=== PATIENT | male | born 1960 | race Caucasian/White ===

== ENCOUNTER 2016-07-10 11:23 | Inpatient (IN) | payer MEDICAID, OTHER ==
[~2016-07-10] VITALS: Ht 165.1 cm; Wt 60.0 kg
[~2016-07-10 11:23] MED LIST: ACID1TAB14 PO; AMLO-218 PO; CARV6.2579 PO; CIPR500T4 PO; DOXY100T2 PO; LANT3I SC; LAS20 PO; OMEP20CA16 PO
[2016-07-10 15:37] VITALS: BP 103/61; PULSE 66; RESP 19
[2016-07-10] MEDS ORDERED: ERGO500037 PO ×2 (17:04→17:17)
[2016-07-10] MEDS ORDERED: FER325 PO (17:04)
[2016-07-10] MEDS ORDERED: BUME1TAB18 PO (17:04)
[2016-07-10] MEDS ORDERED: TAMS0.4C2 PO (17:05)
[2016-07-10] MEDS ORDERED: FINA5TAB4 PO (17:05)
[2016-07-10] MEDS ORDERED: NIFE30TA60 PO (17:06)
[2016-07-10] MEDS ORDERED: NIFE60TA7 PO (17:10)
[2016-07-10] MEDS ORDERED: PANT40TA3 IV (17:11)
[2016-07-10] MEDS ORDERED: LORA0.5T IV* (17:12)
[2016-07-10] MEDS ORDERED: MORP2SYR IV (17:13)
[2016-07-10] MEDS ORDERED: ONDA-43 IV* (17:14)
[2016-07-10] MEDS ORDERED: ALBUTEROL/IPRATROPIUM (NEB) 3 ML AMP HHN PRN (17:30)
[2016-07-10] MEDS ORDERED: DEXTROSE 50% 50 ML SYRINGE IV PRN ×2 (17:30)
[2016-07-10] MEDS ORDERED: GLUCAGON 1 MG INJ IM PRN (17:30)
[2016-07-10] MEDS ORDERED: LORAZEPAM 2 MG INJ IV PRN (17:30)
[2016-07-10] MEDS ORDERED: NA PHOSPHATE/BIPHOS 133 ML ENEMA PR PRN (17:30)
[2016-07-10] MEDS ORDERED: MAGNESIUM HYDROXIDE 30ML CUP PO PRN (17:30)
[2016-07-10] MEDS ORDERED: NACL 0.9% 3 ML SYG IV SCH (17:30)
[2016-07-10] MEDS ORDERED: GLUCOSE GEL 15 GRAM TUBE BUCCAL PRN (17:30)
[2016-07-10] MEDS ORDERED: NITROGLYCERIN (SL) 0.4 MG TAB SL PRN (17:30)
[2016-07-10] MEDS ORDERED: ACETAMINOPHEN 325 MG TAB PO PRN (17:30)
[2016-07-10] MEDS ORDERED: GLUCOSE GEL 15 GRAM TUBE PO PRN ×2 (17:30)
[2016-07-10] MEDS ORDERED: DOCUSATE SODIUM 100 MG CAP PO PRN (17:30)
[2016-07-10] MEDS ORDERED: HYDROCODONE/APAP (5/325) TAB PO PRN (17:30)
[2016-07-10] MEDS: morphine 2 MG INJ IV PRN ×2 (18:27→22:21)
[2016-07-10] MEDS ORDERED: VANCOMYCIN IV PER PHARMACY XX SCH (18:30)
[2016-07-10 18:41] LABS: INR 1.17; PARTIAL THROMBOPLASTIN TIME 32.7 Sec (25.0-35.0); PT RATIO 1.2
--- NOTE | 2016-07-10 19:21 | HP ---
DATE OF ADMISSION: 07/10/2016 REASON FOR ADMISSION: A 56-year-old male sent over from an outside hospital due to insurance purposes for sepsis, urinary tract infection, and spinal abscess. HISTORY OF PRESENT ILLNESS: A 56-year-old male with past medical history of type 2 diabetes, essential hypertension, and possible liver cirrhosis, who was recently treated at [facility] and transferred here today/ He was there from 07/07/2014 until today, was being treated for sepsis secondary to UTI , positive enterococcus urine culture. Also, renal insufficiency and also spinal abscess. Most of the information is obtained from the transfer documentation. The patient gives a limited history. He had an MRI of the L- spine performed over there that did show diskitis and osteomyelitis in the L2- L3 region. There is a 1.8-cm left psoas abscess, probable epidural phlegmon abscess in the L2-L3 region. As well, he had a CT abdomen and pelvis performed that showed third spacing throughout the body and L3 vertebral body fracture and deterioration, with sclerosis as well. The patient was given IV antibiotics including Zosyn and vancomycin there, as well as blood pressure medicines. Presently, he says he is having some lower extremity pain, but is able to move his extremities and has been voiding, although he says he may have been passing blood clots over there. He also had some abnormal labs over there including a BNP of 44,000, and a chest x-ray did show a 2-mm granuloma in the left lower lobe as well. PAST MEDICAL HISTORY: As stated above. ALLERGIES: NO KNOWN DRUG ALLERGIES. MEDICATIONS: At the outside hospital include: 1. Iron sulfate 325 mg. 2. Flomax 0.4 mg. 3. Nifedipine 30 mg at night and 60 mg in the morning. 4. [place] p.r.n. 5. Omeprazole 20 mg. 6. Bumex 1 mg p.o. 7. Vancomycin IV dosing per pharmacy. 8. Morphine 1 mg IV q. 4 p.r.n. 9. Ativan p.r.n. 10. Tylenol 650 p.o. q.6h. p.r.n. 11. Ergocalciferol. 12. He was also on finasteride. SOCIAL HISTORY: Former alcohol user, never smoked. No IV drug abuse. Used to live at home with his sister. FAMILY HISTORY: Noncontributory. PHYSICAL EXAMINATION: VITAL SIGNS: T-max 98.5, pulse 66, respirations 19, blood pressure 103/61, saturating 100% on room air. GENERAL: The patient is lying in bed, answering questions appropriately, slightly lethargic but alert. HEENT: Pupils equal, round, react to light. Extraocular muscles are intact. NECK: Supple, no thyromegaly. LUNGS: Clear to auscultation bilaterally. CARDIOVASCULAR: S1, S2 heard. No rubs or gallops. ABDOMEN: Soft, nontender, nondistended. Normal bowel sounds. No rebound or guarding. MUSCULOSKELETAL: 1+ pitting edema bilateral lower extremities to the mid calves. NEUROLOGIC: Weak lower extremities, but able to move all extremities. No signs of any focal deficits. Sensation appears to be intact bilateral lower extremities and upper extremities. Gait was not assessed. LABS: On 07/09/2016, his WBC was 3.2, hemoglobin 7.2, hematocrit 22, and platelets were 74. His UA on July 08 was positive for nitrites and was turbid and was positive for large leukocyte esterase as well, and there was some blood noted. His urine culture is greater than 100,000, apparently Enterobacter. Do not have sensitivities. We mentioned the imaging result studies as mentioned above. Lipase was normal on 07/08/2016. His BNP on 2016 was 44,568. ASSESSMENT AND PLAN: This is a 56-year-old male transferred from outside hospital due to sepsis secondary to urinary tract infection, enterococcus, and renal insufficiency, questionable history of hypertension, diabetes, and cirrhosis, and also now with a spinal abscess. 1. Sepsis. Again, most likely secondary to combination of urinary tract infection and possible spinal abscess. Spoke with the neurosurgery team. For now, we are going to do conservative management as the patient does not appear to have any focal deficits or signs of any significant spinal stenosis. There is some mild stenosis seen on the imaging; however, patient is neurologically intact at this point, and he is urinating. We will follow up neurosurgery recommendations. May repeat the MRI of the L-spine as well. Will continue broad-spectrum antibiotics, cefepime and vancomycin, and get an infectious disease consult as well. This will treat both the UTI and hopefully the spinal abscess. Will check TSH, A1c, and lipid panel as well. Will also get a renal consult given his renal insufficiency. Continue Bumex for now given his anasarca. May need to workup his questionable liver cirrhosis that was seen on the imaging study. It is unclear if the patient has had a prior history of cirrhosis. 2. For his diabetes type 2, put him on sliding scale insulin. Check A1c. 3. Hypertension, Blood pressure stable. Continue current medications. 4. History of anemia. Last hemoglobin known is 7.2. Will check repeat, check a stat CBC. If there are any abnormalities, will give him blood transfusion. 5. Questionable hematuria. Will continue to monitor for now. 6. Gastrointestinal prophylaxis; PPIs. 7. Deep venous thrombosis prophylaxis; SCDs. Dictated By: PHANI STOVALL Conf#: [id number] DID#: [id number] MTDD
[2016-07-10 19:25] LABS: BASOPHILS % 0.4 % (0.0-2.0); EOSINOPHILS # 0.1 10^3/ul (0.0-0.5); EOSINOPHILS % 2.5 % (0.0-7.0); HEMATOCRIT 21.2 % (42.0-52.0); HEMOGLOBIN 7.2 g/dl (14.0-18.0); LYMPHOCYTES # 1.2 10^3/ul (0.8-2.9); LYMPHOCYTES % 37.3 % (15.0-51.0); MEAN CORPUSCULAR HEMOGLOBIN 29.4 pg (29.0-33.0); MEAN CORPUSCULAR HGB CONC 33.8 g/dl (32.0-37.0); MEAN CORPUSCULAR VOLUME 86.8 fl (82.0-101.0); MONOCYTE # 0.2 10^3/ul (0.3-0.9); MONOCYTES % 7.2 % (0.0-11.0); NEUTROPHIL # 1.6 10^3/ul (1.6-7.5); NEUTROPHILS % 52.6 % (39.0-77.0); PLATELET COUNT 112 10^3/UL (140-440); RED BLOOD COUNT 2.44 10^6/ul (4.70-6.10); RED CELL DISTRIBUTION WIDTH 17.4 % (11.5-14.5); UNCORRECTED WBC 3.1 10^3/ul (4.8-10.8); WHITE BLOOD COUNT 3.1 10^3/ul (4.8-10.8)
[2016-07-10 19:37] LABS: CONDITION 1; LH ANALYZER COMMENTS 1
[2016-07-10 20:00] LABS: ADD UMIC YES; URINE BILIRUBIN (Dip) NEGATIVE (NEGATIVE); URINE BLOOD (Dip) 2+ (NEGATIVE); URINE COLOR LT. YELLOW (YELLOW); URINE GLUCOSE (Dip) NEGATIVE (NEGATIVE); URINE KETONES (Dip) NEGATIVE (NEGATIVE); URINE LEUKOCYTE ESTERASE (Dip) 1+ (NEGATIVE); URINE NITRITE (Dip) NEGATIVE (NEGATIVE); URINE TOTAL PROTEIN (Dip) 2+ (NEGATIVE); URINE UROBILINOGEN (Dip) 0.2 E.U./dL (0.1-1.0)
[2016-07-10 20:24] LABS: BACTERIA,URINE FEW; SQUAMOUS EPITHELIAL CELL,UR MODERATE
[2016-07-10] MEDS: INSULIN ASPART [NOVOLOG] 3 ML PEN SC SCH (21:00)
[2016-07-10 21:03] VITALS: BP 146/70; RESP 16
[2016-07-10] MEDS: CEFEPIME 2GM/50 ML (PMX) 50 ML IVPB SCH (21:25)
[2016-07-10 21:29] LABS: IRON 43 ug/dl (35-150)
[2016-07-10] MEDS: LACTOBACILLUS CHEW TAB PO SCH (21:29)
[2016-07-10 21:38] LABS: TOTAL IRON BINDING CAPACITY 163 ug/dl (241-421)
[2016-07-10] MEDS: INSULIN GLARGINE [LANtus] 3 ML PEN SC SCH (21:51)
[2016-07-10 22:27] VITALS: BP 141/86; PULSE 67
[2016-07-11] MEDS: INSULIN ASPART [NOVOLOG] 3 ML PEN SC SCH ×6 (01:00→21:00)
--- NOTE | 2016-07-11 01:43 | RADRPT ---
PROCEDURE: CT lumbar spine without contrast CLINICAL INDICATION: Back pain. TECHNIQUE: A CT scan of the lumbar spine was performed without intravenous contrast. Coronal and s agittal reformatted images were generated. CTDIvol: 10.75 mGy. DLP: 425.51 mGy-cm. COMPARISON: None available FINDINGS: The lumbar lordosis is preserved without spondylolisthesis. The vertebral body heights are maintain ed. No fracture or subluxation is identified. T12-L1 and L1-L2: There is no significant degenerative change. No spinal canal stenosis or neural f oraminal narrowing is seen. L2-L3: There is mild disk bulging at this level and increased lucency in the central disk substance. Lytic lucencies are seen in the adjacent L2 and L3 vertebral bodies, and the L3 vertebral body is sclerotic. There is no spinal canal stenosis at this level. Mild left neural foraminal narrowing is noted due to disk bulging. L3-L4 and L4-L5: There is no significant degenerative change. No spinal canal stenosis or neural fo raminal narrowing is seen. L5-S1: There are bilateral L5 pars defects, grade 1 L5 anterolisthesis (6 mm), and moderate bilatera l neural foraminal narrowing at L5-S1. No spinal canal stenosis is seen at this level. The left psoas muscle is asymmetrically enlarged. There are multiple pancreatic calcifications, cons istent with chronic pancreatitis. . IMPRESSION: 1. At L2-L3, there is lucency in the central disk substance, lytic lucencies in the adjacent L2 and L3 vertebral bodies, and sclerosis of the L3 vertebral body. These findings are suspicious for dis kitis osteomyelitis. There is also asymmetric enlargement of the left psoas muscle, suspicious for myositis. An epidural or paraspinal abscess cannot be excluded. Correlation with contrast enhanced l umbar spine MRI is recommended. 2. Bilateral L5 pars defects, grade 1 L5 anterolisthesis, and moderate bilateral neural foraminal n arrowing at L5-S1. 3. Chronic pancreatitis. RPTAT: HTAR .Dejuan Gibbs MD, MD Date Time Electronically viewed and signed by .Dejuan Gibbs MD, on 07/11/2016 01:43 .R/
[2016-07-11] MEDS: morphine 2 MG INJ IV PRN ×6 (02:22→23:38)
--- NOTE | 2016-07-11 02:28 | RADRPT ---
PROCEDURE: MR Lumbar Spine. CLINICAL INDICATION: Back pain. TECHNIQUE: An MRI of the lumbar spine was performed without intravenous contrast. Sagittal T2, sag ittal T1, sagittal fat suppressed T2, axial proton density, axial T2-weighted images were obtained. The examination was performed on a 3.0 Senait MRI scanner. COMPARISON: Lumbar spine CT performed on the same date. FINDINGS: The examination is extremely limited by signal loss and artifact related to radiofrequency coil malf unction. There is abnormal T2 hyperintensity within the posterior inferior L2 vertebral body, corresponding t o the lytic lucency seen on the lumbar spine CT. There are bilateral L5 pars defects, grade 1 L5 ant erolisthesis, and mild to moderate bilateral neural foraminal narrowing at L5-S1. IMPRESSION: 1. Extremely limited examination due to signal loss and artifact related to radiofrequency coil malf unction. The L2-L3 level is inadequately imaged. A repeat contrast-enhanced lumbar spine MRI is re commended to evaluate for suspected L2-L3 diskitis osteomyelitis and left psoas myositis. 2. Bilateral L5 pars defects, grade 1 L5 anterolisthesis, and mild to moderate bilateral neural fora fred narrowing at L5-S1. RPTAT: HTAR .Dejuan Gibbs MD, MD Date Time Electronically viewed and signed by .Dejuan Gibbs MD, on 07/11/2016 02:27 .R/
[2016-07-11] MEDS: PANTOPRAZOLE 40 MG INJ IV SCH (05:21)
[2016-07-11 07:30] VITALS: BP 171/94; RESP 17
[2016-07-11] MEDS: BUMETANIDE 1 MG TAB PO SCH (08:46)
[2016-07-11] MEDS: FERROUS SULFATE (EC) 325 MG TAB PO SCH (08:46)
[2016-07-11] MEDS: AMLODIPINE 10 MG TAB PO SCH (08:46)
[2016-07-11] MEDS: LACTOBACILLUS CHEW TAB PO SCH ×3 (08:46→21:34)
[2016-07-11] MEDS ORDERED: FUROSEMIDE 20 MG TAB PO SCH (09:00)
--- NOTE | 2016-07-11 09:24 | CONS ---
DATE OF ADMISSION: 07/10/2016 DATE OF CONSULTATION: 07/10/2016 TYPE OF CONSULTATION: Infectious Disease. REASON FOR CONSULTATION: Antibiotic management. HISTORY OF PRESENT ILLNESS: Larry Rios is a 56-year-old unfortunate male who was transf erred from [facility] with a variety of problems and is being seen for antibiotic managem ent. Past problems include: 1. Adult-onset diabetes mellitus. 2. Essential hypertension. 3. Alcoholic cirrhosis of the liver. The patient was recently treated at [facility] from 07/07/2016 until 07/10/2016. He was treated for sepsis secondary to urinary tract infection which was positive for enterococcus. He als o had spinal abscess as well as renal insufficiency. He had an MRI of the L-spine that showed diski tis and osteomyelitis of L2-L3 region. There was 1.8 cm left psoas abscess, probable epidural phleg mon abscess in the L2-L3 region. He had a CT scan of the abdomen and pelvis which was performed nolberto t showed third spacing throughout the body and L3 vertebral body fracture with deterioration and scl erosis. The patient was started on vancomycin and Zosyn as well as blood pressure medication. He i s having some lower extremity pain and is able to move his extremities and has been voiding, althoug h he may have been passing blood clots in his urine. He had a BNP of 44,000. Chest x-ray showed a 2 mm granuloma in the left lower lobe. On 07/09/2016 his white count was 3.2, H and H was 7.2 and 2 2, platelet count 74,000. UA on the was positive for nitrite, was turbid, positive for large l eukocyte esterase with blood noted. His urine grew greater than 10 to the 5th Enterobacter. PAST MEDICAL HISTORY: Operations as outlined. FAMILY HISTORY: Noncontributory. SOCIAL HISTORY: He is a former alcohol abuser, did not smoke, no IV drug abuse. ALLERGIES: NONE TO PENICILLIN, SULFA OR FOODS. MEDICATIONS: Per chart. REVIEW OF SYSTEMS: Noncontributory. PHYSICAL EXAMINATION: GENERAL: The patient is a chronically ill-appearing male who is lying in bed in no acute distress. VITAL SIGNS: Stable. He is afebrile. SKIN: Without generalized rash. HEENT: Within normal limits. NECK: Supple. LYMPH NODES: None palpable. CHEST: Decreased breath sounds at the bases. HEART: Without murmur or gallop. ABDOMEN: Soft, nontender, without organosplenomegaly or masses. EXTREMITIES: He has edema in bilateral lower extremities that goes to the mid calf. RECTAL AND GENITAL: Deferred. NEUROLOGIC: He has some weakness in his lower extremities but has no focal neurological abnormaliti es. IMPRESSION AND PLAN: The patient has sepsis secondary to a combination of urinary tract infection a nd spinal epidural abscess. The neurosurgical team was contacted. He has some mild stenosis, but i s intact at the present time. I think we should encourage neurosurgery to be aggressive in terms of his epidural abscess and will continue him on vancomycin and cefepime. He should have some drainag e of the fluid collections, the abscesses either by invasive radiology or by neurosurgery. I will d ictate my findings to the hospitalist. Dictated By: PARDEEP VAZQUEZ MD, JD/ERICKA Conf#: [id number] DID#: [id number]
[2016-07-11 10:08] LABS: BASOPHILS % 0.5 % (0.0-2.0); EOSINOPHILS # 0.1 10^3/ul (0.0-0.5); EOSINOPHILS % 3.8 % (0.0-7.0); HEMATOCRIT 27.4 % (42.0-52.0); HEMOGLOBIN 9.3 g/dl (14.0-18.0); LYMPHOCYTES % 30.1 % (15.0-51.0); MEAN CORPUSCULAR HEMOGLOBIN 29.5 pg (29.0-33.0); MEAN CORPUSCULAR HGB CONC 34.1 g/dl (32.0-37.0); MEAN CORPUSCULAR VOLUME 86.5 fl (82.0-101.0); MEAN PLATELET VOLUME 6.9 fl (7.4-10.4); MONOCYTE # 0.2 10^3/ul (0.3-0.9); MONOCYTES % 7.1 % (0.0-11.0); NEUTROPHIL # 1.9 10^3/ul (1.6-7.5); NEUTROPHILS % 58.5 % (39.0-77.0); PLATELET COUNT 118 10^3/UL (140-440); RED BLOOD COUNT 3.16 10^6/ul (4.70-6.10); RED CELL DISTRIBUTION WIDTH 16.6 % (11.5-14.5); UNCORRECTED WBC 3.2 10^3/ul (4.8-10.8); WHITE BLOOD COUNT 3.2 10^3/ul (4.8-10.8)
[2016-07-11 10:13] LABS: CONDITION 1; LH ANALYZER COMMENTS 1
[2016-07-11 10:27] LABS: POTASSIUM 5.2 mmol/L (3.5-5.1)
[2016-07-11 10:30] LABS: CALCIUM 7.5 mg/dl (8.4-10.2); CREATININE 2.51 mg/dl (0.61-1.24); PHOSPHORUS 5.1 mg/dl (2.5-4.9)
[2016-07-11 10:31] LABS: CHOL/HDL RATIO 2.2 RATIO; MAGNESIUM 1.9 mg/dl (1.7-2.5)
--- NOTE | 2016-07-11 12:18 | PREOPHP ---
DATE OF ADMISSION: 07/10/[address] Reyes, for asking me to participate in medical management of this patient. HISTORY OF PRESENT ILLNESS: This 56-year-old man was transferred from [facility] because of a lumbar spine diskitis and possible abscess. The patient is Vietnamese speaking and unable to giv e much of a history; however, from previous notes it says that the patient also has a history of a u rinary tract infection. I know the patient from a previous admission here in February of 2016 when he was admitted because of substernal chest pain and shortness of breath. The patient during his admission was discharged on 03/27/2016 and his serum creatinine was 2.2 with a BUN of 53. Previo us to that in 07/2015, he had a serum creatinine of 1.75. This patient has chronic kidney disease d ue to diabetic nephropathy. He has nephrotic range proteinuria with a urine protein creatinine rati o done in February of 5 grams of protein per gram of creatinine. The patient was apparently admitted to [facility] after being admitted there on 07/07/2016 and was being treated for a urina ry tract infection. The patient apparently is having some lower extremity pain and is having diffic ulty moving his legs. The patient was seen by a music copyist at [facility], Dr. Pizano. He was then transferred here yesterday. The patient now has a serum creatinine of 2.51 today. The patient is having some low back pain and difficulty moving his legs. CURRENT MEDICATIONS: Include the followin. Vancomycin. 2. Amlodipine 10 mg a day. 3. Bumex 1 mg a day. 4. Ferrous sulfate 325 mg a day. 5. Pantoprazole 40 mg a day. 6. Insulin coverage. 7. Carvedilol 6.25 mg twice a day. 8. Lantus insulin daily. 9. Florinex. 10. Cefepime. 11. Zofran. 12. Acetaminophen. 13. [place]. 14. Morphine. 15. Docusate sodium. 16. Hydralazine. 17. Clonidine p.r.n. PAST MEDICAL HISTORY: Remarkable for hypertension, diabetes mellitus, diabetic retinopathy. He has a history of a detached retina in the left eye. Anemia. PAST SURGICAL HISTORY: Left eye surgery. FAMILY HISTORY: No history of kidney disease or heart disease. SOCIAL HISTORY: The patient does not drink alcohol, smoke cigarettes or use illicit drugs. PHYSICAL EXAMINATION: GENERAL: At this time reveals an ill-appearing man in no apparent distress. VITAL SIGNS: Temperature 96.6, pulse is 60, respirations 17, blood pressure 171/94, O2 saturation o f 98%. HEENT: Head normocephalic. EYES: Extraocular muscles intact. NOSE AND MOUTH: Normal. NECK: Supple, no neck vein distention. LUNGS: Clear to auscultation. HEART: Regular rhythm. No murmurs, gallops or rubs. ABDOMEN: Soft, slightly tender. No masses or megaly. EXTREMITIES: There is trace to +1 pretibial edema. IMPRESSION: 1. Chronic kidney disease due to diabetic nephropathy with acute renal failure superimposed. 2. Urinary tract infection growing enterococcus. 3. Anemia of chronic disease, having gotten blood transfusion yesterday. 4. Lumbar 2 to lumbar 3 diskitis with a left psoas abscess. 5. Hypertension. 6. Insulin-dependent diabetes mellitus. PLAN: 1. Chest x-ray, EKG. 2. Monitor daily renal function. 3. Avoid nephrotoxic medications. 4. Continue current diuretics, although he is not as swollen as he was during his last admission. 5. I will follow the patient along with you. Dictated By: JACOB WHEELER MD, ND/ERICKA Conf#: [id number] DID#: [id number] CC: PHANI REYES;*EndCC*
--- NOTE | 2016-07-11 12:31 | RADRPT ---
Echocardiogram Report Patient Name: VAHE ALAS Gender: Male Date: 1960 Study Date: 11-Jul-2016 Clinical Unit Coordinator: Saw Gee RDCS Location: [facility] Ref. Physician: PHANI REYES Quality: Good Procedures: Transthoracic echocardiogram with complete 2D, M-Mode, and doppler examination. Indications: Chest Pain. 2D/M Mode Doppler Measurement Value Normal Ranges Measurement Value Normal Ranges LVIDd 2D 4.7 3.5 - 5.6 cm AV Peak Devin 1.0 m/sec LVIDs 2D 2.6 2.1 - 4.1 cm AV Peak PG 3.9 mmHg LVPWd 2D 1.2 0.6 - 1.1 cm LVOT Peak Devin 0.9 m/sec IVSd 2D 1.3 0.6 - 1.1 cm LVOT Peak PG 3.0 mmHg AoR Diam 2D 2.9 2.0 - 3.7 cm MV E Peak Devin 0.4 m/sec EDV 2D 104.9 cm3 MV A Peak Devin 0.7 m/sec ESV 2D 17.5 cm3 MV E/A 0.6 LA Dimen 2D 3.9 2.3 - 4.0 cm MV Decel Time 183 msec MV Decel Lee 2 MV E/A 0.6 TR Peak Devin 2.8 m/sec TR Peak PG 31.4 mmHg RVSP 34.0 mmHg Findings Left Ventricle: Normal left ventricular systolic function. Normal left ventricular cavity size. Mild concentric left ventricular hypertrophy. Ejection fraction is visually estimated at 55 %. Tissue Doppler/Mitral Doppler indices are consistent with impaired relaxation (Stage I diastolic dysfunction). Right Ventricle: Normal right ventricular size. Normal right ventricular systolic function. Left Atrium: There is mild enlargement of left atrium. Right Atrium: The right atrium is normal in size. Mitral Valve: Mild mitral annular calcification. Mild mitral valve regurgitation. Aortic Valve: No significant aortic stenosis or insufficiency. Aortic cusps appear mildly calcified. Tricuspid Valve: Normal appearance of the tricuspid valve. Estimated peak PA systolic pressure 34 mmHg. There is mild tricuspid regurgitation. Pulmonic Valve: Normal pulmonic valve appearance. Pericardium: Small to moderate sized mostly posterior pericardial effusion measuring up to 1.5cm and without echocardiographic evidence of tamponade physiology. Aorta: Normal aortic root. IVC: Normal size and normal respiratory collapse consistent with normal right atrial pressure. Conclusions Normal left ventricular systolic function. Normal left ventricular cavity size. Mild concentric left ventricular hypertrophy. Ejection fraction is visually estimated at 55 %. Tissue Doppler/Mitral Doppler indices are consistent with impaired relaxation (Stage I diastolic dysfunction). No significant valvular stenosis or regurgitation seen. Small to moderate sized mostly posterior pericardial effusion measuring up to 1.5cm and without echocardiographic evidence of tamponade physiology. Estimated peak PA systolic pressure 34 mmHg based on RA pressure of 3 mmHg. Electronically Signed By: Mak Burt 11-Jul-2016 12:30:03 -0800 Patient Name: VAHE ALAS Study Date: 11-Jul-2016 [id number]
--- NOTE | 2016-07-11 13:26 | RADRPT ---
PROCEDURE: CHEST 1VW CLINICAL INDICATION: Cough TECHNIQUE: Single frontal view of the chest was obtained COMPARISON: 03/25/2016 FINDINGS: The cardiac size is normal. Aortic vascular calcifications are demonstrated. There is no pulmonary vascular congestion. Bibasilar atelectasis. The lungs are otherwise clear. No consolidation, effusion, or pneumothorax. Mild degenerative changes of the visualized osseous structures are visualized. IMPRESSION: 1. No acute cardiopulmonary process. 2. Atherosclerosis. RPTAT:PP .Saturnino Orantes MD, Date Time Electronically viewed and signed by .Saturnino Orantes MD, on 07/11/2016 13:25 .V/
--- NOTE | 2016-07-11 13:37 | RADRPT ---
Vent Rate: 67 bpm RR Interval: 0 msec ID Interval: 170 msec QRS Duration: 82 msec QT Interval: 444 msec QTC Interval: 469 msec P-R-T Warren[place]: 50 - 12 - 117 degrees Normal sinus rhythm Nonspecific T wave abnormality Prolonged QT Abnormal ECG Electronically Signed By: Juanito Luevano [id number]
[2016-07-11] MEDS: VANCOMYCIN 500MG/NS (PMX) 100 ML IVPB SCH (14:01)
--- NOTE | 2016-07-11 14:14 | PN ---
DATE: 07/11/2016 SUBJECTIVE: No acute changes. The patient is eating lunch, looks comfortable, no fevers. He has m ild back pain. LABORATORY: WBC 3.2, platelets 118, no shift, no bands. BUN 31, creatinine 2.51. MICROBIOLOGY: Urine culture negative. DIAGNOSTICS: Chest x-ray this morning revealed no acute cardiopulmonary process. ANTIMICROBIALS: The patient is on: 1. IV vancomycin. 2. Cefepime. PHYSICAL EXAMINATION: GENERAL: This is a well-developed, middle-aged man who is awake, in no distress. HEENT: Head atraumatic, normocephalic. Sclerae anicteric. Buccal mucosa dry. NECK: Supple, trachea midline. CHEST: Rise symmetrical. Breath sounds clear. HEART: S1, S2. ABDOMEN: Soft, bowel tones present. EXTREMITIES: Without cyanosis. ASSESSMENT: 1. Lumbar diskitis with left psoas abscess. 2. Acute on chronic kidney disease. 3. Status post enterococcal urinary tract infection. 4. Anemia. 5. Hypertension. 6. Diabetes. PLAN: The patient remains stable. Scheduled for surgery today. Continue present care, antibiotics . Follow recommendations of consultants. If kidney function continues to worsen, we will change va ncomycin to another antibiotic. Dictated By: DORENE GARCIA [employer] DEPARTMENT for PARDEEP MATTA/ERICKA Conf#: [id number] DID#: [id number]
[2016-07-11 14:54] LABS: THYROID STIMULATING HORMONE 14.1 MIU/L (0.465-4.680)
[2016-07-11] MEDS ORDERED: NA POLYST SULFON 15 GM/60 ML BTL PO ONE (15:00)
--- NOTE | 2016-07-11 15:06 | PN ---
Date/Time of Note Date/Time of Note DATE: 07/11/16 TIME: 14:57 Assessment/Plan VTE Prophylaxis VTE Prophylaxis Intervention: SCD's Lines/Catheters IV [facility]from [facility] Urinary Cath still in place: No Assessment/Plan Chief Complaint/Hosp Course ASSESSMENT AND PLAN: 56-year-old male transferred from outside hospital due to sepsis secondary to urinary tract infection, enterococcus, and renal insufficiency, questionable history of hypertension, diabetes, and cirrhosis, and also now with a spinal abscess. 1. Sepsis. Again, most likely secondary to combination of urinary tract infection and spinal abscess = 1.8 cm left psoas abscess, probable epidural phlegmon abscess in the L2-L3 region. Patient does not appear to have any focal deficits or signs of any significant spinal stenosis. There is some mild stenosis seen on the imaging; however, patient is neurologically intact at this point, and he is urinating. - planning for possible neurosurgery intervention later today for abscess removal. EKG is NSR. If troponin is negative, pt is medically cleared for surgery. - continue broad-spectrum antibiotics, cefepime and vancomycin, This will treat both the UTI and hopefully the spinal abscess. - f/u infectious disease rec's. Will also get a renal consult given his renal insufficiency. - Continue Bumex for now given his anasarca. May need to workup his questionable liver cirrhosis that was seen on the imaging study. It is unclear if the patient has had a prior history of cirrhosis. 2. For his diabetes type 2 - A1c = 6.4 -, put him on sliding scale insulin. 3. Hypertension, Blood pressure stable. Continue current medications. 4. History of anemia - s/p pRBC transfusion yesterday 2 units - and H/H stable today - monitor 5. Questionable hematuria. Will continue to monitor for now. 6. Gastrointestinal prophylaxis; PPIs. 7. Deep venous thrombosis prophylaxis; SCDs. Problems: Subjective 24 Hr Interval Summary Free Text/Dictation Pt had pRBC transfusion yesterday. Seen by ID, renal, and NSS teams. Awaiting possible surgical intervention for abscess later today. Exam/Review of Systems Vital Signs Vitals Vital Signs Date Time Temp Pulse Resp B/P Pulse Ox O2 Delivery O2 Flow Rate FiO2 07/11/16 07:30 96.6 60 17 171/94 98 07/10/16 15:37 Room Air Intake and Output 07/10/16 07/10/16 07/11/16 15:00 23:00 07:00 Intake Total 50 ml 830 ml Output Total 900 ml Balance 50 ml -70 ml Exam GENERAL: The patient is lying in bed, answering questions appropriately, alert. HEENT: Pupils equal, round, react to light. Extraocular muscles are intact. NECK: Supple, no thyromegaly. LUNGS: Clear to auscultation bilaterally. CARDIOVASCULAR: S1, S2 heard. No rubs or gallops. ABDOMEN: Soft, nontender, nondistended. Normal bowel sounds. No rebound or guarding. MUSCULOSKELETAL: 1+ pitting edema bilateral lower extremities to the mid calves. NEUROLOGIC: Weak lower extremities, but able to move all extremities. No signs of any focal deficits. Sensation appears to be intact bilateral lower extremities and upper extremities. Gait was not assessed. Results Result Diagram: 07/11/16 0935 07/11/16 0935 Results 24 hrs Laboratory Tests Test 07/10/16 17:31 07/10/16 18:45 07/10/16 19:15 07/10/16 19:50 Activated Partial Thromboplast Time 32.7 Free Thyroxine 1.10 INR International Normalized Ratio 1.17 Prothrombin Time 15.0 H Prothrombin Time Ratio 1.2 Basophils # 0.0 Basophils % 0.4 Blood Morphology Comment Eosinophils # 0.1 Eosinophils % 2.5 Erythrocyte Sedimentation Rate 70 H Hematocrit 21.2 #L Hemoglobin 7.2 #L Lymphocytes # 1.2 Lymphocytes % 37.3 Mean Corpuscular Hemoglobin 29.4 Mean Corpuscular Hemoglobin Concent 33.8 Mean Corpuscular Volume 86.8 Mean Platelet Volume 7.0 L Monocytes # 0.2 L Monocytes % 7.2 Neutrophils # 1.6 Neutrophils % 52.6 Nucleated Red Blood Cells # 0.0 Nucleated Red Blood Cells % 0.0 Platelet Count 112 #L Red Blood Count 2.44 #L Red Cell Distribution Width 17.4 H White Blood Count 3.1 #L C-Reactive Protein 0.7 Urine Bacteria FEW Urine Bilirubin NEGATIVE Urine Clarity CLOUDY H Urine Color LT. YELLOW Urine Glucose NEGATIVE Urine Hemoglobin 2+ H Urine Hyaline Casts MODERATE Urine Ketones NEGATIVE Urine Leukocyte Esterase 1+ H Urine Microscopic RBC 10-25 Urine Microscopic WBC >200 Urine Nitrite NEGATIVE Urine Specific [place] 1.020 Urine Squamous Epithelial Cells MODERATE Urine Total Protein 2+ H Urine Urobilinogen 0.2 E.U./dL Urine Yeast MANY Urine pH 5.5 Test 07/10/16 20:50 07/11/16 07:50 07/11/16 08:29 07/11/16 09:11 Ferritin 528.0 H Iron Level 43 Percent Iron Saturation 26 Total Iron Binding Capacity 163 L Bedside Glucose 55 L 54 L 103 Test 07/11/16 09:35 07/11/16 09:42 07/11/16 11:48 07/11/16 12:26 Anion Gap 14 Basophils # 0.0 Basophils % 0.5 Blood Morphology Comment Blood Urea Nitrogen 31 H Calcium Level 7.5 L Carbon Dioxide Level 21 Chloride Level 109 Cholesterol Level 90 L Cholesterol/HDL Ratio 2.2 Creatinine 2.51 H Eosinophils # 0.1 Eosinophils % 3.8 Glucose Level 127 HDL Cholesterol 40 Hematocrit 27.4 #L Hemoglobin 9.3 #L Hemoglobin A1c 6.4 H LDL Cholesterol, Calculated 40 Lymphocytes # 1.0 Lymphocytes % 30.1 Magnesium Level 1.9 Mean Corpuscular Hemoglobin 29.5 Mean Corpuscular Hemoglobin Concent 34.1 Mean Corpuscular Volume 86.5 Mean Platelet Volume 6.9 L Monocytes # 0.2 L Monocytes % 7.1 Neutrophils # 1.9 Neutrophils % 58.5 Nucleated Red Blood Cells # 0.0 Nucleated Red Blood Cells % 0.0 Phosphorus Level 5.1 H Platelet Count 118 L Potassium Level 5.2 H Red Blood Count 3.16 #L Red Cell Distribution Width 16.6 H Sodium Level 139 Thyroid Stimulating Hormone (TSH) 14.100 H Triglycerides Level 49 White Blood Count 3.2 L Bedside Glucose 150 164 Urine Protein/Creatinine Ratio Urine Random Creatinine Urine Total Protein Medications Medications Current Medications Ondansetron HCl (Zofran Inj) 4 mg Q6H PRN IV NAUSEA AND/OR VOMITING; Start at 17:30 Acetaminophen (Tylenol Tab) 650 mg Q6H PRN PO PAIN LEVEL 1-3 OR FEVER; Start at 17:30 Acetaminophen/ Hydrocodone Bitart ([place] (5/325)) 1 tab Q6H PRN PO MODERATE PAIN LEVEL 4-6; Start 07/10/16 at 17:30 Morphine Sulfate (morphine) 2 mg Q4H PRN IV SEVERE PAIN LEVEL 7-10 Last administered on 07/11/16t 14:11; Admin Dose 2 MG; Start 07/10/16 at 17:30 Docusate Sodium (Colace) 100 mg Q12H PRN PO CONSTIPATION; Start 07/10/16 at 17: 30 Pantoprazole (Protonix Iv) 40 mg DAILY@06 IV Last administered on 07/11/16 05: 21; Admin Dose 40 MG; Start 07/11/16 at 06:00 Lorazepam (Ativan) 0.5 mg Q6H PRN IV ANXIETY; Start 07/10/16 at 17:30 Hydralazine HCl (Apresoline) 10 mg Q6H PRN IV ELEVATED BLOOD PRESSURE; Start at 17:30 Clonidine (Catapres) 0.1 mg Q6H PRN PO ELEVATED BLOOD PRESSURE; Start 07/10/16 at 17:30 Nitroglycerin (Nitroglycerin (Sl Tab) 0.4 Mg) 1 tab Q5M PRN SL ANGINA; Start at 17:30 Insulin Aspart (Novolog Insulin Pen) NOVOLOG *MILD* ALGORI... Q4 SC Last administered on 07/11/16 12:19; Admin Dose 1 UNIT; Start 07/10/16 at 21:00 Amlodipine Besylate (Norvasc) 10 mg DAILY PO Last administered on 07/11/16 08: 46; Admin Dose 10 MG; Start 07/11/16 at 09:00 Bumetanide (Bumex) 1 mg DAILY PO Last administered on 07/11/16 08:46; Admin Dose 1 MG; Start 07/11/16 at 09:00 Carvedilol (Coreg) 6.25 mg BID PO Last administered on 07/11/16 08:46; Admin Dose 6.25 MG; Start 07/10/16 at 21:00 Ferrous Sulfate (Ferrous Sulfate (Ec)) 325 mg DAILY PO Last administered on 08:46; Admin Dose 325 MG; Start 07/11/16 at 09:00 Insulin Glargine (Lantus) 7 unit QHS SC Last administered on 07/10/16 21:51; Admin Dose 7 UNIT; Start 07/10/16 at 21:00 Lactobacillus Acidoph/Bulgaricus (Floranex) 1 tab TID PO Last administered on 12:18; Admin Dose 1 TAB; Start 07/10/16 at 21:00 Miscellaneous Information 1 ea NOTE XX ; Start 07/10/16 at 17:30 Glucose (Glutose) 15 gm Q15M PRN PO DECREASED GLUCOSE; Start 07/10/16 at 17:30 Glucose (Glutose) 22.5 gm Q15M PRN PO DECREASED GLUCOSE; Start 07/10/16 at 17: 30 Dextrose (D50w Syringe) 25 ml Q15M PRN IV DECREASED GLUCOSE; Start 07/10/16 at 17:30 Dextrose (D50w Syringe) 50 ml Q15M PRN IV DECREASED GLUCOSE Last administered on 07/11/16 05:05; Admin Dose 50 ML; Start 07/10/16 at 17:30 Glucagon (Glucagen) 1 mg Q15M PRN IM DECREASED GLUCOSE; Start 07/10/16 at 17:30 Glucose 15 gm 15 gm Q15M PRN BUCCAL DECREASED GLUCOSE; Start 07/10/16 at 17:30 Cefepime HCl 50 ml @ 100 mls/hr Q24H IVPB Last administered on 07/10/16 21:25 ; Admin Dose 100 MLS/HR; Start 07/10/16 at 21:00 Vancomycin HCl (Vancocin) 100 ml @ 100 mls/hr Q24H IVPB Last administered on 14:01; Admin Dose 100 MLS/HR; Start 07/11/16 at 13:30 Epoetin Mauricio (Epogen (Esrd)) 10,000 units MoWeFr@17 SC ; Start 07/11/16 at 17:00 Sodium Polystyrene Sulfonate (Kayexalate) 15 gm ONCE ONCE PO ; Start 07/11/16 at 15:00; Stop 07/11/16 at 15:01 PHANI REYES Jul 11, 2016 15:06
[2016-07-11] MEDS ORDERED: EPOETIN 10000 UNITS/1 ML INJ (ESRD) SC SCH (17:00)
[2016-07-11 20:58] VITALS: BP 110/64; RESP 18
[2016-07-11] MEDS: CEFEPIME 2GM/50 ML (PMX) 50 ML IVPB SCH (21:33)
[2016-07-11] MEDS: INSULIN GLARGINE [LANtus] 3 ML PEN SC SCH ×2 (23:11→23:28)
[2016-07-12] VITALS (16 sets, daily range): BP systolic 124–162; BP diastolic 66–83; PULSE 48–53; RESP 7–20
[2016-07-12] MEDS: INSULIN ASPART [NOVOLOG] 3 ML PEN SC SCH ×5 (02:17→22:23)
[2016-07-12] MEDS: morphine 2 MG INJ IV PRN ×4 (03:31→18:53)
[2016-07-12] MEDS: PANTOPRAZOLE 40 MG INJ IV SCH (05:32)
[2016-07-12] MEDS: ONDANSETRON 4 MG INJ IV PRN ×2 (07:53→23:41)
[2016-07-12] MEDS: LACTOBACILLUS CHEW TAB PO SCH ×3 (08:01→21:00)
[2016-07-12] MEDS: AMLODIPINE 10 MG TAB PO SCH (08:01)
[2016-07-12] MEDS: BUMETANIDE 1 MG TAB PO SCH (08:01)
[2016-07-12] MEDS: FERROUS SULFATE (EC) 325 MG TAB PO SCH (08:01)
[2016-07-12 08:26] LABS: BASOPHILS % 0.5 % (0.0-2.0); EOSINOPHILS # 0.1 10^3/ul (0.0-0.5); EOSINOPHILS % 3.5 % (0.0-7.0); HEMATOCRIT 27.3 % (42.0-52.0); HEMOGLOBIN 9.4 g/dl (14.0-18.0); LYMPHOCYTES # 0.9 10^3/ul (0.8-2.9); LYMPHOCYTES % 29.9 % (15.0-51.0); MEAN CORPUSCULAR HEMOGLOBIN 29.7 pg (29.0-33.0); MEAN CORPUSCULAR HGB CONC 34.5 g/dl (32.0-37.0); MEAN CORPUSCULAR VOLUME 85.9 fl (82.0-101.0); MONOCYTE # 0.3 10^3/ul (0.3-0.9); MONOCYTES % 8.7 % (0.0-11.0); NEUTROPHIL # 1.8 10^3/ul (1.6-7.5); NEUTROPHILS % 57.4 % (39.0-77.0); PLATELET COUNT 126 10^3/UL (140-440); RED BLOOD COUNT 3.18 10^6/ul (4.70-6.10); RED CELL DISTRIBUTION WIDTH 16.4 % (11.5-14.5); UNCORRECTED WBC 3.1 10^3/ul (4.8-10.8); WHITE BLOOD COUNT 3.1 10^3/ul (4.8-10.8)
[2016-07-12 08:31] LABS: ALBUMIN 2.8 g/dl (3.3-4.9)
[2016-07-12 08:32] LABS: POTASSIUM 5.3 mmol/L (3.5-5.1)
[2016-07-12 08:34] LABS: BILIRUBIN,INDIRECT 0.2 mg/dl (0-1.1); BILIRUBIN,TOTAL 0.2 mg/dl (0.2-1.3); CREATININE 2.72 mg/dl (0.61-1.24)
[2016-07-12 08:35] LABS: ALBUMIN/GLOBULIN RATIO 0.73; CALCIUM 7.4 mg/dl (8.4-10.2); CONDITION 1; LH ANALYZER COMMENTS 1; PHOSPHORUS 5.5 mg/dl (2.5-4.9); TOTAL PROTEIN 6.6 g/dl (6.1-8.1)
[2016-07-12] MEDS ORDERED: SOD CHLORIDE 0.9% 1,000 ML IV SCH (10:00)
--- NOTE | 2016-07-12 10:02 | CONS ---
Date/Time of Note Date/Time of Note DATE: 07/12/16 TIME: 10:00 Assessment/Plan Assessment/Plan Additional Assessment/Plan 1. Mild decline in renal fx, will hold diuretic and start slow ns as npo today 2. Spinal abscess, surgery planned today, abx per id Consultation Date/Type/Reason Admit Date/Time Jul 10, 2016 at 15:03 Initial Consult Date Detailed Summary Respiratory: No shortness of breath Cardiovascular: No chest pain Gastrointestinal: no complaints Musculoskeletal: back pain Exam/Review of Systems Vital Signs Vitals Vital Signs Date Time Temp Pulse Resp B/P Pulse Ox O2 Delivery O2 Flow Rate FiO2 07/12/16 07:20 98.8 61 18 135/66 96 07/10/16 15:37 Room Air Intake and Output 07/11/16 07/11/16 07/12/16 15:00 23:00 07:00 Intake Total 100 ml 580 ml Output Total 900 ml 3 ml Balance -800 ml 577 ml Exam Neck: No jvd Respiratory: clear to auscultation Cardiovascular: regular rate and rhythm Extremities: No tenderness (bilat) Results Result Diagram: 07/12/16 0720 07/12/16 0720 Results 24 hrs Laboratory Tests Test 07/11/16 11:48 07/11/16 12:26 07/11/16 15:10 07/11/16 17:18 Bedside Glucose 164 154 Urine Protein/Creatinine Ratio Urine Random Creatinine Urine Total Protein Troponin I < 0.012 Test 07/11/16 21:32 07/12/16 02:12 07/12/16 05:25 07/12/16 07:20 Bedside Glucose 145 165 89 Alanine Aminotransferase (ALT/SGPT) 25 Albumin 2.8 L Albumin/Globulin Ratio 0.73 Alkaline Phosphatase 70 Anion Gap 16 Aspartate Amino Transf (AST/SGOT) 18 Basophils # 0.0 Basophils % 0.5 Blood Morphology Comment Blood Urea Nitrogen 36 H Calcium Level 7.4 L Carbon Dioxide Level 22 Chloride Level 108 Creatinine 2.72 H Direct Bilirubin 0.00 Eosinophils # 0.1 Eosinophils % 3.5 Globulin 3.80 H Glucose Level 62 #L Hematocrit 27.3 L Hemoglobin 9.4 L Indirect Bilirubin 0.2 Lymphocytes # 0.9 Lymphocytes % 29.9 Magnesium Level 2.0 Mean Corpuscular Hemoglobin 29.7 Mean Corpuscular Hemoglobin Concent 34.5 Mean Corpuscular Volume 85.9 Mean Platelet Volume 7.0 L Monocytes # 0.3 Monocytes % 8.7 Neutrophils # 1.8 Neutrophils % 57.4 Nucleated Red Blood Cells # 0.0 Nucleated Red Blood Cells % 0.0 Parathyroid Hormone (Intact) Phosphorus Level 5.5 H Platelet Count 126 L Potassium Level 5.3 H Red Blood Count 3.18 L Red Cell Distribution Width 16.4 H Sodium Level 141 Total Bilirubin 0.2 Total Protein 6.6 White Blood Count 3.1 L Test 07/12/16 07:37 07/12/16 08:39 07/12/16 09:06 Bedside Glucose 59 L 91 80 Medications Medications Current Medications Ondansetron HCl (Zofran Inj) 4 mg Q6H PRN IV NAUSEA AND/OR VOMITING Last administered on 07/12/16 07:53; Admin Dose 4 MG; Start 07/10/16 at 17:30 Acetaminophen (Tylenol Tab) 650 mg Q6H PRN PO PAIN LEVEL 1-3 OR FEVER; Start at 17:30 Acetaminophen/ Hydrocodone Bitart ([place] (5/325)) 1 tab Q6H PRN PO MODERATE PAIN LEVEL 4-6; Start 07/10/16 at 17:30 Morphine Sulfate (morphine) 2 mg Q4H PRN IV SEVERE PAIN LEVEL 7-10 Last administered on 07/12/16 07:53; Admin Dose 2 MG; Start 07/10/16 at 17:30 Docusate Sodium (Colace) 100 mg Q12H PRN PO CONSTIPATION; Start 07/10/16 at 17: 30 Pantoprazole (Protonix Iv) 40 mg DAILY@06 IV Last administered on 07/12/16 05: 32; Admin Dose 40 MG; Start 07/11/16 at 06:00 Lorazepam (Ativan) 0.5 mg Q6H PRN IV ANXIETY; Start 07/10/16 at 17:30 Hydralazine HCl (Apresoline) 10 mg Q6H PRN IV ELEVATED BLOOD PRESSURE; Start at 17:30 Clonidine (Catapres) 0.1 mg Q6H PRN PO ELEVATED BLOOD PRESSURE; Start 07/10/16 at 17:30 Nitroglycerin (Nitroglycerin (Sl Tab) 0.4 Mg) 1 tab Q5M PRN SL ANGINA; Start at 17:30 Insulin Aspart (Novolog Insulin Pen) NOVOLOG *MILD* ALGORI... Q4 SC Last administered on 07/12/16 02:17; Admin Dose 1 UNIT; Start 07/10/16 at 21:00 Amlodipine Besylate (Norvasc) 10 mg DAILY PO Last administered on 07/11/16 08: 46; Admin Dose 10 MG; Start 07/11/16 at 09:00 Bumetanide (Bumex) 1 mg DAILY PO Last administered on 07/11/16 08:46; Admin Dose 1 MG; Start 07/11/16 at 09:00 Carvedilol (Coreg) 6.25 mg BID PO Last administered on 07/11/16 21:35; Admin Dose 6.25 MG; Start 07/10/16 at 21:00 Ferrous Sulfate (Ferrous Sulfate (Ec)) 325 mg DAILY PO Last administered on 08:46; Admin Dose 325 MG; Start 07/11/16 at 09:00 Lactobacillus Acidoph/Bulgaricus (Floranex) 1 tab TID PO Last administered on 21:34; Admin Dose 1 TAB; Start 07/10/16 at 21:00 Miscellaneous Information 1 ea NOTE XX ; Start 07/10/16 at 17:30 Glucose (Glutose) 15 gm Q15M PRN PO DECREASED GLUCOSE; Start 07/10/16 at 17:30 Glucose (Glutose) 22.5 gm Q15M PRN PO DECREASED GLUCOSE; Start 07/10/16 at 17: 30 Dextrose (D50w Syringe) 25 ml Q15M PRN IV DECREASED GLUCOSE Last administered on 07/12/16 07:54; Admin Dose 25 ML; Start 07/10/16 at 17:30 Dextrose (D50w Syringe) 50 ml Q15M PRN IV DECREASED GLUCOSE Last administered on 07/11/16 05:05; Admin Dose 50 ML; Start 07/10/16 at 17:30 Glucagon (Glucagen) 1 mg Q15M PRN IM DECREASED GLUCOSE; Start 07/10/16 at 17:30 Glucose 15 gm 15 gm Q15M PRN BUCCAL DECREASED GLUCOSE; Start 07/10/16 at 17:30 Cefepime HCl 50 ml @ 100 mls/hr Q24H IVPB Last administered on 07/11/16 21:33 ; Admin Dose 100 MLS/HR; Start 07/10/16 at 21:00 Vancomycin HCl (Vancocin) 100 ml @ 100 mls/hr Q24H IVPB Last administered on 14:01; Admin Dose 100 MLS/HR; Start 07/11/16 at 13:30 Epoetin Mauricio (Epogen (Esrd)) 10,000 units MoWeFr@17 SC Last administered on 17:52; Admin Dose 10,000 UNITS; Start 07/11/16 at 17:00 Insulin Glargine (Lantus) 5 unit QHS SC Last administered on 07/11/16 23:28; Admin Dose 5 UNIT; Start 07/11/16 at 23:30 JOSE LEMA MD Jul 12, 2016 10:02
[2016-07-12] MEDS ORDERED: NA POLYST SULFON 15 GM/60 ML BTL PR ONE (11:00)
[2016-07-12] MEDS ORDERED: [UNRECOGNIZED DRUG - REMARK] XX SCH (11:30)
[2016-07-12] MEDS: VANCOMYCIN 500MG/NS (PMX) 100 ML IVPB SCH (12:23)
[2016-07-12] MEDS ORDERED: GELATIN SIZE 100 SPONGE ONE (12:59)
[2016-07-12] MEDS ORDERED: LIDOCAINE 1%/EPI 30 ML INJ ONE (12:59)
[2016-07-12] MEDS ORDERED: THROMBIN 5000 UNIT VIAL ONE ×2 (13:00→14:54)
[2016-07-12] MEDS ORDERED: POLYMYXIN/BACITRACIN 1L IRRIG ONE (13:00)
[2016-07-12] MEDS ORDERED: BUPIVACAINE 0.5% (SDV) 30 ML INJ ONE (13:14)
[2016-07-12] MEDS ORDERED: LIDOCAINE 0.5%/EPI (MDV) 50 ML INJ ONE (13:15)
[2016-07-12] MEDS ORDERED: ROCURONIUM 50 MG INJ ONE (13:18)
[2016-07-12] MEDS ORDERED: PROPOFOL 20 ML ONE (13:18)
[2016-07-12] MEDS ORDERED: SUCCINYLCHOLINE CHLORIDE 100 MG/5 ML SYG IV ONE (13:20)
[2016-07-12] MEDS ORDERED: PHENYLephrine (100 MCG/ML) 5ML SYG ONE (13:20)
[2016-07-12] MEDS ORDERED: PHENYLephrine 20MG IN 250 ML 250 ML IV STA (13:24)
--- NOTE | 2016-07-12 14:28 | CONS ---
DATE OF ADMISSION: 07/10/2016 DATE OF CONSULTATION: 07/11/2016 CONSULTING SERVICE: Neurosurgery. REQUESTING PHYSICIAN: Dr. Jean Pierre Morgan HISTORY OF PRESENT ILLNESS: This is a 56-year-old male with a past medical history significant for hypertension, diabetes mellitus, chronic kidney disease secondary to diabetes, possible liver disease and liver cirrhosis, and anemia of chronic disease, who started having low back pain for the past month and a half to 2 months. The patient was also having some burning with urination over the past several days. The patient was initially admitted to [facility] for the past several days, where he was diagnosed with a probable lumbar epidural abscess, left psoas abscess, lumbar diskitis and osteomyelitis, and was started on IV antibiotics. Apparently a transport specialist evaluated the patient at [place] and plans were being made to take the patient to the operating room for evacuation of the suspected abscess, but due to insurance reasons, the patient needed to be transferred to [facility]. The patient does not report any fevers prior to coming to the hospital. He tells me that over the past month and a half to 2 months he has noticed generalized weakness of the bilateral lower extremities. The patient has also had increased numbness involving the bilateral lower extremities from his knees down. The numbness and weakness increases with prolonged standing and walking. The patient is still able to void spontaneously. He denies bowel or bladder dysfunction. He denies any numbness of the perineal area. PAST MEDICAL HISTORY: As noted above. PAST SURGICAL HISTORY: Left eye surgery for a reported retinal detachment. SOCIAL HISTORY: The patient apparently quit drinking alcohol a number of years ago. He does not smoke tobacco. He does not use illicit or recreational drugs. FAMILY HISTORY: Noncontributory. ALLERGIES: NO KNOWN DRUG ALLERGIES. PHYSICAL EXAMINATION: GENERAL: The patient is seen at the bedside. The patient is mostly Lithuanian- speaking I am able to communicate with the patient with the help of one of the Lithuanian-speaking nurses. NEUROLOGIC: He is awake, alert, oriented x4. His language is fluent in Lithuanian. Face is symmetric. Tongue is midline. Extraocular movements are intact. Muscle bulk and tone seems to be normal bilateral upper and lower extremity. Deep tendon reflexes are 1+ bilateral upper and lower extremities. Sensation to light touch seems to be decreased in the bilateral lower extremities involving the L4, L5 and S1 distributions bilaterally. Motor strength is 4/5 involving the knee flexion and extension, and ankle dorsiflexion and plantar flexion. There is no Winter sign. Toes are downgoing bilaterally. There is no ankle clonus. Gait testing has been deferred, given the patient's low back pain, but the patient is able to take a few steps to go to the bathroom. The patient has no saddle anesthesia. Rectal examination has been deferred, per patient request. The patient does have some moderate tenderness to touch involving the midline over the upper to mid lumbar region. IMAGING: The patient has received MRI of the lumbar spine without contrast on 07/09/2016 at [facility]. The new MRI that was done here without contrast could not be done with optimal quality, given the fact that apparently the magnet coils were having problems. The patient has also had a CT of the lumbar spine done at [facility] without contrast. The imaging studies do show some destructive changes of the endplates at the L2-L3 region. There is no significant subluxation noted. There is evidence of probable diskitis at the L2-L3 area and enlargement of the left psoas muscle, and inflammatory changes that seem to be consistent with infection involving the left psoas muscle. There is also fluid in the ventral epidural space from L2 to L3 that could possibly point to a lumbar epidural abscess causing some central and lateral recess stenosis at these areas, although since the patient cannot be given contrast due to the fact that he has chronic kidney disease and an elevated creatinine, it is hard to assess further with more certainty regarding an acute abscess. ASSESSMENT AND PLAN: This is a middle-aged male with multiple medical problems noted above, who does have risk factors for an epidural abscess, including diabetes and possible reported liver disease, that could make the patient immunocompromised. The patient has been diagnosed with a urinary tract infection at [facility] and has already been started on multiple antibiotics. He has already been evaluated by an infectious disease specialist at [facility], who recommends continuing the antibiotic medications. The infectious disease specialist also recommends to try to do a biopsy versus an evacuation of the suspected epidural abscess at the L2-L3 area. The patient's erythrocyte sedimentation rate is in the 70 range, that is elevated, and can indicate an infection. His C-reactive peptide is more in the normal range. The patient's hemoglobin A1c is just above 6, that does not indicate a very out of control blood sugar, at least over the past 3 months. I have had a very extensive discussion with the patient. There are no family members at bedside. He tells me that he just has a sister who is not available at this time, but may be available later, and I have explained to the patient that at this point he does not have severe sensorimotor deficit; however, he does have progressive numbness of the bilateral lower extremities as well as some weakness of his lower extremities that seems to increase with standing and walking, that seem to suggest neurogenic claudication as a result of lumbar stenosis. At this point the patient has 2 options. The number one option would be to continue with the IV antibiotic that he was started several days ago and have serial MR imaging studies to see how his MRIs look over time and how the patient responds clinically. The second option would be in addition to doing the IV antibiotics, to have the patient go to surgery to have evacuation of the suspected abscess, that would give him the maximum chance of trying to resolve the infection versus doing a CT-guided biopsy of the L2-L3 disk space. However, given the fact that the patient has already been started on IV antibiotics, the chances of yield and being able to grow the suspected organism and getting an ID of the organism is low from a biological perspective. The patient tells me that since he is having a hard time ambulating and has had progressive numbness, he is scared that he is going to continue to deteriorate and would like to proceed with surgical intervention. The patient's postvoid residual has been in the 120-150 range, but well below 200. I have explained the risks and benefits of the above operation in great detail with the patient, the risks including bleeding, infection, weakness, numbness, paralysis, bowel or bladder dysfunction, cerebrospinal fluid leak, failure of improvement of symptoms, need for further surgeries, including redo laminectomy or redo evacuation of the abscess, or further need for future surgeries, including lumbar fusion and instrumentation, as well as those risks associated with surgery and general anesthesia, including deep venous thrombosis, pulmonary embolism, heart attack, stroke, pneumonia and . The patient is also anemic at this point and he will most likely require a blood transfusion in the perioperative period, although the blood loss from the actual operation is estimated to be low. The patient would like to proceed with the surgery as soon as possible. We will try to accommodate him as best we can. I have also notified the hospitalist of the surgical plans for the patient and they will try to clear the patient preoperative. Dictated By: JONAS MCKEON MD, SA/ERICKA Conf#: [id number] DID#: [id number]
--- NOTE | 2016-07-12 14:31 | PN ---
Date/Time of Note Date/Time of Note DATE: 07/12/16 TIME: 14:29 Assessment/Plan VTE Prophylaxis VTE Prophylaxis Intervention: SCD's Lines/Catheters IV [facility] Type [facility]from [facility] Urinary Cath still in place: No Assessment/Plan Chief Complaint/Hosp Course ASSESSMENT AND PLAN: 56-year-old male transferred from outside hospital due to sepsis secondary to urinary tract infection, enterococcus, and renal insufficiency, questionable history of hypertension, diabetes, and cirrhosis, and also now with a spinal abscess. 1. Sepsis. Again, most likely secondary to combination of urinary tract infection and spinal abscess = 1.8 cm left psoas abscess, probable epidural phlegmon abscess in the L2-L3 region. Patient does not appear to have any focal deficits or signs of any significant spinal stenosis. There is some mild stenosis seen on the imaging; however, patient is neurologically intact at this point, and he is urinating. - planning for neurosurgery intervention today for abscess removal - pt is medically cleared for surgery - f/u post-op rec's - continue broad-spectrum antibiotics, cefepime and vancomycin, This will treat both the UTI and hopefully the spinal abscess. - f/u infectious disease rec's. - May need to workup his questionable liver cirrhosis that was seen on the imaging study. It is unclear if the patient has had a prior history of cirrhosis. 2. Chronic kidney disease due to diabetic nephropathy with acute renal failure superimposed - holding diuretic today per renal rec's - f/u renal consult given his renal insufficiency. 2. For his diabetes type 2 - A1c = 6.4 -, put him on sliding scale insulin. 3. Hypertension, Blood pressure stable. Continue current medications. 4. History of anemia - s/p pRBC transfusion yesterday 2 units - and H/H stable today - monitor 5. Questionable hematuria. Will continue to monitor for now. 6. Gastrointestinal prophylaxis; PPIs. 7. Deep venous thrombosis prophylaxis; SCDs. Problems: Subjective 24 Hr Interval Summary Free Text/Dictation Pt in OR now, no acute events overnight. Exam/Review of Systems Vital Signs Vitals Vital Signs Date Time Temp Pulse Resp B/P Pulse Ox O2 Delivery O2 Flow Rate FiO2 07/12/16 07:20 98.8 61 18 135/66 96 07/10/16 15:37 Room Air Intake and Output 07/11/16 07/11/16 07/12/16 15:00 23:00 07:00 Intake Total 100 ml 580 ml Output Total 900 ml 3 ml Balance -800 ml 577 ml Exam PE: - unable to be performed b/c pt at OR now. Results Result Diagram: 07/12/16 0720 07/12/16 0720 Results 24 hrs Laboratory Tests Test 07/11/16 15:10 07/11/16 17:18 07/11/16 21:32 07/12/16 02:12 Troponin I < 0.012 Bedside Glucose 154 145 165 Test 07/12/16 05:25 07/12/16 07:20 07/12/16 07:37 07/12/16 08:39 Bedside Glucose 89 59 L 91 Alanine Aminotransferase (ALT/SGPT) 25 Albumin 2.8 L Albumin/Globulin Ratio 0.73 Alkaline Phosphatase 70 Anion Gap 16 Aspartate Amino Transf (AST/SGOT) 18 Basophils # 0.0 Basophils % 0.5 Blood Morphology Comment Blood Urea Nitrogen 36 H Calcium Level 7.4 L Carbon Dioxide Level 22 Chloride Level 108 Creatinine 2.72 H Direct Bilirubin 0.00 Eosinophils # 0.1 Eosinophils % 3.5 Globulin 3.80 H Glucose Level 62 #L Hematocrit 27.3 L Hemoglobin 9.4 L Indirect Bilirubin 0.2 Lymphocytes # 0.9 Lymphocytes % 29.9 Magnesium Level 2.0 Mean Corpuscular Hemoglobin 29.7 Mean Corpuscular Hemoglobin Concent 34.5 Mean Corpuscular Volume 85.9 Mean Platelet Volume 7.0 L Monocytes # 0.3 Monocytes % 8.7 Neutrophils # 1.8 Neutrophils % 57.4 Nucleated Red Blood Cells # 0.0 Nucleated Red Blood Cells % 0.0 Parathyroid Hormone (Intact) Phosphorus Level 5.5 H Platelet Count 126 L Potassium Level 5.3 H Red Blood Count 3.18 L Red Cell Distribution Width 16.4 H Sodium Level 141 Total Bilirubin 0.2 Total Protein 6.6 White Blood Count 3.1 L Test 07/12/16 09:06 07/12/16 11:13 07/12/16 13:34 Bedside Glucose 80 80 81 Medications Medications Current Medications Ondansetron HCl (Zofran Inj) 4 mg Q6H PRN IV NAUSEA AND/OR VOMITING Last administered on 07/12/16t 07:53; Admin Dose 4 MG; Start 07/10/16 at 17:30 Acetaminophen (Tylenol Tab) 650 mg Q6H PRN PO PAIN LEVEL 1-3 OR FEVER; Start at 17:30 Acetaminophen/ Hydrocodone Bitart ([place] (5/325)) 1 tab Q6H PRN PO MODERATE PAIN LEVEL 4-6; Start 07/10/16 at 17:30 Morphine Sulfate (morphine) 2 mg Q4H PRN IV SEVERE PAIN LEVEL 7-10 Last administered on 07/12/16 12:23; Admin Dose 2 MG; Start 07/10/16 at 17:30 Docusate Sodium (Colace) 100 mg Q12H PRN PO CONSTIPATION; Start 07/10/16 at 17: 30 Pantoprazole (Protonix Iv) 40 mg DAILY@06 IV Last administered on 07/12/16 05: 32; Admin Dose 40 MG; Start 07/11/16 at 06:00 Lorazepam (Ativan) 0.5 mg Q6H PRN IV ANXIETY; Start 07/10/16 at 17:30 Hydralazine HCl (Apresoline) 10 mg Q6H PRN IV ELEVATED BLOOD PRESSURE; Start at 17:30 Clonidine (Catapres) 0.1 mg Q6H PRN PO ELEVATED BLOOD PRESSURE; Start 07/10/16 at 17:30 Nitroglycerin (Nitroglycerin (Sl Tab) 0.4 Mg) 1 tab Q5M PRN SL ANGINA; Start at 17:30 Insulin Aspart (Novolog Insulin Pen) NOVOLOG *MILD* ALGORI... Q4 SC Last administered on 07/12/16 02:17; Admin Dose 1 UNIT; Start 07/10/16 at 21:00 Amlodipine Besylate (Norvasc) 10 mg DAILY PO Last administered on 07/11/16 08: 46; Admin Dose 10 MG; Start 07/11/16 at 09:00 Carvedilol (Coreg) 6.25 mg BID PO Last administered on 07/11/16 21:35; Admin Dose 6.25 MG; Start 07/10/16 at 21:00 Ferrous Sulfate (Ferrous Sulfate (Ec)) 325 mg DAILY PO Last administered on 08:46; Admin Dose 325 MG; Start 07/11/16 at 09:00 Lactobacillus Acidoph/Bulgaricus (Floranex) 1 tab TID PO Last administered on 21:34; Admin Dose 1 TAB; Start 07/10/16 at 21:00 Miscellaneous Information 1 ea NOTE XX ; Start 07/10/16 at 17:30 Glucose (Glutose) 15 gm Q15M PRN PO DECREASED GLUCOSE; Start 07/10/16 at 17:30 Glucose (Glutose) 22.5 gm Q15M PRN PO DECREASED GLUCOSE; Start 07/10/16 at 17: 30 Dextrose (D50w Syringe) 25 ml Q15M PRN IV DECREASED GLUCOSE Last administered on 07/12/16 07:54; Admin Dose 25 ML; Start 07/10/16 at 17:30 Dextrose (D50w Syringe) 50 ml Q15M PRN IV DECREASED GLUCOSE Last administered on 07/11/16 05:05; Admin Dose 50 ML; Start 07/10/16 at 17:30 Glucagon (Glucagen) 1 mg Q15M PRN IM DECREASED GLUCOSE; Start 07/10/16 at 17:30 Glucose 15 gm 15 gm Q15M PRN BUCCAL DECREASED GLUCOSE; Start 07/10/16 at 17:30 Cefepime HCl 50 ml @ 100 mls/hr Q24H IVPB Last administered on 07/11/16 21:33 ; Admin Dose 100 MLS/HR; Start 07/10/16 at 21:00 Vancomycin HCl (Vancocin) 100 ml @ 100 mls/hr Q24H IVPB Last administered on 12:23; Admin Dose 100 MLS/HR; Start 07/11/16 at 13:30 Epoetin Mauricio (Epogen (Esrd)) 10,000 units MoWeFr@17 SC Last administered on 17:52; Admin Dose 10,000 UNITS; Start 07/11/16 at 17:00 Insulin Glargine 5 unit 5 unit QHS SC Last administered on 07/11/16 23:28; Admin Dose 5 UNIT; Start 07/11/16 at 23:30 Sodium Chloride (NS) 1,000 ml @ 60 mls/hr [id number] IV Last administered on 07/12 10:00; Admin Dose 60 MLS/HR; Start 07/12/16 at 10:00 Miscellaneous Information 1 ea NOTE XX ; Start 07/12/16 at 11:30; Stop 07/12/16 at 15:00 Miscellaneous Information (*Rx Drug Level Order Reminder*) VANCOMYCIN TROUGH AT 1230 ONCE ONCE XX ; Start 07/13/16 at 12:30; Stop 07/13/16 at 12:31 PHANI REYES Jul 12, 2016 14:31
[2016-07-12] MEDS ORDERED: CA CHLORIDE 10% 10 ML SYRINGE ONE (15:56)
[2016-07-12] MEDS ORDERED: DESMOPRESSIN 20 MCG in NS 50 ML IV ONE (16:00)
[2016-07-12] MEDS ORDERED: PIPER-TAZO 3.375 GM IV (PMX) 100 ML IVPB SCH (16:30)
[2016-07-12 16:33] LABS: BASOPHILS % 0.5 % (0.0-2.0); EOSINOPHILS # 0.1 10^3/ul (0.0-0.5); EOSINOPHILS % 3.2 % (0.0-7.0); HEMOGLOBIN 9.1 g/dl (14.0-18.0); LYMPHOCYTES # 1.1 10^3/ul (0.8-2.9); LYMPHOCYTES % 37.1 % (15.0-51.0); MEAN CORPUSCULAR HEMOGLOBIN 28.5 pg (29.0-33.0); MEAN CORPUSCULAR HGB CONC 33.8 g/dl (32.0-37.0); MEAN CORPUSCULAR VOLUME 84.4 fl (82.0-101.0); MONOCYTE # 0.2 10^3/ul (0.3-0.9); MONOCYTES % 6.9 % (0.0-11.0); NEUTROPHIL # 1.6 10^3/ul (1.6-7.5); NEUTROPHILS % 52.3 % (39.0-77.0); PLATELET COUNT 128 10^3/UL (140-440); RED CELL DISTRIBUTION WIDTH 17.9 % (11.5-14.5)
[2016-07-12 16:34] LABS: CONDITION 1; LH ANALYZER COMMENTS 1
[2016-07-12 16:40] LABS: INR 1.24; PROTIME 15.7 Sec (12.2-14.2); PT RATIO 1.2
[2016-07-12] MEDS ORDERED: BACITRACIN/POLYMYXIN 28.35 GM OINT TOP ONE (16:40)
[2016-07-12 16:41] LABS: PARTIAL THROMBOPLASTIN TIME 34.4 Sec (25.0-35.0)
[2016-07-12] MEDS ORDERED: FAMOTIDINE 20 MG INJ ONE (16:44)
[2016-07-12] MEDS ORDERED: ONDANSETRON 4 MG INJ ONE (16:44)
[2016-07-12 17:00] LABS: POTASSIUM 5.6 mmol/L (3.5-5.1)
[2016-07-12] MEDS ORDERED: HYDROCODONE/APAP (10/325) TAB PO PRN (17:00)
[2016-07-12] MEDS ORDERED: ERGOCALCIFEROL 50,000 UNIT CAP PO SCH (17:00)
[2016-07-12] MEDS ORDERED: NALOXONE (0.4 MG/ML) INJ IV PRN (17:00)
[2016-07-12 17:03] LABS: CREATININE 2.68 mg/dl (0.61-1.24)
[2016-07-12 17:04] LABS: CALCIUM 8.3 mg/dl (8.4-10.2)
[2016-07-12] MEDS ORDERED: ONDANSETRON 4 MG INJ IV PRN (17:30)
[2016-07-12] MEDS ORDERED: DIPHENHYDRAMINE 50 MG INJ IV PRN (17:30)
[2016-07-12] MEDS ORDERED: HYDROmorphONE (0.2 MG/ML) 10ML SYG IV PRN ×2 (17:30)
[2016-07-12] MEDS ORDERED: hydrALAzine 20 MG INJ IV PRN (17:30)
--- NOTE | 2016-07-12 17:48 | RADRPT ---
PROCEDURE: Intraoperative imaging of the lumbar spine with fluoroscopy. CLINICAL INDICATION: Back pain. Intraoperative. TECHNIQUE: 5 images of the lumbar spine were obtained in the operating room with an image intensif ier. No radiologist was in attendance. 11.8 seconds of fluoroscopy time was used. COMPARISON: CT scan of the lumbar spine dated 07/11/2016 FINDINGS: Posterior surgical devices are present overlying the lumbar spine. IMPRESSION: 1. Intraoperative imaging of the lumbar spine. RPTAT: QQ .Umang Dale MD, Date Time Electronically viewed and signed by .Umang Dale MD, on 07/12/2016 17:48 .R/
[2016-07-12 18:40] LABS: BASOPHILS % 0.5 % (0.0-2.0); EOSINOPHILS # 0.1 10^3/ul (0.0-0.5); EOSINOPHILS % 3.6 % (0.0-7.0); HEMATOCRIT 27.7 % (42.0-52.0); HEMOGLOBIN 9.5 g/dl (14.0-18.0); LYMPHOCYTES # 0.8 10^3/ul (0.8-2.9); LYMPHOCYTES % 28.8 % (15.0-51.0); MEAN CORPUSCULAR HEMOGLOBIN 28.7 pg (29.0-33.0); MEAN CORPUSCULAR HGB CONC 34.2 g/dl (32.0-37.0); MEAN CORPUSCULAR VOLUME 83.9 fl (82.0-101.0); MEAN PLATELET VOLUME 6.6 fl (7.4-10.4); MONOCYTE # 0.2 10^3/ul (0.3-0.9); MONOCYTES % 6.7 % (0.0-11.0); NEUTROPHIL # 1.7 10^3/ul (1.6-7.5); NEUTROPHILS % 60.4 % (39.0-77.0); PLATELET COUNT 110 10^3/UL (140-440); RED BLOOD COUNT 3.31 10^6/ul (4.70-6.10); UNCORRECTED WBC 2.8 10^3/ul (4.8-10.8); WHITE BLOOD COUNT 2.8 10^3/ul (4.8-10.8)
[2016-07-12 18:56] LABS: CONDITION 1; LH ANALYZER COMMENTS 1
[2016-07-12 19:00] LABS: POTASSIUM 5.5 mmol/L (3.5-5.1)
[2016-07-12 19:02] LABS: CREATININE 2.73 mg/dl (0.61-1.24)
[2016-07-12 19:03] LABS: CALCIUM 7.5 mg/dl (8.4-10.2)
[2016-07-12] MEDS: HYDROmorphONE 1 MG/ML SYG IV PRN ×2 (20:42→23:39)
--- NOTE | 2016-07-12 20:51 | CONS ---
Date/Time of Note Date/Time of Note DATE: 07/12/16 TIME: 11:48 Assessment/Plan Assessment/Plan Chief Complaint/Hosp Course SUBJECTIVE: No acute changes. No fevers. Looks comfortable MICROBIOLOGY: Urine culture + yeast/GNR. ANTIMICROBIALS: 1. IV vancomycin. 2. Cefepime. PHYSICAL EXAMINATION: GENERAL: This is a well-developed, middle-aged man who is awake, in no distress. HEENT: Head atraumatic, normocephalic. Sclerae anicteric. Buccal mucosa dry. NECK: Supple, trachea midline. CHEST: Rise symmetrical. Breath sounds clear. HEART: S1, S2. ABDOMEN: Soft, bowel tones present. EXTREMITIES: Without cyanosis. ASSESSMENT: 1. Lumbar diskitis with left psoas abscess. 2. Acute on chronic kidney disease. 3. Urinary tract infection. 4. Anemia. 5. Hypertension. 6. Diabetes. PLAN: The patient remains stable. Pending surgical intervention. Continue present care, antibiotics, add Diflucan. Follow recommendations of consultants. STEPHANE neal Problems: Consultation Date/Type/Reason Admit Date/Time Jul 10, 2016 at 15:03 Initial Consult Date Type of Consultation: id Exam/Review of Systems Vital Signs Vitals Vital Signs Date Time Temp Pulse Resp B/P Pulse Ox O2 Delivery O2 Flow Rate FiO2 07/12/16 20:36 52 07/12/16 20:07 98.0 20 137/76 100 07/12/16 18:20 Nasal Cannula 2.0 Intake and Output 07/11/16 07/11/16 07/12/16 15:00 23:00 07:00 Intake Total 100 ml 580 ml Output Total 900 ml 3 ml Balance -800 ml 577 ml Results Result Diagram: 07/12/16 1825 07/12/16 1825 Results 24 hrs Laboratory Tests Test 07/11/16 21:32 07/12/16 02:12 07/12/16 05:25 07/12/16 07:20 Bedside Glucose 145 165 89 Alanine Aminotransferase (ALT/SGPT) 25 Albumin 2.8 L Albumin/Globulin Ratio 0.73 Alkaline Phosphatase 70 Anion Gap 16 Aspartate Amino Transf (AST/SGOT) 18 Basophils # 0.0 Basophils % 0.5 Blood Morphology Comment Blood Urea Nitrogen 36 H Calcium Level 7.4 L Carbon Dioxide Level 22 Chloride Level 108 Creatinine 2.72 H Direct Bilirubin 0.00 Eosinophils # 0.1 Eosinophils % 3.5 Globulin 3.80 H Glucose Level 62 #L Hematocrit 27.3 L Hemoglobin 9.4 L Indirect Bilirubin 0.2 Lymphocytes # 0.9 Lymphocytes % 29.9 Magnesium Level 2.0 Mean Corpuscular Hemoglobin 29.7 Mean Corpuscular Hemoglobin Concent 34.5 Mean Corpuscular Volume 85.9 Mean Platelet Volume 7.0 L Monocytes # 0.3 Monocytes % 8.7 Neutrophils # 1.8 Neutrophils % 57.4 Nucleated Red Blood Cells # 0.0 Nucleated Red Blood Cells % 0.0 Parathyroid Hormone (Intact) Phosphorus Level 5.5 H Platelet Count 126 L Potassium Level 5.3 H Red Blood Count 3.18 L Red Cell Distribution Width 16.4 H Sodium Level 141 Total Bilirubin 0.2 Total Protein 6.6 White Blood Count 3.1 L Test 07/12/16 07:37 07/12/16 08:39 07/12/16 09:06 07/12/16 11:13 Bedside Glucose 59 L 91 80 80 Test 07/12/16 13:34 07/12/16 15:00 07/12/16 15:09 07/12/16 17:17 Bedside Glucose 81 173 159 Activated Partial Thromboplast Time 34.4 Anion Gap 14 Basophils # 0.0 Basophils % 0.5 Blood Morphology Comment Blood Urea Nitrogen 38 H Calcium Level 8.3 L Carbon Dioxide Level 20 L Chloride Level 110 Creatinine 2.68 H Eosinophils # 0.1 Eosinophils % 3.2 Glucose Level 157 Hematocrit 27.0 L Hemoglobin 9.1 L INR International Normalized Ratio 1.24 Lymphocytes # 1.1 Lymphocytes % 37.1 Mean Corpuscular Hemoglobin 28.5 L Mean Corpuscular Hemoglobin Concent 33.8 Mean Corpuscular Volume 84.4 Mean Platelet Volume 7.0 L Monocytes # 0.2 L Monocytes % 6.9 Neutrophils # 1.6 Neutrophils % 52.3 Nucleated Red Blood Cells # 0.0 Nucleated Red Blood Cells % 0.0 Platelet Count 128 L Potassium Level 5.6 H Prothrombin Time 15.7 H Prothrombin Time Ratio 1.2 Red Blood Count 3.20 L Red Cell Distribution Width 17.9 H Sodium Level 138 White Blood Count 3.0 L Test 07/12/16 18:25 Anion Gap 14 Basophils # 0.0 Basophils % 0.5 Blood Morphology Comment Blood Urea Nitrogen 38 H Calcium Level 7.5 L Carbon Dioxide Level 21 Chloride Level 110 Creatinine 2.73 H Eosinophils # 0.1 Eosinophils % 3.6 Glucose Level 155 Hematocrit 27.7 L Hemoglobin 9.5 L Lymphocytes # 0.8 Lymphocytes % 28.8 Mean Corpuscular Hemoglobin 28.7 L Mean Corpuscular Hemoglobin Concent 34.2 Mean Corpuscular Volume 83.9 Mean Platelet Volume 6.6 L Monocytes # 0.2 L Monocytes % 6.7 Neutrophils # 1.7 Neutrophils % 60.4 Nucleated Red Blood Cells # 0.0 Nucleated Red Blood Cells % 0.0 Platelet Count 110 L Potassium Level 5.5 H Red Blood Count 3.31 L Red Cell Distribution Width 18.0 H Sodium Level 139 White Blood Count 2.8 L Medications Medications Current Medications Ondansetron HCl (Zofran Inj) 4 mg Q6H PRN IV NAUSEA AND/OR VOMITING Last administered on 07/12/16 07:53; Admin Dose 4 MG; Start 07/10/16 at 17:30 Morphine Sulfate (morphine) 2 mg Q4H PRN IV SEVERE PAIN LEVEL 7-10 Last administered on 07/12/16 18:53; Admin Dose 2 MG; Start 07/10/16 at 17:30 Docusate Sodium (Colace) 100 mg Q12H PRN PO CONSTIPATION; Start 07/10/16 at 17: 30 Pantoprazole (Protonix Iv) 40 mg DAILY@06 IV Last administered on 07/12/16 05: 32; Admin Dose 40 MG; Start 07/11/16 at 06:00 Lorazepam (Ativan) 0.5 mg Q6H PRN IV ANXIETY; Start 07/10/16 at 17:30 Hydralazine HCl (Apresoline) 10 mg Q6H PRN IV ELEVATED BLOOD PRESSURE; Start at 17:30 Clonidine (Catapres) 0.1 mg Q6H PRN PO ELEVATED BLOOD PRESSURE; Start 07/10/16 at 17:30 Nitroglycerin (Nitroglycerin (Sl Tab) 0.4 Mg) 1 tab Q5M PRN SL ANGINA; Start at 17:30 Insulin Aspart (Novolog Insulin Pen) NOVOLOG *MILD* ALGORI... Q4 SC Last administered on 07/12/16 02:17; Admin Dose 1 UNIT; Start 07/10/16 at 21:00 Amlodipine Besylate (Norvasc) 10 mg DAILY PO Last administered on 07/11/16 08: 46; Admin Dose 10 MG; Start 07/11/16 at 09:00 Carvedilol (Coreg) 6.25 mg BID PO Last administered on 07/11/16 21:35; Admin Dose 6.25 MG; Start 07/10/16 at 21:00 Ferrous Sulfate (Ferrous Sulfate (Ec)) 325 mg DAILY PO Last administered on 08:46; Admin Dose 325 MG; Start 07/11/16 at 09:00 Lactobacillus Acidoph/Bulgaricus (Floranex) 1 tab TID PO Last administered on 21:34; Admin Dose 1 TAB; Start 07/10/16 at 21:00 Miscellaneous Information 1 ea NOTE XX ; Start 07/10/16 at 17:30 Glucose (Glutose) 15 gm Q15M PRN PO DECREASED GLUCOSE; Start 07/10/16 at 17:30 Glucose (Glutose) 22.5 gm Q15M PRN PO DECREASED GLUCOSE; Start 07/10/16 at 17: 30 Dextrose (D50w Syringe) 25 ml Q15M PRN IV DECREASED GLUCOSE Last administered on 07/12/16 07:54; Admin Dose 25 ML; Start 07/10/16 at 17:30 Dextrose (D50w Syringe) 50 ml Q15M PRN IV DECREASED GLUCOSE Last administered on 07/11/16 05:05; Admin Dose 50 ML; Start 07/10/16 at 17:30 Glucagon (Glucagen) 1 mg Q15M PRN IM DECREASED GLUCOSE; Start 07/10/16 at 17:30 Glucose 15 gm 15 gm Q15M PRN BUCCAL DECREASED GLUCOSE; Start 07/10/16 at 17:30 Cefepime HCl 50 ml @ 100 mls/hr Q24H IVPB Last administered on 07/11/16 21:33 ; Admin Dose 100 MLS/HR; Start 07/10/16 at 21:00 Vancomycin HCl (Vancocin) 100 ml @ 100 mls/hr Q24H IVPB Last administered on 12:23; Admin Dose 100 MLS/HR; Start 07/11/16 at 13:30 Insulin Glargine (Lantus) 5 unit QHS SC Last administered on 07/11/16 23:28; Admin Dose 5 UNIT; Start 07/11/16 at 23:30 Miscellaneous Information (*Rx Drug Level Order Reminder*) VANCOMYCIN TROUGH AT 1230 ONCE ONCE XX ; Start 07/13/16 at 12:30; Stop 07/13/16 at 12:31 Ergocalciferol (Drisdol) 50,000 unit ONCE PO ; Start 07/12/16 at 17:00; Stop at 23:00 Finasteride 5 mg 5 mg DAILY PO ; Start 07/13/16 at 09:00 Potassium Chloride/Sodium Chloride (05/26 NS + KCl 20 Meq) 1,000 ml @ 100 mls/hr Q10H IV ; Start 07/12/16 at 16:51 Acetaminophen/ Hydrocodone Bitart ([place] (10/325)) 2 tab Q4H PRN PO PAIN LEVEL 6-10; Start 07/12/16 at 17:00 Hydromorphone HCl (Dilaudid) 0.2 mg Q1H PRN IV BREAKTHROUGH PAIN Last administered on 07/12/16t 20:42; Admin Dose 0.2 MG; Start 07/12/16 at 17:00 Naloxone HCl (Narcan) 0.2 mg Q2M PRN IV RR 8 BREATHS/MIN OR LESS; Start at 17:00 DORENE GARCIA NP Jul 12, 2016 20:51
[2016-07-12] MEDS: 1/2 NS + KCL 20 MEQ 1,000 ML IV SCH (20:58)
[2016-07-12] MEDS: INSULIN GLARGINE [LANtus] 3 ML PEN SC SCH (21:00)
[2016-07-12] MEDS: CEFEPIME 2GM/50 ML (PMX) 50 ML IVPB SCH (22:17)
[2016-07-13] VITALS (14 sets, daily range): BP systolic 141–184; BP diastolic 70–86; PULSE 59–78; RESP 17–20
[2016-07-13] MEDS: INSULIN ASPART [NOVOLOG] 3 ML PEN SC SCH ×5 (00:47→21:00)
[2016-07-13] MEDS: HYDROmorphONE 1 MG/ML SYG IV PRN ×5 (02:27→22:41)
[2016-07-13] MEDS: 1/2 NS + KCL 20 MEQ 1,000 ML IV SCH (02:51)
[2016-07-13] MEDS ORDERED: NA POLYST SULFON 15 GM/60 ML BTL PO ONE ×2 (04:30→12:00)
[2016-07-13] MEDS: SOD CHLORIDE 0.45% 1,000 ML IV SCH ×2 (04:31→12:49)
[2016-07-13] MEDS: PANTOPRAZOLE 40 MG INJ IV SCH (06:01)
[2016-07-13 07:02] LABS: ALBUMIN 2.5 g/dl (3.3-4.9)
[2016-07-13 07:03] LABS: POTASSIUM 5.2 mmol/L (3.5-5.1)
[2016-07-13 07:05] LABS: ALBUMIN/GLOBULIN RATIO 0.73; BILIRUBIN,INDIRECT 0.1 mg/dl (0-1.1); BILIRUBIN,TOTAL 0.1 mg/dl (0.2-1.3); CREATININE 2.67 mg/dl (0.61-1.24); TOTAL PROTEIN 5.9 g/dl (6.1-8.1)
[2016-07-13 07:06] LABS: CALCIUM 7.6 mg/dl (8.4-10.2)
[2016-07-13 07:07] LABS: BASOPHILS % 0.5 % (0.0-2.0); EOSINOPHILS # 0.1 10^3/ul (0.0-0.5); EOSINOPHILS % 1.7 % (0.0-7.0); HEMATOCRIT 23.5 % (42.0-52.0); HEMOGLOBIN 8.1 g/dl (14.0-18.0); LYMPHOCYTES # 0.9 10^3/ul (0.8-2.9); LYMPHOCYTES % 21.4 % (15.0-51.0); MEAN CORPUSCULAR HEMOGLOBIN 29.1 pg (29.0-33.0); MEAN CORPUSCULAR HGB CONC 34.3 g/dl (32.0-37.0); MEAN CORPUSCULAR VOLUME 84.7 fl (82.0-101.0); MEAN PLATELET VOLUME 7.3 fl (7.4-10.4); MONOCYTE # 0.3 10^3/ul (0.3-0.9); MONOCYTES % 8.3 % (0.0-11.0); NEUTROPHIL # 2.8 10^3/ul (1.6-7.5); NEUTROPHILS % 68.1 % (39.0-77.0); PLATELET COUNT 108 10^3/UL (140-440); RED BLOOD COUNT 2.77 10^6/ul (4.70-6.10); RED CELL DISTRIBUTION WIDTH 18.3 % (11.5-14.5); UNCORRECTED WBC 4.1 10^3/ul (4.8-10.8); WHITE BLOOD COUNT 4.1 10^3/ul (4.8-10.8)
[2016-07-13 07:12] LABS: IRON 48 ug/dl (35-150)
[2016-07-13 07:21] LABS: TOTAL IRON BINDING CAPACITY 167 ug/dl (241-421)
[2016-07-13 07:32] LABS: CONDITION 1; LH ANALYZER COMMENTS 1
[2016-07-13] MEDS: LACTOBACILLUS CHEW TAB PO SCH ×3 (10:18→20:12)
[2016-07-13] MEDS: AMLODIPINE 10 MG TAB PO SCH (10:18)
[2016-07-13] MEDS: FERROUS SULFATE (EC) 325 MG TAB PO SCH (10:18)
[2016-07-13] MEDS: FINASTERIDE 5 MG TAB PO SCH (10:19)
[2016-07-13] MEDS: FLUCONAZOLE 100 MG TAB PO SCH (10:19)
--- NOTE | 2016-07-13 10:55 | PN ---
Date/Time of Note Date/Time of Note DATE: 07/13/16 TIME: 10:55 Assessment/Plan VTE Prophylaxis VTE Prophylaxis Intervention: SCD's Lines/Catheters IV Catheter Type (from Nrs): Peripheral IV Urinary Cath still in place: Yes Reason Cath still needed: urinary retention Assessment/Plan Chief Complaint/Hosp Course ASSESSMENT AND PLAN: 56-year-old male transferred from outside hospital due to sepsis secondary to urinary tract infection, enterococcus, and renal insufficiency, questionable history of hypertension, diabetes, and cirrhosis, and also now with a spinal abscess. 1. Sepsis. Again, most likely secondary to combination of urinary tract infection and spinal abscess = 1.8 cm left psoas abscess, probable epidural phlegmon abscess in the L2-L3 region. Patient did not appear to have any focal deficits or signs of any significant spinal stenosis on admission. Now is POD # 1 NSS abscess removal in OR. - pain control, abx, f/u post-op rec's - continue broad-spectrum antibiotics, cefepime and vancomycin, This will treat both the UTI and hopefully the spinal abscess. - f/u infectious disease rec's. - May need to workup his questionable liver cirrhosis that was seen on the imaging study. It is unclear if the patient has had a prior history of cirrhosis. 2. Chronic kidney disease due to diabetic nephropathy with acute renal failure superimposed - f/u renal consult given his renal insufficiency, Kayexalate for high K+ today 2. For his diabetes type 2 - A1c = 6.4 -, put him on sliding scale insulin. 3. Hypertension, Blood pressure stable. Continue current medications. 4. History of anemia - s/p pRBC transfusion 2 units earlier this admission, butH/H lower today -repeat H/H, if hbg < 8 - will transfuse again pRBC. 5. Questionable hematuria. Will continue to monitor for now. 6. Gastrointestinal prophylaxis; PPIs. 7. Deep venous thrombosis prophylaxis; SCDs. Problems: Subjective 24 Hr Interval Summary Free Text/Dictation Pt had surgery yesterday, had some pain last night. Exam/Review of Systems Vital Signs Vitals Vital Signs Date Time Temp Pulse Resp B/P Pulse Ox O2 Delivery O2 Flow Rate FiO2 07/13/16 08:20 71 07/13/16 07:56 97.7 17 141/74 98 07/12/16 20:10 Nasal Cannula 2.0 Intake and Output 07/12/16 07/12/16 07/13/16 15:00 23:00 07:00 Intake Total 350 ml 1350 ml 670 ml Output Total 480 ml 760 ml Balance 350 ml 870 ml -90 ml Exam GENERAL: The patient is lying in bed, answering questions appropriately, alert. HEENT: Pupils equal, round, react to light. Extraocular muscles are intact. NECK: Supple, no thyromegaly. LUNGS: Clear to auscultation bilaterally. CARDIOVASCULAR: S1, S2 heard. No rubs or gallops. ABDOMEN: Soft, nontender, nondistended. Normal bowel sounds. No rebound or guarding. MUSCULOSKELETAL: 1+ pitting edema bilateral lower extremities to the mid calves. NEUROLOGIC: Weak lower extremities, but able to move all extremities. No signs of any focal deficits. Sensation appears to be intact bilateral lower extremities and upper extremities. Gait was not assessed. Results Result Diagram: 07/13/16 0619 07/13/16 0619 Results 24 hrs Laboratory Tests Test 07/12/16 11:13 07/12/16 12:34 07/12/16 13:34 07/12/16 15:00 Bedside Glucose 80 81 Stool Occult Blood NEGATIVE Activated Partial Thromboplast Time 34.4 Anion Gap 14 Basophils # 0.0 Basophils % 0.5 Blood Morphology Comment Blood Urea Nitrogen 38 H Calcium Level 8.3 L Carbon Dioxide Level 20 L Chloride Level 110 Creatinine 2.68 H Eosinophils # 0.1 Eosinophils % 3.2 Glucose Level 157 Hematocrit 27.0 L Hemoglobin 9.1 L INR International Normalized Ratio 1.24 Lymphocytes # 1.1 Lymphocytes % 37.1 Mean Corpuscular Hemoglobin 28.5 L Mean Corpuscular Hemoglobin Concent 33.8 Mean Corpuscular Volume 84.4 Mean Platelet Volume 7.0 L Monocytes # 0.2 L Monocytes % 6.9 Neutrophils # 1.6 Neutrophils % 52.3 Nucleated Red Blood Cells # 0.0 Nucleated Red Blood Cells % 0.0 Platelet Count 128 L Potassium Level 5.6 H Prothrombin Time 15.7 H Prothrombin Time Ratio 1.2 Red Blood Count 3.20 L Red Cell Distribution Width 17.9 H Sodium Level 138 White Blood Count 3.0 L Test 07/12/16 15:09 07/12/16 17:17 07/12/16 18:25 07/12/16 20:56 Bedside Glucose 173 159 155 Anion Gap 14 Basophils # 0.0 Basophils % 0.5 Blood Morphology Comment Blood Urea Nitrogen 38 H Calcium Level 7.5 L Carbon Dioxide Level 21 Chloride Level 110 Creatinine 2.73 H Eosinophils # 0.1 Eosinophils % 3.6 Glucose Level 155 Hematocrit 27.7 L Hemoglobin 9.5 L Lymphocytes # 0.8 Lymphocytes % 28.8 Mean Corpuscular Hemoglobin 28.7 L Mean Corpuscular Hemoglobin Concent 34.2 Mean Corpuscular Volume 83.9 Mean Platelet Volume 6.6 L Monocytes # 0.2 L Monocytes % 6.7 Neutrophils # 1.7 Neutrophils % 60.4 Nucleated Red Blood Cells # 0.0 Nucleated Red Blood Cells % 0.0 Platelet Count 110 L Potassium Level 5.5 H Red Blood Count 3.31 L Red Cell Distribution Width 18.0 H Sodium Level 139 White Blood Count 2.8 L Test 07/13/16 00:47 07/13/16 04:35 07/13/16 06:19 07/13/16 08:04 Bedside Glucose 144 125 116 Alanine Aminotransferase (ALT/SGPT) 30 Albumin 2.5 L Albumin/Globulin Ratio 0.73 Alkaline Phosphatase 68 Anion Gap 17 H Aspartate Amino Transf (AST/SGOT) 18 Basophils # 0.0 Basophils % 0.5 Blood Morphology Comment Blood Urea Nitrogen 40 H Calcium Level 7.6 L Carbon Dioxide Level 20 L Chloride Level 110 Creatinine 2.67 H Direct Bilirubin 0.00 Eosinophils # 0.1 Eosinophils % 1.7 Ferritin 437.0 H Globulin 3.40 H Glucose Level 112 # Hematocrit 23.5 L Hemoglobin 8.1 L Indirect Bilirubin 0.1 Iron Level 48 Lymphocytes # 0.9 Lymphocytes % 21.4 Mean Corpuscular Hemoglobin 29.1 Mean Corpuscular Hemoglobin Concent 34.3 Mean Corpuscular Volume 84.7 Mean Platelet Volume 7.3 L Monocytes # 0.3 Monocytes % 8.3 Neutrophils # 2.8 Neutrophils % 68.1 Nucleated Red Blood Cells # 0.0 Nucleated Red Blood Cells % 0.0 Percent Iron Saturation 29 Phosphorus Level 5.8 H Platelet Count 108 L Potassium Level 5.2 H Red Blood Count 2.77 L Red Cell Distribution Width 18.3 H Sodium Level 142 Total Bilirubin 0.1 L Total Iron Binding Capacity 167 L Total Protein 5.9 L White Blood Count 4.1 #L Medications Medications Current Medications Ondansetron HCl (Zofran Inj) 4 mg Q6H PRN IV NAUSEA AND/OR VOMITING Last administered on 07/12/16 23:41; Admin Dose 4 MG; Start 07/10/16 at 17:30 Docusate Sodium (Colace) 100 mg Q12H PRN PO CONSTIPATION; Start 07/10/16 at 17: 30 Pantoprazole (Protonix Iv) 40 mg DAILY@06 IV Last administered on 07/13/16 06: 01; Admin Dose 40 MG; Start 07/11/16 at 06:00 Lorazepam (Ativan) 0.5 mg Q6H PRN IV ANXIETY; Start 07/10/16 at 17:30 Hydralazine HCl (Apresoline) 10 mg Q6H PRN IV ELEVATED BLOOD PRESSURE; Start at 17:30 Clonidine (Catapres) 0.1 mg Q6H PRN PO ELEVATED BLOOD PRESSURE; Start 07/10/16 at 17:30 Nitroglycerin (Nitroglycerin (Sl Tab) 0.4 Mg) 1 tab Q5M PRN SL ANGINA; Start at 17:30 Amlodipine Besylate (Norvasc) 10 mg DAILY PO Last administered on 07/13/16 10: 18; Admin Dose 10 MG; Start 07/11/16 at 09:00 Carvedilol (Coreg) 6.25 mg BID PO Last administered on 07/11/16 21:35; Admin Dose 6.25 MG; Start 07/10/16 at 21:00 Ferrous Sulfate (Ferrous Sulfate (Ec)) 325 mg DAILY PO Last administered on 10:18; Admin Dose 325 MG; Start 07/11/16 at 09:00 Lactobacillus Acidoph/Bulgaricus (Floranex) 1 tab TID PO Last administered on 10:18; Admin Dose 1 TAB; Start 07/10/16 at 21:00 Miscellaneous Information 1 ea NOTE XX ; Start 07/10/16 at 17:30 Glucose (Glutose) 15 gm Q15M PRN PO DECREASED GLUCOSE; Start 07/10/16 at 17:30 Glucose (Glutose) 22.5 gm Q15M PRN PO DECREASED GLUCOSE; Start 07/10/16 at 17: 30 Dextrose (D50w Syringe) 25 ml Q15M PRN IV DECREASED GLUCOSE Last administered on 07/12/16 07:54; Admin Dose 25 ML; Start 07/10/16 at 17:30 Dextrose (D50w Syringe) 50 ml Q15M PRN IV DECREASED GLUCOSE Last administered on 07/11/16 05:05; Admin Dose 50 ML; Start 07/10/16 at 17:30 Glucagon (Glucagen) 1 mg Q15M PRN IM DECREASED GLUCOSE; Start 07/10/16 at 17:30 Glucose 15 gm 15 gm Q15M PRN BUCCAL DECREASED GLUCOSE; Start 07/10/16 at 17:30 Cefepime HCl 50 ml @ 100 mls/hr Q24H IVPB Last administered on 07/12/16 22:17 ; Admin Dose 100 MLS/HR; Start 07/10/16 at 21:00 Vancomycin HCl (Vancocin) 100 ml @ 100 mls/hr Q24H IVPB Last administered on 12:23; Admin Dose 100 MLS/HR; Start 07/11/16 at 13:30 Insulin Glargine (Lantus) 5 unit QHS SC Last administered on 07/11/16 23:28; Admin Dose 5 UNIT; Start 07/11/16 at 23:30 Miscellaneous Information (*Rx Drug Level Order Reminder*) VANCOMYCIN TROUGH AT 1230 ONCE ONCE XX ; Start 07/13/16 at 12:30; Stop 07/13/16 at 12:31 Finasteride (Proscar) 5 mg DAILY PO Last administered on 07/13/16 10:19; Admin Dose 5 MG; Start 07/13/16 at 09:00 Acetaminophen/ Hydrocodone Bitart (Boelus (10/325)) 2 tab Q4H PRN PO PAIN LEVEL 6-10 Last administered on 07/12/16 22:20; Admin Dose 2 TAB; Start 07/12/16 at 17:00 Hydromorphone HCl (Dilaudid) 0.2 mg Q1H PRN IV BREAKTHROUGH PAIN Last administered on 07/13/16 10:18; Admin Dose 0.2 MG; Start 07/12/16 at 17:00 Naloxone HCl (Narcan) 0.2 mg Q2M PRN IV RR 8 BREATHS/MIN OR LESS; Start at 17:00 Fluconazole 100 mg 100 mg DAILY PO Last administered on 07/13/16 10:19; Admin Dose 100 MG; Start 07/13/16 at 09:00 Sodium Chloride (1/2 NS) 1,000 ml @ 100 mls/hr Q10H IV Last administered on 04:31; Admin Dose 100 MLS/HR; Start 07/13/16 at 04:30 PHANI REYES Jul 13, 2016 10:55
--- NOTE | 2016-07-13 11:52 | CONS ---
Date/Time of Note Date/Time of Note DATE: 07/13/16 TIME: 11:51 Assessment/Plan Assessment/Plan Additional Assessment/Plan 1. CKD, stable 2. Sl inc K+, will give additional kayexelate and ck abg 3. Post op lumbar spine abscess Consultation Date/Type/Reason Admit Date/Time Jul 10, 2016 at 15:03 Type of Consultation: id Detailed Summary Respiratory: shortness of breath Cardiovascular: No chest pain Gastrointestinal: no complaints Genitourinary: no complaints Musculoskeletal: back pain (moderate) Exam/Review of Systems Vital Signs Vitals Vital Signs Date Time Temp Pulse Resp B/P Pulse Ox O2 Delivery O2 Flow Rate FiO2 07/13/16 08:20 71 07/13/16 07:56 97.7 17 141/74 98 07/12/16 20:10 Nasal Cannula 2.0 Intake and Output 07/12/16 07/12/16 07/13/16 15:00 23:00 07:00 Intake Total 350 ml 1350 ml 670 ml Output Total 480 ml 760 ml Balance 350 ml 870 ml -90 ml Exam Neck: No jvd Respiratory: clear to auscultation Cardiovascular: regular rate and rhythm Gastrointestinal: soft Extremities: No edema Results Result Diagram: 07/13/16 0619 07/13/16 0619 Results 24 hrs Laboratory Tests Test 07/12/16 12:34 07/12/16 13:34 07/12/16 15:00 07/12/16 15:09 Stool Occult Blood NEGATIVE Bedside Glucose 81 173 Activated Partial Thromboplast Time 34.4 Anion Gap 14 Basophils # 0.0 Basophils % 0.5 Blood Morphology Comment Blood Urea Nitrogen 38 H Calcium Level 8.3 L Carbon Dioxide Level 20 L Chloride Level 110 Creatinine 2.68 H Eosinophils # 0.1 Eosinophils % 3.2 Glucose Level 157 Hematocrit 27.0 L Hemoglobin 9.1 L INR International Normalized Ratio 1.24 Lymphocytes # 1.1 Lymphocytes % 37.1 Mean Corpuscular Hemoglobin 28.5 L Mean Corpuscular Hemoglobin Concent 33.8 Mean Corpuscular Volume 84.4 Mean Platelet Volume 7.0 L Monocytes # 0.2 L Monocytes % 6.9 Neutrophils # 1.6 Neutrophils % 52.3 Nucleated Red Blood Cells # 0.0 Nucleated Red Blood Cells % 0.0 Platelet Count 128 L Potassium Level 5.6 H Prothrombin Time 15.7 H Prothrombin Time Ratio 1.2 Red Blood Count 3.20 L Red Cell Distribution Width 17.9 H Sodium Level 138 White Blood Count 3.0 L Test 07/12/16 17:17 07/12/16 18:25 07/12/16 20:56 07/13/16 00:47 Bedside Glucose 159 155 144 Anion Gap 14 Basophils # 0.0 Basophils % 0.5 Blood Morphology Comment Blood Urea Nitrogen 38 H Calcium Level 7.5 L Carbon Dioxide Level 21 Chloride Level 110 Creatinine 2.73 H Eosinophils # 0.1 Eosinophils % 3.6 Glucose Level 155 Hematocrit 27.7 L Hemoglobin 9.5 L Lymphocytes # 0.8 Lymphocytes % 28.8 Mean Corpuscular Hemoglobin 28.7 L Mean Corpuscular Hemoglobin Concent 34.2 Mean Corpuscular Volume 83.9 Mean Platelet Volume 6.6 L Monocytes # 0.2 L Monocytes % 6.7 Neutrophils # 1.7 Neutrophils % 60.4 Nucleated Red Blood Cells # 0.0 Nucleated Red Blood Cells % 0.0 Platelet Count 110 L Potassium Level 5.5 H Red Blood Count 3.31 L Red Cell Distribution Width 18.0 H Sodium Level 139 White Blood Count 2.8 L Test 07/13/16 04:35 07/13/16 06:19 07/13/16 08:04 07/13/16 11:40 Bedside Glucose 125 116 98 Alanine Aminotransferase (ALT/SGPT) 30 Albumin 2.5 L Albumin/Globulin Ratio 0.73 Alkaline Phosphatase 68 Anion Gap 17 H Aspartate Amino Transf (AST/SGOT) 18 Basophils # 0.0 Basophils % 0.5 Blood Morphology Comment Blood Urea Nitrogen 40 H Calcium Level 7.6 L Carbon Dioxide Level 20 L Chloride Level 110 Creatinine 2.67 H Direct Bilirubin 0.00 Eosinophils # 0.1 Eosinophils % 1.7 Ferritin 437.0 H Globulin 3.40 H Glucose Level 112 # Hematocrit 23.5 L Hemoglobin 8.1 L Indirect Bilirubin 0.1 Iron Level 48 Lymphocytes # 0.9 Lymphocytes % 21.4 Mean Corpuscular Hemoglobin 29.1 Mean Corpuscular Hemoglobin Concent 34.3 Mean Corpuscular Volume 84.7 Mean Platelet Volume 7.3 L Monocytes # 0.3 Monocytes % 8.3 Neutrophils # 2.8 Neutrophils % 68.1 Nucleated Red Blood Cells # 0.0 Nucleated Red Blood Cells % 0.0 Percent Iron Saturation 29 Phosphorus Level 5.8 H Platelet Count 108 L Potassium Level 5.2 H Red Blood Count 2.77 L Red Cell Distribution Width 18.3 H Sodium Level 142 Total Bilirubin 0.1 L Total Iron Binding Capacity 167 L Total Protein 5.9 L White Blood Count 4.1 #L Medications Medications Current Medications Ondansetron HCl (Zofran Inj) 4 mg Q6H PRN IV NAUSEA AND/OR VOMITING Last administered on 07/12/16 23:41; Admin Dose 4 MG; Start 07/10/16 at 17:30 Docusate Sodium (Colace) 100 mg Q12H PRN PO CONSTIPATION; Start 07/10/16 at 17: 30 Pantoprazole (Protonix Iv) 40 mg DAILY@06 IV Last administered on 07/13/16 06: 01; Admin Dose 40 MG; Start 07/11/16 at 06:00 Lorazepam (Ativan) 0.5 mg Q6H PRN IV ANXIETY; Start 07/10/16 at 17:30 Hydralazine HCl (Apresoline) 10 mg Q6H PRN IV ELEVATED BLOOD PRESSURE; Start at 17:30 Clonidine (Catapres) 0.1 mg Q6H PRN PO ELEVATED BLOOD PRESSURE; Start 07/10/16 at 17:30 Nitroglycerin (Nitroglycerin (Sl Tab) 0.4 Mg) 1 tab Q5M PRN SL ANGINA; Start at 17:30 Amlodipine Besylate (Norvasc) 10 mg DAILY PO Last administered on 07/13/16 10: 18; Admin Dose 10 MG; Start 07/11/16 at 09:00 Carvedilol (Coreg) 6.25 mg BID PO Last administered on 07/11/16 21:35; Admin Dose 6.25 MG; Start 07/10/16 at 21:00 Ferrous Sulfate (Ferrous Sulfate (Ec)) 325 mg DAILY PO Last administered on 10:18; Admin Dose 325 MG; Start 07/11/16 at 09:00 Lactobacillus Acidoph/Bulgaricus (Floranex) 1 tab TID PO Last administered on 10:18; Admin Dose 1 TAB; Start 07/10/16 at 21:00 Miscellaneous Information 1 ea NOTE XX ; Start 07/10/16 at 17:30 Glucose (Glutose) 15 gm Q15M PRN PO DECREASED GLUCOSE; Start 07/10/16 at 17:30 Glucose (Glutose) 22.5 gm Q15M PRN PO DECREASED GLUCOSE; Start 07/10/16 at 17: 30 Dextrose (D50w Syringe) 25 ml Q15M PRN IV DECREASED GLUCOSE Last administered on 07/12/16 07:54; Admin Dose 25 ML; Start 07/10/16 at 17:30 Dextrose (D50w Syringe) 50 ml Q15M PRN IV DECREASED GLUCOSE Last administered on 07/11/16 05:05; Admin Dose 50 ML; Start 07/10/16 at 17:30 Glucagon (Glucagen) 1 mg Q15M PRN IM DECREASED GLUCOSE; Start 07/10/16 at 17:30 Glucose 15 gm 15 gm Q15M PRN BUCCAL DECREASED GLUCOSE; Start 07/10/16 at 17:30 Cefepime HCl 50 ml @ 100 mls/hr Q24H IVPB Last administered on 07/12/16 22:17 ; Admin Dose 100 MLS/HR; Start 07/10/16 at 21:00 Vancomycin HCl (Vancocin) 100 ml @ 100 mls/hr Q24H IVPB Last administered on 12:23; Admin Dose 100 MLS/HR; Start 07/11/16 at 13:30 Insulin Glargine (Lantus) 5 unit QHS SC Last administered on 07/11/16 23:28; Admin Dose 5 UNIT; Start 07/11/16 at 23:30 Miscellaneous Information (*Rx Drug Level Order Reminder*) VANCOMYCIN TROUGH AT 1230 ONCE ONCE XX ; Start 07/13/16 at 12:30; Stop 07/13/16 at 12:31 Finasteride (Proscar) 5 mg DAILY PO Last administered on 07/13/16 10:19; Admin Dose 5 MG; Start 07/13/16 at 09:00 Acetaminophen/ Hydrocodone Bitart ([place] (10325)) 2 tab Q4H PRN PO PAIN LEVEL 6-10 Last administered on 07/12/16 22:20; Admin Dose 2 TAB; Start 07/12/16 at 17:00 Hydromorphone HCl (Dilaudid) 0.2 mg Q1H PRN IV BREAKTHROUGH PAIN Last administered on 07/13/16 10:18; Admin Dose 0.2 MG; Start 07/12/16 at 17:00 Naloxone HCl (Narcan) 0.2 mg Q2M PRN IV RR 8 BREATHS/MIN OR LESS; Start at 17:00 Fluconazole 100 mg 100 mg DAILY PO Last administered on 07/13/16 10:19; Admin Dose 100 MG; Start 07/13/16 at 09:00 Sodium Chloride (1/2 NS) 1,000 ml @ 100 mls/hr Q10H IV Last administered on 04:31; Admin Dose 100 MLS/HR; Start 07/13/16 at 04:30 JOSE LEMA MD Jul 13, 2016 11:52
[2016-07-13] MEDS: VANCOMYCIN 500MG/NS (PMX) 100 ML IVPB SCH (13:21)
[2016-07-13 14:24] LABS: AADO2 Arterial 36.4 mmHg (7.0-24.0); Allen Test ACCEPTAB; Arterial Base Excess -7.4 mmol/L (-3.0-3); Arterial COHb 0 % (0.0-3.0); Arterial Fraction of Oxyhgb 96.8 % (93.0-99.0); Arterial MetHb 0.4 % (0.0-1.5); Arterial Total Hemglobin 8.1 g/dl (12.0-18.0); MODE NASAL CANNULA
--- NOTE | 2016-07-13 19:10 | PN ---
DATE: 07/13/2016 SUBJECTIVE: No events. The patient is alert, eating dinner, looks comfortable. No fevers. ANTIMICROBIALS: 1. Vancomycin. 2. Cefepime. MICROBIOLOGY: Intraoperative culture, Gram stain positive for gram-positive cocci in pairs. Urine culture grew Enterobacter aerogenesis and Katharina glabrata. Intraoperative final cultures pending. PHYSICAL EXAMINATION: GENERAL: Well-developed, middle-aged, man who is alert, in no distress. HEENT: Head atraumatic, normocephalic. Sclerae anicteric. The patient has some redness on his rig ht eye with some drainage. Buccal mucosa pink. NECK: Supple, trachea midline. CHEST: Rise symmetrical. Breath sounds clear. HEART: S1, S2. ABDOMEN: Soft, bowel tones present. EXTREMITIES: Without cyanosis or edema. ASSESSMENT: 1. Lumbar diskitis with osteomyelitis and abscess, status post surgical intervention with wound cul ture preliminary negative, but Gram stain positive for gram-positive cocci in pairs. 2. Urinary tract infection. 3. Right conjunctivitis. 4. Diabetes. 5. Hypertension. PLAN: The patient remains stable postoperatively. Final cultures are pending. He is covered with appropriate antimicrobials. We will start ____ drops. Follow ortho recommendations. Dictated By: DORENE GARCIA MAIL SERVICE COORDINATOR for PARDEEP MATTA/ERICKA Conf#: [id number] DID#: [id number]
[2016-07-13] MEDS: CEFEPIME 2GM/50 ML (PMX) 50 ML IVPB SCH (20:12)
[2016-07-13] MEDS: INSULIN GLARGINE [LANtus] 3 ML PEN SC SCH (23:11)
[2016-07-14] VITALS (17 sets, daily range): BP systolic 148–189; BP diastolic 77–101; PULSE 71–76; RESP 18–20
[2016-07-14] MEDS ORDERED: SODIUM BICARBONATE (IV ADD) 140 MEQ in DEXTROSE 5% 1,000 ML IV ONE (00:30)
[2016-07-14] MEDS: HYDROmorphONE 1 MG/ML SYG IV PRN ×7 (01:05→21:15)
[2016-07-14] MEDS: CIPROFLOXACIN 0.3% 2.5 ML OPH RIGHT EYE SCH ×4 (02:17→21:27)
[2016-07-14] MEDS: VANCOMYCIN 500MG/NS (PMX) 100 ML IVPB SCH (02:33)
[2016-07-14] MEDS: PANTOPRAZOLE 40 MG INJ IV SCH (06:00)
[2016-07-14 06:54] LABS: BASOPHILS % 0.5 % (0.0-2.0); EOSINOPHILS # 0.1 10^3/ul (0.0-0.5); EOSINOPHILS % 2.2 % (0.0-7.0); HEMATOCRIT 21.5 % (42.0-52.0); HEMOGLOBIN 7.4 g/dl (14.0-18.0); LYMPHOCYTES # 1.2 10^3/ul (0.8-2.9); LYMPHOCYTES % 28.6 % (15.0-51.0); MEAN CORPUSCULAR HEMOGLOBIN 29.1 pg (29.0-33.0); MEAN CORPUSCULAR HGB CONC 34.3 g/dl (32.0-37.0); MEAN CORPUSCULAR VOLUME 84.6 fl (82.0-101.0); MONOCYTE # 0.5 10^3/ul (0.3-0.9); MONOCYTES % 12.2 % (0.0-11.0); NEUTROPHIL # 2.4 10^3/ul (1.6-7.5); NEUTROPHILS % 56.5 % (39.0-77.0); PLATELET COUNT 126 10^3/UL (140-440); RED BLOOD COUNT 2.54 10^6/ul (4.70-6.10); RED CELL DISTRIBUTION WIDTH 17.8 % (11.5-14.5); UNCORRECTED WBC 4.3 10^3/ul (4.8-10.8); WHITE BLOOD COUNT 4.3 10^3/ul (4.8-10.8)
[2016-07-14 06:57] LABS: CONDITION 1; LH ANALYZER COMMENTS 1
[2016-07-14 07:02] LABS: POTASSIUM 4.5 mmol/L (3.5-5.1)
[2016-07-14 07:05] LABS: CALCIUM 7.7 mg/dl (8.4-10.2); CREATININE 2.61 mg/dl (0.61-1.24)
[2016-07-14] MEDS: INSULIN ASPART [NOVOLOG] 3 ML PEN SC SCH ×4 (07:25→21:00)
[2016-07-14] MEDS: FLUCONAZOLE 100 MG TAB PO SCH (08:16)
[2016-07-14] MEDS: FERROUS SULFATE (EC) 325 MG TAB PO SCH ×2 (08:16→21:16)
[2016-07-14] MEDS: LACTOBACILLUS CHEW TAB PO SCH ×3 (08:16→21:15)
[2016-07-14] MEDS: FINASTERIDE 5 MG TAB PO SCH (08:17)
[2016-07-14] MEDS: AMLODIPINE 10 MG TAB PO SCH (08:17)
[2016-07-14] MEDS ORDERED: SOD CHLORIDE 0.9% 250 ML IV* ONE (08:31)
--- NOTE | 2016-07-14 08:55 | CONS ---
Date/Time of Note Date/Time of Note DATE: 07/14/16 TIME: 08:48 Assessment/Plan Assessment/Plan Chief Complaint/Hosp Course 1. He is now 2 days post op a lumbar laminectomy at the L2 L3 level with a drainage of an abscess . He is feeling better today . 2. CKD , his renal function is about the same . 3. anemia , will start Epogen and give a 2 unit blood transfusion today . Furosemide to be given after first unit of blood . 4. labs ordered for tomorrow . Problems: Consultation Date/Type/Reason Admit Date/Time Jul 10, 2016 at 15:03 Initial Consult Date Type of Consultation: id 24 HR Interval Summary Free Text/Dictation He is now 2 days post op a lumbar laminectomy at the L2 L3 level with drainage of an abscess . Constitutional: improved, no complaints Exam/Review of Systems Vital Signs Vitals Vital Signs Date Time Temp Pulse Resp B/P Pulse Ox O2 Delivery O2 Flow Rate FiO2 07/14/16 07:50 98.0 70 18 150/82 98 07/13/16 08:10 Nasal Cannula 2.0 Intake and Output 07/13/16 07/13/16 07/14/16 15:00 23:00 07:00 Intake Total 1900 ml 100 ml Output Total 50 ml 613 ml 354 ml Balance -50 ml 1287 ml -254 ml Exam Constitutional: alert, oriented Psych: nl mood/affect, no complaints Respiratory: clear to auscultation Cardiovascular: regular rate and rhythm Gastrointestinal: soft Extremities: edema Results Result Diagram: 07/14/16 0559 07/14/16 0559 Results 24 hrs Laboratory Tests Test 07/13/16 11:40 07/13/16 12:20 07/13/16 13:00 07/13/16 13:45 Bedside Glucose 98 Vancomycin Level Trough 20.6 *H Arterial Blood HCO3 18.0 L Arterial Blood Base Excess -7.4 L Arterial Blood Oxygen Saturation 97.2 Mauri Test ACCEPTAB Arterial Blood Gas Puncture Site Right Radial Arterial Blood Carboxyhemoglobin 0 Arterial Blood Date Drawn 07/13/2016 2:14:24 PM Arterial Blood Methemoglobin 0.4 Arterial Blood pCO2 (Temp correct) 35.7 Arterial Blood pH (Temp corrected) 7.321 L Arterial Blood pO2 (Temp corrected) 113.9 H Blood Gas A-a O2 Differential 36.4 H Blood Gas Critical Value Read Back ab Blood Gas Modality NASAL CANNULA Blood Gas Notified Time 07/13/2016 2:24:35 PM Blood Gas Notified Whom ab Blood Gas Specimen Source Blood arterial Blood Gas Temperature 37.0 FiO2 27.0 Oxyhemoglobin Percent 96.8 Total Hemoglobin 8.1 L Hematocrit 23.2 L Test 07/13/16 17:18 07/13/16 19:48 07/14/16 02:22 07/14/16 05:59 Bedside Glucose 149 152 101 Anion Gap 16 Basophils # 0.0 Basophils % 0.5 Blood Morphology Comment Blood Urea Nitrogen 41 H Calcium Level 7.7 L Carbon Dioxide Level 21 Chloride Level 111 H Creatinine 2.61 H Eosinophils # 0.1 Eosinophils % 2.2 Glucose Level 41 #*L Hematocrit 21.5 L Hemoglobin 7.4 L Lymphocytes # 1.2 Lymphocytes % 28.6 Mean Corpuscular Hemoglobin 29.1 Mean Corpuscular Hemoglobin Concent 34.3 Mean Corpuscular Volume 84.6 Mean Platelet Volume 7.0 L Monocytes # 0.5 Monocytes % 12.2 H Neutrophils # 2.4 Neutrophils % 56.5 Nucleated Red Blood Cells # 0.0 Nucleated Red Blood Cells % 0.0 Platelet Count 126 L Potassium Level 4.5 Red Blood Count 2.54 L Red Cell Distribution Width 17.8 H Sodium Level 143 White Blood Count 4.3 L Test 07/14/16 07:16 07/14/16 07:40 Bedside Glucose 44 *L 49 *L Medications Medications Current Medications Ondansetron HCl (Zofran Inj) 4 mg Q6H PRN IV NAUSEA AND/OR VOMITING Last administered on 07/12/16 23:41; Admin Dose 4 MG; Start 07/10/16 at 17:30 Docusate Sodium (Colace) 100 mg Q12H PRN PO CONSTIPATION; Start 07/10/16 at 17: 30 Pantoprazole (Protonix Iv) 40 mg DAILY@06 IV Last administered on 07/14/16 06: 00; Admin Dose 40 MG; Start 07/11/16 at 06:00 Lorazepam (Ativan) 0.5 mg Q6H PRN IV ANXIETY; Start 07/10/16 at 17:30 Hydralazine HCl (Apresoline) 10 mg Q6H PRN IV ELEVATED BLOOD PRESSURE; Start at 17:30 Clonidine (Catapres) 0.1 mg Q6H PRN PO ELEVATED BLOOD PRESSURE; Start 07/10/16 at 17:30 Nitroglycerin (Nitroglycerin (Sl Tab) 0.4 Mg) 1 tab Q5M PRN SL ANGINA; Start at 17:30 Amlodipine Besylate (Norvasc) 10 mg DAILY PO Last administered on 07/14/16 08: 17; Admin Dose 10 MG; Start 07/11/16 at 09:00 Carvedilol (Coreg) 6.25 mg BID PO Last administered on 07/14/16 08:15; Admin Dose 6.25 MG; Start 07/10/16 at 21:00 Ferrous Sulfate (Ferrous Sulfate (Ec)) 325 mg DAILY PO Last administered on 08:16; Admin Dose 325 MG; Start 07/11/16 at 09:00 Lactobacillus Acidoph/Bulgaricus (Floranex) 1 tab TID PO Last administered on 08:16; Admin Dose 1 TAB; Start 07/10/16 at 21:00 Miscellaneous Information 1 ea NOTE XX ; Start 07/10/16 at 17:30 Glucose (Glutose) 15 gm Q15M PRN PO DECREASED GLUCOSE; Start 07/10/16 at 17:30 Glucose (Glutose) 22.5 gm Q15M PRN PO DECREASED GLUCOSE; Start 07/10/16 at 17: 30 Dextrose (D50w Syringe) 25 ml Q15M PRN IV DECREASED GLUCOSE Last administered on 07/12/16 07:54; Admin Dose 25 ML; Start 07/10/16 at 17:30 Dextrose (D50w Syringe) 50 ml Q15M PRN IV DECREASED GLUCOSE Last administered on 07/11/16 05:05; Admin Dose 50 ML; Start 07/10/16 at 17:30 Glucagon (Glucagen) 1 mg Q15M PRN IM DECREASED GLUCOSE; Start 07/10/16 at 17:30 Glucose 15 gm 15 gm Q15M PRN BUCCAL DECREASED GLUCOSE; Start 07/10/16 at 17:30 Cefepime HCl (Maxipime 2gm/50 ml (Pmx)) 50 ml @ 100 mls/hr Q24H IVPB Last administered on 07/13/16 20:12; Admin Dose 100 MLS/HR; Start 07/10/16 at 21:00 Insulin Glargine (Lantus) 5 unit QHS SC Last administered on 07/13/16 23:11; Admin Dose 5 UNIT; Start 07/11/16 at 23:30 Finasteride (Proscar) 5 mg DAILY PO Last administered on 07/14/16 08:17; Admin Dose 5 MG; Start 07/13/16 at 09:00 Acetaminophen/ Hydrocodone Bitart ([place] (10/325)) 2 tab Q4H PRN PO PAIN LEVEL 6-10 Last administered on 07/12/16 22:20; Admin Dose 2 TAB; Start 07/12/16 at 17:00 Hydromorphone HCl (Dilaudid) 0.2 mg Q1H PRN IV BREAKTHROUGH PAIN Last administered on 07/14/16 05:59; Admin Dose 0.2 MG; Start 07/12/16 at 17:00 Naloxone HCl (Narcan) 0.2 mg Q2M PRN IV RR 8 BREATHS/MIN OR LESS; Start at 17:00 Fluconazole 100 mg 100 mg DAILY PO Last administered on 07/14/16 08:16; Admin Dose 100 MG; Start 07/13/16 at 09:00 Vancomycin HCl (Vancocin) 100 ml @ 100 mls/hr Q36H IVPB Last administered on 02:33; Admin Dose 100 MLS/HR; Start 07/14/16 at 03:00 Ciprofloxacin HCl (Ciloxan 0.3% Oph) 1 drop TID RIGHT EYE Last administered on 07/14/16 08:17; Admin Dose 1 DROP; Start 07/13/16 at 21:00 Sodium Bicarbonate (Sodium Bicarbonate Tab) 650 mg TID PO ; Start 07/14/16 at 09 :00; Status UNV Epoetin Mauricio (Epogen (Esrd)) 10,000 units MoWeFr@17 SC ; Start 07/14/16 at 17:00 ; Status UNV JACOB WHEELER MD Jul 14, 2016 08:54
[2016-07-14] MEDS ORDERED: FUROSEMIDE 40 MG INJ IV ONE (09:00)
[2016-07-14] MEDS: NA BICARBONATE 650 MG TAB PO SCH ×3 (09:53→21:16)
--- NOTE | 2016-07-14 13:03 | PN ---
Date/Time of Note Date/Time of Note DATE: 07/14/16 TIME: 12:44 Assessment/Plan VTE Prophylaxis VTE Prophylaxis Intervention: SCD's Lines/Catheters IV [facility]from [facility] Peripheral IV Urinary Cath still in place: No Assessment/Plan Assessment/Plan 56-year-old male transferred from outside hospital managed as follows 1. Sepsis 2/2 Spinal abscess / UTI 2. Lumbar epidural abscess : Staph aureus * s/p evacuation Chronic kidney disease r/o ARF 2/2 diuretic therapy Patient's baseline Cr seems to be about 2 3. ? Diabetes type 2 - A1c = 6.4 4. Hypertension: uncontrolled 5. Anemia 2/2 CKD Has received 2 units so far / planned for 2 more today per renal 6. 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 Deep venous thrombosis prophylaxis; SCDs. Subjective 24 Hr Interval Summary Free Text/Dictation Patient seen and examined. Exam/Review of Systems Vital Signs Vitals Vital Signs Date Time Temp Pulse Resp B/P Pulse Ox O2 Delivery O2 Flow Rate FiO2 07/14/16 12:30 98.0 73 18 188/94 99 07/13/16 08:10 Nasal Cannula 2.0 Intake and Output 07/13/16 07/13/16 07/14/16 15:00 23:00 07:00 Intake Total 1900 ml 100 ml Output Total 50 ml 613 ml 354 ml Balance -50 ml 1287 ml -254 ml Exam Constitutional: alert, oriented Head: normocephalic Neck: supple Respiratory: clear to auscultation Cardiovascular: regular rate and rhythm Gastrointestinal: soft Results Result Diagram: 07/14/16 0559 07/14/16 0559 Results 24 hrs Laboratory Tests Test 07/13/16 13:00 07/13/16 13:45 07/13/16 17:18 07/13/16 19:48 Arterial Blood HCO3 18.0 L Arterial Blood Base Excess -7.4 L Arterial Blood Oxygen Saturation 97.2 Mauri Test ACCEPTAB Arterial Blood Gas Puncture Site Right Radial Arterial Blood Carboxyhemoglobin 0 Arterial Blood Date Drawn 07/13/2016 2:14:24 PM Arterial Blood Methemoglobin 0.4 Arterial Blood pCO2 (Temp correct) 35.7 Arterial Blood pH (Temp corrected) 7.321 L Arterial Blood pO2 (Temp corrected) 113.9 H Blood Gas A-a O2 Differential 36.4 H Blood Gas Critical Value Read Back ab Blood Gas Modality NASAL CANNULA Blood Gas Notified Time 07/13/2016 2:24:35 PM Blood Gas Notified Whom ab Blood Gas Specimen Source Blood arterial Blood Gas Temperature 37.0 FiO2 27.0 Oxyhemoglobin Percent 96.8 Total Hemoglobin 8.1 L Hematocrit 23.2 L Bedside Glucose 149 152 Test 07/14/16 02:22 07/14/16 05:59 07/14/16 07:16 07/14/16 07:40 Bedside Glucose 101 44 *L 49 *L Anion Gap 16 Basophils # 0.0 Basophils % 0.5 Blood Morphology Comment Blood Urea Nitrogen 41 H Calcium Level 7.7 L Carbon Dioxide Level 21 Chloride Level 111 H Creatinine 2.61 H Eosinophils # 0.1 Eosinophils % 2.2 Glucose Level 41 #*L Hematocrit 21.5 L Hemoglobin 7.4 L Lymphocytes # 1.2 Lymphocytes % 28.6 Mean Corpuscular Hemoglobin 29.1 Mean Corpuscular Hemoglobin Concent 34.3 Mean Corpuscular Volume 84.6 Mean Platelet Volume 7.0 L Monocytes # 0.5 Monocytes % 12.2 H Neutrophils # 2.4 Neutrophils % 56.5 Nucleated Red Blood Cells # 0.0 Nucleated Red Blood Cells % 0.0 Platelet Count 126 L Potassium Level 4.5 Red Blood Count 2.54 L Red Cell Distribution Width 17.8 H Sodium Level 143 White Blood Count 4.3 L Test 07/14/16 08:53 07/14/16 12:40 Bedside Glucose 82 112 Medications Medications Current Medications Ondansetron HCl (Zofran Inj) 4 mg Q6H PRN IV NAUSEA AND/OR VOMITING Last administered on 07/12/16 23:41; Admin Dose 4 MG; Start 07/10/16 at 17:30 Docusate Sodium (Colace) 100 mg Q12H PRN PO CONSTIPATION; Start 07/10/16 at 17: 30 Pantoprazole (Protonix Iv) 40 mg DAILY@06 IV Last administered on 07/14/16 06: 00; Admin Dose 40 MG; Start 07/11/16 at 06:00 Lorazepam (Ativan) 0.5 mg Q6H PRN IV ANXIETY; Start 07/10/16 at 17:30 Hydralazine HCl (Apresoline) 10 mg Q6H PRN IV ELEVATED BLOOD PRESSURE; Start at 17:30 Clonidine (Catapres) 0.1 mg Q6H PRN PO ELEVATED BLOOD PRESSURE; Start 07/10/16 at 17:30 Nitroglycerin (Nitroglycerin (Sl Tab) 0.4 Mg) 1 tab Q5M PRN SL ANGINA; Start at 17:30 Amlodipine Besylate (Norvasc) 10 mg DAILY PO Last administered on 07/14/16 08: 17; Admin Dose 10 MG; Start 07/11/16 at 09:00 Carvedilol (Coreg) 6.25 mg BID PO Last administered on 07/14/16 08:15; Admin Dose 6.25 MG; Start 07/10/16 at 21:00 Ferrous Sulfate (Ferrous Sulfate (Ec)) 325 mg DAILY PO Last administered on 08:16; Admin Dose 325 MG; Start 07/11/16 at 09:00 Lactobacillus Acidoph/Bulgaricus (Floranex) 1 tab TID PO Last administered on 12:41; Admin Dose 1 TAB; Start 07/10/16 at 21:00 Miscellaneous Information 1 ea NOTE XX ; Start 07/10/16 at 17:30 Glucose (Glutose) 15 gm Q15M PRN PO DECREASED GLUCOSE; Start 07/10/16 at 17:30 Glucose (Glutose) 22.5 gm Q15M PRN PO DECREASED GLUCOSE; Start 07/10/16 at 17: 30 Dextrose (D50w Syringe) 25 ml Q15M PRN IV DECREASED GLUCOSE Last administered on 07/12/16 07:54; Admin Dose 25 ML; Start 07/10/16 at 17:30 Dextrose (D50w Syringe) 50 ml Q15M PRN IV DECREASED GLUCOSE Last administered on 07/11/16 05:05; Admin Dose 50 ML; Start 07/10/16 at 17:30 Glucagon (Glucagen) 1 mg Q15M PRN IM DECREASED GLUCOSE; Start 07/10/16 at 17:30 Glucose 15 gm 15 gm Q15M PRN BUCCAL DECREASED GLUCOSE; Start 07/10/16 at 17:30 Cefepime HCl (Maxipime 2gm/50 ml (Pmx)) 50 ml @ 100 mls/hr Q24H IVPB Last administered on 07/13/16 20:12; Admin Dose 100 MLS/HR; Start 07/10/16 at 21:00 Insulin Glargine (Lantus) 5 unit QHS SC Last administered on 07/13/16 23:11; Admin Dose 5 UNIT; Start 07/11/16 at 23:30 Finasteride (Proscar) 5 mg DAILY PO Last administered on 07/14/16 08:17; Admin Dose 5 MG; Start 07/13/16 at 09:00 Acetaminophen/ Hydrocodone Bitart ([place] (10)) 2 tab Q4H PRN PO PAIN LEVEL 6-10 Last administered on 07/12/16 22:20; Admin Dose 2 TAB; Start 07/12/16 at 17:00 Hydromorphone HCl (Dilaudid) 0.2 mg Q1H PRN IV BREAKTHROUGH PAIN Last administered on 07/14/16 12:42; Admin Dose 0.2 MG; Start 07/12/16 at 17:00 Naloxone HCl (Narcan) 0.2 mg Q2M PRN IV RR 8 BREATHS/MIN OR LESS; Start at 17:00 Fluconazole 100 mg 100 mg DAILY PO Last administered on 07/14/16 08:16; Admin Dose 100 MG; Start 07/13/16 at 09:00 Vancomycin HCl (Vancocin) 100 ml @ 100 mls/hr Q36H IVPB Last administered on 02:33; Admin Dose 100 MLS/HR; Start 07/14/16 at 03:00 Ciprofloxacin HCl (Ciloxan 0.3% Oph) 1 drop TID RIGHT EYE Last administered on 07/14/16 12:42; Admin Dose 1 DROP; Start 07/13/16 at 21:00 Sodium Bicarbonate (Sodium Bicarbonate Tab) 650 mg TID PO Last administered on 07/14/16 12:41; Admin Dose 650 MG; Start 07/14/16 at 10:00 Epoetin Mauricio (Epogen (Esrd)) 10,000 units MoWeFr@17 SC ; Start 2/20/17 at 17:00 RAMON PUENTES Jul 14, 2016 12:55
[2016-07-14] MEDS: hydrALAzine 20 MG INJ IV PRN (14:03)
--- NOTE | 2016-07-14 14:51 | CONS ---
Date/Time of Note Date/Time of Note DATE: 07/14/16 TIME: 14:49 Assessment/Plan Assessment/Plan Chief Complaint/Hosp Course SUBJECTIVE: No events. The patient is alert, looks comfortable. No fevers. ANTIMICROBIALS: 1. Vancomycin. 2. Cefepime. 3. Cipro otic gtts MICROBIOLOGY: Intraoperative culture, Gram stain positive for gram-positive cocci in pairs. Urine culture grew Enterobacter aerogenesis and Katharina glabrata. PHYSICAL EXAMINATION: GENERAL: Well-developed, middle-aged, man who is alert, in no distress. HEENT: Head atraumatic, normocephalic. Sclerae anicteric. The patient has some redness on his right eye with some drainage. Buccal mucosa pink. NECK: Supple, trachea midline. CHEST: Rise symmetrical. Breath sounds clear. HEART: S1, S2. ABDOMEN: Soft, bowel tones present. EXTREMITIES: Without cyanosis or edema. ASSESSMENT: 1. Lumbar diskitis with osteomyelitis and abscess, status post surgical intervention with wound culture preliminary negative, but Gram stain positive for gram-positive cocci in pairs. 2. Urinary tract infection. 3. Right conjunctivitis. 4. Diabetes. 5. Hypertension. PLAN: The patient remains stable postoperatively. Final cultures are pending. He is covered with appropriate antimicrobials. Will order PICC, pt will need to be on IV abx for 6 weeks. Follow ortho recommendations. DW staff Problems: Consultation Date/Type/Reason Admit Date/Time Jul 10, 2016 at 15:03 Type of Consultation: id Exam/Review of Systems Vital Signs Vitals Vital Signs Date Time Temp Pulse Resp B/P Pulse Ox O2 Delivery O2 Flow Rate FiO2 07/14/16 14:36 152/87 07/14/16 14:03 76 07/14/16 12:30 98.0 18 99 07/13/16 08:10 Nasal Cannula 2.0 Intake and Output 07/13/16 07/13/16 07/14/16 15:00 23:00 07:00 Intake Total 1900 ml 100 ml Output Total 50 ml 613 ml 354 ml Balance -50 ml 1287 ml -254 ml Results Result Diagram: 07/14/16 0559 07/14/16 0559 Results 24 hrs Laboratory Tests Test 07/13/16 17:18 07/13/16 19:48 07/14/16 02:22 07/14/16 05:59 Bedside Glucose 149 152 101 Anion Gap 16 Basophils # 0.0 Basophils % 0.5 Blood Morphology Comment Blood Urea Nitrogen 41 H Calcium Level 7.7 L Carbon Dioxide Level 21 Chloride Level 111 H Creatinine 2.61 H Eosinophils # 0.1 Eosinophils % 2.2 Glucose Level 41 #*L Hematocrit 21.5 L Hemoglobin 7.4 L Lymphocytes # 1.2 Lymphocytes % 28.6 Mean Corpuscular Hemoglobin 29.1 Mean Corpuscular Hemoglobin Concent 34.3 Mean Corpuscular Volume 84.6 Mean Platelet Volume 7.0 L Monocytes # 0.5 Monocytes % 12.2 H Neutrophils # 2.4 Neutrophils % 56.5 Nucleated Red Blood Cells # 0.0 Nucleated Red Blood Cells % 0.0 Platelet Count 126 L Potassium Level 4.5 Red Blood Count 2.54 L Red Cell Distribution Width 17.8 H Sodium Level 143 White Blood Count 4.3 L Test 07/14/16 07:16 07/14/16 07:40 07/14/16 08:53 07/14/16 12:40 Bedside Glucose 44 *L 49 *L 82 112 Medications Medications Current Medications Ondansetron HCl (Zofran Inj) 4 mg Q6H PRN IV NAUSEA AND/OR VOMITING Last administered on 07/12/16 23:41; Admin Dose 4 MG; Start 07/10/16 at 17:30 Pantoprazole (Protonix Iv) 40 mg DAILY@06 IV Last administered on 07/14/16 06: 00; Admin Dose 40 MG; Start 07/11/16 at 06:00 Lorazepam (Ativan) 0.5 mg Q6H PRN IV ANXIETY; Start 07/10/16 at 17:30 Hydralazine HCl (Apresoline) 10 mg Q6H PRN IV ELEVATED BLOOD PRESSURE Last administered on 07/14/16 14:03; Admin Dose 10 MG; Start 07/10/16 at 17:30 Clonidine (Catapres) 0.1 mg Q6H PRN PO ELEVATED BLOOD PRESSURE Last administered on 07/14/16 13:07; Admin Dose 0.1 MG; Start 07/10/16 at 17:30 Nitroglycerin (Nitroglycerin (Sl Tab) 0.4 Mg) 1 tab Q5M PRN SL ANGINA; Start at 17:30 Amlodipine Besylate (Norvasc) 10 mg DAILY PO Last administered on 07/14/16 08: 17; Admin Dose 10 MG; Start 07/11/16 at 09:00 Carvedilol (Coreg) 6.25 mg BID PO Last administered on 07/14/16 08:15; Admin Dose 6.25 MG; Start 07/10/16 at 21:00 Lactobacillus Acidoph/Bulgaricus (Floranex) 1 tab TID PO Last administered on 12:41; Admin Dose 1 TAB; Start 07/10/16 at 21:00 Miscellaneous Information 1 ea NOTE XX ; Start 07/10/16 at 17:30 Glucose (Glutose) 15 gm Q15M PRN PO DECREASED GLUCOSE; Start 07/10/16 at 17:30 Glucose (Glutose) 22.5 gm Q15M PRN PO DECREASED GLUCOSE; Start 07/10/16 at 17: 30 Dextrose (D50w Syringe) 25 ml Q15M PRN IV DECREASED GLUCOSE Last administered on 07/12/16 07:54; Admin Dose 25 ML; Start 07/10/16 at 17:30 Dextrose (D50w Syringe) 50 ml Q15M PRN IV DECREASED GLUCOSE Last administered on 07/11/16 05:05; Admin Dose 50 ML; Start 07/10/16 at 17:30 Glucagon (Glucagen) 1 mg Q15M PRN IM DECREASED GLUCOSE; Start 07/10/16 at 17:30 Glucose 15 gm 15 gm Q15M PRN BUCCAL DECREASED GLUCOSE; Start 07/10/16 at 17:30 Cefepime HCl (Maxipime 2gm/50 ml (Pmx)) 50 ml @ 100 mls/hr Q24H IVPB Last administered on 07/13/16 20:12; Admin Dose 100 MLS/HR; Start 07/10/16 at 21:00 Finasteride (Proscar) 5 mg DAILY PO Last administered on 07/14/16 08:17; Admin Dose 5 MG; Start 07/13/16 at 09:00 Acetaminophen/ Hydrocodone Bitart ([place] (10/325)) 2 tab Q4H PRN PO PAIN LEVEL 6-10 Last administered on 07/12/16 22:20; Admin Dose 2 TAB; Start 07/12/16 at 17:00 Hydromorphone HCl (Dilaudid) 0.2 mg Q1H PRN IV BREAKTHROUGH PAIN Last administered on 07/14/16 12:42; Admin Dose 0.2 MG; Start 07/12/16 at 17:00 Naloxone HCl (Narcan) 0.2 mg Q2M PRN IV RR 8 BREATHS/MIN OR LESS; Start at 17:00 Fluconazole 100 mg 100 mg DAILY PO Last administered on 07/14/16 08:16; Admin Dose 100 MG; Start 07/13/16 at 09:00 Vancomycin HCl (Vancocin) 100 ml @ 100 mls/hr Q36H IVPB Last administered on 02:33; Admin Dose 100 MLS/HR; Start 07/14/16 at 03:00 Ciprofloxacin HCl (Ciloxan 0.3% Oph) 1 drop TID RIGHT EYE Last administered on 07/14/16 12:42; Admin Dose 1 DROP; Start 07/13/16 at 21:00 Sodium Bicarbonate (Sodium Bicarbonate Tab) 650 mg TID PO Last administered on 07/14/16 12:41; Admin Dose 650 MG; Start 07/14/16 at 10:00 Epoetin Mauricio (Epogen (Esrd)) 10,000 units MoWeFr@17 SC ; Start 07/14/16 at 17:00 Docusate Sodium (Colace) 100 mg Q12H PO ; Start 07/14/16 at 17:30 Ferrous Sulfate (Ferrous Sulfate (Ec)) 325 mg BID PO ; Start 07/14/16 at 21:00 Hydralazine HCl (Apresoline) 25 mg TID PO Last administered on 07/14/16 13:34 ; Admin Dose 25 MG; Start 07/14/16 at 13:00 DORENE GARCIA NP Jul 14, 2016 14:51
[2016-07-14] MEDS: EPOETIN 10000 UNITS/1 ML INJ (ESRD) SC SCH (17:20)
[2016-07-14] MEDS: DOCUSATE SODIUM 100 MG CAP PO SCH (17:31)
[2016-07-14] MEDS: CEFEPIME 2GM/50 ML (PMX) 50 ML IVPB SCH (21:28)
[2016-07-15] VITALS (11 sets, daily range): BP systolic 127–171; BP diastolic 68–91; PULSE 67–80; RESP 18–20
[2016-07-15] MEDS: hydrALAzine 20 MG INJ IV PRN ×2 (00:15→14:20)
[2016-07-15] MEDS: HYDROmorphONE 1 MG/ML SYG IV PRN ×6 (01:59→22:08)
[2016-07-15] MEDS: DOCUSATE SODIUM 100 MG CAP PO SCH ×2 (06:06→13:58)
[2016-07-15] MEDS: PANTOPRAZOLE (EC) 40 MG TAB PO SCH (06:06)
[2016-07-15 07:20] LABS: BASOPHILS % 0.4 % (0.0-2.0); EOSINOPHILS # 0.1 10^3/ul (0.0-0.5); HEMATOCRIT 26.8 % (42.0-52.0); HEMOGLOBIN 9.2 g/dl (14.0-18.0); LYMPHOCYTES # 1.1 10^3/ul (0.8-2.9); LYMPHOCYTES % 21.9 % (15.0-51.0); MEAN CORPUSCULAR HEMOGLOBIN 28.8 pg (29.0-33.0); MEAN CORPUSCULAR HGB CONC 34.3 g/dl (32.0-37.0); MEAN CORPUSCULAR VOLUME 83.9 fl (82.0-101.0); MEAN PLATELET VOLUME 7.3 fl (7.4-10.4); MONOCYTE # 0.5 10^3/ul (0.3-0.9); NEUTROPHIL # 3.2 10^3/ul (1.6-7.5); NEUTROPHILS % 64.7 % (39.0-77.0); PLATELET COUNT 143 10^3/UL (140-440); RED BLOOD COUNT 3.19 10^6/ul (4.70-6.10); RED CELL DISTRIBUTION WIDTH 17.2 % (11.5-14.5); UNCORRECTED WBC 4.9 10^3/ul (4.8-10.8); WHITE BLOOD COUNT 4.9 10^3/ul (4.8-10.8)
[2016-07-15] MEDS: INSULIN ASPART [NOVOLOG] 3 ML PEN SC SCH ×4 (07:25→20:49)
[2016-07-15 07:30] LABS: POTASSIUM 4.5 mmol/L (3.5-5.1)
[2016-07-15 07:32] LABS: CREATININE 2.57 mg/dl (0.61-1.24)
[2016-07-15 07:33] LABS: CALCIUM 7.9 mg/dl (8.4-10.2)
[2016-07-15 07:37] LABS: CONDITION 1; LH ANALYZER COMMENTS 1
--- NOTE | 2016-07-15 08:54 | CONS ---
Date/Time of Note Date/Time of Note DATE: 07/15/16 TIME: 08:44 Assessment/Plan Assessment/Plan Chief Complaint/Hosp Course 1. He is now 3 days post op a lumbar laminectomy at the L2 L3 level with a drainage of an abscess . He is feeling better today . 2. CKD , his renal function is about the same . 3. anemia , will start Epogen and he received a 2 unit blood transfusion yesterday . 4. labs ordered for tomorrow . 5. he has edema , will restart Bumex . Problems: Consultation Date/Type/Reason Admit Date/Time Jul 10, 2016 at 15:03 Type of Consultation: renal 24 HR Interval Summary Free Text/Dictation he is sitting up eating breakfast . Constitutional: improved, no complaints Exam/Review of Systems Vital Signs Vitals Vital Signs Date Time Temp Pulse Resp B/P Pulse Ox O2 Delivery O2 Flow Rate FiO2 07/15/16 08:42 70 07/15/16 07:14 98.3 18 143/75 95 07/13/16 08:10 Nasal Cannula 2.0 Intake and Output 07/14/16 07/14/16 07/15/16 15:00 23:00 07:00 Intake Total 1260 ml Output Total 35 ml 1818 ml 250 ml Balance -35 ml -558 ml -250 ml Exam Constitutional: alert Psych: no complaints Respiratory: clear to auscultation Cardiovascular: regular rate and rhythm Gastrointestinal: soft Extremities: edema Results Result Diagram: 07/15/16 0655 07/15/16 0655 Results 24 hrs Laboratory Tests Test 07/14/16 08:53 07/14/16 12:40 07/14/16 17:30 07/14/16 20:55 Bedside Glucose 82 112 89 116 Test 07/15/16 06:55 07/15/16 07:49 Anion Gap 14 Basophils # 0.0 Basophils % 0.4 Blood Morphology Comment Blood Urea Nitrogen 42 H Calcium Level 7.9 L Carbon Dioxide Level 24 Chloride Level 106 Creatinine 2.57 H Eosinophils # 0.1 Eosinophils % 2.0 Glucose Level 90 # Hematocrit 26.8 #L Hemoglobin 9.2 #L Lymphocytes # 1.1 Lymphocytes % 21.9 Mean Corpuscular Hemoglobin 28.8 L Mean Corpuscular Hemoglobin Concent 34.3 Mean Corpuscular Volume 83.9 Mean Platelet Volume 7.3 L Monocytes # 0.5 Monocytes % 11.0 Neutrophils # 3.2 Neutrophils % 64.7 Nucleated Red Blood Cells # 0.0 Nucleated Red Blood Cells % 0.0 Platelet Count 143 Potassium Level 4.5 Red Blood Count 3.19 #L Red Cell Distribution Width 17.2 H Sodium Level 139 White Blood Count 4.9 Bedside Glucose 86 Medications Medications Current Medications Ondansetron HCl (Zofran Inj) 4 mg Q6H PRN IV NAUSEA AND/OR VOMITING Last administered on 07/12/16 23:41; Admin Dose 4 MG; Start 07/10/16 at 17:30 Lorazepam (Ativan) 0.5 mg Q6H PRN IV ANXIETY; Start 07/10/16 at 17:30 Hydralazine HCl (Apresoline) 10 mg Q6H PRN IV ELEVATED BLOOD PRESSURE Last administered on 07/15/16 00:15; Admin Dose 10 MG; Start 07/10/16 at 17:30 Clonidine (Catapres) 0.1 mg Q6H PRN PO ELEVATED BLOOD PRESSURE Last administered on 07/14/16 13:07; Admin Dose 0.1 MG; Start 07/10/16 at 17:30 Nitroglycerin (Nitroglycerin (Sl Tab) 0.4 Mg) 1 tab Q5M PRN SL ANGINA; Start at 17:30 Amlodipine Besylate (Norvasc) 10 mg DAILY PO Last administered on 07/14/16 08: 17; Admin Dose 10 MG; Start 07/11/16 at 09:00 Carvedilol (Coreg) 6.25 mg BID PO Last administered on 07/14/16 21:17; Admin Dose 6.25 MG; Start 07/10/16 at 21:00 Lactobacillus Acidoph/Bulgaricus (Floranex) 1 tab TID PO Last administered on 21:15; Admin Dose 1 TAB; Start 07/10/16 at 21:00 Miscellaneous Information 1 ea NOTE XX ; Start 07/10/16 at 17:30 Glucose (Glutose) 15 gm Q15M PRN PO DECREASED GLUCOSE; Start 07/10/16 at 17:30 Glucose (Glutose) 22.5 gm Q15M PRN PO DECREASED GLUCOSE; Start 07/10/16 at 17: 30 Dextrose (D50w Syringe) 25 ml Q15M PRN IV DECREASED GLUCOSE Last administered on 07/12/16 07:54; Admin Dose 25 ML; Start 07/10/16 at 17:30 Dextrose (D50w Syringe) 50 ml Q15M PRN IV DECREASED GLUCOSE Last administered on 07/11/16 05:05; Admin Dose 50 ML; Start 07/10/16 at 17:30 Glucagon (Glucagen) 1 mg Q15M PRN IM DECREASED GLUCOSE; Start 07/10/16 at 17:30 Glucose 15 gm 15 gm Q15M PRN BUCCAL DECREASED GLUCOSE; Start 07/10/16 at 17:30 Cefepime HCl (Maxipime 2gm/50 ml (Pmx)) 50 ml @ 100 mls/hr Q24H IVPB Last administered on 07/14/16 21:28; Admin Dose 100 MLS/HR; Start 07/10/16 at 21:00 Finasteride (Proscar) 5 mg DAILY PO Last administered on 07/14/16 08:17; Admin Dose 5 MG; Start 07/13/16 at 09:00 Acetaminophen/ Hydrocodone Bitart ([place] (10/325)) 2 tab Q4H PRN PO PAIN LEVEL 6-10 Last administered on 07/12/16 22:20; Admin Dose 2 TAB; Start 07/12/16 at 17:00 Naloxone HCl (Narcan) 0.2 mg Q2M PRN IV RR 8 BREATHS/MIN OR LESS; Start at 17:00 Fluconazole 100 mg 100 mg DAILY PO Last administered on 07/14/16 08:16; Admin Dose 100 MG; Start 07/13/16 at 09:00 Vancomycin HCl (Vancocin) 100 ml @ 100 mls/hr Q36H IVPB Last administered on 02:33; Admin Dose 100 MLS/HR; Start 07/14/16 at 03:00 Ciprofloxacin HCl (Ciloxan 0.3% Oph) 1 drop TID RIGHT EYE Last administered on 07/14/16 21:27; Admin Dose 1 DROP; Start 07/13/16 at 21:00 Sodium Bicarbonate (Sodium Bicarbonate Tab) 650 mg TID PO Last administered on 07/14/16 21:16; Admin Dose 650 MG; Start 07/14/16 at 10:00 Epoetin Mauricio (Epogen (Esrd)) 10,000 units MoWeFr@17 SC Last administered on 17:20; Admin Dose 10,000 UNITS; Start 07/14/16 at 17:00 Docusate Sodium (Colace) 100 mg Q12H PO Last administered on 07/15/16 06:06; Admin Dose 100 MG; Start 07/14/16 at 17:30 Ferrous Sulfate (Ferrous Sulfate (Ec)) 325 mg BID PO Last administered on 21:16; Admin Dose 325 MG; Start 07/14/16 at 21:00 Hydralazine HCl (Apresoline) 25 mg TID PO Last administered on 07/14/16 21:16 ; Admin Dose 25 MG; Start 07/14/16 at 13:00 Hydromorphone HCl (Dilaudid) 0.5 mg Q4 PRN IV BREAKTHROUGH PAIN Last administered on 07/15/16 06:06; Admin Dose 0.5 MG; Start 07/14/16 at 17:00 Pantoprazole (Protonix Tab) 40 mg DAILY@06 PO Last administered on 07/15/16 06 :06; Admin Dose 40 MG; Start 07/15/16 at 06:00 JACOB WHEELER MD Jul 15, 2016 08:54
--- NOTE | 2016-07-15 09:40 | CONS ---
DATE OF ADMISSION: 07/10/2016 DATE OF CONSULTATION: 07/14/2016 The patient is postop day 2 status post L2-L3 laminectomy, medial facetectomy and foraminotomy for e vacuation of a subacute abscess. The patient postoperatively seems to be doing well. He has alread y ambulated with the help of physical therapy. He is voiding spontaneously. 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 The patient's lumbar incision post-surgica l pain is being better treated with pain medication. The patient is being followed up further by in fectious disease that is adjusting the patient's IV antibiotics according to the notes, the patient will be receiving a PICC line for long-term IV antibiotics upon discharge. From a neurosurgery persp ective the patient can be discharged. His lumbar incision looks clean, dry and intact. The patient is to have his lumbar incision kelly removed by a home health nurse in 2 weeks. He may shower. H e is to keep the wound clean, dry and intact. He is to apply triple antibiotic ointment, Neosporin ointment twice a day along the incision line. The patient's Hemovac drain that put out around 50 mL overnight has subsequently been removed. The patient is moving his upper and lower extremities wel l and his preoperative numbness has already decreased. He will follow up with my clinic. Dictated By: JONAS MCKEON MD, SA/ERICKA Conf#: [id number] DID#: [id number]
[2016-07-15] MEDS: FERROUS SULFATE (EC) 325 MG TAB PO SCH ×2 (10:04→20:46)
[2016-07-15] MEDS: NA BICARBONATE 650 MG TAB PO SCH ×3 (10:05→20:46)
[2016-07-15] MEDS: LACTOBACILLUS CHEW TAB PO SCH ×3 (10:05→20:46)
[2016-07-15] MEDS: FLUCONAZOLE 100 MG TAB PO SCH (10:05)
[2016-07-15] MEDS: AMLODIPINE 10 MG TAB PO SCH (10:06)
[2016-07-15] MEDS: FINASTERIDE 5 MG TAB PO SCH (10:06)
[2016-07-15] MEDS: CIPROFLOXACIN 0.3% 2.5 ML OPH RIGHT EYE SCH ×3 (10:07→20:45)
--- NOTE | 2016-07-15 10:48 | OPR ---
DATE OF OPERATION: 07/12/2016 PREOPERATIVE DIAGNOSES 1. L2 to L3 diskitis, osteomyelitis. 2. Possible L2 to L3 acute epidural abscess. 3. Probable L2 to L3 lumbar stenosis secondary to abscess and inflammation. POSTOPERATIVE DIAGNOSES: 1. L2 to L3 diskitis, osteomyelitis. 2. L2 to L3 subacute epidural abscess and inflammatory phlegmon. 3. L2 to L3 stenosis secondary to subacute infection and chronic inflammation. PROCEDURE PERFORMED: 1. Decompressive L2 to L3 laminectomy. 2. Decompressive L2 to L3 medial facetectomy and foraminotomy. 3. Evacuation of L2 to L3 epidural subacute abscess. 4. Biopsy of L2 to L3 disk space. SURGEON: Renny Mckeon MD INDICATION FOR PROCEDURE: Please look at the inpatient consultation note during the same hospitalization for a full set of indications. DESCRIPTION OF OPERATIVE PROCEDURE: The patient was brought to the operating room. After general anesthesia was obtained, he was placed prone on top of the operating room table on top of the Sawyer frame. His arms were abducted less than 90 degrees and placed in Superman position. All pressure points were noted and padded appropriately. The Sawyer frame was slightly raised. The patient was put in a slightly reverse Trendelenburg position. The patient's blood pressure was kept in a normotensive range to prevent hypoperfusion. Also , since the patient had chronic anemia and despite having received 2 units of packed red blood cells the day before bringing his hemoglobin from 7 to 9, the patient was still anemic and given his many comorbidities, the patient was started to receive 2 more packed red blood cell transfusions during the operation. The midline lumbar spine was then marked from approximately L2 to the top of L4. After the skin was prepped and draped under standard sterile fashion, local anesthetics were infiltrated into the marked incision. The skin was then incised down to the level of the fascia. Subperiosteal dissection was carried down to the spinous processes and lamina all the way to the facets from L2 to the bottom of L3. The L2 to L3 level was confirmed under direct lateral fluoroscopy. The operating microscope was brought into the field. The self-retaining retractors were placed. We then performed L2 to L3 full laminectomy, L2 to L3 bilateral medial facetectomy and foraminotomy. The ligamentum flavum was removed. The thecal sac that appeared to be under significant pressure, both centrally and over the lateral recess area from the top of L2 to the top of L4, was completely decompressed. We were then able to gently retract the thecal sac medially on the left then the right side. No acute purulent material was seen, but significant inflammatory tissue was seen in the ventral epidural space that appeared to be putting pressure on the thecal sac. Some of this tissue was then removed and sent off the table for permanent pathology. The posterior longitudinal ligament and the L2 to L3 annulus was then cut. Several pieces of disk material were then sent off the table for pathology specimen. Two microbiology swabs were also taken for aerobic and anaerobic cultures as well as fungus, AFB, TB cultures. There was no acute abscess noted, but inflammatory tissue and changes consistent with a subacute abscess were seen in the ventral epidural space and the disk space at L2 to L3 further confirming subacute L2 to L3 discitis. There was also significant destruction of the L2 to L3 endplates. The wound was copiously irrigated with antibiotic solution. At this point, the patient was then given antibiotics as the antibiotics previous to making incision were held in order to help increase the yield of getting microbial growth if there was any present for the culturing. The wound was copiously irrigated with antibiotic solution. Complete hemostasis was obtained. A medium Hemovac drain was then placed in the dorsal epidural space and then was brought out in the skin away from the incision site. The muscle and fascial layers were reapproximated with interrupted sutures. The dermal layer was reapproximated with interrupted sutures and the skin was reapproximated with kelly. The Hemovac drain was then secured at the exit site with a suture and connected to a Hemovac bag and activated. A thin film of Triple Antibiotic ointment was placed on top of the staple line. The sterile dressing was placed on top of the incision site. The patient was then woken up, extubated and transferred to the recovery room in stable condition. The patient was moving his upper and lower extremities equally as before. ESTIMATED BLOOD LOSS: 250 mL. BLOOD PRODUCTS ADMINISTERED: Packed RBC x2. CONDITION: Stable. PROGNOSIS: Good. WOUND CLASSIFICATION: Clean. PACKS/DRAINS: Medium Hemovac drain x1. SPECIMENS REMOVED: Ventral epidural space and L2 to L3 disk space for both gross pathology as well as microbiology. Dictated By: RENNY MCKEON MD, SA/ERICKA Conf#: [id number] DID#: [id number] [facility]
[2016-07-15] MEDS: BUMETANIDE 1 MG TAB PO SCH (11:24)
[2016-07-15] MEDS ORDERED: LIDOCAINE 1% (MDV) 20 ML INJ SC ONE (11:30)
--- NOTE | 2016-07-15 13:00 | PN ---
DATE: 07/15/2016 SUBJECTIVE: No events overnight. The patient is alert, looks comfortable. Denies pain, discomfort. LABORATORY DATA: WBC today 4.9, no shift, no bands. BUN 42, creatinine 2.57. MICROBIOLOGY: Urine culture grew Enterobacter aerogenes and Katharina glabrata on admission. Lumbar culture growing MRSA, susceptible to vancomycin, clindamycin, rifampin, Bactrim. Anaerobic cultures had been negative. ANTIMICROBIALS: The patient is on 1. IV vancomycin. 2. Cefepime. 3. Also on Diflucan. PHYSICAL EXAMINATION: GENERAL: Well-developed, middle-aged man who is alert, in no distress. HEENT: Head atraumatic, normocephalic. Sclerae anicteric. Buccal mucosa dry. NECK: Supple. CHEST: Rise symmetrical. Breath sounds diminished to bases. HEART: S1, S2. ABDOMEN: Soft, bowel sounds present. EXTREMITIES: Without cyanosis. ASSESSMENT: 1. Lumbar diskitis, osteomyelitis, and methicillin-resistant Staphylococcus aureus, psoas abscess, status post decompressive laminectomy with evacuation of abscess on 07/12/2016. 2. Chronic kidney disease. 3. Status post urinary tract infection. 4. Diabetes. 5. Hypertension. PLAN: We are going to discontinue cefepime, keep him on IV vancomycin, add rifampin. Await for PICC line placement. The patient to be discharged home on IV vancomycin or daptomycin if renal function deteriorates, for 6 weeks. Follow with neurosurgery prior to discontinuation of therapy. He may need a repeat MRI as well. Follow nephrology recommendations. Dictated By: DORENE GARCIA CUTTER [employer] for PARDEEP MATTA/ERICKA Conf#: [id number] DID#: [id number] CASSANDRA
--- NOTE | 2016-07-15 13:30 | PN ---
Date/Time of Note Date/Time of Note DATE: 07/15/16 TIME: 13:28 Assessment/Plan VTE Prophylaxis VTE Prophylaxis Intervention: SCD's Lines/Catheters IV Catheter Type (from [facility]): Peripheral IV Urinary Cath still in place: No Assessment/Plan Assessment/Plan 56-year-old male transferred from outside hospital managed as follows 1. Sepsis 2/2 Spinal abscess / UTI 2. Lumbar epidural abscess : MRSA * s/p evacuation 3. Chronic kidney disease r/o ARF 2/2 diuretic therapy Patient's baseline Cr seems to be about 2 4. ? Diabetes type 2 - A1c = 6.4 5. Hypertension: [id number]. Anemia 2/2 CKD Has received 4 units so far 7. 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 Deep venous thrombosis prophylaxis; SCDs. Subjective 24 Hr Interval Summary Free Text/Dictation Patient seen and examined. still c/o of mild discomfort at op site controlled with pain meds Exam/Review of Systems Vital Signs Vitals Vital Signs Date Time Temp Pulse Resp B/P Pulse Ox O2 Delivery O2 Flow Rate FiO2 07/15/16 12:16 67 07/15/16 11:39 98.2 18 162/91 94 07/13/16 08:10 Nasal Cannula 2.0 Intake and Output 07/14/16 07/14/16 07/15/16 15:00 23:00 07:00 Intake Total 1260 ml Output Total 35 ml 1818 ml 250 ml Balance -35 ml -558 ml -250 ml Exam Constitutional: alert, oriented Head: normocephalic Neck: supple Respiratory: clear to auscultation Cardiovascular: regular rate and rhythm Gastrointestinal: soft Results Result Diagram: 07/15/16 0655 07/15/16 0655 Results 24 hrs Laboratory Tests Test 07/14/16 17:30 07/14/16 20:55 07/15/16 06:55 07/15/16 07:49 Bedside Glucose 89 116 86 Anion Gap 14 Basophils # 0.0 Basophils % 0.4 Blood Morphology Comment Blood Urea Nitrogen 42 H Calcium Level 7.9 L Carbon Dioxide Level 24 Chloride Level 106 Creatinine 2.57 H Eosinophils # 0.1 Eosinophils % 2.0 Glucose Level 90 # Hematocrit 26.8 #L Hemoglobin 9.2 #L Lymphocytes # 1.1 Lymphocytes % 21.9 Mean Corpuscular Hemoglobin 28.8 L Mean Corpuscular Hemoglobin Concent 34.3 Mean Corpuscular Volume 83.9 Mean Platelet Volume 7.3 L Monocytes # 0.5 Monocytes % 11.0 Neutrophils # 3.2 Neutrophils % 64.7 Nucleated Red Blood Cells # 0.0 Nucleated Red Blood Cells % 0.0 Platelet Count 143 Potassium Level 4.5 Red Blood Count 3.19 #L Red Cell Distribution Width 17.2 H Sodium Level 139 White Blood Count 4.9 Test 07/15/16 09:55 07/15/16 11:54 Lab Scanned Report REFERENCE LAB Bedside Glucose 113 Medications Medications Current Medications Ondansetron HCl (Zofran Inj) 4 mg Q6H PRN IV NAUSEA AND/OR VOMITING Last administered on 07/12/16 23:41; Admin Dose 4 MG; Start 07/10/16 at 17:30 Lorazepam (Ativan) 0.5 mg Q6H PRN IV ANXIETY; Start 07/10/16 at 17:30 Hydralazine HCl (Apresoline) 10 mg Q6H PRN IV ELEVATED BLOOD PRESSURE Last administered on 07/15/16 00:15; Admin Dose 10 MG; Start 07/10/16 at 17:30 Clonidine (Catapres) 0.1 mg Q6H PRN PO ELEVATED BLOOD PRESSURE Last administered on 07/14/16 13:07; Admin Dose 0.1 MG; Start 07/10/16 at 17:30 Nitroglycerin (Nitroglycerin (Sl Tab) 0.4 Mg) 1 tab Q5M PRN SL ANGINA; Start at 17:30 Amlodipine Besylate (Norvasc) 10 mg DAILY PO Last administered on 07/15/16 10: 06; Admin Dose 10 MG; Start 07/11/16 at 09:00 Carvedilol (Coreg) 6.25 mg BID PO Last administered on 07/15/16 10:06; Admin Dose 6.25 MG; Start 07/10/16 at 21:00 Lactobacillus Acidoph/Bulgaricus (Floranex) 1 tab TID PO Last administered on 10:05; Admin Dose 1 TAB; Start 07/10/16 at 21:00 Miscellaneous Information 1 ea NOTE XX ; Start 07/10/16 at 17:30 Glucose (Glutose) 15 gm Q15M PRN PO DECREASED GLUCOSE; Start 07/10/16 at 17:30 Glucose (Glutose) 22.5 gm Q15M PRN PO DECREASED GLUCOSE; Start 07/10/16 at 17: 30 Dextrose (D50w Syringe) 25 ml Q15M PRN IV DECREASED GLUCOSE Last administered on 07/12/16 07:54; Admin Dose 25 ML; Start 07/10/16 at 17:30 Dextrose (D50w Syringe) 50 ml Q15M PRN IV DECREASED GLUCOSE Last administered on 07/11/16 05:05; Admin Dose 50 ML; Start 07/10/16 at 17:30 Glucagon (Glucagen) 1 mg Q15M PRN IM DECREASED GLUCOSE; Start 07/10/16 at 17:30 Glucose (Glutose) 15 gm Q15M PRN BUCCAL DECREASED GLUCOSE; Start 07/10/16 at 17 :30 Finasteride (Proscar) 5 mg DAILY PO Last administered on 07/15/16 10:06; Admin Dose 5 MG; Start 07/13/16 at 09:00 Acetaminophen/ Hydrocodone Bitart ([place] (10/325)) 2 tab Q4H PRN PO PAIN LEVEL 6-10 Last administered on 07/12/16 22:20; Admin Dose 2 TAB; Start 07/12/16 at 17:00 Naloxone HCl (Narcan) 0.2 mg Q2M PRN IV RR 8 BREATHS/MIN OR LESS; Start at 17:00 Fluconazole 100 mg 100 mg DAILY PO Last administered on 07/15/16 10:05; Admin Dose 100 MG; Start 07/13/16 at 09:00 Vancomycin HCl (Vancocin) 100 ml @ 100 mls/hr Q36H IVPB Last administered on 02:33; Admin Dose 100 MLS/HR; Start 07/14/16 at 03:00 Ciprofloxacin HCl (Ciloxan 0.3% Oph) 1 drop TID RIGHT EYE Last administered on 07/15/16 10:07; Admin Dose 1 DROP; Start 07/13/16 at 21:00 Sodium Bicarbonate (Sodium Bicarbonate Tab) 650 mg TID PO Last administered on 07/15/16 10:05; Admin Dose 650 MG; Start 07/14/16 at 10:00 Epoetin Mauricio (Epogen (Esrd)) 10,000 units MoWeFr@17 SC Last administered on 17:20; Admin Dose 10,000 UNITS; Start 07/14/16 at 17:00 Docusate Sodium (Colace) 100 mg Q12H PO Last administered on 07/15/16 06:06; Admin Dose 100 MG; Start 07/14/16 at 17:30 Ferrous Sulfate (Ferrous Sulfate (Ec)) 325 mg BID PO Last administered on 10:04; Admin Dose 325 MG; Start 07/14/16 at 21:00 Hydralazine HCl (Apresoline) 25 mg TID PO Last administered on 07/15/16 10:05 ; Admin Dose 25 MG; Start 07/14/16 at 13:00 Hydromorphone HCl (Dilaudid) 0.5 mg Q4 PRN IV BREAKTHROUGH PAIN Last administered on 07/15/16 10:16; Admin Dose 0.5 MG; Start 07/14/16 at 17:00 Pantoprazole (Protonix Tab) 40 mg DAILY@06 PO Last administered on 07/15/16 06 :06; Admin Dose 40 MG; Start 07/15/16 at 06:00 Bumetanide (Bumex) 2 mg DAILY PO Last administered on 07/15/16 11:24; Admin Dose 2 MG; Start 07/15/16 at 10:00 Simethicone (Mylicon) 80 mg Q6H PRN GTB DISTENSION/GAS/BLOATING Last administered on 07/15/16 11:24; Admin Dose 80 MG; Start 07/15/16 at 10:30 Docusate Sodium (Colace) 250 mg DAILY PO ; Start 07/15/16 at 11:30 Polyethylene Glycol (Miralax) 17 gm DAILY PO ; Start 07/15/16 at 11:30 Tamsulosin HCl (Flomax) 0.4 mg HS PO ; Start 07/15/16 at 21:00 Rifampin (Rifampin) 600 mg DAILY PO ; Start 07/15/16 at 14:00 RAMON PUENTES Jul 15, 2016 13:30
--- NOTE | 2016-07-15 13:31 | PDOCDIS ---
Discharge Instructions HOME CARE INSTRUCTIONS: Special Diet: 1800 ADA OTHER ORDERS: Other Orders: The patient is to have his lumbar incision kelly removed by a home health nurse in 2 weeks. He may shower. He is to keep the wound clean, dry and intact. He is to apply triple antibiotic ointment, Neosporin ointment twice a day along the incision line. RAMON PUENTES. Jul 15, 2016 13:31
[2016-07-15] MEDS: POLYETHYLENE GLYCOL 17 GM PACKET PO SCH (13:58)
[2016-07-15] MEDS: DOCUSATE SODIUM 250 MG CAP PO SCH (14:02)
[2016-07-15] MEDS ORDERED: SOD CHLORIDE 0.9% 100 ML ONE (18:03)
[2016-07-15] MEDS: VANCOMYCIN 500MG/NS (PMX) 100 ML IVPB SCH (18:05)
[2016-07-15] MEDS: RIFAMPIN 300 MG CAP PO SCH (18:09)
--- NOTE | 2016-07-15 18:54 | RADRPT ---
PROCEDURE: XR Chest. CLINICAL INDICATION: Check PICC line position. TECHNIQUE: Single frontal view. COMPARISON: 07/11/2016. FINDINGS: There is a left arm PICC line with the tip in the left internal jugular vein. There is mild atelect asis in the right perihilar region. The lungs are otherwise clear. The heart is mildly enlarged. There is calcification in the aorta consistent with atherosclerosis. There is no pleural effusion. There is no pneumothorax. IMPRESSION: 1. Left arm PICC line tip in the left internal jugular vein. The PICC line nurse was informed imme diately following the study. 2. Mild atelectasis in the right perihilar region. 3. Cardiomegaly and atherosclerosis. RPTAT: QQ .Umang Dale MD, Date Time Electronically viewed and signed by .Umang Dale MD, on 07/15/2016 18:54 .R/
--- NOTE | 2016-07-15 18:55 | RADRPT ---
PROCEDURE: XR Chest. CLINICAL INDICATION: Check PICC line position. TECHNIQUE: Single frontal view. COMPARISON: 07/15/2016. 1729 hours. FINDINGS: There is a left arm PICC line with the tip in the mid superior vena cava. Right perihilar atelectas is is unchanged. The heart is enlarged. There is calcification in the aorta consistent with atherosclerosis. There is no pleural effusion. There is no pneumothorax. IMPRESSION: 1. Satisfactory position of left arm PICC line. 2. No other change from the prior study done earlier the same day. RPTAT: QQ .Umang Dale MD, MD Date Time Electronically viewed and signed by .Umang Dale MD, on 07/15/2016 18:54 .R/
[2016-07-15] MEDS: TAMSULOSIN (SR) 0.4 MG CAP PO SCH (20:46)
[2016-07-16] MEDS: HYDROmorphONE 1 MG/ML SYG IV PRN ×6 (02:32→22:31)
[2016-07-16] MEDS: ONDANSETRON 4 MG INJ IV PRN (03:49)
[2016-07-16 04:29] VITALS: BP 156/84; RESP 18
[2016-07-16] MEDS: PANTOPRAZOLE (EC) 40 MG TAB PO SCH (06:10)
[2016-07-16 07:13] VITALS: BP 153/82; RESP 18
[2016-07-16] MEDS: INSULIN ASPART [NOVOLOG] 3 ML PEN SC SCH ×4 (08:02→21:00)
--- NOTE | 2016-07-16 08:29 | CONS ---
Date/Time of Note Date/Time of Note DATE: 07/16/16 TIME: 08:27 Assessment/Plan Assessment/Plan Chief Complaint/Hosp Course 1. He is now 4 days post op a lumbar laminectomy at the L2 L3 level with a drainage of an abscess . He is feeling better today . 2. CKD , his renal function is about the same . 3. anemia , will start Epogen and he received a 2 unit blood transfusion yesterday . 4. labs ordered for tomorrow . 5. he has edema , will restart Bumex . 6.labs are pending for today Problems: Consultation Date/Type/Reason Admit Date/Time Jul 10, 2016 at 15:03 Type of Consultation: renal 24 HR Interval Summary Free Text/Dictation He is awake and responsive . Constitutional: improved, no complaints Exam/Review of Systems Vital Signs Vitals Vital Signs Date Time Temp Pulse Resp B/P Pulse Ox O2 Delivery O2 Flow Rate FiO2 07/16/16 07:13 97.8 70 18 153/82 96 07/13/16 08:10 Nasal Cannula 2.0 Intake and Output 07/15/16 07/15/16 07/16/16 15:00 23:00 07:00 Intake Total 970 ml 120 ml Output Total 750 ml 200 ml Balance 220 ml -80 ml Exam Constitutional: alert, oriented Psych: no complaints Respiratory: clear to auscultation, normal air movement Cardiovascular: regular rate and rhythm Gastrointestinal: soft Extremities: edema Results Result Diagram: 07/15/16 0655 07/15/16 0655 Results 24 hrs Laboratory Tests Test 07/15/16 09:55 07/15/16 11:54 07/15/16 17:52 07/15/16 20:44 Lab Scanned Report REFERENCE LAB Bedside Glucose 113 152 178 Test 07/16/16 07:40 07/16/16 07:53 Lab Scanned Report REFERENCE LAB Bedside Glucose 156 Medications Medications Current Medications Ondansetron HCl (Zofran Inj) 4 mg Q6H PRN IV NAUSEA AND/OR VOMITING Last administered on 07/16/16t 03:49; Admin Dose 4 MG; Start 07/10/16 at 17:30 Lorazepam (Ativan) 0.5 mg Q6H PRN IV ANXIETY; Start 07/10/16 at 17:30 Hydralazine HCl (Apresoline) 10 mg Q6H PRN IV ELEVATED BLOOD PRESSURE Last administered on 07/15/16 14:20; Admin Dose 10 MG; Start 07/10/16 at 17:30 Clonidine (Catapres) 0.1 mg Q6H PRN PO ELEVATED BLOOD PRESSURE Last administered on 07/14/16 13:07; Admin Dose 0.1 MG; Start 07/10/16 at 17:30 Nitroglycerin (Nitroglycerin (Sl Tab) 0.4 Mg) 1 tab Q5M PRN SL ANGINA; Start at 17:30 Amlodipine Besylate (Norvasc) 10 mg DAILY PO Last administered on 07/15/16 10: 06; Admin Dose 10 MG; Start 07/11/16 at 09:00 Carvedilol (Coreg) 6.25 mg BID PO Last administered on 07/15/16 20:47; Admin Dose 6.25 MG; Start 07/10/16 at 21:00 Lactobacillus Acidoph/Bulgaricus (Floranex) 1 tab TID PO Last administered on 20:46; Admin Dose 1 TAB; Start 07/10/16 at 21:00 Miscellaneous Information 1 ea NOTE XX ; Start 07/10/16 at 17:30 Glucose (Glutose) 15 gm Q15M PRN PO DECREASED GLUCOSE; Start 07/10/16 at 17:30 Glucose (Glutose) 22.5 gm Q15M PRN PO DECREASED GLUCOSE; Start 07/10/16 at 17: 30 Dextrose (D50w Syringe) 25 ml Q15M PRN IV DECREASED GLUCOSE Last administered on 07/12/16 07:54; Admin Dose 25 ML; Start 07/10/16 at 17:30 Dextrose (D50w Syringe) 50 ml Q15M PRN IV DECREASED GLUCOSE Last administered on 07/11/16 05:05; Admin Dose 50 ML; Start 07/10/16 at 17:30 Glucagon (Glucagen) 1 mg Q15M PRN IM DECREASED GLUCOSE; Start 07/10/16 at 17:30 Glucose (Glutose) 15 gm Q15M PRN BUCCAL DECREASED GLUCOSE; Start 07/10/16 at 17 :30 Finasteride (Proscar) 5 mg DAILY PO Last administered on 07/15/16 10:06; Admin Dose 5 MG; Start 07/13/16 at 09:00 Acetaminophen/ Hydrocodone Bitart ([place] (10/325)) 2 tab Q4H PRN PO PAIN LEVEL 6-10 Last administered on 07/12/16 22:20; Admin Dose 2 TAB; Start 07/12/16 at 17:00 Naloxone HCl (Narcan) 0.2 mg Q2M PRN IV RR 8 BREATHS/MIN OR LESS; Start at 17:00 Fluconazole 100 mg 100 mg DAILY PO Last administered on 07/15/16 10:05; Admin Dose 100 MG; Start 07/13/16 at 09:00 Vancomycin HCl (Vancocin) 100 ml @ 100 mls/hr Q36H IVPB Last administered on 18:05; Admin Dose 100 MLS/HR; Start 07/14/16 at 03:00 Ciprofloxacin HCl (Ciloxan 0.3% Oph) 1 drop TID RIGHT EYE Last administered on 07/15/16 20:45; Admin Dose 1 DROP; Start 07/13/16 at 21:00 Sodium Bicarbonate (Sodium Bicarbonate Tab) 650 mg TID PO Last administered on 07/15/16 20:46; Admin Dose 650 MG; Start 07/14/16 at 10:00 Epoetin Mauricio (Epogen (Esrd)) 10,000 units MoWeFr@17 SC Last administered on 17:20; Admin Dose 10,000 UNITS; Start 07/14/16 at 17:00 Ferrous Sulfate (Ferrous Sulfate (Ec)) 325 mg BID PO Last administered on 20:46; Admin Dose 325 MG; Start 07/14/16 at 21:00 Hydromorphone HCl (Dilaudid) 0.5 mg Q4 PRN IV BREAKTHROUGH PAIN Last administered on 07/16/16 06:22; Admin Dose 0.5 MG; Start 07/14/16 at 17:00 Pantoprazole (Protonix Tab) 40 mg DAILY@06 PO Last administered on 07/16/16 06 :10; Admin Dose 40 MG; Start 07/15/16 at 06:00 Bumetanide (Bumex) 2 mg DAILY PO Last administered on 07/15/16 11:24; Admin Dose 2 MG; Start 07/15/16 at 10:00 Simethicone (Mylicon) 80 mg Q6H PRN GTB DISTENSION/GAS/BLOATING Last administered on 07/15/16 11:24; Admin Dose 80 MG; Start 07/15/16 at 10:30 Docusate Sodium (Colace) 250 mg DAILY PO Last administered on 07/15/16 14:02; Admin Dose 250 MG; Start 07/15/16 at 11:30 Polyethylene Glycol (Miralax) 17 gm DAILY PO Last administered on 07/15/16 13: 58; Admin Dose 17 GM; Start 07/15/16 at 11:30 Tamsulosin HCl (Flomax) 0.4 mg HS PO Last administered on 07/15/16 20:46; Admin Dose 0.4 MG; Start 07/15/16 at 21:00 Rifampin (Rifampin) 600 mg DAILY PO Last administered on 07/15/16 18:09; Admin Dose 600 MG; Start 07/15/16 at 14:00 Hydralazine HCl (Apresoline) 50 mg TID PO Last administered on 07/15/16 20:47 ; Admin Dose 50 MG; Start 07/15/16 at 21:00 JACOB WHEELER MD Jul 16, 2016 08:29
[2016-07-16 08:48] LABS: POTASSIUM 4.6 mmol/L (3.5-5.1)
[2016-07-16 08:50] LABS: CREATININE 2.46 mg/dl (0.61-1.24)
[2016-07-16 08:51] LABS: CALCIUM 7.7 mg/dl (8.4-10.2)
[2016-07-16] MEDS: POLYETHYLENE GLYCOL 17 GM PACKET PO SCH (09:00)
[2016-07-16 09:13] LABS: BASOPHILS % 0.4 % (0.0-2.0); EOSINOPHILS # 0.1 10^3/ul (0.0-0.5); EOSINOPHILS % 3.1 % (0.0-7.0); HEMATOCRIT 26.8 % (42.0-52.0); HEMOGLOBIN 9.2 g/dl (14.0-18.0); LYMPHOCYTES % 21.2 % (15.0-51.0); MEAN CORPUSCULAR HEMOGLOBIN 29.3 pg (29.0-33.0); MEAN CORPUSCULAR HGB CONC 34.5 g/dl (32.0-37.0); MEAN CORPUSCULAR VOLUME 85.1 fl (82.0-101.0); MEAN PLATELET VOLUME 7.6 fl (7.4-10.4); MONOCYTE # 0.5 10^3/ul (0.3-0.9); MONOCYTES % 11.4 % (0.0-11.0); NEUTROPHILS % 63.9 % (39.0-77.0); PLATELET COUNT 169 10^3/UL (140-440); RED BLOOD COUNT 3.15 10^6/ul (4.70-6.10); RED CELL DISTRIBUTION WIDTH 17.5 % (11.5-14.5); UNCORRECTED WBC 4.7 10^3/ul (4.8-10.8); WHITE BLOOD COUNT 4.7 10^3/ul (4.8-10.8)
[2016-07-16 09:15] LABS: CONDITION 1; LH ANALYZER COMMENTS 1
[2016-07-16] MEDS: AMLODIPINE 10 MG TAB PO SCH (09:36)
[2016-07-16] MEDS: DOCUSATE SODIUM 250 MG CAP PO SCH (09:36)
[2016-07-16] MEDS: LACTOBACILLUS CHEW TAB PO SCH ×3 (09:36→21:48)
[2016-07-16] MEDS: FERROUS SULFATE (EC) 325 MG TAB PO SCH ×2 (09:36→21:48)
[2016-07-16] MEDS: NA BICARBONATE 650 MG TAB PO SCH ×3 (09:36→21:49)
[2016-07-16] MEDS: FINASTERIDE 5 MG TAB PO SCH (09:37)
[2016-07-16] MEDS: RIFAMPIN 300 MG CAP PO SCH (09:37)
[2016-07-16] MEDS: BUMETANIDE 1 MG TAB PO SCH (09:37)
[2016-07-16] MEDS: FLUCONAZOLE 100 MG TAB PO SCH (10:24)
[2016-07-16] MEDS: CIPROFLOXACIN 0.3% 2.5 ML OPH RIGHT EYE SCH ×3 (10:26→21:50)
--- NOTE | 2016-07-16 10:45 | RADRPT ---
PROCEDURE: US guidance for PICC line CLINICAL INDICATION: PICC line placement TECHNIQUE: Multiple real-time images were acquired of the patient's arm utilizing a high resolutio n transducer. This was performed by the PICC line nurse for venous access. COMPARISON: None FINDINGS: Ultrasound guidance for PICC line placement. IMPRESSION: Ultrasound guidance for PICC line placement. RPTAT: AA .Dennis Ponce MD, MD Date Time Electronically viewed and signed by .Dennis Ponce MD, on 07/16/2016 10:45 .S/
[2016-07-16 11:21] VITALS: BP 139/73; RESP 18
--- NOTE | 2016-07-16 13:56 | CONS ---
Date/Time of Note Date/Time of Note DATE: 07/16/16 TIME: 13:53 Assessment/Plan Assessment/Plan Chief Complaint/Hosp Course SUBJECTIVE: No events overnight. The patient is alert, looks comfortable. Denies pain, discomfort. He is getting Cox placed 2 to retention MICROBIOLOGY: Urine culture grew Enterobacter aerogenes and Katharina glabrata on admission. Lumbar culture growing MRSA, susceptible to vancomycin, clindamycin, rifampin, Bactrim. Anaerobic cultures had been negative. ANTIMICROBIALS: Rifampin IV vancomycin. PHYSICAL EXAMINATION: GENERAL: Well-developed, middle-aged man who is alert, in no distress. HEENT: Head atraumatic, normocephalic. Sclerae anicteric. Buccal mucosa dry. NECK: Supple. CHEST: Rise symmetrical. Breath sounds diminished to bases. HEART: S1, S2. ABDOMEN: Soft, bowel sounds present. EXTREMITIES: Without cyanosis. ASSESSMENT: 1. Lumbar diskitis, osteomyelitis, and methicillin-resistant Staphylococcus aureus, psoas abscess, status post decompressive laminectomy with evacuation of abscess on 07/12/2016. 2. Chronic kidney disease. 3. Status post urinary tract infection. 4. Diabetes. 5. Hypertension. 6. Urinary retention==> s/p Ocx PLAN: Stable, s/p PICC, continue abx for 6 weeks, f/u with ortho, nephrology rec-s. He may need a repeat MRI prior dc of abx DW staff Problems: Consultation Date/Type/Reason Admit Date/Time Jul 10, 2016 at 15:03 Type of Consultation: ID Exam/Review of Systems Vital Signs Vitals Vital Signs Date Time Temp Pulse Resp B/P Pulse Ox O2 Delivery O2 Flow Rate FiO2 07/16/16 11:21 97.8 64 18 139/73 97 07/13/16 08:10 Nasal Cannula 2.0 Intake and Output 07/15/16 07/15/16 07/16/16 15:00 23:00 07:00 Intake Total 970 ml 120 ml Output Total 750 ml 200 ml Balance 220 ml -80 ml Results Result Diagram: 07/16/16 0720 07/16/16 0720 Results 24 hrs Laboratory Tests Test 07/15/16 17:52 07/15/16 20:44 07/16/16 07:20 07/16/16 07:40 Bedside Glucose 152 178 Anion Gap 15 Basophils # 0.0 Basophils % 0.4 Blood Morphology Comment Blood Urea Nitrogen 43 H Calcium Level 7.7 L Carbon Dioxide Level 23 Chloride Level 105 Creatinine 2.46 H Eosinophils # 0.1 Eosinophils % 3.1 Glucose Level 139 # Hematocrit 26.8 L Hemoglobin 9.2 L Lymphocytes # 1.0 Lymphocytes % 21.2 Mean Corpuscular Hemoglobin 29.3 Mean Corpuscular Hemoglobin Concent 34.5 Mean Corpuscular Volume 85.1 Mean Platelet Volume 7.6 Monocytes # 0.5 Monocytes % 11.4 H Neutrophils # 3.0 Neutrophils % 63.9 Nucleated Red Blood Cells # 0.0 Nucleated Red Blood Cells % 0.0 Platelet Count 169 Potassium Level 4.6 Red Blood Count 3.15 L Red Cell Distribution Width 17.5 H Sodium Level 138 White Blood Count 4.7 L Lab Scanned Report REFERENCE LAB Test 07/16/16 07:53 07/16/16 11:42 Bedside Glucose 156 153 Medications Medications Current Medications Ondansetron HCl (Zofran Inj) 4 mg Q6H PRN IV NAUSEA AND/OR VOMITING Last administered on 07/16/16 03:49; Admin Dose 4 MG; Start 07/10/16 at 17:30 Lorazepam (Ativan) 0.5 mg Q6H PRN IV ANXIETY; Start 07/10/16 at 17:30 Hydralazine HCl (Apresoline) 10 mg Q6H PRN IV ELEVATED BLOOD PRESSURE Last administered on 07/15/16 14:20; Admin Dose 10 MG; Start 07/10/16 at 17:30 Clonidine (Catapres) 0.1 mg Q6H PRN PO ELEVATED BLOOD PRESSURE Last administered on 07/14/16 13:07; Admin Dose 0.1 MG; Start 07/10/16 at 17:30 Nitroglycerin (Nitroglycerin (Sl Tab) 0.4 Mg) 1 tab Q5M PRN SL ANGINA; Start at 17:30 Amlodipine Besylate (Norvasc) 10 mg DAILY PO Last administered on 07/16/16 09: 36; Admin Dose 10 MG; Start 07/11/16 at 09:00 Carvedilol (Coreg) 6.25 mg BID PO Last administered on 07/16/16 09:37; Admin Dose 6.25 MG; Start 07/10/16 at 21:00 Lactobacillus Acidoph/Bulgaricus (Floranex) 1 tab TID PO Last administered on 09:36; Admin Dose 1 TAB; Start 07/10/16 at 21:00 Miscellaneous Information 1 ea NOTE XX ; Start 07/10/16 at 17:30 Glucose (Glutose) 15 gm Q15M PRN PO DECREASED GLUCOSE; Start 07/10/16 at 17:30 Glucose (Glutose) 22.5 gm Q15M PRN PO DECREASED GLUCOSE; Start 07/10/16 at 17: 30 Dextrose (D50w Syringe) 25 ml Q15M PRN IV DECREASED GLUCOSE Last administered on 07/12/16 07:54; Admin Dose 25 ML; Start 07/10/16 at 17:30 Dextrose (D50w Syringe) 50 ml Q15M PRN IV DECREASED GLUCOSE Last administered on 07/11/16 05:05; Admin Dose 50 ML; Start 07/10/16 at 17:30 Glucagon (Glucagen) 1 mg Q15M PRN IM DECREASED GLUCOSE; Start 07/10/16 at 17:30 Glucose (Glutose) 15 gm Q15M PRN BUCCAL DECREASED GLUCOSE; Start 07/10/16 at 17 :30 Finasteride (Proscar) 5 mg DAILY PO Last administered on 07/16/16 09:37; Admin Dose 5 MG; Start 07/13/16 at 09:00 Acetaminophen/ Hydrocodone Bitart ([place] (10/325)) 2 tab Q4H PRN PO PAIN LEVEL 6-10 Last administered on 07/12/16 22:20; Admin Dose 2 TAB; Start 07/12/16 at 17:00 Naloxone HCl (Narcan) 0.2 mg Q2M PRN IV RR 8 BREATHS/MIN OR LESS; Start at 17:00 Fluconazole 100 mg 100 mg DAILY PO Last administered on 07/16/16 10:24; Admin Dose 100 MG; Start 07/13/16 at 09:00 Vancomycin HCl (Vancocin) 100 ml @ 100 mls/hr Q36H IVPB Last administered on 18:05; Admin Dose 100 MLS/HR; Start 07/14/16 at 03:00 Ciprofloxacin HCl (Ciloxan 0.3% Oph) 1 drop TID RIGHT EYE Last administered on 07/16/16 10:26; Admin Dose 1 DROP; Start 07/13/16 at 21:00 Sodium Bicarbonate (Sodium Bicarbonate Tab) 650 mg TID PO Last administered on 07/16/16 09:36; Admin Dose 650 MG; Start 07/14/16 at 10:00 Epoetin Mauricio (Epogen (Esrd)) 10,000 units MoWeFr@17 SC Last administered on 17:20; Admin Dose 10,000 UNITS; Start 07/14/16 at 17:00 Ferrous Sulfate (Ferrous Sulfate (Ec)) 325 mg BID PO Last administered on 09:36; Admin Dose 325 MG; Start 07/14/16 at 21:00 Hydromorphone HCl (Dilaudid) 0.5 mg Q4 PRN IV BREAKTHROUGH PAIN Last administered on 07/16/16 10:24; Admin Dose 0.5 MG; Start 07/14/16 at 17:00 Pantoprazole (Protonix Tab) 40 mg DAILY@06 PO Last administered on 07/16/16 06 :10; Admin Dose 40 MG; Start 07/15/16 at 06:00 Bumetanide (Bumex) 2 mg DAILY PO Last administered on 07/16/16 09:37; Admin Dose 2 MG; Start 07/15/16 at 10:00 Simethicone (Mylicon) 80 mg Q6H PRN GTB DISTENSION/GAS/BLOATING Last administered on 07/15/16 11:24; Admin Dose 80 MG; Start 07/15/16 at 10:30 Docusate Sodium (Colace) 250 mg DAILY PO Last administered on 07/16/16 09:36; Admin Dose 250 MG; Start 07/15/16 at 11:30 Polyethylene Glycol (Miralax) 17 gm DAILY PO Last administered on 07/15/16 13: 58; Admin Dose 17 GM; Start 07/15/16 at 11:30 Tamsulosin HCl (Flomax) 0.4 mg HS PO Last administered on 07/15/16 20:46; Admin Dose 0.4 MG; Start 07/15/16 at 21:00 Rifampin (Rifampin) 600 mg DAILY PO Last administered on 07/16/16 09:37; Admin Dose 600 MG; Start 07/15/16 at 14:00 Hydralazine HCl (Apresoline) 50 mg TID PO Last administered on 07/16/16t 09:37 ; Admin Dose 50 MG; Start 07/15/16 at 21:00 DORENE GARCIA NP Jul 16, 2016 13:56
[2016-07-16 15:39] VITALS: BP 126/74; RESP 18
[2016-07-16] MEDS ORDERED: GUAIFENESIN/DM 5ML CUP PO PRN (17:00)
[2016-07-16] MEDS: EPOETIN 10000 UNITS/1 ML INJ (ESRD) SC SCH (17:23)
[2016-07-16 20:00] VITALS: BP 134/72; RESP 20
--- NOTE | 2016-07-16 20:00 | PN ---
Date/Time of Note Date/Time of Note DATE: 07/16/16 TIME: 19:58 Assessment/Plan VTE Prophylaxis VTE Prophylaxis Intervention: heparin Lines/Catheters IV Catheter Type (from [facility]): PICC Line Central line still needed: Yes Urinary Cath still in place: Yes Reason Cath still needed: other (indicate) Assessment/Plan Assessment/Plan 56-year-old male transferred from outside hospital managed as follows 1. Sepsis 2/2 Spinal abscess / UTI 2. Lumbar epidural abscess : MRSA * s/p evacuation 3. Chronic kidney disease r/o ARF 2/2 diuretic therapy Patient's baseline Cr seems to be about 2 4. ? Diabetes type 2 - A1c = 6.4 5. Hypertension: [id number]. Anemia 2/2 CKD Has received 4 units so far 7. 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 Deep venous thrombosis prophylaxis; SCDs. Subjective 24 Hr Interval Summary Constitutional: improved, no complaints Exam/Review of Systems Vital Signs Vitals Vital Signs Date Time Temp Pulse Resp B/P Pulse Ox O2 Delivery O2 Flow Rate FiO2 07/16/16 15:39 97.8 68 18 126/74 97 07/13/16 08:10 Nasal Cannula 2.0 Intake and Output 07/15/16 07/15/16 07/16/16 15:00 23:00 07:00 Intake Total 970 ml 120 ml Output Total 750 ml 200 ml Balance 220 ml -80 ml Exam Constitutional: alert, oriented Head: normocephalic Neck: supple Respiratory: clear to auscultation Cardiovascular: regular rate and rhythm Gastrointestinal: soft Results Result Diagram: 07/16/16 0720 07/16/16 0720 Results 24 hrs Laboratory Tests Test 07/15/16 20:44 07/16/16 07:20 07/16/16 07:40 07/16/16 07:53 Bedside Glucose 178 156 Anion Gap 15 Basophils # 0.0 Basophils % 0.4 Blood Morphology Comment Blood Urea Nitrogen 43 H Calcium Level 7.7 L Carbon Dioxide Level 23 Chloride Level 105 Creatinine 2.46 H Eosinophils # 0.1 Eosinophils % 3.1 Glucose Level 139 # Hematocrit 26.8 L Hemoglobin 9.2 L Lymphocytes # 1.0 Lymphocytes % 21.2 Mean Corpuscular Hemoglobin 29.3 Mean Corpuscular Hemoglobin Concent 34.5 Mean Corpuscular Volume 85.1 Mean Platelet Volume 7.6 Monocytes # 0.5 Monocytes % 11.4 H Neutrophils # 3.0 Neutrophils % 63.9 Nucleated Red Blood Cells # 0.0 Nucleated Red Blood Cells % 0.0 Platelet Count 169 Potassium Level 4.6 Red Blood Count 3.15 L Red Cell Distribution Width 17.5 H Sodium Level 138 White Blood Count 4.7 L Lab Scanned Report REFERENCE LAB Test 07/16/16 11:42 07/16/16 17:20 Bedside Glucose 153 209 Medications Medications Current Medications Ondansetron HCl (Zofran Inj) 4 mg Q6H PRN IV NAUSEA AND/OR VOMITING Last administered on 07/16/16 03:49; Admin Dose 4 MG; Start 07/10/16 at 17:30 Lorazepam (Ativan) 0.5 mg Q6H PRN IV ANXIETY; Start 07/10/16 at 17:30 Hydralazine HCl (Apresoline) 10 mg Q6H PRN IV ELEVATED BLOOD PRESSURE Last administered on 07/15/16 14:20; Admin Dose 10 MG; Start 07/10/16 at 17:30 Clonidine (Catapres) 0.1 mg Q6H PRN PO ELEVATED BLOOD PRESSURE Last administered on 07/14/16 13:07; Admin Dose 0.1 MG; Start 07/10/16 at 17:30 Nitroglycerin (Nitroglycerin (Sl Tab) 0.4 Mg) 1 tab Q5M PRN SL ANGINA; Start at 17:30 Amlodipine Besylate (Norvasc) 10 mg DAILY PO Last administered on 07/16/16 09: 36; Admin Dose 10 MG; Start 07/11/16 at 09:00 Carvedilol (Coreg) 6.25 mg BID PO Last administered on 07/16/16 09:37; Admin Dose 6.25 MG; Start 07/10/16 at 21:00 Lactobacillus Acidoph/Bulgaricus (Floranex) 1 tab TID PO Last administered on 13:55; Admin Dose 1 TAB; Start 07/10/16 at 21:00 Miscellaneous Information 1 ea NOTE XX ; Start 07/10/16 at 17:30 Glucose (Glutose) 15 gm Q15M PRN PO DECREASED GLUCOSE; Start 07/10/16 at 17:30 Glucose (Glutose) 22.5 gm Q15M PRN PO DECREASED GLUCOSE; Start 07/10/16 at 17: 30 Dextrose (D50w Syringe) 25 ml Q15M PRN IV DECREASED GLUCOSE Last administered on 07/12/16 07:54; Admin Dose 25 ML; Start 07/10/16 at 17:30 Dextrose (D50w Syringe) 50 ml Q15M PRN IV DECREASED GLUCOSE Last administered on 07/11/16 05:05; Admin Dose 50 ML; Start 07/10/16 at 17:30 Glucagon (Glucagen) 1 mg Q15M PRN IM DECREASED GLUCOSE; Start 07/10/16 at 17:30 Glucose (Glutose) 15 gm Q15M PRN BUCCAL DECREASED GLUCOSE; Start 07/10/16 at 17 :30 Finasteride (Proscar) 5 mg DAILY PO Last administered on 07/16/16 09:37; Admin Dose 5 MG; Start 07/13/16 at 09:00 Acetaminophen/ Hydrocodone Bitart ([place] (10/325)) 2 tab Q4H PRN PO PAIN LEVEL 6-10 Last administered on 07/12/16 22:20; Admin Dose 2 TAB; Start 07/12/16 at 17:00 Naloxone HCl (Narcan) 0.2 mg Q2M PRN IV RR 8 BREATHS/MIN OR LESS; Start at 17:00 Fluconazole 100 mg 100 mg DAILY PO Last administered on 07/16/16 10:24; Admin Dose 100 MG; Start 07/13/16 at 09:00 Vancomycin HCl (Vancocin) 100 ml @ 100 mls/hr Q36H IVPB Last administered on 18:05; Admin Dose 100 MLS/HR; Start 07/14/16 at 03:00 Ciprofloxacin HCl (Ciloxan 0.3% Oph) 1 drop TID RIGHT EYE Last administered on 07/16/16 13:00; Admin Dose 1 DROP; Start 07/13/16 at 21:00 Sodium Bicarbonate (Sodium Bicarbonate Tab) 650 mg TID PO Last administered on 07/16/16 13:55; Admin Dose 650 MG; Start 07/14/16 at 10:00 Epoetin Mauricio (Epogen (Esrd)) 10,000 units MoWeFr@17 SC Last administered on 17:23; Admin Dose 10,000 UNITS; Start 07/14/16 at 17:00 Ferrous Sulfate (Ferrous Sulfate (Ec)) 325 mg BID PO Last administered on 09:36; Admin Dose 325 MG; Start 07/14/16 at 21:00 Hydromorphone HCl (Dilaudid) 0.5 mg Q4 PRN IV BREAKTHROUGH PAIN Last administered on 07/16/16 18:26; Admin Dose 0.5 MG; Start 07/14/16 at 17:00 Pantoprazole (Protonix Tab) 40 mg DAILY@06 PO Last administered on 07/16/16 06 :10; Admin Dose 40 MG; Start 07/15/16 at 06:00 Bumetanide (Bumex) 2 mg DAILY PO Last administered on 07/16/16 09:37; Admin Dose 2 MG; Start 07/15/16 at 10:00 Simethicone (Mylicon) 80 mg Q6H PRN GTB DISTENSION/GAS/BLOATING Last administered on 07/15/16 11:24; Admin Dose 80 MG; Start 07/15/16 at 10:30 Docusate Sodium (Colace) 250 mg DAILY PO Last administered on 07/16/16 09:36; Admin Dose 250 MG; Start 07/15/16 at 11:30 Polyethylene Glycol (Miralax) 17 gm DAILY PO Last administered on 07/15/16 13: 58; Admin Dose 17 GM; Start 07/15/16 at 11:30 Tamsulosin HCl (Flomax) 0.4 mg HS PO Last administered on 07/15/16 20:46; Admin Dose 0.4 MG; Start 07/15/16 at 21:00 Rifampin (Rifampin) 600 mg DAILY PO Last administered on 07/16/16 09:37; Admin Dose 600 MG; Start 07/15/16 at 14:00 Hydralazine HCl (Apresoline) 50 mg TID PO Last administered on 07/16/16 13:55 ; Admin Dose 50 MG; Start 07/15/16 at 21:00 RAMON PUENTES Jul 16, 2016 20:00
[2016-07-16] MEDS: TAMSULOSIN (SR) 0.4 MG CAP PO SCH (21:48)
[2016-07-16] MEDS: OXYCODONE/ACETAMINOPHEN (5/325) TAB PO PRN (21:48)
[2016-07-16] MEDS: HEPARIN 5,000 UNIT/0.5 ML SYG SC SCH (22:03)
[2016-07-17] VITALS: BP 128/64; RESP 15
[2016-07-17] MEDS: ONDANSETRON 4 MG INJ IV PRN ×2 (02:54→20:31)
[2016-07-17] MEDS: HYDROmorphONE 1 MG/ML SYG IV PRN ×5 (02:55→20:30)
[2016-07-17 04:00] VITALS: BP 139/73; RESP 15
[2016-07-17] MEDS: VANCOMYCIN 500MG/NS (PMX) 100 ML IVPB SCH (04:40)
[2016-07-17] MEDS: PANTOPRAZOLE (EC) 40 MG TAB PO SCH (06:11)
[2016-07-17 07:24] LABS: POTASSIUM 4.3 mmol/L (3.5-5.1)
[2016-07-17] MEDS: INSULIN ASPART [NOVOLOG] 3 ML PEN SC SCH ×4 (07:25→21:00)
[2016-07-17 07:27] VITALS: BP 136/76; RESP 18
[2016-07-17 07:27] LABS: CREATININE 2.51 mg/dl (0.61-1.24)
[2016-07-17 07:28] LABS: CALCIUM 7.6 mg/dl (8.4-10.2)
[2016-07-17 08:02] LABS: BASOPHILS % 0.3 % (0.0-2.0); EOSINOPHILS # 0.2 10^3/ul (0.0-0.5); EOSINOPHILS % 5.1 % (0.0-7.0); HEMATOCRIT 26.4 % (42.0-52.0); HEMOGLOBIN 8.7 g/dl (14.0-18.0); LYMPHOCYTES # 1.1 10^3/ul (0.8-2.9); LYMPHOCYTES % 28.4 % (15.0-51.0); MEAN CORPUSCULAR HEMOGLOBIN 28.2 pg (29.0-33.0); MEAN CORPUSCULAR VOLUME 85.4 fl (82.0-101.0); MEAN PLATELET VOLUME 9.5 fl (7.4-10.4); MONOCYTE # 0.4 10^3/ul (0.3-0.9); MONOCYTES % 11.4 % (0.0-11.0); NEUTROPHILS % 54.5 % (39.0-77.0); PLATELET COUNT 167 10^3/UL (140-415); RED BLOOD COUNT 3.09 10^6/ul (4.70-6.10); RED CELL DISTRIBUTION WIDTH 16.8 % (11.5-14.5); WHITE BLOOD COUNT 3.7 10^3/ul (4.8-10.8)
[2016-07-17] MEDS: POLYETHYLENE GLYCOL 17 GM PACKET PO SCH (09:00)
--- NOTE | 2016-07-17 09:00 | CONS ---
Date/Time of Note Date/Time of Note DATE: 07/17/16 TIME: 08:56 Assessment/Plan Assessment/Plan Chief Complaint/Hosp Course 1. He is now 5 days post op a lumbar laminectomy at the L2 L3 level with a drainage of an abscess . He is feeling better today . 2. CKD , his renal function is about the same and he seems back to baseline . 3. anemia , he is on Epogen . 4. he has edema ,and is on Bumex . Problems: Consultation Date/Type/Reason Admit Date/Time Jul 10, 2016 at 15:03 Type of Consultation: renal 24 HR Interval Summary Free Text/Dictation He is feeling better . Constitutional: improved, no complaints Exam/Review of Systems Vital Signs Vitals Vital Signs Date Time Temp Pulse Resp B/P Pulse Ox O2 Delivery O2 Flow Rate FiO2 07/17/16 07:27 98.5 67 18 136/76 96 07/13/16 08:10 Nasal Cannula 2.0 Intake and Output 07/16/16 07/16/16 07/17/16 15:00 23:00 07:00 Intake Total 720 ml 800 ml Output Total 800 ml 652 ml Balance -80 ml 148 ml Exam Constitutional: alert, oriented Respiratory: clear to auscultation, normal air movement Cardiovascular: regular rate and rhythm Gastrointestinal: soft Extremities: edema Results Result Diagram: 07/17/16 0700 07/17/16 0700 Results 24 hrs Laboratory Tests Test 07/16/16 11:42 07/16/16 17:20 07/16/16 22:01 07/17/16 07:00 Bedside Glucose 153 209 153 Anion Gap 15 Basophils # 0.0 Basophils % 0.3 Blood Urea Nitrogen 44 H Calcium Level 7.6 L Carbon Dioxide Level 26 Chloride Level 101 Creatinine 2.51 H Eosinophils # 0.2 Eosinophils % 5.1 Glucose Level 133 Hematocrit 26.4 L Hemoglobin 8.7 L Lymphocytes # 1.1 Lymphocytes % 28.4 Mean Corpuscular Hemoglobin 28.2 L Mean Corpuscular Hemoglobin Concent 33.0 Mean Corpuscular Volume 85.4 Mean Platelet Volume 9.5 # Monocytes # 0.4 Monocytes % 11.4 H Neutrophils # 2.0 Neutrophils % 54.5 Nucleated Red Blood Cells # 0.0 Nucleated Red Blood Cells % 0.0 Platelet Count 167 Potassium Level 4.3 Red Blood Count 3.09 L Red Cell Distribution Width 16.8 H Sodium Level 138 White Blood Count 3.7 #L Test 07/17/16 07:52 Bedside Glucose 137 Medications Medications Current Medications Ondansetron HCl (Zofran Inj) 4 mg Q6H PRN IV NAUSEA AND/OR VOMITING Last administered on 07/17/16 02:54; Admin Dose 4 MG; Start 07/10/16 at 17:30 Lorazepam (Ativan) 0.5 mg Q6H PRN IV ANXIETY; Start 07/10/16 at 17:30 Hydralazine HCl (Apresoline) 10 mg Q6H PRN IV ELEVATED BLOOD PRESSURE Last administered on 07/15/16 14:20; Admin Dose 10 MG; Start 07/10/16 at 17:30 Clonidine (Catapres) 0.1 mg Q6H PRN PO ELEVATED BLOOD PRESSURE Last administered on 07/14/16 13:07; Admin Dose 0.1 MG; Start 07/10/16 at 17:30 Nitroglycerin (Nitroglycerin (Sl Tab) 0.4 Mg) 1 tab Q5M PRN SL ANGINA; Start at 17:30 Amlodipine Besylate (Norvasc) 10 mg DAILY PO Last administered on 07/16/16 09: 36; Admin Dose 10 MG; Start 07/11/16 at 09:00 Carvedilol (Coreg) 6.25 mg BID PO Last administered on 07/16/16 21:49; Admin Dose 6.25 MG; Start 07/10/16 at 21:00 Lactobacillus Acidoph/Bulgaricus (Floranex) 1 tab TID PO Last administered on 21:48; Admin Dose 1 TAB; Start 07/10/16 at 21:00 Miscellaneous Information 1 ea NOTE XX ; Start 07/10/16 at 17:30 Glucose (Glutose) 15 gm Q15M PRN PO DECREASED GLUCOSE; Start 07/10/16 at 17:30 Glucose (Glutose) 22.5 gm Q15M PRN PO DECREASED GLUCOSE; Start 07/10/16 at 17: 30 Dextrose (D50w Syringe) 25 ml Q15M PRN IV DECREASED GLUCOSE Last administered on 07/12/16 07:54; Admin Dose 25 ML; Start 07/10/16 at 17:30 Dextrose (D50w Syringe) 50 ml Q15M PRN IV DECREASED GLUCOSE Last administered on 07/11/16 05:05; Admin Dose 50 ML; Start 07/10/16 at 17:30 Glucagon (Glucagen) 1 mg Q15M PRN IM DECREASED GLUCOSE; Start 07/10/16 at 17:30 Glucose (Glutose) 15 gm Q15M PRN BUCCAL DECREASED GLUCOSE; Start 07/10/16 at 17 :30 Finasteride (Proscar) 5 mg DAILY PO Last administered on 07/16/16 09:37; Admin Dose 5 MG; Start 07/13/16 at 09:00 Naloxone HCl (Narcan) 0.2 mg Q2M PRN IV RR 8 BREATHS/MIN OR LESS; Start at 17:00 Fluconazole 100 mg 100 mg DAILY PO Last administered on 07/16/16 10:24; Admin Dose 100 MG; Start 07/13/16 at 09:00 Vancomycin HCl (Vancocin) 100 ml @ 100 mls/hr Q36H IVPB Last administered on 04:40; Admin Dose 100 MLS/HR; Start 07/14/16 at 03:00 Ciprofloxacin HCl (Ciloxan 0.3% Oph) 1 drop TID RIGHT EYE Last administered on 07/16/16 21:50; Admin Dose 1 DROP; Start 07/13/16 at 21:00 Sodium Bicarbonate (Sodium Bicarbonate Tab) 650 mg TID PO Last administered on 07/16/16 21:49; Admin Dose 650 MG; Start 07/14/16 at 10:00 Epoetin Mauricio (Epogen (Esrd)) 10,000 units MoWeFr@17 SC Last administered on 17:23; Admin Dose 10,000 UNITS; Start 07/14/16 at 17:00 Ferrous Sulfate (Ferrous Sulfate (Ec)) 325 mg BID PO Last administered on 21:48; Admin Dose 325 MG; Start 07/14/16 at 21:00 Hydromorphone HCl (Dilaudid) 0.5 mg Q4 PRN IV BREAKTHROUGH PAIN Last administered on 07/17/16 06:55; Admin Dose 0.5 MG; Start 07/14/16 at 17:00 Pantoprazole (Protonix Tab) 40 mg DAILY@06 PO Last administered on 07/17/16 06 :11; Admin Dose 40 MG; Start 07/15/16 at 06:00 Bumetanide (Bumex) 2 mg DAILY PO Last administered on 07/16/16 09:37; Admin Dose 2 MG; Start 07/15/16 at 10:00 Simethicone (Mylicon) 80 mg Q6H PRN GTB DISTENSION/GAS/BLOATING Last administered on 07/15/16 11:24; Admin Dose 80 MG; Start 07/15/16 at 10:30 Docusate Sodium (Colace) 250 mg DAILY PO Last administered on 07/16/16 09:36; Admin Dose 250 MG; Start 07/15/16 at 11:30 Polyethylene Glycol (Miralax) 17 gm DAILY PO Last administered on 07/15/16 13: 58; Admin Dose 17 GM; Start 07/15/16 at 11:30 Tamsulosin HCl (Flomax) 0.4 mg HS PO Last administered on 07/16/16 21:48; Admin Dose 0.4 MG; Start 07/15/16 at 21:00 Rifampin (Rifampin) 600 mg DAILY PO Last administered on 07/16/16 09:37; Admin Dose 600 MG; Start 07/15/16 at 14:00 Hydralazine HCl (Apresoline) 50 mg TID PO Last administered on 07/16/16 21:49 ; Admin Dose 50 MG; Start 07/15/16 at 21:00 Heparin Sodium (Porcine) (Heparin (5000 Units/0.5 ml)) 5,000 unit BID SC Last administered on 07/16/16 22:03; Admin Dose 5,000 UNIT; Start 07/16/16 at 21:00 Oxycodone/ Acetaminophen (Percocet (5/ 325)) 1 tab Q4H PRN PO BREAKTHROUGH PAIN Last administered on 07/16/16 21:48; Admin Dose 1 TAB; Start 07/16/16 at 22:00 JACOB WHEELER MD Jul 17, 2016 09:00
[2016-07-17] MEDS: FINASTERIDE 5 MG TAB PO SCH (09:20)
[2016-07-17] MEDS: FERROUS SULFATE (EC) 325 MG TAB PO SCH ×2 (09:20→20:30)
[2016-07-17] MEDS: RIFAMPIN 300 MG CAP PO SCH (09:20)
[2016-07-17] MEDS: DOCUSATE SODIUM 250 MG CAP PO SCH (09:20)
[2016-07-17] MEDS: AMLODIPINE 10 MG TAB PO SCH (09:20)
[2016-07-17] MEDS: LACTOBACILLUS CHEW TAB PO SCH ×3 (09:20→20:30)
[2016-07-17] MEDS: BUMETANIDE 1 MG TAB PO SCH (09:20)
[2016-07-17] MEDS: FLUCONAZOLE 100 MG TAB PO SCH (09:21)
[2016-07-17] MEDS: CIPROFLOXACIN 0.3% 2.5 ML OPH RIGHT EYE SCH ×3 (09:21→20:35)
[2016-07-17] MEDS: NA BICARBONATE 650 MG TAB PO SCH ×3 (09:21→20:30)
[2016-07-17] MEDS: HEPARIN 5,000 UNIT/0.5 ML SYG SC SCH ×2 (09:35→22:01)
[2016-07-17 11:37] VITALS: BP 156/78; RESP 18
--- NOTE | 2016-07-17 11:51 | PN ---
Date/Time of Note Date/Time of Note DATE: 07/17/16 TIME: 11:49 Assessment/Plan VTE Prophylaxis VTE Prophylaxis Intervention: SCD's Lines/Catheters IV Catheter Type (from [facility]): PICC Line Central line still needed: Yes Urinary Cath still in place: Yes Reason Cath still needed: other (indicate) Assessment/Plan Assessment/Plan Assessment/Plan 56-year-old male transferred from outside hospital managed as follows 1. Sepsis 2/2 Spinal abscess / UTI: resolved 2. Lumbar epidural abscess : MRSA * s/p evacuation 3. Chronic kidney disease r/o ARF 2/2 diuretic therapy Patient's baseline Cr seems to be about 2.5 4. ? Diabetes type 2 - A1c = 6.4 5. Hypertension: [id number]. Anemia 2/2 CKD Has received 4 units so far 7. 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 Deep venous thrombosis prophylaxis; SCDs. Subjective 24 Hr Interval Summary Constitutional: improved, no complaints Exam/Review of Systems Vital Signs Vitals Vital Signs Date Time Temp Pulse Resp B/P Pulse Ox O2 Delivery O2 Flow Rate FiO2 07/17/16 11:37 98.1 69 18 156/78 96 07/13/16 08:10 Nasal Cannula 2.0 Intake and Output 07/16/16 07/16/16 07/17/16 14:59 22:59 06:59 Intake Total 720 ml 800 ml Output Total 800 ml 652 ml Balance -80 ml 148 ml Exam Constitutional: alert, oriented Head: normocephalic Neck: supple Respiratory: clear to auscultation Cardiovascular: regular rate and rhythm Gastrointestinal: soft Extremities: pitting pedal edema Results Result Diagram: 07/17/16 0700 07/17/16 0700 Results 24 hrs Laboratory Tests Test 07/16/16 17:20 07/16/16 22:01 07/17/16 07:00 07/17/16 07:52 Bedside Glucose 209 153 137 Anion Gap 15 Basophils # 0.0 Basophils % 0.3 Blood Urea Nitrogen 44 H Calcium Level 7.6 L Carbon Dioxide Level 26 Chloride Level 101 Creatinine 2.51 H Eosinophils # 0.2 Eosinophils % 5.1 Glucose Level 133 Hematocrit 26.4 L Hemoglobin 8.7 L Lymphocytes # 1.1 Lymphocytes % 28.4 Mean Corpuscular Hemoglobin 28.2 L Mean Corpuscular Hemoglobin Concent 33.0 Mean Corpuscular Volume 85.4 Mean Platelet Volume 9.5 # Monocytes # 0.4 Monocytes % 11.4 H Neutrophils # 2.0 Neutrophils % 54.5 Nucleated Red Blood Cells # 0.0 Nucleated Red Blood Cells % 0.0 Platelet Count 167 Potassium Level 4.3 Red Blood Count 3.09 L Red Cell Distribution Width 16.8 H Sodium Level 138 White Blood Count 3.7 #L Test 07/17/16 11:42 Bedside Glucose 155 Medications Medications Current Medications Ondansetron HCl (Zofran Inj) 4 mg Q6H PRN IV NAUSEA AND/OR VOMITING Last administered on 07/17/16 02:54; Admin Dose 4 MG; Start 07/10/16 at 17:30 Lorazepam (Ativan) 0.5 mg Q6H PRN IV ANXIETY; Start 07/10/16 at 17:30 Hydralazine HCl (Apresoline) 10 mg Q6H PRN IV ELEVATED BLOOD PRESSURE Last administered on 07/15/16 14:20; Admin Dose 10 MG; Start 07/10/16 at 17:30 Clonidine (Catapres) 0.1 mg Q6H PRN PO ELEVATED BLOOD PRESSURE Last administered on 07/14/16 13:07; Admin Dose 0.1 MG; Start 07/10/16 at 17:30 Nitroglycerin (Nitroglycerin (Sl Tab) 0.4 Mg) 1 tab Q5M PRN SL ANGINA; Start at 17:30 Amlodipine Besylate (Norvasc) 10 mg DAILY PO Last administered on 07/17/16 09: 20; Admin Dose 10 MG; Start 07/11/16 at 09:00 Carvedilol (Coreg) 6.25 mg BID PO Last administered on 07/17/16 09:20; Admin Dose 6.25 MG; Start 07/10/16 at 21:00 Lactobacillus Acidoph/Bulgaricus (Floranex) 1 tab TID PO Last administered on 09:20; Admin Dose 1 TAB; Start 07/10/16 at 21:00 Miscellaneous Information 1 ea NOTE XX ; Start 07/10/16 at 17:30 Glucose (Glutose) 15 gm Q15M PRN PO DECREASED GLUCOSE; Start 07/10/16 at 17:30 Glucose (Glutose) 22.5 gm Q15M PRN PO DECREASED GLUCOSE; Start 07/10/16 at 17: 30 Dextrose (D50w Syringe) 25 ml Q15M PRN IV DECREASED GLUCOSE Last administered on 07/12/16 07:54; Admin Dose 25 ML; Start 07/10/16 at 17:30 Dextrose (D50w Syringe) 50 ml Q15M PRN IV DECREASED GLUCOSE Last administered on 07/11/16 05:05; Admin Dose 50 ML; Start 07/10/16 at 17:30 Glucagon (Glucagen) 1 mg Q15M PRN IM DECREASED GLUCOSE; Start 07/10/16 at 17:30 Glucose (Glutose) 15 gm Q15M PRN BUCCAL DECREASED GLUCOSE; Start 07/10/16 at 17 :30 Finasteride (Proscar) 5 mg DAILY PO Last administered on 07/17/16 09:20; Admin Dose 5 MG; Start 07/13/16 at 09:00 Naloxone HCl (Narcan) 0.2 mg Q2M PRN IV RR 8 BREATHS/MIN OR LESS; Start at 17:00 Fluconazole 100 mg 100 mg DAILY PO Last administered on 07/17/16 09:21; Admin Dose 100 MG; Start 07/13/16 at 09:00 Vancomycin HCl (Vancocin) 100 ml @ 100 mls/hr Q36H IVPB Last administered on 04:40; Admin Dose 100 MLS/HR; Start 07/14/16 at 03:00 Ciprofloxacin HCl (Ciloxan 0.3% Oph) 1 drop TID RIGHT EYE Last administered on 07/17/16 09:21; Admin Dose 1 DROP; Start 07/13/16 at 21:00 Sodium Bicarbonate (Sodium Bicarbonate Tab) 650 mg TID PO Last administered on 07/17/16 09:21; Admin Dose 650 MG; Start 07/14/16 at 10:00 Epoetin Mauricio (Epogen (Esrd)) 10,000 units MoWeFr@17 SC Last administered on 17:23; Admin Dose 10,000 UNITS; Start 07/14/16 at 17:00 Ferrous Sulfate (Ferrous Sulfate (Ec)) 325 mg BID PO Last administered on 09:20; Admin Dose 325 MG; Start 07/14/16 at 21:00 Hydromorphone HCl (Dilaudid) 0.5 mg Q4 PRN IV BREAKTHROUGH PAIN Last administered on 07/17/16 11:46; Admin Dose 0.5 MG; Start 07/14/16 at 17:00 Pantoprazole (Protonix Tab) 40 mg DAILY@06 PO Last administered on 07/17/16 06 :11; Admin Dose 40 MG; Start 07/15/16 at 06:00 Bumetanide (Bumex) 2 mg DAILY PO Last administered on 07/17/16 09:20; Admin Dose 2 MG; Start 07/15/16 at 10:00 Simethicone (Mylicon) 80 mg Q6H PRN GTB DISTENSION/GAS/BLOATING Last administered on 07/15/16 11:24; Admin Dose 80 MG; Start 07/15/16 at 10:30 Docusate Sodium (Colace) 250 mg DAILY PO Last administered on 07/17/16 09:20; Admin Dose 250 MG; Start 07/15/16 at 11:30 Polyethylene Glycol (Miralax) 17 gm DAILY PO Last administered on 07/15/16 13: 58; Admin Dose 17 GM; Start 07/15/16 at 11:30 Tamsulosin HCl (Flomax) 0.4 mg HS PO Last administered on 07/16/16 21:48; Admin Dose 0.4 MG; Start 07/15/16 at 21:00 Rifampin (Rifampin) 600 mg DAILY PO Last administered on 07/17/16 09:20; Admin Dose 600 MG; Start 07/15/16 at 14:00 Hydralazine HCl (Apresoline) 50 mg TID PO Last administered on 07/17/16 09:20 ; Admin Dose 50 MG; Start 07/15/16 at 21:00 Heparin Sodium (Porcine) (Heparin (5000 Units/0.5 ml)) 5,000 unit BID SC Last administered on 07/17/16 09:35; Admin Dose 5,000 UNIT; Start 07/16/16 at 21:00 Oxycodone/ Acetaminophen (Percocet (5/ 325)) 1 tab Q4H PRN PO BREAKTHROUGH PAIN Last administered on 07/16/16t 21:48; Admin Dose 1 TAB; Start 07/16/16 at 22:00 RAMON PUENTES Jul 17, 2016 11:50
--- NOTE | 2016-07-17 13:24 | CONS ---
Date/Time of Note Date/Time of Note DATE: 07/17/16 TIME: 13:23 Assessment/Plan Assessment/Plan Chief Complaint/Hosp Course SUBJECTIVE: No events overnight. The patient is alert, looks comfortable. Denies pain, discomfort. He is getting Cox placed 2 to retention MICROBIOLOGY: Urine culture grew Enterobacter aerogenes and Katharina glabrata on admission. Lumbar culture growing MRSA, susceptible to vancomycin, clindamycin, rifampin, Bactrim. Anaerobic cultures had been negative. Indwelling: PICC Cox ANTIMICROBIALS: Rifampin IV vancomycin. PHYSICAL EXAMINATION: GENERAL: Well-developed, middle-aged man who is alert, in no distress. HEENT: Head atraumatic, normocephalic. Sclerae anicteric. Buccal mucosa dry. NECK: Supple. CHEST: Rise symmetrical. Breath sounds diminished to bases. HEART: S1, S2. ABDOMEN: Soft, bowel sounds present. EXTREMITIES: Without cyanosis. ASSESSMENT: 1. Lumbar diskitis, osteomyelitis, Methicillin-resistant Staphylococcus aureus psoas abscess, status post decompressive laminectomy with evacuation of abscess on 07/12/2016. 2. Chronic kidney disease. 3. Status post urinary tract infection. 4. Diabetes. 5. Hypertension. 6. Urinary retention==> s/p Cox PLAN: Remains stable, continue abx for 6 weeks, f/u nephrology rec-s. He may need a repeat MRI prior dc of abx, ortho rec-s DW staff Problems: Consultation Date/Type/Reason Admit Date/Time Jul 10, 2016 at 15:03 Type of Consultation: id Exam/Review of Systems Vital Signs Vitals Vital Signs Date Time Temp Pulse Resp B/P Pulse Ox O2 Delivery O2 Flow Rate FiO2 07/17/16 11:37 98.1 69 18 156/78 96 07/13/16 08:10 Nasal Cannula 2.0 Intake and Output 07/16/16 07/16/16 07/17/16 15:00 23:00 07:00 Intake Total 720 ml 800 ml Output Total 800 ml 652 ml Balance -80 ml 148 ml Results Result Diagram: 07/17/16 0700 07/17/16 0700 Results 24 hrs Laboratory Tests Test 07/16/16 17:20 07/16/16 22:01 07/17/16 07:00 07/17/16 07:52 Bedside Glucose 209 153 137 Anion Gap 15 Basophils # 0.0 Basophils % 0.3 Blood Urea Nitrogen 44 H Calcium Level 7.6 L Carbon Dioxide Level 26 Chloride Level 101 Creatinine 2.51 H Eosinophils # 0.2 Eosinophils % 5.1 Glucose Level 133 Hematocrit 26.4 L Hemoglobin 8.7 L Lymphocytes # 1.1 Lymphocytes % 28.4 Mean Corpuscular Hemoglobin 28.2 L Mean Corpuscular Hemoglobin Concent 33.0 Mean Corpuscular Volume 85.4 Mean Platelet Volume 9.5 # Monocytes # 0.4 Monocytes % 11.4 H Neutrophils # 2.0 Neutrophils % 54.5 Nucleated Red Blood Cells # 0.0 Nucleated Red Blood Cells % 0.0 Platelet Count 167 Potassium Level 4.3 Red Blood Count 3.09 L Red Cell Distribution Width 16.8 H Sodium Level 138 White Blood Count 3.7 #L Test 07/17/16 11:42 Bedside Glucose 155 Medications Medications Current Medications Ondansetron HCl (Zofran Inj) 4 mg Q6H PRN IV NAUSEA AND/OR VOMITING Last administered on 07/17/16 02:54; Admin Dose 4 MG; Start 07/10/16 at 17:30 Lorazepam (Ativan) 0.5 mg Q6H PRN IV ANXIETY; Start 07/10/16 at 17:30 Hydralazine HCl (Apresoline) 10 mg Q6H PRN IV ELEVATED BLOOD PRESSURE Last administered on 07/15/16 14:20; Admin Dose 10 MG; Start 07/10/16 at 17:30 Clonidine (Catapres) 0.1 mg Q6H PRN PO ELEVATED BLOOD PRESSURE Last administered on 07/14/16 13:07; Admin Dose 0.1 MG; Start 07/10/16 at 17:30 Nitroglycerin (Nitroglycerin (Sl Tab) 0.4 Mg) 1 tab Q5M PRN SL ANGINA; Start at 17:30 Amlodipine Besylate (Norvasc) 10 mg DAILY PO Last administered on 07/17/16 09: 20; Admin Dose 10 MG; Start 07/11/16 at 09:00 Carvedilol (Coreg) 6.25 mg BID PO Last administered on 07/17/16 09:20; Admin Dose 6.25 MG; Start 07/10/16 at 21:00 Lactobacillus Acidoph/Bulgaricus (Floranex) 1 tab TID PO Last administered on 09:20; Admin Dose 1 TAB; Start 07/10/16 at 21:00 Miscellaneous Information 1 ea NOTE XX ; Start 07/10/16 at 17:30 Glucose (Glutose) 15 gm Q15M PRN PO DECREASED GLUCOSE; Start 07/10/16 at 17:30 Glucose (Glutose) 22.5 gm Q15M PRN PO DECREASED GLUCOSE; Start 07/10/16 at 17: 30 Dextrose (D50w Syringe) 25 ml Q15M PRN IV DECREASED GLUCOSE Last administered on 07/12/16 07:54; Admin Dose 25 ML; Start 07/10/16 at 17:30 Dextrose (D50w Syringe) 50 ml Q15M PRN IV DECREASED GLUCOSE Last administered on 07/11/16 05:05; Admin Dose 50 ML; Start 07/10/16 at 17:30 Glucagon (Glucagen) 1 mg Q15M PRN IM DECREASED GLUCOSE; Start 07/10/16 at 17:30 Glucose (Glutose) 15 gm Q15M PRN BUCCAL DECREASED GLUCOSE; Start 07/10/16 at 17 :30 Finasteride (Proscar) 5 mg DAILY PO Last administered on 07/17/16 09:20; Admin Dose 5 MG; Start 07/13/16 at 09:00 Naloxone HCl (Narcan) 0.2 mg Q2M PRN IV RR 8 BREATHS/MIN OR LESS; Start at 17:00 Fluconazole 100 mg 100 mg DAILY PO Last administered on 07/17/16 09:21; Admin Dose 100 MG; Start 07/13/16 at 09:00 Vancomycin HCl (Vancocin) 100 ml @ 100 mls/hr Q36H IVPB Last administered on 04:40; Admin Dose 100 MLS/HR; Start 07/14/16 at 03:00 Ciprofloxacin HCl (Ciloxan 0.3% Oph) 1 drop TID RIGHT EYE Last administered on 07/17/16 09:21; Admin Dose 1 DROP; Start 07/13/16 at 21:00 Sodium Bicarbonate (Sodium Bicarbonate Tab) 650 mg TID PO Last administered on 07/17/16 09:21; Admin Dose 650 MG; Start 07/14/16 at 10:00 Epoetin Mauricio (Epogen (Esrd)) 10,000 units MoWeFr@17 SC Last administered on 17:23; Admin Dose 10,000 UNITS; Start 07/14/16 at 17:00 Ferrous Sulfate (Ferrous Sulfate (Ec)) 325 mg BID PO Last administered on 09:20; Admin Dose 325 MG; Start 07/14/16 at 21:00 Hydromorphone HCl (Dilaudid) 0.5 mg Q4 PRN IV BREAKTHROUGH PAIN Last administered on 07/17/16 11:46; Admin Dose 0.5 MG; Start 07/14/16 at 17:00 Pantoprazole (Protonix Tab) 40 mg DAILY@06 PO Last administered on 07/17/16 06 :11; Admin Dose 40 MG; Start 07/15/16 at 06:00 Bumetanide (Bumex) 2 mg DAILY PO Last administered on 07/17/16 09:20; Admin Dose 2 MG; Start 07/15/16 at 10:00 Simethicone (Mylicon) 80 mg Q6H PRN GTB DISTENSION/GAS/BLOATING Last administered on 07/15/16 11:24; Admin Dose 80 MG; Start 07/15/16 at 10:30 Docusate Sodium (Colace) 250 mg DAILY PO Last administered on 07/17/16 09:20; Admin Dose 250 MG; Start 07/15/16 at 11:30 Polyethylene Glycol (Miralax) 17 gm DAILY PO Last administered on 07/15/16 13: 58; Admin Dose 17 GM; Start 07/15/16 at 11:30 Tamsulosin HCl (Flomax) 0.4 mg HS PO Last administered on 07/16/16 21:48; Admin Dose 0.4 MG; Start 07/15/16 at 21:00 Rifampin (Rifampin) 600 mg DAILY PO Last administered on 07/17/16 09:20; Admin Dose 600 MG; Start 07/15/16 at 14:00 Hydralazine HCl (Apresoline) 50 mg TID PO Last administered on 07/17/16 09:20 ; Admin Dose 50 MG; Start 07/15/16 at 21:00 Heparin Sodium (Porcine) (Heparin (5000 Units/0.5 ml)) 5,000 unit BID SC Last administered on 07/17/16 09:35; Admin Dose 5,000 UNIT; Start 07/16/16 at 21:00 Oxycodone/ Acetaminophen (Percocet (5/ 325)) 1 tab Q4H PRN PO BREAKTHROUGH PAIN Last administered on 07/16/16 21:48; Admin Dose 1 TAB; Start 07/16/16 at 22:00 DORENE GARCIA NP Jul 17, 2016 13:24
[2016-07-17] MEDS: OXYCODONE/ACETAMINOPHEN (5/325) TAB PO PRN ×2 (13:28→19:03)
[2016-07-17 15:39] VITALS: BP 100/50; RESP 18
[2016-07-17] MEDS: TAMSULOSIN (SR) 0.4 MG CAP PO SCH (20:30)
[2016-07-18 01:00] VITALS: BP 95/50; PULSE 75; RESP 18
[2016-07-18] MEDS: HYDROmorphONE 1 MG/ML SYG IV PRN ×6 (01:21→22:21)
[2016-07-18 05:48] LABS: ADD SCAN DIFF NO
[2016-07-18] MEDS: PANTOPRAZOLE (EC) 40 MG TAB PO SCH (05:50)
[2016-07-18 06:05] LABS: BASOPHILS % 0.6 % (0.0-2.0); EOSINOPHILS # 0.2 10^3/ul (0.0-0.5); EOSINOPHILS % 5.4 % (0.0-7.0); HEMATOCRIT 29.5 % (42.0-52.0); HEMOGLOBIN 10.1 g/dl (14.0-18.0); LYMPHOCYTES % 29.8 % (15.0-51.0); MEAN CORPUSCULAR HEMOGLOBIN 28.9 pg (29.0-33.0); MEAN CORPUSCULAR HGB CONC 34.2 g/dl (32.0-37.0); MEAN CORPUSCULAR VOLUME 84.3 fl (82.0-101.0); MEAN PLATELET VOLUME 9.8 fl (7.4-10.4); MONOCYTE # 0.4 10^3/ul (0.3-0.9); MONOCYTES % 10.4 % (0.0-11.0); NEUTROPHIL # 1.8 10^3/ul (1.6-7.5); NEUTROPHILS % 53.5 % (39.0-77.0); PLATELET COUNT 215 10^3/UL (140-415); RED CELL DISTRIBUTION WIDTH 16.7 % (11.5-14.5); WHITE BLOOD COUNT 3.4 10^3/ul (4.8-10.8)
[2016-07-18 06:13] LABS: POTASSIUM 4.4 mmol/L (3.5-5.1)
[2016-07-18 06:15] LABS: CREATININE 2.72 mg/dl (0.61-1.24)
[2016-07-18 07:11] VITALS: BP 158/83; RESP 16
[2016-07-18] MEDS: INSULIN ASPART [NOVOLOG] 3 ML PEN SC SCH ×4 (07:30→21:01)
[2016-07-18] MEDS: HEPARIN 5,000 UNIT/0.5 ML SYG SC SCH ×2 (08:45→20:53)
[2016-07-18] MEDS: BUMETANIDE 1 MG TAB PO SCH ×2 (08:46→18:18)
[2016-07-18] MEDS: NA BICARBONATE 650 MG TAB PO SCH ×3 (08:46→21:05)
[2016-07-18] MEDS: FINASTERIDE 5 MG TAB PO SCH (08:46)
[2016-07-18] MEDS: FERROUS SULFATE (EC) 325 MG TAB PO SCH ×2 (08:47→20:49)
[2016-07-18] MEDS: FLUCONAZOLE 100 MG TAB PO SCH (08:47)
[2016-07-18] MEDS: RIFAMPIN 300 MG CAP PO SCH (08:47)
[2016-07-18] MEDS: LACTOBACILLUS CHEW TAB PO SCH ×3 (08:47→20:54)
[2016-07-18] MEDS: AMLODIPINE 10 MG TAB PO SCH (08:48)
[2016-07-18] MEDS: POLYETHYLENE GLYCOL 17 GM PACKET PO SCH (08:48)
[2016-07-18] MEDS: CIPROFLOXACIN 0.3% 2.5 ML OPH RIGHT EYE SCH ×3 (09:00→20:54)
[2016-07-18] MEDS: DOCUSATE SODIUM 250 MG CAP PO SCH (09:00)
--- NOTE | 2016-07-18 09:43 | CONS ---
Date/Time of Note Date/Time of Note DATE: 07/18/16 TIME: 09:35 Assessment/Plan Assessment/Plan Chief Complaint/Hosp Course 1. He is now 6 days post op a lumbar laminectomy at the L2 L3 level with a drainage of an abscess . He is feeling better with less back pain . 2. CKD , nephrotic syndrome , diabetic nephropathy . check labs in am 3. anemia , he is on Epogen . 4. he has more edema ,and is on Bumex . I will increase the Bumex to BID and taper off amlodipine . Problems: Consultation Date/Type/Reason Admit Date/Time Jul 10, 2016 at 15:03 Type of Consultation: id [id number] HR Interval Summary Free Text/Dictation He is having less back pain . Exam/Review of Systems Vital Signs Vitals Vital Signs Date Time Temp Pulse Resp B/P Pulse Ox O2 Delivery O2 Flow Rate FiO2 07/18/16 07:11 97.7 64 16 158/83 96 07/18/16 01:00 Room Air 07/17/16 17:47 21 Intake and Output 07/17/16 07/17/16 07/18/16 15:00 23:00 07:00 Intake Total 900 ml 240 ml Output Total 200 ml 200 ml Balance 700 ml 40 ml Exam Constitutional: alert, oriented Psych: no complaints Respiratory: clear to auscultation, normal air movement Cardiovascular: edema, regular rate and rhythm Extremities: edema Results Result Diagram: 07/18/16 0443 07/18/16 0443 Results 24 hrs Laboratory Tests Test 07/17/16 11:42 07/17/16 17:00 07/17/16 21:43 07/18/16 04:43 Bedside Glucose 155 146 110 Anion Gap 15 Basophils # 0.0 Basophils % 0.6 Blood Urea Nitrogen 48 H Calcium Level 8.0 L Carbon Dioxide Level 26 Chloride Level 101 Creatinine 2.72 H Eosinophils # 0.2 Eosinophils % 5.4 Glucose Level 106 Hematocrit 29.5 L Hemoglobin 10.1 L Lymphocytes # 1.0 Lymphocytes % 29.8 Mean Corpuscular Hemoglobin 28.9 L Mean Corpuscular Hemoglobin Concent 34.2 Mean Corpuscular Volume 84.3 Mean Platelet Volume 9.8 Monocytes # 0.4 Monocytes % 10.4 Neutrophils # 1.8 Neutrophils % 53.5 Nucleated Red Blood Cells # 0.0 Nucleated Red Blood Cells % 0.0 Platelet Count 215 # Potassium Level 4.4 Red Blood Count 3.50 L Red Cell Distribution Width 16.7 H Sodium Level 138 White Blood Count 3.4 L Test 07/18/16 07:55 Bedside Glucose 104 Medications Medications Current Medications Ondansetron HCl (Zofran Inj) 4 mg Q6H PRN IV NAUSEA AND/OR VOMITING Last administered on 07/17/16 20:31; Admin Dose 4 MG; Start 07/10/16 at 17:30 Lorazepam (Ativan) 0.5 mg Q6H PRN IV ANXIETY; Start 07/10/16 at 17:30 Hydralazine HCl (Apresoline) 10 mg Q6H PRN IV ELEVATED BLOOD PRESSURE Last administered on 07/15/16 14:20; Admin Dose 10 MG; Start 07/10/16 at 17:30 Clonidine (Catapres) 0.1 mg Q6H PRN PO ELEVATED BLOOD PRESSURE Last administered on 07/14/16 13:07; Admin Dose 0.1 MG; Start 07/10/16 at 17:30 Nitroglycerin (Nitroglycerin (Sl Tab) 0.4 Mg) 1 tab Q5M PRN SL ANGINA; Start at 17:30 Amlodipine Besylate (Norvasc) 10 mg DAILY PO Last administered on 07/18/16 08: 48; Admin Dose 10 MG; Start 07/11/16 at 09:00 Carvedilol (Coreg) 6.25 mg BID PO Last administered on 07/18/16 08:47; Admin Dose 6.25 MG; Start 07/10/16 at 21:00 Lactobacillus Acidoph/Bulgaricus (Floranex) 1 tab TID PO Last administered on 08:47; Admin Dose 1 TAB; Start 07/10/16 at 21:00 Miscellaneous Information 1 ea NOTE XX ; Start 07/10/16 at 17:30 Glucose (Glutose) 15 gm Q15M PRN PO DECREASED GLUCOSE; Start 07/10/16 at 17:30 Glucose (Glutose) 22.5 gm Q15M PRN PO DECREASED GLUCOSE; Start 07/10/16 at 17: 30 Dextrose (D50w Syringe) 25 ml Q15M PRN IV DECREASED GLUCOSE Last administered on 07/12/16 07:54; Admin Dose 25 ML; Start 07/10/16 at 17:30 Dextrose (D50w Syringe) 50 ml Q15M PRN IV DECREASED GLUCOSE Last administered on 07/11/16 05:05; Admin Dose 50 ML; Start 07/10/16 at 17:30 Glucagon (Glucagen) 1 mg Q15M PRN IM DECREASED GLUCOSE; Start 07/10/16 at 17:30 Glucose (Glutose) 15 gm Q15M PRN BUCCAL DECREASED GLUCOSE; Start 07/10/16 at 17 :30 Finasteride (Proscar) 5 mg DAILY PO Last administered on 07/18/16 08:46; Admin Dose 5 MG; Start 07/13/16 at 09:00 Naloxone HCl (Narcan) 0.2 mg Q2M PRN IV RR 8 BREATHS/MIN OR LESS; Start at 17:00 Fluconazole (Diflucan) 100 mg DAILY PO Last administered on 07/18/16 08:47; Admin Dose 100 MG; Start 07/13/16 at 09:00 Ciprofloxacin HCl (Ciloxan 0.3% Oph) 1 drop TID RIGHT EYE Last administered on 07/17/16 20:35; Admin Dose 1 DROP; Start 07/13/16 at 21:00 Sodium Bicarbonate (Sodium Bicarbonate Tab) 650 mg TID PO Last administered on 07/18/16 08:46; Admin Dose 650 MG; Start 07/14/16 at 10:00 Epoetin Mauricio (Epogen (Esrd)) 10,000 units MoWeFr@17 SC Last administered on 17:23; Admin Dose 10,000 UNITS; Start 07/14/16 at 17:00 Ferrous Sulfate (Ferrous Sulfate (Ec)) 325 mg BID PO Last administered on 08:47; Admin Dose 325 MG; Start 07/14/16 at 21:00 Hydromorphone HCl (Dilaudid) 0.5 mg Q4 PRN IV BREAKTHROUGH PAIN Last administered on 07/18/16 05:51; Admin Dose 0.5 MG; Start 07/14/16 at 17:00 Pantoprazole (Protonix Tab) 40 mg DAILY@06 PO Last administered on 07/18/16 05 :50; Admin Dose 40 MG; Start 07/15/16 at 06:00 Simethicone (Mylicon) 80 mg Q6H PRN GTB DISTENSION/GAS/BLOATING Last administered on 07/15/16 11:24; Admin Dose 80 MG; Start 07/15/16 at 10:30 Docusate Sodium (Colace) 250 mg DAILY PO Last administered on 07/17/16 09:20; Admin Dose 250 MG; Start 07/15/16 at 11:30 Polyethylene Glycol (Miralax) 17 gm DAILY PO Last administered on 07/15/16 13: 58; Admin Dose 17 GM; Start 07/15/16 at 11:30 Tamsulosin HCl (Flomax) 0.4 mg HS PO Last administered on 07/17/16 20:30; Admin Dose 0.4 MG; Start 07/15/16 at 21:00 Rifampin (Rifampin) 600 mg DAILY PO Last administered on 07/18/16 08:47; Admin Dose 600 MG; Start 07/15/16 at 14:00 Hydralazine HCl (Apresoline) 50 mg TID PO Last administered on 07/18/16 08:48 ; Admin Dose 50 MG; Start 07/15/16 at 21:00 Heparin Sodium (Porcine) (Heparin (5000 Units/0.5 ml)) 5,000 unit BID SC Last administered on 07/18/16 08:45; Admin Dose 5,000 UNIT; Start 07/16/16 at 21:00 Oxycodone/ Acetaminophen 1 tab 1 tab Q4H PRN PO BREAKTHROUGH PAIN Last administered on 07/17/16 19:03; Admin Dose 1 TAB; Start 07/16/16 at 22:00 Vancomycin HCl (Vancocin) 100 ml @ 100 mls/hr Q36H IVPB ; Start 07/18/16 at 17: 00 Miscellaneous Information (*Rx Drug Level Order Reminder*) 1 ONCE ONCE XX ; Start 07/18/16 at 16:00; Stop 07/18/16 at 16:01 Bumetanide (Bumex) 2 mg BID PO ; Start 07/18/16 at 21:00; Status UNJACOB BRIDGES MD Jul 18, 2016 09:43
[2016-07-18] MEDS: ONDANSETRON 4 MG INJ IV PRN ×2 (10:57→18:17)
[2016-07-18 13:08] VITALS: BP 151/77; PULSE 67
[2016-07-18] MEDS ORDERED: VANCOMYCIN 500MG/NS (PMX) 100 ML IVPB SCH (17:00)
[2016-07-18 19:59] VITALS: BP 161/84; RESP 18
[2016-07-18] MEDS: TAMSULOSIN (SR) 0.4 MG CAP PO SCH (20:50)
--- NOTE | 2016-07-18 20:50 | PN ---
Date/Time of Note Date/Time of Note DATE: 07/18/16 TIME: 20:49 Assessment/Plan VTE Prophylaxis VTE Prophylaxis Intervention: SCD's Lines/Catheters IV Catheter Type (from [facility]): PICC Line Central line still needed: Yes Urinary Cath still in place: Yes Reason Cath still needed: other (indicate) Assessment/Plan Assessment/Plan 56-year-old male transferred from outside hospital managed as follows 1. Sepsis 2/2 Spinal abscess / UTI: resolved 2. Lumbar epidural abscess : MRSA * s/p evacuation 3. Chronic kidney disease r/o ARF 2/2 diuretic therapy Patient's baseline Cr seems to be about 2.5 4. ? Diabetes type 2 - A1c = 6.4 5. Hypertension: [id number]. Anemia 2/2 CKD Has received 4 units so far 7. 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 Deep venous thrombosis prophylaxis; SCDs. Subjective 24 Hr Interval Summary Constitutional: no complaints Cardiovascular: no complaints Gastrointestinal: no complaints Exam/Review of Systems Vital Signs Vitals Vital Signs Date Time Temp Pulse Resp B/P Pulse Ox O2 Delivery O2 Flow Rate FiO2 07/18/16 19:59 98.4 66 18 161/84 94 07/18/16 01:00 Room Air 07/17/16 17:47 21 Intake and Output 07/17/16 07/17/16 07/18/16 15:00 23:00 07:00 Intake Total 900 ml 240 ml Output Total 200 ml 200 ml Balance 700 ml 40 ml Exam Constitutional: alert, oriented Head: normocephalic Neck: supple Respiratory: clear to auscultation Cardiovascular: regular rate and rhythm Gastrointestinal: soft Extremities: pitting pedal edema Results Result Diagram: 07/18/16 0443 07/18/16442 Results 24 hrs Laboratory Tests Test 07/17/16 21:43 07/18/16 04:43 07/18/16 07:55 07/18/16 12:04 Bedside Glucose 110 104 159 Anion Gap 15 Basophils # 0.0 Basophils % 0.6 Blood Urea Nitrogen 48 H Calcium Level 8.0 L Carbon Dioxide Level 26 Chloride Level 101 Creatinine 2.72 H Eosinophils # 0.2 Eosinophils % 5.4 Glucose Level 106 Hematocrit 29.5 L Hemoglobin 10.1 L Lymphocytes # 1.0 Lymphocytes % 29.8 Mean Corpuscular Hemoglobin 28.9 L Mean Corpuscular Hemoglobin Concent 34.2 Mean Corpuscular Volume 84.3 Mean Platelet Volume 9.8 Monocytes # 0.4 Monocytes % 10.4 Neutrophils # 1.8 Neutrophils % 53.5 Nucleated Red Blood Cells # 0.0 Nucleated Red Blood Cells % 0.0 Platelet Count 215 # Potassium Level 4.4 Red Blood Count 3.50 L Red Cell Distribution Width 16.7 H Sodium Level 138 White Blood Count 3.4 L Test 07/18/16 16:10 07/18/16 16:29 Vancomycin Level Trough 17.5 Bedside Glucose 127 Medications Medications Current Medications Ondansetron HCl (Zofran Inj) 4 mg Q6H PRN IV NAUSEA AND/OR VOMITING Last administered on 07/18/16 18:17; Admin Dose 4 MG; Start 07/10/16 at 17:30 Lorazepam (Ativan) 0.5 mg Q6H PRN IV ANXIETY; Start 07/10/16 at 17:30 Hydralazine HCl (Apresoline) 10 mg Q6H PRN IV ELEVATED BLOOD PRESSURE Last administered on 07/15/16 14:20; Admin Dose 10 MG; Start 07/10/16 at 17:30 Clonidine (Catapres) 0.1 mg Q6H PRN PO ELEVATED BLOOD PRESSURE Last administered on 07/14/16 13:07; Admin Dose 0.1 MG; Start 07/10/16 at 17:30 Nitroglycerin (Nitroglycerin (Sl Tab) 0.4 Mg) 1 tab Q5M PRN SL ANGINA; Start at 17:30 Carvedilol (Coreg) 6.25 mg BID PO Last administered on 07/18/16 08:47; Admin Dose 6.25 MG; Start 07/10/16 at 21:00 Lactobacillus Acidoph/Bulgaricus (Floranex) 1 tab TID PO Last administered on 13:05; Admin Dose 1 TAB; Start 07/10/16 at 21:00 Miscellaneous Information 1 ea NOTE XX ; Start 07/10/16 at 17:30 Glucose (Glutose) 15 gm Q15M PRN PO DECREASED GLUCOSE; Start 07/10/16 at 17:30 Glucose (Glutose) 22.5 gm Q15M PRN PO DECREASED GLUCOSE; Start 07/10/16 at 17: 30 Dextrose (D50w Syringe) 25 ml Q15M PRN IV DECREASED GLUCOSE Last administered on 07/12/16 07:54; Admin Dose 25 ML; Start 07/10/16 at 17:30 Dextrose (D50w Syringe) 50 ml Q15M PRN IV DECREASED GLUCOSE Last administered on 07/11/16 05:05; Admin Dose 50 ML; Start 07/10/16 at 17:30 Glucagon (Glucagen) 1 mg Q15M PRN IM DECREASED GLUCOSE; Start 07/10/16 at 17:30 Glucose (Glutose) 15 gm Q15M PRN BUCCAL DECREASED GLUCOSE; Start 07/10/16 at 17 :30 Finasteride (Proscar) 5 mg DAILY PO Last administered on 07/18/16 08:46; Admin Dose 5 MG; Start 07/13/16 at 09:00 Naloxone HCl (Narcan) 0.2 mg Q2M PRN IV RR 8 BREATHS/MIN OR LESS; Start at 17:00 Fluconazole (Diflucan) 100 mg DAILY PO Last administered on 07/18/16 08:47; Admin Dose 100 MG; Start 07/13/16 at 09:00 Ciprofloxacin HCl (Ciloxan 0.3% Oph) 1 drop TID RIGHT EYE Last administered on 07/18/16 13:06; Admin Dose 1 DROP; Start 07/13/16 at 21:00 Sodium Bicarbonate (Sodium Bicarbonate Tab) 650 mg TID PO Last administered on 07/18/16 13:05; Admin Dose 650 MG; Start 07/14/16 at 10:00 Epoetin Mauricio (Epogen (Esrd)) 10,000 units MoWeFr@17 SC Last administered on 17:23; Admin Dose 10,000 UNITS; Start 07/14/16 at 17:00 Ferrous Sulfate (Ferrous Sulfate (Ec)) 325 mg BID PO Last administered on 08:47; Admin Dose 325 MG; Start 07/14/16 at 21:00 Hydromorphone HCl (Dilaudid) 0.5 mg Q4 PRN IV BREAKTHROUGH PAIN Last administered on 07/18/16 18:16; Admin Dose 0.5 MG; Start 07/14/16 at 17:00 Pantoprazole (Protonix Tab) 40 mg DAILY@06 PO Last administered on 07/18/16 05 :50; Admin Dose 40 MG; Start 07/15/16 at 06:00 Simethicone (Mylicon) 80 mg Q6H PRN GTB DISTENSION/GAS/BLOATING Last administered on 07/15/16 11:24; Admin Dose 80 MG; Start 07/15/16 at 10:30 Docusate Sodium (Colace) 250 mg DAILY PO Last administered on 07/17/16 09:20; Admin Dose 250 MG; Start 07/15/16 at 11:30 Polyethylene Glycol (Miralax) 17 gm DAILY PO Last administered on 07/15/16 13: 58; Admin Dose 17 GM; Start 07/15/16 at 11:30 Tamsulosin HCl (Flomax) 0.4 mg HS PO Last administered on 07/17/16 20:30; Admin Dose 0.4 MG; Start 07/15/16 at 21:00 Rifampin (Rifampin) 600 mg DAILY PO Last administered on 07/18/16 08:47; Admin Dose 600 MG; Start 07/15/16 at 14:00 Hydralazine HCl (Apresoline) 50 mg TID PO Last administered on 07/18/16 13:07 ; Admin Dose 50 MG; Start 07/15/16 at 21:00 Heparin Sodium (Porcine) (Heparin (5000 Units/0.5 ml)) 5,000 unit BID SC Last administered on 07/18/16 08:45; Admin Dose 5,000 UNIT; Start 07/16/16 at 21:00 Oxycodone/ Acetaminophen (Percocet (5/ 325)) 1 tab Q4H PRN PO BREAKTHROUGH PAIN Last administered on 07/17/16 19:03; Admin Dose 1 TAB; Start 07/16/16 at 22:00 Amlodipine Besylate (Norvasc) 5 mg DAILY PO ; Start 07/19/16 at 09:00 Hydralazine HCl 25 mg 25 mg TID PO Last administered on 07/18/16 13:07; Admin Dose 25 MG; Start 2/24/17 at 13:00 Vancomycin HCl (Vancocin) 100 ml @ 100 mls/hr Q48H IVPB ; Start 07/20/16 at 17: 00 RAMON PUENTES Jul 18, 2016 20:50
[2016-07-18] MEDS: EPOETIN 10000 UNITS/1 ML INJ (ESRD) SC SCH (20:56)
--- NOTE | 2016-07-18 22:17 | CONS ---
Date/Time of Note Date/Time of Note DATE: 07/18/16 TIME: 22:15 Assessment/Plan Assessment/Plan Chief Complaint/Hosp Course SUBJECTIVE: No events overnight. The patient is alert, looks comfortable. MICROBIOLOGY: Urine culture grew Enterobacter aerogenes and Katharina glabrata on admission. Lumbar culture growing MRSA, susceptible to vancomycin, clindamycin, rifampin, Bactrim. Anaerobic cultures had been negative. Indwelling: PICC Cox ANTIMICROBIALS: Rifampin IV vancomycin. PHYSICAL EXAMINATION: GENERAL: Well-developed, middle-aged man who is alert, in no distress. HEENT: Head atraumatic, normocephalic. Sclerae anicteric. Buccal mucosa dry. NECK: Supple. CHEST: Rise symmetrical. Breath sounds diminished to bases. HEART: S1, S2. ABDOMEN: Soft, bowel sounds present. EXTREMITIES: Without cyanosis. ASSESSMENT: 1. Lumbar diskitis, osteomyelitis, Methicillin-resistant Staphylococcus aureus psoas abscess, status post decompressive laminectomy with evacuation of abscess on 07/12/2016. 2. Chronic kidney disease. 3. Status post urinary tract infection. 4. Diabetes. 5. Hypertension. 6. Urinary retention==> s/p Cox PLAN: Remains stable, continue abx for 6 weeks, may change Vanco to Daptomycin if renal f-n deteriorates, f/u ortho/renal rec-s Problems: Consultation Date/Type/Reason Admit Date/Time Jul 10, 2016 at 15:03 Type of Consultation: id Exam/Review of Systems Vital Signs Vitals Vital Signs Date Time Temp Pulse Resp B/P Pulse Ox O2 Delivery O2 Flow Rate FiO2 07/18/16 19:59 98.4 66 18 161/84 94 07/18/16 01:00 Room Air 07/17/16 17:47 21 Intake and Output 07/17/16 07/17/16 07/18/16 15:00 23:00 07:00 Intake Total 900 ml 240 ml Output Total 200 ml 200 ml Balance 700 ml 40 ml Results Result Diagram: 07/18/16 0443 07/18/16 0443 Results 24 hrs Laboratory Tests Test 07/18/16 04:43 07/18/16 07:55 07/18/16 12:04 07/18/16 16:10 Anion Gap 15 Basophils # 0.0 Basophils % 0.6 Blood Urea Nitrogen 48 H Calcium Level 8.0 L Carbon Dioxide Level 26 Chloride Level 101 Creatinine 2.72 H Eosinophils # 0.2 Eosinophils % 5.4 Glucose Level 106 Hematocrit 29.5 L Hemoglobin 10.1 L Lymphocytes # 1.0 Lymphocytes % 29.8 Mean Corpuscular Hemoglobin 28.9 L Mean Corpuscular Hemoglobin Concent 34.2 Mean Corpuscular Volume 84.3 Mean Platelet Volume 9.8 Monocytes # 0.4 Monocytes % 10.4 Neutrophils # 1.8 Neutrophils % 53.5 Nucleated Red Blood Cells # 0.0 Nucleated Red Blood Cells % 0.0 Platelet Count 215 # Potassium Level 4.4 Red Blood Count 3.50 L Red Cell Distribution Width 16.7 H Sodium Level 138 White Blood Count 3.4 L Bedside Glucose 104 159 Vancomycin Level Trough 17.5 Test 07/18/16 16:29 07/18/16 20:58 Bedside Glucose 127 162 Medications Medications Current Medications Ondansetron HCl (Zofran Inj) 4 mg Q6H PRN IV NAUSEA AND/OR VOMITING Last administered on 07/18/16 18:17; Admin Dose 4 MG; Start 07/10/16 at 17:30 Lorazepam (Ativan) 0.5 mg Q6H PRN IV ANXIETY; Start 07/10/16 at 17:30 Hydralazine HCl (Apresoline) 10 mg Q6H PRN IV ELEVATED BLOOD PRESSURE Last administered on 07/15/16 14:20; Admin Dose 10 MG; Start 07/10/16 at 17:30 Clonidine (Catapres) 0.1 mg Q6H PRN PO ELEVATED BLOOD PRESSURE Last administered on 07/14/16 13:07; Admin Dose 0.1 MG; Start 07/10/16 at 17:30 Nitroglycerin (Nitroglycerin (Sl Tab) 0.4 Mg) 1 tab Q5M PRN SL ANGINA; Start at 17:30 Carvedilol (Coreg) 6.25 mg BID PO Last administered on 07/18/16 20:51; Admin Dose 6.25 MG; Start 07/10/16 at 21:00 Lactobacillus Acidoph/Bulgaricus (Floranex) 1 tab TID PO Last administered on 20:54; Admin Dose 1 TAB; Start 07/10/16 at 21:00 Miscellaneous Information 1 ea NOTE XX ; Start 07/10/16 at 17:30 Glucose (Glutose) 15 gm Q15M PRN PO DECREASED GLUCOSE; Start 07/10/16 at 17:30 Glucose (Glutose) 22.5 gm Q15M PRN PO DECREASED GLUCOSE; Start 07/10/16 at 17: 30 Dextrose (D50w Syringe) 25 ml Q15M PRN IV DECREASED GLUCOSE Last administered on 07/12/16 07:54; Admin Dose 25 ML; Start 07/10/16 at 17:30 Dextrose (D50w Syringe) 50 ml Q15M PRN IV DECREASED GLUCOSE Last administered on 07/11/16 05:05; Admin Dose 50 ML; Start 07/10/16 at 17:30 Glucagon (Glucagen) 1 mg Q15M PRN IM DECREASED GLUCOSE; Start 07/10/16 at 17:30 Glucose (Glutose) 15 gm Q15M PRN BUCCAL DECREASED GLUCOSE; Start 07/10/16 at 17 :30 Finasteride (Proscar) 5 mg DAILY PO Last administered on 07/18/16 08:46; Admin Dose 5 MG; Start 07/13/16 at 09:00 Naloxone HCl (Narcan) 0.2 mg Q2M PRN IV RR 8 BREATHS/MIN OR LESS; Start at 17:00 Fluconazole (Diflucan) 100 mg DAILY PO Last administered on 07/18/16 08:47; Admin Dose 100 MG; Start 07/13/16 at 09:00 Ciprofloxacin HCl (Ciloxan 0.3% Oph) 1 drop TID RIGHT EYE Last administered on 07/18/16 20:54; Admin Dose 1 DROP; Start 07/13/16 at 21:00 Sodium Bicarbonate (Sodium Bicarbonate Tab) 650 mg TID PO Last administered on 07/18/16 21:05; Admin Dose 650 MG; Start 07/14/16 at 10:00 Epoetin Mauricio (Epogen (Esrd)) 10,000 units MoWeFr@17 SC Last administered on 20:56; Admin Dose 10,000 UNITS; Start 07/14/16 at 17:00 Ferrous Sulfate (Ferrous Sulfate (Ec)) 325 mg BID PO Last administered on 20:49; Admin Dose 325 MG; Start 07/14/16 at 21:00 Hydromorphone HCl (Dilaudid) 0.5 mg Q4 PRN IV BREAKTHROUGH PAIN Last administered on 07/18/16 18:16; Admin Dose 0.5 MG; Start 07/14/16 at 17:00 Pantoprazole (Protonix Tab) 40 mg DAILY@06 PO Last administered on 07/18/16 05 :50; Admin Dose 40 MG; Start 07/15/16 at 06:00 Simethicone (Mylicon) 80 mg Q6H PRN GTB DISTENSION/GAS/BLOATING Last administered on 07/15/16 11:24; Admin Dose 80 MG; Start 07/15/16 at 10:30 Docusate Sodium (Colace) 250 mg DAILY PO Last administered on 07/17/16 09:20; Admin Dose 250 MG; Start 07/15/16 at 11:30 Polyethylene Glycol (Miralax) 17 gm DAILY PO Last administered on 07/15/16 13: 58; Admin Dose 17 GM; Start 07/15/16 at 11:30 Tamsulosin HCl (Flomax) 0.4 mg HS PO Last administered on 07/18/16 20:50; Admin Dose 0.4 MG; Start 07/15/16 at 21:00 Rifampin (Rifampin) 600 mg DAILY PO Last administered on 07/18/16 08:47; Admin Dose 600 MG; Start 07/15/16 at 14:00 Hydralazine HCl (Apresoline) 50 mg TID PO Last administered on 07/18/16 20:49 ; Admin Dose 50 MG; Start 07/15/16 at 21:00 Heparin Sodium (Porcine) (Heparin (5000 Units/0.5 ml)) 5,000 unit BID SC Last administered on 07/18/16 20:53; Admin Dose 5,000 UNIT; Start 07/16/16 at 21:00 Oxycodone/ Acetaminophen (Percocet (5/ 325)) 1 tab Q4H PRN PO BREAKTHROUGH PAIN Last administered on 07/17/16 19:03; Admin Dose 1 TAB; Start 07/16/16 at 22:00 Amlodipine Besylate (Norvasc) 5 mg DAILY PO ; Start 07/19/16 at 09:00 Hydralazine HCl 25 mg 25 mg TID PO Last administered on 07/18/16 20:50; Admin Dose 25 MG; Start 07/18/16 at 13:00 Vancomycin HCl (Vancocin) 100 ml @ 100 mls/hr Q48H IVPB ; Start 07/20/16 at 17: 00 DORENE GARCIA NP Jul 18, 2016 22:17
[2016-07-19] MEDS: HYDROmorphONE 1 MG/ML SYG IV PRN ×6 (02:28→22:16)
[2016-07-19] MEDS: ONDANSETRON 4 MG INJ IV PRN (05:21)
[2016-07-19] MEDS: PANTOPRAZOLE (EC) 40 MG TAB PO SCH (05:21)
[2016-07-19] MEDS: BUMETANIDE 1 MG TAB PO SCH ×2 (05:21→18:57)
[2016-07-19 05:38] LABS: ALBUMIN 2.6 g/dl (3.3-4.9)
[2016-07-19 05:39] LABS: POTASSIUM 4.2 mmol/L (3.5-5.1)
[2016-07-19 05:41] LABS: ALBUMIN/GLOBULIN RATIO 0.7; BILIRUBIN,INDIRECT 0.6 mg/dl (0-1.1); BILIRUBIN,TOTAL 0.6 mg/dl (0.2-1.3); CREATININE 2.74 mg/dl (0.61-1.24); TOTAL PROTEIN 6.3 g/dl (6.1-8.1)
[2016-07-19 05:42] LABS: CALCIUM 7.7 mg/dl (8.4-10.2)
[2016-07-19 07:18] VITALS: BP 151/74; RESP 18
[2016-07-19] MEDS: INSULIN ASPART [NOVOLOG] 3 ML PEN SC SCH ×4 (07:30→22:00)
--- NOTE | 2016-07-19 08:36 | CONS ---
Date/Time of Note Date/Time of Note DATE: 07/19/16 TIME: 08:33 Assessment/Plan Assessment/Plan Problems: (1) Diskitis Comment: improving on the abx (2) CKD (chronic kidney disease) stage 3, GFR 30-59 ml/min Comment: stable.. [place] diuresis (3) Edema Comment: due to NS... being diuresed Consultation Date/Type/Reason Admit Date/Time Jul 10, 2016 at 15:03 Initial Consult Date Type of Consultation: neph 24 HR Interval Summary Free Text/Dictation feels OK... maybe less LBP..no fevers or chills Exam/Review of Systems Vital Signs Vitals Vital Signs Date Time Temp Pulse Resp B/P Pulse Ox O2 Delivery O2 Flow Rate FiO2 07/19/16 07:18 98.3 60 18 151/74 95 07/18/16 01:00 Room Air 07/17/16 17:47 21 Intake and Output 07/18/16 07/18/16 07/19/16 15:00 23:00 07:00 Intake Total 850 ml 700 ml Output Total 1300 ml 1900 ml Balance -450 ml -1200 ml Exam Constitutional: alert Psych: no complaints Neck: supple Respiratory: clear to auscultation Cardiovascular: regular rate and rhythm Extremities: edema (1-2+ bilat) Results Result Diagram: 07/18/16 0443 07/19/16 0446 Results 24 hrs Laboratory Tests Test 07/18/16 12:04 07/18/16 16:10 07/18/16 16:29 07/18/16 20:58 Bedside Glucose 159 127 162 Vancomycin Level Trough 17.5 Test 07/19/16 02:34 07/19/16 04:46 07/19/16 07:47 Bedside Glucose 107 121 Alanine Aminotransferase (ALT/SGPT) 24 Albumin 2.6 L Albumin/Globulin Ratio 0.70 Alkaline Phosphatase 97 Anion Gap 14 Aspartate Amino Transf (AST/SGOT) 15 Blood Urea Nitrogen 54 H Calcium Level 7.7 L Carbon Dioxide Level 30 Chloride Level 97 Creatinine 2.74 H Direct Bilirubin 0.00 Globulin 3.70 H Glucose Level 93 Indirect Bilirubin 0.6 Potassium Level 4.2 Sodium Level 137 Total Bilirubin 0.6 Total Protein 6.3 Medications Medications Current Medications Ondansetron HCl (Zofran Inj) 4 mg Q6H PRN IV NAUSEA AND/OR VOMITING Last administered on 07/19/16 05:21; Admin Dose 4 MG; Start 07/10/16 at 17:30 Lorazepam (Ativan) 0.5 mg Q6H PRN IV ANXIETY; Start 07/10/16 at 17:30 Hydralazine HCl (Apresoline) 10 mg Q6H PRN IV ELEVATED BLOOD PRESSURE Last administered on 07/15/16 14:20; Admin Dose 10 MG; Start 07/10/16 at 17:30 Clonidine (Catapres) 0.1 mg Q6H PRN PO ELEVATED BLOOD PRESSURE Last administered on 07/14/16 13:07; Admin Dose 0.1 MG; Start 07/10/16 at 17:30 Nitroglycerin (Nitroglycerin (Sl Tab) 0.4 Mg) 1 tab Q5M PRN SL ANGINA; Start at 17:30 Carvedilol (Coreg) 6.25 mg BID PO Last administered on 07/18/16 20:51; Admin Dose 6.25 MG; Start 07/10/16 at 21:00 Lactobacillus Acidoph/Bulgaricus (Floranex) 1 tab TID PO Last administered on 20:54; Admin Dose 1 TAB; Start 07/10/16 at 21:00 Miscellaneous Information 1 ea NOTE XX ; Start 07/10/16 at 17:30 Glucose (Glutose) 15 gm Q15M PRN PO DECREASED GLUCOSE; Start 07/10/16 at 17:30 Glucose (Glutose) 22.5 gm Q15M PRN PO DECREASED GLUCOSE; Start 07/10/16 at 17: 30 Dextrose (D50w Syringe) 25 ml Q15M PRN IV DECREASED GLUCOSE Last administered on 07/12/16 07:54; Admin Dose 25 ML; Start 07/10/16 at 17:30 Dextrose (D50w Syringe) 50 ml Q15M PRN IV DECREASED GLUCOSE Last administered on 07/11/16 05:05; Admin Dose 50 ML; Start 07/10/16 at 17:30 Glucagon (Glucagen) 1 mg Q15M PRN IM DECREASED GLUCOSE; Start 07/10/16 at 17:30 Glucose (Glutose) 15 gm Q15M PRN BUCCAL DECREASED GLUCOSE; Start 07/10/16 at 17 :30 Finasteride (Proscar) 5 mg DAILY PO Last administered on 07/18/16 08:46; Admin Dose 5 MG; Start 07/13/16 at 09:00 Naloxone HCl (Narcan) 0.2 mg Q2M PRN IV RR 8 BREATHS/MIN OR LESS; Start at 17:00 Fluconazole (Diflucan) 100 mg DAILY PO Last administered on 07/18/16 08:47; Admin Dose 100 MG; Start 07/13/16 at 09:00 Ciprofloxacin HCl (Ciloxan 0.3% Oph) 1 drop TID RIGHT EYE Last administered on 07/18/16 20:54; Admin Dose 1 DROP; Start 07/13/16 at 21:00 Sodium Bicarbonate (Sodium Bicarbonate Tab) 650 mg TID PO Last administered on 07/18/16 21:05; Admin Dose 650 MG; Start 07/14/16 at 10:00 Epoetin Mauricio (Epogen (Esrd)) 10,000 units MoWeFr@17 SC Last administered on 20:56; Admin Dose 10,000 UNITS; Start 07/14/16 at 17:00 Ferrous Sulfate (Ferrous Sulfate (Ec)) 325 mg BID PO Last administered on 20:49; Admin Dose 325 MG; Start 07/14/16 at 21:00 Hydromorphone HCl (Dilaudid) 0.5 mg Q4 PRN IV BREAKTHROUGH PAIN Last administered on 07/19/16 07:00; Admin Dose 0.5 MG; Start 07/14/16 at 17:00 Pantoprazole (Protonix Tab) 40 mg DAILY@06 PO Last administered on 07/19/16 05 :21; Admin Dose 40 MG; Start 07/15/16 at 06:00 Simethicone (Mylicon) 80 mg Q6H PRN GTB DISTENSION/GAS/BLOATING Last administered on 07/15/16 11:24; Admin Dose 80 MG; Start 07/15/16 at 10:30 Docusate Sodium (Colace) 250 mg DAILY PO Last administered on 07/17/16 09:20; Admin Dose 250 MG; Start 07/15/16 at 11:30 Polyethylene Glycol (Miralax) 17 gm DAILY PO Last administered on 07/15/16 13: 58; Admin Dose 17 GM; Start 07/15/16 at 11:30 Tamsulosin HCl (Flomax) 0.4 mg HS PO Last administered on 07/18/16 20:50; Admin Dose 0.4 MG; Start 07/15/16 at 21:00 Rifampin (Rifampin) 600 mg DAILY PO Last administered on 07/18/16 08:47; Admin Dose 600 MG; Start 07/15/16 at 14:00 Hydralazine HCl (Apresoline) 50 mg TID PO Last administered on 07/18/16 20:49 ; Admin Dose 50 MG; Start 07/15/16 at 21:00 Heparin Sodium (Porcine) (Heparin (5000 Units/0.5 ml)) 5,000 unit BID SC Last administered on 07/18/16 20:53; Admin Dose 5,000 UNIT; Start 07/16/16 at 21:00 Oxycodone/ Acetaminophen (Percocet (5/ 325)) 1 tab Q4H PRN PO BREAKTHROUGH PAIN Last administered on 07/17/16 19:03; Admin Dose 1 TAB; Start 07/16/16 at 22:00 Amlodipine Besylate (Norvasc) 5 mg DAILY PO ; Start 07/19/16 at 09:00 Hydralazine HCl 25 mg 25 mg TID PO Last administered on 07/18/16 20:50; Admin Dose 25 MG; Start 07/18/16 at 13:00 Vancomycin HCl (Vancocin) 100 ml @ 100 mls/hr Q48H IVPB ; Start 07/20/16 at 17: 00 LIDYA GALLEGOS MD Jul 19, 2016 08:36
[2016-07-19] MEDS: CIPROFLOXACIN 0.3% 2.5 ML OPH RIGHT EYE SCH ×3 (09:03→21:45)
[2016-07-19] MEDS: FERROUS SULFATE (EC) 325 MG TAB PO SCH ×2 (09:04→21:44)
[2016-07-19] MEDS: RIFAMPIN 300 MG CAP PO SCH (09:04)
[2016-07-19] MEDS: DOCUSATE SODIUM 250 MG CAP PO SCH (09:04)
[2016-07-19] MEDS: POLYETHYLENE GLYCOL 17 GM PACKET PO SCH (09:05)
[2016-07-19] MEDS: LACTOBACILLUS CHEW TAB PO SCH ×3 (09:05→21:41)
[2016-07-19] MEDS: AMLODIPINE 5 MG TAB PO SCH (09:08)
[2016-07-19] MEDS: HEPARIN 5,000 UNIT/0.5 ML SYG SC SCH ×2 (09:13→22:00)
[2016-07-19] MEDS: FINASTERIDE 5 MG TAB PO SCH (09:26)
[2016-07-19] MEDS: FLUCONAZOLE 100 MG TAB PO SCH (09:26)
[2016-07-19] MEDS: NA BICARBONATE 650 MG TAB PO SCH ×3 (10:52→21:44)
[2016-07-19] MEDS: NEOMYC/POLYMYX/HC 10 ML OTIC SUSP LEFT EAR SCH ×3 (12:38→21:45)
[2016-07-19] MEDS: OXYCODONE/ACETAMINOPHEN (5/325) TAB PO PRN (12:44)
--- NOTE | 2016-07-19 14:29 | CONS ---
Date/Time of Note Date/Time of Note DATE: 07/19/16 TIME: 14:28 Assessment/Plan Assessment/Plan Chief Complaint/Hosp Course ID PROGRESS NOTE CURRENT ABX=> Vanco IV #9 + Rifampin 24H INTERVAL SUMMARY * Resting, no new issues, no c/o * Afebrile, VSS, NAD PHYSICAL EXAMINATION: GENERAL: VSS, NAD HEENT: Unremarkable -- NECK: Supple, trachea midline. CHEST: Rise symmetrical, without dyspnea on observation HEART: Pulse RRR ABDOMEN: Soft, benign EXTREMITIES: Warm ID ASSESSMENT 56 yo M admit with: 1. Lumbar diskitis, osteomyelitis, w/(+)MRSA psoas abscess=> s/p decompressive laminectomy with evacuation of abscess on 07/12/2016. * Lumbar culture growing MRSA, susceptible to vancomycin, clindamycin, rifampin , Bactrim. Anaerobic cultures had been negative. 2. Chronic kidney disease. 3. Status post urinary tract infection. * Urine culture grew Enterobacter aerogenes and Katharina glabrata on admission. 4. Diabetes. 5. Hypertension. 6. Urinary retention=> s/p Cox ( )MRSA Nares => Will order tonight INVASIVES: PICC, FC ABX ALLERGY: KNDA CURRENT ABX: => Vanco IV #9 + Rifampin ID RECOMMENDATIONS 1. Continue current ABX 2. Screen nares for MRSA colonization and add Bactroban to nares if (+) 3. Remains stable, continue abx for 8 weeks, may change Vanco IV to Daptomycin if renal f-n deteriorates, f/u ortho/renal rec-s . Problems: Consultation Date/Type/Reason Admit Date/Time Jul 10, 2016 at 15:03 Initial Consult Date Type of Consultation: ID Exam/Review of Systems Vital Signs Vitals Vital Signs Date Time Temp Pulse Resp B/P Pulse Ox O2 Delivery O2 Flow Rate FiO2 07/19/16 07:18 98.3 60 18 151/74 95 07/18/16 01:00 Room Air 07/17/16 17:47 21 Intake and Output 07/18/16 07/18/16 07/19/16 15:00 23:00 07:00 Intake Total 850 ml 700 ml Output Total 1300 ml 1900 ml Balance -450 ml -1200 ml Results Result Diagram: 07/18/16 0443 07/19/16 0446 Results 24 hrs Laboratory Tests Test 07/18/16 16:10 07/18/16 16:29 07/18/16 20:58 07/19/16 02:34 Vancomycin Level Trough 17.5 Bedside Glucose 127 162 107 Test 07/19/16 04:46 07/19/16 07:47 07/19/16 11:56 Alanine Aminotransferase (ALT/SGPT) 24 Albumin 2.6 L Albumin/Globulin Ratio 0.70 Alkaline Phosphatase 97 Anion Gap 14 Aspartate Amino Transf (AST/SGOT) 15 Blood Urea Nitrogen 54 H Calcium Level 7.7 L Carbon Dioxide Level 30 Chloride Level 97 Creatinine 2.74 H Direct Bilirubin 0.00 Globulin 3.70 H Glucose Level 93 Indirect Bilirubin 0.6 Potassium Level 4.2 Sodium Level 137 Total Bilirubin 0.6 Total Protein 6.3 Bedside Glucose 121 113 Medications Medications Current Medications Ondansetron HCl (Zofran Inj) 4 mg Q6H PRN IV NAUSEA AND/OR VOMITING Last administered on 07/19/16 05:21; Admin Dose 4 MG; Start 07/10/16 at 17:30 Lorazepam (Ativan) 0.5 mg Q6H PRN IV ANXIETY; Start 07/10/16 at 17:30 Hydralazine HCl (Apresoline) 10 mg Q6H PRN IV ELEVATED BLOOD PRESSURE Last administered on 07/15/16 14:20; Admin Dose 10 MG; Start 07/10/16 at 17:30 Clonidine (Catapres) 0.1 mg Q6H PRN PO ELEVATED BLOOD PRESSURE Last administered on 07/14/16 13:07; Admin Dose 0.1 MG; Start 07/10/16 at 17:30 Nitroglycerin (Nitroglycerin (Sl Tab) 0.4 Mg) 1 tab Q5M PRN SL ANGINA; Start at 17:30 Carvedilol (Coreg) 6.25 mg BID PO Last administered on 07/19/16 09:08; Admin Dose 6.25 MG; Start 07/10/16 at 21:00 Lactobacillus Acidoph/Bulgaricus (Floranex) 1 tab TID PO Last administered on 12:43; Admin Dose 1 TAB; Start 07/10/16 at 21:00 Miscellaneous Information 1 ea NOTE XX ; Start 07/10/16 at 17:30 Glucose (Glutose) 15 gm Q15M PRN PO DECREASED GLUCOSE; Start 07/10/16 at 17:30 Glucose (Glutose) 22.5 gm Q15M PRN PO DECREASED GLUCOSE; Start 07/10/16 at 17: 30 Dextrose (D50w Syringe) 25 ml Q15M PRN IV DECREASED GLUCOSE Last administered on 07/12/16 07:54; Admin Dose 25 ML; Start 07/10/16 at 17:30 Dextrose (D50w Syringe) 50 ml Q15M PRN IV DECREASED GLUCOSE Last administered on 07/11/16 05:05; Admin Dose 50 ML; Start 07/10/16 at 17:30 Glucagon (Glucagen) 1 mg Q15M PRN IM DECREASED GLUCOSE; Start 07/10/16 at 17:30 Glucose (Glutose) 15 gm Q15M PRN BUCCAL DECREASED GLUCOSE; Start 07/10/16 at 17 :30 Finasteride (Proscar) 5 mg DAILY PO Last administered on 07/19/16 09:26; Admin Dose 5 MG; Start 07/13/16 at 09:00 Naloxone HCl (Narcan) 0.2 mg Q2M PRN IV RR 8 BREATHS/MIN OR LESS; Start at 17:00 Fluconazole (Diflucan) 100 mg DAILY PO Last administered on 07/19/16 09:26; Admin Dose 100 MG; Start 07/13/16 at 09:00 Ciprofloxacin HCl (Ciloxan 0.3% Oph) 1 drop TID RIGHT EYE Last administered on 07/19/16 13:15; Admin Dose 1 DROP; Start 07/13/16 at 21:00 Sodium Bicarbonate (Sodium Bicarbonate Tab) 650 mg TID PO Last administered on 07/19/16 12:44; Admin Dose 650 MG; Start 07/14/16 at 10:00 Epoetin Mauricio (Epogen (Esrd)) 10,000 units MoWeFr@17 SC Last administered on 20:56; Admin Dose 10,000 UNITS; Start 07/14/16 at 17:00 Ferrous Sulfate (Ferrous Sulfate (Ec)) 325 mg BID PO Last administered on 09:04; Admin Dose 325 MG; Start 07/14/16 at 21:00 Hydromorphone HCl (Dilaudid) 0.5 mg Q4 PRN IV BREAKTHROUGH PAIN Last administered on 07/19/16 10:52; Admin Dose 0.5 MG; Start 07/14/16 at 17:00 Pantoprazole (Protonix Tab) 40 mg DAILY@06 PO Last administered on 07/19/16 05 :21; Admin Dose 40 MG; Start 07/15/16 at 06:00 Simethicone (Mylicon) 80 mg Q6H PRN GTB DISTENSION/GAS/BLOATING Last administered on 07/15/16 11:24; Admin Dose 80 MG; Start 07/15/16 at 10:30 Docusate Sodium (Colace) 250 mg DAILY PO Last administered on 07/19/16 09:04; Admin Dose 250 MG; Start 07/15/16 at 11:30 Polyethylene Glycol (Miralax) 17 gm DAILY PO Last administered on 07/19/16 09: 05; Admin Dose 17 GM; Start 07/15/16 at 11:30 Tamsulosin HCl (Flomax) 0.4 mg HS PO Last administered on 07/18/16 20:50; Admin Dose 0.4 MG; Start 07/15/16 at 21:00 Rifampin (Rifampin) 600 mg DAILY PO Last administered on 07/19/16 09:04; Admin Dose 600 MG; Start 07/15/16 at 14:00 Hydralazine HCl (Apresoline) 50 mg TID PO Last administered on 07/19/16 12:43 ; Admin Dose 50 MG; Start 07/15/16 at 21:00 Heparin Sodium (Porcine) (Heparin (5000 Units/0.5 ml)) 5,000 unit BID SC Last administered on 07/19/16 09:13; Admin Dose 5,000 UNIT; Start 07/16/16 at 21:00 Oxycodone/ Acetaminophen (Percocet (5/ 325)) 1 tab Q4H PRN PO BREAKTHROUGH PAIN Last administered on 07/19/16 12:44; Admin Dose 1 TAB; Start 07/16/16 at 22:00 Amlodipine Besylate (Norvasc) 5 mg DAILY PO Last administered on 07/19/16 09: 08; Admin Dose 5 MG; Start 07/19/16 at 09:00 Hydralazine HCl 25 mg 25 mg TID PO Last administered on 07/19/16 12:44; Admin Dose 25 MG; Start 07/18/16 at 13:00 Vancomycin HCl (Vancocin) 100 ml @ 100 mls/hr Q48H IVPB ; Start 07/20/16 at 17: 00 Neomycin/ Polymyxin/ Hydrocortisone (Cortisporin Otic Susp) 4 drop TID LEFT EAR Last administered on 07/19/16t 12:38; Admin Dose 4 DROP; Start 07/19/16 at 09: 30 JAMIR SERNA NP Jul 19, 2016 14:29
[2016-07-19 18:00] VITALS: BP 135/65
--- NOTE | 2016-07-19 18:03 | PN ---
Date/Time of Note Date/Time of Note DATE: 07/19/16 TIME: 18:01 Assessment/Plan VTE Prophylaxis VTE Prophylaxis Intervention: heparin Lines/Catheters IV Catheter Type (from [facility]): PICC Line Central line still needed: Yes Urinary Cath still in place: Yes Reason Cath still needed: other (indicate) Assessment/Plan Assessment/Plan 56-year-old male transferred from outside hospital managed as follows 1. Sepsis 2/2 Spinal abscess / UTI: resolved 2. Lumbar epidural abscess : MRSA * s/p evacuation 3. Chronic kidney disease r/o ARF 2/2 diuretic therapy Patient's baseline Cr seems to be about 2.5 4. ? Diabetes type 2 - A1c = 6.4 5. Hypertension: . Anemia 2/2 CKD Has received 4 units so far 7. 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 Deep venous thrombosis prophylaxis; SCDs. Subjective 24 Hr Interval Summary Free Text/Dictation Patient seen and examined. Nursing reports no acute overnight events. Constitutional: no complaints Exam/Review of Systems Vital Signs Vitals Vital Signs Date Time Temp Pulse Resp B/P Pulse Ox O2 Delivery O2 Flow Rate FiO2 07/19/16 07:18 98.3 60 18 151/74 95 07/18/16 01:00 Room Air 07/17/16 17:47 21 Intake and Output 07/18/16 07/18/16 07/19/16 15:00 23:00 07:00 Intake Total 850 ml 700 ml Output Total 1300 ml 1900 ml Balance -450 ml -1200 ml Exam Constitutional: alert, oriented Head: normocephalic Neck: supple Respiratory: clear to auscultation Cardiovascular: regular rate and rhythm Gastrointestinal: soft Extremities: pitting pedal edema Results Result Diagram: 07/18/16 0443 07/19/16 0446 Results 24 hrs Laboratory Tests Test 07/18/16 20:58 07/19/16 02:34 07/19/16 04:46 07/19/16 07:47 Bedside Glucose 162 107 121 Alanine Aminotransferase (ALT/SGPT) 24 Albumin 2.6 L Albumin/Globulin Ratio 0.70 Alkaline Phosphatase 97 Anion Gap 14 Aspartate Amino Transf (AST/SGOT) 15 Blood Urea Nitrogen 54 H Calcium Level 7.7 L Carbon Dioxide Level 30 Chloride Level 97 Creatinine 2.74 H Direct Bilirubin 0.00 Globulin 3.70 H Glucose Level 93 Indirect Bilirubin 0.6 Potassium Level 4.2 Sodium Level 137 Total Bilirubin 0.6 Total Protein 6.3 Test 07/19/16 11:56 07/19/16 17:36 Bedside Glucose 113 111 Medications Medications Current Medications Ondansetron HCl (Zofran Inj) 4 mg Q6H PRN IV NAUSEA AND/OR VOMITING Last administered on 07/19/16 05:21; Admin Dose 4 MG; Start 07/10/16 at 17:30 Lorazepam (Ativan) 0.5 mg Q6H PRN IV ANXIETY; Start 07/10/16 at 17:30 Hydralazine HCl (Apresoline) 10 mg Q6H PRN IV ELEVATED BLOOD PRESSURE Last administered on 07/15/16 14:20; Admin Dose 10 MG; Start 07/10/16 at 17:30 Clonidine (Catapres) 0.1 mg Q6H PRN PO ELEVATED BLOOD PRESSURE Last administered on 07/14/16 13:07; Admin Dose 0.1 MG; Start 07/10/16 at 17:30 Nitroglycerin (Nitroglycerin (Sl Tab) 0.4 Mg) 1 tab Q5M PRN SL ANGINA; Start at 17:30 Carvedilol (Coreg) 6.25 mg BID PO Last administered on 07/19/16 09:08; Admin Dose 6.25 MG; Start 07/10/16 at 21:00 Lactobacillus Acidoph/Bulgaricus (Floranex) 1 tab TID PO Last administered on 12:43; Admin Dose 1 TAB; Start 07/10/16 at 21:00 Miscellaneous Information 1 ea NOTE XX ; Start 07/10/16 at 17:30 Glucose (Glutose) 15 gm Q15M PRN PO DECREASED GLUCOSE; Start 07/10/16 at 17:30 Glucose (Glutose) 22.5 gm Q15M PRN PO DECREASED GLUCOSE; Start 07/10/16 at 17: 30 Dextrose (D50w Syringe) 25 ml Q15M PRN IV DECREASED GLUCOSE Last administered on 07/12/16 07:54; Admin Dose 25 ML; Start 07/10/16 at 17:30 Dextrose (D50w Syringe) 50 ml Q15M PRN IV DECREASED GLUCOSE Last administered on 07/11/16 05:05; Admin Dose 50 ML; Start 07/10/16 at 17:30 Glucagon (Glucagen) 1 mg Q15M PRN IM DECREASED GLUCOSE; Start 07/10/16 at 17:30 Glucose (Glutose) 15 gm Q15M PRN BUCCAL DECREASED GLUCOSE; Start 07/10/16 at 17 :30 Finasteride (Proscar) 5 mg DAILY PO Last administered on 07/19/16 09:26; Admin Dose 5 MG; Start 07/13/16 at 09:00 Naloxone HCl (Narcan) 0.2 mg Q2M PRN IV RR 8 BREATHS/MIN OR LESS; Start at 17:00 Fluconazole (Diflucan) 100 mg DAILY PO Last administered on 07/19/16 09:26; Admin Dose 100 MG; Start 07/13/16 at 09:00 Ciprofloxacin HCl (Ciloxan 0.3% Oph) 1 drop TID RIGHT EYE Last administered on 07/19/16 13:15; Admin Dose 1 DROP; Start 07/13/16 at 21:00 Sodium Bicarbonate (Sodium Bicarbonate Tab) 650 mg TID PO Last administered on 07/19/16 12:44; Admin Dose 650 MG; Start 07/14/16 at 10:00 Epoetin Mauricio (Epogen (Esrd)) 10,000 units MoWeFr@17 SC Last administered on 20:56; Admin Dose 10,000 UNITS; Start 07/14/16 at 17:00 Ferrous Sulfate (Ferrous Sulfate (Ec)) 325 mg BID PO Last administered on 09:04; Admin Dose 325 MG; Start 07/14/16 at 21:00 Hydromorphone HCl (Dilaudid) 0.5 mg Q4 PRN IV BREAKTHROUGH PAIN Last administered on 07/19/16 15:00; Admin Dose 0.5 MG; Start 07/14/16 at 17:00 Pantoprazole (Protonix Tab) 40 mg DAILY@06 PO Last administered on 07/19/16 05 :21; Admin Dose 40 MG; Start 07/15/16 at 06:00 Simethicone (Mylicon) 80 mg Q6H PRN GTB DISTENSION/GAS/BLOATING Last administered on 07/15/16 11:24; Admin Dose 80 MG; Start 07/15/16 at 10:30 Docusate Sodium (Colace) 250 mg DAILY PO Last administered on 07/19/16 09:04; Admin Dose 250 MG; Start 07/15/16 at 11:30 Polyethylene Glycol (Miralax) 17 gm DAILY PO Last administered on 07/19/16 09: 05; Admin Dose 17 GM; Start 07/15/16 at 11:30 Tamsulosin HCl (Flomax) 0.4 mg HS PO Last administered on 07/18/16 20:50; Admin Dose 0.4 MG; Start 07/15/16 at 21:00 Rifampin (Rifampin) 600 mg DAILY PO Last administered on 07/19/16 09:04; Admin Dose 600 MG; Start 07/15/16 at 14:00 Hydralazine HCl (Apresoline) 50 mg TID PO Last administered on 07/19/16 12:43 ; Admin Dose 50 MG; Start 07/15/16 at 21:00 Heparin Sodium (Porcine) (Heparin (5000 Units/0.5 ml)) 5,000 unit BID SC Last administered on 07/19/16 09:13; Admin Dose 5,000 UNIT; Start 07/16/16 at 21:00 Oxycodone/ Acetaminophen (Percocet (5/ 325)) 1 tab Q4H PRN PO BREAKTHROUGH PAIN Last administered on 07/19/16 12:44; Admin Dose 1 TAB; Start 07/16/16 at 22:00 Amlodipine Besylate (Norvasc) 5 mg DAILY PO Last administered on 07/19/16 09: 08; Admin Dose 5 MG; Start 07/19/16 at 09:00 Hydralazine HCl 25 mg 25 mg TID PO Last administered on 07/19/16 12:44; Admin Dose 25 MG; Start 07/18/16 at 13:00 Vancomycin HCl (Vancocin) 100 ml @ 100 mls/hr Q48H IVPB ; Start 07/20/16 at 17: 00 Neomycin/ Polymyxin/ Hydrocortisone (Cortisporin Otic Susp) 4 drop TID LEFT EAR Last administered on 2/25/17at 12:38; Admin Dose 4 DROP; Start 07/19/16 at 09: 30 RAMON PUENTES Jul 19, 2016 18:03
[2016-07-19] MEDS: TAMSULOSIN (SR) 0.4 MG CAP PO SCH (21:44)
[2016-07-19 22:07] VITALS: BP 144/80; RESP 18
[2016-07-20] MEDS: ONDANSETRON 4 MG INJ IV PRN ×2 (02:47→09:09)
[2016-07-20] MEDS: HYDROmorphONE 1 MG/ML SYG IV PRN ×5 (02:56→21:38)
[2016-07-20] MEDS: PANTOPRAZOLE (EC) 40 MG TAB PO SCH (04:48)
[2016-07-20] MEDS: BUMETANIDE 1 MG TAB PO SCH (04:50)
[2016-07-20 05:29] LABS: ADD SCAN DIFF NO
[2016-07-20 05:37] LABS: BASOPHILS % 0.6 % (0.0-2.0); EOSINOPHILS # 0.2 10^3/ul (0.0-0.5); EOSINOPHILS % 4.1 % (0.0-7.0); HEMATOCRIT 29.8 % (42.0-52.0); HEMOGLOBIN 9.9 g/dl (14.0-18.0); LYMPHOCYTES # 1.1 10^3/ul (0.8-2.9); LYMPHOCYTES % 30.9 % (15.0-51.0); MEAN CORPUSCULAR HEMOGLOBIN 28.9 pg (29.0-33.0); MEAN CORPUSCULAR HGB CONC 33.2 g/dl (32.0-37.0); MEAN CORPUSCULAR VOLUME 86.9 fl (82.0-101.0); MEAN PLATELET VOLUME 9.5 fl (7.4-10.4); MONOCYTE # 0.5 10^3/ul (0.3-0.9); MONOCYTES % 13.8 % (0.0-11.0); NEUTROPHIL # 1.8 10^3/ul (1.6-7.5); NEUTROPHILS % 50.3 % (39.0-77.0); PLATELET COUNT 238 10^3/UL (140-415); RED BLOOD COUNT 3.43 10^6/ul (4.70-6.10); RED CELL DISTRIBUTION WIDTH 17.6 % (11.5-14.5); WHITE BLOOD COUNT 3.6 10^3/ul (4.8-10.8)
[2016-07-20 05:56] LABS: POTASSIUM 4.2 mmol/L (3.5-5.1)
[2016-07-20 05:59] LABS: CREATININE 3.05 mg/dl (0.61-1.24)
[2016-07-20] MEDS: INSULIN ASPART [NOVOLOG] 3 ML PEN SC SCH ×4 (07:30→21:00)
--- NOTE | 2016-07-20 08:36 | CONS ---
Date/Time of Note Date/Time of Note DATE: 07/20/16 TIME: 08:33 Assessment/Plan Assessment/Plan Problems: (1) HTN (hypertension) Comment: controlled (2) Diskitis Comment: s/p evacuation of associated psoas abscess... on abx (3) CKD (chronic kidney disease) stage 3, GFR 30-59 ml/min Comment: Cr sl worse with diuresis.. will back off now and f/u labs in am (4) Diabetes mellitus due to underlying condition with diabetic polyneuropathy, with long-term current use of insulin Status: Chronic (5) Edema Comment: sl improved, but Cr up a bit Consultation Date/Type/Reason Admit Date/Time Jul 10, 2016 at 15:03 Type of Consultation: neph 24 HR Interval Summary Free Text/Dictation pt stable Exam/Review of Systems Vital Signs Vitals Vital Signs Date Time Temp Pulse Resp B/P Pulse Ox O2 Delivery O2 Flow Rate FiO2 07/19/16 22:07 98.2 59 18 144/80 94 07/18/16 01:00 Room Air 07/17/16 17:47 21 Intake and Output 07/19/16 07/19/16 07/20/16 15:00 23:00 07:00 Intake Total 600 ml 400 ml Output Total 500 ml 1200 ml Balance 100 ml -800 ml Exam Constitutional: alert, oriented Neck: supple Respiratory: clear to auscultation Cardiovascular: regular rate and rhythm Extremities: edema (1-2+) Results Result Diagram: 07/20/16 0500 07/20/16 0500 Results 24 hrs Laboratory Tests Test 07/19/16 11:56 07/19/16 17:36 07/19/16 21:56 07/20/16 05:00 Bedside Glucose 113 111 120 Anion Gap 15 Basophils # 0.0 Basophils % 0.6 Blood Urea Nitrogen 60 H Calcium Level 8.0 L Carbon Dioxide Level 30 Chloride Level 97 Creatinine 3.05 H Eosinophils # 0.2 Eosinophils % 4.1 Glucose Level 88 Hematocrit 29.8 L Hemoglobin 9.9 L Lymphocytes # 1.1 Lymphocytes % 30.9 Mean Corpuscular Hemoglobin 28.9 L Mean Corpuscular Hemoglobin Concent 33.2 Mean Corpuscular Volume 86.9 Mean Platelet Volume 9.5 Monocytes # 0.5 Monocytes % 13.8 H Neutrophils # 1.8 Neutrophils % 50.3 Nucleated Red Blood Cells # 0.0 Nucleated Red Blood Cells % 0.0 Platelet Count 238 Potassium Level 4.2 Red Blood Count 3.43 L Red Cell Distribution Width 17.6 H Sodium Level 138 White Blood Count 3.6 L Test 07/20/16 08:02 Bedside Glucose 83 Medications Medications Current Medications Ondansetron HCl (Zofran Inj) 4 mg Q6H PRN IV NAUSEA AND/OR VOMITING Last administered on 07/20/16 02:47; Admin Dose 4 MG; Start 07/10/16 at 17:30 Lorazepam (Ativan) 0.5 mg Q6H PRN IV ANXIETY; Start 07/10/16 at 17:30 Hydralazine HCl (Apresoline) 10 mg Q6H PRN IV ELEVATED BLOOD PRESSURE Last administered on 07/15/16 14:20; Admin Dose 10 MG; Start 07/10/16 at 17:30 Clonidine (Catapres) 0.1 mg Q6H PRN PO ELEVATED BLOOD PRESSURE Last administered on 07/14/16 13:07; Admin Dose 0.1 MG; Start 07/10/16 at 17:30 Nitroglycerin (Nitroglycerin (Sl Tab) 0.4 Mg) 1 tab Q5M PRN SL ANGINA; Start at 17:30 Carvedilol (Coreg) 6.25 mg BID PO Last administered on 07/19/16 21:44; Admin Dose 6.25 MG; Start 07/10/16 at 21:00 Lactobacillus Acidoph/Bulgaricus (Floranex) 1 tab TID PO Last administered on 21:41; Admin Dose 1 TAB; Start 07/10/16 at 21:00 Miscellaneous Information 1 ea NOTE XX ; Start 07/10/16 at 17:30 Glucose (Glutose) 15 gm Q15M PRN PO DECREASED GLUCOSE; Start 07/10/16 at 17:30 Glucose (Glutose) 22.5 gm Q15M PRN PO DECREASED GLUCOSE; Start 07/10/16 at 17: 30 Dextrose (D50w Syringe) 25 ml Q15M PRN IV DECREASED GLUCOSE Last administered on 07/12/16 07:54; Admin Dose 25 ML; Start 07/10/16 at 17:30 Dextrose (D50w Syringe) 50 ml Q15M PRN IV DECREASED GLUCOSE Last administered on 07/11/16 05:05; Admin Dose 50 ML; Start 07/10/16 at 17:30 Glucagon (Glucagen) 1 mg Q15M PRN IM DECREASED GLUCOSE; Start 07/10/16 at 17:30 Glucose (Glutose) 15 gm Q15M PRN BUCCAL DECREASED GLUCOSE; Start 07/10/16 at 17 :30 Finasteride (Proscar) 5 mg DAILY PO Last administered on 07/19/16 09:26; Admin Dose 5 MG; Start 07/13/16 at 09:00 Naloxone HCl (Narcan) 0.2 mg Q2M PRN IV RR 8 BREATHS/MIN OR LESS; Start at 17:00 Fluconazole (Diflucan) 100 mg DAILY PO Last administered on 07/19/16 09:26; Admin Dose 100 MG; Start 07/13/16 at 09:00 Ciprofloxacin HCl (Ciloxan 0.3% Oph) 1 drop TID RIGHT EYE Last administered on 07/19/16 21:45; Admin Dose 1 DROP; Start 07/13/16 at 21:00 Sodium Bicarbonate (Sodium Bicarbonate Tab) 650 mg TID PO Last administered on 07/19/16 21:44; Admin Dose 650 MG; Start 07/14/16 at 10:00 Epoetin Mauricio (Epogen (Esrd)) 10,000 units MoWeFr@17 SC Last administered on 20:56; Admin Dose 10,000 UNITS; Start 07/14/16 at 17:00 Ferrous Sulfate (Ferrous Sulfate (Ec)) 325 mg BID PO Last administered on 21:44; Admin Dose 325 MG; Start 07/14/16 at 21:00 Hydromorphone HCl (Dilaudid) 0.5 mg Q4 PRN IV BREAKTHROUGH PAIN Last administered on 07/20/16 02:56; Admin Dose 0.5 MG; Start 07/14/16 at 17:00 Pantoprazole (Protonix Tab) 40 mg DAILY@06 PO Last administered on 07/20/16 04 :48; Admin Dose 40 MG; Start 07/15/16 at 06:00 Simethicone (Mylicon) 80 mg Q6H PRN GTB DISTENSION/GAS/BLOATING Last administered on 07/15/16 11:24; Admin Dose 80 MG; Start 07/15/16 at 10:30 Docusate Sodium (Colace) 250 mg DAILY PO Last administered on 07/19/16 09:04; Admin Dose 250 MG; Start 07/15/16 at 11:30 Polyethylene Glycol (Miralax) 17 gm DAILY PO Last administered on 07/19/16 09: 05; Admin Dose 17 GM; Start 07/15/16 at 11:30 Tamsulosin HCl (Flomax) 0.4 mg HS PO Last administered on 07/19/16 21:44; Admin Dose 0.4 MG; Start 07/15/16 at 21:00 Rifampin (Rifampin) 600 mg DAILY PO Last administered on 07/19/16 09:04; Admin Dose 600 MG; Start 07/15/16 at 14:00 Hydralazine HCl (Apresoline) 50 mg TID PO Last administered on 07/19/16 21:43 ; Admin Dose 50 MG; Start 07/15/16 at 21:00 Heparin Sodium (Porcine) (Heparin (5000 Units/0.5 ml)) 5,000 unit BID SC Last administered on 07/19/16 22:00; Admin Dose 5,000 UNIT; Start 07/16/16 at 21:00 Oxycodone/ Acetaminophen (Percocet (5/ 325)) 1 tab Q4H PRN PO BREAKTHROUGH PAIN Last administered on 07/19/16 12:44; Admin Dose 1 TAB; Start 07/16/16 at 22:00 Amlodipine Besylate (Norvasc) 5 mg DAILY PO Last administered on 07/19/16 09: 08; Admin Dose 5 MG; Start 07/19/16 at 09:00 Hydralazine HCl 25 mg 25 mg TID PO Last administered on 07/19/16 21:45; Admin Dose 25 MG; Start 07/18/16 at 13:00 Vancomycin HCl (Vancocin) 100 ml @ 100 mls/hr Q48H IVPB ; Start 07/20/16 at 17: 00 Neomycin/ Polymyxin/ Hydrocortisone (Cortisporin Otic Susp) 4 drop TID LEFT EAR Last administered on 07/19/16 21:45; Admin Dose 4 DROP; Start 07/19/16 at 09: 30 LIDYA GALLEGOS MD Jul 20, 2016 08:36
[2016-07-20] MEDS: CIPROFLOXACIN 0.3% 2.5 ML OPH RIGHT EYE SCH ×3 (08:40→21:35)
[2016-07-20] MEDS: LACTOBACILLUS CHEW TAB PO SCH ×3 (08:41→21:35)
[2016-07-20] MEDS: FLUCONAZOLE 100 MG TAB PO SCH (08:41)
[2016-07-20] MEDS: AMLODIPINE 5 MG TAB PO SCH (08:41)
[2016-07-20] MEDS: FERROUS SULFATE (EC) 325 MG TAB PO SCH ×2 (08:41→21:33)
[2016-07-20] MEDS: FINASTERIDE 5 MG TAB PO SCH (08:42)
[2016-07-20] MEDS: NEOMYC/POLYMYX/HC 10 ML OTIC SUSP LEFT EAR SCH ×3 (08:42→21:35)
[2016-07-20] MEDS: HEPARIN 5,000 UNIT/0.5 ML SYG SC SCH ×2 (08:45→21:38)
[2016-07-20] MEDS: DOCUSATE SODIUM 250 MG CAP PO SCH (09:00)
[2016-07-20] MEDS: POLYETHYLENE GLYCOL 17 GM PACKET PO SCH (09:00)
[2016-07-20] MEDS: NA BICARBONATE 650 MG TAB PO SCH ×3 (09:00→21:34)
[2016-07-20 09:08] VITALS: BP 172/90; RESP 17
--- NOTE | 2016-07-20 10:04 | PN ---
Date/Time of Note Date/Time of Note DATE: 07/20/16 TIME: 10:02 Assessment/Plan VTE Prophylaxis VTE Prophylaxis Intervention: SCD's Lines/Catheters [facility] PICC Line Central line still needed: Yes Urinary Cath still in place: No Assessment/Plan Assessment/Plan 56-year-old male transferred from outside hospital managed as follows 1. Sepsis 2/2 Spinal abscess / UTI: resolved 2. Lumbar epidural abscess : MRSA * s/p evacuation 3. Chronic kidney disease r/o ARF 2/2 diuretic therapy Patient's baseline Cr seems to be about 2.5 4. ? Diabetes type 2 - A1c = 6.4 5. Hypertension: [id number]. Anemia 2/2 CKD Has received 4 units so far 7. 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 Deep venous thrombosis prophylaxis; SCDs. Subjective 24 Hr Interval Summary Constitutional: no complaints Exam/Review of Systems Vital Signs Vitals Vital Signs Date Time Temp Pulse Resp B/P Pulse Ox O2 Delivery O2 Flow Rate FiO2 07/20/16 09:08 98.3 61 17 172/90 96 07/18/16 01:00 Room Air 07/17/16 17:47 21 Intake and Output 07/19/16 07/19/16 07/20/16 14:59 22:59 06:59 Intake Total 600 ml 400 ml Output Total 500 ml 1200 ml Balance 100 ml -800 ml Exam Constitutional: alert, oriented Head: normocephalic Neck: supple Respiratory: clear to auscultation Cardiovascular: regular rate and rhythm Gastrointestinal: soft Extremities: pitting pedal edema Results Result Diagram: 07/20/16 0500 07/20/16 0500 Results 24 hrs Laboratory Tests Test 07/19/16 11:56 07/19/16 17:36 07/19/16 21:56 07/20/16 05:00 Bedside Glucose 113 111 120 Anion Gap 15 Basophils # 0.0 Basophils % 0.6 Blood Urea Nitrogen 60 H Calcium Level 8.0 L Carbon Dioxide Level 30 Chloride Level 97 Creatinine 3.05 H Eosinophils # 0.2 Eosinophils % 4.1 Glucose Level 88 Hematocrit 29.8 L Hemoglobin 9.9 L Lymphocytes # 1.1 Lymphocytes % 30.9 Mean Corpuscular Hemoglobin 28.9 L Mean Corpuscular Hemoglobin Concent 33.2 Mean Corpuscular Volume 86.9 Mean Platelet Volume 9.5 Monocytes # 0.5 Monocytes % 13.8 H Neutrophils # 1.8 Neutrophils % 50.3 Nucleated Red Blood Cells # 0.0 Nucleated Red Blood Cells % 0.0 Platelet Count 238 Potassium Level 4.2 Red Blood Count 3.43 L Red Cell Distribution Width 17.6 H Sodium Level 138 White Blood Count 3.6 L Test 07/20/16 08:02 Bedside Glucose 83 Medications Medications Current Medications Ondansetron HCl (Zofran Inj) 4 mg Q6H PRN IV NAUSEA AND/OR VOMITING Last administered on 07/20/16 09:09; Admin Dose 4 MG; Start 07/10/16 at 17:30 Lorazepam (Ativan) 0.5 mg Q6H PRN IV ANXIETY; Start 07/10/16 at 17:30 Hydralazine HCl (Apresoline) 10 mg Q6H PRN IV ELEVATED BLOOD PRESSURE Last administered on 07/15/16 14:20; Admin Dose 10 MG; Start 07/10/16 at 17:30 Clonidine (Catapres) 0.1 mg Q6H PRN PO ELEVATED BLOOD PRESSURE Last administered on 07/14/16 13:07; Admin Dose 0.1 MG; Start 07/10/16 at 17:30 Nitroglycerin (Nitroglycerin (Sl Tab) 0.4 Mg) 1 tab Q5M PRN SL ANGINA; Start at 17:30 Carvedilol (Coreg) 6.25 mg BID PO Last administered on 07/20/16 08:42; Admin Dose 6.25 MG; Start 07/10/16 at 21:00 Lactobacillus Acidoph/Bulgaricus (Floranex) 1 tab TID PO Last administered on 08:41; Admin Dose 1 TAB; Start 07/10/16 at 21:00 Miscellaneous Information 1 ea NOTE XX ; Start 07/10/16 at 17:30 Glucose (Glutose) 15 gm Q15M PRN PO DECREASED GLUCOSE; Start 07/10/16 at 17:30 Glucose (Glutose) 22.5 gm Q15M PRN PO DECREASED GLUCOSE; Start 07/10/16 at 17: 30 Dextrose (D50w Syringe) 25 ml Q15M PRN IV DECREASED GLUCOSE Last administered on 07/12/16 07:54; Admin Dose 25 ML; Start 07/10/16 at 17:30 Dextrose (D50w Syringe) 50 ml Q15M PRN IV DECREASED GLUCOSE Last administered on 07/11/16 05:05; Admin Dose 50 ML; Start 07/10/16 at 17:30 Glucagon (Glucagen) 1 mg Q15M PRN IM DECREASED GLUCOSE; Start 07/10/16 at 17:30 Glucose (Glutose) 15 gm Q15M PRN BUCCAL DECREASED GLUCOSE; Start 07/10/16 at 17 :30 Finasteride (Proscar) 5 mg DAILY PO Last administered on 07/20/16 08:42; Admin Dose 5 MG; Start 07/13/16 at 09:00 Naloxone HCl (Narcan) 0.2 mg Q2M PRN IV RR 8 BREATHS/MIN OR LESS; Start at 17:00 Fluconazole (Diflucan) 100 mg DAILY PO Last administered on 07/20/16 08:41; Admin Dose 100 MG; Start 07/13/16 at 09:00 Ciprofloxacin HCl (Ciloxan 0.3% Oph) 1 drop TID RIGHT EYE Last administered on 07/20/16 08:40; Admin Dose 1 DROP; Start 07/13/16 at 21:00 Sodium Bicarbonate (Sodium Bicarbonate Tab) 650 mg TID PO Last administered on 07/19/16 21:44; Admin Dose 650 MG; Start 07/14/16 at 10:00 Epoetin Mauricio (Epogen (Esrd)) 10,000 units MoWeFr@17 SC Last administered on 20:56; Admin Dose 10,000 UNITS; Start 07/14/16 at 17:00 Ferrous Sulfate (Ferrous Sulfate (Ec)) 325 mg BID PO Last administered on 08:41; Admin Dose 325 MG; Start 07/14/16 at 21:00 Hydromorphone HCl (Dilaudid) 0.5 mg Q4 PRN IV BREAKTHROUGH PAIN Last administered on 07/20/16 08:31; Admin Dose 0.5 MG; Start 07/14/16 at 17:00 Pantoprazole (Protonix Tab) 40 mg DAILY@06 PO Last administered on 07/20/16 04 :48; Admin Dose 40 MG; Start 07/15/16 at 06:00 Simethicone (Mylicon) 80 mg Q6H PRN GTB DISTENSION/GAS/BLOATING Last administered on 07/15/16 11:24; Admin Dose 80 MG; Start 07/15/16 at 10:30 Docusate Sodium (Colace) 250 mg DAILY PO Last administered on 07/19/16 09:04; Admin Dose 250 MG; Start 07/15/16 at 11:30 Polyethylene Glycol (Miralax) 17 gm DAILY PO Last administered on 07/19/16 09: 05; Admin Dose 17 GM; Start 07/15/16 at 11:30 Tamsulosin HCl (Flomax) 0.4 mg HS PO Last administered on 07/19/16 21:44; Admin Dose 0.4 MG; Start 07/15/16 at 21:00 Rifampin (Rifampin) 600 mg DAILY PO Last administered on 07/19/16 09:04; Admin Dose 600 MG; Start 07/15/16 at 14:00 Hydralazine HCl (Apresoline) 50 mg TID PO Last administered on 07/20/16 08:40 ; Admin Dose 50 MG; Start 07/15/16 at 21:00 Heparin Sodium (Porcine) (Heparin (5000 Units/0.5 ml)) 5,000 unit BID SC Last administered on 07/20/16 08:45; Admin Dose 5,000 UNIT; Start 07/16/16 at 21:00 Oxycodone/ Acetaminophen (Percocet (5/ 325)) 1 tab Q4H PRN PO BREAKTHROUGH PAIN Last administered on 07/19/16 12:44; Admin Dose 1 TAB; Start 07/16/16 at 22:00 Amlodipine Besylate (Norvasc) 5 mg DAILY PO Last administered on 07/20/16 08: 41; Admin Dose 5 MG; Start 07/19/16 at 09:00 Hydralazine HCl 25 mg 25 mg TID PO Last administered on 07/20/16 08:41; Admin Dose 25 MG; Start 07/18/16 at 13:00 Vancomycin HCl (Vancocin) 100 ml @ 100 mls/hr Q48H IVPB ; Start 07/20/16 at 17: 00 Neomycin/ Polymyxin/ Hydrocortisone (Cortisporin Otic Susp) 4 drop TID LEFT EAR Last administered on 07/20/16t 08:42; Admin Dose 4 DROP; Start 07/19/16 at 09: 30 Bumetanide (Bumex) 2 mg DAILY PO ; Start 07/21/16 at 09:00 RAMON PUENTES Jul 20, 2016 10:04
[2016-07-20] MEDS: RIFAMPIN 300 MG CAP PO SCH (10:54)
[2016-07-20 13:02] VITALS: BP 159/63; PULSE 70; RESP 18
[2016-07-20] MEDS: VANCOMYCIN 500MG/NS (PMX) 100 ML IVPB SCH (17:44)
--- NOTE | 2016-07-20 19:45 | CONS ---
Date/Time of Note Date/Time of Note DATE: 07/20/16 TIME: 19:43 Assessment/Plan Assessment/Plan Chief Complaint/Hosp Course ID PROGRESS NOTE CURRENT ABX=> Vanco IV #10 + Rifampin 24H INTERVAL SUMMARY * Clinically stable -- worked w/PTx today now resting, no new issues, no c/o * Afebrile, VSS, NAD PHYSICAL EXAMINATION: GENERAL: VSS, NAD HEENT: Unremarkable -- NECK: Supple, trachea midline. CHEST: Rise symmetrical, without dyspnea on observation HEART: Pulse RRR ABDOMEN: Soft, benign EXTREMITIES: Warm ID ASSESSMENT 56 yo M admit with: 1. Lumbar diskitis, osteomyelitis, w/(+)MRSA psoas abscess=> s/p decompressive laminectomy with evacuation of abscess on 07/12/2016. * Lumbar culture growing MRSA, susceptible to vancomycin, clindamycin, rifampin , Bactrim. Anaerobic cultures had been negative. 2. Chronic kidney disease. 3. Status post urinary tract infection. * Urine culture grew Enterobacter aerogenes and Katharina glabrata on admission. 4. Diabetes. 5. Hypertension. 6. Urinary retention=> s/p Cox ( )MRSA Nares => pending INVASIVES: PICC, FC ABX ALLERGY: KNDA CURRENT ABX: => Vanco IV #10 + Rifampin ID RECOMMENDATIONS 1. Continue current ABX and monitor renal fx on Vanco IV. * Renal Fx currently stable, continue ABX for 8 weeks for MRSA, may change Vanco IV to Daptomycin if renal f-n deteriorates, f/u ortho/renal rec-s 2. Screen nares for MRSA colonization and add Bactroban to nares if (+) = PENDING . Problems: Consultation Date/Type/Reason Admit Date/Time Jul 10, 2016 at 15:03 Type of Consultation: ID Exam/Review of Systems Vital Signs Vitals Vital Signs Date Time Temp Pulse Resp B/P Pulse Ox O2 Delivery O2 Flow Rate FiO2 07/20/16 13:02 70 18 159/63 95 Room Air 07/20/16 09:08 98.3 07/17/16 17:47 21 Intake and Output 07/19/16 07/19/16 07/20/16 15:00 23:00 07:00 Intake Total 600 ml 400 ml Output Total 500 ml 1200 ml Balance 100 ml -800 ml Results Result Diagram: 07/20/16 0500 07/20/16 0500 Results 24 hrs Laboratory Tests Test 07/19/16 21:56 07/20/16 05:00 07/20/16 08:02 07/20/16 11:57 Bedside Glucose 120 83 95 Anion Gap 15 Basophils # 0.0 Basophils % 0.6 Blood Urea Nitrogen 60 H Calcium Level 8.0 L Carbon Dioxide Level 30 Chloride Level 97 Creatinine 3.05 H Eosinophils # 0.2 Eosinophils % 4.1 Glucose Level 88 Hematocrit 29.8 L Hemoglobin 9.9 L Lymphocytes # 1.1 Lymphocytes % 30.9 Mean Corpuscular Hemoglobin 28.9 L Mean Corpuscular Hemoglobin Concent 33.2 Mean Corpuscular Volume 86.9 Mean Platelet Volume 9.5 Monocytes # 0.5 Monocytes % 13.8 H Neutrophils # 1.8 Neutrophils % 50.3 Nucleated Red Blood Cells # 0.0 Nucleated Red Blood Cells % 0.0 Platelet Count 238 Potassium Level 4.2 Red Blood Count 3.43 L Red Cell Distribution Width 17.6 H Sodium Level 138 White Blood Count 3.6 L Test 07/20/16 17:24 Bedside Glucose 119 Medications Medications Current Medications Ondansetron HCl (Zofran Inj) 4 mg Q6H PRN IV NAUSEA AND/OR VOMITING Last administered on 07/20/16 09:09; Admin Dose 4 MG; Start 07/10/16 at 17:30 Lorazepam (Ativan) 0.5 mg Q6H PRN IV ANXIETY; Start 07/10/16 at 17:30 Hydralazine HCl (Apresoline) 10 mg Q6H PRN IV ELEVATED BLOOD PRESSURE Last administered on 07/15/16 14:20; Admin Dose 10 MG; Start 07/10/16 at 17:30 Clonidine (Catapres) 0.1 mg Q6H PRN PO ELEVATED BLOOD PRESSURE Last administered on 07/14/16 13:07; Admin Dose 0.1 MG; Start 07/10/16 at 17:30 Nitroglycerin (Nitroglycerin (Sl Tab) 0.4 Mg) 1 tab Q5M PRN SL ANGINA; Start at 17:30 Carvedilol (Coreg) 6.25 mg BID PO Last administered on 07/20/16 08:42; Admin Dose 6.25 MG; Start 07/10/16 at 21:00 Lactobacillus Acidoph/Bulgaricus (Floranex) 1 tab TID PO Last administered on 13:14; Admin Dose 1 TAB; Start 07/10/16 at 21:00 Miscellaneous Information 1 ea NOTE XX ; Start 07/10/16 at 17:30 Glucose (Glutose) 15 gm Q15M PRN PO DECREASED GLUCOSE; Start 07/10/16 at 17:30 Glucose (Glutose) 22.5 gm Q15M PRN PO DECREASED GLUCOSE; Start 07/10/16 at 17: 30 Dextrose (D50w Syringe) 25 ml Q15M PRN IV DECREASED GLUCOSE Last administered on 07/12/16 07:54; Admin Dose 25 ML; Start 07/10/16 at 17:30 Dextrose (D50w Syringe) 50 ml Q15M PRN IV DECREASED GLUCOSE Last administered on 07/11/16 05:05; Admin Dose 50 ML; Start 07/10/16 at 17:30 Glucagon (Glucagen) 1 mg Q15M PRN IM DECREASED GLUCOSE; Start 07/10/16 at 17:30 Glucose (Glutose) 15 gm Q15M PRN BUCCAL DECREASED GLUCOSE; Start 07/10/16 at 17 :30 Finasteride (Proscar) 5 mg DAILY PO Last administered on 07/20/16 08:42; Admin Dose 5 MG; Start 07/13/16 at 09:00 Naloxone HCl (Narcan) 0.2 mg Q2M PRN IV RR 8 BREATHS/MIN OR LESS; Start at 17:00 Fluconazole (Diflucan) 100 mg DAILY PO Last administered on 07/20/16 08:41; Admin Dose 100 MG; Start 07/13/16 at 09:00 Ciprofloxacin HCl (Ciloxan 0.3% Oph) 1 drop TID RIGHT EYE Last administered on 07/20/16 13:15; Admin Dose 1 DROP; Start 07/13/16 at 21:00 Sodium Bicarbonate (Sodium Bicarbonate Tab) 650 mg TID PO Last administered on 07/19/16 21:44; Admin Dose 650 MG; Start 07/14/16 at 10:00 Epoetin Mauricio (Epogen (Esrd)) 10,000 units MoWeFr@17 SC Last administered on 20:56; Admin Dose 10,000 UNITS; Start 07/14/16 at 17:00 Ferrous Sulfate (Ferrous Sulfate (Ec)) 325 mg BID PO Last administered on 08:41; Admin Dose 325 MG; Start 07/14/16 at 21:00 Hydromorphone HCl (Dilaudid) 0.5 mg Q4 PRN IV BREAKTHROUGH PAIN Last administered on 07/20/16 17:44; Admin Dose 0.5 MG; Start 07/14/16 at 17:00 Pantoprazole (Protonix Tab) 40 mg DAILY@06 PO Last administered on 07/20/16 04 :48; Admin Dose 40 MG; Start 07/15/16 at 06:00 Simethicone (Mylicon) 80 mg Q6H PRN GTB DISTENSION/GAS/BLOATING Last administered on 07/15/16 11:24; Admin Dose 80 MG; Start 07/15/16 at 10:30 Docusate Sodium (Colace) 250 mg DAILY PO Last administered on 07/19/16 09:04; Admin Dose 250 MG; Start 07/15/16 at 11:30 Polyethylene Glycol (Miralax) 17 gm DAILY PO Last administered on 07/19/16 09: 05; Admin Dose 17 GM; Start 07/15/16 at 11:30 Tamsulosin HCl (Flomax) 0.4 mg HS PO Last administered on 07/19/16 21:44; Admin Dose 0.4 MG; Start 07/15/16 at 21:00 Rifampin (Rifampin) 600 mg DAILY PO Last administered on 07/20/16 10:54; Admin Dose 600 MG; Start 07/15/16 at 14:00 Hydralazine HCl (Apresoline) 50 mg TID PO Last administered on 07/20/16 13:13 ; Admin Dose 50 MG; Start 07/15/16 at 21:00 Heparin Sodium (Porcine) (Heparin (5000 Units/0.5 ml)) 5,000 unit BID SC Last administered on 07/20/16 08:45; Admin Dose 5,000 UNIT; Start 07/16/16 at 21:00 Oxycodone/ Acetaminophen (Percocet (5/ 325)) 1 tab Q4H PRN PO BREAKTHROUGH PAIN Last administered on 07/19/16 12:44; Admin Dose 1 TAB; Start 07/16/16 at 22:00 Amlodipine Besylate (Norvasc) 5 mg DAILY PO Last administered on 07/20/16 08: 41; Admin Dose 5 MG; Start 07/19/16 at 09:00 Hydralazine HCl 25 mg 25 mg TID PO Last administered on 07/20/16 13:13; Admin Dose 25 MG; Start 07/18/16 at 13:00 Vancomycin HCl (Vancocin) 100 ml @ 100 mls/hr Q48H IVPB Last administered on 17:44; Admin Dose 100 MLS/HR; Start 07/20/16 at 17:00 Neomycin/ Polymyxin/ Hydrocortisone (Cortisporin Otic Susp) 4 drop TID LEFT EAR Last administered on 07/20/16 13:14; Admin Dose 4 DROP; Start 07/19/16 at 09: 30 Bumetanide (Bumex) 2 mg DAILY PO ; Start 07/21/16 at 09:00 JAMIR SERNA NP Jul 20, 2016 19:45
[2016-07-20 20:00] VITALS: BP 155/88; RESP 18
[2016-07-20] MEDS: TAMSULOSIN (SR) 0.4 MG CAP PO SCH (21:36)
[2016-07-21] MEDS: HYDROmorphONE 1 MG/ML SYG IV PRN ×6 (01:38→23:00)
[2016-07-21] MEDS: PANTOPRAZOLE (EC) 40 MG TAB PO SCH (05:32)
[2016-07-21 05:40] LABS: ADD SCAN DIFF NO
[2016-07-21 05:44] LABS: BASOPHILS % 0.8 % (0.0-2.0); EOSINOPHILS # 0.1 10^3/ul (0.0-0.5); EOSINOPHILS % 2.2 % (0.0-7.0); HEMATOCRIT 31.9 % (42.0-52.0); HEMOGLOBIN 10.2 g/dl (14.0-18.0); LYMPHOCYTES # 1.2 10^3/ul (0.8-2.9); LYMPHOCYTES % 31.5 % (15.0-51.0); MEAN CORPUSCULAR HEMOGLOBIN 27.9 pg (29.0-33.0); MEAN CORPUSCULAR VOLUME 87.4 fl (82.0-101.0); MEAN PLATELET VOLUME 9.6 fl (7.4-10.4); MONOCYTE # 0.5 10^3/ul (0.3-0.9); MONOCYTES % 12.2 % (0.0-11.0); PLATELET COUNT 244 10^3/UL (140-415); RED BLOOD COUNT 3.65 10^6/ul (4.70-6.10); RED CELL DISTRIBUTION WIDTH 18.2 % (11.5-14.5); WHITE BLOOD COUNT 3.7 10^3/ul (4.8-10.8)
[2016-07-21 06:00] LABS: POTASSIUM 4.3 mmol/L (3.5-5.1)
[2016-07-21 06:03] LABS: CREATININE 2.84 mg/dl (0.61-1.24)
[2016-07-21 06:04] LABS: CALCIUM 7.9 mg/dl (8.4-10.2)
[2016-07-21] MEDS: INSULIN ASPART [NOVOLOG] 3 ML PEN SC SCH ×4 (07:30→20:27)
[2016-07-21 08:19] VITALS: BP 153/75; RESP 18
[2016-07-21] MEDS: NA BICARBONATE 650 MG TAB PO SCH ×3 (09:00→20:28)
[2016-07-21] MEDS: CIPROFLOXACIN 0.3% 2.5 ML OPH RIGHT EYE SCH ×3 (09:35→20:28)
[2016-07-21] MEDS: DOCUSATE SODIUM 250 MG CAP PO SCH (09:36)
[2016-07-21] MEDS: NEOMYC/POLYMYX/HC 10 ML OTIC SUSP LEFT EAR SCH ×3 (09:36→20:28)
[2016-07-21] MEDS: LACTOBACILLUS CHEW TAB PO SCH ×3 (09:36→20:28)
[2016-07-21] MEDS: FINASTERIDE 5 MG TAB PO SCH (09:36)
[2016-07-21] MEDS: RIFAMPIN 300 MG CAP PO SCH (09:36)
[2016-07-21] MEDS: FERROUS SULFATE (EC) 325 MG TAB PO SCH ×2 (09:36→20:28)
[2016-07-21] MEDS: BUMETANIDE 1 MG TAB PO SCH (09:37)
[2016-07-21] MEDS: FLUCONAZOLE 100 MG TAB PO SCH (09:38)
[2016-07-21] MEDS: AMLODIPINE 5 MG TAB PO SCH (09:38)
[2016-07-21] MEDS: POLYETHYLENE GLYCOL 17 GM PACKET PO SCH (09:38)
[2016-07-21] MEDS: HEPARIN 5,000 UNIT/0.5 ML SYG SC SCH ×2 (09:46→20:28)
[2016-07-21] MEDS: ONDANSETRON 4 MG INJ IV PRN ×2 (10:02→18:58)
--- NOTE | 2016-07-21 13:23 | CONS ---
Date/Time of Note Date/Time of Note DATE: 07/21/16 TIME: 13:20 Assessment/Plan Assessment/Plan Chief Complaint/Hosp Course SUBJECTIVE: No events overnight. The patient is alert, looks comfortable. MICROBIOLOGY: Urine culture grew Enterobacter aerogenes and Katharina glabrata on admission. Lumbar culture growing MRSA, susceptible to vancomycin, clindamycin, rifampin, Bactrim. Anaerobic cultures had been negative. Indwelling: PICC ANTIMICROBIALS: Rifampin IV vancomycin. PHYSICAL EXAMINATION: GENERAL: Well-developed, middle-aged man who is alert, in no distress. HEENT: Head atraumatic, normocephalic. Sclerae anicteric. Buccal mucosa dry. NECK: Supple. CHEST: Rise symmetrical. Breath sounds diminished to bases. HEART: S1, S2. ABDOMEN: Soft, bowel sounds present. EXTREMITIES: Without cyanosis. ASSESSMENT: 1. Lumbar diskitis, osteomyelitis, Methicillin-resistant Staphylococcus aureus psoas abscess, status post decompressive laminectomy with evacuation of abscess on 07/12/2016. 2. Chronic kidney disease. 3. Status post urinary tract infection. 4. Diabetes. 5. Hypertension. 6. Urinary retention PLAN: Remains stable, continue abx for 8 weeks, may change Vanco to Daptomycin if renal f-n deteriorates, f/u ortho/renal rec-s [facility] staff Problems: Consultation Date/Type/Reason Admit Date/Time Jul 10, 2016 at 15:03 Type of Consultation: ID Exam/Review of Systems Vital Signs Vitals Vital Signs Date Time Temp Pulse Resp B/P Pulse Ox O2 Delivery O2 Flow Rate FiO2 07/21/16 08:19 98.7 58 18 153/75 94 07/20/16 13:02 Room Air 07/17/16 17:47 21 Intake and Output 07/20/16 07/20/16 07/21/16 15:00 23:00 07:00 Intake Total 660 ml 600 ml Output Total 1255 ml 1100 ml Balance -595 ml -500 ml Results Result Diagram: 07/21/16 0430 07/21/16 0430 Results 24 hrs Laboratory Tests Test 07/20/16 17:24 07/20/16 20:02 07/21/16 04:30 07/21/16 08:12 Bedside Glucose 119 106 119 Anion Gap 16 Basophils # 0.0 Basophils % 0.8 Blood Urea Nitrogen 62 H Calcium Level 7.9 L Carbon Dioxide Level 30 Chloride Level 95 L Creatinine 2.84 H Eosinophils # 0.1 Eosinophils % 2.2 Glucose Level 110 Hematocrit 31.9 L Hemoglobin 10.2 L Lymphocytes # 1.2 Lymphocytes % 31.5 Mean Corpuscular Hemoglobin 27.9 L Mean Corpuscular Hemoglobin Concent 32.0 Mean Corpuscular Volume 87.4 Mean Platelet Volume 9.6 Monocytes # 0.5 Monocytes % 12.2 H Neutrophils # 2.0 Neutrophils % 53.0 Nucleated Red Blood Cells # 0.0 Nucleated Red Blood Cells % 0.0 Platelet Count 244 Potassium Level 4.3 Red Blood Count 3.65 L Red Cell Distribution Width 18.2 H Sodium Level 137 White Blood Count 3.7 L Test 07/21/16 12:18 Bedside Glucose 158 Medications Medications Current Medications Ondansetron HCl (Zofran Inj) 4 mg Q6H PRN IV NAUSEA AND/OR VOMITING Last administered on 07/21/16 10:02; Admin Dose 4 MG; Start 07/10/16 at 17:30 Lorazepam (Ativan) 0.5 mg Q6H PRN IV ANXIETY; Start 07/10/16 at 17:30 Hydralazine HCl (Apresoline) 10 mg Q6H PRN IV ELEVATED BLOOD PRESSURE Last administered on 07/15/16 14:20; Admin Dose 10 MG; Start 07/10/16 at 17:30 Clonidine (Catapres) 0.1 mg Q6H PRN PO ELEVATED BLOOD PRESSURE Last administered on 07/14/16 13:07; Admin Dose 0.1 MG; Start 07/10/16 at 17:30 Nitroglycerin (Nitroglycerin (Sl Tab) 0.4 Mg) 1 tab Q5M PRN SL ANGINA; Start at 17:30 Carvedilol (Coreg) 6.25 mg BID PO Last administered on 07/21/16 09:38; Admin Dose 6.25 MG; Start 07/10/16 at 21:00 Lactobacillus Acidoph/Bulgaricus (Floranex) 1 tab TID PO Last administered on 09:36; Admin Dose 1 TAB; Start 07/10/16 at 21:00 Miscellaneous Information 1 ea NOTE XX ; Start 07/10/16 at 17:30 Glucose (Glutose) 15 gm Q15M PRN PO DECREASED GLUCOSE; Start 07/10/16 at 17:30 Glucose (Glutose) 22.5 gm Q15M PRN PO DECREASED GLUCOSE; Start 07/10/16 at 17: 30 Dextrose (D50w Syringe) 25 ml Q15M PRN IV DECREASED GLUCOSE Last administered on 07/12/16 07:54; Admin Dose 25 ML; Start 07/10/16 at 17:30 Dextrose (D50w Syringe) 50 ml Q15M PRN IV DECREASED GLUCOSE Last administered on 07/11/16 05:05; Admin Dose 50 ML; Start 07/10/16 at 17:30 Glucagon (Glucagen) 1 mg Q15M PRN IM DECREASED GLUCOSE; Start 07/10/16 at 17:30 Glucose (Glutose) 15 gm Q15M PRN BUCCAL DECREASED GLUCOSE; Start 07/10/16 at 17 :30 Finasteride (Proscar) 5 mg DAILY PO Last administered on 07/21/16 09:36; Admin Dose 5 MG; Start 07/13/16 at 09:00 Naloxone HCl (Narcan) 0.2 mg Q2M PRN IV RR 8 BREATHS/MIN OR LESS; Start at 17:00 Fluconazole (Diflucan) 100 mg DAILY PO Last administered on 07/21/16 09:38; Admin Dose 100 MG; Start 07/13/16 at 09:00 Ciprofloxacin HCl (Ciloxan 0.3% Oph) 1 drop TID RIGHT EYE Last administered on 07/21/16 09:35; Admin Dose 1 DROP; Start 07/13/16 at 21:00 Sodium Bicarbonate (Sodium Bicarbonate Tab) 650 mg TID PO Last administered on 07/20/16 21:34; Admin Dose 650 MG; Start 07/14/16 at 10:00 Epoetin Mauricio (Epogen (Esrd)) 10,000 units MoWeFr@17 SC Last administered on 20:56; Admin Dose 10,000 UNITS; Start 07/14/16 at 17:00 Ferrous Sulfate (Ferrous Sulfate (Ec)) 325 mg BID PO Last administered on 09:36; Admin Dose 325 MG; Start 07/14/16 at 21:00 Hydromorphone HCl (Dilaudid) 0.5 mg Q4 PRN IV BREAKTHROUGH PAIN Last administered on 07/21/16 09:38; Admin Dose 0.5 MG; Start 07/14/16 at 17:00 Pantoprazole (Protonix Tab) 40 mg DAILY@06 PO Last administered on 07/21/16 05 :32; Admin Dose 40 MG; Start 07/15/16 at 06:00 Simethicone (Mylicon) 80 mg Q6H PRN GTB DISTENSION/GAS/BLOATING Last administered on 07/15/16 11:24; Admin Dose 80 MG; Start 07/15/16 at 10:30 Docusate Sodium (Colace) 250 mg DAILY PO Last administered on 07/21/16 09:36; Admin Dose 250 MG; Start 07/15/16 at 11:30 Polyethylene Glycol (Miralax) 17 gm DAILY PO Last administered on 07/21/16 09: 38; Admin Dose 17 GM; Start 07/15/16 at 11:30 Tamsulosin HCl (Flomax) 0.4 mg HS PO Last administered on 07/20/16 21:36; Admin Dose 0.4 MG; Start 07/15/16 at 21:00 Rifampin (Rifampin) 600 mg DAILY PO Last administered on 07/21/16 09:36; Admin Dose 600 MG; Start 07/15/16 at 14:00 Hydralazine HCl (Apresoline) 50 mg TID PO Last administered on 07/21/16 09:36 ; Admin Dose 50 MG; Start 07/15/16 at 21:00 Heparin Sodium (Porcine) (Heparin (5000 Units/0.5 ml)) 5,000 unit BID SC Last administered on 07/21/16 09:46; Admin Dose 5,000 UNIT; Start 07/16/16 at 21:00 Oxycodone/ Acetaminophen (Percocet (5/ 325)) 1 tab Q4H PRN PO BREAKTHROUGH PAIN Last administered on 07/19/16 12:44; Admin Dose 1 TAB; Start 07/16/16 at 22:00 Amlodipine Besylate (Norvasc) 5 mg DAILY PO Last administered on 07/21/16 09: 38; Admin Dose 5 MG; Start 07/19/16 at 09:00 Hydralazine HCl 25 mg 25 mg TID PO Last administered on 07/21/16 09:37; Admin Dose 25 MG; Start 07/18/16 at 13:00 Vancomycin HCl (Vancocin) 100 ml @ 100 mls/hr Q48H IVPB Last administered on 17:44; Admin Dose 100 MLS/HR; Start 07/20/16 at 17:00 Neomycin/ Polymyxin/ Hydrocortisone (Cortisporin Otic Susp) 4 drop TID LEFT EAR Last administered on 07/21/16 09:36; Admin Dose 4 DROP; Start 07/19/16 at 09: 30 Bumetanide (Bumex) 2 mg DAILY PO Last administered on 07/21/16 09:37; Admin Dose 2 MG; Start 07/21/16 at 09:00 DORENE GARCIA NP Jul 21, 2016 13:23
--- NOTE | 2016-07-21 13:34 | CONS ---
Date/Time of Note Date/Time of Note DATE: 07/21/16 TIME: 13:23 Assessment/Plan Assessment/Plan Chief Complaint/Hosp Course 1. He is now 9 days post op a lumbar laminectomy at the L2 L3 level with a drainage of an abscess , the abscess is growing MRSA and he is on appropriate antibiotics ,. He is feeling better with less back pain . 2. CKD , nephrotic syndrome , diabetic nephropathy . his renal function is improved from yesterday 3. anemia , he is on Epogen . 4. edema ,and is on Bumex . 5. HTN, BP is coming under control , I will D/C amlodipine Problems: Consultation Date/Type/Reason Admit Date/Time Jul 10, 2016 at 15:03 Type of Consultation: renal 24 HR Interval Summary Constitutional: no complaints Exam/Review of Systems Vital Signs Vitals Vital Signs Date Time Temp Pulse Resp B/P Pulse Ox O2 Delivery O2 Flow Rate FiO2 07/21/16 08:19 98.7 58 18 153/75 94 07/20/16 13:02 Room Air 07/17/16 17:47 21 Intake and Output 07/20/16 07/20/16 07/21/16 15:00 23:00 07:00 Intake Total 660 ml 600 ml Output Total 1255 ml 1100 ml Balance -595 ml -500 ml Exam Constitutional: alert Psych: no complaints Head: normocephalic Respiratory: clear to auscultation, normal air movement Cardiovascular: edema, regular rate and rhythm Gastrointestinal: soft Extremities: edema Results Result Diagram: 07/21/16 0430 07/21/16 0430 Results 24 hrs Laboratory Tests Test 07/20/16 17:24 07/20/16 20:02 07/21/16 04:30 07/21/16 08:12 Bedside Glucose 119 106 119 Anion Gap 16 Basophils # 0.0 Basophils % 0.8 Blood Urea Nitrogen 62 H Calcium Level 7.9 L Carbon Dioxide Level 30 Chloride Level 95 L Creatinine 2.84 H Eosinophils # 0.1 Eosinophils % 2.2 Glucose Level 110 Hematocrit 31.9 L Hemoglobin 10.2 L Lymphocytes # 1.2 Lymphocytes % 31.5 Mean Corpuscular Hemoglobin 27.9 L Mean Corpuscular Hemoglobin Concent 32.0 Mean Corpuscular Volume 87.4 Mean Platelet Volume 9.6 Monocytes # 0.5 Monocytes % 12.2 H Neutrophils # 2.0 Neutrophils % 53.0 Nucleated Red Blood Cells # 0.0 Nucleated Red Blood Cells % 0.0 Platelet Count 244 Potassium Level 4.3 Red Blood Count 3.65 L Red Cell Distribution Width 18.2 H Sodium Level 137 White Blood Count 3.7 L Test 07/21/16 12:18 Bedside Glucose 158 Medications Medications Current Medications Ondansetron HCl (Zofran Inj) 4 mg Q6H PRN IV NAUSEA AND/OR VOMITING Last administered on 07/21/16 10:02; Admin Dose 4 MG; Start 07/10/16 at 17:30 Lorazepam (Ativan) 0.5 mg Q6H PRN IV ANXIETY; Start 07/10/16 at 17:30 Hydralazine HCl (Apresoline) 10 mg Q6H PRN IV ELEVATED BLOOD PRESSURE Last administered on 07/15/16 14:20; Admin Dose 10 MG; Start 07/10/16 at 17:30 Clonidine (Catapres) 0.1 mg Q6H PRN PO ELEVATED BLOOD PRESSURE Last administered on 07/14/16 13:07; Admin Dose 0.1 MG; Start 07/10/16 at 17:30 Nitroglycerin (Nitroglycerin (Sl Tab) 0.4 Mg) 1 tab Q5M PRN SL ANGINA; Start at 17:30 Carvedilol (Coreg) 6.25 mg BID PO Last administered on 07/21/16 09:38; Admin Dose 6.25 MG; Start 07/10/16 at 21:00 Lactobacillus Acidoph/Bulgaricus (Floranex) 1 tab TID PO Last administered on 09:36; Admin Dose 1 TAB; Start 07/10/16 at 21:00 Miscellaneous Information 1 ea NOTE XX ; Start 07/10/16 at 17:30 Glucose (Glutose) 15 gm Q15M PRN PO DECREASED GLUCOSE; Start 07/10/16 at 17:30 Glucose (Glutose) 22.5 gm Q15M PRN PO DECREASED GLUCOSE; Start 07/10/16 at 17: 30 Dextrose (D50w Syringe) 25 ml Q15M PRN IV DECREASED GLUCOSE Last administered on 07/12/16 07:54; Admin Dose 25 ML; Start 07/10/16 at 17:30 Dextrose (D50w Syringe) 50 ml Q15M PRN IV DECREASED GLUCOSE Last administered on 07/11/16 05:05; Admin Dose 50 ML; Start 07/10/16 at 17:30 Glucagon (Glucagen) 1 mg Q15M PRN IM DECREASED GLUCOSE; Start 07/10/16 at 17:30 Glucose (Glutose) 15 gm Q15M PRN BUCCAL DECREASED GLUCOSE; Start 07/10/16 at 17 :30 Finasteride (Proscar) 5 mg DAILY PO Last administered on 07/21/16 09:36; Admin Dose 5 MG; Start 07/13/16 at 09:00 Naloxone HCl (Narcan) 0.2 mg Q2M PRN IV RR 8 BREATHS/MIN OR LESS; Start at 17:00 Fluconazole (Diflucan) 100 mg DAILY PO Last administered on 07/21/16 09:38; Admin Dose 100 MG; Start 07/13/16 at 09:00 Ciprofloxacin HCl (Ciloxan 0.3% Oph) 1 drop TID RIGHT EYE Last administered on 07/21/16 09:35; Admin Dose 1 DROP; Start 07/13/16 at 21:00 Sodium Bicarbonate (Sodium Bicarbonate Tab) 650 mg TID PO Last administered on 07/20/16 21:34; Admin Dose 650 MG; Start 07/14/16 at 10:00 Epoetin Mauricio (Epogen (Esrd)) 10,000 units MoWeFr@17 SC Last administered on 20:56; Admin Dose 10,000 UNITS; Start 07/14/16 at 17:00 Ferrous Sulfate (Ferrous Sulfate (Ec)) 325 mg BID PO Last administered on 09:36; Admin Dose 325 MG; Start 07/14/16 at 21:00 Hydromorphone HCl (Dilaudid) 0.5 mg Q4 PRN IV BREAKTHROUGH PAIN Last administered on 07/21/16 09:38; Admin Dose 0.5 MG; Start 07/14/16 at 17:00 Pantoprazole (Protonix Tab) 40 mg DAILY@06 PO Last administered on 07/21/16 05 :32; Admin Dose 40 MG; Start 07/15/16 at 06:00 Simethicone (Mylicon) 80 mg Q6H PRN GTB DISTENSION/GAS/BLOATING Last administered on 07/15/16 11:24; Admin Dose 80 MG; Start 07/15/16 at 10:30 Docusate Sodium (Colace) 250 mg DAILY PO Last administered on 07/21/16 09:36; Admin Dose 250 MG; Start 07/15/16 at 11:30 Polyethylene Glycol (Miralax) 17 gm DAILY PO Last administered on 07/21/16 09: 38; Admin Dose 17 GM; Start 07/15/16 at 11:30 Tamsulosin HCl (Flomax) 0.4 mg HS PO Last administered on 07/20/16 21:36; Admin Dose 0.4 MG; Start 07/15/16 at 21:00 Rifampin (Rifampin) 600 mg DAILY PO Last administered on 07/21/16 09:36; Admin Dose 600 MG; Start 07/15/16 at 14:00 Hydralazine HCl (Apresoline) 50 mg TID PO Last administered on 07/21/16 09:36 ; Admin Dose 50 MG; Start 07/15/16 at 21:00 Heparin Sodium (Porcine) (Heparin (5000 Units/0.5 ml)) 5,000 unit BID SC Last administered on 07/21/16 09:46; Admin Dose 5,000 UNIT; Start 07/16/16 at 21:00 Oxycodone/ Acetaminophen (Percocet (5/ 325)) 1 tab Q4H PRN PO BREAKTHROUGH PAIN Last administered on 07/19/16 12:44; Admin Dose 1 TAB; Start 07/16/16 at 22:00 Amlodipine Besylate (Norvasc) 5 mg DAILY PO Last administered on 07/21/16 09: 38; Admin Dose 5 MG; Start 07/19/16 at 09:00 Hydralazine HCl 25 mg 25 mg TID PO Last administered on 07/21/16 09:37; Admin Dose 25 MG; Start 07/18/16 at 13:00 Vancomycin HCl (Vancocin) 100 ml @ 100 mls/hr Q48H IVPB Last administered on 17:44; Admin Dose 100 MLS/HR; Start 07/20/16 at 17:00 Neomycin/ Polymyxin/ Hydrocortisone (Cortisporin Otic Susp) 4 drop TID LEFT EAR Last administered on 2/27/17at 09:36; Admin Dose 4 DROP; Start 07/19/16 at 09: 30 Bumetanide (Bumex) 2 mg DAILY PO Last administered on 07/21/16t 09:37; Admin Dose 2 MG; Start 07/21/16 at 09:00 JACOB WHEELER MD Jul 21, 2016 13:34
--- NOTE | 2016-07-21 16:06 | PN ---
Date/Time of Note Date/Time of Note DATE: 07/21/16 TIME: 16:02 Assessment/Plan VTE Prophylaxis VTE Prophylaxis Intervention: SCD's Lines/Catheters IV C[facility]ter Type [facility]from [facility]): PICC Line Central line still needed: Yes Urinary Cath still in place: No Assessment/Plan Chief Complaint/Hosp Course Assessment/Plan: 56-year-old male transferred from outside hospital managed as follows: 1. Sepsis 2/2 Spinal abscess / UTI: resolved 2. Lumbar epidural abscess : MRSA * s/p evacuation 07/12/16 3. Chronic kidney disease r/o ARF 2/2 diuretic therapy - slowly improving, renal team on board. Patient's baseline Cr seems to be about 2.5 4. ? Diabetes type 2 - A1c = 6.4 5. Hypertension: uncontrolled 6. Anemia 2/2 CKD Has received 4 units so far 7. 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 Gastrointestinal prophylaxis; PPIs. Deep venous thrombosis prophylaxis; SCDs. Problems: Subjective 24 Hr Interval Summary Free Text/Dictation Pt seen by renal team, no acute events overnight. Exam/Review of Systems Vital Signs Vitals Vital Signs Date Time Temp Pulse Resp B/P Pulse Ox O2 Delivery O2 Flow Rate FiO2 07/21/16 08:19 98.7 58 18 153/75 94 07/20/16 13:02 Room Air 07/17/16 17:47 21 Intake and Output 07/20/16 07/20/16 07/21/16 15:00 23:00 07:00 Intake Total 660 ml 600 ml Output Total 1255 ml 1100 ml Balance -595 ml -500 ml Exam Constitutional: alert, oriented Head: normocephalic Neck: supple Respiratory: clear to auscultation Cardiovascular: regular rate and rhythm Gastrointestinal: soft Extremities: pitting pedal edema Results Result Diagram: 07/21/16 0430 07/21/16 0430 Results 24 hrs Laboratory Tests Test 07/20/16 17:24 07/20/16 20:02 07/21/16 04:30 07/21/16 08:12 Bedside Glucose 119 106 119 Anion Gap 16 Basophils # 0.0 Basophils % 0.8 Blood Urea Nitrogen 62 H Calcium Level 7.9 L Carbon Dioxide Level 30 Chloride Level 95 L Creatinine 2.84 H Eosinophils # 0.1 Eosinophils % 2.2 Glucose Level 110 Hematocrit 31.9 L Hemoglobin 10.2 L Lymphocytes # 1.2 Lymphocytes % 31.5 Mean Corpuscular Hemoglobin 27.9 L Mean Corpuscular Hemoglobin Concent 32.0 Mean Corpuscular Volume 87.4 Mean Platelet Volume 9.6 Monocytes # 0.5 Monocytes % 12.2 H Neutrophils # 2.0 Neutrophils % 53.0 Nucleated Red Blood Cells # 0.0 Nucleated Red Blood Cells % 0.0 Platelet Count 244 Potassium Level 4.3 Red Blood Count 3.65 L Red Cell Distribution Width 18.2 H Sodium Level 137 White Blood Count 3.7 L Test 07/21/16 12:18 Bedside Glucose 158 Medications Medications Current Medications Ondansetron HCl (Zofran Inj) 4 mg Q6H PRN IV NAUSEA AND/OR VOMITING Last administered on 07/21/16 10:02; Admin Dose 4 MG; Start 07/10/16 at 17:30 Lorazepam (Ativan) 0.5 mg Q6H PRN IV ANXIETY; Start 07/10/16 at 17:30 Hydralazine HCl (Apresoline) 10 mg Q6H PRN IV ELEVATED BLOOD PRESSURE Last administered on 07/15/16 14:20; Admin Dose 10 MG; Start 07/10/16 at 17:30 Clonidine (Catapres) 0.1 mg Q6H PRN PO ELEVATED BLOOD PRESSURE Last administered on 07/14/16 13:07; Admin Dose 0.1 MG; Start 07/10/16 at 17:30 Nitroglycerin (Nitroglycerin (Sl Tab) 0.4 Mg) 1 tab Q5M PRN SL ANGINA; Start at 17:30 Carvedilol (Coreg) 6.25 mg BID PO Last administered on 07/21/16 09:38; Admin Dose 6.25 MG; Start 07/10/16 at 21:00 Lactobacillus Acidoph/Bulgaricus (Floranex) 1 tab TID PO Last administered on 15:12; Admin Dose 1 TAB; Start 07/10/16 at 21:00 Miscellaneous Information 1 ea NOTE XX ; Start 07/10/16 at 17:30 Glucose (Glutose) 15 gm Q15M PRN PO DECREASED GLUCOSE; Start 07/10/16 at 17:30 Glucose (Glutose) 22.5 gm Q15M PRN PO DECREASED GLUCOSE; Start 07/10/16 at 17: 30 Dextrose (D50w Syringe) 25 ml Q15M PRN IV DECREASED GLUCOSE Last administered on 07/12/16 07:54; Admin Dose 25 ML; Start 07/10/16 at 17:30 Dextrose (D50w Syringe) 50 ml Q15M PRN IV DECREASED GLUCOSE Last administered on 07/11/16 05:05; Admin Dose 50 ML; Start 07/10/16 at 17:30 Glucagon (Glucagen) 1 mg Q15M PRN IM DECREASED GLUCOSE; Start 07/10/16 at 17:30 Glucose (Glutose) 15 gm Q15M PRN BUCCAL DECREASED GLUCOSE; Start 07/10/16 at 17 :30 Finasteride (Proscar) 5 mg DAILY PO Last administered on 07/21/16 09:36; Admin Dose 5 MG; Start 07/13/16 at 09:00 Naloxone HCl (Narcan) 0.2 mg Q2M PRN IV RR 8 BREATHS/MIN OR LESS; Start at 17:00 Fluconazole (Diflucan) 100 mg DAILY PO Last administered on 07/21/16 09:38; Admin Dose 100 MG; Start 07/13/16 at 09:00 Ciprofloxacin HCl (Ciloxan 0.3% Oph) 1 drop TID RIGHT EYE Last administered on 07/21/16 15:12; Admin Dose 1 DROP; Start 07/13/16 at 21:00 Sodium Bicarbonate (Sodium Bicarbonate Tab) 650 mg TID PO Last administered on 07/21/16 15:11; Admin Dose 650 MG; Start 07/14/16 at 10:00 Epoetin Mauricio (Epogen (Esrd)) 10,000 units MoWeFr@17 SC Last administered on 20:56; Admin Dose 10,000 UNITS; Start 07/14/16 at 17:00 Ferrous Sulfate (Ferrous Sulfate (Ec)) 325 mg BID PO Last administered on 09:36; Admin Dose 325 MG; Start 07/14/16 at 21:00 Hydromorphone HCl (Dilaudid) 0.5 mg Q4 PRN IV BREAKTHROUGH PAIN Last administered on 07/21/16 15:10; Admin Dose 0.5 MG; Start 07/14/16 at 17:00 Pantoprazole (Protonix Tab) 40 mg DAILY@06 PO Last administered on 07/21/16 05 :32; Admin Dose 40 MG; Start 07/15/16 at 06:00 Simethicone (Mylicon) 80 mg Q6H PRN GTB DISTENSION/GAS/BLOATING Last administered on 07/15/16 11:24; Admin Dose 80 MG; Start 07/15/16 at 10:30 Docusate Sodium (Colace) 250 mg DAILY PO Last administered on 07/21/16 09:36; Admin Dose 250 MG; Start 07/15/16 at 11:30 Polyethylene Glycol (Miralax) 17 gm DAILY PO Last administered on 07/21/16 09: 38; Admin Dose 17 GM; Start 07/15/16 at 11:30 Tamsulosin HCl (Flomax) 0.4 mg HS PO Last administered on 07/20/16 21:36; Admin Dose 0.4 MG; Start 07/15/16 at 21:00 Rifampin (Rifampin) 600 mg DAILY PO Last administered on 07/21/16 09:36; Admin Dose 600 MG; Start 07/15/16 at 14:00 Heparin Sodium (Porcine) (Heparin (5000 Units/0.5 ml)) 5,000 unit BID SC Last administered on 07/21/16 09:46; Admin Dose 5,000 UNIT; Start 07/16/16 at 21:00 Oxycodone/ Acetaminophen 1 tab 1 tab Q4H PRN PO BREAKTHROUGH PAIN Last administered on 07/19/16 12:44; Admin Dose 1 TAB; Start 07/16/16 at 22:00 Vancomycin HCl (Vancocin) 100 ml @ 100 mls/hr Q48H IVPB Last administered on 17:44; Admin Dose 100 MLS/HR; Start 07/20/16 at 17:00 Neomycin/ Polymyxin/ Hydrocortisone (Cortisporin Otic Susp) 4 drop TID LEFT EAR Last administered on 07/21/16 15:12; Admin Dose 4 DROP; Start 07/19/16 at 09: 30 Bumetanide (Bumex) 2 mg DAILY PO Last administered on 07/21/16 09:37; Admin Dose 2 MG; Start 07/21/16 at 09:00 Hydralazine HCl (Apresoline) 75 mg TID PO Last administered on 07/21/16 15:22 ; Admin Dose 75 MG; Start 07/21/16 at 13:30 Calcitriol (Rocaltrol) 0.25 mcg DAILY PO ; Start 07/21/16 at 15:00 Miscellaneous Information (*Rx Drug Level Order Reminder*) VANCOMYCIN TROUGH AT 1600 ONCE ONCE XX ; Start 07/22/16 at 16:00; Stop 07/22/16 at 16:01 PHANI REYES Jul 21, 2016 16:06
[2016-07-21] MEDS: CALCITRIOL 0.25 MCG CAP PO SCH (17:29)
[2016-07-21] MEDS: CALCIUM ACETATE 667 MG CAP PO SCH (17:29)
[2016-07-21 19:40] VITALS: BP 146/82; RESP 16
[2016-07-21] MEDS: TAMSULOSIN (SR) 0.4 MG CAP PO SCH (20:30)
[2016-07-21] MEDS: EPOETIN 10000 UNITS/1 ML INJ (ESRD) SC SCH (20:30)
[2016-07-22] MEDS: HYDROmorphONE 1 MG/ML SYG IV PRN ×5 (03:34→21:12)
[2016-07-22 05:04] LABS: ADD SCAN DIFF NO
[2016-07-22 05:18] LABS: EOSINOPHILS # 0.1 10^3/ul (0.0-0.5); EOSINOPHILS % 3.2 % (0.0-7.0); HEMATOCRIT 32.3 % (42.0-52.0); HEMOGLOBIN 10.4 g/dl (14.0-18.0); LYMPHOCYTES # 1.1 10^3/ul (0.8-2.9); LYMPHOCYTES % 35.1 % (15.0-51.0); MEAN CORPUSCULAR HEMOGLOBIN 28.3 pg (29.0-33.0); MEAN CORPUSCULAR HGB CONC 32.2 g/dl (32.0-37.0); MEAN CORPUSCULAR VOLUME 87.8 fl (82.0-101.0); MEAN PLATELET VOLUME 9.1 fl (7.4-10.4); MONOCYTE # 0.4 10^3/ul (0.3-0.9); MONOCYTES % 13.6 % (0.0-11.0); NEUTROPHIL # 1.4 10^3/ul (1.6-7.5); NEUTROPHILS % 46.8 % (39.0-77.0); PLATELET COUNT 247 10^3/UL (140-415); RED BLOOD COUNT 3.68 10^6/ul (4.70-6.10); RED CELL DISTRIBUTION WIDTH 18.4 % (11.5-14.5); WHITE BLOOD COUNT 3.1 10^3/ul (4.8-10.8)
[2016-07-22] MEDS: PANTOPRAZOLE (EC) 40 MG TAB PO SCH (05:20)
[2016-07-22 05:50] LABS: ALBUMIN 2.7 g/dl (3.3-4.9)
[2016-07-22 05:51] LABS: POTASSIUM 4.5 mmol/L (3.5-5.1)
[2016-07-22 05:53] LABS: ALBUMIN/GLOBULIN RATIO 0.6; BILIRUBIN,INDIRECT 0.2 mg/dl (0-1.1); BILIRUBIN,TOTAL 0.2 mg/dl (0.2-1.3); CREATININE 2.92 mg/dl (0.61-1.24); TOTAL PROTEIN 7.2 g/dl (6.1-8.1)
[2016-07-22] MEDS: INSULIN ASPART [NOVOLOG] 3 ML PEN SC SCH ×4 (07:30→20:22)
[2016-07-22] MEDS: ONDANSETRON 4 MG INJ IV PRN ×3 (08:10→21:12)
[2016-07-22] MEDS: NEOMYC/POLYMYX/HC 10 ML OTIC SUSP LEFT EAR SCH ×3 (08:11→20:19)
[2016-07-22] MEDS: CIPROFLOXACIN 0.3% 2.5 ML OPH RIGHT EYE SCH ×3 (08:11→20:25)
[2016-07-22] MEDS: FERROUS SULFATE (EC) 325 MG TAB PO SCH ×2 (08:11→20:18)
[2016-07-22] MEDS: FLUCONAZOLE 100 MG TAB PO SCH (08:11)
[2016-07-22] MEDS: LACTOBACILLUS CHEW TAB PO SCH ×3 (08:11→20:18)
[2016-07-22] MEDS: CALCIUM ACETATE 667 MG CAP PO SCH ×3 (08:11→17:03)
[2016-07-22] MEDS: FINASTERIDE 5 MG TAB PO SCH (08:12)
[2016-07-22] MEDS: DOCUSATE SODIUM 250 MG CAP PO SCH (08:12)
[2016-07-22] MEDS: CALCITRIOL 0.25 MCG CAP PO SCH (08:12)
[2016-07-22] MEDS: BUMETANIDE 1 MG TAB PO SCH (08:12)
[2016-07-22] MEDS: NA BICARBONATE 650 MG TAB PO SCH ×3 (08:12→20:18)
[2016-07-22 08:19] VITALS: BP 170/82; RESP 21
[2016-07-22] MEDS: HEPARIN 5,000 UNIT/0.5 ML SYG SC SCH ×2 (08:21→20:21)
[2016-07-22] MEDS: POLYETHYLENE GLYCOL 17 GM PACKET PO SCH (08:33)
[2016-07-22] MEDS: RIFAMPIN 300 MG CAP PO SCH (08:33)
--- NOTE | 2016-07-22 12:57 | CONS ---
Date/Time of Note Date/Time of Note DATE: 07/22/16 TIME: 12:51 Assessment/Plan Assessment/Plan Chief Complaint/Hosp Course SUBJECTIVE: No events overnight. Sleeping, looks comfortable. No fevers MICROBIOLOGY: Urine culture grew Enterobacter aerogenes and Katharina glabrata on admission. Lumbar culture growing MRSA, susceptible to vancomycin, clindamycin, rifampin, Bactrim. Anaerobic cultures had been negative. Indwelling: PICC ANTIMICROBIALS: Rifampin, IV vancomycin. PHYSICAL EXAMINATION: GENERAL: Well-developed, middle-aged man who is alert, in no distress. HEENT: Head atraumatic, normocephalic. Sclerae anicteric. Buccal mucosa dry. NECK: Supple. CHEST: Rise symmetrical. Breath sounds diminished to bases. HEART: S1, S2. ABDOMEN: Soft, bowel sounds present. EXTREMITIES: Without cyanosis. ASSESSMENT: 1. Lumbar diskitis, osteomyelitis, Methicillin-resistant Staphylococcus aureus psoas abscess, status post decompressive laminectomy with evacuation of abscess on 07/12/2016. 2. Chronic kidney disease. 3. Status post urinary tract infection. 4. Diabetes. 5. Hypertension. 6. Urinary retention PLAN: Remains stable, continue abx till September 07, may change Vanco to Daptomycin if renal f-n deteriorates, f/u ortho/renal rec-s [facility] staff Problems: Consultation Date/Type/Reason Admit Date/Time Jul 10, 2016 at 15:03 Type of Consultation: id Exam/Review of Systems Vital Signs Vitals Vital Signs Date Time Temp Pulse Resp B/P Pulse Ox O2 Delivery O2 Flow Rate FiO2 07/22/16 08:19 98.4 58 21 170/82 94 07/20/16 13:02 Room Air Intake and Output 07/21/16 07/21/16 07/22/16 15:00 23:00 07:00 Intake Total 1160 ml 550 ml Output Total 1400 ml 1400 ml Balance -240 ml -850 ml Results Result Diagram: 07/22/1641907/22/16 042 Results 24 hrs Laboratory Tests Test 07/21/16 17:31 07/21/16 20:06 07/22/16 01:50 07/22/16 04:20 Bedside Glucose 138 178 159 Alanine Aminotransferase (ALT/SGPT) 20 Albumin 2.7 L Albumin/Globulin Ratio 0.60 Alkaline Phosphatase 109 Anion Gap 16 Aspartate Amino Transf (AST/SGOT) 13 L Basophils # 0.0 Basophils % 1.0 Blood Urea Nitrogen 62 H Calcium Level 8.0 L Carbon Dioxide Level 32 H Chloride Level 95 L Creatinine 2.92 H Direct Bilirubin 0.00 Eosinophils # 0.1 Eosinophils % 3.2 Globulin 4.50 H Glucose Level 146 Hematocrit 32.3 L Hemoglobin 10.4 L Indirect Bilirubin 0.2 Lymphocytes # 1.1 Lymphocytes % 35.1 Mean Corpuscular Hemoglobin 28.3 L Mean Corpuscular Hemoglobin Concent 32.2 Mean Corpuscular Volume 87.8 Mean Platelet Volume 9.1 Monocytes # 0.4 Monocytes % 13.6 H Neutrophils # 1.4 L Neutrophils % 46.8 Nucleated Red Blood Cells # 0.0 Nucleated Red Blood Cells % 0.0 Platelet Count 247 Potassium Level 4.5 Red Blood Count 3.68 L Red Cell Distribution Width 18.4 H Sodium Level 138 Total Bilirubin 0.2 Total Protein 7.2 White Blood Count 3.1 L Test 07/22/16 07:48 07/22/16 12:04 Bedside Glucose 127 141 Medications Medications Current Medications Ondansetron HCl (Zofran Inj) 4 mg Q6H PRN IV NAUSEA AND/OR VOMITING Last administered on 07/22/16 12:36; Admin Dose 4 MG; Start 07/10/16 at 17:30 Lorazepam (Ativan) 0.5 mg Q6H PRN IV ANXIETY; Start 07/10/16 at 17:30 Hydralazine HCl (Apresoline) 10 mg Q6H PRN IV ELEVATED BLOOD PRESSURE Last administered on 07/15/16 14:20; Admin Dose 10 MG; Start 07/10/16 at 17:30 Clonidine (Catapres) 0.1 mg Q6H PRN PO ELEVATED BLOOD PRESSURE Last administered on 07/14/16 13:07; Admin Dose 0.1 MG; Start 07/10/16 at 17:30 Nitroglycerin (Nitroglycerin (Sl Tab) 0.4 Mg) 1 tab Q5M PRN SL ANGINA; Start at 17:30 Carvedilol (Coreg) 6.25 mg BID PO Last administered on 07/22/16 08:26; Admin Dose 6.25 MG; Start 07/10/16 at 21:00 Lactobacillus Acidoph/Bulgaricus (Floranex) 1 tab TID PO Last administered on 12:14; Admin Dose 1 TAB; Start 07/10/16 at 21:00 Miscellaneous Information 1 ea NOTE XX ; Start 07/10/16 at 17:30 Glucose (Glutose) 15 gm Q15M PRN PO DECREASED GLUCOSE; Start 07/10/16 at 17:30 Glucose (Glutose) 22.5 gm Q15M PRN PO DECREASED GLUCOSE; Start 07/10/16 at 17: 30 Dextrose (D50w Syringe) 25 ml Q15M PRN IV DECREASED GLUCOSE Last administered on 07/12/16 07:54; Admin Dose 25 ML; Start 07/10/16 at 17:30 Dextrose (D50w Syringe) 50 ml Q15M PRN IV DECREASED GLUCOSE Last administered on 07/11/16 05:05; Admin Dose 50 ML; Start 07/10/16 at 17:30 Glucagon (Glucagen) 1 mg Q15M PRN IM DECREASED GLUCOSE; Start 07/10/16 at 17:30 Glucose (Glutose) 15 gm Q15M PRN BUCCAL DECREASED GLUCOSE; Start 07/10/16 at 17 :30 Finasteride (Proscar) 5 mg DAILY PO Last administered on 07/22/16 08:12; Admin Dose 5 MG; Start 07/13/16 at 09:00 Naloxone HCl (Narcan) 0.2 mg Q2M PRN IV RR 8 BREATHS/MIN OR LESS; Start at 17:00 Fluconazole (Diflucan) 100 mg DAILY PO Last administered on 07/22/16 08:11; Admin Dose 100 MG; Start 07/13/16 at 09:00 Ciprofloxacin HCl (Ciloxan 0.3% Oph) 1 drop TID RIGHT EYE Last administered on 07/22/16 12:11; Admin Dose 1 DROP; Start 07/13/16 at 21:00 Sodium Bicarbonate (Sodium Bicarbonate Tab) 650 mg TID PO Last administered on 07/22/16 12:14; Admin Dose 650 MG; Start 07/14/16 at 10:00 Epoetin Mauricio (Epogen (Esrd)) 10,000 units MoWeFr@17 SC Last administered on 20:30; Admin Dose 10,000 UNITS; Start 07/14/16 at 17:00 Ferrous Sulfate (Ferrous Sulfate (Ec)) 325 mg BID PO Last administered on 08:11; Admin Dose 325 MG; Start 07/14/16 at 21:00 Hydromorphone HCl (Dilaudid) 0.5 mg Q4 PRN IV BREAKTHROUGH PAIN Last administered on 07/22/16 12:37; Admin Dose 0.5 MG; Start 07/14/16 at 17:00 Pantoprazole (Protonix Tab) 40 mg DAILY@06 PO Last administered on 07/21/16 05 :32; Admin Dose 40 MG; Start 07/15/16 at 06:00 Simethicone (Mylicon) 80 mg Q6H PRN GTB DISTENSION/GAS/BLOATING Last administered on 07/15/16 11:24; Admin Dose 80 MG; Start 07/15/16 at 10:30 Docusate Sodium (Colace) 250 mg DAILY PO Last administered on 07/22/16 08:12; Admin Dose 250 MG; Start 07/15/16 at 11:30 Polyethylene Glycol (Miralax) 17 gm DAILY PO Last administered on 07/22/16 08: 33; Admin Dose 17 GM; Start 07/15/16 at 11:30 Tamsulosin HCl (Flomax) 0.4 mg HS PO Last administered on 07/21/16 20:30; Admin Dose 0.4 MG; Start 07/15/16 at 21:00 Rifampin (Rifampin) 600 mg DAILY PO Last administered on 07/22/16 08:33; Admin Dose 600 MG; Start 07/15/16 at 14:00 Heparin Sodium (Porcine) (Heparin (5000 Units/0.5 ml)) 5,000 unit BID SC Last administered on 07/22/16 08:21; Admin Dose 5,000 UNIT; Start 07/16/16 at 21:00 Oxycodone/ Acetaminophen 1 tab 1 tab Q4H PRN PO BREAKTHROUGH PAIN Last administered on 07/19/16 12:44; Admin Dose 1 TAB; Start 07/16/16 at 22:00 Vancomycin HCl (Vancocin) 100 ml @ 100 mls/hr Q48H IVPB Last administered on 17:44; Admin Dose 100 MLS/HR; Start 07/20/16 at 17:00 Neomycin/ Polymyxin/ Hydrocortisone (Cortisporin Otic Susp) 4 drop TID LEFT EAR Last administered on 07/22/16 12:11; Admin Dose 4 DROP; Start 07/19/16 at 09: 30 Bumetanide (Bumex) 2 mg DAILY PO Last administered on 07/22/16 08:12; Admin Dose 2 MG; Start 07/21/16 at 09:00 Hydralazine HCl (Apresoline) 75 mg TID PO Last administered on 07/22/16 12:17 ; Admin Dose 75 MG; Start 07/21/16 at 13:30 Calcitriol (Rocaltrol) 0.25 mcg DAILY PO Last administered on 07/22/16 08:12; Admin Dose 0.25 MCG; Start 07/21/16 at 15:00 Miscellaneous Information (*Rx Drug Level Order Reminder*) VANCOMYCIN TROUGH AT 1600 ONCE ONCE XX ; Start 07/22/16 at 16:00; Stop 07/22/16 at 16:01 DORENE GARCIA NP Jul 22, 2016 12:57
[2016-07-22] MEDS ORDERED: CARV6.2579 PO (13:21)
[2016-07-22] MEDS ORDERED: APR50 PO (13:21)
[2016-07-22] MEDS ORDERED: ACID1TAB14 PO (13:21)
[2016-07-22] MEDS ORDERED: FER325 PO (13:21)
[2016-07-22] MEDS ORDERED: Vancomycin Iv Per Pharmacy XX (13:23)
[2016-07-22] MEDS ORDERED: MYL80 GTB (13:23)
[2016-07-22] MEDS ORDERED: RIF120L PO (13:23)
[2016-07-22] MEDS ORDERED: PANT40TA3 PO (13:30)
--- NOTE | 2016-07-22 13:54 | DS ---
DATE OF ADMISSION: 07/10/2016 DATE OF DISCHARGE: 07/22/2016 HOSPITAL COURSE: A 56-year-old male originally admitted on 07/10/2016 being discharged home on 06/26. The patient initially came in after being transferred from outside hospital for spinal abs cess. He also had sepsis and UTI. He was admitted, seen by multiple specialists during this hospit al stay including neurosurgery team, renal team, infectious disease team, physical therapy team. Th e patient was found with lumbar epidural abscess positive for MRSA. He had evacuation surgery, I an d D performed by neurosurgery team on 07/12/2016. Afterwards, patient was placed on IV antibiotics. Again, his cultures did grow MRSA and he was placed on appropriate antibiotics. Infectious diseas e helped us manage that. He also has a history of chronic kidney disease and had acute on chronic r enal insufficiency. He was seen by renal team for that. He was given diuretics for some mild anasa rca as well as blood pressure medicines to help control his blood pressure better. Over the course of his hospital stay, the patient worked with physical therapy, slowly improved. His renal function slowly improved, although his creatinine was still elevated by the time of discharge, but he was raymond ving adequate urine output. As far as his infection, his white blood cell count remained stable. C . diff test was performed, it was negative. Again, his wound culture did grow MRSA, he was placed o n appropriate antibiotics for that. He was able to ambulate and tolerate a p.o. diet. After ti [place] clearance from the clinical practice consultant teams, patient will be discharged home today in improved condition. DISCHARGE MEDICATIONS: He will be sent with the following medications: 1. Coreg 6.25 mg b.i.d. 2. Ferrous sulfate 325 mg b.i.d. 3. Hydralazine 75 mg t.i.d. 4. Floranex 1 tab p.o. t.i.d. 5. Rifampin 600 mg p.o. daily for 60 days, then stop. 6. Simethicone 80 mg q.6h. p.r.n. 7. Vancomycin IV dosing per pharmacy for another 60 days, then stop. 8. Bumex 1 mg daily. 9. Vitamin D2 50,000 units as well. 10. Finasteride 5 mg daily. 11. Ativan 0.5 mg q.6h. p.r.n. 12. Protonix 40 mg p.o. daily. 13. Flomax 0.4 mg daily. FOLLOWUP: He will need to follow up with neurosurgery team, renal team and possibly infectious dise ase team in the clinic in the next 1 to 2 weeks. FINAL DIAGNOSES: 1. Sepsis secondary to combination of spinal abscess and urinary tract infection, now resolved. 2. Lumbar epidural abscess, status post evacuation procedure performed by neurosurgery on 7. 3. Acute on chronic kidney disease, now improving. 4. Type 2 diabetes. A1c 6.4. 5. Essential hypertension. 6. Anemia secondary to chronic kidney disease. 7. 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 8. Lumbar diskitis with osteomyelitis and abscess as mentioned above, status post surgical interven tion as mentioned above. 9. Right eye conjunctivitis, improved. 10. Urinary tract infection, improved. Time spent discharging the patient 45 minutes. Dictated By: PHANI STOVALL Conf#: [id number] DID#: [id number]
[2016-07-22] MEDS: VANCOMYCIN 500MG/NS (PMX) 100 ML IVPB SCH (18:42)
--- NOTE | 2016-07-22 19:48 | CONS ---
Date/Time of Note Date/Time of Note DATE: 07/22/16 TIME: 19:40 Assessment/Plan Assessment/Plan Chief Complaint/Hosp Course 1. He is now 10 days post op a lumbar laminectomy at the L2 L3 level with a drainage of an abscess , the abscess is growing MRSA and he is on appropriate antibiotics ,. He is feeling better with less back pain . 2. CKD , nephrotic syndrome , diabetic nephropathy . his renal function is the same . 3. anemia , he is on Epogen . 4. edema , he is on Bumex . 5. HTN, BP is high , I will increase hydralazine . I stopped the amlodipine in view of edema ; however , I may need to restart if BP remains elevated . Problems: Consultation Date/Type/Reason Admit Date/Time Jul 10, 2016 at 15:03 Type of Consultation: id 24 HR Interval Summary Free Text/Dictation He is feeling better . He is having less back pain . Constitutional: improved Exam/Review of Systems Vital Signs Vitals Vital Signs Date Time Temp Pulse Resp B/P Pulse Ox O2 Delivery O2 Flow Rate FiO2 07/22/16 08:19 98.4 58 21 170/82 94 07/20/16 13:02 Room Air Intake and Output 07/21/16 07/21/16 07/22/16 15:00 23:00 07:00 Intake Total 1160 ml 550 ml Output Total 1400 ml 1400 ml Balance -240 ml -850 ml Exam Constitutional: alert Respiratory: clear to auscultation, normal air movement Cardiovascular: regular rate and rhythm Gastrointestinal: soft Extremities: edema Results Result Diagram: 07/22/16 0420 07/22/16 0420 Results 24 hrs Laboratory Tests Test 07/21/16 20:06 07/22/16 01:50 07/22/16 04:20 07/22/16 07:48 Bedside Glucose 178 159 127 Alanine Aminotransferase (ALT/SGPT) 20 Albumin 2.7 L Albumin/Globulin Ratio 0.60 Alkaline Phosphatase 109 Anion Gap 16 Aspartate Amino Transf (AST/SGOT) 13 L Basophils # 0.0 Basophils % 1.0 Blood Urea Nitrogen 62 H Calcium Level 8.0 L Carbon Dioxide Level 32 H Chloride Level 95 L Creatinine 2.92 H Direct Bilirubin 0.00 Eosinophils # 0.1 Eosinophils % 3.2 Globulin 4.50 H Glucose Level 146 Hematocrit 32.3 L Hemoglobin 10.4 L Indirect Bilirubin 0.2 Lymphocytes # 1.1 Lymphocytes % 35.1 Mean Corpuscular Hemoglobin 28.3 L Mean Corpuscular Hemoglobin Concent 32.2 Mean Corpuscular Volume 87.8 Mean Platelet Volume 9.1 Monocytes # 0.4 Monocytes % 13.6 H Neutrophils # 1.4 L Neutrophils % 46.8 Nucleated Red Blood Cells # 0.0 Nucleated Red Blood Cells % 0.0 Platelet Count 247 Potassium Level 4.5 Red Blood Count 3.68 L Red Cell Distribution Width 18.4 H Sodium Level 138 Total Bilirubin 0.2 Total Protein 7.2 White Blood Count 3.1 L Test 07/22/16 12:04 07/22/16 16:30 07/22/16 17:03 Bedside Glucose 141 154 Vancomycin Level Trough 17.6 Medications Medications Current Medications Ondansetron HCl (Zofran Inj) 4 mg Q6H PRN IV NAUSEA AND/OR VOMITING Last administered on 07/22/16 12:36; Admin Dose 4 MG; Start 07/10/16 at 17:30 Lorazepam (Ativan) 0.5 mg Q6H PRN IV ANXIETY; Start 07/10/16 at 17:30 Hydralazine HCl (Apresoline) 10 mg Q6H PRN IV ELEVATED BLOOD PRESSURE Last administered on 07/15/16 14:20; Admin Dose 10 MG; Start 07/10/16 at 17:30 Clonidine (Catapres) 0.1 mg Q6H PRN PO ELEVATED BLOOD PRESSURE Last administered on 07/14/16 13:07; Admin Dose 0.1 MG; Start 07/10/16 at 17:30 Nitroglycerin (Nitroglycerin (Sl Tab) 0.4 Mg) 1 tab Q5M PRN SL ANGINA; Start at 17:30 Carvedilol (Coreg) 6.25 mg BID PO Last administered on 07/22/16 08:26; Admin Dose 6.25 MG; Start 07/10/16 at 21:00 Lactobacillus Acidoph/Bulgaricus (Floranex) 1 tab TID PO Last administered on 12:14; Admin Dose 1 TAB; Start 07/10/16 at 21:00 Miscellaneous Information 1 ea NOTE XX ; Start 07/10/16 at 17:30 Glucose (Glutose) 15 gm Q15M PRN PO DECREASED GLUCOSE; Start 07/10/16 at 17:30 Glucose (Glutose) 22.5 gm Q15M PRN PO DECREASED GLUCOSE; Start 07/10/16 at 17: 30 Dextrose (D50w Syringe) 25 ml Q15M PRN IV DECREASED GLUCOSE Last administered on 07/12/16 07:54; Admin Dose 25 ML; Start 07/10/16 at 17:30 Dextrose (D50w Syringe) 50 ml Q15M PRN IV DECREASED GLUCOSE Last administered on 07/11/16 05:05; Admin Dose 50 ML; Start 07/10/16 at 17:30 Glucagon (Glucagen) 1 mg Q15M PRN IM DECREASED GLUCOSE; Start 07/10/16 at 17:30 Glucose (Glutose) 15 gm Q15M PRN BUCCAL DECREASED GLUCOSE; Start 07/10/16 at 17 :30 Finasteride (Proscar) 5 mg DAILY PO Last administered on 07/22/16 08:12; Admin Dose 5 MG; Start 07/13/16 at 09:00 Naloxone HCl (Narcan) 0.2 mg Q2M PRN IV RR 8 BREATHS/MIN OR LESS; Start at 17:00 Fluconazole (Diflucan) 100 mg DAILY PO Last administered on 07/22/16 08:11; Admin Dose 100 MG; Start 07/13/16 at 09:00 Ciprofloxacin HCl (Ciloxan 0.3% Oph) 1 drop TID RIGHT EYE Last administered on 07/22/16 12:11; Admin Dose 1 DROP; Start 07/13/16 at 21:00 Sodium Bicarbonate (Sodium Bicarbonate Tab) 650 mg TID PO Last administered on 07/22/16 12:14; Admin Dose 650 MG; Start 07/14/16 at 10:00 Epoetin Mauricio (Epogen (Esrd)) 10,000 units MoWeFr@17 SC Last administered on 20:30; Admin Dose 10,000 UNITS; Start 07/14/16 at 17:00 Ferrous Sulfate (Ferrous Sulfate (Ec)) 325 mg BID PO Last administered on 08:11; Admin Dose 325 MG; Start 07/14/16 at 21:00 Hydromorphone HCl (Dilaudid) 0.5 mg Q4 PRN IV BREAKTHROUGH PAIN Last administered on 07/22/16 16:59; Admin Dose 0.5 MG; Start 07/14/16 at 17:00 Pantoprazole (Protonix Tab) 40 mg DAILY@06 PO Last administered on 07/21/16 05 :32; Admin Dose 40 MG; Start 07/15/16 at 06:00 Simethicone (Mylicon) 80 mg Q6H PRN GTB DISTENSION/GAS/BLOATING Last administered on 07/15/16 11:24; Admin Dose 80 MG; Start 07/15/16 at 10:30 Docusate Sodium (Colace) 250 mg DAILY PO Last administered on 07/22/16 08:12; Admin Dose 250 MG; Start 07/15/16 at 11:30 Polyethylene Glycol (Miralax) 17 gm DAILY PO Last administered on 07/22/16 08: 33; Admin Dose 17 GM; Start 07/15/16 at 11:30 Tamsulosin HCl (Flomax) 0.4 mg HS PO Last administered on 07/21/16 20:30; Admin Dose 0.4 MG; Start 07/15/16 at 21:00 Rifampin (Rifampin) 600 mg DAILY PO Last administered on 07/22/16 08:33; Admin Dose 600 MG; Start 07/15/16 at 14:00 Heparin Sodium (Porcine) (Heparin (5000 Units/0.5 ml)) 5,000 unit BID SC Last administered on 07/22/16 08:21; Admin Dose 5,000 UNIT; Start 07/16/16 at 21:00 Oxycodone/ Acetaminophen (Percocet (5/ 325)) 1 tab Q4H PRN PO BREAKTHROUGH PAIN Last administered on 07/19/16 12:44; Admin Dose 1 TAB; Start 07/16/16 at 22:00 Neomycin/ Polymyxin/ Hydrocortisone (Cortisporin Otic Susp) 4 drop TID LEFT EAR Last administered on 07/22/16 12:11; Admin Dose 4 DROP; Start 07/19/16 at 09: 30 Bumetanide (Bumex) 2 mg DAILY PO Last administered on 07/22/16 08:12; Admin Dose 2 MG; Start 07/21/16 at 09:00 Hydralazine HCl (Apresoline) 75 mg TID PO Last administered on 07/22/16 12:17 ; Admin Dose 75 MG; Start 07/21/16 at 13:30 Calcitriol 0.25 mcg 0.25 mcg DAILY PO Last administered on 07/22/16 08:12; Admin Dose 0.25 MCG; Start 07/21/16 at 15:00 Vancomycin HCl/ Sodium Chloride (Vancocin/NS) 100 ml @ 100 mls/hr Q48H IVPB ; Start 07/24/16 at 20:00 JACOB WHEELER MD Jul 22, 2016 19:48
[2016-07-22 20:08] VITALS: BP 189/97; RESP 18
[2016-07-22] MEDS: TAMSULOSIN (SR) 0.4 MG CAP PO SCH (20:18)
[2016-07-22] MEDS: hydrALAzine 20 MG INJ IV PRN (20:18)
[2016-07-22 22:16] VITALS: BP 127/72
[2016-07-23] MEDS: HYDROmorphONE 1 MG/ML SYG IV PRN ×6 (01:11→21:43)
[2016-07-23] MEDS: PANTOPRAZOLE (EC) 40 MG TAB PO SCH (05:28)
[2016-07-23 06:15] LABS: ALBUMIN 2.6 g/dl (3.3-4.9); POTASSIUM 4.6 mmol/L (3.5-5.1)
[2016-07-23 06:18] LABS: ALBUMIN/GLOBULIN RATIO 0.6; CALCIUM 8.1 mg/dl (8.4-10.2); CREATININE 2.65 mg/dl (0.61-1.24); TOTAL PROTEIN 6.9 g/dl (6.1-8.1)
[2016-07-23] MEDS: INSULIN ASPART [NOVOLOG] 3 ML PEN SC SCH ×4 (07:30→20:25)
[2016-07-23 07:50] VITALS: BP 173/95; RESP 16
[2016-07-23] MEDS: HEPARIN 5,000 UNIT/0.5 ML SYG SC SCH ×2 (08:11→20:26)
[2016-07-23] MEDS: LACTOBACILLUS CHEW TAB PO SCH ×3 (08:12→20:22)
[2016-07-23] MEDS: CALCIUM ACETATE 667 MG CAP PO SCH ×3 (08:12→17:27)
[2016-07-23] MEDS: POLYETHYLENE GLYCOL 17 GM PACKET PO SCH (08:12)
[2016-07-23] MEDS: BUMETANIDE 1 MG TAB PO SCH (08:13)
[2016-07-23] MEDS: FERROUS SULFATE (EC) 325 MG TAB PO SCH ×2 (08:14→20:22)
[2016-07-23] MEDS: NA BICARBONATE 650 MG TAB PO SCH ×3 (08:14→20:22)
[2016-07-23] MEDS: RIFAMPIN 300 MG CAP PO SCH (08:14)
[2016-07-23] MEDS: DOCUSATE SODIUM 250 MG CAP PO SCH (08:14)
[2016-07-23] MEDS: FLUCONAZOLE 100 MG TAB PO SCH (08:15)
[2016-07-23] MEDS: FINASTERIDE 5 MG TAB PO SCH (08:15)
[2016-07-23] MEDS: CIPROFLOXACIN 0.3% 2.5 ML OPH RIGHT EYE SCH ×3 (08:15→20:23)
[2016-07-23] MEDS: CALCITRIOL 0.25 MCG CAP PO SCH (08:15)
[2016-07-23] MEDS: ONDANSETRON 4 MG INJ IV PRN (09:24)
[2016-07-23] MEDS: NEOMYC/POLYMYX/HC 10 ML OTIC SUSP LEFT EAR SCH ×3 (09:36→20:21)
--- NOTE | 2016-07-23 14:23 | CONS ---
Date/Time of Note Date/Time of Note DATE: 07/23/16 TIME: 14:10 Assessment/Plan Assessment/Plan Chief Complaint/Hosp Course 1. He is now 10 days post op a lumbar laminectomy at the L2 L3 level with a drainage of an abscess , the abscess is growing MRSA and he is on appropriate antibiotics ,. He is feeling better with less back pain . 2. CKD , nephrotic syndrome , diabetic nephropathy . his renal function is the same . 3. anemia , he is on Epogen . 4. edema , he is on Bumex . 5. HTN, BP is high , he is on maximum dose of hydralazine , will restart amlodipine 6. he is c/o bilateral decrease in hearing , I am concerned about him being on vancomycin , will d/c vancomycin for now . Problems: Consultation Date/Type/Reason Admit Date/Time Jul 10, 2016 at 15:03 Type of Consultation: renal 24 HR Interval Summary Free Text/Dictation He c/o decreased hearing and feeling like he has water in his ears Exam/Review of Systems Vital Signs Vitals Vital Signs Date Time Temp Pulse Resp B/P Pulse Ox O2 Delivery O2 Flow Rate FiO2 07/23/16 07:50 98.2 61 16 173/95 94 07/20/16 13:02 Room Air Intake and Output 07/22/16 07/22/16 07/23/16 15:00 23:00 07:00 Intake Total 1020 ml 300 ml Output Total 1000 ml 600 ml Balance 20 ml -300 ml Exam Head: normocephalic Neck: supple Respiratory: clear to auscultation Cardiovascular: regular rate and rhythm Gastrointestinal: soft, tender Extremities: edema Results Result Diagram: 07/22/16 0420 07/23/16 0431 Results 24 hrs Laboratory Tests Test 07/22/16 16:30 07/22/16 17:03 07/22/16 20:07 07/23/16 04:31 Vancomycin Level Trough 17.6 Bedside Glucose 154 201 Alanine Aminotransferase (ALT/SGPT) 20 Albumin 2.6 L Albumin/Globulin Ratio 0.60 Alkaline Phosphatase 101 Anion Gap 14 Aspartate Amino Transf (AST/SGOT) 12 L Blood Urea Nitrogen 56 H Calcium Level 8.1 L Carbon Dioxide Level 33 H Chloride Level 96 L Creatinine 2.65 H Direct Bilirubin 0.00 Globulin 4.30 H Glucose Level 118 Indirect Bilirubin 0.0 Potassium Level 4.6 Sodium Level 138 Total Bilirubin 0.0 L Total Protein 6.9 Test 07/23/16 07:36 07/23/16 11:38 Bedside Glucose 109 141 Medications Medications Current Medications Ondansetron HCl (Zofran Inj) 4 mg Q6H PRN IV NAUSEA AND/OR VOMITING Last administered on 07/23/16 09:24; Admin Dose 4 MG; Start 07/10/16 at 17:30 Lorazepam (Ativan) 0.5 mg Q6H PRN IV ANXIETY; Start 07/10/16 at 17:30 Hydralazine HCl (Apresoline) 10 mg Q6H PRN IV ELEVATED BLOOD PRESSURE Last administered on 07/22/16 20:18; Admin Dose 10 MG; Start 07/10/16 at 17:30 Clonidine (Catapres) 0.1 mg Q6H PRN PO ELEVATED BLOOD PRESSURE Last administered on 07/14/16 13:07; Admin Dose 0.1 MG; Start 07/10/16 at 17:30 Nitroglycerin (Nitroglycerin (Sl Tab) 0.4 Mg) 1 tab Q5M PRN SL ANGINA; Start at 17:30 Carvedilol (Coreg) 6.25 mg BID PO Last administered on 07/23/16 08:15; Admin Dose 6.25 MG; Start 07/10/16 at 21:00 Lactobacillus Acidoph/Bulgaricus (Floranex) 1 tab TID PO Last administered on 12:06; Admin Dose 1 TAB; Start 07/10/16 at 21:00 Miscellaneous Information 1 ea NOTE XX ; Start 07/10/16 at 17:30 Glucose (Glutose) 15 gm Q15M PRN PO DECREASED GLUCOSE; Start 07/10/16 at 17:30 Glucose (Glutose) 22.5 gm Q15M PRN PO DECREASED GLUCOSE; Start 07/10/16 at 17: 30 Dextrose (D50w Syringe) 25 ml Q15M PRN IV DECREASED GLUCOSE Last administered on 07/12/16 07:54; Admin Dose 25 ML; Start 07/10/16 at 17:30 Dextrose (D50w Syringe) 50 ml Q15M PRN IV DECREASED GLUCOSE Last administered on 07/11/16 05:05; Admin Dose 50 ML; Start 07/10/16 at 17:30 Glucagon (Glucagen) 1 mg Q15M PRN IM DECREASED GLUCOSE; Start 07/10/16 at 17:30 Glucose (Glutose) 15 gm Q15M PRN BUCCAL DECREASED GLUCOSE; Start 07/10/16 at 17 :30 Finasteride (Proscar) 5 mg DAILY PO Last administered on 07/23/16 08:15; Admin Dose 5 MG; Start 07/13/16 at 09:00 Naloxone HCl (Narcan) 0.2 mg Q2M PRN IV RR 8 BREATHS/MIN OR LESS; Start at 17:00 Fluconazole (Diflucan) 100 mg DAILY PO Last administered on 07/23/16 08:15; Admin Dose 100 MG; Start 07/13/16 at 09:00 Ciprofloxacin HCl (Ciloxan 0.3% Oph) 1 drop TID RIGHT EYE Last administered on 07/23/16 12:07; Admin Dose 1 DROP; Start 07/13/16 at 21:00 Sodium Bicarbonate (Sodium Bicarbonate Tab) 650 mg TID PO Last administered on 07/23/16 12:06; Admin Dose 650 MG; Start 07/14/16 at 10:00 Epoetin Mauricio (Epogen (Esrd)) 10,000 units MoWeFr@17 SC Last administered on 20:30; Admin Dose 10,000 UNITS; Start 07/14/16 at 17:00 Ferrous Sulfate (Ferrous Sulfate (Ec)) 325 mg BID PO Last administered on 08:14; Admin Dose 325 MG; Start 07/14/16 at 21:00 Hydromorphone HCl (Dilaudid) 0.5 mg Q4 PRN IV BREAKTHROUGH PAIN Last administered on 07/23/16 13:14; Admin Dose 0.5 MG; Start 07/14/16 at 17:00 Pantoprazole (Protonix Tab) 40 mg DAILY@06 PO Last administered on 07/23/16 05: 28; Admin Dose 40 MG; Start 07/15/16 at 06:00 Simethicone (Mylicon) 80 mg Q6H PRN GTB DISTENSION/GAS/BLOATING Last administered on 07/15/16 11:24; Admin Dose 80 MG; Start 07/15/16 at 10:30 Docusate Sodium (Colace) 250 mg DAILY PO Last administered on 07/23/16 08:14; Admin Dose 250 MG; Start 07/15/16 at 11:30 Polyethylene Glycol (Miralax) 17 gm DAILY PO Last administered on 07/23/16 08: 12; Admin Dose 17 GM; Start 07/15/16 at 11:30 Tamsulosin HCl (Flomax) 0.4 mg HS PO Last administered on 07/22/16 20:18; Admin Dose 0.4 MG; Start 07/15/16 at 21:00 Rifampin (Rifampin) 600 mg DAILY PO Last administered on 07/23/16 08:14; Admin Dose 600 MG; Start 07/15/16 at 14:00 Heparin Sodium (Porcine) (Heparin (5000 Units/0.5 ml)) 5,000 unit BID SC Last administered on 07/23/16 08:11; Admin Dose 5,000 UNIT; Start 07/16/16 at 21:00 Oxycodone/ Acetaminophen (Percocet (5/ 325)) 1 tab Q4H PRN PO BREAKTHROUGH PAIN Last administered on 07/19/16 12:44; Admin Dose 1 TAB; Start 07/16/16 at 22:00 Neomycin/ Polymyxin/ Hydrocortisone (Cortisporin Otic Susp) 4 drop TID LEFT EAR Last administered on 07/23/16 09:36; Admin Dose 4 DROP; Start 07/19/16 at 09: 30 Bumetanide (Bumex) 2 mg DAILY PO Last administered on 07/23/16 08:13; Admin Dose 2 MG; Start 07/21/16 at 09:00 Calcitriol 0.25 mcg 0.25 mcg DAILY PO Last administered on 07/23/16 08:15; Admin Dose 0.25 MCG; Start 07/21/16 at 15:00 Vancomycin HCl/ Sodium Chloride (Vancocin/NS) 100 ml @ 100 mls/hr Q48H IVPB ; Start 07/24/16 at 20:00 Hydralazine HCl (Apresoline) 100 mg TID PO Last administered on 07/23/16 12:07 ; Admin Dose 100 MG; Start 07/22/16 at 21:00 Amlodipine Besylate (Norvasc) 5 mg DAILY PO ; Start 07/23/16 at 14:30; Status JACOB DUNCAN MD Jul 23, 2016 14:22
--- NOTE | 2016-07-23 14:49 | PN ---
Date/Time of Note Date/Time of Note DATE: 07/23/16 TIME: 14:40 Assessment/Plan VTE Prophylaxis VTE Prophylaxis Intervention: SCD's Lines/Catheters IV [facility]ter Type (from [facility]): PICC Line Central line still needed: Yes Urinary Cath still in place: No Assessment/Plan Chief Complaint/Hosp Course Assessment/Plan: 56-year-old male transferred from outside hospital managed as follows: 1. Sepsis 2/2 Spinal abscess / UTI: resolving - monitor 2. Lumbar epidural abscess : + for MRSA. s/p evacuation 07/12/16, POD # 11 - Continue abx per ID - needs abx until 09/09/2016 - B/c of concern for possible otooxicity, will d/c vanco and switch to Daptomycin now - continue rifampin PO for now 3. Chronic kidney disease r/o ARF 2/2 diuretic therapy - slowly improving, renal team on board. Patient's baseline Cr seems to be about 2.5 - monitor, f/u renal rec's, Bumex PO 4. ? Diabetes type 2 - A1c = 6.4 - continue ISS 5. Hypertension: high nL range - continue Hydralazine PO, Norvasc now, Bumex PO. 6. Anemia 2/2 CKD - Has received 4 units so far, H/H stable - monitor 7. 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 Gastrointestinal prophylaxis; PPIs. 9. Deep venous thrombosis prophylaxis; SCDs. DISPO: - have to find placement b/c family not willing to take pt home now - f/u with CM on this - Continue PRN pain control/ antiemetics/ antipyretics/ supportive care Problems: Subjective 24 Hr Interval Summary Free Text/Dictation Discharge cancelled yesterday b/c no family available to take pt home. Pt had some nausea today. Also complaining of some hearing difficulties. Exam/Review of Systems Vital Signs Vitals Vital Signs Date Time Temp Pulse Resp B/P Pulse Ox O2 Delivery O2 Flow Rate FiO2 07/23/16 07:50 98.2 61 16 173/95 94 07/20/16 13:02 Room Air Intake and Output 07/22/16 07/22/16 07/23/16 15:00 23:00 07:00 Intake Total 1020 ml 300 ml Output Total 1000 ml 600 ml Balance 20 ml -300 ml Exam Constitutional: alert, oriented Head: normocephalic Neck: supple Respiratory: clear to auscultation Cardiovascular: regular rate and rhythm Gastrointestinal: soft Extremities: pitting pedal edema Results Result Diagram: 07/22/16 0420 07/23/16 0431 Results 24 hrs Laboratory Tests Test 07/22/16 16:30 07/22/16 17:03 07/22/16 20:07 07/23/16 04:31 Vancomycin Level Trough 17.6 Bedside Glucose 154 201 Alanine Aminotransferase (ALT/SGPT) 20 Albumin 2.6 L Albumin/Globulin Ratio 0.60 Alkaline Phosphatase 101 Anion Gap 14 Aspartate Amino Transf (AST/SGOT) 12 L Blood Urea Nitrogen 56 H Calcium Level 8.1 L Carbon Dioxide Level 33 H Chloride Level 96 L Creatinine 2.65 H Direct Bilirubin 0.00 Globulin 4.30 H Glucose Level 118 Indirect Bilirubin 0.0 Potassium Level 4.6 Sodium Level 138 Total Bilirubin 0.0 L Total Protein 6.9 Test 07/23/16 07:36 07/23/16 11:38 Bedside Glucose 109 141 Medications Medications Current Medications Lorazepam (Ativan) 0.5 mg Q6H PRN IV ANXIETY; Start 07/10/16 at 17:30 Hydralazine HCl (Apresoline) 10 mg Q6H PRN IV ELEVATED BLOOD PRESSURE Last administered on 07/22/16 20:18; Admin Dose 10 MG; Start 07/10/16 at 17:30 Clonidine (Catapres) 0.1 mg Q6H PRN PO ELEVATED BLOOD PRESSURE Last administered on 07/14/16 13:07; Admin Dose 0.1 MG; Start 07/10/16 at 17:30 Nitroglycerin (Nitroglycerin (Sl Tab) 0.4 Mg) 1 tab Q5M PRN SL ANGINA; Start at 17:30 Carvedilol (Coreg) 6.25 mg BID PO Last administered on 07/23/16 08:15; Admin Dose 6.25 MG; Start 07/10/16 at 21:00 Lactobacillus Acidoph/Bulgaricus (Floranex) 1 tab TID PO Last administered on 12:06; Admin Dose 1 TAB; Start 07/10/16 at 21:00 Miscellaneous Information 1 ea NOTE XX ; Start 07/10/16 at 17:30 Glucose (Glutose) 15 gm Q15M PRN PO DECREASED GLUCOSE; Start 07/10/16 at 17:30 Glucose (Glutose) 22.5 gm Q15M PRN PO DECREASED GLUCOSE; Start 07/10/16 at 17: 30 Dextrose (D50w Syringe) 25 ml Q15M PRN IV DECREASED GLUCOSE Last administered on 07/12/16 07:54; Admin Dose 25 ML; Start 07/10/16 at 17:30 Dextrose (D50w Syringe) 50 ml Q15M PRN IV DECREASED GLUCOSE Last administered on 07/11/16 05:05; Admin Dose 50 ML; Start 07/10/16 at 17:30 Glucagon (Glucagen) 1 mg Q15M PRN IM DECREASED GLUCOSE; Start 07/10/16 at 17:30 Glucose (Glutose) 15 gm Q15M PRN BUCCAL DECREASED GLUCOSE; Start 07/10/16 at 17 :30 Finasteride (Proscar) 5 mg DAILY PO Last administered on 07/23/16 08:15; Admin Dose 5 MG; Start 07/13/16 at 09:00 Naloxone HCl (Narcan) 0.2 mg Q2M PRN IV RR 8 BREATHS/MIN OR LESS; Start at 17:00 Fluconazole (Diflucan) 100 mg DAILY PO Last administered on 07/23/16 08:15; Admin Dose 100 MG; Start 07/13/16 at 09:00 Ciprofloxacin HCl (Ciloxan 0.3% Oph) 1 drop TID RIGHT EYE Last administered on 07/23/16 12:07; Admin Dose 1 DROP; Start 07/13/16 at 21:00 Sodium Bicarbonate (Sodium Bicarbonate Tab) 650 mg TID PO Last administered on 07/23/16 12:06; Admin Dose 650 MG; Start 07/14/16 at 10:00 Epoetin Mauricio (Epogen (Esrd)) 10,000 units MoWeFr@17 SC Last administered on 20:30; Admin Dose 10,000 UNITS; Start 07/14/16 at 17:00 Ferrous Sulfate (Ferrous Sulfate (Ec)) 325 mg BID PO Last administered on 08:14; Admin Dose 325 MG; Start 07/14/16 at 21:00 Hydromorphone HCl (Dilaudid) 0.5 mg Q4 PRN IV BREAKTHROUGH PAIN Last administered on 07/23/16 13:14; Admin Dose 0.5 MG; Start 07/14/16 at 17:00 Pantoprazole (Protonix Tab) 40 mg DAILY@06 PO Last administered on 07/23/16 05: 28; Admin Dose 40 MG; Start 07/15/16 at 06:00 Simethicone (Mylicon) 80 mg Q6H PRN GTB DISTENSION/GAS/BLOATING Last administered on 07/15/16 11:24; Admin Dose 80 MG; Start 07/15/16 at 10:30 Docusate Sodium (Colace) 250 mg DAILY PO Last administered on 07/23/16 08:14; Admin Dose 250 MG; Start 07/15/16 at 11:30 Polyethylene Glycol (Miralax) 17 gm DAILY PO Last administered on 07/23/16 08: 12; Admin Dose 17 GM; Start 07/15/16 at 11:30 Tamsulosin HCl (Flomax) 0.4 mg HS PO Last administered on 07/22/16 20:18; Admin Dose 0.4 MG; Start 07/15/16 at 21:00 Rifampin (Rifampin) 600 mg DAILY PO Last administered on 07/23/16 08:14; Admin Dose 600 MG; Start 07/15/16 at 14:00 Heparin Sodium (Porcine) (Heparin (5000 Units/0.5 ml)) 5,000 unit BID SC Last administered on 07/23/16 08:11; Admin Dose 5,000 UNIT; Start 07/16/16 at 21:00 Oxycodone/ Acetaminophen (Percocet (5/ 325)) 1 tab Q4H PRN PO BREAKTHROUGH PAIN Last administered on 07/19/16 12:44; Admin Dose 1 TAB; Start 07/16/16 at 22:00 Neomycin/ Polymyxin/ Hydrocortisone (Cortisporin Otic Susp) 4 drop TID LEFT EAR Last administered on 07/23/16 09:36; Admin Dose 4 DROP; Start 07/19/16 at 09: 30 Bumetanide (Bumex) 2 mg DAILY PO Last administered on 07/23/16 08:13; Admin Dose 2 MG; Start 07/21/16 at 09:00 Calcitriol (Rocaltrol) 0.25 mcg DAILY PO Last administered on 07/23/16 08:15; Admin Dose 0.25 MCG; Start 07/21/16 at 15:00 Hydralazine HCl (Apresoline) 100 mg TID PO Last administered on 07/23/16 12:07 ; Admin Dose 100 MG; Start 07/22/16 at 21:00 Amlodipine Besylate 5 mg 5 mg DAILY PO ; Start 07/23/16 at 14:30 Ondansetron HCl/ Dextrose (Zofran Inj/D5W) 54 ml @ 108 mls/hr Q6H PRN IV NAUSEA AND/OR VOMITING; Start 07/23/16 at 15:30 PHANI REYES Jul 23, 2016 14:49
--- NOTE | 2016-07-23 15:23 | CONS ---
Date/Time of Note Date/Time of Note DATE: 07/23/16 TIME: 15:21 Assessment/Plan Assessment/Plan Chief Complaint/Hosp Course SUBJECTIVE: No events overnight. No fevers MICROBIOLOGY: Urine culture grew Enterobacter aerogenes and Katharina glabrata on admission. Lumbar culture growing MRSA, susceptible to vancomycin, clindamycin, rifampin, Bactrim. Anaerobic cultures had been negative. Indwelling: PICC ANTIMICROBIALS: Rifampin, Daptomycin PHYSICAL EXAMINATION: GENERAL: Well-developed, middle-aged man who is alert, in no distress. HEENT: Head atraumatic, normocephalic. Sclerae anicteric. Buccal mucosa dry. NECK: Supple. CHEST: Rise symmetrical. Breath sounds diminished to bases. HEART: S1, S2. ABDOMEN: Soft, bowel sounds present. EXTREMITIES: Without cyanosis. ASSESSMENT: 1. Lumbar diskitis, osteomyelitis, Methicillin-resistant Staphylococcus aureus psoas abscess, status post decompressive laminectomy with evacuation of abscess on 07/12/2016. 2. Chronic kidney disease. 3. Status post urinary tract infection. 4. Diabetes. 5. Hypertension. PLAN: Remains stable, Vanco changed to Daptomycin 2 to decrease hearing, continue present care, abx till September 07 [facility] staff Problems: Consultation Date/Type/Reason Admit Date/Time Jul 10, 2016 at 15:03 Type of Consultation: id Exam/Review of Systems Vital Signs Vitals Vital Signs Date Time Temp Pulse Resp B/P Pulse Ox O2 Delivery O2 Flow Rate FiO2 07/23/16 07:50 98.2 61 16 173/95 94 07/20/16 13:02 Room Air Intake and Output 07/22/16 07/22/16 07/23/16 15:00 23:00 07:00 Intake Total 1020 ml 300 ml Output Total 1000 ml 600 ml Balance 20 ml -300 ml Results Result Diagram: 07/22/16 0420 07/23/16 0431 Results 24 hrs Laboratory Tests Test 07/22/16 16:30 07/22/16 17:03 07/22/16 20:07 07/23/16 04:31 Vancomycin Level Trough 17.6 Bedside Glucose 154 201 Alanine Aminotransferase (ALT/SGPT) 20 Albumin 2.6 L Albumin/Globulin Ratio 0.60 Alkaline Phosphatase 101 Anion Gap 14 Aspartate Amino Transf (AST/SGOT) 12 L Blood Urea Nitrogen 56 H Calcium Level 8.1 L Carbon Dioxide Level 33 H Chloride Level 96 L Creatinine 2.65 H Direct Bilirubin 0.00 Globulin 4.30 H Glucose Level 118 Indirect Bilirubin 0.0 Potassium Level 4.6 Sodium Level 138 Total Bilirubin 0.0 L Total Protein 6.9 Test 07/23/16 07:36 07/23/16 11:38 Bedside Glucose 109 141 Medications Medications Current Medications Lorazepam (Ativan) 0.5 mg Q6H PRN IV ANXIETY; Start 07/10/16 at 17:30 Hydralazine HCl (Apresoline) 10 mg Q6H PRN IV ELEVATED BLOOD PRESSURE Last administered on 07/22/16 20:18; Admin Dose 10 MG; Start 07/10/16 at 17:30 Clonidine (Catapres) 0.1 mg Q6H PRN PO ELEVATED BLOOD PRESSURE Last administered on 07/14/16 13:07; Admin Dose 0.1 MG; Start 07/10/16 at 17:30 Nitroglycerin (Nitroglycerin (Sl Tab) 0.4 Mg) 1 tab Q5M PRN SL ANGINA; Start at 17:30 Carvedilol (Coreg) 6.25 mg BID PO Last administered on 07/23/16 08:15; Admin Dose 6.25 MG; Start 07/10/16 at 21:00 Lactobacillus Acidoph/Bulgaricus (Floranex) 1 tab TID PO Last administered on 12:06; Admin Dose 1 TAB; Start 07/10/16 at 21:00 Miscellaneous Information 1 ea NOTE XX ; Start 07/10/16 at 17:30 Glucose (Glutose) 15 gm Q15M PRN PO DECREASED GLUCOSE; Start 07/10/16 at 17:30 Glucose (Glutose) 22.5 gm Q15M PRN PO DECREASED GLUCOSE; Start 07/10/16 at 17: 30 Dextrose (D50w Syringe) 25 ml Q15M PRN IV DECREASED GLUCOSE Last administered on 07/12/16 07:54; Admin Dose 25 ML; Start 07/10/16 at 17:30 Dextrose (D50w Syringe) 50 ml Q15M PRN IV DECREASED GLUCOSE Last administered on 07/11/16 05:05; Admin Dose 50 ML; Start 07/10/16 at 17:30 Glucagon (Glucagen) 1 mg Q15M PRN IM DECREASED GLUCOSE; Start 07/10/16 at 17:30 Glucose (Glutose) 15 gm Q15M PRN BUCCAL DECREASED GLUCOSE; Start 07/10/16 at 17 :30 Finasteride (Proscar) 5 mg DAILY PO Last administered on 07/23/16 08:15; Admin Dose 5 MG; Start 07/13/16 at 09:00 Naloxone HCl (Narcan) 0.2 mg Q2M PRN IV RR 8 BREATHS/MIN OR LESS; Start at 17:00 Fluconazole (Diflucan) 100 mg DAILY PO Last administered on 07/23/16 08:15; Admin Dose 100 MG; Start 07/13/16 at 09:00 Ciprofloxacin HCl (Ciloxan 0.3% Oph) 1 drop TID RIGHT EYE Last administered on 07/23/16 12:07; Admin Dose 1 DROP; Start 07/13/16 at 21:00 Sodium Bicarbonate (Sodium Bicarbonate Tab) 650 mg TID PO Last administered on 07/23/16 12:06; Admin Dose 650 MG; Start 07/14/16 at 10:00 Epoetin Mauricio (Epogen (Esrd)) 10,000 units MoWeFr@17 SC Last administered on 20:30; Admin Dose 10,000 UNITS; Start 07/14/16 at 17:00 Ferrous Sulfate (Ferrous Sulfate (Ec)) 325 mg BID PO Last administered on 08:14; Admin Dose 325 MG; Start 07/14/16 at 21:00 Hydromorphone HCl (Dilaudid) 0.5 mg Q4 PRN IV BREAKTHROUGH PAIN Last administered on 07/23/16 13:14; Admin Dose 0.5 MG; Start 07/14/16 at 17:00 Pantoprazole (Protonix Tab) 40 mg DAILY@06 PO Last administered on 07/23/16 05: 28; Admin Dose 40 MG; Start 07/15/16 at 06:00 Simethicone (Mylicon) 80 mg Q6H PRN GTB DISTENSION/GAS/BLOATING Last administered on 07/15/16 11:24; Admin Dose 80 MG; Start 07/15/16 at 10:30 Docusate Sodium (Colace) 250 mg DAILY PO Last administered on 07/23/16 08:14; Admin Dose 250 MG; Start 07/15/16 at 11:30 Polyethylene Glycol (Miralax) 17 gm DAILY PO Last administered on 07/23/16 08: 12; Admin Dose 17 GM; Start 07/15/16 at 11:30 Tamsulosin HCl (Flomax) 0.4 mg HS PO Last administered on 07/22/16 20:18; Admin Dose 0.4 MG; Start 07/15/16 at 21:00 Rifampin (Rifampin) 600 mg DAILY PO Last administered on 07/23/16 08:14; Admin Dose 600 MG; Start 07/15/16 at 14:00 Heparin Sodium (Porcine) (Heparin (5000 Units/0.5 ml)) 5,000 unit BID SC Last administered on 07/23/16 08:11; Admin Dose 5,000 UNIT; Start 07/16/16 at 21:00 Oxycodone/ Acetaminophen (Percocet (5/ 325)) 1 tab Q4H PRN PO BREAKTHROUGH PAIN Last administered on 07/19/16 12:44; Admin Dose 1 TAB; Start 07/16/16 at 22:00 Neomycin/ Polymyxin/ Hydrocortisone (Cortisporin Otic Susp) 4 drop TID LEFT EAR Last administered on 07/23/16 09:36; Admin Dose 4 DROP; Start 07/19/16 at 09: 30 Bumetanide (Bumex) 2 mg DAILY PO Last administered on 07/23/16 08:13; Admin Dose 2 MG; Start 07/21/16 at 09:00 Calcitriol (Rocaltrol) 0.25 mcg DAILY PO Last administered on 07/23/16 08:15; Admin Dose 0.25 MCG; Start 07/21/16 at 15:00 Hydralazine HCl (Apresoline) 100 mg TID PO Last administered on 07/23/16 12:07 ; Admin Dose 100 MG; Start 07/22/16 at 21:00 Amlodipine Besylate 5 mg 5 mg DAILY PO ; Start 07/23/16 at 14:30 Ondansetron HCl 8 mg/Dextrose 54 ml @ 108 mls/hr Q6H PRN IV NAUSEA AND/OR VOMITING; Start 07/23/16 at 15:30 Daptomycin/Sodium Chloride (Cubicin/NS) 100 ml @ 200 mls/hr Q48H IVPB ; Start 07/23/16 at 18:00 DORENE GARCIA NP Jul 23, 2016 15:23
[2016-07-23] MEDS: DAPTOMYCIN 360 MG in SOD CHLORIDE 0.9% 100 ML IVPB SCH (17:27)
[2016-07-23] MEDS: AMLODIPINE 5 MG TAB PO SCH (17:36)
[2016-07-23] MEDS: TAMSULOSIN (SR) 0.4 MG CAP PO SCH (20:22)
[2016-07-23] MEDS: NEOMYC/POLYMYX/BACIT 30 GM OINT TOP SCH (20:23)
[2016-07-23] MEDS: EPOETIN 10000 UNITS/1 ML INJ (ESRD) SC SCH (20:24)
[2016-07-23 20:32] VITALS: BP 178/95; RESP 18
[2016-07-23 22:59] VITALS: BP 190/97; PULSE 65
[2016-07-23] MEDS: hydrALAzine 20 MG INJ IV PRN (22:59)
[2016-07-23 23:30] VITALS: BP 142/68; PULSE 89
[2016-07-24] VITALS (8 sets, daily range): BP systolic 115–198; BP diastolic 65–91; PULSE 62–71; RESP 16–18
[2016-07-24] MEDS: HYDROmorphONE 1 MG/ML SYG IV PRN ×5 (01:50→21:55)
[2016-07-24 05:06] LABS: ADD SCAN DIFF NO
[2016-07-24 05:11] LABS: BASOPHILS % 1.2 % (0.0-2.0); EOSINOPHILS # 0.1 10^3/ul (0.0-0.5); EOSINOPHILS % 2.4 % (0.0-7.0); HEMATOCRIT 34.4 % (42.0-52.0); HEMOGLOBIN 11.1 g/dl (14.0-18.0); LYMPHOCYTES # 1.2 10^3/ul (0.8-2.9); LYMPHOCYTES % 37.3 % (15.0-51.0); MEAN CORPUSCULAR HEMOGLOBIN 29.3 pg (29.0-33.0); MEAN CORPUSCULAR HGB CONC 32.3 g/dl (32.0-37.0); MEAN CORPUSCULAR VOLUME 90.8 fl (82.0-101.0); MEAN PLATELET VOLUME 9.4 fl (7.4-10.4); MONOCYTE # 0.4 10^3/ul (0.3-0.9); MONOCYTES % 11.3 % (0.0-11.0); NEUTROPHIL # 1.6 10^3/ul (1.6-7.5); NEUTROPHILS % 47.8 % (39.0-77.0); PLATELET COUNT 245 10^3/UL (140-415); RED BLOOD COUNT 3.79 10^6/ul (4.70-6.10); RED CELL DISTRIBUTION WIDTH 19.9 % (11.5-14.5); WHITE BLOOD COUNT 3.3 10^3/ul (4.8-10.8)
[2016-07-24 05:33] LABS: POTASSIUM 4.9 mmol/L (3.5-5.1)
[2016-07-24 05:36] LABS: CREATININE 2.55 mg/dl (0.61-1.24); PHOSPHORUS 4.1 mg/dl (2.5-4.9)
[2016-07-24 05:37] LABS: CALCIUM 8.4 mg/dl (8.4-10.2); MAGNESIUM 1.9 mg/dl (1.7-2.5)
[2016-07-24] MEDS: PANTOPRAZOLE (EC) 40 MG TAB PO SCH (05:55)
[2016-07-24] MEDS: INSULIN ASPART [NOVOLOG] 3 ML PEN SC SCH ×4 (07:30→20:33)
[2016-07-24] MEDS: BUMETANIDE 1 MG TAB PO SCH (08:01)
[2016-07-24] MEDS: FLUCONAZOLE 100 MG TAB PO SCH (08:01)
[2016-07-24] MEDS: FERROUS SULFATE (EC) 325 MG TAB PO SCH ×2 (08:02→20:30)
[2016-07-24] MEDS: RIFAMPIN 300 MG CAP PO SCH (08:02)
[2016-07-24] MEDS: CALCIUM ACETATE 667 MG CAP PO SCH ×3 (08:02→17:15)
[2016-07-24] MEDS: AMLODIPINE 5 MG TAB PO SCH (08:02)
[2016-07-24] MEDS: CALCITRIOL 0.25 MCG CAP PO SCH (08:02)
[2016-07-24] MEDS: NA BICARBONATE 650 MG TAB PO SCH ×3 (08:03→20:30)
[2016-07-24] MEDS: HEPARIN 5,000 UNIT/0.5 ML SYG SC SCH ×2 (08:03→20:32)
[2016-07-24] MEDS: POLYETHYLENE GLYCOL 17 GM PACKET PO SCH (08:03)
[2016-07-24] MEDS: NEOMYC/POLYMYX/HC 10 ML OTIC SUSP LEFT EAR SCH ×3 (08:03→20:29)
[2016-07-24] MEDS: DOCUSATE SODIUM 250 MG CAP PO SCH (08:03)
[2016-07-24] MEDS: CIPROFLOXACIN 0.3% 2.5 ML OPH RIGHT EYE SCH ×3 (08:03→20:30)
[2016-07-24] MEDS: NEOMYC/POLYMYX/BACIT 30 GM OINT TOP SCH ×2 (08:04→20:35)
[2016-07-24] MEDS: LACTOBACILLUS CHEW TAB PO SCH ×3 (08:04→20:30)
[2016-07-24] MEDS: FINASTERIDE 5 MG TAB PO SCH (08:04)
[2016-07-24] MEDS: ONDANSETRON INJ 8 MG in DEXTROSE 5% 50 ML IV PRN (09:21)
--- NOTE | 2016-07-24 12:02 | CONS ---
Date/Time of Note Date/Time of Note DATE: 07/24/16 TIME: 12:01 Assessment/Plan Assessment/Plan Chief Complaint/Hosp Course SUBJECTIVE: No events overnight. Sleeping. No fevers MICROBIOLOGY: Urine culture grew Enterobacter aerogenes and Katharina glabrata on admission. Lumbar culture growing MRSA, susceptible to vancomycin, clindamycin, rifampin, Bactrim. Anaerobic cultures had been negative. Indwelling: PICC ANTIMICROBIALS: Rifampin, Daptomycin PHYSICAL EXAMINATION: GENERAL: Well-developed, middle-aged man who is alert, in no distress. HEENT: Head atraumatic, normocephalic. Sclerae anicteric. Buccal mucosa dry. NECK: Supple. CHEST: Rise symmetrical. Breath sounds diminished to bases. HEART: S1, S2. ABDOMEN: Soft, bowel sounds present. EXTREMITIES: Without cyanosis. ASSESSMENT: 1. Lumbar diskitis, osteomyelitis, Methicillin-resistant Staphylococcus aureus psoas abscess, status post decompressive laminectomy with evacuation of abscess on 07/12/2016. 2. Chronic kidney disease. 3. Status post urinary tract infection. 4. Diabetes. 5. Hypertension. PLAN: Remains stable, continue abx till September 07 staff Problems: Consultation Date/Type/Reason Admit Date/Time Jul 10, 2016 at 15:03 Type of Consultation: id Exam/Review of Systems Vital Signs Vitals Vital Signs Date Time Temp Pulse Resp B/P Pulse Ox O2 Delivery O2 Flow Rate FiO2 07/24/16 09:51 67 174/88 07/24/16 08:01 98.5 16 93 07/20/16 13:02 Room Air Intake and Output 07/23/16 07/23/16 07/24/16 15:00 23:00 07:00 Intake Total 1860 ml 600 ml Output Total 700 ml 800 ml Balance 1160 ml -200 ml Results Result Diagram: 07/24/16 0430 07/24/16 0430 Results 24 hrs Laboratory Tests Test 07/23/16 16:28 07/23/16 20:20 07/24/16 02:28 07/24/16 04:30 Bedside Glucose 180 193 189 Anion Gap 14 Basophils # 0.0 Basophils % 1.2 Blood Urea Nitrogen 58 H Calcium Level 8.4 Carbon Dioxide Level 35 H Chloride Level 97 Creatine Kinase < 20 L Creatinine 2.55 H Eosinophils # 0.1 Eosinophils % 2.4 Glucose Level 168 Hematocrit 34.4 L Hemoglobin 11.1 L Lymphocytes # 1.2 Lymphocytes % 37.3 Magnesium Level 1.9 Mean Corpuscular Hemoglobin 29.3 Mean Corpuscular Hemoglobin Concent 32.3 Mean Corpuscular Volume 90.8 Mean Platelet Volume 9.4 Monocytes # 0.4 Monocytes % 11.3 H Neutrophils # 1.6 Neutrophils % 47.8 Nucleated Red Blood Cells # 0.0 Nucleated Red Blood Cells % 0.0 Phosphorus Level 4.1 Platelet Count 245 Potassium Level 4.9 Red Blood Count 3.79 L Red Cell Distribution Width 19.9 H Sodium Level 141 White Blood Count 3.3 L Test 07/24/16 07:47 07/24/16 11:35 Bedside Glucose 135 176 Medications Medications Current Medications Lorazepam (Ativan) 0.5 mg Q6H PRN IV ANXIETY; Start 07/10/16 at 17:30 Hydralazine HCl (Apresoline) 10 mg Q6H PRN IV ELEVATED BLOOD PRESSURE Last administered on 07/23/16 22:59; Admin Dose 10 MG; Start 07/10/16 at 17:30 Clonidine (Catapres) 0.1 mg Q6H PRN PO ELEVATED BLOOD PRESSURE Last administered on 07/14/16 13:07; Admin Dose 0.1 MG; Start 07/10/16 at 17:30 Nitroglycerin (Nitroglycerin (Sl Tab) 0.4 Mg) 1 tab Q5M PRN SL ANGINA; Start at 17:30 Carvedilol (Coreg) 6.25 mg BID PO Last administered on 07/24/16 08:01; Admin Dose 6.25 MG; Start 07/10/16 at 21:00 Lactobacillus Acidoph/Bulgaricus (Floranex) 1 tab TID PO Last administered on 20:22; Admin Dose 1 TAB; Start 07/10/16 at 21:00 Miscellaneous Information 1 ea NOTE XX ; Start 07/10/16 at 17:30 Glucose (Glutose) 15 gm Q15M PRN PO DECREASED GLUCOSE; Start 07/10/16 at 17:30 Glucose (Glutose) 22.5 gm Q15M PRN PO DECREASED GLUCOSE; Start 07/10/16 at 17: 30 Dextrose (D50w Syringe) 25 ml Q15M PRN IV DECREASED GLUCOSE Last administered on 07/12/16 07:54; Admin Dose 25 ML; Start 07/10/16 at 17:30 Dextrose (D50w Syringe) 50 ml Q15M PRN IV DECREASED GLUCOSE Last administered on 07/11/16 05:05; Admin Dose 50 ML; Start 07/10/16 at 17:30 Glucagon (Glucagen) 1 mg Q15M PRN IM DECREASED GLUCOSE; Start 07/10/16 at 17:30 Glucose (Glutose) 15 gm Q15M PRN BUCCAL DECREASED GLUCOSE; Start 07/10/16 at 17 :30 Finasteride (Proscar) 5 mg DAILY PO Last administered on 07/24/16 08:04; Admin Dose 5 MG; Start 07/13/16 at 09:00 Naloxone HCl (Narcan) 0.2 mg Q2M PRN IV RR 8 BREATHS/MIN OR LESS; Start at 17:00 Fluconazole (Diflucan) 100 mg DAILY PO Last administered on 07/24/16 08:01; Admin Dose 100 MG; Start 07/13/16 at 09:00 Ciprofloxacin HCl (Ciloxan 0.3% Oph) 1 drop TID RIGHT EYE Last administered on 07/24/16 08:03; Admin Dose 1 DROP; Start 07/13/16 at 21:00 Sodium Bicarbonate (Sodium Bicarbonate Tab) 650 mg TID PO Last administered on 07/24/16 08:03; Admin Dose 650 MG; Start 07/14/16 at 10:00 Epoetin Mauricio (Epogen (Esrd)) 10,000 units MoWeFr@17 SC Last administered on 07/23 20:24; Admin Dose 10,000 UNITS; Start 07/14/16 at 17:00 Ferrous Sulfate (Ferrous Sulfate (Ec)) 325 mg BID PO Last administered on 08:02; Admin Dose 325 MG; Start 07/14/16 at 21:00 Hydromorphone HCl (Dilaudid) 0.5 mg Q4 PRN IV BREAKTHROUGH PAIN Last administered on 07/24/16 09:47; Admin Dose 0.5 MG; Start 07/14/16 at 17:00 Pantoprazole (Protonix Tab) 40 mg DAILY@06 PO Last administered on 07/24/16 05: 55; Admin Dose 40 MG; Start 07/15/16 at 06:00 Simethicone (Mylicon) 80 mg Q6H PRN GTB DISTENSION/GAS/BLOATING Last administered on 07/15/16 11:24; Admin Dose 80 MG; Start 07/15/16 at 10:30 Docusate Sodium (Colace) 250 mg DAILY PO Last administered on 07/24/16 08:03; Admin Dose 250 MG; Start 07/15/16 at 11:30 Polyethylene Glycol (Miralax) 17 gm DAILY PO Last administered on 07/24/16 08: 03; Admin Dose 17 GM; Start 07/15/16 at 11:30 Tamsulosin HCl (Flomax) 0.4 mg HS PO Last administered on 07/23/16 20:22; Admin Dose 0.4 MG; Start 07/15/16 at 21:00 Rifampin (Rifampin) 600 mg DAILY PO Last administered on 07/24/16 08:02; Admin Dose 600 MG; Start 07/15/16 at 14:00 Heparin Sodium (Porcine) (Heparin (5000 Units/0.5 ml)) 5,000 unit BID SC Last administered on 07/24/16 08:03; Admin Dose 5,000 UNIT; Start 07/16/16 at 21:00 Oxycodone/ Acetaminophen (Percocet (5/ 325)) 1 tab Q4H PRN PO BREAKTHROUGH PAIN Last administered on 07/19/16 12:44; Admin Dose 1 TAB; Start 07/16/16 at 22:00 Neomycin/ Polymyxin/ Hydrocortisone (Cortisporin Otic Susp) 4 drop TID LEFT EAR Last administered on 07/24/16 08:03; Admin Dose 4 DROP; Start 07/19/16 at 09: 30 Bumetanide (Bumex) 2 mg DAILY PO Last administered on 07/24/16 08:01; Admin Dose 2 MG; Start 07/21/16 at 09:00 Calcitriol (Rocaltrol) 0.25 mcg DAILY PO Last administered on 07/24/16 08:02; Admin Dose 0.25 MCG; Start 07/21/16 at 15:00 Hydralazine HCl (Apresoline) 100 mg TID PO Last administered on 07/24/16 08:01 ; Admin Dose 100 MG; Start 07/22/16 at 21:00 Amlodipine Besylate 5 mg 5 mg DAILY PO Last administered on 07/24/16 08:02; Admin Dose 5 MG; Start 07/23/16 at 14:30 Ondansetron HCl 8 mg/Dextrose 54 ml @ 108 mls/hr Q6H PRN IV NAUSEA AND/OR VOMITING Last administered on 07/24/16 09:21; Admin Dose 108 MLS/HR; Start at 15:30 Daptomycin/Sodium Chloride (Cubicin/NS) 100 ml @ 200 mls/hr Q48H IVPB Last administered on 07/23/16 17:27; Admin Dose 200 MLS/HR; Start 07/23/16 at 18:00 Neomycin/ Polymyxin/ Bacitracin (Neosporin Topical Oint) 1 applic BID TOP Last administered on 07/24/16 08:04; Admin Dose 1 APPLIC; Start 07/23/16 at 21:00 DORENE GARCIA NP Jul 24, 2016 12:02
--- NOTE | 2016-07-24 13:39 | PN ---
Date/Time of Note Date/Time of Note DATE: 07/24/16 TIME: 13:39 Assessment/Plan VTE Prophylaxis VTE Prophylaxis Intervention: SCD's Lines/Catheters IV Catheter Type (from [facility] PICC Line Central line still needed: Yes Urinary Cath still in place: No Assessment/Plan Chief Complaint/Hosp Course Assessment/Plan: 56-year-old male transferred from outside hospital managed as follows: 1. Sepsis 2/2 Spinal abscess / UTI: resolving - monitor 2. Lumbar epidural abscess : + for MRSA. s/p evacuation 07/12/16, POD # 12 - Continue abx per ID - needs abx until 09/09/2016 - B/c of concern for possible ototoxicity, yesterday we d/c'ed vanco and switched to Daptomycin now - continue rifampin PO for now3. Chronic kidney disease r/o ARF 2/2 diuretic therapy - slowly improving, renal team on board. Patient's baseline Cr seems to be about 2.5 - monitor, f/u renal rec's, Bumex PO 4. ? Diabetes type 2 - A1c = 6.4 - continue ISS 5. Hypertension: high nL range still - continue Hydralazine PO, Norvasc (renal team has increased dose of this today), Bumex PO. 6. Anemia 2/2 CKD - Has received 4 units so far, H/H stable - monitor 7. 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 Gastrointestinal prophylaxis; PPIs. 9. Deep venous thrombosis prophylaxis; SCDs. DISPO: - have to find placement b/c family not willing to take pt home now - f/u with CM on this - Continue PRN pain control/ antiemetics/ antipyretics/ supportive care Problems: Subjective 24 Hr Interval Summary Free Text/Dictation No acute events overnight, still with high bp however. Exam/Review of Systems Vital Signs Vitals Vital Signs Date Time Temp Pulse Resp B/P Pulse Ox O2 Delivery O2 Flow Rate FiO2 07/24/16 09:51 67 174/88 07/24/16 08:01 98.5 16 93 07/20/16 13:02 Room Air Intake and Output 07/23/16 07/23/16 07/24/16 15:00 23:00 07:00 Intake Total 1860 ml 600 ml Output Total 700 ml 800 ml Balance 1160 ml -200 ml Exam Constitutional: alert, oriented Head: normocephalic Neck: supple Respiratory: clear to auscultation Cardiovascular: regular rate and rhythm Gastrointestinal: soft Extremities: less pitting pedal edema Results Result Diagram: 07/24/16 0430 07/24/16 0430 Results 24 hrs Laboratory Tests Test 07/23/16 16:28 07/23/16 20:20 07/24/16 02:28 07/24/16 04:30 Bedside Glucose 180 193 189 Anion Gap 14 Basophils # 0.0 Basophils % 1.2 Blood Urea Nitrogen 58 H Calcium Level 8.4 Carbon Dioxide Level 35 H Chloride Level 97 Creatine Kinase < 20 L Creatinine 2.55 H Eosinophils # 0.1 Eosinophils % 2.4 Glucose Level 168 Hematocrit 34.4 L Hemoglobin 11.1 L Lymphocytes # 1.2 Lymphocytes % 37.3 Magnesium Level 1.9 Mean Corpuscular Hemoglobin 29.3 Mean Corpuscular Hemoglobin Concent 32.3 Mean Corpuscular Volume 90.8 Mean Platelet Volume 9.4 Monocytes # 0.4 Monocytes % 11.3 H Neutrophils # 1.6 Neutrophils % 47.8 Nucleated Red Blood Cells # 0.0 Nucleated Red Blood Cells % 0.0 Phosphorus Level 4.1 Platelet Count 245 Potassium Level 4.9 Red Blood Count 3.79 L Red Cell Distribution Width 19.9 H Sodium Level 141 White Blood Count 3.3 L Test 07/24/16 07:47 07/24/16 11:35 Bedside Glucose 135 176 Medications Medications Current Medications Lorazepam (Ativan) 0.5 mg Q6H PRN IV ANXIETY; Start 07/10/16 at 17:30 Hydralazine HCl (Apresoline) 10 mg Q6H PRN IV ELEVATED BLOOD PRESSURE Last administered on 07/23/16 22:59; Admin Dose 10 MG; Start 07/10/16 at 17:30 Clonidine (Catapres) 0.1 mg Q6H PRN PO ELEVATED BLOOD PRESSURE Last administered on 07/14/16 13:07; Admin Dose 0.1 MG; Start 07/10/16 at 17:30 Nitroglycerin (Nitroglycerin (Sl Tab) 0.4 Mg) 1 tab Q5M PRN SL ANGINA; Start at 17:30 Carvedilol (Coreg) 6.25 mg BID PO Last administered on 07/24/16 08:01; Admin Dose 6.25 MG; Start 07/10/16 at 21:00 Lactobacillus Acidoph/Bulgaricus (Floranex) 1 tab TID PO Last administered on 13:15; Admin Dose 1 TAB; Start 07/10/16 at 21:00 Miscellaneous Information 1 ea NOTE XX ; Start 07/10/16 at 17:30 Glucose (Glutose) 15 gm Q15M PRN PO DECREASED GLUCOSE; Start 07/10/16 at 17:30 Glucose (Glutose) 22.5 gm Q15M PRN PO DECREASED GLUCOSE; Start 07/10/16 at 17: 30 Dextrose (D50w Syringe) 25 ml Q15M PRN IV DECREASED GLUCOSE Last administered on 07/12/16 07:54; Admin Dose 25 ML; Start 07/10/16 at 17:30 Dextrose (D50w Syringe) 50 ml Q15M PRN IV DECREASED GLUCOSE Last administered on 07/11/16 05:05; Admin Dose 50 ML; Start 07/10/16 at 17:30 Glucagon (Glucagen) 1 mg Q15M PRN IM DECREASED GLUCOSE; Start 07/10/16 at 17:30 Glucose (Glutose) 15 gm Q15M PRN BUCCAL DECREASED GLUCOSE; Start 07/10/16 at 17 :30 Finasteride (Proscar) 5 mg DAILY PO Last administered on 07/24/16 08:04; Admin Dose 5 MG; Start 07/13/16 at 09:00 Naloxone HCl (Narcan) 0.2 mg Q2M PRN IV RR 8 BREATHS/MIN OR LESS; Start at 17:00 Ciprofloxacin HCl (Ciloxan 0.3% Oph) 1 drop TID RIGHT EYE Last administered on 07/24/16 13:15; Admin Dose 1 DROP; Start 07/13/16 at 21:00 Sodium Bicarbonate (Sodium Bicarbonate Tab) 650 mg TID PO Last administered on 07/24/16 13:14; Admin Dose 650 MG; Start 07/14/16 at 10:00 Epoetin Mauricio (Epogen (Esrd)) 10,000 units MoWeFr@17 SC Last administered on 07/23 20:24; Admin Dose 10,000 UNITS; Start 07/14/16 at 17:00 Ferrous Sulfate (Ferrous Sulfate (Ec)) 325 mg BID PO Last administered on 08:02; Admin Dose 325 MG; Start 07/14/16 at 21:00 Hydromorphone HCl (Dilaudid) 0.5 mg Q4 PRN IV BREAKTHROUGH PAIN Last administered on 07/24/16 09:47; Admin Dose 0.5 MG; Start 07/14/16 at 17:00 Pantoprazole (Protonix Tab) 40 mg DAILY@06 PO Last administered on 07/24/16 05: 55; Admin Dose 40 MG; Start 07/15/16 at 06:00 Simethicone (Mylicon) 80 mg Q6H PRN GTB DISTENSION/GAS/BLOATING Last administered on 07/15/16 11:24; Admin Dose 80 MG; Start 07/15/16 at 10:30 Docusate Sodium (Colace) 250 mg DAILY PO Last administered on 07/24/16 08:03; Admin Dose 250 MG; Start 07/15/16 at 11:30 Polyethylene Glycol (Miralax) 17 gm DAILY PO Last administered on 07/24/16 08: 03; Admin Dose 17 GM; Start 07/15/16 at 11:30 Tamsulosin HCl (Flomax) 0.4 mg HS PO Last administered on 07/23/16 20:22; Admin Dose 0.4 MG; Start 07/15/16 at 21:00 Rifampin (Rifampin) 600 mg DAILY PO Last administered on 07/24/16 08:02; Admin Dose 600 MG; Start 07/15/16 at 14:00 Heparin Sodium (Porcine) (Heparin (5000 Units/0.5 ml)) 5,000 unit BID SC Last administered on 07/24/16 08:03; Admin Dose 5,000 UNIT; Start 07/16/16 at 21:00 Oxycodone/ Acetaminophen (Percocet (5/ 325)) 1 tab Q4H PRN PO BREAKTHROUGH PAIN Last administered on 07/19/16 12:44; Admin Dose 1 TAB; Start 07/16/16 at 22:00 Neomycin/ Polymyxin/ Hydrocortisone (Cortisporin Otic Susp) 4 drop TID LEFT EAR Last administered on 07/24/16 13:16; Admin Dose 4 DROP; Start 07/19/16 at 09: 30 Bumetanide (Bumex) 2 mg DAILY PO Last administered on 07/24/16 08:01; Admin Dose 2 MG; Start 07/21/16 at 09:00 Calcitriol (Rocaltrol) 0.25 mcg DAILY PO Last administered on 07/24/16 08:02; Admin Dose 0.25 MCG; Start 07/21/16 at 15:00 Hydralazine HCl 100 mg 100 mg TID PO Last administered on 07/24/16 13:15; Admin Dose 100 MG; Start 07/22/16 at 21:00 Ondansetron HCl 8 mg/Dextrose 54 ml @ 108 mls/hr Q6H PRN IV NAUSEA AND/OR VOMITING Last administered on 07/24/16 09:21; Admin Dose 108 MLS/HR; Start at 15:30 Daptomycin/Sodium Chloride (Cubicin/NS) 100 ml @ 200 mls/hr Q48H IVPB Last administered on 07/23/16 17:27; Admin Dose 200 MLS/HR; Start 07/23/16 at 18:00 Neomycin/ Polymyxin/ Bacitracin (Neosporin Topical Oint) 1 applic BID TOP Last administered on 07/24/16 08:04; Admin Dose 1 APPLIC; Start 07/23/16 at 21:00 Amlodipine Besylate (Norvasc) 5 mg BID PO ; Start 07/24/16 at 21:00; Status PHANI AMATO Jul 24, 2016 13:39
[2016-07-24] MEDS ORDERED: VANCOMYCIN 400 MG in SOD CHLORIDE 0.9% 100 ML IVPB SCH (20:00)
[2016-07-24] MEDS: TAMSULOSIN (SR) 0.4 MG CAP PO SCH (20:30)
[2016-07-24] MEDS ORDERED: AMLODIPINE 5 MG TAB PO SCH (21:00)
[2016-07-25] MEDS: PANTOPRAZOLE (EC) 40 MG TAB PO SCH (05:23)
[2016-07-25 05:58] LABS: ADD SCAN DIFF NO
[2016-07-25 06:00] LABS: BASOPHIL # 0.1 10^3/ul (0.0-0.1); BASOPHILS % 1.3 % (0.0-2.0); EOSINOPHILS # 0.1 10^3/ul (0.0-0.5); EOSINOPHILS % 1.6 % (0.0-7.0); HEMATOCRIT 35.3 % (42.0-52.0); HEMOGLOBIN 11.4 g/dl (14.0-18.0); LYMPHOCYTES # 1.1 10^3/ul (0.8-2.9); LYMPHOCYTES % 29.9 % (15.0-51.0); MEAN CORPUSCULAR HEMOGLOBIN 29.5 pg (29.0-33.0); MEAN CORPUSCULAR HGB CONC 32.3 g/dl (32.0-37.0); MEAN CORPUSCULAR VOLUME 91.5 fl (82.0-101.0); MEAN PLATELET VOLUME 9.3 fl (7.4-10.4); MONOCYTE # 0.3 10^3/ul (0.3-0.9); MONOCYTES % 9.1 % (0.0-11.0); NEUTROPHIL # 2.2 10^3/ul (1.6-7.5); NEUTROPHILS % 57.8 % (39.0-77.0); PLATELET COUNT 243 10^3/UL (140-415); RED BLOOD COUNT 3.86 10^6/ul (4.70-6.10); RED CELL DISTRIBUTION WIDTH 20.3 % (11.5-14.5); WHITE BLOOD COUNT 3.8 10^3/ul (4.8-10.8)
[2016-07-25 06:49] LABS: POTASSIUM 4.3 mmol/L (3.5-5.1)
[2016-07-25 06:52] LABS: CREATININE 2.59 mg/dl (0.61-1.24)
[2016-07-25 06:53] LABS: CALCIUM 8.5 mg/dl (8.4-10.2)
[2016-07-25] MEDS: INSULIN ASPART [NOVOLOG] 3 ML PEN SC SCH ×4 (07:30→20:28)
[2016-07-25 08:27] VITALS: BP 160/85; RESP 17
[2016-07-25] MEDS: RIFAMPIN 300 MG CAP PO SCH (09:30)
[2016-07-25] MEDS: LACTOBACILLUS CHEW TAB PO SCH ×3 (09:30→20:27)
[2016-07-25] MEDS: DOCUSATE SODIUM 250 MG CAP PO SCH (09:31)
[2016-07-25] MEDS: FERROUS SULFATE (EC) 325 MG TAB PO SCH ×2 (09:31→20:27)
[2016-07-25] MEDS: FINASTERIDE 5 MG TAB PO SCH (09:31)
[2016-07-25] MEDS: CALCIUM ACETATE 667 MG CAP PO SCH ×3 (09:31→18:08)
[2016-07-25] MEDS: CALCITRIOL 0.25 MCG CAP PO SCH (09:32)
[2016-07-25] MEDS: NEOMYC/POLYMYX/HC 10 ML OTIC SUSP LEFT EAR SCH ×3 (09:32→20:37)
[2016-07-25] MEDS: CIPROFLOXACIN 0.3% 2.5 ML OPH RIGHT EYE SCH ×3 (09:32→20:38)
[2016-07-25] MEDS: POLYETHYLENE GLYCOL 17 GM PACKET PO SCH (09:32)
[2016-07-25] MEDS: NEOMYC/POLYMYX/BACIT 30 GM OINT TOP SCH ×2 (09:32→20:25)
[2016-07-25] MEDS: BUMETANIDE 1 MG TAB PO SCH (09:32)
[2016-07-25] MEDS: NA BICARBONATE 650 MG TAB PO SCH ×3 (09:33→20:27)
[2016-07-25] MEDS: HEPARIN 5,000 UNIT/0.5 ML SYG SC SCH ×2 (09:35→20:41)
[2016-07-25] MEDS: ONDANSETRON INJ 8 MG in DEXTROSE 5% 50 ML IV PRN (09:48)
[2016-07-25] MEDS: HYDROmorphONE 1 MG/ML SYG IV PRN ×3 (09:48→18:29)
--- NOTE | 2016-07-25 11:14 | CONS ---
Date/Time of Note Date/Time of Note DATE: 07/25/16 TIME: 11:13 Assessment/Plan Assessment/Plan Chief Complaint/Hosp Course SUBJECTIVE: No events overnight. Sleeping. No fevers Indwelling: PICC ANTIMICROBIALS: Rifampin, Daptomycin PHYSICAL EXAMINATION: GENERAL: Well-developed, middle-aged man who is alert, in no distress. HEENT: Head atraumatic, normocephalic. Sclerae anicteric. Buccal mucosa dry. NECK: Supple. CHEST: Rise symmetrical. Breath sounds diminished to bases. HEART: S1, S2. ABDOMEN: Soft, bowel sounds present. EXTREMITIES: Without cyanosis. ASSESSMENT: 1. Lumbar diskitis, osteomyelitis, Methicillin-resistant Staphylococcus aureus psoas abscess, status post decompressive laminectomy with evacuation of abscess on 07/12/2016. 2. Chronic kidney disease. 3. Status post urinary tract infection. 4. Diabetes. 5. Hypertension. PLAN: Remains stable, continue abx till September 07, nephrology rec-s [facility] staff Problems: Consultation Date/Type/Reason Admit Date/Time Jul 10, 2016 at 15:03 Type of Consultation: id Exam/Review of Systems Vital Signs Vitals Vital Signs Date Time Temp Pulse Resp B/P Pulse Ox O2 Delivery O2 Flow Rate FiO2 07/25/16 08:27 98.5 68 17 160/85 97 07/24/16 20:30 Room Air Intake and Output 07/24/16 07/24/16 07/25/16 15:00 23:00 07:00 Intake Total 54 ml 1380 ml 350 ml Output Total 1250 ml 500 ml Balance 54 ml 130 ml -150 ml Results Result Diagram: 07/25/16 0425 07/25/16 0425 Results 24 hrs Laboratory Tests Test 07/24/16 11:35 07/24/16 16:49 07/24/16 20:27 07/25/16 01:56 Bedside Glucose 176 159 147 114 Test 07/25/16 04:25 07/25/16 07:50 Anion Gap 14 Basophils # 0.1 Basophils % 1.3 Blood Urea Nitrogen 55 H Calcium Level 8.5 Carbon Dioxide Level 36 H Chloride Level 97 Creatinine 2.59 H Eosinophils # 0.1 Eosinophils % 1.6 Glucose Level 107 # Hematocrit 35.3 L Hemoglobin 11.4 L Lymphocytes # 1.1 Lymphocytes % 29.9 Mean Corpuscular Hemoglobin 29.5 Mean Corpuscular Hemoglobin Concent 32.3 Mean Corpuscular Volume 91.5 Mean Platelet Volume 9.3 Monocytes # 0.3 Monocytes % 9.1 Neutrophils # 2.2 Neutrophils % 57.8 Nucleated Red Blood Cells # 0.0 Nucleated Red Blood Cells % 0.0 Platelet Count 243 Potassium Level 4.3 Red Blood Count 3.86 L Red Cell Distribution Width 20.3 H Sodium Level 143 White Blood Count 3.8 L Bedside Glucose 101 Medications Medications Current Medications Lorazepam (Ativan) 0.5 mg Q6H PRN IV ANXIETY; Start 07/10/16 at 17:30 Hydralazine HCl (Apresoline) 10 mg Q6H PRN IV ELEVATED BLOOD PRESSURE Last administered on 07/23/16 22:59; Admin Dose 10 MG; Start 07/10/16 at 17:30 Clonidine (Catapres) 0.1 mg Q6H PRN PO ELEVATED BLOOD PRESSURE Last administered on 07/14/16 13:07; Admin Dose 0.1 MG; Start 07/10/16 at 17:30 Nitroglycerin (Nitroglycerin (Sl Tab) 0.4 Mg) 1 tab Q5M PRN SL ANGINA; Start at 17:30 Carvedilol (Coreg) 6.25 mg BID PO Last administered on 07/25/16 09:31; Admin Dose 6.25 MG; Start 07/10/16 at 21:00 Lactobacillus Acidoph/Bulgaricus (Floranex) 1 tab TID PO Last administered on 09:30; Admin Dose 1 TAB; Start 07/10/16 at 21:00 Miscellaneous Information 1 ea NOTE XX ; Start 07/10/16 at 17:30 Glucose (Glutose) 15 gm Q15M PRN PO DECREASED GLUCOSE; Start 07/10/16 at 17:30 Glucose (Glutose) 22.5 gm Q15M PRN PO DECREASED GLUCOSE; Start 07/10/16 at 17: 30 Dextrose (D50w Syringe) 25 ml Q15M PRN IV DECREASED GLUCOSE Last administered on 07/12/16 07:54; Admin Dose 25 ML; Start 07/10/16 at 17:30 Dextrose (D50w Syringe) 50 ml Q15M PRN IV DECREASED GLUCOSE Last administered on 07/11/16 05:05; Admin Dose 50 ML; Start 07/10/16 at 17:30 Glucagon (Glucagen) 1 mg Q15M PRN IM DECREASED GLUCOSE; Start 07/10/16 at 17:30 Glucose (Glutose) 15 gm Q15M PRN BUCCAL DECREASED GLUCOSE; Start 07/10/16 at 17 :30 Finasteride (Proscar) 5 mg DAILY PO Last administered on 07/25/16 09:31; Admin Dose 5 MG; Start 07/13/16 at 09:00 Naloxone HCl (Narcan) 0.2 mg Q2M PRN IV RR 8 BREATHS/MIN OR LESS; Start at 17:00 Ciprofloxacin HCl (Ciloxan 0.3% Oph) 1 drop TID RIGHT EYE Last administered on 07/25/16 09:32; Admin Dose 1 DROP; Start 07/13/16 at 21:00 Sodium Bicarbonate (Sodium Bicarbonate Tab) 650 mg TID PO Last administered on 07/25/16 09:33; Admin Dose 650 MG; Start 07/14/16 at 10:00 Epoetin Mauricio (Epogen (Esrd)) 10,000 units MoWeFr@17 SC Last administered on 07/23 20:24; Admin Dose 10,000 UNITS; Start 07/14/16 at 17:00 Ferrous Sulfate (Ferrous Sulfate (Ec)) 325 mg BID PO Last administered on 09:31; Admin Dose 325 MG; Start 07/14/16 at 21:00 Hydromorphone HCl (Dilaudid) 0.5 mg Q4 PRN IV BREAKTHROUGH PAIN Last administered on 07/25/16 09:48; Admin Dose 0.5 MG; Start 07/14/16 at 17:00 Pantoprazole (Protonix Tab) 40 mg DAILY@06 PO Last administered on 07/25/16 05: 23; Admin Dose 40 MG; Start 07/15/16 at 06:00 Simethicone (Mylicon) 80 mg Q6H PRN GTB DISTENSION/GAS/BLOATING Last administered on 07/15/16 11:24; Admin Dose 80 MG; Start 07/15/16 at 10:30 Docusate Sodium (Colace) 250 mg DAILY PO Last administered on 07/25/16 09:31; Admin Dose 250 MG; Start 07/15/16 at 11:30 Polyethylene Glycol (Miralax) 17 gm DAILY PO Last administered on 07/25/16 09: 32; Admin Dose 17 GM; Start 07/15/16 at 11:30 Tamsulosin HCl (Flomax) 0.4 mg HS PO Last administered on 07/24/16 20:30; Admin Dose 0.4 MG; Start 07/15/16 at 21:00 Rifampin (Rifampin) 600 mg DAILY PO Last administered on 07/25/16 09:30; Admin Dose 600 MG; Start 07/15/16 at 14:00 Heparin Sodium (Porcine) (Heparin (5000 Units/0.5 ml)) 5,000 unit BID SC Last administered on 07/25/16 09:35; Admin Dose 5,000 UNIT; Start 07/16/16 at 21:00 Oxycodone/ Acetaminophen (Percocet (5/ 325)) 1 tab Q4H PRN PO BREAKTHROUGH PAIN Last administered on 07/19/16 12:44; Admin Dose 1 TAB; Start 07/16/16 at 22:00 Neomycin/ Polymyxin/ Hydrocortisone (Cortisporin Otic Susp) 4 drop TID LEFT EAR Last administered on 07/25/16 09:32; Admin Dose 4 DROP; Start 07/19/16 at 09: 30 Bumetanide (Bumex) 2 mg DAILY PO Last administered on 07/25/16 09:32; Admin Dose 2 MG; Start 07/21/16 at 09:00 Calcitriol 0.25 mcg 0.25 mcg DAILY PO Last administered on 07/25/16 09:32; Admin Dose 0.25 MCG; Start 07/21/16 at 15:00 Ondansetron HCl 8 mg/Dextrose 54 ml @ 108 mls/hr Q6H PRN IV NAUSEA AND/OR VOMITING Last administered on 07/25/16 09:48; Admin Dose 108 MLS/HR; Start at 15:30 Daptomycin/Sodium Chloride (Cubicin/NS) 100 ml @ 200 mls/hr Q48H IVPB Last administered on 07/23/16 17:27; Admin Dose 200 MLS/HR; Start 07/23/16 at 18:00 Neomycin/ Polymyxin/ Bacitracin (Neosporin Topical Oint) 1 applic BID TOP Last administered on 07/25/16 09:32; Admin Dose 1 APPLIC; Start 07/23/16 at 21:00 Hydralazine HCl (Apresoline) 100 mg BID PO Last administered on 07/25/16 09:31 ; Admin Dose 100 MG; Start 07/24/16 at 21:00 DORENE GARCIA NP Jul 25, 2016 11:14
--- NOTE | 2016-07-25 13:06 | CONS ---
Date/Time of Note Date/Time of Note DATE: 07/25/16 TIME: 13:00 Assessment/Plan Assessment/Plan Chief Complaint/Hosp Course 1. He is now 12days post op a lumbar laminectomy at the L2 L3 level with a drainage of an abscess , the abscess is growing MRSA and he is on appropriate antibiotics ,. He is feeling better with less back pain . 2. CKD , nephrotic syndrome , diabetic nephropathy . his renal function is the same . 3. anemia , he is on Epogen . 4. edema , he is on Bumex . 5. HTN, BP is high; however, he has severe postural hypotension. I would not be overly aggressive in treating his elevated blood pressure. He needs to have his blood pressure taken sitting and if it is high it must be taken standing. It is not clear whether he is symptomatic with this postural hypotension however he has not been up walking very much.. 6. he is c/o bilateral decrease in hearing , he is now off vancomycin and on Daptomycin . His renal function has been stable. He has chronic kidney disease due to diabetic nephropathy. I will sign off at this point and see him on request. Problems: Consultation Date/Type/Reason Admit Date/Time Jul 10, 2016 at 15:03 Type of Consultation: renal 24 HR Interval Summary Free Text/Dictation He says that he is feeling better except he still feels like he has some head discomfort. He feels like he has " water in his head ". Exam/Review of Systems Vital Signs Vitals Vital Signs Date Time Temp Pulse Resp B/P Pulse Ox O2 Delivery O2 Flow Rate FiO2 07/25/16 08:27 98.5 68 17 160/85 97 07/24/16 20:30 Room Air Intake and Output 07/24/16 07/24/16 07/25/16 15:00 23:00 07:00 Intake Total 54 ml 1380 ml 350 ml Output Total 1250 ml 500 ml Balance 54 ml 130 ml -150 ml Exam Constitutional: alert, oriented Psych: no complaints Cardiovascular: regular rate and rhythm Gastrointestinal: non-tender, soft Extremities: edema Results Result Diagram: 07/25/16 0425 07/25/16 0425 Results 24 hrs Laboratory Tests Test 07/24/16 16:49 07/24/16 20:27 07/25/16 01:56 07/25/16 04:25 Bedside Glucose 159 147 114 Anion Gap 14 Basophils # 0.1 Basophils % 1.3 Blood Urea Nitrogen 55 H Calcium Level 8.5 Carbon Dioxide Level 36 H Chloride Level 97 Creatinine 2.59 H Eosinophils # 0.1 Eosinophils % 1.6 Glucose Level 107 # Hematocrit 35.3 L Hemoglobin 11.4 L Lymphocytes # 1.1 Lymphocytes % 29.9 Mean Corpuscular Hemoglobin 29.5 Mean Corpuscular Hemoglobin Concent 32.3 Mean Corpuscular Volume 91.5 Mean Platelet Volume 9.3 Monocytes # 0.3 Monocytes % 9.1 Neutrophils # 2.2 Neutrophils % 57.8 Nucleated Red Blood Cells # 0.0 Nucleated Red Blood Cells % 0.0 Platelet Count 243 Potassium Level 4.3 Red Blood Count 3.86 L Red Cell Distribution Width 20.3 H Sodium Level 143 White Blood Count 3.8 L Test 07/25/16 07:50 07/25/16 11:59 Bedside Glucose 101 168 Medications Medications Current Medications Lorazepam (Ativan) 0.5 mg Q6H PRN IV ANXIETY; Start 07/10/16 at 17:30 Hydralazine HCl (Apresoline) 10 mg Q6H PRN IV ELEVATED BLOOD PRESSURE Last administered on 07/23/16 22:59; Admin Dose 10 MG; Start 07/10/16 at 17:30 Clonidine (Catapres) 0.1 mg Q6H PRN PO ELEVATED BLOOD PRESSURE Last administered on 07/14/16 13:07; Admin Dose 0.1 MG; Start 07/10/16 at 17:30 Nitroglycerin (Nitroglycerin (Sl Tab) 0.4 Mg) 1 tab Q5M PRN SL ANGINA; Start at 17:30 Carvedilol (Coreg) 6.25 mg BID PO Last administered on 07/25/16 09:31; Admin Dose 6.25 MG; Start 07/10/16 at 21:00 Lactobacillus Acidoph/Bulgaricus (Floranex) 1 tab TID PO Last administered on 12:13; Admin Dose 1 TAB; Start 07/10/16 at 21:00 Miscellaneous Information 1 ea NOTE XX ; Start 07/10/16 at 17:30 Glucose (Glutose) 15 gm Q15M PRN PO DECREASED GLUCOSE; Start 07/10/16 at 17:30 Glucose (Glutose) 22.5 gm Q15M PRN PO DECREASED GLUCOSE; Start 07/10/16 at 17: 30 Dextrose (D50w Syringe) 25 ml Q15M PRN IV DECREASED GLUCOSE Last administered on 07/12/16 07:54; Admin Dose 25 ML; Start 07/10/16 at 17:30 Dextrose (D50w Syringe) 50 ml Q15M PRN IV DECREASED GLUCOSE Last administered on 07/11/16 05:05; Admin Dose 50 ML; Start 07/10/16 at 17:30 Glucagon (Glucagen) 1 mg Q15M PRN IM DECREASED GLUCOSE; Start 07/10/16 at 17:30 Glucose (Glutose) 15 gm Q15M PRN BUCCAL DECREASED GLUCOSE; Start 07/10/16 at 17 :30 Finasteride (Proscar) 5 mg DAILY PO Last administered on 07/25/16 09:31; Admin Dose 5 MG; Start 07/13/16 at 09:00 Naloxone HCl (Narcan) 0.2 mg Q2M PRN IV RR 8 BREATHS/MIN OR LESS; Start at 17:00 Ciprofloxacin HCl (Ciloxan 0.3% Oph) 1 drop TID RIGHT EYE Last administered on 07/25/16 12:13; Admin Dose 1 DROP; Start 07/13/16 at 21:00 Sodium Bicarbonate (Sodium Bicarbonate Tab) 650 mg TID PO Last administered on 07/25/16 12:13; Admin Dose 650 MG; Start 07/14/16 at 10:00 Epoetin Mauricio (Epogen (Esrd)) 10,000 units MoWeFr@17 SC Last administered on 07/23 20:24; Admin Dose 10,000 UNITS; Start 07/14/16 at 17:00 Ferrous Sulfate (Ferrous Sulfate (Ec)) 325 mg BID PO Last administered on 09:31; Admin Dose 325 MG; Start 07/14/16 at 21:00 Hydromorphone HCl (Dilaudid) 0.5 mg Q4 PRN IV BREAKTHROUGH PAIN Last administered on 07/25/16 09:48; Admin Dose 0.5 MG; Start 07/14/16 at 17:00 Pantoprazole (Protonix Tab) 40 mg DAILY@06 PO Last administered on 07/25/16 05: 23; Admin Dose 40 MG; Start 07/15/16 at 06:00 Simethicone (Mylicon) 80 mg Q6H PRN GTB DISTENSION/GAS/BLOATING Last administered on 07/15/16 11:24; Admin Dose 80 MG; Start 07/15/16 at 10:30 Docusate Sodium (Colace) 250 mg DAILY PO Last administered on 07/25/16 09:31; Admin Dose 250 MG; Start 07/15/16 at 11:30 Polyethylene Glycol (Miralax) 17 gm DAILY PO Last administered on 07/25/16 09: 32; Admin Dose 17 GM; Start 07/15/16 at 11:30 Tamsulosin HCl (Flomax) 0.4 mg HS PO Last administered on 07/24/16 20:30; Admin Dose 0.4 MG; Start 07/15/16 at 21:00 Rifampin (Rifampin) 600 mg DAILY PO Last administered on 07/25/16 09:30; Admin Dose 600 MG; Start 07/15/16 at 14:00 Heparin Sodium (Porcine) (Heparin (5000 Units/0.5 ml)) 5,000 unit BID SC Last administered on 07/25/16 09:35; Admin Dose 5,000 UNIT; Start 07/16/16 at 21:00 Oxycodone/ Acetaminophen (Percocet (5/ 325)) 1 tab Q4H PRN PO BREAKTHROUGH PAIN Last administered on 07/19/16 12:44; Admin Dose 1 TAB; Start 07/16/16 at 22:00 Neomycin/ Polymyxin/ Hydrocortisone (Cortisporin Otic Susp) 4 drop TID LEFT EAR Last administered on 07/25/16 12:13; Admin Dose 4 DROP; Start 07/19/16 at 09: 30 Bumetanide (Bumex) 2 mg DAILY PO Last administered on 07/25/16 09:32; Admin Dose 2 MG; Start 07/21/16 at 09:00 Calcitriol 0.25 mcg 0.25 mcg DAILY PO Last administered on 07/25/16 09:32; Admin Dose 0.25 MCG; Start 07/21/16 at 15:00 Ondansetron HCl 8 mg/Dextrose 54 ml @ 108 mls/hr Q6H PRN IV NAUSEA AND/OR VOMITING Last administered on 07/25/16 09:48; Admin Dose 108 MLS/HR; Start at 15:30 Daptomycin/Sodium Chloride (Cubicin/NS) 100 ml @ 200 mls/hr Q48H IVPB Last administered on 07/23/16 17:27; Admin Dose 200 MLS/HR; Start 07/23/16 at 18:00 Neomycin/ Polymyxin/ Bacitracin (Neosporin Topical Oint) 1 applic BID TOP Last administered on 07/25/16 09:32; Admin Dose 1 APPLIC; Start 07/23/16 at 21:00 Hydralazine HCl (Apresoline) 100 mg BID PO Last administered on 07/25/16 09:31 ; Admin Dose 100 MG; Start 07/24/16 at 21:00 JACOB WHEELER MD Jul 25, 2016 13:06
--- NOTE | 2016-07-25 14:22 | PN ---
Date/Time of Note Date/Time of Note DATE: 07/25/16 TIME: 14:19 Assessment/Plan VTE Prophylaxis VTE Prophylaxis Intervention: SCD's Lines/Catheters IV [facility] Type (from [facility] PICC Line Central line still needed: Yes Urinary Cath still in place: No Assessment/Plan Chief Complaint/Hosp Course Assessment/Plan: 56-year-old male transferred from outside hospital managed as follows: 1. Sepsis 2/2 Spinal abscess / UTI: resolving - monitor 2. Lumbar epidural abscess : + for MRSA. s/p evacuation 07/12/16, POD # 13 - Continue abx per ID - needs abx until 09/09/2016 - B/c of concern for possible ototoxicity, we have d/c'ed vanco and switched to Daptomycin now - continue rifampin PO for now. 3. Chronic kidney disease r/o ARF 2/2 diuretic therapy - slowly improving, renal team on board. Patient's baseline Cr seems to be about 2.5 - monitor, f/u renal rec's, Bumex PO 4. ? Diabetes type 2 - A1c = 6.4 - continue ISS 5. Hypertension: high nL range still, but pt showing signs of severe postural hypotension - continue Hydralazine PO, Norvasc, Bumex PO. - monitor bp 6. Anemia 2/2 CKD - Has received 4 units so far, H/H stable - monitor 7. 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 Gastrointestinal prophylaxis; PPIs. 9. Deep venous thrombosis prophylaxis; SCDs. DISPO: - have to find placement b/c family not willing to take pt home now - f/u with CM on this - Continue PRN pain control/ antiemetics/ antipyretics/ supportive care Problems: Subjective 24 Hr Interval Summary Free Text/Dictation No acute events overnight. Exam/Review of Systems Vital Signs Vitals Vital Signs Date Time Temp Pulse Resp B/P Pulse Ox O2 Delivery O2 Flow Rate FiO2 07/25/16 08:27 98.5 68 17 160/85 97 07/24/16 20:30 Room Air Intake and Output 07/24/16 07/24/16 07/25/16 15:00 23:00 07:00 Intake Total 54 ml 1380 ml 350 ml Output Total 1250 ml 500 ml Balance 54 ml 130 ml -150 ml Exam Constitutional: alert, oriented Head: normocephalic Neck: supple Respiratory: clear to auscultation Cardiovascular: regular rate and rhythm Gastrointestinal: soft Extremities: less pitting pedal edema Results Result Diagram: 07/25/16 0425 07/25/16 0425 Results 24 hrs Laboratory Tests Test 07/24/16 16:49 07/24/16 20:27 07/25/16 01:56 07/25/16 04:25 Bedside Glucose 159 147 114 Anion Gap 14 Basophils # 0.1 Basophils % 1.3 Blood Urea Nitrogen 55 H Calcium Level 8.5 Carbon Dioxide Level 36 H Chloride Level 97 Creatinine 2.59 H Eosinophils # 0.1 Eosinophils % 1.6 Glucose Level 107 # Hematocrit 35.3 L Hemoglobin 11.4 L Lymphocytes # 1.1 Lymphocytes % 29.9 Mean Corpuscular Hemoglobin 29.5 Mean Corpuscular Hemoglobin Concent 32.3 Mean Corpuscular Volume 91.5 Mean Platelet Volume 9.3 Monocytes # 0.3 Monocytes % 9.1 Neutrophils # 2.2 Neutrophils % 57.8 Nucleated Red Blood Cells # 0.0 Nucleated Red Blood Cells % 0.0 Platelet Count 243 Potassium Level 4.3 Red Blood Count 3.86 L Red Cell Distribution Width 20.3 H Sodium Level 143 White Blood Count 3.8 L Test 07/25/16 07:50 07/25/16 11:59 Bedside Glucose 101 168 Medications Medications Current Medications Lorazepam (Ativan) 0.5 mg Q6H PRN IV ANXIETY; Start 07/10/16 at 17:30 Hydralazine HCl (Apresoline) 10 mg Q6H PRN IV ELEVATED BLOOD PRESSURE Last administered on 07/23/16 22:59; Admin Dose 10 MG; Start 07/10/16 at 17:30 Clonidine (Catapres) 0.1 mg Q6H PRN PO ELEVATED BLOOD PRESSURE Last administered on 07/14/16 13:07; Admin Dose 0.1 MG; Start 07/10/16 at 17:30 Nitroglycerin (Nitroglycerin (Sl Tab) 0.4 Mg) 1 tab Q5M PRN SL ANGINA; Start at 17:30 Carvedilol (Coreg) 6.25 mg BID PO Last administered on 07/25/16 09:31; Admin Dose 6.25 MG; Start 07/10/16 at 21:00 Lactobacillus Acidoph/Bulgaricus (Floranex) 1 tab TID PO Last administered on 12:13; Admin Dose 1 TAB; Start 07/10/16 at 21:00 Miscellaneous Information 1 ea NOTE XX ; Start 07/10/16 at 17:30 Glucose (Glutose) 15 gm Q15M PRN PO DECREASED GLUCOSE; Start 07/10/16 at 17:30 Glucose (Glutose) 22.5 gm Q15M PRN PO DECREASED GLUCOSE; Start 07/10/16 at 17: 30 Dextrose (D50w Syringe) 25 ml Q15M PRN IV DECREASED GLUCOSE Last administered on 07/12/16 07:54; Admin Dose 25 ML; Start 07/10/16 at 17:30 Dextrose (D50w Syringe) 50 ml Q15M PRN IV DECREASED GLUCOSE Last administered on 07/11/16 05:05; Admin Dose 50 ML; Start 07/10/16 at 17:30 Glucagon (Glucagen) 1 mg Q15M PRN IM DECREASED GLUCOSE; Start 07/10/16 at 17:30 Glucose (Glutose) 15 gm Q15M PRN BUCCAL DECREASED GLUCOSE; Start 07/10/16 at 17 :30 Finasteride (Proscar) 5 mg DAILY PO Last administered on 07/25/16 09:31; Admin Dose 5 MG; Start 07/13/16 at 09:00 Naloxone HCl (Narcan) 0.2 mg Q2M PRN IV RR 8 BREATHS/MIN OR LESS; Start at 17:00 Ciprofloxacin HCl (Ciloxan 0.3% Oph) 1 drop TID RIGHT EYE Last administered on 07/25/16 12:13; Admin Dose 1 DROP; Start 07/13/16 at 21:00 Sodium Bicarbonate (Sodium Bicarbonate Tab) 650 mg TID PO Last administered on 07/25/16 12:13; Admin Dose 650 MG; Start 07/14/16 at 10:00 Epoetin Mauricio (Epogen (Esrd)) 10,000 units MoWeFr@17 SC Last administered on 07/23 20:24; Admin Dose 10,000 UNITS; Start 07/14/16 at 17:00 Ferrous Sulfate (Ferrous Sulfate (Ec)) 325 mg BID PO Last administered on 09:31; Admin Dose 325 MG; Start 07/14/16 at 21:00 Hydromorphone HCl (Dilaudid) 0.5 mg Q4 PRN IV BREAKTHROUGH PAIN Last administered on 07/25/16 09:48; Admin Dose 0.5 MG; Start 07/14/16 at 17:00 Pantoprazole (Protonix Tab) 40 mg DAILY@06 PO Last administered on 07/25/16 05: 23; Admin Dose 40 MG; Start 07/15/16 at 06:00 Simethicone (Mylicon) 80 mg Q6H PRN GTB DISTENSION/GAS/BLOATING Last administered on 07/15/16 11:24; Admin Dose 80 MG; Start 07/15/16 at 10:30 Docusate Sodium (Colace) 250 mg DAILY PO Last administered on 07/25/16 09:31; Admin Dose 250 MG; Start 07/15/16 at 11:30 Polyethylene Glycol (Miralax) 17 gm DAILY PO Last administered on 07/25/16 09: 32; Admin Dose 17 GM; Start 07/15/16 at 11:30 Tamsulosin HCl (Flomax) 0.4 mg HS PO Last administered on 07/24/16 20:30; Admin Dose 0.4 MG; Start 07/15/16 at 21:00 Rifampin (Rifampin) 600 mg DAILY PO Last administered on 07/25/16 09:30; Admin Dose 600 MG; Start 07/15/16 at 14:00 Heparin Sodium (Porcine) (Heparin (5000 Units/0.5 ml)) 5,000 unit BID SC Last administered on 07/25/16 09:35; Admin Dose 5,000 UNIT; Start 07/16/16 at 21:00 Oxycodone/ Acetaminophen (Percocet (5/ 325)) 1 tab Q4H PRN PO BREAKTHROUGH PAIN Last administered on 07/19/16 12:44; Admin Dose 1 TAB; Start 07/16/16 at 22:00 Neomycin/ Polymyxin/ Hydrocortisone (Cortisporin Otic Susp) 4 drop TID LEFT EAR Last administered on 07/25/16 12:13; Admin Dose 4 DROP; Start 07/19/16 at 09: 30 Bumetanide (Bumex) 2 mg DAILY PO Last administered on 07/25/16 09:32; Admin Dose 2 MG; Start 07/21/16 at 09:00 Calcitriol 0.25 mcg 0.25 mcg DAILY PO Last administered on 07/25/16 09:32; Admin Dose 0.25 MCG; Start 07/21/16 at 15:00 Ondansetron HCl 8 mg/Dextrose 54 ml @ 108 mls/hr Q6H PRN IV NAUSEA AND/OR VOMITING Last administered on 07/25/16 09:48; Admin Dose 108 MLS/HR; Start at 15:30 Daptomycin/Sodium Chloride (Cubicin/NS) 100 ml @ 200 mls/hr Q48H IVPB Last administered on 07/23/16 17:27; Admin Dose 200 MLS/HR; Start 07/23/16 at 18:00 Neomycin/ Polymyxin/ Bacitracin (Neosporin Topical Oint) 1 applic BID TOP Last administered on 07/25/16 09:32; Admin Dose 1 APPLIC; Start 07/23/16 at 21:00 Hydralazine HCl (Apresoline) 100 mg BID PO Last administered on 07/25/16 09:31 ; Admin Dose 100 MG; Start 07/24/16 at 21:00 PHANI REYES Jul 25, 2016 14:22
--- NOTE | 2016-07-25 17:06 | DS ---
Date/Time of Note Date/Time of Note DATE: 07/25/16 TIME: 17:00 Discharge Summary Admission/Discharge Info Admit Date/Time Jul 10, 2016 at 15:03 Discharge Date/Time Final Diagnosis 1. Sepsis secondary to combination of spinal abscess and urinary tract infection, now resolved. 2. Lumbar epidural abscess, status post evacuation procedure performed by neurosurgery on 07/12/2016. 3. Acute on chronic kidney disease, now improving. 4. Type 2 diabetes. A1c 6.4. 5. Essential hypertension. 6. Anemia secondary to chronic kidney disease. 7. 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 8. Lumbar diskitis with osteomyelitis and abscess as mentioned above, status post surgical intervention as mentioned above. 9. Right eye conjunctivitis, improved. 10. Urinary tract infection, improved. Time spent discharging the patient 45 minutes. Patient Condition: Stable Hospital Course HOSPITAL COURSE: A 56-year-old male originally admitted on 07/10/2016 being discharged to SNF today. The patient initially came in after being transferred from outside hospital for spinal abscess. He also had sepsis and UTI. He was admitted, seen by multiple specialists during this hospital stay including neurosurgery team, renal team, infectious disease team, physical therapy team. The patient was found with lumbar epidural abscess positive for MRSA. He had evacuation surgery, I and D performed by neurosurgery team on . Afterwards, patient was placed on IV antibiotics. Again, his cultures did grow MRSA and he was placed on appropriate antibiotics. Infectious disease helped us manage that. He also has a history of chronic kidney disease and had acute on chronic renal insufficiency. He was seen by renal team for that. He was given diuretics for some mild anasarca as well as blood pressure medicines to help control his blood pressure better. Over the course of his hospital stay, the patient worked with physical therapy, slowly improved. His renal function slowly improved, although his creatinine was still elevated by the time of discharge, but he was having adequate urine output. As far as his infection, his white blood cell count remained stable. C. diff test was performed, it was negative. Again, his wound culture did grow MRSA, he was placed on appropriate antibiotics for that. He was able to ambulate and tolerate a p.o. diet. After getting clearance from the data security consultant teams, patient will be discharged home today in improved condition. DISCHARGE MEDICATIONS:(see med rec sheet) 1. Coreg 6.25 mg b.i.d. 2. Ferrous sulfate 325 mg b.i.d. 3. Hydralazine 75 mg t.i.d. 4. Floranex 1 tab p.o. t.i.d. 5. Rifampin 600 mg p.o. daily till 09-07-2016 6. Simethicone 80 mg q.6h. p.r.n. 7. Daptomycin IV dosing per pharmacy till 09-07-2016 8. Bumex 1 mg daily. 9. Vitamin D2 50,000 units as well. 10. Finasteride 5 mg daily. 11. Ativan 0.5 mg q.6h. p.r.n. 12. Protonix 40 mg p.o. daily. 13. Flomax 0.4 mg daily. Home Meds Active Scripts Pantoprazole* (Protonix*) 40 Mg Tablet.dr, 40 MG PO DAILY for 30 Days, TAB Prov:ERICPHANI S. 07/22/16 Rifampin* (Rifampin* Pediatric IV Syringe) 10 Mg/Ml Susp, 600 MG PO DAILY for 60 Days Prov:PHANI REYES S. 07/22/16 [Vancomycin Iv Per Pharmacy] 1 EA EACH No Conflict Check, 0 EA XX .PER PROTOCOL for 60 Days Prov:ERICPHANI S. 07/22/16 Simethicone* (Mylicon*) 80 Mg Tab, 80 MG GTB Q6H Y for DISTENSION/GAS/BLOATING for 30 Days, TAB 1 Refill Prov:ERICPHANI S. 07/22/16 Lactobacillus Acidoph/Bulgaricus* (Floranex*) 1 Each Tablet, 1 TAB PO TID for 30 Days, TAB 4 Refills Prov:ERICPHANI S. 07/22/16 Hydralazine Hcl* (Hydralazine Hcl*) 50 Mg Tab, 75 MG PO TID for 30 Days, TAB 2 Refills Prov:ERICPHANI S. 07/22/16 Ferrous Sulfate* (Ferrous Sulfate*) 325 Mg Tabec, 325 MG PO BID, #60 TAB 2 Refills Prov:ERICPHANI S. 07/22/16 Carvedilol* (Carvedilol*) 6.25 Mg Tablet, 6.25 MG PO BID, #60 TAB 2 Refills Prov:PHANI REYES. 07/22/16 Reported Medications Ergocalciferol (Vitamin D2) (VITAMIN D2) 50,000 Unit Capsule, 85435 UNIT PO ONCE , CAP every thursday07/10/16 Finasteride* (Finasteride*) 5 Mg Tablet, 5 MG PO DAILY, TAB 07/10/16 Tamsulosin Hcl* (Tamsulosin Hcl*) 0.4 Mg Cap.er.24h, 0.4 MG PO DAILY, CAP 07/10/16 Ferrous Sulfate* (Ferrous Sulfate*) 325 Mg Tabec, 325 MG PO DAILY, TAB 07/10/16 Bumetanide* (Bumetanide*) 1 Mg Tablet, 1 MG PO DAILY, TAB 07/10/16 Discontinued Reported Medications Ondansetron Hcl* (Zofran*) 4 Mg Tab, 4 MG IV* Q6H Y for NAUSEA AND OR VOMITING, TAB 07/10/16 Nifedipine* (Nifedipine ER*) 60 Mg Tablet.sa, 60 MG PO QAM, TAB.SA 07/10/16 Nifedipine* (Nifedipine ER*) 30 Mg Tablet.sa, 30 MG PO QHS, TAB.SA 07/10/16 Pending Labs Laboratory Tests Test 07/24/16 20:27 07/25/16 01:56 07/25/16 04:25 07/25/16 07:50 Bedside Glucose 147mg/dL (70-220) 114mg/dL (70-220) 101mg/dL (70-220) Anion Gap 14 (8-16) Basophils # 0.110^3/ul (0.0-0.1) Basophils % 1.3% (0.0-2.0) Blood Urea Nitrogen 55mg/dl (7-20) Calcium Level 8.5mg/dl (8.4-10.2) Carbon Dioxide Level 36mmol/L (21-31) Chloride Level 97mmol/L (97-110) Creatinine 2.59mg/dl (0.61-1.24) Eosinophils # 0.110^3/ul (0.0-0.5) Eosinophils % 1.6% (0.0-7.0) Glucose Level 107mg/dl (70-220) Hematocrit 35.3% (42.0-52.0) Hemoglobin 11.4g/dl (14.0-18.0) Lymphocytes # 1.110^3/ul (0.8-2.9) Lymphocytes % 29.9% (15.0-51.0) Mean Corpuscular Hemoglobin 29.5pg (29.0-33.0) Mean Corpuscular Hemoglobin Concent 32.3g/dl (32.0-37.0) Mean Corpuscular Volume 91.5fl (82.0-101.0) Mean Platelet Volume 9.3fl (7.4-10.4) Monocytes # 0.310^3/ul (0.3-0.9) Monocytes % 9.1% (0.0-11.0) Neutrophils # 2.210^3/ul (1.6-7.5) Neutrophils % 57.8% (39.0-77.0) Nucleated Red Blood Cells # 0.010^3/ul (0.0-0.0) Nucleated Red Blood Cells % 0.0/100WBC (0.0-0.0) Platelet Count 72628^3/UL (140-415) Potassium Level 4.3mmol/L (3.5-5.1) Red Blood Count 3.8610^6/ul (4.70-6.10) Red Cell Distribution Width 20.3% (11.5-14.5) Sodium Level 143mmol/L (135-144) White Blood Count 3.810^3/ul (4.8-10.8) Test 07/25/16 11:59 Bedside Glucose 168mg/dL (70-220) PHANI REYES Jul 25, 2016 17:06
[2016-07-25] MEDS: DAPTOMYCIN 360 MG in SOD CHLORIDE 0.9% 100 ML IVPB SCH (18:03)
[2016-07-25] MEDS: EPOETIN 10000 UNITS/1 ML INJ (ESRD) SC SCH (18:36)
[2016-07-25 20:00] VITALS: BP 166/100; PULSE 61; RESP 18
[2016-07-25] MEDS: TAMSULOSIN (SR) 0.4 MG CAP PO SCH (20:27)
== END 2016-07-25 21:37 | DRG 853 ==
LOC: PP2 15:03 → OBG 07-11 16:31 → TEL 07-12 18:31 → PP2 07-18 00:13
PROVIDERS: ADMIT Internal Medicine; ATTEND Internal Medicine
PROC: 30233N1 Transfusion of Nonautologous Red Blood Cells into Peripheral Vein, Percutaneous Approach (ICD-10-PCS; 2016-07-11)
PROC: 00NY0ZZ Release Lumbar Spinal Cord, Open Approach (ICD-10-PCS; 2016-07-12)
PROC: 0QB00ZX Excision of Lumbar Vertebra, Open Approach, Diagnostic (ICD-10-PCS; 2016-07-12)
PROC: 00CY0ZZ Extirpation of Matter from Lumbar Spinal Cord, Open Approach (ICD-10-PCS; principal; 2016-07-12 12:30)
PROC: 02HV33Z Insertion of Infusion Device into Superior Vena Cava, Percutaneous Approach (ICD-10-PCS; 2016-07-15)
PROC: B548ZZA Ultrasonography of Superior Vena Cava, Guidance (ICD-10-PCS; 2016-07-15)
DX: A41.02 Sepsis due to Methicillin resistant Staphylococcus aureus (principal); K68.12 Psoas muscle abscess; G06.1 Intraspinal abscess and granuloma; N17.9 Acute kidney failure, unspecified; E11.21 Type 2 diabetes mellitus with diabetic nephropathy; N18.3 Chronic kidney disease, stage 3 (moderate); E11.42 Type 2 diabetes mellitus with diabetic polyneuropathy; N39.0 Urinary tract infection, site not specified; H33.21 Serous retinal detachment, right eye; M46.26 Osteomyelitis of vertebra, lumbar region; M46.46 Discitis, unspecified, lumbar region; E11.319 Type 2 diabetes mellitus with unspecified diabetic retinopathy without macular edema; E11.22 Type 2 diabetes mellitus with diabetic chronic kidney disease; I12.9 Hypertensive chronic kidney disease with stage 1 through stage 4 chronic kidney disease, or unspecified chronic kidney disease; Z79.4 Long term (current) use of insulin; H10.9 Unspecified conjunctivitis; D63.1 Anemia in chronic kidney disease; H54.41 Blindness, right eye, normal vision left eye; E11.69 Type 2 diabetes mellitus with other specified complication; M48.06 Spinal stenosis, lumbar region; I95.1 Orthostatic hypotension; H91.93 Unspecified hearing loss, bilateral; R60.9 Edema, unspecified; R33.9 Retention of urine, unspecified; B37.7 Candidal sepsis; A41.59 Other Gram-negative sepsis
CPT/HCPCS: 36430; 36569; 36600; 71010; 72100; 72131; 72148; 76937; 80048; 80053; 80061; 80202; 81001; 81003; 82270; 82550; 82553; 82570; 82728; 82803; 82962; 83036; 83540; 83735; 83970; 84100; 84439; 84443; 84484; 85014; 85025; 85610; 85651; 85730; 86140; 86850; 86900; 86901; 86920; 87040; 87070; 87075; 87081; 87086; 87102; 87116; 88304; 93005; 93306; 97116; 97162; 97164; 97530; C1769; C9113; J0330; J0360; J0692; J0886; J1170; J1644; J1815; J1940; J2270; J2370; J2405; J2543; J2597; J3010; J3370; J3480; J7030; J7040; J7070; P9016

== ENCOUNTER 2016-08-06 12:48 | Inpatient (IN) | payer OTHER ==
[~2016-08-06] VITALS: Ht 162.6 cm; Wt 68.9 kg
[2016-08-06] VITALS (7 sets, daily range): BP systolic 162–196; BP diastolic 82–107; PULSE 61–66; RESP 18–20; Ht 162.6 cm; Wt 68.9 kg
[~2016-08-06 12:48] MED LIST changes: -AMLO-218 PO; +APR50 PO; +BUME1TAB18 PO; -CIPR500T4 PO; -DOXY100T2 PO; +ERGO500037 PO; +FER325 PO; +FINA5TAB4 PO; -LANT3I SC; -LAS20 PO; +MYL80 GTB; -OMEP20CA16 PO; +PANT40TA3 PO; +RIF120L PO; +TAMS0.4C2 PO; +Vancomycin Iv Per Pharmacy XX
[2016-08-06] MEDS ORDERED: NON-FORMULARY/PATIENT OWN MED ([Vancomycin Iv Per Pharmacy] (Vanco Iv Per Pharmacy) 0 EA) XX SCH (17:30)
[2016-08-06] MEDS ORDERED: GLUCOSE GEL 15 GRAM TUBE BUCCAL PRN (17:30)
[2016-08-06] MEDS ORDERED: GLUCOSE GEL 15 GRAM TUBE PO PRN ×2 (17:30)
[2016-08-06] MEDS ORDERED: ACETAMINOPHEN 650 MG SUPP PR PRN (17:30)
[2016-08-06] MEDS ORDERED: HYDROCODONE/APAP (5/325) TAB PO PRN ×2 (17:30)
[2016-08-06] MEDS ORDERED: BISACODYL 10 MG SUPP PR PRN (17:30)
[2016-08-06] MEDS ORDERED: DOCUSATE SODIUM 100 MG CAP PO PRN (17:30)
[2016-08-06] MEDS ORDERED: ERGOCALCIFEROL 50,000 UNIT CAP PO SCH (17:30)
[2016-08-06] MEDS ORDERED: NACL 0.9% 3 ML SYG IV SCH (17:30)
[2016-08-06] MEDS ORDERED: DEXTROSE 50% 50 ML SYRINGE IV PRN ×2 (17:30)
[2016-08-06] MEDS ORDERED: GLUCAGON 1 MG INJ IM PRN (17:30)
[2016-08-06] MEDS ORDERED: MAGNESIUM HYDROXIDE 30ML CUP PO PRN (17:30)
[2016-08-06] MEDS ORDERED: ACETAMINOPHEN 325 MG TAB PO PRN (17:30)
--- NOTE | 2016-08-06 18:01 | CONS ---
DATE OF ADMISSION: 08/06/2016 DATE OF CONSULTATION: 08/06/2016 REASON FOR CONSULTATION: Positive troponin, assess significance. REQUESTING PHYSICIAN: Dr. Gilbert from the hospitalist service and Yannick Damon from the hospita list service. HISTORY OF PRESENT ILLNESS: Mr. Rios is a 56-year-old male with a history of diabetes mellitus, h ypertension, anemia, prior back surgery, BPH, DVT who initially presented to an outside hospital wit h complaints of headache, back pain, uncontrolled hypertension. At outside hospital upon arrival, t emperature 97.8, blood pressure markedly elevated at 212/117, pulse 66, respirations 16, saturating 99%. The patient's labs revealed a white blood count 3.6, hemoglobin 12.4, a platelet count is not currently listed, creatinine 2.3, BUN of 48. Troponin 0.11. The patient was thereafter transferred to [facility] due to insurance reasons where he remains at this time and the jeana ent states that he has had some chest pain, none currently but prior to admit was having some chest pain described as a pressure-like sensation at rest. PAST MEDICAL HISTORY: As above in HPI. MEDICATIONS: Pending at time of dictation. MEDICATIONS PRIOR TO ADMISSION: Rifampin, Flomax, ferrous sulfate, carvedilol 6.25 mg p.o. b.i.d., hydralazine 75 mg t.i.d., Bumex 1 mg daily, Protonix 40 mg daily, simethicone, vitamin D3, Proscar 5 mg daily, vancomycin. ALLERGIES: NO KNOWN DRUG ALLERGIES. SOCIAL HISTORY: No tobacco, ETOH or illicit drug use. FAMILY HISTORY: No history of sudden cardiac or early CAD. REVIEW OF SYSTEMS: As above in HPI. CONSTITUTIONAL: No fevers, chills. PULMONARY: No current shortness of breath. CARDIOVASCULAR: Positive intermittent chest pain. GASTROINTESTINAL: No vomiting. GENITOURINARY: Renal failure. PSYCHIATRIC: No documented psychiatric history. NEUROLOGIC: No documented history of CVA. ENDOCRINE: Diabetes mellitus. PHYSICAL EXAMINATION: VITAL SIGNS: Temperature of 97.4, blood pressure markedly elevated at 190/107, pulse 62, respirator y rate 20, saturating 99%. GENERAL: The patient is alert, awake, complaining of intermittent substernal chest pain, headache, back pain. NECK: JVP approximately 10 cm water. CHEST: Upper airway sounds are rhonchorous sounds. Mildly decreased breath sounds at bases bilater ally. HEART: Regular rate and rhythm. Normal S1, S2, I/ systolic murmur, nondisplaced PMI. ABDOMEN: Positive bowel sounds, soft. EXTREMITIES: Trace edema, 1+ pulses bilaterally posterior tibial. LABORATORIES: No current labs from this hospital for my review at this time. The 2D echo from 02/2016 revealed at that time, EF of 65% with diastolic dysfunction and no signific ant valve abnormalities with diastolic dysfunction, mild mitral regurgitation. ECG: No electrocardiograms for my review at this time. IMPRESSION: 1. Positive troponin at outside hospital in the setting of renal failure, assess significance with a preserved ejection fraction by echo 02/2016. 2. Hypertension, uncontrolled consistent with hypertensive urgency/emergency. 3. Possible congestive heart failure, volume overload. 4. Back pain with history of spinal abscess. 5. Benign prostatic hypertrophy. 6. Headache. 7. Diabetes mellitus. RECOMMENDATIONS: 1. At this time, would maintain the patient on telemetry monitoring to follow rhythm and rate close ly. 2. Continue to trend the patient's cardiac enzymes to assess for any significant ongoing cardiac da mage. 3. Continue the patient's current carvedilol and hydralazine with up titration as necessary to impr ove overall systolic blood pressure control. Follow blood pressure after receiving. Will continue the patient's gentle Bumex, diuresis, following strict I's and O's and creatinine closely. 4. Check a fasting lipid panel for general risk stratification and initiate lipid-lowering medicati on as necessary. 5. Pain control. 6. We will give patient p.r.n. antihypertensives with intravenous push hydralazine as necessary. 7. We will consider stress testing this patient if the patient has no significant further uptrend o f cardiac enzymes to assess significance of in the setting of renal failure. Thank you for allowing me to take part in the care of this patient. I will continue to follow along very closely with you. Further recommendations will be made as the patient progresses through his inpatient hospital clinical course. Dictated By: TRIP HASSAN/ERICKA Conf#: [id number] DID#: [id number] CC: YANNICK DAMON WATER QUALITY ASSISTANT;*EndCC*
[2016-08-06] MEDS: morphine 2 MG INJ IV PRN ×2 (18:18→22:55)
[2016-08-06] MEDS: hydrALAzine 20 MG INJ IV PRN (18:18)
[2016-08-06] MEDS: INSULIN ASPART [NOVOLOG] 3 ML PEN SC SCH ×2 (19:01→21:57)
--- NOTE | 2016-08-06 20:12 | CONS ---
DATE OF ADMISSION: 08/06/2016 DATE OF CONSULTATION: RENAL CONSULTATION Thank you, Dr. Martin for asking me to participate in medical management of this patient. REASON FOR CONSULTATION: Renal failure. HISTORY OF PRESENT ILLNESS: This 56-year-old man is well known to me from his prior admissions to this hospital. I last saw this patient on his admission which started on 07/10/2016. At that time, the patient was admitted because of a lumbar spine diskitis and abscess formation. The patient eventually went to [facility] facility on 07/25/2016. The patient was admitted on 2016 because of back pain. The patient was transferred from [facility] after he was found to have a lumbar spine diskitis and an adjacent abscess. The patient, during his last admission, did undergo a surgery in which he had decompressive L2-L3 laminectomy and an evacuation of an L2-L3 epidural subacute abscess. That abscess did grow methicillin-resistant Staph aureus. The patient was on antibiotics, including vancomycin and daptomycin. The patient has a history of chronic kidney disease due to diabetic nephropathy. He has nephrotic syndrome. His serum creatinine has been around 2.5. The patient was sent today from the [facility] to [facility] for hypertension and headache. The patient said that he also had chest pain. The patient, at [facility], had a serum creatinine of 2.34 with a BUN of 48. The patient also complains of a feeling of water in his left ear with a sensation of fullness, which he has had for weeks. PAST MEDICAL HISTORY: The patient has the following past medical history: Hypertension, diabetes mellitus, diabetic retinopathy, detached retina of the left eye, anemia. This patient has severe postural hypotension. I did determine this during his last admission and instructed the nurses to take his blood pressure sitting because of the BP being high when he is lying down . PAST SURGICAL HISTORY: Left eye surgery, status post lumbar laminectomy and abscess drainage about 3 weeks ago. FAMILY HISTORY: No history of kidney disease or heart disease. SOCIAL HISTORY: The patient does not drink alcohol, smoke cigarettes or use illicit drugs. CURRENT MEDICATIONS: Include the followin. Creon pancreatic enzyme 1 capsule 3 times a day with meals. 2. Clonidine 0.1 mg every 6 hours as needed for hypertension. 3. Ferrous sulfate. 4. Finasteride 5 mg a day. 5. Furosemide 40 mg twice a day. 6. Lantus insulin. 7. Humalog insulin. 8. Nifedipine 90 mg twice a day. 9. Omeprazole 20 mg a day. 10. Prednisone 10 mg a day. 11. Tamsulosin 0.4 mg a day. PHYSICAL EXAMINATION: GENERAL: At this time reveals a well-developed man in no apparent distress. The patient is Japanese speaking, but I did have a gambling box person assist me. VITAL SIGNS: Temperature 97.4, pulse is 63, respirations 20, blood pressure 196 /98, pulse oximeter is 96% on room air. HEAD: Normocephalic. EYES: Extraocular muscles intact. Left eye sclerae is injected. NOSE AND MOUTH: Normal. NECK: Supple, no neck vein distention. LUNGS: Clear to auscultation. HEART: Regular rhythm. No murmurs, gallops or rubs. ABDOMEN: Soft, nontender. EXTREMITIES: Trace to +1 pretibial edema. IMPRESSION: 1. Chronic kidney disease due to diabetic nephropathy with nephrotic syndrome. The patient's serum creatinine now is at his baseline of about 2.5. I do not think that he has had any recent injury to his kidneys. 2. Severe postural hypotension. 3. Chest pain, rule out acute coronary syndrome. 4. Decreased hearing in the left ear. 5. Recent lumbar spine surgery for diskitis and adjacent abscess that grew methicillin-resistant Staphylococcus aureus. 6. Diabetes mellitus. 7. Benign prostatic hypertrophy. PLAN: 1. I would be careful with any hypertensive medication in this patient. I would recommend that his blood pressure be taken sitting after he has been in that position for at least a minute or 2. He is mainly bedridden, and his blood pressure lying down is usually quite high. 2. Recent back surgery for diskitis and back abscess. 3. He will need an ENT evaluation. Because of this chronic feeling of fullness in his left ear and decreased hearing. 4. Recommend infectious disease consultation. 5. I will continue to follow the patient along with you. Dictated By: JACOB WHEELER MD, ND/ERICKA Conf#: [id number] DID#: [id number] CASSANDRA
[2016-08-06 20:19] LABS: CK-MB 2.79 ng/ml (0.0-2.4)
[2016-08-06 20:20] LABS: TROPONIN-I 0.028 ng/ml (0.00-0.12)
[2016-08-06] MEDS ORDERED: FAMOTIDINE 20 MG INJ IV SCH (21:00)
[2016-08-06] MEDS: LACTOBACILLUS CHEW TAB PO SCH (21:36)
[2016-08-06] MEDS: FERROUS SULFATE (EC) 325 MG TAB PO SCH (21:36)
[2016-08-06] MEDS: ONDANSETRON 4 MG INJ IV PRN (21:36)
[2016-08-06] MEDS: ISOSORBIDE DINITRATE 10 MG TAB PO SCH (21:37)
[2016-08-06] MEDS: TAMSULOSIN (SR) 0.4 MG CAP PO SCH (21:37)
[2016-08-06] MEDS: HEPARIN 5,000 UNIT/0.5 ML SYG SC SCH (21:57)
[2016-08-06] MEDS ORDERED: VANCOMYCIN IV PER PHARMACY XX SCH (22:00)
[2016-08-06] MEDS ORDERED: VANCOMYCIN 1 GM in NS 250 ML IVPB SCH (22:00)
[2016-08-07] VITALS (15 sets, daily range): BP systolic 150–195; BP diastolic 68–109; PULSE 59–63; RESP 18–20
[2016-08-07 01:49] LABS: TROPONIN-I 0.035 ng/ml (0.00-0.12)
[2016-08-07 01:51] LABS: CK-MB 2.92 ng/ml (0.0-2.4)
[2016-08-07] MEDS: ONDANSETRON 4 MG INJ IV PRN ×3 (02:10→20:38)
[2016-08-07] MEDS: ACCU-CHEK XX SCH (03:33)
[2016-08-07] MEDS: morphine 2 MG INJ IV PRN ×3 (03:33→20:38)
--- NOTE | 2016-08-07 07:25 | HP ---
DATE OF ADMISSION: 08/06/2016 CHIEF COMPLAINT: Uncontrolled blood pressure. HISTORY OF PRESENT ILLNESS: This is a 56-year-old male with past medical history of type 2 diabetes , essential hypertension, suspect liver cirrhosis, chronic kidney disease, recent spinal abscess wit h status post surgery with MRSA noted in abscess, who did come to [facility] from outside facility secondary to uncontrolled blood pressure. The patient is a poor historian of his m edical history. Of note, the patient was recently admitted to [facility] on 07/10/2016 and discharged on 07/25/2016 due to recent sepsis from combination spinal abscess and also UTI. The pa tietrina of note did have recent lumbar epidural abscess with evacuation on 07/12/2016 by neurosurgeon. The patient did come to [facility] from intermediate facility due to reported uncontrolled blood pressure. On arrival, patient was found to have a blood pressure of 190/107. H e was reportedly given labetalol in the ER for which he did have some better response to. He jyoti gao denies any chest pain or shortness of breath. He does report having some back discomfort from h is recent back surgery. He does report having some blindness on his right eye, but this is chronic from his history of retinal detachment on the right side. Of note, he also had recent lumbar discit is with osteomyelitis and abscess as previously mentioned, status post surgical intervention. Notably, on his labs, he was seen with a BUN of 48 and a creatinine of 2.34. He did have positive l eukocyte esterase test from urinalysis. He does report that he has been taking blood pressure medic ine, but he does not know which medications he takes. He did have associated headaches with this hi gh blood pressure and he did have a CT scan of his brain done at outside hospital ([facility]) that did show him to have no acute intracranial bleed; however, there was seen a moderate to inder re left mastoid effusion with mild to moderate fluid in the middle ear on the left. He denied any c hest pain, but was noted with elevated troponin. This could be suspect secondary to his history of CKD. The patient denies any further symptoms. We will evaluate him for the aforementioned issues. MEDICAL/SURGICAL HISTORY 1. Type 2 diabetes. 2. Essential hypertension. 3. Anemia secondary to chronic kidney disease. 4. 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 5. Recent history of sepsis secondary to spinal abscess with MRSA and lumbar diskitis with osteomye litis. 6. History of recent urinary tract infection. SOCIAL HISTORY: The patient denies any cigarette smoking, alcohol consumption or illicit drug use. ALLERGIES: NO KNOWN ALLERGIES. FAMILY HISTORY: Noncontributory. HOME MEDICATIONS: 1. Rifampin 600 mg p.o. daily. 2. Tamsulosin 0.4 mg p.o. daily. 3. Ferrous sulfate 325 mg p.o. b.i.d. 4. Carvedilol 6.25 mg p.o. b.i.d. 5. Hydralazine 75 mg p.o. t.i.d. 6. Bumetanide 1 mg p.o. daily. 7. Floranex 1 tab p.o. t.i.d. 8. Protonix 40 mg p.o. daily. 9. Simethicone 80 mg q.6 hours as needed for gas. 10. Vitamin D2 50,000 units every Thursday. 11. Finasteride 5 mg p.o. daily. 12. Vancomycin, pharmacy to dose. REVIEW OF SYSTEMS: A 12-point review of systems obtained and entirely negative except that mentione d in the history of present illness. PHYSICAL EXAMINATION VITAL SIGNS: Temperature is 97.4, pulse is 63, respiratory rate is 20, blood pressure is 196/98 and pulse oximetry is 96% on room air. GENERAL: This is a 56-year-old male with no apparent distress noted at this time. HEENT: Pupils equal, round noted with some conjunctivitis on right eye and also reported blindness in right eye. NECK: Supple, nontender. No JVD. CARDIOVASCULAR: S1, S2 auscultated, regular rate. PULMONARY: Clear to auscultation bilaterally. No wheezing or rhonchi. ABDOMEN: Soft, nontender, nondistended. EXTREMITIES: There is edema noted bilateral lower extremities, +1 to +2. SKIN: There are noted kelly on thoracic to lumbar area from recent surgery clean, dry and intact. NEUROLOGIC: Alert, oriented x3. LABORATORY DATA: Hemoglobin is 12.4, hematocrit is 37.7 and WBC is 3.6. BUN is 48, creatinine 2.34 . Troponin T at 0.11. Urinalysis noted with positive leukocyte esterase test. IMPRESSION AND PLAN: 1. Uncontrolled blood pressure. Cardiology is consulted. We will adjust patient's blood pressure medications. Continue telemetry monitoring for now. 2. Elevated troponin, in the setting of chronic kidney disease. Research Quality Assurance Specialist to follow. We will t rend troponins. Of note, recent echocardiogram did show patient to have ejection fraction of 55% wi th stage I diastolic dysfunction. Echocardiogram was obtained in 06/2016. 3. Acute kidney injury on likely chronic kidney disease. Medical Laboratory Technician to follow. We will monitor renal panel. 4. Recent spinal abscess with methicillin-resistant Staphylococcus aureus. Will get ID consult to manage antibiotic therapy. We will follow up on CBC. 5. Urinary tract infection. Follow up on urine culture. 6. History of iron deficiency anemia. We will continue the patient on his iron supplement. 7. Benign prostatic hypertrophy. Continue on finasteride. 8. History of diabetes. Follow up on A1c. Continue on insulin regimen. 9. Deep venous thrombosis prophylaxis: Heparin. 10. Gastroesophageal reflux disease prophylaxis: Proton pump inhibitor. ADMISSION PROCESS TIME: 45 minutes. Discussed plan of care with Dr. Trevino. Dictated By: RANDY SCHNEIDER DRIVER RETRAINING INSTRUCTOR for JUDSON TREVINO MD RR/NTS Conf#: [id number] DID#: [id number]
[2016-08-07 07:33] LABS: ALBUMIN 2.4 g/dl (3.3-4.9)
[2016-08-07 07:34] LABS: POTASSIUM 5.5 mmol/L (3.5-5.1)
[2016-08-07 07:36] LABS: ALBUMIN/GLOBULIN RATIO 0.64; CREATININE 2.29 mg/dl (0.61-1.24); TOTAL PROTEIN 6.1 g/dl (6.1-8.1)
[2016-08-07 07:37] LABS: CALCIUM 7.6 mg/dl (8.4-10.2); CHOL/HDL RATIO 2.7 RATIO; MAGNESIUM 2.4 mg/dl (1.7-2.5)
[2016-08-07 07:49] LABS: T3 UPTAKE 43.5 % (23.5-40.5)
[2016-08-07 08:03] LABS: THYROID STIMULATING HORMONE 22.3 MIU/L (0.465-4.680)
[2016-08-07] MEDS: HEPARIN 5,000 UNIT/0.5 ML SYG SC SCH ×2 (08:34→20:41)
[2016-08-07] MEDS: INSULIN ASPART [NOVOLOG] 3 ML PEN SC SCH ×4 (08:34→20:41)
[2016-08-07] MEDS: ISOSORBIDE DINITRATE 10 MG TAB PO SCH ×2 (08:40→13:36)
[2016-08-07] MEDS: LACTOBACILLUS CHEW TAB PO SCH ×3 (08:41→20:36)
[2016-08-07] MEDS: BUMETANIDE 1 MG TAB PO SCH (08:41)
[2016-08-07] MEDS: RIFAMPIN 300 MG CAP PO SCH (08:41)
[2016-08-07] MEDS: PANTOPRAZOLE (EC) 40 MG TAB PO SCH (08:41)
[2016-08-07] MEDS: FERROUS SULFATE (EC) 325 MG TAB PO SCH ×2 (08:41→20:37)
[2016-08-07] MEDS: FINASTERIDE 5 MG TAB PO SCH (08:58)
[2016-08-07] MEDS ORDERED: NA POLYST SULFON 15 GM/60 ML BTL PO ONE (11:00)
--- NOTE | 2016-08-07 13:20 | RADRPT ---
PROCEDURE: CT temporal bones without contrast CLINICAL INDICATION: Left ear pain, hearing dysfunction TECHNIQUE: CT of the temporal bones without contrast was performed on a multidetector CT scanner, with multiplanar reformats. One or more of the following dose reduction techniques were used: Autom ated exposure control, adjustment in mA and / or kV according to patient size, use of iterative marilu nstructive technique. CTDIvol = 29 mGy and DLP = 285 mGy-cm. COMPARISON: None available FINDINGS: Right temporal bone: The external auditory canal is patent. The tympanic membrane is thin. The mastoid air cells and mi ddle ear cavity are clear. The ossicles and scutum are intact. The bony labyrinth structures are w ithin normal limits and the otic capsule is intact. The vestibular aqueduct is not enlarged. The in ternal auditory canal is normal in caliber. Left temporal bone: The external auditory canal is patent. There is partial opacification of the middle ear, and extens jan opacification of the mastoid air cells with effusion in the middle ear and a few scattered minim al effusions also seen in the mastoid the tympanic membrane appears thickened. No associated osseou s destructive changes are seen and the ossicles and scutum appear intact. The bony labyrinth struct ures are within normal limits and the otic capsule is intact. The vestibular aqueduct is not enlarge d. The internal auditory canal is normal in caliber. Moderate bilateral maxillary sinus mucosal thickening and mild bilateral anterior ethmoid air cell m ucosal thickening are also seen. IMPRESSION: 1. Left partial middle ear and extensive mastoid opacification with associated effusions compatible with otomastoiditis. 2. Paranasal sinus disease described above. RPTAT: VV .Kishore Alfred MD, MD Date Time Electronically viewed and signed by .Kishore Alfred MD, MD on 08/07/2016 13:20 .O/
--- NOTE | 2016-08-07 13:52 | CONS ---
Date/Time of Note Date/Time of Note DATE: 08/07/16 TIME: 13:42 Assessment/Plan Assessment/Plan Chief Complaint/Hosp Course 1. CKD due to diabetic nephropathy , with nephrotic syndrome 2. Hearing loss L ear , w/u in progress . 3. postural hypotension 4. DM 5. Chest pain 6. 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 Problems: Consultation Date/Type/Reason Admit Date/Time Aug 06, 2016 at 15:13 Initial Consult Date Type of Consultation: renal 24 HR Interval Summary Free Text/Dictation He c/o L ear feeling plugged , he just returned from CT of his head . Exam/Review of Systems Vital Signs Vitals Vital Signs Date Time Temp Pulse Resp B/P Pulse Ox O2 Delivery O2 Flow Rate FiO2 08/07/16 12:00 97.2 61 20 170/70 99 08/07/16 08:15 Nasal Cannula Intake and Output 08/06/16 08/06/16 08/07/16 15:00 23:00 07:00 Intake Total 800 ml Output Total 600 ml Balance 200 ml Exam Constitutional: alert, oriented Respiratory: clear to auscultation Cardiovascular: regular rate and rhythm Gastrointestinal: soft Extremities: edema Results Result Diagram: 08/07/16 0625 Results 24 hrs Laboratory Tests Test 08/06/16 17:57 08/06/16 19:45 08/06/16 20:36 08/07/16 00:43 Bedside Glucose 229 H 256 H Creatine Kinase 49 45 Creatine Kinase Index 5.7 6.5 Creatinine Kinase MB (Mass) 2.79 H 2.92 H Troponin I 0.028 0.035 Test 08/07/16 03:34 08/07/16 06:25 08/07/16 07:55 08/07/16 11:24 Bedside Glucose 208 208 168 Alanine Aminotransferase (ALT/SGPT) 33 Albumin 2.4 L Albumin/Globulin Ratio 0.64 Alkaline Phosphatase 96 Anion Gap 13 Aspartate Amino Transf (AST/SGOT) 29 Blood Urea Nitrogen 49 H Calcium Level 7.6 L Carbon Dioxide Level 27 Chloride Level 103 Cholesterol Level 128 Cholesterol/HDL Ratio 2.7 Creatinine 2.29 H Direct Bilirubin 0.00 Free Thyroxine Index 1.22 Globulin 3.70 H Glucose Level 189 HDL Cholesterol 47 Hemoglobin A1c 5.9 Indirect Bilirubin 0.0 LDL Cholesterol, Calculated 67 Magnesium Level 2.4 Phosphorus Level 7.0 H Potassium Level 5.5 H Sodium Level 137 Thyroid Stimulating Hormone (TSH) 22.300 H Thyroxine (T4) 2.8 L Total Bilirubin 0.0 L Total Protein 6.1 Triglycerides Level 71 Triiodothyronine (T3) Uptake 43.5 H Medications Medications Current Medications Bumetanide (Bumex) 1 mg DAILY PO Last administered on 08/07/16 08:41; Admin Dose 1 MG; Start 08/07/16 at 09:00 Carvedilol (Coreg) 6.25 mg BID PO Last administered on 08/07/16 08:42; Admin Dose 6.25 MG; Start 08/06/16 at 21:00 Ferrous Sulfate (Ferrous Sulfate (Ec)) 325 mg BID PO Last administered on 08:41; Admin Dose 325 MG; Start 08/06/16 at 21:00 Finasteride (Proscar) 5 mg DAILY PO Last administered on 08/07/16 08:58; Admin Dose 5 MG; Start 08/07/16 at 09:00 Hydralazine HCl (Apresoline) 75 mg TID PO Last administered on 08/07/16 13:36 ; Admin Dose 75 MG; Start 08/06/16 at 21:00 Lactobacillus Acidoph/Bulgaricus (Floranex) 1 tab TID PO Last administered on 13:35; Admin Dose 1 TAB; Start 08/06/16 at 21:00 Pantoprazole (Protonix Tab) 40 mg DAILY PO Last administered on 08/07/16 08:41 ; Admin Dose 40 MG; Start 08/07/16 at 09:00 Rifampin (Rifampin) 600 mg DAILY PO Last administered on 08/07/16 08:41; Admin Dose 600 MG; Start 08/07/16 at 09:00 Simethicone (Mylicon) 80 mg Q6H PRN GTB DISTENSION/GAS/BLOATING; Start at 17:30 Tamsulosin HCl (Flomax) 0.4 mg QHS PO Last administered on 08/06/16 21:37; Admin Dose 0.4 MG; Start 08/06/16 at 21:00 Ondansetron HCl (Zofran Inj) 4 mg Q6H PRN IV NAUSEA AND/OR VOMITING Last administered on 08/07/16 08:50; Admin Dose 4 MG; Start 08/06/16 at 17:30 Acetaminophen (Tylenol Tab) 650 mg Q6H PRN PO PAIN LEVEL 1-3 OR FEVER; Start at 17:30 Acetaminophen (Tylenol Supp) 650 mg Q6H PRN [place] PAIN LEVEL 1-3 OR FEVER; Start 08/06/16 at 17:30 Acetaminophen/ Hydrocodone Bitart ([place] (5/325)) 1 tab Q6H PRN PO MODERATE PAIN LEVEL 4-6; Start 08/06/16 at 17:30 Acetaminophen/ Hydrocodone Bitart ([place] (5/325)) 2 tab Q6H PRN PO SEVERE PAIN LEVEL 7-10; Start 08/06/16 at 17:30 Morphine Sulfate (morphine) 2 mg Q4H PRN IV SEVERE PAIN LEVEL 7-10 Last administered on 08/07/16 08:46; Admin Dose 2 MG; Start 08/06/16 at 17:30 Docusate Sodium (Colace) 100 mg Q12H PRN PO CONSTIPATION; Start 08/06/16 at 17: 30 Magnesium Hydroxide (Milk Of Mag) 30 ml DAILY PRN PO CONSTIPATION; Start at 17:30 Bisacodyl (Dulcolax Supp) 10 mg DAILY PRN [place] CONSTIPATION; Start 08/06/16 at 17 :30 Famotidine (Pepcid Iv) 20 mg Q24H IV Last administered on 08/06/16 21:37; Admin Dose 20 MG; Start 08/06/16 at 21:00 Heparin Sodium (Porcine) (Heparin (5000 Units/0.5 ml)) 5,000 unit Q12 SC Last administered on 08/07/16 08:34; Admin Dose 5,000 UNIT; Start 08/06/16 at 21:00 Diagnostic Test (Pha) (Accucheck) 1 ea 02 XX Last administered on 08/07/16 03: 33; Admin Dose 1 EA; Start 08/07/16 at 02:00 Hydralazine HCl (Apresoline) 10 mg Q6H PRN IV SBP>170 Last administered on 08/06 18:18; Admin Dose 10 MG; Start 08/06/16 at 17:30 Isosorbide Dinitrate (Isordil) 10 mg TID PO Last administered on 3/16/17at 13: 36; Admin Dose 10 MG; Start 08/06/16 at 21:00 Miscellaneous Information 1 ea NOTE XX ; Start 08/06/16 at 17:30 Glucose (Glutose) 15 gm Q15M PRN PO DECREASED GLUCOSE; Start 08/06/16 at 17:30 Glucose (Glutose) 22.5 gm Q15M PRN PO DECREASED GLUCOSE; Start 08/06/16 at 17: 30 Dextrose (D50w Syringe) 25 ml Q15M PRN IV DECREASED GLUCOSE; Start 08/06/16 at 17:30 Dextrose (D50w Syringe) 50 ml Q15M PRN IV DECREASED GLUCOSE; Start 08/06/16 at 17:30 Glucagon (Glucagen) 1 mg Q15M PRN IM DECREASED GLUCOSE; Start 08/06/16 at 17:30 Glucose (Glutose) 15 gm Q15M PRN BUCCAL DECREASED GLUCOSE; Start 08/06/16 at 17 :30 Vancomycin HCl PER PHARMACY DOSING NOTE XX ; Start 08/06/16 at 22:00 Vancomycin HCl (Vancocin) 100 ml @ 100 mls/hr Q48H IVPB ; Start 08/08/16 at 22: 00 JACOB WHEELER MD Aug 07, 2016 13:52
[2016-08-07] MEDS: PIPER-TAZO 2.25 GM (PMX) 50 ML IVPB SCH ×2 (17:15→20:56)
--- NOTE | 2016-08-07 17:30 | PN ---
DATE: 08/07/2016 SUBJECTIVE: The patient is alert, lying comfortably in bed. No fevers. VITAL SIGNS: Stable. ANTIMICROBIALS: Vancomycin. LABORATORY DATA: BUN 49, creatinine 2.29. DIAGNOSTICS: Facial CT on admission revealed left partial middle ear and extensive mastoid opacific ation with associated effusions compatible with otomastoiditis. Bilateral maxillary sinus mucosal t hickening and mild bilateral anterior ethmoid air cell mucosal thickening are also seen. INDWELLINGS: The patient has PICC line. PHYSICAL EXAMINATION: GENERAL: This is a well-developed middle-aged man who is awake, in no distress. HEENT: Head atraumatic, normocephalic. Sclerae anicteric. Buccal mucosa pink. NECK: Supple. CHEST: Rise symmetrical. Breath sounds clear. HEART: S1, S2. ABDOMEN: Soft. Bowel tones present. EXTREMITIES: No cyanosis. ASSESSMENT: 1. Left otomastoiditis with sinusitis. 2. Methicillin-resistant Staphylococcus aureus spinal abscess, status post decompressive laminectom y with evacuation of abscess done on 07/12/2016. 3. Chronic kidney disease with urinary retention. 4. Diabetes. 5. Hypertension. PLAN: The patient is clinically stable. He needs to be on IV vancomycin until 09/07. We will add Zosyn for otomastoiditis. Consider ENT evaluation. Follow recommendations of consultants. Dictated By: DORENE GARCIA BOILERHOUSE MECHANIC for PARDEEP VAZQUEZ MD NI/NTS Conf#: [id number] DID#: [id number]
--- NOTE | 2016-08-07 19:43 | CONS ---
Date/Time of Note Date/Time of Note DATE: 08/07/16 TIME: 19:39 Assessment/Plan Assessment/Plan Chief Complaint/Hosp Course IMPRESSION: 1. Positive troponin at outside hospital in the setting of renal failure, assess significance with a preserved ejection fraction by echo 02/2016-.All troponin negative here at [facility] 2. Hypertension, uncontrolled consistent with hypertensive urgency/emergency. 3. Possible congestive heart failure, volume overload. 4. Back pain with history of spinal abscess. 5. Benign prostatic hypertrophy. 6. Headache. 7. Diabetes mellitus. REcc: -Tele -serial ecg;'s -increase hydralazine to improve BP control and continue current coreg -Will add CCB to improve BP control -Follow volume status closely -AM lexiscan to assess for significant ischemia given positive troponin at osh Problems: Consultation Date/Type/Reason Admit Date/Time Aug 06, 2016 at 15:13 Initial Consult Date 08/06/16 Type of Consultation: Cardiology Reason for Consultation positive troponin Referring Provider: JUDSON TREVINO Exam/Review of Systems Vital Signs Vitals Vital Signs Date Time Temp Pulse Resp B/P Pulse Ox O2 Delivery O2 Flow Rate FiO2 08/07/16 16:55 61 08/07/16 15:15 150/85 08/07/16 15:00 97.9 20 94 08/07/16 08:15 Nasal Cannula Intake and Output 08/06/16 08/06/16 08/07/16 15:00 23:00 07:00 Intake Total 800 ml Output Total 600 ml Balance 200 ml Exam Review of Systems: CONSTITUTIONAL: No fevers, chills. PULMONARY: No sob CARDIOVASCULAR: No chest pain/palpitations GASTROINTESTINAL: No nausea/vomiting. GENITOURINARY: No hematuria/dysuria. MUSCULOSKELETAL: No myagias/arthalgias. PSYCHIATRIC: The patient denies depression. NEUROLOGIC: No weakness Constitutional: alert, oriented Psych: no complaints Head: normocephalic ENMT: mucosa pink and moist Neck: jvd (9 cm water), supple Respiratory: diminished breath sounds (at bases/B) Cardiovascular: regular rate and rhythm Gastrointestinal: non-tender, soft Musculoskeletal: muscle tone (normal) Extremities: edema (none) Neurological: other (No focal deficits) Results Result Diagram: 08/07/16 0625 Results 24 hrs Laboratory Tests Test 08/06/16 19:45 08/06/16 20:36 08/07/16 00:43 08/07/16 03:34 Creatine Kinase 49 45 Creatine Kinase Index 5.7 6.5 Creatinine Kinase MB (Mass) 2.79 H 2.92 H Troponin I 0.028 0.035 Bedside Glucose 256 H 208 Test 08/07/16 06:25 08/07/16 07:55 08/07/16 11:24 08/07/16 17:35 Alanine Aminotransferase (ALT/SGPT) 33 Albumin 2.4 L Albumin/Globulin Ratio 0.64 Alkaline Phosphatase 96 Anion Gap 13 Aspartate Amino Transf (AST/SGOT) 29 Blood Urea Nitrogen 49 H Calcium Level 7.6 L Carbon Dioxide Level 27 Chloride Level 103 Cholesterol Level 128 Cholesterol/HDL Ratio 2.7 Creatinine 2.29 H Direct Bilirubin 0.00 Free Thyroxine Index 1.22 Globulin 3.70 H Glucose Level 189 HDL Cholesterol 47 Hemoglobin A1c 5.9 Indirect Bilirubin 0.0 LDL Cholesterol, Calculated 67 Magnesium Level 2.4 Phosphorus Level 7.0 H Potassium Level 5.5 H Sodium Level 137 Thyroid Stimulating Hormone (TSH) 22.300 H Thyroxine (T4) 2.8 L Total Bilirubin 0.0 L Total Protein 6.1 Triglycerides Level 71 Triiodothyronine (T3) Uptake 43.5 H Bedside Glucose 208 168 169 Medications Medications Current Medications Bumetanide (Bumex) 1 mg DAILY PO Last administered on 08/07/16 08:41; Admin Dose 1 MG; Start 08/07/16 at 09:00 Carvedilol (Coreg) 6.25 mg BID PO Last administered on 08/07/16 08:42; Admin Dose 6.25 MG; Start 08/06/16 at 21:00 Ferrous Sulfate (Ferrous Sulfate (Ec)) 325 mg BID PO Last administered on 08:41; Admin Dose 325 MG; Start 08/06/16 at 21:00 Finasteride (Proscar) 5 mg DAILY PO Last administered on 08/07/16 08:58; Admin Dose 5 MG; Start 08/07/16 at 09:00 Hydralazine HCl (Apresoline) 75 mg TID PO Last administered on 08/07/16 13:36 ; Admin Dose 75 MG; Start 08/06/16 at 21:00 Lactobacillus Acidoph/Bulgaricus (Floranex) 1 tab TID PO Last administered on 13:35; Admin Dose 1 TAB; Start 08/06/16 at 21:00 Pantoprazole (Protonix Tab) 40 mg DAILY PO Last administered on 08/07/16 08:41 ; Admin Dose 40 MG; Start 08/07/16 at 09:00 Rifampin (Rifampin) 600 mg DAILY PO Last administered on 08/07/16 08:41; Admin Dose 600 MG; Start 08/07/16 at 09:00 Simethicone (Mylicon) 80 mg Q6H PRN GTB DISTENSION/GAS/BLOATING; Start at 17:30 Tamsulosin HCl (Flomax) 0.4 mg QHS PO Last administered on 08/06/16 21:37; Admin Dose 0.4 MG; Start 08/06/16 at 21:00 Ondansetron HCl (Zofran Inj) 4 mg Q6H PRN IV NAUSEA AND/OR VOMITING Last administered on 08/07/16 08:50; Admin Dose 4 MG; Start 08/06/16 at 17:30 Acetaminophen (Tylenol Tab) 650 mg Q6H PRN PO PAIN LEVEL 1-3 OR FEVER; Start at 17:30 Acetaminophen (Tylenol Supp) 650 mg Q6H PRN [place] PAIN LEVEL 1-3 OR FEVER; Start 08/06/16 at 17:30 Acetaminophen/ Hydrocodone Bitart ([place] (5/325)) 1 tab Q6H PRN PO MODERATE PAIN LEVEL 4-6; Start 08/06/16 at 17:30 Acetaminophen/ Hydrocodone Bitart ([place] (5/325)) 2 tab Q6H PRN PO SEVERE PAIN LEVEL 7-10; Start 08/06/16 at 17:30 Morphine Sulfate (morphine) 2 mg Q4H PRN IV SEVERE PAIN LEVEL 7-10 Last administered on 08/07/16 08:46; Admin Dose 2 MG; Start 08/06/16 at 17:30 Docusate Sodium (Colace) 100 mg Q12H PRN PO CONSTIPATION; Start 08/06/16 at 17: 30 Magnesium Hydroxide (Milk Of Mag) 30 ml DAILY PRN PO CONSTIPATION; Start at 17:30 Bisacodyl (Dulcolax Supp) 10 mg DAILY PRN [place] CONSTIPATION; Start 08/06/16 at 17 :30 Heparin Sodium (Porcine) (Heparin (5000 Units/0.5 ml)) 5,000 unit Q12 SC Last administered on 08/07/16 08:34; Admin Dose 5,000 UNIT; Start 08/06/16 at 21:00 Diagnostic Test (Pha) (Accucheck) 1 ea 02 XX Last administered on 08/07/16 03: 33; Admin Dose 1 EA; Start 08/07/16 at 02:00 Hydralazine HCl (Apresoline) 10 mg Q6H PRN IV SBP>170 Last administered on 08/06 18:18; Admin Dose 10 MG; Start 08/06/16 at 17:30 Isosorbide Dinitrate (Isordil) 10 mg TID PO Last administered on 08/07/16 13: 36; Admin Dose 10 MG; Start 08/06/16 at 21:00 Miscellaneous Information 1 ea NOTE XX ; Start 08/06/16 at 17:30 Glucose (Glutose) 15 gm Q15M PRN PO DECREASED GLUCOSE; Start 08/06/16 at 17:30 Glucose (Glutose) 22.5 gm Q15M PRN PO DECREASED GLUCOSE; Start 08/06/16 at 17: 30 Dextrose (D50w Syringe) 25 ml Q15M PRN IV DECREASED GLUCOSE; Start 08/06/16 at 17:30 Dextrose (D50w Syringe) 50 ml Q15M PRN IV DECREASED GLUCOSE; Start 08/06/16 at 17:30 Glucagon (Glucagen) 1 mg Q15M PRN IM DECREASED GLUCOSE; Start 08/06/16 at 17:30 Glucose (Glutose) 15 gm Q15M PRN BUCCAL DECREASED GLUCOSE; Start 08/06/16 at 17 :30 Vancomycin HCl PER PHARMACY DOSING NOTE XX ; Start 08/06/16 at 22:00 Vancomycin HCl (Vancocin) 100 ml @ 100 mls/hr Q48H IVPB ; Start 08/08/16 at 22: 00 Levothyroxine Sodium 50 mcg 50 mcg DAILY@06 PO ; Start 08/08/16 at 06:00 Piperacillin Sod/ Tazobactam Sod (Zosyn 2.25gm/ 50ml (Pmx)) 50 ml @ 100 mls/hr Q8 IVPB Last administered on 3/16/17at 17:15; Admin Dose 100 MLS/HR; Start at 16:30 TRIP DE LEON Aug 07, 2016 19:43
[2016-08-07] MEDS: TAMSULOSIN (SR) 0.4 MG CAP PO SCH (20:37)
[2016-08-07] MEDS: ISOSORBIDE DINITRATE 20 MG TAB PO SCH (20:38)
--- NOTE | 2016-08-07 22:46 | CONS ---
DATE OF ADMISSION: 08/06/2016 DATE OF CONSULTATION: INPATIENT CONSULTATION HISTORY OF PRESENT ILLNESS: Larry Rios is 56-year-old gentleman, who was complaining of drainage out of the left ear when he was admitted. He admits to pain in the left, as well as the right ear, but much more on the left when compared with the right. He has some hearing loss, but denies any d izziness or ringing. PAST MEDICAL HISTORY: Diabetes, hypertension, DVT, chronic pancreatitis. PAST SURGICAL HISTORY: Back surgery for a psoas abscess and PICC line. ALLERGIES: NO KNOWN DRUG ALLERGIES. MEDICATIONS: Reviewed. SOCIAL HISTORY: Positive for alcohol abuse in the distant past, negative for tobacco or drug abuse. FAMILY HISTORY: Negative for any heart, lung, kidney failure, liver disease. REVIEW OF SYSTEMS: A 12-point review of systems otherwise negative. PHYSICAL EXAMINATION: On examination today, the right canal has a small amount of cerumen. The ear drum is intact without erythema. The left canal shows some purulent debris inferiorly, as well as s ome tenderness. The eardrum is intact and olmedo without erythema or bulging. The oral cavity, oroph arynx, tongue and mouth are normal. Oropharynx is clear. Neck shows no lymphadenopathy or thyrome georgette. Trachea is midline. without lesions. Nose shows a midline septum. Mucosa with erythe ma and edema. IMPRESSION: Left otitis externa, possible acute otitis externa. PLAN: At this point, I will have him started on ear drops. I suspect with a week of treatment, he should be far better in the interim. Please feel free to reconsult at any time. Dictated By: ZAHEER CALI/ERICKA Conf#: [id number] DID#: [id number]
[2016-08-08] VITALS (12 sets, daily range): BP systolic 153–185; BP diastolic 75–99; PULSE 62–72; RESP 17–68
[2016-08-08] MEDS: NEOMYC/POLYMYX/HC 10 ML OTIC SUSP BOTH EARS SCH ×4 (00:30→20:44)
[2016-08-08] MEDS: morphine 2 MG INJ IV PRN ×4 (01:58→20:35)
[2016-08-08] MEDS: ACCU-CHEK XX SCH (02:18)
[2016-08-08] MEDS: PIPER-TAZO 2.25 GM (PMX) 50 ML IVPB SCH ×3 (05:04→22:56)
[2016-08-08] MEDS: LEVOTHYROXINE 50 MCG TAB PO SCH (05:04)
[2016-08-08] MEDS: hydrALAzine 20 MG INJ IV PRN (05:04)
[2016-08-08 07:41] LABS: ADD SCAN DIFF NO
[2016-08-08 07:49] LABS: BASOPHILS % 0.7 % (0.0-2.0); EOSINOPHILS # 0.2 10^3/ul (0.0-0.5); EOSINOPHILS % 8.5 % (0.0-7.0); HEMATOCRIT 34.4 % (42.0-52.0); HEMOGLOBIN 11.1 g/dl (14.0-18.0); LYMPHOCYTES # 0.8 10^3/ul (0.8-2.9); MEAN CORPUSCULAR HEMOGLOBIN 30.6 pg (29.0-33.0); MEAN CORPUSCULAR HGB CONC 32.3 g/dl (32.0-37.0); MEAN CORPUSCULAR VOLUME 94.8 fl (82.0-101.0); MEAN PLATELET VOLUME 10.6 fl (7.4-10.4); MONOCYTE # 0.2 10^3/ul (0.3-0.9); MONOCYTES % 8.5 % (0.0-11.0); NEUTROPHIL # 1.5 10^3/ul (1.6-7.5); NEUTROPHILS % 52.9 % (39.0-77.0); PLATELET COUNT 143 10^3/UL (140-415); RED BLOOD COUNT 3.63 10^6/ul (4.70-6.10); RED CELL DISTRIBUTION WIDTH 19.3 % (11.5-14.5); WHITE BLOOD COUNT 2.8 10^3/ul (4.8-10.8)
[2016-08-08] MEDS: ONDANSETRON 4 MG INJ IV PRN ×2 (08:03→20:35)
[2016-08-08 08:11] LABS: POTASSIUM 4.9 mmol/L (3.5-5.1)
[2016-08-08 08:13] LABS: CREATININE 2.27 mg/dl (0.61-1.24)
[2016-08-08 08:14] LABS: CALCIUM 7.1 mg/dl (8.4-10.2)
[2016-08-08] MEDS: LACTOBACILLUS CHEW TAB PO SCH ×4 (08:41→20:35)
[2016-08-08] MEDS: BUMETANIDE 1 MG TAB PO SCH (08:41)
[2016-08-08] MEDS: ISOSORBIDE DINITRATE 20 MG TAB PO SCH ×3 (08:41→20:35)
[2016-08-08] MEDS: FERROUS SULFATE (EC) 325 MG TAB PO SCH ×3 (08:41→20:35)
[2016-08-08] MEDS: RIFAMPIN 300 MG CAP PO SCH ×2 (08:41→09:00)
[2016-08-08] MEDS: PANTOPRAZOLE (EC) 40 MG TAB PO SCH (08:41)
[2016-08-08] MEDS: FINASTERIDE 5 MG TAB PO SCH (08:42)
[2016-08-08] MEDS: HEPARIN 5,000 UNIT/0.5 ML SYG SC SCH ×2 (08:43→20:38)
[2016-08-08] MEDS: INSULIN ASPART [NOVOLOG] 3 ML PEN SC SCH ×4 (08:44→20:37)
--- NOTE | 2016-08-08 12:17 | CONS ---
Date/Time of Note Date/Time of Note DATE: 08/08/16 TIME: 12:09 Assessment/Plan Assessment/Plan Chief Complaint/Hosp Course 1. CKD due to diabetic nephropathy , with nephrotic syndrome , His renal function is stable and at baseline . I will sign off at this and see on request . 2. Hearing loss L ear , CT scan shows L otomastoiditis . 3. postural hypotension , will check orthostatic BP's . 4. DM 5. Chest pain 6. 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 Problems: Consultation Date/Type/Reason Admit Date/Time Aug 06, 2016 at 15:13 Type of Consultation: Cardiology Referring Provider: JUDSON TREVINO 24 HR Interval Summary Free Text/Dictation He is laying in bed . He does not appear to have any new problems . He is being treated for bilateral ear infections . Exam/Review of Systems Vital Signs Vitals Vital Signs Date Time Temp Pulse Resp B/P Pulse Ox O2 Delivery O2 Flow Rate FiO2 08/08/16 12:02 97.7 63 18 164/88 94 08/07/16 08:15 Nasal Cannula Intake and Output 08/07/16 08/07/16 08/08/16 15:00 23:00 07:00 Intake Total 1050 ml Output Total 550 ml Balance 500 ml Exam Constitutional: alert Respiratory: clear to auscultation, normal air movement Cardiovascular: regular rate and rhythm Gastrointestinal: soft Extremities: edema Results Result Diagram: 08/08/16 0630 08/08/16 0630 Results 24 hrs Laboratory Tests Test 08/07/16 17:35 08/08/16 01:48 08/08/16 06:30 08/08/16 07:51 Bedside Glucose 169 208 171 Anion Gap 13 Basophils # 0.0 Basophils % 0.7 Blood Urea Nitrogen 48 H Calcium Level 7.1 L Carbon Dioxide Level 27 Chloride Level 103 Creatinine 2.27 H Eosinophils # 0.2 Eosinophils % 8.5 H Glucose Level 162 Hematocrit 34.4 L Hemoglobin 11.1 L Lymphocytes # 0.8 Lymphocytes % 29.0 Mean Corpuscular Hemoglobin 30.6 Mean Corpuscular Hemoglobin Concent 32.3 Mean Corpuscular Volume 94.8 Mean Platelet Volume 10.6 H Monocytes # 0.2 L Monocytes % 8.5 Neutrophils # 1.5 L Neutrophils % 52.9 Nucleated Red Blood Cells # 0.0 Nucleated Red Blood Cells % 0.0 Platelet Count 143 # Potassium Level 4.9 Red Blood Count 3.63 L Red Cell Distribution Width 19.3 H Sodium Level 138 White Blood Count 2.8 #L Test 08/08/16 11:39 Bedside Glucose 143 Medications Medications Current Medications Bumetanide (Bumex) 1 mg DAILY PO Last administered on 08/08/16 08:41; Admin Dose 1 MG; Start 08/07/16 at 09:00 Carvedilol (Coreg) 6.25 mg BID PO Last administered on 08/08/16 08:42; Admin Dose 6.25 MG; Start 08/06/16 at 21:00 Ferrous Sulfate (Ferrous Sulfate (Ec)) 325 mg BID PO Last administered on 20:37; Admin Dose 325 MG; Start 08/06/16 at 21:00 Finasteride (Proscar) 5 mg DAILY PO Last administered on 08/08/16 08:42; Admin Dose 5 MG; Start 08/07/16 at 09:00 Lactobacillus Acidoph/Bulgaricus (Floranex) 1 tab TID PO Last administered on 20:36; Admin Dose 1 TAB; Start 08/06/16 at 21:00 Pantoprazole (Protonix Tab) 40 mg DAILY PO Last administered on 08/08/16 08:41 ; Admin Dose 40 MG; Start 08/07/16 at 09:00 Rifampin (Rifampin) 600 mg DAILY PO Last administered on 08/07/16 08:41; Admin Dose 600 MG; Start 08/07/16 at 09:00 Simethicone (Mylicon) 80 mg Q6H PRN GTB DISTENSION/GAS/BLOATING; Start at 17:30 Tamsulosin HCl (Flomax) 0.4 mg QHS PO Last administered on 08/07/16 20:37; Admin Dose 0.4 MG; Start 08/06/16 at 21:00 Ondansetron HCl (Zofran Inj) 4 mg Q6H PRN IV NAUSEA AND/OR VOMITING Last administered on 08/08/16 08:03; Admin Dose 4 MG; Start 08/06/16 at 17:30 Acetaminophen (Tylenol Tab) 650 mg Q6H PRN PO PAIN LEVEL 1-3 OR FEVER; Start at 17:30 Acetaminophen (Tylenol Supp) 650 mg Q6H PRN [place] PAIN LEVEL 1-3 OR FEVER; Start 08/06/16 at 17:30 Acetaminophen/ Hydrocodone Bitart ([place] (5/325)) 1 tab Q6H PRN PO MODERATE PAIN LEVEL 4-6; Start 08/06/16 at 17:30 Acetaminophen/ Hydrocodone Bitart ([place] (5/325)) 2 tab Q6H PRN PO SEVERE PAIN LEVEL 7-10; Start 08/06/16 at 17:30 Morphine Sulfate (morphine) 2 mg Q4H PRN IV SEVERE PAIN LEVEL 7-10 Last administered on 08/08/16 07:48; Admin Dose 2 MG; Start 08/06/16 at 17:30 Docusate Sodium (Colace) 100 mg Q12H PRN PO CONSTIPATION; Start 08/06/16 at 17: 30 Magnesium Hydroxide (Milk Of Mag) 30 ml DAILY PRN PO CONSTIPATION; Start at 17:30 Bisacodyl (Dulcolax Supp) 10 mg DAILY PRN [place] CONSTIPATION; Start 08/06/16 at 17 :30 Heparin Sodium (Porcine) (Heparin (5000 Units/0.5 ml)) 5,000 unit Q12 SC Last administered on 08/08/16 08:43; Admin Dose 5,000 UNIT; Start 08/06/16 at 21:00 Diagnostic Test (Pha) (Accucheck) 1 ea 02 XX Last administered on 08/08/16 02: 18; Admin Dose 1 EA; Start 08/07/16 at 02:00 Hydralazine HCl (Apresoline) 10 mg Q6H PRN IV SBP>170 Last administered on 08/08 05:04; Admin Dose 10 MG; Start 08/06/16 at 17:30 Miscellaneous Information 1 ea NOTE XX ; Start 08/06/16 at 17:30 Glucose (Glutose) 15 gm Q15M PRN PO DECREASED GLUCOSE; Start 08/06/16 at 17:30 Glucose (Glutose) 22.5 gm Q15M PRN PO DECREASED GLUCOSE; Start 08/06/16 at 17: 30 Dextrose (D50w Syringe) 25 ml Q15M PRN IV DECREASED GLUCOSE; Start 08/06/16 at 17:30 Dextrose (D50w Syringe) 50 ml Q15M PRN IV DECREASED GLUCOSE; Start 08/06/16 at 17:30 Glucagon (Glucagen) 1 mg Q15M PRN IM DECREASED GLUCOSE; Start 08/06/16 at 17:30 Glucose (Glutose) 15 gm Q15M PRN BUCCAL DECREASED GLUCOSE; Start 08/06/16 at 17 :30 Vancomycin HCl PER PHARMACY DOSING NOTE XX ; Start 08/06/16 at 22:00 Vancomycin HCl (Vancocin) 100 ml @ 100 mls/hr Q48H IVPB ; Start 08/08/16 at 22: 00 Levothyroxine Sodium 50 mcg 50 mcg DAILY@06 PO Last administered on 08/08/16 05:04; Admin Dose 50 MCG; Start 08/08/16 at 06:00 Piperacillin Sod/ Tazobactam Sod (Zosyn 2.25gm/ 50ml (Pmx)) 50 ml @ 100 mls/hr Q8 IVPB Last administered on 08/08/16 05:04; Admin Dose 100 MLS/HR; Start at 16:30 Hydralazine HCl (Apresoline) 100 mg TID PO Last administered on 08/08/16 08:42 ; Admin Dose 100 MG; Start 08/07/16 at 21:00 Isosorbide Dinitrate (Isordil) 20 mg TID PO Last administered on 08/08/16 08: 41; Admin Dose 20 MG; Start 08/07/16 at 21:00 Neomycin/ Polymyxin/ Hydrocortisone (Cortisporin Otic Susp) 4 drop TID BOTH EARS Last administered on 08/08/16 08:45; Admin Dose 4 DROP; Start 08/07/16 at 23:30; Stop 08/14/16 at 23:29 JACOB WHEELER MD Aug 08, 2016 12:17
--- NOTE | 2016-08-08 14:26 | CONS ---
Date/Time of Note Date/Time of Note DATE: 08/08/16 TIME: 14:24 Assessment/Plan Assessment/Plan Chief Complaint/Hosp Course IMPRESSION: 1. Positive troponin at outside hospital in the setting of renal failure, assess significance with a preserved ejection fraction by echo 02/2016-.All troponin negative here at [facility] 2. Hypertension, uncontrolled consistent with hypertensive urgency/emergency. 3. Possible congestive heart failure, volume overload. 4. Back pain with history of spinal abscess. 5. Benign prostatic hypertrophy. 6. Headache. 7. Diabetes mellitus. REcc: -Tele -serial ecg;'s -increase hydralazine to improve BP control and continue current coreg -Will add CCB to improve BP control -Follow volume status closely -AM lexiscan to assess for significant ischemia given positive troponin at osh Problems: Consultation Date/Type/Reason Admit Date/Time Aug 06, 2016 at 15:13 Initial Consult Date 08/06/16 Type of Consultation: Cardiology Reason for Consultation HTN Referring Provider: JUDOSN TREVINO Exam/Review of Systems Vital Signs Vitals Vital Signs Date Time Temp Pulse Resp B/P Pulse Ox O2 Delivery O2 Flow Rate FiO2 08/08/16 12:20 64 08/08/16 12:02 97.7 18 164/88 94 08/07/16 08:15 Nasal Cannula Intake and Output 08/07/16 08/07/16 08/08/16 14:59 22:59 06:59 Intake Total 1050 ml Output Total 550 ml Balance 500 ml Exam Review of Systems: CONSTITUTIONAL: No fevers, chills. PULMONARY: No sob CARDIOVASCULAR: No chest pain/palpitations GASTROINTESTINAL: No nausea/vomiting. GENITOURINARY: No hematuria/dysuria. MUSCULOSKELETAL: No myagias/arthalgias. PSYCHIATRIC: The patient denies depression. NEUROLOGIC: No weakness Constitutional: alert Psych: no complaints Head: normocephalic ENMT: mucosa pink and moist Neck: jvd (8 cm water), non-tender, supple Respiratory: clear to auscultation Cardiovascular: regular rate and rhythm Gastrointestinal: non-tender, soft Extremities: edema (none) Neurological: other (No focal deficits) Results Result Diagram: 08/08/16 0630 08/08/16 0630 Results 24 hrs Laboratory Tests Test 08/07/16 17:35 08/08/16 01:48 08/08/16 06:30 08/08/16 07:51 Bedside Glucose 169 208 171 Anion Gap 13 Basophils # 0.0 Basophils % 0.7 Blood Urea Nitrogen 48 H Calcium Level 7.1 L Carbon Dioxide Level 27 Chloride Level 103 Creatinine 2.27 H Eosinophils # 0.2 Eosinophils % 8.5 H Glucose Level 162 Hematocrit 34.4 L Hemoglobin 11.1 L Lymphocytes # 0.8 Lymphocytes % 29.0 Mean Corpuscular Hemoglobin 30.6 Mean Corpuscular Hemoglobin Concent 32.3 Mean Corpuscular Volume 94.8 Mean Platelet Volume 10.6 H Monocytes # 0.2 L Monocytes % 8.5 Neutrophils # 1.5 L Neutrophils % 52.9 Nucleated Red Blood Cells # 0.0 Nucleated Red Blood Cells % 0.0 Parathyroid Hormone (Intact) Platelet Count 143 # Potassium Level 4.9 Red Blood Count 3.63 L Red Cell Distribution Width 19.3 H Sodium Level 138 White Blood Count 2.8 #L Test 08/08/16 11:39 Bedside Glucose 143 Medications Medications Current Medications Bumetanide (Bumex) 1 mg DAILY PO Last administered on 08/08/16 08:41; Admin Dose 1 MG; Start 08/07/16 at 09:00 Carvedilol (Coreg) 6.25 mg BID PO Last administered on 08/08/16 08:42; Admin Dose 6.25 MG; Start 08/06/16 at 21:00 Ferrous Sulfate (Ferrous Sulfate (Ec)) 325 mg BID PO Last administered on 20:37; Admin Dose 325 MG; Start 08/06/16 at 21:00 Finasteride (Proscar) 5 mg DAILY PO Last administered on 08/08/16 08:42; Admin Dose 5 MG; Start 08/07/16 at 09:00 Lactobacillus Acidoph/Bulgaricus (Floranex) 1 tab TID PO Last administered on 20:36; Admin Dose 1 TAB; Start 08/06/16 at 21:00 Pantoprazole (Protonix Tab) 40 mg DAILY PO Last administered on 08/08/16 08:41 ; Admin Dose 40 MG; Start 08/07/16 at 09:00 Rifampin (Rifampin) 600 mg DAILY PO Last administered on 08/07/16 08:41; Admin Dose 600 MG; Start 08/07/16 at 09:00 Simethicone (Mylicon) 80 mg Q6H PRN GTB DISTENSION/GAS/BLOATING; Start at 17:30 Tamsulosin HCl (Flomax) 0.4 mg QHS PO Last administered on 08/07/16 20:37; Admin Dose 0.4 MG; Start 08/06/16 at 21:00 Ondansetron HCl (Zofran Inj) 4 mg Q6H PRN IV NAUSEA AND/OR VOMITING Last administered on 08/08/16 08:03; Admin Dose 4 MG; Start 08/06/16 at 17:30 Acetaminophen (Tylenol Tab) 650 mg Q6H PRN PO PAIN LEVEL 1-3 OR FEVER; Start at 17:30 Acetaminophen (Tylenol Supp) 650 mg Q6H PRN [place] PAIN LEVEL 1-3 OR FEVER; Start 08/06/16 at 17:30 Acetaminophen/ Hydrocodone Bitart ([place] (5/325)) 1 tab Q6H PRN PO MODERATE PAIN LEVEL 4-6; Start 08/06/16 at 17:30 Acetaminophen/ Hydrocodone Bitart ([place] (5/325)) 2 tab Q6H PRN PO SEVERE PAIN LEVEL 7-10; Start 08/06/16 at 17:30 Morphine Sulfate (morphine) 2 mg Q4H PRN IV SEVERE PAIN LEVEL 7-10 Last administered on 08/08/16 12:19; Admin Dose 2 MG; Start 08/06/16 at 17:30 Docusate Sodium (Colace) 100 mg Q12H PRN PO CONSTIPATION; Start 08/06/16 at 17: 30 Magnesium Hydroxide (Milk Of Mag) 30 ml DAILY PRN PO CONSTIPATION; Start at 17:30 Bisacodyl (Dulcolax Supp) 10 mg DAILY PRN [place] CONSTIPATION; Start 08/06/16 at 17 :30 Heparin Sodium (Porcine) (Heparin (5000 Units/0.5 ml)) 5,000 unit Q12 SC Last administered on 08/08/16 08:43; Admin Dose 5,000 UNIT; Start 08/06/16 at 21:00 Diagnostic Test (Pha) (Accucheck) 1 ea 02 XX Last administered on 08/08/16 02: 18; Admin Dose 1 EA; Start 08/07/16 at 02:00 Hydralazine HCl (Apresoline) 10 mg Q6H PRN IV SBP>170 Last administered on 08/08 05:04; Admin Dose 10 MG; Start 08/06/16 at 17:30 Miscellaneous Information 1 ea NOTE XX ; Start 08/06/16 at 17:30 Glucose (Glutose) 15 gm Q15M PRN PO DECREASED GLUCOSE; Start 08/06/16 at 17:30 Glucose (Glutose) 22.5 gm Q15M PRN PO DECREASED GLUCOSE; Start 08/06/16 at 17: 30 Dextrose (D50w Syringe) 25 ml Q15M PRN IV DECREASED GLUCOSE; Start 08/06/16 at 17:30 Dextrose (D50w Syringe) 50 ml Q15M PRN IV DECREASED GLUCOSE; Start 08/06/16 at 17:30 Glucagon (Glucagen) 1 mg Q15M PRN IM DECREASED GLUCOSE; Start 08/06/16 at 17:30 Glucose (Glutose) 15 gm Q15M PRN BUCCAL DECREASED GLUCOSE; Start 08/06/16 at 17 :30 Vancomycin HCl PER PHARMACY DOSING NOTE XX ; Start 08/06/16 at 22:00 Vancomycin HCl (Vancocin) 100 ml @ 100 mls/hr Q48H IVPB ; Start 08/08/16 at 22: 00 Levothyroxine Sodium 50 mcg 50 mcg DAILY@06 PO Last administered on 08/08/16 05:04; Admin Dose 50 MCG; Start 08/08/16 at 06:00 Piperacillin Sod/ Tazobactam Sod (Zosyn 2.25gm/ 50ml (Pmx)) 50 ml @ 100 mls/hr Q8 IVPB Last administered on 08/08/16 13:58; Admin Dose 100 MLS/HR; Start at 16:30 Hydralazine HCl (Apresoline) 100 mg TID PO Last administered on 08/08/16 12:10 ; Admin Dose 100 MG; Start 08/07/16 at 21:00 Isosorbide Dinitrate (Isordil) 20 mg TID PO Last administered on 08/08/16 12: 10; Admin Dose 20 MG; Start 08/07/16 at 21:00 Neomycin/ Polymyxin/ Hydrocortisone (Cortisporin Otic Susp) 4 drop TID BOTH EARS Last administered on 08/08/16t 12:10; Admin Dose 4 DROP; Start 08/07/16 at 23:30; Stop 08/14/16 at 23:29 TRIP DE LEON Aug 08, 2016 14:25
--- NOTE | 2016-08-08 15:44 | PN ---
Date/Time of Note Date/Time of Note LATE ENTRY DATE: 08/07/16 Assessment/Plan VTE Prophylaxis VTE Prophylaxis Intervention: heparin Lines/Catheters [facility] Urinary Cath still in place: Yes Assessment/Plan Chief Complaint/Hosp Course 1. Uncontrolled blood pressure. Discussed with multidisciplinary team. High blood pressure noted to be positional. Continue with antihypertensives. Monitor for response 2. Elevated troponin, in the setting of chronic kidney disease. Electrical Maintenance Technician following. Of note, recent echocardiogram did show patient to have ejection fraction of 55% with stage I diastolic dysfunction. Continue with cardiology recommendations. Tentative plan for stress test 3. Acute kidney injury on likely chronic kidney disease. Bus Operator did follow. Renal function likely at baseline. Will monitor 4. Recent spinal abscess with methicillin-resistant Staphylococcus aureus. Continue antibiotics per ID 5. Urinary tract infection. Preliminary culture showing gram-negative rods. Follow-up with final culture and adjust antibiotics as needed 6. History of iron deficiency anemia. We will continue the patient on his iron supplement. 7. Benign prostatic hypertrophy. Continue on finasteride. 8. History of diabetes. Continue on insulin regimen. 9. . Left partial middle ear and extensive mastoid opacification with associated effusions compatible with ostOmastoiditis. ENT physician for follow- up 10. Deep venous thrombosis prophylaxis: Heparin. 11. Gastroesophageal reflux disease prophylaxis: Proton pump inhibitor. Disposition and plan: ENT physician to follow. cont with abx Discussed plan of care with Dr. Gilbert Problems: Subjective 24 Hr Interval Summary Free Text/Dictation comfortable at present. no s/s of distress Exam/Review of Systems Vital Signs Vitals Vital Signs Date Time Temp Pulse Resp B/P Pulse Ox O2 Delivery O2 Flow Rate FiO2 08/08/16 12:20 64 08/08/16 12:02 97.7 18 164/88 94 08/07/16 08:15 Nasal Cannula Intake and Output 08/07/16 08/07/16 08/08/16 15:00 23:00 07:00 Intake Total 1050 ml Output Total 550 ml Balance 500 ml Exam General: No apparent distress noted at this time Eyes: Pupils equal and reactive to light Neck: Supple nontender, no JVD Cardiac: S1-S2 auscultated regular rate Pulmonary: No wheezing rhonchi GI: Soft nontender nondistended Extremities: Edema noted bilateral lower extremities +1 Skin: [place] on back from surgical site clean dry and intact Neurologic: MELISSA 3 Results Result Diagram: 08/08/16 0630 08/08/16 0630 Results 24 hrs Laboratory Tests Test 08/07/16 17:35 08/08/16 01:48 08/08/16 06:30 08/08/16 07:51 Bedside Glucose 169 208 171 Anion Gap 13 Basophils # 0.0 Basophils % 0.7 Blood Urea Nitrogen 48 H Calcium Level 7.1 L Carbon Dioxide Level 27 Chloride Level 103 Creatinine 2.27 H Eosinophils # 0.2 Eosinophils % 8.5 H Glucose Level 162 Hematocrit 34.4 L Hemoglobin 11.1 L Lymphocytes # 0.8 Lymphocytes % 29.0 Mean Corpuscular Hemoglobin 30.6 Mean Corpuscular Hemoglobin Concent 32.3 Mean Corpuscular Volume 94.8 Mean Platelet Volume 10.6 H Monocytes # 0.2 L Monocytes % 8.5 Neutrophils # 1.5 L Neutrophils % 52.9 Nucleated Red Blood Cells # 0.0 Nucleated Red Blood Cells % 0.0 Parathyroid Hormone (Intact) Platelet Count 143 # Potassium Level 4.9 Red Blood Count 3.63 L Red Cell Distribution Width 19.3 H Sodium Level 138 White Blood Count 2.8 #L Test 08/08/16 11:39 Bedside Glucose 143 Medications Medications Current Medications Bumetanide (Bumex) 1 mg DAILY PO Last administered on 08/08/16 08:41; Admin Dose 1 MG; Start 08/07/16 at 09:00 Carvedilol (Coreg) 6.25 mg BID PO Last administered on 08/08/16 08:42; Admin Dose 6.25 MG; Start 08/06/16 at 21:00 Ferrous Sulfate (Ferrous Sulfate (Ec)) 325 mg BID PO Last administered on 20:37; Admin Dose 325 MG; Start 08/06/16 at 21:00 Finasteride (Proscar) 5 mg DAILY PO Last administered on 08/08/16 08:42; Admin Dose 5 MG; Start 08/07/16 at 09:00 Lactobacillus Acidoph/Bulgaricus (Floranex) 1 tab TID PO Last administered on 20:36; Admin Dose 1 TAB; Start 08/06/16 at 21:00 Pantoprazole (Protonix Tab) 40 mg DAILY PO Last administered on 08/08/16 08:41 ; Admin Dose 40 MG; Start 08/07/16 at 09:00 Rifampin (Rifampin) 600 mg DAILY PO Last administered on 08/07/16 08:41; Admin Dose 600 MG; Start 08/07/16 at 09:00 Simethicone (Mylicon) 80 mg Q6H PRN GTB DISTENSION/GAS/BLOATING; Start at 17:30 Tamsulosin HCl (Flomax) 0.4 mg QHS PO Last administered on 08/07/16 20:37; Admin Dose 0.4 MG; Start 08/06/16 at 21:00 Ondansetron HCl (Zofran Inj) 4 mg Q6H PRN IV NAUSEA AND/OR VOMITING Last administered on 08/08/16 08:03; Admin Dose 4 MG; Start 08/06/16 at 17:30 Acetaminophen (Tylenol Tab) 650 mg Q6H PRN PO PAIN LEVEL 1-3 OR FEVER; Start at 17:30 Acetaminophen (Tylenol Supp) 650 mg Q6H PRN [place] PAIN LEVEL 1-3 OR FEVER; Start 08/06/16 at 17:30 Acetaminophen/ Hydrocodone Bitart ([place] (5/325)) 1 tab Q6H PRN PO MODERATE PAIN LEVEL 4-6; Start 08/06/16 at 17:30 Acetaminophen/ Hydrocodone Bitart ([place] (5/325)) 2 tab Q6H PRN PO SEVERE PAIN LEVEL 7-10; Start 08/06/16 at 17:30 Morphine Sulfate (morphine) 2 mg Q4H PRN IV SEVERE PAIN LEVEL 7-10 Last administered on 08/08/16 12:19; Admin Dose 2 MG; Start 08/06/16 at 17:30 Docusate Sodium (Colace) 100 mg Q12H PRN PO CONSTIPATION; Start 08/06/16 at 17: 30 Magnesium Hydroxide (Milk Of Mag) 30 ml DAILY PRN PO CONSTIPATION; Start at 17:30 Bisacodyl (Dulcolax Supp) 10 mg DAILY PRN [place] CONSTIPATION; Start 08/06/16 at 17 :30 Heparin Sodium (Porcine) (Heparin (5000 Units/0.5 ml)) 5,000 unit Q12 SC Last administered on 08/08/16 08:43; Admin Dose 5,000 UNIT; Start 08/06/16 at 21:00 Diagnostic Test (Pha) (Accucheck) 1 ea 02 XX Last administered on 08/08/16 02: 18; Admin Dose 1 EA; Start 08/07/16 at 02:00 Hydralazine HCl (Apresoline) 10 mg Q6H PRN IV SBP>170 Last administered on 08/08 05:04; Admin Dose 10 MG; Start 08/06/16 at 17:30 Miscellaneous Information 1 ea NOTE XX ; Start 08/06/16 at 17:30 Glucose (Glutose) 15 gm Q15M PRN PO DECREASED GLUCOSE; Start 08/06/16 at 17:30 Glucose (Glutose) 22.5 gm Q15M PRN PO DECREASED GLUCOSE; Start 08/06/16 at 17: 30 Dextrose (D50w Syringe) 25 ml Q15M PRN IV DECREASED GLUCOSE; Start 08/06/16 at 17:30 Dextrose (D50w Syringe) 50 ml Q15M PRN IV DECREASED GLUCOSE; Start 08/06/16 at 17:30 Glucagon (Glucagen) 1 mg Q15M PRN IM DECREASED GLUCOSE; Start 08/06/16 at 17:30 Glucose (Glutose) 15 gm Q15M PRN BUCCAL DECREASED GLUCOSE; Start 08/06/16 at 17 :30 Vancomycin HCl PER PHARMACY DOSING NOTE XX ; Start 08/06/16 at 22:00 Vancomycin HCl (Vancocin) 100 ml @ 100 mls/hr Q48H IVPB ; Start 08/08/16 at 22: 00 Levothyroxine Sodium 50 mcg 50 mcg DAILY@06 PO Last administered on 08/08/16 05:04; Admin Dose 50 MCG; Start 08/08/16 at 06:00 Piperacillin Sod/ Tazobactam Sod (Zosyn 2.25gm/ 50ml (Pmx)) 50 ml @ 100 mls/hr Q8 IVPB Last administered on 08/08/16 13:58; Admin Dose 100 MLS/HR; Start at 16:30 Hydralazine HCl (Apresoline) 100 mg TID PO Last administered on 08/08/16 12:10 ; Admin Dose 100 MG; Start 08/07/16 at 21:00 Isosorbide Dinitrate (Isordil) 20 mg TID PO Last administered on 08/08/16 12: 10; Admin Dose 20 MG; Start 08/07/16 at 21:00 Neomycin/ Polymyxin/ Hydrocortisone (Cortisporin Otic Susp) 4 drop TID BOTH EARS Last administered on 08/08/16 12:10; Admin Dose 4 DROP; Start 08/07/16 at 23:30; Stop 08/14/16 at 23:29 Nifedipine (Procardia Xl) 30 mg DAILY PO ; Start 08/08/16 at 14:30 RANDY SCHNEIDER Aug 08, 2016 15:43
--- NOTE | 2016-08-08 15:48 | PN ---
Date/Time of Note Date/Time of Note DATE: 08/08/16 TIME: 15:44 Assessment/Plan VTE Prophylaxis VTE Prophylaxis Intervention: heparin Lines/Catheters IV [facility] Type (from [facility] PICC Line Urinary Cath still in place: Yes Assessment/Plan Chief Complaint/Hosp Course 1. Uncontrolled blood pressure. Discussed with multidisciplinary team. High blood pressure noted to be positional. Continue with antihypertensives. 2. Elevated troponin, in the setting of chronic kidney disease. Nick Setter following. Of note, recent echocardiogram did show patient to have ejection fraction of 55% with stage I diastolic dysfunction. Continue with cardiology recommendations. Tentative plan for stress test 3. Acute kidney injury on likely chronic kidney disease. Batch Plant Operator did follow. Renal function likely at baseline. Will monitor 4. Recent spinal abscess with methicillin-resistant Staphylococcus aureus. Continue antibiotic per ID 5. Urinary tract infection. Preliminary culture showing gram-negative rods. Follow-up with final culture and adjust antibiotics as needed 6. History of iron deficiency anemia. We will continue the patient on his iron supplement. 7. Benign prostatic hypertrophy. Continue on finasteride. 8. History of diabetes. Continue on insulin regimen. 9. . Left partial middle ear and extensive mastoid opacification with associated effusions compatible with ostomastoiditis. ENT physician for follow- up 10. Deep venous thrombosis prophylaxis: Heparin. 11. Gastroesophageal reflux disease prophylaxis: Proton pump inhibitor. Disposition and plan: cont abx for ears. follow up urine culture. possible stress test per cardiology. d/c when cleared by consultants and medically stable Discussed plan of care with Dr. Gilbert Problems: Subjective 24 Hr Interval Summary Free Text/Dictation no s/s of distress Exam/Review of Systems Vital Signs Vitals Vital Signs Date Time Temp Pulse Resp B/P Pulse Ox O2 Delivery O2 Flow Rate FiO2 08/08/16 12:20 64 08/08/16 12:02 97.7 18 164/88 94 08/07/16 08:15 Nasal Cannula Intake and Output 08/07/16 08/07/16 08/08/16 15:00 23:00 07:00 Intake Total 1050 ml Output Total 550 ml Balance 500 ml Exam General: no s/s of distress. comfortable at present Eyes: Pupils equal and reactive to light. anicteric sclerae Neck: Supple nontender, no JVD Cardiac: S1-S2 auscultated regular rate Pulmonary: No adventitious lung sounds GI: Soft nontender nondistended Extremities: Edema noted bilateral lower extremities +1 still Skin: [place] on back from surgical site clean dry and intact Neurologic: MELISSA 3 Results Result Diagram: 08/08/16 0630 08/08/16 0630 Results 24 hrs Laboratory Tests Test 08/07/16 17:35 08/08/16 01:48 08/08/16 06:30 08/08/16 07:51 Bedside Glucose 169 208 171 Anion Gap 13 Basophils # 0.0 Basophils % 0.7 Blood Urea Nitrogen 48 H Calcium Level 7.1 L Carbon Dioxide Level 27 Chloride Level 103 Creatinine 2.27 H Eosinophils # 0.2 Eosinophils % 8.5 H Glucose Level 162 Hematocrit 34.4 L Hemoglobin 11.1 L Lymphocytes # 0.8 Lymphocytes % 29.0 Mean Corpuscular Hemoglobin 30.6 Mean Corpuscular Hemoglobin Concent 32.3 Mean Corpuscular Volume 94.8 Mean Platelet Volume 10.6 H Monocytes # 0.2 L Monocytes % 8.5 Neutrophils # 1.5 L Neutrophils % 52.9 Nucleated Red Blood Cells # 0.0 Nucleated Red Blood Cells % 0.0 Parathyroid Hormone (Intact) Platelet Count 143 # Potassium Level 4.9 Red Blood Count 3.63 L Red Cell Distribution Width 19.3 H Sodium Level 138 White Blood Count 2.8 #L Test 08/08/16 11:39 Bedside Glucose 143 Medications Medications Current Medications Bumetanide (Bumex) 1 mg DAILY PO Last administered on 08/08/16 08:41; Admin Dose 1 MG; Start 08/07/16 at 09:00 Carvedilol (Coreg) 6.25 mg BID PO Last administered on 08/08/16 08:42; Admin Dose 6.25 MG; Start 08/06/16 at 21:00 Ferrous Sulfate (Ferrous Sulfate (Ec)) 325 mg BID PO Last administered on 20:37; Admin Dose 325 MG; Start 08/06/16 at 21:00 Finasteride (Proscar) 5 mg DAILY PO Last administered on 08/08/16 08:42; Admin Dose 5 MG; Start 08/07/16 at 09:00 Lactobacillus Acidoph/Bulgaricus (Floranex) 1 tab TID PO Last administered on 20:36; Admin Dose 1 TAB; Start 08/06/16 at 21:00 Pantoprazole (Protonix Tab) 40 mg DAILY PO Last administered on 08/08/16 08:41 ; Admin Dose 40 MG; Start 08/07/16 at 09:00 Rifampin (Rifampin) 600 mg DAILY PO Last administered on 08/07/16 08:41; Admin Dose 600 MG; Start 08/07/16 at 09:00 Simethicone (Mylicon) 80 mg Q6H PRN GTB DISTENSION/GAS/BLOATING; Start at 17:30 Tamsulosin HCl (Flomax) 0.4 mg QHS PO Last administered on 08/07/16 20:37; Admin Dose 0.4 MG; Start 08/06/16 at 21:00 Ondansetron HCl (Zofran Inj) 4 mg Q6H PRN IV NAUSEA AND/OR VOMITING Last administered on 08/08/16 08:03; Admin Dose 4 MG; Start 08/06/16 at 17:30 Acetaminophen (Tylenol Tab) 650 mg Q6H PRN PO PAIN LEVEL 1-3 OR FEVER; Start at 17:30 Acetaminophen (Tylenol Supp) 650 mg Q6H PRN [place] PAIN LEVEL 1-3 OR FEVER; Start 08/06/16 at 17:30 Acetaminophen/ Hydrocodone Bitart ([place] (5/325)) 1 tab Q6H PRN PO MODERATE PAIN LEVEL 4-6; Start 08/06/16 at 17:30 Acetaminophen/ Hydrocodone Bitart ([place] (5/325)) 2 tab Q6H PRN PO SEVERE PAIN LEVEL 7-10; Start 08/06/16 at 17:30 Morphine Sulfate (morphine) 2 mg Q4H PRN IV SEVERE PAIN LEVEL 7-10 Last administered on 08/08/16 12:19; Admin Dose 2 MG; Start 08/06/16 at 17:30 Docusate Sodium (Colace) 100 mg Q12H PRN PO CONSTIPATION; Start 08/06/16 at 17: 30 Magnesium Hydroxide (Milk Of Mag) 30 ml DAILY PRN PO CONSTIPATION; Start at 17:30 Bisacodyl (Dulcolax Supp) 10 mg DAILY PRN [place] CONSTIPATION; Start 08/06/16 at 17 :30 Heparin Sodium (Porcine) (Heparin (5000 Units/0.5 ml)) 5,000 unit Q12 SC Last administered on 08/08/16 08:43; Admin Dose 5,000 UNIT; Start 08/06/16 at 21:00 Diagnostic Test (Pha) (Accucheck) 1 ea 02 XX Last administered on 08/08/16 02: 18; Admin Dose 1 EA; Start 08/07/16 at 02:00 Hydralazine HCl (Apresoline) 10 mg Q6H PRN IV SBP>170 Last administered on 08/08 05:04; Admin Dose 10 MG; Start 08/06/16 at 17:30 Miscellaneous Information 1 ea NOTE XX ; Start 08/06/16 at 17:30 Glucose (Glutose) 15 gm Q15M PRN PO DECREASED GLUCOSE; Start 08/06/16 at 17:30 Glucose (Glutose) 22.5 gm Q15M PRN PO DECREASED GLUCOSE; Start 08/06/16 at 17: 30 Dextrose (D50w Syringe) 25 ml Q15M PRN IV DECREASED GLUCOSE; Start 08/06/16 at 17:30 Dextrose (D50w Syringe) 50 ml Q15M PRN IV DECREASED GLUCOSE; Start 08/06/16 at 17:30 Glucagon (Glucagen) 1 mg Q15M PRN IM DECREASED GLUCOSE; Start 08/06/16 at 17:30 Glucose (Glutose) 15 gm Q15M PRN BUCCAL DECREASED GLUCOSE; Start 08/06/16 at 17 :30 Vancomycin HCl PER PHARMACY DOSING NOTE XX ; Start 08/06/16 at 22:00 Vancomycin HCl (Vancocin) 100 ml @ 100 mls/hr Q48H IVPB ; Start 08/08/16 at 22: 00 Levothyroxine Sodium 50 mcg 50 mcg DAILY@06 PO Last administered on 08/08/16 05:04; Admin Dose 50 MCG; Start 08/08/16 at 06:00 Piperacillin Sod/ Tazobactam Sod (Zosyn 2.25gm/ 50ml (Pmx)) 50 ml @ 100 mls/hr Q8 IVPB Last administered on 08/08/16 13:58; Admin Dose 100 MLS/HR; Start at 16:30 Hydralazine HCl (Apresoline) 100 mg TID PO Last administered on 08/08/16 12:10 ; Admin Dose 100 MG; Start 08/07/16 at 21:00 Isosorbide Dinitrate (Isordil) 20 mg TID PO Last administered on 08/08/16 12: 10; Admin Dose 20 MG; Start 08/07/16 at 21:00 Neomycin/ Polymyxin/ Hydrocortisone (Cortisporin Otic Susp) 4 drop TID BOTH EARS Last administered on 08/08/16 12:10; Admin Dose 4 DROP; Start 08/07/16 at 23:30; Stop 08/14/16 at 23:29 Nifedipine (Procardia Xl) 30 mg DAILY PO ; Start 08/08/16 at 14:30 RANDY SCHNEIDER Aug 08, 2016 15:48
--- NOTE | 2016-08-08 15:52 | CONS ---
Date/Time of Note Date/Time of Note DATE: 08/08/16 TIME: 15:50 Assessment/Plan Assessment/Plan Chief Complaint/Hosp Course SUBJECTIVE: No events lying comfortably in bed. No fevers. ANTIMICROBIALS: Vancomycin. Zosyn DIAGNOSTICS: Facial CT on admission revealed left partial middle ear and extensive mastoid opacification with associated effusions compatible with otomastoiditis. Bilateral maxillary sinus mucosal thickening and mild bilateral anterior ethmoid air cell mucosal thickening are also seen. INDWELLINGS: The patient has PICC line. PHYSICAL EXAMINATION: GENERAL: This is a well-developed middle-aged man who is awake, in no distress. HEENT: Head atraumatic, normocephalic. Sclerae anicteric. Buccal mucosa pink. NECK: Supple. CHEST: Rise symmetrical. Breath sounds clear. HEART: S1, S2. ABDOMEN: Soft. Bowel tones present. EXTREMITIES: No cyanosis. ASSESSMENT: 1. Left otomastoiditis with sinusitis. 2. Methicillin-resistant Staphylococcus aureus spinal abscess, status post decompressive laminectomy with evacuation of abscess done on 07/12/2016. 3. Chronic kidney disease with urinary retention. 4. Diabetes. 5. Hypertension. PLAN: The patient is stable. Continue IV vancomycin until 09/07. Continue Zosyn and otic gtts per ENT. Follow recommendations of consultants. DW staff Problems: Consultation Date/Type/Reason Admit Date/Time Aug 06, 2016 at 15:13 Initial Consult Date Type of Consultation: ID Referring Provider: JUDSON TREVINO Exam/Review of Systems Vital Signs Vitals Vital Signs Date Time Temp Pulse Resp B/P Pulse Ox O2 Delivery O2 Flow Rate FiO2 08/08/16 12:20 64 08/08/16 12:02 97.7 18 164/88 94 08/07/16 08:15 Nasal Cannula Intake and Output 08/07/16 08/07/16 08/08/16 15:00 23:00 07:00 Intake Total 1050 ml Output Total 550 ml Balance 500 ml Results Result Diagram: 08/08/16 0630 08/08/16 0630 Results 24 hrs Laboratory Tests Test 08/07/16 17:35 08/08/16 01:48 08/08/16 06:30 08/08/16 07:51 Bedside Glucose 169 208 171 Anion Gap 13 Basophils # 0.0 Basophils % 0.7 Blood Urea Nitrogen 48 H Calcium Level 7.1 L Carbon Dioxide Level 27 Chloride Level 103 Creatinine 2.27 H Eosinophils # 0.2 Eosinophils % 8.5 H Glucose Level 162 Hematocrit 34.4 L Hemoglobin 11.1 L Lymphocytes # 0.8 Lymphocytes % 29.0 Mean Corpuscular Hemoglobin 30.6 Mean Corpuscular Hemoglobin Concent 32.3 Mean Corpuscular Volume 94.8 Mean Platelet Volume 10.6 H Monocytes # 0.2 L Monocytes % 8.5 Neutrophils # 1.5 L Neutrophils % 52.9 Nucleated Red Blood Cells # 0.0 Nucleated Red Blood Cells % 0.0 Parathyroid Hormone (Intact) Platelet Count 143 # Potassium Level 4.9 Red Blood Count 3.63 L Red Cell Distribution Width 19.3 H Sodium Level 138 White Blood Count 2.8 #L Test 08/08/16 11:39 Bedside Glucose 143 Medications Medications Current Medications Bumetanide (Bumex) 1 mg DAILY PO Last administered on 08/08/16 08:41; Admin Dose 1 MG; Start 08/07/16 at 09:00 Carvedilol (Coreg) 6.25 mg BID PO Last administered on 08/08/16 08:42; Admin Dose 6.25 MG; Start 08/06/16 at 21:00 Ferrous Sulfate (Ferrous Sulfate (Ec)) 325 mg BID PO Last administered on 20:37; Admin Dose 325 MG; Start 08/06/16 at 21:00 Finasteride (Proscar) 5 mg DAILY PO Last administered on 08/08/16 08:42; Admin Dose 5 MG; Start 08/07/16 at 09:00 Lactobacillus Acidoph/Bulgaricus (Floranex) 1 tab TID PO Last administered on 20:36; Admin Dose 1 TAB; Start 08/06/16 at 21:00 Pantoprazole (Protonix Tab) 40 mg DAILY PO Last administered on 08/08/16 08:41 ; Admin Dose 40 MG; Start 08/07/16 at 09:00 Rifampin (Rifampin) 600 mg DAILY PO Last administered on 08/07/16 08:41; Admin Dose 600 MG; Start 08/07/16 at 09:00 Simethicone (Mylicon) 80 mg Q6H PRN GTB DISTENSION/GAS/BLOATING; Start at 17:30 Tamsulosin HCl (Flomax) 0.4 mg QHS PO Last administered on 08/07/16 20:37; Admin Dose 0.4 MG; Start 08/06/16 at 21:00 Ondansetron HCl (Zofran Inj) 4 mg Q6H PRN IV NAUSEA AND/OR VOMITING Last administered on 08/08/16 08:03; Admin Dose 4 MG; Start 08/06/16 at 17:30 Acetaminophen (Tylenol Tab) 650 mg Q6H PRN PO PAIN LEVEL 1-3 OR FEVER; Start at 17:30 Acetaminophen (Tylenol Supp) 650 mg Q6H PRN [place] PAIN LEVEL 1-3 OR FEVER; Start 08/06/16 at 17:30 Acetaminophen/ Hydrocodone Bitart ([place] (5/325)) 1 tab Q6H PRN PO MODERATE PAIN LEVEL 4-6; Start 08/06/16 at 17:30 Acetaminophen/ Hydrocodone Bitart ([place] (5/325)) 2 tab Q6H PRN PO SEVERE PAIN LEVEL 7-10; Start 08/06/16 at 17:30 Morphine Sulfate (morphine) 2 mg Q4H PRN IV SEVERE PAIN LEVEL 7-10 Last administered on 08/08/16 12:19; Admin Dose 2 MG; Start 08/06/16 at 17:30 Docusate Sodium (Colace) 100 mg Q12H PRN PO CONSTIPATION; Start 08/06/16 at 17: 30 Magnesium Hydroxide (Milk Of Mag) 30 ml DAILY PRN PO CONSTIPATION; Start at 17:30 Bisacodyl (Dulcolax Supp) 10 mg DAILY PRN [place] CONSTIPATION; Start 08/06/16 at 17 :30 Heparin Sodium (Porcine) (Heparin (5000 Units/0.5 ml)) 5,000 unit Q12 SC Last administered on 08/08/16 08:43; Admin Dose 5,000 UNIT; Start 08/06/16 at 21:00 Diagnostic Test (Pha) (Accucheck) 1 ea 02 XX Last administered on 08/08/16 02: 18; Admin Dose 1 EA; Start 08/07/16 at 02:00 Hydralazine HCl (Apresoline) 10 mg Q6H PRN IV SBP>170 Last administered on 08/08 05:04; Admin Dose 10 MG; Start 08/06/16 at 17:30 Miscellaneous Information 1 ea NOTE XX ; Start 08/06/16 at 17:30 Glucose (Glutose) 15 gm Q15M PRN PO DECREASED GLUCOSE; Start 08/06/16 at 17:30 Glucose (Glutose) 22.5 gm Q15M PRN PO DECREASED GLUCOSE; Start 08/06/16 at 17: 30 Dextrose (D50w Syringe) 25 ml Q15M PRN IV DECREASED GLUCOSE; Start 08/06/16 at 17:30 Dextrose (D50w Syringe) 50 ml Q15M PRN IV DECREASED GLUCOSE; Start 08/06/16 at 17:30 Glucagon (Glucagen) 1 mg Q15M PRN IM DECREASED GLUCOSE; Start 08/06/16 at 17:30 Glucose (Glutose) 15 gm Q15M PRN BUCCAL DECREASED GLUCOSE; Start 08/06/16 at 17 :30 Vancomycin HCl PER PHARMACY DOSING NOTE XX ; Start 08/06/16 at 22:00 Vancomycin HCl (Vancocin) 100 ml @ 100 mls/hr Q48H IVPB ; Start 08/08/16 at 22: 00 Levothyroxine Sodium 50 mcg 50 mcg DAILY@06 PO Last administered on 08/08/16 05:04; Admin Dose 50 MCG; Start 08/08/16 at 06:00 Piperacillin Sod/ Tazobactam Sod (Zosyn 2.25gm/ 50ml (Pmx)) 50 ml @ 100 mls/hr Q8 IVPB Last administered on 08/08/16 13:58; Admin Dose 100 MLS/HR; Start at 16:30 Hydralazine HCl (Apresoline) 100 mg TID PO Last administered on 08/08/16 12:10 ; Admin Dose 100 MG; Start 08/07/16 at 21:00 Isosorbide Dinitrate (Isordil) 20 mg TID PO Last administered on 08/08/16 12: 10; Admin Dose 20 MG; Start 08/07/16 at 21:00 Neomycin/ Polymyxin/ Hydrocortisone (Cortisporin Otic Susp) 4 drop TID BOTH EARS Last administered on 08/08/16 12:10; Admin Dose 4 DROP; Start 08/07/16 at 23:30; Stop 08/14/16 at 23:29 Nifedipine (Procardia Xl) 30 mg DAILY PO ; Start 08/08/16 at 14:30 DORENE GARCIA NP Aug 08, 2016 15:52
[2016-08-08] MEDS: NIFEdipine (XL) 30 MG TAB PO SCH (16:43)
[2016-08-08] MEDS: TAMSULOSIN (SR) 0.4 MG CAP PO SCH (20:35)
[2016-08-08] MEDS: VANCOMYCIN 500MG/NS (PMX) 100 ML IVPB SCH (20:39)
[2016-08-09] VITALS (12 sets, daily range): BP systolic 129–159; BP diastolic 74–88; PULSE 59–69; RESP 17–18
[2016-08-09] MEDS: ACCU-CHEK XX SCH (02:24)
[2016-08-09] MEDS: PIPER-TAZO 2.25 GM (PMX) 50 ML IVPB SCH ×3 (05:47→14:54)
[2016-08-09] MEDS: ONDANSETRON 4 MG INJ IV PRN ×3 (05:57→21:15)
[2016-08-09] MEDS: morphine 2 MG INJ IV PRN ×3 (05:57→14:40)
[2016-08-09] MEDS: LEVOTHYROXINE 50 MCG TAB PO SCH (05:58)
[2016-08-09] MEDS: INSULIN ASPART [NOVOLOG] 3 ML PEN SC SCH ×4 (07:47→21:00)
[2016-08-09 08:06] LABS: ADD SCAN DIFF NO; BASOPHILS % 1.4 % (0.0-2.0); EOSINOPHILS # 0.2 10^3/ul (0.0-0.5); EOSINOPHILS % 6.4 % (0.0-7.0); HEMATOCRIT 33.6 % (42.0-52.0); HEMOGLOBIN 10.8 g/dl (14.0-18.0); LYMPHOCYTES % 32.1 % (15.0-51.0); MEAN CORPUSCULAR HEMOGLOBIN 30.4 pg (29.0-33.0); MEAN CORPUSCULAR HGB CONC 32.1 g/dl (32.0-37.0); MEAN CORPUSCULAR VOLUME 94.6 fl (82.0-101.0); MONOCYTE # 0.3 10^3/ul (0.3-0.9); MONOCYTES % 10.8 % (0.0-11.0); NEUTROPHIL # 1.5 10^3/ul (1.6-7.5); PLATELET COUNT 138 10^3/UL (140-415); RED BLOOD COUNT 3.55 10^6/ul (4.70-6.10); RED CELL DISTRIBUTION WIDTH 19.3 % (11.5-14.5)
[2016-08-09 08:21] LABS: POTASSIUM 4.6 mmol/L (3.5-5.1)
[2016-08-09 08:24] LABS: CREATININE 2.39 mg/dl (0.61-1.24)
[2016-08-09] MEDS: HEPARIN 5,000 UNIT/0.5 ML SYG SC SCH ×2 (08:36→21:09)
[2016-08-09] MEDS: NEOMYC/POLYMYX/HC 10 ML OTIC SUSP BOTH EARS SCH ×3 (08:39→21:09)
[2016-08-09] MEDS: ISOSORBIDE DINITRATE 20 MG TAB PO SCH ×4 (09:00→21:11)
[2016-08-09] MEDS: FINASTERIDE 5 MG TAB PO SCH ×2 (09:00→14:45)
[2016-08-09] MEDS: FERROUS SULFATE (EC) 325 MG TAB PO SCH ×3 (09:00→21:09)
[2016-08-09] MEDS: BUMETANIDE 1 MG TAB PO SCH ×2 (09:00→10:02)
[2016-08-09] MEDS: PANTOPRAZOLE (EC) 40 MG TAB PO SCH ×2 (09:00→14:46)
[2016-08-09] MEDS: RIFAMPIN 300 MG CAP PO SCH ×2 (09:00→14:46)
[2016-08-09] MEDS: LACTOBACILLUS CHEW TAB PO SCH ×4 (09:00→21:09)
[2016-08-09] MEDS: NIFEdipine (XL) 30 MG TAB PO SCH ×2 (09:00→14:47)
--- NOTE | 2016-08-09 13:16 | PN ---
Date/Time of Note Date/Time of Note DATE: 08/09/16 TIME: 12:59 Assessment/Plan VTE Prophylaxis VTE Prophylaxis Intervention: SCD's Lines/Catheters IV [facility]ter Type (from [facility] PICC Line Urinary Cath still in place: Yes Assessment/Plan Chief Complaint/Hosp Course DISPO/PLAN: 1. Uncontrolled blood pressure. Discussed with multidisciplinary team. High blood pressure noted to be positional. Continue with antihypertensives and adjust as needed 2. Elevated troponin, in the setting of chronic kidney disease. Sales Correspondence Clerk following. Of note, recent echocardiogram did show patient to have ejection fraction of 55% with stage I diastolic dysfunction. Continue with cardiology recommendations. Patient for stress test 08/09/16 3. Acute kidney injury on likely chronic kidney disease. Kiln Placer did follow. Renal function likely at baseline. Will monitor 4. Recent spinal abscess with methicillin-resistant Staphylococcus aureus. Continue antibiotics per ID. Stable at present 5. Urinary tract infection. culture did show: ENTERO[employer]. abx per ID 6. History of iron deficiency anemia. We will continue the patient on his iron supplement. 7. Benign prostatic hypertrophy. Continue on finasteride. 8. History of diabetes. Continue on insulin regimen. 9. . Left partial middle ear and extensive mastoid opacification with associated effusions compatible with ostomastoiditis. ENT physician for follow- up 10. Deep venous thrombosis prophylaxis: Heparin. 11. Gastroesophageal reflux disease prophylaxis: Proton pump inhibitor. Disposition and plan: patient for stress test. follow up with results. d/c when medically stable and cleared by consultants. Discussed plan of care with Dr. Gilbert Problems: Subjective 24 Hr Interval Summary Free Text/Dictation patient for stress test Exam/Review of Systems Vital Signs Vitals Vital Signs Date Time Temp Pulse Resp B/P Pulse Ox O2 Delivery O2 Flow Rate FiO2 08/09/16 12:31 59 08/09/16 11:51 98.3 18 154/80 96 08/07/16 08:15 Nasal Cannula Intake and Output 08/08/16 08/08/16 08/09/16 14:59 22:59 06:59 Intake Total 700 ml 200 ml Output Total 650 ml Balance 700 ml -450 ml Exam patient for stress test Results Result Diagram: 08/09/16 0543 08/09/16 0543 Results 24 hrs Laboratory Tests Test 08/08/16 17:10 08/08/16 20:10 08/09/16 05:43 08/09/16 07:37 Bedside Glucose 160 159 113 Anion Gap 14 Basophils # 0.0 Basophils % 1.4 Blood Urea Nitrogen 44 H Calcium Level 7.0 L Carbon Dioxide Level 26 Chloride Level 103 Creatinine 2.39 H Eosinophils # 0.2 Eosinophils % 6.4 Glucose Level 97 # Hematocrit 33.6 L Hemoglobin 10.8 L Lymphocytes # 1.0 Lymphocytes % 32.1 Mean Corpuscular Hemoglobin 30.4 Mean Corpuscular Hemoglobin Concent 32.1 Mean Corpuscular Volume 94.6 Mean Platelet Volume 10.0 Monocytes # 0.3 Monocytes % 10.8 Neutrophils # 1.5 L Neutrophils % 49.0 Nucleated Red Blood Cells # 0.0 Nucleated Red Blood Cells % 0.0 Platelet Count 138 L Potassium Level 4.6 Red Blood Count 3.55 L Red Cell Distribution Width 19.3 H Sodium Level 138 White Blood Count 3.0 L Test 08/09/16 11:32 Bedside Glucose 118 Medications Medications Current Medications Bumetanide (Bumex) 1 mg DAILY PO Last administered on 08/09/16 10:02; Admin Dose 1 MG; Start 08/07/16 at 09:00 Carvedilol (Coreg) 6.25 mg BID PO Last administered on 08/08/16 20:36; Admin Dose 6.25 MG; Start 08/06/16 at 21:00 Ferrous Sulfate (Ferrous Sulfate (Ec)) 325 mg BID PO Last administered on 20:35; Admin Dose 325 MG; Start 08/06/16 at 21:00 Finasteride (Proscar) 5 mg DAILY PO Last administered on 08/08/16 08:42; Admin Dose 5 MG; Start 08/07/16 at 09:00 Lactobacillus Acidoph/Bulgaricus (Floranex) 1 tab TID PO Last administered on 20:35; Admin Dose 1 TAB; Start 08/06/16 at 21:00 Pantoprazole (Protonix Tab) 40 mg DAILY PO Last administered on 08/08/16 08:41 ; Admin Dose 40 MG; Start 08/07/16 at 09:00 Rifampin (Rifampin) 600 mg DAILY PO Last administered on 08/07/16 08:41; Admin Dose 600 MG; Start 08/07/16 at 09:00 Simethicone (Mylicon) 80 mg Q6H PRN GTB DISTENSION/GAS/BLOATING; Start at 17:30 Tamsulosin HCl (Flomax) 0.4 mg QHS PO Last administered on 08/08/16 20:35; Admin Dose 0.4 MG; Start 08/06/16 at 21:00 Ondansetron HCl (Zofran Inj) 4 mg Q6H PRN IV NAUSEA AND/OR VOMITING Last administered on 08/09/16 05:57; Admin Dose 4 MG; Start 08/06/16 at 17:30 Acetaminophen (Tylenol Tab) 650 mg Q6H PRN PO PAIN LEVEL 1-3 OR FEVER; Start at 17:30 Acetaminophen (Tylenol Supp) 650 mg Q6H PRN [place] PAIN LEVEL 1-3 OR FEVER; Start 08/06/16 at 17:30 Acetaminophen/ Hydrocodone Bitart ([place] (5/325)) 1 tab Q6H PRN PO MODERATE PAIN LEVEL 4-6; Start 08/06/16 at 17:30 Acetaminophen/ Hydrocodone Bitart ([place] (5/325)) 2 tab Q6H PRN PO SEVERE PAIN LEVEL 7-10; Start 08/06/16 at 17:30 Morphine Sulfate (morphine) 2 mg Q4H PRN IV SEVERE PAIN LEVEL 7-10 Last administered on 08/09/16 10:03; Admin Dose 2 MG; Start 08/06/16 at 17:30 Docusate Sodium (Colace) 100 mg Q12H PRN PO CONSTIPATION; Start 08/06/16 at 17: 30 Magnesium Hydroxide (Milk Of Mag) 30 ml DAILY PRN PO CONSTIPATION; Start at 17:30 Bisacodyl (Dulcolax Supp) 10 mg DAILY PRN [place] CONSTIPATION; Start 08/06/16 at 17 :30 Heparin Sodium (Porcine) (Heparin (5000 Units/0.5 ml)) 5,000 unit Q12 SC Last administered on 08/09/16 08:36; Admin Dose 5,000 UNIT; Start 08/06/16 at 21:00 Diagnostic Test (Pha) (Accucheck) 1 ea 02 XX Last administered on 08/09/16 02: 24; Admin Dose 1 EA; Start 08/07/16 at 02:00 Hydralazine HCl (Apresoline) 10 mg Q6H PRN IV SBP>170 Last administered on 08/08 05:04; Admin Dose 10 MG; Start 08/06/16 at 17:30 Miscellaneous Information 1 ea NOTE XX ; Start 08/06/16 at 17:30 Glucose (Glutose) 15 gm Q15M PRN PO DECREASED GLUCOSE; Start 08/06/16 at 17:30 Glucose (Glutose) 22.5 gm Q15M PRN PO DECREASED GLUCOSE; Start 08/06/16 at 17: 30 Dextrose (D50w Syringe) 25 ml Q15M PRN IV DECREASED GLUCOSE; Start 08/06/16 at 17:30 Dextrose (D50w Syringe) 50 ml Q15M PRN IV DECREASED GLUCOSE; Start 08/06/16 at 17:30 Glucagon (Glucagen) 1 mg Q15M PRN IM DECREASED GLUCOSE; Start 08/06/16 at 17:30 Glucose (Glutose) 15 gm Q15M PRN BUCCAL DECREASED GLUCOSE; Start 08/06/16 at 17 :30 Vancomycin HCl PER PHARMACY DOSING NOTE XX ; Start 08/06/16 at 22:00 Vancomycin HCl (Vancocin) 100 ml @ 100 mls/hr Q48H IVPB Last administered on 20:39; Admin Dose 100 MLS/HR; Start 08/08/16 at 22:00 Levothyroxine Sodium 50 mcg 50 mcg DAILY@06 PO Last administered on 08/08/16 05:04; Admin Dose 50 MCG; Start 08/08/16 at 06:00 Piperacillin Sod/ Tazobactam Sod (Zosyn 2.25gm/ 50ml (Pmx)) 50 ml @ 100 mls/hr Q8 IVPB Last administered on 08/09/16 05:47; Admin Dose 100 MLS/HR; Start at 16:30 Hydralazine HCl (Apresoline) 100 mg TID PO Last administered on 08/08/16 20:36 ; Admin Dose 100 MG; Start 08/07/16 at 21:00 Isosorbide Dinitrate (Isordil) 20 mg TID PO Last administered on 08/08/16 20: 35; Admin Dose 20 MG; Start 08/07/16 at 21:00 Neomycin/ Polymyxin/ Hydrocortisone (Cortisporin Otic Susp) 4 drop TID BOTH EARS Last administered on 08/09/16 12:19; Admin Dose 4 DROP; Start 08/07/16 at 23:30; Stop 08/14/16 at 23:29 Nifedipine (Procardia Xl) 30 mg DAILY PO Last administered on 08/08/16 16:43; Admin Dose 30 MG; Start 08/08/16 at 14:30 RANDY SCHNEIDER Aug 09, 2016 13:16
[2016-08-09] MEDS ORDERED: REGADENOSON 0.4 MG/5 ML SYG ONE (13:28)
--- NOTE | 2016-08-09 14:03 | CONS ---
Date/Time of Note Date/Time of Note DATE: 08/09/16 TIME: 14:00 Assessment/Plan Assessment/Plan Additional Assessment/Plan 1. Positive troponin at outside hospital in the setting of renal failure, assess significance with a preserved ejection fraction by echo 02/2016-.All troponin negative here at [facility] - Stress test today - will follow 2. Hypertension, uncontrolled consistent with hypertensive urgency/emergency- BP high, did not get BP meds yet - will renew 3. Possible congestive heart failure, volume overload- stable now - will optimize fluid staus 4. Back pain with history of spinal abscess. 5. Benign prostatic hypertrophy. 6. Headache. 7. Diabetes mellitus- on meds - keep euglycemic Consultation Date/Type/Reason Admit Date/Time Aug 06, 2016 at 15:13 Initial Consult Date Type of Consultation: ID Referring Provider: JUDSON TREVINO 24 HR Interval Summary Free Text/Dictation No acute events - Stress test today - will follow s/p stress test ROS: No fever, no chills, no nausea, no vomiting, no diarrhea/constipation No recent weight changes No chest pain, no PND, no orthopnea No dizziness, blurred vision No thirst, no heat or cold intolerance Exam/Review of Systems Vital Signs Vitals Vital Signs Date Time Temp Pulse Resp B/P Pulse Ox O2 Delivery O2 Flow Rate FiO2 08/09/16 12:31 59 08/09/16 11:51 98.3 18 154/80 96 08/07/16 08:15 Nasal Cannula Intake and Output 08/08/16 08/08/16 08/09/16 15:00 23:00 07:00 Intake Total 700 ml 200 ml Output Total 650 ml Balance 700 ml -450 ml Exam General: WN/WD/NAD, AOx 3 HEENT: Unicetric/atraumatic/EOMI (follow commands), poor vision NECK: JVD elevated, no thyromegaly Lymph: no lymphadenopathy HEART: regular with no S3, II/ systolic murmur at apex LUNGS: Coarse sounds ABD: soft, NT, ND, +BS : Intact Neuro: non focal SKIN: chronic changes EXT: trace edema Results Result Diagram: 08/09/16 0543 08/09/16 0543 Results 24 hrs Laboratory Tests Test 08/08/16 17:10 08/08/16 20:10 08/09/16 05:43 08/09/16 07:37 Bedside Glucose 160 159 113 Anion Gap 14 Basophils # 0.0 Basophils % 1.4 Blood Urea Nitrogen 44 H Calcium Level 7.0 L Carbon Dioxide Level 26 Chloride Level 103 Creatinine 2.39 H Eosinophils # 0.2 Eosinophils % 6.4 Glucose Level 97 # Hematocrit 33.6 L Hemoglobin 10.8 L Lymphocytes # 1.0 Lymphocytes % 32.1 Mean Corpuscular Hemoglobin 30.4 Mean Corpuscular Hemoglobin Concent 32.1 Mean Corpuscular Volume 94.6 Mean Platelet Volume 10.0 Monocytes # 0.3 Monocytes % 10.8 Neutrophils # 1.5 L Neutrophils % 49.0 Nucleated Red Blood Cells # 0.0 Nucleated Red Blood Cells % 0.0 Platelet Count 138 L Potassium Level 4.6 Red Blood Count 3.55 L Red Cell Distribution Width 19.3 H Sodium Level 138 White Blood Count 3.0 L Test 08/09/16 11:32 Bedside Glucose 118 Medications Medications Current Medications Bumetanide (Bumex) 1 mg DAILY PO Last administered on 08/09/16 10:02; Admin Dose 1 MG; Start 08/07/16 at 09:00 Carvedilol (Coreg) 6.25 mg BID PO Last administered on 08/08/16 20:36; Admin Dose 6.25 MG; Start 08/06/16 at 21:00 Ferrous Sulfate (Ferrous Sulfate (Ec)) 325 mg BID PO Last administered on 20:35; Admin Dose 325 MG; Start 08/06/16 at 21:00 Finasteride (Proscar) 5 mg DAILY PO Last administered on 08/08/16 08:42; Admin Dose 5 MG; Start 08/07/16 at 09:00 Lactobacillus Acidoph/Bulgaricus (Floranex) 1 tab TID PO Last administered on 20:35; Admin Dose 1 TAB; Start 08/06/16 at 21:00 Pantoprazole (Protonix Tab) 40 mg DAILY PO Last administered on 08/08/16 08:41 ; Admin Dose 40 MG; Start 08/07/16 at 09:00 Rifampin (Rifampin) 600 mg DAILY PO Last administered on 08/07/16 08:41; Admin Dose 600 MG; Start 08/07/16 at 09:00 Simethicone (Mylicon) 80 mg Q6H PRN GTB DISTENSION/GAS/BLOATING; Start at 17:30 Tamsulosin HCl (Flomax) 0.4 mg QHS PO Last administered on 08/08/16 20:35; Admin Dose 0.4 MG; Start 08/06/16 at 21:00 Ondansetron HCl (Zofran Inj) 4 mg Q6H PRN IV NAUSEA AND/OR VOMITING Last administered on 08/09/16 05:57; Admin Dose 4 MG; Start 08/06/16 at 17:30 Acetaminophen (Tylenol Tab) 650 mg Q6H PRN PO PAIN LEVEL 1-3 OR FEVER; Start at 17:30 Acetaminophen (Tylenol Supp) 650 mg Q6H PRN [place] PAIN LEVEL 1-3 OR FEVER; Start 08/06/16 at 17:30 Acetaminophen/ Hydrocodone Bitart ([place] (5/325)) 1 tab Q6H PRN PO MODERATE PAIN LEVEL 4-6; Start 08/06/16 at 17:30 Acetaminophen/ Hydrocodone Bitart ([place] (5/325)) 2 tab Q6H PRN PO SEVERE PAIN LEVEL 7-10; Start 08/06/16 at 17:30 Morphine Sulfate (morphine) 2 mg Q4H PRN IV SEVERE PAIN LEVEL 7-10 Last administered on 08/09/16 10:03; Admin Dose 2 MG; Start 08/06/16 at 17:30 Docusate Sodium (Colace) 100 mg Q12H PRN PO CONSTIPATION; Start 08/06/16 at 17: 30 Magnesium Hydroxide (Milk Of Mag) 30 ml DAILY PRN PO CONSTIPATION; Start at 17:30 Bisacodyl (Dulcolax Supp) 10 mg DAILY PRN [place] CONSTIPATION; Start 08/06/16 at 17 :30 Heparin Sodium (Porcine) (Heparin (5000 Units/0.5 ml)) 5,000 unit Q12 SC Last administered on 08/09/16 08:36; Admin Dose 5,000 UNIT; Start 08/06/16 at 21:00 Diagnostic Test (Pha) (Accucheck) 1 ea 02 XX Last administered on 08/09/16 02: 24; Admin Dose 1 EA; Start 08/07/16 at 02:00 Hydralazine HCl (Apresoline) 10 mg Q6H PRN IV SBP>170 Last administered on 08/08 05:04; Admin Dose 10 MG; Start 08/06/16 at 17:30 Miscellaneous Information 1 ea NOTE XX ; Start 08/06/16 at 17:30 Glucose (Glutose) 15 gm Q15M PRN PO DECREASED GLUCOSE; Start 08/06/16 at 17:30 Glucose (Glutose) 22.5 gm Q15M PRN PO DECREASED GLUCOSE; Start 08/06/16 at 17: 30 Dextrose (D50w Syringe) 25 ml Q15M PRN IV DECREASED GLUCOSE; Start 08/06/16 at 17:30 Dextrose (D50w Syringe) 50 ml Q15M PRN IV DECREASED GLUCOSE; Start 08/06/16 at 17:30 Glucagon (Glucagen) 1 mg Q15M PRN IM DECREASED GLUCOSE; Start 08/06/16 at 17:30 Glucose (Glutose) 15 gm Q15M PRN BUCCAL DECREASED GLUCOSE; Start 08/06/16 at 17 :30 Vancomycin HCl PER PHARMACY DOSING NOTE XX ; Start 08/06/16 at 22:00 Vancomycin HCl (Vancocin) 100 ml @ 100 mls/hr Q48H IVPB Last administered on 20:39; Admin Dose 100 MLS/HR; Start 08/08/16 at 22:00 Levothyroxine Sodium 50 mcg 50 mcg DAILY@06 PO Last administered on 08/08/16 05:04; Admin Dose 50 MCG; Start 08/08/16 at 06:00 Piperacillin Sod/ Tazobactam Sod (Zosyn 2.25gm/ 50ml (Pmx)) 50 ml @ 100 mls/hr Q8 IVPB Last administered on 08/09/16 05:47; Admin Dose 100 MLS/HR; Start at 16:30 Hydralazine HCl (Apresoline) 100 mg TID PO Last administered on 08/08/16 20:36 ; Admin Dose 100 MG; Start 08/07/16 at 21:00 Isosorbide Dinitrate (Isordil) 20 mg TID PO Last administered on 08/08/16 20: 35; Admin Dose 20 MG; Start 08/07/16 at 21:00 Neomycin/ Polymyxin/ Hydrocortisone (Cortisporin Otic Susp) 4 drop TID BOTH EARS Last administered on 08/09/16 12:19; Admin Dose 4 DROP; Start 08/07/16 at 23:30; Stop 08/14/16 at 23:29 Nifedipine (Procardia Xl) 30 mg DAILY PO Last administered on 08/08/16 16:43; Admin Dose 30 MG; Start 08/08/16 at 14:30 JOSE GUILLAUME MD Aug 09, 2016 14:03
--- NOTE | 2016-08-09 14:03 | ECORPT ---
DATE OF SERVICE: 08/09/2016 PROCEDURE: Lexiscan Cardiolite stress test REFERRING PHYSICIAN: Humza Martin MD REASON FOR EVALUATION: Chest pain. DESCRIPTION OF TEST: The patient was brought into the heart station in a fasting condition. Initia l blood pressure was . The patient received blood pressure medicine which he did not receive i n the morning. He had successful Lexiscan injection. He tolerated the injection well. His blood p ressure was 118/62. The imaging portion of the report will be dictated separately. Dictated By: JOSE GUILLAUME MD ML/NTS Conf#: [id number] DID#: [id number]
--- NOTE | 2016-08-09 15:25 | CONS ---
Date/Time of Note Date/Time of Note DATE: 08/09/16 TIME: 15:22 Assessment/Plan Assessment/Plan Chief Complaint/Hosp Course SUBJECTIVE: No events lying comfortably in bed. No fevers. ANTIMICROBIALS: Vancomycin, Zosyn DIAGNOSTICS: Facial CT on admission revealed left partial middle ear and extensive mastoid opacification with associated effusions compatible with otomastoiditis. Bilateral maxillary sinus mucosal thickening and mild bilateral anterior ethmoid air cell mucosal thickening are also seen. INDWELLINGS: The patient has PICC line. PHYSICAL EXAMINATION: GENERAL: This is a well-developed middle-aged man who is awake, in no distress. HEENT: Head atraumatic, normocephalic. Sclerae anicteric. Buccal mucosa pink. NECK: Supple. CHEST: Rise symmetrical. Breath sounds clear. HEART: S1, S2. ABDOMEN: Soft. Bowel tones present. EXTREMITIES: No cyanosis. ASSESSMENT: 1. Left otomastoiditis with sinusitis. 2. Methicillin-resistant Staphylococcus aureus spinal abscess, status post decompressive laminectomy with evacuation of abscess done on 07/12/2016. 3. Chronic kidney disease with urinary retention. 4. Diabetes. 5. Hypertension. 6. UTI==> Enterobacter/yeast PLAN: The patient is stable. Change Zosyn to Cefepime, add Fluconazole, continue IV vancomycin until 09/07. Continue otic gtts per ENT. Follow recommendations of consultants. DW staff Problems: Consultation Date/Type/Reason Admit Date/Time Aug 06, 2016 at 15:13 Type of Consultation: ID Referring Provider: JUDSON TREVINO Exam/Review of Systems Vital Signs Vitals Vital Signs Date Time Temp Pulse Resp B/P Pulse Ox O2 Delivery O2 Flow Rate FiO2 08/09/16 12:31 59 08/09/16 11:51 98.3 18 154/80 96 08/07/16 08:15 Nasal Cannula Intake and Output 08/08/16 08/08/16 08/09/16 15:00 23:00 07:00 Intake Total 700 ml 200 ml Output Total 650 ml Balance 700 ml -450 ml Results Result Diagram: 08/09/16 0543 08/09/16 0543 Results 24 hrs Laboratory Tests Test 08/08/16 17:10 08/08/16 20:10 08/09/16 05:43 08/09/16 07:37 Bedside Glucose 160 159 113 Anion Gap 14 Basophils # 0.0 Basophils % 1.4 Blood Urea Nitrogen 44 H Calcium Level 7.0 L Carbon Dioxide Level 26 Chloride Level 103 Creatinine 2.39 H Eosinophils # 0.2 Eosinophils % 6.4 Glucose Level 97 # Hematocrit 33.6 L Hemoglobin 10.8 L Lymphocytes # 1.0 Lymphocytes % 32.1 Mean Corpuscular Hemoglobin 30.4 Mean Corpuscular Hemoglobin Concent 32.1 Mean Corpuscular Volume 94.6 Mean Platelet Volume 10.0 Monocytes # 0.3 Monocytes % 10.8 Neutrophils # 1.5 L Neutrophils % 49.0 Nucleated Red Blood Cells # 0.0 Nucleated Red Blood Cells % 0.0 Platelet Count 138 L Potassium Level 4.6 Red Blood Count 3.55 L Red Cell Distribution Width 19.3 H Sodium Level 138 White Blood Count 3.0 L Test 08/09/16 11:32 Bedside Glucose 118 Medications Medications Current Medications Bumetanide (Bumex) 1 mg DAILY PO Last administered on 08/09/16 10:02; Admin Dose 1 MG; Start 08/07/16 at 09:00 Carvedilol (Coreg) 6.25 mg BID PO Last administered on 08/09/16 14:46; Admin Dose 6.25 MG; Start 08/06/16 at 21:00 Ferrous Sulfate (Ferrous Sulfate (Ec)) 325 mg BID PO Last administered on 14:45; Admin Dose 325 MG; Start 08/06/16 at 21:00 Finasteride (Proscar) 5 mg DAILY PO Last administered on 08/09/16 14:45; Admin Dose 5 MG; Start 08/07/16 at 09:00 Lactobacillus Acidoph/Bulgaricus (Floranex) 1 tab TID PO Last administered on 14:45; Admin Dose 1 TAB; Start 08/06/16 at 21:00 Pantoprazole (Protonix Tab) 40 mg DAILY PO Last administered on 08/09/16 14:46 ; Admin Dose 40 MG; Start 08/07/16 at 09:00 Rifampin (Rifampin) 600 mg DAILY PO Last administered on 08/09/16 14:46; Admin Dose 600 MG; Start 08/07/16 at 09:00 Simethicone (Mylicon) 80 mg Q6H PRN GTB DISTENSION/GAS/BLOATING; Start at 17:30 Tamsulosin HCl (Flomax) 0.4 mg QHS PO Last administered on 08/08/16 20:35; Admin Dose 0.4 MG; Start 08/06/16 at 21:00 Ondansetron HCl (Zofran Inj) 4 mg Q6H PRN IV NAUSEA AND/OR VOMITING Last administered on 08/09/16 14:39; Admin Dose 4 MG; Start 08/06/16 at 17:30 Acetaminophen (Tylenol Tab) 650 mg Q6H PRN PO PAIN LEVEL 1-3 OR FEVER; Start at 17:30 Acetaminophen (Tylenol Supp) 650 mg Q6H PRN [place] PAIN LEVEL 1-3 OR FEVER; Start 08/06/16 at 17:30 Acetaminophen/ Hydrocodone Bitart ([place] (5/325)) 1 tab Q6H PRN PO MODERATE PAIN LEVEL 4-6; Start 08/06/16 at 17:30 Acetaminophen/ Hydrocodone Bitart ([place] (5/325)) 2 tab Q6H PRN PO SEVERE PAIN LEVEL 7-10; Start 08/06/16 at 17:30 Morphine Sulfate (morphine) 2 mg Q4H PRN IV SEVERE PAIN LEVEL 7-10 Last administered on 08/09/16 14:40; Admin Dose 2 MG; Start 08/06/16 at 17:30 Docusate Sodium (Colace) 100 mg Q12H PRN PO CONSTIPATION; Start 08/06/16 at 17: 30 Magnesium Hydroxide (Milk Of Mag) 30 ml DAILY PRN PO CONSTIPATION; Start at 17:30 Bisacodyl (Dulcolax Supp) 10 mg DAILY PRN [place] CONSTIPATION; Start 08/06/16 at 17 :30 Heparin Sodium (Porcine) (Heparin (5000 Units/0.5 ml)) 5,000 unit Q12 SC Last administered on 08/09/16 08:36; Admin Dose 5,000 UNIT; Start 08/06/16 at 21:00 Diagnostic Test (Pha) (Accucheck) 1 ea 02 XX Last administered on 08/09/16 02: 24; Admin Dose 1 EA; Start 08/07/16 at 02:00 Hydralazine HCl (Apresoline) 10 mg Q6H PRN IV SBP>170 Last administered on 08/08 05:04; Admin Dose 10 MG; Start 08/06/16 at 17:30 Miscellaneous Information 1 ea NOTE XX ; Start 08/06/16 at 17:30 Glucose (Glutose) 15 gm Q15M PRN PO DECREASED GLUCOSE; Start 08/06/16 at 17:30 Glucose (Glutose) 22.5 gm Q15M PRN PO DECREASED GLUCOSE; Start 08/06/16 at 17: 30 Dextrose (D50w Syringe) 25 ml Q15M PRN IV DECREASED GLUCOSE; Start 08/06/16 at 17:30 Dextrose (D50w Syringe) 50 ml Q15M PRN IV DECREASED GLUCOSE; Start 08/06/16 at 17:30 Glucagon (Glucagen) 1 mg Q15M PRN IM DECREASED GLUCOSE; Start 08/06/16 at 17:30 Glucose (Glutose) 15 gm Q15M PRN BUCCAL DECREASED GLUCOSE; Start 08/06/16 at 17 :30 Vancomycin HCl PER PHARMACY DOSING NOTE XX ; Start 08/06/16 at 22:00 Vancomycin HCl (Vancocin) 100 ml @ 100 mls/hr Q48H IVPB Last administered on 20:39; Admin Dose 100 MLS/HR; Start 08/08/16 at 22:00 Levothyroxine Sodium 50 mcg 50 mcg DAILY@06 PO Last administered on 08/08/16 05:04; Admin Dose 50 MCG; Start 08/08/16 at 06:00 Piperacillin Sod/ Tazobactam Sod (Zosyn 2.25gm/ 50ml (Pmx)) 50 ml @ 100 mls/hr Q8 IVPB Last administered on 08/09/16 14:54; Admin Dose 100 MLS/HR; Start at 16:30 Hydralazine HCl (Apresoline) 100 mg TID PO Last administered on 08/08/16 20:36 ; Admin Dose 100 MG; Start 08/07/16 at 21:00 Isosorbide Dinitrate (Isordil) 20 mg TID PO Last administered on 08/08/16 20: 35; Admin Dose 20 MG; Start 08/07/16 at 21:00 Neomycin/ Polymyxin/ Hydrocortisone (Cortisporin Otic Susp) 4 drop TID BOTH EARS Last administered on 08/09/16 12:19; Admin Dose 4 DROP; Start 08/07/16 at 23:30; Stop 08/14/16 at 23:29 Nifedipine (Procardia Xl) 30 mg DAILY PO Last administered on 08/09/16 14:47; Admin Dose 30 MG; Start 08/08/16 at 14:30 DORENE GARCIA NP Aug 09, 2016 15:24
[2016-08-09] MEDS: FLUCONAZOLE 100 MG TAB PO SCH (16:43)
[2016-08-09] MEDS: CEFEPIME 1GM/50 ML (PMX) 50 ML IVPB SCH (17:28)
--- NOTE | 2016-08-09 17:42 | RADRPT ---
PROCEDURE: Nuclear medicine myocardial stress and rest scan. CLINICAL INDICATION: Chest pain. TECHNIQUE: The patient was stressed with 0.4 mg IV Lexiscan. 10.1 mCi technetium 99m Tetrofosmin (Myoview) was administered rest. 30.4 mCi technetium 99m Tetrofosmin (Myoview) was administered du ring stress. Images were obtained and reconstructed in the short axis, horizontal long axis, and ve rtical long axis. Gated images were obtained and ejection fraction was calculated. COMPARISON: No prior study is available for comparison. FINDINGS: The stress and rest images demonstrate normal uptake throughout. There is no fixed abnormality or r eversible abnormality. There is no evidence of transient ischemic dilatation. Wall motion is normal. There is normal wall thickening during systole. Ejection fraction at stress is 55%. IMPRESSION: 1. No evidence of stress induced myocardial ischemia. 2. Ejection fraction at stress is 55%. RPTAT: QQ .Umang Dale MD, MD Date Time Electronically viewed and signed by .Umang Dale MD, on 08/09/2016 17:42 .R/
[2016-08-09] MEDS: TAMSULOSIN (SR) 0.4 MG CAP PO SCH (21:10)
[2016-08-10] VITALS (13 sets, daily range): BP systolic 128–193; BP diastolic 66–98; PULSE 62–68; RESP 16–20
[2016-08-10] MEDS: ACCU-CHEK XX SCH (02:00)
[2016-08-10] MEDS: LEVOTHYROXINE 50 MCG TAB PO SCH (06:00)
[2016-08-10] MEDS: INSULIN ASPART [NOVOLOG] 3 ML PEN SC SCH ×4 (08:00→21:00)
[2016-08-10] MEDS: hydrALAzine 20 MG INJ IV PRN (08:02)
[2016-08-10] MEDS: ONDANSETRON 4 MG INJ IV PRN ×2 (08:15→21:15)
[2016-08-10] MEDS: HEPARIN 5,000 UNIT/0.5 ML SYG SC SCH ×2 (08:20→21:07)
[2016-08-10] MEDS: BUMETANIDE 1 MG TAB PO SCH (08:20)
[2016-08-10] MEDS: NEOMYC/POLYMYX/HC 10 ML OTIC SUSP BOTH EARS SCH ×3 (08:20→21:08)
[2016-08-10] MEDS: RIFAMPIN 300 MG CAP PO SCH (08:21)
[2016-08-10] MEDS: ISOSORBIDE DINITRATE 20 MG TAB PO SCH ×3 (08:21→21:09)
[2016-08-10] MEDS: FERROUS SULFATE (EC) 325 MG TAB PO SCH ×2 (08:21→21:09)
[2016-08-10] MEDS: NIFEdipine (XL) 30 MG TAB PO SCH (08:21)
[2016-08-10] MEDS: PANTOPRAZOLE (EC) 40 MG TAB PO SCH (08:22)
[2016-08-10] MEDS: LACTOBACILLUS CHEW TAB PO SCH ×3 (08:22→21:09)
[2016-08-10] MEDS: FLUCONAZOLE 100 MG TAB PO SCH (08:23)
[2016-08-10] MEDS: FINASTERIDE 5 MG TAB PO SCH (08:23)
[2016-08-10 09:19] LABS: ADD SCAN DIFF NO
[2016-08-10 09:24] LABS: BASOPHILS % 0.9 % (0.0-2.0); EOSINOPHILS # 0.2 10^3/ul (0.0-0.5); EOSINOPHILS % 4.6 % (0.0-7.0); HEMATOCRIT 35.7 % (42.0-52.0); HEMOGLOBIN 11.2 g/dl (14.0-18.0); LYMPHOCYTES # 1.1 10^3/ul (0.8-2.9); LYMPHOCYTES % 33.1 % (15.0-51.0); MEAN CORPUSCULAR HEMOGLOBIN 29.9 pg (29.0-33.0); MEAN CORPUSCULAR HGB CONC 31.4 g/dl (32.0-37.0); MEAN CORPUSCULAR VOLUME 95.5 fl (82.0-101.0); MEAN PLATELET VOLUME 10.3 fl (7.4-10.4); MONOCYTE # 0.3 10^3/ul (0.3-0.9); MONOCYTES % 9.4 % (0.0-11.0); NEUTROPHIL # 1.7 10^3/ul (1.6-7.5); PLATELET COUNT 145 10^3/UL (140-415); RED BLOOD COUNT 3.74 10^6/ul (4.70-6.10); RED CELL DISTRIBUTION WIDTH 18.9 % (11.5-14.5); WHITE BLOOD COUNT 3.3 10^3/ul (4.8-10.8)
[2016-08-10 09:40] LABS: POTASSIUM 4.6 mmol/L (3.5-5.1)
[2016-08-10 09:43] LABS: CREATININE 2.56 mg/dl (0.61-1.24)
[2016-08-10 09:44] LABS: CALCIUM 7.6 mg/dl (8.4-10.2)
[2016-08-10] MEDS: morphine 2 MG INJ IV PRN ×3 (09:51→21:29)
--- NOTE | 2016-08-10 14:08 | PN ---
Date/Time of Note Date/Time of Note DATE: 08/10/16 TIME: 14:02 Assessment/Plan VTE Prophylaxis VTE Prophylaxis Intervention: heparin Lines/Catheters IV C[facility] Type (from [facility] PICC Line Urinary Cath still in place: Yes Assessment/Plan Chief Complaint/Hosp Course DISPO/PLAN: 1. Uncontrolled blood pressure. Discussed with multidisciplinary team. High blood pressure noted to be positional. Continue with antihypertensives and adjust as needed 2. Elevated troponin, in the setting of chronic kidney disease. Heel Cutter following. Of note, recent echocardiogram did show patient to have ejection fraction of 55% with stage I diastolic dysfunction. Continue with cardiology recommendations. s/p stress test stress test 08/09/16: - No evidence of stress induced myocardial ischemia. - Ejection fraction at stress is 55%. cont optimization with cardiac meds 3. Acute kidney injury on likely chronic kidney disease. Sewer Inspector did follow. Renal function likely at baseline. Will monitor 4. Recent spinal abscess with methicillin-resistant Staphylococcus aureus. Continue abx per ID. Stable at present 5. Urinary tract infection. culture did show: ENTEROBACTER AEROGENES. abx per ID 6. History of iron deficiency anemia. We will continue the patient on his iron supplement. 7. Benign prostatic hypertrophy. Continue on finasteride. 8. History of diabetes. Continue on insulin regimen. 9. . Left partial middle ear and extensive mastoid opacification with associated effusions compatible with ostomastoiditis. GTT abx per ENT 10. Deep venous thrombosis prophylaxis: Heparin. 11. Gastroesophageal reflux disease prophylaxis: Proton pump inhibitor. Disposition and plan: s/p stress test with no evidence of stress-induced myocardial infraction. Continue antibiotics per ID. Follow-up with case management for placement. Discharge when cleared by consultants Discussed plan of care with Dr. Gilbert Problems: Subjective 24 Hr Interval Summary Free Text/Dictation no s/s of distress. resting at this time Exam/Review of Systems Vital Signs Vitals Vital Signs Date Time Temp Pulse Resp B/P Pulse Ox O2 Delivery O2 Flow Rate FiO2 08/10/16 12:06 68 08/10/16 12:01 98.7 18 159/84 96 08/07/16 08:15 Nasal Cannula Intake and Output 08/09/16 08/09/16 08/10/16 15:00 23:00 07:00 Intake Total 100 ml 400 ml Output Total 600 ml Balance 100 ml -200 ml Exam General:no chest pain or resp distress at this time Eyes: Pupils equal, round. anicteric sclerae Neck: Supple nontender, no JVD Cardiac: regular rate Pulmonary: No adventitious lung sounds today GI: Soft nontender nondistended Extremities: less edema ble Skin: [place] on back from surgical site clean dry and intact Neurologic: MELISSA 3 Results Result Diagram: 08/10/16 0900 08/10/16 0900 Results 24 hrs Laboratory Tests Test 08/09/16 17:15 08/09/16 21:07 08/10/16 07:29 08/10/16 09:00 Bedside Glucose 117 126 97 Anion Gap 14 Basophils # 0.0 Basophils % 0.9 Blood Urea Nitrogen 45 H Calcium Level 7.6 L Carbon Dioxide Level 24 Chloride Level 107 Creatinine 2.56 H Eosinophils # 0.2 Eosinophils % 4.6 Glucose Level 86 Hematocrit 35.7 L Hemoglobin 11.2 L Lymphocytes # 1.1 Lymphocytes % 33.1 Mean Corpuscular Hemoglobin 29.9 Mean Corpuscular Hemoglobin Concent 31.4 L Mean Corpuscular Volume 95.5 Mean Platelet Volume 10.3 Monocytes # 0.3 Monocytes % 9.4 Neutrophils # 1.7 Neutrophils % 52.0 Nucleated Red Blood Cells # 0.0 Nucleated Red Blood Cells % 0.0 Platelet Count 145 Potassium Level 4.6 Red Blood Count 3.74 L Red Cell Distribution Width 18.9 H Sodium Level 140 White Blood Count 3.3 L Test 08/10/16 11:22 Bedside Glucose 145 Medications Medications Current Medications Bumetanide (Bumex) 1 mg DAILY PO Last administered on 08/10/16 08:20; Admin Dose 1 MG; Start 08/07/16 at 09:00 Carvedilol (Coreg) 6.25 mg BID PO Last administered on 08/10/16 08:22; Admin Dose 6.25 MG; Start 08/06/16 at 21:00 Ferrous Sulfate (Ferrous Sulfate (Ec)) 325 mg BID PO Last administered on 08:21; Admin Dose 325 MG; Start 08/06/16 at 21:00 Finasteride (Proscar) 5 mg DAILY PO Last administered on 08/10/16 08:23; Admin Dose 5 MG; Start 08/07/16 at 09:00 Lactobacillus Acidoph/Bulgaricus (Floranex) 1 tab TID PO Last administered on 12:19; Admin Dose 1 TAB; Start 08/06/16 at 21:00 Pantoprazole (Protonix Tab) 40 mg DAILY PO Last administered on 08/10/16 08:22 ; Admin Dose 40 MG; Start 08/07/16 at 09:00 Rifampin (Rifampin) 600 mg DAILY PO Last administered on 08/10/16 08:21; Admin Dose 600 MG; Start 08/07/16 at 09:00 Simethicone (Mylicon) 80 mg Q6H PRN GTB DISTENSION/GAS/BLOATING; Start at 17:30 Tamsulosin HCl (Flomax) 0.4 mg QHS PO Last administered on 08/09/16 21:10; Admin Dose 0.4 MG; Start 08/06/16 at 21:00 Ondansetron HCl (Zofran Inj) 4 mg Q6H PRN IV NAUSEA AND/OR VOMITING Last administered on 08/10/16 08:15; Admin Dose 4 MG; Start 08/06/16 at 17:30 Acetaminophen (Tylenol Tab) 650 mg Q6H PRN PO PAIN LEVEL 1-3 OR FEVER; Start at 17:30 Acetaminophen (Tylenol Supp) 650 mg Q6H PRN [place] PAIN LEVEL 1-3 OR FEVER; Start 08/06/16 at 17:30 Acetaminophen/ Hydrocodone Bitart ([place] (5/325)) 1 tab Q6H PRN PO MODERATE PAIN LEVEL 4-6; Start 08/06/16 at 17:30 Acetaminophen/ Hydrocodone Bitart ([place] (5/325)) 2 tab Q6H PRN PO SEVERE PAIN LEVEL 7-10 Last administered on 08/09/16 15:27; Admin Dose 2 TAB; Start at 17:30 Morphine Sulfate (morphine) 2 mg Q4H PRN IV SEVERE PAIN LEVEL 7-10 Last administered on 08/10/16 09:51; Admin Dose 2 MG; Start 08/06/16 at 17:30 Docusate Sodium (Colace) 100 mg Q12H PRN PO CONSTIPATION; Start 08/06/16 at 17: 30 Magnesium Hydroxide (Milk Of Mag) 30 ml DAILY PRN PO CONSTIPATION; Start at 17:30 Bisacodyl (Dulcolax Supp) 10 mg DAILY PRN [place] CONSTIPATION; Start 08/06/16 at 17 :30 Heparin Sodium (Porcine) (Heparin (5000 Units/0.5 ml)) 5,000 unit Q12 SC Last administered on 08/10/16 08:20; Admin Dose 5,000 UNIT; Start 08/06/16 at 21:00 Diagnostic Test (Pha) (Accucheck) 1 ea 02 XX Last administered on 08/09/16 02: 24; Admin Dose 1 EA; Start 08/07/16 at 02:00 Hydralazine HCl (Apresoline) 10 mg Q6H PRN IV SBP>170 Last administered on 08/10 08:02; Admin Dose 10 MG; Start 08/06/16 at 17:30 Miscellaneous Information 1 ea NOTE XX ; Start 08/06/16 at 17:30 Glucose (Glutose) 15 gm Q15M PRN PO DECREASED GLUCOSE; Start 08/06/16 at 17:30 Glucose (Glutose) 22.5 gm Q15M PRN PO DECREASED GLUCOSE; Start 08/06/16 at 17: 30 Dextrose (D50w Syringe) 25 ml Q15M PRN IV DECREASED GLUCOSE; Start 08/06/16 at 17:30 Dextrose (D50w Syringe) 50 ml Q15M PRN IV DECREASED GLUCOSE; Start 08/06/16 at 17:30 Glucagon (Glucagen) 1 mg Q15M PRN IM DECREASED GLUCOSE; Start 08/06/16 at 17:30 Glucose (Glutose) 15 gm Q15M PRN BUCCAL DECREASED GLUCOSE; Start 08/06/16 at 17 :30 Vancomycin HCl PER PHARMACY DOSING NOTE XX ; Start 08/06/16 at 22:00 Vancomycin HCl (Vancocin) 100 ml @ 100 mls/hr Q48H IVPB Last administered on 20:39; Admin Dose 100 MLS/HR; Start 08/08/16 at 22:00 Levothyroxine Sodium (Synthroid) 50 mcg DAILY@06 PO Last administered on 05:04; Admin Dose 50 MCG; Start 08/08/16 at 06:00 Hydralazine HCl (Apresoline) 100 mg TID PO Last administered on 08/10/16 12:19 ; Admin Dose 100 MG; Start 08/07/16 at 21:00 Isosorbide Dinitrate (Isordil) 20 mg TID PO Last administered on 08/10/16 12: 19; Admin Dose 20 MG; Start 08/07/16 at 21:00 Neomycin/ Polymyxin/ Hydrocortisone (Cortisporin Otic Susp) 4 drop TID BOTH EARS Last administered on 08/10/16 12:19; Admin Dose 4 DROP; Start 08/07/16 at 23:30; Stop 08/14/16 at 23:29 Nifedipine 30 mg 30 mg DAILY PO Last administered on 08/10/16 08:21; Admin Dose 30 MG; Start 08/08/16 at 14:30 Cefepime HCl (Maxipime 1gm/50 ml (Pmx)) 50 ml @ 100 mls/hr Q24H IVPB Last administered on 08/09/16 17:28; Admin Dose 100 MLS/HR; Start 08/09/16 at 18:00 Fluconazole (Diflucan) 100 mg DAILY PO Last administered on 08/10/16 08:23; Admin Dose 100 MG; Start 08/09/16 at 16:00 RANDY SCHNEIDER Aug 10, 2016 14:07
--- NOTE | 2016-08-10 15:26 | CONS ---
Date/Time of Note Date/Time of Note DATE: 08/10/16 TIME: 15:25 Assessment/Plan Assessment/Plan Chief Complaint/Hosp Course SUBJECTIVE: No events lying comfortably in bed. No fevers. ANTIMICROBIALS: Vancomycin, Cefepime, Diflucan DIAGNOSTICS: Facial CT on admission revealed left partial middle ear and extensive mastoid opacification with associated effusions compatible with otomastoiditis. Bilateral maxillary sinus mucosal thickening and mild bilateral anterior ethmoid air cell mucosal thickening are also seen. INDWELLINGS: The patient has PICC line. PHYSICAL EXAMINATION: GENERAL: This is a well-developed middle-aged man who is awake, in no distress. HEENT: Head atraumatic, normocephalic. Sclerae anicteric. Buccal mucosa pink. NECK: Supple. CHEST: Rise symmetrical. Breath sounds clear. HEART: S1, S2. ABDOMEN: Soft. Bowel tones present. EXTREMITIES: No cyanosis. ASSESSMENT: 1. Left otomastoiditis, sinusitis. 2. Methicillin-resistant Staphylococcus aureus spinal abscess, status post decompressive laminectomy with evacuation of abscess done on 07/12/2016. 3. Chronic kidney disease with urinary retention. 4. Diabetes. 5. Hypertension. 6. UTI==> Enterobacter/yeast PLAN: The patient is stable. Continue abx, continue IV vancomycin until . Continue otic gtts per ENT. Follow recommendations of consultants. DW staff Problems: Consultation Date/Type/Reason Admit Date/Time Aug 06, 2016 at 15:13 Type of Consultation: ID Referring Provider: JUDSON TREVINO Exam/Review of Systems Vital Signs Vitals Vital Signs Date Time Temp Pulse Resp B/P Pulse Ox O2 Delivery O2 Flow Rate FiO2 08/10/16 12:06 68 08/10/16 12:01 98.7 18 159/84 96 08/07/16 08:15 Nasal Cannula Intake and Output 08/09/16 08/09/16 08/10/16 15:00 23:00 07:00 Intake Total 100 ml 400 ml Output Total 600 ml Balance 100 ml -200 ml Results Result Diagram: 08/10/16 0900 08/10/16 0900 Results 24 hrs Laboratory Tests Test 08/09/16 17:15 08/09/16 21:07 08/10/16 07:29 08/10/16 09:00 Bedside Glucose 117 126 97 Anion Gap 14 Basophils # 0.0 Basophils % 0.9 Blood Urea Nitrogen 45 H Calcium Level 7.6 L Carbon Dioxide Level 24 Chloride Level 107 Creatinine 2.56 H Eosinophils # 0.2 Eosinophils % 4.6 Glucose Level 86 Hematocrit 35.7 L Hemoglobin 11.2 L Lymphocytes # 1.1 Lymphocytes % 33.1 Mean Corpuscular Hemoglobin 29.9 Mean Corpuscular Hemoglobin Concent 31.4 L Mean Corpuscular Volume 95.5 Mean Platelet Volume 10.3 Monocytes # 0.3 Monocytes % 9.4 Neutrophils # 1.7 Neutrophils % 52.0 Nucleated Red Blood Cells # 0.0 Nucleated Red Blood Cells % 0.0 Platelet Count 145 Potassium Level 4.6 Red Blood Count 3.74 L Red Cell Distribution Width 18.9 H Sodium Level 140 White Blood Count 3.3 L Test 08/10/16 11:22 Bedside Glucose 145 Medications Medications Current Medications Bumetanide (Bumex) 1 mg DAILY PO Last administered on 08/10/16 08:20; Admin Dose 1 MG; Start 08/07/16 at 09:00 Carvedilol (Coreg) 6.25 mg BID PO Last administered on 08/10/16 08:22; Admin Dose 6.25 MG; Start 08/06/16 at 21:00 Ferrous Sulfate (Ferrous Sulfate (Ec)) 325 mg BID PO Last administered on 08:21; Admin Dose 325 MG; Start 08/06/16 at 21:00 Finasteride (Proscar) 5 mg DAILY PO Last administered on 08/10/16 08:23; Admin Dose 5 MG; Start 08/07/16 at 09:00 Lactobacillus Acidoph/Bulgaricus (Floranex) 1 tab TID PO Last administered on 12:19; Admin Dose 1 TAB; Start 08/06/16 at 21:00 Pantoprazole (Protonix Tab) 40 mg DAILY PO Last administered on 08/10/16 08:22 ; Admin Dose 40 MG; Start 08/07/16 at 09:00 Rifampin (Rifampin) 600 mg DAILY PO Last administered on 08/10/16 08:21; Admin Dose 600 MG; Start 08/07/16 at 09:00 Simethicone (Mylicon) 80 mg Q6H PRN GTB DISTENSION/GAS/BLOATING; Start at 17:30 Tamsulosin HCl (Flomax) 0.4 mg QHS PO Last administered on 08/09/16 21:10; Admin Dose 0.4 MG; Start 08/06/16 at 21:00 Ondansetron HCl (Zofran Inj) 4 mg Q6H PRN IV NAUSEA AND/OR VOMITING Last administered on 08/10/16 08:15; Admin Dose 4 MG; Start 08/06/16 at 17:30 Acetaminophen (Tylenol Tab) 650 mg Q6H PRN PO PAIN LEVEL 1-3 OR FEVER; Start at 17:30 Acetaminophen (Tylenol Supp) 650 mg Q6H PRN [place] PAIN LEVEL 1-3 OR FEVER; Start 08/06/16 at 17:30 Acetaminophen/ Hydrocodone Bitart ([place] (5/325)) 1 tab Q6H PRN PO MODERATE PAIN LEVEL 4-6; Start 08/06/16 at 17:30 Acetaminophen/ Hydrocodone Bitart ([place] (5/325)) 2 tab Q6H PRN PO SEVERE PAIN LEVEL 7-10 Last administered on 08/09/16 15:27; Admin Dose 2 TAB; Start at 17:30 Morphine Sulfate (morphine) 2 mg Q4H PRN IV SEVERE PAIN LEVEL 7-10 Last administered on 08/10/16 09:51; Admin Dose 2 MG; Start 08/06/16 at 17:30 Docusate Sodium (Colace) 100 mg Q12H PRN PO CONSTIPATION; Start 08/06/16 at 17: 30 Magnesium Hydroxide (Milk Of Mag) 30 ml DAILY PRN PO CONSTIPATION; Start at 17:30 Bisacodyl (Dulcolax Supp) 10 mg DAILY PRN [place] CONSTIPATION; Start 08/06/16 at 17 :30 Heparin Sodium (Porcine) (Heparin (5000 Units/0.5 ml)) 5,000 unit Q12 SC Last administered on 08/10/16 08:20; Admin Dose 5,000 UNIT; Start 08/06/16 at 21:00 Diagnostic Test (Pha) (Accucheck) 1 ea 02 XX Last administered on 08/09/16 02: 24; Admin Dose 1 EA; Start 08/07/16 at 02:00 Hydralazine HCl (Apresoline) 10 mg Q6H PRN IV SBP>170 Last administered on 08/10 08:02; Admin Dose 10 MG; Start 08/06/16 at 17:30 Miscellaneous Information 1 ea NOTE XX ; Start 08/06/16 at 17:30 Glucose (Glutose) 15 gm Q15M PRN PO DECREASED GLUCOSE; Start 08/06/16 at 17:30 Glucose (Glutose) 22.5 gm Q15M PRN PO DECREASED GLUCOSE; Start 08/06/16 at 17: 30 Dextrose (D50w Syringe) 25 ml Q15M PRN IV DECREASED GLUCOSE; Start 08/06/16 at 17:30 Dextrose (D50w Syringe) 50 ml Q15M PRN IV DECREASED GLUCOSE; Start 08/06/16 at 17:30 Glucagon (Glucagen) 1 mg Q15M PRN IM DECREASED GLUCOSE; Start 08/06/16 at 17:30 Glucose (Glutose) 15 gm Q15M PRN BUCCAL DECREASED GLUCOSE; Start 08/06/16 at 17 :30 Vancomycin HCl PER PHARMACY DOSING NOTE XX ; Start 08/06/16 at 22:00 Vancomycin HCl (Vancocin) 100 ml @ 100 mls/hr Q48H IVPB Last administered on 20:39; Admin Dose 100 MLS/HR; Start 08/08/16 at 22:00 Levothyroxine Sodium (Synthroid) 50 mcg DAILY@06 PO Last administered on 05:04; Admin Dose 50 MCG; Start 08/08/16 at 06:00 Hydralazine HCl (Apresoline) 100 mg TID PO Last administered on 08/10/16 12:19 ; Admin Dose 100 MG; Start 08/07/16 at 21:00 Isosorbide Dinitrate (Isordil) 20 mg TID PO Last administered on 08/10/16 12: 19; Admin Dose 20 MG; Start 08/07/16 at 21:00 Neomycin/ Polymyxin/ Hydrocortisone (Cortisporin Otic Susp) 4 drop TID BOTH EARS Last administered on 08/10/16 12:19; Admin Dose 4 DROP; Start 08/07/16 at 23:30; Stop 08/14/16 at 23:29 Nifedipine 30 mg 30 mg DAILY PO Last administered on 3/19/17at 08:21; Admin Dose 30 MG; Start 08/08/16 at 14:30 Cefepime HCl (Maxipime 1gm/50 ml (Pmx)) 50 ml @ 100 mls/hr Q24H IVPB Last administered on 08/09/16t 17:28; Admin Dose 100 MLS/HR; Start 08/09/16 at 18:00 Fluconazole (Diflucan) 100 mg DAILY PO Last administered on 08/10/16 08:23; Admin Dose 100 MG; Start 08/09/16 at 16:00 Miscellaneous Information (*Rx Drug Level Order Reminder*) VANCOMYCIN TROUGH AT 2100 ONCE ONCE XX ; Start 08/10/16 at 21:00; Stop 08/10/16 at 21:01 DORENE GARCIA NP Aug 10, 2016 15:26
[2016-08-10] MEDS: CEFEPIME 1GM/50 ML (PMX) 50 ML IVPB SCH (17:34)
--- NOTE | 2016-08-10 19:19 | CONS ---
Date/Time of Note Date/Time of Note DATE: 08/10/16 TIME: 19:16 Assessment/Plan Assessment/Plan Additional Assessment/Plan 1. Positive troponin at outside hospital in the setting of renal failure, assess significance with a preserved ejection fraction by echo 02/2016-.All troponin negative here at [facility] - Stress: No evidence of stress induced myocardial ischemia, Ejection fraction at stress is 55%.- no LHC needed 2. Hypertension, uncontrolled consistent with hypertensive urgency/emergency- BP high, did not get BP meds yet - will renew 3. Possible congestive heart failure, volume overload- stable now - will optimize fluid status - better now 4. Back pain with history of spinal abscess. 5. Benign prostatic hypertrophy. 6. Headache. 7. Diabetes mellitus- on meds - keep euglycemic Consultation Date/Type/Reason Admit Date/Time Aug 06, 2016 at 15:13 Type of Consultation: ID Referring Provider: JUDSON TREVINO 24 HR Interval Summary Free Text/Dictation No evidence of ischemia on stress test - no LHC planned now. ROS: No fever, no chills, no nausea, no vomiting, no diarrhea/constipation No recent weight changes No chest pain, no PND, no orthopnea No dizziness, blurred vision No thirst, no heat or cold intolerance Exam/Review of Systems Vital Signs Vitals Vital Signs Date Time Temp Pulse Resp B/P Pulse Ox O2 Delivery O2 Flow Rate FiO2 08/10/16 16:11 97.7 71 18 151/82 97 08/07/16 08:15 Nasal Cannula Intake and Output 08/09/16 08/09/16 08/10/16 15:00 23:00 07:00 Intake Total 100 ml 400 ml Output Total 600 ml Balance 100 ml -200 ml Exam General: WN/WD/NAD, AOx 3 HEENT: Unicetric/atraumatic/EOMI (follow commands) NECK: JVD elevated, no thyromegaly Lymph: no lymphadenopathy HEART: regular with no S3, II/ systolic murmur at apex LUNGS: Coarse sounds ABD: soft, NT, ND, +BS : Intact Neuro: non focal SKIN: chronic changes EXT: trace edema Results Result Diagram: 08/10/16 0900 08/10/16 0900 Results 24 hrs Laboratory Tests Test 08/09/16 21:07 08/10/16 07:29 08/10/16 09:00 08/10/16 11:22 Bedside Glucose 126 97 145 Anion Gap 14 Basophils # 0.0 Basophils % 0.9 Blood Urea Nitrogen 45 H Calcium Level 7.6 L Carbon Dioxide Level 24 Chloride Level 107 Creatinine 2.56 H Eosinophils # 0.2 Eosinophils % 4.6 Glucose Level 86 Hematocrit 35.7 L Hemoglobin 11.2 L Lymphocytes # 1.1 Lymphocytes % 33.1 Mean Corpuscular Hemoglobin 29.9 Mean Corpuscular Hemoglobin Concent 31.4 L Mean Corpuscular Volume 95.5 Mean Platelet Volume 10.3 Monocytes # 0.3 Monocytes % 9.4 Neutrophils # 1.7 Neutrophils % 52.0 Nucleated Red Blood Cells # 0.0 Nucleated Red Blood Cells % 0.0 Platelet Count 145 Potassium Level 4.6 Red Blood Count 3.74 L Red Cell Distribution Width 18.9 H Sodium Level 140 White Blood Count 3.3 L Test 08/10/16 17:30 Bedside Glucose 166 Medications Medications Current Medications Bumetanide (Bumex) 1 mg DAILY PO Last administered on 08/10/16 08:20; Admin Dose 1 MG; Start 08/07/16 at 09:00 Carvedilol (Coreg) 6.25 mg BID PO Last administered on 08/10/16 08:22; Admin Dose 6.25 MG; Start 08/06/16 at 21:00 Ferrous Sulfate (Ferrous Sulfate (Ec)) 325 mg BID PO Last administered on 08:21; Admin Dose 325 MG; Start 08/06/16 at 21:00 Finasteride (Proscar) 5 mg DAILY PO Last administered on 08/10/16 08:23; Admin Dose 5 MG; Start 08/07/16 at 09:00 Lactobacillus Acidoph/Bulgaricus (Floranex) 1 tab TID PO Last administered on 12:19; Admin Dose 1 TAB; Start 08/06/16 at 21:00 Pantoprazole (Protonix Tab) 40 mg DAILY PO Last administered on 08/10/16 08:22 ; Admin Dose 40 MG; Start 08/07/16 at 09:00 Rifampin (Rifampin) 600 mg DAILY PO Last administered on 08/10/16 08:21; Admin Dose 600 MG; Start 08/07/16 at 09:00 Simethicone (Mylicon) 80 mg Q6H PRN GTB DISTENSION/GAS/BLOATING; Start at 17:30 Tamsulosin HCl (Flomax) 0.4 mg QHS PO Last administered on 08/09/16 21:10; Admin Dose 0.4 MG; Start 08/06/16 at 21:00 Ondansetron HCl (Zofran Inj) 4 mg Q6H PRN IV NAUSEA AND/OR VOMITING Last administered on 08/10/16 08:15; Admin Dose 4 MG; Start 08/06/16 at 17:30 Acetaminophen (Tylenol Tab) 650 mg Q6H PRN PO PAIN LEVEL 1-3 OR FEVER; Start at 17:30 Acetaminophen (Tylenol Supp) 650 mg Q6H PRN [place] PAIN LEVEL 1-3 OR FEVER; Start 08/06/16 at 17:30 Acetaminophen/ Hydrocodone Bitart ([place] (5/325)) 1 tab Q6H PRN PO MODERATE PAIN LEVEL 4-6; Start 08/06/16 at 17:30 Acetaminophen/ Hydrocodone Bitart ([place] (5/325)) 2 tab Q6H PRN PO SEVERE PAIN LEVEL 7-10 Last administered on 08/09/16 15:27; Admin Dose 2 TAB; Start at 17:30 Morphine Sulfate (morphine) 2 mg Q4H PRN IV SEVERE PAIN LEVEL 7-10 Last administered on 08/10/16 15:56; Admin Dose 2 MG; Start 08/06/16 at 17:30 Docusate Sodium (Colace) 100 mg Q12H PRN PO CONSTIPATION; Start 08/06/16 at 17: 30 Magnesium Hydroxide (Milk Of Mag) 30 ml DAILY PRN PO CONSTIPATION; Start at 17:30 Bisacodyl (Dulcolax Supp) 10 mg DAILY PRN [place] CONSTIPATION; Start 08/06/16 at 17 :30 Heparin Sodium (Porcine) (Heparin (5000 Units/0.5 ml)) 5,000 unit Q12 SC Last administered on 08/10/16 08:20; Admin Dose 5,000 UNIT; Start 08/06/16 at 21:00 Diagnostic Test (Pha) (Accucheck) 1 ea 02 XX Last administered on 08/09/16 02: 24; Admin Dose 1 EA; Start 08/07/16 at 02:00 Hydralazine HCl (Apresoline) 10 mg Q6H PRN IV SBP>170 Last administered on 08/10 08:02; Admin Dose 10 MG; Start 08/06/16 at 17:30 Miscellaneous Information 1 ea NOTE XX ; Start 08/06/16 at 17:30 Glucose (Glutose) 15 gm Q15M PRN PO DECREASED GLUCOSE; Start 08/06/16 at 17:30 Glucose (Glutose) 22.5 gm Q15M PRN PO DECREASED GLUCOSE; Start 08/06/16 at 17: 30 Dextrose (D50w Syringe) 25 ml Q15M PRN IV DECREASED GLUCOSE; Start 08/06/16 at 17:30 Dextrose (D50w Syringe) 50 ml Q15M PRN IV DECREASED GLUCOSE; Start 08/06/16 at 17:30 Glucagon (Glucagen) 1 mg Q15M PRN IM DECREASED GLUCOSE; Start 08/06/16 at 17:30 Glucose (Glutose) 15 gm Q15M PRN BUCCAL DECREASED GLUCOSE; Start 08/06/16 at 17 :30 Vancomycin HCl PER PHARMACY DOSING NOTE XX ; Start 08/06/16 at 22:00 Vancomycin HCl (Vancocin) 100 ml @ 100 mls/hr Q48H IVPB Last administered on 20:39; Admin Dose 100 MLS/HR; Start 08/08/16 at 22:00 Levothyroxine Sodium (Synthroid) 50 mcg DAILY@06 PO Last administered on 05:04; Admin Dose 50 MCG; Start 08/08/16 at 06:00 Hydralazine HCl (Apresoline) 100 mg TID PO Last administered on 08/10/16 12:19 ; Admin Dose 100 MG; Start 08/07/16 at 21:00 Isosorbide Dinitrate (Isordil) 20 mg TID PO Last administered on 08/10/16 12: 19; Admin Dose 20 MG; Start 08/07/16 at 21:00 Neomycin/ Polymyxin/ Hydrocortisone (Cortisporin Otic Susp) 4 drop TID BOTH EARS Last administered on 08/10/16 12:19; Admin Dose 4 DROP; Start 08/07/16 at 23:30; Stop 08/14/16 at 23:29 Nifedipine 30 mg 30 mg DAILY PO Last administered on 08/10/16 08:21; Admin Dose 30 MG; Start 08/08/16 at 14:30 Cefepime HCl (Maxipime 1gm/50 ml (Pmx)) 50 ml @ 100 mls/hr Q24H IVPB Last administered on 08/10/16 17:34; Admin Dose 100 MLS/HR; Start 08/09/16 at 18:00 Fluconazole (Diflucan) 100 mg DAILY PO Last administered on 08/10/16 08:23; Admin Dose 100 MG; Start 08/09/16 at 16:00 Miscellaneous Information (*Rx Drug Level Order Reminder*) VANCOMYCIN TROUGH AT 2100 ONCE ONCE XX ; Start 08/10/16 at 21:00; Stop 08/10/16 at 21:01 JOSE GUILLAUME MD Aug 10, 2016 19:19
[2016-08-10] MEDS: TAMSULOSIN (SR) 0.4 MG CAP PO SCH (21:09)
[2016-08-10] MEDS: VANCOMYCIN 500MG/NS (PMX) 100 ML IVPB SCH (22:30)
[2016-08-11] VITALS (13 sets, daily range): BP systolic 157–196; BP diastolic 84–98; PULSE 61–65; RESP 16–18
[2016-08-11] MEDS: ACCU-CHEK XX SCH (02:00)
[2016-08-11] MEDS: morphine 2 MG INJ IV PRN ×4 (02:56→16:48)
[2016-08-11] MEDS: ONDANSETRON 4 MG INJ IV PRN ×3 (02:56→23:32)
[2016-08-11] MEDS: LEVOTHYROXINE 50 MCG TAB PO SCH (05:34)
[2016-08-11 06:57] LABS: ADD SCAN DIFF NO
[2016-08-11 07:13] LABS: POTASSIUM 4.4 mmol/L (3.5-5.1)
[2016-08-11 07:15] LABS: CREATININE 2.41 mg/dl (0.61-1.24)
[2016-08-11 07:16] LABS: CALCIUM 7.5 mg/dl (8.4-10.2)
[2016-08-11 07:18] LABS: BASOPHILS % 1.2 % (0.0-2.0); EOSINOPHILS # 0.1 10^3/ul (0.0-0.5); EOSINOPHILS % 5.6 % (0.0-7.0); HEMATOCRIT 32.7 % (42.0-52.0); HEMOGLOBIN 10.8 g/dl (14.0-18.0); LYMPHOCYTES # 0.9 10^3/ul (0.8-2.9); LYMPHOCYTES % 37.2 % (15.0-51.0); MEAN PLATELET VOLUME 10.1 fl (7.4-10.4); MONOCYTE # 0.3 10^3/ul (0.3-0.9); MONOCYTES % 11.6 % (0.0-11.0); NEUTROPHIL # 1.1 10^3/ul (1.6-7.5); NEUTROPHILS % 44.4 % (39.0-77.0); PLATELET COUNT 146 10^3/UL (140-415); RED BLOOD COUNT 3.48 10^6/ul (4.70-6.10); RED CELL DISTRIBUTION WIDTH 18.5 % (11.5-14.5); WHITE BLOOD COUNT 2.5 10^3/ul (4.8-10.8)
[2016-08-11] MEDS: INSULIN ASPART [NOVOLOG] 3 ML PEN SC SCH ×4 (08:00→20:31)
[2016-08-11] MEDS: PANTOPRAZOLE (EC) 40 MG TAB PO SCH (08:13)
[2016-08-11] MEDS: BUMETANIDE 1 MG TAB PO SCH (08:14)
[2016-08-11] MEDS: FLUCONAZOLE 100 MG TAB PO SCH (08:15)
[2016-08-11] MEDS: RIFAMPIN 300 MG CAP PO SCH (08:15)
[2016-08-11] MEDS: LACTOBACILLUS CHEW TAB PO SCH ×3 (08:16→20:35)
[2016-08-11] MEDS: FERROUS SULFATE (EC) 325 MG TAB PO SCH ×2 (08:16→20:36)
[2016-08-11] MEDS: FINASTERIDE 5 MG TAB PO SCH (08:16)
[2016-08-11] MEDS: ISOSORBIDE DINITRATE 20 MG TAB PO SCH ×3 (08:17→20:36)
[2016-08-11] MEDS: NIFEdipine (XL) 30 MG TAB PO SCH ×2 (08:18→20:36)
[2016-08-11] MEDS: NEOMYC/POLYMYX/HC 10 ML OTIC SUSP BOTH EARS SCH ×3 (08:18→20:38)
[2016-08-11] MEDS: HEPARIN 5,000 UNIT/0.5 ML SYG SC SCH ×2 (08:21→20:37)
[2016-08-11] MEDS: hydrALAzine 20 MG INJ IV PRN ×2 (12:02→23:38)
--- NOTE | 2016-08-11 13:25 | CONS ---
Date/Time of Note Date/Time of Note DATE: 08/11/16 TIME: 13:24 Assessment/Plan Assessment/Plan Chief Complaint/Hosp Course SUBJECTIVE: No events. No fevers. Sleeping, looks comfortable ANTIMICROBIALS: Vancomycin, Cefepime, Diflucan DIAGNOSTICS: Facial CT on admission revealed left partial middle ear and extensive mastoid opacification with associated effusions compatible with otomastoiditis. Bilateral maxillary sinus mucosal thickening and mild bilateral anterior ethmoid air cell mucosal thickening are also seen. INDWELLINGS: The patient has PICC line. PHYSICAL EXAMINATION: GENERAL: This is a well-developed middle-aged man who is awake, in no distress. HEENT: Head atraumatic, normocephalic. Sclerae anicteric. Buccal mucosa pink. NECK: Supple. CHEST: Rise symmetrical. Breath sounds clear. HEART: S1, S2. ABDOMEN: Soft. Bowel tones present. EXTREMITIES: No cyanosis. ASSESSMENT: 1. Left otomastoiditis, sinusitis. 2. Methicillin-resistant Staphylococcus aureus spinal abscess, status post decompressive laminectomy with evacuation of abscess done on 07/12/2016. 3. Chronic kidney disease with urinary retention. 4. Diabetes. 5. Hypertension. 6. UTI==> Enterobacter/yeast PLAN: The patient is stable. Continue abx, continue IV vancomycin until . Continue otic gtts per ENT. Follow recommendations of consultants. DW staff Problems: Consultation Date/Type/Reason Admit Date/Time Aug 06, 2016 at 15:13 Type of Consultation: ID Referring Provider: JUDSON TREVINO Exam/Review of Systems Vital Signs Vitals Vital Signs Date Time Temp Pulse Resp B/P Pulse Ox O2 Delivery O2 Flow Rate FiO2 08/11/16 13:01 159/86 08/11/16 12:28 97.5 64 16 95 08/07/16 08:15 Nasal Cannula Intake and Output 08/10/16 08/10/16 08/11/16 14:59 22:59 06:59 Intake Total 770 ml 500 ml Output Total 1000 ml 1100 ml Balance -230 ml -600 ml Results Result Diagram: 08/11/16 0645 08/11/16 0645 Results 24 hrs Laboratory Tests Test 08/10/16 17:30 08/10/16 20:52 08/10/16 21:05 08/11/16 06:45 Bedside Glucose 166 152 Vancomycin Level Trough 10.9 Anion Gap 14 Basophils # 0.0 Basophils % 1.2 Blood Urea Nitrogen 43 H Calcium Level 7.5 L Carbon Dioxide Level 24 Chloride Level 106 Creatinine 2.41 H Eosinophils # 0.1 Eosinophils % 5.6 Glucose Level 119 Hematocrit 32.7 L Hemoglobin 10.8 L Lymphocytes # 0.9 Lymphocytes % 37.2 Mean Corpuscular Hemoglobin 31.0 Mean Corpuscular Hemoglobin Concent 33.0 Mean Corpuscular Volume 94.0 Mean Platelet Volume 10.1 Monocytes # 0.3 Monocytes % 11.6 H Neutrophils # 1.1 L Neutrophils % 44.4 Nucleated Red Blood Cells # 0.0 Nucleated Red Blood Cells % 0.0 Platelet Count 146 Potassium Level 4.4 Red Blood Count 3.48 L Red Cell Distribution Width 18.5 H Sodium Level 140 White Blood Count 2.5 #L Test 08/11/16 07:48 08/11/16 11:32 Bedside Glucose 129 140 Medications Medications Current Medications Bumetanide (Bumex) 1 mg DAILY PO Last administered on 08/11/16 08:14; Admin Dose 1 MG; Start 08/07/16 at 09:00 Carvedilol (Coreg) 6.25 mg BID PO Last administered on 08/11/16 08:14; Admin Dose 6.25 MG; Start 08/06/16 at 21:00 Ferrous Sulfate (Ferrous Sulfate (Ec)) 325 mg BID PO Last administered on 08:16; Admin Dose 325 MG; Start 08/06/16 at 21:00 Finasteride (Proscar) 5 mg DAILY PO Last administered on 08/11/16 08:16; Admin Dose 5 MG; Start 08/07/16 at 09:00 Lactobacillus Acidoph/Bulgaricus (Floranex) 1 tab TID PO Last administered on 12:08; Admin Dose 1 TAB; Start 08/06/16 at 21:00 Pantoprazole (Protonix Tab) 40 mg DAILY PO Last administered on 08/11/16 08:13 ; Admin Dose 40 MG; Start 08/07/16 at 09:00 Rifampin (Rifampin) 600 mg DAILY PO Last administered on 08/11/16 08:15; Admin Dose 600 MG; Start 08/07/16 at 09:00 Simethicone (Mylicon) 80 mg Q6H PRN GTB DISTENSION/GAS/BLOATING; Start at 17:30 Tamsulosin HCl (Flomax) 0.4 mg QHS PO Last administered on 08/10/16 21:09; Admin Dose 0.4 MG; Start 08/06/16 at 21:00 Ondansetron HCl (Zofran Inj) 4 mg Q6H PRN IV NAUSEA AND/OR VOMITING Last administered on 08/11/16 02:56; Admin Dose 4 MG; Start 08/06/16 at 17:30 Acetaminophen (Tylenol Tab) 650 mg Q6H PRN PO PAIN LEVEL 1-3 OR FEVER; Start at 17:30 Acetaminophen (Tylenol Supp) 650 mg Q6H PRN [place] PAIN LEVEL 1-3 OR FEVER; Start 08/06/16 at 17:30 Acetaminophen/ Hydrocodone Bitart ([place] (5/325)) 1 tab Q6H PRN PO MODERATE PAIN LEVEL 4-6 Last administered on 08/10/16 21:14; Admin Dose 1 TAB; Start at 17:30 Acetaminophen/ Hydrocodone Bitart ([place] (5/325)) 2 tab Q6H PRN PO SEVERE PAIN LEVEL 7-10 Last administered on 08/09/16 15:27; Admin Dose 2 TAB; Start at 17:30 Morphine Sulfate (morphine) 2 mg Q4H PRN IV SEVERE PAIN LEVEL 7-10 Last administered on 08/11/16 12:02; Admin Dose 2 MG; Start 08/06/16 at 17:30 Docusate Sodium (Colace) 100 mg Q12H PRN PO CONSTIPATION; Start 08/06/16 at 17: 30 Magnesium Hydroxide (Milk Of Mag) 30 ml DAILY PRN PO CONSTIPATION; Start at 17:30 Bisacodyl (Dulcolax Supp) 10 mg DAILY PRN [place] CONSTIPATION; Start 08/06/16 at 17 :30 Heparin Sodium (Porcine) (Heparin (5000 Units/0.5 ml)) 5,000 unit Q12 SC Last administered on 08/11/16 08:21; Admin Dose 5,000 UNIT; Start 08/06/16 at 21:00 Diagnostic Test (Pha) (Accucheck) 1 ea 02 XX Last administered on 08/09/16 02: 24; Admin Dose 1 EA; Start 08/07/16 at 02:00 Hydralazine HCl (Apresoline) 10 mg Q6H PRN IV SBP>170 Last administered on 08/11 12:02; Admin Dose 10 MG; Start 08/06/16 at 17:30 Miscellaneous Information 1 ea NOTE XX ; Start 08/06/16 at 17:30 Glucose (Glutose) 15 gm Q15M PRN PO DECREASED GLUCOSE; Start 08/06/16 at 17:30 Glucose (Glutose) 22.5 gm Q15M PRN PO DECREASED GLUCOSE; Start 08/06/16 at 17: 30 Dextrose (D50w Syringe) 25 ml Q15M PRN IV DECREASED GLUCOSE; Start 08/06/16 at 17:30 Dextrose (D50w Syringe) 50 ml Q15M PRN IV DECREASED GLUCOSE; Start 08/06/16 at 17:30 Glucagon (Glucagen) 1 mg Q15M PRN IM DECREASED GLUCOSE; Start 08/06/16 at 17:30 Glucose (Glutose) 15 gm Q15M PRN BUCCAL DECREASED GLUCOSE; Start 08/06/16 at 17 :30 Vancomycin HCl PER PHARMACY DOSING NOTE XX ; Start 08/06/16 at 22:00 Vancomycin HCl (Vancocin) 100 ml @ 100 mls/hr Q48H IVPB Last administered on 22:30; Admin Dose 100 MLS/HR; Start 08/08/16 at 22:00 Levothyroxine Sodium (Synthroid) 50 mcg DAILY@06 PO Last administered on 05:34; Admin Dose 50 MCG; Start 08/08/16 at 06:00 Hydralazine HCl (Apresoline) 100 mg TID PO Last administered on 08/11/16 08:17 ; Admin Dose 100 MG; Start 08/07/16 at 21:00 Isosorbide Dinitrate (Isordil) 20 mg TID PO Last administered on 08/11/16 12: 08; Admin Dose 20 MG; Start 08/07/16 at 21:00 Neomycin/ Polymyxin/ Hydrocortisone (Cortisporin Otic Susp) 4 drop TID BOTH EARS Last administered on 08/11/16 12:02; Admin Dose 4 DROP; Start 08/07/16 at 23:30; Stop 08/14/16 at 23:29 Nifedipine 30 mg 30 mg DAILY PO Last administered on 08/11/16 08:18; Admin Dose 30 MG; Start 08/08/16 at 14:30 Cefepime HCl (Maxipime 1gm/50 ml (Pmx)) 50 ml @ 100 mls/hr Q24H IVPB Last administered on 08/10/16 17:34; Admin Dose 100 MLS/HR; Start 08/09/16 at 18:00 Fluconazole (Diflucan) 100 mg DAILY PO Last administered on 08/11/16 08:15; Admin Dose 100 MG; Start 08/09/16 at 16:00 DORENE GARCIA NP Aug 11, 2016 13:24
--- NOTE | 2016-08-11 15:28 | PN ---
DATE: 08/11/2016 TIME EVALUATION: 1330. SUBJECTIVE DATA: Denies any dyspnea. Complains of generalized pain. The patient remains afebrile. OBJECTIVE DATA: VITAL SIGNS: Temperature 97.5, pulse rate 64, respiratory rate 169/86, oxygen saturation 95% on room air. GENERAL: This is a frail-looking male sitting in bed in no apparent distress. HEENT: Head normocephalic and atraumatic. Eyes: Anicteric sclerae. Conjunctivae clear. ENT: Nasal septum is midline. Oral mucosa is moist. NECK: Supple. No JVD noticed. RESPIRATORY: Bilaterally clear to auscultation. No adventitious breath sounds heard. No use of accessory muscles for respiration. CARDIAC: Regular rate and rhythm. No obvious murmurs heard. ABDOMEN: Soft, nontender and nondistended. Bowel sounds positive in all 4 quadrants. GENITOURINARY: The patient has a Cox catheter in place. BACK: Gabi from spinal surgery in the lumbosacral area. No evidence of infection. EXTREMITIES: No cyanosis. No clubbing. Bilateral lower extremity 2+ pitting edema. Peripheral pulses on bilateral lower extremities, diminished. NEUROLOGIC: The patient is awake, alert and oriented. Cranial nerves are grossly intact. LABORATORY AND DIAGNOSTIC DATA: WBC 2.5, hemoglobin 10.8, hematocrit 32.1, platelet count 146. Sodium 140, potassium 4.4, chloride 106, carbon dioxide 25 , anion gap 14, BUN 43, creatinine 2.41, glucose 119, calcium 7.5. ASSESSMENT AND PLAN: 1. Sepsis secondary to underlying urinary tract infection. No evidence of any septic shock. Continue antibiotics as per Infectious Diseases. 2. Urinary tract infection. Urine culture positive for Enterobacter aerogenes and Katharina glabrata. Continue antimicrobials as per infectious diseases. 3. Accelerated hypertension. On antihypertensives. Continue antihypertensives to obtain optimal blood pressure control. 4. Elevated troponins. Was probably a type 2 event. Nuclear medicine cardiac stress test on 08/09/2006 showed no evidence of any stress-induced myocardial ischemia. 5. Acute on chronic kidney disease. Avoid nephrotoxic medications, Nephrology following. 6. Recent spinal abscess with MRSA. Status post surgery on 07/12/2016. 7. Benign prostatic hypertrophy. Continue medications. 8. Normocytic normochromic anemia. Monitor H and H closely. Continue iron supplements. 9. Left middle ear extension mastoid opacification with associated diffusions compatible with otomastoiditis. Continue antibiotic drops as per ENT. Continue systemic antibiotics as per Infectious Diseases. 10. Fluid, electrolytes and nutrition. Carbohydrate controlled diet. 11. Deep venous thrombosis prophylaxis. bilateral sequential compression devices. 12. Gastrointestinal prophylaxis. Proton pump inhibitors. 13. Plan. Continue antimicrobials as per infectious diseases. Continue in- house monitoring. The case was discussed with Dr. Solo. YONIS SOLO MD, AM/ERICKA Conf#: [id number] DID#: [id number] MTDD
[2016-08-11] MEDS ORDERED: HYDROmorphONE 1 MG/ML SYG IV STA (16:52)
--- NOTE | 2016-08-11 17:29 | CONS ---
Date/Time of Note Date/Time of Note DATE: 08/11/16 TIME: 17:25 Assessment/Plan Assessment/Plan Chief Complaint/Hosp Course IMPRESSION: 1. Positive troponin at outside hospital in the setting of renal failure, assess significance with a preserved ejection fraction by echo 02/2016-.All troponin negative here at [facility]. Lexciscan with NL EF and no ischemia 2. Hypertension, still moderately uncontrolled 3. Possible congestive heart failure, volume overload. 4. Back pain with history of spinal abscess. 5. Benign prostatic hypertrophy. 6. Headache. 7. Diabetes mellitus. REcc: -Tele -serial ecg;'s -Continue coreg -Continue hydralazine and increase procardia XL to improve BP control -Continue abx's and f/u cx data -Follow volume status closely Problems: Consultation Date/Type/Reason Admit Date/Time Aug 06, 2016 at 15:13 Initial Consult Date 08/06/16 Type of Consultation: Cardiology Reason for Consultation positive troponin Referring Provider: JUDSON TREVINO Exam/Review of Systems Vital Signs Vitals Vital Signs Date Time Temp Pulse Resp B/P Pulse Ox O2 Delivery O2 Flow Rate FiO2 08/11/16 16:32 65 08/11/16 15:41 97.7 16 157/84 96 08/07/16 08:15 Nasal Cannula Intake and Output 08/10/16 08/10/16 08/11/16 15:00 23:00 07:00 Intake Total 770 ml 500 ml Output Total 1000 ml 1100 ml Balance -230 ml -600 ml Exam Review of Systems: CONSTITUTIONAL: No fevers, chills. PULMONARY: No sob CARDIOVASCULAR: No chest pain/palpitations GASTROINTESTINAL: No nausea/vomiting. GENITOURINARY: No hematuria/dysuria. MUSCULOSKELETAL: No myagias/arthalgias. PSYCHIATRIC: The patient denies depression. NEUROLOGIC: C/O headache Constitutional: alert Psych: no complaints Head: normocephalic ENMT: mucosa pink and moist Neck: jvd (9 cm water), supple Respiratory: diminished breath sounds (at bases/B) Cardiovascular: regular rate and rhythm Gastrointestinal: non-tender, soft Musculoskeletal: muscle tone (normal) Extremities: edema (none) Neurological: lethargic Results Result Diagram: 08/11/16 0645 08/11/16 0645 Results 24 hrs Laboratory Tests Test 08/10/16 17:30 08/10/16 20:52 08/10/16 21:05 08/11/16 06:45 Bedside Glucose 166 152 Vancomycin Level Trough 10.9 Anion Gap 14 Basophils # 0.0 Basophils % 1.2 Blood Urea Nitrogen 43 H Calcium Level 7.5 L Carbon Dioxide Level 24 Chloride Level 106 Creatinine 2.41 H Eosinophils # 0.1 Eosinophils % 5.6 Glucose Level 119 Hematocrit 32.7 L Hemoglobin 10.8 L Lymphocytes # 0.9 Lymphocytes % 37.2 Mean Corpuscular Hemoglobin 31.0 Mean Corpuscular Hemoglobin Concent 33.0 Mean Corpuscular Volume 94.0 Mean Platelet Volume 10.1 Monocytes # 0.3 Monocytes % 11.6 H Neutrophils # 1.1 L Neutrophils % 44.4 Nucleated Red Blood Cells # 0.0 Nucleated Red Blood Cells % 0.0 Platelet Count 146 Potassium Level 4.4 Red Blood Count 3.48 L Red Cell Distribution Width 18.5 H Sodium Level 140 White Blood Count 2.5 #L Test 08/11/16 07:48 08/11/16 11:32 Bedside Glucose 129 140 Medications Medications Current Medications Bumetanide (Bumex) 1 mg DAILY PO Last administered on 08/11/16 08:14; Admin Dose 1 MG; Start 08/07/16 at 09:00 Carvedilol (Coreg) 6.25 mg BID PO Last administered on 08/11/16 08:14; Admin Dose 6.25 MG; Start 08/06/16 at 21:00 Ferrous Sulfate (Ferrous Sulfate (Ec)) 325 mg BID PO Last administered on 08:16; Admin Dose 325 MG; Start 08/06/16 at 21:00 Finasteride (Proscar) 5 mg DAILY PO Last administered on 08/11/16 08:16; Admin Dose 5 MG; Start 08/07/16 at 09:00 Lactobacillus Acidoph/Bulgaricus (Floranex) 1 tab TID PO Last administered on 12:08; Admin Dose 1 TAB; Start 08/06/16 at 21:00 Pantoprazole (Protonix Tab) 40 mg DAILY PO Last administered on 08/11/16 08:13 ; Admin Dose 40 MG; Start 08/07/16 at 09:00 Rifampin (Rifampin) 600 mg DAILY PO Last administered on 08/11/16 08:15; Admin Dose 600 MG; Start 08/07/16 at 09:00 Simethicone (Mylicon) 80 mg Q6H PRN GTB DISTENSION/GAS/BLOATING; Start at 17:30 Tamsulosin HCl (Flomax) 0.4 mg QHS PO Last administered on 08/10/16 21:09; Admin Dose 0.4 MG; Start 08/06/16 at 21:00 Ondansetron HCl (Zofran Inj) 4 mg Q6H PRN IV NAUSEA AND/OR VOMITING Last administered on 08/11/16 16:47; Admin Dose 4 MG; Start 08/06/16 at 17:30 Acetaminophen (Tylenol Tab) 650 mg Q6H PRN PO PAIN LEVEL 1-3 OR FEVER; Start at 17:30 Acetaminophen (Tylenol Supp) 650 mg Q6H PRN DE PAIN LEVEL 1-3 OR FEVER; Start 08/06/16 at 17:30 Acetaminophen/ Hydrocodone Bitart ([place] (5/325)) 1 tab Q6H PRN PO MODERATE PAIN LEVEL 4-6 Last administered on 08/10/16 21:14; Admin Dose 1 TAB; Start at 17:30 Acetaminophen/ Hydrocodone Bitart ([place] (5/325)) 2 tab Q6H PRN PO SEVERE PAIN LEVEL 7-10 Last administered on 08/09/16 15:27; Admin Dose 2 TAB; Start at 17:30 Morphine Sulfate (morphine) 2 mg Q4H PRN IV SEVERE PAIN LEVEL 7-10 Last administered on 08/11/16 16:48; Admin Dose 2 MG; Start 08/06/16 at 17:30 Docusate Sodium (Colace) 100 mg Q12H PRN PO CONSTIPATION; Start 08/06/16 at 17: 30 Magnesium Hydroxide (Milk Of Mag) 30 ml DAILY PRN PO CONSTIPATION; Start at 17:30 Bisacodyl (Dulcolax Supp) 10 mg DAILY PRN DE CONSTIPATION; Start 08/06/16 at 17 :30 Heparin Sodium (Porcine) (Heparin (5000 Units/0.5 ml)) 5,000 unit Q12 SC Last administered on 08/11/16 08:21; Admin Dose 5,000 UNIT; Start 08/06/16 at 21:00 Diagnostic Test (Pha) (Accucheck) 1 ea 02 XX Last administered on 08/09/16 02: 24; Admin Dose 1 EA; Start 08/07/16 at 02:00 Hydralazine HCl (Apresoline) 10 mg Q6H PRN IV SBP>170 Last administered on 08/11 12:02; Admin Dose 10 MG; Start 08/06/16 at 17:30 Miscellaneous Information 1 ea NOTE XX ; Start 08/06/16 at 17:30 Glucose (Glutose) 15 gm Q15M PRN PO DECREASED GLUCOSE; Start 08/06/16 at 17:30 Glucose (Glutose) 22.5 gm Q15M PRN PO DECREASED GLUCOSE; Start 08/06/16 at 17: 30 Dextrose (D50w Syringe) 25 ml Q15M PRN IV DECREASED GLUCOSE; Start 08/06/16 at 17:30 Dextrose (D50w Syringe) 50 ml Q15M PRN IV DECREASED GLUCOSE; Start 08/06/16 at 17:30 Glucagon (Glucagen) 1 mg Q15M PRN IM DECREASED GLUCOSE; Start 08/06/16 at 17:30 Glucose (Glutose) 15 gm Q15M PRN BUCCAL DECREASED GLUCOSE; Start 08/06/16 at 17 :30 Vancomycin HCl PER PHARMACY DOSING NOTE XX ; Start 08/06/16 at 22:00 Vancomycin HCl (Vancocin) 100 ml @ 100 mls/hr Q48H IVPB Last administered on 22:30; Admin Dose 100 MLS/HR; Start 08/08/16 at 22:00 Levothyroxine Sodium (Synthroid) 50 mcg DAILY@06 PO Last administered on 05:34; Admin Dose 50 MCG; Start 08/08/16 at 06:00 Hydralazine HCl (Apresoline) 100 mg TID PO Last administered on 08/11/16 08:17 ; Admin Dose 100 MG; Start 08/07/16 at 21:00 Isosorbide Dinitrate (Isordil) 20 mg TID PO Last administered on 08/11/16 12: 08; Admin Dose 20 MG; Start 08/07/16 at 21:00 Neomycin/ Polymyxin/ Hydrocortisone (Cortisporin Otic Susp) 4 drop TID BOTH EARS Last administered on 08/11/16 12:02; Admin Dose 4 DROP; Start 08/07/16 at 23:30; Stop 08/14/16 at 23:29 Nifedipine 30 mg 30 mg DAILY PO Last administered on 08/11/16 08:18; Admin Dose 30 MG; Start 08/08/16 at 14:30 Cefepime HCl (Maxipime 1gm/50 ml (Pmx)) 50 ml @ 100 mls/hr Q24H IVPB Last administered on 08/10/16 17:34; Admin Dose 100 MLS/HR; Start 08/09/16 at 18:00 Fluconazole (Diflucan) 100 mg DAILY PO Last administered on 08/11/16 08:15; Admin Dose 100 MG; Start 08/09/16 at 16:00 TRIP DE LEON 20, 2017 17:29
[2016-08-11 17:31] LABS: HEMATOCRIT 32.1 % (42.0-52.0); HEMOGLOBIN 10.6 g/dl (14.0-18.0)
[2016-08-11] MEDS: CEFEPIME 1GM/50 ML (PMX) 50 ML IVPB SCH (17:43)
[2016-08-11] MEDS: TAMSULOSIN (SR) 0.4 MG CAP PO SCH (20:35)
[2016-08-12] VITALS (13 sets, daily range): BP systolic 161–181; BP diastolic 83–91; PULSE 63–72; RESP 17–20
[2016-08-12] MEDS: ACCU-CHEK XX SCH (01:20)
[2016-08-12] MEDS: LEVOTHYROXINE 50 MCG TAB PO SCH (04:34)
[2016-08-12] MEDS: morphine 2 MG INJ IV PRN ×5 (06:08→23:41)
[2016-08-12] MEDS: ONDANSETRON 4 MG INJ IV PRN ×4 (06:09→23:40)
[2016-08-12 07:44] LABS: ADD SCAN DIFF NO
[2016-08-12 07:52] LABS: EOSINOPHILS # 0.2 10^3/ul (0.0-0.5); EOSINOPHILS % 7.3 % (0.0-7.0); HEMATOCRIT 35.6 % (42.0-52.0); HEMOGLOBIN 11.3 g/dl (14.0-18.0); LYMPHOCYTES # 0.7 10^3/ul (0.8-2.9); LYMPHOCYTES % 24.5 % (15.0-51.0); MEAN CORPUSCULAR HEMOGLOBIN 30.2 pg (29.0-33.0); MEAN CORPUSCULAR HGB CONC 31.7 g/dl (32.0-37.0); MEAN CORPUSCULAR VOLUME 95.2 fl (82.0-101.0); MEAN PLATELET VOLUME 10.5 fl (7.4-10.4); MONOCYTE # 0.3 10^3/ul (0.3-0.9); MONOCYTES % 10.3 % (0.0-11.0); NEUTROPHIL # 1.7 10^3/ul (1.6-7.5); NEUTROPHILS % 56.6 % (39.0-77.0); PLATELET COUNT 155 10^3/UL (140-415); RED BLOOD COUNT 3.74 10^6/ul (4.70-6.10); RED CELL DISTRIBUTION WIDTH 18.7 % (11.5-14.5)
[2016-08-12] MEDS: INSULIN ASPART [NOVOLOG] 3 ML PEN SC SCH ×4 (08:00→20:32)
[2016-08-12 08:11] LABS: POTASSIUM 4.5 mmol/L (3.5-5.1)
[2016-08-12 08:14] LABS: CREATININE 2.3 mg/dl (0.61-1.24)
[2016-08-12 08:15] LABS: CALCIUM 7.6 mg/dl (8.4-10.2)
[2016-08-12] MEDS: NEOMYC/POLYMYX/HC 10 ML OTIC SUSP BOTH EARS SCH ×3 (09:00→20:26)
--- NOTE | 2016-08-12 09:08 | CONS ---
Date/Time of Note Date/Time of Note DATE: 08/12/16 TIME: 09:07 Assessment/Plan Assessment/Plan Additional Assessment/Plan 1. Positive troponin at outside hospital in the setting of renal failure, assess significance with a preserved ejection fraction by echo 02/2016-.All troponin negative here at [facility] - Stress: No evidence of stress induced myocardial ischemia, Ejection fraction at stress is 55%.- no LHC needed - NO CP now 2. Hypertension, uncontrolled consistent with hypertensive urgency/emergency- BP high, did not get BP meds yet - BP still high - adjust Rxwith renal team 3. Possible congestive heart failure, volume overload- stable now - will optimize fluid status - better now 4. Back pain with history of spinal abscess- anti-bx as needed 5. Benign prostatic hypertrophy. 6. Headache. 7. Diabetes mellitus- on meds - keep euglycemic Consultation Date/Type/Reason Admit Date/Time Aug 06, 2016 at 15:13 Type of Consultation: Cardiology Referring Provider: JUDSON TREVINO 24 HR Interval Summary Free Text/Dictation NO acute change - no significant ectopy on tele - Stress test NEGATIVE ISCHEMIA ROS: No fever, no chills, no nausea, no vomiting, no diarrhea/constipation No recent weight changes No chest pain, no PND, no orthopnea No dizziness, blurred vision No thirst, no heat or cold intolerance Exam/Review of Systems Vital Signs Vitals Vital Signs Date Time Temp Pulse Resp B/P Pulse Ox O2 Delivery O2 Flow Rate FiO2 08/12/16 08:22 97.9 68 17 174/85 94 Intake and Output 08/11/16 08/11/16 08/12/16 15:00 23:00 07:00 Intake Total 700 ml Output Total 1120 ml Balance -420 ml Exam General: WN/WD/NAD, AOx 3 HEENT: Unicetric/atraumatic/EOMI (follow commands) NECK: JVD elevated, no thyromegaly Lymph: no lymphadenopathy HEART: regular with no S3, II/ systolic murmur at apex LUNGS: Coarse sounds ABD: soft, NT, ND, +BS : Intact Neuro: non focal SKIN: chronic changes EXT: trace edema Results Result Diagram: 08/12/16 0637 08/12/16 0637 Results 24 hrs Laboratory Tests Test 08/11/16 11:32 08/11/16 17:23 08/11/16 17:29 08/11/16 20:30 Bedside Glucose 140 151 158 Hematocrit 32.1 L Hemoglobin 10.6 L Test 08/12/16 06:37 08/12/16 08:28 Anion Gap 16 Basophils # 0.0 Basophils % 1.0 Blood Urea Nitrogen 45 H Calcium Level 7.6 L Carbon Dioxide Level 22 Chloride Level 109 Creatinine 2.30 H Eosinophils # 0.2 Eosinophils % 7.3 H Glucose Level 104 Hematocrit 35.6 L Hemoglobin 11.3 L Lymphocytes # 0.7 L Lymphocytes % 24.5 Magnesium Level 2.2 Mean Corpuscular Hemoglobin 30.2 Mean Corpuscular Hemoglobin Concent 31.7 L Mean Corpuscular Volume 95.2 Mean Platelet Volume 10.5 H Monocytes # 0.3 Monocytes % 10.3 Neutrophils # 1.7 Neutrophils % 56.6 Nucleated Red Blood Cells # 0.0 Nucleated Red Blood Cells % 0.0 Platelet Count 155 Potassium Level 4.5 Red Blood Count 3.74 L Red Cell Distribution Width 18.7 H Sodium Level 142 White Blood Count 3.0 L Bedside Glucose 112 Medications Medications Current Medications Bumetanide (Bumex) 1 mg DAILY PO Last administered on 08/11/16 08:14; Admin Dose 1 MG; Start 08/07/16 at 09:00 Carvedilol (Coreg) 6.25 mg BID PO Last administered on 08/11/16 20:35; Admin Dose 6.25 MG; Start 08/06/16 at 21:00 Ferrous Sulfate (Ferrous Sulfate (Ec)) 325 mg BID PO Last administered on 20:36; Admin Dose 325 MG; Start 08/06/16 at 21:00 Finasteride (Proscar) 5 mg DAILY PO Last administered on 08/11/16 08:16; Admin Dose 5 MG; Start 08/07/16 at 09:00 Lactobacillus Acidoph/Bulgaricus (Floranex) 1 tab TID PO Last administered on 20:35; Admin Dose 1 TAB; Start 08/06/16 at 21:00 Pantoprazole (Protonix Tab) 40 mg DAILY PO Last administered on 08/11/16 08:13 ; Admin Dose 40 MG; Start 08/07/16 at 09:00 Rifampin (Rifampin) 600 mg DAILY PO Last administered on 08/11/16 08:15; Admin Dose 600 MG; Start 08/07/16 at 09:00 Simethicone (Mylicon) 80 mg Q6H PRN GTB DISTENSION/GAS/BLOATING; Start at 17:30 Tamsulosin HCl (Flomax) 0.4 mg QHS PO Last administered on 08/11/16 20:35; Admin Dose 0.4 MG; Start 08/06/16 at 21:00 Ondansetron HCl (Zofran Inj) 4 mg Q6H PRN IV NAUSEA AND/OR VOMITING Last administered on 08/12/16 06:09; Admin Dose 4 MG; Start 08/06/16 at 17:30 Acetaminophen (Tylenol Tab) 650 mg Q6H PRN PO PAIN LEVEL 1-3 OR FEVER; Start at 17:30 Acetaminophen (Tylenol Supp) 650 mg Q6H PRN [place] PAIN LEVEL 1-3 OR FEVER; Start 08/06/16 at 17:30 Acetaminophen/ Hydrocodone Bitart ([place] (5/325)) 1 tab Q6H PRN PO MODERATE PAIN LEVEL 4-6 Last administered on 08/10/16 21:14; Admin Dose 1 TAB; Start at 17:30 Acetaminophen/ Hydrocodone Bitart ([place] (5/325)) 2 tab Q6H PRN PO SEVERE PAIN LEVEL 7-10 Last administered on 08/09/16 15:27; Admin Dose 2 TAB; Start at 17:30 Morphine Sulfate (morphine) 2 mg Q4H PRN IV SEVERE PAIN LEVEL 7-10 Last administered on 08/12/16 06:08; Admin Dose 2 MG; Start 08/06/16 at 17:30 Docusate Sodium (Colace) 100 mg Q12H PRN PO CONSTIPATION; Start 08/06/16 at 17: 30 Magnesium Hydroxide (Milk Of Mag) 30 ml DAILY PRN PO CONSTIPATION; Start at 17:30 Bisacodyl (Dulcolax Supp) 10 mg DAILY PRN [place] CONSTIPATION; Start 08/06/16 at 17 :30 Heparin Sodium (Porcine) (Heparin (5000 Units/0.5 ml)) 5,000 unit Q12 SC Last administered on 08/11/16 20:37; Admin Dose 5,000 UNIT; Start 08/06/16 at 21:00 Diagnostic Test (Pha) (Accucheck) 1 ea 02 XX Last administered on 08/09/16 02: 24; Admin Dose 1 EA; Start 08/07/16 at 02:00 Hydralazine HCl (Apresoline) 10 mg Q6H PRN IV SBP>170 Last administered on 08/11 23:38; Admin Dose 10 MG; Start 08/06/16 at 17:30 Miscellaneous Information 1 ea NOTE XX ; Start 08/06/16 at 17:30 Glucose (Glutose) 15 gm Q15M PRN PO DECREASED GLUCOSE; Start 08/06/16 at 17:30 Glucose (Glutose) 22.5 gm Q15M PRN PO DECREASED GLUCOSE; Start 08/06/16 at 17: 30 Dextrose (D50w Syringe) 25 ml Q15M PRN IV DECREASED GLUCOSE; Start 08/06/16 at 17:30 Dextrose (D50w Syringe) 50 ml Q15M PRN IV DECREASED GLUCOSE; Start 08/06/16 at 17:30 Glucagon (Glucagen) 1 mg Q15M PRN IM DECREASED GLUCOSE; Start 08/06/16 at 17:30 Glucose (Glutose) 15 gm Q15M PRN BUCCAL DECREASED GLUCOSE; Start 08/06/16 at 17 :30 Vancomycin HCl PER PHARMACY DOSING NOTE XX ; Start 08/06/16 at 22:00 Vancomycin HCl (Vancocin) 100 ml @ 100 mls/hr Q48H IVPB Last administered on 22:30; Admin Dose 100 MLS/HR; Start 08/08/16 at 22:00 Levothyroxine Sodium (Synthroid) 50 mcg DAILY@06 PO Last administered on 05:34; Admin Dose 50 MCG; Start 08/08/16 at 06:00 Hydralazine HCl (Apresoline) 100 mg TID PO Last administered on 08/11/16 20:36 ; Admin Dose 100 MG; Start 08/07/16 at 21:00 Isosorbide Dinitrate (Isordil) 20 mg TID PO Last administered on 08/11/16 20: 36; Admin Dose 20 MG; Start 08/07/16 at 21:00 Neomycin/ Polymyxin/ Hydrocortisone 4 drop 4 drop TID BOTH EARS Last administered on 08/11/16 20:38; Admin Dose 4 DROP; Start 08/07/16 at 23:30; Stop 08/14/16 at 23:29 Cefepime HCl (Maxipime 1gm/50 ml (Pmx)) 50 ml @ 100 mls/hr Q24H IVPB Last administered on 08/11/16 17:43; Admin Dose 100 MLS/HR; Start 08/09/16 at 18:00 Fluconazole (Diflucan) 100 mg DAILY PO Last administered on 08/11/16 08:15; Admin Dose 100 MG; Start 08/09/16 at 16:00 Nifedipine (Procardia Xl) 30 mg BID PO Last administered on 08/11/16 20:36; Admin Dose 30 MG; Start 08/11/16 at 21:00 JOSE GUILLAUME MD Aug 12, 2016 09:08
[2016-08-12] MEDS: HEPARIN 5,000 UNIT/0.5 ML SYG SC SCH ×2 (10:18→20:32)
[2016-08-12] MEDS: FINASTERIDE 5 MG TAB PO SCH (10:21)
[2016-08-12] MEDS: RIFAMPIN 300 MG CAP PO SCH (10:21)
[2016-08-12] MEDS: NIFEdipine (XL) 30 MG TAB PO SCH ×2 (10:22→20:25)
[2016-08-12] MEDS: ISOSORBIDE DINITRATE 20 MG TAB PO SCH ×3 (10:22→20:25)
[2016-08-12] MEDS: BUMETANIDE 1 MG TAB PO SCH (10:22)
[2016-08-12] MEDS: FLUCONAZOLE 100 MG TAB PO SCH (10:23)
[2016-08-12] MEDS: LACTOBACILLUS CHEW TAB PO SCH ×3 (10:23→20:24)
[2016-08-12] MEDS: PANTOPRAZOLE (EC) 40 MG TAB PO SCH (10:23)
[2016-08-12] MEDS: FERROUS SULFATE (EC) 325 MG TAB PO SCH ×2 (10:23→20:25)
[2016-08-12] MEDS: MINOXIDIL 2.5 MG TAB PO SCH ×2 (10:33→20:25)
--- NOTE | 2016-08-12 14:52 | PN ---
DATE: 08/12/2016 SUBJECTIVE: Patient complaining of nausea. Also, had an emesis episodes yesterday. He is lying co mfortably in bed. Also, states that he does not have appetite. No fevers. LABORATORY: WBC 3. No shift, no bands. BUN 45, creatinine 2.30. MICROBIOLOGY: Urine culture on admission grew Enterobacter aeruginosa and Katharina glabrata. ANTIMICROBIALS: The patient is on: 1. Vancomycin. 2. Cefepime. 3. Fluconazole. INDWELLINGS: Cox, PICC. PHYSICAL EXAMINATION: GENERAL: Well-developed, middle-aged, man in no distress. HEENT: Head atraumatic, normocephalic. Sclerae anicteric. Buccal mucosa pink. NECK: Supple. CHEST: Rise symmetrical. Breath sounds clear. HEART: S1, S2. ABDOMEN: Soft. Bowel tones present. EXTREMITIES: No cyanosis. ASSESSMENT: 1. Left otomastoiditis. 2. Methicillin-resistant Staphylococcus aureus spinal abscess status post decompressive laminectomy on 07/12/2016. 3. Chronic kidney disease. 4. Diabetes. 5. Hypertension. 6. Urinary tract infection. PLAN: Remains stable now with nausea, possible secondary to diabetic gastroparesis. He is being fo llowed by multiple consultants. He is supposed to be on IV vancomycin until 09/07/2016. Continue pr esent care. Dictated By: DORENE GARCIA PHOTOGRAPHY MANAGER for PARDEEP VAZQUEZ MD NI/NTS Conf#: [id number] DID#: [id number]
--- NOTE | 2016-08-12 15:03 | PN ---
DATE: 08/12/2016 PRESENTING COMPLAINT: Persistent nausea and frontal headache limiting ability to eat or ambulate. PHYSICAL EXAMINATION VITAL SIGNS: Temperature ____, pulse 66, respirations 18, blood pressure 172/86, saturations 95% on nasal cannula at I believe 2 L a minute. GENERAL: Lethargic male, but alert, oriented, able to answer questions slowly, but appropriately. HEENT: Head normocephalic. Pupils are equal and reactive. Mucous membranes are moist. Posterior pharynx is clear of exudate. NECK: Supple. CHEST: Clear breath sounds. CARDIOVASCULAR: Heart sounds S1 and S2, no murmurs. ABDOMEN: Soft, nontender, nondistended with normoactive bowel sounds. EXTREMITIES: Lower extremity: The patient continues to have bilateral 1 to 2+ edema without focal deficits. LABORATORIES: 1. WBC count remains low at 3. Hemoglobin also is stable at 11, and mild hypochromasia noted. Nor mal platelet count. 2. Chemistry: Creatinine continues to improve daily, today is 2.3, calcium is stable at 7.6. Poin t of care glucose levels have been stable as well. 3. His last liver profile was back on August 07, and it was normal. His last TSH was August 07 a s well and it was elevated with particularly low T4. 4. Last hemoglobin A1c 5.9 August 07 as well. MICROBIOLOGY: Urine culture grew out Enterobacter aerogenes and Katharina glabrata. IMAGIN. He had a CT of the face August 07 that did show a left partial middle ear and extensive mastoid opacification with associated effusions compatible with otomastoiditis paranasal disease. 2. He had a nuclear medicine stress test on the 09 of August that showed no evidence of stress-ind uced myocardial ischemia with ejection fraction at stress of 55%. ASSESSMENT: This is a 56-year-old male who was originally admitted for uncontrolled blood pressure, now managed for the followin. Sepsis secondary to urinary tract infection, now resolved. 2. Enterobacter/Katharina urinary tract infection. 3. Accelerated hypertension, still with suboptimal control. 4. headaches/nausea, persistent, which could be secondary to uncontrolled hypertension, but will raymond ve to rule out an occult pathology. 5. Status post elevated troponins (type 2 myocardial infarction) status post negative stress test 08/09/2016. 6. Acute on chronic kidney disease, significantly improved. 7. Chronic kidney disease. 8. Hypochromic anemia, likely secondary to chronic kidney disease, stable. 9. Leukopenia, for which the source is not quite clear. 10. Left-sided severe ostial mastoiditis status post ENT review, antibiotics. 11. Recent methicillin-resistant Staphylococcus aureus spinal abscess, on antibiotics per infectiou s disease status post surgery 08/09/2016. 12. BPH. 13. Hypothyroidism, on levothyroxine. PLAN: 1. At this time, I am going to order a brain imaging with a CT scan to evaluate this persistent jane vation in his blood pressure as well as nausea and headaches. As the patient recently had a spinal abscess there could be concern for further inflammatory process going on intracranially causing his symptoms. 2. The patient would benefit from physical therapy evaluation to keep getting ambulant and working and will see how his symptoms respond to that. 3. Cardiology is assisting in titrating his blood pressure for stricter control. We will continue to defer to them for management of that. Continue to monitor his renal function and continue antibi otics per ID. 4. Continue all other supportive care and continue levothyroxine therapy. Of note is that patient also is on Bumex therapy which he was placed done by nephrology who also is following the patient. Prophylaxes: He is on heparin at renal dose and Protonix p.o. daily. I will also be ordering to di scontinue the Cox catheter and further interventions will depend on his clinical course. Dictated By: RAMON PUENTES MD, BA/ERICKA Conf#: [id number] DID#: [id number]
--- NOTE | 2016-08-12 16:20 | RADRPT ---
PROCEDURE: CT Brain without contrast. CLINICAL INDICATION: headaches and nausea TECHNIQUE: A CT of the brain was performed on a [employer] 64-slice CT scanner utilizing axial imaging from the skull base through the vertex without IV contrast. Multiplanar reformatted images were made. Images were reviewed on a PACS workstation. The CTDIvol is 45.0 mGy and the DLP is 630 mGycm. COMPARISON: None FINDINGS: There is no intracranial hemorrhage, mass effect, or midline shift. No extra-axial fluid collection is seen. The ventricles and sulci are normal in size and configuration. The density of the brain is normal, and the herrera white matter differentiation appears well-preserved. The visualized paranasal sinuses and osseous structures are grossly unremarkable. IMPRESSION: 1. No evidence of acute intracranial pathology. 2. The brain is normal in appearance. Physician Phong Date Time Electronically viewed and signed by Physician Phong on 08/12/2016 16:20 ML/
[2016-08-12] MEDS: CEFEPIME 1GM/50 ML (PMX) 50 ML IVPB SCH (17:07)
--- NOTE | 2016-08-12 18:02 | RADRPT ---
Vent Rate: 62 bpm RR Interval: 0 msec [place] Interval: 160 msec QRS Duration: 80 msec QT Interval: 496 msec QTC Interval: 503 msec P-R-T [place]: 31 - -31 - 47 degrees Normal sinus rhythm Left axis deviation Prolonged QT Abnormal ECG Electronically Signed By: Jasbir Bella [id number]
[2016-08-12] MEDS: TAMSULOSIN (SR) 0.4 MG CAP PO SCH (20:24)
[2016-08-12] MEDS ORDERED: METOPROLOL 25 MG TAB PO SCH (21:00)
[2016-08-12] MEDS: VANCOMYCIN 500MG/NS (PMX) 100 ML IVPB SCH (21:29)
[2016-08-12] MEDS: hydrALAzine 20 MG INJ IV PRN (23:40)
[2016-08-13] VITALS (11 sets, daily range): BP systolic 121–187; BP diastolic 65–97; PULSE 66–72; RESP 18–20
[2016-08-13] MEDS: ACCU-CHEK XX SCH (01:02)
[2016-08-13] MEDS: morphine 2 MG INJ IV PRN (05:33)
[2016-08-13] MEDS: ONDANSETRON 4 MG INJ IV PRN (05:33)
[2016-08-13] MEDS: LEVOTHYROXINE 50 MCG TAB PO SCH (05:33)
[2016-08-13 07:29] LABS: ADD SCAN DIFF NO
[2016-08-13 07:36] LABS: BASOPHIL # 0.1 10^3/ul (0.0-0.1); BASOPHILS % 1.4 % (0.0-2.0); EOSINOPHILS # 0.2 10^3/ul (0.0-0.5); EOSINOPHILS % 5.1 % (0.0-7.0); HEMATOCRIT 33.3 % (42.0-52.0); HEMOGLOBIN 10.8 g/dl (14.0-18.0); LYMPHOCYTES # 0.8 10^3/ul (0.8-2.9); MEAN CORPUSCULAR HGB CONC 32.4 g/dl (32.0-37.0); MEAN CORPUSCULAR VOLUME 95.7 fl (82.0-101.0); MONOCYTE # 0.3 10^3/ul (0.3-0.9); MONOCYTES % 8.5 % (0.0-11.0); NEUTROPHIL # 2.2 10^3/ul (1.6-7.5); NEUTROPHILS % 61.7 % (39.0-77.0); PLATELET COUNT 151 10^3/UL (140-415); RED BLOOD COUNT 3.48 10^6/ul (4.70-6.10); RED CELL DISTRIBUTION WIDTH 18.6 % (11.5-14.5); WHITE BLOOD COUNT 3.5 10^3/ul (4.8-10.8)
[2016-08-13 07:49] LABS: POTASSIUM 4.5 mmol/L (3.5-5.1)
[2016-08-13 07:51] LABS: CREATININE 2.28 mg/dl (0.61-1.24)
[2016-08-13 07:52] LABS: CALCIUM 7.5 mg/dl (8.4-10.2); MAGNESIUM 2.2 mg/dl (1.7-2.5)
[2016-08-13] MEDS: INSULIN ASPART [NOVOLOG] 3 ML PEN SC SCH ×2 (08:00→12:00)
[2016-08-13] MEDS: PANTOPRAZOLE (EC) 40 MG TAB PO SCH (09:00)
[2016-08-13] MEDS: MINOXIDIL 2.5 MG TAB PO SCH (09:00)
[2016-08-13] MEDS: FERROUS SULFATE (EC) 325 MG TAB PO SCH (09:00)
[2016-08-13] MEDS: BUMETANIDE 1 MG TAB PO SCH (09:00)
[2016-08-13] MEDS: ISOSORBIDE DINITRATE 20 MG TAB PO SCH ×2 (09:00→13:34)
[2016-08-13] MEDS: FINASTERIDE 5 MG TAB PO SCH (09:00)
[2016-08-13] MEDS: RIFAMPIN 300 MG CAP PO SCH (09:00)
[2016-08-13] MEDS: LACTOBACILLUS CHEW TAB PO SCH ×2 (09:00→13:34)
[2016-08-13] MEDS: NIFEdipine (XL) 30 MG TAB PO SCH (09:00)
[2016-08-13] MEDS: NEOMYC/POLYMYX/HC 10 ML OTIC SUSP BOTH EARS SCH ×2 (09:50→13:50)
--- NOTE | 2016-08-13 10:43 | PN ---
Date/Time of Note Date/Time of Note DATE: 08/13/16 TIME: 10:39 Assessment/Plan Lines/Catheters IV C[facility]ter Type ([facility] PICC Line Urinary Cath still in place: No Assessment/Plan Assessment/Plan This is a 56-year-old male who was originally admitted for uncontrolled blood pressure, now managed for the followin. Sepsis secondary to urinary tract infection, now resolved. 2. Enterobacter/Katharina urinary tract infection. 3. Accelerated hypertension, still with suboptimal control. 4. Headaches/nausea, persistent likely 2/2 HTN 5. Status post elevated troponins (type 2 myocardial infarction) status post negative stress test 08/09/2016. 6. Acute on chronic kidney disease, significantly improved. 7. Chronic kidney disease. 8. Hypochromic anemia, likely secondary to chronic kidney disease, stable. 9. Leukopenia, for which the source is not quite clear. 10. Left-sided severe ostial mastoiditis status post ENT review, antibiotics. 11. Recent methicillin-resistant Staphylococcus aureus spinal abscess, on antibiotics per infectious disease status post surgery 08/09/2016. 12. BPH. 13. Hypothyroidism, on levothyroxine. PLAN: * CT reviewed and negative * F/u PT eval and recs * Continue abx per ID / other meds / supportive care Prophylaxis: He is on heparin at renal dose and Protonix p.o. daily. Exam/Review of Systems Vital Signs Vitals Vital Signs Date Time Temp Pulse Resp B/P Pulse Ox O2 Delivery O2 Flow Rate FiO2 08/13/16 08:22 98.5 73 18 128/72 95 08/13/16 00:00 Room Air Intake and Output 08/12/16 08/12/16 08/13/16 15:00 23:00 07:00 Intake Total 400 ml Output Total 1000 ml Balance -600 ml Results Result Diagram: 08/13/16 0715 08/13/16 0715 Results 24 hrs Laboratory Tests Test 08/12/16 11:46 08/12/16 12:05 08/12/16 17:05 08/12/16 20:17 Bedside Glucose 94 77 99 Lab Scanned Report REFERENCE LAB Test 08/13/16 07:15 08/13/16 08:23 Anion Gap 14 Basophils # 0.1 Basophils % 1.4 Blood Urea Nitrogen 45 H Calcium Level 7.5 L Carbon Dioxide Level 24 Chloride Level 109 Creatinine 2.28 H Eosinophils # 0.2 Eosinophils % 5.1 Glucose Level 85 Hematocrit 33.3 L Hemoglobin 10.8 L Lymphocytes # 0.8 Lymphocytes % 23.0 Magnesium Level 2.2 Mean Corpuscular Hemoglobin 31.0 Mean Corpuscular Hemoglobin Concent 32.4 Mean Corpuscular Volume 95.7 Mean Platelet Volume 10.0 Monocytes # 0.3 Monocytes % 8.5 Neutrophils # 2.2 Neutrophils % 61.7 Nucleated Red Blood Cells # 0.0 Nucleated Red Blood Cells % 0.0 Platelet Count 151 Potassium Level 4.5 Red Blood Count 3.48 L Red Cell Distribution Width 18.6 H Sodium Level 142 White Blood Count 3.5 L Bedside Glucose 99 Medications Medications Current Medications Bumetanide (Bumex) 1 mg DAILY PO Last administered on 08/12/16 10:22; Admin Dose 1 MG; Start 08/07/16 at 09:00 Carvedilol (Coreg) 6.25 mg BID PO Last administered on 08/12/16 20:24; Admin Dose 6.25 MG; Start 08/06/16 at 21:00 Ferrous Sulfate (Ferrous Sulfate (Ec)) 325 mg BID PO Last administered on 20:25; Admin Dose 325 MG; Start 08/06/16 at 21:00 Finasteride (Proscar) 5 mg DAILY PO Last administered on 08/12/16 10:21; Admin Dose 5 MG; Start 08/07/16 at 09:00 Lactobacillus Acidoph/Bulgaricus (Floranex) 1 tab TID PO Last administered on 20:24; Admin Dose 1 TAB; Start 08/06/16 at 21:00 Pantoprazole (Protonix Tab) 40 mg DAILY PO Last administered on 08/12/16 10:23 ; Admin Dose 40 MG; Start 08/07/16 at 09:00 Rifampin (Rifampin) 600 mg DAILY PO Last administered on 08/12/16 10:21; Admin Dose 600 MG; Start 08/07/16 at 09:00 Simethicone (Mylicon) 80 mg Q6H PRN GTB DISTENSION/GAS/BLOATING; Start at 17:30 Tamsulosin HCl (Flomax) 0.4 mg QHS PO Last administered on 08/12/16 20:24; Admin Dose 0.4 MG; Start 08/06/16 at 21:00 Ondansetron HCl (Zofran Inj) 4 mg Q6H PRN IV NAUSEA AND/OR VOMITING Last administered on 08/13/16 05:33; Admin Dose 4 MG; Start 08/06/16 at 17:30 Acetaminophen (Tylenol Tab) 650 mg Q6H PRN PO PAIN LEVEL 1-3 OR FEVER; Start at 17:30 Acetaminophen (Tylenol Supp) 650 mg Q6H PRN [place] PAIN LEVEL 1-3 OR FEVER; Start 08/06/16 at 17:30 Acetaminophen/ Hydrocodone Bitart ([place] (5/325)) 1 tab Q6H PRN PO MODERATE PAIN LEVEL 4-6 Last administered on 08/10/16 21:14; Admin Dose 1 TAB; Start at 17:30 Acetaminophen/ Hydrocodone Bitart ([place] (5/325)) 2 tab Q6H PRN PO SEVERE PAIN LEVEL 7-10 Last administered on 08/09/16 15:27; Admin Dose 2 TAB; Start at 17:30 Morphine Sulfate (morphine) 2 mg Q4H PRN IV SEVERE PAIN LEVEL 7-10 Last administered on 08/13/16 05:33; Admin Dose 2 MG; Start 08/06/16 at 17:30 Docusate Sodium (Colace) 100 mg Q12H PRN PO CONSTIPATION; Start 08/06/16 at 17: 30 Magnesium Hydroxide (Milk Of Mag) 30 ml DAILY PRN PO CONSTIPATION; Start at 17:30 Bisacodyl (Dulcolax Supp) 10 mg DAILY PRN [place] CONSTIPATION; Start 08/06/16 at 17 :30 Heparin Sodium (Porcine) (Heparin (5000 Units/0.5 ml)) 5,000 unit Q12 SC Last administered on 08/12/16 20:32; Admin Dose 5,000 UNIT; Start 08/06/16 at 21:00 Diagnostic Test (Pha) (Accucheck) 1 ea 02 XX Last administered on 08/09/16 02: 24; Admin Dose 1 EA; Start 08/07/16 at 02:00 Hydralazine HCl (Apresoline) 10 mg Q6H PRN IV SBP>170 Last administered on 08/12 23:40; Admin Dose 10 MG; Start 08/06/16 at 17:30 Miscellaneous Information 1 ea NOTE XX ; Start 08/06/16 at 17:30 Glucose (Glutose) 15 gm Q15M PRN PO DECREASED GLUCOSE; Start 08/06/16 at 17:30 Glucose (Glutose) 22.5 gm Q15M PRN PO DECREASED GLUCOSE; Start 08/06/16 at 17: 30 Dextrose (D50w Syringe) 25 ml Q15M PRN IV DECREASED GLUCOSE; Start 08/06/16 at 17:30 Dextrose (D50w Syringe) 50 ml Q15M PRN IV DECREASED GLUCOSE; Start 08/06/16 at 17:30 Glucagon (Glucagen) 1 mg Q15M PRN IM DECREASED GLUCOSE; Start 08/06/16 at 17:30 Glucose (Glutose) 15 gm Q15M PRN BUCCAL DECREASED GLUCOSE; Start 08/06/16 at 17 :30 Vancomycin HCl PER PHARMACY DOSING NOTE XX ; Start 08/06/16 at 22:00 Vancomycin HCl (Vancocin) 100 ml @ 100 mls/hr Q48H IVPB Last administered on 21:29; Admin Dose 100 MLS/HR; Start 08/08/16 at 22:00 Levothyroxine Sodium (Synthroid) 50 mcg DAILY@06 PO Last administered on 05:33; Admin Dose 50 MCG; Start 08/08/16 at 06:00 Hydralazine HCl (Apresoline) 100 mg TID PO Last administered on 08/12/16 20:24 ; Admin Dose 100 MG; Start 08/07/16 at 21:00 Isosorbide Dinitrate (Isordil) 20 mg TID PO Last administered on 08/12/16 20: 25; Admin Dose 20 MG; Start 08/07/16 at 21:00 Neomycin/ Polymyxin/ Hydrocortisone 4 drop 4 drop TID BOTH EARS Last administered on 08/13/16 09:50; Admin Dose 4 DROP; Start 08/07/16 at 23:30; Stop 08/14/16 at 23:29 Cefepime HCl (Maxipime 1gm/50 ml (Pmx)) 50 ml @ 100 mls/hr Q24H IVPB Last administered on 08/12/16 17:07; Admin Dose 100 MLS/HR; Start 08/09/16 at 18:00 Fluconazole (Diflucan) 100 mg DAILY PO Last administered on 08/12/16 10:23; Admin Dose 100 MG; Start 08/09/16 at 16:00 Nifedipine (Procardia Xl) 30 mg BID PO Last administered on 08/12/16 20:25; Admin Dose 30 MG; Start 08/11/16 at 21:00 Minoxidil (Loniten) 5 mg BID PO Last administered on 08/12/16 20:25; Admin Dose 5 MG; Start 08/12/16 at 11:00 Procedures Procedures PROCEDURE: CT Brain without contrast. CLINICAL INDICATION: headaches and nausea TECHNIQUE: A CT of the brain was performed on a [employer] 64-slice CT scanner utilizing axial imaging from the skull base through the vertex without IV contrast. Multiplanar reformatted images were made. Images were reviewed on a PACS workstation. The CTDIvol is 45.0 mGy and the DLP is 630 mGycm. COMPARISON: None FINDINGS: There is no intracranial hemorrhage, mass effect, or midline shift. No extra- axial fluid collection is seen. The ventricles and sulci are normal in size and configuration. The density of the brain is normal, and the herrera white matter differentiation appears well-preserved. The visualized paranasal sinuses and osseous structures are grossly unremarkable. IMPRESSION: 1. No evidence of acute intracranial pathology. 2. The brain is normal in appearance. Physician Phong Date Time Electronically viewed and signed by Osmel Ireland Physician on 08/12/2016 16 :20 ML/ CC: RAMON PUENTES BOLATITO M. Aug 13, 2016 10:43
--- NOTE | 2016-08-13 13:19 | CONS ---
Date/Time of Note Date/Time of Note DATE: 08/13/16 TIME: 13:18 Assessment/Plan Assessment/Plan Chief Complaint/Hosp Course SUBJECTIVE: No events. No fevers. Awake, looks comfortable ANTIMICROBIALS: Vancomycin, Cefepime, Diflucan DIAGNOSTICS: Facial CT on admission revealed left partial middle ear and extensive mastoid opacification with associated effusions compatible with otomastoiditis. Bilateral maxillary sinus mucosal thickening and mild bilateral anterior ethmoid air cell mucosal thickening are also seen. INDWELLINGS: The patient has PICC line. PHYSICAL EXAMINATION: GENERAL: This is a well-developed middle-aged man who is awake, in no distress. HEENT: Head atraumatic, normocephalic. Sclerae anicteric. Buccal mucosa pink. NECK: Supple. CHEST: Rise symmetrical. Breath sounds clear. HEART: S1, S2. ABDOMEN: Soft. Bowel tones present. EXTREMITIES: No cyanosis. ASSESSMENT: 1. Left otomastoiditis. 2. Methicillin-resistant Staphylococcus aureus spinal abscess, status post decompressive laminectomy with evacuation of abscess done on 07/12/2016. 3. Chronic kidney disease with urinary retention. 4. Diabetes. 5. Hypertension. 6. UTI==> Enterobacter/yeast PLAN: Clinically unchanged. Continue IV vancomycin until 09/07. Continue otic gtts per ENT, change abx to PO Cipro. Follow recommendations of consultants. Monitor pvr DW staff Problems: Consultation Date/Type/Reason Admit Date/Time Aug 06, 2016 at 15:13 Type of Consultation: id Referring Provider: JUDSON TREVINO Exam/Review of Systems Vital Signs Vitals Vital Signs Date Time Temp Pulse Resp B/P Pulse Ox O2 Delivery O2 Flow Rate FiO2 08/13/16 12:28 98.6 70 18 143/70 98 08/13/16 00:00 Room Air Intake and Output 08/12/16 08/12/16 08/13/16 15:00 23:00 07:00 Intake Total 400 ml Output Total 1000 ml Balance -600 ml Results Result Diagram: 08/13/16 0715 08/13/16 0715 Results 24 hrs Laboratory Tests Test 08/12/16 17:05 08/12/16 20:17 08/13/16 07:15 08/13/16 08:23 Bedside Glucose 77 99 99 White Blood Count 3.5 L Red Blood Count 3.48 L Hemoglobin 10.8 L Hematocrit 33.3 L Mean Corpuscular Volume 95.7 Mean Corpuscular Hemoglobin 31.0 Mean Corpuscular Hemoglobin Concent 32.4 Red Cell Distribution Width 18.6 H Platelet Count 151 Mean Platelet Volume 10.0 Neutrophils % 61.7 Lymphocytes % 23.0 Monocytes % 8.5 Eosinophils % 5.1 Basophils % 1.4 Nucleated Red Blood Cells % 0.0 Neutrophils # 2.2 Lymphocytes # 0.8 Monocytes # 0.3 Eosinophils # 0.2 Basophils # 0.1 Nucleated Red Blood Cells # 0.0 Sodium Level 142 Potassium Level 4.5 Chloride Level 109 Carbon Dioxide Level 24 Anion Gap 14 Blood Urea Nitrogen 45 H Creatinine 2.28 H Glucose Level 85 Calcium Level 7.5 L Magnesium Level 2.2 Test 08/13/16 12:59 Bedside Glucose 111 Medications Medications Current Medications Bumetanide (Bumex) 1 mg DAILY PO Last administered on 08/12/16 10:22; Admin Dose 1 MG; Start 08/07/16 at 09:00 Carvedilol (Coreg) 6.25 mg BID PO Last administered on 08/12/16 20:24; Admin Dose 6.25 MG; Start 08/06/16 at 21:00 Ferrous Sulfate (Ferrous Sulfate (Ec)) 325 mg BID PO Last administered on 20:25; Admin Dose 325 MG; Start 08/06/16 at 21:00 Finasteride (Proscar) 5 mg DAILY PO Last administered on 08/12/16 10:21; Admin Dose 5 MG; Start 08/07/16 at 09:00 Lactobacillus Acidoph/Bulgaricus (Floranex) 1 tab TID PO Last administered on 20:24; Admin Dose 1 TAB; Start 08/06/16 at 21:00 Pantoprazole (Protonix Tab) 40 mg DAILY PO Last administered on 08/12/16 10:23 ; Admin Dose 40 MG; Start 08/07/16 at 09:00 Rifampin (Rifampin) 600 mg DAILY PO Last administered on 08/12/16 10:21; Admin Dose 600 MG; Start 08/07/16 at 09:00 Simethicone (Mylicon) 80 mg Q6H PRN GTB DISTENSION/GAS/BLOATING; Start at 17:30 Tamsulosin HCl (Flomax) 0.4 mg QHS PO Last administered on 08/12/16 20:24; Admin Dose 0.4 MG; Start 08/06/16 at 21:00 Ondansetron HCl (Zofran Inj) 4 mg Q6H PRN IV NAUSEA AND/OR VOMITING Last administered on 08/13/16 05:33; Admin Dose 4 MG; Start 08/06/16 at 17:30 Acetaminophen (Tylenol Tab) 650 mg Q6H PRN PO PAIN LEVEL 1-3 OR FEVER; Start at 17:30 Acetaminophen (Tylenol Supp) 650 mg Q6H PRN [place] PAIN LEVEL 1-3 OR FEVER; Start 08/06/16 at 17:30 Acetaminophen/ Hydrocodone Bitart ([place] (5/325)) 1 tab Q6H PRN PO MODERATE PAIN LEVEL 4-6 Last administered on 08/10/16 21:14; Admin Dose 1 TAB; Start at 17:30 Acetaminophen/ Hydrocodone Bitart ([place] (5/325)) 2 tab Q6H PRN PO SEVERE PAIN LEVEL 7-10 Last administered on 08/09/16 15:27; Admin Dose 2 TAB; Start at 17:30 Morphine Sulfate (morphine) 2 mg Q4H PRN IV SEVERE PAIN LEVEL 7-10 Last administered on 08/13/16 05:33; Admin Dose 2 MG; Start 08/06/16 at 17:30 Docusate Sodium (Colace) 100 mg Q12H PRN PO CONSTIPATION; Start 08/06/16 at 17: 30 Magnesium Hydroxide (Milk Of Mag) 30 ml DAILY PRN PO CONSTIPATION; Start at 17:30 Bisacodyl (Dulcolax Supp) 10 mg DAILY PRN [place] CONSTIPATION; Start 08/06/16 at 17 :30 Heparin Sodium (Porcine) (Heparin (5000 Units/0.5 ml)) 5,000 unit Q12 SC Last administered on 08/12/16 20:32; Admin Dose 5,000 UNIT; Start 08/06/16 at 21:00 Diagnostic Test (Pha) (Accucheck) 1 ea 02 XX Last administered on 08/09/16 02: 24; Admin Dose 1 EA; Start 08/07/16 at 02:00 Hydralazine HCl (Apresoline) 10 mg Q6H PRN IV SBP>170 Last administered on 08/12 23:40; Admin Dose 10 MG; Start 08/06/16 at 17:30 Miscellaneous Information 1 ea NOTE XX ; Start 08/06/16 at 17:30 Glucose (Glutose) 15 gm Q15M PRN PO DECREASED GLUCOSE; Start 08/06/16 at 17:30 Glucose (Glutose) 22.5 gm Q15M PRN PO DECREASED GLUCOSE; Start 08/06/16 at 17: 30 Dextrose (D50w Syringe) 25 ml Q15M PRN IV DECREASED GLUCOSE; Start 08/06/16 at 17:30 Dextrose (D50w Syringe) 50 ml Q15M PRN IV DECREASED GLUCOSE; Start 08/06/16 at 17:30 Glucagon (Glucagen) 1 mg Q15M PRN IM DECREASED GLUCOSE; Start 08/06/16 at 17:30 Glucose (Glutose) 15 gm Q15M PRN BUCCAL DECREASED GLUCOSE; Start 08/06/16 at 17 :30 Vancomycin HCl PER PHARMACY DOSING NOTE XX ; Start 08/06/16 at 22:00 Vancomycin HCl (Vancocin) 100 ml @ 100 mls/hr Q48H IVPB Last administered on 21:29; Admin Dose 100 MLS/HR; Start 08/08/16 at 22:00 Levothyroxine Sodium (Synthroid) 50 mcg DAILY@06 PO Last administered on 05:33; Admin Dose 50 MCG; Start 08/08/16 at 06:00 Hydralazine HCl (Apresoline) 100 mg TID PO Last administered on 08/12/16 20:24 ; Admin Dose 100 MG; Start 08/07/16 at 21:00 Isosorbide Dinitrate (Isordil) 20 mg TID PO Last administered on 08/12/16 20: 25; Admin Dose 20 MG; Start 08/07/16 at 21:00 Neomycin/ Polymyxin/ Hydrocortisone 4 drop 4 drop TID BOTH EARS Last administered on 08/13/16 09:50; Admin Dose 4 DROP; Start 08/07/16 at 23:30; Stop 08/14/16 at 23:29 Cefepime HCl (Maxipime 1gm/50 ml (Pmx)) 50 ml @ 100 mls/hr Q24H IVPB Last administered on 08/12/16 17:07; Admin Dose 100 MLS/HR; Start 08/09/16 at 18:00 Fluconazole (Diflucan) 100 mg DAILY PO Last administered on 08/12/16 10:23; Admin Dose 100 MG; Start 08/09/16 at 16:00 Nifedipine (Procardia Xl) 30 mg BID PO Last administered on 08/12/16 20:25; Admin Dose 30 MG; Start 08/11/16 at 21:00 Minoxidil (Loniten) 5 mg BID PO Last administered on 08/12/16 20:25; Admin Dose 5 MG; Start 08/12/16 at 11:00 DORENE GARCIA NP Aug 13, 2016 13:19
[2016-08-13] MEDS ORDERED: VANC500F2 IV (16:59)
[2016-08-13] MEDS ORDERED: NPH10OT BOTH EARS (16:59)
[2016-08-13] MEDS ORDERED: MIN25 PO (16:59)
[2016-08-13] MEDS ORDERED: NIFEdipine (XL) PO (16:59)
[2016-08-13] MEDS ORDERED: APR50 PO (16:59)
[2016-08-13] MEDS ORDERED: LEVO50TA83 PO (16:59)
[2016-08-13] MEDS ORDERED: ISOS20TA19 PO (16:59)
[2016-08-13] MEDS ORDERED: CIPR-193 PO (16:59)
[2016-08-13] MEDS ORDERED: Vancomycin Iv Per Pharmacy XX (16:59)
[2016-08-13] MEDS ORDERED: CIPROFLOXACIN 250 MG TAB PO SCH (18:00)
--- NOTE | 2016-08-14 01:54 | DS ---
DATE OF ADMISSION: 08/06/2016 DATE OF DISCHARGE: 08/13/2016 PRESENTING COMPLAINT: Uncontrolled blood pressure. ADMISSION DIAGNOSES: 1. Uncontrolled pressure. 2. Elevated troponin in the setting of chronic kidney disease. 3. Acute kidney injury on chronic kidney disease. 4. Recent spinal abscess with methicillin-resistant Staphylococcus aureus. 5. Urinary tract Infection. 6. History of iron deficiency anemia. 7. Benign prostatic hypertrophy. 8. History of diabetes. CONSULTS ON THE CASE: 1. Dr. Bharathi Marquez for nephrology. 2. Dr. Armando Rodríguez from infectious disease. 3. Dr. Filemon Albright for ENT. 4. Dr. Raheem Jack for cardiology. INTERVENTIONS: 1. CT of the face that showed left partial middle ear and extensive mastoid opacification with asso ciated effusions compatible with otomastoiditis and paranasal sinus disease. 2. Nuclear medicine stress test 08/09/2016 showed no evidence of stress-induced myocardial ischemia . EF at stress is 55%. 3. A CT of the brain 08/12/2016 that was unremarkable. HOSPITAL COURSE: Full details are available in the chart for review. In summary, this patient was just admitted here after he had presented and was found to have a spinal abscess that was drained by neurosurgery and grew out MRSA. He was sent to a shelter facility, but was brought back be cause of severely elevated blood pressure and pain. CT of the face showed otomastoiditis. Patient was admitted for further management, but he also developed chest pain and was found to have elevated troponins. He underwent a nuclear medicine stress test and this was normal. Elevated troponin was trended until normal. He was followed by cardiology in house. Due to his multiple comorbidities, the patient had a mildly prolonged hospitalization course and his had to be addressed one at t he time. At this time, he has been cleared for discharge from all standpoints. FINAL DIAGNOSES: 1. Sepsis secondary to urinary tract infection, now resolved. 2. Enterobacter/Katharina urinary tract infection. 3. Accelerated hypertension, now improved control. 4. Headache and nausea secondary to hypertension, now resolved. 5. Status post elevated troponin. Type 2 myocardial infarction, status post negative stress test 0 08/09/2016. 6. Chronic kidney disease, now at baseline. 7. Acute on chronic kidney disease, resolved. 8. Hypochromic anemia secondary to chronic kidney disease, stable. 9. Left-sided severe otomastoiditis, status post ENT review on antibiotic treatment. 10. Recent MRI shows spinal abscess, on antibiotics, status post drainage 08/09/2016. 11. Benign prostatic hypertrophy. 12. Hypothyroidism. DISCHARGE MEDICATIONS: 1. Ciprofloxacin 250 mg twice a day for 3 weeks. 2. Hydralazine 100 t.i.d. 3. Isosorbide dinitrate 20 t.i.d. 4. Levothyroxine 50 daily. 5. Minoxidil 5 b.i.d. 6. Neomycin-Polymyxin suspension 4 drops to both ears 3 times a day for 7 more days. 7. IV vancomycin 500 q. 48 hours for 21 days. 8. Procardia-XL 30 mg b.i.d. for 30 days. 9. Bumex 1 mg daily. 10. Coreg 6.25 b.i.d. 11. Vitamin D2 50,000 units daily. 12. Ferrous sulfate 325 b.i.d. 13. Finasteride 5 mg daily. 14. Floranex 1 tab t.i.d. 15. Protonix 40 daily. 16. Mylicon as needed. 17. Tamsulosin 0.4 mg p.o. daily. DISCHARGE CONDITION: Stable. ACTIVITY: As tolerated with physical therapy. Follow up will be per his physician at the [facility] facility. Overall time spent on discharge planning has been more than 1 hour. Dictated By: RAMON PUENTES MD, BA/ERICKA Conf#: [id number] DID#: [id number]
== END 2016-08-13 18:33 | DRG 304 ==
LOC: MS4 15:13
PROVIDERS: ADMIT Family Medicine; ATTEND Family Medicine
DX: I16.0 Hypertensive urgency (principal); A41.9 Sepsis, unspecified organism; N17.9 Acute kidney failure, unspecified; E11.21 Type 2 diabetes mellitus with diabetic nephropathy; K31.84 Gastroparesis; N39.0 Urinary tract infection, site not specified; E11.43 Type 2 diabetes mellitus with diabetic autonomic (poly)neuropathy; B37.49 Other urogenital candidiasis; H70.92 Unspecified mastoiditis, left ear; N40.0 Benign prostatic hyperplasia without lower urinary tract symptoms; Z86.718 Personal history of other venous thrombosis and embolism; R07.9 Chest pain, unspecified; M54.9 Dorsalgia, unspecified; R51 Headache; I95.1 Orthostatic hypotension; Z74.01 Bed confinement status; H91.92 Unspecified hearing loss, left ear; B96.89 Other specified bacterial agents as the cause of diseases classified elsewhere; D50.9 Iron deficiency anemia, unspecified; K21.9 Gastro-esophageal reflux disease without esophagitis; J32.9 Chronic sinusitis, unspecified; N40.1 Benign prostatic hyperplasia with lower urinary tract symptoms; R33.8 Other retention of urine; I12.9 Hypertensive chronic kidney disease with stage 1 through stage 4 chronic kidney disease, or unspecified chronic kidney disease; E11.22 Type 2 diabetes mellitus with diabetic chronic kidney disease; N18.9 Chronic kidney disease, unspecified
CPT/HCPCS: 70450; 70486; 78452; 80048; 80053; 80061; 80202; 82550; 82553; 82962; 83036; 83735; 83970; 84100; 84436; 84443; 84479; 84484; 85014; 85018; 85025; 87040; 87081; 87086; 93005; 93017; A9500; A9505; J0360; J0692; J1170; J1644; J1815; J2270; J2405; J2543; J2785; J3370

== ENCOUNTER 2016-09-01 16:23 | Inpatient (IN) | payer OTHER ==
[~2016-09-01] VITALS: Ht 165.1 cm; Wt 81.2 kg
[~2016-09-01 16:23] MED LIST changes: -APR50 PO; +CIPR-193 PO; +HYDR-3672 PO; +ISOS20TA19 PO; +LEVO50TA83 PO; +MINO2.5T16 PO; +NIFEdipine (XL) PO; +NPH10OT BOTH EARS; -RIF120L PO; +VANC500F2 IV
[2016-09-01 17:54] VITALS: BP 99/57; PULSE 57; RESP 18
[2016-09-01 18:00] VITALS: Ht 165.1 cm; Wt 81.2 kg
[2016-09-01] MEDS ORDERED: OXYC-279 PO (19:59)
[2016-09-01] MEDS ORDERED: SIME80TA PO (19:59)
[2016-09-01] MEDS ORDERED: NOVO3I SC (19:59)
[2016-09-01] MEDS ORDERED: ZOLP10TA5 PO (19:59)
[2016-09-01] MEDS ORDERED: OMEP20CA16 PO (19:59)
[2016-09-01 20:31] VITALS: BP 99/57; RESP 18
[2016-09-01] MEDS: ISOSORBIDE DINITRATE 20 MG TAB PO SCH (23:00)
[2016-09-01] MEDS ORDERED: ERGOCALCIFEROL 50,000 UNIT CAP PO SCH (23:00)
[2016-09-01] MEDS ORDERED: ZOLPIDEM 5 MG TAB PO PRN (23:00)
[2016-09-01] MEDS ORDERED: GLUCOSE GEL 15 GRAM TUBE BUCCAL PRN (23:30)
[2016-09-01] MEDS ORDERED: GLUCAGON 1 MG INJ IM PRN (23:30)
[2016-09-01] MEDS ORDERED: VANCOMYCIN IV PER PHARMACY XX SCH (23:30)
[2016-09-01] MEDS ORDERED: DEXTROSE 50% 50 ML SYRINGE IV PRN ×2 (23:30)
[2016-09-01] MEDS ORDERED: GLUCOSE GEL 15 GRAM TUBE PO PRN ×2 (23:30)
[2016-09-01] MEDS: morphine 4 MG/ML VIAL IV PRN (23:56)
[2016-09-02] MEDS ORDERED: VANCOMYCIN 1.75 GM in NS 500 ML IVPB SCH (01:00)
[2016-09-02] MEDS ORDERED: ACCU-CHEK XX SCH (02:00)
[2016-09-02] MEDS: ACCU-CHEK XX SCH (02:00)
[2016-09-02] MEDS ORDERED: ALBUMIN HUMAN 25% 100 ML IV SCH (06:00)
[2016-09-02] MEDS ORDERED: LEVOTHYROXINE 50 MCG TAB PO SCH (06:00)
[2016-09-02 07:10] VITALS: BP 113/63; RESP 18
[2016-09-02] MEDS: INSULIN ASPART [NOVOLOG] 3 ML PEN SC SCH ×4 (07:48→21:00)
[2016-09-02] MEDS ORDERED: ISOSORBIDE DINITRATE 20 MG TAB PO SCH (09:00)
[2016-09-02] MEDS: NIFEdipine (XL) 30 MG TAB PO SCH ×2 (09:00→09:54)
[2016-09-02] MEDS: HEPARIN 5,000 UNIT/0.5 ML VIAL SC SCH ×2 (09:00→21:06)
[2016-09-02] MEDS: FAMOTIDINE 20 MG TAB PO SCH ×2 (09:00→09:55)
[2016-09-02] MEDS: FINASTERIDE 5 MG TAB PO SCH ×2 (09:00→09:55)
[2016-09-02] MEDS: ISOSORBIDE DINITRATE 20 MG TAB PO SCH ×4 (09:00→20:56)
[2016-09-02] MEDS: MINOXIDIL 2.5 MG TAB PO SCH ×3 (09:00→20:57)
[2016-09-02] MEDS: LACTOBACILLUS CHEW TAB PO SCH ×4 (09:00→20:56)
[2016-09-02] MEDS: BUMETANIDE 1 MG TAB PO SCH ×2 (09:00→09:54)
[2016-09-02] MEDS: FERROUS SULFATE (EC) 325 MG TAB PO SCH ×2 (09:00→09:54)
[2016-09-02] MEDS: ONDANSETRON 4 MG INJ IV PRN (09:47)
--- NOTE | 2016-09-02 10:23 | PN ---
Date/Time of Note Date/Time of Note DATE: 09/02/16 TIME: : Assessment/Plan VTE Prophylaxis VTE Prophylaxis Intervention: LMWH Lines/Catheters IV Catheter Type (from Nrs): PICC Line Central line still needed: Yes (iv antibiotics) Urinary Cath still in place: Yes Reason Cath still needed: urinary retention Assessment/Plan Chief Complaint/Hosp Course Subjective: 56-year-old gentleman admitted to [place] with chest or back pain. Atypical. Dull substernal possibly worse with coughing. No fever or chest wall injury. There is some edema. Potentially renal failure CHF related. Seen by cardiology, troponins false positive. 2D echo done. He was optimized and stabilized for transfer. EF of 60%. No wall motion abnormalities. Poor R- wave progression through septal leads. Additionally seen by ID for subacute osteomyelitis. He was to continue antibiotics. Additionally seen by nephrology due to renal disease. Is on antibiotics but recently had AIN. Transferred here for continuity. -Still has chest pain, atypical. No BM since 4 days. Positive nausea, poor appetite and possibly dysuria. Objective: Vital signs stable Physical examination No pallor JVD adenopathy Regular, no murmur rub gallop Clear bilaterally Bowel sounds diminished, mild tender. Mild distended. No rigidity rebound guarding Extremities with edema left greater than right. No Homans sign. Assessment and plan 1. Atypical chest pain. Stable. Potential pleurisy. Ro DVT. 2. Ileus? Obtain KUB increased bowel care regimen. Avoid narcotics if possible. 3. Renal failure. Subacute AIN. Consult nephrology. If volume overload is present may need dialysis. Avoid PICC lines. 4. Diabetes/metabolic syndrome. Continue beta-cheli/risk factor modification 4. Chronic 5. Chronic osteomyelitis. Status post laminectomy. Stable continue wound care. Consult neurosurgery for staple care etc. Continue antibiotics 5. History of psoas muscle abscess. 7. Chronic COPD 8. Chronic hypothyroidism 9. BPH 10. Failure to thrive, transfer back to rehab soon 11. Left ear otitis externa? Problems: Exam/Review of Systems Vital Signs Vitals Vital Signs Date Time Temp Pulse Resp B/P Pulse Ox O2 Delivery O2 Flow Rate FiO2 09/02/16 07:10 97.5 61 18 113/63 97 09/01/16 20:00 2.0 09/01/16 17:54 Nasal Cannula Intake and Output 09/01/16 09/01/16 09/02/16 14:59 22:59 06:59 Intake Total 240 ml Output Total 70 ml Balance 170 ml Results Results 24 hrs Laboratory Tests Test 09/02/16 00:00 09/02/16 00:45 09/02/16 01:42 09/02/16 03:40 Bedside Glucose 63 L 77 73 86 Test 09/02/16 04:41 09/02/16 07:39 Bedside Glucose 82 86 Medications Medications Current Medications Bumetanide (Bumex) 1 mg DAILY PO ; Start 09/02/16 at 09:00 Carvedilol (Coreg) 6.25 mg BID PO ; Start 09/01/16 at 23:00 Ferrous Sulfate (Ferrous Sulfate (Ec)) 325 mg BID PO ; Start 09/02/16 at 09:00 Finasteride (Proscar) 5 mg DAILY PO ; Start 09/02/16 at 09:00 Lactobacillus Acidoph/Bulgaricus (Floranex) 1 tab TID PO ; Start 09/02/16 at 09: 00 Levothyroxine Sodium (Synthroid) 50 mcg DAILY@06 PO Last administered on t 06:33; Admin Dose 50 MCG; Start 09/02/16 at 06:00 Minoxidil (Loniten) 5 mg BID PO ; Start 09/02/16 at 09:00 Oxycodone/ Acetaminophen (Percocet (5/ 325)) maximum total acetaminop... Q4 PRN PO PAIN LEVEL 1-5; Start 09/01/16 at 23:00 Simethicone (Mylicon) 80 mg Q6H PRN PO DISTENSION/GAS/BLOATING; Start 09/01/16 at 23:00 Tamsulosin HCl (Flomax) 0.4 mg QHS PO ; Start 09/02/16 at 21:00 Zolpidem Tartrate (Ambien) 10 mg QHS PRN PO INSOMNIA; Start 09/01/16 at 23:00 Nifedipine (Procardia Xl) 30 mg BID PO ; Start 09/02/16 at 09:00 Heparin Sodium (Porcine) (Heparin (5000 Units/0.5 ml)) 5,000 unit Q12 SC ; Start 09/02/16 at 09:00 Famotidine (Pepcid) 20 mg BID PO ; Start 09/02/16 at 09:00 Morphine Sulfate (morphine) 3 mg Q4H PRN IV PAIN LEVEL 6-10 Last administered on 09/01/16t 23:56; Admin Dose 3 MG; Start 09/01/16 at 23:30 Ondansetron HCl (Zofran Inj) 4 mg Q6H PRN IV NAUSEA AND/OR VOMITING; Start 03/10 at 23:30 Diagnostic Test (Pha) (Accu-Chek) 1 ea 02 XX ; Start 09/02/16 at 02:00 Hydralazine HCl (Apresoline) 100 mg TID PO ; Start 09/01/16 at 23:00 Isosorbide Dinitrate (Isordil) 20 mg TID PO ; Start 09/01/16 at 23:00 Miscellaneous Information 1 ea NOTE XX ; Start 09/01/16 at 23:30 Glucose (Glutose) 15 gm Q15M PRN PO DECREASED GLUCOSE; Start 09/01/16 at 23:30 Glucose (Glutose) 22.5 gm Q15M PRN PO DECREASED GLUCOSE; Start 09/01/16 at 23: 30 Dextrose (D50w Syringe) 25 ml Q15M PRN IV DECREASED GLUCOSE; Start 09/01/16 at 23:30 Dextrose (D50w Syringe) 50 ml Q15M PRN IV DECREASED GLUCOSE; Start 09/01/16 at 23:30 Glucagon (Glucagen) 1 mg Q15M PRN IM DECREASED GLUCOSE; Start 09/01/16 at 23:30 Glucose 15 gm 15 gm Q15M PRN BUCCAL DECREASED GLUCOSE; Start 09/01/16 at 23:30 Albumin Human (Albumin Human 25%) 100 ml @ 100 mls/hr Q12 IV ; Start 09/02/16 at 09:46; Stop 09/02/16 at 21:59; Status JAN SHETH MD Sep 02, 2016 10:23
[2016-09-02] MEDS: ALBUMIN HUMAN 25% 100 ML IV SCH ×2 (10:57→22:00)
[2016-09-02] MEDS: FAMOTIDINE 20 MG INJ IV SCH (10:59)
--- NOTE | 2016-09-02 11:58 | RADRPT ---
PROCEDURE: US Lower extremity Venous. CLINICAL INDICATION: Bilateral lower extremity swelling TECHNIQUE: Multiple sonographic images of the bilateral lower extremity deep venous system was obt ained utilizing grayscale, color-flow, compressive sonography and doppler imaging with augmentation. The images were reviewed on a PACS workstation. COMPARISON: None. FINDINGS: There is normal compressibility and flow within the bilateral common femoral, superficial femoral , posterior tibial and popliteal veins. RPTAT: AA IMPRESSION: No sonographic evidence for deep venous thrombosis. .Dennis Ponce MD, MD Date Time Electronically viewed and signed by .Dennis Ponce MD, MD on 09/02/2016 11:58 .S/
[2016-09-02] MEDS: DEXTROSE 5%-0.45% NACL 1,000 ML IV SCH (13:08)
[2016-09-02] MEDS: BISACODYL 10 MG SUPP PR SCH (13:08)
[2016-09-02 13:18] VITALS: BP 123/59; PULSE 60
[2016-09-02] MEDS: morphine 4 MG/ML VIAL IV PRN (13:22)
--- NOTE | 2016-09-02 13:26 | HP ---
DATE OF ADMISSION: 09/01/2016 TIME SEEN: 2300 HISTORY OF PRESENT ILLNESS: The patient is a 56-year-old male with a history of hypertension, spin al osteomyelitis, status post laminectomy and spinal abscess, status post drainage, BPH, diabetes, i andrés deficiency anemia, who was transferred from outside hospital because of insurance reasons for f urther evaluation of his spine. The patient was actually admitted at [facility] after he was found to have a mildly elevated troponin of 0.15. EKG did not show any ischemic change. His creatinine w as 3.4. The patient is known to have chronic kidney disease. The patient recently was admitted he re in and had drainage of his spinal abscess and previously had a laminectomy. The CT of the lumbar spine at [facility] without contrast showed status post L2 to L3 laminectomy findings consistent wi th L2 to L3 diskitis and associated osteomyelitis in both vertebral bodies Also, air was noted in t he left renal collecting system and enlargement of the left psoas muscle compared to the right. The patient was evaluated by Dr. Paez from infectious disease, and after that, they made a determin ation that the patient would be best to treated at this facility where he had a previous laminectomy as well as his abscess drainage. On my questioning, the patient's only complaint is generalized we akness. Otherwise, he denied any fever or back pain. He is legally blind on the right side and he states that he can minimally see in the left eye. Examination of his back shows that the kelly ar e intact and no sign of infection or cellulitis was noted at the surgical site. Palpation also did not elicit any pain on my examination. REVIEW OF SYSTEMS: A 12-point review of systems was obtained and negative except as mentioned in HP I. PAST MEDICAL HISTORY: As per HPI. PAST SURGICAL HISTORY: As per HPI. ALLERGIES: NO KNOWN DRUG ALLERGIES. HOME MEDICATIONS: 1. Tamsulosin. 2. Ferrous sulfate. PHYSICAL EXAMINATION: VITAL SIGNS: Stable. GENERAL: The patient was initially sleepy but arousable. He appears somehow weak and speaking slow ly. HEENT: No obvious head deformity. He is legally blind in the right eye, and there is minimal swell ing around his right eye. CARDIOVASCULAR: Regular rate and rhythm. No extra heart sounds. LUNGS: Clear. ABDOMEN: Soft, nontender. No grimaces noted on palpation. Positive bowel sounds. EXTREMITIES: He has trace pitting edema. BACK: Pedicles are intact with no erythema. Palpitations also did not elicit any pain. IMAGING: CT of the lumbar spine from [facility] with results as mentioned in the HPI. IMPRESSION: 1. History of lumbar osteomyelitis, status post laminectomy. 2. History of spinal abscess status post recent stent and drainage. 3. Chronic kidney disease. 4. Hypertension. 5. Diabetes. 6. Benign prostatic hypertrophy. 7. History of iron deficiency anemia. 8. Right eye blindness. PLAN: We will have the neurosurgeon who is familiar with this case, Dr. Agosto, to evaluate him and comment on the CT of lumbar spine finding from [facility]. Note that the patient is not complaining of any pain and physical examination findings, does not show any infection. We will continue his h ome medication with adjustment as needed. We will provide pain medication as needed. Further workup and management per clinical course. Dictated By: GIOVANNI MCFADDEN/ERICKA Conf#: [id number] DID#: [id number]
--- NOTE | 2016-09-02 14:07 | RADRPT ---
PROCEDURE: XR Abdomen CLINICAL INDICATION: Pain, ileus? TECHNIQUE: An AP supine radiograph of the abdomen was submitted. COMPARISON: 01/01/2015 FINDINGS: Surgical kelly are now seen to extend vertically across the mid abdomen. The stomach is mildly distended with air and there is a general paucity of gas within the abdomen wi th the increased density raising the possibility of intraperitoneal fluid. No organomegaly or discrete mass is identified. Calcifications again projects in the right upper quadrant possibly representing nephroliths. Punctat e calcifications again project through the body and tail the pancreas suspicious for findings of chr onic pancreatitis. The osseous elements appear unremarkable. There is atelectasis or infiltrate seen through the heart within the left lower lobe and a suggestio n of a small left pleural fluid accumulation. IMPRESSION: 1. Interval abdominal surgery. 2. The paucity of gas with increased density seen through the abdomen suspicious for development of a intraperitoneal fluid. 3. Calcification seen within the right upper quadrant possibly representing nephroliths, unchanged. 4. Punctate calcifications are seen in the region of the body and tail the pancreas suspicious for chronic pancreatitis. 5. Interval development of atelectasis/infiltrate involving the left lower lobe with the suggestion of a small left pleural fluid accumulation. Physician Rocco Date Time Electronically viewed and signed by Physician Rocco on 09/02/2016 14:06 /
--- NOTE | 2016-09-02 14:18 | HP ---
DATE OF ADMISSION: 09/01/2016 CONSULTANTS: Dr. Mendoza, Renny Agosto. CHIEF COMPLAINT: Chest pain. HISTORY OF PRESENT ILLNESS: A 56-year-old gentleman who was recuperating in a rehab facility in [facility] who was admitted to [facility] with chest pain. Atypical chest pain appears nonexertiona l. No known aggravating or relieving factors, dull, substernal, possibly worse with coughing. No f ever or chest wall injury. He does have edema. He was seen by cardiology. Troponins were false po sitive, the 2D echo did not show any wall motion abnormalities. EF of 60. He was transferred here for continuity of care. Poor R-wave progression through septal leads. The recommendations are risk factor modification. Patient has edema. There is concern for renal failure related to fluid overload. May need dialysis at some point. He initially was additionally seen by infectious disease. He is being treated for subacute osteomye litis of his spine. He had surgery a few months ago and is on antibiotics. May need gabi remove d. Additionally had interstitial nephritis and a kidney biopsy, I believe at [place] in April. C oncern for etiology of PPI or cephalosporin. No bowel movement in 4 days. Positive nausea, poor appetite. Possible dysuria. Imaging concerning for ileus. NG removed. PAST MEDICAL HISTORY: 1. Diabetes. 2. Metabolic syndrome. 3. Chronic kidney disease. 4. Chronic lumbar osteomyelitis. 5. History of psoas muscle abscess. 6. Possible chronic obstructive pulmonary disease. 7. Chronic hypothyroidism. 8. Possible benign prostatic hypertrophy. 9. Failure to thrive. 10. Hypertension. 11. Urinary tract infection. 12. Left-sided otomastoiditis with history of antibiotic treatment. 13. Right eye debility of blindness due to retinal detachment. 14. Recurrent acute cystitis. SOCIAL HISTORY: No active tobacco or alcohol. Social alcohol use prior to admission PAST SURGICAL HISTORY: Laminectomy by Dr. Renny Agosto, I believe in May. REVIEW OF SYSTEMS: NEUROLOGICAL: No headache. No loss of speech or vision. CARDIOVASCULAR: Positive chest pain, positive edema. LUNGS: Positive dyspnea, edema, minimal cough. ABDOMEN: No pain, nausea, poor appetite, constipation. GENITOURINARY: Hematuria, abdominal pain, dysuria. MUSCULOSKELETAL: Mild to moderate gait dysfunction. No rash, no itching. Positive edema. HEMATOLOGIC: No hematochezia, melena, hematuria. CONSTITUTIONAL: Positive for probable weight gain, no fever or chills. PSYCHIATRY: The patient has a stable mood without significant agitation, anxiety, depression. ENDOCRINE: Positive diabetes, hypothyroidism, metabolic syndrome and possible dyslipidemia. PHYSICAL EXAMINATION: HEENT: Extraocular movements appear to be intact. No pallor, no icterus, no adenopathy, no carotid bruits, no JVD. No droop. CARDIOVASCULAR: S1, S2 appear to be regular. No murmur, rub, gallops appreciated. LUNGS: Diminished breath sounds bilaterally. ABDOMEN: Bowel sounds are diminished, mildly tender, mildly distended. No rigidity, no rebound or guarding. Positive flatus. EXTREMITIES: Without edema, left greater than right. Negative Homans sign, or erythema. BACK: No erythema, nontender. Gabi clean, ____. LABORATORIES: Pending. ASSESSMENT: 1. Chest pain, atypical, likely pleurisy or referred pain from ileus. No evidence of deep venous t hrombosis. 2. Possible ileus. Check KUB. Avoid narcotics and constipation. 3. Acute renal failure on chronic kidney disease subacute interstitial nephritis. Consult nephrolo gy. If indeed volume overload persists, may need dialysis. Avoid PICC lines. 4. History of interstitial nephritis. Avoid cephalosporins and Protonix. 5. Diabetes, metabolic syndrome. Continue risk factor modification. 6. Chronic osteomyelitis, status post laminectomy. Continue wound care. Will consult neurosurgery for staple care, etc. 7. History of psoas muscle abscess. The patient to continue antibiotics for both of the above issu es, I believe on vancomycin. 8. Possible chronic obstructive pulmonary disease. 9. Chronic hypothyroidism. 10. Chronic benign prostatic hypertrophy. 11. Failure to thrive. 12. History of left ear otitis. Continue supportive care. 13. See the orders. Dictated By: JAN BARNES/ERICKA Conf#: [id number] DID#: [id number] CC: NAE MENDOZA DO; ROBBI VICKERS MD; ROBBI STAFFORD M.D.; RENNY AGOSTO MD;*EndCC*
[2016-09-02 19:43] VITALS: BP 121/65; RESP 18
[2016-09-02] MEDS: TAMSULOSIN (SR) 0.4 MG CAP PO SCH (20:57)
[2016-09-02] MEDS: LACTULOSE 30ML CUP PO SCH (21:58)
[2016-09-03] MEDS: ACCU-CHEK XX SCH (02:00)
[2016-09-03] MEDS: morphine 4 MG/ML VIAL IV PRN ×3 (05:23→15:39)
[2016-09-03 05:46] LABS: ADD SCAN DIFF NO
[2016-09-03 05:54] LABS: BASOPHILS % 0.7 % (0.0-2.0); EOSINOPHILS # 0.2 10^3/ul (0.0-0.5); EOSINOPHILS % 4.7 % (0.0-7.0); HEMATOCRIT 27.3 % (42.0-52.0); HEMOGLOBIN 8.9 g/dl (14.0-18.0); LYMPHOCYTES % 21.6 % (15.0-51.0); MEAN CORPUSCULAR HEMOGLOBIN 30.8 pg (29.0-33.0); MEAN CORPUSCULAR HGB CONC 32.6 g/dl (32.0-37.0); MEAN CORPUSCULAR VOLUME 94.5 fl (82.0-101.0); MEAN PLATELET VOLUME 11.7 fl (7.4-10.4); MONOCYTE # 0.5 10^3/ul (0.3-0.9); MONOCYTES % 10.9 % (0.0-11.0); NEUTROPHIL # 2.8 10^3/ul (1.6-7.5); PLATELET COUNT 114 10^3/UL (140-415); RED BLOOD COUNT 2.89 10^6/ul (4.70-6.10); RED CELL DISTRIBUTION WIDTH 16.1 % (11.5-14.5); WHITE BLOOD COUNT 4.5 10^3/ul (4.8-10.8)
[2016-09-03] MEDS ORDERED: LEVOTHYROXINE 100 MCG VIAL IV SCH (06:00)
[2016-09-03 06:01] LABS: INR 1.4; PROTIME 17.2 Sec (12.2-14.2); PT RATIO 1.3
[2016-09-03 06:02] LABS: PARTIAL THROMBOPLASTIN TIME 39.8 Sec (25.0-35.0)
[2016-09-03 06:02] LABS: ALBUMIN 3.4 g/dl (3.3-4.9)
[2016-09-03 06:03] LABS: CHLORIDE 106 mmol/L (97-110); SODIUM 138 mmol/L (135-144)
[2016-09-03 06:05] LABS: ANION GAP 18 (8-16); ASPARTATE AMINO TRANSFERASE 12 IU/L (15-46); CARBON DIOXIDE 18 mmol/L (21-31); CREATININE 5.62 mg/dl (0.61-1.24)
[2016-09-03 06:06] LABS: ALANINE AMINOTRANSFERASE 27 IU/L (13-69); ALBUMIN/GLOBULIN RATIO 0.94; ALKALINE PHOSPHATASE 44 IU/L (42-121); BLOOD UREA NITROGEN 67 mg/dl (7-20); CALCIUM 7.3 mg/dl (8.4-10.2); CHOLESTEROL 88 mg/dl (100-200); GLUCOSE 78 mg/dl (70-220); PHOSPHORUS 10.5 mg/dl (2.5-4.9); TRIGLYCERIDES 77 mg/dl (0-149)
[2016-09-03 06:07] LABS: CHOL/HDL RATIO 1.8 RATIO; HDL CHOLESTEROL 48 mg/dl (28-71); MAGNESIUM 2.6 mg/dl (1.7-2.5)
[2016-09-03 07:48] VITALS: BP 124/79; RESP 18
[2016-09-03] MEDS: INSULIN ASPART [NOVOLOG] 3 ML PEN SC SCH ×4 (08:00→21:00)
[2016-09-03] MEDS: FAMOTIDINE 20 MG INJ IV SCH (09:32)
[2016-09-03] MEDS: DEXTROSE 5%-0.45% NACL 1,000 ML IV SCH (09:32)
[2016-09-03] MEDS: HEPARIN 5,000 UNIT/0.5 ML VIAL SC SCH ×2 (09:33→21:04)
[2016-09-03] MEDS: BISACODYL 10 MG SUPP PR SCH (09:34)
[2016-09-03] MEDS: LACTOBACILLUS CHEW TAB PO SCH ×3 (09:37→21:01)
[2016-09-03] MEDS: LACTULOSE 30ML CUP PO SCH ×2 (09:38→21:07)
[2016-09-03] MEDS: MINOXIDIL 2.5 MG TAB PO SCH ×2 (09:38→21:02)
[2016-09-03] MEDS: BUMETANIDE 1 MG TAB PO SCH (09:38)
[2016-09-03] MEDS: ISOSORBIDE DINITRATE 20 MG TAB PO SCH ×3 (09:38→21:06)
[2016-09-03] MEDS: FINASTERIDE 5 MG TAB PO SCH (09:38)
[2016-09-03] MEDS: SEVELAMER 800 MG TAB PO SCH ×2 (11:24→17:26)
[2016-09-03] MEDS: FUROSEMIDE 40 MG INJ IV SCH ×2 (11:29→17:27)
[2016-09-03 11:31] VITALS: BP 122/64; PULSE 59
[2016-09-03] MEDS ORDERED: EPOETIN 4000 UNITS/1 ML INJ (ESRD) SC ONE (13:00)
--- NOTE | 2016-09-03 13:00 | CONS ---
DATE OF ADMISSION: 09/01/2016 DATE OF CONSULTATION: 09/03/2016 REASON FOR CONSULTATION: Acute kidney injury. REQUESTING PHYSICIAN: Dr. Burnett HISTORY OF PRESENT ILLNESS: This is a 56-year-old male with a past medical history of CKD stage IV with a baseline creatinine around 3.0 mg/dL with estimated GFR around 20 mL per minute. Etiology of CKD is secondary to diabetic nephropathy. The patient also has a history of hypertension, history of spinal osteomyelitis, history of BPH, history of diabetic retinopathy, history of anemia, who ini esvin presented to an outside hospital with chest pain. The patient was admitted to [facility], found to have elevated troponin 0.15. EKG did not show any ischemic changes. The patient at that time had a creatinine of 3.4. During this hospital course, the patient was seen by an infecti ous disease specialist and a CT scan of the lumber spine was obtained which showed evidence of L2-L3 laminectomy and the findings consistent with diskitis, osteomyelitis. The patient was subsequently transferred over to [facility] for continued care as he has had previous surgery here and previous spinal abscess drainage in the past. In terms of patient's renal history, during this hospital course at [place], the patient's creatinin e increased to 5.6 mg/dL. This was felt to be secondary to possible acute tubular necrosis, questio nable interstitial nephritis. The patient was followed by Nephrology over there at that time, and t he patient did not wish to have a renal biopsy which was felt to be high risk given the patient's cl inical comorbidities. The patient is complaining of some general weakness and fatigue. He has some mild nausea. Denies any hemoptysis, hemetemesis, hematochezia. PAST MEDICAL HISTORY: As stated above, history of chronic kidney disease stage IV, history of diabe tic nephropathy, history of hypertension, diabetes, history of BPH. PAST SURGICAL HISTORY: He has a history of laminectomy. ALLERGIES: NO KNOWN DRUG ALLERGIES. FAMILY HISTORY: Noncontributory. SOCIAL HISTORY: He does not drink, smoke or do drugs. MEDICATIONS: The patient's medications have been reviewed. REVIEW OF SYSTEMS: A 14-point review of systems was conducted. Pertinent positives in HPI, otherwi se negative. PHYSICAL EXAMINATION: VITAL SIGNS: Blood pressure 124/79, respiration 18, pulse 68, temperature 97.4. HEENT: Head is normocephalic. Pupils are reactive to light. NECK: Supple. HEART: Regular rate. LUNGS: Show diminished breath sounds at base. ABDOMEN: Soft, nontender to palpation. No rebound or guarding. EXTREMITIES: Negative for clubbing, cyanosis. Positive +4 edema. DERMATOLOGIC: No rashes. MUSCULOSKELETAL: No joint effusions. NEUROLOGIC: Limited exam, but no obvious focal deficits. LABORATORY DATA: Shows sodium 130, potassium 4.0, chloride 106, BUN 67, creatinine 5.62. Hemoglobi n A1c 6.0, phosphorus 7.5, magnesium 2.6. White count 4.5, hemoglobin 8.9, hematocrit 27.3, platele t count 114 and TSH levels 20. The patient's Doppler ultrasound was negative for DVT. ASSESSMENT AND PLAN: This is a 56-year-old male who presents with: 1. Nonoliguric acute kidney injury on top of chronic kidney disease stage IV with previous baseline creatinine around 3 mg/dL. Etiology of acute kidney injury is believed to be secondary to acute tu bular necrosis with questionable interstitial nephritis. The patient remains in maintenance phase o f acute tubular necrosis. Patient also is experiencing some mild uremic symptoms of nausea, weakne ss. Plan at this point is to repeat a urinalysis. Will check urine electrolytes and quantify the p atient's proteinuria. We will also repeat a renal ultrasound to definitively rule out any form of o bstruction. We will stop patient's IV fluids. Will start the patient on Lasix 40 mg IV q.12h. We will monitor renal function closely. If there is no significant improvement in renal function over the next 24 to 48 hours will likely initiate hemodialysis for solute clearance and volume removal. 2. Metabolic acidosis secondary to acute kidney injury/chronic kidney disease. Plan is to monitor bicarbonate levels. No need for bicarbonate therapy at this time. 3. Hypertension in part due to chronic kidney disease, increased intravascular volume. Plan is to start the patient diuretic therapy. Continue current blood pressure regimen. We will monitor close ly. 4. Mineral bone disorder. The patient is hyperphosphatemic with a phosphorus level of 7.5. Will s tart the patient on phos binders, Renagel. If phosphorus levels do not improved, the patient will b e initiated on hemodialysis. 5. Hypomagnesemia secondary to acute kidney injury. Continue to monitor. 6. Anemia of chronic disease. Will monitor hemoglobin and hematocrit levels. Will give Epogen 10, 000 units x1. 6. Lumbar osteomyelitis, status post laminectomy. Will continue to monitor. The patient was previ ously on antibiotic therapy. We will follow up with primary team, may consider surgical evaluation. 7. Diabetes. Continue Accu-Cheks and sliding scale. 8. Benign prostatic hypertrophy. Continue current medical management. 9. Right eye blindness with diabetic retinopathy. Continue to monitor. Thank you, Dr. Burnett for this interesting consultation. It will be a pleasure to follow lupillo nt with you throughout the hospital course. Dictated By: NAE MENDOZA DO NR/ERICKA Conf#: [id number] DID#: [id number]
[2016-09-03] MEDS ORDERED: SIMETH/SOD BICARB/CIT AC PKT (E-Z- GAS II) PO ONE (13:09)
[2016-09-03] MEDS ORDERED: BARIUM SULFATE 135 ML (E-Z HD) PO ONE (13:09)
--- NOTE | 2016-09-03 14:43 | RADRPT ---
PROCEDURE: Renal US. CLINICAL INDICATION: Acute kidney injury. TECHNIQUE: Multiple sonographic images of the kidneys and urinary bladder were obtained. The imag es were reviewed on a PACS workstation. COMPARISON: No prior studies are available for comparison. FINDINGS: The right kidney measures 12.2 x 6.0 x 5.2 cm. The left kidney measures 11.0 x 4.8 x 4.8 cm. There is no renal mass. There is no hydronephrosis. There is no renal calculus. Renal parenchymal thickness is normal bilaterally. Both kidneys are hyperechoic consistent with medical renal disease. There is moderate free fluid in the abdomen. There are bilateral pleural effusions. There is a Cox catheter in the urinary bladder and there is bladder wall thickening. IMPRESSION: 1. Bilateral hyperechoic kidneys consistent with medical renal disease. No hydronephrosis. 2. Moderate free fluid in the abdomen. 3. Bilateral pleural effusions. 4. Cox catheter in the bladder. 5. Bladder wall thickening. RPTAT: QQ .Umang Dale MD, MD Date Time Electronically viewed and signed by .Umang Dale MD, on 09/03/2016 14:43 .R/
--- NOTE | 2016-09-03 14:54 | PN ---
Date/Time of Note Date/Time of Note DATE: 09/03/16 TIME: 14:48 Assessment/Plan VTE Prophylaxis VTE Prophylaxis Intervention: heparin Lines/Catheters IV Catheter Type (from Nrs): PICC Line Central line still needed: Yes (Antibiotics) Urinary Cath still in place: Yes Reason Cath still needed: urinary retention, other (indicate) (Renal failure) Assessment/Plan Chief Complaint/Hosp Course Subjective: 56-yrM w chest or back pain. Atypical/ Dull substernal possibly worse w coughing. No fever or chest wall injury. There is some edema. Potentially renal failure CHF related. Seen by cardiology, troponins false. 2D echo done. He was optimized and stabilized for transfer. EF of 60%. No wma's. Poor R-wave progression through septal leads. Seen by ID for subacute OM; to cont atb's. Seen by nephrology due to renal dz. Is on antibiotics but recently had AIN? Transferred here for continuity. -Still has chest pain, atypical. No BM since 4 days. Positive nausea, poor appetite and possibly dysuria. 09/03ill with GI symptoms. O: Vss PE No pallor JVD Reg, no m/r/g Ctab Bs dimin, mild tender. Mild distended. No r/r/g Ext w edema lt > rt. No Homans sign. A/P 1. Atypical chest pain. Stable. Potential pleurisy. Ro DVT. 2. Ileus? KUB; increase bowel care regimen. Avoid narcotics if possible. For CT. 3. ARF. Subacute ATN/ AIN?. May need hd. Avoid PICCs. 4. DM/metabolic syndrome. Continue beta-cheli/risk factor modification 5. Chr OM. Sp laminectomy. Cont wound care. NS for staple care. Cont antibiotics 5. History of psoas muscle abscess. 7. Chronic COPD 8. Chronic hypothyroidism 9. BPH 10. Failure to thrive, transfer back to rehab soon 11. Left ear otitis externa? Problems: Exam/Review of Systems Vital Signs Vitals Vital Signs Date Time Temp Pulse Resp B/P Pulse Ox O2 Delivery O2 Flow Rate FiO2 09/03/16 11:31 59 122/64 09/03/16 07:48 97.4 18 94 09/02/16 20:00 2.0 09/01/16 17:54 Nasal Cannula Intake and Output 09/02/16 09/02/16 09/03/16 15:00 23:00 07:00 Intake Total 100 ml 120 ml 950 ml Output Total 50 ml 75 ml Balance 100 ml 70 ml 875 ml Results Result Diagram: 09/03/16 0516 09/03/16 0513 Results 24 hrs Laboratory Tests Test 09/02/16 16:32 09/02/16 16:52 09/02/16 17:17 09/02/16 17:57 Bedside Glucose 68 L 79 71 84 Test 09/02/16 20:17 09/03/16 05:13 09/03/16 05:16 09/03/16 08:10 Bedside Glucose 96 83 Sodium Level 138 Potassium Level 4.0 Chloride Level 106 Carbon Dioxide Level 18 L Anion Gap 18 H Blood Urea Nitrogen 67 H Creatinine 5.62 H Glucose Level 78 Calcium Level 7.3 L Phosphorus Level 10.5 H Magnesium Level 2.6 H Total Bilirubin 0.0 L Direct Bilirubin 0.00 Indirect Bilirubin 0.0 Aspartate Amino Transf (AST/SGOT) 12 L Alanine Aminotransferase (ALT/SGPT) 27 Alkaline Phosphatase 44 Total Protein 7.0 Albumin 3.4 Globulin 3.60 H Albumin/Globulin Ratio 0.94 Triglycerides Level 77 Cholesterol Level 88 L LDL Cholesterol, Calculated 25 HDL Cholesterol 48 Cholesterol/HDL Ratio 1.8 Lipase < 10 L Thyroid Stimulating Hormone (TSH) 20.700 H White Blood Count 4.5 #L Red Blood Count 2.89 L Hemoglobin 8.9 L Hematocrit 27.3 L Mean Corpuscular Volume 94.5 Mean Corpuscular Hemoglobin 30.8 Mean Corpuscular Hemoglobin Concent 32.6 Red Cell Distribution Width 16.1 H Platelet Count 114 #L Mean Platelet Volume 11.7 H Neutrophils % 61.0 Lymphocytes % 21.6 Monocytes % 10.9 Eosinophils % 4.7 Basophils % 0.7 Nucleated Red Blood Cells % 0.0 Neutrophils # 2.8 Lymphocytes # 1.0 Monocytes # 0.5 Eosinophils # 0.2 Basophils # 0.0 Nucleated Red Blood Cells # 0.0 Prothrombin Time 17.2 H Prothrombin Time Ratio 1.3 INR International Normalized Ratio 1.40 Activated Partial Thromboplast Time 39.8 H Hemoglobin A1c 6.0 H Test 09/03/16 11:28 Bedside Glucose 81 Medications Medications Current Medications Carvedilol (Coreg) 6.25 mg BID PO Last administered on 09/03/16 09:37; Admin Dose 6.25 MG; Start 09/01/16 at 23:00 Finasteride (Proscar) 5 mg DAILY PO Last administered on 09/03/16 09:38; Admin Dose 5 MG; Start 09/02/16 at 09:00 Lactobacillus Acidoph/Bulgaricus (Floranex) 1 tab TID PO Last administered on 09:37; Admin Dose 1 TAB; Start 09/02/16 at 09:00 Minoxidil (Loniten) 5 mg BID PO Last administered on 09/03/16 09:38; Admin Dose 5 MG; Start 09/02/16 at 09:00 Oxycodone/ Acetaminophen (Percocet (5/ 325)) maximum total acetaminop... Q4 PRN PO PAIN LEVEL 1-5; Start 09/01/16 at 23:00 Simethicone (Mylicon) 80 mg Q6H PRN PO DISTENSION/GAS/BLOATING; Start 09/01/16 at 23:00 Tamsulosin HCl (Flomax) 0.4 mg QHS PO Last administered on 09/02/16 20:57; Admin Dose 0.4 MG; Start 09/02/16 at 21:00 Heparin Sodium (Porcine) (Heparin (5000 Units/0.5 ml)) 5,000 unit Q12 SC Last administered on 09/03/16 09:33; Admin Dose 5,000 UNIT; Start 09/02/16 at 09:00 Morphine Sulfate (morphine) 3 mg Q4H PRN IV PAIN LEVEL 6-10 Last administered on 09/03/16 09:47; Admin Dose 3 MG; Start 09/01/16 at 23:30 Ondansetron HCl (Zofran Inj) 4 mg Q6H PRN IV NAUSEA AND/OR VOMITING Last administered on 09/02/16 09:47; Admin Dose 4 MG; Start 09/01/16 at 23:30 Diagnostic Test (Pha) (Accu-Chek) 1 ea 02 XX ; Start 09/02/16 at 02:00 Isosorbide Dinitrate (Isordil) 20 mg TID PO Last administered on 09/03/16 09: 38; Admin Dose 20 MG; Start 09/01/16 at 23:00 Miscellaneous Information 1 ea NOTE XX ; Start 09/01/16 at 23:30 Glucose (Glutose) 15 gm Q15M PRN PO DECREASED GLUCOSE; Start 09/01/16 at 23:30 Glucose (Glutose) 22.5 gm Q15M PRN PO DECREASED GLUCOSE; Start 09/01/16 at 23: 30 Dextrose (D50w Syringe) 25 ml Q15M PRN IV DECREASED GLUCOSE; Start 09/01/16 at 23:30 Dextrose (D50w Syringe) 50 ml Q15M PRN IV DECREASED GLUCOSE; Start 09/01/16 at 23:30 Glucagon (Glucagen) 1 mg Q15M PRN IM DECREASED GLUCOSE; Start 09/01/16 at 23:30 Glucose (Glutose) 15 gm Q15M PRN BUCCAL DECREASED GLUCOSE; Start 09/01/16 at 23 :30 Bisacodyl (Dulcolax Supp) 10 mg DAILY SC Last administered on 09/03/16 09:34; Admin Dose 10 MG; Start 09/02/16 at 10:30; Stop 09/03/16 at 23:00 Lactulose (Enulose) 30 gm BID PO Last administered on 09/03/16 09:38; Admin Dose 30 GM; Start 09/02/16 at 21:00 Miscellaneous Information (*Rx Drug Level Order Reminder*) RANDOM VANCOMYCIN LEVEL 4... ONCE ONCE XX ; Start 09/04/16 at 05:00; Stop 09/04/16 at 05:01 Famotidine (Pepcid) 20 mg DAILY PO ; Start 09/04/16 at 09:00 Levothyroxine Sodium (Synthroid Iv) 75 mcg DAILY@06 IV ; Start 09/04/16 at 06:00 ; Status JAN SHETH MD Sep 03, 2016 14:54
[2016-09-03] MEDS ORDERED: BARIUM SULF 2% 450 ML BTL (BERRY SMOOTHIE) PO ONE (15:00)
--- NOTE | 2016-09-03 15:20 | RADRPT ---
PROCEDURE: XR Abdomen. CLINICAL INDICATION: Abdomen pain. TECHNIQUE: AP supine abdomen x-ray. COMPARISON: 09/02/2016. FINDINGS: There are vertical midline skin kelly. There is gaseous distension of the stomach. There is no ev idence of bowel obstruction. Vascular calcifications are present consistent with atherosclerosis. There are no abnormal calcifications overlying the urinary tracts. There has been prior spine surgery with bilateral laminectomy at L2 and L3. IMPRESSION: 1. Vertical midline skin kelly. 2. Gaseous distension of the stomach. 3. Atherosclerosis. 4. Prior spine surgery. RPTAT: QQ .Umang Dale MD, MD Date Time Electronically viewed and signed by .Umang Dale MD, on 09/03/2016 15:19 .R/
[2016-09-03 16:47] VITALS: BP 120/75
--- NOTE | 2016-09-03 17:25 | RADRPT ---
PROCEDURE: CT abdomen and pelvis without contrast. CLINICAL INDICATION: Abdominal distension TECHNIQUE: CT scan of the abdomen and pelvis without contrast was performed and is reconstructed a t 2.5 mm contiguous axial intervals from the dome of the diaphragm to the inferior pubic rami.. The patient was scanned without intravenous contrast. Sagittal and coronal reformatted images were obt ained from the axial source images. The calculated radiation dose measures 1059 mGy centimeters. The CTDI measures 15 mGy. COMPARISON: CT abdomen and pelvis August 02, 2015 FINDINGS: There are small to moderate-sized bilateral pleural effusions and a small pericardial effusion. Ate lectasis is seen in the dependent portion of both lower lobes. No alveolar infiltrate or mass is pr esent. The liver is of normal size, contour and attenuation with no mass or ductal dilatation. No gallston es are visualized. No splenic or adrenal abnormalities present. there are coarse calcifications in the pancreas compatible with chronic pancreatitis. No mass is visualized. Kidneys are of normal size and contour. No hydronephrosis or masses seen. There are calcifications within the renal arteries and branches compatible with diabetic vasculopathy. Noted is an 8 mm non obstructing right renal calculus. Ureters are of normal course and caliber with no stone. Cox cath eter is seen in an empty urinary bladder. . Prostate and seminal vesicles are normal. There is no aneurysm. No adenopathy is present. No bowel mass or obstruction is present. The appendix is normal. No phlegmon, ascites or pneumop eritoneum is visualized. Noted is dense sclerosis of the L3 vertebral body. There is cortical destruction of the endplates s urrounding the L2-L3 disk space. It is unclear if this is related to longstanding degenerative dise ase or if there is underlying chronic diskitis with osteomyelitis. This was not present on the prio r exam. The patient is status post multilevel lumbar laminectomy. The osseous structures are otherwi se intact. IMPRESSION: No evidence of obstructive uropathy, diverticulitis or appendicitis. Right renal calculus. 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 Bilateral pleural effusions and small pericardial effusion. Bibasilar atelectasis. Chronic pancreatitis. Mild anasarca. .Lev Salazar MD, Date Time Electronically viewed and signed by .Lev Salazar MD, MD on 09/03/2016 17:25 .A/
[2016-09-03] MEDS: OXYCODONE/ACETAMINOPHEN (5/325) TAB PO PRN ×2 (17:34→22:08)
[2016-09-03 20:59] VITALS: BP 114/66; RESP 20
[2016-09-03] MEDS: TAMSULOSIN (SR) 0.4 MG CAP PO SCH (21:05)
[2016-09-03 23:18] LABS: ADD UMIC YES; URINE BILIRUBIN (Dip) NEGATIVE (NEGATIVE); URINE BLOOD (Dip) 3+ (NEGATIVE); URINE COLOR LT. YELLOW (YELLOW); URINE GLUCOSE (Dip) NEGATIVE (NEGATIVE); URINE KETONES (Dip) NEGATIVE (NEGATIVE); URINE LEUKOCYTE ESTERASE (Dip) 3+ (NEGATIVE); URINE NITRITE (Dip) NEGATIVE (NEGATIVE); URINE TOTAL PROTEIN (Dip) 1+ (NEGATIVE); URINE UROBILINOGEN (Dip) 0.2 E.U./dL (0.1-1.0)
[2016-09-03 23:33] LABS: BACTERIA,URINE MODERATE; SQUAMOUS EPITHELIAL CELL,UR FEW
[2016-09-04] VITALS (8 sets, daily range): BP systolic 112–134; BP diastolic 51–69; PULSE 56–63; RESP 16–20
[2016-09-04] MEDS: ACCU-CHEK XX SCH (02:00)
[2016-09-04 05:28] LABS: ADD SCAN DIFF NO; HAAIG REFLEX REFLEX FILED
[2016-09-04 05:35] LABS: ABNORMAL IP MESSAGE 1; BASOPHILS % 0.6 % (0.0-2.0); EOSINOPHILS # 0.2 10^3/ul (0.0-0.5); EOSINOPHILS % 6.5 % (0.0-7.0); HEMATOCRIT 27.4 % (42.0-52.0); HEMOGLOBIN 8.8 g/dl (14.0-18.0); LYMPHOCYTES % 30.4 % (15.0-51.0); MEAN CORPUSCULAR HGB CONC 32.1 g/dl (32.0-37.0); MEAN CORPUSCULAR VOLUME 93.5 fl (82.0-101.0); MEAN PLATELET VOLUME 10.6 fl (7.4-10.4); MONOCYTE # 0.3 10^3/ul (0.3-0.9); MONOCYTES % 9.9 % (0.0-11.0); NEUTROPHIL # 1.7 10^3/ul (1.6-7.5); NEUTROPHILS % 51.4 % (39.0-77.0); PLATELET COUNT 96 10^3/UL (140-415); RED BLOOD COUNT 2.93 10^6/ul (4.70-6.10); RED CELL DISTRIBUTION WIDTH 16.1 % (11.5-14.5); WHITE BLOOD COUNT 3.2 10^3/ul (4.8-10.8)
[2016-09-04 05:50] LABS: CREATININE 5.57 mg/dl (0.61-1.24); MAGNESIUM 2.6 mg/dl (1.7-2.5); PHOSPHORUS 10.6 mg/dl (2.5-4.9); POTASSIUM 4.2 mmol/L (3.5-5.1)
[2016-09-04] MEDS: FUROSEMIDE 40 MG INJ IV SCH ×2 (06:06→17:11)
[2016-09-04] MEDS: LEVOTHYROXINE 100 MCG VIAL IV SCH (06:07)
[2016-09-04] MEDS: morphine 4 MG/ML VIAL IV PRN ×3 (06:17→21:16)
[2016-09-04 06:43] LABS: HEPATITIS B CORE ANTIBODY NEGATIVE (NEGATIVE)
[2016-09-04] MEDS: INSULIN ASPART [NOVOLOG] 3 ML PEN SC SCH ×4 (08:00→20:11)
[2016-09-04] MEDS: LACTULOSE 30ML CUP PO SCH ×2 (08:25→20:10)
[2016-09-04] MEDS: MINOXIDIL 2.5 MG TAB PO SCH ×2 (08:26→20:10)
[2016-09-04] MEDS: SEVELAMER 800 MG TAB PO SCH ×3 (08:27→17:10)
[2016-09-04] MEDS: FAMOTIDINE 20 MG TAB PO SCH (08:27)
[2016-09-04] MEDS: LACTOBACILLUS CHEW TAB PO SCH ×2 (08:27→20:10)
[2016-09-04] MEDS: FINASTERIDE 5 MG TAB PO SCH (08:27)
[2016-09-04] MEDS: ISOSORBIDE DINITRATE 20 MG TAB PO SCH ×3 (08:28→20:10)
[2016-09-04] MEDS: HEPARIN 5,000 UNIT/0.5 ML VIAL SC SCH ×3 (08:29→20:12)
--- NOTE | 2016-09-04 09:45 | PN ---
Date/Time of Note Date/Time of Note DATE: 09/04/16 TIME: 09:42 Assessment/Plan VTE Prophylaxis VTE Prophylaxis Intervention: heparin Lines/Catheters IV Catheter Type (from Nrsg): PICC Line Central line still needed: Yes (iv antibiotics) Urinary Cath still in place: Yes Reason Cath still needed: other (indicate) (renal failure/ wound) Assessment/Plan Chief Complaint/Hosp Course Subjective: 56-yrM w chest or back pain. Atypical/ Dull substernal possibly worse w coughing. No fever or chest wall injury. There is some edema. Potentially renal failure CHF related. Seen by cardiology, troponins false. 2D echo done. He was optimized and stabilized for transfer. EF of 60%. No wma's. Poor R-wave progression through septal leads. Seen by ID for subacute OM; to cont atb's. Seen by nephrology due to renal dz. Is on antibiotics but recently had AIN? Transferred here for continuity. -Still has chest pain, atypical. No BM since 4 days. Positive nausea, poor appetite and possibly dysuria. 09/03still with GI symptoms. 09/04 no events. U/o a little more. sp abd CT O: Vss PE No pallor Reg, no m/r/g Ctab Bs dimin, nt. Mild distended. No r/r/g Ext w edema lt > rt. No Homans sign. A/P 1. Atypical chest pain. Stable. Potential pleurisy. no DVT. 2. Ileus? KUB; increase bowel care regimen. Avoid narcotics if possible. For CT. 3. ARF. Subacute ATN/ AIN?. May need hd. Avoid PICCs. 4. DM/metabolic syndrome. Cont bb/risk factor modification 5. Chr OM. Sp laminectomy. Cont wound care. NS for staple care. Cont atb's 5. Ho psoas muscle abscess. 7. Chr COPD 8. Chr hypothyroidism 9. BPH 10. Ftt, transfer back to rehab soon 11. Lt ear otitis externa? Problems: Exam/Review of Systems Vital Signs Vitals Vital Signs Date Time Temp Pulse Resp B/P Pulse Ox O2 Delivery O2 Flow Rate FiO2 09/04/16 08:21 98.0 59 20 120/66 99 09/03/16 20:10 2.0 09/01/16 17:54 Nasal Cannula Intake and Output 09/03/16 09/03/16 09/04/16 15:00 23:00 07:00 Intake Total 50 ml 120 ml Output Total 150 ml Balance 50 ml -30 ml Results Result Diagram: 09/04/16 0500 09/04/16 0500 Results 24 hrs Laboratory Tests Test 09/03/16 11:28 09/03/16 16:42 09/03/16 21:05 09/03/16 22:55 Bedside Glucose 81 86 74 Urine Color LT. YELLOW Urine Clarity HAZY Urine pH 5.0 Urine Specific [place] 1.020 Urine Ketones NEGATIVE Urine Nitrite NEGATIVE Urine Bilirubin NEGATIVE Urine Urobilinogen 0.2 E.U./dL Urine Leukocyte Esterase 3+ H Urine Microscopic RBC 5-10 Urine Microscopic WBC >200 Urine Squamous Epithelial Cells FEW Urine Bacteria MODERATE Urine Yeast MANY Urine Hemoglobin 3+ H Urine Random Creatinine 72.52 Urine Random Sodium 70 Urine Glucose NEGATIVE Urine Total Protein 97.0 H Test 09/04/16 02:15 09/04/16 05:00 09/04/16 08:06 Bedside Glucose 85 71 White Blood Count 3.2 #L Red Blood Count 2.93 L Hemoglobin 8.8 L Hematocrit 27.4 L Mean Corpuscular Volume 93.5 Mean Corpuscular Hemoglobin 30.0 Mean Corpuscular Hemoglobin Concent 32.1 Red Cell Distribution Width 16.1 H Platelet Count 96 L Mean Platelet Volume 10.6 H Neutrophils % 51.4 Lymphocytes % 30.4 Monocytes % 9.9 Eosinophils % 6.5 Basophils % 0.6 Nucleated Red Blood Cells % 0.0 Neutrophils # 1.7 Lymphocytes # 1.0 Monocytes # 0.3 Eosinophils # 0.2 Basophils # 0.0 Nucleated Red Blood Cells # 0.0 Sodium Level 136 Potassium Level 4.2 Chloride Level 109 Carbon Dioxide Level 16 L Anion Gap 15 Blood Urea Nitrogen 66 H Creatinine 5.57 H Glucose Level 71 Calcium Level 7.0 L Phosphorus Level 10.6 H Magnesium Level 2.6 H Random Vancomycin Level 26.6 Hepatitis B Surface Antigen NEGATIVE Hepatitis B Core Total Antibody NEGATIVE Hepatitis C Antibody REACTIVE H Medications Medications Current Medications Carvedilol (Coreg) 6.25 mg BID PO Last administered on 09/03/16t 21:07; Admin Dose 6.25 MG; Start 09/01/16 at 23:00 Finasteride (Proscar) 5 mg DAILY PO Last administered on 09/04/16 08:27; Admin Dose 5 MG; Start 09/02/16 at 09:00 Lactobacillus Acidoph/Bulgaricus (Floranex) 1 tab TID PO Last administered on 08:27; Admin Dose 1 TAB; Start 09/02/16 at 09:00 Minoxidil (Loniten) 5 mg BID PO Last administered on 09/04/16 08:26; Admin Dose 5 MG; Start 09/02/16 at 09:00 Oxycodone/ Acetaminophen (Percocet (5/ 325)) maximum total acetaminop... Q4 PRN PO PAIN LEVEL 1-5 Last administered on 09/03/16 22:08; Admin Dose 1 TAB; Start 09/01/16 at 23:00 Simethicone (Mylicon) 80 mg Q6H PRN PO DISTENSION/GAS/BLOATING; Start 09/01/16 at 23:00 Tamsulosin HCl (Flomax) 0.4 mg QHS PO Last administered on 09/03/16 21:05; Admin Dose 0.4 MG; Start 09/02/16 at 21:00 Heparin Sodium (Porcine) (Heparin (5000 Units/0.5 ml)) 5,000 unit Q12 SC Last administered on 09/03/16 21:04; Admin Dose 5,000 UNIT; Start 09/02/16 at 09:00 Morphine Sulfate (morphine) 3 mg Q4H PRN IV PAIN LEVEL 6-10 Last administered on 09/04/16 06:17; Admin Dose 3 MG; Start 09/01/16 at 23:30 Ondansetron HCl (Zofran Inj) 4 mg Q6H PRN IV NAUSEA AND/OR VOMITING Last administered on 09/02/16 09:47; Admin Dose 4 MG; Start 09/01/16 at 23:30 Diagnostic Test (Pha) (Accu-Chek) 1 ea 02 XX ; Start 09/02/16 at 02:00 Isosorbide Dinitrate (Isordil) 20 mg TID PO Last administered on 09/03/16 21: 06; Admin Dose 20 MG; Start 09/01/16 at 23:00 Miscellaneous Information 1 ea NOTE XX ; Start 09/01/16 at 23:30 Glucose (Glutose) 15 gm Q15M PRN PO DECREASED GLUCOSE; Start 09/01/16 at 23:30 Glucose (Glutose) 22.5 gm Q15M PRN PO DECREASED GLUCOSE; Start 09/01/16 at 23: 30 Dextrose (D50w Syringe) 25 ml Q15M PRN IV DECREASED GLUCOSE; Start 09/01/16 at 23:30 Dextrose (D50w Syringe) 50 ml Q15M PRN IV DECREASED GLUCOSE; Start 09/01/16 at 23:30 Glucagon (Glucagen) 1 mg Q15M PRN IM DECREASED GLUCOSE; Start 09/01/16 at 23:30 Glucose (Glutose) 15 gm Q15M PRN BUCCAL DECREASED GLUCOSE; Start 09/01/16 at 23 :30 Lactulose (Enulose) 30 gm BID PO Last administered on 09/04/16 08:25; Admin Dose 30 GM; Start 09/02/16 at 21:00 Famotidine (Pepcid) 20 mg DAILY PO Last administered on 09/04/16 08:27; Admin Dose 20 MG; Start 09/04/16 at 09:00 Levothyroxine Sodium (Synthroid Iv) 75 mcg DAILY@06 IV Last administered on 06:07; Admin Dose 75 MCG; Start 09/04/16 at 06:00 JAN HEMPHILL MD Sep 04, 2016 09:45
--- NOTE | 2016-09-04 12:04 | PN ---
DATE: 09/04/2016 SUBJECTIVE: The patient is stable, no acute events overnight. The patient is complaining about the signs of uremia with metallic taste in his mouth, fatigue, confusion. I discussed with the patient about initiating hemodialysis. The patient agrees. Risks and benefits were explained to the patie nt. No other events noted. OBJECTIVE: VITAL SIGNS: Blood pressure 121/66, respirations 20, pulse 59, temperature 98.0. HEENT: Head is normocephalic. NECK: Supple. HEART: Regular rate. LUNGS: Show diminished breath sounds at base. ABDOMEN: Soft, nontender to palpation without rebound or guarding. EXTREMITIES: Negative for clubbing, cyanosis. Positive edema. DERMATOLOGIC: No rashes. MUSCULOSKELETAL: No joint effusions. NEUROLOGIC: No change in exam. MEDICATIONS: The patient's medications have been reviewed. LABORATORY DATA: Sodium 136, potassium 4.2, chloride 109, BUN 26, creatinine 5.57, phosphorus 7.6, magnesium 2.6. White count 3.2, hemoglobin 8.8, hematocrit 27.4, platelet count is 96. ASSESSMENT AND PLAN: 1. Nonoliguric acute kidney injury on top of chronic kidney disease stage IV with previous baseline creatinine around 3.0 mg/dL. Etiology of current acute kidney injury is secondary to acute tubular necrosis versus progression of underlying chronic kidney disease. The patient is experiencing urem ic symptoms and is volume overloaded. Will initiate the patient on hemodialysis after Johnathan yordy ter is placed. Will dialyze for the next 2 to 3 days for solute clearance and volume removal. Risk s and benefits were explained to patient and patient agrees. 2. Metabolic acidosis secondary to acute kidney injury. Anticipate hemodialysis. Will be dialyzed on a 40 bicarbonate bath. 3. Hypertension in part due to increased intravascular volume and chronic kidney disease. Will con tinue diuretic therapy. We will ultrafiltrate with hemodialysis. Continue current blood pressure r egimen. 4. Hypermagnesemia secondary to acute kidney injury. Continue to monitor. 5. Anemia of chronic disease. Continue to monitor hemoglobin and hematocrit levels. Continue Epog en. 6. Lumbar osteomyelitis, status post laminectomy. Continue to monitor. Follow up with sonia le. 7. Diabetes. Continue Accu-Cheks and sliding scale. 8. Benign prostatic hypertrophy. Continue medical management. 9. Diabetic retinopathy, right eye blindness. Continue to monitor. Dictated By: NAE SINHA/ERICKA Conf#: [id number] DID#: [id number]
[2016-09-04] MEDS ORDERED: LIDOCAINE 1% (MDV) 20 ML INJ ONE (14:44)
[2016-09-04] MEDS ORDERED: HEPARIN 1000 UNITS/ML 10 ML INJ ONE (14:44)
--- NOTE | 2016-09-04 16:06 | CONS ---
DATE OF ADMISSION: 09/01/2016 DATE OF CONSULTATION: 09/04/2016 TYPE OF CONSULTATION: Infectious Disease. REASON FOR CONSULTATION: Antibiotic management. HISTORY OF PRESENT ILLNESS: Larry Rios is a 56-year-old male with numerous problems, wh o is being seen now for antibiotic management. His past problems include: 1. History of lumbar osteomyelitis, status post laminectomy. 2. History of spinal abscess status post recent stent and drainage. 3. Chronic renal disease. 4. Hypertension. 5. Diabetes. 6. Benign prostatic hypertrophy. 7. Iron deficiency anemia. 8. Right eye blindness. The patient was admitted to [facility], [facility], when he was found to have elev ated troponin level of 1.15. Creatinine was 3.4. He has chronic renal disease. He was recently ad mitted at [facility] and had drainage of his spinal abscess and laminectomy. CT scan of th e lumbar spine at [place] showed status post L2-L3 laminectomy consistent with L2-L3 diskitis and associated osteomyelitis of both vertebral bodies. Also, air was noted in the left renal collectin g system and enlargement of the left psoas muscle compared to the right. The patient was evaluated by Dr. Barry from infectious disease and was then transferred here. Patient has some general wea kness. He is legally blind on the right side and can minimally see on the left. PAST MEDICAL HISTORY: Operations as outlined. FAMILY HISTORY: Noncontributory. SOCIAL HISTORY: Does not smoke, drink or abuse drugs. ALLERGIES: NONE TO PENICILLIN, SULFA OR FOODS. MEDICATIONS: Per chart. REVIEW OF SYSTEMS: As per HPI. PHYSICAL EXAMINATION: GENERAL: The patient is a somewhat weak male who is awake, responsive, in no acute distres s. VITAL SIGNS: Stable. He is afebrile. SKIN: Without generalized rash. HEENT: He is blind in the right eye. There is minimal swelling around this eye and minimal vision in the left eye. Mouth without pharyngeal exudate or injection. NECK: Supple. LYMPH NODES: None palpable. CHEST: Decreased breath sounds at the bases. HEART: Without murmur or gallop. ABDOMEN: Soft, nontender, without organosplenomegaly or masses. EXTREMITIES: Without cyanosis, clubbing, or edema. RECTAL AND GENITAL: Deferred. NEUROLOGIC: No focal neurological abnormalities. HOSPITAL COURSE: The patient's urine culture grew out Katharina glabrata and gram-negative rods. A D VT scan was negative. Abdominal x-ray suspicious for development of intraperitoneal fluid, calcific ations seen within the right upper quadrant, possibly representing nephrolithiasis. Punctate calcif ications are seen in the region of the body and tail of the pancreas, chronic pancreatitis. Interv al development of atelectasis or infiltrate involving the lower lobes with a suggestion of a small l eft pleural fluid accumulation. Renal ultrasound, bilateral hyperechoic kidneys consistent with med ical disease, moderate free fluid in the abdomen. CT scan of the abdomen and pelvis shows no evide nce of obstructive uropathy, diverticulitis or appendicitis, extensive vascular calcifications, bila teral pleural effusions, chronic pancreatitis, mild anasarca. Abdominal x-ray, vertical midline and skin kelly, gaseous distention of the stomach, atherosclerosis, prior spinal surgery. IMPRESSION AND PLAN: Patient was seen by Dr. Brown, who nodes lumbar osteomyelitis, status post l aminectomy. Continue to monitor. Follow up with primary team. The patient is currently on vancomy mil[place]. We will continue him on current therapy. He also needs medications for Katharina glabrata. We will put him on Cancidas. I will dictate my findings to the hospitalist and to Dr. Brown. The real jensen does have a PICC line. Of note is the fact that his white count today is 3.2, H and H 8.8 and 27.4, platelet count 96,000, BUN and creatinine 66/5.57. Dictated By: PARDEEP VAZQUEZ MD, JD/ERICKA Conf#: [id number] DID#: [id number]
--- NOTE | 2016-09-04 16:34 | RADRPT ---
PROCEDURE: Ultrasound guidance for placement of needle in right internal jugular vein. CLINICAL INDICATION: Venous access. TECHNIQUE: Prior to the procedure, informed consent was obtained. Risks including bleeding, infection, and pneu mothorax were explained to the patient. The patient understood and was willing to proceed. A procedu ral pause was performed. The patient's name, date of , and procedure to be performed were verif ied. The central line was inserted with all elements of maximal sterile barrier technique. All of th e following were used: head covering, facial mask, sterile gown, sterile gloves, a large sterile she et, hand hygiene, and 2% chlorhexidine for cutaneous antisepsis. The right neck and anterior/super ior chest wall was prepped and draped in usual sterile fashion. Limited sonography of the right neck was then performed. Noted is a patent right internal jugular ve in. Ultrasound images were recorded and stored in the patient's medical record. Following the local injection of Xylocaine, the right internal jugular vein was punctured under sono graphic guidance with a 20-gauge needle through which a 0.018 inch floppy tip guidewire was advanced into the superior vena cava. The patient tolerated the procedure well. The remainder of the proce dure was performed and dictated under separate cover. COMPARISON: None. FINDINGS: The ultrasound images demonstrate a patent right internal jugular vein. The subsequent images demon strate the needle entering the right internal jugular vein. IMPRESSION: 1. Ultrasound guidance for a needle placement in right internal jugular vein. RPTAT: QQ .Umang Dale MD, Date Time Electronically viewed and signed by .Umang Dale MD, on 09/04/2016 16:34 .R/
--- NOTE | 2016-09-04 16:34 | RADRPT ---
PROCEDURE: PLACEMENT OF RIGHT INTERNAL JUGULAR VENOUS TEMPORARY DIALYSIS CATHETER . CLINICAL INDICATION: Renal failure. TECHNIQUE: Informed consent was obtained. The risks including bleeding and infection were explained to the pat ient. The patient understood and was willing to proceed. A procedural pause was performed. The real jensen's name, date of , and procedure to be performed were verified. Limited sonography of the right neck was performed. Noted is a patent right internal jugular vein. The central line was inse rted with all elements of maximal sterile barrier technique. All of the following were used: head co vering, facial mask, sterile gown, sterile gloves, a large sterile sheet, hand hygiene, and 2% chlo rhexidine for cutaneous antisepsis. The right neck and anterior superior chest wall was prepped and draped in the usual sterile fashion. Using local anesthesia, sterile technique, and ultrasound guidance, a 20-gauge needle was advanced i nto the right internal jugular vein in the supraclavicular region. The 0.018 inch floppy tip guidew kelli was advanced through the needle into the superior vena cava with fluoroscopic guidance. A 5-Kannan nch sheath was advanced over the guidewire. The guidewire was removed and a 0.035 inch Amplatz wire was advanced into the superior vena cava, then the right atrium. Serial dilatation was performed t o 12 Sami. The temporary dialysis catheter was then advanced over the guidewire such that the tip was placed in the right atrium. A 16 cm long, 11.5 Sami Mahurkar temporary dialysis catheter was used. Tip position was confirmed in the right atrium with fluoroscopy. The two ports were each fl ushed with 1.5 ml of 1:1000 heparin. The catheter was secured to the skin with 2-0 monofilament. The site was dressed. The patient tolerated the procedure well. COMPARISON: None. FINDINGS: Ultrasound images were recorded and stored in the patient's medical record. Final radiographic images demonstrate the tip of the catheter in the upper right atrium. A total of 0.1 minutes of fluoroscopy time was used. The ultrasound images demonstrate the needle entering th e internal jugular vein. IMPRESSION: 1. Satisfactory insertion of right internal jugular vein temporary dialysis catheter with ultrasoun d and fluoroscopic guidance. RPTAT: QQ .Umang Dale MD, MD Date Time Electronically viewed and signed by .Umang Dale MD, MD on 09/04/2016 16:34 .R/
[2016-09-04] MEDS: CEFEPIME 1GM/50 ML (PMX) 50 ML IVPB SCH (17:51)
[2016-09-04] MEDS ORDERED: CASPOFUNGIN 70 MG in NS 250 ML IV ONE (18:30)
[2016-09-04] MEDS: TAMSULOSIN (SR) 0.4 MG CAP PO SCH (20:09)
[2016-09-04] MEDS ORDERED: VORICONAZOLE 200 MG TAB PO SCH (21:00)
[2016-09-04] MEDS: NEOMYC/POLYMYX/BACIT 30 GM OINT TOP SCH (21:15)
[2016-09-05] VITALS (9 sets, daily range): BP systolic 107–126; BP diastolic 52–63; PULSE 59–69; RESP 14–18
[2016-09-05] MEDS: morphine 4 MG/ML VIAL IV PRN ×4 (01:13→17:30)
[2016-09-05] MEDS: ACCU-CHEK XX SCH ×2 (01:36→21:29)
[2016-09-05 05:03] LABS: ADD SCAN DIFF NO
[2016-09-05 05:07] LABS: ABNORMAL IP MESSAGE 1; EOSINOPHILS # 0.2 10^3/ul (0.0-0.5); EOSINOPHILS % 6.3 % (0.0-7.0); HEMATOCRIT 25.4 % (42.0-52.0); HEMOGLOBIN 8.3 g/dl (14.0-18.0); LYMPHOCYTES # 0.8 10^3/ul (0.8-2.9); LYMPHOCYTES % 26.7 % (15.0-51.0); MEAN CORPUSCULAR HEMOGLOBIN 30.3 pg (29.0-33.0); MEAN CORPUSCULAR HGB CONC 32.7 g/dl (32.0-37.0); MEAN CORPUSCULAR VOLUME 92.7 fl (82.0-101.0); MEAN PLATELET VOLUME 10.7 fl (7.4-10.4); MONOCYTE # 0.4 10^3/ul (0.3-0.9); MONOCYTES % 11.4 % (0.0-11.0); NEUTROPHIL # 1.7 10^3/ul (1.6-7.5); NEUTROPHILS % 54.3 % (39.0-77.0); RED BLOOD COUNT 2.74 10^6/ul (4.70-6.10); RED CELL DISTRIBUTION WIDTH 16.2 % (11.5-14.5); WHITE BLOOD COUNT 3.2 10^3/ul (4.8-10.8)
[2016-09-05 05:10] LABS: POTASSIUM 3.4 mmol/L (3.5-5.1)
[2016-09-05 05:13] LABS: CALCIUM 7.5 mg/dl (8.4-10.2); CREATININE 4.47 mg/dl (0.61-1.24)
[2016-09-05 05:14] LABS: MAGNESIUM 2.4 mg/dl (1.7-2.5)
[2016-09-05 05:40] LABS: PLATELET COUNT 98 10^3/UL (140-415)
[2016-09-05] MEDS: LEVOTHYROXINE 100 MCG VIAL IV SCH (05:41)
[2016-09-05] MEDS: FUROSEMIDE 40 MG INJ IV SCH (05:43)
[2016-09-05] MEDS: INSULIN ASPART [NOVOLOG] 3 ML PEN SC SCH ×4 (08:00→21:00)
[2016-09-05] MEDS: ISOSORBIDE DINITRATE 20 MG TAB PO SCH ×3 (08:48→21:00)
[2016-09-05] MEDS: MINOXIDIL 2.5 MG TAB PO SCH ×2 (08:48→21:00)
[2016-09-05] MEDS: FINASTERIDE 5 MG TAB PO SCH (08:49)
[2016-09-05] MEDS: SEVELAMER 800 MG TAB PO SCH ×3 (08:49→17:30)
[2016-09-05] MEDS: NEOMYC/POLYMYX/BACIT 30 GM OINT TOP SCH ×2 (08:50→21:30)
[2016-09-05] MEDS: LACTULOSE 30ML CUP PO SCH ×2 (08:50→21:00)
[2016-09-05] MEDS: LACTOBACILLUS CHEW TAB PO SCH ×2 (08:50→21:00)
[2016-09-05] MEDS: FAMOTIDINE 20 MG TAB PO SCH (08:50)
[2016-09-05] MEDS: HEPARIN 5,000 UNIT/0.5 ML VIAL SC SCH ×2 (08:52→21:31)
--- NOTE | 2016-09-05 11:55 | PN ---
DATE: 09/05/2016 SUBJECTIVE: The patient was initiated on hemodialysis yesterday, tolerated well, anticipate dialysi s again today. No other events noted. OBJECTIVE: VITAL SIGNS: Blood pressure 107/62, respirations 14, pulse 63, temperature 98.0. HEENT: Head is normocephalic. NECK: Supple. HEART: Regular rate. LUNGS: Show diminished breath sounds at the base. ABDOMEN: Soft, nontender to palpation without rebound or guarding. EXTREMITIES: Negative for clubbing, cyanosis. Positive edema. DERMATOLOGIC: No rashes. MUSCULOSKELETAL: No joint effusions. NEUROLOGIC: No change in exam. MEDICATIONS: The patient's medications have been reviewed. LABORATORY DATA: Showed sodium 144, potassium 3.4, BUN 46, creatinine 4.47. White count 3.2, hemog lobin 8.3, hematocrit 25.4, platelet count is 98. ASSESSMENT AND PLAN: 1. Nonoliguric acute kidney injury on top of chronic kidney disease stage IV with previous baseline creatinine of 3 mg/dL. Etiology of acute kidney injury is secondary to acute tubular necrosis vers us progression of underlying chronic kidney disease. The patient is currently dialysis dependent, w as initiated hemodialysis yesterday. Anticipate dialysis in the next 1 to 2 days for solute clearan ce and volume removal. Will then monitor for any signs of recovery. 2. Metabolic acidosis secondary to acute kidney injury, improving. Continue hemodialysis. 3. Volume overload secondary to acute kidney injury. The patient will continue ultrafiltration issa lysis. 5. Hypertension, in part due to increased intravascular volume, chronic kidney disease. Continue u ltrafiltration dialysis. Continue current blood pressure regimen. 6. Hypermagnesemia secondary to traumatic brain injury. Continue dialysis. 7. Anemia of chronic disease. Monitor hemoglobin and hematocrit levels. Continue Epogen. 8. Lumbar osteomyelitis, status post laminectomy. Continue to monitor. Continue antibiotics. 8. Diabetes. Continue Accu-Cheks and sliding scale. 9. Benign prostatic hypertrophy. Continue current medical management. 10. Diabetic retinopathy. Continue to monitor. Dictated By: NAE SINHA/ERICKA Conf#: [id number] DID#: [id number]
[2016-09-05] MEDS: POTASSIUM CHLORIDE (SR) 20 MEQ TAB PO SCH (12:20)
[2016-09-05 16:10] LABS: MICROALBUMIN 37.5 mg/dL
--- NOTE | 2016-09-05 16:11 | PN ---
Date/Time of Note Date/Time of Note DATE: 09/05/16 TIME: 16:09 Assessment/Plan VTE Prophylaxis VTE Prophylaxis Intervention: heparin Lines/Catheters IV Catheter Type (from Nrsg): PICC Line Central line still needed: Yes (hd access) Urinary Cath still in place: Yes Reason Cath still needed: urinary retention, pres ulcer contaminated by urine Assessment/Plan Chief Complaint/Hosp Course Subjective: 56-yrM w chest or back pain. Atypical/ Dull substernal possibly worse w coughing. No fever or chest wall injury. There is some edema. Potentially renal failure CHF related. Seen by cardiology, troponins false. 2D echo done. He was optimized and stabilized for transfer. EF of 60%. No wma's. Poor R-wave progression through septal leads. Seen by ID for subacute OM; to cont atb's. Seen by nephrology due to renal dz. Is on antibiotics but recently had AIN? Transferred here for continuity. -Still has chest pain, atypical. No BM since 4 days. Positive nausea, poor appetite and possibly dysuria. 09/03still with GI symptoms. 09/04 no events. U/o a little more. sp abd CT 09/05 started HD. no distress. kelly out. O: Vss PE No pallor Reg, no m/r/g Ctab Bs dimin, nt. Mild distended. No r/r/g Ext w edema lt > rt. No Homans sign. A/P 1. Atypical chest pain. Stable. Potential pleurisy. no DVT. 2. Ileus? KUB; increase bowel care regimen/ HD may help. Avoid narcotics if possible. 3. ARF. Subacute ATN/ AIN?. HD. Avoid PICCs. 4. DM/metabolic syndrome. Cont bb/risk factor modification 5. Chr OM. Sp laminectomy. Cont wound care. Cont atb's 5. Ho psoas muscle abscess. 7. Chr COPD 8. Chr hypothyroidism 9. BPH 10. Ftt, transfer back to rehab soon 11. Lt ear otitis externa? Problems: Exam/Review of Systems Vital Signs Vitals Vital Signs Date Time Temp Pulse Resp B/P Pulse Ox O2 Delivery O2 Flow Rate FiO2 09/05/16 07:56 98.0 63 14 107/62 98 09/04/16 10:36 2.0 09/01/16 17:54 Nasal Cannula Intake and Output 09/04/16 09/04/16 09/05/16 15:00 23:00 07:00 Intake Total 820 ml 480 ml Output Total 3650 ml 300 ml Balance -2830 ml 180 ml Results Result Diagram: 09/05/16 0441 09/05/16 0444 Results 24 hrs Laboratory Tests Test 09/04/16 16:55 09/04/16 20:08 09/05/16 04:33 09/05/16 04:41 Bedside Glucose 86 99 Phosphorus Level 7.9 #H White Blood Count 3.2 L Red Blood Count 2.74 L Hemoglobin 8.3 L Hematocrit 25.4 L Mean Corpuscular Volume 92.7 Mean Corpuscular Hemoglobin 30.3 Mean Corpuscular Hemoglobin Concent 32.7 Red Cell Distribution Width 16.2 H Platelet Count 98 L Mean Platelet Volume 10.7 H Neutrophils % 54.3 Lymphocytes % 26.7 Monocytes % 11.4 H Eosinophils % 6.3 Basophils % 1.0 Nucleated Red Blood Cells % 0.0 Neutrophils # 1.7 Lymphocytes # 0.8 Monocytes # 0.4 Eosinophils # 0.2 Basophils # 0.0 Nucleated Red Blood Cells # 0.0 Test 09/05/16 04:44 09/05/16 08:04 09/05/16 11:48 Sodium Level 144 Potassium Level 3.4 L Chloride Level 110 Carbon Dioxide Level 22 Anion Gap 15 Blood Urea Nitrogen 46 #H Creatinine 4.47 #H Glucose Level 73 Calcium Level 7.5 L Magnesium Level 2.4 Bedside Glucose 75 80 Medications Medications Current Medications Carvedilol (Coreg) 6.25 mg BID PO Last administered on 09/04/16 20:09; Admin Dose 6.25 MG; Start 09/01/16 at 23:00 Finasteride (Proscar) 5 mg DAILY PO Last administered on 09/05/16 08:49; Admin Dose 5 MG; Start 09/02/16 at 09:00 Minoxidil (Loniten) 5 mg BID PO Last administered on 09/04/16 20:10; Admin Dose 5 MG; Start 09/02/16 at 09:00 Oxycodone/ Acetaminophen (Percocet (5/ 325)) maximum total acetaminop... Q4 PRN PO PAIN LEVEL 1-5 Last administered on 09/03/16 22:08; Admin Dose 1 TAB; Start 09/01/16 at 23:00 Simethicone (Mylicon) 80 mg Q6H PRN PO DISTENSION/GAS/BLOATING; Start 09/01/16 at 23:00 Tamsulosin HCl (Flomax) 0.4 mg QHS PO Last administered on 09/04/16 20:09; Admin Dose 0.4 MG; Start 09/02/16 at 21:00 Heparin Sodium (Porcine) (Heparin (5000 Units/0.5 ml)) 5,000 unit Q12 SC Last administered on 09/05/16 08:52; Admin Dose 5,000 UNIT; Start 09/02/16 at 09:00 Morphine Sulfate (morphine) 3 mg Q4H PRN IV PAIN LEVEL 6-10 Last administered on 09/05/16 13:12; Admin Dose 3 MG; Start 09/01/16 at 23:30 Ondansetron HCl (Zofran Inj) 4 mg Q6H PRN IV NAUSEA AND/OR VOMITING Last administered on 09/02/16 09:47; Admin Dose 4 MG; Start 09/01/16 at 23:30 Diagnostic Test (Pha) (Accu-Chek) 1 ea 02 XX ; Start 09/02/16 at 02:00 Isosorbide Dinitrate (Isordil) 20 mg TID PO Last administered on 09/04/16 20: 10; Admin Dose 20 MG; Start 09/01/16 at 23:00 Miscellaneous Information 1 ea NOTE XX ; Start 09/01/16 at 23:30 Glucose (Glutose) 15 gm Q15M PRN PO DECREASED GLUCOSE; Start 09/01/16 at 23:30 Glucose (Glutose) 22.5 gm Q15M PRN PO DECREASED GLUCOSE; Start 09/01/16 at 23: 30 Dextrose (D50w Syringe) 25 ml Q15M PRN IV DECREASED GLUCOSE; Start 09/01/16 at 23:30 Dextrose (D50w Syringe) 50 ml Q15M PRN IV DECREASED GLUCOSE; Start 09/01/16 at 23:30 Glucagon (Glucagen) 1 mg Q15M PRN IM DECREASED GLUCOSE; Start 09/01/16 at 23:30 Glucose (Glutose) 15 gm Q15M PRN BUCCAL DECREASED GLUCOSE; Start 09/01/16 at 23 :30 Lactulose (Enulose) 30 gm BID PO Last administered on 09/05/16 08:50; Admin Dose 30 GM; Start 09/02/16 at 21:00 Famotidine (Pepcid) 20 mg DAILY PO Last administered on 09/05/16 08:50; Admin Dose 20 MG; Start 09/04/16 at 09:00 Levothyroxine Sodium (Synthroid Iv) 75 mcg DAILY@06 IV Last administered on 05:41; Admin Dose 75 MCG; Start 09/04/16 at 06:00 Lactobacillus Acidoph/ Bulgaricus 1 tab 1 tab BID PO Last administered on 08:50; Admin Dose 1 TAB; Start 09/04/16 at 21:00 Cefepime HCl 50 ml @ 100 mls/hr Q24H IVPB Last administered on 09/04/16 17:51 ; Admin Dose 100 MLS/HR; Start 09/04/16 at 18:00 Caspofungin/ Sodium Chloride (Cancidas/NS) 250 ml @ 250 mls/hr Q24H IV ; Start 09/05/16 at 18:00 Neomycin/ Polymyxin/ Bacitracin (Neosporin Topical Oint) 1 applic BID TOP Last administered on 09/05/16 08:50; Admin Dose 1 APPLIC; Start 09/04/16 at 21:00; Stop 09/11/16 at 20:59 Potassium Chloride (Klor-Con 20) 40 meq DAILY PO Last administered on 12:20; Admin Dose 40 MEQ; Start 09/05/16 at 12:00 Miscellaneous Information (*Rx Drug Level Order Reminder*) 1 ONCE ONCE XX ; Start 09/06/16 at 05:00; Stop 09/06/16 at 05:01 JAN HEMPHILL MD Sep 05, 2016 16:11
--- NOTE | 2016-09-05 16:35 | PN ---
DATE: 09/05/2016 SUBJECTIVE: No acute events. The patient is lying comfortably in bed. No fevers. WBC 3.2, platelets 98, no shift. BUN 46, creatinine 4.47. INDWELLINGS: The patient has Cox and Johnathan catheter, right IJ placed on 09/04/2016. MICROBIOLOGY: Urine culture growing Enterobacter aerogenesis and Katharina glabrata. ANTIMICROBIALS: The patient is on: 1. Cancidas. 2. Cefepime. 3. Also completing IV vancomycin. PHYSICAL EXAMINATION: GENERAL: Chronically ill-appearing, middle-aged man who is in no distress. HEENT: Head atraumatic, normocephalic. Sclerae anicteric. Buccal mucosa dry. NECK: Supple, trachea midline. CHEST: Rise symmetrical. Breath sounds diminished to bases. HEART: S1, S2. ABDOMEN: Obese, distended, soft. Bowel tones hypoactive. EXTREMITIES: Without cyanosis. SKIN: Positive for anasarca. ASSESSMENT: 1. Acute on chronic respiratory failure with significant anasarca, status post Johnathan placement, s tarted on hemodialysis. 2. Recurrent urinary tract infection. 3. Status post methicillin-resistant Staphylococcus aureus spinal abscess removal with decompressiv e laminectomy on 09/09/2016. 4. Diabetes. 5. Hypertension. 6. History of left otomastoiditis. PLAN: The patient remains stable. We are going to discontinue vancomycin as he completed the treat ment. Keep him on cefepime and Cancidas for UTI. Continue management as per primary team and consu ltants. Dictated By: DORENE GARCIA CLAMP OPERATOR for PARDEEP MATTA/ERICKA Conf#: [id number] DID#: [id number]
[2016-09-05] MEDS: CEFEPIME 1GM/50 ML (PMX) 50 ML IVPB SCH (17:30)
[2016-09-05] MEDS: CASPOFUNGIN 50 MG in NS 250 ML IV SCH (18:23)
[2016-09-05] MEDS: TAMSULOSIN (SR) 0.4 MG CAP PO SCH (21:00)
[2016-09-06] VITALS (10 sets, daily range): BP systolic 111–147; BP diastolic 56–78; PULSE 60–72; RESP 18–19
[2016-09-06] MEDS: LEVOTHYROXINE 100 MCG VIAL IV SCH (05:06)
[2016-09-06 05:40] LABS: ADD SCAN DIFF NO
[2016-09-06 05:44] LABS: ABNORMAL IP MESSAGE 1; BASOPHILS % 0.9 % (0.0-2.0); EOSINOPHILS # 0.2 10^3/ul (0.0-0.5); EOSINOPHILS % 6.2 % (0.0-7.0); HEMATOCRIT 27.9 % (42.0-52.0); HEMOGLOBIN 9.1 g/dl (14.0-18.0); LYMPHOCYTES # 1.2 10^3/ul (0.8-2.9); LYMPHOCYTES % 35.2 % (15.0-51.0); MEAN CORPUSCULAR HGB CONC 32.6 g/dl (32.0-37.0); MEAN CORPUSCULAR VOLUME 92.1 fl (82.0-101.0); MEAN PLATELET VOLUME 11.3 fl (7.4-10.4); MONOCYTE # 0.4 10^3/ul (0.3-0.9); NEUTROPHIL # 1.6 10^3/ul (1.6-7.5); NEUTROPHILS % 45.4 % (39.0-77.0); PLATELET COUNT 81 10^3/UL (140-415); RED BLOOD COUNT 3.03 10^6/ul (4.70-6.10); RED CELL DISTRIBUTION WIDTH 15.9 % (11.5-14.5); WHITE BLOOD COUNT 3.4 10^3/ul (4.8-10.8)
[2016-09-06 05:58] LABS: POTASSIUM 3.4 mmol/L (3.5-5.1)
[2016-09-06 06:01] LABS: CREATININE 3.62 mg/dl (0.61-1.24)
[2016-09-06 06:02] LABS: CALCIUM 7.6 mg/dl (8.4-10.2)
[2016-09-06] MEDS: INSULIN ASPART [NOVOLOG] 3 ML PEN SC SCH ×4 (08:00→21:00)
[2016-09-06] MEDS: ONDANSETRON 4 MG INJ IV PRN (08:45)
[2016-09-06] MEDS: POTASSIUM CHLORIDE (SR) 20 MEQ TAB PO SCH (08:46)
[2016-09-06] MEDS: NEOMYC/POLYMYX/BACIT 30 GM OINT TOP SCH ×2 (08:46→21:06)
[2016-09-06] MEDS: LACTULOSE 30ML CUP PO SCH ×2 (08:49→21:03)
[2016-09-06] MEDS: SEVELAMER 800 MG TAB PO SCH ×3 (08:50→17:13)
[2016-09-06] MEDS: LACTOBACILLUS CHEW TAB PO SCH ×2 (08:51→21:03)
[2016-09-06] MEDS: FAMOTIDINE 20 MG TAB PO SCH (08:51)
[2016-09-06] MEDS: FINASTERIDE 5 MG TAB PO SCH (08:51)
[2016-09-06] MEDS: HEPARIN 5,000 UNIT/0.5 ML VIAL SC SCH ×2 (08:52→21:08)
[2016-09-06] MEDS: MINOXIDIL 2.5 MG TAB PO SCH ×2 (10:38→21:05)
[2016-09-06] MEDS: ISOSORBIDE DINITRATE 20 MG TAB PO SCH ×3 (10:38→21:04)
--- NOTE | 2016-09-06 12:41 | PN ---
Date/Time of Note Date/Time of Note DATE: 09/06/16 TIME: 12:38 Assessment/Plan VTE Prophylaxis VTE Prophylaxis Intervention: other Lines/Catheters [facility] Johnathan Urinary Cath still in place: No Assessment/Plan Assessment/Plan 1. Nonoliguric acute kidney injury on top of chronic kidney disease stage IV with previous baseline creatinine of 3 mg/dL. Etiology of acute kidney injury is secondary to acute tubular necrosis versus progression of underlying chronic kidney disease. The patient is currently dialysis dependent, was initiated hemodialysis yesterday. continue intermittent HD for solute clearance and volume removal. Will then monitor for any signs of recovery. 2. Metabolic acidosis secondary to acute kidney injury, improving. Continue hemodialysis. 3. Volume overload secondary to acute kidney injury. The patient will continue ultrafiltration dialysis. 5. Hypertension, in part due to increased intravascular volume, chronic kidney disease. Continue ultrafiltration dialysis. Continue current blood pressure regimen. 6. Hypermagnesemia secondary to traumatic brain injury. Continue dialysis. 7. Anemia of chronic disease. Monitor hemoglobin and hematocrit levels. Continue Epogen. 8. Lumbar osteomyelitis, status post laminectomy. Continue to monitor. Continue antibiotics. 8. Diabetes. Continue Accu-Cheks and sliding scale. 9. Benign prostatic hypertrophy. Continue current medical management. 10. Diabetic retinopathy. Continue to monitor. Subjective 24 Hr Interval Summary Free Text/Dictation SUBJECTIVE: The patient was initiated on hemodialysis 2 days ago, tolerated well, anticipate dialysis again today. No other events noted. OBJECTIVE: HEENT: Head is normocephalic. NECK: Supple. HEART: Regular rate. LUNGS: Show diminished breath sounds at the base. ABDOMEN: Soft, nontender to palpation without rebound or guarding. EXTREMITIES: Negative for clubbing, cyanosis. Positive edema. DERMATOLOGIC: No rashes. MUSCULOSKELETAL: No joint effusions. NEUROLOGIC: No change in exam. MEDICATIONS: The patient's medications have been reviewed. Exam/Review of Systems Vital Signs Vitals Vital Signs Date Time Temp Pulse Resp B/P Pulse Ox O2 Delivery O2 Flow Rate FiO2 09/06/16 08:00 97.8 68 19 111/65 93 09/04/16 10:36 2.0 Intake and Output 09/05/16 09/05/16 09/06/16 15:00 23:00 07:00 Intake Total 1400 ml 200 ml Output Total 3900 ml 700 ml Balance -2500 ml -500 ml Results Result Diagram: 09/06/16 0430 09/06/16 0430 Results 24 hrs Laboratory Tests Test 09/05/16 17:07 09/05/16 21:27 09/06/16 04:30 09/06/16 07:32 Bedside Glucose 126 173 99 White Blood Count 3.4 L Red Blood Count 3.03 L Hemoglobin 9.1 L Hematocrit 27.9 L Mean Corpuscular Volume 92.1 Mean Corpuscular Hemoglobin 30.0 Mean Corpuscular Hemoglobin Concent 32.6 Red Cell Distribution Width 15.9 H Platelet Count 81 L Mean Platelet Volume 11.3 H Neutrophils % 45.4 Lymphocytes % 35.2 Monocytes % 12.0 H Eosinophils % 6.2 Basophils % 0.9 Nucleated Red Blood Cells % 0.0 Neutrophils # 1.6 Lymphocytes # 1.2 Monocytes # 0.4 Eosinophils # 0.2 Basophils # 0.0 Nucleated Red Blood Cells # 0.0 Sodium Level 145 H Potassium Level 3.4 L Chloride Level 109 Carbon Dioxide Level 24 Anion Gap 15 Blood Urea Nitrogen 32 #H Creatinine 3.62 H Glucose Level 92 Calcium Level 7.6 L Test 09/06/16 11:45 Bedside Glucose 98 Medications Medications Current Medications Carvedilol (Coreg) 6.25 mg BID PO Last administered on 09/04/16 20:09; Admin Dose 6.25 MG; Start 09/01/16 at 23:00 Finasteride (Proscar) 5 mg DAILY PO Last administered on 09/05/16 08:49; Admin Dose 5 MG; Start 09/02/16 at 09:00 Minoxidil (Loniten) 5 mg BID PO Last administered on 09/04/16 20:10; Admin Dose 5 MG; Start 09/02/16 at 09:00 Oxycodone/ Acetaminophen (Percocet (5/ 325)) maximum total acetaminop... Q4 PRN PO PAIN LEVEL 1-5 Last administered on 09/03/16 22:08; Admin Dose 1 TAB; Start 09/01/16 at 23:00 Simethicone (Mylicon) 80 mg Q6H PRN PO DISTENSION/GAS/BLOATING; Start 09/01/16 at 23:00 Tamsulosin HCl (Flomax) 0.4 mg QHS PO Last administered on 09/04/16 20:09; Admin Dose 0.4 MG; Start 09/02/16 at 21:00 Heparin Sodium (Porcine) (Heparin (5000 Units/0.5 ml)) 5,000 unit Q12 SC Last administered on 09/05/16 21:31; Admin Dose 5,000 UNIT; Start 09/02/16 at 09:00 Morphine Sulfate (morphine) 3 mg Q4H PRN IV PAIN LEVEL 6-10 Last administered on 09/05/16 17:30; Admin Dose 3 MG; Start 09/01/16 at 23:30 Ondansetron HCl (Zofran Inj) 4 mg Q6H PRN IV NAUSEA AND/OR VOMITING Last administered on 09/06/16 08:45; Admin Dose 4 MG; Start 09/01/16 at 23:30 Diagnostic Test (Pha) (Accu-Chek) 1 ea 02 XX ; Start 09/02/16 at 02:00 Isosorbide Dinitrate (Isordil) 20 mg TID PO Last administered on 09/04/16 20: 10; Admin Dose 20 MG; Start 09/01/16 at 23:00 Miscellaneous Information 1 ea NOTE XX ; Start 09/01/16 at 23:30 Glucose (Glutose) 15 gm Q15M PRN PO DECREASED GLUCOSE; Start 09/01/16 at 23:30 Glucose (Glutose) 22.5 gm Q15M PRN PO DECREASED GLUCOSE; Start 09/01/16 at 23: 30 Dextrose (D50w Syringe) 25 ml Q15M PRN IV DECREASED GLUCOSE; Start 09/01/16 at 23:30 Dextrose (D50w Syringe) 50 ml Q15M PRN IV DECREASED GLUCOSE; Start 09/01/16 at 23:30 Glucagon (Glucagen) 1 mg Q15M PRN IM DECREASED GLUCOSE; Start 09/01/16 at 23:30 Glucose (Glutose) 15 gm Q15M PRN BUCCAL DECREASED GLUCOSE; Start 09/01/16 at 23 :30 Lactulose (Enulose) 30 gm BID PO Last administered on 09/05/16 08:50; Admin Dose 30 GM; Start 09/02/16 at 21:00 Famotidine (Pepcid) 20 mg DAILY PO Last administered on 09/05/16 08:50; Admin Dose 20 MG; Start 09/04/16 at 09:00 Levothyroxine Sodium (Synthroid Iv) 75 mcg DAILY@06 IV Last administered on 05:06; Admin Dose 75 MCG; Start 09/04/16 at 06:00 Lactobacillus Acidoph/ Bulgaricus 1 tab 1 tab BID PO Last administered on 08:50; Admin Dose 1 TAB; Start 09/04/16 at 21:00 Cefepime HCl 50 ml @ 100 mls/hr Q24H IVPB Last administered on 09/05/16 17:30 ; Admin Dose 100 MLS/HR; Start 09/04/16 at 18:00 Caspofungin/ Sodium Chloride (Cancidas/NS) 250 ml @ 250 mls/hr Q24H IV Last administered on 09/05/16 18:23; Admin Dose 250 MLS/HR; Start 09/05/16 at 18:00 Neomycin/ Polymyxin/ Bacitracin (Neosporin Topical Oint) 1 applic BID TOP Last administered on 09/06/16 08:46; Admin Dose 1 APPLIC; Start 09/04/16 at 21:00; Stop 09/11/16 at 20:59 Potassium Chloride (Klor-Con 20) 40 meq DAILY PO Last administered on 08:46; Admin Dose 40 MEQ; Start 09/05/16 at 12:00 ALEJANDRO PEREZ DO Sep 06, 2016 12:41
--- NOTE | 2016-09-06 14:52 | PN ---
Date/Time of Note Date/Time of Note DATE: 09/06/16 TIME: 14:50 Assessment/Plan VTE Prophylaxis VTE Prophylaxis Intervention: heparin, LMWH Lines/Catheters IV [facility] Type [facility] Johnathan Urinary Cath still in place: No Assessment/Plan Chief Complaint/Hosp Course Subjective: 56-yrM w chest or back pain. Atypical/ Dull substernal possibly worse w coughing. No fever or chest wall injury. There is some edema. Potentially renal failure CHF related. Seen by cardiology, troponins false. 2D echo done. He was optimized and stabilized for transfer. EF of 60%. No wma's. Poor R-wave progression through septal leads. Seen by ID for subacute OM; to cont atb's. Seen by nephrology due to renal dz. Is on antibiotics but recently had AIN? Transferred here for continuity. -Still has chest pain, atypical. No BM since 4 days. Positive nausea, poor appetite and possibly dysuria. 09/03still with GI symptoms. 09/04 no events. U/o a little more. sp abd CT 09/05 started HD. no distress. kelly out. 09/06 some nausea but no vomiting fever or constipation. On dialysis day 2. No active bleeding. O: Vss PE No pallor. Rt access C/D/I Reg, no m/r/g Ctab Bs dimin, nt. Mild distended. No r/r/g Ext w edema lt > rt. No Homans sign. A/P 1. Atypical chest pain. Stable. Potential pleurisy. no DVT. 2. Ileus? bowel care/ HD may help. Avoid narcotics if possible. 3. ARF. Subacute ATN/ AIN?. HD status + Hep C. Avoid PICCs. 4. DM/metabolic syndrome. Cont bb/risk factor modification 5. Chr OM. Sp laminectomy. Cont wound care. Cont atb's 5. Ho psoas muscle abscess. 7. Chr COPD 8. Chr hypothyroidism 9. BPH 10. Ftt, Dc to SNF thursday 11. Lt ear otitis externa? 12. Ac cystitis. Cont therapy Problems: Exam/Review of Systems Vital Signs Vitals Vital Signs Date Time Temp Pulse Resp B/P Pulse Ox O2 Delivery O2 Flow Rate FiO2 09/06/16 13:15 67 09/06/16 11:45 15 09/06/16 08:00 97.8 111/65 93 09/04/16 10:36 2.0 Intake and Output 09/05/16 09/05/16 09/06/16 15:00 23:00 07:00 Intake Total 1400 ml 200 ml Output Total 3900 ml 700 ml Balance -2500 ml -500 ml Results Result Diagram: 09/06/16 0430 09/06/16 0430 Results 24 hrs Laboratory Tests Test 09/05/16 17:07 09/05/16 21:27 09/06/16 04:30 09/06/16 07:32 Bedside Glucose 126 173 99 White Blood Count 3.4 L Red Blood Count 3.03 L Hemoglobin 9.1 L Hematocrit 27.9 L Mean Corpuscular Volume 92.1 Mean Corpuscular Hemoglobin 30.0 Mean Corpuscular Hemoglobin Concent 32.6 Red Cell Distribution Width 15.9 H Platelet Count 81 L Mean Platelet Volume 11.3 H Neutrophils % 45.4 Lymphocytes % 35.2 Monocytes % 12.0 H Eosinophils % 6.2 Basophils % 0.9 Nucleated Red Blood Cells % 0.0 Neutrophils # 1.6 Lymphocytes # 1.2 Monocytes # 0.4 Eosinophils # 0.2 Basophils # 0.0 Nucleated Red Blood Cells # 0.0 Sodium Level 145 H Potassium Level 3.4 L Chloride Level 109 Carbon Dioxide Level 24 Anion Gap 15 Blood Urea Nitrogen 32 #H Creatinine 3.62 H Glucose Level 92 Calcium Level 7.6 L Test 09/06/16 11:45 Bedside Glucose 98 Medications Medications Current Medications Carvedilol (Coreg) 6.25 mg BID PO Last administered on 09/04/16 20:09; Admin Dose 6.25 MG; Start 09/01/16 at 23:00 Finasteride (Proscar) 5 mg DAILY PO Last administered on 09/05/16 08:49; Admin Dose 5 MG; Start 09/02/16 at 09:00 Minoxidil (Loniten) 5 mg BID PO Last administered on 09/04/16 20:10; Admin Dose 5 MG; Start 09/02/16 at 09:00 Oxycodone/ Acetaminophen (Percocet (5/ 325)) maximum total acetaminop... Q4 PRN PO PAIN LEVEL 1-5 Last administered on 09/03/16 22:08; Admin Dose 1 TAB; Start 09/01/16 at 23:00 Simethicone (Mylicon) 80 mg Q6H PRN PO DISTENSION/GAS/BLOATING; Start 09/01/16 at 23:00 Tamsulosin HCl (Flomax) 0.4 mg QHS PO Last administered on 09/04/16 20:09; Admin Dose 0.4 MG; Start 09/02/16 at 21:00 Heparin Sodium (Porcine) (Heparin (5000 Units/0.5 ml)) 5,000 unit Q12 SC Last administered on 09/05/16 21:31; Admin Dose 5,000 UNIT; Start 09/02/16 at 09:00 Morphine Sulfate (morphine) 3 mg Q4H PRN IV PAIN LEVEL 6-10 Last administered on 09/05/16 17:30; Admin Dose 3 MG; Start 09/01/16 at 23:30 Ondansetron HCl (Zofran Inj) 4 mg Q6H PRN IV NAUSEA AND/OR VOMITING Last administered on 09/06/16 08:45; Admin Dose 4 MG; Start 09/01/16 at 23:30 Diagnostic Test (Pha) (Accu-Chek) 1 ea 02 XX ; Start 09/02/16 at 02:00 Isosorbide Dinitrate (Isordil) 20 mg TID PO Last administered on 09/04/16 20: 10; Admin Dose 20 MG; Start 09/01/16 at 23:00 Miscellaneous Information 1 ea NOTE XX ; Start 09/01/16 at 23:30 Glucose (Glutose) 15 gm Q15M PRN PO DECREASED GLUCOSE; Start 09/01/16 at 23:30 Glucose (Glutose) 22.5 gm Q15M PRN PO DECREASED GLUCOSE; Start 09/01/16 at 23: 30 Dextrose (D50w Syringe) 25 ml Q15M PRN IV DECREASED GLUCOSE; Start 09/01/16 at 23:30 Dextrose (D50w Syringe) 50 ml Q15M PRN IV DECREASED GLUCOSE; Start 09/01/16 at 23:30 Glucagon (Glucagen) 1 mg Q15M PRN IM DECREASED GLUCOSE; Start 09/01/16 at 23:30 Glucose (Glutose) 15 gm Q15M PRN BUCCAL DECREASED GLUCOSE; Start 09/01/16 at 23 :30 Lactulose (Enulose) 30 gm BID PO Last administered on 09/05/16 08:50; Admin Dose 30 GM; Start 09/02/16 at 21:00 Famotidine (Pepcid) 20 mg DAILY PO Last administered on 09/05/16 08:50; Admin Dose 20 MG; Start 09/04/16 at 09:00 Levothyroxine Sodium (Synthroid Iv) 75 mcg DAILY@06 IV Last administered on 05:06; Admin Dose 75 MCG; Start 09/04/16 at 06:00 Lactobacillus Acidoph/ Bulgaricus 1 tab 1 tab BID PO Last administered on 08:50; Admin Dose 1 TAB; Start 09/04/16 at 21:00 Cefepime HCl 50 ml @ 100 mls/hr Q24H IVPB Last administered on 09/05/16 17:30 ; Admin Dose 100 MLS/HR; Start 09/04/16 at 18:00 Caspofungin/ Sodium Chloride (Cancidas/NS) 250 ml @ 250 mls/hr Q24H IV Last administered on 09/05/16 18:23; Admin Dose 250 MLS/HR; Start 09/05/16 at 18:00 Neomycin/ Polymyxin/ Bacitracin (Neosporin Topical Oint) 1 applic BID TOP Last administered on 09/06/16 08:46; Admin Dose 1 APPLIC; Start 09/04/16 at 21:00; Stop 09/11/16 at 20:59 Potassium Chloride (Klor-Con 20) 40 meq DAILY PO Last administered on 08:46; Admin Dose 40 MEQ; Start 09/05/16 at 12:00 JAN HEMPHILL MD Sep 06, 2016 14:52
[2016-09-06] MEDS: CEFEPIME 1GM/50 ML (PMX) 50 ML IVPB SCH (17:13)
[2016-09-06] MEDS: CASPOFUNGIN 50 MG in NS 250 ML IV SCH (17:48)
--- NOTE | 2016-09-06 20:31 | CONS ---
Date/Time of Note Date/Time of Note DATE: 09/06/16 TIME: 20:30 Assessment/Plan Assessment/Plan Chief Complaint/Hosp Course SUBJECTIVE: No acute events. The patient is in HD, lying comfortably in bed. No fevers. INDWELLINGS: Cox and Johnathan catheter, right IJ placed on 09/04/2016. MICROBIOLOGY: Urine culture growing Enterobacter aerogenesis and Katharina glabrata. ANTIMICROBIALS: 1. Cancidas. 2. Cefepime. PHYSICAL EXAMINATION: GENERAL: Chronically ill-appearing, middle-aged man who is in no distress. HEENT: Head atraumatic, normocephalic. Sclerae anicteric. Buccal mucosa dry. NECK: Supple, trachea midline. CHEST: Rise symmetrical. Breath sounds diminished to bases. HEART: S1, S2. ABDOMEN: Obese, distended, soft. Bowel tones hypoactive. EXTREMITIES: Without cyanosis. SKIN: Positive for anasarca. ASSESSMENT: 1. Acute on chronic respiratory failure with significant anasarca, status post Johnathan placement, started on hemodialysis. 2. Recurrent urinary tract infection. 3. Status post methicillin-resistant Staphylococcus aureus spinal abscess removal with decompressive laminectomy on 09/09/2016. 4. Diabetes. 5. Hypertension. 6. History of left otomastoiditis. PLAN: The patient remains stable. Continue present care, abx, management as per primary team and consultants. DW staff Problems: Consultation Date/Type/Reason Admit Date/Time Sep 01, 2016 at 17:29 Initial Consult Date Type of Consultation: ID Exam/Review of Systems Vital Signs Vitals Vital Signs Date Time Temp Pulse Resp B/P Pulse Ox O2 Delivery O2 Flow Rate FiO2 09/06/16 16:02 68 15 09/06/16 08:00 97.8 111/65 93 09/04/16 10:36 2.0 Intake and Output 09/05/16 09/05/16 09/06/16 15:00 23:00 07:00 Intake Total 1400 ml 200 ml Output Total 3900 ml 700 ml Balance -2500 ml -500 ml Results Result Diagram: 09/06/16 0430 09/06/16 0430 Results 24 hrs Laboratory Tests Test 09/05/16 21:27 09/06/16 04:30 09/06/16 07:32 09/06/16 11:45 Bedside Glucose 173 99 98 White Blood Count 3.4 L Red Blood Count 3.03 L Hemoglobin 9.1 L Hematocrit 27.9 L Mean Corpuscular Volume 92.1 Mean Corpuscular Hemoglobin 30.0 Mean Corpuscular Hemoglobin Concent 32.6 Red Cell Distribution Width 15.9 H Platelet Count 81 L Mean Platelet Volume 11.3 H Neutrophils % 45.4 Lymphocytes % 35.2 Monocytes % 12.0 H Eosinophils % 6.2 Basophils % 0.9 Nucleated Red Blood Cells % 0.0 Neutrophils # 1.6 Lymphocytes # 1.2 Monocytes # 0.4 Eosinophils # 0.2 Basophils # 0.0 Nucleated Red Blood Cells # 0.0 Sodium Level 145 H Potassium Level 3.4 L Chloride Level 109 Carbon Dioxide Level 24 Anion Gap 15 Blood Urea Nitrogen 32 #H Creatinine 3.62 H Glucose Level 92 Calcium Level 7.6 L Test 09/06/16 17:13 Bedside Glucose 119 Medications Medications Current Medications Carvedilol (Coreg) 6.25 mg BID PO Last administered on 09/04/16 20:09; Admin Dose 6.25 MG; Start 09/01/16 at 23:00 Finasteride (Proscar) 5 mg DAILY PO Last administered on 09/05/16 08:49; Admin Dose 5 MG; Start 09/02/16 at 09:00 Minoxidil (Loniten) 5 mg BID PO Last administered on 09/04/16 20:10; Admin Dose 5 MG; Start 09/02/16 at 09:00 Oxycodone/ Acetaminophen (Percocet (5/ 325)) maximum total acetaminop... Q4 PRN PO PAIN LEVEL 1-5 Last administered on 09/03/16 22:08; Admin Dose 1 TAB; Start 09/01/16 at 23:00 Simethicone (Mylicon) 80 mg Q6H PRN PO DISTENSION/GAS/BLOATING; Start 09/01/16 at 23:00 Tamsulosin HCl (Flomax) 0.4 mg QHS PO Last administered on 09/04/16 20:09; Admin Dose 0.4 MG; Start 09/02/16 at 21:00 Heparin Sodium (Porcine) (Heparin (5000 Units/0.5 ml)) 5,000 unit Q12 SC Last administered on 09/05/16 21:31; Admin Dose 5,000 UNIT; Start 09/02/16 at 09:00 Morphine Sulfate (morphine) 3 mg Q4H PRN IV PAIN LEVEL 6-10 Last administered on 09/05/16 17:30; Admin Dose 3 MG; Start 09/01/16 at 23:30 Ondansetron HCl (Zofran Inj) 4 mg Q6H PRN IV NAUSEA AND/OR VOMITING Last administered on 09/06/16 08:45; Admin Dose 4 MG; Start 09/01/16 at 23:30 Diagnostic Test (Pha) (Accu-Chek) 1 ea 02 XX ; Start 09/02/16 at 02:00 Isosorbide Dinitrate (Isordil) 20 mg TID PO Last administered on 09/04/16 20: 10; Admin Dose 20 MG; Start 09/01/16 at 23:00 Miscellaneous Information 1 ea NOTE XX ; Start 09/01/16 at 23:30 Glucose (Glutose) 15 gm Q15M PRN PO DECREASED GLUCOSE; Start 09/01/16 at 23:30 Glucose (Glutose) 22.5 gm Q15M PRN PO DECREASED GLUCOSE; Start 09/01/16 at 23: 30 Dextrose (D50w Syringe) 25 ml Q15M PRN IV DECREASED GLUCOSE; Start 09/01/16 at 23:30 Dextrose (D50w Syringe) 50 ml Q15M PRN IV DECREASED GLUCOSE; Start 09/01/16 at 23:30 Glucagon (Glucagen) 1 mg Q15M PRN IM DECREASED GLUCOSE; Start 09/01/16 at 23:30 Glucose (Glutose) 15 gm Q15M PRN BUCCAL DECREASED GLUCOSE; Start 09/01/16 at 23 :30 Lactulose (Enulose) 30 gm BID PO Last administered on 09/05/16 08:50; Admin Dose 30 GM; Start 09/02/16 at 21:00 Famotidine (Pepcid) 20 mg DAILY PO Last administered on 09/05/16 08:50; Admin Dose 20 MG; Start 09/04/16 at 09:00 Levothyroxine Sodium (Synthroid Iv) 75 mcg DAILY@06 IV Last administered on 05:06; Admin Dose 75 MCG; Start 09/04/16 at 06:00 Lactobacillus Acidoph/ Bulgaricus 1 tab 1 tab BID PO Last administered on 08:50; Admin Dose 1 TAB; Start 09/04/16 at 21:00 Cefepime HCl 50 ml @ 100 mls/hr Q24H IVPB Last administered on 09/06/16 17:13 ; Admin Dose 100 MLS/HR; Start 09/04/16 at 18:00 Caspofungin/ Sodium Chloride (Cancidas/NS) 250 ml @ 250 mls/hr Q24H IV Last administered on 09/06/16 17:48; Admin Dose 250 MLS/HR; Start 09/05/16 at 18:00 Neomycin/ Polymyxin/ Bacitracin (Neosporin Topical Oint) 1 applic BID TOP Last administered on 09/06/16 08:46; Admin Dose 1 APPLIC; Start 09/04/16 at 21:00; Stop 09/11/16 at 20:59 Potassium Chloride (Klor-Con 20) 40 meq DAILY PO Last administered on 08:46; Admin Dose 40 MEQ; Start 09/05/16 at 12:00 DORENE GARCIA NP Sep 06, 2016 20:31
[2016-09-06] MEDS: TAMSULOSIN (SR) 0.4 MG CAP PO SCH (21:05)
[2016-09-07] MEDS: ACCU-CHEK XX SCH (02:00)
--- NOTE | 2016-09-07 03:11 | RADRPT ---
PROCEDURE: XR Chest. CLINICAL INDICATION: Dyspnea and congestive heart failure. TECHNIQUE: Single frontal view of the chest. COMPARISON: 07/15/2016. FINDINGS: New right central venous dialysis catheter in place with tip in superior vena cava right atrial junc tion. Cardiomegaly again seen. Pulmonary vascular ingestion and patchy air space disease. new smal l right pleural effusion. No signs of pneumothorax are seen. The osseous structures and soft tissues are unremarkable. IMPRESSION: Mild to moderate failure versus volume overload. RPTAT: [facility]U Physician Arlene Date Time Electronically viewed and signed by Physician Arlene on 09/07/2016 03:10 RS/
[2016-09-07] MEDS: LEVOTHYROXINE 100 MCG VIAL IV SCH (05:49)
[2016-09-07] MEDS: SEVELAMER 800 MG TAB PO SCH ×3 (07:50→16:56)
[2016-09-07] MEDS: INSULIN ASPART [NOVOLOG] 3 ML PEN SC SCH ×4 (07:51→20:40)
[2016-09-07 08:00] VITALS: BP 147/71; RESP 19
[2016-09-07] MEDS: HEPARIN 5,000 UNIT/0.5 ML VIAL SC SCH ×2 (09:00→20:52)
[2016-09-07] MEDS: FINASTERIDE 5 MG TAB PO SCH (09:32)
[2016-09-07] MEDS: FAMOTIDINE 20 MG TAB PO SCH (09:32)
[2016-09-07] MEDS: LACTULOSE 30ML CUP PO SCH ×2 (09:32→20:29)
[2016-09-07] MEDS: MINOXIDIL 2.5 MG TAB PO SCH ×2 (09:33→20:31)
[2016-09-07] MEDS: LACTOBACILLUS CHEW TAB PO SCH ×2 (09:33→20:37)
[2016-09-07] MEDS: ISOSORBIDE DINITRATE 20 MG TAB PO SCH ×3 (09:33→20:36)
[2016-09-07] MEDS: POTASSIUM CHLORIDE (SR) 20 MEQ TAB PO SCH (09:33)
[2016-09-07] MEDS: NEOMYC/POLYMYX/BACIT 30 GM OINT TOP SCH ×2 (09:34→20:43)
--- NOTE | 2016-09-07 12:06 | PN ---
Date/Time of Note Date/Time of Note DATE: 09/07/16 TIME: 12:01 Assessment/Plan VTE Prophylaxis VTE Prophylaxis Intervention: heparin Lines/Catheters IV Catheter Type (from Nrsg): Johnathan Cath Urinary Cath still in place: Yes Reason Cath still needed: urinary retention, skin wounds contaminated by urine Assessment/Plan Chief Complaint/Hosp Course Subjective: 56-yrM w chest or back pain. Atypical/ Dull substernal possibly worse w coughing. No fever or chest wall injury. There is some edema. Potentially renal failure CHF related. Seen by cardiology, troponins false. 2D echo done. He was optimized and stabilized for transfer. EF of 60%. No wma's. Poor R-wave progression through septal leads. Seen by ID for subacute OM; to cont atb's. Seen by nephrology due to renal dz. Is on antibiotics but recently had AIN? Transferred here for continuity. -Still has chest pain, atypical. No BM since 4 days. Positive nausea, poor appetite and possibly dysuria. 09/03still with GI symptoms. 09/04 no events. U/o a little more. sp abd CT 09/05 started HD. no distress. kelly out. 09/06 some nausea but no vomiting fever or constipation. On dialysis day 2. No active bleeding. 09/07 stable. No further nausea. cga w pt, may need antibiotics/ snf. O: Vss PE No pallor. Rt access C/D/I Reg, no m/r/g Ctab Bs dimin, nt. Mild distended. No r/r/g Ext w edema lt > rt. No Homans sign. A/P 1. Atypical chest pain. Stable. Potential pleurisy. no DVT. 2. Ileus? bowel care/ HD may help. Avoid narcotics if possible. 3. ARF. Subacute ATN/ AIN?. HD status + Hep C. Avoid PICCs. 4. DM/metabolic syndrome. Cont bb/risk factor modification 5. Chr OM. Sp laminectomy. Cont wound care. DC Cox when able to get up to commode. Finish antibiotics- check w ID 5. Ho psoas muscle abscess. 7. Chr COPD 8. Chr hypothyroidism 9. BPH 10. Ftt, DC to SNF thursday for antibiotics/ADLs/Cox catheter assistance. Vs home with home health. 11. Lt ear otitis externa? 12. Ac cystitis. Cont/finish therapy 13. Chr pancytopenia/bone marrow suppresion/ Hep C Problems: Exam/Review of Systems Vital Signs Vitals Vital Signs Date Time Temp Pulse Resp B/P Pulse Ox O2 Delivery O2 Flow Rate FiO2 09/07/16 11:17 Nasal Cannula 2.0 09/07/16 08:00 98.6 66 19 147/71 93 Intake and Output 09/06/16 09/06/16 09/07/16 15:00 23:00 07:00 Intake Total 500 ml 950 ml 240 ml Output Total 2500 ml 150 ml 200 ml Balance -2000 ml 800 ml 40 ml Results Result Diagram: 09/06/16 0430 09/06/16 0430 Results 24 hrs Laboratory Tests Test 09/06/16 17:13 09/06/16 20:58 09/07/16 07:51 09/07/16 11:43 Bedside Glucose 119 126 114 129 Medications Medications Current Medications Carvedilol (Coreg) 6.25 mg BID PO Last administered on 09/07/16 09:35; Admin Dose 6.25 MG; Start 09/01/16 at 23:00 Finasteride (Proscar) 5 mg DAILY PO Last administered on 09/07/16 09:32; Admin Dose 5 MG; Start 09/02/16 at 09:00 Minoxidil (Loniten) 5 mg BID PO Last administered on 09/07/16 09:33; Admin Dose 5 MG; Start 09/02/16 at 09:00 Oxycodone/ Acetaminophen (Percocet (5/ 325)) maximum total acetaminop... Q4 PRN PO PAIN LEVEL 1-5 Last administered on 09/03/16 22:08; Admin Dose 1 TAB; Start 09/01/16 at 23:00 Simethicone (Mylicon) 80 mg Q6H PRN PO DISTENSION/GAS/BLOATING; Start 09/01/16 at 23:00 Tamsulosin HCl (Flomax) 0.4 mg QHS PO Last administered on 09/06/16 21:05; Admin Dose 0.4 MG; Start 09/02/16 at 21:00 Heparin Sodium (Porcine) (Heparin (5000 Units/0.5 ml)) 5,000 unit Q12 SC Last administered on 09/06/16 21:08; Admin Dose 5,000 UNIT; Start 09/02/16 at 09:00 Morphine Sulfate (morphine) 3 mg Q4H PRN IV PAIN LEVEL 6-10 Last administered on 09/05/16 17:30; Admin Dose 3 MG; Start 09/01/16 at 23:30 Ondansetron HCl (Zofran Inj) 4 mg Q6H PRN IV NAUSEA AND/OR VOMITING Last administered on 09/06/16 08:45; Admin Dose 4 MG; Start 09/01/16 at 23:30 Diagnostic Test (Pha) (Accu-Chek) 1 ea 02 XX ; Start 09/02/16 at 02:00 Isosorbide Dinitrate (Isordil) 20 mg TID PO Last administered on 09/07/16 09: 33; Admin Dose 20 MG; Start 09/01/16 at 23:00 Miscellaneous Information 1 ea NOTE XX ; Start 09/01/16 at 23:30 Glucose (Glutose) 15 gm Q15M PRN PO DECREASED GLUCOSE; Start 09/01/16 at 23:30 Glucose (Glutose) 22.5 gm Q15M PRN PO DECREASED GLUCOSE; Start 09/01/16 at 23: 30 Dextrose (D50w Syringe) 25 ml Q15M PRN IV DECREASED GLUCOSE; Start 09/01/16 at 23:30 Dextrose (D50w Syringe) 50 ml Q15M PRN IV DECREASED GLUCOSE; Start 09/01/16 at 23:30 Glucagon (Glucagen) 1 mg Q15M PRN IM DECREASED GLUCOSE; Start 09/01/16 at 23:30 Glucose (Glutose) 15 gm Q15M PRN BUCCAL DECREASED GLUCOSE; Start 09/01/16 at 23 :30 Lactulose (Enulose) 30 gm BID PO Last administered on 09/07/16 09:32; Admin Dose 30 GM; Start 09/02/16 at 21:00 Famotidine (Pepcid) 20 mg DAILY PO Last administered on 09/07/16 09:32; Admin Dose 20 MG; Start 09/04/16 at 09:00 Levothyroxine Sodium (Synthroid Iv) 75 mcg DAILY@06 IV Last administered on 05:49; Admin Dose 75 MCG; Start 09/04/16 at 06:00 Lactobacillus Acidoph/ Bulgaricus 1 tab 1 tab BID PO Last administered on 09:33; Admin Dose 1 TAB; Start 09/04/16 at 21:00 Cefepime HCl 50 ml @ 100 mls/hr Q24H IVPB Last administered on 09/06/16 17:13 ; Admin Dose 100 MLS/HR; Start 09/04/16 at 18:00 Caspofungin/ Sodium Chloride (Cancidas/NS) 250 ml @ 250 mls/hr Q24H IV Last administered on 09/06/16 17:48; Admin Dose 250 MLS/HR; Start 09/05/16 at 18:00 Neomycin/ Polymyxin/ Bacitracin (Neosporin Topical Oint) 1 applic BID TOP Last administered on 09/07/16 09:34; Admin Dose 1 APPLIC; Start 09/04/16 at 21:00; Stop 09/11/16 at 20:59 Potassium Chloride (Klor-Con 20) 40 meq DAILY PO Last administered on 09:33; Admin Dose 40 MEQ; Start 09/05/16 at 12:00 JAN HEMPHILL MD Sep 07, 2016 12:06
--- NOTE | 2016-09-07 12:18 | PDOCDIS ---
Discharge Instructions DIAGNOSIS Discharge Diagnosis: ESRD CONDITION Patient Condition: Stable HOME CARE INSTRUCTIONS: Special Diet: 1800 mariano 2 gms Na ACTIVITY: Activity Restrictions: Slowly Increase Activity Do not Drive FOLLOW UP/APPOINTMENTS Appointments Dialysis as instructed Appt Dr Brown -1-2wks Dr Rodríguez -2wks Dr Ritu Agosto -3-4wks. JAN HEMPHILL MD Sep 07, 2016 12:17
--- NOTE | 2016-09-07 12:33 | PN ---
Date/Time of Note Date/Time of Note DATE: 09/07/16 TIME: 12:31 Assessment/Plan VTE Prophylaxis VTE Prophylaxis Intervention: other Lines/Catheters IV [facility]ter [facility]from [facility] Johnathan Cath Urinary Cath still in place: No Assessment/Plan Assessment/Plan 1. Nonoliguric acute kidney injury on top of chronic kidney disease stage IV with previous baseline creatinine of 3 mg/dL. The patient is currently dialysis dependent and has ESRD. continue intermittent HD 2. Metabolic acidosis secondary to acute kidney injury, improving. Continue hemodialysis. 3. Volume overload secondary to acute kidney injury. The patient will continue ultrafiltration dialysis. 5. Hypertension, in part due to increased intravascular volume, chronic kidney disease. Continue ultrafiltration dialysis. Continue current blood pressure regimen. 6. Hypermagnesemia secondary to traumatic brain injury. Continue dialysis. 7. Anemia of chronic disease. Monitor hemoglobin and hematocrit levels. Continue Epogen. 8. Lumbar osteomyelitis, status post laminectomy. Continue to monitor. Continue antibiotics. 8. Diabetes. Continue Accu-Cheks and sliding scale. 9. Benign prostatic hypertrophy. Continue current medical management. 10. Diabetic retinopathy. Continue to monitor. Subjective 24 Hr Interval Summary Free Text/Dictation renal follow up SUBJECTIVE: The patient was initiated on hemodialysis yesterday, tolerated well , anticipate dialysis again today. No other events noted. OBJECTIVE: HEENT: Head is normocephalic. NECK: Supple. HEART: Regular rate. LUNGS: Show diminished breath sounds at the base. ABDOMEN: Soft, nontender to palpation without rebound or guarding. EXTREMITIES: Negative for clubbing, cyanosis. Positive edema. DERMATOLOGIC: No rashes. MUSCULOSKELETAL: No joint effusions. NEUROLOGIC: No change in exam. MEDICATIONS: The patient's medications have been reviewed. Exam/Review of Systems Vital Signs Vitals Vital Signs Date Time Temp Pulse Resp B/P Pulse Ox O2 Delivery O2 Flow Rate FiO2 09/07/16 11:17 Nasal Cannula 2.0 09/07/16 08:00 98.6 66 19 147/71 93 Intake and Output 09/06/16 09/06/16 09/07/16 15:00 23:00 07:00 Intake Total 500 ml 950 ml 240 ml Output Total 2500 ml 150 ml 200 ml Balance -2000 ml 800 ml 40 ml Results Result Diagram: 09/06/16 0430 09/06/16 0430 Results 24 hrs Laboratory Tests Test 09/06/16 17:13 09/06/16 20:58 09/07/16 07:51 09/07/16 11:43 Bedside Glucose 119 126 114 129 Medications Medications Current Medications Carvedilol (Coreg) 6.25 mg BID PO Last administered on 09/07/16 09:35; Admin Dose 6.25 MG; Start 09/01/16 at 23:00 Finasteride (Proscar) 5 mg DAILY PO Last administered on 09/07/16 09:32; Admin Dose 5 MG; Start 09/02/16 at 09:00 Minoxidil (Loniten) 5 mg BID PO Last administered on 09/07/16 09:33; Admin Dose 5 MG; Start 09/02/16 at 09:00 Oxycodone/ Acetaminophen (Percocet (5/ 325)) maximum total acetaminop... Q4 PRN PO PAIN LEVEL 1-5 Last administered on 09/03/16 22:08; Admin Dose 1 TAB; Start 09/01/16 at 23:00 Simethicone (Mylicon) 80 mg Q6H PRN PO DISTENSION/GAS/BLOATING; Start 09/01/16 at 23:00 Tamsulosin HCl (Flomax) 0.4 mg QHS PO Last administered on 09/06/16 21:05; Admin Dose 0.4 MG; Start 09/02/16 at 21:00 Heparin Sodium (Porcine) (Heparin (5000 Units/0.5 ml)) 5,000 unit Q12 SC Last administered on 09/06/16 21:08; Admin Dose 5,000 UNIT; Start 09/02/16 at 09:00 Morphine Sulfate (morphine) 3 mg Q4H PRN IV PAIN LEVEL 6-10 Last administered on 09/05/16 17:30; Admin Dose 3 MG; Start 09/01/16 at 23:30 Ondansetron HCl (Zofran Inj) 4 mg Q6H PRN IV NAUSEA AND/OR VOMITING Last administered on 09/06/16 08:45; Admin Dose 4 MG; Start 09/01/16 at 23:30 Diagnostic Test (Pha) (Accu-Chek) 1 ea 02 XX ; Start 09/02/16 at 02:00 Isosorbide Dinitrate (Isordil) 20 mg TID PO Last administered on 09/07/16 09: 33; Admin Dose 20 MG; Start 09/01/16 at 23:00 Miscellaneous Information 1 ea NOTE XX ; Start 09/01/16 at 23:30 Glucose (Glutose) 15 gm Q15M PRN PO DECREASED GLUCOSE; Start 09/01/16 at 23:30 Glucose (Glutose) 22.5 gm Q15M PRN PO DECREASED GLUCOSE; Start 09/01/16 at 23: 30 Dextrose (D50w Syringe) 25 ml Q15M PRN IV DECREASED GLUCOSE; Start 09/01/16 at 23:30 Dextrose (D50w Syringe) 50 ml Q15M PRN IV DECREASED GLUCOSE; Start 09/01/16 at 23:30 Glucagon (Glucagen) 1 mg Q15M PRN IM DECREASED GLUCOSE; Start 09/01/16 at 23:30 Glucose (Glutose) 15 gm Q15M PRN BUCCAL DECREASED GLUCOSE; Start 09/01/16 at 23 :30 Lactulose (Enulose) 30 gm BID PO Last administered on 09/07/16 09:32; Admin Dose 30 GM; Start 09/02/16 at 21:00 Famotidine 20 mg 20 mg DAILY PO Last administered on 09/07/16 09:32; Admin Dose 20 MG; Start 09/04/16 at 09:00 Cefepime HCl 50 ml @ 100 mls/hr Q24H IVPB Last administered on 09/06/16 17:13 ; Admin Dose 100 MLS/HR; Start 09/04/16 at 18:00 Caspofungin/ Sodium Chloride (Cancidas/NS) 250 ml @ 250 mls/hr Q24H IV Last administered on 09/06/16 17:48; Admin Dose 250 MLS/HR; Start 09/05/16 at 18:00 Neomycin/ Polymyxin/ Bacitracin (Neosporin Topical Oint) 1 applic BID TOP Last administered on 09/07/16 09:34; Admin Dose 1 APPLIC; Start 09/04/16 at 21:00; Stop 09/11/16 at 20:59 Potassium Chloride (Klor-Con 20) 40 meq DAILY PO Last administered on 09:33; Admin Dose 40 MEQ; Start 09/05/16 at 12:00 Levothyroxine Sodium (Synthroid) 75 mcg DAILY@06 PO ; Start 09/08/16 at 06:00 Lactobacillus Acidoph/Bulgaricus (Floranex) 1 tab BID PO ; Start 09/07/16 at 21: 00 Cholecalciferol (Vitamin D) 1,000 unit DAILY PO ; Start 09/07/16 at 12:30 ALEJANDRO PEREZ DO Sep 07, 2016 12:32
[2016-09-07] MEDS: CHOLECALCIFEROL 1,000 UNIT TAB PO SCH (13:05)
[2016-09-07] MEDS: CEFEPIME 1GM/50 ML (PMX) 50 ML IVPB SCH (16:57)
[2016-09-07] MEDS: CASPOFUNGIN 50 MG in NS 250 ML IV SCH (16:57)
--- NOTE | 2016-09-07 19:09 | DS ---
DATE OF ADMISSION: 09/01/2016 DATE OF DISCHARGE: PRIMARY CARE PHYSICIAN: Unknown. 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 DIAGNOSES ON DISCHARGE: 1. Atypical chest pain/pleurisy. 2. Acute renal failure. 3. Chronic osteomyelitis. 4. Hepatitis C viremia. HOSPITAL COURSE: This is a 56-year-old gentleman admitted with atypical chest or back pain, ruled o la for acute coronary syndrome by enzymes, EKG symptoms. Actually, the patient was seen in [facility] and transferred here for continuity. He was seen by cardiology. Troponins were false posi tive. Two-D echo was within normal limits. He was optimized and transferred. EF of 60%. No wall motion abnormalities. There was poor R-wave progression through his septal leads. The plan at this time is to continue to optimize medical management and risk factor modification. I feel the patient had more of an issue with anasarca. The patient is seen here by nephrology. Royal al function did not improve to his baseline. Patient was started on dialysis. He is tolerating issa lysis. He has been set up for outpatient dialysis. Hepatitis panel done. Potentially will need AV mapping and a fistula down the line. The patient was seen here by infectious disease for chronic osteomyelitis. The plan is to continue antibiotics via a central line. The patient was seen by neurosurgery. [place] removed. The wound is intact. The Cox catheter will be removed once the patient is more ambulatory. The patient has started physical therapy here. He is improving on a daily basis. Thyroid found to be really low. Replacement therapy started. Ileus, probably due to anasarca. This is stable. Continue active bowel care regimen. Diabetes, metabolic syndrome, stable. Continue diabetic care plan. History of psoas muscle abscess. History of BPH. Chronic COPD. Possible history of chronic left ear otitis externa. Acute cystitis. The patient to finish therapy. IMAGING STUDIES: Chest x-ray: [id number] fluid overload. Non-tunneled dialysis catheter ins erted by radiology under ultrasound guidance. KUB did not show any stones. CT abdomen and pelvis w ithout contrast read as pleural effusion, small pericardial effusion, extensive vascular calcificati ons with diabetic vasculopathy, no obstructive uropathy, right renal calculus seen on CT, chronic pa ncreatitis, mild anasarca, bladder wall thickening seen on ultrasound. Other ultrasound did not eric w any DVT. LABORATORY DATA: Urine showed Katharina glabrata and Enterobacter aerogenes. The Katharina was 100,000 . White cell count of 3.4, H and H of 9 and 27, MCV 92, platelets of 81. No active bleeding. May continue DVT prophylaxis by heparin and Lovenox. INR 1.4. Urine studies done. Vancomycin dosed by pharmacy. Hepatitis panel abnormal. RNA of 39,000. Sodium 145, potassium 3.4, chloride 109, bica rbonate 24, BUN of 32, creatinine of 3.6, glucose of 90. Vitamin D level of 16, which is low. TSH of 20.7. AST and ALT of 12 and 27, alkaline phosphatase of 44, protein of 7, albumin of 3.4. Trigl ycerides 77, total of 88, HDL of 48, LDL of 25 apparently, lipase of 10. A1c of 6.7. MEDICATIONS ON DISCHARGE: 1. Coreg 6.25 twice daily. 2. Pepcid 20 daily, maybe 5 more days. 3. Proscar 5 daily. 4. Insulin as needed. 5. Glucagon as needed. 6. Heparin 5000 units subcutaneous twice daily, maybe 5 more days. 7. Isordil 20 mg 3 times daily. 8. Culturelle 1 capsule twice daily. 9. Lactulose 30 grams once daily. 10. Synthroid 75 mcg daily. 11. Minoxidil 5 mg twice daily. 12. Topical neomycin b.i.d. 13. Potassium 40 mEq daily. 14. Renagel 800 mg with meals. 15. Flomax 0.4 at bedtime daily. 16. Vitamin D 50,000 units once a week or 1000 units daily. Antibiotics and antifungal as recommended by ID, probably cefepime 1 gram daily and caspofungin 50 m g daily. Dictated By: JAN HEMPHILL MD AC/NTS Conf#: [id number] DID#: [id number] CC: JUDSON TREVINO MD; PARDEEP VAZQUEZ MD; NAE MENDOZA DO;*EndCC*
[2016-09-07 19:55] VITALS: BP 125/66; RESP 18
[2016-09-07] MEDS: morphine 4 MG/ML VIAL IV PRN (20:23)
[2016-09-07] MEDS: TAMSULOSIN (SR) 0.4 MG CAP PO SCH (20:30)
--- NOTE | 2016-09-07 20:34 | CONS ---
Date/Time of Note Date/Time of Note DATE: 09/07/16 TIME: 20:34 Assessment/Plan Assessment/Plan Chief Complaint/Hosp Course SUBJECTIVE: No acute events. Lying comfortably in bed. No fevers. INDWELLINGS: Cox and Johnathan catheter, right IJ placed on 09/04/2016. MICROBIOLOGY: Urine culture growing Enterobacter aerogenesis and Katharina glabrata. ANTIMICROBIALS: 1. Cancidas. 2. Cefepime. PHYSICAL EXAMINATION: GENERAL: Chronically ill-appearing, middle-aged man who is in no distress. HEENT: Head atraumatic, normocephalic. Sclerae anicteric. Buccal mucosa dry. NECK: Supple, trachea midline. CHEST: Rise symmetrical. Breath sounds diminished to bases. HEART: S1, S2. ABDOMEN: Obese, distended, soft. Bowel tones hypoactive. EXTREMITIES: Without cyanosis. SKIN: Positive for anasarca. ASSESSMENT: 1. Acute on chronic respiratory failure with significant anasarca, status post Johnathan placement, started on hemodialysis. 2. Recurrent urinary tract infection. 3. Status post methicillin-resistant Staphylococcus aureus spinal abscess removal with decompressive laminectomy on 09/09/2016. 4. Diabetes. 5. Hypertension. 6. History of left otomastoiditis. PLAN: The patient remains stable. Continue present care, complete abx, management as per primary team and consultants. DW staff Problems: Consultation Date/Type/Reason Admit Date/Time Sep 01, 2016 at 17:29 Type of Consultation: ID Exam/Review of Systems Vital Signs Vitals Vital Signs Date Time Temp Pulse Resp B/P Pulse Ox O2 Delivery O2 Flow Rate FiO2 09/07/16 11:17 Nasal Cannula 2.0 09/07/16 08:00 98.6 66 19 147/71 93 Intake and Output 09/06/16 09/06/16 09/07/16 15:00 23:00 07:00 Intake Total 500 ml 950 ml 240 ml Output Total 2500 ml 150 ml 200 ml Balance -2000 ml 800 ml 40 ml Results Result Diagram: 09/06/16 0430 09/06/16 0430 Results 24 hrs Laboratory Tests Test 09/06/16 20:58 09/07/16 07:51 09/07/16 11:43 09/07/16 16:56 Bedside Glucose 126 114 129 125 Medications Medications Current Medications Carvedilol (Coreg) 6.25 mg BID PO Last administered on 09/07/16 09:35; Admin Dose 6.25 MG; Start 09/01/16 at 23:00 Finasteride (Proscar) 5 mg DAILY PO Last administered on 09/07/16 09:32; Admin Dose 5 MG; Start 09/02/16 at 09:00 Minoxidil (Loniten) 5 mg BID PO Last administered on 09/07/16 09:33; Admin Dose 5 MG; Start 09/02/16 at 09:00 Oxycodone/ Acetaminophen (Percocet (5/ 325)) maximum total acetaminop... Q4 PRN PO PAIN LEVEL 1-5 Last administered on 09/03/16 22:08; Admin Dose 1 TAB; Start 09/01/16 at 23:00 Simethicone (Mylicon) 80 mg Q6H PRN PO DISTENSION/GAS/BLOATING; Start 09/01/16 at 23:00 Tamsulosin HCl (Flomax) 0.4 mg QHS PO Last administered on 09/06/16 21:05; Admin Dose 0.4 MG; Start 09/02/16 at 21:00 Heparin Sodium (Porcine) (Heparin (5000 Units/0.5 ml)) 5,000 unit Q12 SC Last administered on 09/06/16 21:08; Admin Dose 5,000 UNIT; Start 09/02/16 at 09:00 Morphine Sulfate (morphine) 3 mg Q4H PRN IV PAIN LEVEL 6-10 Last administered on 09/07/16 20:23; Admin Dose 3 MG; Start 09/01/16 at 23:30 Ondansetron HCl (Zofran Inj) 4 mg Q6H PRN IV NAUSEA AND/OR VOMITING Last administered on 09/06/16 08:45; Admin Dose 4 MG; Start 09/01/16 at 23:30 Diagnostic Test (Pha) (Accu-Chek) 1 ea 02 XX ; Start 09/02/16 at 02:00 Isosorbide Dinitrate (Isordil) 20 mg TID PO Last administered on 09/07/16 13: 05; Admin Dose 20 MG; Start 09/01/16 at 23:00 Miscellaneous Information 1 ea NOTE XX ; Start 09/01/16 at 23:30 Glucose (Glutose) 15 gm Q15M PRN PO DECREASED GLUCOSE; Start 09/01/16 at 23:30 Glucose (Glutose) 22.5 gm Q15M PRN PO DECREASED GLUCOSE; Start 09/01/16 at 23: 30 Dextrose (D50w Syringe) 25 ml Q15M PRN IV DECREASED GLUCOSE; Start 09/01/16 at 23:30 Dextrose (D50w Syringe) 50 ml Q15M PRN IV DECREASED GLUCOSE; Start 09/01/16 at 23:30 Glucagon (Glucagen) 1 mg Q15M PRN IM DECREASED GLUCOSE; Start 09/01/16 at 23:30 Glucose (Glutose) 15 gm Q15M PRN BUCCAL DECREASED GLUCOSE; Start 09/01/16 at 23 :30 Lactulose (Enulose) 30 gm BID PO Last administered on 09/07/16 09:32; Admin Dose 30 GM; Start 09/02/16 at 21:00 Famotidine 20 mg 20 mg DAILY PO Last administered on 09/07/16 09:32; Admin Dose 20 MG; Start 09/04/16 at 09:00 Cefepime HCl 50 ml @ 100 mls/hr Q24H IVPB Last administered on 09/07/16 16:57 ; Admin Dose 100 MLS/HR; Start 09/04/16 at 18:00 Caspofungin/ Sodium Chloride (Cancidas/NS) 250 ml @ 250 mls/hr Q24H IV Last administered on 09/07/16 16:57; Admin Dose 250 MLS/HR; Start 09/05/16 at 18:00 Neomycin/ Polymyxin/ Bacitracin (Neosporin Topical Oint) 1 applic BID TOP Last administered on 09/07/16 09:34; Admin Dose 1 APPLIC; Start 09/04/16 at 21:00; Stop 09/11/16 at 20:59 Potassium Chloride (Klor-Con 20) 40 meq DAILY PO Last administered on 09:33; Admin Dose 40 MEQ; Start 09/05/16 at 12:00 Levothyroxine Sodium (Synthroid) 75 mcg DAILY@06 PO ; Start 09/08/16 at 06:00 Lactobacillus Acidoph/Bulgaricus (Floranex) 1 tab BID PO ; Start 09/07/16 at 21: 00 Cholecalciferol (Vitamin D) 1,000 unit DAILY PO Last administered on 09/07/16t 13:05; Admin Dose 1,000 UNIT; Start 09/07/16 at 12:30 DORENE GARCIA NP Sep 07, 2016 20:34
[2016-09-08] VITALS (10 sets, daily range): BP systolic 88–143; BP diastolic 46–90; PULSE 55–64; RESP 18–19
[2016-09-08] MEDS: ACCU-CHEK XX SCH ×2 (02:00→22:53)
[2016-09-08] MEDS: morphine 4 MG/ML VIAL IV PRN ×3 (05:21→22:44)
[2016-09-08] MEDS: LEVOTHYROXINE 75 MCG TAB PO SCH (05:21)
[2016-09-08 05:42] LABS: ADD SCAN DIFF NO
[2016-09-08 05:51] LABS: ABNORMAL IP MESSAGE 1; EOSINOPHILS # 0.2 10^3/ul (0.0-0.5); EOSINOPHILS % 5.8 % (0.0-7.0); HEMATOCRIT 29.5 % (42.0-52.0); HEMOGLOBIN 9.9 g/dl (14.0-18.0); LYMPHOCYTES # 1.1 10^3/ul (0.8-2.9); LYMPHOCYTES % 36.9 % (15.0-51.0); MEAN CORPUSCULAR HEMOGLOBIN 30.6 pg (29.0-33.0); MEAN CORPUSCULAR HGB CONC 33.6 g/dl (32.0-37.0); MEAN PLATELET VOLUME 11.2 fl (7.4-10.4); MONOCYTE # 0.3 10^3/ul (0.3-0.9); MONOCYTES % 8.7 % (0.0-11.0); NEUTROPHIL # 1.5 10^3/ul (1.6-7.5); NEUTROPHILS % 47.3 % (39.0-77.0); PLATELET COUNT 79 10^3/UL (140-415); RED BLOOD COUNT 3.24 10^6/ul (4.70-6.10); RED CELL DISTRIBUTION WIDTH 15.7 % (11.5-14.5); WHITE BLOOD COUNT 3.1 10^3/ul (4.8-10.8)
[2016-09-08] MEDS: SEVELAMER 800 MG TAB PO SCH ×3 (07:51→17:33)
[2016-09-08] MEDS: INSULIN ASPART [NOVOLOG] 3 ML PEN SC SCH ×4 (07:54→21:00)
[2016-09-08] MEDS: LACTULOSE 30ML CUP PO SCH ×2 (08:45→22:41)
[2016-09-08] MEDS: CHOLECALCIFEROL 1,000 UNIT TAB PO SCH (08:46)
[2016-09-08] MEDS: POTASSIUM CHLORIDE (SR) 20 MEQ TAB PO SCH (08:47)
[2016-09-08] MEDS: MINOXIDIL 2.5 MG TAB PO SCH ×2 (08:47→22:42)
[2016-09-08] MEDS: FINASTERIDE 5 MG TAB PO SCH (08:47)
[2016-09-08] MEDS: FAMOTIDINE 20 MG TAB PO SCH (08:47)
[2016-09-08] MEDS: ISOSORBIDE DINITRATE 20 MG TAB PO SCH ×3 (08:48→22:41)
[2016-09-08] MEDS: LACTOBACILLUS CHEW TAB PO SCH ×2 (08:48→22:41)
[2016-09-08] MEDS: HEPARIN 5,000 UNIT/0.5 ML VIAL SC SCH ×2 (08:49→22:43)
[2016-09-08] MEDS: NEOMYC/POLYMYX/BACIT 30 GM OINT TOP SCH ×2 (08:49→22:43)
[2016-09-08] MEDS ORDERED: LACTOBACILLUS CHEW TAB PO SCH (09:00)
--- NOTE | 2016-09-08 10:19 | PN ---
DATE: 09/08/2016 SUBJECTIVE: The patient is stable, no acute events overnight. The patient is clinically improving with hemodialysis, scheduled for dialysis today. No other events noted. OBJECTIVE: VITAL SIGNS: Blood pressure 111/66, respiration 18, pulse 57, temperature 97.5. HEENT: Head is normocephalic. NECK: Supple. HEART: Regular rate. LUNGS: Show diminished breath sounds at base. ABDOMEN: Soft, nontender to palpation. No rebound, guarding. EXTREMITIES: Negative for clubbing, cyanosis. Positive edema. DERMATOLOGIC: No rashes. MUSCULOSKELETAL: No joint effusions. NEUROLOGIC: No change in exam. MEDICATIONS: Have been reviewed. LABORATORY DATA: Has been reviewed. No new labs. ASSESSMENT AND PLAN: 1. Nonoliguric acute kidney injury on top of chronic kidney disease stage IV with a baseline creati nine 3 mg/dL. Etiology of acute kidney injury is secondary to acute tubular necrosis. Patient has not progressed towards end-stage renal disease. The patient is receiving dialysis intermittently 3 to 4 times weekly. Plan at this point is to continue dialysis. Will have Perm-A-Cath placement and arrange outpatient hemodialysis at [facility]. 2. Metabolic acidosis secondary to acute kidney injury, resolved. 3. Hypertension, improving. Continue current blood pressure regimen. Continue ultrafiltration issa lysis. 4. Anemia of chronic disease. Continue to monitor hemoglobin and hematocrit levels. Continue Epog en. 5. Osteomyelitis, status post laminectomy. Continue to monitor. Continue antibiotic therapy. 6. Diabetes. Continue current insulin regimen. 7. Benign prostatic hypertrophy. Continue medical management. 8. History of diabetic retinopathy. Dictated By: NAE SINHA/ERICKA Conf#: [id number] DID#: [id number]
--- NOTE | 2016-09-08 15:59 | CONS ---
Date/Time of Note Date/Time of Note DATE: 09/08/16 TIME: 15:58 Assessment/Plan Assessment/Plan Chief Complaint/Hosp Course SUBJECTIVE: No acute events. Sleeping. No fevers. NAD INDWELLINGS: Cox and Johnathan catheter, right IJ placed on 09/04/2016. MICROBIOLOGY: Urine culture growing Enterobacter aerogenesis and Katharina glabrata. ANTIMICROBIALS: 1. Cancidas. 2. Cefepime. PHYSICAL EXAMINATION: GENERAL: Chronically ill-appearing, middle-aged man who is in no distress. HEENT: Head atraumatic, normocephalic. Sclerae anicteric. Buccal mucosa dry. NECK: Supple, trachea midline. CHEST: Rise symmetrical. Breath sounds diminished to bases. HEART: S1, S2. ABDOMEN: Obese, distended, soft. Bowel tones hypoactive. EXTREMITIES: Without cyanosis. SKIN: Positive for anasarca. ASSESSMENT: 1. Acute on chronic respiratory failure with significant anasarca, status post Johnathan placement, started on hemodialysis. 2. Recurrent urinary tract infection. 3. Status post methicillin-resistant Staphylococcus aureus spinal abscess removal with decompressive laminectomy on 09/09/2016. 4. Diabetes. 5. Hypertension. 6. History of left otomastoiditis. PLAN: The patient remains stable. Continue present care, complete abx for couple more days, management as per primary team and consultants. DW staff Problems: Consultation Date/Type/Reason Admit Date/Time Sep 01, 2016 at 17:29 Type of Consultation: ID Exam/Review of Systems Vital Signs Vitals Vital Signs Date Time Temp Pulse Resp B/P Pulse Ox O2 Delivery O2 Flow Rate FiO2 09/08/16 13:00 Nasal Cannula 2.0 09/08/16 08:10 97.5 57 18 111/66 96 Intake and Output 09/07/16 09/07/16 09/08/16 15:00 23:00 07:00 Intake Total 910 ml 240 ml Output Total 250 ml 300 ml Balance 660 ml -60 ml Results Result Diagram: 09/08/16 0524 09/06/16 0430 Results 24 hrs Laboratory Tests Test 09/07/16 16:56 09/07/16 20:39 09/08/16 05:24 09/08/16 07:53 Bedside Glucose 125 115 114 White Blood Count 3.1 L Red Blood Count 3.24 L Hemoglobin 9.9 L Hematocrit 29.5 L Mean Corpuscular Volume 91.0 Mean Corpuscular Hemoglobin 30.6 Mean Corpuscular Hemoglobin Concent 33.6 Red Cell Distribution Width 15.7 H Platelet Count 79 L Mean Platelet Volume 11.2 H Neutrophils % 47.3 Lymphocytes % 36.9 Monocytes % 8.7 Eosinophils % 5.8 Basophils % 1.0 Nucleated Red Blood Cells % 0.0 Neutrophils # 1.5 L Lymphocytes # 1.1 Monocytes # 0.3 Eosinophils # 0.2 Basophils # 0.0 Nucleated Red Blood Cells # 0.0 Test 09/08/16 12:07 Bedside Glucose 143 Medications Medications Current Medications Carvedilol (Coreg) 6.25 mg BID PO Last administered on 09/07/16 09:35; Admin Dose 6.25 MG; Start 09/01/16 at 23:00 Finasteride (Proscar) 5 mg DAILY PO Last administered on 09/08/16 08:47; Admin Dose 5 MG; Start 09/02/16 at 09:00 Minoxidil (Loniten) 5 mg BID PO Last administered on 09/08/16 08:47; Admin Dose 5 MG; Start 09/02/16 at 09:00 Oxycodone/ Acetaminophen (Percocet (5/ 325)) maximum total acetaminop... Q4 PRN PO PAIN LEVEL 1-5 Last administered on 09/03/16 22:08; Admin Dose 1 TAB; Start 09/01/16 at 23:00 Simethicone (Mylicon) 80 mg Q6H PRN PO DISTENSION/GAS/BLOATING; Start 09/01/16 at 23:00 Tamsulosin HCl (Flomax) 0.4 mg QHS PO Last administered on 09/07/16 20:30; Admin Dose 0.4 MG; Start 09/02/16 at 21:00 Heparin Sodium (Porcine) (Heparin (5000 Units/0.5 ml)) 5,000 unit Q12 SC Last administered on 09/07/16 20:52; Admin Dose 5,000 UNIT; Start 09/02/16 at 09:00 Morphine Sulfate (morphine) 3 mg Q4H PRN IV PAIN LEVEL 6-10 Last administered on 09/08/16 10:53; Admin Dose 3 MG; Start 09/01/16 at 23:30 Ondansetron HCl (Zofran Inj) 4 mg Q6H PRN IV NAUSEA AND/OR VOMITING Last administered on 09/06/16 08:45; Admin Dose 4 MG; Start 09/01/16 at 23:30 Diagnostic Test (Pha) (Accu-Chek) 1 ea 02 XX ; Start 09/02/16 at 02:00 Isosorbide Dinitrate (Isordil) 20 mg TID PO Last administered on 09/07/16 13: 05; Admin Dose 20 MG; Start 09/01/16 at 23:00 Miscellaneous Information 1 ea NOTE XX ; Start 09/01/16 at 23:30 Glucose (Glutose) 15 gm Q15M PRN PO DECREASED GLUCOSE; Start 09/01/16 at 23:30 Glucose (Glutose) 22.5 gm Q15M PRN PO DECREASED GLUCOSE; Start 09/01/16 at 23: 30 Dextrose (D50w Syringe) 25 ml Q15M PRN IV DECREASED GLUCOSE; Start 09/01/16 at 23:30 Dextrose (D50w Syringe) 50 ml Q15M PRN IV DECREASED GLUCOSE; Start 09/01/16 at 23:30 Glucagon (Glucagen) 1 mg Q15M PRN IM DECREASED GLUCOSE; Start 09/01/16 at 23:30 Glucose (Glutose) 15 gm Q15M PRN BUCCAL DECREASED GLUCOSE; Start 09/01/16 at 23 :30 Lactulose (Enulose) 30 gm BID PO Last administered on 09/08/16 08:45; Admin Dose 30 GM; Start 09/02/16 at 21:00 Famotidine 20 mg 20 mg DAILY PO Last administered on 09/08/16 08:47; Admin Dose 20 MG; Start 09/04/16 at 09:00 Cefepime HCl 50 ml @ 100 mls/hr Q24H IVPB Last administered on 09/07/16 16:57 ; Admin Dose 100 MLS/HR; Start 09/04/16 at 18:00 Caspofungin/ Sodium Chloride (Cancidas/NS) 250 ml @ 250 mls/hr Q24H IV Last administered on 09/07/16 16:57; Admin Dose 250 MLS/HR; Start 09/05/16 at 18:00 Neomycin/ Polymyxin/ Bacitracin (Neosporin Topical Oint) 1 applic BID TOP Last administered on 09/08/16 08:49; Admin Dose 1 APPLIC; Start 09/04/16 at 21:00; Stop 09/11/16 at 20:59 Potassium Chloride (Klor-Con 20) 40 meq DAILY PO Last administered on 08:47; Admin Dose 40 MEQ; Start 09/05/16 at 12:00 Levothyroxine Sodium (Synthroid) 75 mcg DAILY@06 PO Last administered on 05:21; Admin Dose 75 MCG; Start 09/08/16 at 06:00 Lactobacillus Acidoph/Bulgaricus (Floranex) 1 tab BID PO Last administered on 08:48; Admin Dose 1 TAB; Start 09/07/16 at 21:00 Cholecalciferol (Vitamin D) 1,000 unit DAILY PO Last administered on 09/08/16 08:46; Admin Dose 1,000 UNIT; Start 09/07/16 at 12:30 DORENE GARCIA OFFICE MACHINE INSTALLER Sep 08, 2016 15:59
--- NOTE | 2016-09-08 16:21 | PN ---
DATE: 09/08/2016 TIME OF EVALUATION: 12:30 p.m. OBJECTIVE DATA: Vital signs remain stable. The patient remains afebrile. OBJECTIVE DATA: VITAL SIGNS: Temperature 97.7, pulse rate 57, respiratory rate 18, blood pressure 111/66, oxygen saturation 96% on low flow O2. GENERAL: This is a frail-looking male lying in bed in no apparent distress. HEENT: Head normocephalic and atraumatic. Eyes: Anicteric sclerae. Conjunctivae clear. ENT: Nasal septum is midline. Oral mucosa is dry. NECK: Supple. No JVD noticed. RESPIRATORY: Bilaterally clear to auscultation. No adventitious breath sounds heard. No use of accessory muscles of respiration. CARDIAC: Regular rate and rhythm. No murmurs heard. ABDOMEN: Soft, nontender and nondistended. Bowel sounds positive in all 4 quadrants. GENITOURINARY: The patient has a Cox catheter in place. EXTREMITIES: No cyanosis, no clubbing. Bilateral lower extremity 1+ pitting edema. Peripheral pulses on the lower extremities are diminished. NEUROLOGIC: The patient is awake, alert and oriented. Cranial nerves are grossly intact. LABORATORY AND DIAGNOSTIC DATA: WBC 3.1, hemoglobin 9.9, hematocrit 29.4, platelet count 79. ASSESSMENT AND PLAN: 1. Nonoliguric acute kidney injury on top of chronic kidney disease stage IV. The patient on hemodialysis. The patient is scheduled for a Perm-A-Cath placement. 2. Urinary tract infection. Continue antibiotics as per infectious diseases. No evidence of any septic shock. 3. Chest pain. Acute coronary syndrome has been ruled out. The patient recently had a stress test on 08/09/2006 that was negative for any reversible perfusion defects. 4. Recent spinal abscess with MRSA. Status post surgery on 07/12/2016. 5. Benign prostatic hypertrophy. Continue medications. 6. Normocytic normochromic anemia. Continue iron supplements. 7. Recent left malleolar extension mastoid opacification without associated effusions compatible with osteomyelitis. Status post antibiotic therapy. 8. Normocytic normochromic anemia, most probably anemia of end-stage renal disease. Continue to monitor H and H closely. Transfuse as needed. 9. Hypothyroidism. Continue Synthroid. 10. Essential hypertension. Continue antihypertensives. 11. Fluid, electrolytes and nutrition. Low cholesterol diet. 12. Diabetes mellitus. Hemoglobin A1c 6.0. Continue sliding scale insulin. Blood sugars fairly well controlled. 13. Deep venous thrombosis prophylaxis with subcutaneous heparin. 14. Gastrointestinal prophylaxis. Histamine 2 receptor blockers. PLAN: Continue antibiotics as per infectious diseases. Await PermCath placement. Case discussed with Dr. Hernandez. YONIS HERNANDEZ MD AM/NTS Conf#: [id number] DID#: [id number] MTDD
[2016-09-08] MEDS: CASPOFUNGIN 50 MG in NS 250 ML IV SCH (17:30)
[2016-09-08] MEDS: CEFEPIME 1GM/50 ML (PMX) 50 ML IVPB SCH (17:30)
[2016-09-08 17:41] LABS: CALCIUM 7.5 mg/dl (8.4-10.2); CREATININE 2.74 mg/dl (0.61-1.24); POTASSIUM 4.5 mmol/L (3.5-5.1)
[2016-09-08] MEDS ORDERED: HEPARIN 1000 UNITS/ML 10 ML INJ CATHETER ONE (21:00)
[2016-09-08] MEDS: TAMSULOSIN (SR) 0.4 MG CAP PO SCH (22:41)
[2016-09-09] VITALS (12 sets, daily range): BP systolic 90–131; BP diastolic 53–72; PULSE 55–58; RESP 16–18
[2016-09-09] MEDS ORDERED: SOD CHLORIDE 0.9% 1,000 ML IV SCH
[2016-09-09] MEDS: morphine 4 MG/ML VIAL IV PRN ×3 (03:46→20:05)
[2016-09-09] MEDS: LEVOTHYROXINE 75 MCG TAB PO SCH (04:32)
[2016-09-09 04:56] LABS: ADD SCAN DIFF NO
[2016-09-09 05:31] LABS: CALCIUM 7.8 mg/dl (8.4-10.2); CREATININE 2.05 mg/dl (0.61-1.24); MAGNESIUM 2.3 mg/dl (1.7-2.5); PHOSPHORUS 3.4 mg/dl (2.5-4.9); POTASSIUM 3.8 mmol/L (3.5-5.1)
[2016-09-09 05:39] LABS: ABNORMAL IP MESSAGE 1; BASOPHILS % 0.7 % (0.0-2.0); EOSINOPHILS # 0.2 10^3/ul (0.0-0.5); EOSINOPHILS % 5.9 % (0.0-7.0); HEMATOCRIT 28.8 % (42.0-52.0); HEMOGLOBIN 9.4 g/dl (14.0-18.0); LYMPHOCYTES # 1.1 10^3/ul (0.8-2.9); LYMPHOCYTES % 40.1 % (15.0-51.0); MEAN CORPUSCULAR HEMOGLOBIN 29.8 pg (29.0-33.0); MEAN CORPUSCULAR HGB CONC 32.6 g/dl (32.0-37.0); MEAN CORPUSCULAR VOLUME 91.4 fl (82.0-101.0); MEAN PLATELET VOLUME 11.4 fl (7.4-10.4); MONOCYTE # 0.2 10^3/ul (0.3-0.9); MONOCYTES % 7.7 % (0.0-11.0); NEUTROPHIL # 1.2 10^3/ul (1.6-7.5); NEUTROPHILS % 45.2 % (39.0-77.0); PLATELET COUNT 54 10^3/UL (140-415); RED BLOOD COUNT 3.15 10^6/ul (4.70-6.10); WHITE BLOOD COUNT 2.7 10^3/ul (4.8-10.8)
[2016-09-09] MEDS: SEVELAMER 800 MG TAB PO SCH ×3 (07:35→17:37)
[2016-09-09] MEDS: INSULIN ASPART [NOVOLOG] 3 ML PEN SC SCH ×5 (07:53→21:00)
[2016-09-09] MEDS: ISOSORBIDE DINITRATE 20 MG TAB PO SCH ×3 (09:00→21:38)
[2016-09-09] MEDS: HEPARIN 5,000 UNIT/0.5 ML VIAL SC SCH ×2 (09:00→21:38)
[2016-09-09] MEDS: FAMOTIDINE 20 MG TAB PO SCH (09:00)
[2016-09-09] MEDS: MINOXIDIL 2.5 MG TAB PO SCH (09:00)
[2016-09-09] MEDS: POTASSIUM CHLORIDE (SR) 20 MEQ TAB PO SCH (09:00)
[2016-09-09] MEDS: NEOMYC/POLYMYX/BACIT 30 GM OINT TOP SCH ×3 (09:00→21:40)
[2016-09-09] MEDS: LACTOBACILLUS CHEW TAB PO SCH (09:00)
[2016-09-09] MEDS: FINASTERIDE 5 MG TAB PO SCH (09:00)
[2016-09-09] MEDS: LACTULOSE 30ML CUP PO SCH ×2 (09:00→21:37)
[2016-09-09] MEDS: CHOLECALCIFEROL 1,000 UNIT TAB PO SCH (09:00)
[2016-09-09] MEDS ORDERED: CEFAZOLIN 1 GM/50 ML (PMX) 50 ML IVPB ONE (09:03)
[2016-09-09] MEDS ORDERED: LIDOCAINE 1% (MDV) 20 ML INJ ONE (09:03)
[2016-09-09] MEDS ORDERED: SOD CHLORIDE 0.9% 500 ML ONE (09:03)
[2016-09-09] MEDS ORDERED: HEPARIN 1000 UNITS/ML 10 ML INJ ONE ×2 (09:03→11:37)
[2016-09-09] MEDS ORDERED: MIDAZOLAM 1 MG/ML 2 ML INJ ONE (09:03)
[2016-09-09] MEDS ORDERED: FENTAnyl 50 MCG/ML VIAL ONE (09:03)
--- NOTE | 2016-09-09 11:11 | PN ---
DATE: 09/09/2016 SUBJECTIVE: The patient is clinically stable. He has been receiving near daily dialysis for volume removal, tolerating well. No other events noted. No hemoptysis, hematemesis or hematochezia. OBJECTIVE: VITAL SIGNS: Blood pressure is 118/70, respirations 16, pulse 64, temperature 97.8. HEENT: Head is normocephalic. NECK: Supple. HEART: Regular rate. LUNGS: Show diminished breath sounds at the base. ABDOMEN: Soft, nontender to palpation without rebound or guarding. EXTREMITIES: Negative for clubbing, cyanosis. Positive edema. DERMATOLOGIC: No rashes. MUSCULOSKELETAL: No joint effusions. NEUROLOGIC: No change in exam. MEDICATIONS: The patient's medications have been reviewed. LABORATORY DATA: Shows sodium 139, potassium 3.8, hematocrit 25, BUN 18, creatinine 2.05. White co unt 2.7, hemoglobin 9.4, hematocrit 28.8, platelet count is 54. ASSESSMENT AND PLAN: 1. Nonoliguric acute kidney injury on top of chronic kidney disease stage IV with previous baseline creatinine of 3.0 mg/dL. Etiology of current acute kidney injury is secondary to acute tubular nec rosis. Patient may have progressed towards end-stage renal disease. The patient has been receiving daily dialysis for solute clearance and volume removal. We will continue dialysis. Patient has no t shown full renal recovery yet. A Perm-A-Cath placement is pending and outpatient dialysis will be arranged. We will monitor for any signs of renal recovery during the outpatient setting. 2. Metabolic acidosis secondary to acute kidney injury, improved. 3. Hypertension, improving. Continue ultrafiltration dialysis. We will wean off blood pressure me dications. 4. Anemia of chronic disease. Continue monitor hemoglobin and hematocrit levels. Continue Epogen. 5. Osteomyelitis, status post laminectomy. Continue to monitor. Continue current antibiotic thera py. 6. Diabetes. Continue Accu-Cheks with insulin sliding scale. 7. Benign prostatic hypertrophy. Continue current medical management. 8. History of diabetic retinopathy. Dictated By: NAE SINHA/ERICKA Conf#: [id number] DID#: [id number]
--- NOTE | 2016-09-09 12:38 | PN ---
Date/Time of Note Date/Time of Note DATE: 09/09/16 TIME: 12:28 Assessment/Plan VTE Prophylaxis VTE Prophylaxis Intervention: heparin Lines/Catheters IV Catheter Type (from Nrsg): Johnathan catheter Urinary Cath still in place: Yes Reason Cath still needed: other (indicate) Assessment/Plan Assessment/Plan IMPRESSION: 1. History of lumbar osteomyelitis, status post laminectomy. 2. History of spinal abscess status post recent stent and drainage. 3. Acute on Chronic kidney disease: has been started on dialysis 4. Hypertension. 5. Diabetes. 6. Benign prostatic hypertrophy. 7. History of iron deficiency anemia. 8. Right eye blindness. 9. UTI (cx with Enterococcus Aerogenes and C. Glabrata) 10. Right Eye pain with naif-orbital Swelling PLAN: - Awaiting permacath placement - Cont current medical mgmt, including abx - Needs placement for outpt Dialysis - Warm compresses on Right eye. continued current abx. Will attempt culture from right eye. note that pt is Right eye blind. DVT ppx: SubQ Heparin GI ppx: PPI Further workup and management per clinical course. Subjective 24 Hr Interval Summary Free Text/Dictation c/o pain in right eye Exam/Review of Systems Vital Signs Vitals Vital Signs Date Time Temp Pulse Resp B/P Pulse Ox O2 Delivery O2 Flow Rate FiO2 09/09/16 11:50 55 18 93/70 98 Nasal Cannula 3.0 09/09/16 11:05 98.9 Intake and Output 09/08/16 09/08/16 09/09/16 15:00 23:00 07:00 Intake Total 1160 ml 300 ml Output Total 2800 ml 350 ml Balance -1640 ml -50 ml Exam GENERAL: The patient was initially sleepy but arousable. He appears somehow weak and speaking slowly. HEENT: No obvious head deformity. He is blind in the right eye, and there is minimal swelling around his right eye. CARDIOVASCULAR: Regular rate and rhythm. No extra heart sounds. LUNGS: Clear. ABDOMEN: Soft, nontender. No grimaces noted on palpation. Positive bowel sounds. EXTREMITIES: He has trace pitting edema. BACK: Pedicles are intact with no erythema. Palpitations also did not elicit any pain. . Results Result Diagram: 09/09/16 0425 09/09/16 0425 Results 24 hrs Laboratory Tests Test 09/08/16 17:31 09/08/16 21:26 09/09/16 04:25 09/09/16 07:40 Bedside Glucose 85 113 94 White Blood Count 2.7 L Red Blood Count 3.15 L Hemoglobin 9.4 L Hematocrit 28.8 L Mean Corpuscular Volume 91.4 Mean Corpuscular Hemoglobin 29.8 Mean Corpuscular Hemoglobin Concent 32.6 Red Cell Distribution Width 16.0 H Platelet Count 54 #L Mean Platelet Volume 11.4 H Neutrophils % 45.2 Lymphocytes % 40.1 Monocytes % 7.7 Eosinophils % 5.9 Basophils % 0.7 Nucleated Red Blood Cells % 0.0 Neutrophils # 1.2 L Lymphocytes # 1.1 Monocytes # 0.2 L Eosinophils # 0.2 Basophils # 0.0 Nucleated Red Blood Cells # 0.0 Sodium Level 139 Potassium Level 3.8 Chloride Level 105 Carbon Dioxide Level 27 Anion Gap 11 Blood Urea Nitrogen 18 Creatinine 2.05 H Glucose Level 92 Calcium Level 7.8 L Phosphorus Level 3.4 Magnesium Level 2.3 Test 09/09/16 09:56 Bedside Glucose 88 Medications Medications Current Medications Carvedilol (Coreg) 6.25 mg BID PO Last administered on 09/08/16 22:39; Admin Dose 6.25 MG; Start 09/01/16 at 23:00 Finasteride (Proscar) 5 mg DAILY PO Last administered on 09/08/16 08:47; Admin Dose 5 MG; Start 09/02/16 at 09:00 Oxycodone/ Acetaminophen (Percocet (5/ 325)) maximum total acetaminop... Q4 PRN PO PAIN LEVEL 1-5 Last administered on 09/03/16 22:08; Admin Dose 1 TAB; Start 09/01/16 at 23:00 Simethicone (Mylicon) 80 mg Q6H PRN PO DISTENSION/GAS/BLOATING; Start 09/01/16 at 23:00 Tamsulosin HCl (Flomax) 0.4 mg QHS PO Last administered on 09/08/16 22:41; Admin Dose 0.4 MG; Start 09/02/16 at 21:00 Heparin Sodium (Porcine) (Heparin (5000 Units/0.5 ml)) 5,000 unit Q12 SC Last administered on 09/07/16 20:52; Admin Dose 5,000 UNIT; Start 09/02/16 at 09:00 Morphine Sulfate (morphine) 3 mg Q4H PRN IV PAIN LEVEL 6-10 Last administered on 09/09/16 03:46; Admin Dose 3 MG; Start 09/01/16 at 23:30 Ondansetron HCl (Zofran Inj) 4 mg Q6H PRN IV NAUSEA AND/OR VOMITING Last administered on 09/06/16 08:45; Admin Dose 4 MG; Start 09/01/16 at 23:30 Diagnostic Test (Pha) (Accu-Chek) 1 ea 02 XX ; Start 09/02/16 at 02:00 Isosorbide Dinitrate (Isordil) 20 mg TID PO Last administered on 09/08/16 22: 41; Admin Dose 20 MG; Start 09/01/16 at 23:00 Miscellaneous Information 1 ea NOTE XX ; Start 09/01/16 at 23:30 Glucose (Glutose) 15 gm Q15M PRN PO DECREASED GLUCOSE; Start 09/01/16 at 23:30 Glucose (Glutose) 22.5 gm Q15M PRN PO DECREASED GLUCOSE; Start 09/01/16 at 23: 30 Dextrose (D50w Syringe) 25 ml Q15M PRN IV DECREASED GLUCOSE; Start 09/01/16 at 23:30 Dextrose (D50w Syringe) 50 ml Q15M PRN IV DECREASED GLUCOSE; Start 09/01/16 at 23:30 Glucagon (Glucagen) 1 mg Q15M PRN IM DECREASED GLUCOSE; Start 09/01/16 at 23:30 Glucose (Glutose) 15 gm Q15M PRN BUCCAL DECREASED GLUCOSE; Start 09/01/16 at 23 :30 Lactulose (Enulose) 30 gm BID PO Last administered on 09/08/16 22:41; Admin Dose 30 GM; Start 09/02/16 at 21:00 Famotidine 20 mg 20 mg DAILY PO Last administered on 09/08/16 08:47; Admin Dose 20 MG; Start 09/04/16 at 09:00 Cefepime HCl 50 ml @ 100 mls/hr Q24H IVPB Last administered on 09/08/16 17:30 ; Admin Dose 100 MLS/HR; Start 09/04/16 at 18:00 Caspofungin/ Sodium Chloride (Cancidas/NS) 250 ml @ 250 mls/hr Q24H IV Last administered on 09/08/16 17:30; Admin Dose 250 MLS/HR; Start 09/05/16 at 18:00 Neomycin/ Polymyxin/ Bacitracin (Neosporin Topical Oint) 1 applic BID TOP Last administered on 09/09/16 09:35; Admin Dose 1 APPLIC; Start 09/04/16 at 21:00; Stop 09/11/16 at 20:59 Levothyroxine Sodium (Synthroid) 75 mcg DAILY@06 PO Last administered on 05:21; Admin Dose 75 MCG; Start 09/08/16 at 06:00 Lactobacillus Acidoph/Bulgaricus (Floranex) 1 tab BID PO Last administered on 22:41; Admin Dose 1 TAB; Start 09/07/16 at 21:00 Cholecalciferol 1000 unit 1,000 unit DAILY PO Last administered on 09/08/16 08 :46; Admin Dose 1,000 UNIT; Start 09/07/16 at 12:30 Sodium Chloride (NS) 1,000 ml @ 30 mls/hr Q24H IV Last administered on 23:47; Admin Dose 30 MLS/HR; Start 09/09/16 at 00:00 GIOVANNI ODELL MD Sep 09, 2016 12:38
--- NOTE | 2016-09-09 13:12 | RADRPT ---
PROCEDURE: PLACEMENT OF RIGHT INTERNAL JUGULAR VENOUS TUNNELED DIALYSIS CATHETER. CLINICAL INDICATION: Renal failure. TECHNIQUE: Prior to the procedure, informed consent was obtained. Risks including bleeding, infection, and pneu mothorax were explained to the patient. The patient understood and was willing to proceed. A procedu ral pause was performed. The patient's name, date of , and procedure to be performed were verif ied. The central line was inserted with all elements of maximal sterile barrier technique. All of th e following were used: head covering, facial mask, sterile gown, sterile gloves, a large sterile she et, hand hygiene, and 2% chlorhexidine for cutaneous antisepsis. The right neck and anterior/super ior chest wall was prepped and draped in usual sterile fashion. Following the local injection of Xylocaine, a 0.035 in Amplatz guidewire was advanced through the ex isting temporary dialysis catheter. A tunnel was then created from the anterior lateral aspect of t he superior right chest wall to the puncture site in the neck and the catheter was pulled through th e tract. The existing temporary dialysis catheter was removed over the guidewire. Serial dilatatio n was then performed and a 16 Bahamian peel away sheath was introduced. The 14.5 Bahamian 23cm long tip to cuff Angiodynamics BioFlo DuraMax dialysis catheter was advanced through the 16 Bahamian peel-away sheath. The tip of the catheter was confirmed in position within the right atrium. The peel-away sh eath was removed. The 2 ports were each flushed with 2.3 ml of 1:1000 heparin. While securing the c atheter to the skin with the suture material, the needle inadvertently entered the catheter resultin g in a leak from the catheter. Therefore, the guidewire was advanced through the existing catheter and existing catheter was removed over a guide wire. Following this, a new 14.5 Bahamian 23cm tip to cuff Angiodynamics BioFlo DuraMax dialysis catheter was advanced over the guidewire and the tip was confirmed in satisfactory position within the upper right atrium. The catheter was secured to the s kin with 2-0 silk. The 2 ports were each flushed with 2.3 ml of 1:1000 heparin. The wound in the n henry was closed with 4-0 Vicryl suture using subcuticular running technique. The site was dressed. The patient tolerated the procedure well. COMPARISON: None. FINDINGS: Final radiographic images demonstrate the tip of the catheter in the upper right atrium. A total of 0.2 minutes of fluoroscopy time was used. IMPRESSION: 1. Percutaneous insertion of right internal jugular dialysis tunneled dialysis catheter under fluoro scopic guidance. RPTAT: QQ .Umang Dale MD, MD Date Time Electronically viewed and signed by .Umang Dale MD, on 09/09/2016 13:12 .R/
[2016-09-09] MEDS: CEFEPIME 1GM/50 ML (PMX) 50 ML IVPB SCH (17:37)
--- NOTE | 2016-09-09 17:52 | CONS ---
Date/Time of Note Date/Time of Note DATE: 09/09/16 TIME: 17:52 Assessment/Plan Assessment/Plan Chief Complaint/Hosp Course SUBJECTIVE: No acute events. No fevers. INDWELLINGS: Cox and Johnathan catheter MICROBIOLOGY: Urine culture growing Enterobacter aerogenesis and Katharina glabrata. ANTIMICROBIALS: 1. Cancidas. 2. Cefepime. PHYSICAL EXAMINATION: GENERAL: Chronically ill-appearing, middle-aged man who is in no distress. HEENT: Head atraumatic, normocephalic. Sclerae anicteric. Buccal mucosa dry. NECK: Supple, trachea midline. CHEST: Rise symmetrical. Breath sounds diminished to bases. HEART: S1, S2. ABDOMEN: Obese, distended, soft. Bowel tones hypoactive. EXTREMITIES: Without cyanosis. SKIN: Positive for anasarca. ASSESSMENT: 1. Acute on chronic respiratory failure with significant anasarca, status post Johnathan placement, started on hemodialysis. 2. Recurrent urinary tract infection. 3. Status post methicillin-resistant Staphylococcus aureus spinal abscess removal with decompressive laminectomy on 09/09/2016. 4. Diabetes. 5. Hypertension. 6. History of left otomastoiditis. PLAN: The patient remains stable. Continue present care, dc abx in am. DW staff Problems: Consultation Date/Type/Reason Admit Date/Time Sep 01, 2016 at 17:29 Type of Consultation: ID Exam/Review of Systems Vital Signs Vitals Vital Signs Date Time Temp Pulse Resp B/P Pulse Ox O2 Delivery O2 Flow Rate FiO2 09/09/16 14:18 57 16 131/72 97 Nasal Cannula 2.0 09/09/16 11:05 98.9 Intake and Output 09/08/16 09/08/16 09/09/16 15:00 23:00 07:00 Intake Total 1160 ml 300 ml Output Total 2800 ml 350 ml Balance -1640 ml -50 ml Results Result Diagram: 09/09/16 0425 09/09/16 0425 Results 24 hrs Laboratory Tests Test 09/08/16 21:26 09/09/16 04:25 09/09/16 07:40 09/09/16 09:56 Bedside Glucose 113 94 88 White Blood Count 2.7 L Red Blood Count 3.15 L Hemoglobin 9.4 L Hematocrit 28.8 L Mean Corpuscular Volume 91.4 Mean Corpuscular Hemoglobin 29.8 Mean Corpuscular Hemoglobin Concent 32.6 Red Cell Distribution Width 16.0 H Platelet Count 54 #L Mean Platelet Volume 11.4 H Neutrophils % 45.2 Lymphocytes % 40.1 Monocytes % 7.7 Eosinophils % 5.9 Basophils % 0.7 Nucleated Red Blood Cells % 0.0 Neutrophils # 1.2 L Lymphocytes # 1.1 Monocytes # 0.2 L Eosinophils # 0.2 Basophils # 0.0 Nucleated Red Blood Cells # 0.0 Sodium Level 139 Potassium Level 3.8 Chloride Level 105 Carbon Dioxide Level 27 Anion Gap 11 Blood Urea Nitrogen 18 Creatinine 2.05 H Glucose Level 92 Calcium Level 7.8 L Phosphorus Level 3.4 Magnesium Level 2.3 Test 09/09/16 12:23 09/09/16 17:22 Bedside Glucose 78 152 Medications Medications Current Medications Carvedilol (Coreg) 6.25 mg BID PO Last administered on 09/08/16 22:39; Admin Dose 6.25 MG; Start 09/01/16 at 23:00 Finasteride (Proscar) 5 mg DAILY PO Last administered on 09/08/16 08:47; Admin Dose 5 MG; Start 09/02/16 at 09:00 Oxycodone/ Acetaminophen (Percocet (5/ 325)) maximum total acetaminop... Q4 PRN PO PAIN LEVEL 1-5 Last administered on 09/03/16 22:08; Admin Dose 1 TAB; Start 09/01/16 at 23:00 Simethicone (Mylicon) 80 mg Q6H PRN PO DISTENSION/GAS/BLOATING; Start 09/01/16 at 23:00 Tamsulosin HCl (Flomax) 0.4 mg QHS PO Last administered on 09/08/16 22:41; Admin Dose 0.4 MG; Start 09/02/16 at 21:00 Heparin Sodium (Porcine) (Heparin (5000 Units/0.5 ml)) 5,000 unit Q12 SC Last administered on 09/07/16 20:52; Admin Dose 5,000 UNIT; Start 09/02/16 at 09:00 Morphine Sulfate (morphine) 3 mg Q4H PRN IV PAIN LEVEL 6-10 Last administered on 09/09/16 14:22; Admin Dose 3 MG; Start 09/01/16 at 23:30 Ondansetron HCl (Zofran Inj) 4 mg Q6H PRN IV NAUSEA AND/OR VOMITING Last administered on 09/06/16 08:45; Admin Dose 4 MG; Start 09/01/16 at 23:30 Diagnostic Test (Pha) (Accu-Chek) 1 ea 02 XX ; Start 09/02/16 at 02:00 Isosorbide Dinitrate (Isordil) 20 mg TID PO Last administered on 09/08/16 22: 41; Admin Dose 20 MG; Start 09/01/16 at 23:00 Miscellaneous Information 1 ea NOTE XX ; Start 09/01/16 at 23:30 Glucose (Glutose) 15 gm Q15M PRN PO DECREASED GLUCOSE; Start 09/01/16 at 23:30 Glucose (Glutose) 22.5 gm Q15M PRN PO DECREASED GLUCOSE; Start 09/01/16 at 23: 30 Dextrose (D50w Syringe) 25 ml Q15M PRN IV DECREASED GLUCOSE; Start 09/01/16 at 23:30 Dextrose (D50w Syringe) 50 ml Q15M PRN IV DECREASED GLUCOSE; Start 09/01/16 at 23:30 Glucagon (Glucagen) 1 mg Q15M PRN IM DECREASED GLUCOSE; Start 09/01/16 at 23:30 Glucose (Glutose) 15 gm Q15M PRN BUCCAL DECREASED GLUCOSE; Start 09/01/16 at 23 :30 Lactulose (Enulose) 30 gm BID PO Last administered on 09/08/16 22:41; Admin Dose 30 GM; Start 09/02/16 at 21:00 Famotidine 20 mg 20 mg DAILY PO Last administered on 09/08/16 08:47; Admin Dose 20 MG; Start 09/04/16 at 09:00 Cefepime HCl 50 ml @ 100 mls/hr Q24H IVPB Last administered on 09/09/16 17:37 ; Admin Dose 100 MLS/HR; Start 09/04/16 at 18:00 Caspofungin/ Sodium Chloride (Cancidas/NS) 250 ml @ 250 mls/hr Q24H IV Last administered on 09/08/16 17:30; Admin Dose 250 MLS/HR; Start 09/05/16 at 18:00 Neomycin/ Polymyxin/ Bacitracin (Neosporin Topical Oint) 1 applic BID TOP Last administered on 09/09/16 09:35; Admin Dose 1 APPLIC; Start 09/04/16 at 21:00; Stop 09/11/16 at 20:59 Levothyroxine Sodium (Synthroid) 75 mcg DAILY@06 PO Last administered on 05:21; Admin Dose 75 MCG; Start 09/08/16 at 06:00 Lactobacillus Acidoph/Bulgaricus (Floranex) 1 tab BID PO Last administered on 22:41; Admin Dose 1 TAB; Start 09/07/16 at 21:00 Cholecalciferol (Vitamin D) 1,000 unit DAILY PO Last administered on 09/08/16 08:46; Admin Dose 1,000 UNIT; Start 09/07/16 at 12:30 DORENE GARCIA NP Sep 09, 2016 17:52
[2016-09-09] MEDS: ONDANSETRON 4 MG INJ IV PRN (20:05)
[2016-09-09] MEDS: L ACIDOPHIL/B LACTIS/B LONGUM CAPSULE PO SCH (21:00)
[2016-09-09] MEDS: TAMSULOSIN (SR) 0.4 MG CAP PO SCH (21:41)
[2016-09-10] MEDS: morphine 4 MG/ML VIAL IV PRN ×5 (00:03→23:12)
[2016-09-10] MEDS: ACCU-CHEK XX SCH (02:00)
[2016-09-10 04:46] LABS: ADD SCAN DIFF NO
[2016-09-10] MEDS: LEVOTHYROXINE 75 MCG TAB PO SCH (04:58)
[2016-09-10 05:08] LABS: CALCIUM 7.5 mg/dl (8.4-10.2); CREATININE 2.27 mg/dl (0.61-1.24); MAGNESIUM 2.4 mg/dl (1.7-2.5); PHOSPHORUS 4.2 mg/dl (2.5-4.9); POTASSIUM 4.7 mmol/L (3.5-5.1)
[2016-09-10 05:18] LABS: ABNORMAL IP MESSAGE 1; BASOPHILS % 0.7 % (0.0-2.0); EOSINOPHILS # 0.2 10^3/ul (0.0-0.5); EOSINOPHILS % 5.1 % (0.0-7.0); HEMATOCRIT 28.3 % (42.0-52.0); HEMOGLOBIN 9.4 g/dl (14.0-18.0); LYMPHOCYTES # 1.2 10^3/ul (0.8-2.9); LYMPHOCYTES % 39.2 % (15.0-51.0); MEAN CORPUSCULAR HEMOGLOBIN 30.7 pg (29.0-33.0); MEAN CORPUSCULAR HGB CONC 33.2 g/dl (32.0-37.0); MEAN CORPUSCULAR VOLUME 92.5 fl (82.0-101.0); MEAN PLATELET VOLUME 11.3 fl (7.4-10.4); MONOCYTE # 0.3 10^3/ul (0.3-0.9); MONOCYTES % 8.4 % (0.0-11.0); NEUTROPHIL # 1.4 10^3/ul (1.6-7.5); NEUTROPHILS % 46.3 % (39.0-77.0); PLATELET COUNT 72 10^3/UL (140-415); RED BLOOD COUNT 3.06 10^6/ul (4.70-6.10); RED CELL DISTRIBUTION WIDTH 16.2 % (11.5-14.5)
[2016-09-10] MEDS: INSULIN ASPART [NOVOLOG] 3 ML PEN SC SCH ×4 (07:46→21:00)
[2016-09-10 08:00] VITALS: BP 112/67; RESP 16
[2016-09-10 08:08] VITALS: BP 112/67; RESP 16
[2016-09-10] MEDS: SEVELAMER 800 MG TAB PO SCH ×3 (08:51→17:37)
[2016-09-10] MEDS: FAMOTIDINE 20 MG TAB PO SCH (08:51)
[2016-09-10] MEDS: L ACIDOPHIL/B LACTIS/B LONGUM CAPSULE PO SCH ×2 (08:51→21:00)
[2016-09-10] MEDS: FINASTERIDE 5 MG TAB PO SCH (08:51)
[2016-09-10] MEDS: ISOSORBIDE DINITRATE 20 MG TAB PO SCH ×3 (08:52→21:50)
[2016-09-10] MEDS: CHOLECALCIFEROL 1,000 UNIT TAB PO SCH (08:53)
[2016-09-10] MEDS: LACTULOSE 30ML CUP PO SCH ×2 (08:53→21:51)
[2016-09-10] MEDS: HEPARIN 5,000 UNIT/0.5 ML VIAL SC SCH ×2 (08:55→21:53)
[2016-09-10] MEDS: NEOMYC/POLYMYX/BACIT 30 GM OINT TOP SCH ×2 (08:56→21:55)
[2016-09-10] MEDS ORDERED: FUROSEMIDE 100 MG INJ IV SCH (10:30)
--- NOTE | 2016-09-10 11:03 | PN ---
DATE: 09/10/2016 SUBJECTIVE: The patient is status post Perm-A-Cath placement yesterday. The patient continues to b e edematous but claims symptoms are improving as he has more appetite. The patient's urinary output; however, has remained poor. Only 350 mL in the last 24 hours. OBJECTIVE: VITAL SIGNS: Blood pressure is 112/67, respiration 16, pulse 62, temperature 97.7. HEENT: Head is normocephalic. NECK: Supple. HEART: Regular rate. LUNGS: Show diminished breath sounds at the base. ABDOMEN: Soft, nontender to palpation. No rebound or guarding. EXTREMITIES: Negative for clubbing, cyanosis. Positive edema upper and lower extremity. DERMATOLOGIC: No rashes. MUSCULOSKELETAL: No joint effusions. NEUROLOGIC: No change in exam. MEDICATIONS: The patient's medications have been reviewed. LABORATORY DATA: Shows sodium 138, potassium 3.7, chloride 106, BUN 19, creatinine 2.27, calcium 7. 5. White count 3.0, hemoglobin 9.4, hematocrit 28.3, platelet count 72. ASSESSMENT AND PLAN: 1. Nonoliguric acute kidney injury on top of chronic kidney disease stage IV with previous baseline creatinine around 3.0 mg/dL. Etiology of current acute kidney injury secondary to acute tubular ne crosis. The patient was felt to initially progress towards end-stage renal disease due to uremic sym ptoms and severe volume overload. The patient has had hemodialysis and after 4 sessions has had cli nical improvement. The patient's creatinine has been stable in the last 48 hours; however, urinary output still remains low. We will hold dialysis at this time and monitor renal function. We will s tart the patient on aggressive diuretic therapy and monitor closely. 2. Volume overload. Etiology secondary to end-stage renal disease, CHF. We will hold hemodialysis at this time, start the patient on aggressive diuretic therapy and monitor closely. 3. Metabolic acidosis secondary to acute kidney injury, improved. 4. Hypertension, improved. We will continue to wean off blood pressure medications. 5. Anemia of chronic disease. Continue to monitor hemoglobin and hematocrit levels. Continue Epog en. 6. Osteomyelitis, status post laminectomy. The patient is status post antibiotic therapy. Follow up with Infectious Disease. 7. Diabetes, continue Accu-Cheks and sliding scale. 8. Benign prostatic hypertrophy. Continue current medical management. 9. History of diabetic retinopathy. Dictated By: NAE SINHA/ERICKA Conf#: [id number] DID#: [id number]
--- NOTE | 2016-09-10 11:07 | PN ---
Date/Time of Note Date/Time of Note DATE: 09/10/16 TIME: 11:07 Assessment/Plan VTE Prophylaxis VTE Prophylaxis Intervention: heparin Lines/Catheters IV Catheter Type (from [facility]): PICC Line Central line still needed: Yes Urinary Cath still in place: Yes Reason Cath still needed: urinary retention Assessment/Plan Chief Complaint/Hosp Course 1. Nonoliguric acute kidney injury on top of chronic kidney disease stage IV. The patient on hemodialysis. Status post perm-A-Cath placement. 2. Urinary tract infection. Continue antibiotics as per infectious diseases. No evidence of any septic shock. 3. Chest pain. Acute coronary syndrome has been ruled out. Off and on the patient recently had a stress test on 08/09/2006 that was negative for any reversible perfusion defects. 4. Recent spinal abscess with MRSA. Status post surgery on 07/12/2016. 5. Benign prostatic hypertrophy. Continue medications. 6. Normocytic normochromic anemia. Continue iron supplements. 7. Recent left mastoid opacification without associated effusions compatible with osteomyelitis. Status post antibiotic therapy. 8. Normocytic normochromic anemia, most probably anemia of end-stage renal disease. Continue to monitor H and H closely. Transfuse as needed. 9. Hypothyroidism. Continue Synthroid. 10. Essential hypertension. Continue antihypertensives. 11. Fluid, electrolytes and nutrition. Low cholesterol diet. 12. Diabetes mellitus. Hemoglobin A1c 6.0. Continue sliding scale insulin. Blood sugars fairly well controlled. 13. Deep venous thrombosis prophylaxis with subcutaneous heparin. 14. Gastrointestinal prophylaxis. Histamine 2 receptor blockers. PLAN: Continue antibiotics as per infectious diseases. Await clearance from nephrology before discharge. As per nephrology, the patient's renal function is improving gradually. The patient may not need further dialysis. Case discussed with . Problems: Subjective 24 Hr Interval Summary Free Text/Dictation Vital signs stable. Exam/Review of Systems Vital Signs Vitals Vital Signs Date Time Temp Pulse Resp B/P Pulse Ox O2 Delivery O2 Flow Rate FiO2 09/10/16 08:00 97.7 62 16 112/67 95 09/09/16 14:18 Nasal Cannula 2.0 Intake and Output 09/09/16 09/09/16 09/10/16 15:00 23:00 07:00 Intake Total 300 ml 710 ml 250 ml Output Total 100 ml 250 ml Balance 300 ml 610 ml 0 ml Exam GENERAL: This is a frail-looking male lying in bed in no apparent distress. HEENT: Head normocephalic and atraumatic. Eyes: Anicteric sclerae. Conjunctivae clear. ENT: Nasal septum is midline. Oral mucosa is dry. NECK: Supple. No JVD noticed. RESPIRATORY: Bilaterally clear to auscultation. No adventitious breath sounds heard. No use of accessory muscles of respiration. CARDIAC: Regular rate and rhythm. No murmurs heard. ABDOMEN: Soft, nontender and nondistended. Bowel sounds positive in all 4 quadrants. GENITOURINARY: The patient has a Cox catheter in place. EXTREMITIES: No cyanosis, no clubbing. Bilateral lower extremity 1+ pitting edema. Peripheral pulses on the lower extremities are diminished. NEUROLOGIC: The patient is awake, alert and oriented. Cranial nerves are grossly intact. Results Result Diagram: 09/10/16 0425 09/10/16 0425 Results 24 hrs Laboratory Tests Test 09/09/16 12:23 09/09/16 17:22 09/09/16 21:34 09/10/16 04:25 Bedside Glucose 78 152 156 White Blood Count 3.0 L Red Blood Count 3.06 L Hemoglobin 9.4 L Hematocrit 28.3 L Mean Corpuscular Volume 92.5 Mean Corpuscular Hemoglobin 30.7 Mean Corpuscular Hemoglobin Concent 33.2 Red Cell Distribution Width 16.2 H Platelet Count 72 #L Mean Platelet Volume 11.3 H Neutrophils % 46.3 Lymphocytes % 39.2 Monocytes % 8.4 Eosinophils % 5.1 Basophils % 0.7 Nucleated Red Blood Cells % 0.0 Neutrophils # 1.4 L Lymphocytes # 1.2 Monocytes # 0.3 Eosinophils # 0.2 Basophils # 0.0 Nucleated Red Blood Cells # 0.0 Sodium Level 138 Potassium Level 4.7 Chloride Level 106 Carbon Dioxide Level 27 Anion Gap 10 Blood Urea Nitrogen 19 Creatinine 2.27 H Glucose Level 95 Calcium Level 7.5 L Phosphorus Level 4.2 Magnesium Level 2.4 Test 09/10/16 07:41 09/10/16 09:40 Bedside Glucose 94 Lab Scanned Report REFERENCE LAB Medications Medications Current Medications Carvedilol (Coreg) 6.25 mg BID PO Last administered on 09/09/16t 21:37; Admin Dose 6.25 MG; Start 09/01/16 at 23:00 Finasteride (Proscar) 5 mg DAILY PO Last administered on 09/10/16 08:51; Admin Dose 5 MG; Start 09/02/16 at 09:00 Oxycodone/ Acetaminophen (Percocet (5/ 325)) maximum total acetaminop... Q4 PRN PO PAIN LEVEL 1-5 Last administered on 09/03/16 22:08; Admin Dose 1 TAB; Start 09/01/16 at 23:00 Simethicone (Mylicon) 80 mg Q6H PRN PO DISTENSION/GAS/BLOATING; Start 09/01/16 at 23:00 Tamsulosin HCl (Flomax) 0.4 mg QHS PO Last administered on 09/09/16 21:41; Admin Dose 0.4 MG; Start 09/02/16 at 21:00 Heparin Sodium (Porcine) (Heparin (5000 Units/0.5 ml)) 5,000 unit Q12 SC Last administered on 09/10/16 08:55; Admin Dose 5,000 UNIT; Start 09/02/16 at 09:00 Morphine Sulfate (morphine) 3 mg Q4H PRN IV PAIN LEVEL 6-10 Last administered on 09/10/16 04:57; Admin Dose 3 MG; Start 09/01/16 at 23:30 Ondansetron HCl (Zofran Inj) 4 mg Q6H PRN IV NAUSEA AND/OR VOMITING Last administered on 09/09/16 20:05; Admin Dose 4 MG; Start 09/01/16 at 23:30 Diagnostic Test (Pha) (Accu-Chek) 1 ea 02 XX ; Start 09/02/16 at 02:00 Isosorbide Dinitrate (Isordil) 20 mg TID PO Last administered on 09/10/16 08: 52; Admin Dose 20 MG; Start 09/01/16 at 23:00 Miscellaneous Information 1 ea NOTE XX ; Start 09/01/16 at 23:30 Glucose (Glutose) 15 gm Q15M PRN PO DECREASED GLUCOSE; Start 09/01/16 at 23:30 Glucose (Glutose) 22.5 gm Q15M PRN PO DECREASED GLUCOSE; Start 09/01/16 at 23: 30 Dextrose (D50w Syringe) 25 ml Q15M PRN IV DECREASED GLUCOSE; Start 09/01/16 at 23:30 Dextrose (D50w Syringe) 50 ml Q15M PRN IV DECREASED GLUCOSE; Start 09/01/16 at 23:30 Glucagon (Glucagen) 1 mg Q15M PRN IM DECREASED GLUCOSE; Start 09/01/16 at 23:30 Glucose (Glutose) 15 gm Q15M PRN BUCCAL DECREASED GLUCOSE; Start 09/01/16 at 23 :30 Lactulose (Enulose) 30 gm BID PO Last administered on 09/10/16 08:53; Admin Dose 30 GM; Start 09/02/16 at 21:00 Famotidine (Pepcid) 20 mg DAILY PO Last administered on 09/10/16 08:51; Admin Dose 20 MG; Start 09/04/16 at 09:00 Neomycin/ Polymyxin/ Bacitracin (Neosporin Topical Oint) 1 applic BID TOP Last administered on 09/10/16 08:56; Admin Dose 1 APPLIC; Start 09/04/16 at 21:00; Stop 09/11/16 at 20:59 Levothyroxine Sodium (Synthroid) 75 mcg DAILY@06 PO Last administered on 04:58; Admin Dose 75 MCG; Start 09/08/16 at 06:00 Cholecalciferol (Vitamin D) 1,000 unit DAILY PO Last administered on 09/10/16 08:53; Admin Dose 1,000 UNIT; Start 09/07/16 at 12:30 Lactobacillus Acidophilus (Florajen3 Capsule) 1 each BID PO Last administered on 09/10/16 08:51; Admin Dose 1 EACH; Start 09/09/16 at 21:00 YONIS PATEL NP Sep 10, 2016 11:07
[2016-09-10] MEDS: FUROSEMIDE 20 MG INJ IV SCH ×2 (11:21→18:18)
[2016-09-10 13:03] VITALS: BP 128/76; PULSE 58
--- NOTE | 2016-09-10 16:36 | CONS ---
Date/Time of Note Date/Time of Note DATE: 09/10/16 TIME: 16:35 Assessment/Plan Assessment/Plan Chief Complaint/Hosp Course SUBJECTIVE: No acute events. No fevers. INDWELLINGS: Cox and Johnathan catheter PHYSICAL EXAMINATION: GENERAL: Chronically ill-appearing, middle-aged man who is in no distress. HEENT: Head atraumatic, normocephalic. Sclerae anicteric. Buccal mucosa dry. NECK: Supple, trachea midline. CHEST: Rise symmetrical. Breath sounds diminished to bases. HEART: S1, S2. ABDOMEN: Obese, distended, soft. Bowel tones hypoactive. EXTREMITIES: Without cyanosis. SKIN: Positive for anasarca. ASSESSMENT: 1. Acute on chronic respiratory failure with significant anasarca, status post Johnathan placement, started on hemodialysis. 2. Recurrent urinary tract infection. 3. Status post methicillin-resistant Staphylococcus aureus spinal abscess removal with decompressive laminectomy on 09/09/2016. 4. Diabetes. 5. Hypertension. 6. History of left otomastoiditis. PLAN: The patient remains stable. Off abx, will gage cx prn. DW staff Problems: Consultation Date/Type/Reason Admit Date/Time Sep 01, 2016 at 17:29 Type of Consultation: ID Exam/Review of Systems Vital Signs Vitals Vital Signs Date Time Temp Pulse Resp B/P Pulse Ox O2 Delivery O2 Flow Rate FiO2 09/10/16 13:03 58 128/76 09/10/16 08:15 Nasal Cannula 2.0 09/10/16 08:00 97.7 16 95 Intake and Output 09/09/16 09/09/16 09/10/16 15:00 23:00 07:00 Intake Total 300 ml 710 ml 250 ml Output Total 100 ml 250 ml Balance 300 ml 610 ml 0 ml Results Result Diagram: 09/10/16 0425 09/10/16 0425 Results 24 hrs Laboratory Tests Test 09/09/16 17:22 09/09/16 21:34 09/10/16 04:25 09/10/16 07:41 Bedside Glucose 152 156 94 White Blood Count 3.0 L Red Blood Count 3.06 L Hemoglobin 9.4 L Hematocrit 28.3 L Mean Corpuscular Volume 92.5 Mean Corpuscular Hemoglobin 30.7 Mean Corpuscular Hemoglobin Concent 33.2 Red Cell Distribution Width 16.2 H Platelet Count 72 #L Mean Platelet Volume 11.3 H Neutrophils % 46.3 Lymphocytes % 39.2 Monocytes % 8.4 Eosinophils % 5.1 Basophils % 0.7 Nucleated Red Blood Cells % 0.0 Neutrophils # 1.4 L Lymphocytes # 1.2 Monocytes # 0.3 Eosinophils # 0.2 Basophils # 0.0 Nucleated Red Blood Cells # 0.0 Sodium Level 138 Potassium Level 4.7 Chloride Level 106 Carbon Dioxide Level 27 Anion Gap 10 Blood Urea Nitrogen 19 Creatinine 2.27 H Glucose Level 95 Calcium Level 7.5 L Phosphorus Level 4.2 Magnesium Level 2.4 Test 09/10/16 09:40 09/10/16 11:37 Lab Scanned Report REFERENCE LAB Bedside Glucose 109 Medications Medications Current Medications Carvedilol (Coreg) 6.25 mg BID PO Last administered on 09/09/16 21:37; Admin Dose 6.25 MG; Start 09/01/16 at 23:00 Finasteride (Proscar) 5 mg DAILY PO Last administered on 09/10/16 08:51; Admin Dose 5 MG; Start 09/02/16 at 09:00 Oxycodone/ Acetaminophen (Percocet (5/ 325)) maximum total acetaminop... Q4 PRN PO PAIN LEVEL 1-5 Last administered on 09/03/16 22:08; Admin Dose 1 TAB; Start 09/01/16 at 23:00 Simethicone (Mylicon) 80 mg Q6H PRN PO DISTENSION/GAS/BLOATING; Start 09/01/16 at 23:00 Tamsulosin HCl (Flomax) 0.4 mg QHS PO Last administered on 09/09/16 21:41; Admin Dose 0.4 MG; Start 09/02/16 at 21:00 Heparin Sodium (Porcine) (Heparin (5000 Units/0.5 ml)) 5,000 unit Q12 SC Last administered on 09/10/16 08:55; Admin Dose 5,000 UNIT; Start 09/02/16 at 09:00 Morphine Sulfate (morphine) 3 mg Q4H PRN IV PAIN LEVEL 6-10 Last administered on 09/10/16 11:22; Admin Dose 3 MG; Start 09/01/16 at 23:30 Ondansetron HCl (Zofran Inj) 4 mg Q6H PRN IV NAUSEA AND/OR VOMITING Last administered on 09/09/16 20:05; Admin Dose 4 MG; Start 09/01/16 at 23:30 Diagnostic Test (Pha) (Accu-Chek) 1 ea 02 XX ; Start 09/02/16 at 02:00 Isosorbide Dinitrate (Isordil) 20 mg TID PO Last administered on 09/10/16 08: 52; Admin Dose 20 MG; Start 09/01/16 at 23:00 Miscellaneous Information 1 ea NOTE XX ; Start 09/01/16 at 23:30 Glucose (Glutose) 15 gm Q15M PRN PO DECREASED GLUCOSE; Start 09/01/16 at 23:30 Glucose (Glutose) 22.5 gm Q15M PRN PO DECREASED GLUCOSE; Start 09/01/16 at 23: 30 Dextrose (D50w Syringe) 25 ml Q15M PRN IV DECREASED GLUCOSE; Start 09/01/16 at 23:30 Dextrose (D50w Syringe) 50 ml Q15M PRN IV DECREASED GLUCOSE; Start 09/01/16 at 23:30 Glucagon (Glucagen) 1 mg Q15M PRN IM DECREASED GLUCOSE; Start 09/01/16 at 23:30 Glucose (Glutose) 15 gm Q15M PRN BUCCAL DECREASED GLUCOSE; Start 09/01/16 at 23 :30 Lactulose (Enulose) 30 gm BID PO Last administered on 09/10/16 08:53; Admin Dose 30 GM; Start 09/02/16 at 21:00 Famotidine (Pepcid) 20 mg DAILY PO Last administered on 09/10/16 08:51; Admin Dose 20 MG; Start 09/04/16 at 09:00 Neomycin/ Polymyxin/ Bacitracin (Neosporin Topical Oint) 1 applic BID TOP Last administered on 09/10/16 08:56; Admin Dose 1 APPLIC; Start 09/04/16 at 21:00; Stop 09/11/16 at 20:59 Levothyroxine Sodium (Synthroid) 75 mcg DAILY@06 PO Last administered on 04:58; Admin Dose 75 MCG; Start 09/08/16 at 06:00 Cholecalciferol (Vitamin D) 1,000 unit DAILY PO Last administered on 09/10/16 08:53; Admin Dose 1,000 UNIT; Start 09/07/16 at 12:30 Lactobacillus Acidophilus (Florajen3 Capsule) 1 each BID PO Last administered on 09/10/16t 08:51; Admin Dose 1 EACH; Start 09/09/16 at 21:00 Lorazepam (Ativan) 1 mg Q6H PRN IV Anxiety; Start 09/10/16 at 11:30 DORENE GARCIA NP Sep 10, 2016 16:36
[2016-09-10] MEDS ORDERED: FUROSEMIDE 20 MG INJ IV SCH (18:00)
--- NOTE | 2016-09-10 18:08 | CONS ---
DATE OF ADMISSION: 09/01/2016 DATE OF CONSULTATION: 09/04/2016 TYPE OF CONSULTATION: Neurosurgery REQUESTING PHYSICIAN: Ervin Burnett MD, the hospitalist HISTORY OF PRESENT ILLNESS: This is a 56-year-old male with past medical history significant for hy pertension, diabetes mellitus, chronic kidney disease secondary to diabetes, currently on dialysis, possible liver disease and liver cirrhosis, and anemia of chronic disease, who had a urinary tract i nfection and was found to have L2 to L3 diskitis and a subacute epidural abscess. The patient under went L2 to L3 laminectomy for decompression and evacuation of the subacute epidural abscess by me guthrie ss than 2 months ago at [facility]. The patient was subsequently discharged to a custodial facility. Although there were strict orders written for the patient to follow up wi me in clinic for postoperative care, he was never brought to my clinic. The patient was then sub sequently admitted to [facility] with chest pain and apparently the patient was not found to h ave gross evidence of myocardial infarction and was subsequently transferred to [facility] for further care. The patient has been treated with IV antibiotics for his diskitis and re ported history of epidural subacute abscess and I am contacted by Dr. Burnett to evaluate his donovan mbar incision and see whether the kelly can be removed. I had put in specific orders prior to the patient's discharge from the hospital subsequent to his L2 to L3 lumbar laminectomy less than 2 mon ths ago, that the patient's lumbar kelly would need to be removed on postoperative day 12 to 14. Unfortunately, these have not been removed PAST MEDICAL HISTORY: As noted above. PAST SURGICAL HISTORY: Eye surgery. 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 ALLERGIES: NO KNOWN DRUG ALLERGIES. REVIEW OF SYSTEMS: The patient does not have any new weakness or numbness of his upper or lower ext remities. He denies any chest pain or shortness of breath currently. MEDICATIONS: The patient's medications have been reviewed in the chart. SOCIAL HISTORY: The patient quit drinking a number of years ago. He does not smoke tobacco. He do es not drink alcoholic beverages. PHYSICAL EXAMINATION: The patient is seen at bedside. The patient is awake and alert. He is orien nelson x4. His language is fluent in Serbian. Muscle bulk and tone is normal bilateral upper and lowe r extremities. Motor strength is at least 4/5 bilateral upper and lower extremities. Sensation to light touch is grossly normal bilateral upper and lower extremities. Deep tendon reflexes are 1+ bi lateral upper and lower extremities. Gait testing has been deferred per patient. Lumbar incision a ppears to be clean, dry and intact. It actually seems to be completely healed. The kelly are sti ll unfortunately in place. LABORATORY DATA: The patient's white blood count since admission has been 4.5 and 3.2. The patient has not had any reported fevers. ASSESSMENT AND PLAN: This is a middle-aged male with multiple medical problems and renal failure on hemodialysis, who had undergone a L2 to L3 laminectomy for decompression and evacuation of a subacu te abscess. The patient, as noted above, was never sent to my office despite my request for a posto perative visit. I have personally removed his lumbar kelly. His lumbar incision looks clean, dry , intact and healed. I have put in an order for the nurses to apply triple antibiotic ointment on h is incision twice a day. There is no acute neurosurgical intervention indicated. The patient will benefit from long-term physical therapy to help get the patient back on his feet. Unfortunately, th e patient also has many other medical problems, as noted above, and even while those medical problem s of being attended to, the patient can still receive physical therapy while in the hospital from a neurosurgery perspective. Dictated By: JONAS MCKEON MD, SA/ERICKA Conf#: [id number] DID#: [id number]
[2016-09-10 20:16] VITALS: BP 136/78; RESP 18
[2016-09-10] MEDS: TAMSULOSIN (SR) 0.4 MG CAP PO SCH (21:50)
[2016-09-11] MEDS: ACCU-CHEK XX SCH (02:00)
[2016-09-11] MEDS: OXYCODONE/ACETAMINOPHEN (5/325) TAB PO PRN (03:53)
[2016-09-11] MEDS: morphine 4 MG/ML VIAL IV PRN ×4 (04:20→23:17)
[2016-09-11] MEDS: LEVOTHYROXINE 75 MCG TAB PO SCH (04:21)
[2016-09-11] MEDS: FUROSEMIDE 20 MG INJ IV SCH ×2 (04:21→17:19)
[2016-09-11 05:21] LABS: ADD SCAN DIFF NO
[2016-09-11 05:36] LABS: ABNORMAL IP MESSAGE 1; BASOPHILS % 0.7 % (0.0-2.0); EOSINOPHILS # 0.2 10^3/ul (0.0-0.5); EOSINOPHILS % 4.9 % (0.0-7.0); HEMATOCRIT 29.1 % (42.0-52.0); HEMOGLOBIN 9.6 g/dl (14.0-18.0); LYMPHOCYTES # 1.1 10^3/ul (0.8-2.9); LYMPHOCYTES % 35.4 % (15.0-51.0); MEAN CORPUSCULAR HEMOGLOBIN 30.8 pg (29.0-33.0); MEAN CORPUSCULAR VOLUME 93.3 fl (82.0-101.0); MEAN PLATELET VOLUME 10.9 fl (7.4-10.4); MONOCYTE # 0.3 10^3/ul (0.3-0.9); MONOCYTES % 10.5 % (0.0-11.0); NEUTROPHIL # 1.5 10^3/ul (1.6-7.5); NEUTROPHILS % 48.2 % (39.0-77.0); PLATELET COUNT 82 10^3/UL (140-415); RED BLOOD COUNT 3.12 10^6/ul (4.70-6.10); RED CELL DISTRIBUTION WIDTH 16.3 % (11.5-14.5); WHITE BLOOD COUNT 3.1 10^3/ul (4.8-10.8)
[2016-09-11 05:50] LABS: CALCIUM 7.9 mg/dl (8.4-10.2); CREATININE 2.56 mg/dl (0.61-1.24); MAGNESIUM 2.4 mg/dl (1.7-2.5); PHOSPHORUS 4.9 mg/dl (2.5-4.9); POTASSIUM 5.1 mmol/L (3.5-5.1)
[2016-09-11 07:30] VITALS: BP 158/76; RESP 18
[2016-09-11] MEDS: INSULIN ASPART [NOVOLOG] 3 ML PEN SC SCH ×4 (07:36→21:00)
[2016-09-11] MEDS: ISOSORBIDE DINITRATE 20 MG TAB PO SCH ×3 (08:13→21:02)
[2016-09-11] MEDS: SEVELAMER 800 MG TAB PO SCH ×3 (08:15→17:18)
[2016-09-11] MEDS: LACTULOSE 30ML CUP PO SCH ×2 (08:15→21:00)
[2016-09-11] MEDS: FAMOTIDINE 20 MG TAB PO SCH (08:15)
[2016-09-11] MEDS: FINASTERIDE 5 MG TAB PO SCH (08:15)
[2016-09-11] MEDS: CHOLECALCIFEROL 1,000 UNIT TAB PO SCH (08:15)
[2016-09-11] MEDS: HEPARIN 5,000 UNIT/0.5 ML VIAL SC SCH ×3 (08:21→20:10)
[2016-09-11] MEDS: LORAZEPAM 2 MG INJ IV PRN (10:23)
[2016-09-11] MEDS: ONDANSETRON 4 MG INJ IV PRN (10:23)
--- NOTE | 2016-09-11 10:45 | PN ---
DATE: 09/11/2016 SUBJECTIVE: The patient clinically improving. No longer complaining of uremic signs. No other acu te events noted. No hemoptysis, hematemesis or hematochezia. I did discuss with the patient that the possibility of not needing immediate hemodialysis if his shirley al function remains stable on diuretic therapy. No other events noted. OBJECTIVE: VITAL SIGNS: Blood pressure 150/76, respiration 18, pulse 60, temperature 98.2. HEENT: Head is normocephalic. NECK: Supple. HEART: Regular rate. LUNGS: Show diminished breath sounds at base. ABDOMEN: Soft, nontender to palpation. EXTREMITIES: Positive for edema. DERMATOLOGIC: No rashes. MUSCULOSKELETAL: No joint effusions. NEUROLOGIC: No change in exam. MEDICATIONS: The patient's medications have been reviewed. LABORATORY DATA: Showed sodium 136, potassium 5.1, chloride 105, BUN 26, creatinine 2.56. White co unt 3.1, hemoglobin 9.6, hematocrit 29.1, platelet count is 82. ASSESSMENT AND PLAN: 1. Nonoliguric acute kidney injury on top of chronic kidney disease stage IV with previous baseline creatinine around 3 mg/dL. Etiology of current acute kidney injury is secondary to acute tubular n ecrosis. The patient was felt to initially progress towards end-stage renal disease due to uremic s ymptoms and severe volume overload, CHF. Patient is status post 4 sessions of hemodialysis. The real jensen appears to have had some clinical improvement. His urinary output has improved with diuretic therapy and his creatinine appears to be stabilizing around 3 mg/dL previous baseline. At this poin t, will hold hemodialysis. Will continue aggressive diuretic therapy, monitor renal function closel y. I did speak with the patient, informing him that if his renal function remains stable and his vo lume can be managed with diuretic therapy that we can discontinue Perm-A-Cath and hold off hemodialy sis at this time. 2. Congestive heart failure with volume overload secondary to acute kidney injury. The patient cur rently on diuretic therapy. We will continue to monitor I's and O's closely. 3. Metabolic acidosis secondary to acute kidney injury, improved. 4. Hypertension. Continue current blood pressure regimen. 5. Anemia of chronic disease. Continue to monitor hemoglobin and hematocrit levels. Continue Epog en. 6. Osteomyelitis, status post laminectomy. The patient is status post antibiotic therapy. Follow up with neurosurgery. 7. Diabetes. Continue Accu-Cheks, insulin sliding scale. 8. Benign prostatic hypertrophy. Continue current medical management. 9. History of diabetic retinopathy. Dictated By: NAE SINHA/ERICKA Conf#: [id number] DID#: [id number]
[2016-09-11] MEDS: NEOMYC/POLYMYX/BACIT 30 GM OINT TOP SCH (11:38)
[2016-09-11] MEDS: L ACIDOPHIL/B LACTIS/B LONGUM CAPSULE PO SCH ×2 (11:38→21:10)
--- NOTE | 2016-09-11 11:41 | PN ---
Date/Time of Note Date/Time of Note DATE: 09/11/16 TIME: 11:41 Assessment/Plan VTE Prophylaxis VTE Prophylaxis Intervention: heparin Lines/Catheters IV [facility]from [facility] permacath Urinary Cath still in place: No Assessment/Plan Chief Complaint/Hosp Course 1. Nonoliguric acute kidney injury on top of chronic kidney disease stage IV. The patient on hemodialysis. Status post perm-A-Cath placement. 2. Urinary tract infection. Continue antibiotics as per infectious diseases. No evidence of any septic shock. 3. Chest pain. Acute coronary syndrome has been ruled out. The patient recently had a stress test on 08/09/2006 that was negative for any reversible perfusion defects. 4. Recent spinal abscess with MRSA. Status post surgery on 07/12/2016. 5. Benign prostatic hypertrophy. Continue medications. 6. Normocytic normochromic anemia. Continue iron supplements. 7. Recent left mastoid opacification without associated effusions compatible with osteomyelitis. Status post antibiotic therapy. 8. Normocytic normochromic anemia, most probably anemia of end-stage renal disease. Continue to monitor H and H closely. Transfuse as needed. 9. Hypothyroidism. Continue Synthroid. 10. Essential hypertension. Continue antihypertensives. 11. Diabetes mellitus. Hemoglobin A1c 6.0. Continue sliding scale insulin. Blood sugars fairly well controlled. 12. Conjunctivitis. Continue symptomatic care. Cultures pending. 13. Fluid, electrolytes and nutrition. Low cholesterol diet. 14. Deep venous thrombosis prophylaxis with subcutaneous heparin. 15. Gastrointestinal prophylaxis. Histamine 2 receptor blockers. PLAN: Continue antibiotics as per infectious diseases. Await clearance from nephrology before discharge. As per nephrology, the patient's renal function is improving gradually. The patient may not need further dialysis. Case discussed with . Problems: Subjective 24 Hr Interval Summary Free Text/Dictation No changes in status. Exam/Review of Systems Vital Signs Vitals Vital Signs Date Time Temp Pulse Resp B/P Pulse Ox O2 Delivery O2 Flow Rate FiO2 09/11/16 07:30 98.2 60 18 158/76 96 09/10/16 08:15 Nasal Cannula 2.0 Intake and Output 09/10/16 09/10/16 09/11/16 15:00 23:00 07:00 Intake Total 1080 ml 250 ml Output Total 450 ml 100 ml Balance 630 ml 150 ml Exam GENERAL: This is a frail-looking male lying in bed in no apparent distress. HEENT: Head normocephalic and atraumatic. Eyes: Anicteric sclerae. Conjunctivae red with right periorbital edema. ENT: Nasal septum is midline. Oral mucosa is dry. NECK: Supple. No JVD noticed. RESPIRATORY: Bilaterally clear to auscultation. No adventitious breath sounds heard. No use of accessory muscles of respiration. CARDIAC: Regular rate and rhythm. No murmurs heard. ABDOMEN: Soft, nontender and nondistended. Bowel sounds positive in all 4 quadrants. GENITOURINARY: The patient has a Cox catheter in place. EXTREMITIES: No cyanosis, no clubbing. Bilateral lower extremity 1+ pitting edema. Peripheral pulses on the lower extremities are diminished. NEUROLOGIC: The patient is awake, alert and oriented. Cranial nerves are grossly intact. Results Result Diagram: 09/11/16 0428 09/11/16 0428 Results 24 hrs Laboratory Tests Test 09/10/16 17:24 09/10/16 21:49 09/11/16 04:28 09/11/16 07:34 Bedside Glucose 128 153 102 White Blood Count 3.1 L Red Blood Count 3.12 L Hemoglobin 9.6 L Hematocrit 29.1 L Mean Corpuscular Volume 93.3 Mean Corpuscular Hemoglobin 30.8 Mean Corpuscular Hemoglobin Concent 33.0 Red Cell Distribution Width 16.3 H Platelet Count 82 L Mean Platelet Volume 10.9 H Neutrophils % 48.2 Lymphocytes % 35.4 Monocytes % 10.5 Eosinophils % 4.9 Basophils % 0.7 Nucleated Red Blood Cells % 0.0 Neutrophils # 1.5 L Lymphocytes # 1.1 Monocytes # 0.3 Eosinophils # 0.2 Basophils # 0.0 Nucleated Red Blood Cells # 0.0 Sodium Level 136 Potassium Level 5.1 Chloride Level 105 Carbon Dioxide Level 27 Anion Gap 9 Blood Urea Nitrogen 26 H Creatinine 2.56 H Glucose Level 97 Calcium Level 7.9 L Phosphorus Level 4.9 Magnesium Level 2.4 Medications Medications Current Medications Carvedilol (Coreg) 6.25 mg BID PO Last administered on 09/10/16 21:51; Admin Dose 6.25 MG; Start 09/01/16 at 23:00 Finasteride (Proscar) 5 mg DAILY PO Last administered on 09/11/16 08:15; Admin Dose 5 MG; Start 09/02/16 at 09:00 Oxycodone/ Acetaminophen (Percocet (5/ 325)) maximum total acetaminop... Q4 PRN PO PAIN LEVEL 1-5 Last administered on 09/03/16 22:08; Admin Dose 1 TAB; Start 09/01/16 at 23:00 Simethicone (Mylicon) 80 mg Q6H PRN PO DISTENSION/GAS/BLOATING; Start 09/01/16 at 23:00 Tamsulosin HCl (Flomax) 0.4 mg QHS PO Last administered on 09/10/16 21:50; Admin Dose 0.4 MG; Start 09/02/16 at 21:00 Heparin Sodium (Porcine) (Heparin (5000 Units/0.5 ml)) 5,000 unit Q12 SC Last administered on 09/10/16 21:53; Admin Dose 5,000 UNIT; Start 09/02/16 at 09:00 Morphine Sulfate (morphine) 3 mg Q4H PRN IV PAIN LEVEL 6-10 Last administered on 09/11/16 04:20; Admin Dose 3 MG; Start 09/01/16 at 23:30 Ondansetron HCl (Zofran Inj) 4 mg Q6H PRN IV NAUSEA AND/OR VOMITING Last administered on 09/11/16 10:23; Admin Dose 4 MG; Start 09/01/16 at 23:30 Diagnostic Test (Pha) (Accu-Chek) 1 ea 02 XX ; Start 09/02/16 at 02:00 Isosorbide Dinitrate (Isordil) 20 mg TID PO Last administered on 09/10/16 21: 50; Admin Dose 20 MG; Start 09/01/16 at 23:00 Miscellaneous Information 1 ea NOTE XX ; Start 09/01/16 at 23:30 Glucose (Glutose) 15 gm Q15M PRN PO DECREASED GLUCOSE; Start 09/01/16 at 23:30 Glucose (Glutose) 22.5 gm Q15M PRN PO DECREASED GLUCOSE; Start 09/01/16 at 23: 30 Dextrose (D50w Syringe) 25 ml Q15M PRN IV DECREASED GLUCOSE; Start 09/01/16 at 23:30 Dextrose (D50w Syringe) 50 ml Q15M PRN IV DECREASED GLUCOSE; Start 09/01/16 at 23:30 Glucagon (Glucagen) 1 mg Q15M PRN IM DECREASED GLUCOSE; Start 09/01/16 at 23:30 Glucose (Glutose) 15 gm Q15M PRN BUCCAL DECREASED GLUCOSE; Start 09/01/16 at 23 :30 Lactulose (Enulose) 30 gm BID PO Last administered on 09/11/16 08:15; Admin Dose 30 GM; Start 09/02/16 at 21:00 Famotidine (Pepcid) 20 mg DAILY PO Last administered on 09/11/16 08:15; Admin Dose 20 MG; Start 09/04/16 at 09:00 Neomycin/ Polymyxin/ Bacitracin (Neosporin Topical Oint) 1 applic BID TOP Last administered on 09/11/16 11:38; Admin Dose 1 APPLIC; Start 09/04/16 at 21:00; Stop 09/11/16 at 20:59 Levothyroxine Sodium (Synthroid) 75 mcg DAILY@06 PO Last administered on 04:21; Admin Dose 75 MCG; Start 09/08/16 at 06:00 Cholecalciferol (Vitamin D) 1,000 unit DAILY PO Last administered on 09/11/16 08:15; Admin Dose 1,000 UNIT; Start 09/07/16 at 12:30 Lactobacillus Acidophilus (Florajen3 Capsule) 1 each BID PO Last administered on 09/11/16 11:38; Admin Dose 1 EACH; Start 09/09/16 at 21:00 Lorazepam (Ativan) 1 mg Q6H PRN IV Anxiety Last administered on 09/11/16 10:23 ; Admin Dose 1 MG; Start 09/10/16 at 11:30 Metolazone (Zaroxolyn) 5 mg DAILY PO ; Start 09/11/16 at 10:00 YONIS PATEL NP Sep 11, 2016 11:41
[2016-09-11] MEDS: METOLAZONE 5 MG TAB PO SCH (17:18)
[2016-09-11 19:48] VITALS: BP 164/85; RESP 19
[2016-09-11] MEDS: TAMSULOSIN (SR) 0.4 MG CAP PO SCH (21:01)
[2016-09-12] MEDS: ACCU-CHEK XX SCH (02:00)
[2016-09-12] MEDS: morphine 4 MG/ML VIAL IV PRN ×4 (05:17→21:58)
[2016-09-12] MEDS: LEVOTHYROXINE 75 MCG TAB PO SCH (05:20)
[2016-09-12] MEDS: FUROSEMIDE 20 MG INJ IV SCH ×2 (05:22→18:29)
[2016-09-12 06:47] LABS: ADD SCAN DIFF NO
[2016-09-12 06:58] LABS: ABNORMAL IP MESSAGE 1; BASOPHILS % 0.9 % (0.0-2.0); EOSINOPHILS # 0.2 10^3/ul (0.0-0.5); EOSINOPHILS % 7.4 % (0.0-7.0); HEMATOCRIT 30.4 % (42.0-52.0); HEMOGLOBIN 10.1 g/dl (14.0-18.0); LYMPHOCYTES % 32.2 % (15.0-51.0); MEAN CORPUSCULAR HEMOGLOBIN 30.6 pg (29.0-33.0); MEAN CORPUSCULAR HGB CONC 33.2 g/dl (32.0-37.0); MEAN CORPUSCULAR VOLUME 92.1 fl (82.0-101.0); MEAN PLATELET VOLUME 10.3 fl (7.4-10.4); MONOCYTE # 0.3 10^3/ul (0.3-0.9); MONOCYTES % 8.4 % (0.0-11.0); NEUTROPHIL # 1.7 10^3/ul (1.6-7.5); NEUTROPHILS % 51.1 % (39.0-77.0); PLATELET COUNT 94 10^3/UL (140-415); RED CELL DISTRIBUTION WIDTH 16.3 % (11.5-14.5); WHITE BLOOD COUNT 3.2 10^3/ul (4.8-10.8)
[2016-09-12 07:44] LABS: MAGNESIUM 2.5 mg/dl (1.7-2.5); PHOSPHORUS 5.3 mg/dl (2.5-4.9); POTASSIUM 4.9 mmol/L (3.5-5.1)
[2016-09-12 07:46] LABS: CREATININE 2.82 mg/dl (0.61-1.24)
[2016-09-12 07:47] LABS: CALCIUM 8.1 mg/dl (8.4-10.2)
[2016-09-12] MEDS: INSULIN ASPART [NOVOLOG] 3 ML PEN SC SCH ×4 (08:00→21:00)
[2016-09-12 08:39] VITALS: BP 169/96; RESP 17
[2016-09-12] MEDS: LACTULOSE 30ML CUP PO SCH ×2 (08:51→21:53)
[2016-09-12] MEDS: SEVELAMER 800 MG TAB PO SCH ×3 (08:51→17:51)
[2016-09-12] MEDS: ISOSORBIDE DINITRATE 20 MG TAB PO SCH ×3 (08:52→21:57)
[2016-09-12] MEDS: FINASTERIDE 5 MG TAB PO SCH (08:52)
[2016-09-12] MEDS: METOLAZONE 5 MG TAB PO SCH ×2 (08:52→18:28)
[2016-09-12] MEDS: CHOLECALCIFEROL 1,000 UNIT TAB PO SCH (08:52)
[2016-09-12] MEDS: FAMOTIDINE 20 MG TAB PO SCH (08:52)
[2016-09-12] MEDS: L ACIDOPHIL/B LACTIS/B LONGUM CAPSULE PO SCH ×2 (08:55→22:04)
--- NOTE | 2016-09-12 11:02 | PN ---
DATE: 09/12/2016 SUBJECTIVE: The patient is stable, no acute events overnight. No fevers, chills, nausea, vomiting. OBJECTIVE: VITAL SIGNS: Blood pressure 169/96, respirations 17, pulse 56, temperature 97.6. HEENT: Head is normocephalic. NECK: Supple. HEART: Regular rate. LUNGS: Show diminished breath sounds at the bases. ABDOMEN: Soft, nontender to palpation. No rebound or guarding. EXTREMITIES: Negative for clubbing, cyanosis. Positive edema +3. DERMATOLOGIC: No rashes. MUSCULOSKELETAL: No joint effusions. NEUROLOGIC: No change in exam. MEDICATIONS: The patient's medications have been reviewed. LABORATORY DATA: Shows a sodium 139, potassium 4.9, chloride 102, bicarbonate 25, BUN 33, creatinin e 2.82. White count 3.2, hemoglobin 10.1, hematocrit 30.4, platelet count is 94. ASSESSMENT AND PLAN: 1. Nonoliguric acute kidney injury on top of chronic kidney disease stage IV with previous baseline creatinine around 3 mg/dL. Etiology of acute kidney injury is secondary to acute tubular necrosis. The patient was initially felt to progress towards end-stage renal disease and was initiated on he modialysis due to uremic symptoms and severe volume overload, congestive heart failure. The patient is status post 4 sessions of dialysis. The patient has shown some clinical improvement, renal impr ovement. The patient's urinary output has improved with diuretic therapy as he has diuresed over 2 liters in the last 24 hours. At this point, we will continue to hold hemodialysis and monitor renal function closely on aggressive diuretic therapy. We will continue supportive care, renally dose al l meds. 2. Congestive heart failure, volume overload secondary to acute kidney injury. Continue current di uretic regimen. 3. Metabolic acidosis, improved. 4. Hypertension. Blood pressure elevated. Continue Coreg. Continue diuretic regimen. 5. Anemia of chronic disease. Continue to monitor hemoglobin and hematocrit levels. Continue Epog en. 6. Osteomyelitis, status post laminectomy. Continue current medical management. Follow up with ne urosurgeon 7. Diabetes. Continue Accu-Cheks and insulin sliding scale. 8. Benign prostatic hypertrophy. Continue medical management. 9. History of diabetic retinopathy. Dictated By: NAE SINHA/ERICKA Conf#: [id number] [facility]#: [id number]
--- NOTE | 2016-09-12 14:11 | PN ---
Date/Time of Note Date/Time of Note DATE: 09/12/16 TIME: 14:10 Assessment/Plan VTE Prophylaxis VTE Prophylaxis Intervention: heparin Lines/Catheters IV [facility]ter Type (from [facility] PICC Line Central line still needed: Yes Urinary Cath still in place: Yes Reason Cath still needed: other (indicate) Assessment/Plan Chief Complaint/Hosp Course 1. Nonoliguric acute kidney injury on top of chronic kidney disease stage IV. The patient on hemodialysis. Status post perm-A-Cath placement. 2. Urinary tract infection. S/P antibiotics as per infectious diseases. No evidence of any septic shock. 3. Chest pain. Acute coronary syndrome has been ruled out. Off and on the patient recently had a stress test on 08/09/2006 that was negative for any reversible perfusion defects. 4. Recent spinal abscess with MRSA. Status post surgery on 07/12/2016. 5. Benign prostatic hypertrophy. Continue medications. 6. Normocytic normochromic anemia. Continue iron supplements. 7. Recent left mastoid opacification without associated effusions compatible with osteomyelitis. Status post antibiotic therapy. 8. Normocytic normochromic anemia, most probably anemia of end-stage renal disease. Continue to monitor H and H closely. Transfuse as needed. 9. Hypothyroidism. Continue Synthroid. 10. Essential hypertension. Continue antihypertensives. 11. Conjunctivitis. Cultures positive for VRE and Corynebacterium JK. Symptomatic treatment. Antibiotic management as per infectious diseases. 12. Diabetes mellitus. Hemoglobin A1c 6.0. Continue sliding scale insulin. Blood sugars fairly well controlled. 13. Fluid, electrolytes and nutrition. Low cholesterol diet. 14. Deep venous thrombosis prophylaxis with subcutaneous heparin. 15. Gastrointestinal prophylaxis. Histamine 2 receptor blockers. PLAN: Await clearance from nephrology before discharge. As per nephrology, the patient's renal function is improving gradually. The patient may not need further dialysis. Case discussed with Dr. Hernandez. Problems: Subjective 24 Hr Interval Summary Free Text/Dictation Vital signs stable. Right eye pain. Exam/Review of Systems Vital Signs Vitals Vital Signs Date Time Temp Pulse Resp B/P Pulse Ox O2 Delivery O2 Flow Rate FiO2 09/12/16 08:39 97.6 56 17 169/96 97 09/11/16 20:00 Nasal Cannula 2.0 Intake and Output 09/11/16 09/11/16 09/12/16 15:00 23:00 07:00 Intake Total 840 ml 950 ml Output Total 600 ml 1600 ml Balance 240 ml -650 ml Exam GENERAL: This is a frail-looking male lying in bed in no apparent distress. HEENT: Head normocephalic and atraumatic. Eyes: Anicteric sclerae. Conjunctivae red with right periorbital edema. ENT: Nasal septum is midline. Oral mucosa is dry. NECK: Supple. No JVD noticed. RESPIRATORY: Bilaterally clear to auscultation. No adventitious breath sounds heard. No use of accessory muscles of respiration. CARDIAC: Regular rate and rhythm. No murmurs heard. ABDOMEN: Soft, nontender and nondistended. Bowel sounds positive in all 4 quadrants. GENITOURINARY: The patient has a Cox catheter in place. EXTREMITIES: No cyanosis, no clubbing. Bilateral lower extremity 1+ pitting edema. Peripheral pulses on the lower extremities are diminished. NEUROLOGIC: The patient is awake, alert and oriented. Cranial nerves are grossly intact. Results Result Diagram: 09/12/16 0530 09/12/16 0530 Results 24 hrs Laboratory Tests Test 09/11/16 17:24 09/11/16 21:04 09/12/16 05:30 09/12/16 08:40 Bedside Glucose 139 147 103 White Blood Count 3.2 L Red Blood Count 3.30 L Hemoglobin 10.1 L Hematocrit 30.4 L Mean Corpuscular Volume 92.1 Mean Corpuscular Hemoglobin 30.6 Mean Corpuscular Hemoglobin Concent 33.2 Red Cell Distribution Width 16.3 H Platelet Count 94 L Mean Platelet Volume 10.3 Neutrophils % 51.1 Lymphocytes % 32.2 Monocytes % 8.4 Eosinophils % 7.4 H Basophils % 0.9 Nucleated Red Blood Cells % 0.0 Neutrophils # 1.7 Lymphocytes # 1.0 Monocytes # 0.3 Eosinophils # 0.2 Basophils # 0.0 Nucleated Red Blood Cells # 0.0 Sodium Level 139 Potassium Level 4.9 Chloride Level 102 Carbon Dioxide Level 25 Anion Gap 17 #H Blood Urea Nitrogen 33 H Creatinine 2.82 H Glucose Level 103 Calcium Level 8.1 L Phosphorus Level 5.3 H Magnesium Level 2.5 Test 09/12/16 11:31 Bedside Glucose 113 Medications Medications Current Medications Carvedilol (Coreg) 6.25 mg BID PO Last administered on 4/21/17at 08:52; Admin Dose 6.25 MG; Start 09/01/16 at 23:00 Finasteride (Proscar) 5 mg DAILY PO Last administered on 09/12/16 08:52; Admin Dose 5 MG; Start 09/02/16 at 09:00 Oxycodone/ Acetaminophen (Percocet (5/ 325)) maximum total acetaminop... Q4 PRN PO PAIN LEVEL 1-5 Last administered on 09/03/16 22:08; Admin Dose 1 TAB; Start 09/01/16 at 23:00 Simethicone (Mylicon) 80 mg Q6H PRN PO DISTENSION/GAS/BLOATING; Start 09/01/16 at 23:00 Tamsulosin HCl (Flomax) 0.4 mg QHS PO Last administered on 09/11/16 21:01; Admin Dose 0.4 MG; Start 09/02/16 at 21:00 Heparin Sodium (Porcine) (Heparin (5000 Units/0.5 ml)) 5,000 unit Q12 SC Last administered on 09/10/16 21:53; Admin Dose 5,000 UNIT; Start 09/02/16 at 09:00 ; Status Future hold Morphine Sulfate (morphine) 3 mg Q4H PRN IV PAIN LEVEL 6-10 Last administered on 09/12/16 09:24; Admin Dose 3 MG; Start 09/01/16 at 23:30 Ondansetron HCl (Zofran Inj) 4 mg Q6H PRN IV NAUSEA AND/OR VOMITING Last administered on 09/11/16 10:23; Admin Dose 4 MG; Start 09/01/16 at 23:30 Diagnostic Test (Pha) (Accu-Chek) 1 ea 02 XX ; Start 09/02/16 at 02:00 Isosorbide Dinitrate (Isordil) 20 mg TID PO Last administered on 09/12/16 12: 29; Admin Dose 20 MG; Start 09/01/16 at 23:00 Miscellaneous Information 1 ea NOTE XX ; Start 09/01/16 at 23:30 Glucose (Glutose) 15 gm Q15M PRN PO DECREASED GLUCOSE; Start 09/01/16 at 23:30 Glucose (Glutose) 22.5 gm Q15M PRN PO DECREASED GLUCOSE; Start 09/01/16 at 23: 30 Dextrose (D50w Syringe) 25 ml Q15M PRN IV DECREASED GLUCOSE; Start 09/01/16 at 23:30 Dextrose (D50w Syringe) 50 ml Q15M PRN IV DECREASED GLUCOSE; Start 09/01/16 at 23:30 Glucagon (Glucagen) 1 mg Q15M PRN IM DECREASED GLUCOSE; Start 09/01/16 at 23:30 Glucose (Glutose) 15 gm Q15M PRN BUCCAL DECREASED GLUCOSE; Start 09/01/16 at 23 :30 Lactulose (Enulose) 30 gm BID PO Last administered on 09/12/16 08:51; Admin Dose 30 GM; Start 09/02/16 at 21:00 Famotidine (Pepcid) 20 mg DAILY PO Last administered on 09/12/16 08:52; Admin Dose 20 MG; Start 09/04/16 at 09:00 Levothyroxine Sodium (Synthroid) 75 mcg DAILY@06 PO Last administered on 05:20; Admin Dose 75 MCG; Start 09/08/16 at 06:00 Cholecalciferol (Vitamin D) 1,000 unit DAILY PO Last administered on 09/12/16 08:52; Admin Dose 1,000 UNIT; Start 09/07/16 at 12:30 Lactobacillus Acidophilus (Florajen3 Capsule) 1 each BID PO Last administered on 09/12/16 08:55; Admin Dose 1 EACH; Start 09/09/16 at 21:00 Lorazepam (Ativan) 1 mg Q6H PRN IV Anxiety Last administered on 09/11/16 10:23 ; Admin Dose 1 MG; Start 09/10/16 at 11:30 Procedures Procedures RUN DATE: 09/12/16 [facility] PAGE 1 RUN TIME: [id number] [place] [address] Jayjay Dickerson M.D. Sedimentationist SHANE#: [id number] Name: VAHE ALAS Age/Sex: 56/M Attend Dr: JUDSON TREVINO Acct: [id number] MR# : [id number] : 1960 Location: [address] Admit: 09/01/16 Specimen: [id number] Status: Complete Carlie: 09/09/16 Rcvd: 09/09 Source: EYE Sp Descrip: RIGHT Procedure Result Microbiology GRAM STAIN Final POLYMORPH. LEUKOCYTE NONE SEEN . NO ORGANISM SEEN EYE CULTURE Final Organism 1 VANCO RESISTANT ENTEROCOCCUS QUANTITY 2+ . MULTI DRUG RESISTANT ORGANISM Organism 2 COAGULASE NEGATIVE STAPH QUANTITY 2+ Organism 3 CORYNEBACTER ALIKEIUM (GRP JK) QUANTITY 2+ Clinical susceptibiltiy testing standard for this organism have not been established. However, this organism has demonstrated in vitro growth inhibition to the following chemotherapeutic agents listed as susceptible. Phoned to MITALI,[id number],MYRNA,1123,09/12/16.TT ................................................................................ ............ Flags: Critical Hi = *H Critical Lo = *L Microbiology Abnormal = * Abnormal Hi = H Abnormal Lo = L Blood Bank Abnormal = * Susceptability Flags: S = Sensitive R = Resistant I = Intermediate CONTINUED ON NEXT PAGE RUN DATE: 09/12/16 [facility] PAGE 2 RUN TIME: [id number] [place] [address] Jayjay Dickerson M.D. Sedimentationist SHANE#: [id number] Patient: EVETTEVAHE [id number] Specimen: [id number] Collected: 09/09/16-1429 Received: 09/09/16-1457 (Continued) Procedure Result EYE CULTURE Final (continued) MECHELLE WOODWARD M.I.CAmanda RX M.I.C. RX --------- --- --------- --- AMPICILLIN >=32 R CEFAZOLIN R CIPROFLOXACIN >=8 R CLINDAMYCIN >=8 R DOXYCYCLINE S ERYTHROMYCIN >=8 R GENTAMICIN 120 S LEVOFLOXACIN >=8 R LINEZOLID 2 S OXACILLIN >=4 R PENICILLIN-G >=64 R >=0.5 R QUINUPRISTIN/DALFOPRISTIN 0.5 S RIFAMPIN >=32 R VANCOMYCIN >=32 R 1 S TRIMETHOPRIM/SULFAMETHOXAZOLE >=320 R C JEIKEIUM Zone Size RX --------- --- * AMPICILLIN R * AMPICILLIN/SULBACTAM R * CEFAZOLIN R * CEFOTAXIME R * CEFUROXIME R * CIPROFLOXACIN R * CLINDAMYCIN R * ERYTHROMYCIN R * PENICILLIN R * VANCOMYCIN S YONIS PATEL NP Sep 12, 2016 14:11
--- NOTE | 2016-09-12 15:08 | CONS ---
Date/Time of Note Date/Time of Note DATE: 09/12/16 TIME: 15:05 Assessment/Plan Assessment/Plan Chief Complaint/Hosp Course SUBJECTIVE: No acute events. No fevers. INDWELLINGS: Cox, Johnathan catheter PHYSICAL EXAMINATION: GENERAL: Chronically ill-appearing, middle-aged man who is in no distress. HEENT: Head atraumatic, normocephalic. Sclerae anicteric. Buccal mucosa dry. R eye red with drainage NECK: Supple, trachea midline. CHEST: Rise symmetrical. Breath sounds diminished to bases. HEART: S1, S2. ABDOMEN: Obese, soft. Bowel tones hypoactive. EXTREMITIES: Without cyanosis. SKIN: Positive for anasarca. ASSESSMENT: 1. R conjunctivitis 2. S/p urinary tract infection. 3. Status post methicillin-resistant Staphylococcus aureus spinal abscess removal with decompressive laminectomy on 09/09/2016===> treated. 4. Diabetes. 5. Hypertension. 6. History of left otomastoiditis. 7. ESRD PLAN: Will start Gentamicin eye gtts and check with pharmacy what kind of eye gtts they have to cover Corynebact and Staph that grows form his eye drainage. DW staff Problems: Consultation Date/Type/Reason Admit Date/Time Sep 01, 2016 at 17:29 Type of Consultation: ID Exam/Review of Systems Vital Signs Vitals Vital Signs Date Time Temp Pulse Resp B/P Pulse Ox O2 Delivery O2 Flow Rate FiO2 09/12/16 08:39 97.6 56 17 169/96 97 09/11/16 20:00 Nasal Cannula 2.0 Intake and Output 09/11/16 09/11/16 09/12/16 15:00 23:00 07:00 Intake Total 840 ml 950 ml Output Total 600 ml 1600 ml Balance 240 ml -650 ml Results Result Diagram: 09/12/16 0530 09/12/16 0530 Results 24 hrs Laboratory Tests Test 09/11/16 17:24 09/11/16 21:04 09/12/16 05:30 09/12/16 08:40 Bedside Glucose 139 147 103 White Blood Count 3.2 L Red Blood Count 3.30 L Hemoglobin 10.1 L Hematocrit 30.4 L Mean Corpuscular Volume 92.1 Mean Corpuscular Hemoglobin 30.6 Mean Corpuscular Hemoglobin Concent 33.2 Red Cell Distribution Width 16.3 H Platelet Count 94 L Mean Platelet Volume 10.3 Neutrophils % 51.1 Lymphocytes % 32.2 Monocytes % 8.4 Eosinophils % 7.4 H Basophils % 0.9 Nucleated Red Blood Cells % 0.0 Neutrophils # 1.7 Lymphocytes # 1.0 Monocytes # 0.3 Eosinophils # 0.2 Basophils # 0.0 Nucleated Red Blood Cells # 0.0 Sodium Level 139 Potassium Level 4.9 Chloride Level 102 Carbon Dioxide Level 25 Anion Gap 17 #H Blood Urea Nitrogen 33 H Creatinine 2.82 H Glucose Level 103 Calcium Level 8.1 L Phosphorus Level 5.3 H Magnesium Level 2.5 Test 09/12/16 11:31 Bedside Glucose 113 Medications Medications Current Medications Carvedilol (Coreg) 6.25 mg BID PO Last administered on 09/12/16 08:52; Admin Dose 6.25 MG; Start 09/01/16 at 23:00 Finasteride (Proscar) 5 mg DAILY PO Last administered on 09/12/16 08:52; Admin Dose 5 MG; Start 09/02/16 at 09:00 Oxycodone/ Acetaminophen (Percocet (5/ 325)) maximum total acetaminop... Q4 PRN PO PAIN LEVEL 1-5 Last administered on 09/03/16 22:08; Admin Dose 1 TAB; Start 09/01/16 at 23:00 Simethicone (Mylicon) 80 mg Q6H PRN PO DISTENSION/GAS/BLOATING; Start 09/01/16 at 23:00 Tamsulosin HCl (Flomax) 0.4 mg QHS PO Last administered on 09/11/16 21:01; Admin Dose 0.4 MG; Start 09/02/16 at 21:00 Heparin Sodium (Porcine) (Heparin (5000 Units/0.5 ml)) 5,000 unit Q12 SC Last administered on 09/10/16 21:53; Admin Dose 5,000 UNIT; Start 09/02/16 at 09:00 ; Status Future hold Morphine Sulfate (morphine) 3 mg Q4H PRN IV PAIN LEVEL 6-10 Last administered on 09/12/16 09:24; Admin Dose 3 MG; Start 09/01/16 at 23:30 Ondansetron HCl (Zofran Inj) 4 mg Q6H PRN IV NAUSEA AND/OR VOMITING Last administered on 09/11/16 10:23; Admin Dose 4 MG; Start 09/01/16 at 23:30 Diagnostic Test (Pha) (Accu-Chek) 1 ea 02 XX ; Start 09/02/16 at 02:00 Isosorbide Dinitrate (Isordil) 20 mg TID PO Last administered on 09/12/16 12: 29; Admin Dose 20 MG; Start 09/01/16 at 23:00 Miscellaneous Information 1 ea NOTE XX ; Start 09/01/16 at 23:30 Glucose (Glutose) 15 gm Q15M PRN PO DECREASED GLUCOSE; Start 09/01/16 at 23:30 Glucose (Glutose) 22.5 gm Q15M PRN PO DECREASED GLUCOSE; Start 09/01/16 at 23: 30 Dextrose (D50w Syringe) 25 ml Q15M PRN IV DECREASED GLUCOSE; Start 09/01/16 at 23:30 Dextrose (D50w Syringe) 50 ml Q15M PRN IV DECREASED GLUCOSE; Start 09/01/16 at 23:30 Glucagon (Glucagen) 1 mg Q15M PRN IM DECREASED GLUCOSE; Start 09/01/16 at 23:30 Glucose (Glutose) 15 gm Q15M PRN BUCCAL DECREASED GLUCOSE; Start 09/01/16 at 23 :30 Lactulose (Enulose) 30 gm BID PO Last administered on 09/12/16 08:51; Admin Dose 30 GM; Start 09/02/16 at 21:00 Famotidine (Pepcid) 20 mg DAILY PO Last administered on 09/12/16 08:52; Admin Dose 20 MG; Start 09/04/16 at 09:00 Levothyroxine Sodium (Synthroid) 75 mcg DAILY@06 PO Last administered on 05:20; Admin Dose 75 MCG; Start 09/08/16 at 06:00 Cholecalciferol (Vitamin D) 1,000 unit DAILY PO Last administered on 09/12/16 08:52; Admin Dose 1,000 UNIT; Start 09/07/16 at 12:30 Lactobacillus Acidophilus (Florajen3 Capsule) 1 each BID PO Last administered on 09/12/16 08:55; Admin Dose 1 EACH; Start 09/09/16 at 21:00 Lorazepam (Ativan) 1 mg Q6H PRN IV Anxiety Last administered on 09/11/16t 10:23 ; Admin Dose 1 MG; Start 09/10/16 at 11:30 Gentamicin Sulfate (Gentamicin 0.3% Oph Drop) 1 drop QID BOTH EYES ; Start 09/12 at 17:00; Status DORENE HYMAN [employer] SUPPORT SPECIALIST Sep 12, 2016 15:07
[2016-09-12] MEDS: HYPROMELLOSE BOTH EYES SCH ×2 (17:51→21:54)
[2016-09-12] MEDS: VANCOMYCIN BOTH EYES SCH ×2 (17:51→21:54)
[2016-09-12] MEDS: GENTAMICIN 0.3% 5 ML OPH BOTH EYES SCH ×2 (17:52→21:54)
[2016-09-12 21:21] VITALS: BP 173/88; RESP 20
[2016-09-12] MEDS: TAMSULOSIN (SR) 0.4 MG CAP PO SCH (21:55)
[2016-09-12] MEDS: HEPARIN 5,000 UNIT/0.5 ML VIAL SC SCH (22:04)
[2016-09-13] MEDS: ACCU-CHEK XX SCH (02:00)
[2016-09-13] MEDS: morphine 4 MG/ML VIAL IV PRN ×4 (04:41→20:27)
[2016-09-13] MEDS: LEVOTHYROXINE 75 MCG TAB PO SCH (05:18)
[2016-09-13] MEDS: FUROSEMIDE 20 MG INJ IV SCH ×2 (05:19→17:44)
[2016-09-13] MEDS: METOLAZONE 5 MG TAB PO SCH ×2 (05:19→09:05)
[2016-09-13 06:09] LABS: ADD SCAN DIFF NO
[2016-09-13 06:29] LABS: BASOPHILS % 0.8 % (0.0-2.0); EOSINOPHILS # 0.2 10^3/ul (0.0-0.5); EOSINOPHILS % 5.3 % (0.0-7.0); HEMATOCRIT 29.2 % (42.0-52.0); HEMOGLOBIN 9.6 g/dl (14.0-18.0); LYMPHOCYTES # 1.1 10^3/ul (0.8-2.9); MEAN CORPUSCULAR HEMOGLOBIN 30.7 pg (29.0-33.0); MEAN CORPUSCULAR HGB CONC 32.9 g/dl (32.0-37.0); MEAN CORPUSCULAR VOLUME 93.3 fl (82.0-101.0); MEAN PLATELET VOLUME 10.9 fl (7.4-10.4); MONOCYTE # 0.3 10^3/ul (0.3-0.9); NEUTROPHIL # 2.4 10^3/ul (1.6-7.5); NEUTROPHILS % 58.6 % (39.0-77.0); PLATELET COUNT 107 10^3/UL (140-415); RED BLOOD COUNT 3.13 10^6/ul (4.70-6.10); RED CELL DISTRIBUTION WIDTH 16.7 % (11.5-14.5)
[2016-09-13 06:36] LABS: POTASSIUM 5.1 mmol/L (3.5-5.1)
[2016-09-13 06:38] LABS: CREATININE 2.82 mg/dl (0.61-1.24)
[2016-09-13 06:39] LABS: PHOSPHORUS 5.4 mg/dl (2.5-4.9)
[2016-09-13 06:40] LABS: MAGNESIUM 2.4 mg/dl (1.7-2.5)
[2016-09-13 07:25] VITALS: BP 168/88; RESP 18
[2016-09-13] MEDS: INSULIN ASPART [NOVOLOG] 3 ML PEN SC SCH ×4 (08:00→20:22)
[2016-09-13] MEDS: FINASTERIDE 5 MG TAB PO SCH (09:05)
[2016-09-13] MEDS: SEVELAMER 800 MG TAB PO SCH ×3 (09:05→17:43)
[2016-09-13] MEDS: CHOLECALCIFEROL 1,000 UNIT TAB PO SCH (09:05)
[2016-09-13] MEDS: LACTULOSE 30ML CUP PO SCH ×2 (09:05→20:54)
[2016-09-13] MEDS: FAMOTIDINE 20 MG TAB PO SCH (09:05)
[2016-09-13] MEDS: HEPARIN 5,000 UNIT/0.5 ML VIAL SC SCH ×2 (09:08→20:59)
[2016-09-13] MEDS: VANCOMYCIN BOTH EYES SCH ×4 (09:14→20:55)
[2016-09-13] MEDS: HYPROMELLOSE BOTH EYES SCH ×4 (09:14→20:55)
[2016-09-13] MEDS: L ACIDOPHIL/B LACTIS/B LONGUM CAPSULE PO SCH ×2 (09:14→20:54)
[2016-09-13] MEDS: GENTAMICIN 0.3% 5 ML OPH BOTH EYES SCH ×4 (09:14→20:55)
[2016-09-13] MEDS: ISOSORBIDE DINITRATE 20 MG TAB PO SCH ×3 (10:00→20:55)
--- NOTE | 2016-09-13 12:12 | PN ---
Date/Time of Note Date/Time of Note DATE: 09/13/16 TIME: 12:11 Assessment/Plan VTE Prophylaxis VTE Prophylaxis Intervention: heparin Lines/Catheters IV C[facility]ter Type (from [facility] PICC Line Central line still needed: Yes Urinary Cath still in place: Yes Reason Cath still needed: other (indicate) Assessment/Plan Chief Complaint/Hosp Course 1. Nonoliguric acute kidney injury on top of chronic kidney disease stage IV. The patient on hemodialysis. Status post perm-A-Cath placement. 2. Urinary tract infection. S/P antibiotics as per infectious diseases. No evidence of any septic shock. 3. Chest pain. Acute coronary syndrome has been ruled out. The patient recently had a stress test on 08/09/2006 that was negative for any reversible perfusion defects. 4. Recent spinal abscess with MRSA. Status post surgery on 07/12/2016. 5. Benign prostatic hypertrophy. Continue medications. 6. Normocytic normochromic anemia. Continue iron supplements. 7. Recent left mastoid opacification without associated effusions compatible with osteomyelitis. Status post antibiotic therapy. 8. Normocytic normochromic anemia, most probably anemia of end-stage renal disease. Continue to monitor H and H closely. Transfuse as needed. 9. Hypothyroidism. Continue Synthroid. 10. Essential hypertension. Continue antihypertensives. 11. Conjunctivitis. Cultures positive for VRE and Corynebacterium JK. Symptomatic treatment. Antibiotic management as per infectious diseases. 12. Diabetes mellitus. Hemoglobin A1c 6.0. Continue sliding scale insulin. Blood sugars fairly well controlled. 13. Fluid, electrolytes and nutrition. Low cholesterol diet. 14. Deep venous thrombosis prophylaxis with subcutaneous heparin. 15. Gastrointestinal prophylaxis. Histamine 2 receptor blockers. PLAN: Await clearance from nephrology before discharge. As per nephrology, the patient's renal function is improving gradually. The patient may not need further dialysis. Case discussed with Dr. Hernandez. Problems: Subjective 24 Hr Interval Summary Free Text/Dictation Right eye pain better. Exam/Review of Systems Vital Signs Vitals Vital Signs Date Time Temp Pulse Resp B/P Pulse Ox O2 Delivery O2 Flow Rate FiO2 09/13/16 07:25 98.2 61 18 168/88 94 09/12/16 20:00 Nasal Cannula 2.0 Intake and Output 09/12/16 09/12/16 09/13/16 15:00 23:00 07:00 Intake Total 740 ml 720 ml Output Total 1500 ml 1450 ml Balance -760 ml -730 ml Exam GENERAL: This is a frail-looking male lying in bed in no apparent distress. HEENT: Head normocephalic and atraumatic. Eyes: Anicteric sclerae. Conjunctivae red with right periorbital edema. ENT: Nasal septum is midline. Oral mucosa is dry. NECK: Supple. No JVD noticed. RESPIRATORY: Bilaterally clear to auscultation. No adventitious breath sounds heard. No use of accessory muscles of respiration. CARDIAC: Regular rate and rhythm. No murmurs heard. ABDOMEN: Soft, nontender and nondistended. Bowel sounds positive in all 4 quadrants. GENITOURINARY: The patient has a Cox catheter in place. EXTREMITIES: No cyanosis, no clubbing. Bilateral lower extremity 1+ pitting edema. Peripheral pulses on the lower extremities are diminished. NEUROLOGIC: The patient is awake, alert and oriented. Cranial nerves are grossly intact. Results Result Diagram: 09/13/16 0425 09/13/16 0425 Results 24 hrs Laboratory Tests Test 09/12/16 16:44 09/12/16 21:51 09/13/16 04:25 09/13/16 07:43 Bedside Glucose 122 165 110 White Blood Count 4.0 #L Red Blood Count 3.13 L Hemoglobin 9.6 L Hematocrit 29.2 L Mean Corpuscular Volume 93.3 Mean Corpuscular Hemoglobin 30.7 Mean Corpuscular Hemoglobin Concent 32.9 Red Cell Distribution Width 16.7 H Platelet Count 107 L Mean Platelet Volume 10.9 H Neutrophils % 58.6 Lymphocytes % 27.0 Monocytes % 8.0 Eosinophils % 5.3 Basophils % 0.8 Nucleated Red Blood Cells % 0.0 Neutrophils # 2.4 Lymphocytes # 1.1 Monocytes # 0.3 Eosinophils # 0.2 Basophils # 0.0 Nucleated Red Blood Cells # 0.0 Sodium Level 136 Potassium Level 5.1 Chloride Level 101 Carbon Dioxide Level 27 Anion Gap 13 Blood Urea Nitrogen 36 H Creatinine 2.82 H Glucose Level 115 Calcium Level 8.0 L Phosphorus Level 5.4 H Magnesium Level 2.4 Medications Medications Current Medications Carvedilol (Coreg) 6.25 mg BID PO Last administered on 09/13/16t 09:06; Admin Dose 6.25 MG; Start 09/01/16 at 23:00 Finasteride (Proscar) 5 mg DAILY PO Last administered on 09/13/16 09:05; Admin Dose 5 MG; Start 09/02/16 at 09:00 Oxycodone/ Acetaminophen (Percocet (5/ 325)) maximum total acetaminop... Q4 PRN PO PAIN LEVEL 1-5 Last administered on 09/03/16 22:08; Admin Dose 1 TAB; Start 09/01/16 at 23:00 Simethicone (Mylicon) 80 mg Q6H PRN PO DISTENSION/GAS/BLOATING; Start 09/01/16 at 23:00 Tamsulosin HCl (Flomax) 0.4 mg QHS PO Last administered on 09/12/16 21:55; Admin Dose 0.4 MG; Start 09/02/16 at 21:00 Heparin Sodium (Porcine) (Heparin (5000 Units/0.5 ml)) 5,000 unit Q12 SC Last administered on 09/13/16 09:08; Admin Dose 5,000 UNIT; Start 09/02/16 at 09:00 ; Status Future hold Morphine Sulfate (morphine) 3 mg Q4H PRN IV PAIN LEVEL 6-10 Last administered on 09/13/16 10:11; Admin Dose 3 MG; Start 09/01/16 at 23:30 Ondansetron HCl (Zofran Inj) 4 mg Q6H PRN IV NAUSEA AND/OR VOMITING Last administered on 09/11/16 10:23; Admin Dose 4 MG; Start 09/01/16 at 23:30 Diagnostic Test (Pha) (Accu-Chek) 1 ea 02 XX ; Start 09/02/16 at 02:00 Isosorbide Dinitrate (Isordil) 20 mg TID PO Last administered on 09/13/16 10: 00; Admin Dose 20 MG; Start 09/01/16 at 23:00 Miscellaneous Information 1 ea NOTE XX ; Start 09/01/16 at 23:30 Glucose (Glutose) 15 gm Q15M PRN PO DECREASED GLUCOSE; Start 09/01/16 at 23:30 Glucose (Glutose) 22.5 gm Q15M PRN PO DECREASED GLUCOSE; Start 09/01/16 at 23: 30 Dextrose (D50w Syringe) 25 ml Q15M PRN IV DECREASED GLUCOSE; Start 09/01/16 at 23:30 Dextrose (D50w Syringe) 50 ml Q15M PRN IV DECREASED GLUCOSE; Start 09/01/16 at 23:30 Glucagon (Glucagen) 1 mg Q15M PRN IM DECREASED GLUCOSE; Start 09/01/16 at 23:30 Glucose (Glutose) 15 gm Q15M PRN BUCCAL DECREASED GLUCOSE; Start 09/01/16 at 23 :30 Lactulose (Enulose) 30 gm BID PO Last administered on 09/13/16 09:05; Admin Dose 30 GM; Start 09/02/16 at 21:00 Famotidine (Pepcid) 20 mg DAILY PO Last administered on 09/13/16 09:05; Admin Dose 20 MG; Start 09/04/16 at 09:00 Levothyroxine Sodium (Synthroid) 75 mcg DAILY@06 PO Last administered on 05:18; Admin Dose 75 MCG; Start 09/08/16 at 06:00 Cholecalciferol (Vitamin D) 1,000 unit DAILY PO Last administered on 09/13/16 09:05; Admin Dose 1,000 UNIT; Start 09/07/16 at 12:30 Lactobacillus Acidophilus (Florajen3 Capsule) 1 each BID PO Last administered on 09/13/16 09:14; Admin Dose 1 EACH; Start 09/09/16 at 21:00 Lorazepam (Ativan) 1 mg Q6H PRN IV Anxiety Last administered on 09/11/16 10:23 ; Admin Dose 1 MG; Start 09/10/16 at 11:30 Gentamicin Sulfate (Gentamicin 0.3% Oph Drop) 1 drop QID BOTH EYES Last administered on 09/13/16 12:00; Admin Dose 1 DROP; Start 09/12/16 at 17:00 Vancomycin HCl (Vancomycin/ Hypromellose Oph) 1 drop QID BOTH EYES Last administered on 09/13/16 12:00; Admin Dose 1 DROP; Start 09/12/16 at 17:00 YONIS PATEL NP Sep 13, 2016 12:12
--- NOTE | 2016-09-13 13:58 | PN ---
DATE: 09/13/2016 SUBJECTIVE: The patient is stable. No events overnight. No fevers, chills, nausea, vomiting. OBJECTIVE: VITAL SIGNS: Blood pressure 168/88, respirations 18, pulse 61, temperature 98.2. HEENT: Head is normocephalic. NECK: Supple. HEART: Regular rate. LUNGS: Show diminished breath sounds at the bases. ABDOMEN: Soft, nontender to palpation. No rebound or guarding. EXTREMITIES: Negative for clubbing, cyanosis. Positive edema. DERMATOLOGIC: No rashes. MUSCULOSKELETAL: No joint effusions. NEUROLOGIC: No change in exam. MEDICATIONS: The patient's medications have been reviewed. LABORATORY DATA: Shows sodium 136, potassium 4.1, chloride 101, BUN 36, creatinine 2.82, calcium 8. 0, phosphorus 5.4. WBC 4.0, hemoglobin 9.6, hematocrit 39.2, platelet count is 107. ASSESSMENT AND PLAN: 1. Nonoliguric acute kidney injury on top of chronic kidney disease stage IV with previous baseline creatinine around 3. Etiology of acute kidney injury is secondary to acute tubular necrosis. The patient initially was started on hemodialysis as it was felt the patient progressed to end-stage shirley al disease. The patient is status post 4 dialysis sessions. The patient, however, had clinical imp rovement and is dialysis being held. The patient's creatinine has been stabilizing around 3 mg/dL, previous baseline. We will continue to monitor. Continue current diuretic regimen. We will discus s with patient about whether to continue hemodialysis or to discontinue dialysis at this time as he appears to have had recovery. We will monitor closely. 2. Congestive heart failure, volume overload. Etiology secondary to cardiorenal syndrome, acute ki dney injury. Continue current diuretic regimen. 3. Hypertension. Continue current blood pressure regimen. Continue Coreg. 4. Anemia of chronic disease. Continue to monitor hemoglobin and hematocrit levels. Continue Epog en. 5. Osteomyelitis, status post laminectomy. 6. Diabetes. Continue current insulin regimen. 7. Benign prostatic hypertrophy. Continue medical management. 8. History of diabetic retinopathy. Dictated By: NAE SINHA/ERICKA Conf#: [id number] DID#: [id number]
--- NOTE | 2016-09-13 19:30 | CONS ---
Date/Time of Note Date/Time of Note DATE: 09/13/16 TIME: 19:15 Assessment/Plan Assessment/Plan Chief Complaint/Hosp Course ID PROGRESS NOTE CURRENT ABX=>Vanco Opth Gtt + GENT Opth Gtt 24H INTERVAL SUMMARY * Resting comfortably, no fevers, VSS, NAD * New PermCath 09/09/16 PHYSICAL EXAMINATION: GENERAL:VSS, NAD HEENT: Unremarkable NECK: Supple, trachea midline. CHEST: Rise symmetrical, without dyspnea on observation HEART: Pulse RRR ABDOMEN: soft EXTREMITIES: Warm ID ASSESSMENT 56 yo overweight M w/PMHx ESRD-HD admit with: 1. R conjunctivitis * EYE CULTURE Final Organism 1 VANCO RESISTANT ENTEROCOCCUS QUANTITY 2+ Organism 2 COAGULASE NEGATIVE STAPH QUANTITY 2+ Organism 3 CORYNEBACTER JEIKEIUM (GRP JK) QUANTITY 2+ 2. S/p urinary tract infection. URINE CULTURE Final Organism 1 MIGUELITO GLABRATA COLONY COUNT >100,000 CFU/ml Organism 2 ENTEROBACTER AEROGENES COLONY COUNT 10,000 - 20,000 CFU/ml 3. 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 Diabetes. 5. Hypertension. 6. History of left otomastoiditis. 7. ESRD (-)MRSA Nares -> 08/06/16 INVASIVES: PIV, PermCath Left 09/09/16 ABX ALLERGY: KNDA CURRENT ABX: =>Vanco Opth Gtt + GENT Opth Gtt ID RECOMMENDATIONS 1. New PermCath in place may DC home when cleared by primary provider off systemic ABX 2. Continue current ABX eye Rx until resolution of acute conjunctivitis/ blepharitis =>Vanco Opth Gtt + GENT Opth Gtt . . Problems: Consultation Date/Type/Reason Admit Date/Time Sep 01, 2016 at 17:29 Initial Consult Date Type of Consultation: ID Exam/Review of Systems Vital Signs Vitals Vital Signs Date Time Temp Pulse Resp B/P Pulse Ox O2 Delivery O2 Flow Rate FiO2 09/13/16 07:25 98.2 61 18 168/88 94 09/12/16 20:00 Nasal Cannula 2.0 Intake and Output 09/12/16 09/12/16 09/13/16 14:59 22:59 06:59 Intake Total 740 ml 720 ml Output Total 1500 ml 1450 ml Balance -760 ml -730 ml Results Result Diagram: 09/13/16 0425 09/13/16 0425 Results 24 hrs Laboratory Tests Test 09/12/16 21:51 09/13/16 04:25 09/13/16 07:43 09/13/16 11:58 Bedside Glucose 165 110 134 White Blood Count 4.0 #L Red Blood Count 3.13 L Hemoglobin 9.6 L Hematocrit 29.2 L Mean Corpuscular Volume 93.3 Mean Corpuscular Hemoglobin 30.7 Mean Corpuscular Hemoglobin Concent 32.9 Red Cell Distribution Width 16.7 H Platelet Count 107 L Mean Platelet Volume 10.9 H Neutrophils % 58.6 Lymphocytes % 27.0 Monocytes % 8.0 Eosinophils % 5.3 Basophils % 0.8 Nucleated Red Blood Cells % 0.0 Neutrophils # 2.4 Lymphocytes # 1.1 Monocytes # 0.3 Eosinophils # 0.2 Basophils # 0.0 Nucleated Red Blood Cells # 0.0 Sodium Level 136 Potassium Level 5.1 Chloride Level 101 Carbon Dioxide Level 27 Anion Gap 13 Blood Urea Nitrogen 36 H Creatinine 2.82 H Glucose Level 115 Calcium Level 8.0 L Phosphorus Level 5.4 H Magnesium Level 2.4 Test 09/13/16 16:38 Bedside Glucose 141 Medications Medications Current Medications Carvedilol (Coreg) 6.25 mg BID PO Last administered on 09/13/16 09:06; Admin Dose 6.25 MG; Start 09/01/16 at 23:00 Finasteride (Proscar) 5 mg DAILY PO Last administered on 09/13/16 09:05; Admin Dose 5 MG; Start 09/02/16 at 09:00 Oxycodone/ Acetaminophen (Percocet (5/ 325)) maximum total acetaminop... Q4 PRN PO PAIN LEVEL 1-5 Last administered on 09/03/16 22:08; Admin Dose 1 TAB; Start 09/01/16 at 23:00 Simethicone (Mylicon) 80 mg Q6H PRN PO DISTENSION/GAS/BLOATING; Start 09/01/16 at 23:00 Tamsulosin HCl (Flomax) 0.4 mg QHS PO Last administered on 09/12/16 21:55; Admin Dose 0.4 MG; Start 09/02/16 at 21:00 Heparin Sodium (Porcine) (Heparin (5000 Units/0.5 ml)) 5,000 unit Q12 SC Last administered on 09/13/16 09:08; Admin Dose 5,000 UNIT; Start 09/02/16 at 09:00 ; Status Future hold Morphine Sulfate (morphine) 3 mg Q4H PRN IV PAIN LEVEL 6-10 Last administered on 09/13/16 14:35; Admin Dose 3 MG; Start 09/01/16 at 23:30 Ondansetron HCl (Zofran Inj) 4 mg Q6H PRN IV NAUSEA AND/OR VOMITING Last administered on 09/11/16 10:23; Admin Dose 4 MG; Start 09/01/16 at 23:30 Diagnostic Test (Pha) (Accu-Chek) 1 ea 02 XX ; Start 09/02/16 at 02:00 Isosorbide Dinitrate (Isordil) 20 mg TID PO Last administered on 09/13/16 14: 35; Admin Dose 20 MG; Start 09/01/16 at 23:00 Miscellaneous Information 1 ea NOTE XX ; Start 09/01/16 at 23:30 Glucose (Glutose) 15 gm Q15M PRN PO DECREASED GLUCOSE; Start 09/01/16 at 23:30 Glucose (Glutose) 22.5 gm Q15M PRN PO DECREASED GLUCOSE; Start 09/01/16 at 23: 30 Dextrose (D50w Syringe) 25 ml Q15M PRN IV DECREASED GLUCOSE; Start 09/01/16 at 23:30 Dextrose (D50w Syringe) 50 ml Q15M PRN IV DECREASED GLUCOSE; Start 09/01/16 at 23:30 Glucagon (Glucagen) 1 mg Q15M PRN IM DECREASED GLUCOSE; Start 09/01/16 at 23:30 Glucose (Glutose) 15 gm Q15M PRN BUCCAL DECREASED GLUCOSE; Start 09/01/16 at 23 :30 Lactulose (Enulose) 30 gm BID PO Last administered on 09/13/16 09:05; Admin Dose 30 GM; Start 09/02/16 at 21:00 Famotidine (Pepcid) 20 mg DAILY PO Last administered on 09/13/16 09:05; Admin Dose 20 MG; Start 09/04/16 at 09:00 Levothyroxine Sodium (Synthroid) 75 mcg DAILY@06 PO Last administered on 05:18; Admin Dose 75 MCG; Start 09/08/16 at 06:00 Cholecalciferol (Vitamin D) 1,000 unit DAILY PO Last administered on 09/13/16 09:05; Admin Dose 1,000 UNIT; Start 09/07/16 at 12:30 Lactobacillus Acidophilus (Florajen3 Capsule) 1 each BID PO Last administered on 09/13/16 09:14; Admin Dose 1 EACH; Start 09/09/16 at 21:00 Lorazepam (Ativan) 1 mg Q6H PRN IV Anxiety Last administered on 09/11/16 10:23 ; Admin Dose 1 MG; Start 09/10/16 at 11:30 Gentamicin Sulfate (Gentamicin 0.3% Oph Drop) 1 drop QID BOTH EYES Last administered on 09/13/16 16:40; Admin Dose 1 DROP; Start 09/12/16 at 17:00 Vancomycin HCl (Vancomycin/ Hypromellose Oph) 1 drop QID BOTH EYES Last administered on 09/13/16 16:40; Admin Dose 1 DROP; Start 09/12/16 at 17:00 JAMIR SERNA [employer] Sep 13, 2016 19:26
[2016-09-13 20:00] VITALS: BP 183/84; RESP 20
[2016-09-13] MEDS: TAMSULOSIN (SR) 0.4 MG CAP PO SCH (20:55)
[2016-09-14] VITALS (9 sets, daily range): BP systolic 127–184; BP diastolic 59–96; PULSE 60–69; RESP 18
[2016-09-14] MEDS: ACCU-CHEK XX SCH (02:00)
[2016-09-14] MEDS: morphine 4 MG/ML VIAL IV PRN ×3 (05:13→19:37)
[2016-09-14] MEDS: LEVOTHYROXINE 75 MCG TAB PO SCH (05:14)
[2016-09-14] MEDS: FUROSEMIDE 20 MG INJ IV SCH ×2 (05:14→18:00)
[2016-09-14] MEDS: METOLAZONE 5 MG TAB PO SCH ×2 (05:14→18:00)
[2016-09-14 05:58] LABS: ADD SCAN DIFF NO
[2016-09-14 06:08] LABS: CREATININE 2.74 mg/dl (0.61-1.24); POTASSIUM 5.4 mmol/L (3.5-5.1)
[2016-09-14 06:29] LABS: MAGNESIUM 2.5 mg/dl (1.7-2.5); PHOSPHORUS 5.2 mg/dl (2.5-4.9)
[2016-09-14] MEDS: INSULIN ASPART [NOVOLOG] 3 ML PEN SC SCH ×4 (08:00→21:00)
[2016-09-14] MEDS: SEVELAMER 800 MG TAB PO SCH ×3 (08:46→17:35)
[2016-09-14] MEDS: FAMOTIDINE 20 MG TAB PO SCH (08:48)
[2016-09-14] MEDS: HYPROMELLOSE BOTH EYES SCH ×4 (08:48→21:42)
[2016-09-14] MEDS: VANCOMYCIN BOTH EYES SCH ×4 (08:48→21:42)
[2016-09-14] MEDS: GENTAMICIN 0.3% 5 ML OPH BOTH EYES SCH ×4 (08:48→21:42)
[2016-09-14] MEDS: CHOLECALCIFEROL 1,000 UNIT TAB PO SCH (08:48)
[2016-09-14] MEDS: FINASTERIDE 5 MG TAB PO SCH (08:48)
[2016-09-14] MEDS: LACTULOSE 30ML CUP PO SCH ×2 (08:49→21:42)
[2016-09-14] MEDS: HEPARIN 5,000 UNIT/0.5 ML VIAL SC SCH ×2 (08:50→21:46)
[2016-09-14] MEDS: ISOSORBIDE DINITRATE 20 MG TAB PO SCH ×3 (08:52→21:45)
[2016-09-14] MEDS: L ACIDOPHIL/B LACTIS/B LONGUM CAPSULE PO SCH ×2 (08:52→21:42)
[2016-09-14 09:39] LABS: EOSINOPHILS # 0.2 10^3/ul (0.0-0.5); HEMATOCRIT 29.1 % (42.0-52.0); HEMOGLOBIN 9.5 g/dl (14.0-18.0); LYMPHOCYTES # 1.2 10^3/ul (0.8-2.9); LYMPHOCYTES % 29.4 % (15.0-51.0); MEAN CORPUSCULAR HEMOGLOBIN 30.7 pg (29.0-33.0); MEAN CORPUSCULAR HGB CONC 32.6 g/dl (32.0-37.0); MEAN CORPUSCULAR VOLUME 94.2 fl (82.0-101.0); MEAN PLATELET VOLUME 11.3 fl (7.4-10.4); MONOCYTE # 0.4 10^3/ul (0.3-0.9); MONOCYTES % 9.8 % (0.0-11.0); NEUTROPHIL # 2.2 10^3/ul (1.6-7.5); NEUTROPHILS % 54.5 % (39.0-77.0); PLATELET COUNT 137 10^3/UL (140-415); RED BLOOD COUNT 3.09 10^6/ul (4.70-6.10); RED CELL DISTRIBUTION WIDTH 16.9 % (11.5-14.5)
--- NOTE | 2016-09-14 10:51 | PN ---
Date/Time of Note Date/Time of Note DATE: 09/14/16 TIME: 10:50 Assessment/Plan VTE Prophylaxis VTE Prophylaxis Intervention: heparin Lines/Catheters IV [facility]ter Type (from [facility]): PICC Line Central line still needed: Yes Urinary Cath still in place: Yes Reason Cath still needed: urinary retention Assessment/Plan Chief Complaint/Hosp Course 1. Nonoliguric acute kidney injury on top of chronic kidney disease stage IV. The patient on hemodialysis. Status post perm-A-Cath placement. 2. Urinary tract infection. S/P antibiotics as per infectious diseases. No evidence of any septic shock. 3. Chest pain. Acute coronary syndrome has been ruled out. The patient recently had a stress test on 08/09/2006 that was negative for any reversible perfusion defects. 4. Recent spinal abscess with MRSA. Status post surgery on 07/12/2016. 5. Benign prostatic hypertrophy. Continue medications. 6. Normocytic normochromic anemia. Continue iron supplements. 7. Recent left mastoid opacification without associated effusions compatible with osteomyelitis. Status post antibiotic therapy. 8. Normocytic normochromic anemia, most probably anemia of end-stage renal disease. Continue to monitor H and H closely. Transfuse as needed. 9. Hypothyroidism. Continue Synthroid. 10. Essential hypertension. Continue antihypertensives. 11. Conjunctivitis. Cultures positive for VRE and Corynebacterium JK. Symptomatic treatment. Antibiotic management as per infectious diseases. 12. Diabetes mellitus. Hemoglobin A1c 6.0. Continue sliding scale insulin. Blood sugars fairly well controlled. 13. Fluid, electrolytes and nutrition. Low cholesterol diet. 14. Deep venous thrombosis prophylaxis with subcutaneous heparin. 15. Gastrointestinal prophylaxis. Histamine 2 receptor blockers. PLAN: Await clearance from nephrology before discharge. However, the patient has hyperkalemia. Hence the patient to be resumed hemodialysis. Case discussed with Dr. Hernandez. Problems: Subjective 24 Hr Interval Summary Free Text/Dictation No changes in status. Exam/Review of Systems Vital Signs Vitals Vital Signs Date Time Temp Pulse Resp B/P Pulse Ox O2 Delivery O2 Flow Rate FiO2 09/14/16 08:37 98.2 63 18 181/87 95 09/12/16 20:00 Nasal Cannula 2.0 Intake and Output 09/13/16 09/13/16 09/14/16 15:00 23:00 07:00 Intake Total 810 ml 620 ml Output Total 2000 ml 1800 ml Balance -1190 ml -1180 ml Exam GENERAL: This is a frail-looking male lying in bed in no apparent distress. HEENT: Head normocephalic and atraumatic. Eyes: Anicteric sclerae. Conjunctivae red with right periorbital edema. ENT: Nasal septum is midline. Oral mucosa is dry. NECK: Supple. No JVD noticed. RESPIRATORY: Bilaterally clear to auscultation. No adventitious breath sounds heard. No use of accessory muscles of respiration. CARDIAC: Regular rate and rhythm. No murmurs heard. ABDOMEN: Soft, nontender and nondistended. Bowel sounds positive in all 4 quadrants. GENITOURINARY: The patient has a Cox catheter in place. EXTREMITIES: No cyanosis, no clubbing. Bilateral lower extremity 1+ pitting edema. Peripheral pulses on the lower extremities are diminished. NEUROLOGIC: The patient is awake, alert and oriented. Cranial nerves are grossly intact. Results Result Diagram: 09/14/16 0435 09/14/16 0435 Results 24 hrs Laboratory Tests Test 09/13/16 11:58 09/13/16 16:38 09/13/16 20:22 09/14/16 04:25 Bedside Glucose 134 141 158 Phosphorus Level 5.2 H Magnesium Level 2.5 Test 09/14/16 04:35 09/14/16 08:43 White Blood Count 4.0 L Red Blood Count 3.09 L Hemoglobin 9.5 L Hematocrit 29.1 L Mean Corpuscular Volume 94.2 Mean Corpuscular Hemoglobin 30.7 Mean Corpuscular Hemoglobin Concent 32.6 Red Cell Distribution Width 16.9 H Platelet Count 137 #L Mean Platelet Volume 11.3 H Neutrophils % 54.5 Lymphocytes % 29.4 Monocytes % 9.8 Eosinophils % 5.0 Basophils % 1.0 Nucleated Red Blood Cells % 0.0 Neutrophils # 2.2 Lymphocytes # 1.2 Monocytes # 0.4 Eosinophils # 0.2 Basophils # 0.0 Nucleated Red Blood Cells # 0.0 Sodium Level 135 Potassium Level 5.4 H Chloride Level 104 Carbon Dioxide Level 27 Anion Gap 9 Blood Urea Nitrogen 38 H Creatinine 2.74 H Glucose Level 73 # Calcium Level 8.0 L Bedside Glucose 98 Medications Medications Current Medications Carvedilol (Coreg) 6.25 mg BID PO Last administered on 09/14/16 08:48; Admin Dose 6.25 MG; Start 09/01/16 at 23:00 Finasteride (Proscar) 5 mg DAILY PO Last administered on 09/14/16 08:48; Admin Dose 5 MG; Start 09/02/16 at 09:00 Oxycodone/ Acetaminophen (Percocet (5/ 325)) maximum total acetaminop... Q4 PRN PO PAIN LEVEL 1-5 Last administered on 09/03/16 22:08; Admin Dose 1 TAB; Start 09/01/16 at 23:00 Simethicone (Mylicon) 80 mg Q6H PRN PO DISTENSION/GAS/BLOATING; Start 09/01/16 at 23:00 Tamsulosin HCl (Flomax) 0.4 mg QHS PO Last administered on 09/13/16 20:55; Admin Dose 0.4 MG; Start 09/02/16 at 21:00 Heparin Sodium (Porcine) (Heparin (5000 Units/0.5 ml)) 5,000 unit Q12 SC Last administered on 09/14/16 08:50; Admin Dose 5,000 UNIT; Start 09/02/16 at 09:00 ; Status Future hold Morphine Sulfate (morphine) 3 mg Q4H PRN IV PAIN LEVEL 6-10 Last administered on 09/14/16 05:13; Admin Dose 3 MG; Start 09/01/16 at 23:30 Ondansetron HCl (Zofran Inj) 4 mg Q6H PRN IV NAUSEA AND/OR VOMITING Last administered on 09/11/16 10:23; Admin Dose 4 MG; Start 09/01/16 at 23:30 Diagnostic Test (Pha) (Accu-Chek) 1 ea 02 XX ; Start 09/02/16 at 02:00 Isosorbide Dinitrate (Isordil) 20 mg TID PO Last administered on 09/14/16 08: 52; Admin Dose 20 MG; Start 09/01/16 at 23:00 Miscellaneous Information 1 ea NOTE XX ; Start 09/01/16 at 23:30 Glucose (Glutose) 15 gm Q15M PRN PO DECREASED GLUCOSE; Start 09/01/16 at 23:30 Glucose (Glutose) 22.5 gm Q15M PRN PO DECREASED GLUCOSE; Start 09/01/16 at 23: 30 Dextrose (D50w Syringe) 25 ml Q15M PRN IV DECREASED GLUCOSE; Start 09/01/16 at 23:30 Dextrose (D50w Syringe) 50 ml Q15M PRN IV DECREASED GLUCOSE; Start 09/01/16 at 23:30 Glucagon (Glucagen) 1 mg Q15M PRN IM DECREASED GLUCOSE; Start 09/01/16 at 23:30 Glucose (Glutose) 15 gm Q15M PRN BUCCAL DECREASED GLUCOSE; Start 09/01/16 at 23 :30 Lactulose (Enulose) 30 gm BID PO Last administered on 09/14/16 08:49; Admin Dose 30 GM; Start 09/02/16 at 21:00 Famotidine (Pepcid) 20 mg DAILY PO Last administered on 09/14/16 08:48; Admin Dose 20 MG; Start 09/04/16 at 09:00 Levothyroxine Sodium (Synthroid) 75 mcg DAILY@06 PO Last administered on 05:14; Admin Dose 75 MCG; Start 09/08/16 at 06:00 Cholecalciferol (Vitamin D) 1,000 unit DAILY PO Last administered on 09/14/16 08:48; Admin Dose 1,000 UNIT; Start 09/07/16 at 12:30 Lactobacillus Acidophilus (Florajen3 Capsule) 1 each BID PO Last administered on 09/14/16 08:52; Admin Dose 1 EACH; Start 09/09/16 at 21:00 Lorazepam (Ativan) 1 mg Q6H PRN IV Anxiety Last administered on 09/11/16 10:23 ; Admin Dose 1 MG; Start 09/10/16 at 11:30 Gentamicin Sulfate (Gentamicin 0.3% Oph Drop) 1 drop QID BOTH EYES Last administered on 09/14/16 08:48; Admin Dose 1 DROP; Start 09/12/16 at 17:00 Vancomycin HCl (Vancomycin/ Hypromellose Oph) 1 drop QID BOTH EYES Last administered on 09/14/16 08:48; Admin Dose 1 DROP; Start 09/12/16 at 17:00 YONIS PATEL NP Sep 14, 2016 10:51 YONIS PATEL NP Sep 14, 2016 10:51
[2016-09-14] MEDS ORDERED: ACETAZOLAMIDE 500 MG INJ IV ONE (12:00)
--- NOTE | 2016-09-14 13:46 | PN ---
DATE: SUBJECTIVE: The patient is clinically improving. Excellent urinary output. No other acute events n oted. No hemoptysis, hematemesis or hematochezia. OBJECTIVE: VITAL SIGNS: Blood pressure 181/87, respiration 18, pulse 63, temperature 98.2. I's AND O'S: The patient 1.4 liters in, 3.8 liters out. HEENT: Head is normocephalic. NECK: Supple. HEART: Regular rate. LUNGS: Show diminished breath sounds at base. ABDOMEN: Soft, nontender to palpation without rebound or guarding. EXTREMITIES: Negative for clubbing, cyanosis. Positive edema. DERMATOLOGIC: No rashes. MUSCULOSKELETAL: No joint effusions. NEUROLOGIC: No change in exam. LABORATORY DATA: Shows sodium 135, potassium 5.4, BUN 30, creatinine 3.74. White count is 12.5, he matocrit 29.1, platelet count is 137. ASSESSMENT AND PLAN: 1. Nonoliguric acute kidney injury on top of chronic kidney disease stage IV with previous baseline creatinine around 3 mg/dL. The etiology of acute kidney injury is to acute tubular necrosis. The patient was initiated on hemodialysis and has had 4 sessions. The patient, however, has had a clini mariano improvement and renal function has returned back to previous baseline. At this point, continue current treatment plan, supportive care, renally dose all meds, continue to hold dialysis, this jeana ent appears to have shown enough renal recovery. 2. Congestive heart failure. The patient remains volume overloaded. Continue aggressive diuretic therapy. The patient has excellent urinary output. 3. Hyperkalemia. Will repeat a potassium level. Continue low-potassium diet. If the hyperkalemia remains elevated, will consider dialysis. 4. Hypertension. Continue current blood pressure regimen. Continue diuresis. 5. Anemia of chronic disease. Monitor hemoglobin and hematocrit levels. Continue Epogen. 6. Osteomyelitis, status post ____. 7. Diabetes. Continue current insulin regimen. 8. Benign prostatic hypertrophy. Continue medical management. 9. History of diabetic retinopathy. Dictated By: NAE SINHA/ERICKA Conf#: [id number] DID#: [id number]
--- NOTE | 2016-09-14 15:05 | CONS ---
Date/Time of Note Date/Time of Note DATE: 09/14/16 TIME: 15:02 Assessment/Plan Assessment/Plan Chief Complaint/Hosp Course ID PROGRESS NOTE CURRENT ABX=>Vanco Opth Gtt + GENT Opth Gtt 24H INTERVAL SUMMARY * Resting comfortably, no fevers, VSS, NAD -. Hx of DM retinopathy w/bilateral blepharitis/conjunctivitis w/eye drainage = on ABX gtts OU * New PermCath 09/09/16 PHYSICAL EXAMINATION: GENERAL:VSS, NAD HEENT: Eyes closed w/mild eyelid erythema/puffy edema, no crust, no drainage seen NECK: Supple, trachea midline. CHEST: Rise symmetrical, without dyspnea on observation HEART: Pulse RRR ABDOMEN: soft EXTREMITIES: Warm ID ASSESSMENT 56 yo overweight M w/PMHx ESRD-HD admit with: 1. R conjunctivitis =>mild eyelid erythema/puffy edema, no crust, no drainage seen * EYE CULTURE Final Organism 1 VANCO RESISTANT ENTEROCOCCUS QUANTITY 2+ Organism 2 COAGULASE NEGATIVE STAPH QUANTITY 2+ Organism 3 CORYNEBACTER JEIKEIUM (GRP JK) QUANTITY 2+ 2. S/p urinary tract infection. URINE CULTURE Final Organism 1 MIGUELITO GLABRATA COLONY COUNT >100,000 CFU/ml Organism 2 ENTEROBACTER AEROGENES COLONY COUNT 10,000 - 20,000 CFU/ml 3. 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 Diabetes. 5. Hypertension. 6. History of left otomastoiditis. 7. ESRD (-)MRSA Nares -> 08/06/16 INVASIVES: PIV, PermCath Left 09/09/16 ABX ALLERGY: KNDA CURRENT ABX: =>Vanco Opth Gtt + GENT Opth Gtt ID RECOMMENDATIONS 1. New PermCath in place may DC home when cleared by primary provider off systemic ABX 2. Continue current ABX eye Rx until resolution of acute conjunctivitis/ blepharitis =>Vanco Opth Gtt + GENT Opth Gtt . . Problems: Consultation Date/Type/Reason Admit Date/Time Sep 01, 2016 at 17:29 Type of Consultation: ID Exam/Review of Systems Vital Signs Vitals Vital Signs Date Time Temp Pulse Resp B/P Pulse Ox O2 Delivery O2 Flow Rate FiO2 09/14/16 08:37 98.2 63 18 181/87 95 09/14/16 08:30 Nasal Cannula 09/12/16 20:00 2.0 Intake and Output 09/13/16 09/13/16 09/14/16 15:00 23:00 07:00 Intake Total 810 ml 620 ml Output Total 2000 ml 1800 ml Balance -1190 ml -1180 ml Results Result Diagram: 09/14/16 0435 09/14/16 0435 Results 24 hrs Laboratory Tests Test 09/13/16 16:38 09/13/16 20:22 09/14/16 04:25 09/14/16 04:35 Bedside Glucose 141 158 Phosphorus Level 5.2 H Magnesium Level 2.5 White Blood Count 4.0 L Red Blood Count 3.09 L Hemoglobin 9.5 L Hematocrit 29.1 L Mean Corpuscular Volume 94.2 Mean Corpuscular Hemoglobin 30.7 Mean Corpuscular Hemoglobin Concent 32.6 Red Cell Distribution Width 16.9 H Platelet Count 137 #L Mean Platelet Volume 11.3 H Neutrophils % 54.5 Lymphocytes % 29.4 Monocytes % 9.8 Eosinophils % 5.0 Basophils % 1.0 Nucleated Red Blood Cells % 0.0 Neutrophils # 2.2 Lymphocytes # 1.2 Monocytes # 0.4 Eosinophils # 0.2 Basophils # 0.0 Nucleated Red Blood Cells # 0.0 Sodium Level 135 Potassium Level 5.4 H Chloride Level 104 Carbon Dioxide Level 27 Anion Gap 9 Blood Urea Nitrogen 38 H Creatinine 2.74 H Glucose Level 73 # Calcium Level 8.0 L Test 09/14/16 08:43 09/14/16 11:47 Bedside Glucose 98 117 Medications Medications Current Medications Carvedilol (Coreg) 6.25 mg BID PO Last administered on 09/14/16 08:48; Admin Dose 6.25 MG; Start 09/01/16 at 23:00 Finasteride (Proscar) 5 mg DAILY PO Last administered on 09/14/16 08:48; Admin Dose 5 MG; Start 09/02/16 at 09:00 Oxycodone/ Acetaminophen (Percocet (5/ 325)) maximum total acetaminop... Q4 PRN PO PAIN LEVEL 1-5 Last administered on 09/03/16 22:08; Admin Dose 1 TAB; Start 09/01/16 at 23:00 Simethicone (Mylicon) 80 mg Q6H PRN PO DISTENSION/GAS/BLOATING; Start 09/01/16 at 23:00 Tamsulosin HCl (Flomax) 0.4 mg QHS PO Last administered on 09/13/16 20:55; Admin Dose 0.4 MG; Start 09/02/16 at 21:00 Heparin Sodium (Porcine) (Heparin (5000 Units/0.5 ml)) 5,000 unit Q12 SC Last administered on 09/14/16 08:50; Admin Dose 5,000 UNIT; Start 09/02/16 at 09:00 ; Status Future hold Morphine Sulfate (morphine) 3 mg Q4H PRN IV PAIN LEVEL 6-10 Last administered on 09/14/16 11:43; Admin Dose 3 MG; Start 09/01/16 at 23:30 Ondansetron HCl (Zofran Inj) 4 mg Q6H PRN IV NAUSEA AND/OR VOMITING Last administered on 09/11/16 10:23; Admin Dose 4 MG; Start 09/01/16 at 23:30 Diagnostic Test (Pha) (Accu-Chek) 1 ea 02 XX ; Start 09/02/16 at 02:00 Isosorbide Dinitrate (Isordil) 20 mg TID PO Last administered on 09/14/16 13: 19; Admin Dose 20 MG; Start 09/01/16 at 23:00 Miscellaneous Information 1 ea NOTE XX ; Start 09/01/16 at 23:30 Glucose (Glutose) 15 gm Q15M PRN PO DECREASED GLUCOSE; Start 09/01/16 at 23:30 Glucose (Glutose) 22.5 gm Q15M PRN PO DECREASED GLUCOSE; Start 09/01/16 at 23: 30 Dextrose (D50w Syringe) 25 ml Q15M PRN IV DECREASED GLUCOSE; Start 09/01/16 at 23:30 Dextrose (D50w Syringe) 50 ml Q15M PRN IV DECREASED GLUCOSE; Start 09/01/16 at 23:30 Glucagon (Glucagen) 1 mg Q15M PRN IM DECREASED GLUCOSE; Start 09/01/16 at 23:30 Glucose (Glutose) 15 gm Q15M PRN BUCCAL DECREASED GLUCOSE; Start 09/01/16 at 23 :30 Lactulose (Enulose) 30 gm BID PO Last administered on 09/14/16 08:49; Admin Dose 30 GM; Start 09/02/16 at 21:00 Famotidine (Pepcid) 20 mg DAILY PO Last administered on 09/14/16 08:48; Admin Dose 20 MG; Start 09/04/16 at 09:00 Levothyroxine Sodium (Synthroid) 75 mcg DAILY@06 PO Last administered on 05:14; Admin Dose 75 MCG; Start 09/08/16 at 06:00 Cholecalciferol (Vitamin D) 1,000 unit DAILY PO Last administered on 09/14/16 08:48; Admin Dose 1,000 UNIT; Start 09/07/16 at 12:30 Lactobacillus Acidophilus (Florajen3 Capsule) 1 each BID PO Last administered on 09/14/16 08:52; Admin Dose 1 EACH; Start 09/09/16 at 21:00 Lorazepam (Ativan) 1 mg Q6H PRN IV Anxiety Last administered on 09/11/16 10:23 ; Admin Dose 1 MG; Start 09/10/16 at 11:30 Gentamicin Sulfate (Gentamicin 0.3% Oph Drop) 1 drop QID BOTH EYES Last administered on 09/14/16 13:17; Admin Dose 1 DROP; Start 09/12/16 at 17:00 Vancomycin HCl (Vancomycin/ Hypromellose Oph) 1 drop QID BOTH EYES Last administered on 09/14/16 13:17; Admin Dose 1 DROP; Start 09/12/16 at 17:00 JAMIR SERNA NP Sep 14, 2016 15:05
[2016-09-14 15:11] LABS: CREATININE 2.73 mg/dl (0.61-1.24); POTASSIUM 5.3 mmol/L (3.5-5.1)
[2016-09-14] MEDS: OXYCODONE/ACETAMINOPHEN (5/325) TAB PO PRN ×3 (17:57→22:39)
[2016-09-14] MEDS: TAMSULOSIN (SR) 0.4 MG CAP PO SCH (21:42)
[2016-09-15] MEDS: morphine 4 MG/ML VIAL IV PRN ×6 (00:08→22:55)
[2016-09-15] MEDS: ACCU-CHEK XX SCH (02:00)
[2016-09-15] MEDS: LEVOTHYROXINE 75 MCG TAB PO SCH (05:15)
[2016-09-15] MEDS: FUROSEMIDE 20 MG INJ IV SCH ×2 (05:15→17:57)
[2016-09-15] MEDS: METOLAZONE 5 MG TAB PO SCH ×2 (05:15→17:56)
[2016-09-15 07:16] LABS: ADD SCAN DIFF NO
[2016-09-15 07:25] LABS: BASOPHILS % 0.6 % (0.0-2.0); EOSINOPHILS # 0.2 10^3/ul (0.0-0.5); EOSINOPHILS % 2.8 % (0.0-7.0); HEMOGLOBIN 10.1 g/dl (14.0-18.0); LYMPHOCYTES # 1.1 10^3/ul (0.8-2.9); LYMPHOCYTES % 16.8 % (15.0-51.0); MEAN CORPUSCULAR HEMOGLOBIN 30.3 pg (29.0-33.0); MEAN CORPUSCULAR HGB CONC 32.6 g/dl (32.0-37.0); MEAN CORPUSCULAR VOLUME 93.1 fl (82.0-101.0); MEAN PLATELET VOLUME 11.1 fl (7.4-10.4); MONOCYTE # 0.5 10^3/ul (0.3-0.9); MONOCYTES % 7.5 % (0.0-11.0); NEUTROPHIL # 4.6 10^3/ul (1.6-7.5); PLATELET COUNT 121 10^3/UL (140-415); RED BLOOD COUNT 3.33 10^6/ul (4.70-6.10); RED CELL DISTRIBUTION WIDTH 16.3 % (11.5-14.5); WHITE BLOOD COUNT 6.4 10^3/ul (4.8-10.8)
[2016-09-15 07:29] LABS: POTASSIUM 3.8 mmol/L (3.5-5.1)
[2016-09-15 07:32] LABS: CREATININE 2.01 mg/dl (0.61-1.24)
[2016-09-15 07:33] LABS: CALCIUM 7.8 mg/dl (8.4-10.2)
[2016-09-15] MEDS: INSULIN ASPART [NOVOLOG] 3 ML PEN SC SCH ×4 (08:00→21:07)
[2016-09-15 08:07] VITALS: BP 161/92; RESP 18
[2016-09-15] MEDS: HEPARIN 5,000 UNIT/0.5 ML VIAL SC SCH ×2 (08:42→20:08)
[2016-09-15] MEDS: SEVELAMER 800 MG TAB PO SCH ×3 (08:42→17:56)
[2016-09-15] MEDS: L ACIDOPHIL/B LACTIS/B LONGUM CAPSULE PO SCH ×2 (08:42→22:28)
[2016-09-15] MEDS: FAMOTIDINE 20 MG TAB PO SCH (08:42)
[2016-09-15] MEDS: VANCOMYCIN BOTH EYES SCH ×4 (08:43→21:03)
[2016-09-15] MEDS: FINASTERIDE 5 MG TAB PO SCH (08:43)
[2016-09-15] MEDS: HYPROMELLOSE BOTH EYES SCH ×4 (08:43→21:03)
[2016-09-15] MEDS: GENTAMICIN 0.3% 5 ML OPH BOTH EYES SCH ×4 (08:43→21:03)
[2016-09-15] MEDS: CHOLECALCIFEROL 1,000 UNIT TAB PO SCH (08:43)
[2016-09-15] MEDS: LACTULOSE 30ML CUP PO SCH ×2 (08:44→21:03)
[2016-09-15] MEDS: ISOSORBIDE DINITRATE 20 MG TAB PO SCH ×3 (08:44→20:04)
[2016-09-15 09:30] VITALS: BP 135/72; PULSE 62
--- NOTE | 2016-09-15 14:09 | PN ---
Date/Time of Note Date/Time of Note DATE: 09/15/16 TIME: 13:50 Assessment/Plan VTE Prophylaxis VTE Prophylaxis Intervention: heparin Lines/Catheters IV Catheter Type (from Nrs): PICC Line Central line still needed: Yes Urinary Cath still in place: No Assessment/Plan Assessment/Plan 1. Acute renal failure from ATN, on HD prn, follow up with nephrology 2. DM, stable 3. Hyperkalemia. improving 4. Anemia of chronic disease. stable 5. Benign prostatic hypertrophy. Continue medical management. 6. History of diabetic retinopathy. 7. Bilateral conjunctivitis, on eye drops(vanco/genta) 8. Left temperal headache, ESR 9. DVP prophylaxis: heparin Subjective 24 Hr Interval Summary Free Text/Dictation left headache Exam/Review of Systems Vital Signs Vitals Vital Signs Date Time Temp Pulse Resp B/P Pulse Ox O2 Delivery O2 Flow Rate FiO2 09/15/16 09:30 62 135/72 09/15/16 08:07 98.6 18 97 09/15/16 08:00 Nasal Cannula 2.0 Intake and Output 09/14/16 09/14/16 09/15/16 15:00 23:00 07:00 Intake Total 1400 ml 360 ml Output Total 4300 ml 700 ml Balance -2900 ml -340 ml Exam Constitutional: alert, oriented, well developed Psych: nl mood/affect, no complaints Head: atraumatic, normocephalic Eyes: EOMI, PERRL, other ENMT: nl external ears & nose, nl lips & teeth, nl nasal mucosa & septum Neck: non-tender, supple Respiratory: clear to auscultation, normal air movement, No congested cough, No crackles/rales, No diminished breath sounds, No intercostal retraction, No labored breathing, No other, No respirations, No tactile fremitus, No wheezing Cardiovascular: nl pulses, regular rate and rhythm, No S3, No S4, No bruits, No diastolic murmur, No edema, No gallop, No irregular rhythm, No jugular venous distention (JVD), No murmurs/extra sounds, No other, No rub, No systolic murmur Gastrointestinal: nl liver, spleen, non-tender, soft, No ascites, No bowel sounds, No distended, No firm, No hepatomegaly, No mass , No other, No rebound or guarding, No splenomegaly, No surgical scars, No tender Musculoskeletal: nl extremities to inspection Extremities: normal pulses, No calf tenderness, No clubbing, No cyanosis, No edema, No other, No palpable cord, No pitting pedal edema, No tenderness Neurological: TEST OPERATOR II-XII intact, nl mental status, nl speech, nl strength Results Result Diagram: 09/15/16 0540 09/15/16 0540 Results 24 hrs Laboratory Tests Test 09/14/16 14:38 09/14/16 17:37 09/14/16 21:52 09/15/16 05:40 Sodium Level 133 L 137 Potassium Level 5.3 H 3.8 Chloride Level 102 98 Carbon Dioxide Level 30 30 Anion Gap 6 L 13 # Blood Urea Nitrogen 40 H 28 #H Creatinine 2.73 H 2.01 H Glucose Level 90 95 Calcium Level 8.0 L 7.8 L Bedside Glucose 112 113 White Blood Count 6.4 # Red Blood Count 3.33 L Hemoglobin 10.1 L Hematocrit 31.0 L Mean Corpuscular Volume 93.1 Mean Corpuscular Hemoglobin 30.3 Mean Corpuscular Hemoglobin Concent 32.6 Red Cell Distribution Width 16.3 H Platelet Count 121 L Mean Platelet Volume 11.1 H Neutrophils % 72.0 Lymphocytes % 16.8 Monocytes % 7.5 Eosinophils % 2.8 Basophils % 0.6 Nucleated Red Blood Cells % 0.0 Neutrophils # 4.6 Lymphocytes # 1.1 Monocytes # 0.5 Eosinophils # 0.2 Basophils # 0.0 Nucleated Red Blood Cells # 0.0 Phosphorus Level 4.2 Magnesium Level 2.3 Test 09/15/16 07:59 09/15/16 12:06 Bedside Glucose 108 83 Medications Medications Current Medications Carvedilol (Coreg) 6.25 mg BID PO Last administered on 09/15/16 08:44; Admin Dose 6.25 MG; Start 09/01/16 at 23:00 Finasteride (Proscar) 5 mg DAILY PO Last administered on 09/15/16 08:43; Admin Dose 5 MG; Start 09/02/16 at 09:00 Oxycodone/ Acetaminophen (Percocet (5/ 325)) maximum total acetaminop... Q4 PRN PO PAIN LEVEL 1-5 Last administered on 09/14/16 17:57; Admin Dose 1 TAB; Start 09/01/16 at 23:00 Simethicone (Mylicon) 80 mg Q6H PRN PO DISTENSION/GAS/BLOATING; Start 09/01/16 at 23:00 Tamsulosin HCl (Flomax) 0.4 mg QHS PO Last administered on 09/14/16 21:42; Admin Dose 0.4 MG; Start 09/02/16 at 21:00 Heparin Sodium (Porcine) (Heparin (5000 Units/0.5 ml)) 5,000 unit Q12 SC Last administered on 09/15/16 08:42; Admin Dose 5,000 UNIT; Start 09/02/16 at 09:00 ; Status Future hold Morphine Sulfate (morphine) 3 mg Q4H PRN IV PAIN LEVEL 6-10 Last administered on 09/15/16 13:04; Admin Dose 3 MG; Start 09/01/16 at 23:30 Ondansetron HCl (Zofran Inj) 4 mg Q6H PRN IV NAUSEA AND/OR VOMITING Last administered on 09/11/16 10:23; Admin Dose 4 MG; Start 09/01/16 at 23:30 Diagnostic Test (Pha) (Accu-Chek) 1 ea 02 XX ; Start 09/02/16 at 02:00 Isosorbide Dinitrate (Isordil) 20 mg TID PO Last administered on 09/15/16 13: 09; Admin Dose 20 MG; Start 09/01/16 at 23:00 Miscellaneous Information 1 ea NOTE XX ; Start 09/01/16 at 23:30 Glucose (Glutose) 15 gm Q15M PRN PO DECREASED GLUCOSE; Start 09/01/16 at 23:30 Glucose (Glutose) 22.5 gm Q15M PRN PO DECREASED GLUCOSE; Start 09/01/16 at 23: 30 Dextrose (D50w Syringe) 25 ml Q15M PRN IV DECREASED GLUCOSE; Start 09/01/16 at 23:30 Dextrose (D50w Syringe) 50 ml Q15M PRN IV DECREASED GLUCOSE; Start 09/01/16 at 23:30 Glucagon (Glucagen) 1 mg Q15M PRN IM DECREASED GLUCOSE; Start 09/01/16 at 23:30 Glucose (Glutose) 15 gm Q15M PRN BUCCAL DECREASED GLUCOSE; Start 09/01/16 at 23 :30 Lactulose (Enulose) 30 gm BID PO Last administered on 09/15/16 08:44; Admin Dose 30 GM; Start 09/02/16 at 21:00 Famotidine (Pepcid) 20 mg DAILY PO Last administered on 09/15/16 08:42; Admin Dose 20 MG; Start 09/04/16 at 09:00 Levothyroxine Sodium (Synthroid) 75 mcg DAILY@06 PO Last administered on 05:15; Admin Dose 75 MCG; Start 09/08/16 at 06:00 Cholecalciferol (Vitamin D) 1,000 unit DAILY PO Last administered on 09/15/16 08:43; Admin Dose 1,000 UNIT; Start 09/07/16 at 12:30 Lactobacillus Acidophilus (Florajen3 Capsule) 1 each BID PO Last administered on 09/15/16 08:42; Admin Dose 1 EACH; Start 09/09/16 at 21:00 Lorazepam (Ativan) 1 mg Q6H PRN IV Anxiety Last administered on 09/11/16 10:23 ; Admin Dose 1 MG; Start 09/10/16 at 11:30 Gentamicin Sulfate (Gentamicin 0.3% Oph Drop) 1 drop QID BOTH EYES Last administered on 09/15/16 12:36; Admin Dose 1 DROP; Start 09/12/16 at 17:00 Vancomycin HCl (Vancomycin/ Hypromellose Oph) 1 drop QID BOTH EYES Last administered on 09/15/16 12:38; Admin Dose 1 DROP; Start 09/12/16 at 17:00 BETTIE PLASENCIA MD Sep 15, 2016 14:02
--- NOTE | 2016-09-15 19:41 | CONS ---
Date/Time of Note Date/Time of Note DATE: 09/15/16 TIME: 19:38 Assessment/Plan Assessment/Plan Chief Complaint/Hosp Course ID PROGRESS NOTE CURRENT ABX=>Vanco Opth Gtt + GENT Opth Gtt 24H INTERVAL SUMMARY * Clincally stable -- no fevers, WBC 6.5, reportedly had MCNEAL today w/ESR on order by hospitalist r/o TA * s/p HD today -- New PermCath 09/09/16 * Hx of DM retinopathy w/bilateral blepharitis/conjunctivitis w/eye drainage = on ABX gtts OU * PHYSICAL EXAMINATION: GENERAL:VSS, NAD HEENT: Eyes closed w/mild eyelid erythema/puffy edema, no crust, no drainage seen NECK: Supple, trachea midline. CHEST: Rise symmetrical, without dyspnea on observation HEART: Pulse RRR ABDOMEN: soft EXTREMITIES: Warm ID ASSESSMENT 56 yo overweight M w/PMHx ESRD-HD admit with: 1. R conjunctivitis =>mild eyelid erythema/puffy edema, no crust, no drainage seen * EYE CULTURE Final Organism 1 VANCO RESISTANT ENTEROCOCCUS Organism 2 COAGULASE NEGATIVE STAPH Organism 3 CORYNEBACTER JEIKEIUM (GRP JK) 2. S/p urinary tract infection. URINE CULTURE Final Organism 1 MIGUELITO GLABRATA COLONY COUNT >100,000 CFU/ml Organism 2 ENTEROBACTER AEROGENES COLONY COUNT 10,000 - 20,000 CFU/ml 3. 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 Diabetes. 5. Hypertension. 6. History of left otomastoiditis. 7. ESRD (-)MRSA Nares -> 08/06/16 INVASIVES: PIV, PermCath Left 09/09/16 ABX ALLERGY: KNDA CURRENT ABX: =>Vanco Opth Gtt + GENT Opth Gtt ID RECOMMENDATIONS 1. New PermCath in place may DC home when cleared by primary provider off systemic ABX 2. Continue current ABX eye Rx until resolution of acute conjunctivitis/ blepharitis =>Vanco Opth Gtt + GENT Opth Gtt 3. f/u on labs tomorrow, ESR on order for new onset temporal MCNEAL by hospitalist . . . Problems: Consultation Date/Type/Reason Admit Date/Time Sep 01, 2016 at 17:29 Type of Consultation: ID Exam/Review of Systems Vital Signs Vitals Vital Signs Date Time Temp Pulse Resp B/P Pulse Ox O2 Delivery O2 Flow Rate FiO2 09/15/16 09:30 62 135/72 09/15/16 08:07 98.6 18 97 09/15/16 08:00 Nasal Cannula 2.0 Intake and Output 09/14/16 09/14/16 09/15/16 15:00 23:00 07:00 Intake Total 1400 ml 360 ml Output Total 4300 ml 700 ml Balance -2900 ml -340 ml Results Result Diagram: 09/15/16 0540 09/15/16 0540 Results 24 hrs Laboratory Tests Test 09/14/16 21:52 09/15/16 05:40 09/15/16 07:59 09/15/16 12:06 Bedside Glucose 113 108 83 White Blood Count 6.4 # Red Blood Count 3.33 L Hemoglobin 10.1 L Hematocrit 31.0 L Mean Corpuscular Volume 93.1 Mean Corpuscular Hemoglobin 30.3 Mean Corpuscular Hemoglobin Concent 32.6 Red Cell Distribution Width 16.3 H Platelet Count 121 L Mean Platelet Volume 11.1 H Neutrophils % 72.0 Lymphocytes % 16.8 Monocytes % 7.5 Eosinophils % 2.8 Basophils % 0.6 Nucleated Red Blood Cells % 0.0 Neutrophils # 4.6 Lymphocytes # 1.1 Monocytes # 0.5 Eosinophils # 0.2 Basophils # 0.0 Nucleated Red Blood Cells # 0.0 Sodium Level 137 Potassium Level 3.8 Chloride Level 98 Carbon Dioxide Level 30 Anion Gap 13 # Blood Urea Nitrogen 28 #H Creatinine 2.01 H Glucose Level 95 Calcium Level 7.8 L Phosphorus Level 4.2 Magnesium Level 2.3 Test 09/15/16 17:53 Bedside Glucose 149 Medications Medications Current Medications Carvedilol (Coreg) 6.25 mg BID PO Last administered on 09/15/16 08:44; Admin Dose 6.25 MG; Start 09/01/16 at 23:00 Finasteride (Proscar) 5 mg DAILY PO Last administered on 09/15/16 08:43; Admin Dose 5 MG; Start 09/02/16 at 09:00 Oxycodone/ Acetaminophen (Percocet (5/ 325)) maximum total acetaminop... Q4 PRN PO PAIN LEVEL 1-5 Last administered on 09/14/16 17:57; Admin Dose 1 TAB; Start 09/01/16 at 23:00 Simethicone (Mylicon) 80 mg Q6H PRN PO DISTENSION/GAS/BLOATING Last administered on 09/15/16 18:52; Admin Dose 80 MG; Start 09/01/16 at 23:00 Tamsulosin HCl (Flomax) 0.4 mg QHS PO Last administered on 09/14/16 21:42; Admin Dose 0.4 MG; Start 09/02/16 at 21:00 Heparin Sodium (Porcine) (Heparin (5000 Units/0.5 ml)) 5,000 unit Q12 SC Last administered on 09/15/16 08:42; Admin Dose 5,000 UNIT; Start 09/02/16 at 09:00 ; Status Future hold Morphine Sulfate (morphine) 3 mg Q4H PRN IV PAIN LEVEL 6-10 Last administered on 09/15/16 18:52; Admin Dose 3 MG; Start 09/01/16 at 23:30 Ondansetron HCl (Zofran Inj) 4 mg Q6H PRN IV NAUSEA AND/OR VOMITING Last administered on 09/11/16 10:23; Admin Dose 4 MG; Start 09/01/16 at 23:30 Diagnostic Test (Pha) (Accu-Chek) 1 ea 02 XX ; Start 09/02/16 at 02:00 Isosorbide Dinitrate (Isordil) 20 mg TID PO Last administered on 09/15/16 13: 09; Admin Dose 20 MG; Start 09/01/16 at 23:00 Miscellaneous Information 1 ea NOTE XX ; Start 09/01/16 at 23:30 Glucose (Glutose) 15 gm Q15M PRN PO DECREASED GLUCOSE; Start 09/01/16 at 23:30 Glucose (Glutose) 22.5 gm Q15M PRN PO DECREASED GLUCOSE; Start 09/01/16 at 23: 30 Dextrose (D50w Syringe) 25 ml Q15M PRN IV DECREASED GLUCOSE; Start 09/01/16 at 23:30 Dextrose (D50w Syringe) 50 ml Q15M PRN IV DECREASED GLUCOSE; Start 09/01/16 at 23:30 Glucagon (Glucagen) 1 mg Q15M PRN IM DECREASED GLUCOSE; Start 09/01/16 at 23:30 Glucose (Glutose) 15 gm Q15M PRN BUCCAL DECREASED GLUCOSE; Start 09/01/16 at 23 :30 Lactulose (Enulose) 30 gm BID PO Last administered on 09/15/16 08:44; Admin Dose 30 GM; Start 09/02/16 at 21:00 Famotidine (Pepcid) 20 mg DAILY PO Last administered on 09/15/16 08:42; Admin Dose 20 MG; Start 09/04/16 at 09:00 Levothyroxine Sodium (Synthroid) 75 mcg DAILY@06 PO Last administered on 05:15; Admin Dose 75 MCG; Start 09/08/16 at 06:00 Cholecalciferol (Vitamin D) 1,000 unit DAILY PO Last administered on 09/15/16 08:43; Admin Dose 1,000 UNIT; Start 09/07/16 at 12:30 Lactobacillus Acidophilus (Florajen3 Capsule) 1 each BID PO Last administered on 09/15/16 08:42; Admin Dose 1 EACH; Start 09/09/16 at 21:00 Lorazepam (Ativan) 1 mg Q6H PRN IV Anxiety Last administered on 09/11/16 10:23 ; Admin Dose 1 MG; Start 09/10/16 at 11:30 Gentamicin Sulfate (Gentamicin 0.3% Oph Drop) 1 drop QID BOTH EYES Last administered on 09/15/16 17:58; Admin Dose 1 DROP; Start 09/12/16 at 17:00 Vancomycin HCl (Vancomycin/ Hypromellose Oph) 1 drop QID BOTH EYES Last administered on 09/15/16 17:57; Admin Dose 1 DROP; Start 09/12/16 at 17:00 JAMIR SERNA NP Sep 15, 2016 19:41
[2016-09-15 20:00] VITALS: BP 197/96; PULSE 65; RESP 18
[2016-09-15] MEDS: TAMSULOSIN (SR) 0.4 MG CAP PO SCH (20:04)
[2016-09-15 21:00] VITALS: BP 178/96
[2016-09-15 22:30] VITALS: BP 166/90
[2016-09-16] VITALS: BP 148/82
[2016-09-16] MEDS: ACCU-CHEK XX SCH (02:00)
[2016-09-16] MEDS: morphine 4 MG/ML VIAL IV PRN ×4 (02:59→20:25)
[2016-09-16] MEDS: LEVOTHYROXINE 75 MCG TAB PO SCH (05:40)
[2016-09-16] MEDS: METOLAZONE 5 MG TAB PO SCH ×2 (05:44→17:49)
[2016-09-16] MEDS: FUROSEMIDE 20 MG INJ IV SCH (05:45)
[2016-09-16 05:51] LABS: POTASSIUM 3.9 mmol/L (3.5-5.1)
[2016-09-16 05:53] LABS: CREATININE 2.14 mg/dl (0.61-1.24)
[2016-09-16 05:54] LABS: CALCIUM 7.9 mg/dl (8.4-10.2); MAGNESIUM 2.3 mg/dl (1.7-2.5); PHOSPHORUS 4.3 mg/dl (2.5-4.9)
--- NOTE | 2016-09-16 06:42 | PN ---
DATE: 09/15/2016 SUBJECTIVE: The patient had hemodialysis yesterday due to hyperkalemia. The patient tolerated it w ell. ____ with diuretic therapy. ____ noted. OBJECTIVE: VITAL SIGNS: Blood pressure was 164/92, respiration ____, temperature 98.6. I'S AND O'S: The patient's had 1700 in, 3 L out. HEENT: Head is normocephalic. NECK: Supple. HEART: Regular rate. LUNGS: Show diminished breath sounds at the base. ABDOMEN: Soft, nontender to palpation. No rebound or guarding. EXTREMITIES: Negative for clubbing, cyanosis. Positive edema. DERMATOLOGIC: No rashes. MUSCULOSKELETAL: No joint effusions. NEUROLOGIC: No change in exam. MEDICATIONS: The patient's medications have been reviewed. LABORATORY DATA: Shows a sodium 136, potassium 3.8, chloride 98, BUN 28, creatinine 2.01. White co unt 3.4, hemoglobin 10.1, hematocrit 31.0, platelet count is 121. ASSESSMENT AND PLAN: 1. Nonoliguric acute kidney injury ____ chronic kidney disease stage IV with previous baseline crea tinine ____ mg/dL. Etiology of acute kidney injury is secondary to acute tubular necrosis. The pat ient was initiated on hemodialysis. The patient, however, appears to have had some ____ appears to be returning back to her previous baseline. At this point, will hold dialysis ____ will continue di uretic regimen, and monitor renal function closely. 2. Congestive heart failure, volume overload. Continue diuretic therapy. The patient remains volu me overloaded. 3. Hypertension. Continue current blood pressure regimen. 4. Anemia of chronic disease. Continue to monitor H and H levels. Continue Epogen. 5. Diabetes. Continue Accu-Cheks and insulin sliding scale. 6. BPH. Continue current medical management. 7. History of diabetic retinopathy. 8. Right conjunctivitis. Continue current medical management. Dictated By: NAE SINHA/ERICKA Conf#: [id number] DID#: [id number]
[2016-09-16 07:46] VITALS: BP 165/87; RESP 18
[2016-09-16] MEDS: INSULIN ASPART [NOVOLOG] 3 ML PEN SC SCH ×4 (08:00→20:38)
[2016-09-16] MEDS: ISOSORBIDE DINITRATE 20 MG TAB PO SCH ×3 (09:00→20:25)
[2016-09-16] MEDS: LACTULOSE 30ML CUP PO SCH (09:00)
[2016-09-16] MEDS: SEVELAMER 800 MG TAB PO SCH ×3 (09:22→17:48)
[2016-09-16] MEDS: GENTAMICIN 0.3% 5 ML OPH BOTH EYES SCH ×4 (09:23→20:24)
[2016-09-16] MEDS: HYPROMELLOSE BOTH EYES SCH ×4 (09:23→20:25)
[2016-09-16] MEDS: VANCOMYCIN BOTH EYES SCH ×4 (09:23→20:25)
[2016-09-16] MEDS: CHOLECALCIFEROL 1,000 UNIT TAB PO SCH (09:28)
[2016-09-16] MEDS: FAMOTIDINE 20 MG TAB PO SCH (09:28)
[2016-09-16] MEDS: FINASTERIDE 5 MG TAB PO SCH (09:28)
[2016-09-16] MEDS: L ACIDOPHIL/B LACTIS/B LONGUM CAPSULE PO SCH ×2 (09:28→20:24)
[2016-09-16] MEDS: HEPARIN 5,000 UNIT/0.5 ML VIAL SC SCH ×2 (09:30→20:26)
[2016-09-16] MEDS ORDERED: NIFEdipine (XL) 30 MG TAB PO SCH (11:00)
[2016-09-16] MEDS ORDERED: LACTULOSE 30ML CUP PO PRN (11:30)
--- NOTE | 2016-09-16 12:12 | PN ---
DATE: 09/16/2016 SUBJECTIVE: The patient is stable, no acute events overnight. No fevers, chills, nausea or vomitin g. OBJECTIVE: VITAL SIGNS: Blood pressure 165/87, respirations 18, pulse 50, temperature 98.3. HEENT: Head is normocephalic. NECK: Supple. HEART: Regular. LUNGS: Show diminished breath sounds at the bases. ABDOMEN: Soft, nontender to palpation. No rebound or guarding. EXTREMITIES: Negative for clubbing, cyanosis, +1 edema. DERMATOLOGIC: No rashes. MUSCULOSKELETAL: No joint effusions. NEUROLOGIC: No change in exam. MEDICATIONS: The patient's medications have been reviewed. LABORATORY DATA: Shows a sodium 137, potassium 3.9, chloride 97, BUN 34, creatinine 2.14. White co unt 6.4, hemoglobin 10.1, hematocrit 31.0, platelet count is 121. ASSESSMENT AND PLAN: 1. Nonoliguric acute kidney injury on top of chronic kidney disease stage IV with a previous baseli ne creatinine of 3 mg/dL. Etiology of acute kidney injury is secondary to acute tubular necrosis. The patient was initiated on hemodialysis; however, the patient appears to have renal recovery and r enal function is returning back to baseline. At this point, will hold hemodialysis. If the patient 's renal function remains stable for another 24 hours, we will discontinue PermCath. 2. Congestive heart failure, volume overload. Continue current medical management. We will contin ue Lasix 60 mg b.i.d., metolazone 5 mg b.i.d. Monitor electrolytes and renal function closely. 3. Hypertension. Blood pressure elevated. We will add Procardia. Continue Coreg and Isordil. 4. Anemia of chronic disease. Monitor hemoglobin and hematocrit levels. Continue Epogen. 5. Diabetes, continue Accu-Cheks and insulin sliding scale. 6. Benign prostatic hypertrophy. Continue medical management. 7. History of retinopathy. 8. Right eye conjunctivitis, clinically improving. Continue to monitor. Dictated By: NAE SINHA/ERICKA Conf#: [id number] DID#: [id number]
--- NOTE | 2016-09-16 14:24 | PN ---
Date/Time of Note Date/Time of Note DATE: 09/16/16 TIME: 14:19 Assessment/Plan VTE Prophylaxis VTE Prophylaxis Intervention: heparin Lines/Catheters IV Catheter Type (from Nrs): PICC Line Central line still needed: Yes Urinary Cath still in place: No Assessment/Plan Assessment/Plan 1. Acute renal failure from ATN, improved with stable Cr, follow up with nephrology 2. DM, stable 3. Hyperkalemia. improving 4. Anemia of chronic disease. stable 5. Benign prostatic hypertrophy. Continue medical management. 6. History of diabetic retinopathy. 7. Bilateral conjunctivitis, on eye drops(vanco/genta), add zyvox today 8. DVP prophylaxis: heparin Subjective 24 Hr Interval Summary Free Text/Dictation afebrile. Exam/Review of Systems Vital Signs Vitals Vital Signs Date Time Temp Pulse Resp B/P Pulse Ox O2 Delivery O2 Flow Rate FiO2 09/16/16 08:00 Nasal Cannula 2.0 09/16/16 07:46 98.3 59 18 165/87 96 Intake and Output 09/15/16 09/15/16 09/16/16 15:00 23:00 07:00 Intake Total 660 ml 440 ml Output Total 1400 ml 650 ml Balance -740 ml -210 ml Exam Constitutional: alert, oriented, well developed Psych: nl mood/affect, no complaints Head: atraumatic, normocephalic Eyes: PERRL, other (less redness on both eyes) ENMT: nl external ears & nose, nl lips & teeth, nl nasal mucosa & septum Neck: non-tender, supple Respiratory: clear to auscultation, normal air movement, No congested cough, No crackles/rales, No diminished breath sounds, No intercostal retraction, No labored breathing, No other, No respirations, No tactile fremitus, No wheezing Cardiovascular: nl pulses, regular rate and rhythm, No S3, No S4, No bruits, No diastolic murmur, No edema, No gallop, No irregular rhythm, No jugular venous distention (JVD), No murmurs/extra sounds, No other, No rub, No systolic murmur Gastrointestinal: nl liver, spleen, non-tender, soft, No ascites, No bowel sounds, No distended, No firm, No hepatomegaly, No mass , No other, No rebound or guarding, No splenomegaly, No surgical scars, No tender Musculoskeletal: nl extremities to inspection Extremities: normal pulses, No calf tenderness, No clubbing, No cyanosis, No edema, No other, No palpable cord, No pitting pedal edema, No tenderness Neurological: 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 II-XII intact, nl mental status, nl speech, nl strength Skin: nl turgor Lymph: nl lymph nodes Results Result Diagram: 09/15/16 0540 09/16/16 0445 Results 24 hrs Laboratory Tests Test 09/15/16 17:53 09/15/16 21:05 09/16/16 02:26 09/16/16 04:45 Bedside Glucose 149 194 135 Erythrocyte Sedimentation Rate 43 H Sodium Level 137 Potassium Level 3.9 Chloride Level 97 Carbon Dioxide Level 30 Anion Gap 14 Blood Urea Nitrogen 34 H Creatinine 2.14 H Glucose Level 116 Calcium Level 7.9 L Phosphorus Level 4.3 Magnesium Level 2.3 Test 09/16/16 07:58 09/16/16 11:25 Bedside Glucose 98 108 Medications Medications Current Medications Finasteride (Proscar) 5 mg DAILY PO Last administered on 09/16/16 09:28; Admin Dose 5 MG; Start 09/02/16 at 09:00 Oxycodone/ Acetaminophen (Percocet (5/ 325)) maximum total acetaminop... Q4 PRN PO PAIN LEVEL 1-5 Last administered on 09/14/16 17:57; Admin Dose 1 TAB; Start 09/01/16 at 23:00 Simethicone (Mylicon) 80 mg Q6H PRN PO DISTENSION/GAS/BLOATING Last administered on 09/15/16 18:52; Admin Dose 80 MG; Start 09/01/16 at 23:00 Tamsulosin HCl (Flomax) 0.4 mg QHS PO Last administered on 09/15/16 20:04; Admin Dose 0.4 MG; Start 09/02/16 at 21:00 Heparin Sodium (Porcine) (Heparin (5000 Units/0.5 ml)) 5,000 unit Q12 SC Last administered on 09/16/16 09:30; Admin Dose 5,000 UNIT; Start 09/02/16 at 09:00 ; Status Future hold Morphine Sulfate (morphine) 3 mg Q4H PRN IV PAIN LEVEL 6-10 Last administered on 09/16/16 08:01; Admin Dose 3 MG; Start 09/01/16 at 23:30 Ondansetron HCl (Zofran Inj) 4 mg Q6H PRN IV NAUSEA AND/OR VOMITING Last administered on 09/11/16 10:23; Admin Dose 4 MG; Start 09/01/16 at 23:30 Diagnostic Test (Pha) (Accu-Chek) 1 ea 02 XX ; Start 09/02/16 at 02:00 Isosorbide Dinitrate (Isordil) 20 mg TID PO Last administered on 09/15/16 20: 04; Admin Dose 20 MG; Start 09/01/16 at 23:00 Miscellaneous Information 1 ea NOTE XX ; Start 09/01/16 at 23:30 Glucose (Glutose) 15 gm Q15M PRN PO DECREASED GLUCOSE; Start 09/01/16 at 23:30 Glucose (Glutose) 22.5 gm Q15M PRN PO DECREASED GLUCOSE; Start 09/01/16 at 23: 30 Dextrose (D50w Syringe) 25 ml Q15M PRN IV DECREASED GLUCOSE; Start 09/01/16 at 23:30 Dextrose (D50w Syringe) 50 ml Q15M PRN IV DECREASED GLUCOSE; Start 09/01/16 at 23:30 Glucagon (Glucagen) 1 mg Q15M PRN IM DECREASED GLUCOSE; Start 09/01/16 at 23:30 Glucose (Glutose) 15 gm Q15M PRN BUCCAL DECREASED GLUCOSE; Start 09/01/16 at 23 :30 Famotidine (Pepcid) 20 mg DAILY PO Last administered on 09/16/16 09:28; Admin Dose 20 MG; Start 09/04/16 at 09:00 Levothyroxine Sodium (Synthroid) 75 mcg DAILY@06 PO Last administered on 05:40; Admin Dose 75 MCG; Start 09/08/16 at 06:00 Cholecalciferol (Vitamin D) 1,000 unit DAILY PO Last administered on 09/16/16 09:28; Admin Dose 1,000 UNIT; Start 09/07/16 at 12:30 Lactobacillus Acidophilus (Florajen3 Capsule) 1 each BID PO Last administered on 09/16/16 09:28; Admin Dose 1 EACH; Start 09/09/16 at 21:00 Lorazepam (Ativan) 1 mg Q6H PRN IV Anxiety Last administered on 09/11/16 10:23 ; Admin Dose 1 MG; Start 09/10/16 at 11:30 Gentamicin Sulfate (Gentamicin 0.3% Oph Drop) 1 drop QID BOTH EYES Last administered on 09/16/16 12:33; Admin Dose 1 DROP; Start 09/12/16 at 17:00 Vancomycin HCl (Vancomycin/ Hypromellose Oph) 1 drop QID BOTH EYES Last administered on 09/16/16 12:34; Admin Dose 1 DROP; Start 09/12/16 at 17:00 Lactulose (Enulose) 30 gm BID PRN PO CONSTIPATION; Start 09/16/16 at 11:30 Nifedipine (Procardia Xl) 60 mg DAILY PO ; Start 09/17/16 at 09:00 Nifedipine (Procardia Xl) 30 mg ONCE ONCE PO ; Start 09/16/16 at 14:30; Stop at 14:31 BETTIE PLASENCIA MD Sep 16, 2016 14:24
--- NOTE | 2016-09-16 14:28 | CONS ---
Date/Time of Note Date/Time of Note DATE: 09/16/16 TIME: 14:16 Assessment/Plan Assessment/Plan Chief Complaint/Hosp Course ID PROGRESS NOTE CURRENT ABX=>Vanco Opth Gtt + GENT Opth Gtt 24H INTERVAL SUMMARY * Lethargic, awakens, no c/o -- ESR 43, WBC normalized * HD yesterday * Hx of DM retinopathy w/bilateral blepharitis/conjunctivitis w/eye drainage = on ABX gtts OU == Still with blepharitis crust * PHYSICAL EXAMINATION: GENERAL:VSS, NAD HEENT: Eyes closed w/mild eyelid erythema/puffy edema, no crust, no drainage seen NECK: Supple, trachea midline. CHEST: Rise symmetrical, without dyspnea on observation HEART: Pulse RRR ABDOMEN: soft EXTREMITIES: Warm ID ASSESSMENT 56 yo overweight M w/PMHx ESRD-HD admit with: 1. R conjunctivitis =>mild eyelid erythema/puffy edema, no crust, no drainage seen * EYE CULTURE Final Organism 1 VANCO RESISTANT ENTEROCOCCUS Organism 2 COAGULASE NEGATIVE STAPH Organism 3 CORYNEBACTER JEIKEIUM (GRP JK) 2. S/p urinary tract infection. URINE CULTURE Final Organism 1 MIGUELITO GLABRATA COLONY COUNT >100,000 CFU/ml Organism 2 ENTEROBACTER AEROGENES COLONY COUNT 10,000 - 20,000 CFU/ml 3. 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 Diabetes. 5. Hypertension. 6. History of left otomastoiditis. 7. ESRD (-)MRSA Nares -> 08/06/16 INVASIVES: PIV, PermCath Left 09/09/16 ABX ALLERGY: KNDA CURRENT ABX: =>Vanco Opth Gtt + GENT Opth Gtt ID RECOMMENDATIONS 1. New PermCath in place may DC home when cleared by primary provider off systemic ABX 2. Continue current ABX eye Rx until resolution of acute conjunctivitis/ blepharitis =>Vanco Opth Gtt + GENT Opth Gtt 3. Added Zyvox IV short course for synergy w/Gent opth gtt for VRE 4. Q6 H eye warm compress w/baby shampoo sterile gauze warm eyelash removal of blepharitis crust . . . . Problems: Consultation Date/Type/Reason Admit Date/Time Sep 01, 2016 at 17:29 Type of Consultation: ID Exam/Review of Systems Vital Signs Vitals Vital Signs Date Time Temp Pulse Resp B/P Pulse Ox O2 Delivery O2 Flow Rate FiO2 09/16/16 08:00 Nasal Cannula 2.0 09/16/16 07:46 98.3 59 18 165/87 96 Intake and Output 09/15/16 09/15/16 09/16/16 15:00 23:00 07:00 Intake Total 660 ml 440 ml Output Total 1400 ml 650 ml Balance -740 ml -210 ml Results Result Diagram: 09/15/16 0540 09/16/16 0445 Results 24 hrs Laboratory Tests Test 09/15/16 17:53 09/15/16 21:05 09/16/16 02:26 09/16/16 04:45 Bedside Glucose 149 194 135 Erythrocyte Sedimentation Rate 43 H Sodium Level 137 Potassium Level 3.9 Chloride Level 97 Carbon Dioxide Level 30 Anion Gap 14 Blood Urea Nitrogen 34 H Creatinine 2.14 H Glucose Level 116 Calcium Level 7.9 L Phosphorus Level 4.3 Magnesium Level 2.3 Test 09/16/16 07:58 09/16/16 11:25 Bedside Glucose 98 108 Medications Medications Current Medications Finasteride (Proscar) 5 mg DAILY PO Last administered on 09/16/16 09:28; Admin Dose 5 MG; Start 09/02/16 at 09:00 Oxycodone/ Acetaminophen (Percocet (5/ 325)) maximum total acetaminop... Q4 PRN PO PAIN LEVEL 1-5 Last administered on 09/14/16 17:57; Admin Dose 1 TAB; Start 09/01/16 at 23:00 Simethicone (Mylicon) 80 mg Q6H PRN PO DISTENSION/GAS/BLOATING Last administered on 09/15/16 18:52; Admin Dose 80 MG; Start 09/01/16 at 23:00 Tamsulosin HCl (Flomax) 0.4 mg QHS PO Last administered on 09/15/16 20:04; Admin Dose 0.4 MG; Start 09/02/16 at 21:00 Heparin Sodium (Porcine) (Heparin (5000 Units/0.5 ml)) 5,000 unit Q12 SC Last administered on 09/16/16 09:30; Admin Dose 5,000 UNIT; Start 09/02/16 at 09:00 ; Status Future hold Morphine Sulfate (morphine) 3 mg Q4H PRN IV PAIN LEVEL 6-10 Last administered on 09/16/16 08:01; Admin Dose 3 MG; Start 09/01/16 at 23:30 Ondansetron HCl (Zofran Inj) 4 mg Q6H PRN IV NAUSEA AND/OR VOMITING Last administered on 09/11/16 10:23; Admin Dose 4 MG; Start 09/01/16 at 23:30 Diagnostic Test (Pha) (Accu-Chek) 1 ea 02 XX ; Start 09/02/16 at 02:00 Isosorbide Dinitrate (Isordil) 20 mg TID PO Last administered on 09/15/16 20: 04; Admin Dose 20 MG; Start 09/01/16 at 23:00 Miscellaneous Information 1 ea NOTE XX ; Start 09/01/16 at 23:30 Glucose (Glutose) 15 gm Q15M PRN PO DECREASED GLUCOSE; Start 09/01/16 at 23:30 Glucose (Glutose) 22.5 gm Q15M PRN PO DECREASED GLUCOSE; Start 09/01/16 at 23: 30 Dextrose (D50w Syringe) 25 ml Q15M PRN IV DECREASED GLUCOSE; Start 09/01/16 at 23:30 Dextrose (D50w Syringe) 50 ml Q15M PRN IV DECREASED GLUCOSE; Start 09/01/16 at 23:30 Glucagon (Glucagen) 1 mg Q15M PRN IM DECREASED GLUCOSE; Start 09/01/16 at 23:30 Glucose (Glutose) 15 gm Q15M PRN BUCCAL DECREASED GLUCOSE; Start 09/01/16 at 23 :30 Famotidine (Pepcid) 20 mg DAILY PO Last administered on 09/16/16 09:28; Admin Dose 20 MG; Start 09/04/16 at 09:00 Levothyroxine Sodium (Synthroid) 75 mcg DAILY@06 PO Last administered on 05:40; Admin Dose 75 MCG; Start 09/08/16 at 06:00 Cholecalciferol (Vitamin D) 1,000 unit DAILY PO Last administered on 09/16/16 09:28; Admin Dose 1,000 UNIT; Start 09/07/16 at 12:30 Lactobacillus Acidophilus (Florajen3 Capsule) 1 each BID PO Last administered on 09/16/16 09:28; Admin Dose 1 EACH; Start 09/09/16 at 21:00 Lorazepam (Ativan) 1 mg Q6H PRN IV Anxiety Last administered on 09/11/16 10:23 ; Admin Dose 1 MG; Start 09/10/16 at 11:30 Gentamicin Sulfate (Gentamicin 0.3% Oph Drop) 1 drop QID BOTH EYES Last administered on 09/16/16 12:33; Admin Dose 1 DROP; Start 09/12/16 at 17:00 Vancomycin HCl (Vancomycin/ Hypromellose Oph) 1 drop QID BOTH EYES Last administered on 09/16/16 12:34; Admin Dose 1 DROP; Start 09/12/16 at 17:00 Lactulose (Enulose) 30 gm BID PRN PO CONSTIPATION; Start 09/16/16 at 11:30 Nifedipine (Procardia Xl) 60 mg DAILY PO ; Start 09/17/16 at 09:00 Nifedipine (Procardia Xl) 30 mg ONCE ONCE PO ; Start 09/16/16 at 14:30; Stop at 14:31 JAMIR SERNA NP Sep 16, 2016 14:28
[2016-09-16] MEDS ORDERED: NIFEdipine (XL) 30 MG TAB PO ONE (14:30)
[2016-09-16] MEDS: LINEZOLID 600 MG/D5W (PMX) 300 ML IVPB SCH ×2 (15:05→20:23)
[2016-09-16 15:30] VITALS: BP 160/98
[2016-09-16] MEDS: FUROSEMIDE 40 MG TAB PO SCH (17:49)
[2016-09-16 19:30] VITALS: BP 131/61; RESP 16
[2016-09-16] MEDS: TAMSULOSIN (SR) 0.4 MG CAP PO SCH (20:24)
[2016-09-17] MEDS: ACCU-CHEK XX SCH (02:00)
[2016-09-17] MEDS: morphine 4 MG/ML VIAL IV PRN ×5 (02:13→21:53)
[2016-09-17] MEDS: LEVOTHYROXINE 75 MCG TAB PO SCH (05:48)
[2016-09-17] MEDS: FUROSEMIDE 40 MG TAB PO SCH ×2 (05:49→17:50)
[2016-09-17] MEDS: METOLAZONE 5 MG TAB PO SCH (05:49)
[2016-09-17 06:01] LABS: CALCIUM 7.8 mg/dl (8.4-10.2); CREATININE 2.09 mg/dl (0.61-1.24); MAGNESIUM 2.4 mg/dl (1.7-2.5); PHOSPHORUS 4.3 mg/dl (2.5-4.9); POTASSIUM 4.2 mmol/L (3.5-5.1)
[2016-09-17 07:10] VITALS: BP 120/78; RESP 16
[2016-09-17] MEDS: INSULIN ASPART [NOVOLOG] 3 ML PEN SC SCH ×4 (08:00→21:00)
[2016-09-17] MEDS: SEVELAMER 800 MG TAB PO SCH ×3 (08:05→17:49)
[2016-09-17] MEDS: HEPARIN 5,000 UNIT/0.5 ML VIAL SC SCH ×2 (09:00→21:06)
[2016-09-17] MEDS: ISOSORBIDE DINITRATE 20 MG TAB PO SCH ×3 (09:00→21:03)
[2016-09-17] MEDS: GENTAMICIN 0.3% 5 ML OPH BOTH EYES SCH ×4 (09:40→21:03)
[2016-09-17] MEDS: L ACIDOPHIL/B LACTIS/B LONGUM CAPSULE PO SCH ×2 (09:40→21:09)
[2016-09-17] MEDS: FAMOTIDINE 20 MG TAB PO SCH (09:43)
[2016-09-17] MEDS: FINASTERIDE 5 MG TAB PO SCH (09:43)
[2016-09-17] MEDS: CHOLECALCIFEROL 1,000 UNIT TAB PO SCH (09:43)
[2016-09-17] MEDS: NIFEdipine (XL) 60 MG TAB PO SCH (09:43)
[2016-09-17] MEDS: VANCOMYCIN BOTH EYES SCH ×4 (09:45→21:04)
[2016-09-17] MEDS: HYPROMELLOSE BOTH EYES SCH ×4 (09:45→21:04)
[2016-09-17] MEDS: LINEZOLID 600 MG/D5W (PMX) 300 ML IVPB SCH ×2 (09:48→21:09)
--- NOTE | 2016-09-17 11:38 | PN ---
DATE: 09/17/2016 SUBJECTIVE: The patient is stable, clinically improved. No other acute events noted. No hemoptysi s, hematemesis or hematochezia. OBJECTIVE: VITAL SIGNS: Blood pressure 120/70, respiration 16, pulse 54, temperature 97.4. HEENT: Head is normocephalic. NECK: Supple. HEART: Regular rate. LUNGS: Show diminished breath sounds at base. ABDOMEN: Soft, nontender to palpation without rebound or guarding. EXTREMITIES: Negative for clubbing, cyanosis. Positive edema. DERMATOLOGIC: No rashes. MUSCULOSKELETAL: No joint effusions. NEUROLOGIC: No change in exam. MEDICATIONS: Reviewed. LABORATORY DATA: Showed sodium 131, potassium 2.96, BUN 42, creatinine 0.09. ASSESSMENT AND PLAN: 1. Nonoliguric acute kidney injury secondary to chronic kidney disease stage IV with previous basel ine creatinine around 3 mg/dL. Etiology secondary to acute tubular necrosis. The patient was initi ated on hemodialysis due to uremic symptoms of volume overload. The patient, however, has shown sig nificant renal recovery, no longer is dialysis dependent. Plan is to have per patient's Perm-A-Cath removed. 2. Volume overload, congestive heart failure. The patient is clinically improving. We will contin ue Lasix 20 mg p.o. b.i.d. discontinue metolazone due to underlying hyponatremia. Monitor closely. 3. Hyponatremia. Etiology is multifactorial secondary to acute kidney injury causing decreased chavo e water urinary excretion in conjunction with metolazone. Will discontinue metolazone, limit free w ater intake and monitor. 4. Hypertension. Continue current medical management. 5. Anemia. Continue to monitor hemoglobin and hematocrit levels. Will give him Epogen as needed. 6. Diabetes. Continue Accu-Cheks and sliding scale. 7. Benign prostatic hypertrophy. Continue current medical management. 8. History of diabetic retinopathy. 9. Right eye conjunctivitis, clinically improving. Continue medical management. Dictated By: NAE SINHA/ERICKA Conf#: [id number] DID#: [id number]
[2016-09-17] MEDS ORDERED: LIDOCAINE 1% (MDV) 20 ML INJ ONE (14:18)
--- NOTE | 2016-09-17 17:13 | RADRPT ---
PROCEDURE: Right chest PermaCath removal CLINICAL INDICATION: 90 for further dialysis TECHNIQUE: Informed consent was obtained from the patient following careful explanation of the risks and benef its of the procedure. The patient was placed supine on the table and the left chest and existing Perma-Cath were prepped a nd draped in the usual sterile fashion. 1% lidocaine with lidocaine was utilized for local anesthesi a. Following blunt dissection of the cuff of the Perma-Cath, the catheter was removed. A sterile dressing was applied. The patient tolerated the procedure well. COMPARISON: None FINDINGS: As above IMPRESSION: Uncomplicated removal of Perma-Cath. No pneumothorax. Site of service: Inpatient. RPTAT: [facility] Physician Lise Date Time Electronically viewed and signed by Physician Lise on 09/17/2016 17:13 TABATHA
--- NOTE | 2016-09-17 17:25 | PN ---
Date/Time of Note Date/Time of Note DATE: 09/17/16 TIME: 17:24 Assessment/Plan VTE Prophylaxis VTE Prophylaxis Intervention: heparin Lines/Catheters IV Catheter Type (from Nrs): PICC Line Central line still needed: Yes Urinary Cath still in place: No Assessment/Plan Chief Complaint/Hosp Course 1. Acute renal failure from ATN, which is improving and patient no longer needs dialysis as per nephro with Perm A cath removal. 2. Hyponatremia - mild, likely secondary to contraction/diuretics. Metolazone discontinued. Follow bmp. 3. DM, stable 4. Hyperkalemia - Resolved 5. Anemia of chronic disease. stable 6. Benign prostatic hypertrophy. Continue medical management. 7. History of diabetic retinopathy. 8. Bilateral conjunctivitis, on eye drops(vanco/genta), on zyvox for synergy as per ID, warm compresses. 9. DVP prophylaxis: heparin Problems: Subjective 24 Hr Interval Summary Free Text/Dictation Patient reports improvement in eye drainage/infection. States he has some abdominal bloating. States he has had a BM. Eyes: other (improvement in discharge bilaterally) Respiratory: no complaints Cardiovascular: no complaints Gastrointestinal: other (bloating, gas) Genitourinary: no complaints Musculoskeletal: no complaints Exam/Review of Systems Vital Signs Vitals Vital Signs Date Time Temp Pulse Resp B/P Pulse Ox O2 Delivery O2 Flow Rate FiO2 09/17/16 07:10 97.4 54 16 120/78 95 09/16/16 08:00 Nasal Cannula 2.0 Intake and Output 09/16/16 09/16/16 09/17/16 15:00 23:00 07:00 Intake Total 1500 ml 430 ml Output Total 1300 ml 850 ml Balance 200 ml -420 ml Exam Constitutional: alert, oriented, well developed Head: atraumatic, normocephalic Eyes: other (erythema bilaterally, no drainage noted on exam.) ENMT: nl external ears & nose Neck: non-tender, supple Respiratory: clear to auscultation, normal air movement Cardiovascular: nl pulses, regular rate and rhythm Gastrointestinal: other (tympanic to percussion), soft, No ascites Extremities: normal pulses Neurological: nl mental status, nl speech Skin: nl turgor, No diaphoresis Results Result Diagram: 09/15/16 0540 09/17/16 0430 Results 24 hrs Laboratory Tests Test 09/16/16 17:46 09/16/16 20:35 09/17/16 02:01 09/17/16 04:30 Bedside Glucose 190 182 161 Sodium Level 131 L Potassium Level 4.2 Chloride Level 96 L Carbon Dioxide Level 31 Anion Gap 8 Blood Urea Nitrogen 42 H Creatinine 2.09 H Glucose Level 124 Calcium Level 7.8 L Phosphorus Level 4.3 Magnesium Level 2.4 Test 09/17/16 08:06 09/17/16 11:56 Bedside Glucose 112 161 Medications Medications Current Medications Finasteride (Proscar) 5 mg DAILY PO Last administered on 09/17/16 09:43; Admin Dose 5 MG; Start 09/02/16 at 09:00 Oxycodone/ Acetaminophen (Percocet (5/ 325)) maximum total acetaminop... Q4 PRN PO PAIN LEVEL 1-5 Last administered on 09/14/16 17:57; Admin Dose 1 TAB; Start 09/01/16 at 23:00 Simethicone (Mylicon) 80 mg Q6H PRN PO DISTENSION/GAS/BLOATING Last administered on 09/17/16 11:03; Admin Dose 80 MG; Start 09/01/16 at 23:00 Tamsulosin HCl (Flomax) 0.4 mg QHS PO Last administered on 09/16/16 20:24; Admin Dose 0.4 MG; Start 09/02/16 at 21:00 Heparin Sodium (Porcine) (Heparin (5000 Units/0.5 ml)) 5,000 unit Q12 SC Last administered on 09/16/16 20:26; Admin Dose 5,000 UNIT; Start 09/02/16 at 09:00 ; Status Future hold Morphine Sulfate (morphine) 3 mg Q4H PRN IV PAIN LEVEL 6-10 Last administered on 09/17/16 16:22; Admin Dose 3 MG; Start 09/01/16 at 23:30 Ondansetron HCl (Zofran Inj) 4 mg Q6H PRN IV NAUSEA AND/OR VOMITING Last administered on 09/11/16 10:23; Admin Dose 4 MG; Start 09/01/16 at 23:30 Diagnostic Test (Pha) (Accu-Chek) 1 ea 02 XX ; Start 09/02/16 at 02:00 Isosorbide Dinitrate (Isordil) 20 mg TID PO Last administered on 09/17/16 16: 22; Admin Dose 20 MG; Start 09/01/16 at 23:00 Miscellaneous Information 1 ea NOTE XX ; Start 09/01/16 at 23:30 Glucose (Glutose) 15 gm Q15M PRN PO DECREASED GLUCOSE; Start 09/01/16 at 23:30 Glucose (Glutose) 22.5 gm Q15M PRN PO DECREASED GLUCOSE; Start 09/01/16 at 23: 30 Dextrose (D50w Syringe) 25 ml Q15M PRN IV DECREASED GLUCOSE; Start 09/01/16 at 23:30 Dextrose (D50w Syringe) 50 ml Q15M PRN IV DECREASED GLUCOSE; Start 09/01/16 at 23:30 Glucagon (Glucagen) 1 mg Q15M PRN IM DECREASED GLUCOSE; Start 09/01/16 at 23:30 Glucose (Glutose) 15 gm Q15M PRN BUCCAL DECREASED GLUCOSE; Start 09/01/16 at 23 :30 Famotidine (Pepcid) 20 mg DAILY PO Last administered on 09/17/16 09:43; Admin Dose 20 MG; Start 09/04/16 at 09:00 Levothyroxine Sodium (Synthroid) 75 mcg DAILY@06 PO Last administered on 05:48; Admin Dose 75 MCG; Start 09/08/16 at 06:00 Cholecalciferol (Vitamin D) 1,000 unit DAILY PO Last administered on 09/17/16 09:43; Admin Dose 1,000 UNIT; Start 09/07/16 at 12:30 Lactobacillus Acidophilus (Florajen3 Capsule) 1 each BID PO Last administered on 09/17/16 09:40; Admin Dose 1 EACH; Start 09/09/16 at 21:00 Lorazepam (Ativan) 1 mg Q6H PRN IV Anxiety Last administered on 09/11/16 10:23 ; Admin Dose 1 MG; Start 09/10/16 at 11:30 Gentamicin Sulfate (Gentamicin 0.3% Oph Drop) 1 drop QID BOTH EYES Last administered on 09/17/16 16:22; Admin Dose 1 DROP; Start 09/12/16 at 17:00 Vancomycin HCl (Vancomycin/ Hypromellose Oph) 1 drop QID BOTH EYES Last administered on 09/17/16 16:23; Admin Dose 1 DROP; Start 09/12/16 at 17:00 Lactulose (Enulose) 30 gm BID PRN PO CONSTIPATION; Start 09/16/16 at 11:30 Nifedipine 60 mg 60 mg DAILY PO Last administered on 09/17/16 09:43; Admin Dose 60 MG; Start 09/17/16 at 09:00 Linezolid (Zyvox 600mg/D5W (Pmx)) 300 ml @ 300 mls/hr Q12 IVPB Last administered on 09/17/16 09:48; Admin Dose 300 MLS/HR; Start 09/16/16 at 14:30 EMILY GUTIERREZ Sep 17, 2016 17:25
[2016-09-17] MEDS: ONDANSETRON 4 MG INJ IV PRN (17:57)
--- NOTE | 2016-09-17 19:54 | CONS ---
Date/Time of Note Date/Time of Note DATE: 09/17/16 TIME: 19:48 Assessment/Plan Assessment/Plan Chief Complaint/Hosp Course ID PROGRESS NOTE CURRENT ABX=>Vanco Opth Gtt + GENT Opth Gtt + ZYVOX #2 24H INTERVAL SUMMARY * Bilateral eye conjunctivitis MUCH IMPROVED w/Zyvox + order for eye warm compress w/baby soap & warm water gauze was/removal of blepharitis crust * Clinically stable Lethargic, awakens, no c/o -- ESR 43, WBC normalized * HD Perma-Cath removed today * Hx of DM retinopathy w/bilateral blepharitis/conjunctivitis w/eye drainage = on ABX gtts OU == Still with blepharitis crust PHYSICAL EXAMINATION: GENERAL:VSS, NAD HEENT: Eyes closed w/mild eyelid erythema/puffy edema, no crust, no drainage seen NECK: Supple, trachea midline. CHEST: Rise symmetrical, without dyspnea on observation HEART: Pulse RRR ABDOMEN: soft EXTREMITIES: Warm ID ASSESSMENT 56 yo overweight M w/PMHx ESRD-HD admit with: 1. R conjunctivitis =>mild eyelid erythema/puffy edema, no crust, no drainage seen * EYE CULTURE Final Organism 1 VANCO RESISTANT ENTEROCOCCUS Organism 2 COAGULASE NEGATIVE STAPH Organism 3 CORYNEBACTER JEIKEIUM (GRP JK) 2. S/p urinary tract infection. URINE CULTURE Final Organism 1 MIGUELITO GLABRATA COLONY COUNT >100,000 CFU/ml Organism 2 ENTEROBACTER AEROGENES COLONY COUNT 10,000 - 20,000 CFU/ml 3. 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 Diabetes. 5. Hypertension. 6. History of left otomastoiditis. 7. ESRD (-)MRSA Nares -> 08/06/16 INVASIVES: PIV ABX ALLERGY: KNDA CURRENT ABX: =>Vanco Opth Gtt + GENT Opth Gtt + ZYVOX #2 ID RECOMMENDATIONS 1. New PermCath in place may DC home when cleared by primary provider off systemic ABX 2. Continue current ABX eye Rx until resolution of acute conjunctivitis/ blepharitis =>Vanco Opth Gtt + GENT Opth Gtt 3. Added Zyvox IV short course for synergy w/Gent opth gtt for VRE + MAY DC OFF ZYVOX 4. Q6 H eye warm compress w/baby shampoo sterile gauze warm eyelash removal of blepharitis crust => MUCH IMPROVED . . . . Problems: Consultation Date/Type/Reason Admit Date/Time Sep 01, 2016 at 17:29 Type of Consultation: ID Exam/Review of Systems Vital Signs Vitals Vital Signs Date Time Temp Pulse Resp B/P Pulse Ox O2 Delivery O2 Flow Rate FiO2 09/17/16 07:10 97.4 54 16 120/78 95 09/16/16 08:00 Nasal Cannula 2.0 Intake and Output 09/16/16 09/16/16 09/17/16 15:00 23:00 07:00 Intake Total 1500 ml 430 ml Output Total 1300 ml 850 ml Balance 200 ml -420 ml Results Result Diagram: 09/15/16 0540 09/17/16 0430 Results 24 hrs Laboratory Tests Test 09/16/16 20:35 09/17/16 02:01 09/17/16 04:30 09/17/16 08:06 Bedside Glucose 182 161 112 Sodium Level 131 L Potassium Level 4.2 Chloride Level 96 L Carbon Dioxide Level 31 Anion Gap 8 Blood Urea Nitrogen 42 H Creatinine 2.09 H Glucose Level 124 Calcium Level 7.8 L Phosphorus Level 4.3 Magnesium Level 2.4 Test 09/17/16 11:56 09/17/16 17:49 Bedside Glucose 161 175 Medications Medications Current Medications Finasteride (Proscar) 5 mg DAILY PO Last administered on 09/17/16 09:43; Admin Dose 5 MG; Start 09/02/16 at 09:00 Oxycodone/ Acetaminophen (Percocet (5/ 325)) maximum total acetaminop... Q4 PRN PO PAIN LEVEL 1-5 Last administered on 09/14/16 17:57; Admin Dose 1 TAB; Start 09/01/16 at 23:00 Simethicone (Mylicon) 80 mg Q6H PRN PO DISTENSION/GAS/BLOATING Last administered on 09/17/16 11:03; Admin Dose 80 MG; Start 09/01/16 at 23:00 Tamsulosin HCl (Flomax) 0.4 mg QHS PO Last administered on 09/16/16 20:24; Admin Dose 0.4 MG; Start 09/02/16 at 21:00 Heparin Sodium (Porcine) (Heparin (5000 Units/0.5 ml)) 5,000 unit Q12 SC Last administered on 09/16/16 20:26; Admin Dose 5,000 UNIT; Start 09/02/16 at 09:00 ; Status Future hold Morphine Sulfate (morphine) 3 mg Q4H PRN IV PAIN LEVEL 6-10 Last administered on 09/17/16 16:22; Admin Dose 3 MG; Start 09/01/16 at 23:30 Ondansetron HCl (Zofran Inj) 4 mg Q6H PRN IV NAUSEA AND/OR VOMITING Last administered on 09/17/16 17:57; Admin Dose 4 MG; Start 09/01/16 at 23:30 Diagnostic Test (Pha) (Accu-Chek) 1 ea 02 XX ; Start 09/02/16 at 02:00 Isosorbide Dinitrate (Isordil) 20 mg TID PO Last administered on 09/17/16 16: 22; Admin Dose 20 MG; Start 09/01/16 at 23:00 Miscellaneous Information 1 ea NOTE XX ; Start 09/01/16 at 23:30 Glucose (Glutose) 15 gm Q15M PRN PO DECREASED GLUCOSE; Start 09/01/16 at 23:30 Glucose (Glutose) 22.5 gm Q15M PRN PO DECREASED GLUCOSE; Start 09/01/16 at 23: 30 Dextrose (D50w Syringe) 25 ml Q15M PRN IV DECREASED GLUCOSE; Start 09/01/16 at 23:30 Dextrose (D50w Syringe) 50 ml Q15M PRN IV DECREASED GLUCOSE; Start 09/01/16 at 23:30 Glucagon (Glucagen) 1 mg Q15M PRN IM DECREASED GLUCOSE; Start 09/01/16 at 23:30 Glucose (Glutose) 15 gm Q15M PRN BUCCAL DECREASED GLUCOSE; Start 09/01/16 at 23 :30 Famotidine (Pepcid) 20 mg DAILY PO Last administered on 09/17/16 09:43; Admin Dose 20 MG; Start 09/04/16 at 09:00 Levothyroxine Sodium (Synthroid) 75 mcg DAILY@06 PO Last administered on 05:48; Admin Dose 75 MCG; Start 09/08/16 at 06:00 Cholecalciferol (Vitamin D) 1,000 unit DAILY PO Last administered on 09/17/16 09:43; Admin Dose 1,000 UNIT; Start 09/07/16 at 12:30 Lactobacillus Acidophilus (Florajen3 Capsule) 1 each BID PO Last administered on 09/17/16 09:40; Admin Dose 1 EACH; Start 09/09/16 at 21:00 Lorazepam (Ativan) 1 mg Q6H PRN IV Anxiety Last administered on 09/11/16 10:23 ; Admin Dose 1 MG; Start 09/10/16 at 11:30 Gentamicin Sulfate (Gentamicin 0.3% Oph Drop) 1 drop QID BOTH EYES Last administered on 09/17/16 17:51; Admin Dose 1 DROP; Start 09/12/16 at 17:00 Vancomycin HCl (Vancomycin/ Hypromellose Oph) 1 drop QID BOTH EYES Last administered on 09/17/16 17:51; Admin Dose 1 DROP; Start 09/12/16 at 17:00 Lactulose (Enulose) 30 gm BID PRN PO CONSTIPATION; Start 09/16/16 at 11:30 Nifedipine 60 mg 60 mg DAILY PO Last administered on 09/17/16 09:43; Admin Dose 60 MG; Start 09/17/16 at 09:00 Linezolid (Zyvox 600mg/D5W (Pmx)) 300 ml @ 300 mls/hr Q12 IVPB Last administered on 09/17/16 09:48; Admin Dose 300 MLS/HR; Start 09/16/16 at 14:30 JAMIR SERNA NP Sep 17, 2016 19:54
[2016-09-17] MEDS: TAMSULOSIN (SR) 0.4 MG CAP PO SCH (21:03)
[2016-09-17 21:23] VITALS: BP 114/69; RESP 16
[2016-09-18] VITALS (9 sets, daily range): BP systolic 126–185; BP diastolic 76–102; PULSE 57–72; RESP 16–18
[2016-09-18] MEDS: ACCU-CHEK XX SCH (02:00)
[2016-09-18 05:07] LABS: ADD SCAN DIFF NO
[2016-09-18 05:13] LABS: BASOPHILS % 0.8 % (0.0-2.0); EOSINOPHILS # 0.1 10^3/ul (0.0-0.5); EOSINOPHILS % 3.9 % (0.0-7.0); HEMATOCRIT 29.6 % (42.0-52.0); HEMOGLOBIN 9.7 g/dl (14.0-18.0); LYMPHOCYTES % 27.7 % (15.0-51.0); MEAN CORPUSCULAR HGB CONC 32.8 g/dl (32.0-37.0); MEAN CORPUSCULAR VOLUME 91.6 fl (82.0-101.0); MEAN PLATELET VOLUME 10.1 fl (7.4-10.4); MONOCYTE # 0.3 10^3/ul (0.3-0.9); NEUTROPHIL # 2.1 10^3/ul (1.6-7.5); NEUTROPHILS % 58.6 % (39.0-77.0); PLATELET COUNT 138 10^3/UL (140-415); RED BLOOD COUNT 3.23 10^6/ul (4.70-6.10); RED CELL DISTRIBUTION WIDTH 15.9 % (11.5-14.5); WHITE BLOOD COUNT 3.6 10^3/ul (4.8-10.8)
[2016-09-18 05:23] LABS: POTASSIUM 4.4 mmol/L (3.5-5.1)
[2016-09-18 05:25] LABS: CREATININE 2.33 mg/dl (0.61-1.24)
[2016-09-18 05:26] LABS: CALCIUM 7.7 mg/dl (8.4-10.2); PHOSPHORUS 4.9 mg/dl (2.5-4.9)
[2016-09-18 05:27] LABS: MAGNESIUM 2.4 mg/dl (1.7-2.5)
[2016-09-18] MEDS: LEVOTHYROXINE 75 MCG TAB PO SCH (06:13)
[2016-09-18] MEDS: FUROSEMIDE 40 MG TAB PO SCH ×2 (06:15→17:13)
[2016-09-18] MEDS: INSULIN ASPART [NOVOLOG] 3 ML PEN SC SCH ×4 (08:00→21:00)
[2016-09-18] MEDS: SEVELAMER 800 MG TAB PO SCH ×3 (08:16→17:13)
[2016-09-18] MEDS: morphine 4 MG/ML VIAL IV PRN ×3 (08:17→22:35)
[2016-09-18] MEDS: GENTAMICIN 0.3% 5 ML OPH BOTH EYES SCH ×3 (08:29→17:13)
[2016-09-18] MEDS: CHOLECALCIFEROL 1,000 UNIT TAB PO SCH (08:29)
[2016-09-18] MEDS: L ACIDOPHIL/B LACTIS/B LONGUM CAPSULE PO SCH ×2 (08:30→20:56)
[2016-09-18] MEDS: VANCOMYCIN BOTH EYES SCH ×4 (08:30→21:01)
[2016-09-18] MEDS: FAMOTIDINE 20 MG TAB PO SCH (08:30)
[2016-09-18] MEDS: ISOSORBIDE DINITRATE 20 MG TAB PO SCH ×3 (08:30→20:56)
[2016-09-18] MEDS: FINASTERIDE 5 MG TAB PO SCH (08:30)
[2016-09-18] MEDS: HYPROMELLOSE BOTH EYES SCH ×4 (08:30→21:01)
[2016-09-18] MEDS: NIFEdipine (XL) 60 MG TAB PO SCH (08:30)
[2016-09-18] MEDS: HEPARIN 5,000 UNIT/0.5 ML VIAL SC SCH ×2 (08:32→21:01)
[2016-09-18] MEDS: LINEZOLID 600 MG/D5W (PMX) 300 ML IVPB SCH ×2 (08:33→20:56)
[2016-09-18] MEDS: ONDANSETRON 4 MG INJ IV PRN (10:37)
[2016-09-18] MEDS: LORAZEPAM 2 MG INJ IV PRN (10:37)
--- NOTE | 2016-09-18 11:13 | PN ---
DATE: 09/18/2016 SUBJECTIVE: The patient is stable, no acute events overnight. No fevers, chills, nausea or vomitin g. No shortness of breath. OBJECTIVE: VITAL SIGNS: Blood pressure is 182/98, respirations 18, pulse 60, temperature 98.2. HEENT: Head is normocephalic. NECK: Supple. HEART: Regular rate. LUNGS: Show diminished breath sounds at the base. ABDOMEN: Soft, nontender to palpation without rebound or guarding. EXTREMITIES: Negative for clubbing, cyanosis. Positive edema. DERMATOLOGIC: No rashes. MUSCULOSKELETAL: No joint effusions. NEUROLOGIC: No change in exam. MEDICATIONS: Reviewed. LABORATORY DATA: Showed sodium 132, potassium ____, chloride 93, BUN 46, creatinine 2.33. White co unt 3.6, hemoglobin 9.7, hematocrit 29.7, platelet count is 138. ASSESSMENT AND PLAN: 1. Nonoliguric acute kidney injury on top of chronic kidney disease stage IV with previous baseline creatinine around 3 mg/dL. Etiology of acute kidney injury was secondary to acute tubular necrosis . The patient was initially initiated on hemodialysis due uremic symptoms and volume overload. The patient, however, has shown recovery and is no longer dialysis dependent. The patient's Perm-A-Cat h was removed. At this point, will monitor renal function closely. Continue supportive care, renal ly dose all meds, avoid nephrotoxins. The patient is aware that in the future he may require renal replacement therapy. Additionally, the patient was informed to follow up with a cloth opener hand in out patient setting. 2. Volume overload, clinically improving. Continue current diuretic regimen. 3. Hyponatremia, improving. Continue to monitor. Limit free water intake. 4. Hypertension. Continue current medical management. 5. Anemia. Continue to monitor hemoglobin and hematocrit levels. We will give Epogen as needed. 6. Diabetes. Continue Accu-Cheks and sliding scale. 7. Benign prostatic hypertrophy. Continue current medical management. 8. History of diabetic retinopathy. 9. Right eye conjunctivitis, clinically improving. Continue current medical management. Dictated By: NAE SINHA/ERICKA Conf#: [id number] DID#: [id number]
--- NOTE | 2016-09-18 13:37 | RADRPT ---
PROCEDURE: XR Abdomen. CLINICAL INDICATION: Distension TECHNIQUE: AP abdomen x-ray. COMPARISON: Abdominal radiograph 09/03/2016, CT abdomen 09/03/2016 FINDINGS: There is persistent gaseous distension of the stomach. There are now multiple gas-filled loops of s mall bowel. There is now a large amount of stool throughout the colon. There are calcifications in the upper left abdomen correlating to pancreatic calcifications. There are also atherosclerotic mariano cifications. Again seen are laminectomy defects at L2-3. IMPRESSION: Persistent gaseous distension of the stomach. Nonspecific bowel gas pattern with interval multiple gas-filled loops of small bowel, possibly refle cting an ileus. Interval large amount of stool in the colon which may reflect constipation. Pancreatic calcifications consistent with chronic pancreatitis. RPTAT: VV .Kishore Alfred MD, Date Time Electronically viewed and signed by .Kishore Alfred MD, on 09/18/2016 13:36 .O/
--- NOTE | 2016-09-18 14:31 | RADRPT ---
PROCEDURE: Noncontrast CT Head. CLINICAL INDICATION: Status post fall. Trauma. TECHNIQUE: Noncontrast CT of the head was obtained. The administered radiation dose was CTDI vol = 44.58 mGy, DLP = 720.23 mGy-cm. One or more of the following dose reduction techniques were used: Au tomated exposure control, Adjustment of the mA and/or kV according to patient size, or Use of iterat jan reconstruction technique. COMPARISON: Noncontrast CT of the head from August 12, 2016. FINDINGS: There is mild generalized cerebral volume loss. There is minimal periventricular hypoattenuation suggesting chronic microvascular ischemic changes. There are mild vascular calcifications within the intracranial carotid arteries. There is no loss of herrera-white differentiation to suggest acute territorial infarction. There is no acute intracranial hemorrhage or extra-axial fluid collection. There is no mass effect. No midline shift is identified. The orbits are within normal limits. The paranasal sinuses are well aerated. No destructive osseous lesion is identified. There is mild diffuse scalp edema. There complete left mastoid air cell effusions. IMPRESSION: 1. No acute intracranial hemorrhage or extra-axial fluid collection. 2. Mild generalized cerebral volume loss. 3. Minimal chronic microvascular ischemic changes. 4. New mild diffuse scalp edema. 5. Complete left mastoid air cell effusions. Further findings as detailed above. RPTAT: PP .Mauricio Steele MD, Date Time Electronically viewed and signed by .Mauricio Steele MD, on 09/18/2016 14:30 .F/
--- NOTE | 2016-09-18 14:34 | RADRPT ---
PROCEDURE: CT of the left knee without contrast CLINICAL INDICATION: Knee pain TECHNIQUE: CT scan of the left knee was performed. No IV contrast was administered. Coronal and sagittal reformatted images were obtained from the axial source images. images. The calculated radia tion dose measures 402.37 mGy centimeters. The CTDI measures 18.29 mGy. Images were reviewed on a hi gh-resolution PACS workstation. One or more of the following dose reduction techniques were used: - Automated exposure control. - Adjustment of the mA and/or kV according to patient size . - Use of iterative reconstruction technique. Images were reviewed on a high-resolution PACS workstation COMPARISON: None. FINDINGS: Osseous structures: There is mild marginal osteophyte formation at all 3 compartments and joint space narrowing. A subc hondral osteophyte is seen at the trochlear sulcus. There is no acute osseous abnormality or eviden ce of fracture. Bone mineral density appears diminished. Soft tissues: No evidence for a joint effusion. Trace popliteal cyst. The muscle bulk about the knee is grossly ma intained. Evaluation for the menisci and ligaments is somewhat limited on CT but attenuation is yaquelin ssly within normal limits. Extensive atherosclerotic vascular calcifications are seen. IMPRESSION: 1. Decreased bone mineral density without CT evidence for fracture. Please note that MRI is more se nsitive in evaluating for a nondisplaced fractures in this setting. 2. Mild tricompartmental arthrosis. 3. Extensive atherosclerotic vascular calcifications. 4. Trace popliteal cyst. RPTAT: UU .Gee Caal MD, MD Date Time Electronically viewed and signed by .Gee Caal MD, MD on 09/18/2016 14:34 .d/
--- NOTE | 2016-09-18 14:36 | RADRPT ---
PROCEDURE: CT of the right knee without contrast CLINICAL INDICATION: Knee pain. Status post fall. TECHNIQUE: CT scan of the right knee was performed. No IV contrast was administered. Coronal and sagittal reformatted images were obtained from the axial source images. images. The calculated radi ation dose measures 402.37 mGy centimeters. The CTDI measures 18.29 mGy. Images were reviewed on a h igh-resolution PACS workstation. One or more of the following dose reduction techniques were used: - Automated exposure control. - Adjustment of the mA and/or kV according to patient size . - Use of iterative reconstruction technique. Images were reviewed on a high-resolution PACS workstation COMPARISON: None. FINDINGS: Osseous structures: There is mild marginal osteophyte formation at all 3 compartments and joint space narrowing. A subc hondral osteophyte is seen at the trochlear sulcus. There is no acute osseous abnormality or eviden ce of fracture. Bone mineral density appears diminished. Soft tissues: No evidence for a joint effusion. Trace popliteal cyst. The muscle bulk about the knee is grossly ma intained. Evaluation for the menisci and ligaments is somewhat limited on CT but attenuation is yaquelin ssly within normal limits. Extensive atherosclerotic vascular calcifications are seen. IMPRESSION: 1. Decreased bone mineral density without CT evidence for fracture. Please note that MRI is more se nsitive in evaluating for a nondisplaced fractures in this setting. 2. Mild tricompartmental arthrosis. 3. Extensive atherosclerotic vascular calcifications. 4. Trace popliteal cyst. RPTAT: UU .Gee Caal MD, MD Date Time Electronically viewed and signed by .Gee Caal MD, MD on 09/18/2016 14:36 .d/
--- NOTE | 2016-09-18 19:24 | CONS ---
Date/Time of Note Date/Time of Note DATE: 09/18/16 TIME: 19:02 Assessment/Plan Assessment/Plan Chief Complaint/Hosp Course ID PROGRESS NOTE CURRENT ABX=>Vanco Opth Gtt + GENT Opth Gtt + ZYVOX #3 => PLAN DC GENT GTT AND START MOXIFLOXACIN FOR VRE -- SEE LITERATURE REVIEW BOTTOM OF NOTE 24H INTERVAL SUMMARY * S/P FALL today prior to 1300 -- patient OOB without safety hospital socks, without calling for assistance, slipped in his own urine, hit occipital head, fell on bilateral knees * -- c/o head ache and bilateral knee pain w/ Minor head trauma + Bilateral knee pain -- imaging competed today (see below) * Pt also c/o ABD distension, gas, had a BM -- ABD X-ray shows (+)Constipation, Persistent gaseous distension of the stomach.Nonspecific bowel gas pattern with interval multiple gas-filled loops of small bowel, possibly reflecting an ileus.Interval large amount of stool in the colon which may reflect constipation. Pancreatic calcifications consistent with chronic pancreatitis. * Hx of DM retinopathy w/bilateral blepharitis/conjunctivitis w/eye drainage = IMPROVED "poco" = "little bit" == (-)Blepharitis crust is gone, (-)Drainage, decreased orbital edema, (+)Eyelid edema persists, (+)red inflamed conjunctivitis persists * SP ACUTE RENAL FAILURE -- with recovery, PermCath DC'd -- no plans for near future HD * DIAGNOSTICS TODAY 09/16 * HEAD CT: IMPRESSION:1. No acute intracranial hemorrhage or extra-axial fluid collection. 2. Mild generalized cerebral volume loss. 3. Minimal chronic microvascular ischemic changes. 4. New mild diffuse scalp edema. 5. Complete left mastoid air cell effusions. * LEFT KNEE . Decreased bone mineral density without CT evidence for fracture. Please note that MRI is more sensitive in evaluating for a nondisplaced fractures in this setting. 2. Mild tricompartmental arthrosis.3. Extensive atherosclerotic vascular calcifications.4. Trace popliteal cyst. * RIGHT KNEE: IMPRESSION:1. Decreased bone mineral density without CT evidence for fracture. Please note that MRI is more sensitive in evaluating for a nondisplaced fractures in this setting. 2. Mild tricompartmental arthrosis.3. Extensive atherosclerotic vascular calcifications.4. Trace popliteal cyst. PHYSICAL EXAMINATION: GENERAL:VSS, NAD HEENT: Eyes closed w/mild eyelid erythema/puffy edema, no crust, no drainage seen NECK: Supple, trachea midline. 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 S/P Fall 09/18/16 w/minor head trauma & BLEXT Knee pain -> Patient with limited vision DM retinopathy, got OOB-> BRP without assist, did not put on safety socks with belt builder, slipped on his own urine and fell prior to 1300 * CT head (+)Mild scalp edema * Bilateral knees (-) Fx 2. R conjunctivitis =>mild eyelid erythema/puffy edema, no crust, no drainage seen after order for blepharitis care * EYE CULTURE Final Organism 1 VANCO RESISTANT ENTEROCOCCUS Organism 2 COAGULASE NEGATIVE STAPH Organism 3 CORYNEBACTER JEIKEIUM (GRP JK) 4. ABD gaseous distension w/constipation - DDx ileus 5. 3. S/p urinary tract infection. URINE CULTURE Final Organism 1 MIGUELITO GLABRATA COLONY COUNT >100,000 CFU/ml Organism 2 ENTEROBACTER AEROGENES COLONY COUNT 10,000 - 20,000 CFU/ml 6. Diabetes w/complication of DM Polyneuropathies: retinopathy, nephropathy, peripheral neuropathy 7. History of left otomastoiditis=> CT w/ Complete left mastoid air cell effusions. 8. Acute Renal Failure/CKD => RENAL RECOVERY ACHIEVED , w/removal of PermCath -- no plans for near future HD 9. Hypertension. 10. Mild cerebral vascular ischemic changes/atrophy on CT head (-)MRSA Nares -> 08/06/16 INVASIVES: PIV ABX ALLERGY: KNDA CURRENT ABX: =>Vanco Opth Gtt + GENT Opth Gtt + ZYVOX #3 ID RECOMMENDATIONS 1. S/P FALL today -- was in process for DC OFF HD, per adequate renal recovery, PermCath removed 09/17 * Encouraged patient to call for assistance, he has low vision 2. Continue current ABX eye Rx until resolution of acute conjunctivitis/ blepharitis =>Vanco Opth Gtt + GENT Opth Gtt * Bilateral blepharitis/conjunctivitis w/eye drainage = IMPROVED "poco" = "little bit" * (-)Blepharitis crust is gone, (-)Drainage, decreased orbital edema, (+) Eyelid edema persists, (+)red inflamed conjunctivitis persists, (+)eye pain persists * => PLAN DC GENT gtt AND START MOXIFLOXACIN gtt FOR VRE --Continue Zyvox -- SEE LITERATURE REVIEW BOTTOM OF NOTE 3. Added Zyvox IV short course for synergy w/Gent opth gtt for VRE + MAY DC OFF ZYVOX 4. Q6 H eye warm compress w/baby shampoo sterile gauze warm eyelash removal of blepharitis crust => MUCH IMPROVED LITERATURE REVIEW ON VRE OCULAR INFECTION https://www.ncbi.nlm.nih.gov/pubmed/63279038 A case of vancomycin-resistant enterococcus conjunctivitis and its clinically successful topical treatment. Joshua Hudson MA. PURPOSE: To describe what is, to our knowledge, the first documented case of vancomycin- resistant enterococcus (VRE) conjunctivitis and its successful topical treatment. METHODS: A 79-year-old white man with end-stage multiple myeloma was hospitalized for congestive heart failure and pneumonia. During hospitalization, the patient developed conjunctivitis. Cultures of the eye were directly plated into several media. The bacterium was tested for antibiotic minimum inhibitory concentration (BERT) with the Clinical and Laboratory Standards [place] (CLSI) method. RESULTS: Culture of the affected eye grew Enterococcus faecalis resistant to vancomycin. Topical treatment with moxifloxacin 0.5% (Vigamox; [place], [place], [place]) resulted in clinical resolution despite a BERT showing resistance. CONCLUSION: Clinical resolution of VRE conjunctivitis was shown with topical moxifloxacin therapy in this case. At the same time, we suggest the use of combined topical and systemic Problems: Consultation Date/Type/Reason Admit Date/Time Sep 01, 2016 at 17:29 Type of Consultation: ID Exam/Review of Systems Vital Signs Vitals Vital Signs Date Time Temp Pulse Resp B/P Pulse Ox O2 Delivery O2 Flow Rate FiO2 09/18/16 17:13 59 171/91 09/18/16 08:17 98.2 18 91 09/16/16 08:00 Nasal Cannula 2.0 Intake and Output 09/17/16 09/17/16 09/18/16 15:00 23:00 07:00 Intake Total 300 ml 1120 ml 240 ml Balance 300 ml 1120 ml 240 ml Results Result Diagram: 09/18/16 0459 09/18/16 0459 Results 24 hrs Laboratory Tests Test 09/17/16 20:58 09/18/16 04:59 09/18/16 08:11 09/18/16 12:11 Bedside Glucose 130 81 92 White Blood Count 3.6 #L Red Blood Count 3.23 L Hemoglobin 9.7 L Hematocrit 29.6 L Mean Corpuscular Volume 91.6 Mean Corpuscular Hemoglobin 30.0 Mean Corpuscular Hemoglobin Concent 32.8 Red Cell Distribution Width 15.9 H Platelet Count 138 L Mean Platelet Volume 10.1 Neutrophils % 58.6 Lymphocytes % 27.7 Monocytes % 9.0 Eosinophils % 3.9 Basophils % 0.8 Nucleated Red Blood Cells % 0.0 Neutrophils # 2.1 Lymphocytes # 1.0 Monocytes # 0.3 Eosinophils # 0.1 Basophils # 0.0 Nucleated Red Blood Cells # 0.0 Sodium Level 132 L Potassium Level 4.4 Chloride Level 93 L Carbon Dioxide Level 30 Anion Gap 13 Blood Urea Nitrogen 46 H Creatinine 2.33 H Glucose Level 83 # Calcium Level 7.7 L Phosphorus Level 4.9 Magnesium Level 2.4 Test 09/18/16 17:03 Bedside Glucose 102 Medications Medications Current Medications Finasteride (Proscar) 5 mg DAILY PO Last administered on 09/18/16t 08:30; Admin Dose 5 MG; Start 09/02/16 at 09:00 Oxycodone/ Acetaminophen (Percocet (5/ 325)) maximum total acetaminop... Q4 PRN PO PAIN LEVEL 1-5 Last administered on 09/14/16 17:57; Admin Dose 1 TAB; Start 09/01/16 at 23:00 Simethicone (Mylicon) 80 mg Q6H PRN PO DISTENSION/GAS/BLOATING Last administered on 09/17/16 21:03; Admin Dose 80 MG; Start 09/01/16 at 23:00 Tamsulosin HCl (Flomax) 0.4 mg QHS PO Last administered on 09/17/16 21:03; Admin Dose 0.4 MG; Start 09/02/16 at 21:00 Heparin Sodium (Porcine) (Heparin (5000 Units/0.5 ml)) 5,000 unit Q12 SC Last administered on 09/18/16 08:32; Admin Dose 5,000 UNIT; Start 09/02/16 at 09:00 ; Status Future hold Morphine Sulfate (morphine) 3 mg Q4H PRN IV PAIN LEVEL 6-10 Last administered on 09/18/16 17:13; Admin Dose 3 MG; Start 09/01/16 at 23:30 Ondansetron HCl (Zofran Inj) 4 mg Q6H PRN IV NAUSEA AND/OR VOMITING Last administered on 09/18/16 10:37; Admin Dose 4 MG; Start 09/01/16 at 23:30 Diagnostic Test (Pha) (Accu-Chek) 1 ea 02 XX ; Start 09/02/16 at 02:00 Isosorbide Dinitrate (Isordil) 20 mg TID PO Last administered on 09/18/16 12: 15; Admin Dose 20 MG; Start 09/01/16 at 23:00 Miscellaneous Information 1 ea NOTE XX ; Start 09/01/16 at 23:30 Glucose (Glutose) 15 gm Q15M PRN PO DECREASED GLUCOSE; Start 09/01/16 at 23:30 Glucose (Glutose) 22.5 gm Q15M PRN PO DECREASED GLUCOSE; Start 09/01/16 at 23: 30 Dextrose (D50w Syringe) 25 ml Q15M PRN IV DECREASED GLUCOSE; Start 09/01/16 at 23:30 Dextrose (D50w Syringe) 50 ml Q15M PRN IV DECREASED GLUCOSE; Start 09/01/16 at 23:30 Glucagon (Glucagen) 1 mg Q15M PRN IM DECREASED GLUCOSE; Start 09/01/16 at 23:30 Glucose (Glutose) 15 gm Q15M PRN BUCCAL DECREASED GLUCOSE; Start 09/01/16 at 23 :30 Famotidine (Pepcid) 20 mg DAILY PO Last administered on 09/18/16 08:30; Admin Dose 20 MG; Start 09/04/16 at 09:00 Levothyroxine Sodium (Synthroid) 75 mcg DAILY@06 PO Last administered on 06:13; Admin Dose 75 MCG; Start 09/08/16 at 06:00 Cholecalciferol (Vitamin D) 1,000 unit DAILY PO Last administered on 09/18/16 08:29; Admin Dose 1,000 UNIT; Start 09/07/16 at 12:30 Lactobacillus Acidophilus (Florajen3 Capsule) 1 each BID PO Last administered on 09/18/16 08:30; Admin Dose 1 EACH; Start 09/09/16 at 21:00 Lorazepam (Ativan) 1 mg Q6H PRN IV Anxiety Last administered on 09/18/16 10:37 ; Admin Dose 1 MG; Start 09/10/16 at 11:30 Gentamicin Sulfate (Gentamicin 0.3% Oph Drop) 1 drop QID BOTH EYES Last administered on 09/18/16 17:13; Admin Dose 1 DROP; Start 09/12/16 at 17:00 Vancomycin HCl (Vancomycin/ Hypromellose Oph) 1 drop QID BOTH EYES Last administered on 09/18/16 17:13; Admin Dose 1 DROP; Start 09/12/16 at 17:00 Lactulose (Enulose) 30 gm BID PRN PO CONSTIPATION; Start 09/16/16 at 11:30 Nifedipine 60 mg 60 mg DAILY PO Last administered on 09/18/16 08:30; Admin Dose 60 MG; Start 09/17/16 at 09:00 Linezolid (Zyvox 600mg/D5W (Pmx)) 300 ml @ 300 mls/hr Q12 IVPB Last administered on 09/18/16 08:33; Admin Dose 300 MLS/HR; Start 09/16/16 at 14:30 JAMIR SERNA NP Sep 18, 2016 19:14
[2016-09-18] MEDS ORDERED: SOD CHLORIDE 0.9% 1,000 ML IV SCH (20:30)
--- NOTE | 2016-09-18 20:40 | PN ---
Date/Time of Note Date/Time of Note DATE: 09/18/16 TIME: 20:26 Assessment/Plan VTE Prophylaxis VTE Prophylaxis Intervention: heparin Lines/Catheters IV [facility] PICC Line Central line still needed: Yes Urinary Cath still in place: No Assessment/Plan Chief Complaint/Hosp Course 1. Acute renal failure from ATN, which is improving and patient no longer needs dialysis as per nephro with Perm A cath removal. Diuretic dose decreased to once daily. 2. ileus -abdominal distention, gas in the bowel seen on x-ray, patient still states that he did have a BM today however large stool seen on x-ray. Diuretics decreased today to once daily as they could could be contributing to the constipation/ileus. Will also have general surgery evaluate. At this time will switch patient to clear liquids and continue lactulose, if any nausea vomiting develop for patient n.p.o. NG tube for decompression. Follow electrolytes and replete as necessary. 3. Fall -patient appears to have had a mechanical fall, CT scan of head and xrays of knees negative. Continue fall precautions. Monitor pain. Hyponatremia - mild, likely secondary to contraction/diuretics. Metolazone discontinued. Follow bmp. Diuretics decreased to once daily secondary to #2. 4. DM, stable 5. Hyperkalemia - Resolved 6. Anemia of chronic disease. stable 7. Benign prostatic hypertrophy. Continue medical management. 8. History of diabetic retinopathy. 9. Bilateral conjunctivitis, on eye drops(vanco/genta), on zyvox for synergy as per ID, warm compresses. 10. DVP prophylaxis: heparin Dispo: follow up general surgery recs for illeus, continue treatment for conjunctivitis, PT eval and assisted ambulation as that will likely help with ileus. Problems: Subjective 24 Hr Interval Summary Free Text/Dictation Patient fell today while getting up and going to the bathroom to urinate. He states that he slept on his urine and he fell forward towards the knee and hit his head. Denies any loss of consciousness. Unwitnessed fall. Patient was awake and alert when seen by the nurses. Patient also states that he still has some abdominal distention. States he did have a BM today. Patient states that his eyes are still burning bilaterally. Exam/Review of Systems Vital Signs Vitals Vital Signs Date Time Temp Pulse Resp B/P Pulse Ox O2 Delivery O2 Flow Rate FiO2 09/18/16 17:13 59 171/91 09/18/16 08:17 98.2 18 91 09/16/16 08:00 Nasal Cannula 2.0 Intake and Output 09/17/16 09/17/16 09/18/16 14:59 22:59 06:59 Intake Total 300 ml 1120 ml 240 ml Balance 300 ml 1120 ml 240 ml Exam General: Patient is lying in bed in no acute distress. The patient is alert oriented -3 HEENT: Erythema of bilateral conjunctival, scant dried discharge noted Neck: Supple with full range of motion. No rigidity or meningismus Chest: Nontender Lungs: Clear to auscultation bilaterally no crackles rales or wheezing Heart: Normal S1-S2, Regular rhythm and rate. No murmur, S3, or S4 Abdomen: Soft, mild distention, tympanic Extremities: No edema Results Result Diagram: 09/18/16 0459 09/18/16 0459 Results 24 hrs Laboratory Tests Test 09/17/16 20:58 09/18/16 04:59 09/18/16 08:11 09/18/16 12:11 Bedside Glucose 130 81 92 White Blood Count 3.6 #L Red Blood Count 3.23 L Hemoglobin 9.7 L Hematocrit 29.6 L Mean Corpuscular Volume 91.6 Mean Corpuscular Hemoglobin 30.0 Mean Corpuscular Hemoglobin Concent 32.8 Red Cell Distribution Width 15.9 H Platelet Count 138 L Mean Platelet Volume 10.1 Neutrophils % 58.6 Lymphocytes % 27.7 Monocytes % 9.0 Eosinophils % 3.9 Basophils % 0.8 Nucleated Red Blood Cells % 0.0 Neutrophils # 2.1 Lymphocytes # 1.0 Monocytes # 0.3 Eosinophils # 0.1 Basophils # 0.0 Nucleated Red Blood Cells # 0.0 Sodium Level 132 L Potassium Level 4.4 Chloride Level 93 L Carbon Dioxide Level 30 Anion Gap 13 Blood Urea Nitrogen 46 H Creatinine 2.33 H Glucose Level 83 # Calcium Level 7.7 L Phosphorus Level 4.9 Magnesium Level 2.4 Test 09/18/16 17:03 Bedside Glucose 102 Medications Medications Current Medications Finasteride (Proscar) 5 mg DAILY PO Last administered on 09/18/16t 08:30; Admin Dose 5 MG; Start 09/02/16 at 09:00 Oxycodone/ Acetaminophen (Percocet (5/ 325)) maximum total acetaminop... Q4 PRN PO PAIN LEVEL 1-5 Last administered on 09/14/16 17:57; Admin Dose 1 TAB; Start 09/01/16 at 23:00 Simethicone (Mylicon) 80 mg Q6H PRN PO DISTENSION/GAS/BLOATING Last administered on 09/17/16 21:03; Admin Dose 80 MG; Start 09/01/16 at 23:00 Tamsulosin HCl (Flomax) 0.4 mg QHS PO Last administered on 09/17/16 21:03; Admin Dose 0.4 MG; Start 09/02/16 at 21:00 Heparin Sodium (Porcine) (Heparin (5000 Units/0.5 ml)) 5,000 unit Q12 SC Last administered on 09/18/16 08:32; Admin Dose 5,000 UNIT; Start 09/02/16 at 09:00 ; Status Future hold Morphine Sulfate (morphine) 3 mg Q4H PRN IV PAIN LEVEL 6-10 Last administered on 09/18/16 17:13; Admin Dose 3 MG; Start 09/01/16 at 23:30 Ondansetron HCl (Zofran Inj) 4 mg Q6H PRN IV NAUSEA AND/OR VOMITING Last administered on 09/18/16 10:37; Admin Dose 4 MG; Start 09/01/16 at 23:30 Diagnostic Test (Pha) (Accu-Chek) 1 ea 02 XX ; Start 09/02/16 at 02:00 Isosorbide Dinitrate (Isordil) 20 mg TID PO Last administered on 09/18/16 12: 15; Admin Dose 20 MG; Start 09/01/16 at 23:00 Miscellaneous Information 1 ea NOTE XX ; Start 09/01/16 at 23:30 Glucose (Glutose) 15 gm Q15M PRN PO DECREASED GLUCOSE; Start 09/01/16 at 23:30 Glucose (Glutose) 22.5 gm Q15M PRN PO DECREASED GLUCOSE; Start 09/01/16 at 23: 30 Dextrose (D50w Syringe) 25 ml Q15M PRN IV DECREASED GLUCOSE; Start 09/01/16 at 23:30 Dextrose (D50w Syringe) 50 ml Q15M PRN IV DECREASED GLUCOSE; Start 09/01/16 at 23:30 Glucagon (Glucagen) 1 mg Q15M PRN IM DECREASED GLUCOSE; Start 09/01/16 at 23:30 Glucose (Glutose) 15 gm Q15M PRN BUCCAL DECREASED GLUCOSE; Start 09/01/16 at 23 :30 Famotidine (Pepcid) 20 mg DAILY PO Last administered on 09/18/16 08:30; Admin Dose 20 MG; Start 09/04/16 at 09:00 Levothyroxine Sodium (Synthroid) 75 mcg DAILY@06 PO Last administered on 06:13; Admin Dose 75 MCG; Start 09/08/16 at 06:00 Cholecalciferol (Vitamin D) 1,000 unit DAILY PO Last administered on 09/18/16 08:29; Admin Dose 1,000 UNIT; Start 09/07/16 at 12:30 Lactobacillus Acidophilus (Florajen3 Capsule) 1 each BID PO Last administered on 09/18/16 08:30; Admin Dose 1 EACH; Start 09/09/16 at 21:00 Lorazepam (Ativan) 1 mg Q6H PRN IV Anxiety Last administered on 09/18/16 10:37 ; Admin Dose 1 MG; Start 09/10/16 at 11:30 Vancomycin HCl (Vancomycin/ Hypromellose Oph) 1 drop QID BOTH EYES Last administered on 09/18/16 17:13; Admin Dose 1 DROP; Start 09/12/16 at 17:00 Lactulose (Enulose) 30 gm BID PRN PO CONSTIPATION; Start 09/16/16 at 11:30 Nifedipine 60 mg 60 mg DAILY PO Last administered on 09/18/16 08:30; Admin Dose 60 MG; Start 09/17/16 at 09:00 Linezolid (Zyvox 600mg/D5W (Pmx)) 300 ml @ 300 mls/hr Q12 IVPB Last administered on 09/18/16 08:33; Admin Dose 300 MLS/HR; Start 09/16/16 at 14:30 Moxifloxacin HCl (Vigamox) 1 drop TID BOTH EYES ; Start 09/18/16 at 21:30 Hydralazine HCl 10 mg 10 mg Q8H PRN PO BLOOD PRESSURE SUPPORT; Start 09/18/16 at 20:30 Sodium Chloride (NS) 1,000 ml @ 50 mls/hr Q20H IV ; Start 09/18/16 at 20:30; Status EMILY WHEELER Sep 18, 2016 20:38
[2016-09-18] MEDS: TAMSULOSIN (SR) 0.4 MG CAP PO SCH (20:56)
[2016-09-18] MEDS: MOXIFLOXACIN 0.5% 3 ML OPH BOTH EYES SCH (21:30)
[2016-09-19] VITALS: BP 190/99
[2016-09-19] MEDS: hydrALAzine 20 MG INJ IV PRN ×2 (01:02→17:39)
[2016-09-19 01:09] VITALS: BP 163/99; PULSE 75
[2016-09-19] MEDS: ACCU-CHEK XX SCH (02:00)
[2016-09-19 02:52] VITALS: BP 178/95; PULSE 75
[2016-09-19] MEDS ORDERED: hydrALAzine 20 MG INJ IV ONE (03:00)
[2016-09-19 03:47] VITALS: BP 156/85; PULSE 73
[2016-09-19] MEDS: morphine 4 MG/ML VIAL IV PRN ×3 (04:35→16:33)
[2016-09-19 05:19] LABS: ADD SCAN DIFF NO
[2016-09-19 05:25] LABS: BASOPHILS % 0.9 % (0.0-2.0); EOSINOPHILS # 0.1 10^3/ul (0.0-0.5); EOSINOPHILS % 3.9 % (0.0-7.0); LYMPHOCYTES % 28.8 % (15.0-51.0); MEAN CORPUSCULAR HEMOGLOBIN 30.3 pg (29.0-33.0); MEAN CORPUSCULAR HGB CONC 33.3 g/dl (32.0-37.0); MEAN CORPUSCULAR VOLUME 90.9 fl (82.0-101.0); MEAN PLATELET VOLUME 10.7 fl (7.4-10.4); MONOCYTE # 0.3 10^3/ul (0.3-0.9); MONOCYTES % 8.1 % (0.0-11.0); NEUTROPHIL # 1.9 10^3/ul (1.6-7.5); NEUTROPHILS % 58.3 % (39.0-77.0); PLATELET COUNT 166 10^3/UL (140-415); WHITE BLOOD COUNT 3.3 10^3/ul (4.8-10.8)
[2016-09-19] MEDS: LEVOTHYROXINE 75 MCG TAB PO SCH (05:32)
[2016-09-19 05:36] LABS: CREATININE 2.36 mg/dl (0.61-1.24); MAGNESIUM 2.4 mg/dl (1.7-2.5); PHOSPHORUS 4.9 mg/dl (2.5-4.9); POTASSIUM 4.9 mmol/L (3.5-5.1)
[2016-09-19] MEDS: INSULIN ASPART [NOVOLOG] 3 ML PEN SC SCH ×4 (08:00→21:00)
[2016-09-19 08:39] VITALS: BP 150/80; RESP 17
[2016-09-19] MEDS ORDERED: FUROSEMIDE 40 MG TAB PO SCH (09:00)
[2016-09-19] MEDS: LORAZEPAM 2 MG INJ IV PRN (09:01)
[2016-09-19] MEDS: SEVELAMER 800 MG TAB PO SCH ×3 (09:01→17:27)
[2016-09-19] MEDS: CHOLECALCIFEROL 1,000 UNIT TAB PO SCH (09:02)
[2016-09-19] MEDS: ISOSORBIDE DINITRATE 20 MG TAB PO SCH ×3 (09:02→21:54)
[2016-09-19] MEDS: FAMOTIDINE 20 MG TAB PO SCH (09:02)
[2016-09-19] MEDS: FINASTERIDE 5 MG TAB PO SCH (09:02)
[2016-09-19] MEDS: MOXIFLOXACIN 0.5% 3 ML OPH BOTH EYES SCH ×3 (09:03→16:36)
[2016-09-19] MEDS: LINEZOLID 600 MG/D5W (PMX) 300 ML IVPB SCH ×2 (09:03→22:06)
[2016-09-19] MEDS: L ACIDOPHIL/B LACTIS/B LONGUM CAPSULE PO SCH ×2 (09:03→21:55)
[2016-09-19] MEDS: NIFEdipine (XL) 60 MG TAB PO SCH (09:04)
[2016-09-19] MEDS: HEPARIN 5,000 UNIT/0.5 ML VIAL SC SCH ×2 (09:04→21:55)
[2016-09-19] MEDS: HYPROMELLOSE BOTH EYES SCH ×3 (09:08→16:37)
[2016-09-19] MEDS: VANCOMYCIN BOTH EYES SCH ×3 (09:08→16:37)
--- NOTE | 2016-09-19 10:48 | PN ---
DATE: 09/19/2016 SUBJECTIVE: The patient remains stable, mildly lethargic this morning. No other events noted. OBJECTIVE: VITAL SIGNS: Blood pressure 150/85, respirations 17, pulse 64, temperature 97.5. HEENT: Head is normocephalic. NECK: Supple. HEART: Regular rate. LUNGS: Show diminished breath sounds at base. ABDOMEN: Soft, nontender to palpation without rebound or guarding. EXTREMITIES: Negative for clubbing, cyanosis. Trace edema. DERMATOLOGIC: No rashes. MUSCULOSKELETAL: No joint effusions. NEUROLOGIC: No change in exam. MEDICATIONS: The patient's medications have been reviewed. LABORATORY DATA: Showed sodium 128, potassium 4.9, chloride 94, BUN 51, creatinine 2.36. White count 3.3, hemoglobin 10.0, hematocrit 30.7, platelet count is 166. ASSESSMENT AND PLAN: 1. Nonoliguric acute kidney injury on top of chronic kidney disease stage IV with previous baseline creatinine around 3 mg/dL. Etiology of acute kidney injury is secondary to acute tubular necrosis. The patient is status post hemodialysis, no longer hemodialysis depended. At this point, continue current treatment plan, supportive care, renally dose all meds, and monitor renal function closely. 2. Hyponatremia likely multifactorial from candido, chronic kidney disease, and low solute intake, causing decreased free water urinary excretion. The patient has been on liquid diet with poor solute intake. Plan to monitor serial sodium levels. Will repeat u/a. urine lytes, will hold diuretics. Limit free water intake. If sodium levels continue to decline would give a fluid challenge. Monitor closely. 3. Volume overload. The patient is clinically improving, near euvolemic. Will deescalate Lasix 4. Hypertension. Continue current blood pressure regimen. 5. Anemia. Continue to monitor H and H levels. We will give Epogen as needed. 6. Diabetes. Continue current insulin regimen. 7. Benign prostatic hypertrophy. Continue medical management. 8. Right eye conjunctivitis. The patient is clinically improving. Continue current treatment plan. Dictated By: NEA SINHA/ERICKA Conf#: [id number] DID#: [id number] MTDD
--- NOTE | 2016-09-19 15:49 | PN ---
Date/Time of Note Date/Time of Note DATE: 09/19/16 TIME: 15:38 Assessment/Plan VTE Prophylaxis VTE Prophylaxis Intervention: heparin Lines/Catheters IV Catheter Type (from Nrs): PICC Line Central line still needed: Yes Urinary Cath still in place: No Assessment/Plan Chief Complaint/Hosp Course 1. Acute renal failure from ATN, which is improving and patient no longer needs dialysis as per nephro with Perm A cath removal. Diuretic dose decreased to once daily. Follow Na. Restrict free water intake. 2. ileus - abdominal distension has improved. Small bm today. Continue lactulose. Repeat abdominal xray tomorrow in AM. 3. Fall -patient appears to have had a mechanical fall, CT scan of head and xrays of knees negative. Continue fall precautions. healing scab on right knee, no acute bleeding. Hyponatremia - mild, likely secondary to contraction/diuretics. Metolazone discontinued. Follow bmp. Diuretics decreased to once daily secondary to #2 and due to Na of 128. Limit free water intake as per nephro. 4. DM, stable 5. Hyperkalemia - Resolved 6. Anemia of chronic disease. stable 7. Benign prostatic hypertrophy. Continue medical management. 8. History of diabetic retinopathy. 9. Bilateral conjunctivitis, on eye drops(vanco/genta), on zyvox for synergy as per ID, warm compresses. 10. DVP prophylaxis: heparin Dispo: Follow Na, watch for improvement of ileus, repeat abdominal xray in the morning. Problems: Subjective 24 Hr Interval Summary Free Text/Dictation Patient reports he did a small BM today. He states his stomach is less distended. Eyes are still burning. Subjective hx not possible: pt non-verbal Exam/Review of Systems Vital Signs Vitals Vital Signs Date Time Temp Pulse Resp B/P Pulse Ox O2 Delivery O2 Flow Rate FiO2 09/19/16 08:39 97.5 64 17 150/80 95 09/16/16 08:00 Nasal Cannula 2.0 Intake and Output 09/18/16 09/18/16 09/19/16 15:00 23:00 07:00 Intake Total 300 ml 1020 ml 250 ml Output Total 925 ml Balance 300 ml 1020 ml -675 ml Exam General: Patient is lying in bed in no acute distress. The patient is alert oriented -3 HEENT: Erythema of bilateral conjunctival Neck: Supple with full range of motion. No rigidity or meningismus Chest: Nontender Lungs: Clear to auscultation bilaterally no crackles rales or wheezing Heart: Normal S1-S2, Regular rhythm and rate. No murmur, S3, or S4 Abdomen: Soft, distension improved. Extremities: No edema, healing scar of extremity of right knee Results Result Diagram: 09/19/16 0440 09/19/16 0440 Results 24 hrs Laboratory Tests Test 09/18/16 17:03 09/18/16 21:20 09/19/16 04:40 09/19/16 08:01 Bedside Glucose 102 128 92 White Blood Count 3.3 L Red Blood Count 3.30 L Hemoglobin 10.0 L Hematocrit 30.0 L Mean Corpuscular Volume 90.9 Mean Corpuscular Hemoglobin 30.3 Mean Corpuscular Hemoglobin Concent 33.3 Red Cell Distribution Width 16.0 H Platelet Count 166 # Mean Platelet Volume 10.7 H Neutrophils % 58.3 Lymphocytes % 28.8 Monocytes % 8.1 Eosinophils % 3.9 Basophils % 0.9 Nucleated Red Blood Cells % 0.0 Neutrophils # 1.9 Lymphocytes # 1.0 Monocytes # 0.3 Eosinophils # 0.1 Basophils # 0.0 Nucleated Red Blood Cells # 0.0 Sodium Level 129 L Potassium Level 4.9 Chloride Level 94 L Carbon Dioxide Level 30 Anion Gap 10 Blood Urea Nitrogen 51 H Creatinine 2.36 H Glucose Level 103 Calcium Level 8.0 L Phosphorus Level 4.9 Magnesium Level 2.4 Test 09/19/16 11:24 Bedside Glucose 113 Medications Medications Current Medications Finasteride (Proscar) 5 mg DAILY PO Last administered on 09/19/16 09:02; Admin Dose 5 MG; Start 09/02/16 at 09:00 Oxycodone/ Acetaminophen (Percocet (5/ 325)) maximum total acetaminop... Q4 PRN PO PAIN LEVEL 1-5 Last administered on 09/14/16 17:57; Admin Dose 1 TAB; Start 09/01/16 at 23:00 Simethicone (Mylicon) 80 mg Q6H PRN PO DISTENSION/GAS/BLOATING Last administered on 09/17/16 21:03; Admin Dose 80 MG; Start 09/01/16 at 23:00 Tamsulosin HCl (Flomax) 0.4 mg QHS PO Last administered on 09/18/16 20:56; Admin Dose 0.4 MG; Start 09/02/16 at 21:00 Heparin Sodium (Porcine) (Heparin (5000 Units/0.5 ml)) 5,000 unit Q12 SC Last administered on 09/19/16 09:04; Admin Dose 5,000 UNIT; Start 09/02/16 at 09:00 ; Status Future hold Morphine Sulfate (morphine) 3 mg Q4H PRN IV PAIN LEVEL 6-10 Last administered on 09/19/16 12:12; Admin Dose 3 MG; Start 09/01/16 at 23:30 Ondansetron HCl (Zofran Inj) 4 mg Q6H PRN IV NAUSEA AND/OR VOMITING Last administered on 09/18/16 10:37; Admin Dose 4 MG; Start 09/01/16 at 23:30 Diagnostic Test (Pha) (Accu-Chek) 1 ea 02 XX ; Start 09/02/16 at 02:00 Isosorbide Dinitrate (Isordil) 20 mg TID PO Last administered on 09/19/16 12: 08; Admin Dose 20 MG; Start 09/01/16 at 23:00 Miscellaneous Information 1 ea NOTE XX ; Start 09/01/16 at 23:30 Glucose (Glutose) 15 gm Q15M PRN PO DECREASED GLUCOSE; Start 09/01/16 at 23:30 Glucose (Glutose) 22.5 gm Q15M PRN PO DECREASED GLUCOSE; Start 09/01/16 at 23: 30 Dextrose (D50w Syringe) 25 ml Q15M PRN IV DECREASED GLUCOSE; Start 09/01/16 at 23:30 Dextrose (D50w Syringe) 50 ml Q15M PRN IV DECREASED GLUCOSE; Start 09/01/16 at 23:30 Glucagon (Glucagen) 1 mg Q15M PRN IM DECREASED GLUCOSE; Start 09/01/16 at 23:30 Glucose (Glutose) 15 gm Q15M PRN BUCCAL DECREASED GLUCOSE; Start 09/01/16 at 23 :30 Famotidine (Pepcid) 20 mg DAILY PO Last administered on 09/19/16 09:02; Admin Dose 20 MG; Start 09/04/16 at 09:00 Levothyroxine Sodium (Synthroid) 75 mcg DAILY@06 PO Last administered on 05:32; Admin Dose 75 MCG; Start 09/08/16 at 06:00 Cholecalciferol (Vitamin D) 1,000 unit DAILY PO Last administered on 09/19/16 09:02; Admin Dose 1,000 UNIT; Start 09/07/16 at 12:30 Lactobacillus Acidophilus (Florajen3 Capsule) 1 each BID PO Last administered on 09/19/16 09:03; Admin Dose 1 EACH; Start 09/09/16 at 21:00 Lorazepam (Ativan) 1 mg Q6H PRN IV Anxiety Last administered on 09/19/16 09:01 ; Admin Dose 1 MG; Start 09/10/16 at 11:30 Vancomycin HCl (Vancomycin/ Hypromellose Oph) 1 drop QID BOTH EYES Last administered on 09/19/16 12:09; Admin Dose 1 DROP; Start 09/12/16 at 17:00 Lactulose (Enulose) 30 gm BID PRN PO CONSTIPATION; Start 09/16/16 at 11:30 Nifedipine 60 mg 60 mg DAILY PO Last administered on 09/19/16 09:04; Admin Dose 60 MG; Start 09/17/16 at 09:00 Linezolid (Zyvox 600mg/D5W (Pmx)) 300 ml @ 300 mls/hr Q12 IVPB Last administered on 09/19/16 09:03; Admin Dose 300 MLS/HR; Start 09/16/16 at 14:30 Moxifloxacin HCl (Vigamox) 1 drop TID BOTH EYES Last administered on 09/19/16 12:09; Admin Dose 1 DROP; Start 09/18/16 at 21:30 Hydralazine HCl (Apresoline) 25 mg TID PO Last administered on 09/19/16 12:08 ; Admin Dose 25 MG; Start 09/19/16 at 09:00 Hydralazine HCl (Apresoline) 10 mg Q4H PRN IV ELEVATED SYSTOLIC BP Last administered on 09/19/16 01:02; Admin Dose 10 MG; Start 09/19/16 at 01:00 Furosemide (Lasix) 40 mg DAILY PO ; Start 09/20/16 at 09:00 EMILY GUTIERREZ Sep 19, 2016 15:48
[2016-09-19 17:43] LABS: CALCIUM 7.9 mg/dl (8.4-10.2); CREATININE 2.2 mg/dl (0.61-1.24); POTASSIUM 4.7 mmol/L (3.5-5.1)
[2016-09-19 21:16] VITALS: BP 169/89; RESP 16
--- NOTE | 2016-09-19 21:29 | CONS ---
Date/Time of Note Date/Time of Note DATE: 09/19/16 TIME: 21:25 Assessment/Plan Assessment/Plan Chief Complaint/Hosp Course ID PROGRESS NOTE CURRENT ABX=> ZYVOX #4 + Moxifloxacin for VRE (SEE LITERATURE REVIEW BOTTOM OF NOTE) + GENT Opth Gtt=>DC'd DC Vanco Opth Gtt 24H INTERVAL SUMMARY * Persisting conjunctivitis -VRE is difficult to treat -- Started on Zyvox + Moxifloxacin for VRE * s/p fall yesterday - x-rays negative * No fevers, PermCath DC'd with renal recovery, no plans for HD PHYSICAL EXAMINATION: GENERAL:VSS, NAD HEENT: Eyes closed w/mild eyelid erythema/puffy edema, no crust, no drainage seen NECK: Supple, trachea midline. 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 S/P Fall 09/18/16 w/minor head trauma & BLEXT Knee pain -> Patient with limited vision DM retinopathy, got OOB-> BRP without assist, did not put on safety socks with community support worker, slipped on his own urine and fell prior to 1300 * CT head (+)Mild scalp edema * Bilateral knees (-) Fx 2. R conjunctivitis =>mild eyelid erythema/puffy edema, no crust, no drainage seen after order for blepharitis care * EYE CULTURE Final Organism 1 VANCO RESISTANT ENTEROCOCCUS Organism 2 COAGULASE NEGATIVE STAPH Organism 3 CORYNEBACTER JEIKEIUM (GRP JK) 4. ABD gaseous distension w/constipation - DDx ileus 5. 3. S/p urinary tract infection. URINE CULTURE Final Organism 1 MIGUELITO GLABRATA COLONY COUNT >100,000 CFU/ml Organism 2 ENTEROBACTER AEROGENES COLONY COUNT 10,000 - 20,000 CFU/ml 6. Diabetes w/complication of DM Polyneuropathies: retinopathy, nephropathy, peripheral neuropathy 7. History of left otomastoiditis=> CT w/ Complete left mastoid air cell effusions. 8. Acute Renal Failure/CKD => RENAL RECOVERY ACHIEVED , w/removal of PermCath -- no plans for near future HD 9. Hypertension. 10. Mild cerebral vascular ischemic changes/atrophy on CT head (-)MRSA Nares -> 08/06/16 INVASIVES: PIV ABX ALLERGY: KNDA CURRENT ABX: =>Vanco Opth Gtt + GENT Opth Gtt + ZYVOX #3 ID RECOMMENDATIONS Persisting conjunctivitis -VRE is difficult to treat -- Started on Zyvox + Moxifloxacin for VRE * s/p fall yesterday - x-rays negative * No fevers, PermCath DC'd with renal recovery, no plans for HD LITERATURE REVIEW ON VRE OCULAR INFECTION https://www.ncbi.nlm.nih.gov/pubmed/62681593 A case of vancomycin-resistant enterococcus conjunctivitis and its clinically successful topical treatment. Joshua Hudson MA. PURPOSE: To describe what is, to our knowledge, the first documented case of vancomycin- resistant enterococcus (VRE) conjunctivitis and its successful topical treatment. METHODS: A 79-year-old white man with end-stage multiple myeloma was hospitalized for congestive heart failure and pneumonia. During hospitalization, the patient developed conjunctivitis. Cultures of the eye were directly plated into several media. The bacterium was tested for antibiotic minimum inhibitory concentration (BERT) with the Clinical and Laboratory Standards [place] (CLSI) method. RESULTS: Culture of the affected eye grew Enterococcus faecalis resistant to vancomycin. Topical treatment with moxifloxacin 0.5% (Vigamox; [place], [place], [place]) resulted in clinical resolution despite a BERT showing resistance. CONCLUSION: Clinical resolution of VRE conjunctivitis was shown with topical moxifloxacin therapy in this case. At the same time, we suggest the use of combined topical and systemic Problems: Consultation Date/Type/Reason Admit Date/Time Sep 01, 2016 at 17:29 Type of Consultation: ID Exam/Review of Systems Vital Signs Vitals Vital Signs Date Time Temp Pulse Resp B/P Pulse Ox O2 Delivery O2 Flow Rate FiO2 09/19/16 21:16 97.8 56 16 169/89 94 09/16/16 08:00 Nasal Cannula 2.0 Intake and Output 09/18/16 09/18/16 09/19/16 15:00 23:00 07:00 Intake Total 300 ml 1020 ml 250 ml Output Total 925 ml Balance 300 ml 1020 ml -675 ml Results Result Diagram: 09/19/16 0440 09/19/16 1700 Results 24 hrs Laboratory Tests Test 09/19/16 04:40 09/19/16 08:01 09/19/16 11:24 09/19/16 17:00 White Blood Count 3.3 L Red Blood Count 3.30 L Hemoglobin 10.0 L Hematocrit 30.0 L Mean Corpuscular Volume 90.9 Mean Corpuscular Hemoglobin 30.3 Mean Corpuscular Hemoglobin Concent 33.3 Red Cell Distribution Width 16.0 H Platelet Count 166 # Mean Platelet Volume 10.7 H Neutrophils % 58.3 Lymphocytes % 28.8 Monocytes % 8.1 Eosinophils % 3.9 Basophils % 0.9 Nucleated Red Blood Cells % 0.0 Neutrophils # 1.9 Lymphocytes # 1.0 Monocytes # 0.3 Eosinophils # 0.1 Basophils # 0.0 Nucleated Red Blood Cells # 0.0 Sodium Level 129 L 126 L Potassium Level 4.9 4.7 Chloride Level 94 L 92 L Carbon Dioxide Level 30 29 Anion Gap 10 10 Blood Urea Nitrogen 51 H 54 H Creatinine 2.36 H 2.20 H Glucose Level 103 76 Calcium Level 8.0 L 7.9 L Phosphorus Level 4.9 Magnesium Level 2.4 Bedside Glucose 92 113 Test 09/19/16 17:26 Bedside Glucose 79 Medications Medications Current Medications Finasteride (Proscar) 5 mg DAILY PO Last administered on 09/19/16t 09:02; Admin Dose 5 MG; Start 09/02/16 at 09:00 Oxycodone/ Acetaminophen (Percocet (5/ 325)) maximum total acetaminop... Q4 PRN PO PAIN LEVEL 1-5 Last administered on 09/14/16 17:57; Admin Dose 1 TAB; Start 09/01/16 at 23:00 Simethicone (Mylicon) 80 mg Q6H PRN PO DISTENSION/GAS/BLOATING Last administered on 09/17/16 21:03; Admin Dose 80 MG; Start 09/01/16 at 23:00 Tamsulosin HCl (Flomax) 0.4 mg QHS PO Last administered on 09/18/16 20:56; Admin Dose 0.4 MG; Start 09/02/16 at 21:00 Heparin Sodium (Porcine) (Heparin (5000 Units/0.5 ml)) 5,000 unit Q12 SC Last administered on 09/19/16 09:04; Admin Dose 5,000 UNIT; Start 09/02/16 at 09:00 ; Status Future hold Morphine Sulfate (morphine) 3 mg Q4H PRN IV PAIN LEVEL 6-10 Last administered on 09/19/16 16:33; Admin Dose 3 MG; Start 09/01/16 at 23:30 Ondansetron HCl (Zofran Inj) 4 mg Q6H PRN IV NAUSEA AND/OR VOMITING Last administered on 09/18/16 10:37; Admin Dose 4 MG; Start 09/01/16 at 23:30 Diagnostic Test (Pha) (Accu-Chek) 1 ea 02 XX ; Start 09/02/16 at 02:00 Isosorbide Dinitrate (Isordil) 20 mg TID PO Last administered on 09/19/16 12: 08; Admin Dose 20 MG; Start 09/01/16 at 23:00 Miscellaneous Information 1 ea NOTE XX ; Start 09/01/16 at 23:30 Glucose (Glutose) 15 gm Q15M PRN PO DECREASED GLUCOSE; Start 09/01/16 at 23:30 Glucose (Glutose) 22.5 gm Q15M PRN PO DECREASED GLUCOSE; Start 09/01/16 at 23: 30 Dextrose (D50w Syringe) 25 ml Q15M PRN IV DECREASED GLUCOSE; Start 09/01/16 at 23:30 Dextrose (D50w Syringe) 50 ml Q15M PRN IV DECREASED GLUCOSE; Start 09/01/16 at 23:30 Glucagon (Glucagen) 1 mg Q15M PRN IM DECREASED GLUCOSE; Start 09/01/16 at 23:30 Glucose (Glutose) 15 gm Q15M PRN BUCCAL DECREASED GLUCOSE; Start 09/01/16 at 23 :30 Famotidine (Pepcid) 20 mg DAILY PO Last administered on 09/19/16 09:02; Admin Dose 20 MG; Start 09/04/16 at 09:00 Levothyroxine Sodium (Synthroid) 75 mcg DAILY@06 PO Last administered on 05:32; Admin Dose 75 MCG; Start 09/08/16 at 06:00 Cholecalciferol (Vitamin D) 1,000 unit DAILY PO Last administered on 09/19/16 09:02; Admin Dose 1,000 UNIT; Start 09/07/16 at 12:30 Lactobacillus Acidophilus (Florajen3 Capsule) 1 each BID PO Last administered on 09/19/16 09:03; Admin Dose 1 EACH; Start 09/09/16 at 21:00 Lorazepam (Ativan) 1 mg Q6H PRN IV Anxiety Last administered on 09/19/16 09:01 ; Admin Dose 1 MG; Start 09/10/16 at 11:30 Vancomycin HCl (Vancomycin/ Hypromellose Oph) 1 drop QID BOTH EYES Last administered on 09/19/16 16:37; Admin Dose 1 DROP; Start 09/12/16 at 17:00 Lactulose (Enulose) 30 gm BID PRN PO CONSTIPATION; Start 09/16/16 at 11:30 Nifedipine 60 mg 60 mg DAILY PO Last administered on 09/19/16 09:04; Admin Dose 60 MG; Start 09/17/16 at 09:00 Linezolid (Zyvox 600mg/D5W (Pmx)) 300 ml @ 300 mls/hr Q12 IVPB Last administered on 09/19/16 09:03; Admin Dose 300 MLS/HR; Start 09/16/16 at 14:30 Moxifloxacin HCl (Vigamox) 1 drop TID BOTH EYES Last administered on 09/19/16 16:36; Admin Dose 1 DROP; Start 09/18/16 at 21:30 Hydralazine HCl (Apresoline) 25 mg TID PO Last administered on 09/19/16 12:08 ; Admin Dose 25 MG; Start 09/19/16 at 09:00 Hydralazine HCl (Apresoline) 10 mg Q4H PRN IV ELEVATED SYSTOLIC BP Last administered on 09/19/16t 17:39; Admin Dose 10 MG; Start 09/19/16 at 01:00 Furosemide (Lasix) 40 mg DAILY PO ; Start 09/20/16 at 09:00 JAMIR SERNA NP Sep 19, 2016 21:29
[2016-09-19] MEDS: TAMSULOSIN (SR) 0.4 MG CAP PO SCH (21:54)
[2016-09-19] MEDS: ONDANSETRON 4 MG INJ IV PRN (21:59)
[2016-09-19 23:14] LABS: CALCIUM 7.8 mg/dl (8.4-10.2); CREATININE 2.37 mg/dl (0.61-1.24); POTASSIUM 4.7 mmol/L (3.5-5.1)
[2016-09-20] MEDS: ACCU-CHEK XX SCH ×2 (02:00→20:39)
[2016-09-20] MEDS: LEVOTHYROXINE 75 MCG TAB PO SCH (05:24)
[2016-09-20] MEDS: morphine 4 MG/ML VIAL IV PRN (05:25)
[2016-09-20 06:41] LABS: CALCIUM 7.9 mg/dl (8.4-10.2); CREATININE 2.44 mg/dl (0.61-1.24); MAGNESIUM 2.4 mg/dl (1.7-2.5); PHOSPHORUS 5.5 mg/dl (2.5-4.9); POTASSIUM 4.8 mmol/L (3.5-5.1)
[2016-09-20 06:45] LABS: ADD UMIC YES; URINE BILIRUBIN (Dip) NEGATIVE (NEGATIVE); URINE BLOOD (Dip) TRACE (NEGATIVE); URINE COLOR LT. YELLOW (YELLOW); URINE GLUCOSE (Dip) NEGATIVE (NEGATIVE); URINE KETONES (Dip) NEGATIVE (NEGATIVE); URINE LEUKOCYTE ESTERASE (Dip) 2+ (NEGATIVE); URINE NITRITE (Dip) NEGATIVE (NEGATIVE); URINE TOTAL PROTEIN (Dip) TRACE (NEGATIVE); URINE UROBILINOGEN (Dip) 0.2 E.U./dL (0.1-1.0)
[2016-09-20] MEDS: ONDANSETRON 4 MG INJ IV PRN ×2 (07:15→17:36)
[2016-09-20 07:24] LABS: BACTERIA,URINE MANY
[2016-09-20] MEDS: INSULIN ASPART [NOVOLOG] 3 ML PEN SC SCH ×4 (07:59→20:39)
[2016-09-20 08:00] VITALS: BP 166/88; RESP 19
[2016-09-20] MEDS: CHOLECALCIFEROL 1,000 UNIT TAB PO SCH (08:48)
[2016-09-20] MEDS: SEVELAMER 800 MG TAB PO SCH ×3 (08:48→17:15)
[2016-09-20] MEDS: MOXIFLOXACIN 0.5% 3 ML OPH BOTH EYES SCH ×3 (08:49→20:37)
[2016-09-20] MEDS: FAMOTIDINE 20 MG TAB PO SCH (08:49)
[2016-09-20] MEDS: FINASTERIDE 5 MG TAB PO SCH (08:49)
[2016-09-20] MEDS: NIFEdipine (XL) 60 MG TAB PO SCH (08:49)
[2016-09-20] MEDS: ISOSORBIDE DINITRATE 20 MG TAB PO SCH ×3 (08:50→20:39)
[2016-09-20] MEDS: HEPARIN 5,000 UNIT/0.5 ML VIAL SC SCH ×2 (08:51→20:41)
[2016-09-20] MEDS: LINEZOLID 600 MG/D5W (PMX) 300 ML IVPB SCH ×2 (08:52→20:38)
[2016-09-20] MEDS: L ACIDOPHIL/B LACTIS/B LONGUM CAPSULE PO SCH ×2 (08:52→20:38)
[2016-09-20 09:00] VITALS: BP 151/85; PULSE 59
[2016-09-20] MEDS ORDERED: FINASTERIDE 5 MG TAB PO SCH (09:00)
[2016-09-20] MEDS: LORAZEPAM 2 MG INJ IV PRN (09:03)
--- NOTE | 2016-09-20 09:05 | PN ---
Date/Time of Note Date/Time of Note DATE: 09/20/16 TIME: 08:58 Assessment/Plan VTE Prophylaxis VTE Prophylaxis Intervention: heparin Lines/Catheters IV [facility] (from [facility] PICC Line Central line still needed: Yes Urinary Cath still in place: No Assessment/Plan Problems: (1) Chronic pancreatitis Status: Chronic Comment: Noted. Does not appear to be accurate at this time. Please note the possibility of pancreatic exocrine insufficiency would exist in the setting. Qualifiers: Pancreatitis type: alcohol induced Qualified Code: K86.0 - Alcohol- induced chronic pancreatitis (2) Alcoholism Status: Chronic Comment: Presently clean and sober although is been in the hospital long enough there is no risk of him going into DTs at this juncture (3) VRE infection (vancomycin resistant enterococcus), with multi-drug resistance Status: Acute Comment: As per infectious diseases. This is somewhat unusual situation but they have this well in hand. He needs to be continued on antibiotics. (4) MRSA (methicillin resistant staph aureus) culture positive Status: Chronic Comment: He is already had surgery for this in June of this year needs to continue antibiotics with any hope of clearing this. (5) BPH (benign prostatic hypertrophy) with urinary obstruction Status: Chronic Comment: Noted. Continue medication treatment (6) HTN (hypertension) Status: Chronic Comment: Stable on medication treatment Qualifiers: Hypertension type: essential hypertension Qualified Code: I10 - Essential hypertension (7) Hepatitis C, chronic Status: Chronic Comment: Blood and body fluid precaution Qualifiers: Hepatic coma status: without hepatic coma Qualified Code: B18.2 - Chronic hepatitis C without hepatic coma (8) Diskitis Status: Chronic Comment: Continue on antibiotics. Infectious diseases guiding us most kindly. He will need a physical therapy ultimately and will probably need ECF placement Qualifiers: Spinal region: lumbar Qualified Code: M46.46 - Discitis of lumbar region (9) Diabetes mellitus due to underlying condition with diabetic polyneuropathy, with long-term current use of insulin Status: Chronic Comment: Adequate control on the current regimen. Please note given the pancreatitis is quite likely that his beta cell function is burned out he should be insulin treated. Metformin would not have a role here I do not believe Tradjenta would have much of a role here Subjective 24 Hr Interval Summary Free Text/Dictation Patient reports that his back pain is modestly better. He is noting complaints of anxiety. Constitutional: no complaints (Denies fevers chills or sweats) Respiratory: no complaints (No complaints) Cardiovascular: no complaints Gastrointestinal: nausea Exam/Review of Systems Vital Signs Vitals Vital Signs Date Time Temp Pulse Resp B/P Pulse Ox O2 Delivery O2 Flow Rate FiO2 09/20/16 08:00 98.2 59 19 166/88 95 09/16/16 08:00 Nasal Cannula 2.0 Intake and Output 09/19/16 09/19/16 09/20/16 14:59 22:59 06:59 Intake Total 300 ml 920 ml 1250 ml Output Total 1275 ml 1250 ml Balance 300 ml -355 ml 0 ml Exam Constitutional: alert, oriented Neck: non-tender, supple Respiratory: clear to auscultation, normal air movement Cardiovascular: nl pulses, regular rate and rhythm Results Result Diagram: 09/19/16 0440 09/20/16 0453 Results 24 hrs Laboratory Tests Test 09/19/16 11:24 09/19/16 17:00 09/19/16 17:26 09/19/16 22:08 Bedside Glucose 113 79 73 Sodium Level 126 L Potassium Level 4.7 Chloride Level 92 L Carbon Dioxide Level 29 Anion Gap 10 Blood Urea Nitrogen 54 H Creatinine 2.20 H Glucose Level 76 Calcium Level 7.9 L Test 09/19/16 22:38 09/19/16 22:51 09/20/16 00:39 09/20/16 04:53 Bedside Glucose 99 Sodium Level 126 L 127 L Potassium Level 4.7 4.8 Chloride Level 92 L 92 L Carbon Dioxide Level 31 30 Anion Gap 8 10 Blood Urea Nitrogen 54 H 55 H Creatinine 2.37 H 2.44 H Glucose Level 105 72 Calcium Level 7.8 L 7.9 L Urine Color LT. YELLOW Urine Clarity CLOUDY H Urine pH 6.0 Urine Specific [place] 1.010 Urine Ketones NEGATIVE Urine Nitrite NEGATIVE Urine Bilirubin NEGATIVE Urine Urobilinogen 0.2 E.U./dL Urine Leukocyte Esterase 2+ H Urine Microscopic RBC 2-5 Urine Microscopic WBC 25-50 Urine Epithelial Cells OCCASIONAL Urine Bacteria MANY Urine Hemoglobin TRACE Urine Osmolality 223 L Urine Random Sodium 68 Urine Glucose NEGATIVE Urine Total Protein TRACE Phosphorus Level 5.5 H Magnesium Level 2.4 Test 09/20/16 07:56 Bedside Glucose 83 Medications Medications Current Medications Finasteride (Proscar) 5 mg DAILY PO Last administered on 09/19/16 09:02; Admin Dose 5 MG; Start 09/02/16 at 09:00 Oxycodone/ Acetaminophen (Percocet (5/ 325)) maximum total acetaminop... Q4 PRN PO PAIN LEVEL 1-5 Last administered on 09/14/16 17:57; Admin Dose 1 TAB; Start 09/01/16 at 23:00 Simethicone (Mylicon) 80 mg Q6H PRN PO DISTENSION/GAS/BLOATING Last administered on 09/17/16 21:03; Admin Dose 80 MG; Start 09/01/16 at 23:00 Tamsulosin HCl (Flomax) 0.4 mg QHS PO Last administered on 09/19/16 21:54; Admin Dose 0.4 MG; Start 09/02/16 at 21:00 Heparin Sodium (Porcine) (Heparin (5000 Units/0.5 ml)) 5,000 unit Q12 SC Last administered on 09/19/16 21:55; Admin Dose 5,000 UNIT; Start 09/02/16 at 09:00 ; Status Future hold Morphine Sulfate (morphine) 3 mg Q4H PRN IV PAIN LEVEL 6-10 Last administered on 09/20/16 05:25; Admin Dose 3 MG; Start 09/01/16 at 23:30 Ondansetron HCl (Zofran Inj) 4 mg Q6H PRN IV NAUSEA AND/OR VOMITING Last administered on 09/20/16 07:15; Admin Dose 4 MG; Start 09/01/16 at 23:30 Diagnostic Test (Pha) (Accu-Chek) 1 ea 02 XX ; Start 09/02/16 at 02:00 Isosorbide Dinitrate (Isordil) 20 mg TID PO Last administered on 09/19/16 21: 54; Admin Dose 20 MG; Start 09/01/16 at 23:00 Miscellaneous Information 1 ea NOTE XX ; Start 09/01/16 at 23:30 Glucose (Glutose) 15 gm Q15M PRN PO DECREASED GLUCOSE; Start 09/01/16 at 23:30 Glucose (Glutose) 22.5 gm Q15M PRN PO DECREASED GLUCOSE; Start 09/01/16 at 23: 30 Dextrose (D50w Syringe) 25 ml Q15M PRN IV DECREASED GLUCOSE; Start 09/01/16 at 23:30 Dextrose (D50w Syringe) 50 ml Q15M PRN IV DECREASED GLUCOSE; Start 09/01/16 at 23:30 Glucagon (Glucagen) 1 mg Q15M PRN IM DECREASED GLUCOSE; Start 09/01/16 at 23:30 Glucose (Glutose) 15 gm Q15M PRN BUCCAL DECREASED GLUCOSE; Start 09/01/16 at 23 :30 Famotidine (Pepcid) 20 mg DAILY PO Last administered on 09/19/16 09:02; Admin Dose 20 MG; Start 09/04/16 at 09:00 Levothyroxine Sodium (Synthroid) 75 mcg DAILY@06 PO Last administered on 05:24; Admin Dose 75 MCG; Start 09/08/16 at 06:00 Cholecalciferol (Vitamin D) 1,000 unit DAILY PO Last administered on 09/19/16 09:02; Admin Dose 1,000 UNIT; Start 09/07/16 at 12:30 Lactobacillus Acidophilus (Florajen3 Capsule) 1 each BID PO Last administered on 09/19/16 21:55; Admin Dose 1 EACH; Start 09/09/16 at 21:00 Lorazepam (Ativan) 1 mg Q6H PRN IV Anxiety Last administered on 09/19/16 09:01 ; Admin Dose 1 MG; Start 09/10/16 at 11:30 Lactulose (Enulose) 30 gm BID PRN PO CONSTIPATION; Start 09/16/16 at 11:30 Nifedipine 60 mg 60 mg DAILY PO Last administered on 09/19/16 09:04; Admin Dose 60 MG; Start 09/17/16 at 09:00 Linezolid (Zyvox 600mg/D5W (Pmx)) 300 ml @ 300 mls/hr Q12 IVPB Last administered on 09/19/16 22:06; Admin Dose 300 MLS/HR; Start 09/16/16 at 14:30 Moxifloxacin HCl (Vigamox) 1 drop TID BOTH EYES Last administered on 09/19/16 16:36; Admin Dose 1 DROP; Start 09/18/16 at 21:30 Hydralazine HCl (Apresoline) 25 mg TID PO Last administered on 09/19/16 21:55 ; Admin Dose 25 MG; Start 09/19/16 at 09:00 Hydralazine HCl (Apresoline) 10 mg Q4H PRN IV ELEVATED SYSTOLIC BP Last administered on 09/19/16t 17:39; Admin Dose 10 MG; Start 09/19/16 at 01:00 Furosemide (Lasix) 40 mg DAILY PO ; Start 09/20/16 at 09:00; Status Future Hold BELEN ROSALES MD Sep 20, 2016 09:05
[2016-09-20 12:06] VITALS: BP 166/92; PULSE 54
[2016-09-20 13:30] VITALS: BP 142/78; PULSE 55
--- NOTE | 2016-09-20 19:33 | RADRPT ---
PROCEDURE: XR Abdomen. CLINICAL INDICATION: Abdomen pain. TECHNIQUE: AP supine abdomen x-ray. COMPARISON: 09/18/2016. FINDINGS: The bowel gas pattern is normal with no evidence of obstruction. There are pancreatic calcifications. There are no abnormal calcifications overlying the urinary tracts. The osseus structures are unremarkable. IMPRESSION: 1. No evidence of bowel obstruction. 2. Pancreatic calcifications. 3. Otherwise unremarkable abdomen radiograph. RPTAT: QQ .Umang Dale MD, MD Date Time Electronically viewed and signed by .Umang Dale MD, MD on 09/20/2016 19:33 .R/
[2016-09-20 20:09] VITALS: BP 180/96; RESP 18
[2016-09-20] MEDS: TAMSULOSIN (SR) 0.4 MG CAP PO SCH (20:38)
--- NOTE | 2016-09-20 22:29 | CONS ---
Date/Time of Note Date/Time of Note DATE: 09/20/16 TIME: 22:22 Assessment/Plan Assessment/Plan Chief Complaint/Hosp Course ID PROGRESS NOTE CURRENT ABX=> ZYVOX #5 + Moxifloxacin for VRE (SEE LITERATURE REVIEW BOTTOM OF NOTE) + GENT Opth Gtt=>DC'd DC Vanco Opth Gtt -> 09/19 24H INTERVAL SUMMARY * Overall improved, still has eye pain, erythema, improved. Periorbital edema has resolved, Blepharitis resolved with warm compress and eye care. * Persisting conjunctivitis -VRE is difficult to treat -- Started on Zyvox + Moxifloxacin for VRE * s/p fall -- x-rays negative * No fevers, PermCath DC'd with renal recovery, no plans for HD PHYSICAL EXAMINATION: GENERAL:VSS, NAD HEENT: Eyes closed w/mild eyelid erythema/puffy edema, no crust, no drainage seen NECK: Supple, trachea midline. 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 S/P Fall 09/18/16 w/minor head trauma & BLEXT Knee pain -> Patient with limited vision DM retinopathy, got OOB-> BRP without assist, did not put on safety socks with saw sharpener, slipped on his own urine and fell prior to 1300 * CT head (+)Mild scalp edema * Bilateral knees (-) Fx 2. R conjunctivitis =>mild eyelid erythema/puffy edema, no crust, no drainage seen after order for blepharitis care * EYE CULTURE Final Organism 1 VANCO RESISTANT ENTEROCOCCUS Organism 2 COAGULASE NEGATIVE STAPH Organism 3 CORYNEBACTER JEIKEIUM (GRP JK) 4. ABD gaseous distension w/constipation - DDx ileus 5. 3. S/p urinary tract infection. URINE CULTURE Final Organism 1 MIGUELITO GLABRATA COLONY COUNT >100,000 CFU/ml Organism 2 ENTEROBACTER AEROGENES COLONY COUNT 10,000 - 20,000 CFU/ml 6. Diabetes w/complication of DM Polyneuropathies: retinopathy, nephropathy, peripheral neuropathy 7. History of left otomastoiditis=> CT w/ Complete left mastoid air cell effusions. 8. Acute Renal Failure/CKD => RENAL RECOVERY ACHIEVED , w/removal of PermCath -- no plans for near future HD 9. Hypertension. 10. Mild cerebral vascular ischemic changes/atrophy on CT head (-)MRSA Nares -> 08/06/16 INVASIVES: PIV ABX ALLERGY: KNDA CURRENT ABX: =>Vanco Opth Gtt + GENT Opth Gtt + ZYVOX #4 ID RECOMMENDATIONS Persisting conjunctivitis -VRE is difficult to treat -- Started on Zyvox + Moxifloxacin for VRE * Will follow up tomorrow see if conjunctivitis has responded * PermCath DC'd with renal recovery, no plans for HD LITERATURE REVIEW ON VRE OCULAR INFECTION https://www.ncbi.nlm.nih.gov/pubmed/34319467 A case of vancomycin-resistant enterococcus conjunctivitis and its clinically successful topical treatment. Joshua Hudson MA. PURPOSE: To describe what is, to our knowledge, the first documented case of vancomycin- resistant enterococcus (VRE) conjunctivitis and its successful topical treatment. METHODS: A 79-year-old white man with end-stage multiple myeloma was hospitalized for congestive heart failure and pneumonia. During hospitalization, the patient developed conjunctivitis. Cultures of the eye were directly plated into several media. The bacterium was tested for antibiotic minimum inhibitory concentration (BERT) with the Clinical and Laboratory Standards [place] (CLSI) method. RESULTS: Culture of the affected eye grew Enterococcus faecalis resistant to vancomycin. Topical treatment with moxifloxacin 0.5% (Vigamox; [place], [place], [place]) resulted in clinical resolution despite a BERT showing resistance. CONCLUSION: Clinical resolution of VRE conjunctivitis was shown with topical moxifloxacin therapy in this case. At the same time, we suggest the use of combined topical and systemic Problems: Consultation Date/Type/Reason Admit Date/Time Sep 01, 2016 at 17:29 Type of Consultation: ID Exam/Review of Systems Vital Signs Vitals Vital Signs Date Time Temp Pulse Resp B/P Pulse Ox O2 Delivery O2 Flow Rate FiO2 09/20/16 20:09 98.0 61 18 180/96 99 09/20/16 09:00 Nasal Cannula 2.0 Intake and Output 09/19/16 09/19/16 09/20/16 15:00 23:00 07:00 Intake Total 300 ml 920 ml 1250 ml Output Total 1275 ml 1250 ml Balance 300 ml -355 ml 0 ml Results Result Diagram: 09/19/16 0440 09/20/16 0453 Results 24 hrs Laboratory Tests Test 09/19/16 22:38 09/19/16 22:51 09/20/16 00:39 09/20/16 04:53 Bedside Glucose 99 Sodium Level 126 L 127 L Potassium Level 4.7 4.8 Chloride Level 92 L 92 L Carbon Dioxide Level 31 30 Anion Gap 8 10 Blood Urea Nitrogen 54 H 55 H Creatinine 2.37 H 2.44 H Glucose Level 105 72 Calcium Level 7.8 L 7.9 L Urine Color LT. YELLOW Urine Clarity CLOUDY H Urine pH 6.0 Urine Specific [place] 1.010 Urine Ketones NEGATIVE Urine Nitrite NEGATIVE Urine Bilirubin NEGATIVE Urine Urobilinogen 0.2 E.U./dL Urine Leukocyte Esterase 2+ H Urine Microscopic RBC 2-5 Urine Microscopic WBC 25-50 Urine Epithelial Cells OCCASIONAL Urine Bacteria MANY Urine Hemoglobin TRACE Urine Osmolality 223 L Urine Random Sodium 68 Urine Glucose NEGATIVE Urine Total Protein TRACE Phosphorus Level 5.5 H Magnesium Level 2.4 Test 09/20/16 07:56 09/20/16 11:39 09/20/16 17:13 09/20/16 20:36 Bedside Glucose 83 83 74 72 Medications Medications Current Medications Finasteride (Proscar) 5 mg DAILY PO Last administered on 09/20/16t 08:49; Admin Dose 5 MG; Start 09/02/16 at 09:00 Oxycodone/ Acetaminophen (Percocet (5/ 325)) maximum total acetaminop... Q4 PRN PO PAIN LEVEL 1-5 Last administered on 09/14/16 17:57; Admin Dose 1 TAB; Start 09/01/16 at 23:00 Simethicone (Mylicon) 80 mg Q6H PRN PO DISTENSION/GAS/BLOATING Last administered on 09/17/16 21:03; Admin Dose 80 MG; Start 09/01/16 at 23:00 Tamsulosin HCl (Flomax) 0.4 mg QHS PO Last administered on 09/20/16 20:38; Admin Dose 0.4 MG; Start 09/02/16 at 21:00 Heparin Sodium (Porcine) (Heparin (5000 Units/0.5 ml)) 5,000 unit Q12 SC Last administered on 09/20/16 20:41; Admin Dose 5,000 UNIT; Start 09/02/16 at 09:00 ; Status Future hold Morphine Sulfate (morphine) 3 mg Q4H PRN IV PAIN LEVEL 6-10 Last administered on 09/20/16 05:25; Admin Dose 3 MG; Start 09/01/16 at 23:30 Ondansetron HCl (Zofran Inj) 4 mg Q6H PRN IV NAUSEA AND/OR VOMITING Last administered on 09/20/16 17:36; Admin Dose 4 MG; Start 09/01/16 at 23:30 Diagnostic Test (Pha) (Accu-Chek) 1 ea 02 XX ; Start 09/02/16 at 02:00 Isosorbide Dinitrate (Isordil) 20 mg TID PO Last administered on 09/20/16 20: 39; Admin Dose 20 MG; Start 09/01/16 at 23:00 Miscellaneous Information 1 ea NOTE XX ; Start 09/01/16 at 23:30 Glucose (Glutose) 15 gm Q15M PRN PO DECREASED GLUCOSE; Start 09/01/16 at 23:30 Glucose (Glutose) 22.5 gm Q15M PRN PO DECREASED GLUCOSE; Start 09/01/16 at 23: 30 Dextrose (D50w Syringe) 25 ml Q15M PRN IV DECREASED GLUCOSE; Start 09/01/16 at 23:30 Dextrose (D50w Syringe) 50 ml Q15M PRN IV DECREASED GLUCOSE; Start 09/01/16 at 23:30 Glucagon (Glucagen) 1 mg Q15M PRN IM DECREASED GLUCOSE; Start 09/01/16 at 23:30 Glucose (Glutose) 15 gm Q15M PRN BUCCAL DECREASED GLUCOSE; Start 09/01/16 at 23 :30 Famotidine (Pepcid) 20 mg DAILY PO Last administered on 09/20/16 08:49; Admin Dose 20 MG; Start 09/04/16 at 09:00 Levothyroxine Sodium (Synthroid) 75 mcg DAILY@06 PO Last administered on 05:24; Admin Dose 75 MCG; Start 09/08/16 at 06:00 Cholecalciferol (Vitamin D) 1,000 unit DAILY PO Last administered on 09/20/16 08:48; Admin Dose 1,000 UNIT; Start 09/07/16 at 12:30 Lactobacillus Acidophilus (Florajen3 Capsule) 1 each BID PO Last administered on 09/20/16 20:38; Admin Dose 1 EACH; Start 09/09/16 at 21:00 Lorazepam (Ativan) 1 mg Q6H PRN IV Anxiety Last administered on 09/20/16 09:03 ; Admin Dose 1 MG; Start 09/10/16 at 11:30 Lactulose (Enulose) 30 gm BID PRN PO CONSTIPATION; Start 09/16/16 at 11:30 Nifedipine 60 mg 60 mg DAILY PO Last administered on 09/20/16 08:49; Admin Dose 60 MG; Start 09/17/16 at 09:00 Linezolid (Zyvox 600mg/D5W (Pmx)) 300 ml @ 300 mls/hr Q12 IVPB Last administered on 09/20/16 20:38; Admin Dose 300 MLS/HR; Start 09/16/16 at 14:30 Moxifloxacin HCl (Vigamox) 1 drop TID BOTH EYES Last administered on 09/20/16 20:37; Admin Dose 1 DROP; Start 09/18/16 at 21:30 Hydralazine HCl (Apresoline) 25 mg TID PO Last administered on 09/20/16 20:38 ; Admin Dose 25 MG; Start 09/19/16 at 09:00 Hydralazine HCl (Apresoline) 10 mg Q4H PRN IV ELEVATED SYSTOLIC BP Last administered on 09/19/16 17:39; Admin Dose 10 MG; Start 09/19/16 at 01:00 Furosemide (Lasix) 40 mg DAILY PO ; Start 09/20/16 at 09:00; Status Future Hold JAMIR SERNA NP Sep 20, 2016 22:29
[2016-09-20] MEDS: hydrALAzine 20 MG INJ IV PRN (23:33)
[2016-09-20 23:54] VITALS: BP 157/82; PULSE 60
[2016-09-21] MEDS: ONDANSETRON 4 MG INJ IV PRN ×2 (01:09→16:45)
[2016-09-21] MEDS: LORAZEPAM 2 MG INJ IV PRN ×2 (01:12→20:49)
[2016-09-21] MEDS: morphine 4 MG/ML VIAL IV PRN ×3 (04:05→12:21)
[2016-09-21] MEDS: LEVOTHYROXINE 75 MCG TAB PO SCH (05:34)
[2016-09-21] MEDS: SEVELAMER 800 MG TAB PO SCH ×3 (07:58→16:54)
[2016-09-21 08:00] VITALS: BP 153/76; RESP 20
[2016-09-21] MEDS: INSULIN ASPART [NOVOLOG] 3 ML PEN SC SCH ×4 (08:00→20:35)
--- NOTE | 2016-09-21 08:23 | CONS ---
Date/Time of Note Date/Time of Note DATE: 09/21/16 TIME: 08:21 Consult Date/Type/Reason Admit Date/Time Sep 01, 2016 at 17:29 Initial Consult Date Type of Consultation: nephrology Subjective all noted good uop. pe: HEENT: Eyes closed w/mild eyelid erythema/puffy edema, no crust, no drainage seen NECK: Supple, trachea midline. CHEST: Rise symmetrical, without dyspnea on observation HEART: Pulse RRR ABDOMEN: soft EXTREMITIES: Warm Objective Vital Signs Date Time Temp Pulse Resp B/P Pulse Ox O2 Delivery O2 Flow Rate FiO2 09/20/16 23:54 60 157/82 09/20/16 22:38 Nasal Cannula 2.0 09/20/16 20:09 98.0 18 99 Intake and Output 09/20/16 09/20/16 09/21/16 15:00 23:00 07:00 Intake Total 300 ml 1200 ml 300 ml Output Total 1100 ml 550 ml Balance 300 ml 100 ml -250 ml Results/Medications Result Diagram: 09/19/16 0440 09/20/16 0453 Results 24 hrs Laboratory Tests Test 09/20/16 11:39 09/20/16 17:13 09/20/16 20:36 09/21/16 08:05 Bedside Glucose 83 74 72 64 L Medications Current Medications Finasteride (Proscar) 5 mg DAILY PO Last administered on 09/20/16 08:49; Admin Dose 5 MG; Start 09/02/16 at 09:00 Oxycodone/ Acetaminophen (Percocet (5/ 325)) maximum total acetaminop... Q4 PRN PO PAIN LEVEL 1-5 Last administered on 09/14/16 17:57; Admin Dose 1 TAB; Start 09/01/16 at 23:00 Simethicone (Mylicon) 80 mg Q6H PRN PO DISTENSION/GAS/BLOATING Last administered on 09/17/16 21:03; Admin Dose 80 MG; Start 09/01/16 at 23:00 Tamsulosin HCl (Flomax) 0.4 mg QHS PO Last administered on 09/20/16 20:38; Admin Dose 0.4 MG; Start 09/02/16 at 21:00 Heparin Sodium (Porcine) (Heparin (5000 Units/0.5 ml)) 5,000 unit Q12 SC Last administered on 09/20/16 20:41; Admin Dose 5,000 UNIT; Start 09/02/16 at 09:00 ; Status Future hold Morphine Sulfate (morphine) 3 mg Q4H PRN IV PAIN LEVEL 6-10 Last administered on 09/21/16 07:58; Admin Dose 3 MG; Start 09/01/16 at 23:30 Ondansetron HCl (Zofran Inj) 4 mg Q6H PRN IV NAUSEA AND/OR VOMITING Last administered on 09/21/16 01:09; Admin Dose 4 MG; Start 09/01/16 at 23:30 Diagnostic Test (Pha) (Accu-Chek) 1 ea 02 XX ; Start 09/02/16 at 02:00 Isosorbide Dinitrate (Isordil) 20 mg TID PO Last administered on 09/20/16 20: 39; Admin Dose 20 MG; Start 09/01/16 at 23:00 Miscellaneous Information 1 ea NOTE XX ; Start 09/01/16 at 23:30 Glucose (Glutose) 15 gm Q15M PRN PO DECREASED GLUCOSE; Start 09/01/16 at 23:30 Glucose (Glutose) 22.5 gm Q15M PRN PO DECREASED GLUCOSE; Start 09/01/16 at 23: 30 Dextrose (D50w Syringe) 25 ml Q15M PRN IV DECREASED GLUCOSE; Start 09/01/16 at 23:30 Dextrose (D50w Syringe) 50 ml Q15M PRN IV DECREASED GLUCOSE; Start 09/01/16 at 23:30 Glucagon (Glucagen) 1 mg Q15M PRN IM DECREASED GLUCOSE; Start 09/01/16 at 23:30 Glucose (Glutose) 15 gm Q15M PRN BUCCAL DECREASED GLUCOSE; Start 09/01/16 at 23 :30 Famotidine (Pepcid) 20 mg DAILY PO Last administered on 09/20/16 08:49; Admin Dose 20 MG; Start 09/04/16 at 09:00 Levothyroxine Sodium (Synthroid) 75 mcg DAILY@06 PO Last administered on 05:34; Admin Dose 75 MCG; Start 09/08/16 at 06:00 Cholecalciferol (Vitamin D) 1,000 unit DAILY PO Last administered on 09/20/16 08:48; Admin Dose 1,000 UNIT; Start 09/07/16 at 12:30 Lactobacillus Acidophilus (Florajen3 Capsule) 1 each BID PO Last administered on 09/20/16 20:38; Admin Dose 1 EACH; Start 09/09/16 at 21:00 Lorazepam (Ativan) 1 mg Q6H PRN IV Anxiety Last administered on 09/21/16 01:12 ; Admin Dose 1 MG; Start 09/10/16 at 11:30 Lactulose (Enulose) 30 gm BID PRN PO CONSTIPATION; Start 09/16/16 at 11:30 Nifedipine 60 mg 60 mg DAILY PO Last administered on 09/20/16 08:49; Admin Dose 60 MG; Start 09/17/16 at 09:00 Linezolid (Zyvox 600mg/D5W (Pmx)) 300 ml @ 300 mls/hr Q12 IVPB Last administered on 09/20/16 20:38; Admin Dose 300 MLS/HR; Start 09/16/16 at 14:30 Moxifloxacin HCl (Vigamox) 1 drop TID BOTH EYES Last administered on 09/20/16 20:37; Admin Dose 1 DROP; Start 09/18/16 at 21:30 Hydralazine HCl (Apresoline) 25 mg TID PO Last administered on 09/20/16 20:38 ; Admin Dose 25 MG; Start 09/19/16 at 09:00 Hydralazine HCl (Apresoline) 10 mg Q4H PRN IV ELEVATED SYSTOLIC BP Last administered on 09/20/16 23:33; Admin Dose 10 MG; Start 09/19/16 at 01:00 Furosemide (Lasix) 40 mg DAILY PO ; Start 09/20/16 at 09:00; Status Future Hold Assessment/Plan Chief Complaint/Hosp Course 1. Nonoliguric acute kidney injury on top of chronic kidney disease stage IV with previous baseline creatinine around 3 mg/dL. Etiology of acute kidney injury is secondary to acute tubular necrosis. The patient is status post hemodialysis, no longer hemodialysis depended. At this point, continue current treatment plan, supportive care, renally dose all meds, and monitor renal function closely. 2. Hyponatremia likely multifactorial from candido, chronic kidney disease, and low solute intake, causing decreased free water urinary excretion. The patient has been on liquid diet with poor solute intake. Plan to monitor serial sodium levels. Will repeat u/a. urine lytes, will hold diuretics. Limit free water intake. If sodium levels continue to decline would give a fluid challenge. Monitor closely. 3. Volume overload. The patient is clinically improving, near euvolemic. Will deescalate Lasix 4. Hypertension. Continue current blood pressure regimen. 5. Anemia. Continue to monitor H and H levels. We will give Epogen as needed. 6. Diabetes. Continue current insulin regimen. 7. Benign prostatic hypertrophy. Continue medical management. 8. Right eye conjunctivitis. The patient is clinically improving. Continue current treatment plan. Problems: PANTERA GONZALEZ MD Sep 21, 2016 08:23
[2016-09-21] MEDS: CHOLECALCIFEROL 1,000 UNIT TAB PO SCH (09:00)
[2016-09-21] MEDS: NIFEdipine (XL) 60 MG TAB PO SCH (09:00)
[2016-09-21] MEDS: MOXIFLOXACIN 0.5% 3 ML OPH BOTH EYES SCH ×3 (09:00→20:33)
[2016-09-21] MEDS: FAMOTIDINE 20 MG TAB PO SCH (09:01)
[2016-09-21] MEDS: ISOSORBIDE DINITRATE 20 MG TAB PO SCH ×3 (09:01→20:34)
[2016-09-21] MEDS: FINASTERIDE 5 MG TAB PO SCH (09:01)
[2016-09-21] MEDS: HEPARIN 5,000 UNIT/0.5 ML VIAL SC SCH ×2 (09:02→20:36)
[2016-09-21] MEDS: LINEZOLID 600 MG/D5W (PMX) 300 ML IVPB SCH ×2 (09:03→20:33)
--- NOTE | 2016-09-21 10:24 | PN ---
Date/Time of Note Date/Time of Note DATE: 09/21/16 TIME: 10:18 Assessment/Plan VTE Prophylaxis VTE Prophylaxis Intervention: heparin Lines/Catheters IV [facility]ter Type (from [facility]): PICC Line Central line still needed: Yes Urinary Cath still in place: No Assessment/Plan Problems: (1) Onychomycosis due to dermatophyte Status: Acute Comment: Consider pulse therapy with Lamisil as per ID (2) Hypothyroidism (acquired) Status: Chronic Comment: On stable replacement dose (3) Hepatitis C, chronic Status: Chronic Comment: Noted blood and body fluid precaution Qualifiers: Hepatic coma status: without hepatic coma Qualified Code: B18.2 - Chronic hepatitis C without hepatic coma (4) HTN (hypertension) Status: Chronic Comment: Not quite adequate control with current medication regimen. Transition tamsulosin over to a more traditional alpha-cheli which will also lower blood pressure Qualifiers: Hypertension type: essential hypertension Qualified Code: I10 - Essential hypertension (5) Diabetes mellitus type 1, controlled Status: Chronic Comment: Patient with multiple complications including neuropathy nephropathy and retinopathy. Control is adequate at the present time. Please note we suspect that this is partially burned out pancreatic function as opposed a lot of due to the chronic pancreatitis. He should be treated as a type I Qualifiers: Diabetes mellitus complication status: with ophthalmic complications Diabetes mellitus complication detail: with diabetic retinopathy Diabetic retinopathy severity: with mild nonproliferative retinopathy Diabetes mellitus macular edema: without macular edema Laterality: bilateral Qualified Code: E10.3293 - Controlled type 1 diabetes mellitus with both eyes affected by mild nonproliferative retinopathy without macular edema (6) Alcoholism Status: Chronic Comment: Control due to prolonged hospitalization (7) VRE infection (vancomycin resistant enterococcus), with multi-drug resistance Status: Acute Comment: As per ID. With a conjunctivitis/blepharitis this is tricky to treat. Hope for the best (8) MRSA (methicillin resistant staph aureus) culture positive Status: Chronic Comment: Patient had MRSA osteomyelitis/discitis. Remains on appropriate antibiotics for this. (9) Retinal detachment Status: Acute Comment: Noted Qualifiers: Laterality: left Qualified Code: H33.22 - Retinal detachment, left Subjective 24 Hr Interval Summary Free Text/Dictation Patient resting in bed easily aroused Constitutional: no complaints (No fever chills or sweats) Respiratory: no complaints Cardiovascular: no complaints Exam/Review of Systems Vital Signs Vitals Vital Signs Date Time Temp Pulse Resp B/P Pulse Ox O2 Delivery O2 Flow Rate FiO2 09/21/16 08:00 97.5 52 20 153/76 96 09/20/16 22:38 Nasal Cannula 2.0 Intake and Output 09/20/16 09/20/16 09/21/16 15:00 23:00 07:00 Intake Total 300 ml 1200 ml 300 ml Output Total 1100 ml 550 ml Balance 300 ml 100 ml -250 ml Exam Constitutional: alert, oriented Respiratory: clear to auscultation, normal air movement Cardiovascular: nl pulses, regular rate and rhythm Gastrointestinal: nl liver, spleen, non-tender, soft Extremities: other (Onychomycosis) Results Result Diagram: 09/19/16 0440 09/20/16 0453 Results 24 hrs Laboratory Tests Test 09/20/16 11:39 09/20/16 17:13 09/20/16 20:36 09/21/16 08:05 Bedside Glucose 83 74 72 64 L Test 09/21/16 08:31 Bedside Glucose 79 Medications Medications Current Medications Finasteride (Proscar) 5 mg DAILY PO Last administered on 09/21/16 09:01; Admin Dose 5 MG; Start 09/02/16 at 09:00 Oxycodone/ Acetaminophen (Percocet (5/ 325)) maximum total acetaminop... Q4 PRN PO PAIN LEVEL 1-5 Last administered on 09/14/16 17:57; Admin Dose 1 TAB; Start 09/01/16 at 23:00 Simethicone (Mylicon) 80 mg Q6H PRN PO DISTENSION/GAS/BLOATING Last administered on 09/17/16 21:03; Admin Dose 80 MG; Start 09/01/16 at 23:00 Tamsulosin HCl (Flomax) 0.4 mg QHS PO Last administered on 09/20/16 20:38; Admin Dose 0.4 MG; Start 09/02/16 at 21:00 Heparin Sodium (Porcine) (Heparin (5000 Units/0.5 ml)) 5,000 unit Q12 SC Last administered on 09/21/16 09:02; Admin Dose 5,000 UNIT; Start 09/02/16 at 09:00 ; Status Future hold Morphine Sulfate (morphine) 3 mg Q4H PRN IV PAIN LEVEL 6-10 Last administered on 09/21/16 07:58; Admin Dose 3 MG; Start 09/01/16 at 23:30 Ondansetron HCl (Zofran Inj) 4 mg Q6H PRN IV NAUSEA AND/OR VOMITING Last administered on 09/21/16 01:09; Admin Dose 4 MG; Start 09/01/16 at 23:30 Diagnostic Test (Pha) (Accu-Chek) 1 ea 02 XX ; Start 09/02/16 at 02:00 Isosorbide Dinitrate (Isordil) 20 mg TID PO Last administered on 09/21/16 09: 01; Admin Dose 20 MG; Start 09/01/16 at 23:00 Miscellaneous Information 1 ea NOTE XX ; Start 09/01/16 at 23:30 Glucose (Glutose) 15 gm Q15M PRN PO DECREASED GLUCOSE; Start 09/01/16 at 23:30 Glucose (Glutose) 22.5 gm Q15M PRN PO DECREASED GLUCOSE; Start 09/01/16 at 23: 30 Dextrose (D50w Syringe) 25 ml Q15M PRN IV DECREASED GLUCOSE; Start 09/01/16 at 23:30 Dextrose (D50w Syringe) 50 ml Q15M PRN IV DECREASED GLUCOSE; Start 09/01/16 at 23:30 Glucagon (Glucagen) 1 mg Q15M PRN IM DECREASED GLUCOSE; Start 09/01/16 at 23:30 Glucose (Glutose) 15 gm Q15M PRN BUCCAL DECREASED GLUCOSE; Start 09/01/16 at 23 :30 Famotidine (Pepcid) 20 mg DAILY PO Last administered on 09/21/16 09:01; Admin Dose 20 MG; Start 09/04/16 at 09:00 Levothyroxine Sodium (Synthroid) 75 mcg DAILY@06 PO Last administered on 05:34; Admin Dose 75 MCG; Start 09/08/16 at 06:00 Cholecalciferol (Vitamin D) 1,000 unit DAILY PO Last administered on 09/21/16 09:00; Admin Dose 1,000 UNIT; Start 09/07/16 at 12:30 Lactobacillus Acidophilus (Florajen3 Capsule) 1 each BID PO Last administered on 09/20/16 20:38; Admin Dose 1 EACH; Start 09/09/16 at 21:00 Lorazepam (Ativan) 1 mg Q6H PRN IV Anxiety Last administered on 09/21/16 01:12 ; Admin Dose 1 MG; Start 09/10/16 at 11:30 Lactulose (Enulose) 30 gm BID PRN PO CONSTIPATION; Start 09/16/16 at 11:30 Nifedipine 60 mg 60 mg DAILY PO Last administered on 09/21/16 09:00; Admin Dose 60 MG; Start 09/17/16 at 09:00 Linezolid (Zyvox 600mg/D5W (Pmx)) 300 ml @ 300 mls/hr Q12 IVPB Last administered on 09/21/16 09:03; Admin Dose 300 MLS/HR; Start 09/16/16 at 14:30 Moxifloxacin HCl (Vigamox) 1 drop TID BOTH EYES Last administered on 09/20/16 20:37; Admin Dose 1 DROP; Start 09/18/16 at 21:30 Hydralazine HCl (Apresoline) 25 mg TID PO Last administered on 09/21/16 09:01 ; Admin Dose 25 MG; Start 09/19/16 at 09:00 Hydralazine HCl (Apresoline) 10 mg Q4H PRN IV ELEVATED SYSTOLIC BP Last administered on 09/20/16 23:33; Admin Dose 10 MG; Start 09/19/16 at 01:00 Furosemide (Lasix) 40 mg DAILY PO ; Start 09/20/16 at 09:00; Status Future Hold BELEN ROSALES MD Sep 21, 2016 10:24
[2016-09-21] MEDS: L ACIDOPHIL/B LACTIS/B LONGUM CAPSULE PO SCH ×2 (12:15→20:34)
--- NOTE | 2016-09-21 17:39 | CONS ---
Date/Time of Note Date/Time of Note DATE: 09/21/16 TIME: 17:32 Assessment/Plan Assessment/Plan Chief Complaint/Hosp Course ID PROGRESS NOTE CURRENT ABX=> ZYVOX #6 + Moxifloxacin for VRE (SEE LITERATURE REVIEW BOTTOM OF NOTE) + GENT Opth Gtt=>DC'd DC Vanco Opth Gtt -> 09/19 24H INTERVAL SUMMARY * Today his eyelids are more puffy than last 2-days w/increased naif-orbital edema and recurrent right blepharitis crust * On the bright side, the conjunctival erythema looks as if it is retreating and he tells me the eye pain is "better" * Persisting conjunctivitis -VRE is difficult to treat -- Started on Zyvox + Moxifloxacin for VRE * s/p fall -- x-rays negative * No fevers, PermCath DC'd with renal recovery, no plans for HD PHYSICAL EXAMINATION: GENERAL:VSS, NAD HEENT: Eyes closed w/mild eyelid erythema/puffy edema, no crust, no drainage seen NECK: Supple, trachea midline. 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 S/P Fall 09/18/16 w/minor head trauma & BLEXT Knee pain -> Patient with limited vision DM retinopathy, got OOB-> BRP without assist, did not put on safety socks with field evidence technician, slipped on his own urine and fell prior to 1300 * CT head (+)Mild scalp edema * Bilateral knees (-) Fx 2. R conjunctivitis =>mild eyelid erythema/puffy edema, no crust, no drainage seen after order for blepharitis care * EYE CULTURE Final Organism 1 VANCO RESISTANT ENTEROCOCCUS Organism 2 COAGULASE NEGATIVE STAPH Organism 3 CORYNEBACTER JEIKEIUM (GRP JK) 4. ABD gaseous distension w/constipation - DDx ileus 5. 3. S/p urinary tract infection. URINE CULTURE Final Organism 1 MIGUELITO GLABRATA COLONY COUNT >100,000 CFU/ml Organism 2 ENTEROBACTER AEROGENES COLONY COUNT 10,000 - 20,000 CFU/ml 6. Diabetes w/complication of DM Polyneuropathies: retinopathy, nephropathy, peripheral neuropathy 7. History of left otomastoiditis=> CT w/ Complete left mastoid air cell effusions. 8. Acute Renal Failure/CKD => RENAL RECOVERY ACHIEVED , w/removal of PermCath -- no plans for near future HD 9. Hypertension. 10. Mild cerebral vascular ischemic changes/atrophy on CT head (-)MRSA Nares -> 08/06/16 INVASIVES: PIV ABX ALLERGY: KNDA CURRENT ABX: =>Vanco Opth Gtt + GENT Opth Gtt + ZYVOX #4 ID RECOMMENDATIONS Persisting conjunctivitis -VRE is difficult to treat -- Started on Zyvox + Moxifloxacin for VRE * Have asked nursing to resume warm compress and warm H20 + baby shampoo gauze wash to remove blepharitis crust * PermCath DC'd with renal recovery, no plans for HD LITERATURE REVIEW ON VRE OCULAR INFECTION https://www.ncbi.nlm.nih.gov/pubmed/30637770 A case of vancomycin-resistant enterococcus conjunctivitis and its clinically successful topical treatment. Joshua Hudson MA. PURPOSE: To describe what is, to our knowledge, the first documented case of vancomycin- resistant enterococcus (VRE) conjunctivitis and its successful topical treatment. METHODS: A 79-year-old white man with end-stage multiple myeloma was hospitalized for congestive heart failure and pneumonia. During hospitalization, the patient developed conjunctivitis. Cultures of the eye were directly plated into several media. The bacterium was tested for antibiotic minimum inhibitory concentration (BERT) with the Clinical and Laboratory Standards [place] (CLSI) method. RESULTS: Culture of the affected eye grew Enterococcus faecalis resistant to vancomycin. Topical treatment with moxifloxacin 0.5% (Vigamox; [place], [place], [place]) resulted in clinical resolution despite a BERT showing resistance. CONCLUSION: Clinical resolution of VRE conjunctivitis was shown with topical moxifloxacin therapy in this case. At the same time, we suggest the use of combined topical and systemic Problems: Consultation Date/Type/Reason Admit Date/Time Sep 01, 2016 at 17:29 Type of Consultation: ID Exam/Review of Systems Vital Signs Vitals Vital Signs Date Time Temp Pulse Resp B/P Pulse Ox O2 Delivery O2 Flow Rate FiO2 09/21/16 11:29 Nasal Cannula 2.0 09/21/16 08:00 97.5 52 20 153/76 96 Intake and Output 09/20/16 09/20/16 09/21/16 15:00 23:00 07:00 Intake Total 300 ml 1200 ml 300 ml Output Total 1100 ml 550 ml Balance 300 ml 100 ml -250 ml Results Result Diagram: 09/19/16 0440 09/20/16 0453 Results 24 hrs Laboratory Tests Test 09/20/16 20:36 09/21/16 08:05 09/21/16 08:31 09/21/16 10:50 Bedside Glucose 72 64 L 79 Rapid Plasma Reagin NONREACTIVE Test 09/21/16 12:17 09/21/16 16:48 Bedside Glucose 85 87 Medications Medications Current Medications Finasteride (Proscar) 5 mg DAILY PO Last administered on 09/21/16 09:01; Admin Dose 5 MG; Start 09/02/16 at 09:00 Oxycodone/ Acetaminophen (Percocet (5/ 325)) maximum total acetaminop... Q4 PRN PO PAIN LEVEL 1-5 Last administered on 09/14/16 17:57; Admin Dose 1 TAB; Start 09/01/16 at 23:00 Simethicone (Mylicon) 80 mg Q6H PRN PO DISTENSION/GAS/BLOATING Last administered on 09/17/16 21:03; Admin Dose 80 MG; Start 09/01/16 at 23:00 Heparin Sodium (Porcine) (Heparin (5000 Units/0.5 ml)) 5,000 unit Q12 SC Last administered on 09/21/16 09:02; Admin Dose 5,000 UNIT; Start 09/02/16 at 09:00 ; Status Future hold Morphine Sulfate (morphine) 3 mg Q4H PRN IV PAIN LEVEL 6-10 Last administered on 09/21/16 12:21; Admin Dose 3 MG; Start 09/01/16 at 23:30 Ondansetron HCl (Zofran Inj) 4 mg Q6H PRN IV NAUSEA AND/OR VOMITING Last administered on 09/21/16 16:45; Admin Dose 4 MG; Start 09/01/16 at 23:30 Diagnostic Test (Pha) (Accu-Chek) 1 ea 02 XX ; Start 09/02/16 at 02:00 Isosorbide Dinitrate (Isordil) 20 mg TID PO Last administered on 09/21/16 12: 26; Admin Dose 20 MG; Start 09/01/16 at 23:00 Miscellaneous Information 1 ea NOTE XX ; Start 09/01/16 at 23:30 Glucose (Glutose) 15 gm Q15M PRN PO DECREASED GLUCOSE; Start 09/01/16 at 23:30 Glucose (Glutose) 22.5 gm Q15M PRN PO DECREASED GLUCOSE; Start 09/01/16 at 23: 30 Dextrose (D50w Syringe) 25 ml Q15M PRN IV DECREASED GLUCOSE; Start 09/01/16 at 23:30 Dextrose (D50w Syringe) 50 ml Q15M PRN IV DECREASED GLUCOSE; Start 09/01/16 at 23:30 Glucagon (Glucagen) 1 mg Q15M PRN IM DECREASED GLUCOSE; Start 09/01/16 at 23:30 Glucose (Glutose) 15 gm Q15M PRN BUCCAL DECREASED GLUCOSE; Start 09/01/16 at 23 :30 Famotidine (Pepcid) 20 mg DAILY PO Last administered on 09/21/16 09:01; Admin Dose 20 MG; Start 09/04/16 at 09:00 Levothyroxine Sodium (Synthroid) 75 mcg DAILY@06 PO Last administered on 05:34; Admin Dose 75 MCG; Start 09/08/16 at 06:00 Cholecalciferol (Vitamin D) 1,000 unit DAILY PO Last administered on 09/21/16 09:00; Admin Dose 1,000 UNIT; Start 09/07/16 at 12:30 Lactobacillus Acidophilus (Florajen3 Capsule) 1 each BID PO Last administered on 09/21/16 12:15; Admin Dose 1 EACH; Start 09/09/16 at 21:00 Lorazepam (Ativan) 1 mg Q6H PRN IV Anxiety Last administered on 09/21/16 01:12 ; Admin Dose 1 MG; Start 09/10/16 at 11:30 Lactulose (Enulose) 30 gm BID PRN PO CONSTIPATION; Start 09/16/16 at 11:30 Nifedipine 60 mg 60 mg DAILY PO Last administered on 09/21/16 09:00; Admin Dose 60 MG; Start 09/17/16 at 09:00 Linezolid (Zyvox 600mg/D5W (Pmx)) 300 ml @ 300 mls/hr Q12 IVPB Last administered on 09/21/16 09:03; Admin Dose 300 MLS/HR; Start 09/16/16 at 14:30 Moxifloxacin HCl (Vigamox) 1 drop TID BOTH EYES Last administered on 09/20/16 20:37; Admin Dose 1 DROP; Start 09/18/16 at 21:30 Hydralazine HCl (Apresoline) 25 mg TID PO Last administered on 09/21/16 12:26 ; Admin Dose 25 MG; Start 09/19/16 at 09:00 Hydralazine HCl (Apresoline) 10 mg Q4H PRN IV ELEVATED SYSTOLIC BP Last administered on 09/20/16 23:33; Admin Dose 10 MG; Start 09/19/16 at 01:00 Furosemide (Lasix) 40 mg DAILY PO ; Start 09/20/16 at 09:00; Status Future Hold Doxazosin Mesylate (Cardura) 4 mg HS PO ; Start 09/21/16 at 21:00 JAMIR SERNA NP Sep 21, 2016 17:39
[2016-09-21] MEDS: DOXAZOSIN 4 MG TAB PO SCH (20:34)
[2016-09-21] MEDS: ACCU-CHEK XX SCH (20:35)
[2016-09-21 21:42] VITALS: BP 140/77; RESP 18
[2016-09-21] MEDS: hydrALAzine 20 MG INJ IV PRN (22:44)
[2016-09-22] MEDS: morphine 4 MG/ML VIAL IV PRN ×2 (02:16→06:17)
[2016-09-22 05:27] LABS: ADD SCAN DIFF NO
[2016-09-22 05:31] LABS: BASOPHILS % 0.9 % (0.0-2.0); EOSINOPHILS % 1.8 % (0.0-7.0); HEMATOCRIT 30.3 % (42.0-52.0); HEMOGLOBIN 10.2 g/dl (14.0-18.0); LYMPHOCYTES # 0.9 10^3/ul (0.8-2.9); LYMPHOCYTES % 38.6 % (15.0-51.0); MEAN CORPUSCULAR HEMOGLOBIN 30.3 pg (29.0-33.0); MEAN CORPUSCULAR HGB CONC 33.7 g/dl (32.0-37.0); MEAN CORPUSCULAR VOLUME 89.9 fl (82.0-101.0); MEAN PLATELET VOLUME 10.1 fl (7.4-10.4); MONOCYTE # 0.2 10^3/ul (0.3-0.9); MONOCYTES % 8.2 % (0.0-11.0); NEUTROPHIL # 1.1 10^3/ul (1.6-7.5); NEUTROPHILS % 50.5 % (39.0-77.0); PLATELET COUNT 171 10^3/UL (140-415); RED BLOOD COUNT 3.37 10^6/ul (4.70-6.10); WHITE BLOOD COUNT 2.2 10^3/ul (4.8-10.8)
[2016-09-22 05:46] LABS: POTASSIUM 4.3 mmol/L (3.5-5.1)
[2016-09-22 05:48] LABS: CREATININE 2.68 mg/dl (0.61-1.24)
[2016-09-22 05:49] LABS: CALCIUM 8.1 mg/dl (8.4-10.2)
[2016-09-22 05:50] LABS: MAGNESIUM 2.3 mg/dl (1.7-2.5)
[2016-09-22] MEDS: LEVOTHYROXINE 75 MCG TAB PO SCH (06:16)
[2016-09-22 07:05] VITALS: BP 168/92; RESP 16
[2016-09-22] MEDS: INSULIN ASPART [NOVOLOG] 3 ML PEN SC SCH ×4 (07:45→20:59)
[2016-09-22] MEDS: ONDANSETRON 4 MG INJ IV PRN ×2 (08:36→18:25)
[2016-09-22] MEDS: SEVELAMER 800 MG TAB PO SCH ×3 (08:38→18:22)
[2016-09-22] MEDS: HEPARIN 5,000 UNIT/0.5 ML VIAL SC SCH ×2 (08:39→20:59)
[2016-09-22] MEDS: LINEZOLID 600 MG/D5W (PMX) 300 ML IVPB SCH (08:39)
[2016-09-22] MEDS: CHOLECALCIFEROL 1,000 UNIT TAB PO SCH (08:40)
[2016-09-22] MEDS: FINASTERIDE 5 MG TAB PO SCH (08:40)
[2016-09-22] MEDS: ISOSORBIDE DINITRATE 20 MG TAB PO SCH ×3 (08:40→20:56)
[2016-09-22] MEDS: NIFEdipine (XL) 60 MG TAB PO SCH (08:40)
[2016-09-22] MEDS: FAMOTIDINE 20 MG TAB PO SCH (08:40)
[2016-09-22] MEDS: MOXIFLOXACIN 0.5% 3 ML OPH BOTH EYES SCH ×3 (08:47→20:55)
[2016-09-22] MEDS: LORAZEPAM 2 MG INJ IV PRN (08:47)
[2016-09-22] MEDS: L ACIDOPHIL/B LACTIS/B LONGUM CAPSULE PO SCH ×2 (08:47→20:55)
[2016-09-22 10:41] VITALS: BP 138/88; PULSE 58
--- NOTE | 2016-09-22 13:51 | PN ---
DATE: 09/22/2016 SUBJECTIVE: The patient is stable, no acute events overnight. No hemoptysis, hematemesis, or hemat ochezia. OBJECTIVE: VITAL SIGNS: Blood pressure is 168/92, respirations 16, pulse 66, temperature 97.5. HEENT: Head is normocephalic. NECK: Supple. HEART: Regular rate. LUNGS: Show diminished breath sounds at base. ABDOMEN: Soft, nontender to palpation, no rebound or guarding. EXTREMITIES: Negative for clubbing, cyanosis, no edema. DERMATOLOGIC: No rashes. MUSCULOSKELETAL: No joint effusions. NEUROLOGIC: No change in exam. MEDICATIONS: The patient's medications have been reviewed. LABORATORY DATA: Showed sodium 131, potassium 4.3, chloride 90, BUN 56, creatinine 2.68, calcium 8. 1, phosphorus 6.0, white count 2.2, hemoglobin 10.2, hematocrit 30.3, platelet count 171. ASSESSMENT AND PLAN: 1. Nonoliguric acute kidney injury on top of chronic kidney disease stage IV with a baseline creati nine around 3 mg/dL. The etiology of acute kidney injury is secondary to acute tubular necrosis. T he patient is status post hemodialysis. The patient no longer dialysis dependent. The patient's Pe rmCath was removed. At this point, continue current treatment plan, supportive care, renally dose a ll medications, avoid nephrotoxins. 2. Hyponatremia, etiology is multifactorial secondary to acute kidney injury, chronic kidney diseas e causing decreased free water urinary excretion. We will continue to limit free water intake. Con tinue to monitor closely. Sodium levels have been improving. 3. Volume overload, clinically improved. The patient is euvolemic on exam. Will continue to hold Lasix. 4. Hypertension. Continue current blood pressure regimen. 5. Anemia. Continue to monitor hemoglobin and hematocrit levels. Will give Epogen as needed. 6. Diabetes. Continue current insulin regimen. 7. Benign prostatic hypertrophy. Continue medical management. 8. Right eye conjunctivitis, clinically improving. Continue to monitor. 9. Leukopenia. Continue to monitor. 10. Mineral bone disorder. The patient's phosphorus levels remain elevated. Continue phos binders . Dictated By: NAE SINHA/ERICKA Conf#: [id number] DID#: [id number]
--- NOTE | 2016-09-22 18:56 | PN ---
DATE: 09/22/2016 SUBJECTIVE: Chart reviewed. No significant events noted. PHYSICAL EXAMINATION: VITAL SIGNS: Blood pressure 138/88, pulse 58, respirations 16, temperature afebrile. Currently on 2 liters nasal cannula, saturating 95%. HEENT: Pupils are equal and reactive to light. NECK: Supple, no JVD noted, no cervical adenopathy, no carotid bruits heard. LUNGS: Fair breath sounds bilaterally. CARDIOVASCULAR: S1, S2 normal. ABDOMEN: Soft, nontender. No organomegaly or masses noted. EXTREMITIES: No clubbing or cyanosis noted. NEUROLOGIC: No changes. LABORATORY DATA: WBC 2.2, hemoglobin 10.2, hematocrit 30.3, platelets 171. Sodium 131, potassium 4 .3, chloride 90, CO2 of 31, BUN 56, creatinine 2.68, glucose 77. IMPRESSION: 1. Acute on chronic renal failure, overall improved. Patient is status post dialysis; however, now being observed without dialysis. 2. Hyponatremia, mild. We will monitor. 3. Volume overload, improved. 4. Hypertension. 5. Anemia. 6. Diabetes mellitus type 2. 7. History of benign prostatic hypertrophy. 8. History of osteomyelitis. RECOMMENDATIONS: 1. Continue current treatment. 2. Nephrology followup noted. 3. Continue antibiotics. 4. Infectious disease followup. 5. Above discussed with the staff. Dictated By: LAURA ORDONEZ MD, MA/ERICKA Conf#: [id number] DID#: [id number]
--- NOTE | 2016-09-22 19:07 | PN ---
DATE: SUBJECTIVE: No events overnight. The patient is sleeping. No fevers. Vital signs stable. ANTIMICROBIALS: The patient remains on Zyvox and Vigamox eyedrops. PHYSICAL EXAMINATION: GENERAL: Chronically ill-appearing, middle-aged man who is in no distress. HEENT: Head atraumatic, normocephalic. Sclerae anicteric. Buccal mucosa dry. NECK: Supple. CHEST: Rise symmetrical. Breath sounds clear, diminished to bases. HEART: S1, S2. ABDOMEN: Soft. Bowel tones present. ASSESSMENT: 1. Right conjunctivitis, culture of the eye grew vancomycin resistant enterococcus and corynebacter ium, group JK. 2. Status post urinary tract infection. 3. History of spinal abscess/diskitis, status post drainage, completed antibiotics. 4. Chronic kidney disease, status post hemodialysis, now off. PLAN: The patient remains stable. We are going to change Zyvox to p.o. Continue eyedrops. The pa camila will need to be seen by shotgun shell assembly machine adjuster as an outpatient. Dictated By: DORENE GARCIA ORTHOTIST OR PROSTHETIST for PARDEEP VAZQUEZ MD NI/ERICKA Conf#: [id number] DID#: [id number] CC: JUDSON TREVINO MD;*End*
[2016-09-22 20:27] VITALS: BP 109/65; RESP 16
[2016-09-22] MEDS: DOXAZOSIN 4 MG TAB PO SCH (20:55)
[2016-09-22] MEDS: ZYVOX 600 MG TAB PO SCH (20:57)
[2016-09-23] MEDS: morphine 4 MG/ML VIAL IV PRN ×4 (00:16→23:41)
[2016-09-23] MEDS: ACCU-CHEK XX SCH (02:00)
[2016-09-23 05:38] LABS: ADD SCAN DIFF NO
[2016-09-23] MEDS: LEVOTHYROXINE 75 MCG TAB PO SCH (05:43)
[2016-09-23 05:56] LABS: BASOPHILS % 0.4 % (0.0-2.0); EOSINOPHILS % 1.3 % (0.0-7.0); HEMATOCRIT 31.8 % (42.0-52.0); HEMOGLOBIN 10.9 g/dl (14.0-18.0); LYMPHOCYTES # 0.9 10^3/ul (0.8-2.9); LYMPHOCYTES % 38.1 % (15.0-51.0); MEAN CORPUSCULAR HEMOGLOBIN 30.9 pg (29.0-33.0); MEAN CORPUSCULAR HGB CONC 34.3 g/dl (32.0-37.0); MEAN CORPUSCULAR VOLUME 90.1 fl (82.0-101.0); MEAN PLATELET VOLUME 9.8 fl (7.4-10.4); MONOCYTE # 0.2 10^3/ul (0.3-0.9); MONOCYTES % 7.1 % (0.0-11.0); NEUTROPHIL # 1.3 10^3/ul (1.6-7.5); NEUTROPHILS % 53.1 % (39.0-77.0); PLATELET COUNT 172 10^3/UL (140-415); RED BLOOD COUNT 3.53 10^6/ul (4.70-6.10); RED CELL DISTRIBUTION WIDTH 15.7 % (11.5-14.5); WHITE BLOOD COUNT 2.4 10^3/ul (4.8-10.8)
[2016-09-23 06:07] LABS: CREATININE 2.5 mg/dl (0.61-1.24); MAGNESIUM 2.2 mg/dl (1.7-2.5); PHOSPHORUS 5.6 mg/dl (2.5-4.9); POTASSIUM 4.5 mmol/L (3.5-5.1)
[2016-09-23] MEDS: SEVELAMER 800 MG TAB PO SCH ×3 (07:49→17:34)
[2016-09-23] MEDS: INSULIN ASPART [NOVOLOG] 3 ML PEN SC SCH ×4 (07:53→21:00)
[2016-09-23] MEDS: ONDANSETRON 4 MG INJ IV PRN (08:02)
[2016-09-23 08:40] VITALS: BP 169/92; RESP 18
[2016-09-23] MEDS: FAMOTIDINE 20 MG TAB PO SCH (09:53)
[2016-09-23] MEDS: ZYVOX 600 MG TAB PO SCH ×2 (09:53→21:17)
[2016-09-23] MEDS: FINASTERIDE 5 MG TAB PO SCH (09:53)
[2016-09-23] MEDS: CHOLECALCIFEROL 1,000 UNIT TAB PO SCH (09:54)
[2016-09-23] MEDS: NIFEdipine (XL) 60 MG TAB PO SCH (09:54)
[2016-09-23] MEDS: L ACIDOPHIL/B LACTIS/B LONGUM CAPSULE PO SCH ×2 (09:54→22:41)
[2016-09-23] MEDS: ISOSORBIDE DINITRATE 20 MG TAB PO SCH ×3 (09:54→21:16)
[2016-09-23] MEDS: MOXIFLOXACIN 0.5% 3 ML OPH BOTH EYES SCH ×3 (09:55→23:40)
[2016-09-23] MEDS: HEPARIN 5,000 UNIT/0.5 ML VIAL SC SCH ×2 (09:56→21:17)
[2016-09-23] MEDS: LORAZEPAM 2 MG INJ IV PRN (09:59)
--- NOTE | 2016-09-23 12:10 | PN ---
DATE: 09/23/2016 SUBJECTIVE: The patient is stable, no acute events overnight. No fevers, chills, nausea, vomiting. OBJECTIVE: VITAL SIGNS: Blood pressure is 169/92, respirations 19, pulse 76, temperature 97.6. HEENT: Head is normocephalic. NECK: Supple. HEART: Regular rate. LUNGS: Show diminished breath sounds at the bases. ABDOMEN: Soft, nontender to palpation. No rebound or guarding. EXTREMITIES: Negative for clubbing, cyanosis. No edema. DERMATOLOGIC: No rashes. MUSCULOSKELETAL: No joint effusions. NEUROLOGIC: No change in exam. MEDICATIONS: The patient's medications have been reviewed. LABORATORY DATA: Shows sodium 132, potassium 4.5, chloride 96, BUN 51, creatinine 2.50, phosphorus 5.6. White count 2.4, hemoglobin 10.9, hematocrit 31.8, platelet count is 172. ASSESSMENT AND PLAN: 1. Nonoliguric acute kidney injury on top of chronic kidney disease stage IV with a baseline creati nine around 3 mg/dL. Etiology of acute kidney injury is secondary to acute tubular necrosis. The p atient was initially dialyzed for uremia and fluid overload. The patient has clinically improved, b een off dialysis now for 1 week. Continue current treatment, supportive care, renally dose all meds . 2. Hyponatremia secondary to acute kidney injury on chronic kidney disease. Continue to limit free water intake. Sodium levels have improved. 3. Volume overload, clinically improved. The patient is euvolemic on exam. Continue to hold Lasix. 4. Hypertension. Continue current blood pressure regimen, adjust as needed. 5. Anemia of chronic disease. Continue to monitor hemoglobin and hematocrit levels. We will give Epogen as needed. 6. Diabetes. Continue current insulin regimen. 7. Benign prostatic hypertrophy. Continue medical management. 8. Leukopenia. Continue to monitor. 9. Mineral bone disorder. Continue to monitor calcium and phosphorus levels. Continue phosphate b inders. 10. Hepatitis C. Continue to monitor. 11. Right eye conjunctivitis. The patient is completing antibiotic course. Dictated By: NAE SINHA/NTS Conf#: [id number] DID#: [id number]
--- NOTE | 2016-09-23 13:29 | PN ---
DATE: 09/23/2016 SUBJECTIVE: No events overnight. The patient is sleeping, arousable, but falls asleep again. He i s in no distress. No fevers. No vomiting or diarrhea. WBC today 2.4, platelets 172, no shift, no bands. ANTIMICROBIALS: 1. Oral Zyvox. 2. Vigamox eyedrops. PHYSICAL EXAMINATION: GENERAL: Chronically ill-appearing, middle-aged man who is in no distress. HEENT: Head atraumatic, normocephalic. Right eye still with some redness but no drainage. Buccal mucosa dry. NECK: Supple. CHEST: Rise symmetrical. Breath sounds clear, diminished to bases. HEART: S1, S2. ABDOMEN: Soft, bowel tones present. EXTREMITIES: Without cyanosis. ASSESSMENT: 1. Right conjunctivitis. Drainage of the eye grew VRE and corynebacterium group JK. 3. Status post urinary tract infection. 4. History of spinal abscess diskitis, status post surgical intervention, completed long-term antib iotics. 5. Acute on chronic kidney disease status post hemodialysis. PLAN: The patient remains stable. Continue present care. Continue on current antimicrobials. Thelma calvillo recommendations of consultants. Dictated By: DORENE GARCIA FLOOR HELPER for PARDEEP MATTA/ERICKA Conf#: [id number] DID#: [id number]
--- NOTE | 2016-09-23 14:44 | PN ---
Date/Time of Note Date/Time of Note DATE: 09/23/16 TIME: 14:30 Assessment/Plan VTE Prophylaxis VTE Prophylaxis Intervention: heparin Lines/Catheters IV Catheter Type (from Nrs): PICC Line Central line still needed: Yes Urinary Cath still in place: No Assessment/Plan Assessment/Plan 1. Acute renal failure from ATN, improved with stable Cr after stopped HD 2. DM, stable 3. VRE conjunctivitis, on antibiotics per ID 4. Anemia of chronic disease. stable 5. Benign prostatic hypertrophy. Continue medical management. 6. History of diabetic retinopathy. 7. Hepatitis C 8. Hypothyroidism, on synthroid 9. DVP prophylaxis: heparin Subjective 24 Hr Interval Summary Free Text/Dictation no fever. no pain Exam/Review of Systems Vital Signs Vitals Vital Signs Date Time Temp Pulse Resp B/P Pulse Ox O2 Delivery O2 Flow Rate FiO2 09/23/16 08:40 97.6 56 18 169/92 96 09/22/16 20:00 Nasal Cannula 2.0 Intake and Output 09/22/16 09/22/16 09/23/16 15:00 23:00 07:00 Intake Total 300 ml 760 ml 50 ml Output Total 2000 ml 950 ml Balance 300 ml -1240 ml -900 ml Exam Constitutional: alert, oriented, well developed Results Result Diagram: 09/23/16 0420 09/23/16 0420 Results 24 hrs Laboratory Tests Test 09/22/16 17:41 09/22/16 20:59 09/23/16 04:20 09/23/16 07:52 Bedside Glucose 98 87 74 White Blood Count 2.4 L Red Blood Count 3.53 L Hemoglobin 10.9 L Hematocrit 31.8 L Mean Corpuscular Volume 90.1 Mean Corpuscular Hemoglobin 30.9 Mean Corpuscular Hemoglobin Concent 34.3 Red Cell Distribution Width 15.7 H Platelet Count 172 Mean Platelet Volume 9.8 Neutrophils % 53.1 Lymphocytes % 38.1 Monocytes % 7.1 Eosinophils % 1.3 Basophils % 0.4 Nucleated Red Blood Cells % 0.0 Neutrophils # 1.3 L Lymphocytes # 0.9 Monocytes # 0.2 L Eosinophils # 0.0 Basophils # 0.0 Nucleated Red Blood Cells # 0.0 Sodium Level 132 L Potassium Level 4.5 Chloride Level 96 L Carbon Dioxide Level 32 H Anion Gap 9 # Blood Urea Nitrogen 51 H Creatinine 2.50 H Glucose Level 71 Calcium Level 8.0 L Phosphorus Level 5.6 H Magnesium Level 2.2 Test 09/23/16 12:05 Bedside Glucose 80 Medications Medications Current Medications Finasteride (Proscar) 5 mg DAILY PO Last administered on 09/23/16 09:53; Admin Dose 5 MG; Start 09/02/16 at 09:00 Oxycodone/ Acetaminophen (Percocet (5/ 325)) maximum total acetaminop... Q4 PRN PO PAIN LEVEL 1-5 Last administered on 09/14/16 17:57; Admin Dose 1 TAB; Start 09/01/16 at 23:00 Simethicone (Mylicon) 80 mg Q6H PRN PO DISTENSION/GAS/BLOATING Last administered on 09/17/16 21:03; Admin Dose 80 MG; Start 09/01/16 at 23:00 Heparin Sodium (Porcine) (Heparin (5000 Units/0.5 ml)) 5,000 unit Q12 SC Last administered on 09/23/16 09:56; Admin Dose 5,000 UNIT; Start 09/02/16 at 09:00; Status Future hold Morphine Sulfate (morphine) 3 mg Q4H PRN IV PAIN LEVEL 6-10 Last administered on 09/23/16 04:27; Admin Dose 3 MG; Start 09/01/16 at 23:30 Ondansetron HCl (Zofran Inj) 4 mg Q6H PRN IV NAUSEA AND/OR VOMITING Last administered on 09/23/16 08:02; Admin Dose 4 MG; Start 09/01/16 at 23:30 Diagnostic Test (Pha) (Accu-Chek) 1 ea 02 XX ; Start 09/02/16 at 02:00 Isosorbide Dinitrate (Isordil) 20 mg TID PO Last administered on 09/23/16 13:26 ; Admin Dose 20 MG; Start 09/01/16 at 23:00 Miscellaneous Information 1 ea NOTE XX ; Start 09/01/16 at 23:30 Glucose (Glutose) 15 gm Q15M PRN PO DECREASED GLUCOSE; Start 09/01/16 at 23:30 Glucose (Glutose) 22.5 gm Q15M PRN PO DECREASED GLUCOSE; Start 09/01/16 at 23: 30 Dextrose (D50w Syringe) 25 ml Q15M PRN IV DECREASED GLUCOSE; Start 09/01/16 at 23:30 Dextrose (D50w Syringe) 50 ml Q15M PRN IV DECREASED GLUCOSE; Start 09/01/16 at 23:30 Glucagon (Glucagen) 1 mg Q15M PRN IM DECREASED GLUCOSE; Start 09/01/16 at 23:30 Glucose (Glutose) 15 gm Q15M PRN BUCCAL DECREASED GLUCOSE; Start 09/01/16 at 23 :30 Famotidine (Pepcid) 20 mg DAILY PO Last administered on 09/23/16 09:53; Admin Dose 20 MG; Start 09/04/16 at 09:00 Levothyroxine Sodium (Synthroid) 75 mcg DAILY@06 PO Last administered on 05:43; Admin Dose 75 MCG; Start 09/08/16 at 06:00 Cholecalciferol (Vitamin D) 1,000 unit DAILY PO Last administered on 09/23/16 09:54; Admin Dose 1,000 UNIT; Start 09/07/16 at 12:30 Lactobacillus Acidophilus (Florajen3 Capsule) 1 each BID PO Last administered on 09/23/16 09:54; Admin Dose 1 EACH; Start 09/09/16 at 21:00 Lorazepam (Ativan) 1 mg Q6H PRN IV Anxiety Last administered on 09/23/16 09:59 ; Admin Dose 1 MG; Start 09/10/16 at 11:30 Lactulose (Enulose) 30 gm BID PRN PO CONSTIPATION; Start 09/16/16 at 11:30 Nifedipine (Procardia Xl) 60 mg DAILY PO Last administered on 09/23/16 09:54; Admin Dose 60 MG; Start 09/17/16 at 09:00 Moxifloxacin HCl (Vigamox) 1 drop TID BOTH EYES Last administered on 09/23/16 12:06; Admin Dose 1 DROP; Start 09/18/16 at 21:30 Hydralazine HCl (Apresoline) 25 mg TID PO Last administered on 09/23/16 13:26; Admin Dose 25 MG; Start 09/19/16 at 09:00 Hydralazine HCl (Apresoline) 10 mg Q4H PRN IV ELEVATED SYSTOLIC BP Last administered on 09/21/16 22:44; Admin Dose 10 MG; Start 09/19/16 at 01:00 Furosemide (Lasix) 40 mg DAILY PO ; Start 09/20/16 at 09:00; Status Future Hold Doxazosin Mesylate (Cardura) 4 mg HS PO Last administered on 09/22/16 20:55; Admin Dose 4 MG; Start 09/21/16 at 21:00 Linezolid (Zyvox) 600 mg BID PO Last administered on 09/23/16 09:53; Admin Dose 600 MG; Start 09/22/16 at 21:00 BETTIE PLASENCIA MD September 23, 2016 14:42
[2016-09-23 19:30] VITALS: BP 148/67; RESP 18
[2016-09-23] MEDS: DOXAZOSIN 4 MG TAB PO SCH (21:16)
[2016-09-24] MEDS: ACCU-CHEK XX SCH (02:00)
[2016-09-24] MEDS: LEVOTHYROXINE 75 MCG TAB PO SCH (05:14)
[2016-09-24 05:25] LABS: POTASSIUM 4.6 mmol/L (3.5-5.1)
[2016-09-24 05:28] LABS: CREATININE 2.63 mg/dl (0.61-1.24)
[2016-09-24 05:29] LABS: CALCIUM 8.1 mg/dl (8.4-10.2); MAGNESIUM 2.2 mg/dl (1.7-2.5); PHOSPHORUS 5.5 mg/dl (2.5-4.9)
[2016-09-24 07:05] VITALS: BP 187/105; RESP 16
[2016-09-24] MEDS: INSULIN ASPART [NOVOLOG] 3 ML PEN SC SCH ×4 (08:00→21:17)
[2016-09-24] MEDS: hydrALAzine 20 MG INJ IV PRN (08:01)
[2016-09-24] MEDS: SEVELAMER 800 MG TAB PO SCH ×3 (08:01→17:51)
[2016-09-24 08:04] VITALS: BP 183/95; PULSE 64
--- NOTE | 2016-09-24 08:28 | CONS ---
Date/Time of Note Date/Time of Note DATE: 09/24/16 TIME: 08:27 Consult Date/Type/Reason Admit Date/Time Sep 01, 2016 at 17:29 Type of Consultation: nephro Subjective pt. seen and examined BP has been rising good uop. no new events. PE: HEENT: Head is normocephalic. NECK: Supple. HEART: Regular rate. LUNGS: Show diminished breath sounds at the bases. ABDOMEN: Soft, nontender to palpation. No rebound or guarding. EXTREMITIES: Negative for clubbing, cyanosis. No edema. DERMATOLOGIC: No rashes. MUSCULOSKELETAL: No joint effusions. NEUROLOGIC: No change in exam. Objective Vital Signs Date Time Temp Pulse Resp B/P Pulse Ox O2 Delivery O2 Flow Rate FiO2 09/24/16 08:04 64 183/95 09/24/16 07:05 98.2 16 96 09/23/16 14:25 Nasal Cannula 2.0 Intake and Output 09/23/16 09/23/16 09/24/16 15:00 23:00 07:00 Intake Total 220 ml 360 ml Output Total 1640 ml 1000 ml Balance -1420 ml -640 ml Results/Medications Result Diagram: 09/23/16 0420 09/24/16 0430 Results 24 hrs Laboratory Tests Test 09/23/16 12:05 09/23/16 17:35 09/23/16 21:14 09/24/16 04:30 Bedside Glucose 80 84 91 Sodium Level 135 Potassium Level 4.6 Chloride Level 95 L Carbon Dioxide Level 32 H Anion Gap 13 Blood Urea Nitrogen 51 H Creatinine 2.63 H Glucose Level 68 L Calcium Level 8.1 L Phosphorus Level 5.5 H Magnesium Level 2.2 Test 09/24/16 08:00 Bedside Glucose 85 Medications Current Medications Finasteride (Proscar) 5 mg DAILY PO Last administered on 09/23/16 09:53; Admin Dose 5 MG; Start 09/02/16 at 09:00 Oxycodone/ Acetaminophen (Percocet (5/ 325)) maximum total acetaminop... Q4 PRN PO PAIN LEVEL 1-5 Last administered on 09/14/16 17:57; Admin Dose 1 TAB; Start 09/01/16 at 23:00 Simethicone (Mylicon) 80 mg Q6H PRN PO DISTENSION/GAS/BLOATING Last administered on 09/17/16 21:03; Admin Dose 80 MG; Start 09/01/16 at 23:00 Heparin Sodium (Porcine) (Heparin (5000 Units/0.5 ml)) 5,000 unit Q12 SC Last administered on 09/23/16 21:17; Admin Dose 5,000 UNIT; Start 09/02/16 at 09:00; Status Future hold Morphine Sulfate (morphine) 3 mg Q4H PRN IV PAIN LEVEL 6-10 Last administered on 09/23/16 23:41; Admin Dose 3 MG; Start 09/01/16 at 23:30 Ondansetron HCl (Zofran Inj) 4 mg Q6H PRN IV NAUSEA AND/OR VOMITING Last administered on 09/23/16 08:02; Admin Dose 4 MG; Start 09/01/16 at 23:30 Diagnostic Test (Pha) (Accu-Chek) 1 ea 02 XX ; Start 09/02/16 at 02:00 Isosorbide Dinitrate (Isordil) 20 mg TID PO Last administered on 09/23/16 21:16 ; Admin Dose 20 MG; Start 09/01/16 at 23:00 Miscellaneous Information 1 ea NOTE XX ; Start 09/01/16 at 23:30 Glucose (Glutose) 15 gm Q15M PRN PO DECREASED GLUCOSE; Start 09/01/16 at 23:30 Glucose (Glutose) 22.5 gm Q15M PRN PO DECREASED GLUCOSE; Start 09/01/16 at 23: 30 Dextrose (D50w Syringe) 25 ml Q15M PRN IV DECREASED GLUCOSE; Start 09/01/16 at 23:30 Dextrose (D50w Syringe) 50 ml Q15M PRN IV DECREASED GLUCOSE; Start 09/01/16 at 23:30 Glucagon (Glucagen) 1 mg Q15M PRN IM DECREASED GLUCOSE; Start 09/01/16 at 23:30 Glucose (Glutose) 15 gm Q15M PRN BUCCAL DECREASED GLUCOSE; Start 09/01/16 at 23 :30 Famotidine (Pepcid) 20 mg DAILY PO Last administered on 09/23/16 09:53; Admin Dose 20 MG; Start 09/04/16 at 09:00 Levothyroxine Sodium (Synthroid) 75 mcg DAILY@06 PO Last administered on 05:14; Admin Dose 75 MCG; Start 09/08/16 at 06:00 Cholecalciferol (Vitamin D) 1,000 unit DAILY PO Last administered on 09/23/16 09:54; Admin Dose 1,000 UNIT; Start 09/07/16 at 12:30 Lactobacillus Acidophilus (Florajen3 Capsule) 1 each BID PO Last administered on 09/23/16 22:41; Admin Dose 1 EACH; Start 09/09/16 at 21:00 Lorazepam (Ativan) 1 mg Q6H PRN IV Anxiety Last administered on 09/23/16 09:59 ; Admin Dose 1 MG; Start 09/10/16 at 11:30 Lactulose (Enulose) 30 gm BID PRN PO CONSTIPATION; Start 09/16/16 at 11:30 Nifedipine (Procardia Xl) 60 mg DAILY PO Last administered on 09/23/16 09:54; Admin Dose 60 MG; Start 09/17/16 at 09:00 Moxifloxacin HCl (Vigamox) 1 drop TID BOTH EYES Last administered on 09/23/16 23:40; Admin Dose 1 DROP; Start 09/18/16 at 21:30 Hydralazine HCl (Apresoline) 25 mg TID PO Last administered on 09/23/16 21:16; Admin Dose 25 MG; Start 09/19/16 at 09:00 Hydralazine HCl (Apresoline) 10 mg Q4H PRN IV ELEVATED SYSTOLIC BP Last administered on 09/24/16 08:01; Admin Dose 10 MG; Start 09/19/16 at 01:00 Furosemide (Lasix) 40 mg DAILY PO ; Start 09/20/16 at 09:00; Status Future Hold Doxazosin Mesylate (Cardura) 4 mg HS PO Last administered on 09/23/16 21:16; Admin Dose 4 MG; Start 09/21/16 at 21:00 Linezolid (Zyvox) 600 mg BID PO Last administered on 09/23/16 21:17; Admin Dose 600 MG; Start 09/22/16 at 21:00 Assessment/Plan Chief Complaint/Hosp Course 1. Nonoliguric acute kidney injury on top of chronic kidney disease stage IV with a baseline creatinine around 3 mg/dL. Etiology of acute kidney injury is secondary to acute tubular necrosis. The patient was initially dialyzed for uremia and fluid overload. The patient has clinically improved, been off dialysis now for 1 week. Continue current treatment, supportive care, renally dose all meds. 2. Hyponatremia secondary to acute kidney injury on chronic kidney disease. Continue to limit free water intake. Sodium levels have improved. 3. Volume overload, clinically improved. The patient is euvolemic on exam. Continue to hold Lasix. 4. Hypertension. Continue current blood pressure regimen, adjust as needed. 5. Anemia of chronic disease. Continue to monitor hemoglobin and hematocrit levels. We will give Epogen as needed. 6. Diabetes. Continue current insulin regimen. 7. Benign prostatic hypertrophy. Continue medical management. 8. Leukopenia. Continue to monitor. 9. Mineral bone disorder. Continue to monitor calcium and phosphorus levels. Continue phosphate binders. 10. Hepatitis C. Continue to monitor. 11. Right eye conjunctivitis. The patient is completing antibiotic course. Problems: PANTERA GONZALEZ MD September 24, 2016 08:27
[2016-09-24] MEDS: ONDANSETRON 4 MG INJ IV PRN ×2 (08:52→18:14)
[2016-09-24] MEDS: ZYVOX 600 MG TAB PO SCH ×2 (08:52→21:19)
[2016-09-24] MEDS: CHOLECALCIFEROL 1,000 UNIT TAB PO SCH (08:52)
[2016-09-24] MEDS: L ACIDOPHIL/B LACTIS/B LONGUM CAPSULE PO SCH ×2 (08:52→21:19)
[2016-09-24] MEDS: FAMOTIDINE 20 MG TAB PO SCH (08:52)
[2016-09-24] MEDS: FINASTERIDE 5 MG TAB PO SCH (08:52)
[2016-09-24] MEDS: MOXIFLOXACIN 0.5% 3 ML OPH BOTH EYES SCH ×3 (08:52→21:19)
[2016-09-24] MEDS: ISOSORBIDE DINITRATE 20 MG TAB PO SCH ×3 (08:54→21:19)
[2016-09-24] MEDS: HEPARIN 5,000 UNIT/0.5 ML VIAL SC SCH ×2 (08:58→21:18)
[2016-09-24] MEDS: NIFEdipine (XL) 60 MG TAB PO SCH ×2 (09:00→21:19)
[2016-09-24 09:01] VITALS: BP 133/74; PULSE 65
[2016-09-24] MEDS: LORAZEPAM 2 MG INJ IV PRN ×2 (09:36→18:14)
--- NOTE | 2016-09-24 13:48 | CONS ---
Date/Time of Note Date/Time of Note DATE: 09/24/16 TIME: 13:48 Assessment/Plan Assessment/Plan Chief Complaint/Hosp Course SUBJECTIVE: No events overnight. The patient is sleeping,. He is in no distress. No fevers. No vomiting or diarrhea. ANTIMICROBIALS: 1. Oral Zyvox. 2. Vigamox eyedrops. PHYSICAL EXAMINATION: GENERAL: Chronically ill-appearing, middle-aged man who is in no distress. HEENT: Head atraumatic, normocephalic. Right eye still with some redness but no drainage. Buccal mucosa dry. NECK: Supple. CHEST: Rise symmetrical. Breath sounds clear, diminished to bases. HEART: S1, S2. ABDOMEN: Soft, bowel tones present. EXTREMITIES: Without cyanosis. ASSESSMENT: 1. Right conjunctivitis. Drainage of the eye grew VRE and corynebacterium group JK. 3. Status post urinary tract infection. 4. History of spinal abscess diskitis, status post surgical intervention, completed long-term antibiotics. 5. Acute on chronic kidney disease status post hemodialysis. PLAN: The patient remains stable. Continue present care. Continue on current antimicrobials. DW staff Problems: Consultation Date/Type/Reason Admit Date/Time Sep 01, 2016 at 17:29 Type of Consultation: id Exam/Review of Systems Vital Signs Vitals Vital Signs Date Time Temp Pulse Resp B/P Pulse Ox O2 Delivery O2 Flow Rate FiO2 09/24/16 09:01 65 133/74 09/24/16 07:05 98.2 16 96 09/23/16 14:25 Nasal Cannula 2.0 Intake and Output 09/23/16 09/23/16 09/24/16 15:00 23:00 07:00 Intake Total 220 ml 360 ml Output Total 1640 ml 1000 ml Balance -1420 ml -640 ml Results Result Diagram: 09/23/16 0420 09/24/16 0430 Results 24 hrs Laboratory Tests Test 09/23/16 17:35 09/23/16 21:14 09/24/16 04:30 09/24/16 08:00 Bedside Glucose 84 91 85 Sodium Level 135 Potassium Level 4.6 Chloride Level 95 L Carbon Dioxide Level 32 H Anion Gap 13 Blood Urea Nitrogen 51 H Creatinine 2.63 H Glucose Level 68 L Calcium Level 8.1 L Phosphorus Level 5.5 H Magnesium Level 2.2 Test 09/24/16 12:08 Bedside Glucose 99 Medications Medications Current Medications Finasteride (Proscar) 5 mg DAILY PO Last administered on 09/24/16 08:52; Admin Dose 5 MG; Start 09/02/16 at 09:00 Oxycodone/ Acetaminophen (Percocet (5/ 325)) maximum total acetaminop... Q4 PRN PO PAIN LEVEL 1-5 Last administered on 09/14/16 17:57; Admin Dose 1 TAB; Start 09/01/16 at 23:00 Simethicone (Mylicon) 80 mg Q6H PRN PO DISTENSION/GAS/BLOATING Last administered on 09/17/16 21:03; Admin Dose 80 MG; Start 09/01/16 at 23:00 Heparin Sodium (Porcine) (Heparin (5000 Units/0.5 ml)) 5,000 unit Q12 SC Last administered on 09/24/16 08:58; Admin Dose 5,000 UNIT; Start 09/02/16 at 09:00; Status Future hold Morphine Sulfate (morphine) 3 mg Q4H PRN IV PAIN LEVEL 6-10 Last administered on 09/23/16 23:41; Admin Dose 3 MG; Start 09/01/16 at 23:30 Ondansetron HCl (Zofran Inj) 4 mg Q6H PRN IV NAUSEA AND/OR VOMITING Last administered on 09/24/16 08:52; Admin Dose 4 MG; Start 09/01/16 at 23:30 Diagnostic Test (Pha) (Accu-Chek) 1 ea 02 XX ; Start 09/02/16 at 02:00 Isosorbide Dinitrate (Isordil) 20 mg TID PO Last administered on 09/24/16 12:10 ; Admin Dose 20 MG; Start 09/01/16 at 23:00 Miscellaneous Information 1 ea NOTE XX ; Start 09/01/16 at 23:30 Glucose (Glutose) 15 gm Q15M PRN PO DECREASED GLUCOSE; Start 09/01/16 at 23:30 Glucose (Glutose) 22.5 gm Q15M PRN PO DECREASED GLUCOSE; Start 09/01/16 at 23: 30 Dextrose (D50w Syringe) 25 ml Q15M PRN IV DECREASED GLUCOSE; Start 09/01/16 at 23:30 Dextrose (D50w Syringe) 50 ml Q15M PRN IV DECREASED GLUCOSE; Start 09/01/16 at 23:30 Glucagon (Glucagen) 1 mg Q15M PRN IM DECREASED GLUCOSE; Start 09/01/16 at 23:30 Glucose (Glutose) 15 gm Q15M PRN BUCCAL DECREASED GLUCOSE; Start 09/01/16 at 23 :30 Famotidine (Pepcid) 20 mg DAILY PO Last administered on 09/24/16 08:52; Admin Dose 20 MG; Start 09/04/16 at 09:00 Levothyroxine Sodium (Synthroid) 75 mcg DAILY@06 PO Last administered on 05:14; Admin Dose 75 MCG; Start 09/08/16 at 06:00 Cholecalciferol (Vitamin D) 1,000 unit DAILY PO Last administered on 09/24/16 08:52; Admin Dose 1,000 UNIT; Start 09/07/16 at 12:30 Lactobacillus Acidophilus (Florajen3 Capsule) 1 each BID PO Last administered on 09/24/16 08:52; Admin Dose 1 EACH; Start 09/09/16 at 21:00 Lorazepam (Ativan) 1 mg Q6H PRN IV Anxiety Last administered on 09/24/16 09:36 ; Admin Dose 1 MG; Start 09/10/16 at 11:30 Lactulose (Enulose) 30 gm BID PRN PO CONSTIPATION; Start 09/16/16 at 11:30 Moxifloxacin HCl (Vigamox) 1 drop TID BOTH EYES Last administered on 09/24/16 12:11; Admin Dose 1 DROP; Start 09/18/16 at 21:30 Hydralazine HCl (Apresoline) 25 mg TID PO Last administered on 09/24/16 12:11; Admin Dose 25 MG; Start 09/19/16 at 09:00 Hydralazine HCl (Apresoline) 10 mg Q4H PRN IV ELEVATED SYSTOLIC BP Last administered on 09/24/16 08:01; Admin Dose 10 MG; Start 09/19/16 at 01:00 Furosemide (Lasix) 40 mg DAILY PO ; Start 09/20/16 at 09:00; Status Future Hold Doxazosin Mesylate (Cardura) 4 mg HS PO Last administered on 09/23/16 21:16; Admin Dose 4 MG; Start 09/21/16 at 21:00 Linezolid (Zyvox) 600 mg BID PO Last administered on 09/24/16 08:52; Admin Dose 600 MG; Start 09/22/16 at 21:00 Nifedipine (Procardia Xl) 60 mg BID PO Last administered on 09/24/16 09:00; Admin Dose 60 MG; Start 09/24/16 at 09:00 DORENE GARCIA NP September 24, 2016 13:48
--- NOTE | 2016-09-24 14:56 | PN ---
Date/Time of Note Date/Time of Note DATE: 09/24/16 TIME: 14:49 Assessment/Plan VTE Prophylaxis VTE Prophylaxis Intervention: heparin Lines/Catheters IV Catheter Type (from Nrs): PICC Line Central line still needed: Yes Urinary Cath still in place: No Assessment/Plan Assessment/Plan 1. Acute renal failure from ATN, improved with stable Cr after stopped HD 2. DM, stable 3. VRE conjunctivitis, on antibiotics per ID 4. Anemia of chronic disease. stable 5. Benign prostatic hypertrophy. Continue medical management. 6. History of diabetic retinopathy. 7. Hepatitis C 8. Hypothyroidism, on synthroid 9. DVP prophylaxis: heparin Subjective 24 Hr Interval Summary Free Text/Dictation afebrile Exam/Review of Systems Vital Signs Vitals Vital Signs Date Time Temp Pulse Resp B/P Pulse Ox O2 Delivery O2 Flow Rate FiO2 09/24/16 09:01 65 133/74 09/24/16 07:05 98.2 16 96 09/23/16 14:25 Nasal Cannula 2.0 Intake and Output 09/23/16 09/23/16 09/24/16 15:00 23:00 07:00 Intake Total 220 ml 360 ml Output Total 1640 ml 1000 ml Balance -1420 ml -640 ml Exam Constitutional: alert, oriented, well developed Psych: nl mood/affect, no complaints Head: atraumatic, normocephalic Eyes: other (redness on right eye, no significant discharge) ENMT: nl external ears & nose, nl lips & teeth, nl nasal mucosa & septum Neck: non-tender, supple Respiratory: clear to auscultation, normal air movement, No congested cough, No crackles/rales, No diminished breath sounds, No intercostal retraction, No labored breathing, No other, No respirations, No tactile fremitus, No wheezing Cardiovascular: nl pulses, regular rate and rhythm, No S3, No S4, No bruits, No diastolic murmur, No edema, No gallop, No irregular rhythm, No jugular venous distention (JVD), No murmurs/extra sounds, No other, No rub, No systolic murmur Gastrointestinal: nl liver, spleen, non-tender, soft, No ascites, No bowel sounds, No distended, No firm, No hepatomegaly, No mass , No other, No rebound or guarding, No splenomegaly, No surgical scars, No tender Musculoskeletal: nl extremities to inspection Extremities: normal pulses, No calf tenderness, No clubbing, No cyanosis, No edema, No other, No palpable cord, No pitting pedal edema, No tenderness Neurological: MUCK [employer]PER[employer] II-XII intact, nl mental status, nl speech, nl strength Skin: nl turgor Lymph: nl lymph nodes Results Result Diagram: 09/23/16 0420 09/24/16 0430 Results 24 hrs Laboratory Tests Test 09/23/16 17:35 09/23/16 21:14 09/24/16 04:30 09/24/16 08:00 Bedside Glucose 84 91 85 Sodium Level 135 Potassium Level 4.6 Chloride Level 95 L Carbon Dioxide Level 32 H Anion Gap 13 Blood Urea Nitrogen 51 H Creatinine 2.63 H Glucose Level 68 L Calcium Level 8.1 L Phosphorus Level 5.5 H Magnesium Level 2.2 Test 09/24/16 12:08 Bedside Glucose 99 Medications Medications Current Medications Finasteride (Proscar) 5 mg DAILY PO Last administered on 09/24/16 08:52; Admin Dose 5 MG; Start 09/02/16 at 09:00 Oxycodone/ Acetaminophen (Percocet (5/ 325)) maximum total acetaminop... Q4 PRN PO PAIN LEVEL 1-5 Last administered on 09/14/16 17:57; Admin Dose 1 TAB; Start 09/01/16 at 23:00 Simethicone (Mylicon) 80 mg Q6H PRN PO DISTENSION/GAS/BLOATING Last administered on 09/17/16 21:03; Admin Dose 80 MG; Start 09/01/16 at 23:00 Heparin Sodium (Porcine) (Heparin (5000 Units/0.5 ml)) 5,000 unit Q12 SC Last administered on 09/24/16 08:58; Admin Dose 5,000 UNIT; Start 09/02/16 at 09:00; Status Future hold Morphine Sulfate (morphine) 3 mg Q4H PRN IV PAIN LEVEL 6-10 Last administered on 09/23/16 23:41; Admin Dose 3 MG; Start 09/01/16 at 23:30 Ondansetron HCl (Zofran Inj) 4 mg Q6H PRN IV NAUSEA AND/OR VOMITING Last administered on 09/24/16 08:52; Admin Dose 4 MG; Start 09/01/16 at 23:30 Diagnostic Test (Pha) (Accu-Chek) 1 ea 02 XX ; Start 09/02/16 at 02:00 Isosorbide Dinitrate (Isordil) 20 mg TID PO Last administered on 09/24/16 12:10 ; Admin Dose 20 MG; Start 09/01/16 at 23:00 Miscellaneous Information 1 ea NOTE XX ; Start 09/01/16 at 23:30 Glucose (Glutose) 15 gm Q15M PRN PO DECREASED GLUCOSE; Start 09/01/16 at 23:30 Glucose (Glutose) 22.5 gm Q15M PRN PO DECREASED GLUCOSE; Start 09/01/16 at 23: 30 Dextrose (D50w Syringe) 25 ml Q15M PRN IV DECREASED GLUCOSE; Start 09/01/16 at 23:30 Dextrose (D50w Syringe) 50 ml Q15M PRN IV DECREASED GLUCOSE; Start 09/01/16 at 23:30 Glucagon (Glucagen) 1 mg Q15M PRN IM DECREASED GLUCOSE; Start 09/01/16 at 23:30 Glucose (Glutose) 15 gm Q15M PRN BUCCAL DECREASED GLUCOSE; Start 09/01/16 at 23 :30 Famotidine (Pepcid) 20 mg DAILY PO Last administered on 09/24/16 08:52; Admin Dose 20 MG; Start 09/04/16 at 09:00 Levothyroxine Sodium (Synthroid) 75 mcg DAILY@06 PO Last administered on 05:14; Admin Dose 75 MCG; Start 09/08/16 at 06:00 Cholecalciferol (Vitamin D) 1,000 unit DAILY PO Last administered on 09/24/16 08:52; Admin Dose 1,000 UNIT; Start 09/07/16 at 12:30 Lactobacillus Acidophilus (Florajen3 Capsule) 1 each BID PO Last administered on 09/24/16 08:52; Admin Dose 1 EACH; Start 09/09/16 at 21:00 Lorazepam (Ativan) 1 mg Q6H PRN IV Anxiety Last administered on 09/24/16 09:36 ; Admin Dose 1 MG; Start 09/10/16 at 11:30 Lactulose (Enulose) 30 gm BID PRN PO CONSTIPATION; Start 4/25/17 at 11:30 Moxifloxacin HCl (Vigamox) 1 drop TID BOTH EYES Last administered on 09/24/16 12:11; Admin Dose 1 DROP; Start 09/18/16 at 21:30 Hydralazine HCl (Apresoline) 25 mg TID PO Last administered on 09/24/16 12:11; Admin Dose 25 MG; Start 09/19/16 at 09:00 Hydralazine HCl (Apresoline) 10 mg Q4H PRN IV ELEVATED SYSTOLIC BP Last administered on 09/24/16 08:01; Admin Dose 10 MG; Start 09/19/16 at 01:00 Furosemide (Lasix) 40 mg DAILY PO ; Start 09/20/16 at 09:00; Status Future Hold Doxazosin Mesylate (Cardura) 4 mg HS PO Last administered on 09/23/16 21:16; Admin Dose 4 MG; Start 09/21/16 at 21:00 Linezolid (Zyvox) 600 mg BID PO Last administered on 09/24/16 08:52; Admin Dose 600 MG; Start 09/22/16 at 21:00 Nifedipine (Procardia Xl) 60 mg BID PO Last administered on 09/24/16 09:00; Admin Dose 60 MG; Start 09/24/16 at 09:00 BETTIE PLASENCIA MD September 24, 2016 14:56
[2016-09-24 19:15] VITALS: BP 130/73; RESP 18
[2016-09-24] MEDS: DOXAZOSIN 4 MG TAB PO SCH (21:19)
[2016-09-25] MEDS: ACCU-CHEK XX SCH (02:07)
[2016-09-25] MEDS: LEVOTHYROXINE 75 MCG TAB PO SCH (06:13)
[2016-09-25] MEDS: ONDANSETRON 4 MG INJ IV PRN ×3 (06:13→21:10)
[2016-09-25] MEDS: morphine 4 MG/ML VIAL IV PRN ×3 (06:13→21:14)
[2016-09-25] MEDS: INSULIN ASPART [NOVOLOG] 3 ML PEN SC SCH ×4 (07:46→21:00)
[2016-09-25 08:20] VITALS: BP 153/81; RESP 18
[2016-09-25] MEDS: ISOSORBIDE DINITRATE 20 MG TAB PO SCH ×3 (09:37→21:11)
[2016-09-25] MEDS: CHOLECALCIFEROL 1,000 UNIT TAB PO SCH (09:37)
[2016-09-25] MEDS: ZYVOX 600 MG TAB PO SCH ×2 (09:37→21:12)
[2016-09-25] MEDS: FAMOTIDINE 20 MG TAB PO SCH (09:37)
[2016-09-25] MEDS: L ACIDOPHIL/B LACTIS/B LONGUM CAPSULE PO SCH ×2 (09:37→21:10)
[2016-09-25] MEDS: FINASTERIDE 5 MG TAB PO SCH (09:37)
[2016-09-25] MEDS: SEVELAMER 800 MG TAB PO SCH ×3 (09:37→17:35)
[2016-09-25] MEDS: MOXIFLOXACIN 0.5% 3 ML OPH BOTH EYES SCH ×3 (09:38→21:09)
[2016-09-25] MEDS: HEPARIN 5,000 UNIT/0.5 ML VIAL SC SCH ×2 (09:39→21:14)
[2016-09-25] MEDS: NIFEdipine (XL) 60 MG TAB PO SCH ×2 (09:39→21:11)
[2016-09-25] MEDS: LORAZEPAM 2 MG INJ IV PRN ×2 (09:49→16:14)
--- NOTE | 2016-09-25 11:31 | PN ---
DATE: 09/25/2016 SUBJECTIVE: The patient is stable. No vents overnight. No fevers, chills, nausea, vomiting. OBJECTIVE: VITAL SIGNS: Blood pressure is 152/81, respiration 18, pulse 78, temperature 97.4. HEENT: Head is normocephalic. NECK: Supple. HEART: Regular rate. LUNGS: Show diminished breath sounds at the base. ABDOMEN: Soft, nontender to palpation without rebound or guarding. EXTREMITIES: Negative for clubbing, cyanosis, no edema. DERMATOLOGIC: No rashes. MUSCULOSKELETAL: No joint effusions. NEUROLOGIC: No change in exam. MEDICATIONS: The patient's medications have been reviewed. LABORATORY DATA: Sodium 135, potassium 4.6, hematocrit 51, creatinine 2.63. White count, CBC revie thu. ASSESSMENT AND PLAN: 1. Nonoliguric acute kidney injury on top of chronic kidney disease stage IV with a baseline creati nine around 3 mg/dL. Etiology of acute kidney injury is secondary to acute tubular necrosis. The p atient is currently off hemodialysis for approximately 2 weeks. ____ current treatment plan, suppor tive care, renally dose all meds. 2. Hyponatremia, improved. Continue telemetry water intake. 3. Volume overload, clinically improved. Will give intermittent Lasix as needed. 4. Hypertension. Continue current blood pressure regimen. 5. Anemia of chronic disease. Continue to monitor H and H levels. 6. Diabetes. Continue Accu-Cheks and sliding scale. 7. Benign prostatic hypertrophy. Continue current medical management. 8. Mineral bone disorder. Continue to monitor calcium and phosphorus levels. 9. Hepatitis C. Continue to monitor. 10. Right eye conjunctivitis, improving. Continue to monitor. Dictated By: NAE SINHA/ERICKA Conf#: [id number] DID#: [id number]
--- NOTE | 2016-09-25 12:25 | CONS ---
Date/Time of Note Date/Time of Note DATE: 09/25/16 TIME: 12:24 Assessment/Plan Assessment/Plan Chief Complaint/Hosp Course SUBJECTIVE: No events overnight. The patient is alert, in no distress. No fevers. No vomiting or diarrhea. C/o L ear pain ANTIMICROBIALS: 1. Oral Zyvox. 2. Vigamox eyedrops. PHYSICAL EXAMINATION: GENERAL: Chronically ill-appearing, middle-aged man who is in no distress. HEENT: Head atraumatic, normocephalic. Right eye still with some redness but no drainage. Buccal mucosa dry. NECK: Supple. CHEST: Rise symmetrical. Breath sounds clear, diminished to bases. HEART: S1, S2. ABDOMEN: Soft, bowel tones present. EXTREMITIES: Without cyanosis. ASSESSMENT: 1. Right conjunctivitis. Drainage of the eye grew VRE and corynebacterium group JK. 3. Status post urinary tract infection. 4. History of spinal abscess diskitis, status post surgical intervention, completed long-term antibiotics. 5. Acute on chronic kidney disease status post hemodialysis. 6. L each ache, hx of otomastoiditis PLAN: Will order facial CT. Continue present care. Continue on current antimicrobials. DW staff Problems: Consultation Date/Type/Reason Admit Date/Time Sep 01, 2016 at 17:29 Type of Consultation: id Exam/Review of Systems Vital Signs Vitals Vital Signs Date Time Temp Pulse Resp B/P Pulse Ox O2 Delivery O2 Flow Rate FiO2 09/25/16 08:20 97.7 75 18 153/81 96 09/24/16 21:00 Nasal Cannula 2.0 Intake and Output 09/24/16 09/24/16 09/25/16 15:00 23:00 07:00 Intake Total 640 ml 300 ml Output Total 500 ml 800 ml Balance 140 ml -500 ml Results Result Diagram: 09/23/16 0420 09/24/16 0430 Results 24 hrs Laboratory Tests Test 09/24/16 17:51 09/24/16 21:11 09/25/16 02:00 09/25/16 07:41 Bedside Glucose 118 203 158 85 Test 09/25/16 11:56 Bedside Glucose 106 Medications Medications Current Medications Finasteride (Proscar) 5 mg DAILY PO Last administered on 09/25/16t 09:37; Admin Dose 5 MG; Start 09/02/16 at 09:00 Oxycodone/ Acetaminophen (Percocet (5/ 325)) maximum total acetaminop... Q4 PRN PO PAIN LEVEL 1-5 Last administered on 09/14/16 17:57; Admin Dose 1 TAB; Start 09/01/16 at 23:00 Simethicone (Mylicon) 80 mg Q6H PRN PO DISTENSION/GAS/BLOATING Last administered on 09/17/16 21:03; Admin Dose 80 MG; Start 09/01/16 at 23:00 Heparin Sodium (Porcine) (Heparin (5000 Units/0.5 ml)) 5,000 unit Q12 SC Last administered on 09/25/16 09:39; Admin Dose 5,000 UNIT; Start 09/02/16 at 09:00; Status Future hold Morphine Sulfate (morphine) 3 mg Q4H PRN IV PAIN LEVEL 6-10 Last administered on 09/25/16 06:13; Admin Dose 3 MG; Start 09/01/16 at 23:30 Ondansetron HCl (Zofran Inj) 4 mg Q6H PRN IV NAUSEA AND/OR VOMITING Last administered on 09/25/16 06:13; Admin Dose 4 MG; Start 09/01/16 at 23:30 Diagnostic Test (Pha) (Accu-Chek) 1 ea 02 XX Last administered on 09/25/16 02: 07; Admin Dose 1 EA; Start 09/02/16 at 02:00 Isosorbide Dinitrate (Isordil) 20 mg TID PO Last administered on 09/25/16 09:37 ; Admin Dose 20 MG; Start 09/01/16 at 23:00 Miscellaneous Information 1 ea NOTE XX ; Start 09/01/16 at 23:30 Glucose (Glutose) 15 gm Q15M PRN PO DECREASED GLUCOSE; Start 09/01/16 at 23:30 Glucose (Glutose) 22.5 gm Q15M PRN PO DECREASED GLUCOSE; Start 09/01/16 at 23: 30 Dextrose (D50w Syringe) 25 ml Q15M PRN IV DECREASED GLUCOSE; Start 09/01/16 at 23:30 Dextrose (D50w Syringe) 50 ml Q15M PRN IV DECREASED GLUCOSE; Start 09/01/16 at 23:30 Glucagon (Glucagen) 1 mg Q15M PRN IM DECREASED GLUCOSE; Start 09/01/16 at 23:30 Glucose (Glutose) 15 gm Q15M PRN BUCCAL DECREASED GLUCOSE; Start 09/01/16 at 23 :30 Famotidine (Pepcid) 20 mg DAILY PO Last administered on 09/25/16 09:37; Admin Dose 20 MG; Start 09/04/16 at 09:00 Levothyroxine Sodium (Synthroid) 75 mcg DAILY@06 PO Last administered on 06:13; Admin Dose 75 MCG; Start 09/08/16 at 06:00 Cholecalciferol (Vitamin D) 1,000 unit DAILY PO Last administered on 09/25/16 09:37; Admin Dose 1,000 UNIT; Start 09/07/16 at 12:30 Lactobacillus Acidophilus (Florajen3 Capsule) 1 each BID PO Last administered on 09/25/16 09:37; Admin Dose 1 EACH; Start 09/09/16 at 21:00 Lorazepam (Ativan) 1 mg Q6H PRN IV Anxiety Last administered on 09/25/16 09:49 ; Admin Dose 1 MG; Start 09/10/16 at 11:30 Lactulose (Enulose) 30 gm BID PRN PO CONSTIPATION; Start 09/16/16 at 11:30 Moxifloxacin HCl (Vigamox) 1 drop TID BOTH EYES Last administered on 09/25/16 09:38; Admin Dose 1 DROP; Start 09/18/16 at 21:30 Hydralazine HCl (Apresoline) 25 mg TID PO Last administered on 09/25/16 09:38; Admin Dose 25 MG; Start 09/19/16 at 09:00 Hydralazine HCl (Apresoline) 10 mg Q4H PRN IV ELEVATED SYSTOLIC BP Last administered on 09/24/16 08:01; Admin Dose 10 MG; Start 09/19/16 at 01:00 Furosemide (Lasix) 40 mg DAILY PO ; Start 09/20/16 at 09:00; Status Future Hold Doxazosin Mesylate (Cardura) 4 mg HS PO Last administered on 09/24/16 21:19; Admin Dose 4 MG; Start 09/21/16 at 21:00 Linezolid (Zyvox) 600 mg BID PO Last administered on 09/25/16 09:37; Admin Dose 600 MG; Start 09/22/16 at 21:00 Nifedipine (Procardia Xl) 60 mg BID PO Last administered on 09/25/16 09:39; Admin Dose 60 MG; Start 09/24/16 at 09:00 DORENE GARCIA NP September 25, 2016 12:25
--- NOTE | 2016-09-25 15:14 | PN ---
Date/Time of Note Date/Time of Note DATE: 09/25/16 TIME: 15:12 Assessment/Plan VTE Prophylaxis VTE Prophylaxis Intervention: heparin Lines/Catheters IV Catheter Type (from Nrsg): PICC Line Central line still needed: Yes Urinary Cath still in place: No Assessment/Plan Assessment/Plan 1. Acute renal failure from ATN, improved with stable Cr after stopped HD 2. DM, stable 3. VRE conjunctivitis, on antibiotics per ID, zyvox started on 09/15/2016 4. Anemia of chronic disease. stable 5. Benign prostatic hypertrophy. Continue medical management. 6. History of diabetic retinopathy. 7. Hepatitis C 8. Hypothyroidism, on synthroid 9. DVP prophylaxis: heparin Subjective 24 Hr Interval Summary Free Text/Dictation no event. afebrile. Exam/Review of Systems Vital Signs Vitals Vital Signs Date Time Temp Pulse Resp B/P Pulse Ox O2 Delivery O2 Flow Rate FiO2 09/25/16 08:20 97.7 75 18 153/81 96 09/25/16 08:15 Nasal Cannula 2.0 Intake and Output 09/24/16 09/24/16 09/25/16 15:00 23:00 07:00 Intake Total 640 ml 300 ml Output Total 500 ml 800 ml Balance 140 ml -500 ml Exam Constitutional: alert, oriented, well developed Psych: nl mood/affect, no complaints Head: atraumatic, normocephalic Eyes: EOMI, PERRL, nl lids, other (right on right eye) ENMT: nl external ears & nose, nl lips & teeth, nl nasal mucosa & septum Neck: non-tender, supple Respiratory: clear to auscultation, normal air movement, No congested cough, No crackles/rales, No diminished breath sounds, No intercostal retraction, No labored breathing, No other, No respirations, No tactile fremitus, No wheezing Cardiovascular: nl pulses, regular rate and rhythm, No S3, No S4, No bruits, No diastolic murmur, No edema, No gallop, No irregular rhythm, No jugular venous distention (JVD), No murmurs/extra sounds, No other, No rub, No systolic murmur Gastrointestinal: nl liver, spleen, non-tender, soft, No ascites, No bowel sounds, No distended, No firm, No hepatomegaly, No mass , No other, No rebound or guarding, No splenomegaly, No surgical scars, No tender Musculoskeletal: nl extremities to inspection Extremities: normal pulses, No calf tenderness, No clubbing, No cyanosis, No edema, No other, No palpable cord, No pitting pedal edema, No tenderness Neurological: HEAD COUNSELOR II-XII intact, nl mental status, nl speech, nl strength Skin: nl turgor Lymph: nl lymph nodes Results Result Diagram: 09/23/16 0420 09/24/16 0430 Results 24 hrs Laboratory Tests Test 09/24/16 17:51 09/24/16 21:11 09/25/16 02:00 09/25/16 07:41 Bedside Glucose 118 203 158 85 Test 09/25/16 11:56 Bedside Glucose 106 Medications Medications Current Medications Finasteride (Proscar) 5 mg DAILY PO Last administered on 09/25/16 09:37; Admin Dose 5 MG; Start 09/02/16 at 09:00 Oxycodone/ Acetaminophen (Percocet (5/ 325)) maximum total acetaminop... Q4 PRN PO PAIN LEVEL 1-5 Last administered on 09/14/16 17:57; Admin Dose 1 TAB; Start 09/01/16 at 23:00 Simethicone (Mylicon) 80 mg Q6H PRN PO DISTENSION/GAS/BLOATING Last administered on 09/17/16 21:03; Admin Dose 80 MG; Start 09/01/16 at 23:00 Heparin Sodium (Porcine) (Heparin (5000 Units/0.5 ml)) 5,000 unit Q12 SC Last administered on 09/25/16 09:39; Admin Dose 5,000 UNIT; Start 09/02/16 at 09:00; Status Future hold Morphine Sulfate (morphine) 3 mg Q4H PRN IV PAIN LEVEL 6-10 Last administered on 09/25/16 12:49; Admin Dose 3 MG; Start 09/01/16 at 23:30 Ondansetron HCl (Zofran Inj) 4 mg Q6H PRN IV NAUSEA AND/OR VOMITING Last administered on 09/25/16 12:47; Admin Dose 4 MG; Start 09/01/16 at 23:30 Diagnostic Test (Pha) (Accu-Chek) 1 ea 02 XX Last administered on 09/25/16 02: 07; Admin Dose 1 EA; Start 09/02/16 at 02:00 Isosorbide Dinitrate (Isordil) 20 mg TID PO Last administered on 09/25/16 12:47 ; Admin Dose 20 MG; Start 09/01/16 at 23:00 Miscellaneous Information 1 ea NOTE XX ; Start 09/01/16 at 23:30 Glucose (Glutose) 15 gm Q15M PRN PO DECREASED GLUCOSE; Start 09/01/16 at 23:30 Glucose (Glutose) 22.5 gm Q15M PRN PO DECREASED GLUCOSE; Start 09/01/16 at 23: 30 Dextrose (D50w Syringe) 25 ml Q15M PRN IV DECREASED GLUCOSE; Start 09/01/16 at 23:30 Dextrose (D50w Syringe) 50 ml Q15M PRN IV DECREASED GLUCOSE; Start 09/01/16 at 23:30 Glucagon (Glucagen) 1 mg Q15M PRN IM DECREASED GLUCOSE; Start 09/01/16 at 23:30 Glucose (Glutose) 15 gm Q15M PRN BUCCAL DECREASED GLUCOSE; Start 09/01/16 at 23 :30 Famotidine (Pepcid) 20 mg DAILY PO Last administered on 09/25/16 09:37; Admin Dose 20 MG; Start 09/04/16 at 09:00 Levothyroxine Sodium (Synthroid) 75 mcg DAILY@06 PO Last administered on 06:13; Admin Dose 75 MCG; Start 09/08/16 at 06:00 Cholecalciferol (Vitamin D) 1,000 unit DAILY PO Last administered on 09/25/16 09:37; Admin Dose 1,000 UNIT; Start 09/07/16 at 12:30 Lactobacillus Acidophilus (Florajen3 Capsule) 1 each BID PO Last administered on 09/25/16 09:37; Admin Dose 1 EACH; Start 09/09/16 at 21:00 Lorazepam (Ativan) 1 mg Q6H PRN IV Anxiety Last administered on 09/25/16 09:49 ; Admin Dose 1 MG; Start 09/10/16 at 11:30 Lactulose (Enulose) 30 gm BID PRN PO CONSTIPATION; Start 09/16/16 at 11:30 Moxifloxacin HCl (Vigamox) 1 drop TID BOTH EYES Last administered on 09/25/16 12:47; Admin Dose 1 DROP; Start 09/18/16 at 21:30 Hydralazine HCl (Apresoline) 25 mg TID PO Last administered on 09/25/16 12:47; Admin Dose 25 MG; Start 09/19/16 at 09:00 Hydralazine HCl (Apresoline) 10 mg Q4H PRN IV ELEVATED SYSTOLIC BP Last administered on 09/24/16 08:01; Admin Dose 10 MG; Start 09/19/16 at 01:00 Furosemide (Lasix) 40 mg DAILY PO ; Start 09/20/16 at 09:00; Status Future Hold Doxazosin Mesylate (Cardura) 4 mg HS PO Last administered on 09/24/16 21:19; Admin Dose 4 MG; Start 09/21/16 at 21:00 Linezolid (Zyvox) 600 mg BID PO Last administered on 09/25/16 09:37; Admin Dose 600 MG; Start 09/22/16 at 21:00 Nifedipine (Procardia Xl) 60 mg BID PO Last administered on 09/25/16 09:39; Admin Dose 60 MG; Start 09/24/16 at 09:00 BETTIE PLASENCIA MD September 25, 2016 15:14
--- NOTE | 2016-09-25 16:09 | RADRPT ---
PROCEDURE: CT facial bones CLINICAL INDICATION: Left ear pain , osteomyelitis TECHNIQUE: A CT of the facial bones was performed on a multidetector CT scanner utilizing thin axi al images. Sagittal and coronal reconstructions were provided. The CTDIvol is 29 mGy and the DLP i s 591mGy-cm. One or more of the following dose reduction techniques were used: Automated exposure c ontrol, Adjustment of the mA and/or kV according to patient size, and/or use of iterative reconstruc tion technique. COMPARISON: Head CT 09/18/2016 FINDINGS: Mild scattered paranasal sinus mucosal thickening. No layering paranasal sinus fluid seen. Trace r ight mastoid effusion. Completely opacified left middle ear cavity and left mastoid. The osseous stephy rder with a left sigmoid sinus and left tegmen tympani are grossly intact. The left ear ossicles rem ain grossly intact. No aggressive erosive changes are seen. IMPRESSION: Completely opacified left middle ear cavity and left mastoid compatible with left otomastoiditis. N o aggressive erosive changes are seen to suggest coalescent mastoiditis. Trace right mastoid fluid. Mild paranasal sinus mucosal thickening. RPTAT: AA .Uriel Brownlee MD, MD Date Time Electronically viewed and signed by .Uriel Brownlee MD, on 09/25/2016 16:09 .T/
[2016-09-25 16:30] VITALS: BP 138/76; PULSE 76; RESP 16
[2016-09-25 19:20] VITALS: BP 176/95; RESP 18
[2016-09-25] MEDS: DOXAZOSIN 4 MG TAB PO SCH (21:11)
[2016-09-26] VITALS: BP 145/78
[2016-09-26] MEDS: LORAZEPAM 2 MG INJ IV PRN ×2 (00:39→12:47)
[2016-09-26] MEDS: ACCU-CHEK XX SCH ×2 (01:19→20:20)
[2016-09-26] MEDS: morphine 4 MG/ML VIAL IV PRN ×3 (04:34→18:46)
[2016-09-26] MEDS: LEVOTHYROXINE 75 MCG TAB PO SCH (05:27)
[2016-09-26 05:44] LABS: CALCIUM 8.3 mg/dl (8.4-10.2); CREATININE 2.65 mg/dl (0.61-1.24); MAGNESIUM 2.4 mg/dl (1.7-2.5); PHOSPHORUS 3.9 mg/dl (2.5-4.9); POTASSIUM 4.9 mmol/L (3.5-5.1)
[2016-09-26] MEDS: INSULIN ASPART [NOVOLOG] 3 ML PEN SC SCH ×4 (07:51→20:19)
[2016-09-26 08:08] VITALS: BP 161/86; RESP 18
[2016-09-26] MEDS: ISOSORBIDE DINITRATE 20 MG TAB PO SCH ×3 (08:42→20:18)
[2016-09-26] MEDS: SEVELAMER 800 MG TAB PO SCH ×3 (08:42→17:55)
[2016-09-26] MEDS: FAMOTIDINE 20 MG TAB PO SCH (08:42)
[2016-09-26] MEDS: NIFEdipine (XL) 60 MG TAB PO SCH ×2 (08:43→20:18)
[2016-09-26] MEDS: FINASTERIDE 5 MG TAB PO SCH (08:43)
[2016-09-26] MEDS: CHOLECALCIFEROL 1,000 UNIT TAB PO SCH (08:43)
[2016-09-26] MEDS: MOXIFLOXACIN 0.5% 3 ML OPH BOTH EYES SCH ×3 (08:43→20:16)
[2016-09-26] MEDS: ZYVOX 600 MG TAB PO SCH ×2 (08:43→20:19)
[2016-09-26] MEDS: ONDANSETRON 4 MG INJ IV PRN ×2 (08:44→17:58)
[2016-09-26] MEDS: HEPARIN 5,000 UNIT/0.5 ML VIAL SC SCH ×2 (08:45→20:20)
[2016-09-26] MEDS: L ACIDOPHIL/B LACTIS/B LONGUM CAPSULE PO SCH ×3 (09:00→20:18)
[2016-09-26 10:47] VITALS: BP 138/80; PULSE 60
--- NOTE | 2016-09-26 13:25 | PN ---
DATE: 09/26/2016 SUBJECTIVE: The patient is stable, no acute events overnight. No fevers, chills, nausea, vomiting. No shortness of breath. OBJECTIVE: VITAL SIGNS: Blood pressure 138/80, respirations 18, pulse 70, temperature 97.6. HEENT: Head is normocephalic. NECK: Supple. HEART: Regular rate. LUNGS: Show diminished breath sounds at the bases. ABDOMEN: Soft, nontender to palpation. No rebound or guarding. EXTREMITIES: Negative for clubbing, cyanosis. Trace edema. DERMATOLOGIC: No rashes. MUSCULOSKELETAL: No joint effusions. NEUROLOGIC: No change in exam. MEDICATIONS: The patient's medications have been reviewed. LABORATORY DATA: Shows sodium 135, potassium 4.9, chloride 100, BUN 53, creatinine 2.65. CBC was r eviewed. Imaging studies were reviewed. ASSESSMENT AND PLAN: 1. Nonoliguric acute kidney injury on top of chronic kidney disease stage IV with previous baseline creatinine around 3.0 mg/dL. Etiology of acute kidney injury is secondary to acute tubular necrosi s. The patient's renal function has recovered, currently stable around a creatinine of 2.6 to 2.8 m g/dL. At this point, continue treatment plan, supportive care, renally dose all meds. 2. Hyponatremia, improved. Continue free water restriction. 3. Volume overload, clinically improving. May give intermittent diuretic therapy as needed. 4. Hypertension. Continue current blood pressure regimen. 5. Anemia of chronic disease. Continue to monitor hemoglobin and hematocrit levels. 6. Diabetes. Continue Accu-Cheks and insulin sliding scale. 7. Benign prostatic hypertrophy. Continue current medical management. 8. Mineral bone disorder. Continue to monitor calcium and phosphorus levels. 9. Hepatitis C. Continue to monitor. 10. Status post conjunctivitis. Dictated By: NAE SINHA/ERICKA Conf#: [id number] DID#: [id number]
--- NOTE | 2016-09-26 13:46 | CONS ---
Date/Time of Note Date/Time of Note DATE: 09/26/16 TIME: 13:45 Assessment/Plan Assessment/Plan Chief Complaint/Hosp Course SUBJECTIVE: No events overnight. The patient is alert, in no distress. No fevers. No vomiting or diarrhea. ANTIMICROBIALS: 1. Oral Zyvox. 2. Vigamox eyedrops. PHYSICAL EXAMINATION: GENERAL: Chronically ill-appearing, middle-aged man who is in no distress. HEENT: Head atraumatic, normocephalic. Right eye still with some redness but no drainage. Buccal mucosa dry. NECK: Supple. CHEST: Rise symmetrical. Breath sounds clear, diminished to bases. HEART: S1, S2. ABDOMEN: Soft, bowel tones present. EXTREMITIES: Without cyanosis. ASSESSMENT: 1. Right conjunctivitis. Drainage of the eye grew VRE and corynebacterium group JK. 3. Status post urinary tract infection. 4. History of spinal abscess diskitis, status post surgical intervention, completed long-term antibiotics. 5. Acute on chronic kidney disease status post hemodialysis. 6. L otomastoiditis PLAN: Add Levaquin, continue on current antimicrobials and probiotics. DW staff Problems: Consultation Date/Type/Reason Admit Date/Time Sep 01, 2016 at 17:29 Type of Consultation: id Exam/Review of Systems Vital Signs Vitals Vital Signs Date Time Temp Pulse Resp B/P Pulse Ox O2 Delivery O2 Flow Rate FiO2 09/26/16 10:47 60 138/80 09/26/16 08:20 Nasal Cannula 2.0 09/26/16 08:08 97.6 18 95 Intake and Output 09/25/16 09/25/16 09/26/16 15:00 23:00 07:00 Intake Total 800 ml 480 ml Output Total 1500 ml 700 ml Balance -700 ml -220 ml Results Result Diagram: 09/23/16 0420 09/26/16 0430 Results 24 hrs Laboratory Tests Test 09/25/16 17:25 09/25/16 17:28 09/25/16 20:53 09/25/16 21:35 Troponin I < 0.012 < 0.012 Bedside Glucose 149 130 Test 09/26/16 01:00 09/26/16 04:30 09/26/16 07:45 09/26/16 11:47 Troponin I < 0.012 Sodium Level 135 Potassium Level 4.9 Chloride Level 100 Carbon Dioxide Level 29 Anion Gap 11 Blood Urea Nitrogen 53 H Creatinine 2.65 H Glucose Level 114 # Calcium Level 8.3 L Phosphorus Level 3.9 Magnesium Level 2.4 Bedside Glucose 100 162 Medications Medications Current Medications Finasteride (Proscar) 5 mg DAILY PO Last administered on 09/26/16 08:43; Admin Dose 5 MG; Start 09/02/16 at 09:00 Oxycodone/ Acetaminophen (Percocet (5/ 325)) maximum total acetaminop... Q4 PRN PO PAIN LEVEL 1-5 Last administered on 09/14/16 17:57; Admin Dose 1 TAB; Start 09/01/16 at 23:00 Simethicone (Mylicon) 80 mg Q6H PRN PO DISTENSION/GAS/BLOATING Last administered on 09/17/16 21:03; Admin Dose 80 MG; Start 09/01/16 at 23:00 Heparin Sodium (Porcine) (Heparin (5000 Units/0.5 ml)) 5,000 unit Q12 SC Last administered on 09/26/16 08:45; Admin Dose 5,000 UNIT; Start 09/02/16 at 09:00; Status Future hold Morphine Sulfate (morphine) 3 mg Q4H PRN IV PAIN LEVEL 6-10 Last administered on 09/26/16 08:44; Admin Dose 3 MG; Start 09/01/16 at 23:30 Ondansetron HCl (Zofran Inj) 4 mg Q6H PRN IV NAUSEA AND/OR VOMITING Last administered on 09/26/16 08:44; Admin Dose 4 MG; Start 09/01/16 at 23:30 Diagnostic Test (Pha) (Accu-Chek) 1 ea 02 XX Last administered on 09/25/16 02: 07; Admin Dose 1 EA; Start 09/02/16 at 02:00 Isosorbide Dinitrate (Isordil) 20 mg TID PO Last administered on 09/26/16 12:41 ; Admin Dose 20 MG; Start 09/01/16 at 23:00 Miscellaneous Information 1 ea NOTE XX ; Start 09/01/16 at 23:30 Glucose (Glutose) 15 gm Q15M PRN PO DECREASED GLUCOSE; Start 09/01/16 at 23:30 Glucose (Glutose) 22.5 gm Q15M PRN PO DECREASED GLUCOSE; Start 09/01/16 at 23: 30 Dextrose (D50w Syringe) 25 ml Q15M PRN IV DECREASED GLUCOSE; Start 09/01/16 at 23:30 Dextrose (D50w Syringe) 50 ml Q15M PRN IV DECREASED GLUCOSE; Start 09/01/16 at 23:30 Glucagon (Glucagen) 1 mg Q15M PRN IM DECREASED GLUCOSE; Start 09/01/16 at 23:30 Glucose (Glutose) 15 gm Q15M PRN BUCCAL DECREASED GLUCOSE; Start 09/01/16 at 23 :30 Famotidine (Pepcid) 20 mg DAILY PO Last administered on 09/26/16 08:42; Admin Dose 20 MG; Start 09/04/16 at 09:00 Levothyroxine Sodium (Synthroid) 75 mcg DAILY@06 PO Last administered on 05:27; Admin Dose 75 MCG; Start 09/08/16 at 06:00 Cholecalciferol (Vitamin D) 1,000 unit DAILY PO Last administered on 09/26/16 08:43; Admin Dose 1,000 UNIT; Start 09/07/16 at 12:30 Lactobacillus Acidophilus (Florajen3 Capsule) 1 each BID PO Last administered on 09/26/16 12:40; Admin Dose 1 EACH; Start 09/09/16 at 21:00 Lorazepam (Ativan) 1 mg Q6H PRN IV Anxiety Last administered on 09/26/16 12:47 ; Admin Dose 1 MG; Start 09/10/16 at 11:30 Lactulose (Enulose) 30 gm BID PRN PO CONSTIPATION; Start 09/16/16 at 11:30 Moxifloxacin HCl (Vigamox) 1 drop TID BOTH EYES Last administered on 09/26/16 12:41; Admin Dose 1 DROP; Start 09/18/16 at 21:30 Hydralazine HCl (Apresoline) 25 mg TID PO Last administered on 09/26/16 12:41; Admin Dose 25 MG; Start 09/19/16 at 09:00 Hydralazine HCl (Apresoline) 10 mg Q4H PRN IV ELEVATED SYSTOLIC BP Last administered on 09/24/16 08:01; Admin Dose 10 MG; Start 09/19/16 at 01:00 Furosemide (Lasix) 40 mg DAILY PO ; Start 09/20/16 at 09:00; Status Future Hold Doxazosin Mesylate (Cardura) 4 mg HS PO Last administered on 09/25/16 21:11; Admin Dose 4 MG; Start 09/21/16 at 21:00 Linezolid (Zyvox) 600 mg BID PO Last administered on 09/26/16 08:43; Admin Dose 600 MG; Start 09/22/16 at 21:00 Nifedipine (Procardia Xl) 60 mg BID PO Last administered on 09/26/16 08:43; Admin Dose 60 MG; Start 09/24/16 at 09:00 DORENE GARCIA NP September 26, 2016 13:46
[2016-09-26] MEDS ORDERED: LEVOFLOXACIN 250 MG TAB PO ONE (14:00)
--- NOTE | 2016-09-26 15:10 | PN ---
Date/Time of Note Date/Time of Note DATE: 09/26/16 TIME: 15:05 Assessment/Plan VTE Prophylaxis VTE Prophylaxis Intervention: heparin Lines/Catheters IV Catheter Type (from Nrsg): PICC Line Central line still needed: Yes Urinary Cath still in place: No Assessment/Plan Assessment/Plan 1. VRE conjunctivitis, on zyvox started on 09/15/2016, Zyvox needs to be continued as long as the conjunctivitis is not cured per ID, improving with less redness 2. Acute renal failure from ATN, improved with stable Cr after stopped HD 3. DM, stable 4. Anemia of chronic disease. stable 5. Benign prostatic hypertrophy. Continue medical management. 6. History of diabetic retinopathy. 7. Hepatitis C 8. Hypothyroidism, on synthroid 9. DVP prophylaxis: heparin Exam/Review of Systems Vital Signs Vitals Vital Signs Date Time Temp Pulse Resp B/P Pulse Ox O2 Delivery O2 Flow Rate FiO2 09/26/16 10:47 60 138/80 09/26/16 08:20 Nasal Cannula 2.0 09/26/16 08:08 97.6 18 95 Intake and Output 09/25/16 09/25/16 09/26/16 15:00 23:00 07:00 Intake Total 800 ml 480 ml Output Total 1500 ml 700 ml Balance -700 ml -220 ml Exam Constitutional: alert, oriented, well developed Psych: nl mood/affect, no complaints Head: atraumatic, normocephalic Eyes: other (conjuntival injection on right) ENMT: nl external ears & nose, nl lips & teeth, nl nasal mucosa & septum Neck: non-tender, supple Respiratory: clear to auscultation, normal air movement, No congested cough, No crackles/rales, No diminished breath sounds, No intercostal retraction, No labored breathing, No other, No respirations, No tactile fremitus, No wheezing Cardiovascular: nl pulses, regular rate and rhythm, No S3, No S4, No bruits, No diastolic murmur, No edema, No gallop, No irregular rhythm, No jugular venous distention (JVD), No murmurs/extra sounds, No other, No rub, No systolic murmur Gastrointestinal: nl liver, spleen, non-tender, soft, No ascites, No bowel sounds, No distended, No firm, No hepatomegaly, No mass , No other, No rebound or guarding, No splenomegaly, No surgical scars, No tender Musculoskeletal: nl extremities to inspection Extremities: normal pulses, No calf tenderness, No clubbing, No cyanosis, No edema, No other, No palpable cord, No pitting pedal edema, No tenderness 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, nl mental status, nl speech, nl strength Skin: nl turgor Lymph: nl lymph nodes Results Result Diagram: 09/23/16 0420 09/26/16 0430 Results 24 hrs Laboratory Tests Test 09/25/16 17:25 09/25/16 17:28 09/25/16 20:53 09/25/16 21:35 Troponin I < 0.012 < 0.012 Bedside Glucose 149 130 Test 09/26/16 01:00 09/26/16 04:30 09/26/16 07:45 09/26/16 11:47 Troponin I < 0.012 Sodium Level 135 Potassium Level 4.9 Chloride Level 100 Carbon Dioxide Level 29 Anion Gap 11 Blood Urea Nitrogen 53 H Creatinine 2.65 H Glucose Level 114 # Calcium Level 8.3 L Phosphorus Level 3.9 Magnesium Level 2.4 Bedside Glucose 100 162 Medications Medications Current Medications Finasteride (Proscar) 5 mg DAILY PO Last administered on 09/26/16 08:43; Admin Dose 5 MG; Start 09/02/16 at 09:00 Oxycodone/ Acetaminophen (Percocet (5/ 325)) maximum total acetaminop... Q4 PRN PO PAIN LEVEL 1-5 Last administered on 09/14/16 17:57; Admin Dose 1 TAB; Start 09/01/16 at 23:00 Simethicone (Mylicon) 80 mg Q6H PRN PO DISTENSION/GAS/BLOATING Last administered on 09/17/16 21:03; Admin Dose 80 MG; Start 09/01/16 at 23:00 Heparin Sodium (Porcine) (Heparin (5000 Units/0.5 ml)) 5,000 unit Q12 SC Last administered on 09/26/16 08:45; Admin Dose 5,000 UNIT; Start 09/02/16 at 09:00; Status Future hold Morphine Sulfate (morphine) 3 mg Q4H PRN IV PAIN LEVEL 6-10 Last administered on 09/26/16 08:44; Admin Dose 3 MG; Start 09/01/16 at 23:30 Ondansetron HCl (Zofran Inj) 4 mg Q6H PRN IV NAUSEA AND/OR VOMITING Last administered on 09/26/16 08:44; Admin Dose 4 MG; Start 09/01/16 at 23:30 Diagnostic Test (Pha) (Accu-Chek) 1 ea 02 XX Last administered on 09/25/16 02: 07; Admin Dose 1 EA; Start 09/02/16 at 02:00 Isosorbide Dinitrate (Isordil) 20 mg TID PO Last administered on 09/26/16 12:41 ; Admin Dose 20 MG; Start 09/01/16 at 23:00 Miscellaneous Information 1 ea NOTE XX ; Start 09/01/16 at 23:30 Glucose (Glutose) 15 gm Q15M PRN PO DECREASED GLUCOSE; Start 09/01/16 at 23:30 Glucose (Glutose) 22.5 gm Q15M PRN PO DECREASED GLUCOSE; Start 09/01/16 at 23: 30 Dextrose (D50w Syringe) 25 ml Q15M PRN IV DECREASED GLUCOSE; Start 09/01/16 at 23:30 Dextrose (D50w Syringe) 50 ml Q15M PRN IV DECREASED GLUCOSE; Start 09/01/16 at 23:30 Glucagon (Glucagen) 1 mg Q15M PRN IM DECREASED GLUCOSE; Start 09/01/16 at 23:30 Glucose (Glutose) 15 gm Q15M PRN BUCCAL DECREASED GLUCOSE; Start 09/01/16 at 23 :30 Famotidine (Pepcid) 20 mg DAILY PO Last administered on 09/26/16 08:42; Admin Dose 20 MG; Start 09/04/16 at 09:00 Levothyroxine Sodium (Synthroid) 75 mcg DAILY@06 PO Last administered on 05:27; Admin Dose 75 MCG; Start 09/08/16 at 06:00 Cholecalciferol (Vitamin D) 1,000 unit DAILY PO Last administered on 09/26/16 08:43; Admin Dose 1,000 UNIT; Start 09/07/16 at 12:30 Lactobacillus Acidophilus (Florajen3 Capsule) 1 each BID PO Last administered on 09/26/16 12:40; Admin Dose 1 EACH; Start 09/09/16 at 21:00 Lorazepam (Ativan) 1 mg Q6H PRN IV Anxiety Last administered on 09/26/16 12:47 ; Admin Dose 1 MG; Start 09/10/16 at 11:30 Lactulose (Enulose) 30 gm BID PRN PO CONSTIPATION; Start 09/16/16 at 11:30 Moxifloxacin HCl (Vigamox) 1 drop TID BOTH EYES Last administered on 09/26/16 12:41; Admin Dose 1 DROP; Start 09/18/16 at 21:30 Hydralazine HCl (Apresoline) 25 mg TID PO Last administered on 09/26/16 12:41; Admin Dose 25 MG; Start 09/19/16 at 09:00 Hydralazine HCl (Apresoline) 10 mg Q4H PRN IV ELEVATED SYSTOLIC BP Last administered on 09/24/16 08:01; Admin Dose 10 MG; Start 09/19/16 at 01:00 Furosemide (Lasix) 40 mg DAILY PO ; Start 09/20/16 at 09:00; Status Future Hold Doxazosin Mesylate (Cardura) 4 mg HS PO Last administered on 09/25/16 21:11; Admin Dose 4 MG; Start 09/21/16 at 21:00 Linezolid (Zyvox) 600 mg BID PO Last administered on 09/26/16 08:43; Admin Dose 600 MG; Start 09/22/16 at 21:00 Nifedipine (Procardia Xl) 60 mg BID PO Last administered on 09/26/16 08:43; Admin Dose 60 MG; Start 09/24/16 at 09:00 Levofloxacin (Levaquin) 250 mg DAILY@06 PO ; Start 09/27/16 at 06:00 BETTIE PLASENCIA MD September 26, 2016 15:10
--- NOTE | 2016-09-26 16:40 | RADRPT ---
Vent Rate: 77 bpm RR Interval: 0 msec GA Interval: 186 msec QRS Duration: 92 msec QT Interval: 398 msec QTC Interval: 450 msec P-R-T [place]: 49 - 12 - 60 degrees Normal sinus rhythm Low voltage QRS Nonspecific T wave abnormality Abnormal ECG Electronically Signed By: Raheem Jack [id number]
[2016-09-26 19:45] VITALS: BP 160/85; RESP 18
[2016-09-26] MEDS: DOXAZOSIN 4 MG TAB PO SCH (20:18)
[2016-09-26] MEDS ORDERED: L ACIDOPHIL/B LACTIS/B LONGUM CAPSULE PO SCH (21:00)
[2016-09-27] VITALS (7 sets, daily range): BP systolic 145–197; BP diastolic 56–107; PULSE 73–83; RESP 16–18
[2016-09-27] MEDS: LORAZEPAM 2 MG INJ IV PRN ×3 (01:22→17:30)
[2016-09-27] MEDS: morphine 4 MG/ML VIAL IV PRN ×3 (02:35→20:01)
[2016-09-27] MEDS: LEVOFLOXACIN 250 MG TAB PO SCH (05:50)
[2016-09-27] MEDS: LEVOTHYROXINE 75 MCG TAB PO SCH (05:51)
[2016-09-27] MEDS: INSULIN ASPART [NOVOLOG] 3 ML PEN SC SCH ×4 (07:58→20:23)
[2016-09-27] MEDS: NIFEdipine (XL) 60 MG TAB PO SCH ×2 (07:59→20:08)
[2016-09-27] MEDS: ONDANSETRON 4 MG INJ IV PRN ×3 (08:00→22:46)
[2016-09-27] MEDS: HEPARIN 5,000 UNIT/0.5 ML VIAL SC SCH ×2 (08:01→20:10)
[2016-09-27] MEDS: FINASTERIDE 5 MG TAB PO SCH (08:02)
[2016-09-27] MEDS: ISOSORBIDE DINITRATE 20 MG TAB PO SCH ×3 (08:02→20:08)
[2016-09-27] MEDS: FAMOTIDINE 20 MG TAB PO SCH (08:02)
[2016-09-27] MEDS: SEVELAMER 800 MG TAB PO SCH ×3 (08:02→17:30)
[2016-09-27] MEDS: CHOLECALCIFEROL 1,000 UNIT TAB PO SCH (08:02)
[2016-09-27] MEDS: MOXIFLOXACIN 0.5% 3 ML OPH BOTH EYES SCH ×3 (08:03→20:35)
[2016-09-27] MEDS: ZYVOX 600 MG TAB PO SCH ×2 (08:03→20:07)
[2016-09-27] MEDS: L ACIDOPHIL/B LACTIS/B LONGUM CAPSULE PO SCH ×2 (08:04→20:07)
--- NOTE | 2016-09-27 08:26 | PN ---
Date/Time of Note Date/Time of Note DATE: 09/27/16 TIME: 08:20 Assessment/Plan VTE Prophylaxis VTE Prophylaxis Intervention: heparin Lines/Catheters [facility] P[facility] Line Central line still needed: Yes Urinary Cath still in place: No Assessment/Plan Problems: (1) Chronic alcoholic pancreatitis Status: Chronic Comment: Noted. This is not presently active although that is largely due to the fact we have had him away from alcohol due to the prolonged hospitalization. No overt evidence of pancreatic exocrine insufficiency (2) CKD (chronic kidney disease) stage 3, GFR 30-59 ml/min Status: Chronic Comment: He is stable at baseline state. Nephrology is following. (3) BPH (benign prostatic hypertrophy) with urinary obstruction Status: Chronic Comment: Noted. He is on both 5 alpha reductase inhibitor and alpha blockade. We have room to move up on the alpha blockade to assist with the blood pressure (4) VRE infection (vancomycin resistant enterococcus), with multi-drug resistance Status: Acute Comment: He is on antibiotic therapy and infectious disease is following. I am curious as to their opinion about 1 we can look towards discharge. (5) MRSA (methicillin resistant staph aureus) culture positive Status: Chronic Comment: On treatment successfully (6) Diabetes mellitus due to underlying condition with diabetic polyneuropathy, with long-term current use of insulin Status: Chronic Comment: His blood sugar control is adequate on the current regimen. Please note as noted in my earlier dictations he should be treated as a type I diabetic due to the probability he has very little pancreatic reserve. We can count some insulin production from this gentleman was pancreas but not much (7) Alcoholism Status: Chronic Comment: As above he is away from any time for were reviewed the concern for withdrawal or DTs (8) Diskitis Status: Chronic Comment: Remains on antibiotics for this infection. Qualifiers: Spinal region: lumbar Qualified Code: M46.46 - Discitis of lumbar region (9) HTN (hypertension) Status: Chronic Comment: Patient's blood pressure is been higher. Then a go ahead and increase the alpha blockade. I am curious as to nephrology's opinion about adjusting dosages on A2 receptor cheli agent Qualifiers: Hypertension type: essential hypertension Qualified Code: I10 - Essential hypertension (10) Hepatitis C, chronic Status: Chronic Comment: Noted. He is not presently a candidate for treatment Qualifiers: Hepatic coma status: without hepatic coma Qualified Code: B18.2 - Chronic hepatitis C without hepatic coma (11) Hypothyroidism (acquired) Status: Chronic Comment: Stable on replacement. (12) Onychomycosis due to dermatophyte Status: Acute Comment: Noted. Consider pulse therapy Subjective 24 Hr Interval Summary Free Text/Dictation Patient reports overall he is feeling somewhat better. Complains of left ear pain. Constitutional: no complaints (Denies fevers chills or sweats) Eyes: other (Reports eyes better) ENT: other (Left ear pain without dizziness loss of hearing) Respiratory: no complaints Cardiovascular: no complaints Gastrointestinal: no complaints Exam/Review of Systems Vital Signs Vitals Vital Signs Date Time Temp Pulse Resp B/P Pulse Ox O2 Delivery O2 Flow Rate FiO2 09/27/16 08:11 83 197/107 09/26/16 19:45 97.5 18 95 09/26/16 08:20 Nasal Cannula 2.0 Intake and Output 09/26/16 09/26/16 09/27/16 15:00 23:00 07:00 Intake Total 550 ml 120 ml Output Total 800 ml 800 ml Balance -250 ml -680 ml Exam Constitutional: alert, oriented Head: atraumatic, normocephalic ENMT: other (Left ear canal inflamed) Respiratory: clear to auscultation, normal air movement Cardiovascular: nl pulses, regular rate and rhythm Gastrointestinal: nl liver, spleen, non-tender, soft Results Result Diagram: 09/23/16 0420 09/26/16 0430 Results 24 hrs Laboratory Tests Test 09/26/16 11:47 09/26/16 17:43 09/26/16 20:14 09/27/16 07:44 Bedside Glucose 162 172 155 98 Medications Medications Current Medications Finasteride (Proscar) 5 mg DAILY PO Last administered on 09/27/16 08:02; Admin Dose 5 MG; Start 09/02/16 at 09:00 Oxycodone/ Acetaminophen (Percocet (5/ 325)) maximum total acetaminop... Q4 PRN PO PAIN LEVEL 1-5 Last administered on 09/14/16 17:57; Admin Dose 1 TAB; Start 09/01/16 at 23:00 Simethicone (Mylicon) 80 mg Q6H PRN PO DISTENSION/GAS/BLOATING Last administered on 09/17/16 21:03; Admin Dose 80 MG; Start 09/01/16 at 23:00 Heparin Sodium (Porcine) (Heparin (5000 Units/0.5 ml)) 5,000 unit Q12 SC Last administered on 09/27/16 08:01; Admin Dose 5,000 UNIT; Start 09/02/16 at 09:00; Status Future hold Morphine Sulfate (morphine) 3 mg Q4H PRN IV PAIN LEVEL 6-10 Last administered on 09/27/16 06:42; Admin Dose 3 MG; Start 09/01/16 at 23:30 Ondansetron HCl (Zofran Inj) 4 mg Q6H PRN IV NAUSEA AND/OR VOMITING Last administered on 09/27/16 08:00; Admin Dose 4 MG; Start 09/01/16 at 23:30 Diagnostic Test (Pha) (Accu-Chek) 1 ea 02 XX Last administered on 09/25/16 02: 07; Admin Dose 1 EA; Start 09/02/16 at 02:00 Isosorbide Dinitrate (Isordil) 20 mg TID PO Last administered on 09/27/16 08:02 ; Admin Dose 20 MG; Start 09/01/16 at 23:00 Miscellaneous Information 1 ea NOTE XX ; Start 09/01/16 at 23:30 Glucose (Glutose) 15 gm Q15M PRN PO DECREASED GLUCOSE; Start 09/01/16 at 23:30 Glucose (Glutose) 22.5 gm Q15M PRN PO DECREASED GLUCOSE; Start 09/01/16 at 23: 30 Dextrose (D50w Syringe) 25 ml Q15M PRN IV DECREASED GLUCOSE; Start 09/01/16 at 23:30 Dextrose (D50w Syringe) 50 ml Q15M PRN IV DECREASED GLUCOSE; Start 09/01/16 at 23:30 Glucagon (Glucagen) 1 mg Q15M PRN IM DECREASED GLUCOSE; Start 09/01/16 at 23:30 Glucose (Glutose) 15 gm Q15M PRN BUCCAL DECREASED GLUCOSE; Start 09/01/16 at 23 :30 Famotidine (Pepcid) 20 mg DAILY PO Last administered on 09/27/16 08:02; Admin Dose 20 MG; Start 09/04/16 at 09:00 Levothyroxine Sodium (Synthroid) 75 mcg DAILY@06 PO Last administered on 05:51; Admin Dose 75 MCG; Start 09/08/16 at 06:00 Cholecalciferol (Vitamin D) 1,000 unit DAILY PO Last administered on 09/27/16 08:02; Admin Dose 1,000 UNIT; Start 09/07/16 at 12:30 Lactobacillus Acidophilus (Florajen3 Capsule) 1 each BID PO Last administered on 09/27/16 08:04; Admin Dose 1 EACH; Start 09/09/16 at 21:00 Lorazepam (Ativan) 1 mg Q6H PRN IV Anxiety Last administered on 09/27/16 08:19 ; Admin Dose 1 MG; Start 09/10/16 at 11:30 Lactulose (Enulose) 30 gm BID PRN PO CONSTIPATION; Start 09/16/16 at 11:30 Moxifloxacin HCl (Vigamox) 1 drop TID BOTH EYES Last administered on 09/27/16 08:03; Admin Dose 1 DROP; Start 09/18/16 at 21:30 Hydralazine HCl (Apresoline) 25 mg TID PO Last administered on 09/27/16 08:02; Admin Dose 25 MG; Start 09/19/16 at 09:00 Hydralazine HCl (Apresoline) 10 mg Q4H PRN IV ELEVATED SYSTOLIC BP Last administered on 09/24/16 08:01; Admin Dose 10 MG; Start 09/19/16 at 01:00 Furosemide (Lasix) 40 mg DAILY PO ; Start 09/20/16 at 09:00; Status Future Hold Linezolid (Zyvox) 600 mg BID PO Last administered on 09/27/16 08:03; Admin Dose 600 MG; Start 09/22/16 at 21:00 Nifedipine (Procardia Xl) 60 mg BID PO Last administered on 09/27/16 07:59; Admin Dose 60 MG; Start 09/24/16 at 09:00 Levofloxacin (Levaquin) 250 mg DAILY@06 PO Last administered on 09/27/16 05:50 ; Admin Dose 250 MG; Start 09/27/16 at 06:00 Doxazosin Mesylate (Cardura) 8 mg HS PO ; Start 09/27/16 at 21:00 BELEN ROSALES MD September 27, 2016 08:26
[2016-09-27] MEDS: NEOMYC/POLYMYX/HC 10 ML OTIC SUSP LEFT EAR SCH ×4 (09:55→20:26)
[2016-09-27] MEDS: TERBINAFINE 250 MG TAB PO SCH ×2 (09:55→20:07)
--- NOTE | 2016-09-27 12:24 | PN ---
DATE: 09/27/2016 SUBJECTIVE: The patient is stable, no acute events overnight. No fevers, chills, nausea, or vomiti ng. OBJECTIVE: VITAL SIGNS: Blood pressure is 153/56, respirations 16, pulse 72, temperature 97.5. HEENT: Head is normocephalic. NECK: Supple. HEART: Regular rate. LUNGS: Showed diminished breath sounds at the base. ABDOMEN: Soft, nontender to palpation. No rebound or guarding. EXTREMITIES: Negative for clubbing or cyanosis. Trace edema. DERMATOLOGIC: No rashes. MUSCULOSKELETAL: Have no joint effusion. NEUROLOGIC: No change in exam. MEDICATIONS: The patient's medications have been reviewed. LABORATORY DATA: Have been reviewed. No new labs. ASSESSMENT AND PLAN: 1. Nonoliguric acute kidney injury on top of chronic kidney disease stage IV, with a previous basel ine creatinine around 3.0 mg/dL. Etiology of acute kidney injury is secondary to acute tubular necr osis. The patient is status post hemodialysis. The patient's renal function has been recovered and appears to have stabilized around a creatinine of 2.6 to 2.8 mg/dL. At this point, continue the cu rrent treatment plan, supportive care, renally dose all meds, and avoid nephrotoxins. 2. Hyponatremia. Improved. Continue free water restriction. 3. Volume overload. Clinically improved. Will give intermittent diuretic therapy as needed. 4. Hypertension. Continue the current blood pressure regimen. 5. Anemia. Continue to monitor H and H levels. 6. Diabetes. Continue Accu-Cheks and insulin sliding scale. 7. Benign prostatic hypertrophy. Continue the current treatment plan. 8. Mineral bone disorder. Continue to monitor calcium and phosphorus levels. 9. History of hepatitis C. Dictated By: NAE SINHA/ERICKA Conf#: [id number] DID#: [id number]
--- NOTE | 2016-09-27 20:09 | CONS ---
Date/Time of Note Date/Time of Note DATE: 09/27/16 TIME: 20:08 Assessment/Plan Assessment/Plan Chief Complaint/Hosp Course SUBJECTIVE: No events overnight. The patient is alert, in no distress. No fevers. No vomiting or diarrhea. ANTIMICROBIALS: 1. Oral Zyvox. 2. Vigamox eyedrops. 3. Levaquin qod PHYSICAL EXAMINATION: GENERAL: Chronically ill-appearing, middle-aged man who is in no distress. HEENT: Head atraumatic, normocephalic. Right eye still with some redness but no drainage. Buccal mucosa dry. NECK: Supple. CHEST: Rise symmetrical. Breath sounds clear, diminished to bases. HEART: S1, S2. ABDOMEN: Soft, bowel tones present. EXTREMITIES: Without cyanosis. ASSESSMENT: 1. Right conjunctivitis. Drainage of the eye grew VRE and corynebacterium group JK. 3. Status post urinary tract infection. 4. History of spinal abscess diskitis, status post surgical intervention, completed long-term antibiotics. 5. Acute on chronic kidney disease status post hemodialysis. 6. L otomastoiditis PLAN: Remains unchanged, continue on current antimicrobials and probiotics. DW staff Problems: Consultation Date/Type/Reason Admit Date/Time Sep 01, 2016 at 17:29 Type of Consultation: id Exam/Review of Systems Vital Signs Vitals Vital Signs Date Time Temp Pulse Resp B/P Pulse Ox O2 Delivery O2 Flow Rate FiO2 09/27/16 12:12 80 153/69 09/27/16 09:00 Nasal Cannula 2.0 09/27/16 07:05 98.2 16 97 Intake and Output 09/26/16 09/26/16 09/27/16 15:00 23:00 07:00 Intake Total 550 ml 120 ml Output Total 800 ml 800 ml Balance -250 ml -680 ml Results Result Diagram: 09/23/16 0420 09/26/16 0430 Results 24 hrs Laboratory Tests Test 09/26/16 20:14 09/27/16 07:44 09/27/16 12:03 09/27/16 17:29 Bedside Glucose 155 98 91 132 Medications Medications Current Medications Finasteride (Proscar) 5 mg DAILY PO Last administered on 09/27/16t 08:02; Admin Dose 5 MG; Start 09/02/16 at 09:00 Oxycodone/ Acetaminophen (Percocet (5/ 325)) maximum total acetaminop... Q4 PRN PO PAIN LEVEL 1-5 Last administered on 09/14/16 17:57; Admin Dose 1 TAB; Start 09/01/16 at 23:00 Simethicone (Mylicon) 80 mg Q6H PRN PO DISTENSION/GAS/BLOATING Last administered on 09/17/16 21:03; Admin Dose 80 MG; Start 09/01/16 at 23:00 Heparin Sodium (Porcine) (Heparin (5000 Units/0.5 ml)) 5,000 unit Q12 SC Last administered on 09/27/16 08:01; Admin Dose 5,000 UNIT; Start 09/02/16 at 09:00; Status Future hold Morphine Sulfate (morphine) 3 mg Q4H PRN IV PAIN LEVEL 6-10 Last administered on 09/27/16 06:42; Admin Dose 3 MG; Start 09/01/16 at 23:30 Ondansetron HCl (Zofran Inj) 4 mg Q6H PRN IV NAUSEA AND/OR VOMITING Last administered on 09/27/16 15:05; Admin Dose 4 MG; Start 09/01/16 at 23:30 Diagnostic Test (Pha) (Accu-Chek) 1 ea 02 XX Last administered on 09/25/16 02: 07; Admin Dose 1 EA; Start 09/02/16 at 02:00 Isosorbide Dinitrate (Isordil) 20 mg TID PO Last administered on 09/27/16 12:06 ; Admin Dose 20 MG; Start 09/01/16 at 23:00 Miscellaneous Information 1 ea NOTE XX ; Start 09/01/16 at 23:30 Glucose (Glutose) 15 gm Q15M PRN PO DECREASED GLUCOSE; Start 09/01/16 at 23:30 Glucose (Glutose) 22.5 gm Q15M PRN PO DECREASED GLUCOSE; Start 09/01/16 at 23: 30 Dextrose (D50w Syringe) 25 ml Q15M PRN IV DECREASED GLUCOSE; Start 09/01/16 at 23:30 Dextrose (D50w Syringe) 50 ml Q15M PRN IV DECREASED GLUCOSE; Start 09/01/16 at 23:30 Glucagon (Glucagen) 1 mg Q15M PRN IM DECREASED GLUCOSE; Start 09/01/16 at 23:30 Glucose (Glutose) 15 gm Q15M PRN BUCCAL DECREASED GLUCOSE; Start 09/01/16 at 23 :30 Famotidine (Pepcid) 20 mg DAILY PO Last administered on 09/27/16 08:02; Admin Dose 20 MG; Start 09/04/16 at 09:00 Levothyroxine Sodium (Synthroid) 75 mcg DAILY@06 PO Last administered on 05:51; Admin Dose 75 MCG; Start 09/08/16 at 06:00 Cholecalciferol (Vitamin D) 1,000 unit DAILY PO Last administered on 09/27/16 08:02; Admin Dose 1,000 UNIT; Start 09/07/16 at 12:30 Lactobacillus Acidophilus (Florajen3 Capsule) 1 each BID PO Last administered on 09/27/16 08:04; Admin Dose 1 EACH; Start 09/09/16 at 21:00 Lorazepam (Ativan) 1 mg Q6H PRN IV Anxiety Last administered on 09/27/16 17:30 ; Admin Dose 1 MG; Start 09/10/16 at 11:30 Lactulose (Enulose) 30 gm BID PRN PO CONSTIPATION; Start 09/16/16 at 11:30 Moxifloxacin HCl (Vigamox) 1 drop TID BOTH EYES Last administered on 09/27/16 12:07; Admin Dose 1 DROP; Start 09/18/16 at 21:30 Hydralazine HCl (Apresoline) 25 mg TID PO Last administered on 09/27/16 12:05; Admin Dose 25 MG; Start 09/19/16 at 09:00 Hydralazine HCl (Apresoline) 10 mg Q4H PRN IV ELEVATED SYSTOLIC BP Last administered on 09/24/16 08:01; Admin Dose 10 MG; Start 09/19/16 at 01:00 Furosemide (Lasix) 40 mg DAILY PO ; Start 09/20/16 at 09:00; Status Future Hold Linezolid (Zyvox) 600 mg BID PO Last administered on 09/27/16 08:03; Admin Dose 600 MG; Start 09/22/16 at 21:00 Nifedipine (Procardia Xl) 60 mg BID PO Last administered on 09/27/16 07:59; Admin Dose 60 MG; Start 09/24/16 at 09:00 Levofloxacin (Levaquin) 250 mg DAILY@06 PO Last administered on 09/27/16 05:50 ; Admin Dose 250 MG; Start 09/27/16 at 06:00 Doxazosin Mesylate (Cardura) 8 mg HS PO ; Start 09/27/16 at 21:00 Neomycin/ Polymyxin/ Hydrocortisone (Cortisporin Otic Susp) 4 drop QID LEFT EAR Last administered on 09/27/16 17:31; Admin Dose 4 DROP; Start 09/27/16 at 09:00 ; Stop 10/04/16 at 08:59 Terbinafine HCl (Lamisil) 250 mg BID PO Last administered on 09/27/16 09:55; Admin Dose 250 MG; Start 09/27/16 at 09:00; Stop 10/04/16 at 08:59 DORENE GARCIA NP September 27, 2016 20:08
[2016-09-27] MEDS: DOXAZOSIN 4 MG TAB PO SCH (20:32)
[2016-09-28] MEDS: morphine 4 MG/ML VIAL IV PRN ×5 (01:19→23:17)
[2016-09-28] MEDS: ACCU-CHEK XX SCH (01:52)
[2016-09-28] MEDS: ONDANSETRON 4 MG INJ IV PRN ×4 (05:39→23:18)
[2016-09-28] MEDS: LEVOTHYROXINE 75 MCG TAB PO SCH (05:39)
[2016-09-28] MEDS: LEVOFLOXACIN 250 MG TAB PO SCH (05:39)
[2016-09-28] MEDS: LORAZEPAM 2 MG INJ IV PRN (06:33)
[2016-09-28] MEDS: INSULIN ASPART [NOVOLOG] 3 ML PEN SC SCH ×4 (08:00→20:14)
[2016-09-28 08:05] VITALS: BP 173/93; RESP 17
[2016-09-28] MEDS: SEVELAMER 800 MG TAB PO SCH ×3 (08:18→17:43)
[2016-09-28] MEDS: MOXIFLOXACIN 0.5% 3 ML OPH BOTH EYES SCH ×3 (08:20→20:27)
[2016-09-28] MEDS: NEOMYC/POLYMYX/HC 10 ML OTIC SUSP LEFT EAR SCH ×4 (08:21→20:25)
[2016-09-28] MEDS: L ACIDOPHIL/B LACTIS/B LONGUM CAPSULE PO SCH ×2 (08:21→20:16)
[2016-09-28] MEDS: FINASTERIDE 5 MG TAB PO SCH (08:22)
[2016-09-28] MEDS: CHOLECALCIFEROL 1,000 UNIT TAB PO SCH (08:22)
[2016-09-28] MEDS: FAMOTIDINE 20 MG TAB PO SCH (08:22)
[2016-09-28] MEDS: NIFEdipine (XL) 60 MG TAB PO SCH ×2 (08:22→20:16)
[2016-09-28] MEDS: ISOSORBIDE DINITRATE 20 MG TAB PO SCH ×3 (08:22→20:16)
[2016-09-28] MEDS: TERBINAFINE 250 MG TAB PO SCH ×2 (08:22→21:16)
[2016-09-28] MEDS: ZYVOX 600 MG TAB PO SCH ×2 (08:22→20:16)
[2016-09-28] MEDS: HEPARIN 5,000 UNIT/0.5 ML VIAL SC SCH ×2 (08:24→20:22)
--- NOTE | 2016-09-28 11:24 | PN ---
DATE: 09/28/2016 SUBJECTIVE: The patient is stable. No events overnight. No fevers, chills, nausea, vomiting. OBJECTIVE: VITAL SIGNS: Blood pressure is 145/83, respirations 17, pulse 73, temperature 98.6. HEENT: Head is normocephalic. NECK: Supple. HEART: Regular rate. LUNGS: Show diminished breath sounds at base. ABDOMEN: Soft, nontender to palpation. No rebound or guarding. EXTREMITIES: Negative for clubbing, cyanosis, no edema. DERMATOLOGIC: No rashes. MUSCULOSKELETAL: No joint effusions. NEUROLOGIC: No change in exam. MEDICATIONS: Have been reviewed. LABORATORY DATA: Has been reviewed. No new labs. ASSESSMENT AND PLAN: 1. Nonoliguric acute kidney injury on top of chronic kidney disease, stage IV, with a baseline crea tinine of 3.0 mg/dL. Etiology of acute kidney injury is secondary to acute tubular necrosis. The p atient is status post hemodialysis. At this point, renal function appears to have stabilized. We w ill continue current treatment plan, supportive care, renally dose all meds, avoid nephrotoxins. 2. Hyponatremia, improved. 3. Volume overload, improving. Continue and give intermittent diuretic therapy as needed. 4. Hypertension. Blood pressures are elevated. Continue current pressure regimen, adjust as neede d. 5. Anemia. Continue to monitor hemoglobin and hematocrit levels. 6. Diabetes. Continue Accu-Cheks and insulin sliding scale. 7. Benign prostatic hypertrophy. Continue current medical management. 8. Mineral bone disorder. Continue to monitor calcium and and phosphorus levels. 9. History of hepatitis C. Dictated By: NAE SINHA/ERICKA Conf#: [id number] DID#: [id number]
--- NOTE | 2016-09-28 12:14 | PN ---
Date/Time of Note Date/Time of Note DATE: 09/28/16 TIME: 12:10 Assessment/Plan VTE Prophylaxis VTE Prophylaxis Intervention: heparin Lines/Catheters IV C[facility] Type [facility] PICC Line Central line still needed: Yes Urinary Cath still in place: No Assessment/Plan Problems: (1) Onychomycosis due to dermatophyte Status: Acute Comment: He is on pulse therapy at this time and doing well (2) Hypothyroidism (acquired) Status: Chronic Comment: On stable replacement (3) Hepatitis C, chronic Status: Chronic Comment: This is noted. At some point he may be appropriate candidate for treatment however at this time he is not an appropriate candidate to initiate [facility] Qualifiers: Hepatic coma status: without hepatic coma Qualified Code: B18.2 - Chronic hepatitis C without hepatic coma (4) HTN (hypertension) Status: Chronic Comment: Blood pressure is not well controlled. We will continue to adjust medication to get him under better control. Qualifiers: Hypertension type: essential hypertension Qualified Code: I10 - Essential hypertension (5) Alcoholism Status: Chronic Comment: He is clean and sober while he is in the hospital under our care (6) Diabetes mellitus type 1, controlled Status: Chronic Comment: We are labeling this type 1 diabetes because we believe that he does not have adequate pancreatic beta cell reserve. He is on adequate treatment with good blood sugar control. 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 without macular edema (7) MRSA (methicillin resistant staph aureus) culture positive Status: Chronic Comment: As per infectious disease we need guidance on exactly how long to treat him for which will help guide our discharge planning (8) VRE infection (vancomycin resistant enterococcus), with multi-drug resistance Status: Acute Comment: As above need guidance from infectious disease about duration of treatment (9) BPH (benign prostatic hypertrophy) with urinary obstruction Status: Chronic Comment: Is on full dose alpha blockade with 5 alpha reductase inhibitor (10) Chronic alcoholic pancreatitis Status: Chronic Comment: Noted and not active Subjective 24 Hr Interval Summary Free Text/Dictation Hospital day 27 Constitutional: no complaints (Denies fever chills or sweats) Eyes: no complaints ENT: no complaints (He reports his ear is improved with the drops) Respiratory: no complaints Cardiovascular: no complaints Gastrointestinal: no complaints Exam/Review of Systems Vital Signs Vitals Vital Signs Date Time Temp Pulse Resp B/P Pulse Ox O2 Delivery O2 Flow Rate FiO2 09/28/16 08:05 96.8 73 17 173/93 97 09/27/16 20:00 Nasal Cannula 2.0 Intake and Output 09/27/16 09/27/16 09/28/16 15:00 23:00 07:00 Intake Total 750 ml 120 ml Output Total 1150 ml 600 ml Balance -400 ml -480 ml Exam Hospital day 27 Constitutional: alert, oriented Neck: non-tender, supple Respiratory: clear to auscultation, normal air movement Cardiovascular: nl pulses, regular rate and rhythm Gastrointestinal: nl liver, spleen, non-tender, soft Results Result Diagram: 09/26/16 0430 Results 24 hrs Laboratory Tests Test 09/27/16 17:29 09/27/16 20:22 09/28/16 07:53 Bedside Glucose 132 118 81 Medications Medications Current Medications Finasteride (Proscar) 5 mg DAILY PO Last administered on 09/28/16 08:22; Admin Dose 5 MG; Start 09/02/16 at 09:00 Oxycodone/ Acetaminophen (Percocet (5/ 325)) maximum total acetaminop... Q4 PRN PO PAIN LEVEL 1-5 Last administered on 09/14/16 17:57; Admin Dose 1 TAB; Start 09/01/16 at 23:00 Simethicone (Mylicon) 80 mg Q6H PRN PO DISTENSION/GAS/BLOATING Last administered on 09/17/16 21:03; Admin Dose 80 MG; Start 09/01/16 at 23:00 Heparin Sodium (Porcine) (Heparin (5000 Units/0.5 ml)) 5,000 unit Q12 SC Last administered on 09/28/16 08:24; Admin Dose 5,000 UNIT; Start 09/02/16 at 09:00; Status Future hold Morphine Sulfate (morphine) 3 mg Q4H PRN IV PAIN LEVEL 6-10 Last administered on 09/28/16 10:06; Admin Dose 3 MG; Start 09/01/16 at 23:30 Ondansetron HCl (Zofran Inj) 4 mg Q6H PRN IV NAUSEA AND/OR VOMITING Last administered on 09/28/16 05:39; Admin Dose 4 MG; Start 09/01/16 at 23:30 Diagnostic Test (Pha) (Accu-Chek) 1 ea 02 XX Last administered on 09/25/16 02: 07; Admin Dose 1 EA; Start 09/02/16 at 02:00 Isosorbide Dinitrate (Isordil) 20 mg TID PO Last administered on 09/28/16 08:22 ; Admin Dose 20 MG; Start 09/01/16 at 23:00 Miscellaneous Information 1 ea NOTE XX ; Start 09/01/16 at 23:30 Glucose (Glutose) 15 gm Q15M PRN PO DECREASED GLUCOSE; Start 09/01/16 at 23:30 Glucose (Glutose) 22.5 gm Q15M PRN PO DECREASED GLUCOSE; Start 09/01/16 at 23: 30 Dextrose (D50w Syringe) 25 ml Q15M PRN IV DECREASED GLUCOSE; Start 09/01/16 at 23:30 Dextrose (D50w Syringe) 50 ml Q15M PRN IV DECREASED GLUCOSE; Start 09/01/16 at 23:30 Glucagon (Glucagen) 1 mg Q15M PRN IM DECREASED GLUCOSE; Start 09/01/16 at 23:30 Glucose (Glutose) 15 gm Q15M PRN BUCCAL DECREASED GLUCOSE; Start 09/01/16 at 23 :30 Famotidine (Pepcid) 20 mg DAILY PO Last administered on 09/28/16 08:22; Admin Dose 20 MG; Start 09/04/16 at 09:00 Levothyroxine Sodium (Synthroid) 75 mcg DAILY@06 PO Last administered on 05:39; Admin Dose 75 MCG; Start 09/08/16 at 06:00 Cholecalciferol (Vitamin D) 1,000 unit DAILY PO Last administered on 09/28/16 08:22; Admin Dose 1,000 UNIT; Start 09/07/16 at 12:30 Lactobacillus Acidophilus (Florajen3 Capsule) 1 each BID PO Last administered on 09/28/16 08:21; Admin Dose 1 EACH; Start 09/09/16 at 21:00 Lorazepam (Ativan) 1 mg Q6H PRN IV Anxiety Last administered on 09/28/16 06:33 ; Admin Dose 1 MG; Start 09/10/16 at 11:30 Lactulose (Enulose) 30 gm BID PRN PO CONSTIPATION; Start 09/16/16 at 11:30 Moxifloxacin HCl (Vigamox) 1 drop TID BOTH EYES Last administered on 09/28/16 08:20; Admin Dose 1 DROP; Start 09/18/16 at 21:30 Hydralazine HCl (Apresoline) 25 mg TID PO Last administered on 09/28/16 08:21; Admin Dose 25 MG; Start 09/19/16 at 09:00 Hydralazine HCl (Apresoline) 10 mg Q4H PRN IV ELEVATED SYSTOLIC BP Last administered on 09/24/16 08:01; Admin Dose 10 MG; Start 09/19/16 at 01:00 Furosemide (Lasix) 40 mg DAILY PO ; Start 09/20/16 at 09:00; Status Future Hold Linezolid (Zyvox) 600 mg BID PO Last administered on 09/28/16 08:22; Admin Dose 600 MG; Start 09/22/16 at 21:00 Nifedipine (Procardia Xl) 60 mg BID PO Last administered on 09/28/16 08:22; Admin Dose 60 MG; Start 09/24/16 at 09:00 Levofloxacin (Levaquin) 250 mg DAILY@06 PO Last administered on 09/28/16 05:39 ; Admin Dose 250 MG; Start 09/27/16 at 06:00 Doxazosin Mesylate (Cardura) 8 mg HS PO Last administered on 09/27/16 20:32; Admin Dose 8 MG; Start 09/27/16 at 21:00 Neomycin/ Polymyxin/ Hydrocortisone (Cortisporin Otic Susp) 4 drop QID LEFT EAR Last administered on 09/28/16 08:21; Admin Dose 4 DROP; Start 09/27/16 at 09:00 ; Stop 10/04/16 at 08:59 Terbinafine HCl (Lamisil) 250 mg BID PO Last administered on 09/28/16 08:22; Admin Dose 250 MG; Start 09/27/16 at 09:00; Stop 10/04/16 at 08:59 BELEN ROSALES MD September 28, 2016 12:14
--- NOTE | 2016-09-28 16:08 | CONS ---
Date/Time of Note Date/Time of Note DATE: 09/28/16 TIME: 16:08 Assessment/Plan Assessment/Plan Chief Complaint/Hosp Course SUBJECTIVE: No events overnight. No fevers. No vomiting or diarrhea. ANTIMICROBIALS: 1. Oral Zyvox. 2. Vigamox eyedrops. 3. Levaquin qod PHYSICAL EXAMINATION: GENERAL: Chronically ill-appearing, middle-aged man who is in no distress. HEENT: Head atraumatic, normocephalic. Right eye still with some redness but no drainage. Buccal mucosa dry. NECK: Supple. CHEST: Rise symmetrical. Breath sounds clear, diminished to bases. HEART: S1, S2. ABDOMEN: Soft, bowel tones present. EXTREMITIES: Without cyanosis. ASSESSMENT: 1. Right conjunctivitis. Drainage of the eye grew VRE and corynebacterium group JK. 3. Status post urinary tract infection. 4. History of spinal abscess diskitis, status post surgical intervention, completed long-term antibiotics. 5. Acute on chronic kidney disease status post hemodialysis. 6. L otomastoiditis PLAN: Remains unchanged, continue on current antimicrobials and probiotics. DW staff Problems: Consultation Date/Type/Reason Admit Date/Time Sep 01, 2016 at 17:29 Type of Consultation: id Exam/Review of Systems Vital Signs Vitals Vital Signs Date Time Temp Pulse Resp B/P Pulse Ox O2 Delivery O2 Flow Rate FiO2 09/28/16 08:05 96.8 73 17 173/93 97 09/28/16 08:00 Nasal Cannula 2.0 Intake and Output 09/27/16 09/27/16 09/28/16 15:00 23:00 07:00 Intake Total 750 ml 120 ml Output Total 1150 ml 600 ml Balance -400 ml -480 ml Results Result Diagram: 09/26/16 0430 Results 24 hrs Laboratory Tests Test 09/27/16 17:29 09/27/16 20:22 09/28/16 07:53 09/28/16 12:29 Bedside Glucose 132 118 81 178 Medications Medications Current Medications Finasteride (Proscar) 5 mg DAILY PO Last administered on 09/28/16t 08:22; Admin Dose 5 MG; Start 09/02/16 at 09:00 Oxycodone/ Acetaminophen (Percocet (5/ 325)) maximum total acetaminop... Q4 PRN PO PAIN LEVEL 1-5 Last administered on 09/14/16 17:57; Admin Dose 1 TAB; Start 09/01/16 at 23:00 Simethicone (Mylicon) 80 mg Q6H PRN PO DISTENSION/GAS/BLOATING Last administered on 09/17/16 21:03; Admin Dose 80 MG; Start 09/01/16 at 23:00 Heparin Sodium (Porcine) (Heparin (5000 Units/0.5 ml)) 5,000 unit Q12 SC Last administered on 09/28/16 08:24; Admin Dose 5,000 UNIT; Start 09/02/16 at 09:00; Status Future hold Morphine Sulfate (morphine) 3 mg Q4H PRN IV PAIN LEVEL 6-10 Last administered on 09/28/16 10:06; Admin Dose 3 MG; Start 09/01/16 at 23:30 Ondansetron HCl (Zofran Inj) 4 mg Q6H PRN IV NAUSEA AND/OR VOMITING Last administered on 09/28/16 12:33; Admin Dose 4 MG; Start 09/01/16 at 23:30 Diagnostic Test (Pha) (Accu-Chek) 1 ea 02 XX Last administered on 09/25/16 02: 07; Admin Dose 1 EA; Start 09/02/16 at 02:00 Isosorbide Dinitrate (Isordil) 20 mg TID PO Last administered on 09/28/16 12:46 ; Admin Dose 20 MG; Start 09/01/16 at 23:00 Miscellaneous Information 1 ea NOTE XX ; Start 09/01/16 at 23:30 Glucose (Glutose) 15 gm Q15M PRN PO DECREASED GLUCOSE; Start 09/01/16 at 23:30 Glucose (Glutose) 22.5 gm Q15M PRN PO DECREASED GLUCOSE; Start 09/01/16 at 23: 30 Dextrose (D50w Syringe) 25 ml Q15M PRN IV DECREASED GLUCOSE; Start 09/01/16 at 23:30 Dextrose (D50w Syringe) 50 ml Q15M PRN IV DECREASED GLUCOSE; Start 09/01/16 at 23:30 Glucagon (Glucagen) 1 mg Q15M PRN IM DECREASED GLUCOSE; Start 09/01/16 at 23:30 Glucose (Glutose) 15 gm Q15M PRN BUCCAL DECREASED GLUCOSE; Start 09/01/16 at 23 :30 Famotidine (Pepcid) 20 mg DAILY PO Last administered on 09/28/16 08:22; Admin Dose 20 MG; Start 09/04/16 at 09:00 Levothyroxine Sodium (Synthroid) 75 mcg DAILY@06 PO Last administered on 05:39; Admin Dose 75 MCG; Start 09/08/16 at 06:00 Cholecalciferol (Vitamin D) 1,000 unit DAILY PO Last administered on 09/28/16 08:22; Admin Dose 1,000 UNIT; Start 09/07/16 at 12:30 Lactobacillus Acidophilus (Florajen3 Capsule) 1 each BID PO Last administered on 09/28/16 08:21; Admin Dose 1 EACH; Start 09/09/16 at 21:00 Lorazepam (Ativan) 1 mg Q6H PRN IV Anxiety Last administered on 09/28/16 06:33 ; Admin Dose 1 MG; Start 09/10/16 at 11:30 Lactulose (Enulose) 30 gm BID PRN PO CONSTIPATION; Start 09/16/16 at 11:30 Moxifloxacin HCl (Vigamox) 1 drop TID BOTH EYES Last administered on 09/28/16 12:44; Admin Dose 1 DROP; Start 09/18/16 at 21:30 Hydralazine HCl (Apresoline) 10 mg Q4H PRN IV ELEVATED SYSTOLIC BP Last administered on 09/24/16 08:01; Admin Dose 10 MG; Start 09/19/16 at 01:00 Furosemide (Lasix) 40 mg DAILY PO ; Start 09/20/16 at 09:00; Status Future Hold Linezolid (Zyvox) 600 mg BID PO Last administered on 09/28/16 08:22; Admin Dose 600 MG; Start 09/22/16 at 21:00 Nifedipine (Procardia Xl) 60 mg BID PO Last administered on 09/28/16 08:22; Admin Dose 60 MG; Start 09/24/16 at 09:00 Levofloxacin (Levaquin) 250 mg DAILY@06 PO Last administered on 09/28/16 05:39 ; Admin Dose 250 MG; Start 09/27/16 at 06:00 Doxazosin Mesylate (Cardura) 8 mg HS PO Last administered on 09/27/16 20:32; Admin Dose 8 MG; Start 09/27/16 at 21:00 Neomycin/ Polymyxin/ Hydrocortisone (Cortisporin Otic Susp) 4 drop QID LEFT EAR Last administered on 09/28/16 12:43; Admin Dose 4 DROP; Start 09/27/16 at 09:00 ; Stop 10/04/16 at 08:59 Terbinafine HCl (Lamisil) 250 mg BID PO Last administered on 09/28/16 08:22; Admin Dose 250 MG; Start 09/27/16 at 09:00; Stop 10/04/16 at 08:59 Hydralazine HCl (Apresoline) 50 mg TID PO Last administered on 09/28/16 12:43; Admin Dose 50 MG; Start 09/28/16 at 13:00 DORENE GARCIA NP September 28, 2016 16:08
[2016-09-28 20:07] VITALS: BP 181/98; RESP 16
[2016-09-28] MEDS: DOXAZOSIN 4 MG TAB PO SCH (20:16)
[2016-09-29] VITALS (11 sets, daily range): BP systolic 124–195; BP diastolic 72–104; PULSE 63–97; RESP 16–18
[2016-09-29] MEDS: hydrALAzine 20 MG INJ IV PRN ×2 (00:50→05:03)
[2016-09-29] MEDS: ACCU-CHEK XX SCH (02:00)
[2016-09-29] MEDS ORDERED: NITROGLYCERIN (SL) 0.4 MG TAB SL STA (02:01)
[2016-09-29 03:02] LABS: ADD SCAN DIFF NO
[2016-09-29 03:32] LABS: ABNORMAL IP MESSAGE 1; BASOPHILS % 0.6 % (0.0-2.0); EOSINOPHILS # 0.2 10^3/ul (0.0-0.5); EOSINOPHILS % 4.3 % (0.0-7.0); HEMATOCRIT 27.1 % (42.0-52.0); HEMOGLOBIN 9.5 g/dl (14.0-18.0); LYMPHOCYTES # 0.7 10^3/ul (0.8-2.9); LYMPHOCYTES % 20.4 % (15.0-51.0); MEAN CORPUSCULAR HEMOGLOBIN 31.3 pg (29.0-33.0); MEAN CORPUSCULAR HGB CONC 35.1 g/dl (32.0-37.0); MEAN CORPUSCULAR VOLUME 89.1 fl (82.0-101.0); MONOCYTE # 0.1 10^3/ul (0.3-0.9); MONOCYTES % 2.6 % (0.0-11.0); NEUTROPHIL # 2.5 10^3/ul (1.6-7.5); NEUTROPHILS % 71.8 % (39.0-77.0); RED BLOOD COUNT 3.04 10^6/ul (4.70-6.10); RED CELL DISTRIBUTION WIDTH 14.9 % (11.5-14.5); WHITE BLOOD COUNT 3.5 10^3/ul (4.8-10.8)
[2016-09-29] MEDS: LORAZEPAM 2 MG INJ IV PRN ×3 (03:33→23:50)
[2016-09-29] MEDS ORDERED: ONDANSETRON 4 MG INJ IV STA (03:36)
[2016-09-29] MEDS ORDERED: morphine 2 MG INJ IV ONE (04:00)
[2016-09-29] MEDS ORDERED: ONDANSETRON INJ 8 MG in SOD CHLORIDE 0.9% 50 ML IV PRN (04:00)
[2016-09-29 05:01] LABS: CALCIUM 8.4 mg/dl (8.4-10.2); CREATININE 2.5 mg/dl (0.61-1.24); MAGNESIUM 2.4 mg/dl (1.7-2.5); PHOSPHORUS 3.9 mg/dl (2.5-4.9); POTASSIUM 5.1 mmol/L (3.5-5.1)
[2016-09-29 05:02] LABS: MEAN PLATELET VOLUME 9.5 fl (7.4-10.4); PLATELET COUNT 74 10^3/UL (140-415)
[2016-09-29 05:03] LABS: PLATELET ESTIMATE PLT APPEAR DECREASED
[2016-09-29] MEDS: LEVOTHYROXINE 75 MCG TAB PO SCH (05:04)
[2016-09-29] MEDS: LEVOFLOXACIN 250 MG TAB PO SCH (05:05)
[2016-09-29] MEDS: morphine 4 MG/ML VIAL IV PRN (05:49)
[2016-09-29] MEDS: INSULIN ASPART [NOVOLOG] 3 ML PEN SC SCH ×4 (08:00→20:15)
[2016-09-29] MEDS: SEVELAMER 800 MG TAB PO SCH ×3 (08:29→17:38)
[2016-09-29] MEDS: CHOLECALCIFEROL 1,000 UNIT TAB PO SCH (08:29)
[2016-09-29] MEDS: ZYVOX 600 MG TAB PO SCH ×2 (08:29→20:04)
[2016-09-29] MEDS: ISOSORBIDE DINITRATE 20 MG TAB PO SCH ×3 (08:29→20:04)
[2016-09-29] MEDS: FINASTERIDE 5 MG TAB PO SCH (08:30)
[2016-09-29] MEDS: FAMOTIDINE 20 MG TAB PO SCH (08:30)
[2016-09-29] MEDS: NEOMYC/POLYMYX/HC 10 ML OTIC SUSP LEFT EAR SCH ×4 (08:31→20:12)
[2016-09-29] MEDS: L ACIDOPHIL/B LACTIS/B LONGUM CAPSULE PO SCH ×2 (08:32→22:00)
[2016-09-29] MEDS: MOXIFLOXACIN 0.5% 3 ML OPH BOTH EYES SCH ×3 (08:32→20:12)
[2016-09-29] MEDS: TERBINAFINE 250 MG TAB PO SCH ×2 (08:45→20:03)
[2016-09-29] MEDS: ONDANSETRON 4 MG INJ IV PRN ×3 (08:45→23:48)
--- NOTE | 2016-09-29 09:46 | PN ---
Date/Time of Note Date/Time of Note DATE: 09/29/16 TIME: 09:40 Assessment/Plan VTE Prophylaxis VTE Prophylaxis Intervention: heparin Lines/Catheters IV Catheter Type (from Nrs): PICC Line Central line still needed: Yes (hd access) Urinary Cath still in place: No Assessment/Plan Chief Complaint/Hosp Course Subjective: 56-year-old gentleman admitted with atypical chest pain from [place]. Ruled out for ACS. Anasarca started dialysis. Presently finished dialysis on diuretics intermittently. Finished antibiotics for subacute OM. Presently being treated for conjunctivitis & otomastoiditis. O: vss PE No pallor. Rt access C/D/I Reg, no m/r/g Ctab Bs + nt. nd. No r/r/g Ext - no edema. A/P 1. Atypical chest pain. Stable. Pleurisy? Continue risk factor modification. 2. Ileus; bowel care/ HD as needed for anasarca. Avoid narcotics if possible. 3. ARF. HD on hold; + Hep C. Avoid PICCs. 4. DM/metabolic syndrome. Cont bb/risk factor modification 5. Chr OM. Sp laminectomy. Seen by NS. finished antibiotics. 5. Ho psoas muscle abscess. 7. Chr COPD 8. Chr hypothyroidism 9. BPH 10. Ftt, DC to SNF? ADLs vs home with home health. 11. Lt ear otitis externa? Treating otomastoiditis. 12. Ac cystitis. finished therapy 13. Chr pancytopenia/bone marrow suppresion/ Hep C 14. Ho MRSA wound infection. Finish treatment 15. Conjunctivitis right with VRE and CRISTINO virus. Continue therapy 16. Onychomycosis 17. Past alcoholism 18. Thrombocytopenia, no active bleed; stable on heparin/ antibiotics. Problems: Exam/Review of Systems Vital Signs Vitals Vital Signs Date Time Temp Pulse Resp B/P Pulse Ox O2 Delivery O2 Flow Rate FiO2 09/29/16 07:05 98.5 71 16 135/77 97 09/28/16 20:00 Nasal Cannula 1.0 Intake and Output 09/28/16 09/28/16 09/29/16 15:00 23:00 07:00 Intake Total 1220 ml 174 ml Output Total 350 ml 750 ml Balance 870 ml -576 ml Results Result Diagram: 09/29/16 0244 09/29/16 0244 Results 24 hrs Laboratory Tests Test 09/28/16 12:29 09/28/16 17:04 09/28/16 20:12 09/29/16 02:44 Bedside Glucose 178 137 102 White Blood Count 3.5 #L Red Blood Count 3.04 L Hemoglobin 9.5 L Hematocrit 27.1 L Mean Corpuscular Volume 89.1 Mean Corpuscular Hemoglobin 31.3 Mean Corpuscular Hemoglobin Concent 35.1 Red Cell Distribution Width 14.9 H Platelet Count 74 #L Mean Platelet Volume 9.5 Neutrophils % 71.8 Lymphocytes % 20.4 Monocytes % 2.6 Eosinophils % 4.3 Basophils % 0.6 Nucleated Red Blood Cells % 0.0 Neutrophils # 2.5 Lymphocytes # 0.7 L Monocytes # 0.1 L Eosinophils # 0.2 Basophils # 0.0 Nucleated Red Blood Cells # 0.0 Platelet Estimate PLT APPEAR DECREASED Sodium Level 134 L Potassium Level 5.1 Chloride Level 103 Carbon Dioxide Level 28 Anion Gap 8 Blood Urea Nitrogen 59 H Creatinine 2.50 H Glucose Level 92 Calcium Level 8.4 Phosphorus Level 3.9 Magnesium Level 2.4 Troponin I < 0.012 Test 09/29/16 03:16 09/29/16 07:59 09/29/16 08:20 Bedside Glucose 101 90 Troponin I < 0.012 Medications Medications Current Medications Finasteride (Proscar) 5 mg DAILY PO Last administered on 09/29/16 08:30; Admin Dose 5 MG; Start 09/02/16 at 09:00 Oxycodone/ Acetaminophen (Percocet (5/ 325)) maximum total acetaminop... Q4 PRN PO PAIN LEVEL 1-5 Last administered on 09/14/16 17:57; Admin Dose 1 TAB; Start 09/01/16 at 23:00 Simethicone (Mylicon) 80 mg Q6H PRN PO DISTENSION/GAS/BLOATING Last administered on 09/17/16 21:03; Admin Dose 80 MG; Start 09/01/16 at 23:00 Heparin Sodium (Porcine) (Heparin (5000 Units/0.5 ml)) 5,000 unit Q12 SC Last administered on 09/28/16 20:22; Admin Dose 5,000 UNIT; Start 09/02/16 at 09:00; Status Future hold Morphine Sulfate (morphine) 3 mg Q4H PRN IV PAIN LEVEL 6-10 Last administered on 09/29/16 05:49; Admin Dose 3 MG; Start 09/01/16 at 23:30 Ondansetron HCl (Zofran Inj) 4 mg Q6H PRN IV NAUSEA AND/OR VOMITING Last administered on 09/29/16 08:45; Admin Dose 4 MG; Start 09/01/16 at 23:30 Diagnostic Test (Pha) (Accu-Chek) 1 ea 02 XX Last administered on 09/25/16 02: 07; Admin Dose 1 EA; Start 09/02/16 at 02:00 Isosorbide Dinitrate (Isordil) 20 mg TID PO Last administered on 09/29/16 08:29 ; Admin Dose 20 MG; Start 09/01/16 at 23:00 Miscellaneous Information 1 ea NOTE XX ; Start 09/01/16 at 23:30 Glucose (Glutose) 15 gm Q15M PRN PO DECREASED GLUCOSE; Start 09/01/16 at 23:30 Glucose (Glutose) 22.5 gm Q15M PRN PO DECREASED GLUCOSE; Start 09/01/16 at 23: 30 Dextrose (D50w Syringe) 25 ml Q15M PRN IV DECREASED GLUCOSE; Start 09/01/16 at 23:30 Dextrose (D50w Syringe) 50 ml Q15M PRN IV DECREASED GLUCOSE; Start 09/01/16 at 23:30 Glucagon (Glucagen) 1 mg Q15M PRN IM DECREASED GLUCOSE; Start 09/01/16 at 23:30 Glucose (Glutose) 15 gm Q15M PRN BUCCAL DECREASED GLUCOSE; Start 09/01/16 at 23 :30 Famotidine (Pepcid) 20 mg DAILY PO Last administered on 09/29/16 08:30; Admin Dose 20 MG; Start 09/04/16 at 09:00 Levothyroxine Sodium (Synthroid) 75 mcg DAILY@06 PO Last administered on 05:04; Admin Dose 75 MCG; Start 09/08/16 at 06:00 Cholecalciferol (Vitamin D) 1,000 unit DAILY PO Last administered on 09/29/16 08:29; Admin Dose 1,000 UNIT; Start 09/07/16 at 12:30 Lactobacillus Acidophilus (Florajen3 Capsule) 1 each BID PO Last administered on 09/29/16 08:32; Admin Dose 1 EACH; Start 09/09/16 at 21:00 Lorazepam (Ativan) 1 mg Q6H PRN IV Anxiety Last administered on 09/29/16 08:45 ; Admin Dose 1 MG; Start 09/10/16 at 11:30 Lactulose (Enulose) 30 gm BID PRN PO CONSTIPATION; Start 09/16/16 at 11:30 Moxifloxacin HCl (Vigamox) 1 drop TID BOTH EYES Last administered on 09/29/16 08:32; Admin Dose 1 DROP; Start 09/18/16 at 21:30 Hydralazine HCl (Apresoline) 10 mg Q4H PRN IV ELEVATED SYSTOLIC BP Last administered on 09/29/16 05:03; Admin Dose 10 MG; Start 09/19/16 at 01:00 Furosemide (Lasix) 40 mg DAILY PO ; Start 09/20/16 at 09:00; Status Future Hold Linezolid (Zyvox) 600 mg BID PO Last administered on 09/29/16 08:29; Admin Dose 600 MG; Start 09/22/16 at 21:00 Nifedipine (Procardia Xl) 60 mg BID PO Last administered on 09/28/16 20:16; Admin Dose 60 MG; Start 09/24/16 at 09:00 Levofloxacin (Levaquin) 250 mg DAILY@06 PO Last administered on 09/29/16 05:05 ; Admin Dose 250 MG; Start 09/27/16 at 06:00 Doxazosin Mesylate (Cardura) 8 mg HS PO Last administered on 09/28/16 20:16; Admin Dose 8 MG; Start 09/27/16 at 21:00 Neomycin/ Polymyxin/ Hydrocortisone (Cortisporin Otic Susp) 4 drop QID LEFT EAR Last administered on 09/29/16 08:31; Admin Dose 4 DROP; Start 09/27/16 at 09:00 ; Stop 10/04/16 at 08:59 Terbinafine HCl (Lamisil) 250 mg BID PO Last administered on 09/29/16 08:45; Admin Dose 250 MG; Start 09/27/16 at 09:00; Stop 10/04/16 at 08:59 Hydralazine HCl (Apresoline) 50 mg TID PO Last administered on 09/29/16t 08:30; Admin Dose 50 MG; Start 09/28/16 at 13:00 JAN HEMPHILL MD September 29, 2016 09:46
[2016-09-29] MEDS ORDERED: ASPIRIN (EC) 325 MG TAB PO SCH (10:00)
[2016-09-29] MEDS: HEPARIN 5,000 UNIT/0.5 ML VIAL SC SCH ×2 (10:13→20:07)
[2016-09-29] MEDS: morphine 2 MG INJ IV PRN ×3 (10:16→22:01)
--- NOTE | 2016-09-29 11:13 | PN ---
DATE: 09/29/2016 SUBJECTIVE: The patient is stable, no acute events overnight. No fever, chills, nausea, or vomiting . OBJECTIVE: VITAL SIGNS: Blood pressure 130/77, respirations 16, pulse 71, temperature 98.5. HEENT: Head is normocephalic. NECK: Supple. HEART: Regular rate. LUNGS: Show diminished breath sounds at the base. ABDOMEN: Soft, nontender to palpation without rebound or guarding. EXTREMITIES: Negative for clubbing, cyanosis, trace edema. DERMATOLOGIC: No rashes. MUSCULOSKELETAL: No joint effusions. NEUROLOGIC: No change in exam. MEDICATIONS: The patient's medications have been reviewed. LABORATORY DATA: Shows a sodium of 134, potassium 5.1, BUN 39, creatinine 2.50. White count 3.5, h emoglobin 9.5, hematocrit 27.0, platelet count 74. ASSESSMENT AND PLAN: 1. Nonoliguric acute kidney injury on top of chronic kidney disease stage IV with a previous baseli ne creatinine of 3.0 mg/dL. Etiology of acute kidney injury is secondary to acute tubular necrosis. The patient is status post hemodialysis. Renal function has stabilized. Continue supportive care , renally dose all medications, avoid nephrotoxins. 2. Volume overload, improving, will reintroduce the patient on Lasix 40 mg p.o. daily, monitor ivette l function. 3. Hypertension. Continue current blood pressure regimen. Continue diuretic therapy, adjust medic ations as needed. 4. Hyponatremia. Continue to limit free water intake and monitor. 5. Anemia. Continue to monitor hemoglobin and hematocrit levels. 6. Diabetes. Continue Accu-Cheks and insulin sliding scale. 7. Benign prostatic hypertrophy. Continue medical management. 8. Mineral bone disorder. Continue to monitor calcium and phosphorus levels. 9. History of hepatitis C. Dictated By: NAE SINHA/ERICKA Conf#: [id number] DID#: [id number]
--- NOTE | 2016-09-29 12:04 | RADRPT ---
PROCEDURE: Chest Radiograph. CLINICAL INDICATION: Chest pain TECHNIQUE: Single frontal chest radiograph. COMPARISON: Chest radiograph 09/17/2016 FINDINGS: The heart is magnified and may be enlarged.. There is moderate bibasilar atelectasis and/or infiltr ate. There is suggestion of 1.1 cm nodule overlying the right mid to upper lateral lung zone which may be artifactual as a was not clearly seen on prior imaging. No definite pleural effusions are see n. The bones are intact. IMPRESSION: 1. Low lung volumes with basilar atelectasis/infiltrate. 2. Apparent 1.1 cm nodule in the right mid to upper lung zone laterally which may be artifactual gi anita it is not seen on prior imaging. Consider further evaluation with CT chest as clinically indica nelson. RPTAT: KK .Akin Smith MD, MD Date Time Electronically viewed and signed by .Akin Smith MD, on 09/29/2016 12:04 .B/
[2016-09-29] MEDS: FUROSEMIDE 40 MG TAB PO SCH (12:20)
[2016-09-29] MEDS: NIFEdipine (XL) 60 MG TAB PO SCH ×2 (12:22→20:04)
--- NOTE | 2016-09-29 13:21 | CONS ---
Date/Time of Note Date/Time of Note DATE: 09/29/16 TIME: 13:20 Assessment/Plan Assessment/Plan Chief Complaint/Hosp Course SUBJECTIVE: No events overnight. No fevers. No vomiting or diarrhea. ANTIMICROBIALS: 1. Oral Zyvox. 2. Vigamox eyedrops. 3. Levaquin qod PHYSICAL EXAMINATION: GENERAL: Chronically ill-appearing, middle-aged man who is in no distress. HEENT: Head atraumatic, normocephalic. Right eye still with some redness but no drainage. Buccal mucosa dry. NECK: Supple. CHEST: Rise symmetrical. Breath sounds clear, diminished to bases. HEART: S1, S2. ABDOMEN: Soft, bowel tones present. EXTREMITIES: Without cyanosis. ASSESSMENT: 1. Right conjunctivitis. Drainage of the eye grew VRE and corynebacterium group JK. 3. Status post urinary tract infection. 4. History of spinal abscess diskitis, status post surgical intervention, completed long-term antibiotics. 5. Acute on chronic kidney disease status post hemodialysis. 6. L otomastoiditis PLAN: Feels better, eye drainage decreased, continue on current antimicrobials and probiotics. DW staff Problems: Consultation Date/Type/Reason Admit Date/Time Sep 01, 2016 at 17:29 Type of Consultation: ID Exam/Review of Systems Vital Signs Vitals Vital Signs Date Time Temp Pulse Resp B/P Pulse Ox O2 Delivery O2 Flow Rate FiO2 09/29/16 07:05 98.5 71 16 135/77 97 09/28/16 20:00 Nasal Cannula 1.0 Intake and Output 09/28/16 09/28/16 09/29/16 15:00 23:00 07:00 Intake Total 1220 ml 174 ml Output Total 350 ml 750 ml Balance 870 ml -576 ml Results Result Diagram: 09/29/16 0244 09/29/16 0244 Results 24 hrs Laboratory Tests Test 09/28/16 17:04 09/28/16 20:12 09/29/16 02:44 09/29/16 03:16 Bedside Glucose 137 102 101 White Blood Count 3.5 #L Red Blood Count 3.04 L Hemoglobin 9.5 L Hematocrit 27.1 L Mean Corpuscular Volume 89.1 Mean Corpuscular Hemoglobin 31.3 Mean Corpuscular Hemoglobin Concent 35.1 Red Cell Distribution Width 14.9 H Platelet Count 74 #L Mean Platelet Volume 9.5 Neutrophils % 71.8 Lymphocytes % 20.4 Monocytes % 2.6 Eosinophils % 4.3 Basophils % 0.6 Nucleated Red Blood Cells % 0.0 Neutrophils # 2.5 Lymphocytes # 0.7 L Monocytes # 0.1 L Eosinophils # 0.2 Basophils # 0.0 Nucleated Red Blood Cells # 0.0 Platelet Estimate PLT APPEAR DECREASED Sodium Level 134 L Potassium Level 5.1 Chloride Level 103 Carbon Dioxide Level 28 Anion Gap 8 Blood Urea Nitrogen 59 H Creatinine 2.50 H Glucose Level 92 Calcium Level 8.4 Phosphorus Level 3.9 Magnesium Level 2.4 Troponin I < 0.012 Test 09/29/16 07:59 09/29/16 08:20 09/29/16 12:17 Bedside Glucose 90 110 Troponin I < 0.012 Medications Medications Current Medications Finasteride (Proscar) 5 mg DAILY PO Last administered on 09/29/16 08:30; Admin Dose 5 MG; Start 09/02/16 at 09:00 Oxycodone/ Acetaminophen (Percocet (5/ 325)) maximum total acetaminop... Q4 PRN PO PAIN LEVEL 1-5 Last administered on 09/14/16 17:57; Admin Dose 1 TAB; Start 09/01/16 at 23:00 Simethicone (Mylicon) 80 mg Q6H PRN PO DISTENSION/GAS/BLOATING Last administered on 09/17/16 21:03; Admin Dose 80 MG; Start 09/01/16 at 23:00 Heparin Sodium (Porcine) (Heparin (5000 Units/0.5 ml)) 5,000 unit Q12 SC Last administered on 09/29/16 10:13; Admin Dose 5,000 UNIT; Start 09/02/16 at 09:00; Status Future hold Ondansetron HCl (Zofran Inj) 4 mg Q6H PRN IV NAUSEA AND/OR VOMITING Last administered on 09/29/16 08:45; Admin Dose 4 MG; Start 09/01/16 at 23:30 Diagnostic Test (Pha) (Accu-Chek) 1 ea 02 XX Last administered on 09/25/16 02: 07; Admin Dose 1 EA; Start 09/02/16 at 02:00 Isosorbide Dinitrate (Isordil) 20 mg TID PO Last administered on 09/29/16 08:29 ; Admin Dose 20 MG; Start 09/01/16 at 23:00 Miscellaneous Information 1 ea NOTE XX ; Start 09/01/16 at 23:30 Glucose (Glutose) 15 gm Q15M PRN PO DECREASED GLUCOSE; Start 09/01/16 at 23:30 Glucose (Glutose) 22.5 gm Q15M PRN PO DECREASED GLUCOSE; Start 09/01/16 at 23: 30 Dextrose (D50w Syringe) 25 ml Q15M PRN IV DECREASED GLUCOSE; Start 09/01/16 at 23:30 Dextrose (D50w Syringe) 50 ml Q15M PRN IV DECREASED GLUCOSE; Start 09/01/16 at 23:30 Glucagon (Glucagen) 1 mg Q15M PRN IM DECREASED GLUCOSE; Start 09/01/16 at 23:30 Glucose (Glutose) 15 gm Q15M PRN BUCCAL DECREASED GLUCOSE; Start 09/01/16 at 23 :30 Levothyroxine Sodium (Synthroid) 75 mcg DAILY@06 PO Last administered on 05:04; Admin Dose 75 MCG; Start 09/08/16 at 06:00 Cholecalciferol (Vitamin D) 1,000 unit DAILY PO Last administered on 09/29/16 08:29; Admin Dose 1,000 UNIT; Start 09/07/16 at 12:30 Lactobacillus Acidophilus (Florajen3 Capsule) 1 each BID PO Last administered on 09/29/16 08:32; Admin Dose 1 EACH; Start 09/09/16 at 21:00 Lactulose (Enulose) 30 gm BID PRN PO CONSTIPATION; Start 09/16/16 at 11:30 Moxifloxacin HCl (Vigamox) 1 drop TID BOTH EYES Last administered on 09/29/16 12:23; Admin Dose 1 DROP; Start 09/18/16 at 21:30 Hydralazine HCl (Apresoline) 10 mg Q4H PRN IV ELEVATED SYSTOLIC BP Last administered on 09/29/16 05:03; Admin Dose 10 MG; Start 09/19/16 at 01:00 Furosemide (Lasix) 40 mg DAILY PO Last administered on 09/29/16 12:20; Admin Dose 40 MG; Start 09/20/16 at 09:00; Status Future hold Linezolid (Zyvox) 600 mg BID PO Last administered on 09/29/16 08:29; Admin Dose 600 MG; Start 09/22/16 at 21:00 Nifedipine (Procardia Xl) 60 mg BID PO Last administered on 09/29/16 12:22; Admin Dose 60 MG; Start 09/24/16 at 09:00 Levofloxacin (Levaquin) 250 mg DAILY@06 PO Last administered on 09/29/16 05:05 ; Admin Dose 250 MG; Start 09/27/16 at 06:00 Doxazosin Mesylate (Cardura) 8 mg HS PO Last administered on 09/28/16 20:16; Admin Dose 8 MG; Start 09/27/16 at 21:00 Neomycin/ Polymyxin/ Hydrocortisone (Cortisporin Otic Susp) 4 drop QID LEFT EAR Last administered on 09/29/16 12:23; Admin Dose 4 DROP; Start 09/27/16 at 09:00 ; Stop 10/04/16 at 08:59 Terbinafine HCl (Lamisil) 250 mg BID PO Last administered on 09/29/16 08:45; Admin Dose 250 MG; Start 09/27/16 at 09:00; Stop 10/04/16 at 08:59 Hydralazine HCl (Apresoline) 50 mg TID PO Last administered on 09/29/16 12:23; Admin Dose 50 MG; Start 09/28/16 at 13:00 Lorazepam (Ativan) 1 mg Q12H PRN IV Anxiety; Start 09/29/16 at 09:42 Aspirin (Ecotrin) 81 mg DAILY PO Last administered on 09/29/16 10:00; Admin Dose 81 MG; Start 09/29/16 at 10:00 Morphine Sulfate (morphine) 2 mg Q4H PRN IV PAIN LEVEL 6-10 Last administered on 09/29/16 10:16; Admin Dose 2 MG; Start 09/29/16 at 11:30 Pantoprazole (Protonix Tab) 40 mg BID@06,18 PO ; Start 09/29/16 at 18:00 DORENE GARCIA NP September 29, 2016 13:21
[2016-09-29] MEDS: PANTOPRAZOLE (EC) 40 MG TAB PO SCH (17:38)
[2016-09-29] MEDS: DOXAZOSIN 4 MG TAB PO SCH (20:05)
[2016-09-30] MEDS: ACCU-CHEK XX SCH ×2 (01:31→21:06)
[2016-09-30] MEDS: morphine 2 MG INJ IV PRN ×5 (03:47→21:17)
[2016-09-30] MEDS: PANTOPRAZOLE (EC) 40 MG TAB PO SCH ×2 (05:28→17:09)
[2016-09-30] MEDS: LEVOTHYROXINE 75 MCG TAB PO SCH (05:28)
[2016-09-30] MEDS: LEVOFLOXACIN 250 MG TAB PO SCH (05:28)
[2016-09-30] MEDS: ONDANSETRON 4 MG INJ IV PRN ×3 (05:42→17:19)
[2016-09-30 06:12] LABS: ADD SCAN DIFF NO
[2016-09-30 06:38] LABS: ABNORMAL IP MESSAGE 1; BASOPHILS % 0.6 % (0.0-2.0); EOSINOPHILS # 0.2 10^3/ul (0.0-0.5); EOSINOPHILS % 6.5 % (0.0-7.0); HEMATOCRIT 28.9 % (42.0-52.0); HEMOGLOBIN 9.8 g/dl (14.0-18.0); LYMPHOCYTES % 29.2 % (15.0-51.0); MEAN CORPUSCULAR HEMOGLOBIN 30.9 pg (29.0-33.0); MEAN CORPUSCULAR HGB CONC 33.9 g/dl (32.0-37.0); MEAN CORPUSCULAR VOLUME 91.2 fl (82.0-101.0); MEAN PLATELET VOLUME 9.9 fl (7.4-10.4); MONOCYTE # 0.1 10^3/ul (0.3-0.9); MONOCYTES % 2.5 % (0.0-11.0); NEUTROPHILS % 61.2 % (39.0-77.0); PLATELET COUNT 69 10^3/UL (140-415); RED BLOOD COUNT 3.17 10^6/ul (4.70-6.10); RED CELL DISTRIBUTION WIDTH 14.7 % (11.5-14.5); WHITE BLOOD COUNT 3.3 10^3/ul (4.8-10.8)
[2016-09-30 07:34] VITALS: BP 166/94; RESP 18
[2016-09-30 07:42] LABS: ALBUMIN 3.1 g/dl (3.3-4.9); ALBUMIN/GLOBULIN RATIO 0.88; BILIRUBIN,INDIRECT 0.2 mg/dl (0-1.1); BILIRUBIN,TOTAL 0.2 mg/dl (0.2-1.3); CALCIUM 8.5 mg/dl (8.4-10.2); CREATININE 2.61 mg/dl (0.61-1.24); MAGNESIUM 2.5 mg/dl (1.7-2.5); POTASSIUM 5.3 mmol/L (3.5-5.1); TOTAL PROTEIN 6.6 g/dl (6.1-8.1)
[2016-09-30] MEDS: INSULIN ASPART [NOVOLOG] 3 ML PEN SC SCH ×4 (08:00→21:00)
[2016-09-30] MEDS: SEVELAMER 800 MG TAB PO SCH ×3 (08:39→17:07)
[2016-09-30] MEDS: TERBINAFINE 250 MG TAB PO SCH ×2 (08:39→21:06)
[2016-09-30] MEDS: FINASTERIDE 5 MG TAB PO SCH (08:39)
[2016-09-30] MEDS: CHOLECALCIFEROL 1,000 UNIT TAB PO SCH (08:41)
[2016-09-30] MEDS: ISOSORBIDE DINITRATE 20 MG TAB PO SCH ×3 (08:41→21:06)
[2016-09-30] MEDS: ZYVOX 600 MG TAB PO SCH ×2 (08:41→21:06)
[2016-09-30] MEDS: HEPARIN 5,000 UNIT/0.5 ML VIAL SC SCH (08:42)
[2016-09-30] MEDS: ASPIRIN 81 MG TAB PO SCH (08:43)
[2016-09-30] MEDS: MOXIFLOXACIN 0.5% 3 ML OPH BOTH EYES SCH ×3 (08:43→21:04)
[2016-09-30] MEDS: NIFEdipine (XL) 60 MG TAB PO SCH ×2 (08:46→21:06)
[2016-09-30] MEDS: L ACIDOPHIL/B LACTIS/B LONGUM CAPSULE PO SCH ×2 (09:12→21:05)
[2016-09-30] MEDS: NEOMYC/POLYMYX/HC 10 ML OTIC SUSP LEFT EAR SCH ×4 (09:12→21:04)
--- NOTE | 2016-09-30 11:26 | PN ---
DATE: 09/30/2016 SUBJECTIVE: The patient is complaining of nausea. No other events noted. No hemoptysis, hematemesi s or hematochezia. OBJECTIVE: VITAL SIGNS: Blood pressure is 166/94, respirations 18, pulse 66, temperature 97.6. HEENT: Head is normocephalic. NECK: Supple. HEART: Regular rate. LUNGS: Show diminished breath sounds at the base. ABDOMEN: Soft, nontender to palpation. No rebound or guarding. EXTREMITIES: Negative for clubbing, cyanosis. Trace edema. DERMATOLOGIC: No rashes. MUSCULOSKELETAL: No joint effusions. NEUROLOGIC: No change in exam. LABORATORY DATA: Shows sodium 134, potassium 5.3, BUN 62, creatinine 2.61. White count is 3.3, hem oglobin 9.8, hematocrit 28.9, platelet count is 69. ASSESSMENT AND PLAN: 1. Nonoliguric acute kidney injury on top of chronic kidney disease stage IV with previous baseline creatinine of 3.0 mg/dL. Etiology of acute kidney injury is secondary to acute tubular necrosis. Patient is status post hemodialysis. The patient's renal function is stabilized. We will continue current treatment plan, supportive care, renally dose all medicines. 2. Volume overload. The patient is developing lower extremity edema. We will resume Lasix 40 mg da peri. We will give 1 dose of IV Lasix 40 mg x1 and monitor. 3. Mild hyperkalemia secondary to chronic kidney disease. We will place the patient on a low potass ium diet. We will give a dose of Lasix and monitor. 3. Hypertension. Continue current blood pressure regimen. 4. Anemia. Continue to monitor hemoglobin and hematocrit levels. 5. Diabetes. Continue Accu-Cheks and sliding scale. 6. Benign prostatic hypertrophy. Continue medical management. 7. Mineral bone disorder. Continue to monitor calcium and phosphate levels. 8. History of hepatitis C. Dictated By: NAE SINHA/ERICKA Conf#: [id number] DID#: [id number]
[2016-09-30] MEDS: FUROSEMIDE 40 MG INJ IV SCH (11:46)
[2016-09-30 12:00] VITALS: BP 128/77; PULSE 64
[2016-09-30] MEDS ORDERED: OXYCODONE/ACETAMINOPHEN (5/325) TAB PO PRN (13:30)
--- NOTE | 2016-09-30 14:05 | CONS ---
Date/Time of Note Date/Time of Note DATE: 09/30/16 TIME: 14:04 Assessment/Plan Assessment/Plan Chief Complaint/Hosp Course SUBJECTIVE: No events overnight. No fevers. No vomiting or diarrhea. ANTIMICROBIALS: 1. Oral Zyvox. 2. Vigamox eyedrops. 3. Levaquin qod PHYSICAL EXAMINATION: GENERAL: Chronically ill-appearing, middle-aged man who is in no distress. HEENT: Head atraumatic, normocephalic. Right eye still with some redness but no drainage. Buccal mucosa dry. NECK: Supple. CHEST: Rise symmetrical. Breath sounds clear, diminished to bases. HEART: S1, S2. ABDOMEN: Soft, bowel tones present. EXTREMITIES: Without cyanosis. ASSESSMENT: 1. Right conjunctivitis. Drainage of the eye grew VRE and corynebacterium group JK. 3. Status post urinary tract infection. 4. History of spinal abscess diskitis, status post surgical intervention, completed long-term antibiotics. 5. Acute on chronic kidney disease status post hemodialysis. 6. L otomastoiditis PLAN: Improving, continue on current antimicrobials and probiotics. DW staff Problems: Consultation Date/Type/Reason Admit Date/Time Sep 01, 2016 at 17:29 Type of Consultation: ID Exam/Review of Systems Vital Signs Vitals Vital Signs Date Time Temp Pulse Resp B/P Pulse Ox O2 Delivery O2 Flow Rate FiO2 09/30/16 08:00 2.0 09/30/16 07:34 97.7 66 18 166/94 96 09/28/16 20:00 Nasal Cannula Intake and Output 09/29/16 09/29/16 09/30/16 15:00 23:00 07:00 Intake Total 760 ml 180 ml Output Total 300 ml 550 ml Balance 460 ml -370 ml Results Result Diagram: 09/30/16 0533 09/30/16 0533 Results 24 hrs Laboratory Tests Test 09/29/16 16:40 09/29/16 20:01 09/30/16 05:33 09/30/16 08:10 Bedside Glucose 114 109 89 White Blood Count 3.3 L Red Blood Count 3.17 L Hemoglobin 9.8 L Hematocrit 28.9 L Mean Corpuscular Volume 91.2 Mean Corpuscular Hemoglobin 30.9 Mean Corpuscular Hemoglobin Concent 33.9 Red Cell Distribution Width 14.7 H Platelet Count 69 L Mean Platelet Volume 9.9 Neutrophils % 61.2 Lymphocytes % 29.2 Monocytes % 2.5 Eosinophils % 6.5 Basophils % 0.6 Nucleated Red Blood Cells % 0.0 Neutrophils # 2.0 Lymphocytes # 1.0 Monocytes # 0.1 L Eosinophils # 0.2 Basophils # 0.0 Nucleated Red Blood Cells # 0.0 Sodium Level 134 L Potassium Level 5.3 H Chloride Level 102 Carbon Dioxide Level 27 Anion Gap 10 Blood Urea Nitrogen 62 H Creatinine 2.61 H Glucose Level 79 Calcium Level 8.5 Magnesium Level 2.5 Total Bilirubin 0.2 Direct Bilirubin 0.00 Indirect Bilirubin 0.2 Aspartate Amino Transf (AST/SGOT) 16 Alanine Aminotransferase (ALT/SGPT) 25 Alkaline Phosphatase 56 Total Protein 6.6 Albumin 3.1 L Globulin 3.50 H Albumin/Globulin Ratio 0.88 Test 09/30/16 11:42 Bedside Glucose 104 Medications Medications Current Medications Finasteride (Proscar) 5 mg DAILY PO Last administered on 09/30/16 08:39; Admin Dose 5 MG; Start 09/02/16 at 09:00 Simethicone (Mylicon) 80 mg Q6H PRN PO DISTENSION/GAS/BLOATING Last administered on 09/17/16 21:03; Admin Dose 80 MG; Start 09/01/16 at 23:00 Heparin Sodium (Porcine) (Heparin (5000 Units/0.5 ml)) 5,000 unit Q12 SC Last administered on 09/29/16 20:07; Admin Dose 5,000 UNIT; Start 09/02/16 at 09:00; Status Future hold Ondansetron HCl (Zofran Inj) 4 mg Q6H PRN IV NAUSEA AND/OR VOMITING Last administered on 09/30/16 11:43; Admin Dose 4 MG; Start 09/01/16 at 23:30 Diagnostic Test (Pha) (Accu-Chek) 1 ea 02 XX Last administered on 09/25/16 02: 07; Admin Dose 1 EA; Start 09/02/16 at 02:00 Isosorbide Dinitrate (Isordil) 20 mg TID PO Last administered on 09/30/16 12:57 ; Admin Dose 20 MG; Start 09/01/16 at 23:00 Miscellaneous Information 1 ea NOTE XX ; Start 09/01/16 at 23:30 Glucose (Glutose) 15 gm Q15M PRN PO DECREASED GLUCOSE; Start 09/01/16 at 23:30 Glucose (Glutose) 22.5 gm Q15M PRN PO DECREASED GLUCOSE; Start 09/01/16 at 23: 30 Dextrose (D50w Syringe) 25 ml Q15M PRN IV DECREASED GLUCOSE; Start 09/01/16 at 23:30 Dextrose (D50w Syringe) 50 ml Q15M PRN IV DECREASED GLUCOSE; Start 09/01/16 at 23:30 Glucagon (Glucagen) 1 mg Q15M PRN IM DECREASED GLUCOSE; Start 09/01/16 at 23:30 Glucose (Glutose) 15 gm Q15M PRN BUCCAL DECREASED GLUCOSE; Start 09/01/16 at 23 :30 Levothyroxine Sodium (Synthroid) 75 mcg DAILY@06 PO Last administered on 05:28; Admin Dose 75 MCG; Start 09/08/16 at 06:00 Cholecalciferol (Vitamin D) 1,000 unit DAILY PO Last administered on 09/30/16 08:41; Admin Dose 1,000 UNIT; Start 09/07/16 at 12:30 Lactobacillus Acidophilus (Florajen3 Capsule) 1 each BID PO Last administered on 09/30/16 09:12; Admin Dose 1 EACH; Start 09/09/16 at 21:00 Lactulose (Enulose) 30 gm BID PRN PO CONSTIPATION; Start 09/16/16 at 11:30 Moxifloxacin HCl (Vigamox) 1 drop TID BOTH EYES Last administered on 09/30/16 12:58; Admin Dose 1 DROP; Start 09/18/16 at 21:30 Hydralazine HCl (Apresoline) 10 mg Q4H PRN IV ELEVATED SYSTOLIC BP Last administered on 09/29/16 05:03; Admin Dose 10 MG; Start 09/19/16 at 01:00 Furosemide (Lasix) 40 mg DAILY PO Last administered on 09/29/16 12:20; Admin Dose 40 MG; Start 09/20/16 at 09:00; Status Future hold Linezolid (Zyvox) 600 mg BID PO Last administered on 09/30/16 08:41; Admin Dose 600 MG; Start 09/22/16 at 21:00 Nifedipine (Procardia Xl) 60 mg BID PO Last administered on 09/30/16 08:46; Admin Dose 60 MG; Start 09/24/16 at 09:00 Levofloxacin (Levaquin) 250 mg DAILY@06 PO Last administered on 09/30/16 05:28 ; Admin Dose 250 MG; Start 09/27/16 at 06:00 Doxazosin Mesylate (Cardura) 8 mg HS PO Last administered on 09/29/16 20:05; Admin Dose 8 MG; Start 09/27/16 at 21:00 Neomycin/ Polymyxin/ Hydrocortisone (Cortisporin Otic Susp) 4 drop QID LEFT EAR Last administered on 09/30/16 12:58; Admin Dose 4 DROP; Start 09/27/16 at 09:00 ; Stop 10/04/16 at 08:59 Terbinafine HCl (Lamisil) 250 mg BID PO Last administered on 09/30/16 08:39; Admin Dose 250 MG; Start 09/27/16 at 09:00; Stop 10/04/16 at 08:59 Hydralazine HCl (Apresoline) 50 mg TID PO Last administered on 09/30/16 12:57; Admin Dose 50 MG; Start 09/28/16 at 13:00 Lorazepam (Ativan) 1 mg Q12H PRN IV Anxiety Last administered on 09/29/16 23:50 ; Admin Dose 1 MG; Start 09/29/16 at 09:42 Morphine Sulfate (morphine) 2 mg Q4H PRN IV PAIN LEVEL 6-10 Last administered on 09/30/16 12:57; Admin Dose 2 MG; Start 09/29/16 at 11:30 Pantoprazole (Protonix Tab) 40 mg BID@06,18 PO Last administered on 09/30/16 05 :28; Admin Dose 40 MG; Start 09/29/16 at 18:00 Aspirin (Aspirin) 81 mg DAILY PO ; Start 09/30/16 at 09:00 Furosemide (Lasix) 40 mg DAILY IV Last administered on 09/30/16 11:46; Admin Dose 40 MG; Start 09/30/16 at 10:30 Oxycodone/ Acetaminophen (Percocet (5/ 325)) 1 tab Q4H PRN PO PAIN LEVEL 1-5; Start 09/30/16 at 13:30 DORENE GARCIA NP September 30, 2016 14:04
--- NOTE | 2016-09-30 14:09 | RADRPT ---
Vent Rate: 67 bpm RR Interval: 0 msec MT Interval: 146 msec QRS Duration: 84 msec QT Interval: 448 msec QTC Interval: 473 msec P-R-T [place]: 145 - 174 - 117 degrees Suspect arm lead reversal, interpretation assumes no reversal NSR Low voltage QRS Lateral infarct , age undetermined Abnormal ECG Electronically Signed By: Jayme Allison [id number]
--- NOTE | 2016-09-30 15:46 | PN ---
Date/Time of Note Date/Time of Note DATE: 09/30/16 TIME: 15:41 Assessment/Plan VTE Prophylaxis VTE Prophylaxis Intervention: LMWH Lines/Catheters IV Catheter Type (from Nrs): PICC Line Central line still needed: Yes (iv access) Urinary Cath still in place: No Assessment/Plan Chief Complaint/Hosp Course Subjective: 56yr M admitted w atypical cp from [place]. Ruled out for ACS. Anasarca, started HD. Presently finished hd, on diuretics intermittently. Finished antibiotics for subacute OM. Presently being treated for conjunctivitis & otomastoiditis. 09/30: No distress. Participated with physical therapy. O: vss PE No pallor. Rt access C/D/I Reg, no m/r/g Ctab Bs + nt. nd. No r/r/g Ext - no edema. A/P 1. Atypical chest pain. Stable. Pleurisy? Cont risk factor modification. for discharge to snf soon. 2. Ileus; bowel care/ HD as needed for anasarca. Avoid narcotics if possible. 3. ARF. HD on hold; + Hep C. Avoid PICCs. 4. DM/metabolic syndrome. Cont bb/risk factor modification 5. Chr OM. Sp laminectomy. Seen by NS. finished antibiotics. 5. Ho psoas muscle abscess. 7. Chr COPD 8. Chr hypothyroidism 9. BPH 10. Ftt, DC to SNF? ADLs vs home with home health. 11. Lt ear otitis externa? Treating otomastoiditis. 12. Ac cystitis. finished therapy 13. Chr pancytopenia/bone marrow suppresion/ Hep C 14. Ho MRSA wound infection. Finish treatment 15. Conjunctivitis right w VRE and JK virus. Cont po linezolid & Vigamox 16. Onychomycosis 17. Past alcoholism 18. Thrombocytopenia, no active bleed; hold heparin. antibiotics effect? Problems: Exam/Review of Systems Vital Signs Vitals Vital Signs Date Time Temp Pulse Resp B/P Pulse Ox O2 Delivery O2 Flow Rate FiO2 09/30/16 12:00 64 128/77 09/30/16 08:00 2.0 09/30/16 07:34 97.7 18 96 09/28/16 20:00 Nasal Cannula Intake and Output 09/29/16 09/29/16 09/30/16 15:00 23:00 07:00 Intake Total 760 ml 180 ml Output Total 300 ml 550 ml Balance 460 ml -370 ml Results Result Diagram: 09/30/16 0533 09/30/16 0533 Results 24 hrs Laboratory Tests Test 09/29/16 16:40 09/29/16 20:01 09/30/16 05:33 09/30/16 08:10 Bedside Glucose 114 109 89 White Blood Count 3.3 L Red Blood Count 3.17 L Hemoglobin 9.8 L Hematocrit 28.9 L Mean Corpuscular Volume 91.2 Mean Corpuscular Hemoglobin 30.9 Mean Corpuscular Hemoglobin Concent 33.9 Red Cell Distribution Width 14.7 H Platelet Count 69 L Mean Platelet Volume 9.9 Neutrophils % 61.2 Lymphocytes % 29.2 Monocytes % 2.5 Eosinophils % 6.5 Basophils % 0.6 Nucleated Red Blood Cells % 0.0 Neutrophils # 2.0 Lymphocytes # 1.0 Monocytes # 0.1 L Eosinophils # 0.2 Basophils # 0.0 Nucleated Red Blood Cells # 0.0 Sodium Level 134 L Potassium Level 5.3 H Chloride Level 102 Carbon Dioxide Level 27 Anion Gap 10 Blood Urea Nitrogen 62 H Creatinine 2.61 H Glucose Level 79 Calcium Level 8.5 Magnesium Level 2.5 Total Bilirubin 0.2 Direct Bilirubin 0.00 Indirect Bilirubin 0.2 Aspartate Amino Transf (AST/SGOT) 16 Alanine Aminotransferase (ALT/SGPT) 25 Alkaline Phosphatase 56 Total Protein 6.6 Albumin 3.1 L Globulin 3.50 H Albumin/Globulin Ratio 0.88 Test 09/30/16 11:42 Bedside Glucose 104 Medications Medications Current Medications Finasteride (Proscar) 5 mg DAILY PO Last administered on 09/30/16 08:39; Admin Dose 5 MG; Start 09/02/16 at 09:00 Simethicone (Mylicon) 80 mg Q6H PRN PO DISTENSION/GAS/BLOATING Last administered on 09/17/16 21:03; Admin Dose 80 MG; Start 09/01/16 at 23:00 Ondansetron HCl (Zofran Inj) 4 mg Q6H PRN IV NAUSEA AND/OR VOMITING Last administered on 09/30/16 11:43; Admin Dose 4 MG; Start 09/01/16 at 23:30 Diagnostic Test (Pha) (Accu-Chek) 1 02 XX Last administered on 09/25/16 02: 07; Admin Dose 1 EA; Start 09/02/16 at 02:00 Isosorbide Dinitrate (Isordil) 20 mg TID PO Last administered on 09/30/16 12:57 ; Admin Dose 20 MG; Start 09/01/16 at 23:00 Miscellaneous Information 1 ea NOTE XX ; Start 09/01/16 at 23:30 Glucose (Glutose) 15 gm Q15M PRN PO DECREASED GLUCOSE; Start 09/01/16 at 23:30 Glucose (Glutose) 22.5 gm Q15M PRN PO DECREASED GLUCOSE; Start 09/01/16 at 23: 30 Dextrose (D50w Syringe) 25 ml Q15M PRN IV DECREASED GLUCOSE; Start 09/01/16 at 23:30 Dextrose (D50w Syringe) 50 ml Q15M PRN IV DECREASED GLUCOSE; Start 09/01/16 at 23:30 Glucagon (Glucagen) 1 mg Q15M PRN IM DECREASED GLUCOSE; Start 09/01/16 at 23:30 Glucose (Glutose) 15 gm Q15M PRN BUCCAL DECREASED GLUCOSE; Start 09/01/16 at 23 :30 Levothyroxine Sodium (Synthroid) 75 mcg DAILY@06 PO Last administered on 05:28; Admin Dose 75 MCG; Start 09/08/16 at 06:00 Cholecalciferol (Vitamin D) 1,000 unit DAILY PO Last administered on 09/30/16 08:41; Admin Dose 1,000 UNIT; Start 09/07/16 at 12:30 Lactobacillus Acidophilus (Florajen3 Capsule) 1 each BID PO Last administered on 09/30/16 09:12; Admin Dose 1 EACH; Start 09/09/16 at 21:00 Lactulose (Enulose) 30 gm BID PRN PO CONSTIPATION; Start 09/16/16 at 11:30 Moxifloxacin HCl (Vigamox) 1 drop TID BOTH EYES Last administered on 09/30/16 12:58; Admin Dose 1 DROP; Start 09/18/16 at 21:30 Hydralazine HCl (Apresoline) 10 mg Q4H PRN IV ELEVATED SYSTOLIC BP Last administered on 09/29/16 05:03; Admin Dose 10 MG; Start 09/19/16 at 01:00 Furosemide (Lasix) 40 mg DAILY PO Last administered on 09/29/16 12:20; Admin Dose 40 MG; Start 09/20/16 at 09:00; Status Future hold Linezolid (Zyvox) 600 mg BID PO Last administered on 09/30/16 08:41; Admin Dose 600 MG; Start 09/22/16 at 21:00 Nifedipine (Procardia Xl) 60 mg BID PO Last administered on 09/30/16 08:46; Admin Dose 60 MG; Start 09/24/16 at 09:00 Levofloxacin (Levaquin) 250 mg DAILY@06 PO Last administered on 09/30/16 05:28 ; Admin Dose 250 MG; Start 09/27/16 at 06:00 Doxazosin Mesylate (Cardura) 8 mg HS PO Last administered on 09/29/16 20:05; Admin Dose 8 MG; Start 09/27/16 at 21:00 Neomycin/ Polymyxin/ Hydrocortisone (Cortisporin Otic Susp) 4 drop QID LEFT EAR Last administered on 09/30/16 12:58; Admin Dose 4 DROP; Start 09/27/16 at 09:00 ; Stop 10/04/16 at 08:59 Terbinafine HCl (Lamisil) 250 mg BID PO Last administered on 09/30/16 08:39; Admin Dose 250 MG; Start 09/27/16 at 09:00; Stop 10/04/16 at 08:59 Hydralazine HCl (Apresoline) 50 mg TID PO Last administered on 09/30/16 12:57; Admin Dose 50 MG; Start 09/28/16 at 13:00 Lorazepam (Ativan) 1 mg Q12H PRN IV Anxiety Last administered on 09/29/16 23:50 ; Admin Dose 1 MG; Start 09/29/16 at 09:42 Morphine Sulfate (morphine) 2 mg Q4H PRN IV PAIN LEVEL 6-10 Last administered on 09/30/16 12:57; Admin Dose 2 MG; Start 09/29/16 at 11:30 Pantoprazole (Protonix Tab) 40 mg BID@06,18 PO Last administered on 09/30/16 05 :28; Admin Dose 40 MG; Start 09/29/16 at 18:00 Aspirin (Aspirin) 81 mg DAILY PO ; Start 09/30/16 at 09:00 Furosemide (Lasix) 40 mg DAILY IV Last administered on 09/30/16t 11:46; Admin Dose 40 MG; Start 09/30/16 at 10:30 Oxycodone/ Acetaminophen (Percocet (5/ 325)) 1 tab Q4H PRN PO PAIN LEVEL 1-5; Start 09/30/16 at 13:30 JAN HEMPHILL MD September 30, 2016 15:46
[2016-09-30 20:40] VITALS: BP 134/76; RESP 18
[2016-09-30] MEDS: DOXAZOSIN 4 MG TAB PO SCH (21:05)
[2016-10-01] MEDS: ONDANSETRON 4 MG INJ IV PRN ×3 (02:52→19:02)
[2016-10-01] MEDS: morphine 2 MG INJ IV PRN ×4 (02:53→17:44)
[2016-10-01] MEDS: LEVOFLOXACIN 250 MG TAB PO SCH (05:17)
[2016-10-01] MEDS: LEVOTHYROXINE 75 MCG TAB PO SCH (05:17)
[2016-10-01] MEDS: PANTOPRAZOLE (EC) 40 MG TAB PO SCH ×2 (05:17→17:44)
[2016-10-01 06:23] LABS: ADD SCAN DIFF NO
[2016-10-01 06:27] LABS: ABNORMAL IP MESSAGE 1; BASOPHILS % 0.6 % (0.0-2.0); EOSINOPHILS # 0.3 10^3/ul (0.0-0.5); EOSINOPHILS % 8.4 % (0.0-7.0); HEMATOCRIT 26.6 % (42.0-52.0); HEMOGLOBIN 8.8 g/dl (14.0-18.0); LYMPHOCYTES # 0.7 10^3/ul (0.8-2.9); LYMPHOCYTES % 18.9 % (15.0-51.0); MEAN CORPUSCULAR HEMOGLOBIN 30.8 pg (29.0-33.0); MEAN CORPUSCULAR HGB CONC 33.1 g/dl (32.0-37.0); MEAN PLATELET VOLUME 9.9 fl (7.4-10.4); MONOCYTE # 0.1 10^3/ul (0.3-0.9); MONOCYTES % 3.3 % (0.0-11.0); NEUTROPHIL # 2.5 10^3/ul (1.6-7.5); NEUTROPHILS % 68.5 % (39.0-77.0); RED BLOOD COUNT 2.86 10^6/ul (4.70-6.10); RED CELL DISTRIBUTION WIDTH 15.1 % (11.5-14.5); WHITE BLOOD COUNT 3.6 10^3/ul (4.8-10.8)
[2016-10-01 06:28] LABS: PLATELET COUNT 57 10^3/UL (140-415)
[2016-10-01 06:51] LABS: CALCIUM 8.5 mg/dl (8.4-10.2); CREATININE 2.65 mg/dl (0.61-1.24); POTASSIUM 5.3 mmol/L (3.5-5.1)
[2016-10-01] MEDS: INSULIN ASPART [NOVOLOG] 3 ML PEN SC SCH ×4 (07:59→20:46)
[2016-10-01 08:00] VITALS: BP 147/82; RESP 18
[2016-10-01 08:04] LABS: PLATELET ESTIMATE PLT APPEAR DECREASED
[2016-10-01] MEDS: FINASTERIDE 5 MG TAB PO SCH (08:27)
[2016-10-01] MEDS: NIFEdipine (XL) 60 MG TAB PO SCH ×2 (08:28→20:45)
[2016-10-01] MEDS: CHOLECALCIFEROL 1,000 UNIT TAB PO SCH (08:28)
[2016-10-01] MEDS: ASPIRIN 81 MG TAB PO SCH (08:28)
[2016-10-01] MEDS: ISOSORBIDE DINITRATE 20 MG TAB PO SCH ×3 (08:28→21:44)
[2016-10-01] MEDS: L ACIDOPHIL/B LACTIS/B LONGUM CAPSULE PO SCH ×2 (08:28→20:43)
[2016-10-01] MEDS: FUROSEMIDE 40 MG TAB PO SCH (08:29)
[2016-10-01] MEDS: FUROSEMIDE 40 MG INJ IV SCH (08:29)
[2016-10-01] MEDS: ZYVOX 600 MG TAB PO SCH (08:29)
[2016-10-01] MEDS: TERBINAFINE 250 MG TAB PO SCH ×2 (08:29→20:43)
[2016-10-01] MEDS: NEOMYC/POLYMYX/HC 10 ML OTIC SUSP LEFT EAR SCH ×4 (08:30→20:46)
[2016-10-01] MEDS: SEVELAMER 800 MG TAB PO SCH ×3 (08:33→17:44)
--- NOTE | 2016-10-01 10:19 | PN ---
DATE: 10/01/2016 SUBJECTIVE: The patient is stable. No events overnight. No fever, chills, nausea, vomiting. . OBJECTIVE: VITAL SIGNS: Blood pressure 147/82, respiration 18, pulse 76, temperature 98.6. HEENT: Head is normocephalic. NECK: Supple. HEART: Regular rate. LUNGS: Show diminished breath sounds at the base. ABDOMEN: Soft, nontender to palpation without rebound or guarding. EXTREMITIES: Negative for clubbing, cyanosis. Trace edema. DERMATOLOGIC: No rashes. MUSCULOSKELETAL: No joint effusions. NEUROLOGIC: No change in exam. MEDICATIONS: The patient's medications reviewed. LABORATORY DATA: Shows white count 3.6, hemoglobin 8.8, hematocrit 26.6, platelet count 57. Sodium 135, potassium 5.3, chloride 102, BUN 65, creatinine 2.65. ASSESSMENT AND PLAN: Nonoliguric acute kidney injury on top of chronic kidney disease stage IV with a baseline of creatinine 3.0 mg/dL. ASSESSMENT AND PLAN: 1. Etiology secondary to acute tubular necrosis. Patient is status post dialysis. At this point, maryellen lopez current treatment plan, supportive care, renally dose all meds. 2. Volume overload. Continue Lasix 40 mg daily. Monitor closely. 3. Mild hyperkalemia secondary to CKD. Continue low-potassium diet. 4. Hypertension. Current blood pressure regimen. 5. Anemia of chronic disease. Will give 1 dose of Epogen. Monitor H and H levels. 6. Diabetes. Continue current insulin regimen. 7. Benign prostatic hypertrophy. Continue current medical management. 8. Mineral bone disorder. Continue to monitor calcium and phosphorus levels. Continue phos binders. 9. History of hepatitis C. Dictated By: ANE SINHA/ERICKA Conf#: [id number] DID#: [id number]
[2016-10-01] MEDS ORDERED: EPOETIN 10000 UNITS/ML (NON ESRD/NON ONCOLOGY) SC ONE (10:30)
[2016-10-01] MEDS: MOXIFLOXACIN 0.5% 3 ML OPH BOTH EYES SCH ×3 (11:42→20:46)
[2016-10-01] MEDS: LORAZEPAM 2 MG INJ IV PRN ×2 (11:42→23:06)
--- NOTE | 2016-10-01 13:46 | CONS ---
Date/Time of Note Date/Time of Note DATE: 10/01/16 TIME: 13:45 Assessment/Plan Assessment/Plan Chief Complaint/Hosp Course SUBJECTIVE: No events overnight. No fevers. No vomiting or diarrhea. ANTIMICROBIALS: 1. Oral Zyvox. 2. Vigamox eyedrops. 3. Levaquin qod PHYSICAL EXAMINATION: GENERAL: Chronically ill-appearing, middle-aged man who is in no distress. HEENT: Head atraumatic, normocephalic. Right eye still with some redness but no drainage. Buccal mucosa dry. NECK: Supple. CHEST: Rise symmetrical. Breath sounds clear, diminished to bases. HEART: S1, S2. ABDOMEN: Soft, bowel tones present. EXTREMITIES: Without cyanosis. ASSESSMENT: 1. Right conjunctivitis. Drainage of the eye grew VRE and corynebacterium group JK. 3. Status post urinary tract infection. 4. History of spinal abscess diskitis, status post surgical intervention, completed long-term antibiotics. 5. Acute on chronic kidney disease status post hemodialysis. 6. L otomastoiditis 7. Thrombocytopenia, lileky 2 to Zyvox PLAN: R eye looks much better, will dc Zyvox, continue Levaquin and probiotics. DW staff Problems: Consultation Date/Type/Reason Admit Date/Time Sep 01, 2016 at 17:29 Type of Consultation: ID Exam/Review of Systems Vital Signs Vitals Vital Signs Date Time Temp Pulse Resp B/P Pulse Ox O2 Delivery O2 Flow Rate FiO2 10/01/16 10:30 2.0 10/01/16 08:00 98.6 76 18 147/82 96 09/28/16 20:00 Nasal Cannula Intake and Output 09/30/16 09/30/16 10/01/16 15:00 23:00 07:00 Intake Total 420 ml 420 ml Output Total 1450 ml 1500 ml Balance -1030 ml -1080 ml Results Result Diagram: 10/01/16 0430 10/01/16 0430 Results 24 hrs Laboratory Tests Test 09/30/16 17:05 09/30/16 21:03 10/01/16 04:30 10/01/16 07:58 Bedside Glucose 97 105 79 White Blood Count 3.6 L Red Blood Count 2.86 L Hemoglobin 8.8 L Hematocrit 26.6 L Mean Corpuscular Volume 93.0 Mean Corpuscular Hemoglobin 30.8 Mean Corpuscular Hemoglobin Concent 33.1 Red Cell Distribution Width 15.1 H Platelet Count 57 L Mean Platelet Volume 9.9 Neutrophils % 68.5 Lymphocytes % 18.9 Monocytes % 3.3 Eosinophils % 8.4 H Basophils % 0.6 Nucleated Red Blood Cells % 0.0 Neutrophils # 2.5 Lymphocytes # 0.7 L Monocytes # 0.1 L Eosinophils # 0.3 Basophils # 0.0 Nucleated Red Blood Cells # 0.0 Differential Comment AUTO w/SCAN Platelet Estimate PLT APPEAR DECREASED Sodium Level 135 Potassium Level 5.3 H Chloride Level 102 Carbon Dioxide Level 26 Anion Gap 12 Blood Urea Nitrogen 65 H Creatinine 2.65 H Glucose Level 80 Calcium Level 8.5 Test 10/01/16 11:45 Bedside Glucose 81 Medications Medications Current Medications Finasteride (Proscar) 5 mg DAILY PO Last administered on 10/01/16 08:27; Admin Dose 5 MG; Start 09/02/16 at 09:00 Simethicone (Mylicon) 80 mg Q6H PRN PO DISTENSION/GAS/BLOATING Last administered on 09/17/16 21:03; Admin Dose 80 MG; Start 09/01/16 at 23:00 Ondansetron HCl (Zofran Inj) 4 mg Q6H PRN IV NAUSEA AND/OR VOMITING Last administered on 10/01/16 08:05; Admin Dose 4 MG; Start 09/01/16 at 23:30 Diagnostic Test (Pha) (Accu-Chek) 1 ea 02 XX Last administered on 09/25/16 02: 07; Admin Dose 1 EA; Start 09/02/16 at 02:00 Isosorbide Dinitrate (Isordil) 20 mg TID PO Last administered on 10/01/16 12: 37; Admin Dose 20 MG; Start 09/01/16 at 23:00 Miscellaneous Information 1 ea NOTE XX ; Start 09/01/16 at 23:30 Glucose (Glutose) 15 gm Q15M PRN PO DECREASED GLUCOSE; Start 09/01/16 at 23:30 Glucose (Glutose) 22.5 gm Q15M PRN PO DECREASED GLUCOSE; Start 09/01/16 at 23: 30 Dextrose (D50w Syringe) 25 ml Q15M PRN IV DECREASED GLUCOSE; Start 09/01/16 at 23:30 Dextrose (D50w Syringe) 50 ml Q15M PRN IV DECREASED GLUCOSE; Start 09/01/16 at 23:30 Glucagon (Glucagen) 1 mg Q15M PRN IM DECREASED GLUCOSE; Start 09/01/16 at 23:30 Glucose (Glutose) 15 gm Q15M PRN BUCCAL DECREASED GLUCOSE; Start 09/01/16 at 23 :30 Levothyroxine Sodium (Synthroid) 75 mcg DAILY@06 PO Last administered on 05:17; Admin Dose 75 MCG; Start 09/08/16 at 06:00 Cholecalciferol (Vitamin D) 1,000 unit DAILY PO Last administered on 10/01/16 08:28; Admin Dose 1,000 UNIT; Start 09/07/16 at 12:30 Lactobacillus Acidophilus (Florajen3 Capsule) 1 each BID PO Last administered on 10/01/16 08:28; Admin Dose 1 EACH; Start 09/09/16 at 21:00 Lactulose (Enulose) 30 gm BID PRN PO CONSTIPATION; Start 09/16/16 at 11:30 Moxifloxacin HCl (Vigamox) 1 drop TID BOTH EYES Last administered on 10/01/16 12:36; Admin Dose 1 DROP; Start 09/18/16 at 21:30 Hydralazine HCl (Apresoline) 10 mg Q4H PRN IV ELEVATED SYSTOLIC BP Last administered on 09/29/16 05:03; Admin Dose 10 MG; Start 09/19/16 at 01:00 Furosemide (Lasix) 40 mg DAILY PO Last administered on 10/01/16 08:29; Admin Dose 40 MG; Start 09/20/16 at 09:00; Status Future hold Linezolid (Zyvox) 600 mg BID PO Last administered on 10/01/16 08:29; Admin Dose 600 MG; Start 09/22/16 at 21:00 Nifedipine (Procardia Xl) 60 mg BID PO Last administered on 10/01/16 08:28; Admin Dose 60 MG; Start 09/24/16 at 09:00 Levofloxacin (Levaquin) 250 mg DAILY@06 PO Last administered on 10/01/16 05:17 ; Admin Dose 250 MG; Start 09/27/16 at 06:00 Doxazosin Mesylate (Cardura) 8 mg HS PO Last administered on 09/30/16 21:05; Admin Dose 8 MG; Start 09/27/16 at 21:00 Neomycin/ Polymyxin/ Hydrocortisone (Cortisporin Otic Susp) 4 drop QID LEFT EAR Last administered on 10/01/16 12:37; Admin Dose 4 DROP; Start 09/27/16 at 09: 00; Stop 10/04/16 at 08:59 Terbinafine HCl (Lamisil) 250 mg BID PO Last administered on 10/01/16 08:29; Admin Dose 250 MG; Start 09/27/16 at 09:00; Stop 10/04/16 at 08:59 Hydralazine HCl (Apresoline) 50 mg TID PO Last administered on 10/01/16 12:37 ; Admin Dose 50 MG; Start 09/28/16 at 13:00 Lorazepam (Ativan) 1 mg Q12H PRN IV Anxiety Last administered on 10/01/16 11: 42; Admin Dose 1 MG; Start 09/29/16 at 09:42 Morphine Sulfate (morphine) 2 mg Q4H PRN IV PAIN LEVEL 6-10 Last administered on 10/01/16 12:36; Admin Dose 2 MG; Start 09/29/16 at 11:30 Pantoprazole (Protonix Tab) 40 mg BID@06,18 PO Last administered on 10/01/16 05:17; Admin Dose 40 MG; Start 09/29/16 at 18:00 Aspirin (Aspirin) 81 mg DAILY PO Last administered on 10/01/16 08:28; Admin Dose 81 MG; Start 09/30/16 at 09:00 Furosemide (Lasix) 40 mg DAILY IV Last administered on 10/01/16 08:29; Admin Dose 40 MG; Start 09/30/16 at 10:30 Oxycodone/ Acetaminophen (Percocet (5/ 325)) 1 tab Q4H PRN PO PAIN LEVEL 1-5; Start 09/30/16 at 13:30 DORENE GARCIA NP October 01, 2016 13:46
--- NOTE | 2016-10-01 14:31 | PDOCDIS ---
Discharge Instructions DIAGNOSIS Discharge Diagnosis: Ftt CONDITION Patient Condition: Stable HOME CARE INSTRUCTIONS: Special Diet: 1800 ADA ACTIVITY: Activity Restrictions: Slowly Increase Activity Do not Drive FOLLOW UP/APPOINTMENTS Appointments Appointment primary [address] Brown 1-2 weeks; (BMP prior to arrival) Appointment Dr. Rodríguez [address] Renny Agosto 1 month PT OT eval and treat. Social service for long-term placement if needed. JAN HEMPHILL MD October 01, 2016 14:31
--- NOTE | 2016-10-01 16:13 | DS ---
DATE OF ADMISSION: 09/01/2016 DATE OF DISCHARGE: 09/30/2016 DIAGNOSIS ON ADMISSION: Atypical chest pain. DIAGNOSES ON DISCHARGE: 1. Atypical chest pain. 2. Acute renal failure. 3. Left otomastoiditis. 4. Right conjunctivitis. 5. Deconditioning. 6. Thrombocytopenia. HOSPITAL COURSE: This is a 56-year-old gentleman originally admitted with atypical chest pain, rule d out for acute coronary syndrome by enzymes, EKG, symptoms. An echo done prior to admission at [facility] was okay. He has been optimized medically with aspirin and risk factor modification. Due to nausea, I would not add a statin at this time. He needs advanced care planning and reevalua nelson. Likely his anasarca was an issue for chest pain. The patient had anasarca with renal failure. The patient did require dialysis. Dialysis was done f or about 2 weeks. Presently, his creatinine is stable on its own. Dialysis catheter has been remov ed. Additionally has hepatitis C. He is on Lasix and will need to follow up with nephrology. I wo uld avoid PICC lines in nondominant hand. In terms of his ileus, possibly related to anasarca. This is stable and resolved. The patient stat es of having nausea, I am not sure if this is anxiety related. In case there is any severe gastriti s, I have placed the patient on a proton pump inhibitor maybe for 6 weeks. The nausea might be anti biotic-related. Diabetes, metabolic syndrome. Continue risk factor modification. Chronic osteomyelitis with history of laminectomy. The patient was seen by neurosurgery. His wound has been stabilized. He has finished those antibiotics for what I believe MRSA wound infection. H e has been cleared to ambulate. Actually, the patient is ambulating remarkably well and improved. History of soleus muscle abscess. Chronic COPD. Chronic hypothyroidism. Medication is now 75 mcg daily. Chronic BPH. Failure to thrive. Discharge to SNF for ADL assistance. Left otomastoiditis, stable. Acute cystitis, finished therapy. Chronic pancytopenia, bone marrow suppression due to hepatitis C. Continue surveillance. No eviden ce of acute liver failure. Acute right eye conjunctivitis with VRE and JK virus. The patient has finished linezolid and Vigamo x Onychomycosis. Past alcoholism. Thrombocytopenia. This should improve when antibiotics are finished. He is not a candidate for Gordon enox or heparin at this time. DISCHARGE PLAN: The patient will be discharged to a care home facility. DIET: 1800 ADA. ACTIVITY: With assistance. CODE STATUS: FULL. CONDITION: Stable. BARRIERS: Discharge placement. PENDING TESTS: None. FUNCTIONAL STATUS: The patient is awake, alert, aware of care plan and options. ALLERGIES: NO KNOWN DRUG ALLERGIES. REASON FOR ADMISSION: Acute renal failure and chest pain. DISCHARGE MEDICATIONS 1. Aspirin 81 daily. 2. Vitamin D 1000 units daily. 3. Insta-Glucose as needed. 4. Doxazosin 8 mg at bedtime. 5. Proscar 5 daily. 6. Lasix 40 daily. 7. Glucagon as needed. 8. Hydralazine 50 t.i.d. 9. Insulin sliding scale. 10. Isosorbide dinitrate 20 mg t.i.d. 11. Culturelle 1 capsule twice daily, maybe 1 week. 12. Lactulose 30 mL twice daily as needed. 13. Levaquin 250 daily, 1 week. 14. Synthroid 75 mcg daily. 15. Remeron 15 at bedtime daily. 16. Vigamox 1 drop both eyes 3 times daily, 2 weeks. 17. Corticosporin otic suspension 4 drops left ear 4 times daily, 2 weeks. 18. Nifedipine XL 60 b.i.d. 19. Protonix 40 twice daily, 1 month. 20. Renagel 800 mg daily. 21. Simethicone as needed. 22. Lamisil 250 b.i.d. LABORATORY AND DIAGNOSTIC DATA: Chest x-ray from 09/29/2016, no acute process. Facial CT: Right t race mastoid fluid, opacified left middle ear cavity with left otomastoiditis. Urine showed Entero bacter. Gram-stain eye culture showed VRE, coag-negative staph and Corynebacterium group JK. White cell count of 3.6, hemoglobin and hematocrit of 8 and 26, MCV 93, platelets low at 57. Linezo lid also stopped today. INR 1.4. Sodium 135, potassium 5.3, chloride 102, bicarbonate 26, BUN 65, creatinine 2.6, glucose of 80. A1c of 6.0. TSH 20.7, patient on 75 mg daily. TSH in 2 weeks. Vit lu D 25-H level of 18. Triglycerides 77, total of 88, HDL 48, LDL of 21. LFTs okay. Protein of 6, albumin of 3.1. Hepatitis panel showing hepatitis C antibody reactive, with 39,000 RNA Internati onal Units, PCR of 4.59, RPR nonreactive. Dictated By: JAN HEMPHILL MD AC/NTS Conf#: [id number] DID#: [id number] CC: NAE MENDOZA DO; PARDEEP VAZQUEZ MD;*EndCC*
[2016-10-01] MEDS: MIRTAZAPINE 15 MG TAB PO SCH (20:43)
[2016-10-01] MEDS: DOXAZOSIN 4 MG TAB PO SCH (20:44)
[2016-10-01 20:58] VITALS: BP 112/70; RESP 16
[2016-10-01 23:06] VITALS: BP 133/75; PULSE 67
[2016-10-02] MEDS: ACCU-CHEK XX SCH (02:00)
[2016-10-02 04:52] LABS: ADD SCAN DIFF NO
[2016-10-02 04:57] LABS: ABNORMAL IP MESSAGE 1; HEMATOCRIT 26.2 % (42.0-52.0); HEMOGLOBIN 8.8 g/dl (14.0-18.0); MEAN CORPUSCULAR HEMOGLOBIN 30.6 pg (29.0-33.0); MEAN CORPUSCULAR HGB CONC 33.6 g/dl (32.0-37.0); MEAN PLATELET VOLUME 9.4 fl (7.4-10.4); PLATELET COUNT 42 10^3/UL (140-415); RED BLOOD COUNT 2.88 10^6/ul (4.70-6.10); RED CELL DISTRIBUTION WIDTH 14.8 % (11.5-14.5); WHITE BLOOD COUNT 3.8 10^3/ul (4.8-10.8)
[2016-10-02] MEDS: ONDANSETRON 4 MG INJ IV PRN (05:16)
[2016-10-02] MEDS: morphine 2 MG INJ IV PRN ×4 (05:16→22:57)
[2016-10-02] MEDS: LEVOTHYROXINE 75 MCG TAB PO SCH (05:17)
[2016-10-02] MEDS: LEVOFLOXACIN 250 MG TAB PO SCH (05:17)
[2016-10-02] MEDS: PANTOPRAZOLE (EC) 40 MG TAB PO SCH ×2 (05:17→17:05)
[2016-10-02 05:25] LABS: CALCIUM 8.5 mg/dl (8.4-10.2); CREATININE 2.76 mg/dl (0.61-1.24); MAGNESIUM 2.5 mg/dl (1.7-2.5); POTASSIUM 5.1 mmol/L (3.5-5.1)
[2016-10-02 07:15] VITALS: BP 136/62; RESP 18
[2016-10-02] MEDS: INSULIN ASPART [NOVOLOG] 3 ML PEN SC SCH ×4 (08:00→21:00)
[2016-10-02] MEDS: ASPIRIN 81 MG TAB PO SCH (08:29)
[2016-10-02] MEDS: FINASTERIDE 5 MG TAB PO SCH (08:29)
[2016-10-02] MEDS: TERBINAFINE 250 MG TAB PO SCH ×2 (08:29→22:44)
[2016-10-02] MEDS: SEVELAMER 800 MG TAB PO SCH ×3 (08:29→17:04)
[2016-10-02] MEDS: ISOSORBIDE DINITRATE 20 MG TAB PO SCH ×3 (08:29→22:45)
[2016-10-02] MEDS: CHOLECALCIFEROL 1,000 UNIT TAB PO SCH (08:29)
[2016-10-02] MEDS: NIFEdipine (XL) 60 MG TAB PO SCH ×2 (08:30→22:45)
[2016-10-02] MEDS: FUROSEMIDE 40 MG TAB PO SCH (08:30)
[2016-10-02] MEDS: MOXIFLOXACIN 0.5% 3 ML OPH BOTH EYES SCH ×3 (08:30→22:48)
[2016-10-02] MEDS: NEOMYC/POLYMYX/HC 10 ML OTIC SUSP LEFT EAR SCH ×4 (08:30→22:48)
[2016-10-02] MEDS: L ACIDOPHIL/B LACTIS/B LONGUM CAPSULE PO SCH ×2 (08:31→22:45)
--- NOTE | 2016-10-02 11:16 | PN ---
DATE: 10/02/2016 SUBJECTIVE: The patient is stable, no acute events noted. The patient chills as well. OBJECTIVE: VITAL SIGNS: Blood pressure 136/62, respiration 18, pulse 76, temperature 98.6. HEENT: Head is normocephalic. NECK: Supple. HEART: Regular rate. LUNGS: Show diminished breath sounds at base. ABDOMEN: Soft, nontender to palpation without rebound or guarding. EXTREMITIES: Negative for clubbing, cyanosis, no edema. DERMATOLOGIC: No rashes. MUSCULOSKELETAL: No joint effusions. NEUROLOGIC: No change in exam. MEDICATIONS: Reviewed. LABORATORY DATA: Sodium 136, potassium 5.1, BUN 67, creatinine 2.76, phosphorus 5.0, white count 3. 8, hemoglobin 8.8, hematocrit 36.2, platelet count is 42. ASSESSMENT AND PLAN: 1. Nonoliguric acute kidney injury on top of chronic kidney disease, etiology secondary to acute tu bular necrosis. Patient is status post hemodialysis. The patient's renal functions have been stabl e. Continue current treatment plan, supportive care, renally dose all medicines. 2. Volume overload. Continue Lasix. 3. Mild hyperkalemia secondary to chronic kidney disease. The patient's potassium levels have norm alized, continue low-potassium diet. 4. Hypertension. Continue current blood pressure regimen. 5. Anemia of chronic disease. Continue to monitor H and H levels. Will give Epogen as needed. 6. Diabetes. Continue current insulin regimen. 7. Benign prostatic hypertrophy. Continue medical management. 8. Mineral bone disorder. Continue calcium and phosphorus levels. Continue phos binders. 9. History of hepatitis C. Dictated By: NAE SINHA/ERICKA Conf#: [id number] DID#: [id number]
--- NOTE | 2016-10-02 12:16 | PN ---
Date/Time of Note Date/Time of Note DATE: 10/02/16 TIME: 12:13 Assessment/Plan VTE Prophylaxis VTE Prophylaxis Intervention: LMWH Lines/Catheters IV Catheter Type (from Nrs): PICC Line Central line still needed: Yes (iv access) Urinary Cath still in place: No Assessment/Plan Chief Complaint/Hosp Course Subjective: 56yr M admitted w atypical cp from [place]. Ruled out for ACS. Anasarca, started HD. Presently finished hd, on diuretics intermittently. Finished antibiotics for subacute OM. Presently being treated for conjunctivitis & otomastoiditis. 09/30: No distress. Participated w pt. 10/01: No events; see dc summary for details. 10/02: Diarrhea. No abd pain. Appetite stable. Pt does not qualify for skilled therapy today. O: vss PE No pallor Reg, no m/r/g Ctab Bs + nt. nd. No r/r/g Ext - no edema. A/P 1. Atypical chest pain. Stable. Pleurisy? Cont risk factor modification. for discharge to snf soon. 2. Ileus; bowel care/ HD as needed for anasarca. Avoid narcotics if possible. 3. ARF. HD on hold; + Hep C. Avoid PICCs. 4. DM/metabolic syndrome. Cont bb/rfm. EF = 50%- Dd cLVH. Stress test -ve . 5. Chr OM. Sp laminectomy. Seen by NS. finished antibiotics. 5. Ho psoas muscle abscess. 7. Chr COPD 8. Chr hypothyroidism 9. BPH 10. Ftt, DC to SNF? ADL-Custodiol? vs home with home health. 11. Lt ear otitis externa? Treating otomastoiditis. 12. Ac cystitis. finished therapy 13. Chr pancytopenia/bone marrow suppresion/ Hep C 14. Ho MRSA wound infection. Finish treatment 15. Conjunctivitis right w VRE and JK virus. Finished linezolid & Vigamox 16. Onychomycosis 17. Past alcoholism 18. Thrombocytopenia, no active bleed; hold heparin. antibiotics effect? 19. Diarrhea, probably antibiotic induced however ro C diff Problems: Exam/Review of Systems Vital Signs Vitals Vital Signs Date Time Temp Pulse Resp B/P Pulse Ox O2 Delivery O2 Flow Rate FiO2 10/02/16 09:06 2.0 5/11/17 07:15 98.6 76 18 136/62 96 09/28/16 20:00 Nasal Cannula Intake and Output 10/01/16 10/01/16 10/02/16 15:00 23:00 07:00 Intake Total 420 ml 240 ml Output Total 600 ml Balance 420 ml -360 ml Results Result Diagram: 10/02/16 0440 10/02/16 0440 Results 24 hrs Laboratory Tests Test 10/01/16 17:43 10/01/16 20:42 10/02/16 04:40 10/02/16 06:51 Bedside Glucose 112 100 71 White Blood Count 3.8 L Red Blood Count 2.88 L Hemoglobin 8.8 L Hematocrit 26.2 L Mean Corpuscular Volume 91.0 Mean Corpuscular Hemoglobin 30.6 Mean Corpuscular Hemoglobin Concent 33.6 Red Cell Distribution Width 14.8 H Platelet Count 42 #L Mean Platelet Volume 9.4 Sodium Level 136 Potassium Level 5.1 Chloride Level 104 Carbon Dioxide Level 27 Anion Gap 10 Blood Urea Nitrogen 67 H Creatinine 2.76 H Glucose Level 59 #L Calcium Level 8.5 Phosphorus Level 5.0 H Magnesium Level 2.5 Test 10/02/16 08:01 10/02/16 11:43 Bedside Glucose 91 117 Medications Medications Current Medications Finasteride (Proscar) 5 mg DAILY PO Last administered on 10/02/16 08:29; Admin Dose 5 MG; Start 09/02/16 at 09:00 Simethicone (Mylicon) 80 mg Q6H PRN PO DISTENSION/GAS/BLOATING Last administered on 09/17/16 21:03; Admin Dose 80 MG; Start 09/01/16 at 23:00 Ondansetron HCl (Zofran Inj) 4 mg Q6H PRN IV NAUSEA AND/OR VOMITING Last administered on 10/02/16 05:16; Admin Dose 4 MG; Start 09/01/16 at 23:30 Diagnostic Test (Pha) (Accu-Chek) 1 ea 02 XX Last administered on 09/25/16 02: 07; Admin Dose 1 EA; Start 09/02/16 at 02:00 Isosorbide Dinitrate (Isordil) 20 mg TID PO Last administered on 10/02/16 08: 29; Admin Dose 20 MG; Start 09/01/16 at 23:00 Miscellaneous Information 1 ea NOTE XX ; Start 09/01/16 at 23:30 Glucose (Glutose) 15 gm Q15M PRN PO DECREASED GLUCOSE; Start 09/01/16 at 23:30 Glucose (Glutose) 22.5 gm Q15M PRN PO DECREASED GLUCOSE; Start 09/01/16 at 23: 30 Dextrose (D50w Syringe) 25 ml Q15M PRN IV DECREASED GLUCOSE; Start 09/01/16 at 23:30 Dextrose (D50w Syringe) 50 ml Q15M PRN IV DECREASED GLUCOSE; Start 09/01/16 at 23:30 Glucagon (Glucagen) 1 mg Q15M PRN IM DECREASED GLUCOSE; Start 09/01/16 at 23:30 Glucose (Glutose) 15 gm Q15M PRN BUCCAL DECREASED GLUCOSE; Start 09/01/16 at 23 :30 Levothyroxine Sodium (Synthroid) 75 mcg DAILY@06 PO Last administered on 05:17; Admin Dose 75 MCG; Start 09/08/16 at 06:00 Cholecalciferol (Vitamin D) 1,000 unit DAILY PO Last administered on 10/02/16 08:29; Admin Dose 1,000 UNIT; Start 09/07/16 at 12:30 Lactobacillus Acidophilus (Florajen3 Capsule) 1 each BID PO Last administered on 10/02/16 08:31; Admin Dose 1 EACH; Start 09/09/16 at 21:00 Lactulose (Enulose) 30 gm BID PRN PO CONSTIPATION; Start 09/16/16 at 11:30 Moxifloxacin HCl (Vigamox) 1 drop TID BOTH EYES Last administered on 10/02/16 08:30; Admin Dose 1 DROP; Start 09/18/16 at 21:30 Hydralazine HCl (Apresoline) 10 mg Q4H PRN IV ELEVATED SYSTOLIC BP Last administered on 09/29/16 05:03; Admin Dose 10 MG; Start 09/19/16 at 01:00 Furosemide (Lasix) 40 mg DAILY PO Last administered on 10/02/16 08:30; Admin Dose 40 MG; Start 09/20/16 at 09:00; Status Future hold Nifedipine (Procardia Xl) 60 mg BID PO Last administered on 10/02/16 08:30; Admin Dose 60 MG; Start 09/24/16 at 09:00 Levofloxacin (Levaquin) 250 mg DAILY@06 PO Last administered on 10/02/16 05:17 ; Admin Dose 250 MG; Start 09/27/16 at 06:00 Doxazosin Mesylate (Cardura) 8 mg HS PO Last administered on 10/01/16 20:44; Admin Dose 8 MG; Start 09/27/16 at 21:00 Neomycin/ Polymyxin/ Hydrocortisone (Cortisporin Otic Susp) 4 drop QID LEFT EAR Last administered on 10/02/16 08:30; Admin Dose 4 DROP; Start 09/27/16 at 09: 00; Stop 10/04/16 at 08:59 Terbinafine HCl (Lamisil) 250 mg BID PO Last administered on 10/02/16 08:29; Admin Dose 250 MG; Start 09/27/16 at 09:00; Stop 10/04/16 at 08:59 Hydralazine HCl (Apresoline) 50 mg TID PO Last administered on 10/02/16 08:31 ; Admin Dose 50 MG; Start 09/28/16 at 13:00 Lorazepam (Ativan) 1 mg Q12H PRN IV Anxiety Last administered on 10/01/16 23: 06; Admin Dose 1 MG; Start 09/29/16 at 09:42 Morphine Sulfate (morphine) 2 mg Q4H PRN IV PAIN LEVEL 6-10 Last administered on 10/02/16 05:16; Admin Dose 2 MG; Start 09/29/16 at 11:30 Pantoprazole (Protonix Tab) 40 mg BID@06,18 PO Last administered on 10/02/16 05:17; Admin Dose 40 MG; Start 09/29/16 at 18:00 Aspirin (Aspirin) 81 mg DAILY PO Last administered on 10/02/16 08:29; Admin Dose 81 MG; Start 09/30/16 at 09:00 Oxycodone/ Acetaminophen (Percocet (5/ 325)) 1 tab Q4H PRN PO PAIN LEVEL 1-5; Start 09/30/16 at 13:30 Mirtazapine (Remeron) 15 mg HS PO Last administered on 10/01/16 20:43; Admin Dose 15 MG; Start 10/01/16 at 21:00 JAN HEMPHILL MD October 02, 2016 12:16
--- NOTE | 2016-10-02 13:57 | CONS ---
Date/Time of Note Date/Time of Note DATE: 10/02/16 TIME: 13:56 Assessment/Plan Assessment/Plan Chief Complaint/Hosp Course SUBJECTIVE: No events overnight. No fevers. No vomiting or diarrhea. ANTIMICROBIALS: 2. Vigamox eyedrops. 3. Levaquin qod PHYSICAL EXAMINATION: GENERAL: Chronically ill-appearing, middle-aged man who is in no distress. HEENT: Head atraumatic, normocephalic. Right eye still with some redness but no drainage. Buccal mucosa dry. NECK: Supple. CHEST: Rise symmetrical. Breath sounds clear, diminished to bases. HEART: S1, S2. ABDOMEN: Soft, bowel tones present. EXTREMITIES: Without cyanosis. ASSESSMENT: 1. Right conjunctivitis. Drainage of the eye grew VRE and corynebacterium group JK==> improved. 3. Status post urinary tract infection. 4. History of spinal abscess diskitis, status post surgical intervention, completed long-term antibiotics. 5. Acute on chronic kidney disease status post hemodialysis. 6. L otomastoiditis 7. Thrombocytopenia, lileky 2 to Zyvox PLAN: Remains unchanged, continue Levaquin and probiotics, monitor R eye and platelets. DW staff Problems: Consultation Date/Type/Reason Admit Date/Time Sep 01, 2016 at 17:29 Type of Consultation: ID Exam/Review of Systems Vital Signs Vitals Vital Signs Date Time Temp Pulse Resp B/P Pulse Ox O2 Delivery O2 Flow Rate FiO2 10/02/16 09:06 2.0 10/02/16 07:15 98.6 76 18 136/62 96 09/28/16 20:00 Nasal Cannula Intake and Output 10/01/16 10/01/16 10/02/16 15:00 23:00 07:00 Intake Total 420 ml 240 ml Output Total 600 ml Balance 420 ml -360 ml Results Result Diagram: 10/02/16 0440 10/02/16 0440 Results 24 hrs Laboratory Tests Test 10/01/16 17:43 10/01/16 20:42 10/02/16 04:40 10/02/16 06:51 Bedside Glucose 112 100 71 White Blood Count 3.8 L Red Blood Count 2.88 L Hemoglobin 8.8 L Hematocrit 26.2 L Mean Corpuscular Volume 91.0 Mean Corpuscular Hemoglobin 30.6 Mean Corpuscular Hemoglobin Concent 33.6 Red Cell Distribution Width 14.8 H Platelet Count 42 #L Mean Platelet Volume 9.4 Sodium Level 136 Potassium Level 5.1 Chloride Level 104 Carbon Dioxide Level 27 Anion Gap 10 Blood Urea Nitrogen 67 H Creatinine 2.76 H Glucose Level 59 #L Calcium Level 8.5 Phosphorus Level 5.0 H Magnesium Level 2.5 Test 10/02/16 08:01 10/02/16 11:43 Bedside Glucose 91 117 Medications Medications Current Medications Finasteride (Proscar) 5 mg DAILY PO Last administered on 10/02/16 08:29; Admin Dose 5 MG; Start 09/02/16 at 09:00 Simethicone (Mylicon) 80 mg Q6H PRN PO DISTENSION/GAS/BLOATING Last administered on 09/17/16 21:03; Admin Dose 80 MG; Start 09/01/16 at 23:00 Ondansetron HCl (Zofran Inj) 4 mg Q6H PRN IV NAUSEA AND/OR VOMITING Last administered on 10/02/16 05:16; Admin Dose 4 MG; Start 09/01/16 at 23:30 Diagnostic Test (Pha) (Accu-Chek) 1 ea 02 XX Last administered on 09/25/16 02: 07; Admin Dose 1 EA; Start 09/02/16 at 02:00 Isosorbide Dinitrate (Isordil) 20 mg TID PO Last administered on 10/02/16 13: 08; Admin Dose 20 MG; Start 09/01/16 at 23:00 Miscellaneous Information 1 ea NOTE XX ; Start 09/01/16 at 23:30 Glucose (Glutose) 15 gm Q15M PRN PO DECREASED GLUCOSE; Start 09/01/16 at 23:30 Glucose (Glutose) 22.5 gm Q15M PRN PO DECREASED GLUCOSE; Start 09/01/16 at 23: 30 Dextrose (D50w Syringe) 25 ml Q15M PRN IV DECREASED GLUCOSE; Start 09/01/16 at 23:30 Dextrose (D50w Syringe) 50 ml Q15M PRN IV DECREASED GLUCOSE; Start 09/01/16 at 23:30 Glucagon (Glucagen) 1 mg Q15M PRN IM DECREASED GLUCOSE; Start 09/01/16 at 23:30 Glucose (Glutose) 15 gm Q15M PRN BUCCAL DECREASED GLUCOSE; Start 09/01/16 at 23 :30 Levothyroxine Sodium (Synthroid) 75 mcg DAILY@06 PO Last administered on 05:17; Admin Dose 75 MCG; Start 09/08/16 at 06:00 Cholecalciferol (Vitamin D) 1,000 unit DAILY PO Last administered on 10/02/16 08:29; Admin Dose 1,000 UNIT; Start 09/07/16 at 12:30 Lactobacillus Acidophilus (Florajen3 Capsule) 1 each BID PO Last administered on 10/02/16 08:31; Admin Dose 1 EACH; Start 09/09/16 at 21:00 Lactulose (Enulose) 30 gm BID PRN PO CONSTIPATION; Start 09/16/16 at 11:30 Moxifloxacin HCl (Vigamox) 1 drop TID BOTH EYES Last administered on 10/02/16 12:44; Admin Dose 1 DROP; Start 09/18/16 at 21:30 Hydralazine HCl (Apresoline) 10 mg Q4H PRN IV ELEVATED SYSTOLIC BP Last administered on 09/29/16 05:03; Admin Dose 10 MG; Start 09/19/16 at 01:00 Furosemide (Lasix) 40 mg DAILY PO Last administered on 10/02/16 08:30; Admin Dose 40 MG; Start 09/20/16 at 09:00; Status Future hold Nifedipine (Procardia Xl) 60 mg BID PO Last administered on 10/02/16 08:30; Admin Dose 60 MG; Start 09/24/16 at 09:00 Levofloxacin (Levaquin) 250 mg DAILY@06 PO Last administered on 10/02/16 05:17 ; Admin Dose 250 MG; Start 09/27/16 at 06:00 Doxazosin Mesylate (Cardura) 8 mg HS PO Last administered on 10/01/16 20:44; Admin Dose 8 MG; Start 09/27/16 at 21:00 Neomycin/ Polymyxin/ Hydrocortisone (Cortisporin Otic Susp) 4 drop QID LEFT EAR Last administered on 10/02/16 12:44; Admin Dose 4 DROP; Start 09/27/16 at 09: 00; Stop 10/04/16 at 08:59 Terbinafine HCl (Lamisil) 250 mg BID PO Last administered on 10/02/16 08:29; Admin Dose 250 MG; Start 09/27/16 at 09:00; Stop 10/04/16 at 08:59 Hydralazine HCl (Apresoline) 50 mg TID PO Last administered on 10/02/16 13:07 ; Admin Dose 50 MG; Start 09/28/16 at 13:00 Lorazepam (Ativan) 1 mg Q12H PRN IV Anxiety Last administered on 10/01/16 23: 06; Admin Dose 1 MG; Start 09/29/16 at 09:42 Morphine Sulfate (morphine) 2 mg Q4H PRN IV PAIN LEVEL 6-10 Last administered on 10/02/16 13:07; Admin Dose 2 MG; Start 09/29/16 at 11:30 Pantoprazole (Protonix Tab) 40 mg BID@06,18 PO Last administered on 10/02/16 05:17; Admin Dose 40 MG; Start 09/29/16 at 18:00 Aspirin (Aspirin) 81 mg DAILY PO Last administered on 10/02/16 08:29; Admin Dose 81 MG; Start 09/30/16 at 09:00; Status Future hold Oxycodone/ Acetaminophen (Percocet (5/ 325)) 1 tab Q4H PRN PO PAIN LEVEL 1-5; Start 09/30/16 at 13:30 Mirtazapine (Remeron) 15 mg HS PO Last administered on 10/01/16 20:43; Admin Dose 15 MG; Start 10/01/16 at 21:00 DORENE GARCIA NP October 02, 2016 13:57
[2016-10-02 14:06] LABS: EOSINOPHILS # 0.3 10^3/ul (0.0-0.5); LYMPHOCYTES # 0.9 10^3/ul (0.8-2.9); MONOCYTE # 0.1 10^3/ul (0.3-0.9); NEUTROPHIL # 2.4 10^3/ul (1.6-7.5); PLATELET ESTIMATE PLT APPEAR DECREASED
[2016-10-02 20:23] VITALS: BP 98/56; RESP 18
[2016-10-02] MEDS: DOXAZOSIN 4 MG TAB PO SCH (22:44)
[2016-10-02] MEDS: MIRTAZAPINE 15 MG TAB PO SCH (22:45)
[2016-10-02 22:58] VITALS: BP 161/74; PULSE 77
[2016-10-03] MEDS: ACCU-CHEK XX SCH (02:00)
[2016-10-03] MEDS: PANTOPRAZOLE (EC) 40 MG TAB PO SCH ×2 (05:19→17:21)
[2016-10-03] MEDS: LEVOTHYROXINE 75 MCG TAB PO SCH (05:19)
[2016-10-03] MEDS: LEVOFLOXACIN 250 MG TAB PO SCH (05:19)
[2016-10-03 05:52] LABS: ADD SCAN DIFF NO
[2016-10-03 05:59] LABS: ABNORMAL IP MESSAGE 1; BASOPHILS % 0.3 % (0.0-2.0); EOSINOPHILS # 0.4 10^3/ul (0.0-0.5); EOSINOPHILS % 8.8 % (0.0-7.0); HEMATOCRIT 24.8 % (42.0-52.0); HEMOGLOBIN 8.4 g/dl (14.0-18.0); LYMPHOCYTES # 1.1 10^3/ul (0.8-2.9); MEAN CORPUSCULAR HEMOGLOBIN 30.9 pg (29.0-33.0); MEAN CORPUSCULAR HGB CONC 33.9 g/dl (32.0-37.0); MEAN CORPUSCULAR VOLUME 91.2 fl (82.0-101.0); MEAN PLATELET VOLUME 10.3 fl (7.4-10.4); MONOCYTE # 0.2 10^3/ul (0.3-0.9); MONOCYTES % 5.3 % (0.0-11.0); NEUTROPHIL # 2.3 10^3/ul (1.6-7.5); NEUTROPHILS % 57.1 % (39.0-77.0); PLATELET COUNT 42 10^3/UL (140-415); RED BLOOD COUNT 2.72 10^6/ul (4.70-6.10); RED CELL DISTRIBUTION WIDTH 14.8 % (11.5-14.5)
[2016-10-03 06:35] VITALS: BP 121/68; PULSE 74; RESP 18
[2016-10-03 07:03] LABS: MAGNESIUM 2.5 mg/dl (1.7-2.5); PHOSPHORUS 4.2 mg/dl (2.5-4.9)
[2016-10-03 07:20] VITALS: BP 117/62; RESP 18
[2016-10-03] MEDS: INSULIN ASPART [NOVOLOG] 3 ML PEN SC SCH ×4 (08:00→20:48)
[2016-10-03] MEDS: MOXIFLOXACIN 0.5% 3 ML OPH BOTH EYES SCH ×3 (08:31→20:53)
[2016-10-03] MEDS: NEOMYC/POLYMYX/HC 10 ML OTIC SUSP LEFT EAR SCH ×4 (08:31→20:52)
[2016-10-03] MEDS: TERBINAFINE 250 MG TAB PO SCH ×2 (08:31→20:48)
[2016-10-03] MEDS: NIFEdipine (XL) 60 MG TAB PO SCH ×2 (08:32→20:50)
[2016-10-03] MEDS: L ACIDOPHIL/B LACTIS/B LONGUM CAPSULE PO SCH ×2 (08:32→20:49)
[2016-10-03] MEDS: CHOLECALCIFEROL 1,000 UNIT TAB PO SCH (08:32)
[2016-10-03] MEDS: ISOSORBIDE DINITRATE 20 MG TAB PO SCH ×3 (08:33→20:49)
[2016-10-03] MEDS: FUROSEMIDE 40 MG TAB PO SCH (08:33)
[2016-10-03] MEDS: SEVELAMER 800 MG TAB PO SCH ×3 (08:33→17:21)
[2016-10-03] MEDS: FINASTERIDE 5 MG TAB PO SCH (08:33)
[2016-10-03] MEDS: morphine 2 MG INJ IV PRN ×2 (08:35→12:55)
--- NOTE | 2016-10-03 10:45 | PN ---
DATE: 10/03/2016 SUBJECTIVE: The patient is stable. No acute events overnight. No fevers, chills, nausea, or vomit ing. OBJECTIVE: VITAL SIGNS: Blood pressure is 172/62, respirations 18, pulse 76, temperature 98.6. HEENT: Head is normocephalic. NECK: Supple. HEART: Regular rate. LUNGS: Show diminished breath sounds at the base. ABDOMEN: Soft, nontender to palpation. No rebound or guarding. EXTREMITIES: Negative for clubbing or cyanosis. No edema. DERMATOLOGIC: No rashes. MUSCULOSKELETAL: Have no joint effusion. NEUROLOGIC: No change in exam. MEDICATIONS: The patient's medications have been reviewed. LABORATORY DATA: Have been reviewed. No new labs. ASSESSMENT AND PLAN: 1. Nonoliguric acute kidney injury on top of chronic kidney disease. Etiology is secondary to acut e tubular necrosis. The patient is status post hemodialysis. Renal function has stabilized. [place] nue the current treatment plan, supportive care, renally dose all meds. 2. Volume overload. Continue diuretic therapy and monitor renal function closely. 3. Mild hyperkalemia secondary to CKD. Improved. Continue to monitor and continue a low-potassium diet. 4. Hypertension. Continue the current blood pressure regimen. 5. Anemia of chronic disease. Continue to monitor hemoglobin and hematocrit levels. Continue Epog en. 6. Diabetes. Continue Accu-Cheks and insulin sliding scale. 7. Benign prostatic hypertrophy. Continue medical management. 8. Mineral bone disorder. Continue to monitor calcium and phos levels. Continue phos binders. 9. History of hepatitis C. Dictated By: NAE SINHA/ERICKA Conf#: [id number] DID#: [id number]
[2016-10-03 12:15] VITALS: BP 131/69; PULSE 69
--- NOTE | 2016-10-03 12:46 | PN ---
Date/Time of Note Date/Time of Note DATE: 10/03/16 TIME: 12:42 Assessment/Plan VTE Prophylaxis VTE Prophylaxis Intervention: LMWH Lines/Catheters IV Catheter Type (from Nrs): PICC Line Central line still needed: Yes (IV access) Urinary Cath still in place: No Assessment/Plan Chief Complaint/Hosp Course S: 56yr M admitted w atypical cp from [place]. Ruled out for ACS. Anasarca, started HD. Presently finished hd, on diuretics intermittently. Finished antibiotics for subacute OM. Presently being treated for conjunctivitis & otomastoiditis. 09/30: No distress. Participated w pt. 10/01: No events; see dc summary for details. 10/02: Diarrhea. No abd pain. Appetite stable. Pt does not qualify for skilled therapy today. 10/03: Less diarrhea, no abd pain fever. Atypical chest/ abd pain. Positive nausea intermittently. O: vss; low BP noted with activity. PE No pallor Reg, no m/r/g Ctab Bs + nt. nd. No r/r/g Ext - no edema. A/P 1. Atypical chest pain. Stable. Pleurisy? Cont risk factor modification. -ok to discharge. snf-not a candidate for skilled therapy. No family support/ home available. 2. Ileus; bowel care/ HD as needed for anasarca. Avoid narcotics if possible. 3. ARF. HD on hold; + Hep C. Avoid PICCs. 4. DM/metabolic syndrome. Cont bb/rfm. EF= 50%- Dd cLVH. Stress test -ve 08/09. 5. Chr OM. Sp laminectomy. Seen by NS. finished antibiotics. 5. Ho psoas muscle abscess. 7. Chr COPD 8. Chr hypothyroidism 9. BPH 10. Ftt, DC to ..?? ADL-Alf? vs home w home health. 11. Lt ear otitis externa? Treating otomastoiditis. 12. Ac cystitis. finished therapy 13. Chr pancytopenia/bm suppresion/ Hep C 14. Ho MRSA wound infection. Finish treatment 15. Conjunctivitis rt w VRE and JK virus. Finished linezolid; on Vigamox 16. Onychomycosis 17. Past alcoholism 18. Thrombocytopenia, no active bleed; hold heparin. antibiotics effect? 19. Diarrhea, probably antibiotic induced however ro C diff. 20. Orthostatic hypotension. Deconditioning; will improve with ambulation. Increase hob at rest. Problems: Exam/Review of Systems Vital Signs Vitals Vital Signs Date Time Temp Pulse Resp B/P Pulse Ox O2 Delivery O2 Flow Rate FiO2 10/03/16 07:20 98.6 76 18 117/62 96 10/03/16 06:35 Room Air 10/02/16 09:06 2.0 Intake and Output 10/02/16 10/02/16 10/03/16 15:00 23:00 07:00 Intake Total 680 ml 240 ml Output Total 500 ml 500 ml Balance 180 ml -260 ml Results Result Diagram: 10/03/16 0530 10/02/16 0440 Results 24 hrs Laboratory Tests Test 10/02/16 17:03 10/02/16 22:42 10/03/16 05:22 10/03/16 05:30 Bedside Glucose 117 100 74 White Blood Count 4.0 L Red Blood Count 2.72 L Hemoglobin 8.4 L Hematocrit 24.8 L Mean Corpuscular Volume 91.2 Mean Corpuscular Hemoglobin 30.9 Mean Corpuscular Hemoglobin Concent 33.9 Red Cell Distribution Width 14.8 H Platelet Count 42 L Mean Platelet Volume 10.3 Neutrophils % 57.1 Lymphocytes % 28.0 Monocytes % 5.3 Eosinophils % 8.8 H Basophils % 0.3 Nucleated Red Blood Cells % 0.0 Neutrophils # 2.3 Lymphocytes # 1.1 Monocytes # 0.2 L Eosinophils # 0.4 Basophils # 0.0 Nucleated Red Blood Cells # 0.0 Phosphorus Level 4.2 Magnesium Level 2.5 Lipase < 10 L Test 10/03/16 07:45 10/03/16 12:04 Bedside Glucose 75 115 Medications Medications Current Medications Finasteride (Proscar) 5 mg DAILY PO Last administered on 10/03/16 08:33; Admin Dose 5 MG; Start 09/02/16 at 09:00 Simethicone (Mylicon) 80 mg Q6H PRN PO DISTENSION/GAS/BLOATING Last administered on 09/17/16 21:03; Admin Dose 80 MG; Start 09/01/16 at 23:00 Ondansetron HCl (Zofran Inj) 4 mg Q6H PRN IV NAUSEA AND/OR VOMITING Last administered on 10/02/16 05:16; Admin Dose 4 MG; Start 09/01/16 at 23:30 Diagnostic Test (Pha) (Accu-Chek) 1 ea 02 XX Last administered on 09/25/16 02: 07; Admin Dose 1 EA; Start 09/02/16 at 02:00 Isosorbide Dinitrate (Isordil) 20 mg TID PO Last administered on 10/03/16 12: 07; Admin Dose 20 MG; Start 09/01/16 at 23:00 Miscellaneous Information 1 ea NOTE XX ; Start 09/01/16 at 23:30 Glucose (Glutose) 15 gm Q15M PRN PO DECREASED GLUCOSE; Start 09/01/16 at 23:30 Glucose (Glutose) 22.5 gm Q15M PRN PO DECREASED GLUCOSE; Start 09/01/16 at 23: 30 Dextrose (D50w Syringe) 25 ml Q15M PRN IV DECREASED GLUCOSE; Start 09/01/16 at 23:30 Dextrose (D50w Syringe) 50 ml Q15M PRN IV DECREASED GLUCOSE; Start 09/01/16 at 23:30 Glucagon (Glucagen) 1 mg Q15M PRN IM DECREASED GLUCOSE; Start 09/01/16 at 23:30 Glucose (Glutose) 15 gm Q15M PRN BUCCAL DECREASED GLUCOSE; Start 09/01/16 at 23 :30 Levothyroxine Sodium (Synthroid) 75 mcg DAILY@06 PO Last administered on 05:19; Admin Dose 75 MCG; Start 09/08/16 at 06:00 Cholecalciferol (Vitamin D) 1,000 unit DAILY PO Last administered on 10/03/16 08:32; Admin Dose 1,000 UNIT; Start 09/07/16 at 12:30 Lactobacillus Acidophilus (Florajen3 Capsule) 1 each BID PO Last administered on 10/03/16 08:32; Admin Dose 1 EACH; Start 09/09/16 at 21:00 Lactulose (Enulose) 30 gm BID PRN PO CONSTIPATION; Start 09/16/16 at 11:30 Moxifloxacin HCl (Vigamox) 1 drop TID BOTH EYES Last administered on 10/03/16 12:08; Admin Dose 1 DROP; Start 09/18/16 at 21:30 Hydralazine HCl (Apresoline) 10 mg Q4H PRN IV ELEVATED SYSTOLIC BP Last administered on 09/29/16 05:03; Admin Dose 10 MG; Start 09/19/16 at 01:00 Furosemide (Lasix) 40 mg DAILY PO Last administered on 10/03/16 08:33; Admin Dose 40 MG; Start 09/20/16 at 09:00; Status Future hold Nifedipine (Procardia Xl) 60 mg BID PO Last administered on 10/03/16 08:32; Admin Dose 60 MG; Start 09/24/16 at 09:00 Levofloxacin (Levaquin) 250 mg DAILY@06 PO Last administered on 10/03/16 05:19 ; Admin Dose 250 MG; Start 09/27/16 at 06:00 Doxazosin Mesylate (Cardura) 8 mg HS PO Last administered on 10/02/16 22:44; Admin Dose 8 MG; Start 09/27/16 at 21:00 Neomycin/ Polymyxin/ Hydrocortisone (Cortisporin Otic Susp) 4 drop QID LEFT EAR Last administered on 10/03/16 12:08; Admin Dose 4 DROP; Start 09/27/16 at 09: 00; Stop 10/04/16 at 08:59 Terbinafine HCl (Lamisil) 250 mg BID PO Last administered on 10/03/16 08:31; Admin Dose 250 MG; Start 09/27/16 at 09:00; Stop 10/04/16 at 08:59 Hydralazine HCl (Apresoline) 50 mg TID PO Last administered on 10/03/16 12:07 ; Admin Dose 50 MG; Start 09/28/16 at 13:00 Lorazepam (Ativan) 1 mg Q12H PRN IV Anxiety Last administered on 10/01/16 23: 06; Admin Dose 1 MG; Start 09/29/16 at 09:42 Morphine Sulfate (morphine) 2 mg Q4H PRN IV PAIN LEVEL 6-10 Last administered on 10/03/16 08:35; Admin Dose 2 MG; Start 09/29/16 at 11:30 Pantoprazole (Protonix Tab) 40 mg BID@06,18 PO Last administered on 10/03/16 05:19; Admin Dose 40 MG; Start 09/29/16 at 18:00 Aspirin (Aspirin) 81 mg DAILY PO Last administered on 10/02/16 08:29; Admin Dose 81 MG; Start 09/30/16 at 09:00; Status Future hold Oxycodone/ Acetaminophen (Percocet (5/ 325)) 1 tab Q4H PRN PO PAIN LEVEL 1-5; Start 09/30/16 at 13:30 Mirtazapine (Remeron) 15 mg HS PO Last administered on 10/02/16 22:45; Admin Dose 15 MG; Start 10/01/16 at 21:00 JAN HEMPHILL MD October 03, 2016 12:46
--- NOTE | 2016-10-03 14:32 | CONS ---
Date/Time of Note Date/Time of Note DATE: 10/03/16 TIME: 14:31 Assessment/Plan Assessment/Plan Chief Complaint/Hosp Course SUBJECTIVE: No events overnight. No fevers. ANTIMICROBIALS: 2. Vigamox eyedrops. 3. Levaquin qod PHYSICAL EXAMINATION: GENERAL: Chronically ill-appearing, middle-aged man who is in no distress. HEENT: Head atraumatic, normocephalic. Right eye still with some redness but no drainage. Buccal mucosa dry. NECK: Supple. CHEST: Rise symmetrical. Breath sounds clear, diminished to bases. HEART: S1, S2. ABDOMEN: Soft, bowel tones present. EXTREMITIES: Without cyanosis. ASSESSMENT: 1. Right conjunctivitis. Drainage of the eye grew VRE and corynebacterium group JK==> improved. 3. Status post urinary tract infection. 4. History of spinal abscess diskitis, status post surgical intervention, completed long-term antibiotics. 5. Acute on chronic kidney disease status post hemodialysis. 6. L otomastoiditis 7. Thrombocytopenia, lileky 2 to Zyvox PLAN: Doing better, continue Levaquin for 7 more days and probiotics. DW staff Problems: Consultation Date/Type/Reason Admit Date/Time Sep 01, 2016 at 17:29 Type of Consultation: ID Exam/Review of Systems Vital Signs Vitals Vital Signs Date Time Temp Pulse Resp B/P Pulse Ox O2 Delivery O2 Flow Rate FiO2 10/03/16 07:20 98.6 76 18 117/62 96 10/03/16 06:35 Room Air 10/02/16 09:06 2.0 Intake and Output 10/02/16 10/02/16 10/03/16 15:00 23:00 07:00 Intake Total 680 ml 240 ml Output Total 500 ml 500 ml Balance 180 ml -260 ml Results Result Diagram: 10/03/16 0530 10/02/16 0440 Results 24 hrs Laboratory Tests Test 10/02/16 17:03 10/02/16 22:42 10/03/16 05:22 10/03/16 05:30 Bedside Glucose 117 100 74 White Blood Count 4.0 L Red Blood Count 2.72 L Hemoglobin 8.4 L Hematocrit 24.8 L Mean Corpuscular Volume 91.2 Mean Corpuscular Hemoglobin 30.9 Mean Corpuscular Hemoglobin Concent 33.9 Red Cell Distribution Width 14.8 H Platelet Count 42 L Mean Platelet Volume 10.3 Neutrophils % 57.1 Lymphocytes % 28.0 Monocytes % 5.3 Eosinophils % 8.8 H Basophils % 0.3 Nucleated Red Blood Cells % 0.0 Neutrophils # 2.3 Lymphocytes # 1.1 Monocytes # 0.2 L Eosinophils # 0.4 Basophils # 0.0 Nucleated Red Blood Cells # 0.0 Phosphorus Level 4.2 Magnesium Level 2.5 Lipase < 10 L Test 10/03/16 07:45 10/03/16 12:04 Bedside Glucose 75 115 Medications Medications Current Medications Finasteride (Proscar) 5 mg DAILY PO Last administered on 10/03/16 08:33; Admin Dose 5 MG; Start 09/02/16 at 09:00 Simethicone (Mylicon) 80 mg Q6H PRN PO DISTENSION/GAS/BLOATING Last administered on 09/17/16 21:03; Admin Dose 80 MG; Start 09/01/16 at 23:00 Ondansetron HCl (Zofran Inj) 4 mg Q6H PRN IV NAUSEA AND/OR VOMITING Last administered on 10/02/16 05:16; Admin Dose 4 MG; Start 09/01/16 at 23:30 Diagnostic Test (Pha) (Accu-Chek) 1 ea 02 XX Last administered on 09/25/16 02: 07; Admin Dose 1 EA; Start 09/02/16 at 02:00 Isosorbide Dinitrate (Isordil) 20 mg TID PO Last administered on 10/03/16 12: 07; Admin Dose 20 MG; Start 09/01/16 at 23:00 Miscellaneous Information 1 ea NOTE XX ; Start 09/01/16 at 23:30 Glucose (Glutose) 15 gm Q15M PRN PO DECREASED GLUCOSE; Start 09/01/16 at 23:30 Glucose (Glutose) 22.5 gm Q15M PRN PO DECREASED GLUCOSE; Start 09/01/16 at 23: 30 Dextrose (D50w Syringe) 25 ml Q15M PRN IV DECREASED GLUCOSE; Start 09/01/16 at 23:30 Dextrose (D50w Syringe) 50 ml Q15M PRN IV DECREASED GLUCOSE; Start 09/01/16 at 23:30 Glucagon (Glucagen) 1 mg Q15M PRN IM DECREASED GLUCOSE; Start 09/01/16 at 23:30 Glucose (Glutose) 15 gm Q15M PRN BUCCAL DECREASED GLUCOSE; Start 09/01/16 at 23 :30 Levothyroxine Sodium (Synthroid) 75 mcg DAILY@06 PO Last administered on 05:19; Admin Dose 75 MCG; Start 09/08/16 at 06:00 Cholecalciferol (Vitamin D) 1,000 unit DAILY PO Last administered on 10/03/16 08:32; Admin Dose 1,000 UNIT; Start 09/07/16 at 12:30 Lactobacillus Acidophilus (Florajen3 Capsule) 1 each BID PO Last administered on 10/03/16 08:32; Admin Dose 1 EACH; Start 09/09/16 at 21:00 Lactulose (Enulose) 30 gm BID PRN PO CONSTIPATION; Start 09/16/16 at 11:30 Moxifloxacin HCl (Vigamox) 1 drop TID BOTH EYES Last administered on 10/03/16 12:08; Admin Dose 1 DROP; Start 09/18/16 at 21:30 Hydralazine HCl (Apresoline) 10 mg Q4H PRN IV ELEVATED SYSTOLIC BP Last administered on 09/29/16 05:03; Admin Dose 10 MG; Start 09/19/16 at 01:00 Furosemide (Lasix) 40 mg DAILY PO Last administered on 10/03/16 08:33; Admin Dose 40 MG; Start 09/20/16 at 09:00; Status Future hold Nifedipine (Procardia Xl) 60 mg BID PO Last administered on 10/03/16 08:32; Admin Dose 60 MG; Start 09/24/16 at 09:00 Levofloxacin (Levaquin) 250 mg DAILY@06 PO Last administered on 10/03/16 05:19 ; Admin Dose 250 MG; Start 09/27/16 at 06:00 Doxazosin Mesylate (Cardura) 8 mg HS PO Last administered on 10/02/16 22:44; Admin Dose 8 MG; Start 09/27/16 at 21:00 Neomycin/ Polymyxin/ Hydrocortisone (Cortisporin Otic Susp) 4 drop QID LEFT EAR Last administered on 10/03/16 12:08; Admin Dose 4 DROP; Start 09/27/16 at 09: 00; Stop 10/04/16 at 08:59 Terbinafine HCl (Lamisil) 250 mg BID PO Last administered on 10/03/16 08:31; Admin Dose 250 MG; Start 09/27/16 at 09:00; Stop 10/04/16 at 08:59 Hydralazine HCl (Apresoline) 50 mg TID PO Last administered on 10/03/16 12:07 ; Admin Dose 50 MG; Start 09/28/16 at 13:00 Lorazepam (Ativan) 1 mg Q12H PRN IV Anxiety Last administered on 10/01/16 23: 06; Admin Dose 1 MG; Start 09/29/16 at 09:42 Morphine Sulfate (morphine) 2 mg Q4H PRN IV PAIN LEVEL 6-10 Last administered on 10/03/16 12:55; Admin Dose 2 MG; Start 09/29/16 at 11:30 Pantoprazole (Protonix Tab) 40 mg BID@06,18 PO Last administered on 10/03/16 05:19; Admin Dose 40 MG; Start 09/29/16 at 18:00 Aspirin (Aspirin) 81 mg DAILY PO Last administered on 10/02/16 08:29; Admin Dose 81 MG; Start 09/30/16 at 09:00; Status Future hold Oxycodone/ Acetaminophen (Percocet (5/ 325)) 1 tab Q4H PRN PO PAIN LEVEL 1-5; Start 09/30/16 at 13:30 Mirtazapine (Remeron) 15 mg HS PO Last administered on 10/02/16 22:45; Admin Dose 15 MG; Start 10/01/16 at 21:00 DORENE GARCIA NP October 03, 2016 14:32
[2016-10-03 20:05] VITALS: BP 101/58; RESP 16
[2016-10-03] MEDS: MIRTAZAPINE 15 MG TAB PO SCH (20:49)
[2016-10-03] MEDS: DOXAZOSIN 4 MG TAB PO SCH (20:50)
[2016-10-04] MEDS: ACCU-CHEK XX SCH (01:30)
[2016-10-04] MEDS: LEVOFLOXACIN 250 MG TAB PO SCH (05:11)
[2016-10-04] MEDS: LEVOTHYROXINE 75 MCG TAB PO SCH (05:11)
[2016-10-04] MEDS: PANTOPRAZOLE (EC) 40 MG TAB PO SCH ×2 (05:11→17:27)
[2016-10-04] MEDS: morphine 2 MG INJ IV PRN ×4 (05:11→22:39)
[2016-10-04 06:09] LABS: CALCIUM 8.3 mg/dl (8.4-10.2); CREATININE 3.16 mg/dl (0.61-1.24); MAGNESIUM 2.6 mg/dl (1.7-2.5); PHOSPHORUS 3.9 mg/dl (2.5-4.9); POTASSIUM 5.4 mmol/L (3.5-5.1)
[2016-10-04] MEDS ORDERED: NA POLYST SULFON 15 GM/60 ML BTL PO ONE (07:30)
[2016-10-04] MEDS: SEVELAMER 800 MG TAB PO SCH ×4 (07:35→17:27)
[2016-10-04 07:43] VITALS: BP 174/84; RESP 18
[2016-10-04] MEDS: INSULIN ASPART [NOVOLOG] 3 ML PEN SC SCH ×4 (08:00→20:33)
[2016-10-04] MEDS: FINASTERIDE 5 MG TAB PO SCH (08:21)
[2016-10-04] MEDS: FUROSEMIDE 40 MG TAB PO SCH (08:21)
[2016-10-04] MEDS: L ACIDOPHIL/B LACTIS/B LONGUM CAPSULE PO SCH ×2 (08:21→20:29)
[2016-10-04] MEDS: NIFEdipine (XL) 60 MG TAB PO SCH ×2 (08:21→20:29)
[2016-10-04] MEDS: ISOSORBIDE DINITRATE 20 MG TAB PO SCH ×3 (08:22→20:29)
[2016-10-04] MEDS: CHOLECALCIFEROL 1,000 UNIT TAB PO SCH (08:22)
[2016-10-04] MEDS: MOXIFLOXACIN 0.5% 3 ML OPH BOTH EYES SCH ×3 (08:25→20:28)
[2016-10-04 09:00] VITALS: BP 126/75; PULSE 78
--- NOTE | 2016-10-04 10:52 | CONS ---
Date/Time of Note Date/Time of Note DATE: 10/04/16 TIME: 10:49 Consult Date/Type/Reason Admit Date/Time Sep 01, 2016 at 17:29 Initial Consult Date Type of Consultation: neph Subjective SUBJECTIVE: The patient is stable. No acute events overnight. No fevers, chills, nausea, or vomiting. OBJECTIVE: VITAL SIGNS: Blood pressure is 172/62, respirations 18, pulse 76, temperature 98.6. HEENT: Head is normocephalic. NECK: Supple. HEART: Regular rate. LUNGS: Show diminished breath sounds at the base. ABDOMEN: Soft, nontender to palpation. No rebound or guarding. EXTREMITIES: Negative for clubbing or cyanosis. No edema. DERMATOLOGIC: No rashes. MUSCULOSKELETAL: Have no joint effusion. NEUROLOGIC: No change in exam. MEDICATIONS: The patient's medications have been reviewed. Objective Vital Signs Date Time Temp Pulse Resp B/P Pulse Ox O2 Delivery O2 Flow Rate FiO2 10/04/16 07:43 98.3 65 18 174/84 97 10/03/16 06:35 Room Air 10/02/16 09:06 2.0 Intake and Output 10/03/16 10/03/16 10/04/16 15:00 23:00 07:00 Intake Total 860 ml 520 ml Output Total 250 ml 500 ml Balance 610 ml 20 ml Results/Medications Result Diagram: 10/03/16 0530 10/04/16 0445 Results 24 hrs Laboratory Tests Test 10/03/16 12:04 10/03/16 17:20 10/03/16 20:47 10/04/16 04:45 Bedside Glucose 115 108 106 Sodium Level 137 Potassium Level 5.4 H Chloride Level 108 Carbon Dioxide Level 25 Anion Gap 9 Blood Urea Nitrogen 72 H Creatinine 3.16 H Glucose Level 102 Calcium Level 8.3 L Phosphorus Level 3.9 Magnesium Level 2.6 H Test 10/04/16 08:00 Bedside Glucose 89 Medications Current Medications Finasteride (Proscar) 5 mg DAILY PO Last administered on 10/04/16 08:21; Admin Dose 5 MG; Start 09/02/16 at 09:00 Simethicone (Mylicon) 80 mg Q6H PRN PO DISTENSION/GAS/BLOATING Last administered on 09/17/16 21:03; Admin Dose 80 MG; Start 09/01/16 at 23:00 Ondansetron HCl (Zofran Inj) 4 mg Q6H PRN IV NAUSEA AND/OR VOMITING Last administered on 10/02/16 05:16; Admin Dose 4 MG; Start 09/01/16 at 23:30 Diagnostic Test (Pha) (Accu-Chek) 1 ea 02 XX Last administered on 09/25/16 02: 07; Admin Dose 1 EA; Start 09/02/16 at 02:00 Isosorbide Dinitrate (Isordil) 20 mg TID PO Last administered on 10/04/16 08: 22; Admin Dose 20 MG; Start 09/01/16 at 23:00 Miscellaneous Information 1 ea NOTE XX ; Start 09/01/16 at 23:30 Glucose (Glutose) 15 gm Q15M PRN PO DECREASED GLUCOSE; Start 09/01/16 at 23:30 Glucose (Glutose) 22.5 gm Q15M PRN PO DECREASED GLUCOSE; Start 09/01/16 at 23: 30 Dextrose (D50w Syringe) 25 ml Q15M PRN IV DECREASED GLUCOSE; Start 09/01/16 at 23:30 Dextrose (D50w Syringe) 50 ml Q15M PRN IV DECREASED GLUCOSE; Start 09/01/16 at 23:30 Glucagon (Glucagen) 1 mg Q15M PRN IM DECREASED GLUCOSE; Start 09/01/16 at 23:30 Glucose (Glutose) 15 gm Q15M PRN BUCCAL DECREASED GLUCOSE; Start 09/01/16 at 23 :30 Levothyroxine Sodium (Synthroid) 75 mcg DAILY@06 PO Last administered on 05:11; Admin Dose 75 MCG; Start 09/08/16 at 06:00 Cholecalciferol (Vitamin D) 1,000 unit DAILY PO Last administered on 10/04/16 08:22; Admin Dose 1,000 UNIT; Start 09/07/16 at 12:30 Lactobacillus Acidophilus (Florajen3 Capsule) 1 each BID PO Last administered on 10/04/16 08:21; Admin Dose 1 EACH; Start 09/09/16 at 21:00 Lactulose (Enulose) 30 gm BID PRN PO CONSTIPATION; Start 09/16/16 at 11:30 Moxifloxacin HCl (Vigamox) 1 drop TID BOTH EYES Last administered on 10/04/16 08:25; Admin Dose 1 DROP; Start 09/18/16 at 21:30 Hydralazine HCl (Apresoline) 10 mg Q4H PRN IV ELEVATED SYSTOLIC BP Last administered on 09/29/16 05:03; Admin Dose 10 MG; Start 09/19/16 at 01:00 Furosemide (Lasix) 40 mg DAILY PO Last administered on 10/04/16 08:21; Admin Dose 40 MG; Start 09/20/16 at 09:00; Status Future hold Nifedipine (Procardia Xl) 60 mg BID PO Last administered on 10/04/16 08:21; Admin Dose 60 MG; Start 09/24/16 at 09:00 Levofloxacin (Levaquin) 250 mg DAILY@06 PO Last administered on 10/04/16 05:11 ; Admin Dose 250 MG; Start 09/27/16 at 06:00 Doxazosin Mesylate (Cardura) 8 mg HS PO Last administered on 10/02/16 22:44; Admin Dose 8 MG; Start 09/27/16 at 21:00 Hydralazine HCl (Apresoline) 50 mg TID PO Last administered on 10/04/16 08:22 ; Admin Dose 50 MG; Start 09/28/16 at 13:00 Lorazepam (Ativan) 1 mg Q12H PRN IV Anxiety Last administered on 10/01/16 23: 06; Admin Dose 1 MG; Start 09/29/16 at 09:42 Morphine Sulfate (morphine) 2 mg Q4H PRN IV PAIN LEVEL 6-10 Last administered on 10/04/16 05:11; Admin Dose 2 MG; Start 09/29/16 at 11:30 Pantoprazole (Protonix Tab) 40 mg BID@06,18 PO Last administered on 10/04/16 05:11; Admin Dose 40 MG; Start 09/29/16 at 18:00 Aspirin (Aspirin) 81 mg DAILY PO Last administered on 10/02/16 08:29; Admin Dose 81 MG; Start 09/30/16 at 09:00; Status Future hold Oxycodone/ Acetaminophen (Percocet (5/ 325)) 1 tab Q4H PRN PO PAIN LEVEL 1-5; Start 09/30/16 at 13:30 Mirtazapine (Remeron) 15 mg HS PO Last administered on 10/03/16t 20:49; Admin Dose 15 MG; Start 10/01/16 at 21:00 Assessment/Plan Chief Complaint/Hosp Course ASSESSMENT AND PLAN: 1. Nonoliguric acute kidney injury on top of chronic kidney disease. Etiology is secondary to acute tubular necrosis. The patient is status post hemodialysis. Renal function has stabilized and hd is currently on hold. Continue the current treatment plan, supportive care, renally dose all meds. 2. Volume overload. Continue diuretic therapy and monitor renal function closely. 3. Mild hyperkalemia secondary to CKD. Continue to monitor and continue a low- potassium diet. 4. Hypertension. Continue the current blood pressure regimen. 5. Anemia of chronic disease. Continue to monitor hemoglobin and hematocrit levels. Continue Epogen. 6. Diabetes. Continue Accu-Cheks and insulin sliding scale. 7. Benign prostatic hypertrophy. Continue medical management. 8. Mineral bone disorder. Continue to monitor calcium and phos levels. Continue phos binders. 9. History of hepatitis C. Problems: SUSHIL ELENA MD October 04, 2016 10:52
--- NOTE | 2016-10-04 15:47 | PN ---
Date/Time of Note Date/Time of Note DATE: 10/04/16 TIME: 15:46 Assessment/Plan VTE Prophylaxis VTE Prophylaxis Intervention: LMWH Lines/Catheters IV Catheter Type (from Nrs): PICC Line Central line still needed: Yes (iv access) Urinary Cath still in place: No Assessment/Plan Chief Complaint/Hosp Course S: 56yr M admitted w atypical cp from [place]. Ruled out for ACS. Anasarca, started HD. Presently finished hd, on diuretics intermittently. Finished antibiotics for subacute OM. Presently being treated for conjunctivitis & otomastoiditis. 09/30: No distress. Participated w pt. 10/01: No events; see dc summary for details. 10/02: Diarrhea. No abd pain. Appetite stable. Pt does not qualify for skilled therapy today. 10/03: Less diarrhea, no abd pain fever. Atypical chest/ abd pain. Positive nausea intermittently. 10/04: No events. O: vss; low BP noted with activity. -C diff negative PE No pallor Reg, no m/r/g Ctab Bs + nt. nd. No r/r/g Ext - no edema. A/P 1. Atypical chest pain. Stable. Pleurisy? Cont risk factor modification. -ok to discharge. snf-long term? not a candidate for skilled therapy. No family support/home available. 2. Ileus; bowel care/ HD as needed for anasarca. Avoid narcotics if possible. 3. ARF. HD on hold; + Hep C. Avoid PICCs. 4. DM/metabolic syndrome. Cont bb/rfm. EF= 50%- Dd cLVH. Stress test -ve 08/09. 5. Chr OM. Sp laminectomy. Seen by NS. finished antibiotics. 5. Ho psoas muscle abscess. 7. Chr COPD 8. Chr hypothyroidism 9. BPH 10. Ftt, DC to ..?? SND/Longterm? vs home w home health. 11. Lt ear otitis externa? Treating otomastoiditis. 12. Ac cystitis. finished therapy 13. Chr pancytopenia/bm suppresion/ Hep C 14. Ho MRSA wound infection. Finish treatment 15. Conjunctivitis rt w VRE and JK virus. Finished linezolid; on Vigamox 16. Onychomycosis 17. Past alcoholism 18. Thrombocytopenia, no active bleed; hold heparin. antibiotics effect? 19. Diarrhea, probably antibiotic induced; c diff -ve. 20. Orthostatic hypotension. Deconditioning; will improve with ambulation. Increase hob at rest. Problems: Exam/Review of Systems Vital Signs Vitals Vital Signs Date Time Temp Pulse Resp B/P Pulse Ox O2 Delivery O2 Flow Rate FiO2 10/04/16 09:00 78 126/75 10/04/16 07:43 98.3 18 97 10/03/16 06:35 Room Air 10/02/16 09:06 2.0 Intake and Output 10/03/16 10/03/16 10/04/16 15:00 23:00 07:00 Intake Total 860 ml 520 ml Output Total 250 ml 500 ml Balance 610 ml 20 ml Results Result Diagram: 10/03/16 0530 10/04/16 0445 Results 24 hrs Laboratory Tests Test 10/03/16 17:20 10/03/16 20:47 10/04/16 04:45 10/04/16 08:00 Bedside Glucose 108 106 89 Sodium Level 137 Potassium Level 5.4 H Chloride Level 108 Carbon Dioxide Level 25 Anion Gap 9 Blood Urea Nitrogen 72 H Creatinine 3.16 H Glucose Level 102 Calcium Level 8.3 L Phosphorus Level 3.9 Magnesium Level 2.6 H Test 10/04/16 11:16 Bedside Glucose 98 Medications Medications Current Medications Finasteride (Proscar) 5 mg DAILY PO Last administered on 10/04/16 08:21; Admin Dose 5 MG; Start 09/02/16 at 09:00 Simethicone (Mylicon) 80 mg Q6H PRN PO DISTENSION/GAS/BLOATING Last administered on 09/17/16 21:03; Admin Dose 80 MG; Start 09/01/16 at 23:00 Ondansetron HCl (Zofran Inj) 4 mg Q6H PRN IV NAUSEA AND/OR VOMITING Last administered on 10/02/16 05:16; Admin Dose 4 MG; Start 09/01/16 at 23:30 Diagnostic Test (Pha) (Accu-Chek) 1 ea 02 XX Last administered on 09/25/16 02: 07; Admin Dose 1 EA; Start 09/02/16 at 02:00 Isosorbide Dinitrate (Isordil) 20 mg TID PO Last administered on 10/04/16 13: 13; Admin Dose 20 MG; Start 09/01/16 at 23:00 Miscellaneous Information 1 ea NOTE XX ; Start 09/01/16 at 23:30 Glucose (Glutose) 15 gm Q15M PRN PO DECREASED GLUCOSE; Start 09/01/16 at 23:30 Glucose (Glutose) 22.5 gm Q15M PRN PO DECREASED GLUCOSE; Start 09/01/16 at 23: 30 Dextrose (D50w Syringe) 25 ml Q15M PRN IV DECREASED GLUCOSE; Start 09/01/16 at 23:30 Dextrose (D50w Syringe) 50 ml Q15M PRN IV DECREASED GLUCOSE; Start 09/01/16 at 23:30 Glucagon (Glucagen) 1 mg Q15M PRN IM DECREASED GLUCOSE; Start 09/01/16 at 23:30 Glucose (Glutose) 15 gm Q15M PRN BUCCAL DECREASED GLUCOSE; Start 09/01/16 at 23 :30 Levothyroxine Sodium (Synthroid) 75 mcg DAILY@06 PO Last administered on 05:11; Admin Dose 75 MCG; Start 09/08/16 at 06:00 Cholecalciferol (Vitamin D) 1,000 unit DAILY PO Last administered on 10/04/16 08:22; Admin Dose 1,000 UNIT; Start 09/07/16 at 12:30 Lactobacillus Acidophilus (Florajen3 Capsule) 1 each BID PO Last administered on 10/04/16 08:21; Admin Dose 1 EACH; Start 09/09/16 at 21:00 Lactulose (Enulose) 30 gm BID PRN PO CONSTIPATION; Start 09/16/16 at 11:30 Moxifloxacin HCl (Vigamox) 1 drop TID BOTH EYES Last administered on 10/04/16 13:13; Admin Dose 1 DROP; Start 09/18/16 at 21:30 Hydralazine HCl (Apresoline) 10 mg Q4H PRN IV ELEVATED SYSTOLIC BP Last administered on 09/29/16 05:03; Admin Dose 10 MG; Start 09/19/16 at 01:00 Furosemide (Lasix) 40 mg DAILY PO Last administered on 10/04/16 08:21; Admin Dose 40 MG; Start 09/20/16 at 09:00; Status Future hold Nifedipine (Procardia Xl) 60 mg BID PO Last administered on 10/04/16 08:21; Admin Dose 60 MG; Start 09/24/16 at 09:00 Levofloxacin (Levaquin) 250 mg DAILY@06 PO Last administered on 10/04/16 05:11 ; Admin Dose 250 MG; Start 09/27/16 at 06:00 Doxazosin Mesylate (Cardura) 8 mg HS PO Last administered on 10/02/16 22:44; Admin Dose 8 MG; Start 09/27/16 at 21:00 Hydralazine HCl (Apresoline) 50 mg TID PO Last administered on 10/04/16 13:13 ; Admin Dose 50 MG; Start 09/28/16 at 13:00 Lorazepam (Ativan) 1 mg Q12H PRN IV Anxiety Last administered on 10/01/16 23: 06; Admin Dose 1 MG; Start 09/29/16 at 09:42 Morphine Sulfate (morphine) 2 mg Q4H PRN IV PAIN LEVEL 6-10 Last administered on 10/04/16 11:10; Admin Dose 2 MG; Start 09/29/16 at 11:30 Pantoprazole (Protonix Tab) 40 mg BID@06,18 PO Last administered on 10/04/16 05:11; Admin Dose 40 MG; Start 09/29/16 at 18:00 Aspirin (Aspirin) 81 mg DAILY PO Last administered on 10/02/16 08:29; Admin Dose 81 MG; Start 09/30/16 at 09:00; Status Future hold Oxycodone/ Acetaminophen (Percocet (5/ 325)) 1 tab Q4H PRN PO PAIN LEVEL 1-5; Start 09/30/16 at 13:30 Mirtazapine (Remeron) 15 mg HS PO Last administered on 10/03/16 20:49; Admin Dose 15 MG; Start 10/01/16 at 21:00 JAN HEMPHILL MD October 04, 2016 15:47
--- NOTE | 2016-10-04 19:34 | CONS ---
Date/Time of Note Date/Time of Note DATE: 10/04/16 TIME: 19:33 Assessment/Plan Assessment/Plan Chief Complaint/Hosp Course SUBJECTIVE: No events overnight. Awake, looks comfortable. No fevers. ANTIMICROBIALS: 2. Vigamox eyedrops. 3. Levaquin qod PHYSICAL EXAMINATION: GENERAL: Chronically ill-appearing, middle-aged man who is in no distress. HEENT: Head atraumatic, normocephalic. Right eye still with some redness but no drainage. Buccal mucosa dry. NECK: Supple. CHEST: Rise symmetrical. Breath sounds clear, diminished to bases. HEART: S1, S2. ABDOMEN: Soft, bowel tones present. EXTREMITIES: Without cyanosis. ASSESSMENT: 1. Right conjunctivitis. Drainage of the eye grew VRE and corynebacterium group JK==> improved. 3. Status post urinary tract infection. 4. History of spinal abscess diskitis, status post surgical intervention, completed long-term antibiotics. 5. Acute on chronic kidney disease status post hemodialysis. 6. L otomastoiditis 7. Thrombocytopenia, lileky 2 to Zyvox PLAN: Stable, continue Levaquin for 6 more days and probiotics. DW staff Problems: Consultation Date/Type/Reason Admit Date/Time Sep 01, 2016 at 17:29 Type of Consultation: id Exam/Review of Systems Vital Signs Vitals Vital Signs Date Time Temp Pulse Resp B/P Pulse Ox O2 Delivery O2 Flow Rate FiO2 10/04/16 09:00 78 126/75 10/04/16 07:43 98.3 18 97 10/03/16 06:35 Room Air 10/02/16 09:06 2.0 Intake and Output 10/03/16 10/03/16 10/04/16 15:00 23:00 07:00 Intake Total 860 ml 520 ml Output Total 250 ml 500 ml Balance 610 ml 20 ml Results Result Diagram: 10/03/16 0530 10/04/16 0445 Results 24 hrs Laboratory Tests Test 10/03/16 20:47 10/04/16 04:45 10/04/16 08:00 10/04/16 11:16 Bedside Glucose 106 89 98 Sodium Level 137 Potassium Level 5.4 H Chloride Level 108 Carbon Dioxide Level 25 Anion Gap 9 Blood Urea Nitrogen 72 H Creatinine 3.16 H Glucose Level 102 Calcium Level 8.3 L Phosphorus Level 3.9 Magnesium Level 2.6 H Test 10/04/16 17:09 Bedside Glucose 127 Medications Medications Current Medications Finasteride (Proscar) 5 mg DAILY PO Last administered on 10/04/16 08:21; Admin Dose 5 MG; Start 09/02/16 at 09:00 Simethicone (Mylicon) 80 mg Q6H PRN PO DISTENSION/GAS/BLOATING Last administered on 09/17/16 21:03; Admin Dose 80 MG; Start 09/01/16 at 23:00 Ondansetron HCl (Zofran Inj) 4 mg Q6H PRN IV NAUSEA AND/OR VOMITING Last administered on 10/02/16 05:16; Admin Dose 4 MG; Start 09/01/16 at 23:30 Diagnostic Test (Pha) (Accu-Chek) 1 ea 02 XX Last administered on 09/25/16 02: 07; Admin Dose 1 EA; Start 09/02/16 at 02:00 Isosorbide Dinitrate (Isordil) 20 mg TID PO Last administered on 10/04/16 13: 13; Admin Dose 20 MG; Start 09/01/16 at 23:00 Miscellaneous Information 1 ea NOTE XX ; Start 09/01/16 at 23:30 Glucose (Glutose) 15 gm Q15M PRN PO DECREASED GLUCOSE; Start 09/01/16 at 23:30 Glucose (Glutose) 22.5 gm Q15M PRN PO DECREASED GLUCOSE; Start 09/01/16 at 23: 30 Dextrose (D50w Syringe) 25 ml Q15M PRN IV DECREASED GLUCOSE; Start 09/01/16 at 23:30 Dextrose (D50w Syringe) 50 ml Q15M PRN IV DECREASED GLUCOSE; Start 09/01/16 at 23:30 Glucagon (Glucagen) 1 mg Q15M PRN IM DECREASED GLUCOSE; Start 09/01/16 at 23:30 Glucose (Glutose) 15 gm Q15M PRN BUCCAL DECREASED GLUCOSE; Start 09/01/16 at 23 :30 Levothyroxine Sodium (Synthroid) 75 mcg DAILY@06 PO Last administered on 05:11; Admin Dose 75 MCG; Start 09/08/16 at 06:00 Cholecalciferol (Vitamin D) 1,000 unit DAILY PO Last administered on 10/04/16 08:22; Admin Dose 1,000 UNIT; Start 09/07/16 at 12:30 Lactobacillus Acidophilus (Florajen3 Capsule) 1 each BID PO Last administered on 10/04/16 08:21; Admin Dose 1 EACH; Start 09/09/16 at 21:00 Lactulose (Enulose) 30 gm BID PRN PO CONSTIPATION; Start 09/16/16 at 11:30 Moxifloxacin HCl (Vigamox) 1 drop TID BOTH EYES Last administered on 10/04/16 13:13; Admin Dose 1 DROP; Start 09/18/16 at 21:30 Hydralazine HCl (Apresoline) 10 mg Q4H PRN IV ELEVATED SYSTOLIC BP Last administered on 09/29/16 05:03; Admin Dose 10 MG; Start 09/19/16 at 01:00 Furosemide (Lasix) 40 mg DAILY PO Last administered on 10/04/16 08:21; Admin Dose 40 MG; Start 09/20/16 at 09:00; Status Future hold Nifedipine (Procardia Xl) 60 mg BID PO Last administered on 10/04/16 08:21; Admin Dose 60 MG; Start 09/24/16 at 09:00 Levofloxacin (Levaquin) 250 mg DAILY@06 PO Last administered on 10/04/16 05:11 ; Admin Dose 250 MG; Start 09/27/16 at 06:00 Doxazosin Mesylate (Cardura) 8 mg HS PO Last administered on 10/02/16 22:44; Admin Dose 8 MG; Start 09/27/16 at 21:00 Hydralazine HCl (Apresoline) 50 mg TID PO Last administered on 10/04/16 13:13 ; Admin Dose 50 MG; Start 09/28/16 at 13:00 Lorazepam (Ativan) 1 mg Q12H PRN IV Anxiety Last administered on 10/01/16 23: 06; Admin Dose 1 MG; Start 09/29/16 at 09:42 Morphine Sulfate (morphine) 2 mg Q4H PRN IV PAIN LEVEL 6-10 Last administered on 10/04/16 18:19; Admin Dose 2 MG; Start 09/29/16 at 11:30 Pantoprazole (Protonix Tab) 40 mg BID@06,18 PO Last administered on 10/04/16 17:27; Admin Dose 40 MG; Start 09/29/16 at 18:00 Aspirin (Aspirin) 81 mg DAILY PO Last administered on 10/02/16 08:29; Admin Dose 81 MG; Start 09/30/16 at 09:00; Status Future hold Oxycodone/ Acetaminophen (Percocet (5/ 325)) 1 tab Q4H PRN PO PAIN LEVEL 1-5; Start 09/30/16 at 13:30 Mirtazapine (Remeron) 15 mg HS PO Last administered on 10/03/16 20:49; Admin Dose 15 MG; Start 10/01/16 at 21:00 DORENE GARCIA NP October 04, 2016 19:34
[2016-10-04] MEDS: MIRTAZAPINE 15 MG TAB PO SCH (20:30)
[2016-10-04] MEDS: DOXAZOSIN 4 MG TAB PO SCH (20:30)
[2016-10-04 21:09] VITALS: BP 118/66; RESP 16
[2016-10-05] MEDS: ACCU-CHEK XX SCH (01:24)
[2016-10-05 05:09] LABS: ADD SCAN DIFF NO
[2016-10-05] MEDS: morphine 2 MG INJ IV PRN ×4 (05:15→20:49)
[2016-10-05] MEDS: PANTOPRAZOLE (EC) 40 MG TAB PO SCH ×2 (05:15→17:49)
[2016-10-05] MEDS: LEVOFLOXACIN 250 MG TAB PO SCH (05:15)
[2016-10-05] MEDS: LEVOTHYROXINE 75 MCG TAB PO SCH (05:15)
[2016-10-05 05:16] LABS: ABNORMAL IP MESSAGE 1; BASOPHILS % 0.8 % (0.0-2.0); EOSINOPHILS # 0.2 10^3/ul (0.0-0.5); EOSINOPHILS % 9.6 % (0.0-7.0); HEMATOCRIT 25.8 % (42.0-52.0); HEMOGLOBIN 8.6 g/dl (14.0-18.0); LYMPHOCYTES # 0.9 10^3/ul (0.8-2.9); LYMPHOCYTES % 35.6 % (15.0-51.0); MEAN CORPUSCULAR HEMOGLOBIN 30.4 pg (29.0-33.0); MEAN CORPUSCULAR HGB CONC 33.3 g/dl (32.0-37.0); MEAN CORPUSCULAR VOLUME 91.2 fl (82.0-101.0); MEAN PLATELET VOLUME 9.6 fl (7.4-10.4); MONOCYTE # 0.2 10^3/ul (0.3-0.9); MONOCYTES % 7.5 % (0.0-11.0); NEUTROPHIL # 1.1 10^3/ul (1.6-7.5); NEUTROPHILS % 46.1 % (39.0-77.0); PLATELET COUNT 44 10^3/UL (140-415); RED BLOOD COUNT 2.83 10^6/ul (4.70-6.10); RED CELL DISTRIBUTION WIDTH 14.6 % (11.5-14.5); WHITE BLOOD COUNT 2.4 10^3/ul (4.8-10.8)
[2016-10-05 05:38] LABS: CALCIUM 8.4 mg/dl (8.4-10.2); CREATININE 2.94 mg/dl (0.61-1.24); MAGNESIUM 2.6 mg/dl (1.7-2.5); PHOSPHORUS 3.8 mg/dl (2.5-4.9); POTASSIUM 5.2 mmol/L (3.5-5.1)
[2016-10-05] MEDS: INSULIN ASPART [NOVOLOG] 3 ML PEN SC SCH ×4 (08:00→20:49)
[2016-10-05 08:01] VITALS: BP 152/83; RESP 16
[2016-10-05] MEDS: SEVELAMER 800 MG TAB PO SCH ×3 (08:29→17:49)
[2016-10-05] MEDS: MOXIFLOXACIN 0.5% 3 ML OPH BOTH EYES SCH ×3 (08:29→20:51)
[2016-10-05] MEDS: CHOLECALCIFEROL 1,000 UNIT TAB PO SCH (08:30)
[2016-10-05] MEDS: L ACIDOPHIL/B LACTIS/B LONGUM CAPSULE PO SCH ×2 (08:30→20:53)
[2016-10-05] MEDS: FINASTERIDE 5 MG TAB PO SCH (08:30)
[2016-10-05] MEDS: NIFEdipine (XL) 60 MG TAB PO SCH ×2 (08:31→20:54)
[2016-10-05] MEDS: ISOSORBIDE DINITRATE 20 MG TAB PO SCH ×3 (08:31→20:54)
[2016-10-05] MEDS: FUROSEMIDE 40 MG TAB PO SCH (08:31)
--- NOTE | 2016-10-05 09:18 | CONS ---
Date/Time of Note Date/Time of Note DATE: 10/05/16 TIME: 09:17 Consult Date/Type/Reason Admit Date/Time Sep 01, 2016 at 17:29 Type of Consultation: neph Subjective SUBJECTIVE: The patient is stable. No acute events overnight. No fevers, chills, nausea, or vomiting. OBJECTIVE: HEENT: Head is normocephalic. NECK: Supple. HEART: Regular rate. LUNGS: Show diminished breath sounds at the base. ABDOMEN: Soft, nontender to palpation. No rebound or guarding. EXTREMITIES: Negative for clubbing or cyanosis. No edema. DERMATOLOGIC: No rashes. MUSCULOSKELETAL: Have no joint effusion. NEUROLOGIC: No change in exam. MEDICATIONS: The patient's medications have been reviewed. Objective Vital Signs Date Time Temp Pulse Resp B/P Pulse Ox O2 Delivery O2 Flow Rate FiO2 10/05/16 08:01 97.6 65 16 152/83 97 10/03/16 06:35 Room Air 10/02/16 09:06 2.0 Intake and Output 10/04/16 10/04/16 10/05/16 15:00 23:00 07:00 Intake Total 680 ml 170 ml Output Total 600 ml 700 ml Balance 80 ml -530 ml Results/Medications Result Diagram: 10/05/16 0428 10/05/16 0425 Results 24 hrs Laboratory Tests Test 10/04/16 11:16 10/04/16 17:09 10/04/16 20:33 10/05/16 04:25 Bedside Glucose 98 127 125 Sodium Level 138 Potassium Level 5.2 H Chloride Level 108 Carbon Dioxide Level 25 Anion Gap 10 Blood Urea Nitrogen 70 H Creatinine 2.94 H Glucose Level 106 Calcium Level 8.4 Phosphorus Level 3.8 Magnesium Level 2.6 H Test 10/05/16 04:28 10/05/16 08:28 White Blood Count 2.4 #L Red Blood Count 2.83 L Hemoglobin 8.6 L Hematocrit 25.8 L Mean Corpuscular Volume 91.2 Mean Corpuscular Hemoglobin 30.4 Mean Corpuscular Hemoglobin Concent 33.3 Red Cell Distribution Width 14.6 H Platelet Count 44 L Mean Platelet Volume 9.6 Neutrophils % 46.1 Lymphocytes % 35.6 Monocytes % 7.5 Eosinophils % 9.6 H Basophils % 0.8 Nucleated Red Blood Cells % 0.0 Neutrophils # 1.1 L Lymphocytes # 0.9 Monocytes # 0.2 L Eosinophils # 0.2 Basophils # 0.0 Nucleated Red Blood Cells # 0.0 Bedside Glucose 112 Medications Current Medications Finasteride (Proscar) 5 mg DAILY PO Last administered on 10/05/16 08:30; Admin Dose 5 MG; Start 09/02/16 at 09:00 Simethicone (Mylicon) 80 mg Q6H PRN PO DISTENSION/GAS/BLOATING Last administered on 09/17/16 21:03; Admin Dose 80 MG; Start 09/01/16 at 23:00 Ondansetron HCl (Zofran Inj) 4 mg Q6H PRN IV NAUSEA AND/OR VOMITING Last administered on 10/02/16 05:16; Admin Dose 4 MG; Start 09/01/16 at 23:30 Diagnostic Test (Pha) (Accu-Chek) 1 ea 02 XX Last administered on 09/25/16 02: 07; Admin Dose 1 EA; Start 09/02/16 at 02:00 Isosorbide Dinitrate (Isordil) 20 mg TID PO Last administered on 10/05/16 08: 31; Admin Dose 20 MG; Start 09/01/16 at 23:00 Miscellaneous Information 1 ea NOTE XX ; Start 09/01/16 at 23:30 Glucose (Glutose) 15 gm Q15M PRN PO DECREASED GLUCOSE; Start 09/01/16 at 23:30 Glucose (Glutose) 22.5 gm Q15M PRN PO DECREASED GLUCOSE; Start 09/01/16 at 23: 30 Dextrose (D50w Syringe) 25 ml Q15M PRN IV DECREASED GLUCOSE; Start 09/01/16 at 23:30 Dextrose (D50w Syringe) 50 ml Q15M PRN IV DECREASED GLUCOSE; Start 09/01/16 at 23:30 Glucagon (Glucagen) 1 mg Q15M PRN IM DECREASED GLUCOSE; Start 09/01/16 at 23:30 Glucose (Glutose) 15 gm Q15M PRN BUCCAL DECREASED GLUCOSE; Start 09/01/16 at 23 :30 Levothyroxine Sodium (Synthroid) 75 mcg DAILY@06 PO Last administered on 05:15; Admin Dose 75 MCG; Start 09/08/16 at 06:00 Cholecalciferol (Vitamin D) 1,000 unit DAILY PO Last administered on 10/05/16 08:30; Admin Dose 1,000 UNIT; Start 09/07/16 at 12:30 Lactobacillus Acidophilus (Florajen3 Capsule) 1 each BID PO Last administered on 10/05/16 08:30; Admin Dose 1 EACH; Start 09/09/16 at 21:00 Lactulose (Enulose) 30 gm BID PRN PO CONSTIPATION; Start 09/16/16 at 11:30 Moxifloxacin HCl (Vigamox) 1 drop TID BOTH EYES Last administered on 10/05/16 08:29; Admin Dose 1 DROP; Start 09/18/16 at 21:30 Hydralazine HCl (Apresoline) 10 mg Q4H PRN IV ELEVATED SYSTOLIC BP Last administered on 09/29/16 05:03; Admin Dose 10 MG; Start 09/19/16 at 01:00 Furosemide (Lasix) 40 mg DAILY PO Last administered on 10/05/16 08:31; Admin Dose 40 MG; Start 09/20/16 at 09:00; Status Future hold Nifedipine (Procardia Xl) 60 mg BID PO Last administered on 10/05/16 08:31; Admin Dose 60 MG; Start 09/24/16 at 09:00 Levofloxacin (Levaquin) 250 mg DAILY@06 PO Last administered on 10/05/16 05:15 ; Admin Dose 250 MG; Start 09/27/16 at 06:00 Doxazosin Mesylate (Cardura) 8 mg HS PO Last administered on 10/04/16 20:30; Admin Dose 8 MG; Start 09/27/16 at 21:00 Hydralazine HCl (Apresoline) 50 mg TID PO Last administered on 10/05/16 08:31 ; Admin Dose 50 MG; Start 09/28/16 at 13:00 Lorazepam (Ativan) 1 mg Q12H PRN IV Anxiety Last administered on 10/01/16 23: 06; Admin Dose 1 MG; Start 09/29/16 at 09:42 Morphine Sulfate (morphine) 2 mg Q4H PRN IV PAIN LEVEL 6-10 Last administered on 10/05/16 05:15; Admin Dose 2 MG; Start 09/29/16 at 11:30 Pantoprazole (Protonix Tab) 40 mg BID@06,18 PO Last administered on 10/05/16 05:15; Admin Dose 40 MG; Start 09/29/16 at 18:00 Aspirin (Aspirin) 81 mg DAILY PO Last administered on 10/02/16 08:29; Admin Dose 81 MG; Start 09/30/16 at 09:00; Status Future hold Oxycodone/ Acetaminophen (Percocet (5/ 325)) 1 tab Q4H PRN PO PAIN LEVEL 1-5; Start 09/30/16 at 13:30 Mirtazapine (Remeron) 15 mg HS PO Last administered on 10/04/16 20:30; Admin Dose 15 MG; Start 10/01/16 at 21:00 Assessment/Plan Chief Complaint/Hosp Course ASSESSMENT AND PLAN: 1. Nonoliguric acute kidney injury on top of chronic kidney disease. Etiology is secondary to acute tubular necrosis. The patient is status post hemodialysis. Renal function has stabilized and hd is currently on hold. Continue the current treatment plan, supportive care, renally dose all meds. no acei sec to hyperkalemia. 2. Volume overload. Continue diuretic therapy and monitor renal function closely. 3. Mild hyperkalemia secondary to CKD. Continue to monitor and continue a low- potassium diet. 4. Hypertension. Continue the current blood pressure regimen. 5. Anemia of chronic disease. Continue to monitor hemoglobin and hematocrit levels. Continue Epogen. 6. Diabetes. Continue Accu-Cheks and insulin sliding scale. 7. Benign prostatic hypertrophy. Continue medical management. 8. Mineral bone disorder. Continue to monitor calcium and phos levels. Continue phos binders. 9. History of hepatitis C. Problems: SUSHIL ELENA MD October 05, 2016 09:18
[2016-10-05] MEDS ORDERED: LOPERAMIDE 2 MG CAP PO ONE (11:00)
--- NOTE | 2016-10-05 11:02 | PN ---
Date/Time of Note Date/Time of Note DATE: 10/05/16 TIME: 11:00 Assessment/Plan VTE Prophylaxis VTE Prophylaxis Intervention: contraindicated VTE Contraindication Reason: blood coagulation disorder (Low platelets) Lines/Catheters IV Catheter Type (from Nrs): PICC Line Central line still needed: Yes (IV access) Urinary Cath still in place: No Assessment/Plan Chief Complaint/Hosp Course S: 56yr M admitted w atypical cp from [place]. Ruled out for ACS. Anasarca, started HD. Presently finished hd, on diuretics intermittently. Finished antibiotics for subacute OM. Presently being treated for conjunctivitis & otomastoiditis. 09/30: No distress. Participated w pt. 10/01: No events; see dc summary for details. 10/02: Diarrhea. No abd pain. Appetite stable. Pt does not qualify for skilled therapy today. 10/03: Less diarrhea, no abd pain fever. Atypical chest/ abd pain. Positive nausea intermittently. 10/04: No events. 10/05: Diarrhea but no abd pain nausea or fever. O: vss; low BP noted with activity. -C diff negative PE No pallor Reg, no m/r/g Ctab Bs + nt. nd. No r/r/g Ext - no edema. A/P 1. Atypical chest pain. Stable. Pleurisy? Cont risk factor modification. -ok to discharge. snf-shelter? not a candidate for skilled therapy. No family support/home available. 2. Ileus; bowel care/ HD as needed for anasarca. Avoid narcotics if possible. 3. ARF. HD on hold; + Hep C. Avoid PICCs. 4. DM/metabolic syndrome. Cont bb/rfm. EF= 50%- Dd cLVH. Stress test -ve 08/09. 5. Chr OM. Sp laminectomy. Seen by NS. finished antibiotics. 5. Ho psoas muscle abscess. 7. Chr COPD 8. Chr hypothyroidism 9. BPH 10. Ftt, DC to ..?? SNF/Prison? vs home w home health. 11. Lt ear otitis externa? Treating otomastoiditis. 12. Ac cystitis. finished therapy 13. Chr pancytopenia/bm suppresion/ Hep C 14. Ho MRSA wound infection. Finish treatment 15. Conjunctivitis rt w VRE and JK virus. Finished linezolid; on Vigamox 16. Onychomycosis 17. Past alcoholism 18. Thrombocytopenia, no active bleed; hold heparin/asa. antibiotics effect? - Finished linezolid. 19. Diarrhea, probably antibiotic/Levaquin linezolid, or Renagel induced; c diff -ve. 1 dose Imodium. 20. Orthostatic hypotension. Deconditioning; will improve with ambulation. Increase hob at rest. Problems: Exam/Review of Systems Vital Signs Vitals Vital Signs Date Time Temp Pulse Resp B/P Pulse Ox O2 Delivery O2 Flow Rate FiO2 10/05/16 08:01 97.6 65 16 152/83 97 10/03/16 06:35 Room Air 10/02/16 09:06 2.0 Intake and Output 10/04/16 10/04/16 10/05/16 15:00 23:00 07:00 Intake Total 680 ml 170 ml Output Total 600 ml 700 ml Balance 80 ml -530 ml Results Result Diagram: 10/05/16 0428 10/05/16 0425 Results 24 hrs Laboratory Tests Test 10/04/16 11:16 10/04/16 17:09 10/04/16 20:33 10/05/16 04:25 Bedside Glucose 98 127 125 Sodium Level 138 Potassium Level 5.2 H Chloride Level 108 Carbon Dioxide Level 25 Anion Gap 10 Blood Urea Nitrogen 70 H Creatinine 2.94 H Glucose Level 106 Calcium Level 8.4 Phosphorus Level 3.8 Magnesium Level 2.6 H Test 10/05/16 04:28 10/05/16 08:28 White Blood Count 2.4 #L Red Blood Count 2.83 L Hemoglobin 8.6 L Hematocrit 25.8 L Mean Corpuscular Volume 91.2 Mean Corpuscular Hemoglobin 30.4 Mean Corpuscular Hemoglobin Concent 33.3 Red Cell Distribution Width 14.6 H Platelet Count 44 L Mean Platelet Volume 9.6 Neutrophils % 46.1 Lymphocytes % 35.6 Monocytes % 7.5 Eosinophils % 9.6 H Basophils % 0.8 Nucleated Red Blood Cells % 0.0 Neutrophils # 1.1 L Lymphocytes # 0.9 Monocytes # 0.2 L Eosinophils # 0.2 Basophils # 0.0 Nucleated Red Blood Cells # 0.0 Bedside Glucose 112 Medications Medications Current Medications Finasteride (Proscar) 5 mg DAILY PO Last administered on 10/05/16 08:30; Admin Dose 5 MG; Start 09/02/16 at 09:00 Simethicone (Mylicon) 80 mg Q6H PRN PO DISTENSION/GAS/BLOATING Last administered on 09/17/16 21:03; Admin Dose 80 MG; Start 09/01/16 at 23:00 Ondansetron HCl (Zofran Inj) 4 mg Q6H PRN IV NAUSEA AND/OR VOMITING Last administered on 10/02/16 05:16; Admin Dose 4 MG; Start 09/01/16 at 23:30 Diagnostic Test (Pha) (Accu-Chek) 1 ea 02 XX Last administered on 09/25/16 02: 07; Admin Dose 1 EA; Start 09/02/16 at 02:00 Isosorbide Dinitrate (Isordil) 20 mg TID PO Last administered on 10/05/16 08: 31; Admin Dose 20 MG; Start 09/01/16 at 23:00 Miscellaneous Information 1 ea NOTE XX ; Start 09/01/16 at 23:30 Glucose (Glutose) 15 gm Q15M PRN PO DECREASED GLUCOSE; Start 09/01/16 at 23:30 Glucose (Glutose) 22.5 gm Q15M PRN PO DECREASED GLUCOSE; Start 09/01/16 at 23: 30 Dextrose (D50w Syringe) 25 ml Q15M PRN IV DECREASED GLUCOSE; Start 09/01/16 at 23:30 Dextrose (D50w Syringe) 50 ml Q15M PRN IV DECREASED GLUCOSE; Start 09/01/16 at 23:30 Glucagon (Glucagen) 1 mg Q15M PRN IM DECREASED GLUCOSE; Start 09/01/16 at 23:30 Glucose (Glutose) 15 gm Q15M PRN BUCCAL DECREASED GLUCOSE; Start 09/01/16 at 23 :30 Levothyroxine Sodium (Synthroid) 75 mcg DAILY@06 PO Last administered on 05:15; Admin Dose 75 MCG; Start 09/08/16 at 06:00 Cholecalciferol (Vitamin D) 1,000 unit DAILY PO Last administered on 10/05/16 08:30; Admin Dose 1,000 UNIT; Start 09/07/16 at 12:30 Lactobacillus Acidophilus (Florajen3 Capsule) 1 each BID PO Last administered on 10/05/16 08:30; Admin Dose 1 EACH; Start 09/09/16 at 21:00 Lactulose (Enulose) 30 gm BID PRN PO CONSTIPATION; Start 09/16/16 at 11:30 Moxifloxacin HCl (Vigamox) 1 drop TID BOTH EYES Last administered on 10/05/16 08:29; Admin Dose 1 DROP; Start 09/18/16 at 21:30 Hydralazine HCl (Apresoline) 10 mg Q4H PRN IV ELEVATED SYSTOLIC BP Last administered on 09/29/16 05:03; Admin Dose 10 MG; Start 09/19/16 at 01:00 Furosemide (Lasix) 40 mg DAILY PO Last administered on 10/05/16 08:31; Admin Dose 40 MG; Start 09/20/16 at 09:00; Status Future hold Nifedipine (Procardia Xl) 60 mg BID PO Last administered on 10/05/16 08:31; Admin Dose 60 MG; Start 09/24/16 at 09:00 Levofloxacin (Levaquin) 250 mg DAILY@06 PO Last administered on 10/05/16 05:15 ; Admin Dose 250 MG; Start 09/27/16 at 06:00 Doxazosin Mesylate (Cardura) 8 mg HS PO Last administered on 10/04/16 20:30; Admin Dose 8 MG; Start 09/27/16 at 21:00 Hydralazine HCl (Apresoline) 50 mg TID PO Last administered on 10/05/16 08:31 ; Admin Dose 50 MG; Start 09/28/16 at 13:00 Lorazepam (Ativan) 1 mg Q12H PRN IV Anxiety Last administered on 10/01/16 23: 06; Admin Dose 1 MG; Start 09/29/16 at 09:42 Morphine Sulfate (morphine) 2 mg Q4H PRN IV PAIN LEVEL 6-10 Last administered on 10/05/16 09:55; Admin Dose 2 MG; Start 09/29/16 at 11:30 Pantoprazole (Protonix Tab) 40 mg BID@06,18 PO Last administered on 10/05/16 05:15; Admin Dose 40 MG; Start 09/29/16 at 18:00 Aspirin (Aspirin) 81 mg DAILY PO Last administered on 10/02/16 08:29; Admin Dose 81 MG; Start 09/30/16 at 09:00; Status Future hold Oxycodone/ Acetaminophen (Percocet (5/ 325)) 1 tab Q4H PRN PO PAIN LEVEL 1-5; Start 09/30/16 at 13:30 Mirtazapine (Remeron) 15 mg HS PO Last administered on 10/04/16t 20:30; Admin Dose 15 MG; Start 10/01/16 at 21:00 JAN HEMPHILL MD October 05, 2016 11:02
--- NOTE | 2016-10-05 16:09 | CONS ---
Date/Time of Note Date/Time of Note DATE: 10/05/16 TIME: 16:07 Assessment/Plan Assessment/Plan Chief Complaint/Hosp Course SUBJECTIVE: No events overnight. Awake, looks comfortable. No fevers. ANTIMICROBIALS: 2. Vigamox eyedrops. 3. Levaquin qod PHYSICAL EXAMINATION: GENERAL: Chronically ill-appearing, middle-aged man who is in no distress. HEENT: Head atraumatic, normocephalic. Right eye still with some redness but no drainage. Buccal mucosa dry. NECK: Supple. CHEST: Rise symmetrical. Breath sounds clear, diminished to bases. HEART: S1, S2. ABDOMEN: Soft, bowel tones present. EXTREMITIES: Without cyanosis. ASSESSMENT: 1. Right conjunctivitis. Drainage of the eye grew VRE and corynebacterium group JK==> improved. 3. Status post urinary tract infection. 4. History of spinal abscess diskitis, status post surgical intervention, completed long-term antibiotics. 5. Acute on chronic kidney disease status post hemodialysis. 6. L otomastoiditis 7. Pancytopenia PLAN: Stable, continue Levaquin for 5 more days and probiotics, nephrology rec-s , fluid restriction ?hematology eval for persistent pancytopenia. DW staff Problems: Consultation Date/Type/Reason Admit Date/Time Sep 01, 2016 at 17:29 Type of Consultation: neph Exam/Review of Systems Vital Signs Vitals Vital Signs Date Time Temp Pulse Resp B/P Pulse Ox O2 Delivery O2 Flow Rate FiO2 10/05/16 08:01 97.6 65 16 152/83 97 10/03/16 06:35 Room Air 10/02/16 09:06 2.0 Intake and Output 10/04/16 10/04/16 10/05/16 15:00 23:00 07:00 Intake Total 680 ml 170 ml Output Total 600 ml 700 ml Balance 80 ml -530 ml Results Result Diagram: 10/05/16 0428 10/05/16 0425 Results 24 hrs Laboratory Tests Test 10/04/16 17:09 10/04/16 20:33 10/05/16 04:25 10/05/16 04:28 Bedside Glucose 127 125 Sodium Level 138 Potassium Level 5.2 H Chloride Level 108 Carbon Dioxide Level 25 Anion Gap 10 Blood Urea Nitrogen 70 H Creatinine 2.94 H Glucose Level 106 Calcium Level 8.4 Phosphorus Level 3.8 Magnesium Level 2.6 H White Blood Count 2.4 #L Red Blood Count 2.83 L Hemoglobin 8.6 L Hematocrit 25.8 L Mean Corpuscular Volume 91.2 Mean Corpuscular Hemoglobin 30.4 Mean Corpuscular Hemoglobin Concent 33.3 Red Cell Distribution Width 14.6 H Platelet Count 44 L Mean Platelet Volume 9.6 Neutrophils % 46.1 Lymphocytes % 35.6 Monocytes % 7.5 Eosinophils % 9.6 H Basophils % 0.8 Nucleated Red Blood Cells % 0.0 Neutrophils # 1.1 L Lymphocytes # 0.9 Monocytes # 0.2 L Eosinophils # 0.2 Basophils # 0.0 Nucleated Red Blood Cells # 0.0 Test 10/05/16 08:28 10/05/16 12:15 Bedside Glucose 112 180 Medications Medications Current Medications Finasteride (Proscar) 5 mg DAILY PO Last administered on 10/05/16 08:30; Admin Dose 5 MG; Start 09/02/16 at 09:00 Simethicone (Mylicon) 80 mg Q6H PRN PO DISTENSION/GAS/BLOATING Last administered on 09/17/16 21:03; Admin Dose 80 MG; Start 09/01/16 at 23:00 Ondansetron HCl (Zofran Inj) 4 mg Q6H PRN IV NAUSEA AND/OR VOMITING Last administered on 10/02/16 05:16; Admin Dose 4 MG; Start 09/01/16 at 23:30 Diagnostic Test (Pha) (Accu-Chek) 1 ea 02 XX Last administered on 09/25/16 02: 07; Admin Dose 1 EA; Start 09/02/16 at 02:00 Isosorbide Dinitrate (Isordil) 20 mg TID PO Last administered on 10/05/16 12: 18; Admin Dose 20 MG; Start 09/01/16 at 23:00 Miscellaneous Information 1 ea NOTE XX ; Start 09/01/16 at 23:30 Glucose (Glutose) 15 gm Q15M PRN PO DECREASED GLUCOSE; Start 09/01/16 at 23:30 Glucose (Glutose) 22.5 gm Q15M PRN PO DECREASED GLUCOSE; Start 09/01/16 at 23: 30 Dextrose (D50w Syringe) 25 ml Q15M PRN IV DECREASED GLUCOSE; Start 09/01/16 at 23:30 Dextrose (D50w Syringe) 50 ml Q15M PRN IV DECREASED GLUCOSE; Start 09/01/16 at 23:30 Glucagon (Glucagen) 1 mg Q15M PRN IM DECREASED GLUCOSE; Start 09/01/16 at 23:30 Glucose (Glutose) 15 gm Q15M PRN BUCCAL DECREASED GLUCOSE; Start 09/01/16 at 23 :30 Levothyroxine Sodium (Synthroid) 75 mcg DAILY@06 PO Last administered on 05:15; Admin Dose 75 MCG; Start 09/08/16 at 06:00 Cholecalciferol (Vitamin D) 1,000 unit DAILY PO Last administered on 10/05/16 08:30; Admin Dose 1,000 UNIT; Start 09/07/16 at 12:30 Lactobacillus Acidophilus (Florajen3 Capsule) 1 each BID PO Last administered on 10/05/16 08:30; Admin Dose 1 EACH; Start 09/09/16 at 21:00 Lactulose (Enulose) 30 gm BID PRN PO CONSTIPATION; Start 09/16/16 at 11:30 Moxifloxacin HCl (Vigamox) 1 drop TID BOTH EYES Last administered on 10/05/16 12:21; Admin Dose 1 DROP; Start 09/18/16 at 21:30 Hydralazine HCl (Apresoline) 10 mg Q4H PRN IV ELEVATED SYSTOLIC BP Last administered on 09/29/16 05:03; Admin Dose 10 MG; Start 09/19/16 at 01:00 Furosemide (Lasix) 40 mg DAILY PO Last administered on 10/05/16 08:31; Admin Dose 40 MG; Start 09/20/16 at 09:00; Status Future hold Nifedipine (Procardia Xl) 60 mg BID PO Last administered on 10/05/16 08:31; Admin Dose 60 MG; Start 09/24/16 at 09:00 Levofloxacin (Levaquin) 250 mg DAILY@06 PO Last administered on 10/05/16 05:15 ; Admin Dose 250 MG; Start 09/27/16 at 06:00 Doxazosin Mesylate (Cardura) 8 mg HS PO Last administered on 10/04/16 20:30; Admin Dose 8 MG; Start 09/27/16 at 21:00 Hydralazine HCl (Apresoline) 50 mg TID PO Last administered on 10/05/16 12:18 ; Admin Dose 50 MG; Start 09/28/16 at 13:00 Lorazepam (Ativan) 1 mg Q12H PRN IV Anxiety Last administered on 10/01/16 23: 06; Admin Dose 1 MG; Start 09/29/16 at 09:42 Morphine Sulfate (morphine) 2 mg Q4H PRN IV PAIN LEVEL 6-10 Last administered on 10/05/16 14:15; Admin Dose 2 MG; Start 09/29/16 at 11:30 Pantoprazole (Protonix Tab) 40 mg BID@,18 PO Last administered on 10/05/16 05:15; Admin Dose 40 MG; Start 09/29/16 at 18:00 Aspirin (Aspirin) 81 mg DAILY PO Last administered on 10/02/16 08:29; Admin Dose 81 MG; Start 09/30/16 at 09:00; Status Future hold Oxycodone/ Acetaminophen (Percocet (5/ 325)) 1 tab Q4H PRN PO PAIN LEVEL 1-5; Start 09/30/16 at 13:30 Mirtazapine (Remeron) 30 mg HS PO ; Start 10/06/16 at 21:00 Psyllium Hydrophilic Mucilloid (Metamucil) 1 pkt DAILY PO ; Start 10/06/16 at 09 :00 DORENE GARCIA NP October 05, 2016 16:09
[2016-10-05 20:38] VITALS: BP 104/64; RESP 18
[2016-10-05] MEDS: DOXAZOSIN 4 MG TAB PO SCH (20:54)
[2016-10-06] MEDS: ACCU-CHEK XX SCH (01:59)
[2016-10-06] MEDS: morphine 2 MG INJ IV PRN ×3 (04:56→13:57)
[2016-10-06 05:10] LABS: ADD SCAN DIFF NO
[2016-10-06 05:20] LABS: ABNORMAL IP MESSAGE 1; HEMATOCRIT 23.5 % (42.0-52.0); HEMOGLOBIN 8.1 g/dl (14.0-18.0); MEAN CORPUSCULAR HEMOGLOBIN 31.3 pg (29.0-33.0); MEAN CORPUSCULAR HGB CONC 34.5 g/dl (32.0-37.0); MEAN CORPUSCULAR VOLUME 90.7 fl (82.0-101.0); MEAN PLATELET VOLUME 10.1 fl (7.4-10.4); PLATELET COUNT 53 10^3/UL (140-415); RED BLOOD COUNT 2.59 10^6/ul (4.70-6.10); RED CELL DISTRIBUTION WIDTH 14.5 % (11.5-14.5); WHITE BLOOD COUNT 2.9 10^3/ul (4.8-10.8)
[2016-10-06 05:39] LABS: ALBUMIN 2.9 g/dl (3.3-4.9)
[2016-10-06 05:40] LABS: POTASSIUM 5.1 mmol/L (3.5-5.1)
[2016-10-06 05:42] LABS: ALBUMIN/GLOBULIN RATIO 0.8; CALCIUM 8.2 mg/dl (8.4-10.2); CREATININE 2.87 mg/dl (0.61-1.24); TOTAL PROTEIN 6.5 g/dl (6.1-8.1)
[2016-10-06] MEDS: LEVOTHYROXINE 75 MCG TAB PO SCH (05:52)
[2016-10-06] MEDS: PANTOPRAZOLE (EC) 40 MG TAB PO SCH ×2 (05:52→17:07)
[2016-10-06] MEDS: LEVOFLOXACIN 250 MG TAB PO SCH (05:52)
[2016-10-06 08:00] VITALS: BP 139/85; RESP 15
[2016-10-06] MEDS: SEVELAMER 800 MG TAB PO SCH ×3 (08:00→17:07)
[2016-10-06] MEDS: INSULIN ASPART [NOVOLOG] 3 ML PEN SC SCH ×3 (08:01→17:12)
[2016-10-06] MEDS ORDERED: PSYLLIUM 28% PACKET PO SCH (09:00)
[2016-10-06 09:14] LABS: BASOPHIL # 0.1 10^3/ul (0.0-0.1); EOSINOPHILS # 0.1 10^3/ul (0.0-0.5); MONOCYTE # 0.1 10^3/ul (0.3-0.9); NEUTROPHIL # 1.6 10^3/ul (1.6-7.5)
[2016-10-06] MEDS: L ACIDOPHIL/B LACTIS/B LONGUM CAPSULE PO SCH (09:23)
[2016-10-06] MEDS: FINASTERIDE 5 MG TAB PO SCH (09:24)
[2016-10-06] MEDS: NIFEdipine (XL) 60 MG TAB PO SCH (09:24)
[2016-10-06] MEDS: FUROSEMIDE 40 MG TAB PO SCH (09:24)
[2016-10-06] MEDS: ISOSORBIDE DINITRATE 20 MG TAB PO SCH ×2 (09:24→12:12)
[2016-10-06] MEDS: MOXIFLOXACIN 0.5% 3 ML OPH BOTH EYES SCH ×2 (09:25→12:13)
[2016-10-06] MEDS: CHOLECALCIFEROL 1,000 UNIT TAB PO SCH (09:25)
--- NOTE | 2016-10-06 10:26 | PN ---
DATE: 10/06/2016 SUBJECTIVE: The patient is stable. No events overnight. No fevers, chills, nausea, vomiting. OBJECTIVE: VITAL SIGNS: Blood pressure 139/85, respirations 15, pulse 73, temperature 97.8. HEENT: Head is normocephalic. NECK: Supple. HEART: Regular rate. LUNGS: Show diminished breath sounds at the base. ABDOMEN: Soft, nontender to palpation without rebound or guarding. EXTREMITIES: Negative for clubbing, cyanosis. Positive edema. DERMATOLOGIC: No rashes. MUSCULOSKELETAL: No joint effusions. NEUROLOGIC: No change in exam. MEDICATIONS: The patient's medications have been reviewed. LABORATORY DATA: Shows a sodium 141, potassium 5.1, chloride 107, BUN 71, creatinine 2.87. White c ount 2.9, hemoglobin 8.1, hematocrit 23.5, platelet count is 53. ASSESSMENT AND PLAN: 1. Nonoliguric acute kidney injury on top of chronic kidney disease stage IV, etiology secondary to acute tubular necrosis. Patient is status post hemodialysis. Renal function appears to have stabi lized. We will continue current treatment plan, supportive care, renally dose all meds. 2. Volume overload. Continue to monitor renal function, continue low dose diuretic therapy. 3. Mild hyperkalemia secondary to chronic kidney disease improved. Continue low-potassium diet. 4. Hypertension. Continue current blood pressure regimen. 5. Anemia of chronic disease. Continue to monitor hemoglobin and hematocrit levels. 6. Conjunctivitis. Continue current antibiotic regimen. 7. Diabetes. Continue Accu-Cheks, insulin sliding scale. 8. Benign prostatic hypertrophy. Continue medical management. 9. Mineral bone disorder. Continue to monitor calcium and phosphorus levels. 10. History of hepatitis C. 11. Status post urinary tract infection. 12. Pancytopenia. Continue to monitor. Consider hematology evaluation. Dictated By: NAE SINHA/ERICKA Conf#: [id number] DID#: [id number]
[2016-10-06] MEDS ORDERED: PSYLLIUM (SUGAR FREE) PACKET PO SCH (12:00)
--- NOTE | 2016-10-06 13:08 | PN ---
Date/Time of Note Date/Time of Note DATE: 10/06/16 TIME: 13:02 Assessment/Plan VTE Prophylaxis VTE Prophylaxis Intervention: heparin Lines/Catheters IV Catheter Type (from Nrsg): PICC Line Central line still needed: Yes Urinary Cath still in place: No Assessment/Plan Assessment/Plan 1. VRE conjunctivitis, on vegamox 2. Acute renal failure from ATN, improved with stable Cr after stopped HD 3. DM, stable 4. Anemia of chronic disease. stable 5. Benign prostatic hypertrophy. Continue medical management. 6. History of diabetic retinopathy. 7. Hepatitis C 8. Hypothyroidism, on synthroid 9. DVP prophylaxis: heparin 10. Awaiting for placement Subjective 24 Hr Interval Summary Free Text/Dictation no fever or chills. Exam/Review of Systems Vital Signs Vitals Vital Signs Date Time Temp Pulse Resp B/P Pulse Ox O2 Delivery O2 Flow Rate FiO2 10/06/16 08:00 97.8 73 15 139/85 95 10/03/16 06:35 Room Air 10/02/16 09:06 2.0 Intake and Output 10/05/16 10/05/16 10/06/16 15:00 23:00 07:00 Intake Total 400 ml 400 ml Output Total 650 ml Balance 400 ml -250 ml Exam Constitutional: alert Head: atraumatic, normocephalic Eyes: other (mild injection on right eye) ENMT: mucosa pink and moist, nl external ears & nose, nl lips & teeth, nl nasal mucosa & septum Neck: non-tender, supple Respiratory: clear to auscultation, normal air movement, No congested cough, No crackles/rales, No diminished breath sounds, No intercostal retraction, No labored breathing, No other, No respirations, No tactile fremitus, No wheezing Cardiovascular: nl pulses, regular rate and rhythm, No S3, No S4, No bruits, No diastolic murmur, No edema, No gallop, No irregular rhythm, No jugular venous distention (JVD), No murmurs/extra sounds, No other, No rub, No systolic murmur Gastrointestinal: nl liver, spleen, non-tender, soft, No ascites, No bowel sounds, No distended, No firm, No hepatomegaly, No mass , No other, No rebound or guarding, No splenomegaly, No surgical scars, No tender Musculoskeletal: nl extremities to inspection Extremities: normal pulses, No calf tenderness, No clubbing, No cyanosis, No edema, No other, No palpable cord, No pitting pedal edema, No tenderness Neurological: [employer] II-XII intact, nl mental status, nl speech, nl strength Skin: nl turgor Lymph: nl lymph nodes Results Result Diagram: 10/06/16 0420 10/06/16 0420 Results 24 hrs Laboratory Tests Test 10/05/16 17:49 10/05/16 20:47 10/06/16 04:20 10/06/16 07:59 Bedside Glucose 144 123 162 White Blood Count 2.9 #L Red Blood Count 2.59 L Hemoglobin 8.1 L Hematocrit 23.5 L Mean Corpuscular Volume 90.7 Mean Corpuscular Hemoglobin 31.3 Mean Corpuscular Hemoglobin Concent 34.5 Red Cell Distribution Width 14.5 Platelet Count 53 #L Mean Platelet Volume 10.1 Neutrophils % 54.0 Band Neutrophils % 1.0 Lymphocytes % 34.0 Monocytes % 4.0 Eosinophils % 5.0 Basophils % 2.0 Neutrophils # 1.6 Lymphocytes # 1.0 Monocytes # 0.1 L Eosinophils # 0.1 Basophils # 0.1 Differential Comment MANUAL DIFF Sodium Level 141 Potassium Level 5.1 Chloride Level 107 Carbon Dioxide Level 24 Anion Gap 15 Blood Urea Nitrogen 71 H Creatinine 2.87 H Glucose Level 154 Calcium Level 8.2 L Total Bilirubin 0.0 L Direct Bilirubin 0.00 Indirect Bilirubin 0.0 Aspartate Amino Transf (AST/SGOT) 19 Alanine Aminotransferase (ALT/SGPT) 24 Alkaline Phosphatase 58 Total Protein 6.5 Albumin 2.9 L Globulin 3.60 H Albumin/Globulin Ratio 0.80 Test 10/06/16 12:11 Bedside Glucose 135 Medications Medications Current Medications Finasteride (Proscar) 5 mg DAILY PO Last administered on 10/06/16 09:24; Admin Dose 5 MG; Start 09/02/16 at 09:00 Simethicone (Mylicon) 80 mg Q6H PRN PO DISTENSION/GAS/BLOATING Last administered on 09/17/16 21:03; Admin Dose 80 MG; Start 09/01/16 at 23:00 Ondansetron HCl (Zofran Inj) 4 mg Q6H PRN IV NAUSEA AND/OR VOMITING Last administered on 10/02/16 05:16; Admin Dose 4 MG; Start 09/01/16 at 23:30 Diagnostic Test (Pha) (Accu-Chek) 1 ea 02 XX Last administered on 09/25/16 02: 07; Admin Dose 1 EA; Start 09/02/16 at 02:00 Isosorbide Dinitrate (Isordil) 20 mg TID PO Last administered on 10/06/16 12: 12; Admin Dose 20 MG; Start 09/01/16 at 23:00 Miscellaneous Information 1 ea NOTE XX ; Start 09/01/16 at 23:30 Glucose (Glutose) 15 gm Q15M PRN PO DECREASED GLUCOSE; Start 09/01/16 at 23:30 Glucose (Glutose) 22.5 gm Q15M PRN PO DECREASED GLUCOSE; Start 09/01/16 at 23: 30 Dextrose (D50w Syringe) 25 ml Q15M PRN IV DECREASED GLUCOSE; Start 09/01/16 at 23:30 Dextrose (D50w Syringe) 50 ml Q15M PRN IV DECREASED GLUCOSE; Start 09/01/16 at 23:30 Glucagon (Glucagen) 1 mg Q15M PRN IM DECREASED GLUCOSE; Start 09/01/16 at 23:30 Glucose (Glutose) 15 gm Q15M PRN BUCCAL DECREASED GLUCOSE; Start 09/01/16 at 23 :30 Levothyroxine Sodium (Synthroid) 75 mcg DAILY@06 PO Last administered on 05:52; Admin Dose 75 MCG; Start 09/08/16 at 06:00 Cholecalciferol (Vitamin D) 1,000 unit DAILY PO Last administered on 10/06/16 09:25; Admin Dose 1,000 UNIT; Start 09/07/16 at 12:30 Lactobacillus Acidophilus (Florajen3 Capsule) 1 each BID PO Last administered on 10/06/16 09:23; Admin Dose 1 EACH; Start 09/09/16 at 21:00 Lactulose (Enulose) 30 gm BID PRN PO CONSTIPATION; Start 09/16/16 at 11:30 Moxifloxacin HCl (Vigamox) 1 drop TID BOTH EYES Last administered on 10/06/16 12:13; Admin Dose 1 DROP; Start 09/18/16 at 21:30 Hydralazine HCl (Apresoline) 10 mg Q4H PRN IV ELEVATED SYSTOLIC BP Last administered on 09/29/16 05:03; Admin Dose 10 MG; Start 09/19/16 at 01:00 Furosemide (Lasix) 40 mg DAILY PO Last administered on 10/06/16 09:24; Admin Dose 40 MG; Start 09/20/16 at 09:00; Status Future hold Nifedipine (Procardia Xl) 60 mg BID PO Last administered on 10/06/16 09:24; Admin Dose 60 MG; Start 09/24/16 at 09:00 Levofloxacin (Levaquin) 250 mg DAILY@06 PO Last administered on 10/06/16 05:52 ; Admin Dose 250 MG; Start 09/27/16 at 06:00 Doxazosin Mesylate (Cardura) 8 mg HS PO Last administered on 10/05/16 20:54; Admin Dose 8 MG; Start 09/27/16 at 21:00 Hydralazine HCl (Apresoline) 50 mg TID PO Last administered on 10/06/16 12:12 ; Admin Dose 50 MG; Start 09/28/16 at 13:00 Lorazepam (Ativan) 1 mg Q12H PRN IV Anxiety Last administered on 10/01/16 23: 06; Admin Dose 1 MG; Start 09/29/16 at 09:42 Morphine Sulfate (morphine) 2 mg Q4H PRN IV PAIN LEVEL 6-10 Last administered on 10/06/16 10:10; Admin Dose 2 MG; Start 09/29/16 at 11:30 Pantoprazole (Protonix Tab) 40 mg BID@06,18 PO Last administered on 10/06/16 05:52; Admin Dose 40 MG; Start 09/29/16 at 18:00 Aspirin (Aspirin) 81 mg DAILY PO Last administered on 10/02/16 08:29; Admin Dose 81 MG; Start 09/30/16 at 09:00; Status Future hold Oxycodone/ Acetaminophen (Percocet (5/ 325)) 1 tab Q4H PRN PO PAIN LEVEL 1-5; Start 09/30/16 at 13:30 Mirtazapine (Remeron) 30 mg HS PO ; Start 10/06/16 at 21:00 Psyllium Hydrophilic Mucilloid (Metamucil (Sugar Free)) 1 pkt DAILY PO ; Start 10/06/16 at 12:00 BETTIE PLASENCIA MD October 06, 2016 13:08
--- NOTE | 2016-10-06 13:54 | CONS ---
Date/Time of Note Date/Time of Note DATE: 10/06/16 TIME: 13:53 Assessment/Plan Assessment/Plan Chief Complaint/Hosp Course SUBJECTIVE: No events overnight. Awake, looks comfortable. No fevers. ANTIMICROBIALS: 2. Vigamox eyedrops. 3. Levaquin qod PHYSICAL EXAMINATION: GENERAL: Chronically ill-appearing, middle-aged man who is in no distress. HEENT: Head atraumatic, normocephalic. Right eye still with some redness but no drainage. Buccal mucosa dry. NECK: Supple. CHEST: Rise symmetrical. Breath sounds clear, diminished to bases. HEART: S1, S2. ABDOMEN: Soft, bowel tones present. EXTREMITIES: Without cyanosis. ASSESSMENT: 1. Right conjunctivitis. Drainage of the eye grew VRE and corynebacterium group JK==> improved. 3. Status post urinary tract infection. 4. History of spinal abscess diskitis, status post surgical intervention, completed long-term antibiotics. 5. Acute on chronic kidney disease status post hemodialysis. 6. L otomastoiditis 7. Pancytopenia PLAN: Stable, continue Levaquin for 4 more days, continue probiotics, f/u nephrology rec-s, ?hematology eval for persistent pancytopenia. DW staff Problems: Consultation Date/Type/Reason Admit Date/Time Sep 01, 2016 at 17:29 Type of Consultation: ID Exam/Review of Systems Vital Signs Vitals Vital Signs Date Time Temp Pulse Resp B/P Pulse Ox O2 Delivery O2 Flow Rate FiO2 10/06/16 08:00 97.8 73 15 139/85 95 10/03/16 06:35 Room Air 10/02/16 09:06 2.0 Intake and Output 10/05/16 10/05/16 10/06/16 15:00 23:00 07:00 Intake Total 400 ml 400 ml Output Total 650 ml Balance 400 ml -250 ml Results Result Diagram: 10/06/16 0420 10/06/16 0420 Results 24 hrs Laboratory Tests Test 10/05/16 17:49 10/05/16 20:47 10/06/16 04:20 10/06/16 07:59 Bedside Glucose 144 123 162 White Blood Count 2.9 #L Red Blood Count 2.59 L Hemoglobin 8.1 L Hematocrit 23.5 L Mean Corpuscular Volume 90.7 Mean Corpuscular Hemoglobin 31.3 Mean Corpuscular Hemoglobin Concent 34.5 Red Cell Distribution Width 14.5 Platelet Count 53 #L Mean Platelet Volume 10.1 Neutrophils % 54.0 Band Neutrophils % 1.0 Lymphocytes % 34.0 Monocytes % 4.0 Eosinophils % 5.0 Basophils % 2.0 Neutrophils # 1.6 Lymphocytes # 1.0 Monocytes # 0.1 L Eosinophils # 0.1 Basophils # 0.1 Differential Comment MANUAL DIFF Sodium Level 141 Potassium Level 5.1 Chloride Level 107 Carbon Dioxide Level 24 Anion Gap 15 Blood Urea Nitrogen 71 H Creatinine 2.87 H Glucose Level 154 Calcium Level 8.2 L Total Bilirubin 0.0 L Direct Bilirubin 0.00 Indirect Bilirubin 0.0 Aspartate Amino Transf (AST/SGOT) 19 Alanine Aminotransferase (ALT/SGPT) 24 Alkaline Phosphatase 58 Total Protein 6.5 Albumin 2.9 L Globulin 3.60 H Albumin/Globulin Ratio 0.80 Test 10/06/16 12:11 Bedside Glucose 135 Medications Medications Current Medications Finasteride (Proscar) 5 mg DAILY PO Last administered on 10/06/16 09:24; Admin Dose 5 MG; Start 09/02/16 at 09:00 Simethicone (Mylicon) 80 mg Q6H PRN PO DISTENSION/GAS/BLOATING Last administered on 09/17/16 21:03; Admin Dose 80 MG; Start 09/01/16 at 23:00 Ondansetron HCl (Zofran Inj) 4 mg Q6H PRN IV NAUSEA AND/OR VOMITING Last administered on 10/02/16 05:16; Admin Dose 4 MG; Start 09/01/16 at 23:30 Diagnostic Test (Pha) (Accu-Chek) 1 ea 02 XX Last administered on 09/25/16 02: 07; Admin Dose 1 EA; Start 09/02/16 at 02:00 Isosorbide Dinitrate (Isordil) 20 mg TID PO Last administered on 10/06/16 12: 12; Admin Dose 20 MG; Start 09/01/16 at 23:00 Miscellaneous Information 1 ea NOTE XX ; Start 09/01/16 at 23:30 Glucose (Glutose) 15 gm Q15M PRN PO DECREASED GLUCOSE; Start 09/01/16 at 23:30 Glucose (Glutose) 22.5 gm Q15M PRN PO DECREASED GLUCOSE; Start 09/01/16 at 23: 30 Dextrose (D50w Syringe) 25 ml Q15M PRN IV DECREASED GLUCOSE; Start 09/01/16 at 23:30 Dextrose (D50w Syringe) 50 ml Q15M PRN IV DECREASED GLUCOSE; Start 09/01/16 at 23:30 Glucagon (Glucagen) 1 mg Q15M PRN IM DECREASED GLUCOSE; Start 09/01/16 at 23:30 Glucose (Glutose) 15 gm Q15M PRN BUCCAL DECREASED GLUCOSE; Start 09/01/16 at 23 :30 Levothyroxine Sodium (Synthroid) 75 mcg DAILY@06 PO Last administered on 05:52; Admin Dose 75 MCG; Start 09/08/16 at 06:00 Cholecalciferol (Vitamin D) 1,000 unit DAILY PO Last administered on 10/06/16 09:25; Admin Dose 1,000 UNIT; Start 09/07/16 at 12:30 Lactobacillus Acidophilus (Florajen3 Capsule) 1 each BID PO Last administered on 10/06/16 09:23; Admin Dose 1 EACH; Start 09/09/16 at 21:00 Lactulose (Enulose) 30 gm BID PRN PO CONSTIPATION; Start 09/16/16 at 11:30 Moxifloxacin HCl (Vigamox) 1 drop TID BOTH EYES Last administered on 10/06/16 12:13; Admin Dose 1 DROP; Start 09/18/16 at 21:30 Hydralazine HCl (Apresoline) 10 mg Q4H PRN IV ELEVATED SYSTOLIC BP Last administered on 09/29/16 05:03; Admin Dose 10 MG; Start 09/19/16 at 01:00 Furosemide (Lasix) 40 mg DAILY PO Last administered on 10/06/16 09:24; Admin Dose 40 MG; Start 09/20/16 at 09:00; Status Future hold Nifedipine (Procardia Xl) 60 mg BID PO Last administered on 10/06/16 09:24; Admin Dose 60 MG; Start 09/24/16 at 09:00 Levofloxacin (Levaquin) 250 mg DAILY@06 PO Last administered on 10/06/16 05:52 ; Admin Dose 250 MG; Start 09/27/16 at 06:00 Doxazosin Mesylate (Cardura) 8 mg HS PO Last administered on 10/05/16 20:54; Admin Dose 8 MG; Start 09/27/16 at 21:00 Hydralazine HCl (Apresoline) 50 mg TID PO Last administered on 10/06/16 12:12 ; Admin Dose 50 MG; Start 09/28/16 at 13:00 Lorazepam (Ativan) 1 mg Q12H PRN IV Anxiety Last administered on 10/01/16 23: 06; Admin Dose 1 MG; Start 09/29/16 at 09:42 Morphine Sulfate (morphine) 2 mg Q4H PRN IV PAIN LEVEL 6-10 Last administered on 10/06/16 10:10; Admin Dose 2 MG; Start 09/29/16 at 11:30 Pantoprazole (Protonix Tab) 40 mg BID@,18 PO Last administered on 10/06/16 05:52; Admin Dose 40 MG; Start 09/29/16 at 18:00 Aspirin (Aspirin) 81 mg DAILY PO Last administered on 10/02/16 08:29; Admin Dose 81 MG; Start 09/30/16 at 09:00; Status Future hold Oxycodone/ Acetaminophen (Percocet (5/ 325)) 1 tab Q4H PRN PO PAIN LEVEL 1-5; Start 09/30/16 at 13:30 Mirtazapine (Remeron) 30 mg HS PO ; Start 10/06/16 at 21:00 Psyllium Hydrophilic Mucilloid (Metamucil (Sugar Free)) 1 pkt DAILY PO ; Start 10/06/16 at 12:00 DORENE GARCIA NP October 06, 2016 13:53
--- NOTE | 2016-10-06 15:22 | DS ---
Date/Time of Note Date/Time of Note DATE: 10/06/16 TIME: 15:20 Discharge Summary Admission/Discharge Info Admit Date/Time Sep 01, 2016 at 17:29 Discharge Date/Time Final Diagnosis 1. VRE conjunctivitis, treated and on vegamox/cortisporin for two weeks 2. Acute renal failure from ATN, improved with stable Cr after stopped HD, follow up with PCP 3. DM, stable 4. Anemia of chronic disease. stable 5. Benign prostatic hypertrophy. stable. 6. History of diabetic retinopathy. 7. Hepatitis C 8. Hypothyroidism, on synthroid Patient Condition: Stable Hospital Course This is a 56-year-old gentleman originally admitted with atypical chest pain, ruled out for acute coronary syndrome by enzymes, EKG, symptoms. An echo done prior to admission at [facility] was okay. He has been optimized medically with aspirin and risk factor modification. Due to nausea, I would not add a statin at this time. He needs advanced care planning and reevaluated. Likely his anasarca was an issue for chest pain. The patient had anasarca with renal failure. The patient did require dialysis. Dialysis was done for about 2 weeks. Presently, his creatinine is stable on its own. Dialysis catheter has been removed. Additionally has hepatitis C. He is on Lasix and will need to follow up with nephrology. I would avoid PICC lines in nondominant hand. In terms of his ileus, possibly related to anasarca. This is stable and resolved. The patient states of having nausea, I am not sure if this is anxiety related. In case there is any severe gastritis, I have placed the patient on a proton pump inhibitor maybe for 6 weeks. The nausea might be antibiotic-related. Diabetes, metabolic syndrome. Continue risk factor modification. Chronic osteomyelitis with history of laminectomy. The patient was seen by neurosurgery. His wound has been stabilized. He has finished those antibiotics for what I believe MRSA wound infection. He has been cleared to ambulate. Actually, the patient is ambulating remarkably well and improved. History of soleus muscle abscess. Chronic COPD. Chronic hypothyroidism. Medication is now 75 mcg daily. Chronic BPH. Failure to thrive. Discharge to SNF for ADL assistance. Left otomastoiditis, stable. Acute cystitis, finished therapy. Chronic pancytopenia, bone marrow suppression due to hepatitis C. Continue surveillance. No evidence of acute liver failure. Acute right eye conjunctivitis with VRE and JK virus. The patient has finished linezolid and Vigamox Onychomycosis. Past alcoholism. Home Meds Active Scripts Isosorbide Dinitrate* (Isosorbide Dinitrate*) 20 Mg Tablet, 20 MG PO TID for 30 Days, TAB Prov:RAMON PUENTES M. 08/13/16 Levothyroxine Sodium* (Synthroid*) 50 Mcg Tablet, 50 MCG PO DAILY@06 for 30 Days , TAB Prov:DHAVALDEANNA SarmientoO M. 08/13/16 Minoxidil* (Lonitin*) 2.5 Mg Tab, 5 MG PO BID for 30 Days, TAB Prov:DHAVALDEANNAO M. 08/13/16 Lactobacillus Acidoph/Bulgaricus* (Floranex*) 1 Each Tablet, 1 TAB PO TID for 30 Days, TAB 4 Refills Prov:RAHIPHANI S. 07/22/16 Ferrous Sulfate* (Ferrous Sulfate*) 325 Mg Tabec, 325 MG PO BID, #60 TAB 2 Refills Prov:RAHIPHANI S. 07/22/16 Carvedilol* (Carvedilol*) 6.25 Mg Tablet, 6.25 MG PO BID, #60 TAB 2 Refills Prov:RAHIPHANI S. 07/22/16 Reported Medications Oxycodone HCl/Acetaminophen (Percocet 5-325 mg Tablet) 1 Each Tablet, 1 EACH PO Q4 Y for PAIN, TAB 09/01/16 Simethicone* (Anti-Gas/80*) 80 Mg Tab.chew, 80 MG PO Q6H Y for DISTENSION/GAS/ BLOATING, TAB.CHEW 09/01/16 Insulin Aspart* (Novolog Insulin Pen*) 100 Unit/Ml Soln, 0 SC .SLIDING SCALE AC , EA 09/01/16 Zolpidem Tartrate* (Zolpidem Tartrate*) 10 Mg Tablet, 10 MG PO QHS Y for INSOMNIA, #30 TAB 09/01/16 Ergocalciferol (Vitamin D2) (VITAMIN D2) 50,000 Unit Capsule, 56830 UNIT PO ONCE , CAP every thursday07/10/16 Finasteride* (Finasteride*) 5 Mg Tablet, 5 MG PO DAILY, TAB 07/10/16 Tamsulosin Hcl* (Tamsulosin Hcl*) 0.4 Mg Cap.er.24h, 0.4 MG PO DAILY, CAP 07/10/16 Bumetanide* (Bumetanide*) 1 Mg Tablet, 1 MG PO DAILY, TAB 07/10/16 Follow-up Plan PCP in one week ophthalmology in 1 week Primary Care Provider Not On Staff Doctor Pending Labs Laboratory Tests Test 10/05/16 17:49 10/05/16 20:47 10/06/16 04:20 10/06/16 07:59 Bedside Glucose 144mg/dL (70-220) 123mg/dL (70-220) 162mg/dL (70-220) White Blood Count 2.910^3/ul (4.8-10.8) Red Blood Count 2.5910^6/ul (4.70-6.10) Hemoglobin 8.1g/dl (14.0-18.0) Hematocrit 23.5% (42.0-52.0) Mean Corpuscular Volume 90.7fl (82.0-101.0) Mean Corpuscular Hemoglobin 31.3pg (29.0-33.0) Mean Corpuscular Hemoglobin Concent 34.5g/dl (32.0-37.0) Red Cell Distribution Width 14.5% (11.5-14.5) Platelet Count 5310^3/UL (140-415) Mean Platelet Volume 10.1fl (7.4-10.4) Neutrophils % 54.0% (39.0-77.0) Band Neutrophils % 1.0% (0.0-5.0) Lymphocytes % 34.0% (15.0-51.0) Monocytes % 4.0% (0.0-11.0) Eosinophils % 5.0% (0.0-7.0) Basophils % 2.0% (0.0-2.0) Neutrophils # 1.610^3/ul (1.6-7.5) Lymphocytes # 1.010^3/ul (0.8-2.9) Monocytes # 0.110^3/ul (0.3-0.9) Eosinophils # 0.110^3/ul (0.0-0.5) Basophils # 0.110^3/ul (0.0-0.1) Differential Comment MANUAL DIFF Sodium Level 141mmol/L (135-144) Potassium Level 5.1mmol/L (3.5-5.1) Chloride Level 107mmol/L (97-110) Carbon Dioxide Level 24mmol/L (21-31) Anion Gap 15 (8-16) Blood Urea Nitrogen 71mg/dl (7-20) Creatinine 2.87mg/dl (0.61-1.24) Glucose Level 154mg/dl (70-220) Calcium Level 8.2mg/dl (8.4-10.2) Total Bilirubin 0.0mg/dl (0.2-1.3) Direct Bilirubin 0.00mg/dl (0.00-0.20) Indirect Bilirubin 0.0mg/dl (0-1.1) Aspartate Amino Transf (AST/SGOT) 19IU/L (15-46) Alanine Aminotransferase (ALT/SGPT) 24IU/L (13-69) Alkaline Phosphatase 58IU/L (42-121) Total Protein 6.5g/dl (6.1-8.1) Albumin 2.9g/dl (3.3-4.9) Globulin 3.60g/dl (1.3-3.2) Albumin/Globulin Ratio 0.80 Test 10/06/16 12:11 Bedside Glucose 135mg/dL (70-220) BETTIE PLASENCIA MD October 06, 2016 15:22
[2016-10-06] MEDS ORDERED: MIRTAZAPINE 15 MG TAB PO SCH (21:00)
== END 2016-10-06 18:18 | disposition home or self-care (01) | DRG 291 ==
LOC: PP2 17:29
PROVIDERS: ADMIT Internal Medicine; ATTEND Internal Medicine
PROC: 02H633Z Insertion of Infusion Device into Right Atrium, Percutaneous Approach (ICD-10-PCS; principal; 2016-09-04)
PROC: 5A1D60Z (ICD-10-PCS; 2016-09-04)
PROC: 0JH63XZ Insertion of Tunneled Vascular Access Device into Chest Subcutaneous Tissue and Fascia, Percutaneous Approach (ICD-10-PCS; 2016-09-09)
PROC: 02H633Z Insertion of Infusion Device into Right Atrium, Percutaneous Approach (ICD-10-PCS; 2016-09-09)
PROC: 02PAX3Z Removal of Infusion Device from Heart, External Approach (ICD-10-PCS; 2016-09-17)
DX: I13.0 Hypertensive heart and chronic kidney disease with heart failure and stage 1 through stage 4 chronic kidney disease, or unspecified chronic kidney disease (principal); N17.0 Acute kidney failure with tubular necrosis; J96.20 Acute and chronic respiratory failure, unspecified whether with hypoxia or hypercapnia; D61.818 Other pancytopenia; E11.22 Type 2 diabetes mellitus with diabetic chronic kidney disease; N18.4 Chronic kidney disease, stage 4 (severe); E88.81 Metabolic syndrome and other insulin resistance; M86.68 Other chronic osteomyelitis, other site; K56.7 Ileus, unspecified; N30.00 Acute cystitis without hematuria; B37.49 Other urogenital candidiasis; I50.9 Heart failure, unspecified; R07.89 Other chest pain; D63.8 Anemia in other chronic diseases classified elsewhere; B19.20 Unspecified viral hepatitis C without hepatic coma; N40.0 Benign prostatic hyperplasia without lower urinary tract symptoms; E11.319 Type 2 diabetes mellitus with unspecified diabetic retinopathy without macular edema; Z79.4 Long term (current) use of insulin; E03.9 Hypothyroidism, unspecified; B99.8 Other infectious disease; H10.89 Other conjunctivitis; Z16.21 Resistance to vancomycin; R11.0 Nausea; R60.1 Generalized edema; J44.9 Chronic obstructive pulmonary disease, unspecified; B35.1 Tinea unguium; F10.21 Alcohol dependence, in remission; E83.42 Hypomagnesemia; H60.92 Unspecified otitis externa, left ear; B96.89 Other specified bacterial agents as the cause of diseases classified elsewhere; H70.92 Unspecified mastoiditis, left ear
CPT/HCPCS: 36556; 36558; 36589; 70450; 70486; 71010; 73700; 74000; 74176; 76775; 76942; 80048; 80053; 80061; 80202; 81001; 81003; 82043; 82306; 82962; 83036; 83690; 83735; 83935; 84100; 84155; 84300; 84443; 84484; 85025; 85610; 85651; 85730; 86592; 86704; 86709; 86803; 87070; 87075; 87086; 87340; 90935; 93005; 93970; 97110; 97116; 97162; 97530; J1940; C1752; J0360; J0690; J0692; J0885; J0886; J1644; J1815; J2060; J2250; J2270; J2405; J3010; J3370; J7030; J7040; J7042; J7050; P9047

== ENCOUNTER 2016-10-15 02:13 | Inpatient (IN) | payer OTHER ==
[~2016-10-15] VITALS: Ht 165.1 cm; Wt 68.7 kg
[2016-10-15] VITALS (7 sets, daily range): BP systolic 113–171; BP diastolic 65–94; PULSE 62–67; RESP 16–18; Ht 165.1 cm; Wt 68.7 kg
[~2016-10-15 02:13] MED LIST changes: -CIPR-193 PO; -HYDR-3672 PO; -MYL80 GTB; -NIFEdipine (XL) PO; +NOVO3I SC; -NPH10OT BOTH EARS; +OXYC-279 PO; -PANT40TA3 PO; +SIME80TA PO; -VANC500F2 IV; -Vancomycin Iv Per Pharmacy XX; +ZOLP10TA5 PO
[2016-10-15] MEDS ORDERED: GLUCOSE GEL 15 GRAM TUBE PO PRN ×2 (03:45)
[2016-10-15] MEDS ORDERED: DEXTROSE 50% 50 ML SYRINGE IV PRN (03:45)
[2016-10-15] MEDS ORDERED: GLUCAGON 1 MG INJ IM PRN (03:45)
[2016-10-15] MEDS ORDERED: VANCOMYCIN IV PER PHARMACY XX SCH (04:00)
[2016-10-15] MEDS: CEFEPIME 1GM/50 ML (PMX) 50 ML IVPB SCH ×4 (04:20→20:44)
[2016-10-15] MEDS: morphine 4 MG/ML VIAL IV PRN ×4 (04:24→17:40)
[2016-10-15] MEDS: HYDROCODONE/APAP (10/325) TAB PO PRN (04:24)
[2016-10-15] MEDS ORDERED: VANCOMYCIN 1.25 GM in SOD CHLORIDE 0.9% 250 ML IVPB ONE (05:00)
[2016-10-15] MEDS: hydrALAzine 20 MG INJ IV PRN ×2 (05:02→17:41)
[2016-10-15] MEDS: ONDANSETRON 4 MG INJ IV PRN ×3 (05:03→15:18)
[2016-10-15 06:08] LABS: ADD SCAN DIFF NO
[2016-10-15 06:10] LABS: BASOPHILS % 0.3 % (0.0-2.0); EOSINOPHILS # 0.2 10^3/ul (0.0-0.5); EOSINOPHILS % 4.9 % (0.0-7.0); HEMATOCRIT 25.6 % (42.0-52.0); HEMOGLOBIN 8.5 g/dl (14.0-18.0); LYMPHOCYTES % 29.1 % (15.0-51.0); MEAN CORPUSCULAR HEMOGLOBIN 29.8 pg (29.0-33.0); MEAN CORPUSCULAR HGB CONC 33.2 g/dl (32.0-37.0); MEAN CORPUSCULAR VOLUME 89.8 fl (82.0-101.0); MEAN PLATELET VOLUME 9.1 fl (7.4-10.4); MONOCYTE # 0.3 10^3/ul (0.3-0.9); MONOCYTES % 7.6 % (0.0-11.0); NEUTROPHILS % 57.8 % (39.0-77.0); PLATELET COUNT 118 10^3/UL (140-415); RED BLOOD COUNT 2.85 10^6/ul (4.70-6.10); RED CELL DISTRIBUTION WIDTH 15.7 % (11.5-14.5); WHITE BLOOD COUNT 3.4 10^3/ul (4.8-10.8)
[2016-10-15] MEDS: LEVOTHYROXINE 75 MCG TAB PO SCH (06:17)
[2016-10-15] MEDS: NEOMYC/POLYMYX/HC 7.5 ML OPH LEFT EYE SCH ×4 (06:21→23:54)
[2016-10-15 06:56] LABS: ALBUMIN 2.8 g/dl (3.3-4.9); ALBUMIN/GLOBULIN RATIO 0.77; CALCIUM 7.6 mg/dl (8.4-10.2); CREATININE 1.92 mg/dl (0.61-1.24); MAGNESIUM 2.2 mg/dl (1.7-2.5); PHOSPHORUS 4.6 mg/dl (2.5-4.9); POTASSIUM 5.1 mmol/L (3.5-5.1); TOTAL PROTEIN 6.4 g/dl (6.1-8.1)
[2016-10-15] MEDS ORDERED: INSULIN GLARGINE [LANtus] 3 ML PEN SC SCH (08:00)
[2016-10-15] MEDS: INSULIN ASPART [NOVOLOG] 3 ML PEN SC SCH ×7 (08:15→20:46)
[2016-10-15] MEDS: CIPROFLOXACIN 0.3% 2.5 ML OPH BOTH EYES SCH ×3 (08:25→20:43)
[2016-10-15] MEDS: NIFEdipine (XL) 60 MG TAB PO SCH ×2 (08:34→20:45)
[2016-10-15] MEDS ORDERED: SOD CHLORIDE 0.45% 1,000 ML IV SCH (11:30)
[2016-10-15] MEDS: GLUCOSE GEL 15 GRAM TUBE BUCCAL PRN ×2 (12:23→19:46)
[2016-10-15] MEDS: DEXTROSE 50% 50 ML SYRINGE IV PRN ×3 (12:55→22:16)
--- NOTE | 2016-10-15 14:03 | CONS ---
Date/Time of Note Date/Time of Note DATE: 10/15/16 TIME: 14:00 Assessment/Plan Assessment/Plan Chief Complaint/Hosp Course SUBJECTIVE: Awake, looks comfortable. No fevers. ANTIMICROBIALS: Vanco, Cefepime PHYSICAL EXAMINATION: GENERAL: Chronically ill-appearing, middle-aged man who is awake, in no distress. HEENT: Head atraumatic, normocephalic. Buccal mucosa dry. NECK: Supple. CHEST: Rise symmetrical. Breath sounds clear, diminished to bases. HEART: S1, S2. ABDOMEN: Soft, bowel tones present. EXTREMITIES: Without cyanosis. ASSESSMENT: 1. Recurrent UTI 2. S/p VRE right conjunctivitis. 3. CKD==> Hx HD 4. History of spinal abscess diskitis, status post surgical intervention, completed long-term antibiotics. 5 . Hx L otomastoiditis 7. Pancytopenia PLAN: Stable, continue abx, f/u cx's DW pt/staff Problems: Consultation Date/Type/Reason Admit Date/Time October 15, 2016 at 02:37 Initial Consult Date Type of Consultation: ID Exam/Review of Systems Vital Signs Vitals Vital Signs Date Time Temp Pulse Resp B/P Pulse Ox O2 Delivery O2 Flow Rate FiO2 10/15/16 08:33 97.3 67 16 155/94 96 Intake and Output 10/14/16 10/14/16 10/15/16 15:00 23:00 07:00 Output Total 300 ml Balance -300 ml Results Result Diagram: 10/15/16 0540 10/15/16 0540 Results 24 hrs Laboratory Tests Test 10/15/16 05:40 10/15/16 07:59 10/15/16 12:12 10/15/16 12:42 White Blood Count 3.4 L Red Blood Count 2.85 L Hemoglobin 8.5 L Hematocrit 25.6 L Mean Corpuscular Volume 89.8 Mean Corpuscular Hemoglobin 29.8 Mean Corpuscular Hemoglobin Concent 33.2 Red Cell Distribution Width 15.7 H Platelet Count 118 #L Mean Platelet Volume 9.1 Neutrophils % 57.8 Lymphocytes % 29.1 Monocytes % 7.6 Eosinophils % 4.9 Basophils % 0.3 Nucleated Red Blood Cells % 0.0 Neutrophils # 2.0 Lymphocytes # 1.0 Monocytes # 0.3 Eosinophils # 0.2 Basophils # 0.0 Nucleated Red Blood Cells # 0.0 Sodium Level 140 Potassium Level 5.1 Chloride Level 116 H Carbon Dioxide Level 22 Anion Gap 7 L Blood Urea Nitrogen 44 H Creatinine 1.92 H Glucose Level 146 Calcium Level 7.6 L Phosphorus Level 4.6 Magnesium Level 2.2 Total Bilirubin 0.0 L Direct Bilirubin 0.00 Indirect Bilirubin 0.0 Aspartate Amino Transf (AST/SGOT) 210 H Alanine Aminotransferase (ALT/SGPT) 321 H Alkaline Phosphatase 121 Total Protein 6.4 Albumin 2.8 L Globulin 3.60 H Albumin/Globulin Ratio 0.77 Bedside Glucose 137 50 L 44 *L Test 10/15/16 12:46 10/15/16 13:11 10/15/16 13:30 Bedside Glucose 44 *L 89 81 Medications Medications Current Medications Neomycin/ Polymyxin/ Hydrocortisone (Cortisporin Oph Perri) 1 drop Q6H LEFT EYE Last administered on 10/15/16 13:38; Admin Dose 1 DROP; Start 10/15/16 at 06:00 ; Stop 10/18/16 at 07:00 Ciprofloxacin HCl (Ciloxan 0.3% Oph) 1 drop TID BOTH EYES Last administered on 10/15/16 13:37; Admin Dose 1 DROP; Start 10/15/16 at 09:00; Stop 10/17/16 at 22 :00 Hydralazine HCl (Apresoline) 50 mg TID PO Last administered on 10/15/16 13:40 ; Admin Dose 50 MG; Start 10/15/16 at 09:00 Levothyroxine Sodium (Synthroid) 75 mcg DAILY@06 PO Last administered on 06:17; Admin Dose 75 MCG; Start 10/15/16 at 06:00 Insulin Glargine (Lantus) 12 unit DAILY@08 SC Last administered on 10/15/16 08 :30; Admin Dose 12 UNIT; Start 10/15/16 at 08:00 Morphine Sulfate (morphine) 4 mg Q4H PRN IV PAIN Last administered on 13:09; Admin Dose 4 MG; Start 10/15/16 at 03:30 Acetaminophen/ Hydrocodone Bitart (Republic (10/325)) 1 tab Q4H PRN PO PAIN Last administered on 10/15/16 04:24; Admin Dose 1 TAB; Start 10/15/16 at 03:30 Diagnostic Test (Pha) (Accu-Chek) 1 ea 02 XX ; Start 10/16/16 at 02:00 Nifedipine (Procardia Xl) 60 mg BID PO Last administered on 10/15/16 08:34; Admin Dose 60 MG; Start 10/15/16 at 09:00 Miscellaneous Information 1 ea NOTE XX ; Start 10/15/16 at 03:45 Glucose (Glutose) 15 gm Q15M PRN PO DECREASED GLUCOSE; Start 10/15/16 at 03:45 Glucose (Glutose) 22.5 gm Q15M PRN PO DECREASED GLUCOSE Last administered on 12:16; Admin Dose 22.5 GM; Start 10/15/16 at 03:45 Dextrose (D50w Syringe) 25 ml Q15M PRN IV DECREASED GLUCOSE; Start 10/15/16 at 03:45 Dextrose (D50w Syringe) 50 ml Q15M PRN IV DECREASED GLUCOSE Last administered on 10/15/16 12:55; Admin Dose 50 ML; Start 10/15/16 at 03:45 Glucagon (Glucagen) 1 mg Q15M PRN IM DECREASED GLUCOSE; Start 10/15/16 at 03:45 Glucose 15 gm 15 gm Q15M PRN BUCCAL DECREASED GLUCOSE Last administered on 10/15 12:23; Admin Dose 15 GM; Start 10/15/16 at 03:45 Cefepime HCl (Maxipime 1gm/50 ml (Pmx)) 50 ml @ 100 mls/hr Q12 IVPB Last administered on 10/15/16 04:20; Admin Dose 100 MLS/HR; Start 10/15/16 at 04:05 Ondansetron HCl (Zofran Inj) 4 mg Q6H PRN IV NAUSEA AND/OR VOMITING Last administered on 10/15/16 08:40; Admin Dose 4 MG; Start 10/15/16 at 05:00 Hydralazine HCl 10 mg 10 mg Q4H PRN IV SBP ABOVE 160mmHg Last administered on 05:02; Admin Dose 10 MG; Start 10/15/16 at 05:00 Vancomycin HCl 100 ml @ 100 mls/hr Q48H IVPB ; Start 10/17/16 at 06:00 Sodium Chloride (1/2 NS) 1,000 ml @ 75 mls/hr [id number] IV Last administered on 10/15/16t 11:37; Admin Dose 75 MLS/HR; Start 10/15/16 at 11:30 DORENE GARCIA NP October 15, 2016 14:03
[2016-10-15] MEDS ORDERED: TRIMETHOBENZAMIDE 100 MG/ML VIAL IM PRN (15:30)
[2016-10-15 19:13] LABS: ADD UMIC YES; URINE BILIRUBIN (Dip) NEGATIVE (NEGATIVE); URINE BLOOD (Dip) 1+ (NEGATIVE); URINE COLOR LT. YELLOW (YELLOW); URINE GLUCOSE (Dip) NEGATIVE (NEGATIVE); URINE KETONES (Dip) NEGATIVE (NEGATIVE); URINE LEUKOCYTE ESTERASE (Dip) TRACE (NEGATIVE); URINE NITRITE (Dip) NEGATIVE (NEGATIVE); URINE TOTAL PROTEIN (Dip) 2+ (NEGATIVE); URINE UROBILINOGEN (Dip) 0.2 E.U./dL (0.1-1.0)
[2016-10-15 19:35] LABS: SQUAMOUS EPITHELIAL CELL,UR FEW; URINE RBCS 0-2 /HPF (0)
[2016-10-15] MEDS: ONDANSETRON INJ 8 MG in DEXTROSE 5% 50 ML IV PRN (19:37)
[2016-10-15] MEDS ORDERED: DEXTROSE 5%-0.45% NACL 1,000 ML IV SCH (21:00)
[2016-10-15] MEDS ORDERED: DEXTROSE 50% 50 ML SYRINGE IV ONE (22:30)
[2016-10-15] MEDS ORDERED: FUROSEMIDE 20 MG INJ IV ONE (22:30)
[2016-10-15] MEDS: DEXTROSE 10% 1,000 ML IV SCH (23:53)
[2016-10-16] MEDS: ACCU-CHEK XX SCH (02:00)
[2016-10-16] MEDS: morphine 4 MG/ML VIAL IV PRN ×4 (03:10→20:40)
[2016-10-16 05:40] LABS: ADD SCAN DIFF NO
--- NOTE | 2016-10-16 05:40 | HP ---
DATE OF ADMISSION: 10/15/2016 TIME SEEN: ____ CHIEF COMPLAINT: Abdominal pain. The patient is a 56-year-old male with a history of hypothyroidism, diabetic retinopathy, psoas absc ess, laminectomy, spinal osteomyelitis, hepatitis C, BPH, VRE conjunctivitis, chronic kidney disease , who was transferred from outside hospital because of insurance reasons. He was transferred to [facility] from outside hospital because of some ____. The patient currently resides at the rehab where he co mplains of abdominal pain as well as back pain. At the outside hospital, imaging shows emphysemato us pyelonephritis. He was given antibiotic and was subsequently transferred here. The patient was recently admitted here for chest pain on 09/02/2016. He ____ in the hospital ____ for a month. Dur ing hospitalization, he had dialysis for about 2 weeks. He was also found to have VRE conjunctiviti s and was treated accordingly. ____ ____ the patient was admitted here on 09/02/2016, ____ for further evaluation of his spine because o f concern for osteomyelitis as well as chest pain. Apparently it was discontinued ____dialysis ____ . The patient currently is still complaining of some abdominal pain and back pain which he said has been chronic. REVIEW OF SYSTEMS: ____ PAST MEDICAL HISTORY: As per HPI. PAST SURGICAL HISTORY: As per HPI. ALLERGIES: NO KNOWN DRUG ALLERGIES. HOME MEDICATIONS: 1. ____ 2. Coreg. 3. Imdur. 4. ____. 5. Percocet. 6. Ambien. 7. Simethicone. 8. ____ 9. Finasteride. PHYSICAL EXAMINATION: VITAL SIGNS: Labile blood pressure plan 162/94, heart rate 69, respiratory rate 16, temperature 97. 4 and oxygen saturation 95% on room air. GENERAL: The patient lying in bed in no acute distress. He is sleepy, but arousable. HEENT: No obvious head deformity. He is legally blind on the ____eye. CARDIOVASCULAR: Regular ra te and rhythm. No extra sounds. LUNGS: Clear anteriorly. ABDOMEN: Soft. There is some tenderness in the lower abdominal region bilaterally with no guarding , no rebound tenderness, no rigidity. BACK: The previous surgical site of his laminectomy is ____. The pocket infection is present. LOWER EXTREMITIES: Trace pitting edema. LABORATORY DATA: Chloride 116, BUN 44, creatinine 1.92. ____21. WBC is 3.4. Hemoglobin 8.5, plat elet count 118. IMPRESSION: 1. Pyelonephritis. 2. History of laminectomy. 3. History of spinal osteomyelitis. 4. Chronic kidney disease. 5. Diabetes. 6. Hypothyroidism. 7. 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 8. Benign prostatic hypertrophy. PLAN: The patient will be placed on antibiotic. We will follow up on the urine culture and blood c ulture results. He will be provided pain medication as needed. He will be continued with his home medications and adjust them as needed. ____ Dictated By: GIOVANNI MCFADDEN/ERICKA Conf#: [id number] DID#: [id number]
[2016-10-16 05:53] LABS: BASOPHILS % 0.7 % (0.0-2.0); EOSINOPHILS # 0.3 10^3/ul (0.0-0.5); EOSINOPHILS % 8.7 % (0.0-7.0); HEMATOCRIT 26.3 % (42.0-52.0); HEMOGLOBIN 8.6 g/dl (14.0-18.0); LYMPHOCYTES # 0.9 10^3/ul (0.8-2.9); LYMPHOCYTES % 30.1 % (15.0-51.0); MEAN CORPUSCULAR HEMOGLOBIN 29.5 pg (29.0-33.0); MEAN CORPUSCULAR HGB CONC 32.7 g/dl (32.0-37.0); MEAN CORPUSCULAR VOLUME 90.1 fl (82.0-101.0); MEAN PLATELET VOLUME 9.1 fl (7.4-10.4); MONOCYTE # 0.3 10^3/ul (0.3-0.9); MONOCYTES % 9.4 % (0.0-11.0); NEUTROPHIL # 1.5 10^3/ul (1.6-7.5); NEUTROPHILS % 51.1 % (39.0-77.0); PLATELET COUNT 135 10^3/UL (140-415); RED BLOOD COUNT 2.92 10^6/ul (4.70-6.10); RED CELL DISTRIBUTION WIDTH 15.7 % (11.5-14.5); WHITE BLOOD COUNT 2.9 10^3/ul (4.8-10.8)
[2016-10-16] MEDS: NEOMYC/POLYMYX/HC 7.5 ML OPH LEFT EYE SCH ×3 (05:54→17:45)
[2016-10-16] MEDS: LEVOTHYROXINE 75 MCG TAB PO SCH (05:54)
[2016-10-16 06:57] LABS: ALBUMIN 2.5 g/dl (3.3-4.9)
[2016-10-16 08:00] VITALS: BP 152/76; PULSE 64; RESP 18
[2016-10-16] MEDS: INSULIN ASPART [NOVOLOG] 3 ML PEN SC SCH ×4 (08:01→20:37)
[2016-10-16] MEDS: CEFEPIME 1GM/50 ML (PMX) 50 ML IVPB SCH (08:55)
[2016-10-16] MEDS: CIPROFLOXACIN 0.3% 2.5 ML OPH BOTH EYES SCH ×3 (08:55→20:35)
[2016-10-16] MEDS: NIFEdipine (XL) 60 MG TAB PO SCH ×2 (08:56→20:36)
[2016-10-16] MEDS: ONDANSETRON INJ 8 MG in DEXTROSE 5% 50 ML IV PRN (09:29)
[2016-10-16] MEDS: LORAZEPAM 2 MG INJ IV PRN (11:39)
--- NOTE | 2016-10-16 14:12 | PN ---
DATE: 10/16/2016 SUBJECTIVE: The patient is awake, sitting up in a chair, complaining of severe anxiety. No fevers. MICROBIOLOGY: Urine culture negative. ANTIMICROBIALS: He is on: 1. Vancomycin. 2. Cefepime. PHYSICAL EXAMINATION: GENERAL: Chronically ill-appearing, middle-aged man who is in no distress. HEENT: Head atraumatic, normocephalic. Sclerae anicteric. Buccal mucosa dry. NECK: Supple, trachea midline. CHEST: Rise symmetrical. Breath sounds diminished to bases. HEART: S1, S2. ABDOMEN: Soft, bowel sounds present. EXTREMITIES: Without cyanosis. SKIN: With anasarca. ASSESSMENT: 1. Evidence of pyelonephritis as per transfer note from another facility. 2. Chronic kidney disease. 3. History of vancomycin-resistant enterococcus conjunctivitis. 4. History of spinal abscess and diskitis, completed antibiotics. 5. Chronic left otomastoiditis. 6. Pancytopenia. 7. Depression. PLAN: The patient remains stable. Continue present care. Continue on current antimicrobials. Fol low final cultures. Dictated By: DORENE GARCIA [employer]ILITY WORK[employer] for PARDEEP VAZQUEZ MD NI/NTS Conf#: [id number] DID#: [id number]
[2016-10-16] MEDS: DEXTROSE 10% 1,000 ML IV SCH (18:40)
[2016-10-16] MEDS: HYDROCODONE/APAP (10/325) TAB PO PRN (18:41)
[2016-10-16 20:03] VITALS: BP 135/77; RESP 18
[2016-10-16] MEDS: SENNA TAB PO SCH (20:36)
[2016-10-16] MEDS: DOCUSATE SODIUM 100 MG CAP PO SCH (20:36)
[2016-10-16] MEDS: HEPARIN 5,000 UNIT/0.5 ML VIAL SC SCH (20:42)
[2016-10-17] MEDS: NEOMYC/POLYMYX/HC 7.5 ML OPH LEFT EYE SCH ×4 (00:44→17:28)
[2016-10-17] MEDS: ACCU-CHEK XX SCH (02:00)
[2016-10-17] MEDS: morphine 4 MG/ML VIAL IV PRN ×3 (05:11→22:10)
[2016-10-17] MEDS: PANTOPRAZOLE (EC) 40 MG TAB PO SCH (05:13)
[2016-10-17] MEDS: LEVOTHYROXINE 75 MCG TAB PO SCH (05:13)
[2016-10-17 05:38] LABS: ADD SCAN DIFF NO
[2016-10-17 05:41] LABS: BASOPHILS % 0.6 % (0.0-2.0); EOSINOPHILS # 0.2 10^3/ul (0.0-0.5); EOSINOPHILS % 7.4 % (0.0-7.0); HEMATOCRIT 26.3 % (42.0-52.0); LYMPHOCYTES # 0.8 10^3/ul (0.8-2.9); LYMPHOCYTES % 25.2 % (15.0-51.0); MEAN CORPUSCULAR HEMOGLOBIN 30.4 pg (29.0-33.0); MEAN CORPUSCULAR HGB CONC 34.2 g/dl (32.0-37.0); MEAN CORPUSCULAR VOLUME 88.9 fl (82.0-101.0); MEAN PLATELET VOLUME 9.3 fl (7.4-10.4); MONOCYTE # 0.3 10^3/ul (0.3-0.9); MONOCYTES % 10.3 % (0.0-11.0); NEUTROPHIL # 1.7 10^3/ul (1.6-7.5); NEUTROPHILS % 56.2 % (39.0-77.0); PLATELET COUNT 145 10^3/UL (140-415); RED BLOOD COUNT 2.96 10^6/ul (4.70-6.10); RED CELL DISTRIBUTION WIDTH 15.3 % (11.5-14.5); WHITE BLOOD COUNT 3.1 10^3/ul (4.8-10.8)
[2016-10-17] MEDS ORDERED: VANCOMYCIN 500MG/NS (PMX) 100 ML IVPB SCH (06:00)
[2016-10-17 06:07] LABS: CALCIUM 7.4 mg/dl (8.4-10.2); CREATININE 2.22 mg/dl (0.61-1.24); POTASSIUM 5.3 mmol/L (3.5-5.1)
[2016-10-17 06:55] LABS: ALBUMIN 2.5 g/dl (3.3-4.9)
[2016-10-17 07:33] VITALS: BP 122/71; RESP 18
--- NOTE | 2016-10-17 08:10 | PN ---
DATE: 10/16/2016 SUBJECTIVE: The patient had some hypoglycemia episodes yesterday, now sugars improved with D5 and f luids. Otherwise no acute events overnight. Still on antibiotics. OBJECTIVE VITAL SIGNS: Stable, although blood pressure ranges 117 to 171 systolic/71 to 87 diastolic. GENERAL: The patient lying in bed sleeping. No acute distress. HEENT: Pupils equal, round, reactive to light. Extraocular muscles intact. NECK: Supple, no thyromegaly. LUNGS: Clear to auscultation bilaterally. CARDIOVASCULAR: S1, S2 heard. No rubs or gallops. ABDOMEN: Soft, nontender, nondistended. Normal bowel sounds. No rebound or guarding. MUSCULOSKELETAL: Trace pitting edema bilateral lower extremities to the ankles. NEUROLOGIC: No focal deficits. LABORATORY DATA: CBC is normal except for white count 2.9. There was no BMP done this morning, but the LFTs are trending down, AST is down to 86, ALT is 200 and bilirubin is normal. ASSESSMENT AND PLAN: This is a 56-year-old male with a history of VRE conjunctivitis, hypothyroidis m, diabetic retinopathy, psoas abscess, laminectomy, spinal osteomyelitis, hepatitis C, chronic kid mara disease, transferred from outside hospital due to insurance purposes because of pyelonephritis. PLAN: 1. Pyelonephritis. Continue broad spectrum antibiotics. Follow up final culture results. Tylenol p.r.n. for pain and fevers. 2. Prior history of spinal osteomyelitis. Again, continue broad spectrum antibiotics. Follow up I D recommendations. He also has a prior history of spinal abscess diskitis, but again per ID recomme ndations he is going to need to continue antibiotics for now. 3. History of VRE right conjunctivitis. No present issues. Continue to monitor for now. 4. History of diabetic retinopathy. Continue to monitor for now. 5. History of hypothyroidism. Continue Levoxyl. 6. Hypertension. Blood pressure is on the high normal range. Continue nifedipine and hydralazine p.o. He is also on hydralazine IV p.r.n. greater than 160. 7. History of benign prostatic hypertrophy. Continue to monitor for now. 8. History of hepatitis C. No present issues. No fevers. Continue to monitor for now. 9. Gastrointestinal prophylaxis. PPI. 10. Deep venous thrombosis prophylaxis. Heparin subq. Consider PT consult as well. 11. History of type 2 diabetes, cautiously continue insulin for now, given his hypoglycemia. He is off of his aspart for now. Dictated By: PHANI STOVALL Conf#: [id number] DID#: [id number]
[2016-10-17] MEDS: INSULIN ASPART [NOVOLOG] 3 ML PEN SC SCH ×4 (08:24→22:11)
[2016-10-17] MEDS ORDERED: CEFEPIME 1GM/50 ML (PMX) 50 ML IVPB SCH (09:00)
[2016-10-17] MEDS: NIFEdipine (XL) 60 MG TAB PO SCH ×2 (09:11→22:11)
[2016-10-17] MEDS: DOCUSATE SODIUM 100 MG CAP PO SCH ×2 (09:11→22:10)
[2016-10-17] MEDS: CIPROFLOXACIN 0.3% 2.5 ML OPH BOTH EYES SCH ×3 (09:12→22:06)
[2016-10-17] MEDS: SENNA TAB PO SCH ×2 (09:12→22:11)
[2016-10-17] MEDS: HEPARIN 5,000 UNIT/0.5 ML VIAL SC SCH ×2 (09:20→22:27)
[2016-10-17] MEDS: LORAZEPAM 2 MG INJ IV PRN ×2 (09:23→19:20)
--- NOTE | 2016-10-17 11:31 | PN ---
Date/Time of Note Date/Time of Note DATE: 10/17/16 TIME: 11:29 Assessment/Plan VTE Prophylaxis VTE Prophylaxis Intervention: heparin Lines/Catheters IV C[facility] Type (from [facility] Peripheral IV Urinary Cath still in place: No Assessment/Plan Chief Complaint/Hosp Course ASSESSMENT AND PLAN: This is a 56-year-old male with a history of VRE conjunctivitis, hypothyroidism, diabetic retinopathy, psoas abscess, laminectomy , spinal osteomyelitis, hepatitis C, chronic kidney disease, transferred from outside hospital due to insurance purposes because of pyelonephritis. 1. Pyelonephritis- improving. - Continue broad spectrum antibiotics. Follow up final culture results. Tylenol p.r.n. for pain and fevers. - Consider PT consult as well. 2. Prior history of spinal osteomyelitis - s/p tx earlier. - monitor, f/u ID recommendations. 3. History of VRE right conjunctivitis. No present issues. Continue to monitor for now. 4. History of diabetic retinopathy. Continue to monitor for now. 5. History of hypothyroidism. Continue Levoxyl. 6. Hypertension. Blood pressure is on the high normal range. - Continue nifedipine and hydralazine p.o. He is also on hydralazine IV p.r.n. greater than 160. 7. History of benign prostatic hypertrophy. Continue to monitor for now. 8. History of hepatitis C. No present issues. No fevers. Continue to monitor for now. 9. Gastrointestinal prophylaxis. PPI. 10. Deep venous thrombosis prophylaxis. Heparin subq. 11. History of type 2 diabetes, cautiously continue insulin for now, given his hypoglycemia. He is off of his aspart for now. Problems: Subjective 24 Hr Interval Summary Free Text/Dictation No acute events overnight. Pt seen by ID team. Exam/Review of Systems Vital Signs Vitals Vital Signs Date Time Temp Pulse Resp B/P Pulse Ox O2 Delivery O2 Flow Rate FiO2 10/17/16 07:33 97.5 60 18 122/71 97 10/16/16 08:00 Room Air Intake and Output 10/16/16 10/16/16 10/17/16 15:00 23:00 07:00 Intake Total 104 ml 650 ml 240 ml Output Total 250 ml Balance 104 ml 650 ml -10 ml Exam GENERAL: The patient lying in bed sleeping. No acute distress. HEENT: Pupils equal, round, reactive to light. Extraocular muscles intact. NECK: Supple, no thyromegaly. LUNGS: Clear to auscultation bilaterally. CARDIOVASCULAR: S1, S2 heard. No rubs or gallops. ABDOMEN: Soft, nontender, nondistended. Normal bowel sounds. No rebound or guarding. MUSCULOSKELETAL: Trace pitting edema bilateral lower extremities to the ankles. NEUROLOGIC: No focal deficits. Results Result Diagram: 10/17/16 0530 10/17/16 0530 Results 24 hrs Laboratory Tests Test 10/16/16 11:48 10/16/16 17:35 10/16/16 20:34 10/17/16 05:30 Bedside Glucose 97 149 180 White Blood Count 3.1 L Red Blood Count 2.96 L Hemoglobin 9.0 L Hematocrit 26.3 L Mean Corpuscular Volume 88.9 Mean Corpuscular Hemoglobin 30.4 Mean Corpuscular Hemoglobin Concent 34.2 Red Cell Distribution Width 15.3 H Platelet Count 145 Mean Platelet Volume 9.3 Neutrophils % 56.2 Lymphocytes % 25.2 Monocytes % 10.3 Eosinophils % 7.4 H Basophils % 0.6 Nucleated Red Blood Cells % 0.0 Neutrophils # 1.7 Lymphocytes # 0.8 Monocytes # 0.3 Eosinophils # 0.2 Basophils # 0.0 Nucleated Red Blood Cells # 0.0 Sodium Level 133 L Potassium Level 5.3 H Chloride Level 111 H Carbon Dioxide Level 20 L Anion Gap 7 L Blood Urea Nitrogen 42 H Creatinine 2.22 H Glucose Level 179 # Calcium Level 7.4 L Total Bilirubin 0.0 L Direct Bilirubin 0.00 Indirect Bilirubin 0.0 Aspartate Amino Transf (AST/SGOT) 87 H Alanine Aminotransferase (ALT/SGPT) 181 H Alkaline Phosphatase 92 Total Protein 6.0 L Albumin 2.5 L Test 10/17/16 08:04 Bedside Glucose 194 Medications Medications Current Medications Neomycin/ Polymyxin/ Hydrocortisone (Cortisporin Oph Perri) 1 drop Q6H LEFT EYE Last administered on 10/17/16 05:11; Admin Dose 1 DROP; Start 10/15/16 at 06:00 ; Stop 10/18/16 at 07:00 Ciprofloxacin HCl (Ciloxan 0.3% Oph) 1 drop TID BOTH EYES Last administered on 10/17/16 09:12; Admin Dose 1 DROP; Start 10/15/16 at 09:00; Stop 10/17/16 at 22 :00 Hydralazine HCl (Apresoline) 50 mg TID PO Last administered on 10/17/16 09:12 ; Admin Dose 50 MG; Start 10/15/16 at 09:00 Levothyroxine Sodium (Synthroid) 75 mcg DAILY@06 PO Last administered on 05:13; Admin Dose 75 MCG; Start 10/15/16 at 06:00 Acetaminophen/ Hydrocodone Bitart ([place] (10/325)) 1 tab Q4H PRN PO PAIN Last administered on 10/16/16 18:41; Admin Dose 1 TAB; Start 10/15/16 at 03:30 Diagnostic Test (Pha) (Accu-Chek) 1 ea 02 XX ; Start 10/16/16 at 02:00 Nifedipine (Procardia Xl) 60 mg BID PO Last administered on 10/17/16 09:11; Admin Dose 60 MG; Start 10/15/16 at 09:00 Miscellaneous Information 1 ea NOTE XX ; Start 10/15/16 at 03:45 Glucose (Glutose) 15 gm Q15M PRN PO DECREASED GLUCOSE; Start 10/15/16 at 03:45 Glucose (Glutose) 22.5 gm Q15M PRN PO DECREASED GLUCOSE Last administered on 12:16; Admin Dose 22.5 GM; Start 10/15/16 at 03:45 Dextrose (D50w Syringe) 25 ml Q15M PRN IV DECREASED GLUCOSE; Start 10/15/16 at 03:45 Dextrose (D50w Syringe) 50 ml Q15M PRN IV DECREASED GLUCOSE Last administered on 10/15/16 22:16; Admin Dose 50 ML; Start 10/15/16 at 03:45 Glucagon (Glucagen) 1 mg Q15M PRN IM DECREASED GLUCOSE; Start 10/15/16 at 03:45 Glucose (Glutose) 15 gm Q15M PRN BUCCAL DECREASED GLUCOSE Last administered on 10/15/16 19:46; Admin Dose 15 GM; Start 10/15/16 at 03:45 Hydralazine HCl (Apresoline) 10 mg Q4H PRN IV SBP ABOVE 160mmHg Last administered on 10/15/16 17:41; Admin Dose 10 MG; Start 10/15/16 at 05:00 Trimethobenzamide HCl 200 mg 200 mg Q6H PRN IM NAUSEA AND/OR VOMITING; Start at 15:30 Ondansetron HCl/ Dextrose (Zofran Inj/D5W) 54 ml @ 108 mls/hr Q6H PRN IV NAUSEA AND/OR VOMITING Last administered on 10/16/16 09:29; Admin Dose 108 MLS/ HR; Start 10/15/16 at 15:30 Lorazepam 1 mg 1 mg Q4H PRN IV ANXIETY Last administered on 10/17/16 09:23; Admin Dose 1 MG; Start 10/15/16 at 21:00 Dextrose (D10w) 1,000 ml @ 50 mls/hr Q20H IV Last administered on 10/16/16 18 :40; Admin Dose 50 MLS/HR; Start 10/15/16 at 22:30 Morphine Sulfate (morphine) 2 mg Q4H PRN IV PAIN Last administered on 05:11; Admin Dose 2 MG; Start 10/16/16 at 11:30 Pantoprazole (Protonix Tab) 40 mg DAILY@06 PO Last administered on 10/17/16 05 :13; Admin Dose 40 MG; Start 10/17/16 at 06:00 Heparin Sodium (Porcine) (Heparin (5000 Units/0.5 ml)) 5,000 unit BID SC Last administered on 10/17/16 09:20; Admin Dose 5,000 UNIT; Start 10/16/16 at 21:00 Docusate Sodium (Colace) 100 mg BID PO Last administered on 10/17/16 09:11; Admin Dose 100 MG; Start 10/16/16 at 21:00 Senna (Senokot) 1 tab BID PO Last administered on 10/17/16 09:12; Admin Dose 1 TAB; Start 10/16/16 at 21:00 PHANI REYES October 17, 2016 11:31
--- NOTE | 2016-10-17 14:12 | CONS ---
Date/Time of Note Date/Time of Note DATE: 10/17/16 TIME: 14:11 Assessment/Plan Assessment/Plan Chief Complaint/Hosp Course SUBJECTIVE: No events, looks comfortable. No fevers. ANTIMICROBIALS: Vanco, Cefepime PHYSICAL EXAMINATION: GENERAL: Chronically ill-appearing, middle-aged man who is awake, in no distress. HEENT: Head atraumatic, normocephalic. Buccal mucosa dry. NECK: Supple. CHEST: Rise symmetrical. Breath sounds clear, diminished to bases. HEART: S1, S2. ABDOMEN: Soft, bowel tones present. EXTREMITIES: Without cyanosis. ASSESSMENT: 1. Recurrent UTI==> yeast 2. S/p VRE right conjunctivitis. 3. CKD==> Hx HD 4. History of spinal abscess diskitis, status post surgical intervention, completed long-term antibiotics. 5 . Hx L otomastoiditis 7. Pancytopenia PLAN: Remains stable, will start Diflucan, dc abx DW pt/staff Problems: Consultation Date/Type/Reason Admit Date/Time October 15, 2016 at 02:37 Type of Consultation: ID Exam/Review of Systems Vital Signs Vitals Vital Signs Date Time Temp Pulse Resp B/P Pulse Ox O2 Delivery O2 Flow Rate FiO2 10/17/16 07:33 97.5 60 18 122/71 97 10/16/16 08:00 Room Air Intake and Output 10/16/16 10/16/16 10/17/16 15:00 23:00 07:00 Intake Total 104 ml 650 ml 240 ml Output Total 250 ml Balance 104 ml 650 ml -10 ml Results Result Diagram: 10/17/16 0530 10/17/16 0530 Results 24 hrs Laboratory Tests Test 10/16/16 17:35 10/16/16 20:34 10/17/16 05:30 10/17/16 08:04 Bedside Glucose 149 180 194 White Blood Count 3.1 L Red Blood Count 2.96 L Hemoglobin 9.0 L Hematocrit 26.3 L Mean Corpuscular Volume 88.9 Mean Corpuscular Hemoglobin 30.4 Mean Corpuscular Hemoglobin Concent 34.2 Red Cell Distribution Width 15.3 H Platelet Count 145 Mean Platelet Volume 9.3 Neutrophils % 56.2 Lymphocytes % 25.2 Monocytes % 10.3 Eosinophils % 7.4 H Basophils % 0.6 Nucleated Red Blood Cells % 0.0 Neutrophils # 1.7 Lymphocytes # 0.8 Monocytes # 0.3 Eosinophils # 0.2 Basophils # 0.0 Nucleated Red Blood Cells # 0.0 Sodium Level 133 L Potassium Level 5.3 H Chloride Level 111 H Carbon Dioxide Level 20 L Anion Gap 7 L Blood Urea Nitrogen 42 H Creatinine 2.22 H Glucose Level 179 # Calcium Level 7.4 L Total Bilirubin 0.0 L Direct Bilirubin 0.00 Indirect Bilirubin 0.0 Aspartate Amino Transf (AST/SGOT) 87 H Alanine Aminotransferase (ALT/SGPT) 181 H Alkaline Phosphatase 92 Total Protein 6.0 L Albumin 2.5 L Test 10/17/16 12:07 Bedside Glucose 160 Medications Medications Current Medications Neomycin/ Polymyxin/ Hydrocortisone (Cortisporin Oph Perri) 1 drop Q6H LEFT EYE Last administered on 10/17/16 12:26; Admin Dose 1 DROP; Start 10/15/16 at 06:00 ; Stop 10/18/16 at 07:00 Ciprofloxacin HCl (Ciloxan 0.3% Oph) 1 drop TID BOTH EYES Last administered on 10/17/16 13:05; Admin Dose 1 DROP; Start 10/15/16 at 09:00; Stop 10/17/16 at 22 :00 Hydralazine HCl (Apresoline) 50 mg TID PO Last administered on 10/17/16 13:06 ; Admin Dose 50 MG; Start 10/15/16 at 09:00 Levothyroxine Sodium (Synthroid) 75 mcg DAILY@06 PO Last administered on 05:13; Admin Dose 75 MCG; Start 10/15/16 at 06:00 Acetaminophen/ Hydrocodone Bitart ([place] (10/325)) 1 tab Q4H PRN PO PAIN Last administered on 10/16/16 18:41; Admin Dose 1 TAB; Start 10/15/16 at 03:30 Diagnostic Test (Pha) (Accu-Chek) 1 ea 02 XX ; Start 10/16/16 at 02:00 Nifedipine (Procardia Xl) 60 mg BID PO Last administered on 10/17/16 09:11; Admin Dose 60 MG; Start 10/15/16 at 09:00 Miscellaneous Information 1 ea NOTE XX ; Start 10/15/16 at 03:45 Glucose (Glutose) 15 gm Q15M PRN PO DECREASED GLUCOSE; Start 10/15/16 at 03:45 Glucose (Glutose) 22.5 gm Q15M PRN PO DECREASED GLUCOSE Last administered on 12:16; Admin Dose 22.5 GM; Start 10/15/16 at 03:45 Dextrose (D50w Syringe) 25 ml Q15M PRN IV DECREASED GLUCOSE; Start 10/15/16 at 03:45 Dextrose (D50w Syringe) 50 ml Q15M PRN IV DECREASED GLUCOSE Last administered on 10/15/16 22:16; Admin Dose 50 ML; Start 10/15/16 at 03:45 Glucagon (Glucagen) 1 mg Q15M PRN IM DECREASED GLUCOSE; Start 10/15/16 at 03:45 Glucose (Glutose) 15 gm Q15M PRN BUCCAL DECREASED GLUCOSE Last administered on 10/15/16 19:46; Admin Dose 15 GM; Start 10/15/16 at 03:45 Hydralazine HCl (Apresoline) 10 mg Q4H PRN IV SBP ABOVE 160mmHg Last administered on 10/15/16 17:41; Admin Dose 10 MG; Start 10/15/16 at 05:00 Trimethobenzamide HCl 200 mg 200 mg Q6H PRN IM NAUSEA AND/OR VOMITING; Start at 15:30 Ondansetron HCl/ Dextrose (Zofran Inj/D5W) 54 ml @ 108 mls/hr Q6H PRN IV NAUSEA AND/OR VOMITING Last administered on 10/16/16 09:29; Admin Dose 108 MLS/ HR; Start 10/15/16 at 15:30 Lorazepam 1 mg 1 mg Q4H PRN IV ANXIETY Last administered on 10/17/16 09:23; Admin Dose 1 MG; Start 10/15/16 at 21:00 Dextrose (D10w) 1,000 ml @ 50 mls/hr Q20H IV Last administered on 10/16/16 18 :40; Admin Dose 50 MLS/HR; Start 10/15/16 at 22:30 Morphine Sulfate (morphine) 2 mg Q4H PRN IV PAIN Last administered on 05:11; Admin Dose 2 MG; Start 10/16/16 at 11:30 Pantoprazole (Protonix Tab) 40 mg DAILY@06 PO Last administered on 10/17/16 05 :13; Admin Dose 40 MG; Start 10/17/16 at 06:00 Heparin Sodium (Porcine) (Heparin (5000 Units/0.5 ml)) 5,000 unit BID SC Last administered on 10/17/16 09:20; Admin Dose 5,000 UNIT; Start 10/16/16 at 21:00 Docusate Sodium (Colace) 100 mg BID PO Last administered on 10/17/16 09:11; Admin Dose 100 MG; Start 10/16/16 at 21:00 Senna (Senokot) 1 tab BID PO Last administered on 10/17/16 09:12; Admin Dose 1 TAB; Start 10/16/16 at 21:00 DORENE GARCIA NP October 17, 2016 14:12
[2016-10-17] MEDS ORDERED: FLUCONAZOLE 100 MG TAB PO ONE (14:30)
[2016-10-17] MEDS: DEXTROSE 10% 1,000 ML IV SCH (14:46)
[2016-10-17] MEDS: ONDANSETRON INJ 8 MG in DEXTROSE 5% 50 ML IV PRN (17:51)
[2016-10-17] MEDS: HYDROCODONE/APAP (10/325) TAB PO PRN (17:52)
[2016-10-17] MEDS ORDERED: DEXTROSE 5%-0.9% NACL 1,000 ML IV SCH (19:00)
--- NOTE | 2016-10-17 19:09 | CONS ---
DATE OF ADMISSION: 10/15/2016 DATE OF CONSULTATION: TYPE OF CONSULTATION: Nephrology consultation. HISTORY OF PRESENT ILLNESS: This is a 56-year-old male with a past medical history of chronic kidne y disease stage IV, with a baseline creatinine around 2 to 2.5 mg/dL, history of hypothyroidism, hi story of diabetes, history of diabetic retinopathy, history of spinal osteomyelitis, history of lami nectomy, hepatitis C, BPH, conjunctivitis, who was transferred to [facility] from an outside facility due to insurance reasons. The patient initially was admitted to an outside [place] [facility] because of abdominal pain and back pain. The patient during that hospital workup, had a CT sca n which showed pyelonephritis. He was given antibiotics and transferred to [facility] for continued care. In terms of the patient's renal history, the patient previously was at [facility] for a prolonged hospital course. During that hospitalization, the patient was on dialysis due to ac tim kidney injury secondary to acute tubular necrosis. Patient had improved enough renal recovery t hat dialysis was discontinued and his creatinine has stabilized from previously around 2.5 mg/dL. C urrently, the patient's creatinine is near baseline. The patient does admit to having increased low er extremity swelling during the last several days. He denies any frothy urine, any rashes. PAST MEDICAL HISTORY: As stated above, history of CKD stage IV, history of diabetes, history of issa betic retinopathy, history of hypothyroidism, history of spinal osteomyelitis, history of BPH. PAST SURGICAL HISTORY: Status post laminectomy, status post Johnathan catheter placement ____. ALLERGIES: NO KNOWN DRUG ALLERGIES. FAMILY HISTORY: Noncontributory. SOCIAL HISTORY: Does not drink, smoke or do drugs. MEDICATIONS: Have been reviewed. REVIEW OF SYSTEMS: A 14-point review of systems was conducted. Pertinent positives stated in HPI, otherwise negative. PHYSICAL EXAMINATION: VITAL SIGNS: Blood pressure is 122/76, respiration 18, pulse 60, temperature 97.5. HEENT: Head is normocephalic. NECK: Supple. HEART: Regular rate. LUNGS: Show diminished breath sounds at the base. ABDOMEN: Soft and nontender to palpation. No rebound or guarding. EXTREMITIES: Negative for clubbing, cyanosis. Positive edema. DERMATOLOGIC: No rashes. MUSCULOSKELETAL: No joint effusions. NEUROLOGIC: No focal deficits. The patient's medications have been reviewed. LABORATORY DATA: Shows sodium 133, potassium ____, chloride 111, BUN 42, creatinine 2.22. White co unt 3.1, hemoglobin 9.0, hematocrit 26.3, platelet count is 145. ASSESSMENT AND PLAN: This is a 56-year-old male who presents with: 1. Nonoliguric acute kidney injury on top of chronic kidney disease with previous baseline creatini ne around 2 to 2.5 mg/dL. Etiology of acute kidney injury is likely secondary to hemodynamics. Pat shannannt's renal function is close to previous baseline. The patient's urinalysis shows positive protei violette but otherwise no active sediment. The plan at this point is to continue current treatment elpidio n. Would continue IV antibiotics. Continue supportive care, renally dose all meds, monitor closely . 2. Hyperkalemia. Etiology is likely secondary to acute kidney injury. The patient will be placed on a low potassium diet. Will continue to monitor. 3. Hyponatremia secondary to acute kidney injury causing decreased free water urinary excretion. W ould recommend to discontinue hypertonic fluids. Will continue to monitor sodium levels. The patie nt may need to be placed on a free water restriction. 4. Mineral bone disorder. We will monitor calcium and phosphorus levels. 5. Anemia of chronic disease. Monitor hemoglobin and hematocrit levels. We will give Epogen as ne eded. 6. Pyelonephritis. Continue current antibiotic regimen. Follow up with Infectious Disease. 7. Vancomycin-resistant conjunctivitis. Continue to monitor. 8. History of spinal osteomyelitis, status post antibiotics. 9. Diabetes. Continue Accu-Cheks and insulin sliding scale. 10. Hypothyroidism. Continue Synthroid. 11. Benign prostatic hypertrophy. Continue to monitor. 12. History of hepatitis C. Continue to observe. 13. Gastrointestinal and deep venous thrombosis prophylaxis, proton pump inhibitor and heparin. Thank you, Dr. Reyes, for this interesting consult. It will be a pleasure to follow the patient with you throughout the hospital course. Dictated By: NAE MENDOZA DO NR/ERICKA Conf#: [id number] DID#: [id number] CC: PHANI REYES;*EndCC*
[2016-10-17 20:12] VITALS: BP 139/84; RESP 18
[2016-10-17 23:41] LABS: ADD UMIC YES; URINE BILIRUBIN (Dip) NEGATIVE (NEGATIVE); URINE BLOOD (Dip) TRACE (NEGATIVE); URINE COLOR LT. YELLOW (YELLOW); URINE GLUCOSE (Dip) NEGATIVE (NEGATIVE); URINE KETONES (Dip) NEGATIVE (NEGATIVE); URINE LEUKOCYTE ESTERASE (Dip) 1+ (NEGATIVE); URINE NITRITE (Dip) NEGATIVE (NEGATIVE); URINE TOTAL PROTEIN (Dip) 1+ (NEGATIVE); URINE UROBILINOGEN (Dip) 0.2 E.U./dL (0.1-1.0)
[2016-10-18 00:21] LABS: BACTERIA,URINE MODERATE; SQUAMOUS EPITHELIAL CELL,UR MODERATE; URINE RBCS 0-2 /HPF (0)
[2016-10-18] MEDS: LORAZEPAM 2 MG INJ IV PRN ×3 (00:58→18:17)
[2016-10-18] MEDS: NEOMYC/POLYMYX/HC 7.5 ML OPH LEFT EYE SCH ×2 (00:58→06:43)
[2016-10-18] MEDS: ACCU-CHEK XX SCH (02:00)
[2016-10-18] MEDS: ONDANSETRON INJ 8 MG in DEXTROSE 5% 50 ML IV PRN ×2 (02:33→23:57)
[2016-10-18] MEDS: morphine 4 MG/ML VIAL IV PRN ×5 (02:33→20:41)
[2016-10-18 05:50] LABS: ADD SCAN DIFF NO
[2016-10-18 05:51] LABS: BASOPHILS % 0.8 % (0.0-2.0); EOSINOPHILS # 0.2 10^3/ul (0.0-0.5); EOSINOPHILS % 9.2 % (0.0-7.0); HEMATOCRIT 25.7 % (42.0-52.0); HEMOGLOBIN 8.6 g/dl (14.0-18.0); LYMPHOCYTES # 0.9 10^3/ul (0.8-2.9); LYMPHOCYTES % 36.6 % (15.0-51.0); MEAN CORPUSCULAR HEMOGLOBIN 29.9 pg (29.0-33.0); MEAN CORPUSCULAR HGB CONC 33.5 g/dl (32.0-37.0); MEAN CORPUSCULAR VOLUME 89.2 fl (82.0-101.0); MEAN PLATELET VOLUME 9.3 fl (7.4-10.4); MONOCYTE # 0.3 10^3/ul (0.3-0.9); MONOCYTES % 10.9 % (0.0-11.0); NEUTROPHILS % 42.5 % (39.0-77.0); PLATELET COUNT 154 10^3/UL (140-415); RED BLOOD COUNT 2.88 10^6/ul (4.70-6.10); RED CELL DISTRIBUTION WIDTH 15.1 % (11.5-14.5); WHITE BLOOD COUNT 2.4 10^3/ul (4.8-10.8)
[2016-10-18 06:26] LABS: CALCIUM 7.5 mg/dl (8.4-10.2); CREATININE 2.21 mg/dl (0.61-1.24)
[2016-10-18 06:36] LABS: MAGNESIUM 2.2 mg/dl (1.7-2.5); PHOSPHORUS 6.2 mg/dl (2.5-4.9)
[2016-10-18] MEDS: LEVOTHYROXINE 75 MCG TAB PO SCH (06:43)
[2016-10-18] MEDS: PANTOPRAZOLE (EC) 40 MG TAB PO SCH (06:43)
[2016-10-18 07:06] LABS: POTASSIUM 5.8 mmol/L (3.5-5.1)
[2016-10-18 07:48] VITALS: BP 133/76; RESP 18
[2016-10-18] MEDS: INSULIN ASPART [NOVOLOG] 3 ML PEN SC SCH ×4 (08:24→21:00)
[2016-10-18] MEDS: HEPARIN 5,000 UNIT/0.5 ML VIAL SC SCH ×2 (09:07→21:22)
[2016-10-18] MEDS: DOCUSATE SODIUM 100 MG CAP PO SCH ×2 (09:14→21:12)
[2016-10-18] MEDS: SENNA TAB PO SCH ×2 (09:14→21:12)
[2016-10-18] MEDS: FLUCONAZOLE 100 MG TAB PO SCH (09:14)
[2016-10-18] MEDS: NIFEdipine (XL) 60 MG TAB PO SCH ×2 (09:15→21:13)
[2016-10-18] MEDS ORDERED: NA POLYST SULFON 15 GM/60 ML BTL PO ONE (10:00)
--- NOTE | 2016-10-18 10:49 | PN ---
Date/Time of Note Date/Time of Note DATE: 10/18/16 TIME: 10:45 Assessment/Plan VTE Prophylaxis VTE Prophylaxis Intervention: heparin Lines/Catheters [facility] Peripheral IV Urinary Cath still in place: No Assessment/Plan Chief Complaint/Hosp Course ASSESSMENT AND PLAN: This is a 56-year-old male with a history of VRE conjunctivitis, hypothyroidism, diabetic retinopathy, psoas abscess, laminectomy , spinal osteomyelitis, hepatitis C, chronic kidney disease, transferred from outside hospital due to insurance purposes because of pyelonephritis. 1. Pyelonephritis- improving. - Continue broad spectrum antibiotics. Follow up final culture results. Tylenol p.r.n. for pain and fevers. - F/u PT consult as well. 2. Prior history of spinal osteomyelitis - s/p tx on an earlier admission with joint terminal attack controller abx. - monitor, f/u ID recommendations. 3. History of VRE right conjunctivitis. No present issues. Continue to monitor for now, f/u ID rec's. 4. History of diabetic retinopathy. Continue to monitor for now. 5. History of hypothyroidism. Continue Levoxyl. 6. Hypertension. Blood pressure is on the high normal range. - Continue nifedipine and hydralazine p.o. He is also on hydralazine IV p.r.n. greater than 160. 7. History of benign prostatic hypertrophy. Continue to monitor for now. 8. History of hepatitis C. No present issues. No fevers. Continue to monitor for now. 9. Gastrointestinal prophylaxis. PPI. 10. Deep venous thrombosis prophylaxis. Heparin subq. 11. History of type 2 diabetes, cautiously continue insulin for now, given his hypoglycemia. He is off of his aspart for now. 12. CKD - stage 4 - f/u renal rec's, monitor UO. Cr still elevated. Problems: Subjective 24 Hr Interval Summary Free Text/Dictation No acute events overnight, seen by renal team. Exam/Review of Systems Vital Signs Vitals Vital Signs Date Time Temp Pulse Resp B/P Pulse Ox O2 Delivery O2 Flow Rate FiO2 10/18/16 07:48 97.5 64 18 133/76 97 10/17/16 20:00 Nasal Cannula 2.0 Intake and Output 10/17/16 10/17/16 10/18/16 15:00 23:00 07:00 Intake Total 650 ml 1090 ml 504 ml Output Total 470 ml 701 ml Balance 650 ml 620 ml -197 ml Exam GENERAL: The patient lying in bed sleeping. No acute distress. HEENT: Pupils equal, round, reactive to light. Extraocular muscles intact. NECK: Supple, no thyromegaly. LUNGS: Clear to auscultation bilaterally. CARDIOVASCULAR: S1, S2 heard. No rubs or gallops. ABDOMEN: Soft, nontender, nondistended. Normal bowel sounds. No rebound or guarding. MUSCULOSKELETAL: Trace pitting edema bilateral lower extremities to the ankles. NEUROLOGIC: No focal deficits. Results Result Diagram: 10/18/16 0510 10/18/16 0510 Results 24 hrs Laboratory Tests Test 10/17/16 12:07 10/17/16 17:27 10/17/16 22:00 10/17/16 22:20 Bedside Glucose 160 173 156 Urine Color LT. YELLOW Urine Clarity CLEAR Urine pH 6.0 Urine Specific [place] 1.010 Urine Ketones NEGATIVE Urine Nitrite NEGATIVE Urine Bilirubin NEGATIVE Urine Urobilinogen 0.2 E.U./dL Urine Leukocyte Esterase 1+ H Urine Microscopic RBC 0-2 Urine Microscopic WBC 5-10 Urine Squamous Epithelial Cells MODERATE Urine Bacteria MODERATE Urine Yeast MANY Urine Hemoglobin TRACE Urine Random Creatinine 16.97 L Urine Random Sodium 38 Urine Glucose NEGATIVE Urine Total Protein 93.0 H Test 10/18/16 05:10 10/18/16 08:02 White Blood Count 2.4 #L Red Blood Count 2.88 L Hemoglobin 8.6 L Hematocrit 25.7 L Mean Corpuscular Volume 89.2 Mean Corpuscular Hemoglobin 29.9 Mean Corpuscular Hemoglobin Concent 33.5 Red Cell Distribution Width 15.1 H Platelet Count 154 Mean Platelet Volume 9.3 Neutrophils % 42.5 Lymphocytes % 36.6 Monocytes % 10.9 Eosinophils % 9.2 H Basophils % 0.8 Nucleated Red Blood Cells % 0.0 Neutrophils # 1.0 L Lymphocytes # 0.9 Monocytes # 0.3 Eosinophils # 0.2 Basophils # 0.0 Nucleated Red Blood Cells # 0.0 Sodium Level 133 L Potassium Level 5.8 H Chloride Level 111 H Carbon Dioxide Level 20 L Anion Gap 8 Blood Urea Nitrogen 42 H Creatinine 2.21 H Glucose Level 139 # Calcium Level 7.5 L Phosphorus Level 6.2 H Magnesium Level 2.2 Bedside Glucose 157 Medications Medications Current Medications Hydralazine HCl (Apresoline) 50 mg TID PO Last administered on 10/18/16 09:15 ; Admin Dose 50 MG; Start 10/15/16 at 09:00 Levothyroxine Sodium (Synthroid) 75 mcg DAILY@06 PO Last administered on 06:43; Admin Dose 75 MCG; Start 10/15/16 at 06:00 Acetaminophen/ Hydrocodone Bitart ([place] (10/325)) 1 tab Q4H PRN PO PAIN Last administered on 10/16/16 18:41; Admin Dose 1 TAB; Start 10/15/16 at 03:30 Diagnostic Test (Pha) (Accu-Chek) 1 ea 02 XX ; Start 10/16/16 at 02:00 Nifedipine (Procardia Xl) 60 mg BID PO Last administered on 10/18/16 09:15; Admin Dose 60 MG; Start 10/15/16 at 09:00 Miscellaneous Information 1 ea NOTE XX ; Start 10/15/16 at 03:45 Glucose (Glutose) 15 gm Q15M PRN PO DECREASED GLUCOSE; Start 10/15/16 at 03:45 Glucose (Glutose) 22.5 gm Q15M PRN PO DECREASED GLUCOSE Last administered on 12:16; Admin Dose 22.5 GM; Start 10/15/16 at 03:45 Dextrose (D50w Syringe) 25 ml Q15M PRN IV DECREASED GLUCOSE; Start 10/15/16 at 03:45 Dextrose (D50w Syringe) 50 ml Q15M PRN IV DECREASED GLUCOSE Last administered on 10/15/16 22:16; Admin Dose 50 ML; Start 10/15/16 at 03:45 Glucagon (Glucagen) 1 mg Q15M PRN IM DECREASED GLUCOSE; Start 10/15/16 at 03:45 Glucose (Glutose) 15 gm Q15M PRN BUCCAL DECREASED GLUCOSE Last administered on 10/15/16 19:46; Admin Dose 15 GM; Start 10/15/16 at 03:45 Hydralazine HCl (Apresoline) 10 mg Q4H PRN IV SBP ABOVE 160mmHg Last administered on 10/15/16 17:41; Admin Dose 10 MG; Start 10/15/16 at 05:00 Trimethobenzamide HCl 200 mg 200 mg Q6H PRN IM NAUSEA AND/OR VOMITING; Start at 15:30 Ondansetron HCl/ Dextrose (Zofran Inj/D5W) 54 ml @ 108 mls/hr Q6H PRN IV NAUSEA AND/OR VOMITING Last administered on 10/18/16 02:33; Admin Dose 108 MLS/ HR; Start 10/15/16 at 15:30 Lorazepam (Ativan) 1 mg Q4H PRN IV ANXIETY Last administered on 10/18/16 09:16 ; Admin Dose 1 MG; Start 10/15/16 at 21:00 Morphine Sulfate (morphine) 2 mg Q4H PRN IV PAIN Last administered on 06:43; Admin Dose 2 MG; Start 10/16/16 at 11:30 Pantoprazole (Protonix Tab) 40 mg DAILY@06 PO Last administered on 10/18/16 06 :43; Admin Dose 40 MG; Start 10/17/16 at 06:00 Heparin Sodium (Porcine) (Heparin (5000 Units/0.5 ml)) 5,000 unit BID SC Last administered on 10/18/16 09:07; Admin Dose 5,000 UNIT; Start 10/16/16 at 21:00 Docusate Sodium (Colace) 100 mg BID PO Last administered on 10/18/16 09:14; Admin Dose 100 MG; Start 10/16/16 at 21:00 Senna (Senokot) 1 tab BID PO Last administered on 10/18/16 09:14; Admin Dose 1 TAB; Start 10/16/16 at 21:00 Fluconazole (Diflucan) 100 mg DAILY PO Last administered on 10/18/16 09:14; Admin Dose 100 MG; Start 10/18/16 at 09:00 PHANI REYES October 18, 2016 10:49
--- NOTE | 2016-10-18 10:56 | PN ---
DATE: 10/18/2016 SUBJECTIVE: The patient is stable, no acute events overnight. The patient is edematous in lower ex tremities. No other events. No fevers, chills, nausea, vomiting. OBJECTIVE: VITAL SIGNS: Blood pressure 133/____, respiration 18, pulse 64, temperature 97.5. HEENT: Head is normocephalic. NECK: Supple. HEART: Regular rate. LUNGS: Show diminished breath sounds at base. Positive rhonchi. ABDOMEN: Soft, nontender to palpation without rebound or guarding. EXTREMITIES: Negative for clubbing, cyanosis. Positive edema upper and lower extremity. DERMATOLOGIC: No rashes. MUSCULOSKELETAL: No joint effusions. NEUROLOGIC: No change in exam. MEDICATIONS: The patient's medications are reviewed. LABORATORY DATA: Shows sodium 133, potassium 5.8, chloride 111, BUN 42, creatinine 2.21, phosphorus 6.2. White count 2.4, hemoglobin 8.6, hematocrit 25.7, platelet count is 154. The patient's urina lysis shows a protein creatinine ratio approximately 4 ____ per gram of creatinine. ASSESSMENT AND PLAN: 1. Nonoliguric acute kidney injury on top of chronic kidney disease stage IV with previous baseline creatinine between 2 to 2.5 mg/dL. Etiology of current acute kidney injury is secondary to hemodyn amics. Renal function appears to be at baseline. At this point, continue current treatment plan, s upportive care, renally dose medications. Would continue antibiotic therapy. We will start the pat ient on diuretic therapy, as he is grossly volume overloaded and monitor renal function closely. 2. Volume overload secondary to diastolic heart failure and acute kidney injury. The patient will be initiating diuretic therapy, Lasix 40 mg IV b.i.d., monitor strict I's and O's. We will disconti nue IV fluids, observe closely. 3. Hyperkalemia. Etiology secondary to acute kidney injury. Continue low-potassium diet. Patient will be started on diuretic therapy. The patient will also be given 1 dose of Kayexalate. Will rep eat a potassium level and monitor. 4. Hyponatremia secondary to acute kidney injury causing decreased free water urinary excretion. C ontinue to limit free water intake and continue to monitor. 5. Mineral bone disorder. Continue to monitor calcium and phosphorus levels. 6. Chronic kidney disease, stage IV secondary to diabetic nephropathy with nephrotic range proteinu neymar. The patient is currently in acute kidney injury as stated above, will continue current medical management. Continue disease factor modification. 7. Anemia of chronic disease. Monitor hemoglobin and hematocrit levels. Will give Epogen as neede d. 8. Pyelonephritis. Continue current antibiotic regimen. 9. Vancomycin-resistant enterococci, conjunctivitis. Continue to monitor. 10. History of spinal osteomyelitis. 11. Diabetes. Continue Accu-Cheks and sliding scale. 12. Hypothyroid. Continue Synthroid. 13. Benign prostatic hypertrophy. Continue to monitor. 14. History of hepatitis C. 15. Gastrointestinal deep venous thrombosis prophylaxis. Continue proton pump inhibitor and hepa rin. Dictated By: NAE SINHA/ERICKA Conf#: [id number] DID#: [id number]
[2016-10-18] MEDS: FUROSEMIDE 40 MG INJ IV SCH ×2 (11:33→18:17)
[2016-10-18 15:30] LABS: POTASSIUM 5.8 mmol/L (3.5-5.1)
[2016-10-18 15:32] LABS: CREATININE 2.38 mg/dl (0.61-1.24)
[2016-10-18 15:34] LABS: CALCIUM 7.5 mg/dl (8.4-10.2)
--- NOTE | 2016-10-18 17:18 | CONS ---
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 ------ PHYSICAL EXAMINATION: VITAL SIGNS: Afebrile, VSS, NAD GENERAL: Looks comfortable HEENT: Unremarkable NECK: SNL LUNGS: Equal chest rise without dyspnea on observation HEART: RRR ABDOMEN: Soft, EXTREMITIES: Warm SKIN: Intact ID IMPRESSION: 56 yo M admit with: 1. Recurrent UTI==> yeast 2. S/p VRE right conjunctivitis. 3. CKD==> Hx HD 4. History of spinal abscess diskitis, status post surgical intervention, completed long-term antibiotics. 5 . Hx L otomastoiditis 7. Pancytopenia (-) MRSA Nares INVASIVES: PIV CURRENT ABX: C ID RECOMMENDATION 1. Continue current ABX. Problems: Problems: Consultation Date/Type/Reason Admit Date/Time October 15, 2016 at 02:37 Initial Consult Date Type of Consultation: ID Exam/Review of Systems Vital Signs Vitals Vital Signs Date Time Temp Pulse Resp B/P Pulse Ox O2 Delivery O2 Flow Rate FiO2 10/18/16 07:48 97.5 64 18 133/76 97 10/17/16 20:00 Nasal Cannula 2.0 Intake and Output 10/17/16 10/17/16 10/18/16 15:00 23:00 07:00 Intake Total 650 ml 1090 ml 504 ml Output Total 470 ml 701 ml Balance 650 ml 620 ml -197 ml Results Result Diagram: 10/18/16 0510 10/18/16 1500 Results 24 hrs Laboratory Tests Test 10/17/16 17:27 10/17/16 22:00 10/17/16 22:20 10/18/16 05:10 Bedside Glucose 173 156 Urine Color LT. YELLOW Urine Clarity CLEAR Urine pH 6.0 Urine Specific [place] 1.010 Urine Ketones NEGATIVE Urine Nitrite NEGATIVE Urine Bilirubin NEGATIVE Urine Urobilinogen 0.2 E.U./dL Urine Leukocyte Esterase 1+ H Urine Microscopic RBC 0-2 Urine Microscopic WBC 5-10 Urine Squamous Epithelial Cells MODERATE Urine Bacteria MODERATE Urine Yeast MANY Urine Hemoglobin TRACE Urine Random Creatinine 16.97 L Urine Random Sodium 38 Urine Glucose NEGATIVE Urine Total Protein 93.0 H White Blood Count 2.4 #L Red Blood Count 2.88 L Hemoglobin 8.6 L Hematocrit 25.7 L Mean Corpuscular Volume 89.2 Mean Corpuscular Hemoglobin 29.9 Mean Corpuscular Hemoglobin Concent 33.5 Red Cell Distribution Width 15.1 H Platelet Count 154 Mean Platelet Volume 9.3 Neutrophils % 42.5 Lymphocytes % 36.6 Monocytes % 10.9 Eosinophils % 9.2 H Basophils % 0.8 Nucleated Red Blood Cells % 0.0 Neutrophils # 1.0 L Lymphocytes # 0.9 Monocytes # 0.3 Eosinophils # 0.2 Basophils # 0.0 Nucleated Red Blood Cells # 0.0 Sodium Level 133 L Potassium Level 5.8 H Chloride Level 111 H Carbon Dioxide Level 20 L Anion Gap 8 Blood Urea Nitrogen 42 H Creatinine 2.21 H Glucose Level 139 # Calcium Level 7.5 L Phosphorus Level 6.2 H Magnesium Level 2.2 Test 10/18/16 08:02 10/18/16 12:29 10/18/16 15:00 Bedside Glucose 157 125 Sodium Level 137 Potassium Level 5.8 H Chloride Level 116 H Carbon Dioxide Level 22 Anion Gap 5 L Blood Urea Nitrogen 41 H Creatinine 2.38 H Glucose Level 111 Calcium Level 7.5 L Medications Medications Current Medications Hydralazine HCl (Apresoline) 50 mg TID PO Last administered on 10/18/16 12:44 ; Admin Dose 50 MG; Start 10/15/16 at 09:00 Levothyroxine Sodium (Synthroid) 75 mcg DAILY@06 PO Last administered on 06:43; Admin Dose 75 MCG; Start 10/15/16 at 06:00 Acetaminophen/ Hydrocodone Bitart ([place] (10/325)) 1 tab Q4H PRN PO PAIN Last administered on 10/16/16 18:41; Admin Dose 1 TAB; Start 10/15/16 at 03:30 Diagnostic Test (Pha) (Accu-Chek) 1 ea 02 XX ; Start 10/16/16 at 02:00 Nifedipine (Procardia Xl) 60 mg BID PO Last administered on 10/18/16 09:15; Admin Dose 60 MG; Start 10/15/16 at 09:00 Miscellaneous Information 1 ea NOTE XX ; Start 10/15/16 at 03:45 Glucose (Glutose) 15 gm Q15M PRN PO DECREASED GLUCOSE; Start 10/15/16 at 03:45 Glucose (Glutose) 22.5 gm Q15M PRN PO DECREASED GLUCOSE Last administered on 12:16; Admin Dose 22.5 GM; Start 10/15/16 at 03:45 Dextrose (D50w Syringe) 25 ml Q15M PRN IV DECREASED GLUCOSE; Start 10/15/16 at 03:45 Dextrose (D50w Syringe) 50 ml Q15M PRN IV DECREASED GLUCOSE Last administered on 10/15/16 22:16; Admin Dose 50 ML; Start 10/15/16 at 03:45 Glucagon (Glucagen) 1 mg Q15M PRN IM DECREASED GLUCOSE; Start 10/15/16 at 03:45 Glucose (Glutose) 15 gm Q15M PRN BUCCAL DECREASED GLUCOSE Last administered on 10/15/16 19:46; Admin Dose 15 GM; Start 10/15/16 at 03:45 Hydralazine HCl (Apresoline) 10 mg Q4H PRN IV SBP ABOVE 160mmHg Last administered on 10/15/16 17:41; Admin Dose 10 MG; Start 10/15/16 at 05:00 Trimethobenzamide HCl 200 mg 200 mg Q6H PRN IM NAUSEA AND/OR VOMITING; Start at 15:30 Ondansetron HCl/ Dextrose (Zofran Inj/D5W) 54 ml @ 108 mls/hr Q6H PRN IV NAUSEA AND/OR VOMITING Last administered on 10/18/16 02:33; Admin Dose 108 MLS/ HR; Start 10/15/16 at 15:30 Lorazepam (Ativan) 1 mg Q4H PRN IV ANXIETY Last administered on 10/18/16 09:16 ; Admin Dose 1 MG; Start 10/15/16 at 21:00 Morphine Sulfate (morphine) 2 mg Q4H PRN IV PAIN Last administered on 15:46; Admin Dose 2 MG; Start 10/16/16 at 11:30 Pantoprazole (Protonix Tab) 40 mg DAILY@06 PO Last administered on 10/18/16 06 :43; Admin Dose 40 MG; Start 10/17/16 at 06:00 Heparin Sodium (Porcine) (Heparin (5000 Units/0.5 ml)) 5,000 unit BID SC Last administered on 10/18/16 09:07; Admin Dose 5,000 UNIT; Start 10/16/16 at 21:00 Docusate Sodium (Colace) 100 mg BID PO Last administered on 10/18/16 09:14; Admin Dose 100 MG; Start 10/16/16 at 21:00 Senna (Senokot) 1 tab BID PO Last administered on 10/18/16 09:14; Admin Dose 1 TAB; Start 10/16/16 at 21:00 Fluconazole (Diflucan) 100 mg DAILY PO Last administered on 10/18/16 09:14; Admin Dose 100 MG; Start 10/18/16 at 09:00 JAMIR SERNA NP October 18, 2016 17:17
[2016-10-18 20:16] VITALS: BP 118/68; RESP 20
[2016-10-19] MEDS: ACCU-CHEK XX SCH (02:00)
[2016-10-19] MEDS: morphine 4 MG/ML VIAL IV PRN ×5 (03:34→20:38)
[2016-10-19] MEDS: LEVOTHYROXINE 75 MCG TAB PO SCH (05:22)
[2016-10-19] MEDS: PANTOPRAZOLE (EC) 40 MG TAB PO SCH (05:22)
[2016-10-19] MEDS: LORAZEPAM 2 MG INJ IV PRN ×3 (05:23→22:22)
[2016-10-19] MEDS: FUROSEMIDE 40 MG INJ IV SCH ×2 (05:24→17:14)
[2016-10-19 05:50] LABS: ADD SCAN DIFF NO
[2016-10-19 05:58] LABS: BASOPHILS % 0.8 % (0.0-2.0); EOSINOPHILS # 0.3 10^3/ul (0.0-0.5); EOSINOPHILS % 11.6 % (0.0-7.0); HEMATOCRIT 24.2 % (42.0-52.0); HEMOGLOBIN 8.2 g/dl (14.0-18.0); LYMPHOCYTES # 0.8 10^3/ul (0.8-2.9); LYMPHOCYTES % 31.4 % (15.0-51.0); MEAN CORPUSCULAR HEMOGLOBIN 30.1 pg (29.0-33.0); MEAN CORPUSCULAR HGB CONC 33.9 g/dl (32.0-37.0); MEAN PLATELET VOLUME 9.6 fl (7.4-10.4); MONOCYTE # 0.2 10^3/ul (0.3-0.9); MONOCYTES % 8.3 % (0.0-11.0); NEUTROPHIL # 1.2 10^3/ul (1.6-7.5); NEUTROPHILS % 47.9 % (39.0-77.0); PLATELET COUNT 140 10^3/UL (140-415); RED BLOOD COUNT 2.72 10^6/ul (4.70-6.10); RED CELL DISTRIBUTION WIDTH 15.1 % (11.5-14.5); WHITE BLOOD COUNT 2.4 10^3/ul (4.8-10.8)
[2016-10-19 06:18] LABS: CALCIUM 7.6 mg/dl (8.4-10.2); CREATININE 2.32 mg/dl (0.61-1.24)
[2016-10-19 06:19] LABS: MAGNESIUM 2.3 mg/dl (1.7-2.5); PHOSPHORUS 6.7 mg/dl (2.5-4.9)
[2016-10-19 07:15] LABS: POTASSIUM 6.4 mmol/L (3.5-5.1)
[2016-10-19 07:35] VITALS: BP 118/71; RESP 18
[2016-10-19] MEDS: INSULIN ASPART [NOVOLOG] 3 ML PEN SC SCH ×4 (08:13→20:26)
[2016-10-19] MEDS: SENNA TAB PO SCH ×2 (08:16→20:25)
[2016-10-19] MEDS: DOCUSATE SODIUM 100 MG CAP PO SCH ×2 (08:16→20:25)
[2016-10-19] MEDS: FLUCONAZOLE 100 MG TAB PO SCH (08:16)
[2016-10-19] MEDS: NIFEdipine (XL) 60 MG TAB PO SCH ×2 (08:16→20:26)
[2016-10-19] MEDS: HEPARIN 5,000 UNIT/0.5 ML VIAL SC SCH ×2 (08:28→20:31)
[2016-10-19] MEDS ORDERED: NA POLYST SULFON 15 GM/60 ML BTL PO ONE ×3 (09:00→23:00)
[2016-10-19] MEDS ORDERED: ACETAZOLAMIDE 500 MG INJ IV SCH (09:30)
--- NOTE | 2016-10-19 10:31 | PN ---
Date/Time of Note Date/Time of Note DATE: 10/19/16 TIME: 10:28 Assessment/Plan VTE Prophylaxis VTE Prophylaxis Intervention: heparin Lines/Catheters IV [facility] Type [facility] Urinary Cath still in place: No Assessment/Plan Chief Complaint/Hosp Course ASSESSMENT AND PLAN: This is a 56-year-old male with a history of VRE conjunctivitis, hypothyroidism, diabetic retinopathy, psoas abscess, laminectomy , spinal osteomyelitis, hepatitis C, chronic kidney disease, transferred from outside hospital due to insurance purposes because of pyelonephritis. 1. Pyelonephritis- improving. Ucx = + Katharina glabarata. - Continue fluconazale. Follow up final culture results. Tylenol p.r.n. for pain and fevers. - F/u PT consult as well. 2. 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 - monitor, f/u ID recommendations. 3. History of VRE right conjunctivitis. No present issues. Continue to monitor for now, f/u ID rec's. 4. History of diabetic retinopathy. Continue to monitor for now. 5. History of hypothyroidism. Continue Levoxyl. 6. Hypertension. Blood pressure is on the high normal range. - Continue nifedipine and hydralazine p.o. He is also on hydralazine IV p.r.n. greater than 160. 7. History of benign prostatic hypertrophy. Continue to monitor for now. 8. History of hepatitis C. No present issues. No fevers. Continue to monitor for now. 9. Gastrointestinal prophylaxis. PPI. 10. Deep venous thrombosis prophylaxis. Heparin subq. 11. History of type 2 diabetes, cautiously continue insulin for now, given his hypoglycemia. He is off of his aspart for now. 12. CKD - stage 4 - f/u renal rec's, monitor UO. Cr still elevated. 13. hyperkalemia - kayexlate, f/u renal rec's 14Dispo: when high k+ improved, and will need antifungal for tx of pyelo. Problems: Subjective 24 Hr Interval Summary Free Text/Dictation Pt given kayexlate for high K+. No acute events overnight. Exam/Review of Systems Vital Signs Vitals Vital Signs Date Time Temp Pulse Resp B/P Pulse Ox O2 Delivery O2 Flow Rate FiO2 10/19/16 07:35 98.4 63 18 118/71 94 10/17/16 20:00 Nasal Cannula 2.0 Intake and Output 10/18/16 10/18/16 10/19/16 15:00 23:00 07:00 Intake Total 200 ml 380 ml 94 ml Output Total 1000 ml 1200 ml Balance 200 ml -620 ml -1106 ml Exam GENERAL: The patient lying in bed sleeping. No acute distress. HEENT: Pupils equal, round, reactive to light. Extraocular muscles intact. NECK: Supple, no thyromegaly. LUNGS: Clear to auscultation bilaterally. CARDIOVASCULAR: S1, S2 heard. No rubs or gallops. ABDOMEN: Soft, nontender, nondistended. Normal bowel sounds. No rebound or guarding. MUSCULOSKELETAL: Trace pitting edema bilateral lower extremities to the ankles. NEUROLOGIC: No focal deficits. Results Result Diagram: 10/19/16 0505 10/19/16 0740 Results 24 hrs Laboratory Tests Test 10/18/16 12:29 10/18/16 15:00 10/18/16 17:35 10/18/16 21:15 Bedside Glucose 125 114 138 Sodium Level 137 Potassium Level 5.8 H Chloride Level 116 H Carbon Dioxide Level 22 Anion Gap 5 L Blood Urea Nitrogen 41 H Creatinine 2.38 H Glucose Level 111 Calcium Level 7.5 L Test 10/19/16 05:05 10/19/16 07:40 10/19/16 08:09 White Blood Count 2.4 L Red Blood Count 2.72 L Hemoglobin 8.2 L Hematocrit 24.2 L Mean Corpuscular Volume 89.0 Mean Corpuscular Hemoglobin 30.1 Mean Corpuscular Hemoglobin Concent 33.9 Red Cell Distribution Width 15.1 H Platelet Count 140 Mean Platelet Volume 9.6 Neutrophils % 47.9 Lymphocytes % 31.4 Monocytes % 8.3 Eosinophils % 11.6 H Basophils % 0.8 Nucleated Red Blood Cells % 0.0 Neutrophils # 1.2 L Lymphocytes # 0.8 Monocytes # 0.2 L Eosinophils # 0.3 Basophils # 0.0 Nucleated Red Blood Cells # 0.0 Sodium Level 139 Potassium Level 6.4 *H 6.2 *H Chloride Level 110 Carbon Dioxide Level 21 Anion Gap 14 # Blood Urea Nitrogen 44 H Creatinine 2.32 H Glucose Level 105 Calcium Level 7.6 L Phosphorus Level 6.7 H Magnesium Level 2.3 Bedside Glucose 101 Medications Medications Current Medications Hydralazine HCl (Apresoline) 50 mg TID PO Last administered on 10/19/16 08:16 ; Admin Dose 50 MG; Start 10/15/16 at 09:00 Levothyroxine Sodium (Synthroid) 75 mcg DAILY@06 PO Last administered on 05:22; Admin Dose 75 MCG; Start 10/15/16 at 06:00 Acetaminophen/ Hydrocodone Bitart ([place] (10/325)) 1 tab Q4H PRN PO PAIN Last administered on 10/16/16 18:41; Admin Dose 1 TAB; Start 10/15/16 at 03:30 Diagnostic Test (Pha) (Accu-Chek) 1 ea 02 XX ; Start 10/16/16 at 02:00 Nifedipine (Procardia Xl) 60 mg BID PO Last administered on 10/19/16 08:16; Admin Dose 60 MG; Start 10/15/16 at 09:00 Miscellaneous Information 1 ea NOTE XX ; Start 10/15/16 at 03:45 Glucose (Glutose) 15 gm Q15M PRN PO DECREASED GLUCOSE; Start 10/15/16 at 03:45 Glucose (Glutose) 22.5 gm Q15M PRN PO DECREASED GLUCOSE Last administered on 12:16; Admin Dose 22.5 GM; Start 10/15/16 at 03:45 Dextrose (D50w Syringe) 25 ml Q15M PRN IV DECREASED GLUCOSE; Start 10/15/16 at 03:45 Dextrose (D50w Syringe) 50 ml Q15M PRN IV DECREASED GLUCOSE Last administered on 10/15/16 22:16; Admin Dose 50 ML; Start 10/15/16 at 03:45 Glucagon (Glucagen) 1 mg Q15M PRN IM DECREASED GLUCOSE; Start 10/15/16 at 03:45 Glucose (Glutose) 15 gm Q15M PRN BUCCAL DECREASED GLUCOSE Last administered on 10/15/16 19:46; Admin Dose 15 GM; Start 10/15/16 at 03:45 Hydralazine HCl (Apresoline) 10 mg Q4H PRN IV SBP ABOVE 160mmHg Last administered on 10/15/16 17:41; Admin Dose 10 MG; Start 10/15/16 at 05:00 Trimethobenzamide HCl 200 mg 200 mg Q6H PRN IM NAUSEA AND/OR VOMITING; Start at 15:30 Ondansetron HCl/ Dextrose (Zofran Inj/D5W) 54 ml @ 108 mls/hr Q6H PRN IV NAUSEA AND/OR VOMITING Last administered on 10/18/16 23:57; Admin Dose 108 MLS/ HR; Start 10/15/16 at 15:30 Lorazepam (Ativan) 1 mg Q4H PRN IV ANXIETY Last administered on 10/19/16 05:23 ; Admin Dose 1 MG; Start 10/15/16 at 21:00 Morphine Sulfate (morphine) 2 mg Q4H PRN IV PAIN Last administered on 08:19; Admin Dose 2 MG; Start 10/16/16 at 11:30 Pantoprazole (Protonix Tab) 40 mg DAILY@06 PO Last administered on 10/19/16 05 :22; Admin Dose 40 MG; Start 10/17/16 at 06:00 Heparin Sodium (Porcine) (Heparin (5000 Units/0.5 ml)) 5,000 unit BID SC Last administered on 10/19/16 08:28; Admin Dose 5,000 UNIT; Start 10/16/16 at 21:00 Docusate Sodium (Colace) 100 mg BID PO Last administered on 10/19/16 08:16; Admin Dose 100 MG; Start 10/16/16 at 21:00 Senna (Senokot) 1 tab BID PO Last administered on 10/19/16 08:16; Admin Dose 1 TAB; Start 10/16/16 at 21:00 Fluconazole (Diflucan) 100 mg DAILY PO Last administered on 10/19/16 08:16; Admin Dose 100 MG; Start 10/18/16 at 09:00 PHANI REYES October 19, 2016 10:31
--- NOTE | 2016-10-19 11:53 | PN ---
DATE: 10/19/2016 SUBJECTIVE: The patient is currently stable, diuresing well. The patient had multiple bowel moveme nts yesterday. No other acute events noted. No hemoptysis, hematemesis, hematochezia. OBJECTIVE: VITAL SIGNS: Blood pressure is 119/71, respirations 19, pulse 63, temperature 98.4. HEENT: Head is normocephalic. NECK: Supple. HEART: Regular rate. LUNGS: Show diminished breath sounds at the base. ABDOMEN: Soft, nontender to palpation. No rebound or guarding. EXTREMITIES: Negative for clubbing, cyanosis. Positive edema. DERMATOLOGIC: No rashes. MUSCULOSKELETAL: No joint effusions. NEUROLOGIC: No change in exam. MEDICATIONS: The patient's medications have been reviewed. LABORATORY DATA: Shows sodium 139, potassium 6.4, chloride 110, BUN 44, creatinine 4.32, calcium 7. 6, phosphorus 6.7. White count 2.4, hemoglobin 8.2, hematocrit 24.2, platelet count is 140. ASSESSMENT AND PLAN: 1. Nonoliguric acute kidney injury on top of chronic kidney disease stage IV with a previous baseli ne creatinine between 2 to 2.5 mg/dL. The etiology of acute kidney injury is secondary to hemodynam ics. Renal function appears to be currently at baseline. At this point, continue current treatment plan, supportive care, renally dose all medications. 2. Hyperkalemia. Etiology is likely secondary to acute kidney injury, chronic kidney disease. The possibility of a spurious result is also a consideration. The patient's potassium level has increa sed, despite being given diuretic therapy and Kayexalate. Plan is to repeat stat potassium level. If her levels remain elevated, we will continue medical management with diuretic therapy, redose Saundra exalate, consider calcium gluconate, insulin, dextrose. If the patient's potassium levels become un responsive to medical management, would consider starting renal replacement therapy. 3. Volume overload secondary to acute kidney injury, congestive heart failure. Continue current di uretic regimen. 4. Hyponatremia secondary to acute kidney injury, improved. Continue to monitor. 5. Mineral bone disorder. Continue to monitor calcium and phosphorus levels. 6. Chronic kidney disease stage IV secondary to diabetic nephropathy. The patient is currently in acute kidney injury as stated above. Otherwise continue disease factor modifications. 7. Anemia of chronic disease. Continue to monitor hemoglobin and hematocrit levels. Continue Epog en. 8. Pyelonephritis, continue current antibiotic regimen. 9. Vancomycin-resistant Enterococci Vancomycin conjunctivitis. Continue to monitor. 10. History of spinal osteomyelitis. 11. Diabetes. Continue current insulin regimen. 12. Hypothyroidism. Continue Synthroid. 13. History of benign prostatic hypertrophy. 14. History of hepatitis C. 15. Gastrointestinal and deep venous thrombosis prophylaxis. Continue proton pump inhibitor. May consider discontinuing heparin. Dictated By: NAE SINHA/ERICKA Conf#: [id number] DID#: [id number]
[2016-10-19 17:00] LABS: POTASSIUM 5.8 mmol/L (3.5-5.1)
[2016-10-19 17:01] LABS: CREATININE 2.54 mg/dl (0.61-1.24)
[2016-10-19 17:02] LABS: CALCIUM 7.5 mg/dl (8.4-10.2)
[2016-10-19] MEDS: ONDANSETRON INJ 8 MG in DEXTROSE 5% 50 ML IV PRN (17:14)
--- NOTE | 2016-10-19 17:59 | CONS ---
Date/Time of Note Date/Time of Note DATE: 10/19/16 TIME: 17:58 Assessment/Plan Assessment/Plan Chief Complaint/Hosp Course ID PROGRESS NOTE CURRENT ABX: Diflucan s/p Vanco + Cefepime 24H INTERVAL SUMMARY * Stable, no new issues -> Diflucan onboard * NO fevers, hx of pancytopenia - s/p treated for concern diskitis . ------ PHYSICAL EXAMINATION: VITAL SIGNS: Afebrile, VSS, NAD GENERAL: Looks comfortable HEENT: Unremarkable NECK: SNL LUNGS: Equal chest rise without dyspnea on observation HEART: RRR ABDOMEN: Soft, EXTREMITIES: Warm SKIN: Intact ID IMPRESSION: 56 yo M admit with: 1. Recurrent UTI==> yeast 2. S/p VRE right conjunctivitis. 3. CKD==> Hx HD 4. History of spinal abscess diskitis, status post surgical intervention, completed long-term antibiotics. 5 . Hx L otomastoiditis 7. Pancytopenia 8. Hx of Vancomycin-resistant Enterococci Vancomycin conjunctivitis. (-) MRSA Nares INVASIVES: PIV CURRENT ABX: Diflucan s/p Vanco + Cefepime ID RECOMMENDATION 1. Continue current ABX. . Problems: Consultation Date/Type/Reason Admit Date/Time October 15, 2016 at 02:37 Type of Consultation: ID Exam/Review of Systems Vital Signs Vitals Vital Signs Date Time Temp Pulse Resp B/P Pulse Ox O2 Delivery O2 Flow Rate FiO2 10/19/16 07:35 98.4 63 18 118/71 94 10/17/16 20:00 Nasal Cannula 2.0 Intake and Output 10/18/16 10/18/16 10/19/16 15:00 23:00 07:00 Intake Total 200 ml 380 ml 94 ml Output Total 1000 ml 1200 ml Balance 200 ml -620 ml -1106 ml Results Result Diagram: 10/19/16 0505 10/19/16 1620 Results 24 hrs Laboratory Tests Test 10/18/16 21:15 10/19/16 05:05 10/19/16 07:40 10/19/16 08:09 Bedside Glucose 138 101 White Blood Count 2.4 L Red Blood Count 2.72 L Hemoglobin 8.2 L Hematocrit 24.2 L Mean Corpuscular Volume 89.0 Mean Corpuscular Hemoglobin 30.1 Mean Corpuscular Hemoglobin Concent 33.9 Red Cell Distribution Width 15.1 H Platelet Count 140 Mean Platelet Volume 9.6 Neutrophils % 47.9 Lymphocytes % 31.4 Monocytes % 8.3 Eosinophils % 11.6 H Basophils % 0.8 Nucleated Red Blood Cells % 0.0 Neutrophils # 1.2 L Lymphocytes # 0.8 Monocytes # 0.2 L Eosinophils # 0.3 Basophils # 0.0 Nucleated Red Blood Cells # 0.0 Sodium Level 139 Potassium Level 6.4 *H 6.2 *H Chloride Level 110 Carbon Dioxide Level 21 Anion Gap 14 # Blood Urea Nitrogen 44 H Creatinine 2.32 H Glucose Level 105 Calcium Level 7.6 L Phosphorus Level 6.7 H Magnesium Level 2.3 Test 10/19/16 11:57 10/19/16 16:20 10/19/16 17:37 Bedside Glucose 94 104 Sodium Level 137 Potassium Level 5.8 H Chloride Level 114 H Carbon Dioxide Level 23 Anion Gap 6 #L Blood Urea Nitrogen 42 H Creatinine 2.54 H Glucose Level 98 Calcium Level 7.5 L Medications Medications Current Medications Hydralazine HCl (Apresoline) 50 mg TID PO Last administered on 10/19/16 12:51 ; Admin Dose 50 MG; Start 10/15/16 at 09:00 Levothyroxine Sodium (Synthroid) 75 mcg DAILY@06 PO Last administered on 05:22; Admin Dose 75 MCG; Start 10/15/16 at 06:00 Acetaminophen/ Hydrocodone Bitart ([place] (10/325)) 1 tab Q4H PRN PO PAIN Last administered on 10/16/16 18:41; Admin Dose 1 TAB; Start 10/15/16 at 03:30 Diagnostic Test (Pha) (Accu-Chek) 1 ea 02 XX ; Start 10/16/16 at 02:00 Nifedipine (Procardia Xl) 60 mg BID PO Last administered on 10/19/16 08:16; Admin Dose 60 MG; Start 10/15/16 at 09:00 Miscellaneous Information 1 ea NOTE XX ; Start 10/15/16 at 03:45 Glucose (Glutose) 15 gm Q15M PRN PO DECREASED GLUCOSE; Start 10/15/16 at 03:45 Glucose (Glutose) 22.5 gm Q15M PRN PO DECREASED GLUCOSE Last administered on 12:16; Admin Dose 22.5 GM; Start 10/15/16 at 03:45 Dextrose (D50w Syringe) 25 ml Q15M PRN IV DECREASED GLUCOSE; Start 10/15/16 at 03:45 Dextrose (D50w Syringe) 50 ml Q15M PRN IV DECREASED GLUCOSE Last administered on 10/15/16 22:16; Admin Dose 50 ML; Start 10/15/16 at 03:45 Glucagon (Glucagen) 1 mg Q15M PRN IM DECREASED GLUCOSE; Start 10/15/16 at 03:45 Glucose (Glutose) 15 gm Q15M PRN BUCCAL DECREASED GLUCOSE Last administered on 10/15/16 19:46; Admin Dose 15 GM; Start 10/15/16 at 03:45 Hydralazine HCl (Apresoline) 10 mg Q4H PRN IV SBP ABOVE 160mmHg Last administered on 10/15/16 17:41; Admin Dose 10 MG; Start 10/15/16 at 05:00 Trimethobenzamide HCl 200 mg 200 mg Q6H PRN IM NAUSEA AND/OR VOMITING; Start at 15:30 Ondansetron HCl/ Dextrose (Zofran Inj/D5W) 54 ml @ 108 mls/hr Q6H PRN IV NAUSEA AND/OR VOMITING Last administered on 10/19/16 17:14; Admin Dose 108 MLS/ HR; Start 10/15/16 at 15:30 Lorazepam (Ativan) 1 mg Q4H PRN IV ANXIETY Last administered on 10/19/16 05:23 ; Admin Dose 1 MG; Start 10/15/16 at 21:00 Morphine Sulfate (morphine) 2 mg Q4H PRN IV PAIN Last administered on 16:47; Admin Dose 2 MG; Start 10/16/16 at 11:30 Pantoprazole (Protonix Tab) 40 mg DAILY@06 PO Last administered on 10/19/16 05 :22; Admin Dose 40 MG; Start 10/17/16 at 06:00 Heparin Sodium (Porcine) (Heparin (5000 Units/0.5 ml)) 5,000 unit BID SC Last administered on 10/19/16 08:28; Admin Dose 5,000 UNIT; Start 10/16/16 at 21:00 Docusate Sodium (Colace) 100 mg BID PO Last administered on 10/19/16 08:16; Admin Dose 100 MG; Start 10/16/16 at 21:00 Senna (Senokot) 1 tab BID PO Last administered on 10/19/16 08:16; Admin Dose 1 TAB; Start 10/16/16 at 21:00 Fluconazole (Diflucan) 100 mg DAILY PO Last administered on 10/19/16 08:16; Admin Dose 100 MG; Start 10/18/16 at 09:00 Sodium Polystyrene Sulfonate (Kayexalate) 15 gm ONCE ONCE PO ; Start 10/19/16 at 18:00; Stop 10/19/16 at 18:01 JAMIR SERNA NP October 19, 2016 17:59
[2016-10-19 20:32] VITALS: BP 107/64; RESP 18
[2016-10-20] VITALS (9 sets, daily range): BP systolic 106–155; BP diastolic 67–85; PULSE 60–68; RESP 16–18
[2016-10-20] MEDS: morphine 4 MG/ML VIAL IV PRN ×6 (01:36→22:52)
[2016-10-20] MEDS: ACCU-CHEK XX SCH (02:00)
[2016-10-20] MEDS: LEVOTHYROXINE 75 MCG TAB PO SCH (05:45)
[2016-10-20] MEDS: PANTOPRAZOLE (EC) 40 MG TAB PO SCH (05:45)
[2016-10-20] MEDS: FUROSEMIDE 40 MG INJ IV SCH ×2 (05:46→17:55)
[2016-10-20 06:02] LABS: ADD SCAN DIFF NO
[2016-10-20 06:09] LABS: BASOPHILS % 0.7 % (0.0-2.0); EOSINOPHILS # 0.2 10^3/ul (0.0-0.5); EOSINOPHILS % 7.6 % (0.0-7.0); HEMATOCRIT 22.2 % (42.0-52.0); HEMOGLOBIN 7.3 g/dl (14.0-18.0); LYMPHOCYTES % 34.4 % (15.0-51.0); MEAN CORPUSCULAR HEMOGLOBIN 29.7 pg (29.0-33.0); MEAN CORPUSCULAR HGB CONC 32.9 g/dl (32.0-37.0); MEAN CORPUSCULAR VOLUME 90.2 fl (82.0-101.0); MEAN PLATELET VOLUME 9.9 fl (7.4-10.4); MONOCYTE # 0.3 10^3/ul (0.3-0.9); MONOCYTES % 9.7 % (0.0-11.0); NEUTROPHIL # 1.4 10^3/ul (1.6-7.5); NEUTROPHILS % 47.3 % (39.0-77.0); PLATELET COUNT 125 10^3/UL (140-415); RED BLOOD COUNT 2.46 10^6/ul (4.70-6.10); RED CELL DISTRIBUTION WIDTH 15.4 % (11.5-14.5); WHITE BLOOD COUNT 2.9 10^3/ul (4.8-10.8)
[2016-10-20 06:24] LABS: POTASSIUM 5.7 mmol/L (3.5-5.1)
[2016-10-20 06:26] LABS: CREATININE 2.75 mg/dl (0.61-1.24)
[2016-10-20 06:27] LABS: CALCIUM 7.2 mg/dl (8.4-10.2)
[2016-10-20 06:30] LABS: MAGNESIUM 2.2 mg/dl (1.7-2.5); PHOSPHORUS 7.6 mg/dl (2.5-4.9)
[2016-10-20] MEDS: INSULIN ASPART [NOVOLOG] 3 ML PEN SC SCH ×4 (08:26→20:56)
[2016-10-20] MEDS: NIFEdipine (XL) 60 MG TAB PO SCH ×2 (09:00→20:53)
[2016-10-20] MEDS ORDERED: EPOETIN 4000 UNITS/1 ML INJ (ESRD) SC ONE (09:00)
[2016-10-20] MEDS: HEPARIN 5,000 UNIT/0.5 ML VIAL SC SCH ×2 (09:00→21:03)
[2016-10-20] MEDS: FLUCONAZOLE 100 MG TAB PO SCH (09:13)
[2016-10-20] MEDS: SENNA TAB PO SCH ×2 (09:13→20:53)
[2016-10-20] MEDS: DOCUSATE SODIUM 100 MG CAP PO SCH ×2 (09:13→20:53)
--- NOTE | 2016-10-20 09:34 | PN ---
DATE: 10/20/2016 SUBJECTIVE: The patient remains hyperkalemic despite medical management. The patient's urinary out put has declined significantly in the last 24 hours. I spoke with the patient this morning, informi ng him that dialysis was recommended given his persistent hyperkalemia and worsening renal function with decreased urinary output. The patient understood and was recently on hemodialysis and has agre ed to do a trial of dialysis. No other events noted. OBJECTIVE: VITAL SIGNS: Blood pressure 107/64, respiration 18, pulse 61, temperature 97.5. HEENT: Head is normocephalic. NECK: Supple. HEART: Regular rate. LUNGS: Show diminished breath sounds at base. ABDOMEN: Soft, nontender to palpation without rebound or guarding. EXTREMITIES: Negative for clubbing, cyanosis. Positive edema upper extremity and lower extremity, diffuse anasarca. DERMATOLOGIC: No rashes. MUSCULOSKELETAL: No joint effusions. NEUROLOGIC: No change in exam. MEDICATIONS: The patient's medications have been reviewed. LABORATORY DATA: Shows sodium 138, potassium 5.7, chloride 117, BUN 43, creatinine 2.75, calcium 7. 2, phosphorus 7.6. White count is 2.9, hemoglobin 7.3, hematocrit 32.2, platelet count is 125. ASSESSMENT AND PLAN: 1. Nonoliguric acute kidney injury on top of chronic kidney disease stage IV, possibly stage V, wit h a baseline creatinine of 2 to 2.5 mg . Please note the patient's creatinine is grossly overe stimating his EGFR as patient is cachectic, has very little muscle mass. Given the patient's worsen ing renal function with persistent hyperkalemia that has been nonresponsive to management, the patie nt will be initiated on dialysis for solute clearance. Plan is to have a Johnathan catheter placed. Once the catheter is placed, will have dialysis today for 3 hours, taking a bath, then the calcium 2 .5. Continue to monitor closely. 2. Hypokalemia, etiology secondary to acute kidney injury, chronic kidney disease. The patient has remained hyperkalemic despite medical management. Plan is for hemodialysis for solute clearance. Will dialyze patient once the catheter is placed. Continue Kayexalate. Continue diuretic therapy a nd insulin. 3. Volume overload secondary to acute kidney injury, congestive heart failure. The patient is mini quincy responsive to diuretic therapy. Anticipate dialysis with ultrafiltration. 4. Hyponatremia secondary to acute kidney injury, improved. Continue to monitor. 5. Mineral bone disorder. The patient remains hypophosphatemic. Will start patient on phosphate b inders. 6. 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 The patient is currently i n acute kidney injury as stated above, will be initiated on dialysis. Continue to monitor. 7. Anemia of chronic disease. Will give the patient Epogen. Will transfuse 2 units PRBC with dial ysis. 8. Pyelonephritis. Continue antibiotic therapy. 9. Vancomycin-resistant Enterococcus conjunctivitis. Continue to monitor. 10. History of spinal osteomyelitis. 11. Diabetes. Continue Accu-Cheks and sliding scale. 12. Hypothyroidism. Continue Synthroid. 13. History of benign prostatic hypertrophy. 14. History of hepatitis C. 15. Gastrointestinal and deep venous thrombosis prophylaxis. Continue proton pump inhibitor and se quential leg squeezers. Dictated By: NAE SINHA/ERICKA Conf#: [id number] DID#: [id number]
[2016-10-20] MEDS ORDERED: HEPARIN 1000 UNITS/ML 10 ML INJ CATHETER SCH (10:30)
--- NOTE | 2016-10-20 10:34 | OPR ---
Date/Time of Note Date/Time of Note DATE: 10/20/16 TIME: 10:33 Operative Report Free Text/Dictation DATE OF OPERATION: 10/20/2016 SURGEON: Dex Catherine MD PREOPERATIVE DIAGNOSIS: ESRD POSTOPERATIVE DIAGNOSIS: same ANESTHESIA: Local BLOOD LOSS: minimal COMPLICATIONS: None. ACCESS: Right common femoral vein INDICATIONS: This is a 56 year-old male with renal failure requiring dialysis. Patient and family have been informed of the alternatives, risks, and benefits. Risks including but not limited to bleeding, thrombosis, embolization , myocardial infarction, , device malfunction, infection, pneumothorax, nephrotoxicity and patient has agreed to proceed. PROCEDURE: 1. Ultrasound guided access of right common femoral vein 2. Emergent Right common femoral vein non-tunneled hemodialysis catheter placement DESCRIPTION: The patient was in supine position in his bed. Bed was placed in slight Trendelenburg position and the groin was prepped and draped with sterile technique. The central catheter was flushed with heparin to ensure function of each port. Landmarks were identified and the skin entry site was chosen using ultrasound guidance. The skin And subcutaneous tissue were anesthetized with 1% lidocaine. The vein was then located with a needle with a 10 mL syringe using ultrasound guidance. The needle was then directed towards the vein and was entered. The needle position was secured and syringe was removed. The hub was occluded to prevent venous air embolus. The guidewire was passed easily and the needle was removed while the wire was held in place. A small incision was then made at the point of the wire entry. The dilator was placed over the wire and the tract gently dilated. The catheter was fed over the wire, ensuring the wire exited from the port before advancing the catheter. The catheter was inserted to the desired depth and the wire removed. Each port was aspirated to ensure adequate blood flow and then flushed with heparinized saline solution. The catheter was secured in place with a 2-0 nylon suture and a sterile dressing was applied. The patient tolerated the procedure well and was in stable condition. All instrument, sponge and needle counts were correct 2. DEX CATHERINE MD October 20, 2016 10:34
[2016-10-20] MEDS ORDERED: HEPARIN 1000 UNITS/ML 10 ML INJ CATHETER ONE (11:00)
--- NOTE | 2016-10-20 11:10 | CONS ---
DATE OF ADMISSION: 10/15/2016 DATE OF CONSULTATION: 10/20/2016 TYPE OF CONSULTATION: Vascular surgery consultation. Dear Doctors: Mr. Rios is a 56-year-old gentleman with a plethora of medical conditions and chronic kidney disea se stage IV, who has had progression of his renal failure and currently has hyperkalemia and increas ed uremia. Vascular surgery consultation was obtained for emergent hemodialysis catheter placement. REVIEW OF SYSTEMS: A 14-point review performed and negative except what is mentioned in the patient 's medical record. Patient does have some pain in his abdomen. PAST MEDICAL HISTORY: Chronic kidney disease stage IV, diabetes, diabetic retinopathy, hypothyroidi sm, spinal osteomyelitis, BPH, uremia, hepatitis C, conjunctivitis, hypothyroidism, diabetic nephrop athy, encephalopathy. PAST SURGICAL HISTORY: Status post laminectomy status post Johnathan catheter placement in the past. ALLERGIES: NO KNOWN DRUG ALLERGIES. FAMILY HISTORY: Diabetes and hypertension. SOCIAL HISTORY: History of smoking in the past; however, denies current tobacco, alcohol or illicit drug use. PHYSICAL EXAMINATION: GENERAL: Patient is alert and oriented x3, no apparent distress. HEENT: Normocephalic, atraumatic. Poor dentition. Mucosa moist. NECK: Supple. No carotid bruit. PULMONARY: Clear airway entry, bilateral bases with crackles. ABDOMEN: Soft, distended, mild diffuse tenderness in all the quadrants 2/10. Bowel sounds positive . EXTREMITIES: Lower extremities: Palpable femoral pulses, nonpalpable pedal pulses secondary to ana ma. Motor and sensory seems to be intact. Capillary refill 3 seconds. No ulcers. ASSESSMENT: 1. Chronic kidney disease stage IV, impending renal failure: It seems the patient has progression of his renal failure and requiring emergent dialysis as the patient has hyperkalemia and has low hem oglobin and hematocrit. 2. I have discussed all the findings with the patient and he understands. He agrees to proceed. 3. Optimize vascular status (BP meds, diet, nutrition, exercise, sugar control, antiplatelets). 4. We will follow the patient's progress for eventual fistula creation if needed. Discussed findings, plan and management with the primary team. Thank you for allowing us to partake in the care of your patient. Please call with any questions. Dictated By: SIMBA LAWRENCE/ERICKA Conf#: [id number] [facility]#: [id number]
--- NOTE | 2016-10-20 16:06 | CONS ---
Date/Time of Note Date/Time of Note DATE: 10/20/16 TIME: 16:06 Assessment/Plan Assessment/Plan Chief Complaint/Hosp Course ID PROGRESS NOTE CURRENT ABX: Diflucan s/p Vanco + Cefepime 24H INTERVAL SUMMARY * In HD, more awake, alert today, no complaints * NO fevers, hx of pancytopenia - s/p treated for concern diskitis . ------ PHYSICAL EXAMINATION: VITAL SIGNS: Afebrile, VSS, NAD GENERAL: Looks comfortable HEENT: Unremarkable NECK: SNL LUNGS: Equal chest rise without dyspnea on observation HEART: RRR ABDOMEN: Soft, EXTREMITIES: Warm SKIN: Intact ID IMPRESSION: 56 yo M admit with: 1. Recurrent UTI==> yeast 2. S/p VRE right conjunctivitis. 3. CKD==> Hx HD 4. History of spinal abscess diskitis, status post surgical intervention, completed long-term antibiotics. 5 . Hx L otomastoiditis 7. Pancytopenia 8. Hx of Vancomycin-resistant Enterococci Vancomycin conjunctivitis. (-) MRSA Nares INVASIVES: PIV CURRENT ABX: Diflucan s/p Vanco + Cefepime ID RECOMMENDATION 1. Continue current ABX. . Problems: Consultation Date/Type/Reason Admit Date/Time October 15, 2016 at 02:37 Type of Consultation: ID Exam/Review of Systems Vital Signs Vitals Vital Signs Date Time Temp Pulse Resp B/P Pulse Ox O2 Delivery O2 Flow Rate FiO2 10/20/16 15:50 68 10/20/16 14:20 18 10/20/16 07:50 97.3 106/67 98 10/19/16 20:38 2.0 10/17/16 20:00 Nasal Cannula Intake and Output 10/19/16 10/19/16 10/20/16 15:00 23:00 07:00 Intake Total 1408 ml Output Total 880 ml Balance 528 ml Results Result Diagram: 10/20/16 0526 10/20/16 0526 Results 24 hrs Laboratory Tests Test 10/19/16 16:20 10/19/16 17:37 10/19/16 20:23 10/19/16 20:55 Sodium Level 137 Potassium Level 5.8 H 5.8 H Chloride Level 114 H Carbon Dioxide Level 23 Anion Gap 6 #L Blood Urea Nitrogen 42 H Creatinine 2.54 H Glucose Level 98 Calcium Level 7.5 L Bedside Glucose 104 121 Test 10/20/16 05:26 10/20/16 08:04 10/20/16 11:56 White Blood Count 2.9 #L Red Blood Count 2.46 L Hemoglobin 7.3 L Hematocrit 22.2 L Mean Corpuscular Volume 90.2 Mean Corpuscular Hemoglobin 29.7 Mean Corpuscular Hemoglobin Concent 32.9 Red Cell Distribution Width 15.4 H Platelet Count 125 L Mean Platelet Volume 9.9 Neutrophils % 47.3 Lymphocytes % 34.4 Monocytes % 9.7 Eosinophils % 7.6 H Basophils % 0.7 Nucleated Red Blood Cells % 0.0 Neutrophils # 1.4 L Lymphocytes # 1.0 Monocytes # 0.3 Eosinophils # 0.2 Basophils # 0.0 Nucleated Red Blood Cells # 0.0 Sodium Level 138 Potassium Level 5.7 H Chloride Level 117 H Carbon Dioxide Level 21 Anion Gap 6 L Blood Urea Nitrogen 43 H Creatinine 2.75 H Glucose Level 154 Calcium Level 7.2 L Phosphorus Level 7.6 H Magnesium Level 2.2 Bedside Glucose 151 152 Medications Medications Current Medications Hydralazine HCl (Apresoline) 50 mg TID PO Last administered on 10/19/16 12:51 ; Admin Dose 50 MG; Start 10/15/16 at 09:00 Levothyroxine Sodium (Synthroid) 75 mcg DAILY@06 PO Last administered on 05:45; Admin Dose 75 MCG; Start 10/15/16 at 06:00 Acetaminophen/ Hydrocodone Bitart (Willard (10/325)) 1 tab Q4H PRN PO PAIN Last administered on 10/16/16 18:41; Admin Dose 1 TAB; Start 10/15/16 at 03:30 Diagnostic Test (Pha) (Accu-Chek) 1 ea 02 XX ; Start 10/16/16 at 02:00 Nifedipine (Procardia Xl) 60 mg BID PO Last administered on 10/19/16 08:16; Admin Dose 60 MG; Start 10/15/16 at 09:00 Miscellaneous Information 1 ea NOTE XX ; Start 10/15/16 at 03:45 Glucose (Glutose) 15 gm Q15M PRN PO DECREASED GLUCOSE; Start 10/15/16 at 03:45 Glucose (Glutose) 22.5 gm Q15M PRN PO DECREASED GLUCOSE Last administered on 12:16; Admin Dose 22.5 GM; Start 10/15/16 at 03:45 Dextrose (D50w Syringe) 25 ml Q15M PRN IV DECREASED GLUCOSE; Start 10/15/16 at 03:45 Dextrose (D50w Syringe) 50 ml Q15M PRN IV DECREASED GLUCOSE Last administered on 10/15/16 22:16; Admin Dose 50 ML; Start 10/15/16 at 03:45 Glucagon (Glucagen) 1 mg Q15M PRN IM DECREASED GLUCOSE; Start 10/15/16 at 03:45 Glucose (Glutose) 15 gm Q15M PRN BUCCAL DECREASED GLUCOSE Last administered on 10/15/16 19:46; Admin Dose 15 GM; Start 10/15/16 at 03:45 Hydralazine HCl (Apresoline) 10 mg Q4H PRN IV SBP ABOVE 160mmHg Last administered on 10/15/16 17:41; Admin Dose 10 MG; Start 10/15/16 at 05:00 Trimethobenzamide HCl 200 mg 200 mg Q6H PRN IM NAUSEA AND/OR VOMITING; Start at 15:30 Ondansetron HCl/ Dextrose (Zofran Inj/D5W) 54 ml @ 108 mls/hr Q6H PRN IV NAUSEA AND/OR VOMITING Last administered on 10/19/16 17:14; Admin Dose 108 MLS/ HR; Start 10/15/16 at 15:30 Lorazepam (Ativan) 1 mg Q4H PRN IV ANXIETY Last administered on 10/19/16 22:22 ; Admin Dose 1 MG; Start 10/15/16 at 21:00 Morphine Sulfate (morphine) 2 mg Q4H PRN IV PAIN Last administered on 13:44; Admin Dose 2 MG; Start 10/16/16 at 11:30 Pantoprazole (Protonix Tab) 40 mg DAILY@06 PO Last administered on 10/20/16 05 :45; Admin Dose 40 MG; Start 10/17/16 at 06:00 Heparin Sodium (Porcine) (Heparin (5000 Units/0.5 ml)) 5,000 unit BID SC Last administered on 10/19/16 20:31; Admin Dose 5,000 UNIT; Start 10/16/16 at 21:00 Docusate Sodium (Colace) 100 mg BID PO Last administered on 10/20/16 09:13; Admin Dose 100 MG; Start 10/16/16 at 21:00 Senna (Senokot) 1 tab BID PO Last administered on 10/20/16 09:13; Admin Dose 1 TAB; Start 10/16/16 at 21:00 Fluconazole (Diflucan) 100 mg DAILY PO Last administered on 10/20/16 09:13; Admin Dose 100 MG; Start 10/18/16 at 09:00 JAMIR SERNA NP October 20, 2016 16:06
[2016-10-20] MEDS: LORAZEPAM 2 MG INJ IV PRN (17:22)
--- NOTE | 2016-10-20 17:49 | PN ---
Date/Time of Note Date/Time of Note DATE: 10/20/16 TIME: 17:48 Assessment/Plan VTE Prophylaxis VTE Prophylaxis Intervention: SCD's Lines/Catheters IV [facility] [facility] Urinary Cath still in place: No Assessment/Plan Chief Complaint/Hosp Course 1. Nonoliguric acute kidney injury on top of chronic kidney disease stage IV. The patient on hemodialysis. Status post perm-A-Cath placement. 2. Urinary tract infection. On antimicrobials. No evidence of any septic shock. 3. Recent spinal abscess with MRSA. Status post surgery on 07/12/2016. 4. Benign prostatic hypertrophy. Continue medications. 5. Recent left mastoid opacification without associated effusions compatible with osteomyelitis. Status post antibiotic therapy. 6. Normocytic normochromic anemia, most probably anemia of end-stage renal disease. Continue to monitor H and H closely. Transfuse as needed. 7. Hypothyroidism. Continue Synthroid. 8. Essential hypertension. Continue antihypertensives. 9. Diabetes mellitus. Latest hemoglobin A1c 6.0. Blood sugars well controlled on insulin. 10. Hyperkalemia. Continue hemodialysis as per nephrology. 11. Fluid, electrolytes and nutrition. Low cholesterol diet. 12. Deep venous thrombosis prophylaxis. Bilateral SCDs. 13. Gastrointestinal prophylaxis. Proton pump inhibitors. PLAN: Continue hemodialysis as per nephrology. Case discussed with Dr. Hernandez. Problems: Subjective 24 Hr Interval Summary Free Text/Dictation The patient getting HD. Exam/Review of Systems Vital Signs Vitals Vital Signs Date Time Temp Pulse Resp B/P Pulse Ox O2 Delivery O2 Flow Rate FiO2 10/20/16 17:20 63 10/20/16 14:20 18 10/20/16 08:00 2.0 10/20/16 07:50 97.3 106/67 98 10/17/16 20:00 Nasal Cannula Intake and Output 10/19/16 10/19/16 10/20/16 15:00 23:00 07:00 Intake Total 1408 ml Output Total 880 ml Balance 528 ml Exam GENERAL: This is a frail-looking male lying in bed in no apparent distress. HEENT: Head normocephalic and atraumatic. Eyes: Anicteric sclerae. Conjunctivae clear. ENT: Nasal septum is midline. Oral mucosa is dry. NECK: Supple. No JVD noticed. RESPIRATORY: Bilaterally clear to auscultation. No adventitious breath sounds heard. No use of accessory muscles of respiration. CARDIAC: Regular rate and rhythm. No murmurs heard. ABDOMEN: Soft, nontender and nondistended. Bowel sounds positive in all 4 quadrants. GENITOURINARY: The patient has a Cox catheter in place. EXTREMITIES: No cyanosis, no clubbing. Bilateral lower extremity 1+ pitting edema. Peripheral pulses on the lower extremities are diminished. NEUROLOGIC: The patient is awake, alert and oriented. Cranial nerves are grossly intact. Results Result Diagram: 10/20/1652510/20/16525 Results 24 hrs Laboratory Tests Test 10/19/16 20:23 10/19/16 20:55 10/20/16 05:26 10/20/16 08:04 Bedside Glucose 121 151 Potassium Level 5.8 H 5.7 H White Blood Count 2.9 #L Red Blood Count 2.46 L Hemoglobin 7.3 L Hematocrit 22.2 L Mean Corpuscular Volume 90.2 Mean Corpuscular Hemoglobin 29.7 Mean Corpuscular Hemoglobin Concent 32.9 Red Cell Distribution Width 15.4 H Platelet Count 125 L Mean Platelet Volume 9.9 Neutrophils % 47.3 Lymphocytes % 34.4 Monocytes % 9.7 Eosinophils % 7.6 H Basophils % 0.7 Nucleated Red Blood Cells % 0.0 Neutrophils # 1.4 L Lymphocytes # 1.0 Monocytes # 0.3 Eosinophils # 0.2 Basophils # 0.0 Nucleated Red Blood Cells # 0.0 Sodium Level 138 Chloride Level 117 H Carbon Dioxide Level 21 Anion Gap 6 L Blood Urea Nitrogen 43 H Creatinine 2.75 H Glucose Level 154 Calcium Level 7.2 L Phosphorus Level 7.6 H Magnesium Level 2.2 Test 10/20/16 11:56 10/20/16 17:21 Bedside Glucose 152 184 Medications Medications Current Medications Hydralazine HCl (Apresoline) 50 mg TID PO Last administered on 10/19/16 12:51 ; Admin Dose 50 MG; Start 10/15/16 at 09:00 Levothyroxine Sodium (Synthroid) 75 mcg DAILY@06 PO Last administered on 05:45; Admin Dose 75 MCG; Start 10/15/16 at 06:00 Acetaminophen/ Hydrocodone Bitart (Sunburst (10/325)) 1 tab Q4H PRN PO PAIN Last administered on 10/16/16 18:41; Admin Dose 1 TAB; Start 10/15/16 at 03:30 Diagnostic Test (Pha) (Accu-Chek) 1 ea 02 XX ; Start 10/16/16 at 02:00 Nifedipine (Procardia Xl) 60 mg BID PO Last administered on 10/19/16 08:16; Admin Dose 60 MG; Start 10/15/16 at 09:00 Miscellaneous Information 1 ea NOTE XX ; Start 10/15/16 at 03:45 Glucose (Glutose) 15 gm Q15M PRN PO DECREASED GLUCOSE; Start 10/15/16 at 03:45 Glucose (Glutose) 22.5 gm Q15M PRN PO DECREASED GLUCOSE Last administered on 12:16; Admin Dose 22.5 GM; Start 10/15/16 at 03:45 Dextrose (D50w Syringe) 25 ml Q15M PRN IV DECREASED GLUCOSE; Start 10/15/16 at 03:45 Dextrose (D50w Syringe) 50 ml Q15M PRN IV DECREASED GLUCOSE Last administered on 10/15/16 22:16; Admin Dose 50 ML; Start 10/15/16 at 03:45 Glucagon (Glucagen) 1 mg Q15M PRN IM DECREASED GLUCOSE; Start 10/15/16 at 03:45 Glucose (Glutose) 15 gm Q15M PRN BUCCAL DECREASED GLUCOSE Last administered on 10/15/16 19:46; Admin Dose 15 GM; Start 10/15/16 at 03:45 Hydralazine HCl (Apresoline) 10 mg Q4H PRN IV SBP ABOVE 160mmHg Last administered on 10/15/16 17:41; Admin Dose 10 MG; Start 10/15/16 at 05:00 Trimethobenzamide HCl 200 mg 200 mg Q6H PRN IM NAUSEA AND/OR VOMITING; Start at 15:30 Ondansetron HCl/ Dextrose (Zofran Inj/D5W) 54 ml @ 108 mls/hr Q6H PRN IV NAUSEA AND/OR VOMITING Last administered on 10/19/16 17:14; Admin Dose 108 MLS/ HR; Start 10/15/16 at 15:30 Lorazepam (Ativan) 1 mg Q4H PRN IV ANXIETY Last administered on 10/20/16 17:22 ; Admin Dose 1 MG; Start 10/15/16 at 21:00 Morphine Sulfate (morphine) 2 mg Q4H PRN IV PAIN Last administered on 13:44; Admin Dose 2 MG; Start 10/16/16 at 11:30 Pantoprazole (Protonix Tab) 40 mg DAILY@06 PO Last administered on 10/20/16 05 :45; Admin Dose 40 MG; Start 10/17/16 at 06:00 Heparin Sodium (Porcine) (Heparin (5000 Units/0.5 ml)) 5,000 unit BID SC Last administered on 10/19/16 20:31; Admin Dose 5,000 UNIT; Start 10/16/16 at 21:00 Docusate Sodium (Colace) 100 mg BID PO Last administered on 10/20/16 09:13; Admin Dose 100 MG; Start 10/16/16 at 21:00 Senna (Senokot) 1 tab BID PO Last administered on 10/20/16 09:13; Admin Dose 1 TAB; Start 10/16/16 at 21:00 Fluconazole (Diflucan) 100 mg DAILY PO Last administered on 10/20/16 09:13; Admin Dose 100 MG; Start 10/18/16 at 09:00 YONIS PATEL NP October 20, 2016 17:49
[2016-10-21] VITALS (10 sets, daily range): BP systolic 127–147; BP diastolic 57–79; PULSE 65–94; RESP 18
[2016-10-21] MEDS: ACCU-CHEK XX SCH (02:00)
[2016-10-21] MEDS: morphine 4 MG/ML VIAL IV PRN ×5 (04:11→23:53)
[2016-10-21 05:31] LABS: ADD SCAN DIFF NO
[2016-10-21 05:38] LABS: BASOPHILS % 0.3 % (0.0-2.0); EOSINOPHILS # 0.2 10^3/ul (0.0-0.5); EOSINOPHILS % 7.2 % (0.0-7.0); HEMATOCRIT 29.1 % (42.0-52.0); HEMOGLOBIN 10.1 g/dl (14.0-18.0); LYMPHOCYTES # 0.6 10^3/ul (0.8-2.9); LYMPHOCYTES % 20.1 % (15.0-51.0); MEAN CORPUSCULAR HEMOGLOBIN 30.4 pg (29.0-33.0); MEAN CORPUSCULAR HGB CONC 34.7 g/dl (32.0-37.0); MEAN CORPUSCULAR VOLUME 87.7 fl (82.0-101.0); MEAN PLATELET VOLUME 9.6 fl (7.4-10.4); MONOCYTE # 0.3 10^3/ul (0.3-0.9); MONOCYTES % 11.2 % (0.0-11.0); NEUTROPHIL # 1.9 10^3/ul (1.6-7.5); NEUTROPHILS % 60.9 % (39.0-77.0); PLATELET COUNT 114 10^3/UL (140-415); RED BLOOD COUNT 3.32 10^6/ul (4.70-6.10); RED CELL DISTRIBUTION WIDTH 14.4 % (11.5-14.5)
[2016-10-21] MEDS: LEVOTHYROXINE 75 MCG TAB PO SCH (05:49)
[2016-10-21] MEDS: PANTOPRAZOLE (EC) 40 MG TAB PO SCH (05:49)
[2016-10-21] MEDS: FUROSEMIDE 40 MG INJ IV SCH ×2 (05:51→17:55)
[2016-10-21 05:54] LABS: MAGNESIUM 1.9 mg/dl (1.7-2.5); PHOSPHORUS 5.9 mg/dl (2.5-4.9)
[2016-10-21 05:56] LABS: POTASSIUM 4.2 mmol/L (3.5-5.1)
[2016-10-21 05:58] LABS: CREATININE 2.03 mg/dl (0.61-1.24)
[2016-10-21 05:59] LABS: CALCIUM 7.4 mg/dl (8.4-10.2)
[2016-10-21] MEDS: INSULIN ASPART [NOVOLOG] 3 ML PEN SC SCH ×4 (08:07→21:00)
[2016-10-21] MEDS: LORAZEPAM 2 MG INJ IV PRN (08:49)
[2016-10-21] MEDS: NIFEdipine (XL) 60 MG TAB PO SCH ×2 (08:51→21:13)
[2016-10-21] MEDS: FLUCONAZOLE 100 MG TAB PO SCH (08:51)
[2016-10-21] MEDS: DOCUSATE SODIUM 100 MG CAP PO SCH ×2 (08:52→21:00)
[2016-10-21] MEDS: SENNA TAB PO SCH ×2 (08:52→21:00)
[2016-10-21] MEDS: HEPARIN 5,000 UNIT/0.5 ML VIAL SC SCH ×2 (08:59→21:15)
--- NOTE | 2016-10-21 10:10 | PN ---
Date/Time of Note Date/Time of Note DATE: 10/21/16 TIME: 10:09 Assessment/Plan VTE Prophylaxis VTE Prophylaxis Intervention: heparin, SCD's Lines/Catheters IV Catheter Type (from [facility]): renetta catheter Urinary Cath still in place: No Assessment/Plan Chief Complaint/Hosp Course 1. Nonoliguric acute kidney injury on top of chronic kidney disease stage IV. The patient on hemodialysis. Status post emergent Renetta catheter placement. 2. Urinary tract infection. On antimicrobials. No evidence of any septic shock. 3. Recent spinal abscess with MRSA. Status post surgery on 07/12/2016. 4. Benign prostatic hypertrophy. Continue medications. 5. Recent left mastoid opacification without associated effusions compatible with osteomyelitis. Status post antibiotic therapy. 6. Normocytic normochromic anemia, most probably anemia of end-stage renal disease. Continue to monitor H and H closely. Transfuse as needed. 7. Hypothyroidism. Continue Synthroid. 8. Essential hypertension. Continue antihypertensives. 9. Diabetes mellitus. Latest hemoglobin A1c 6.0. Blood sugars well controlled on insulin. 10. Hyperkalemia. Continue hemodialysis as per nephrology. 11. Fluid, electrolytes and nutrition. Low cholesterol diet. 12. Deep venous thrombosis prophylaxis. Bilateral SCDs. Subcutaneous heparin. 13. Gastrointestinal prophylaxis. Proton pump inhibitors. PLAN: Continue hemodialysis as per nephrology. Case discussed with Dr. Hernandez. Case discussed with nephrology. Problems: Subjective 24 Hr Interval Summary Free Text/Dictation Patient getting hemodialysis. Complains of generalized body pain. Exam/Review of Systems Vital Signs Vitals Vital Signs Date Time Temp Pulse Resp B/P Pulse Ox O2 Delivery O2 Flow Rate FiO2 10/21/16 08:21 98.2 87 18 97 10/21/16 06:13 2.0 10/17/16 20:00 Nasal Cannula Intake and Output 10/20/16 10/20/16 10/21/16 15:00 23:00 07:00 Intake Total 1500 ml 700 ml Output Total 500 ml 3950 ml 1400 ml Balance -500 ml -2450 ml -700 ml Exam GENERAL: This is a frail-looking male lying in bed in no apparent distress. HEENT: Head normocephalic and atraumatic. Eyes: Anicteric sclerae. Conjunctivae clear. ENT: Nasal septum is midline. Oral mucosa is dry. NECK: Supple. No JVD noticed. RESPIRATORY: Bilaterally clear to auscultation. No adventitious breath sounds heard. No use of accessory muscles of respiration. CARDIAC: Regular rate and rhythm. No murmurs heard. ABDOMEN: Soft, nontender and nondistended. Bowel sounds positive in all 4 quadrants. GENITOURINARY: The patient has a Cox catheter in place. EXTREMITIES: No cyanosis, no clubbing. Bilateral lower extremity 1+ pitting edema. Peripheral pulses on the lower extremities are diminished. NEUROLOGIC: The patient is awake, alert and oriented. Cranial nerves are grossly intact. Results Result Diagram: 10/21/16 0500 10/21/16 0500 Results 24 hrs Laboratory Tests Test 10/20/16 11:56 10/20/16 17:21 10/20/16 20:52 10/21/16 02:09 Bedside Glucose 152 184 229 H 173 Test 10/21/16 05:00 10/21/16 07:48 10/21/16 08:03 White Blood Count 3.0 L Red Blood Count 3.32 #L Hemoglobin 10.1 #L Hematocrit 29.1 #L Mean Corpuscular Volume 87.7 Mean Corpuscular Hemoglobin 30.4 Mean Corpuscular Hemoglobin Concent 34.7 Red Cell Distribution Width 14.4 Platelet Count 114 L Mean Platelet Volume 9.6 Neutrophils % 60.9 Lymphocytes % 20.1 Monocytes % 11.2 H Eosinophils % 7.2 H Basophils % 0.3 Nucleated Red Blood Cells % 0.0 Neutrophils # 1.9 Lymphocytes # 0.6 L Monocytes # 0.3 Eosinophils # 0.2 Basophils # 0.0 Nucleated Red Blood Cells # 0.0 Sodium Level 141 Potassium Level 4.2 Chloride Level 113 H Carbon Dioxide Level 24 Anion Gap 8 Blood Urea Nitrogen 29 #H Creatinine 2.03 H Glucose Level 151 Calcium Level 7.4 L Phosphorus Level 5.9 H Magnesium Level 1.9 Lab Scanned Report BLOOD TRANSFUSION Bedside Glucose 150 Medications Medications Current Medications Hydralazine HCl (Apresoline) 50 mg TID PO Last administered on 10/21/16 08:51 ; Admin Dose 50 MG; Start 10/15/16 at 09:00 Levothyroxine Sodium (Synthroid) 75 mcg DAILY@06 PO Last administered on 05:49; Admin Dose 75 MCG; Start 10/15/16 at 06:00 Acetaminophen/ Hydrocodone Bitart ([place] (10)) 1 tab Q4H PRN PO PAIN Last administered on 10/16/16 18:41; Admin Dose 1 TAB; Start 10/15/16 at 03:30 Diagnostic Test (Pha) (Accu-Chek) 1 ea 02 XX ; Start 10/16/16 at 02:00 Nifedipine (Procardia Xl) 60 mg BID PO Last administered on 10/21/16 08:51; Admin Dose 60 MG; Start 10/15/16 at 09:00 Miscellaneous Information 1 ea NOTE XX ; Start 10/15/16 at 03:45 Glucose (Glutose) 15 gm Q15M PRN PO DECREASED GLUCOSE; Start 10/15/16 at 03:45 Glucose (Glutose) 22.5 gm Q15M PRN PO DECREASED GLUCOSE Last administered on 12:16; Admin Dose 22.5 GM; Start 10/15/16 at 03:45 Dextrose (D50w Syringe) 25 ml Q15M PRN IV DECREASED GLUCOSE; Start 10/15/16 at 03:45 Dextrose (D50w Syringe) 50 ml Q15M PRN IV DECREASED GLUCOSE Last administered on 10/15/16 22:16; Admin Dose 50 ML; Start 10/15/16 at 03:45 Glucagon (Glucagen) 1 mg Q15M PRN IM DECREASED GLUCOSE; Start 10/15/16 at 03:45 Glucose (Glutose) 15 gm Q15M PRN BUCCAL DECREASED GLUCOSE Last administered on 10/15/16 19:46; Admin Dose 15 GM; Start 10/15/16 at 03:45 Hydralazine HCl (Apresoline) 10 mg Q4H PRN IV SBP ABOVE 160mmHg Last administered on 10/15/16 17:41; Admin Dose 10 MG; Start 10/15/16 at 05:00 Trimethobenzamide HCl 200 mg 200 mg Q6H PRN IM NAUSEA AND/OR VOMITING; Start at 15:30 Ondansetron HCl/ Dextrose (Zofran Inj/D5W) 54 ml @ 108 mls/hr Q6H PRN IV NAUSEA AND/OR VOMITING Last administered on 10/19/16 17:14; Admin Dose 108 MLS/ HR; Start 10/15/16 at 15:30 Lorazepam (Ativan) 1 mg Q4H PRN IV ANXIETY Last administered on 10/21/16 08:49 ; Admin Dose 1 MG; Start 10/15/16 at 21:00 Morphine Sulfate (morphine) 2 mg Q4H PRN IV PAIN Last administered on 09:56; Admin Dose 2 MG; Start 10/16/16 at 11:30 Pantoprazole (Protonix Tab) 40 mg DAILY@06 PO Last administered on 10/21/16 05 :49; Admin Dose 40 MG; Start 10/17/16 at 06:00 Heparin Sodium (Porcine) (Heparin (5000 Units/0.5 ml)) 5,000 unit BID SC Last administered on 10/21/16 08:59; Admin Dose 5,000 UNIT; Start 10/16/16 at 21:00 Docusate Sodium (Colace) 100 mg BID PO Last administered on 10/20/16 20:53; Admin Dose 100 MG; Start 10/16/16 at 21:00 Senna (Senokot) 1 tab BID PO Last administered on 10/20/16 20:53; Admin Dose 1 TAB; Start 10/16/16 at 21:00 Fluconazole (Diflucan) 100 mg DAILY PO Last administered on 10/21/16 08:51; Admin Dose 100 MG; Start 10/18/16 at 09:00 YONIS PATEL NP October 21, 2016 10:10
--- NOTE | 2016-10-21 10:14 | PN ---
DATE: 10/21/2016 SUBJECTIVE: The patient had urgent hemodialysis yesterday due to persistent hyperkalemia and develo pment of uremic signs and symptoms. The patient tolerated the procedure well with 2.8 liters removed . No other acute events noted. No hemoptysis, hematemesis or hematochezia. OBJECTIVE: VITAL SIGNS: Currently, blood pressure 155/85, respirations 18, pulse 77, temperature 97.6. HEENT: Head is normocephalic. NECK: Supple. HEART: Regular rate. LUNGS: Show diminished breath sounds at the base. ABDOMEN: Soft, nontender to palpation without guarding. EXTREMITIES: Negative for clubbing, cyanosis. Positive edema, mildly improved. DERMATOLOGIC: No rashes. MUSCULOSKELETAL: No joint effusions. NEUROLOGIC: Unchanged exam. MEDICATIONS: The patient's medications have been reviewed. LABORATORY DATA: Shows sodium 141, potassium 4.2, chloride 113, BUN 29, creatinine 2.03. White cou nt 3.9, hemoglobin 10.1, hematocrit 29.1, platelet count is 114. ASSESSMENT AND PLAN: 1. Oliguric acute kidney injury on top of chronic kidney disease stage IV, possibly stage IV with a baseline creatinine between 2 to 2.5 mg/dL. Please note, the patient's creatinine is grossly over estimating his EGFR as patient is cachectic with very little muscle mass. The patient was initiated on hemodialysis due to worsening hyperkalemia and unresponsive to medical management and developmen t of uremic symptoms. The patient tolerated dialysis well. Plan for another session of dialysis to day for 3 hours, 2K bath, calcium 2.5. 2. Hyperkalemia secondary to acute kidney injury on top of chronic kidney disease. The patient's p otassium levels have normalized with hemodialysis. Continue to monitor. Continue low-potassium t. 3. Volume overload secondary to acute kidney injury. Congestive heart failure. Continue ultrafiltr ation dialysis. 4. Hyponatremia secondary to acute kidney injury, resolved. 5. Mineral bone disorder. The patient remains hypophosphatemic. Continue phos binders. Continue hemodialysis. 6. Chronic kidney disease, stage IV/V secondary to diabetic nephropathy. The patient is currently in acute kidney injury as stated above and initiated on dialysis. Continue to monitor. Continue di sease factor modification. 7. Anemia of chronic kidney disease. The patient is status post blood transfusion, status post Epo gen. 8. Pyelonephritis. Continue IV antibiotics. 9. History of VRE conjunctivitis. Continue to monitor. 10. Diabetes. Continue Accu-Cheks and sliding scale. 11. Hypothyroidism. Continue Synthroid. 12. Benign prostatic hypertrophy. 13. History of Hepatitis C. 14. History of spinal osteomyelitis. 15. GI and deep venous thrombosis prophylaxis. Continue proton pump inhibitor and sequential leg s queezers. Dictated By: NAE SINHA/ERICKA Conf#: [id number] DID#: [id number]
[2016-10-21] MEDS ORDERED: ACETAMINOPHEN 325 MG TAB PO PRN (16:00)
[2016-10-21 16:13] LABS: MICROALBUMIN 29.2 mg/dL
[2016-10-21] MEDS: ONDANSETRON INJ 8 MG in DEXTROSE 5% 50 ML IV PRN (16:39)
--- NOTE | 2016-10-21 22:09 | PN ---
DATE: 10/21/2016 SUBJECTIVE: No events overnight. The patient is sleeping in hemodialysis. No fevers. WBC 3, platelets 114, no shift. INDWELLINGS: Right femoral Johnathan catheter placed on 10/20/2016. ANTIMICROBIALS: The patient is on fluconazole. PHYSICAL EXAMINATION: GENERAL: Chronically ill-appearing middle-aged man who is in no distress. HEENT: Head atraumatic, normocephalic. Sclerae anicteric. Buccal mucosa dry. NECK: Supple. Trachea midline. CHEST: Rise symmetrical. Breath sounds diminished to bases. HEART: S1, S2. ABDOMEN: Soft. Bowel tones present. EXTREMITIES: No cyanosis. SKIN: Positive anasarca. ASSESSMENT: 1. Acute on chronic kidney disease with worsening hyperkalemia and uremia, started on hemodialysis. 2. Urinary tract infection. 3. History of vancomycin-resistant enterococcus conjunctivitis. 4. Diabetes. 5. History of spinal abscess and osteomyelitis, completed antibiotics. 6. History of left otomastoiditis. PLAN: Remains stable. Continue present care. Continue antifungal for UTI. Follow recommendations of consultants. Dictated By: DORENE GARCIA [employer]ED FUNCTION DENTAL ASSISTANT for PARDEEP VAZQUEZ MD NI/NTS Conf#: [id number] DID#: [id number]
[2016-10-22] MEDS: ACCU-CHEK XX SCH (02:38)
[2016-10-22 05:36] LABS: ADD SCAN DIFF NO
[2016-10-22 05:47] LABS: ABNORMAL IP MESSAGE 1; BASOPHILS % 0.3 % (0.0-2.0); EOSINOPHILS # 0.1 10^3/ul (0.0-0.5); EOSINOPHILS % 1.4 % (0.0-7.0); HEMATOCRIT 27.2 % (42.0-52.0); HEMOGLOBIN 9.2 g/dl (14.0-18.0); LYMPHOCYTES # 0.7 10^3/ul (0.8-2.9); LYMPHOCYTES % 11.2 % (15.0-51.0); MEAN CORPUSCULAR HEMOGLOBIN 30.2 pg (29.0-33.0); MEAN CORPUSCULAR HGB CONC 33.8 g/dl (32.0-37.0); MEAN CORPUSCULAR VOLUME 89.2 fl (82.0-101.0); MEAN PLATELET VOLUME 9.7 fl (7.4-10.4); MONOCYTE # 0.7 10^3/ul (0.3-0.9); MONOCYTES % 10.8 % (0.0-11.0); NEUTROPHIL # 4.9 10^3/ul (1.6-7.5); RED BLOOD COUNT 3.05 10^6/ul (4.70-6.10); RED CELL DISTRIBUTION WIDTH 15.1 % (11.5-14.5); WHITE BLOOD COUNT 6.5 10^3/ul (4.8-10.8)
[2016-10-22 06:02] LABS: INR 1.47; PROTIME 17.9 Sec (12.2-14.2); PT RATIO 1.4
[2016-10-22 06:03] LABS: PARTIAL THROMBOPLASTIN TIME 46.4 Sec (25.0-35.0)
[2016-10-22] MEDS: FUROSEMIDE 40 MG INJ IV SCH ×2 (06:03→18:24)
[2016-10-22] MEDS: PANTOPRAZOLE (EC) 40 MG TAB PO SCH (06:03)
[2016-10-22] MEDS: LEVOTHYROXINE 75 MCG TAB PO SCH (06:03)
[2016-10-22 06:06] LABS: POTASSIUM 3.5 mmol/L (3.5-5.1)
[2016-10-22 06:08] LABS: CREATININE 1.74 mg/dl (0.61-1.24)
[2016-10-22 06:09] LABS: CALCIUM 7.6 mg/dl (8.4-10.2); MAGNESIUM 1.8 mg/dl (1.7-2.5); PHOSPHORUS 3.7 mg/dl (2.5-4.9)
[2016-10-22 06:17] LABS: PLATELET COUNT 83 10^3/UL (140-415)
--- NOTE | 2016-10-22 07:11 | PN ---
Date/Time of Note Date/Time of Note DATE: 10/22/16 TIME: 07:11 Assessment/Plan VTE Prophylaxis VTE Prophylaxis Intervention: heparin Lines/Catheters IV [facility]from [facility] renetta cath Urinary Cath still in place: No Assessment/Plan Chief Complaint/Hosp Course 1. Nonoliguric acute kidney injury on top of chronic kidney disease stage IV. The patient on hemodialysis. Status post emergent Renetta catheter placement. 2. Urinary tract infection. On antimicrobials. No evidence of any septic shock. 3. Recent spinal abscess with MRSA. Status post surgery on 07/12/2016. 4. Benign prostatic hypertrophy. Continue medications. 5. Recent left mastoid opacification without associated effusions compatible with osteomyelitis. Status post antibiotic therapy. 6. Normocytic normochromic anemia, most probably anemia of end-stage renal disease. Continue to monitor H and H closely. Transfuse as needed. 7. Hypothyroidism. Continue Synthroid. 8. Essential hypertension. Continue antihypertensives. 9. Diabetes mellitus. Latest hemoglobin A1c 6.0. Blood sugars well controlled on insulin. 10. Hyperkalemia. Continue hemodialysis as per nephrology. 11. Fluid, electrolytes and nutrition. Low cholesterol diet. 12. Deep venous thrombosis prophylaxis. Bilateral SCDs. Subcutaneous heparin. 13. Gastrointestinal prophylaxis. Proton pump inhibitors. PLAN: Continue hemodialysis as per nephrology. Case discussed with Dr. Hernandez. Problems: Subjective 24 Hr Interval Summary Free Text/Dictation Patient's vital signs stable. Exam/Review of Systems Vital Signs Vitals Vital Signs Date Time Temp Pulse Resp B/P Pulse Ox O2 Delivery O2 Flow Rate FiO2 10/21/16 20:00 2.0 10/21/16 19:51 98.4 89 18 128/57 94 10/21/16 17:55 Room Air Intake and Output 10/21/16 10/21/16 10/22/16 15:00 23:00 07:00 Intake Total 300 ml 240 ml Output Total 3300 ml 425 ml 500 ml Balance -3000 ml -185 ml -500 ml Exam GENERAL: This is a frail-looking male lying in bed in no apparent distress. HEENT: Head normocephalic and atraumatic. Eyes: Anicteric sclerae. Conjunctivae clear. ENT: Nasal septum is midline. Oral mucosa is dry. NECK: Supple. No JVD noticed. RESPIRATORY: Bilaterally clear to auscultation. No adventitious breath sounds heard. No use of accessory muscles of respiration. CARDIAC: Regular rate and rhythm. No murmurs heard. ABDOMEN: Soft, nontender and nondistended. Bowel sounds positive in all 4 quadrants. GENITOURINARY: The patient has a Cox catheter in place. EXTREMITIES: No cyanosis, no clubbing. Bilateral lower extremity 1+ pitting edema. Peripheral pulses on the lower extremities are diminished. NEUROLOGIC: The patient is awake, alert and oriented. Cranial nerves are grossly intact. Results Result Diagram: 10/22/1650910/22/16 0510 Results 24 hrs Laboratory Tests Test 10/21/16 07:48 10/21/16 08:03 10/21/16 11:50 10/21/16 17:33 Lab Scanned Report BLOOD TRANSFUSION Bedside Glucose 150 101 96 Test 10/21/16 21:05 10/22/16 05:10 Bedside Glucose 87 White Blood Count 6.5 # Red Blood Count 3.05 L Hemoglobin 9.2 L Hematocrit 27.2 L Mean Corpuscular Volume 89.2 Mean Corpuscular Hemoglobin 30.2 Mean Corpuscular Hemoglobin Concent 33.8 Red Cell Distribution Width 15.1 H Platelet Count 83 #L Mean Platelet Volume 9.7 Neutrophils % 76.0 Lymphocytes % 11.2 L Monocytes % 10.8 Eosinophils % 1.4 Basophils % 0.3 Nucleated Red Blood Cells % 0.0 Neutrophils # 4.9 Lymphocytes # 0.7 L Monocytes # 0.7 Eosinophils # 0.1 Basophils # 0.0 Nucleated Red Blood Cells # 0.0 Prothrombin Time 17.9 H Prothrombin Time Ratio 1.4 INR International Normalized Ratio 1.47 Activated Partial Thromboplast Time 46.4 H Sodium Level 144 Potassium Level 3.5 Chloride Level 114 H Carbon Dioxide Level 27 Anion Gap 7 L Blood Urea Nitrogen 21 H Creatinine 1.74 H Glucose Level 60 #L Calcium Level 7.6 L Phosphorus Level 3.7 # Magnesium Level 1.8 Medications Medications Current Medications Hydralazine HCl (Apresoline) 50 mg TID PO Last administered on 10/21/16 21:13 ; Admin Dose 50 MG; Start 10/15/16 at 09:00 Levothyroxine Sodium (Synthroid) 75 mcg DAILY@06 PO Last administered on 06:03; Admin Dose 75 MCG; Start 10/15/16 at 06:00 Acetaminophen/ Hydrocodone Bitart ([place] ()) 1 tab Q4H PRN PO PAIN Last administered on 10/16/16 18:41; Admin Dose 1 TAB; Start 10/15/16 at 03:30 Diagnostic Test (Pha) (Accu-Chek) 1 ea 02 XX Last administered on 10/22/16 02: 38; Admin Dose 1 EA; Start 10/16/16 at 02:00 Nifedipine (Procardia Xl) 60 mg BID PO Last administered on 10/21/16 21:13; Admin Dose 60 MG; Start 10/15/16 at 09:00 Miscellaneous Information 1 ea NOTE XX ; Start 10/15/16 at 03:45 Glucose (Glutose) 15 gm Q15M PRN PO DECREASED GLUCOSE; Start 10/15/16 at 03:45 Glucose (Glutose) 22.5 gm Q15M PRN PO DECREASED GLUCOSE Last administered on 12:16; Admin Dose 22.5 GM; Start 10/15/16 at 03:45 Dextrose (D50w Syringe) 25 ml Q15M PRN IV DECREASED GLUCOSE; Start 10/15/16 at 03:45 Dextrose (D50w Syringe) 50 ml Q15M PRN IV DECREASED GLUCOSE Last administered on 10/15/16 22:16; Admin Dose 50 ML; Start 10/15/16 at 03:45 Glucagon (Glucagen) 1 mg Q15M PRN IM DECREASED GLUCOSE; Start 10/15/16 at 03:45 Glucose (Glutose) 15 gm Q15M PRN BUCCAL DECREASED GLUCOSE Last administered on 10/15/16 19:46; Admin Dose 15 GM; Start 10/15/16 at 03:45 Hydralazine HCl (Apresoline) 10 mg Q4H PRN IV SBP ABOVE 160mmHg Last administered on 10/15/16 17:41; Admin Dose 10 MG; Start 10/15/16 at 05:00 Trimethobenzamide HCl 200 mg 200 mg Q6H PRN IM NAUSEA AND/OR VOMITING; Start at 15:30 Ondansetron HCl/ Dextrose (Zofran Inj/D5W) 54 ml @ 108 mls/hr Q6H PRN IV NAUSEA AND/OR VOMITING Last administered on 5/30/17at 16:39; Admin Dose 108 MLS/ HR; Start 10/15/16 at 15:30 Lorazepam (Ativan) 1 mg Q4H PRN IV ANXIETY Last administered on 10/21/16 08:49 ; Admin Dose 1 MG; Start 10/15/16 at 21:00 Morphine Sulfate (morphine) 2 mg Q4H PRN IV PAIN Last administered on 23:53; Admin Dose 2 MG; Start 10/16/16 at 11:30 Pantoprazole (Protonix Tab) 40 mg DAILY@06 PO Last administered on 10/22/16 06 :03; Admin Dose 40 MG; Start 10/17/16 at 06:00 Heparin Sodium (Porcine) (Heparin (5000 Units/0.5 ml)) 5,000 unit BID SC Last administered on 10/21/16 21:15; Admin Dose 5,000 UNIT; Start 10/16/16 at 21:00 Docusate Sodium (Colace) 100 mg BID PO Last administered on 10/20/16 20:53; Admin Dose 100 MG; Start 10/16/16 at 21:00 Senna (Senokot) 1 tab BID PO Last administered on 10/20/16 20:53; Admin Dose 1 TAB; Start 10/16/16 at 21:00 Fluconazole (Diflucan) 100 mg DAILY PO Last administered on 10/21/16 08:51; Admin Dose 100 MG; Start 10/18/16 at 09:00 Acetaminophen (Tylenol Tab) 650 mg Q6H PRN PO PAIN AND OR ELEVATED TEMP; Start 10/21/16 at 16:00 YONIS PATEL NP October 22, 2016 07:11
[2016-10-22] MEDS: INSULIN ASPART [NOVOLOG] 3 ML PEN SC SCH ×4 (07:51→21:00)
[2016-10-22] MEDS: morphine 4 MG/ML VIAL IV PRN ×4 (09:58→22:42)
[2016-10-22] MEDS: LINAGLIPTIN 5 MG TABLET PO SCH (10:01)
[2016-10-22] MEDS: FLUCONAZOLE 100 MG TAB PO SCH (10:02)
[2016-10-22] MEDS: DOCUSATE SODIUM 100 MG CAP PO SCH ×2 (10:02→21:00)
[2016-10-22] MEDS: SENNA TAB PO SCH ×2 (10:02→21:00)
[2016-10-22] MEDS: NIFEdipine (XL) 60 MG TAB PO SCH ×2 (10:02→21:05)
[2016-10-22] MEDS: HEPARIN 5,000 UNIT/0.5 ML VIAL SC SCH ×2 (10:03→21:11)
--- NOTE | 2016-10-22 11:57 | PN ---
DATE: 10/22/2016 SUBJECTIVE: The patient had hemodialysis yesterday, tolerated it well. The patient also noted to h ave in/out Cox catheter x1 as he had urinary retention. No other acute events noted. OBJECTIVE: VITAL SIGNS: Blood pressure is 128/57, respirations 18, pulse 89, temperature 98.4. HEENT: Head is normocephalic. NECK: Supple. HEART: Regular rate. LUNGS: Show diminished breath sounds at the base. ABDOMEN: Soft, nontender to palpation. No rebound or guarding. EXTREMITIES: Negative for clubbing, cyanosis. Positive edema, improving. DERMATOLOGIC: No rashes. MUSCULOSKELETAL: No joint effusions. NEUROLOGIC: No change in exam. MEDICATIONS: The patient's medications have been reviewed. LABORATORY DATA: Shows a white count 6.5, hemoglobin 9.2, hematocrit 27.2, platelet count is 83. S odium 144, potassium 3.5, chloride 114, BUN 21, creatinine 1.74, calcium 7.6. ASSESSMENT AND PLAN: 1. Nonoliguric acute kidney injury on top of chronic kidney disease stage IV with a baseline creati nine around 2 to 2.5 mg/dL. The patient's creatinine is overestimating his EGFR as he is quite cach ectic. The patient was initiated on hemodialysis due to persistent hyperkalemia and mild uremic sym ptoms. The patient is status post dialysis x2. Will hold hemodialysis at this time to monitor for any signs of recovery and monitor closely. 2. Hyperkalemia secondary to acute kidney injury and chronic kidney disease. Potassium level is no rmalized. Continue to monitor. Continue low-potassium diet. 3. Volume overload secondary to acute kidney injury. The patient has clinically been improving wit h ultrafiltration with hemodialysis. Continue to monitor. 4. Hypernatremia secondary to acute kidney injury, resolved. 5. Mineral bone disorder. Continue to monitor calcium and phosphorus levels. Continue phosphate b inders. 6. Chronic kidney disease, stage IV/V secondary to diabetic nephropathy. The patient is currently has acute kidney injury as stated above, has been initiated on hemodialysis. Continue to monitor. 7. Anemia of chronic disease. Monitor hemoglobin and hematocrit levels. Continue Epogen. The pat ient is status post blood transfusion. 8. Pyelonephritis. Continue IV antibiotics. 9. History of conjunctivitis. 10. Diabetes. Continue current insulin regimen. 11. Hypothyroidism. Continue Synthroid. 12. History of hepatitis C. 13. BPH. 14. History of spinal osteomyelitis. 15. Gastrointestinal and deep venous thrombosis prophylaxis. Continue PPIs and sequential leg sque ezers. Dictated By: NAE SINHA/ERICKA Conf#: [id number] DID#: [id number]
[2016-10-22] MEDS: HYDROCODONE/APAP (10/325) TAB PO PRN (12:51)
[2016-10-22 18:04] VITALS: BP 145/75
[2016-10-22 19:29] VITALS: BP 132/71; RESP 20
--- NOTE | 2016-10-22 19:30 | CONS ---
Date/Time of Note Date/Time of Note DATE: 10/22/16 TIME: 19:30 Assessment/Plan Assessment/Plan Chief Complaint/Hosp Course SUBJECTIVE: No events, looks comfortable. No fevers. ANTIMICROBIALS: Vanco, Cefepime PHYSICAL EXAMINATION: GENERAL: Chronically ill-appearing, middle-aged man who is awake, in no distress. HEENT: Head atraumatic, normocephalic. Buccal mucosa dry. NECK: Supple. CHEST: Rise symmetrical. Breath sounds clear, diminished to bases. HEART: S1, S2. ABDOMEN: Soft, bowel tones present. EXTREMITIES: Without cyanosis. ASSESSMENT: 1. Recurrent UTI==> yeast 2. S/p VRE right conjunctivitis. 3. CKD==> Hx HD 4. History of spinal abscess diskitis, status post surgical intervention, completed long-term antibiotics. 5 . Hx L otomastoiditis 7. Pancytopenia PLAN: Remains stable, will start Diflucan, dc abx DW pt/staff Problems: Consultation Date/Type/Reason Admit Date/Time October 15, 2016 at 02:37 Type of Consultation: ID Exam/Review of Systems Vital Signs Vitals Vital Signs Date Time Temp Pulse Resp B/P Pulse Ox O2 Delivery O2 Flow Rate FiO2 10/22/16 18:28 2.0 28 10/22/16 18:04 70 145/75 10/22/16 11:55 97 10/21/16 19:51 98.4 18 10/21/16 17:55 Room Air Intake and Output 10/21/16 10/21/16 10/22/16 15:00 23:00 07:00 Intake Total 300 ml 240 ml 240 ml Output Total 3300 ml 425 ml 2025 ml Balance -3000 ml -185 ml -1785 ml Results Result Diagram: 10/22/16 0510 10/22/16 0510 Results 24 hrs Laboratory Tests Test 10/21/16 21:05 10/22/16 05:10 10/22/16 12:04 10/22/16 17:18 Bedside Glucose 87 95 117 White Blood Count 6.5 # Red Blood Count 3.05 L Hemoglobin 9.2 L Hematocrit 27.2 L Mean Corpuscular Volume 89.2 Mean Corpuscular Hemoglobin 30.2 Mean Corpuscular Hemoglobin Concent 33.8 Red Cell Distribution Width 15.1 H Platelet Count 83 #L Mean Platelet Volume 9.7 Neutrophils % 76.0 Lymphocytes % 11.2 L Monocytes % 10.8 Eosinophils % 1.4 Basophils % 0.3 Nucleated Red Blood Cells % 0.0 Neutrophils # 4.9 Lymphocytes # 0.7 L Monocytes # 0.7 Eosinophils # 0.1 Basophils # 0.0 Nucleated Red Blood Cells # 0.0 Prothrombin Time 17.9 H Prothrombin Time Ratio 1.4 INR International Normalized Ratio 1.47 Activated Partial Thromboplast Time 46.4 H Sodium Level 144 Potassium Level 3.5 Chloride Level 114 H Carbon Dioxide Level 27 Anion Gap 7 L Blood Urea Nitrogen 21 H Creatinine 1.74 H Glucose Level 60 #L Calcium Level 7.6 L Phosphorus Level 3.7 # Magnesium Level 1.8 Medications Medications Current Medications Hydralazine HCl (Apresoline) 50 mg TID PO Last administered on 10/22/16 12:51 ; Admin Dose 50 MG; Start 10/15/16 at 09:00 Levothyroxine Sodium (Synthroid) 75 mcg DAILY@06 PO Last administered on 06:03; Admin Dose 75 MCG; Start 10/15/16 at 06:00 Acetaminophen/ Hydrocodone Bitart ([place] (10/325)) 1 tab Q4H PRN PO PAIN Last administered on 10/22/16 12:51; Admin Dose 1 TAB; Start 10/15/16 at 03:30 Diagnostic Test (Pha) (Accu-Chek) 1 ea 02 XX Last administered on 10/22/16 02: 38; Admin Dose 1 EA; Start 10/16/16 at 02:00 Nifedipine (Procardia Xl) 60 mg BID PO Last administered on 10/22/16 10:02; Admin Dose 60 MG; Start 10/15/16 at 09:00 Miscellaneous Information 1 ea NOTE XX ; Start 10/15/16 at 03:45 Glucose (Glutose) 15 gm Q15M PRN PO DECREASED GLUCOSE; Start 10/15/16 at 03:45 Glucose (Glutose) 22.5 gm Q15M PRN PO DECREASED GLUCOSE Last administered on 12:16; Admin Dose 22.5 GM; Start 10/15/16 at 03:45 Dextrose (D50w Syringe) 25 ml Q15M PRN IV DECREASED GLUCOSE; Start 10/15/16 at 03:45 Dextrose (D50w Syringe) 50 ml Q15M PRN IV DECREASED GLUCOSE Last administered on 10/15/16 22:16; Admin Dose 50 ML; Start 10/15/16 at 03:45 Glucagon (Glucagen) 1 mg Q15M PRN IM DECREASED GLUCOSE; Start 10/15/16 at 03:45 Glucose (Glutose) 15 gm Q15M PRN BUCCAL DECREASED GLUCOSE Last administered on 10/15/16 19:46; Admin Dose 15 GM; Start 10/15/16 at 03:45 Hydralazine HCl (Apresoline) 10 mg Q4H PRN IV SBP ABOVE 160mmHg Last administered on 10/15/16 17:41; Admin Dose 10 MG; Start 10/15/16 at 05:00 Trimethobenzamide HCl 200 mg 200 mg Q6H PRN IM NAUSEA AND/OR VOMITING; Start at 15:30 Ondansetron HCl/ Dextrose (Zofran Inj/D5W) 54 ml @ 108 mls/hr Q6H PRN IV NAUSEA AND/OR VOMITING Last administered on 10/21/16 16:39; Admin Dose 108 MLS/ HR; Start 10/15/16 at 15:30 Morphine Sulfate (morphine) 2 mg Q4H PRN IV PAIN Last administered on 18:24; Admin Dose 2 MG; Start 10/16/16 at 11:30 Pantoprazole (Protonix Tab) 40 mg DAILY@06 PO Last administered on 10/22/16 06 :03; Admin Dose 40 MG; Start 10/17/16 at 06:00 Heparin Sodium (Porcine) (Heparin (5000 Units/0.5 ml)) 5,000 unit BID SC Last administered on 10/22/16 10:03; Admin Dose 5,000 UNIT; Start 10/16/16 at 21:00 Docusate Sodium (Colace) 100 mg BID PO Last administered on 10/20/16 20:53; Admin Dose 100 MG; Start 10/16/16 at 21:00 Senna (Senokot) 1 tab BID PO Last administered on 10/20/16 20:53; Admin Dose 1 TAB; Start 10/16/16 at 21:00 Fluconazole (Diflucan) 100 mg DAILY PO Last administered on 10/22/16 10:02; Admin Dose 100 MG; Start 10/18/16 at 09:00 Acetaminophen (Tylenol Tab) 650 mg Q6H PRN PO PAIN AND OR ELEVATED TEMP; Start 10/21/16 at 16:00 Linagliptin (Tradjenta) 5 mg DAILY PO Last administered on 10/22/16t 10:01; Admin Dose 5 MG; Start 10/22/16 at 09:00 Lorazepam (Ativan) 1 mg Q4H PRN PO ANXIETY; Start 10/22/16 at 10:30 DORENE GARCIA NP October 22, 2016 19:30
[2016-10-22] MEDS: LORAZEPAM 1 MG TAB PO PRN (19:36)
--- NOTE | 2016-10-22 22:58 | CONS ---
Date/Time of Note Date/Time of Note DATE: 10/22/16 TIME: 22:57 Assessment/Plan Assessment/Plan Chief Complaint/Hosp Course SUBJECTIVE: No events overnight. Looks comfortable. No fevers. INDWELLINGS: Right femoral Johnathan catheter placed on 10/20/2016. ANTIMICROBIALS: Fluconazole. PHYSICAL EXAMINATION: GENERAL: Chronically ill-appearing middle-aged man who is in no distress. HEENT: Head atraumatic, normocephalic. Sclerae anicteric. Buccal mucosa dry. NECK: Supple. Trachea midline. CHEST: Rise symmetrical. Breath sounds diminished to bases. HEART: S1, S2. ABDOMEN: Soft. Bowel tones present. EXTREMITIES: No cyanosis. SKIN: Positive anasarca. ASSESSMENT: 1. Acute on chronic kidney disease ==> s/p hemodialysis yesterday. 2. Urinary tract infection. 3. History of vancomycin-resistant enterococcus conjunctivitis. 4. Diabetes. 5. History of spinal abscess and osteomyelitis, completed antibiotics. 6. History of left otomastoiditis. PLAN: Remains stable. Continue present care. Continue antifungal for UTI. Follow recommendations of consultants. DW staff Problems: Consultation Date/Type/Reason Admit Date/Time October 15, 2016 at 02:37 Type of Consultation: ID Exam/Review of Systems Vital Signs Vitals Vital Signs Date Time Temp Pulse Resp B/P Pulse Ox O2 Delivery O2 Flow Rate FiO2 10/22/16 19:29 98.1 64 20 132/71 96 10/22/16 19:03 2.0 10/22/16 18:28 28 10/21/16 17:55 Room Air Intake and Output 10/21/16 10/21/16 10/22/16 15:00 23:00 07:00 Intake Total 300 ml 240 ml 240 ml Output Total 3300 ml 425 ml 2025 ml Balance -3000 ml -185 ml -1785 ml Results Result Diagram: 10/22/16 0510 10/22/16 0510 Results 24 hrs Laboratory Tests Test 10/22/16 05:10 10/22/16 12:04 10/22/16 17:18 10/22/16 21:02 White Blood Count 6.5 # Red Blood Count 3.05 L Hemoglobin 9.2 L Hematocrit 27.2 L Mean Corpuscular Volume 89.2 Mean Corpuscular Hemoglobin 30.2 Mean Corpuscular Hemoglobin Concent 33.8 Red Cell Distribution Width 15.1 H Platelet Count 83 #L Mean Platelet Volume 9.7 Neutrophils % 76.0 Lymphocytes % 11.2 L Monocytes % 10.8 Eosinophils % 1.4 Basophils % 0.3 Nucleated Red Blood Cells % 0.0 Neutrophils # 4.9 Lymphocytes # 0.7 L Monocytes # 0.7 Eosinophils # 0.1 Basophils # 0.0 Nucleated Red Blood Cells # 0.0 Prothrombin Time 17.9 H Prothrombin Time Ratio 1.4 INR International Normalized Ratio 1.47 Activated Partial Thromboplast Time 46.4 H Sodium Level 144 Potassium Level 3.5 Chloride Level 114 H Carbon Dioxide Level 27 Anion Gap 7 L Blood Urea Nitrogen 21 H Creatinine 1.74 H Glucose Level 60 #L Calcium Level 7.6 L Phosphorus Level 3.7 # Magnesium Level 1.8 Bedside Glucose 95 117 88 Medications Medications Current Medications Hydralazine HCl (Apresoline) 50 mg TID PO Last administered on 10/22/16 21:05 ; Admin Dose 50 MG; Start 10/15/16 at 09:00 Levothyroxine Sodium (Synthroid) 75 mcg DAILY@06 PO Last administered on 06:03; Admin Dose 75 MCG; Start 10/15/16 at 06:00 Acetaminophen/ Hydrocodone Bitart ([place] (10/325)) 1 tab Q4H PRN PO PAIN Last administered on 10/22/16 12:51; Admin Dose 1 TAB; Start 10/15/16 at 03:30 Diagnostic Test (Pha) (Accu-Chek) 1 ea 02 XX Last administered on 10/22/16 02: 38; Admin Dose 1 EA; Start 10/16/16 at 02:00 Nifedipine (Procardia Xl) 60 mg BID PO Last administered on 10/22/16 21:05; Admin Dose 60 MG; Start 10/15/16 at 09:00 Miscellaneous Information 1 ea NOTE XX ; Start 10/15/16 at 03:45 Glucose (Glutose) 15 gm Q15M PRN PO DECREASED GLUCOSE; Start 10/15/16 at 03:45 Glucose (Glutose) 22.5 gm Q15M PRN PO DECREASED GLUCOSE Last administered on 12:16; Admin Dose 22.5 GM; Start 10/15/16 at 03:45 Dextrose (D50w Syringe) 25 ml Q15M PRN IV DECREASED GLUCOSE; Start 10/15/16 at 03:45 Dextrose (D50w Syringe) 50 ml Q15M PRN IV DECREASED GLUCOSE Last administered on 10/15/16 22:16; Admin Dose 50 ML; Start 10/15/16 at 03:45 Glucagon (Glucagen) 1 mg Q15M PRN IM DECREASED GLUCOSE; Start 10/15/16 at 03:45 Glucose (Glutose) 15 gm Q15M PRN BUCCAL DECREASED GLUCOSE Last administered on 10/15/16 19:46; Admin Dose 15 GM; Start 10/15/16 at 03:45 Hydralazine HCl (Apresoline) 10 mg Q4H PRN IV SBP ABOVE 160mmHg Last administered on 10/15/16 17:41; Admin Dose 10 MG; Start 10/15/16 at 05:00 Trimethobenzamide HCl 200 mg 200 mg Q6H PRN IM NAUSEA AND/OR VOMITING; Start at 15:30 Ondansetron HCl/ Dextrose (Zofran Inj/D5W) 54 ml @ 108 mls/hr Q6H PRN IV NAUSEA AND/OR VOMITING Last administered on 10/21/16 16:39; Admin Dose 108 MLS/ HR; Start 10/15/16 at 15:30 Morphine Sulfate (morphine) 2 mg Q4H PRN IV PAIN Last administered on 22:42; Admin Dose 2 MG; Start 10/16/16 at 11:30 Pantoprazole (Protonix Tab) 40 mg DAILY@06 PO Last administered on 10/22/16 06 :03; Admin Dose 40 MG; Start 10/17/16 at 06:00 Docusate Sodium (Colace) 100 mg BID PO Last administered on 10/20/16 20:53; Admin Dose 100 MG; Start 10/16/16 at 21:00 Senna (Senokot) 1 tab BID PO Last administered on 10/20/16 20:53; Admin Dose 1 TAB; Start 10/16/16 at 21:00 Fluconazole (Diflucan) 100 mg DAILY PO Last administered on 10/22/16 10:02; Admin Dose 100 MG; Start 10/18/16 at 09:00 Acetaminophen (Tylenol Tab) 650 mg Q6H PRN PO PAIN AND OR ELEVATED TEMP; Start 10/21/16 at 16:00 Linagliptin (Tradjenta) 5 mg DAILY PO Last administered on 10/22/16 10:01; Admin Dose 5 MG; Start 10/22/16 at 09:00 Lorazepam (Ativan) 1 mg Q4H PRN PO ANXIETY Last administered on 10/22/16 19:36 ; Admin Dose 1 MG; Start 10/22/16 at 10:30 DORENE GARCIA NP October 22, 2016 22:58
[2016-10-23] MEDS: ACCU-CHEK XX SCH (02:00)
[2016-10-23] MEDS: morphine 4 MG/ML VIAL IV PRN ×5 (03:18→21:58)
[2016-10-23] MEDS: PANTOPRAZOLE (EC) 40 MG TAB PO SCH (05:43)
[2016-10-23] MEDS: LEVOTHYROXINE 75 MCG TAB PO SCH (05:43)
[2016-10-23] MEDS: FUROSEMIDE 40 MG INJ IV SCH ×2 (05:44→17:47)
[2016-10-23 06:15] LABS: ADD SCAN DIFF NO
[2016-10-23 06:33] LABS: ABNORMAL IP MESSAGE 1; BASOPHILS % 0.3 % (0.0-2.0); EOSINOPHILS # 0.1 10^3/ul (0.0-0.5); EOSINOPHILS % 2.1 % (0.0-7.0); HEMATOCRIT 27.7 % (42.0-52.0); HEMOGLOBIN 9.4 g/dl (14.0-18.0); LYMPHOCYTES # 1.2 10^3/ul (0.8-2.9); LYMPHOCYTES % 19.7 % (15.0-51.0); MEAN CORPUSCULAR HEMOGLOBIN 29.9 pg (29.0-33.0); MEAN CORPUSCULAR HGB CONC 33.9 g/dl (32.0-37.0); MEAN CORPUSCULAR VOLUME 88.2 fl (82.0-101.0); MEAN PLATELET VOLUME 10.8 fl (7.4-10.4); MONOCYTE # 0.6 10^3/ul (0.3-0.9); MONOCYTES % 9.2 % (0.0-11.0); NEUTROPHIL # 4.2 10^3/ul (1.6-7.5); NEUTROPHILS % 68.4 % (39.0-77.0); RED BLOOD COUNT 3.14 10^6/ul (4.70-6.10); RED CELL DISTRIBUTION WIDTH 14.8 % (11.5-14.5); WHITE BLOOD COUNT 6.2 10^3/ul (4.8-10.8)
[2016-10-23 06:50] LABS: PLATELET COUNT 86 10^3/UL (140-415)
[2016-10-23 06:58] LABS: CALCIUM 7.9 mg/dl (8.4-10.2); CREATININE 1.98 mg/dl (0.61-1.24); POTASSIUM 3.6 mmol/L (3.5-5.1)
[2016-10-23 06:59] LABS: MAGNESIUM 1.8 mg/dl (1.7-2.5); PHOSPHORUS 4.5 mg/dl (2.5-4.9)
[2016-10-23 07:57] VITALS: BP 114/63; RESP 18
[2016-10-23] MEDS: INSULIN ASPART [NOVOLOG] 3 ML PEN SC SCH ×4 (08:15→21:00)
[2016-10-23] MEDS: SENNA TAB PO SCH ×2 (08:46→21:08)
[2016-10-23] MEDS: LINAGLIPTIN 5 MG TABLET PO SCH (08:46)
[2016-10-23] MEDS: FLUCONAZOLE 100 MG TAB PO SCH (08:46)
[2016-10-23] MEDS: DOCUSATE SODIUM 100 MG CAP PO SCH ×2 (08:46→21:08)
[2016-10-23] MEDS: NIFEdipine (XL) 60 MG TAB PO SCH ×2 (08:46→21:08)
[2016-10-23 08:53] VITALS: BP 109/62; PULSE 59; RESP 16
--- NOTE | 2016-10-23 08:58 | PN ---
Date/Time of Note Date/Time of Note DATE: 10/23/16 TIME: 08:56 Assessment/Plan VTE Prophylaxis VTE Prophylaxis Intervention: heparin, SCD's Lines/Catheters IV [facility]from [facility]): Johnathan cath Urinary Cath still in place: No Assessment/Plan Chief Complaint/Hosp Course 1. Nonoliguric acute kidney injury on top of chronic kidney disease stage IV. The patient on hemodialysis. Status post emergent Johnathan catheter placement. 2. Urinary tract infection. On antimicrobials. No evidence of any septic shock. 3. Recent spinal abscess with MRSA. Status post surgery on 07/12/2016. 4. Benign prostatic hypertrophy. Continue medications. 5. Recent left mastoid opacification without associated effusions compatible with osteomyelitis. Status post antibiotic therapy. 6. Normocytic normochromic anemia, most probably anemia of end-stage renal disease. Continue to monitor H and H closely. Transfuse as needed. 7. Hypothyroidism. Continue Synthroid. 8. Essential hypertension. Continue antihypertensives. 9. Diabetes mellitus. Latest hemoglobin A1c 6.0. Blood sugars well controlled on insulin. 10. Hyperkalemia. Continue hemodialysis as per nephrology. 11. Fluid, electrolytes and nutrition. Low cholesterol diet. 12. Deep venous thrombosis prophylaxis. Bilateral SCDs. Subcutaneous heparin. 13. Gastrointestinal prophylaxis. Proton pump inhibitors. PLAN: Continue hemodialysis as per nephrology. Await clearance from nephrology before discharge. Will obtain a brain CT scan to evaluate for any underlying acute infectious pathology that is causing right sided fullness in the ear. Case discussed with Dr. Hernandez. Problems: Subjective 24 Hr Interval Summary Free Text/Dictation Patient is asking for pain medications [id number]. The patient was complaining of some fullness in the right ear. 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 Exam/Review of Systems Vital Signs Vitals Vital Signs Date Time Temp Pulse Resp B/P Pulse Ox O2 Delivery O2 Flow Rate FiO2 10/23/16 08:53 59 16 109/62 Room Air 10/23/16 07:57 98.0 98 10/23/16 05:49 2.0 10/22/16 18:28 28 Intake and Output 10/22/16 10/22/16 10/23/16 15:00 23:00 07:00 Intake Total 640 ml 240 ml Output Total 950 ml 600 ml Balance -310 ml -360 ml Exam GENERAL: This is a frail-looking male lying in bed in no apparent distress. HEENT: Head normocephalic and atraumatic. Eyes: Anicteric sclerae. Conjunctivae clear. ENT: Nasal septum is midline. Oral mucosa is dry. NECK: Supple. No JVD noticed. RESPIRATORY: Bilaterally clear to auscultation. No adventitious breath sounds heard. No use of accessory muscles of respiration. CARDIAC: Regular rate and rhythm. No murmurs heard. ABDOMEN: Soft, nontender and nondistended. Bowel sounds positive in all 4 quadrants. GENITOURINARY: The patient has a Cox catheter in place. EXTREMITIES: No cyanosis, no clubbing. Bilateral lower extremity 1+ pitting edema. Peripheral pulses on the lower extremities are diminished. NEUROLOGIC: The patient is awake, alert and oriented. Cranial nerves are grossly intact. Results Result Diagram: 10/23/16 0530 10/23/16 0530 Results 24 hrs Laboratory Tests Test 10/22/16 12:04 10/22/16 17:18 10/22/16 21:02 10/23/16 05:30 Bedside Glucose 95 117 88 White Blood Count 6.2 Red Blood Count 3.14 L Hemoglobin 9.4 L Hematocrit 27.7 L Mean Corpuscular Volume 88.2 Mean Corpuscular Hemoglobin 29.9 Mean Corpuscular Hemoglobin Concent 33.9 Red Cell Distribution Width 14.8 H Platelet Count 86 L Mean Platelet Volume 10.8 H Neutrophils % 68.4 Lymphocytes % 19.7 Monocytes % 9.2 Eosinophils % 2.1 Basophils % 0.3 Nucleated Red Blood Cells % 0.0 Neutrophils # 4.2 Lymphocytes # 1.2 Monocytes # 0.6 Eosinophils # 0.1 Basophils # 0.0 Nucleated Red Blood Cells # 0.0 Sodium Level 138 Potassium Level 3.6 Chloride Level 107 Carbon Dioxide Level 27 Anion Gap 8 Blood Urea Nitrogen 24 H Creatinine 1.98 H Glucose Level 61 L Calcium Level 7.9 L Phosphorus Level 4.5 Magnesium Level 1.8 Test 10/23/16 07:54 Bedside Glucose 109 Medications Medications Current Medications Hydralazine HCl (Apresoline) 50 mg TID PO Last administered on 10/23/16t 08:45; Admin Dose 50 MG; Start 10/15/16 at 09:00 Levothyroxine Sodium (Synthroid) 75 mcg DAILY@06 PO Last administered on 05:43; Admin Dose 75 MCG; Start 10/15/16 at 06:00 Acetaminophen/ Hydrocodone Bitart ([place] (10325)) 1 tab Q4H PRN PO PAIN Last administered on 10/22/16 12:51; Admin Dose 1 TAB; Start 10/15/16 at 03:30 Diagnostic Test (Pha) (Accu-Chek) 1 ea 02 XX Last administered on 10/22/16 02: 38; Admin Dose 1 EA; Start 10/16/16 at 02:00 Nifedipine (Procardia Xl) 60 mg BID PO Last administered on 10/23/16 08:46; Admin Dose 60 MG; Start 10/15/16 at 09:00 Miscellaneous Information 1 ea NOTE XX ; Start 10/15/16 at 03:45 Glucose (Glutose) 15 gm Q15M PRN PO DECREASED GLUCOSE; Start 10/15/16 at 03:45 Glucose (Glutose) 22.5 gm Q15M PRN PO DECREASED GLUCOSE Last administered on 12:16; Admin Dose 22.5 GM; Start 10/15/16 at 03:45 Dextrose (D50w Syringe) 25 ml Q15M PRN IV DECREASED GLUCOSE; Start 10/15/16 at 03:45 Dextrose (D50w Syringe) 50 ml Q15M PRN IV DECREASED GLUCOSE Last administered on 10/15/16 22:16; Admin Dose 50 ML; Start 10/15/16 at 03:45 Glucagon (Glucagen) 1 mg Q15M PRN IM DECREASED GLUCOSE; Start 10/15/16 at 03:45 Glucose (Glutose) 15 gm Q15M PRN BUCCAL DECREASED GLUCOSE Last administered on 10/15/16 19:46; Admin Dose 15 GM; Start 10/15/16 at 03:45 Hydralazine HCl (Apresoline) 10 mg Q4H PRN IV SBP ABOVE 160mmHg Last administered on 10/15/16 17:41; Admin Dose 10 MG; Start 10/15/16 at 05:00 Trimethobenzamide HCl 200 mg 200 mg Q6H PRN IM NAUSEA AND/OR VOMITING; Start at 15:30 Ondansetron HCl/ Dextrose (Zofran Inj/D5W) 54 ml @ 108 mls/hr Q6H PRN IV NAUSEA AND/OR VOMITING Last administered on 10/21/16 16:39; Admin Dose 108 MLS/ HR; Start 10/15/16 at 15:30 Morphine Sulfate (morphine) 2 mg Q4H PRN IV PAIN Last administered on 10/23/16 08:52; Admin Dose 2 MG; Start 10/16/16 at 11:30 Pantoprazole (Protonix Tab) 40 mg DAILY@06 PO Last administered on 10/23/16 05: 43; Admin Dose 40 MG; Start 10/17/16 at 06:00 Docusate Sodium (Colace) 100 mg BID PO Last administered on 10/23/16 08:46; Admin Dose 100 MG; Start 10/16/16 at 21:00 Senna (Senokot) 1 tab BID PO Last administered on 10/23/16 08:46; Admin Dose 1 TAB; Start 10/16/16 at 21:00 Fluconazole (Diflucan) 100 mg DAILY PO Last administered on 10/23/16 08:46; Admin Dose 100 MG; Start 10/18/16 at 09:00 Acetaminophen (Tylenol Tab) 650 mg Q6H PRN PO PAIN AND OR ELEVATED TEMP; Start 10/21/16 at 16:00 Linagliptin (Tradjenta) 5 mg DAILY PO Last administered on 10/23/16 08:46; Admin Dose 5 MG; Start 10/22/16 at 09:00 Lorazepam (Ativan) 1 mg Q4H PRN PO ANXIETY Last administered on 10/22/16 19:36 ; Admin Dose 1 MG; Start 10/22/16 at 10:30 YONIS PATEL NP Oct 23, 2016 08:58
--- NOTE | 2016-10-23 10:29 | PN ---
DATE: 10/23/2016 SUBJECTIVE: The patient is stable. No events overnight. No fevers, chills, nausea, vomiting. OBJECTIVE: VITAL SIGNS: Blood pressure is 109/60, respirations 16, pulse 59, temperature 98.0. HEENT: Head is normocephalic. NECK: Supple. HEART: Regular rate. LUNGS: Show diminished breath sounds at the base. ABDOMEN: Soft, nontender to palpation. No rebound or guarding. EXTREMITIES: Negative for clubbing, cyanosis, no edema. DERMATOLOGIC: No rashes. MUSCULOSKELETAL: No joint effusions. NEUROLOGIC: No change in exam. MEDICATIONS: The patient's medications have been reviewed. LABORATORY DATA: Shows sodium 138, potassium 3.6, chloride 107, BUN 24, creatinine 1.98. White cou nt 6.2, hemoglobin 9.4, hematocrit 27.7, platelet count is 86. ASSESSMENT AND PLAN: 1. Nonoliguric acute kidney injury on top of chronic kidney disease stage IV with previous baseline creatinine 2 to 2.5 mg/dL. Etiology of acute kidney injury is possibly secondary to acute tubular necrosis. The patient was initiated on hemodialysis and has had 2 sessions. At this point, we will continue to hold hemodialysis and monitor renal function to see if there is renal recovery. Will c ontinue to monitor. 2. Please note that the patient's creatinine is markedly over estimated, the patient's EGFR is quit e cachectic. 3. Hyperkalemia secondary to acute kidney injury and chronic kidney disease, improved. Continue re nal diet. 4. Volume overload secondary to acute kidney injury. The patient near euvolemic status. We will c ontinue to monitor. 5. Hyponatremia secondary to acute kidney injury, resolved. 6. Mineral bone disorder. Monitor phosphorus levels. Continue phosphate binders. 7. Chronic kidney disease, stage IV/V secondary to diabetic nephropathy. The patient's current acu te kidney injury as stated above, currently on hemodialysis, although being held at this time to see if there is renal recovery. 8. Anemia of chronic disease. Monitor hemoglobin and hematocrit levels. Continue Epogen. 9. Pyelonephritis. Continue IV antibiotics. 10. History of conjunctivitis. 11. Diabetes. Continue Accu-Cheks and sliding scale. 12. Hypothyroidism. Continue Synthroid. 13. Benign prostatic hypertrophy. 14. GI and DVT prophylaxis. Continue proton pump inhibitor and sequential leg squeezers. Dictated By: NAE SINHA/ERICKA Conf#: [id number] DID#: [id number]
[2016-10-23 11:39] VITALS: BP 121/61; PULSE 61
[2016-10-23] MEDS: LORAZEPAM 1 MG TAB PO PRN (13:10)
--- NOTE | 2016-10-23 13:45 | PN ---
DATE: 10/23/2016 SUBJECTIVE: No acute changes. Patient is alert, feels good, looks comfortable, no fevers. Vital s igns stable. WBC 6.2, platelets 86, BUN 24, creatinine 1.98. INDWELLINGS: Left femoral Johnathan. PHYSICAL EXAMINATION: GENERAL: A cachectic, chronically ill-appearing man who is alert, in no distress. HEENT: Head atraumatic, normocephalic. Sclerae anicteric. Buccal mucosa dry. NECK: Supple. CHEST: Rise symmetrical, breath sounds clear with scattered crackles to bases. HEART: S1, S2. ABDOMEN: Soft. Bowel tones present. EXTREMITIES: No cyanosis. ASSESSMENT: 1. Status post urinary tract infection. 2. Acute on chronic kidney disease. 3. Diabetes. 4. History of spinal abscess and osteomyelitis, treated. 5. History of left otomastoiditis and conjunctivitis. PLAN: The patient remains stable. Continue on fluconazole. Follow nephrology recommendations. Dictated By: DORENE GARCIA INTERVENTION ANALYST for PARDEEP MATTA/ERICKA Conf#: [id number] DID#: [id number]
--- NOTE | 2016-10-23 13:53 | PN ---
Date/Time of Note Date/Time of Note DATE: 10/23/16 TIME: 13:49 Assessment/Plan Lines/Catheters IV Catheter Type (from [facility]): Johnathan cath Cox in Place (from [facility]): No Assessment/Plan Chief Complaint/Hosp Course -Chronic kidney disease stage IV, impending renal failure: It seems the patient had progression of his renal failure and requiring emergent dialysis S/ P Johnathan Catheter placement -Optimize vascular status (BP meds, diet, nutrition, exercise, sugar control, antiplatelets). -Will follow the patient's progress for possible access creation/perm catheter -Discussed findings, plan and management with the primary team. -Thank you for allowing us to partake in the care of your patient. Please call with any questions. Problems: Subjective 24 Hr Interval Summary no new vascular events overnight Exam/Review of Systems Vital Signs Vitals Vital Signs Date Time Temp Pulse Resp B/P Pulse Ox O2 Delivery O2 Flow Rate FiO2 10/23/16 11:39 61 121/61 96 Room Air 10/23/16 08:53 16 10/23/16 07:57 98.0 10/23/16 05:49 2.0 10/22/16 18:28 28 Intake and Output 10/22/16 10/22/16 10/23/16 15:00 23:00 07:00 Intake Total 640 ml 240 ml Output Total 950 ml 600 ml Balance -310 ml -360 ml Exam Free Text/Dictation GENERAL: Patient is alert and oriented x3, CVS:S1S2 PRESENT PULMONARY: Clear airway entry, bilateral bases with crackles. ABDOMEN: Soft, distended, mild diffuse tenderness in all the quadrants 2/10. Bowel sounds positive. EXTREMITIES: Lower extremities: Palpable femoral pulses, nonpalpable pedal pulses secondary to edema. Motor and sensory seems to be intact. Capillary refill 3 seconds. No ulcers. Upper Extremity: palpable brachial pulse, motor/sensory intact, cap refill 2 seconds Results Result Diagram: 10/23/1630 10/23/1630 SIMBA CATHERINE MD Oct 23, 2016 13:53
--- NOTE | 2016-10-23 15:29 | RADRPT ---
PROCEDURE: US bilateral upper extremity Venous. CLINICAL INDICATION: End-stage renal disease, vein mapping TECHNIQUE: Multiple sonographic images of the bilateral upper lower extremity deep an superficial venous system was obtained utilizing grayscale, color-flow, compressive sonography and doppler imagi ng with augmentation. Measurements were performed. The images were reviewed on a PACS workstation. COMPARISON: None. FINDINGS: The bilateral subclavian, axillary and brachial veins are patent. The cephalic veins and basilic ve ins are patent. RIGHT Right basilic vein size: Proximal: 5.2 mm Mid aspect: 5.2 mm Distal: 1.3 mm Right basilic vein size in the forearm: Proximal: 1.9 mm Mid aspect: 2.1 mm Distal: 2.1 mm Right cephalic vein size: Proximal: 4.6 mm Mid aspect: 4.7 mm Distal: 2.2 mm Right cephalic vein size in the forearm: Proximal: 2.1 mm Mid aspect: 3.9 mm Distal: 3.6 mm LEFT Left basilic vein size: Proximal: 6.2 mm Mid aspect: 4.8 mm Distal: 4.7 mm Left basilic vein size in the forearm: Proximal: 3.6 mm Mid aspect: 3.5 mm Distal: 2.3 mm Left cephalic vein size: Proximal: 3.6 mm Mid aspect: 3.2 mm Distal: 1.6 mm Left cephalic vein size in the forearm: Proximal: 3.2 mm Mid aspect: 2.8 mm Distal: 2.6 mm IMPRESSION: Vein mapping as described. RPTAT: AA .Dennis Ponce MD, Date Time Electronically viewed and signed by .Dennis Ponce MD, MD on 10/23/2016 15:28 .S/
--- NOTE | 2016-10-23 16:15 | RADRPT ---
PROCEDURE: US upper extremity arterial. CLINICAL INDICATION: Pain, end-stage renal disease TECHNIQUE: Multiple sonographic images of the bilateral upper extremity arteries was obtained util izing grayscale, color-flow, compressive sonography and doppler imaging. The images were reviewed o n a PACS workstation. COMPARISON: None. FINDINGS: There is calcific plaque in the bilateral radial and ulnar arteries. Velocities and waveforms were obtained as described below. Right arm Right subclavian artery: 100 cm/s; triphasic waveforms Right axillary artery: 89 cm/s; triphasic waveforms Right brachial artery: 81 cm/s; triphasic waveforms Right radial artery: 54 cm/s; triphasic waveforms Right ulnar artery: 60 cm/s; triphasic waveforms Left arm Left subclavian artery: 121 cm/s; triphasic waveforms Left axillary artery: 76 cm/s; triphasic waveforms Left brachial artery: 71 cm/s; triphasic waveforms Left radial artery: 65 cm/s; triphasic waveforms Left ulnar artery: 76 cm/s; triphasic waveforms IMPRESSION: Unremarkable bilateral upper extremity arterial Doppler ultrasound. RPTAT: AA .Dennis Ponce MD MD Date Time Electronically viewed and signed by .Dennis Ponce MD, MD on 10/23/2016 16:14 .S/
--- NOTE | 2016-10-23 16:20 | RADRPT ---
PROCEDURE: CT Head without. CLINICAL INDICATION: Right temporal pain. TECHNIQUE: The study was performed utilizing a multi-slice, multidetector CT scanner. Direct spira l 1 mm axial sections were obtained through the head without the use of intravenous contrast materia l. 1 or more of the following dose reduction techniques were utilized: Automated exposure control, adjustment of the mA and/or kV according to patient's size, iterative reconstruction technique. Co chester and sagittal reformations were obtained. The images were reviewed on a PACS workstation. RADIATION DOSE: CTDIvol: 43.2 mGyDLP: 844.9 mGy-cm COMPARISON: 09/25/2016 FINDINGS: There is no intracranial hemorrhage, extra-axial fluid collection, mass lesion, midline shift or hyd rocephalus. There is mild prominence of the cerebral sulci, lateral and third ventricles. There ar e minimal periventricular white matter lesions, likely related to early microangiopathic changes. T he herrera-white matter differentiation is preserved. The basal cisterns are patent. The midline stru ctures are intact. The orbits, calvarium and extracranial soft tissues are normal in appearance. Th e visualized paranasal sinuses, right mastoid air cells and middle ear cavities are normally aerated . There is stable complete opacification of the left mastoid air cells middle ear cavities without e vidence of coalescence to suggest mastoiditis. There are moderate atherosclerotic calcifications in the temporal fossa, concerning for possible diabetes mellitus. IMPRESSION: 1. No acute intracranial abnormality. No intracranial hemorrhage, extra-axial fluid collection, ma ss lesion or hydrocephalous. 2. Stable appearance of complete opacification of the left mastoid air cells and middle ear cavitie s, without evidence of coalescent mastoiditis. This is likely related to benign inflammatory change s. 3. Stable mild peripheral and central cerebral volume loss. 4. Stable minimal periventricular and subcortical white matter lesions, likely related to chronic m icroangiopathic changes. 5. Extensive advanced atherosclerotic calcifications of the temporal vessels, concerning for possib le diabetes mellitus. RPTAT: DD .Deniz Rausch MD, MD Date Time Electronically viewed and signed by .Deniz Rausch MD, on 10/23/2016 16:19 .S/
[2016-10-23 20:50] VITALS: BP 108/48; RESP 20
[2016-10-24] MEDS: ACCU-CHEK XX SCH (02:00)
[2016-10-24] MEDS: morphine 4 MG/ML VIAL IV PRN ×5 (03:00→20:57)
[2016-10-24 06:02] LABS: ADD SCAN DIFF NO
[2016-10-24 06:08] LABS: BASOPHILS % 0.4 % (0.0-2.0); EOSINOPHILS # 0.1 10^3/ul (0.0-0.5); EOSINOPHILS % 2.6 % (0.0-7.0); HEMATOCRIT 28.1 % (42.0-52.0); HEMOGLOBIN 9.8 g/dl (14.0-18.0); LYMPHOCYTES # 0.9 10^3/ul (0.8-2.9); LYMPHOCYTES % 18.2 % (15.0-51.0); MEAN CORPUSCULAR HEMOGLOBIN 30.5 pg (29.0-33.0); MEAN CORPUSCULAR HGB CONC 34.9 g/dl (32.0-37.0); MEAN CORPUSCULAR VOLUME 87.5 fl (82.0-101.0); MONOCYTE # 0.4 10^3/ul (0.3-0.9); MONOCYTES % 7.7 % (0.0-11.0); NEUTROPHIL # 3.6 10^3/ul (1.6-7.5); NEUTROPHILS % 70.9 % (39.0-77.0); RED BLOOD COUNT 3.21 10^6/ul (4.70-6.10); RED CELL DISTRIBUTION WIDTH 14.2 % (11.5-14.5); WHITE BLOOD COUNT 5.1 10^3/ul (4.8-10.8)
[2016-10-24 06:20] VITALS: BP 115/68; PULSE 63; RESP 16
[2016-10-24] MEDS: PANTOPRAZOLE (EC) 40 MG TAB PO SCH (06:21)
[2016-10-24] MEDS: LEVOTHYROXINE 75 MCG TAB PO SCH (06:21)
[2016-10-24] MEDS: FUROSEMIDE 40 MG INJ IV SCH ×2 (06:21→17:35)
[2016-10-24 06:23] LABS: PLATELET COUNT 106 10^3/UL (140-415)
[2016-10-24 06:38] LABS: MAGNESIUM 1.8 mg/dl (1.7-2.5); PHOSPHORUS 5.1 mg/dl (2.5-4.9)
[2016-10-24 06:49] LABS: CALCIUM 7.8 mg/dl (8.4-10.2); CREATININE 2.27 mg/dl (0.61-1.24); POTASSIUM 3.7 mmol/L (3.5-5.1)
[2016-10-24] MEDS: INSULIN ASPART [NOVOLOG] 3 ML PEN SC SCH ×4 (08:08→20:57)
[2016-10-24 08:29] VITALS: BP 136/74; RESP 18
[2016-10-24] MEDS: DOCUSATE SODIUM 100 MG CAP PO SCH ×2 (08:49→20:55)
[2016-10-24] MEDS: FLUCONAZOLE 100 MG TAB PO SCH (08:50)
[2016-10-24] MEDS: NIFEdipine (XL) 60 MG TAB PO SCH ×2 (08:50→20:56)
[2016-10-24] MEDS: SENNA TAB PO SCH ×2 (08:50→20:55)
[2016-10-24] MEDS: LINAGLIPTIN 5 MG TABLET PO SCH (08:50)
[2016-10-24] MEDS: LORAZEPAM 1 MG TAB PO PRN (08:52)
--- NOTE | 2016-10-24 09:49 | PN ---
DATE: 10/24/2016 SUBJECTIVE: This patient is stable. No events overnight. No fevers, chills, nausea, vomiting. OBJECTIVE: VITAL SIGNS: Blood pressure is 136/74, respirations 18, pulse 82, temperature 97.7. I's and O's: The patient had 1 liter in, 1 liter out. HEENT: Head is normocephalic. NECK: Supple. HEART: Regular rate. LUNGS: Show diminished breath sounds at the bases. ABDOMEN: Soft, nontender to palpation. No rebound or guarding. EXTREMITIES: Negative for clubbing, cyanosis. Positive edema. DERMATOLOGIC: No rashes. MUSCULOSKELETAL: No joint effusions. NEUROLOGIC: No change in exam. MEDICATIONS: The patient's medications have been reviewed. LABORATORY DATA: Shows sodium 141, potassium 3.7, chloride 104, BUN 27, creatinine 2.27. White cou nt 5.8, hemoglobin 9.8, hematocrit 28.1, and platelet count is 106. Extremity ultrasound shows unre markable upper extremity arteriogram. ASSESSMENT AND PLAN: 1. Nonoliguric acute kidney injury on top of chronic kidney disease stage IV/V with a baseline crea tinine around 2 to 2.5 mg/dL. Etiology of acute kidney injury is secondary to acute tubular necrosi s. The patient was initiated on hemodialysis, had 2 sessions. At this point, we will continue to h old hemodialysis to see if patient's renal function should return back to previous baseline. We andrews l continue to monitor. Please note also that the patient's creatinine is markedly overestimating hi s EGFR as patient is cachectic. 2. Hyperkalemia secondary to acute kidney injury, chronic kidney disease, improved. 3. Volume overload secondary to acute kidney injury. Continue to monitor. 4. Hyponatremia, resolved. 5. Mineral bone syndrome. The patient is hypophosphatemic. We will start phosphate binders 800 mg t.i.d. 6. 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 The patient is in acute ki dney injury as stated above. Continue to monitor. 7. Anemia of chronic disease. Monitor hemoglobin and hematocrit levels. Continue Epogen. 8. Pyelonephritis. Continue IV antibiotics. 9. Diabetes. Continue Accu-Cheks and insulin sliding scale. 10. Hypothyroidism. Continue Synthroid. 11. Benign prostatic hypertrophy. 12. Gastrointestinal and deep venous thrombosis prophylaxis. Continue proton pump inhibitor and se quential leg squeezers. Dictated By: NAE SINHA/ERICKA Conf#: [id number] DID#: [id number]
--- NOTE | 2016-10-24 09:57 | PN ---
Date/Time of Note Date/Time of Note DATE: 10/24/16 TIME: 09:55 Assessment/Plan VTE Prophylaxis VTE Prophylaxis Intervention: heparin Lines/Catheters IV [facility]ter [facility] (from [facility]): TAYLA CATHETER Urinary Cath still in place: No Assessment/Plan Chief Complaint/Hosp Course 1. Nonoliguric acute kidney injury on top of chronic kidney disease stage IV. The patient was on hemodialysis. Status post emergent Tayla catheter placement. Currently HD on hold because of improving renal function. 2. Urinary tract infection. On antimicrobials. No evidence of any septic shock. 3. Recent spinal abscess with MRSA. Status post surgery on 07/12/2016. 4. Benign prostatic hypertrophy. Continue medications. 5. Recent left mastoid opacification without associated effusions compatible with osteomyelitis. Status post antibiotic therapy. 6. Normocytic normochromic anemia, most probably anemia of end-stage renal disease. Continue to monitor H and H closely. Transfuse as needed. 7. Hypothyroidism. Continue Synthroid. 8. Essential hypertension. Continue antihypertensives. 9. Diabetes mellitus. Latest hemoglobin A1c 6.0. Blood sugars well controlled on insulin. 10. Hyperkalemia. Resolved. Monitor. 11. Fluid, electrolytes and nutrition. Low cholesterol, carbohydrate controlled diet. 12. Deep venous thrombosis prophylaxis. Bilateral SCDs. Subcutaneous heparin. 13. Gastrointestinal prophylaxis. Proton pump inhibitors. PLAN: Hemodialysis on hold as per nephrology. Await clearance from nephrology before discharge. Case discussed with Dr. Hernandez. Problems: Subjective 24 Hr Interval Summary Free Text/Dictation Feeling well. Exam/Review of Systems Vital Signs Vitals Vital Signs Date Time Temp Pulse Resp B/P Pulse Ox O2 Delivery O2 Flow Rate FiO2 10/24/16 08:29 97.7 82 18 136/74 97 10/24/16 06:20 Room Air 10/24/16 02:50 2.0 10/22/16 18:28 28 Intake and Output 10/23/16 10/23/16 10/24/16 15:00 23:00 07:00 Intake Total 1100 ml Output Total 1000 ml Balance 100 ml Exam GENERAL: This is a frail-looking male lying in bed in no apparent distress. HEENT: Head normocephalic and atraumatic. Eyes: Anicteric sclerae. Conjunctivae clear. ENT: Nasal septum is midline. Oral mucosa is dry. NECK: Supple. No JVD noticed. RESPIRATORY: Bilaterally clear to auscultation. No adventitious breath sounds heard. No use of accessory muscles of respiration. CARDIAC: Regular rate and rhythm. No murmurs heard. ABDOMEN: Soft, nontender and nondistended. Bowel sounds positive in all 4 quadrants. GENITOURINARY: The patient has a Cox catheter in place. EXTREMITIES: No cyanosis, no clubbing. Bilateral lower extremity 1+ pitting edema. Peripheral pulses on the lower extremities are diminished. NEUROLOGIC: The patient is awake, alert and oriented. Cranial nerves are grossly intact. Results Result Diagram: 10/24/16 0507 10/24/16 0507 Results 24 hrs Laboratory Tests Test 10/23/16 12:13 10/23/16 17:30 10/23/16 21:11 10/24/16 05:07 Bedside Glucose 78 108 136 White Blood Count 5.1 Red Blood Count 3.21 L Hemoglobin 9.8 L Hematocrit 28.1 L Mean Corpuscular Volume 87.5 Mean Corpuscular Hemoglobin 30.5 Mean Corpuscular Hemoglobin Concent 34.9 Red Cell Distribution Width 14.2 Platelet Count 106 #L Mean Platelet Volume 10.0 Neutrophils % 70.9 Lymphocytes % 18.2 Monocytes % 7.7 Eosinophils % 2.6 Basophils % 0.4 Nucleated Red Blood Cells % 0.0 Neutrophils # 3.6 Lymphocytes # 0.9 Monocytes # 0.4 Eosinophils # 0.1 Basophils # 0.0 Nucleated Red Blood Cells # 0.0 Sodium Level 141 Potassium Level 3.7 Chloride Level 104 Carbon Dioxide Level 27 Anion Gap 14 Blood Urea Nitrogen 27 H Creatinine 2.27 H Glucose Level 95 Calcium Level 7.8 L Phosphorus Level 5.1 H Magnesium Level 1.8 Test 10/24/16 07:57 Bedside Glucose 100 Medications Medications Current Medications Hydralazine HCl (Apresoline) 50 mg TID PO Last administered on 10/24/16 08:49; Admin Dose 50 MG; Start 10/15/16 at 09:00 Levothyroxine Sodium (Synthroid) 75 mcg DAILY@06 PO Last administered on 06:21; Admin Dose 75 MCG; Start 10/15/16 at 06:00 Acetaminophen/ Hydrocodone Bitart ([place] (10/325)) 1 tab Q4H PRN PO PAIN Last administered on 10/22/16 12:51; Admin Dose 1 TAB; Start 10/15/16 at 03:30 Diagnostic Test (Pha) (Accu-Chek) 1 ea 02 XX Last administered on 10/22/16 02: 38; Admin Dose 1 EA; Start 10/16/16 at 02:00 Nifedipine (Procardia Xl) 60 mg BID PO Last administered on 10/24/16 08:50; Admin Dose 60 MG; Start 10/15/16 at 09:00 Miscellaneous Information 1 ea NOTE XX ; Start 10/15/16 at 03:45 Glucose (Glutose) 15 gm Q15M PRN PO DECREASED GLUCOSE; Start 10/15/16 at 03:45 Glucose (Glutose) 22.5 gm Q15M PRN PO DECREASED GLUCOSE Last administered on 12:16; Admin Dose 22.5 GM; Start 10/15/16 at 03:45 Dextrose (D50w Syringe) 25 ml Q15M PRN IV DECREASED GLUCOSE; Start 10/15/16 at 03:45 Dextrose (D50w Syringe) 50 ml Q15M PRN IV DECREASED GLUCOSE Last administered on 10/15/16 22:16; Admin Dose 50 ML; Start 10/15/16 at 03:45 Glucagon (Glucagen) 1 mg Q15M PRN IM DECREASED GLUCOSE; Start 10/15/16 at 03:45 Glucose (Glutose) 15 gm Q15M PRN BUCCAL DECREASED GLUCOSE Last administered on 10/15/16 19:46; Admin Dose 15 GM; Start 10/15/16 at 03:45 Hydralazine HCl (Apresoline) 10 mg Q4H PRN IV SBP ABOVE 160mmHg Last administered on 10/15/16 17:41; Admin Dose 10 MG; Start 10/15/16 at 05:00 Trimethobenzamide HCl 200 mg 200 mg Q6H PRN IM NAUSEA AND/OR VOMITING; Start at 15:30 Ondansetron HCl/ Dextrose (Zofran Inj/D5W) 54 ml @ 108 mls/hr Q6H PRN IV NAUSEA AND/OR VOMITING Last administered on 10/21/16 16:39; Admin Dose 108 MLS/ HR; Start 10/15/16 at 15:30 Morphine Sulfate (morphine) 2 mg Q4H PRN IV PAIN Last administered on 10/24/16 06:57; Admin Dose 2 MG; Start 10/16/16 at 11:30 Pantoprazole (Protonix Tab) 40 mg DAILY@06 PO Last administered on 10/24/16 06: 21; Admin Dose 40 MG; Start 10/17/16 at 06:00 Docusate Sodium (Colace) 100 mg BID PO Last administered on 10/24/16 08:49; Admin Dose 100 MG; Start 10/16/16 at 21:00 Senna (Senokot) 1 tab BID PO Last administered on 10/24/16 08:50; Admin Dose 1 TAB; Start 10/16/16 at 21:00 Fluconazole (Diflucan) 100 mg DAILY PO Last administered on 10/24/16 08:50; Admin Dose 100 MG; Start 10/18/16 at 09:00 Acetaminophen (Tylenol Tab) 650 mg Q6H PRN PO PAIN AND OR ELEVATED TEMP; Start 10/21/16 at 16:00 Linagliptin (Tradjenta) 5 mg DAILY PO Last administered on 10/24/16 08:50; Admin Dose 5 MG; Start 10/22/16 at 09:00 Lorazepam (Ativan) 1 mg Q4H PRN PO ANXIETY Last administered on 10/24/16 08:52 ; Admin Dose 1 MG; Start 10/22/16 at 10:30 YONIS PATEL NP Oct 24, 2016 09:57
[2016-10-24] MEDS: SEVELAMER 800 MG TAB PO SCH ×2 (12:24→17:35)
[2016-10-24 12:25] VITALS: BP 105/63; PULSE 62
--- NOTE | 2016-10-24 13:17 | CONS ---
Date/Time of Note Date/Time of Note DATE: 10/24/16 TIME: 13:16 Assessment/Plan Assessment/Plan Chief Complaint/Hosp Course SUBJECTIVE: No events overnight. alert, feels better, no fevers. INDWELLINGS: Right femoral Johnathan catheter placed on 10/20/2016. ANTIMICROBIALS: Fluconazole. PHYSICAL EXAMINATION: GENERAL: Chronically ill-appearing middle-aged man who is in no distress. HEENT: Head atraumatic, normocephalic. Sclerae anicteric. Buccal mucosa dry. NECK: Supple. Trachea midline. CHEST: Rise symmetrical. Breath sounds diminished to bases. HEART: S1, S2. ABDOMEN: Soft. Bowel tones present. EXTREMITIES: No cyanosis. SKIN: Positive anasarca. ASSESSMENT: 1. Acute on chronic kidney disease ==> s/p hemodialysis yesterday. 2. Urinary tract infection. 3. History of vancomycin-resistant enterococcus conjunctivitis. 4. Diabetes. 5. History of spinal abscess and osteomyelitis, completed antibiotics. 6. History of left otomastoiditis. PLAN: Remains stable. Continue present care. Continue antifungal for UTI. Follow recommendations of consultants. DW staff Problems: Consultation Date/Type/Reason Admit Date/Time October 15, 2016 at 02:37 Type of Consultation: ID Exam/Review of Systems Vital Signs Vitals Vital Signs Date Time Temp Pulse Resp B/P Pulse Ox O2 Delivery O2 Flow Rate FiO2 10/24/16 12:25 62 105/63 10/24/16 08:29 97.7 18 97 10/24/16 06:20 Room Air 10/24/16 02:50 2.0 10/22/16 18:28 28 Intake and Output 10/23/16 10/23/16 10/24/16 15:00 23:00 07:00 Intake Total 1100 ml Output Total 1000 ml Balance 100 ml Results Result Diagram: 10/24/16 0507 10/24/16 0507 Results 24 hrs Laboratory Tests Test 10/23/16 17:30 10/23/16 21:11 10/24/16 05:07 10/24/16 07:57 Bedside Glucose 108 136 100 White Blood Count 5.1 Red Blood Count 3.21 L Hemoglobin 9.8 L Hematocrit 28.1 L Mean Corpuscular Volume 87.5 Mean Corpuscular Hemoglobin 30.5 Mean Corpuscular Hemoglobin Concent 34.9 Red Cell Distribution Width 14.2 Platelet Count 106 #L Mean Platelet Volume 10.0 Neutrophils % 70.9 Lymphocytes % 18.2 Monocytes % 7.7 Eosinophils % 2.6 Basophils % 0.4 Nucleated Red Blood Cells % 0.0 Neutrophils # 3.6 Lymphocytes # 0.9 Monocytes # 0.4 Eosinophils # 0.1 Basophils # 0.0 Nucleated Red Blood Cells # 0.0 Sodium Level 141 Potassium Level 3.7 Chloride Level 104 Carbon Dioxide Level 27 Anion Gap 14 Blood Urea Nitrogen 27 H Creatinine 2.27 H Glucose Level 95 Calcium Level 7.8 L Phosphorus Level 5.1 H Magnesium Level 1.8 Test 10/24/16 11:56 Bedside Glucose 134 Medications Medications Current Medications Hydralazine HCl (Apresoline) 50 mg TID PO Last administered on 10/24/16 12:25; Admin Dose 50 MG; Start 10/15/16 at 09:00 Levothyroxine Sodium (Synthroid) 75 mcg DAILY@06 PO Last administered on 06:21; Admin Dose 75 MCG; Start 10/15/16 at 06:00 Acetaminophen/ Hydrocodone Bitart ([place] (10/325)) 1 tab Q4H PRN PO PAIN Last administered on 10/22/16 12:51; Admin Dose 1 TAB; Start 10/15/16 at 03:30 Diagnostic Test (Pha) (Accu-Chek) 1 ea 02 XX Last administered on 10/22/16 02: 38; Admin Dose 1 EA; Start 10/16/16 at 02:00 Nifedipine (Procardia Xl) 60 mg BID PO Last administered on 10/24/16 08:50; Admin Dose 60 MG; Start 10/15/16 at 09:00 Miscellaneous Information 1 ea NOTE XX ; Start 10/15/16 at 03:45 Glucose (Glutose) 15 gm Q15M PRN PO DECREASED GLUCOSE; Start 10/15/16 at 03:45 Glucose (Glutose) 22.5 gm Q15M PRN PO DECREASED GLUCOSE Last administered on 12:16; Admin Dose 22.5 GM; Start 10/15/16 at 03:45 Dextrose (D50w Syringe) 25 ml Q15M PRN IV DECREASED GLUCOSE; Start 10/15/16 at 03:45 Dextrose (D50w Syringe) 50 ml Q15M PRN IV DECREASED GLUCOSE Last administered on 10/15/16 22:16; Admin Dose 50 ML; Start 10/15/16 at 03:45 Glucagon (Glucagen) 1 mg Q15M PRN IM DECREASED GLUCOSE; Start 10/15/16 at 03:45 Glucose (Glutose) 15 gm Q15M PRN BUCCAL DECREASED GLUCOSE Last administered on 10/15/16 19:46; Admin Dose 15 GM; Start 10/15/16 at 03:45 Hydralazine HCl (Apresoline) 10 mg Q4H PRN IV SBP ABOVE 160mmHg Last administered on 10/15/16 17:41; Admin Dose 10 MG; Start 10/15/16 at 05:00 Trimethobenzamide HCl 200 mg 200 mg Q6H PRN IM NAUSEA AND/OR VOMITING; Start at 15:30 Ondansetron HCl/ Dextrose (Zofran Inj/D5W) 54 ml @ 108 mls/hr Q6H PRN IV NAUSEA AND/OR VOMITING Last administered on 10/21/16 16:39; Admin Dose 108 MLS/ HR; Start 10/15/16 at 15:30 Morphine Sulfate (morphine) 2 mg Q4H PRN IV PAIN Last administered on 10/24/16 11:48; Admin Dose 2 MG; Start 10/16/16 at 11:30 Pantoprazole (Protonix Tab) 40 mg DAILY@06 PO Last administered on 10/24/16 06: 21; Admin Dose 40 MG; Start 10/17/16 at 06:00 Docusate Sodium (Colace) 100 mg BID PO Last administered on 10/24/16 08:49; Admin Dose 100 MG; Start 10/16/16 at 21:00 Senna (Senokot) 1 tab BID PO Last administered on 10/24/16 08:50; Admin Dose 1 TAB; Start 10/16/16 at 21:00 Fluconazole (Diflucan) 100 mg DAILY PO Last administered on 10/24/16 08:50; Admin Dose 100 MG; Start 10/18/16 at 09:00 Acetaminophen (Tylenol Tab) 650 mg Q6H PRN PO PAIN AND OR ELEVATED TEMP; Start 10/21/16 at 16:00 Linagliptin (Tradjenta) 5 mg DAILY PO Last administered on 10/24/16 08:50; Admin Dose 5 MG; Start 10/22/16 at 09:00 Lorazepam (Ativan) 1 mg Q4H PRN PO ANXIETY Last administered on 10/24/16 08:52 ; Admin Dose 1 MG; Start 10/22/16 at 10:30 DORENE GARCIA NP Oct 24, 2016 13:17
[2016-10-24 19:27] VITALS: BP 119/71; RESP 18
[2016-10-25] MEDS: morphine 4 MG/ML VIAL IV PRN ×5 (01:11→21:59)
[2016-10-25] MEDS: ACCU-CHEK XX SCH (02:00)
[2016-10-25 05:57] VITALS: BP 113/65; PULSE 71; RESP 18
[2016-10-25] MEDS: PANTOPRAZOLE (EC) 40 MG TAB PO SCH (05:57)
[2016-10-25] MEDS: LEVOTHYROXINE 75 MCG TAB PO SCH (05:57)
[2016-10-25] MEDS: FUROSEMIDE 40 MG INJ IV SCH ×2 (05:57→17:57)
[2016-10-25 06:13] LABS: CALCIUM 7.7 mg/dl (8.4-10.2); CREATININE 2.3 mg/dl (0.61-1.24); MAGNESIUM 1.8 mg/dl (1.7-2.5); PHOSPHORUS 5.1 mg/dl (2.5-4.9); POTASSIUM 3.8 mmol/L (3.5-5.1)
[2016-10-25 07:43] VITALS: BP 122/71; RESP 18
[2016-10-25] MEDS: INSULIN ASPART [NOVOLOG] 3 ML PEN SC SCH ×4 (08:15→20:25)
[2016-10-25] MEDS: FLUCONAZOLE 100 MG TAB PO SCH (09:09)
[2016-10-25] MEDS: DOCUSATE SODIUM 100 MG CAP PO SCH ×2 (09:09→20:25)
[2016-10-25] MEDS: NIFEdipine (XL) 60 MG TAB PO SCH ×2 (09:10→20:22)
[2016-10-25] MEDS: SEVELAMER 800 MG TAB PO SCH ×3 (09:10→17:57)
[2016-10-25] MEDS: SENNA TAB PO SCH ×2 (09:10→20:25)
[2016-10-25] MEDS: LINAGLIPTIN 5 MG TABLET PO SCH (09:10)
--- NOTE | 2016-10-25 09:58 | PN ---
Date/Time of Note Date/Time of Note DATE: 10/25/16 TIME: 09:57 Assessment/Plan VTE Prophylaxis VTE Prophylaxis Intervention: heparin, SCD's Lines/Catheters IV [facility]from [facility] Urinary Cath still in place: No Assessment/Plan Chief Complaint/Hosp Course 1. Nonoliguric acute kidney injury on top of chronic kidney disease stage IV. The patient was on hemodialysis. Status post emergent Johnathan catheter placement. Currently HD on hold because of improving renal function. 2. Urinary tract infection. On antimicrobials. No evidence of any septic shock. 3. Recent spinal abscess with MRSA. Status post surgery on 07/12/2016. 4. Benign prostatic hypertrophy. Continue medications. 5. Recent left mastoid opacification without associated effusions compatible with osteomyelitis. Status post antibiotic therapy. 6. Normocytic normochromic anemia, most probably anemia of end-stage renal disease. Continue to monitor H and H closely. Transfuse as needed. 7. Hypothyroidism. Continue Synthroid. 8. Essential hypertension. Continue antihypertensives. 9. Diabetes mellitus. Latest hemoglobin A1c 6.0. Blood sugars well controlled on insulin. 10. Hyperkalemia. Resolved. Monitor. 11. Fluid, electrolytes and nutrition. Low cholesterol, carbohydrate controlled diet. 12. Deep venous thrombosis prophylaxis. Bilateral SCDs. Subcutaneous heparin. 13. Gastrointestinal prophylaxis. Proton pump inhibitors. PLAN: Hemodialysis on hold as per nephrology. Await clearance from nephrology before discharge. Case discussed with Dr. Hernandez. Problems: Subjective 24 Hr Interval Summary Free Text/Dictation No changes in status. 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 Exam/Review of Systems Vital Signs Vitals Vital Signs Date Time Temp Pulse Resp B/P Pulse Ox O2 Delivery O2 Flow Rate FiO2 10/25/16 07:43 98.8 71 18 122/71 97 10/25/16 05:57 Room Air 10/25/16 01:23 2.0 10/22/16 18:28 28 Intake and Output 10/24/16 10/24/16 10/25/16 15:00 23:00 07:00 Intake Total 600 ml 450 ml Output Total 300 ml 800 ml Balance 300 ml -350 ml Exam GENERAL: This is a frail-looking male lying in bed in no apparent distress. HEENT: Head normocephalic and atraumatic. Eyes: Anicteric sclerae. Conjunctivae clear. ENT: Nasal septum is midline. Oral mucosa is dry. NECK: Supple. No JVD noticed. RESPIRATORY: Bilaterally clear to auscultation. No adventitious breath sounds heard. No use of accessory muscles of respiration. CARDIAC: Regular rate and rhythm. No murmurs heard. ABDOMEN: Soft, nontender and nondistended. Bowel sounds positive in all 4 quadrants. GENITOURINARY: The patient has a Cox catheter in place. EXTREMITIES: No cyanosis, no clubbing. Bilateral lower extremity 1+ pitting edema. Peripheral pulses on the lower extremities are diminished. NEUROLOGIC: The patient is awake, alert and oriented. Cranial nerves are grossly intact. Results Result Diagram: 10/24/16 0507 10/25/16 0515 Results 24 hrs Laboratory Tests Test 10/24/16 11:56 10/24/16 17:15 10/24/16 20:54 10/25/16 05:15 Bedside Glucose 134 145 166 Sodium Level 140 Potassium Level 3.8 Chloride Level 106 Carbon Dioxide Level 25 Anion Gap 13 Blood Urea Nitrogen 30 H Creatinine 2.30 H Glucose Level 108 Calcium Level 7.7 L Phosphorus Level 5.1 H Magnesium Level 1.8 Test 10/25/16 08:08 Bedside Glucose 113 Medications Medications Current Medications Hydralazine HCl (Apresoline) 50 mg TID PO Last administered on 10/25/16 09:10; Admin Dose 50 MG; Start 10/15/16 at 09:00 Levothyroxine Sodium (Synthroid) 75 mcg DAILY@06 PO Last administered on 05:57; Admin Dose 75 MCG; Start 10/15/16 at 06:00 Acetaminophen/ Hydrocodone Bitart ([place] (10/325)) 1 tab Q4H PRN PO PAIN Last administered on 10/22/16 12:51; Admin Dose 1 TAB; Start 10/15/16 at 03:30 Diagnostic Test (Pha) (Accu-Chek) 1 ea 02 XX Last administered on 10/22/16 02: 38; Admin Dose 1 EA; Start 10/16/16 at 02:00 Nifedipine (Procardia Xl) 60 mg BID PO Last administered on 10/25/16 09:10; Admin Dose 60 MG; Start 10/15/16 at 09:00 Miscellaneous Information 1 ea NOTE XX ; Start 10/15/16 at 03:45 Glucose (Glutose) 15 gm Q15M PRN PO DECREASED GLUCOSE; Start 10/15/16 at 03:45 Glucose (Glutose) 22.5 gm Q15M PRN PO DECREASED GLUCOSE Last administered on 12:16; Admin Dose 22.5 GM; Start 10/15/16 at 03:45 Dextrose (D50w Syringe) 25 ml Q15M PRN IV DECREASED GLUCOSE; Start 10/15/16 at 03:45 Dextrose (D50w Syringe) 50 ml Q15M PRN IV DECREASED GLUCOSE Last administered on 10/15/16 22:16; Admin Dose 50 ML; Start 10/15/16 at 03:45 Glucagon (Glucagen) 1 mg Q15M PRN IM DECREASED GLUCOSE; Start 10/15/16 at 03:45 Glucose (Glutose) 15 gm Q15M PRN BUCCAL DECREASED GLUCOSE Last administered on 10/15/16 19:46; Admin Dose 15 GM; Start 10/15/16 at 03:45 Hydralazine HCl (Apresoline) 10 mg Q4H PRN IV SBP ABOVE 160mmHg Last administered on 10/15/16 17:41; Admin Dose 10 MG; Start 10/15/16 at 05:00 Trimethobenzamide HCl 200 mg 200 mg Q6H PRN IM NAUSEA AND/OR VOMITING; Start at 15:30 Ondansetron HCl/ Dextrose (Zofran Inj/D5W) 54 ml @ 108 mls/hr Q6H PRN IV NAUSEA AND/OR VOMITING Last administered on 10/21/16 16:39; Admin Dose 108 MLS/ HR; Start 10/15/16 at 15:30 Morphine Sulfate (morphine) 2 mg Q4H PRN IV PAIN Last administered on 10/25/16 09:11; Admin Dose 2 MG; Start 10/16/16 at 11:30 Pantoprazole (Protonix Tab) 40 mg DAILY@06 PO Last administered on 10/25/16 05: 57; Admin Dose 40 MG; Start 10/17/16 at 06:00 Docusate Sodium (Colace) 100 mg BID PO Last administered on 10/25/16 09:09; Admin Dose 100 MG; Start 10/16/16 at 21:00 Senna (Senokot) 1 tab BID PO Last administered on 10/25/16 09:10; Admin Dose 1 TAB; Start 10/16/16 at 21:00 Fluconazole (Diflucan) 100 mg DAILY PO Last administered on 10/25/16 09:09; Admin Dose 100 MG; Start 10/18/16 at 09:00 Acetaminophen (Tylenol Tab) 650 mg Q6H PRN PO PAIN AND OR ELEVATED TEMP; Start 10/21/16 at 16:00 Linagliptin (Tradjenta) 5 mg DAILY PO Last administered on 10/25/16 09:10; Admin Dose 5 MG; Start 10/22/16 at 09:00 Lorazepam (Ativan) 1 mg Q4H PRN PO ANXIETY Last administered on 10/24/16 08:52 ; Admin Dose 1 MG; Start 10/22/16 at 10:30 YONIS PATEL NP Oct 25, 2016 09:58
--- NOTE | 2016-10-25 10:36 | CONS ---
Date/Time of Note Date/Time of Note DATE: 10/25/16 TIME: 10:24 Consult Date/Type/Reason Admit Date/Time October 15, 2016 at 02:37 Initial Consult Date Type of Consultation: neph Subjective This patient is stable. No events overnight. No fevers, chills, nausea, vomiting. OBJECTIVE: HEENT: Head is normocephalic. NECK: Supple. HEART: Regular rate. LUNGS: Show diminished breath sounds at the bases. ABDOMEN: Soft, nontender to palpation. No rebound or guarding. EXTREMITIES: Negative for clubbing, cyanosis. Positive edema. DERMATOLOGIC: No rashes. MUSCULOSKELETAL: No joint effusions. NEUROLOGIC: No change in exam. Objective Vital Signs Date Time Temp Pulse Resp B/P Pulse Ox O2 Delivery O2 Flow Rate FiO2 10/25/16 07:43 98.8 71 18 122/71 97 10/25/16 05:57 Room Air 10/25/16 01:23 2.0 10/22/16 18:28 28 Intake and Output 10/24/16 10/24/16 10/25/16 15:00 23:00 07:00 Intake Total 600 ml 450 ml Output Total 300 ml 800 ml Balance 300 ml -350 ml Results/Medications Result Diagram: 10/24/16 0507 10/25/16 0515 Results 24 hrs Laboratory Tests Test 10/24/16 11:56 10/24/16 17:15 10/24/16 20:54 10/25/16 05:15 Bedside Glucose 134 145 166 Sodium Level 140 Potassium Level 3.8 Chloride Level 106 Carbon Dioxide Level 25 Anion Gap 13 Blood Urea Nitrogen 30 H Creatinine 2.30 H Glucose Level 108 Calcium Level 7.7 L Phosphorus Level 5.1 H Magnesium Level 1.8 Test 10/25/16 08:08 Bedside Glucose 113 Medications Current Medications Hydralazine HCl (Apresoline) 50 mg TID PO Last administered on 10/25/16 09:10; Admin Dose 50 MG; Start 10/15/16 at 09:00 Levothyroxine Sodium (Synthroid) 75 mcg DAILY@06 PO Last administered on 05:57; Admin Dose 75 MCG; Start 10/15/16 at 06:00 Acetaminophen/ Hydrocodone Bitart ([place] (10/325)) 1 tab Q4H PRN PO PAIN Last administered on 10/22/16 12:51; Admin Dose 1 TAB; Start 10/15/16 at 03:30 Diagnostic Test (Pha) (Accu-Chek) 1 ea 02 XX Last administered on 10/22/16 02: 38; Admin Dose 1 EA; Start 10/16/16 at 02:00 Nifedipine (Procardia Xl) 60 mg BID PO Last administered on 10/25/16 09:10; Admin Dose 60 MG; Start 10/15/16 at 09:00 Miscellaneous Information 1 ea NOTE XX ; Start 10/15/16 at 03:45 Glucose (Glutose) 15 gm Q15M PRN PO DECREASED GLUCOSE; Start 10/15/16 at 03:45 Glucose (Glutose) 22.5 gm Q15M PRN PO DECREASED GLUCOSE Last administered on 12:16; Admin Dose 22.5 GM; Start 10/15/16 at 03:45 Dextrose (D50w Syringe) 25 ml Q15M PRN IV DECREASED GLUCOSE; Start 10/15/16 at 03:45 Dextrose (D50w Syringe) 50 ml Q15M PRN IV DECREASED GLUCOSE Last administered on 10/15/16 22:16; Admin Dose 50 ML; Start 10/15/16 at 03:45 Glucagon (Glucagen) 1 mg Q15M PRN IM DECREASED GLUCOSE; Start 10/15/16 at 03:45 Glucose (Glutose) 15 gm Q15M PRN BUCCAL DECREASED GLUCOSE Last administered on 10/15/16 19:46; Admin Dose 15 GM; Start 10/15/16 at 03:45 Hydralazine HCl (Apresoline) 10 mg Q4H PRN IV SBP ABOVE 160mmHg Last administered on 10/15/16 17:41; Admin Dose 10 MG; Start 10/15/16 at 05:00 Trimethobenzamide HCl 200 mg 200 mg Q6H PRN IM NAUSEA AND/OR VOMITING; Start at 15:30 Ondansetron HCl/ Dextrose (Zofran Inj/D5W) 54 ml @ 108 mls/hr Q6H PRN IV NAUSEA AND/OR VOMITING Last administered on 10/21/16 16:39; Admin Dose 108 MLS/ HR; Start 10/15/16 at 15:30 Morphine Sulfate (morphine) 2 mg Q4H PRN IV PAIN Last administered on 10/25/16 09:11; Admin Dose 2 MG; Start 10/16/16 at 11:30 Pantoprazole (Protonix Tab) 40 mg DAILY@06 PO Last administered on 10/25/16 05: 57; Admin Dose 40 MG; Start 10/17/16 at 06:00 Docusate Sodium (Colace) 100 mg BID PO Last administered on 10/25/16 09:09; Admin Dose 100 MG; Start 10/16/16 at 21:00 Senna (Senokot) 1 tab BID PO Last administered on 10/25/16 09:10; Admin Dose 1 TAB; Start 10/16/16 at 21:00 Fluconazole (Diflucan) 100 mg DAILY PO Last administered on 10/25/16 09:09; Admin Dose 100 MG; Start 10/18/16 at 09:00 Acetaminophen (Tylenol Tab) 650 mg Q6H PRN PO PAIN AND OR ELEVATED TEMP; Start 10/21/16 at 16:00 Linagliptin (Tradjenta) 5 mg DAILY PO Last administered on 10/25/16 09:10; Admin Dose 5 MG; Start 10/22/16 at 09:00 Lorazepam (Ativan) 1 mg Q4H PRN PO ANXIETY Last administered on 10/24/16 08:52 ; Admin Dose 1 MG; Start 10/22/16 at 10:30 Assessment/Plan Chief Complaint/Hosp Course 1. Nonoliguric acute kidney injury with unknown baseline creatinine. Etiology is secondary to hemodynamics, possible cardiorenal syndrome. The patient's renal function has been slowly improving on diuretic therapy. Creatinine appears to be stabilizing around 1.6 to 1.7 mg/dL. The patient was being evaluated for possible primary glomerulopathy given nephrotic range proteinuria ; however, serological data is negative to date. This does not definitively rule out the possibility of a FSGS primary, membranous nephropathy, or minimal change disease; however, less likely given the fact that the patient is diabetic , poorly controlled. At this point, continue current treatment plan, supportive care, renally dose all meds, and monitor renal function closely on diuretic therapy. 2. Chronic kidney disease with nephrotic range proteinuria. Etiology is likely secondary to diabetic nephropathy. As stated above, serological workup was negative. We will continue to treat acute kidney injury as stated above. May consider biopsy in outpatient setting once the patient is clinically compensated to definitively rule out any other pathology. 3. Acute systolic, diastolic heart failure. Continue current medical management. Diuretic therapy was adjusted by cardiology. Continue to monitor. 4. Hypernatremia secondary to congestive heart failure, improving. Continue diuretic therapy. 5. Mineral bone disorder. Continue to monitor calcium and phosphorus levels. 6. Anemia. Continue to monitor hemoglobin and hematocrit levels. 7. Acute respiratory failure secondary to congestive heart failure. Continue current treatment plan. 8. Intractable nausea and vomiting. The patient is status post EGD with erosive esophagitis. Continue to monitor. 9. Diabetes. Continue Accu-Cheks and sliding scale. 10. Bilateral pleural effusions secondary to CHF. The patient is status post thoracentesis. Continue to monitor. Problems: SUSHIL ELENA MD Oct 25, 2016 10:34
--- NOTE | 2016-10-25 14:37 | CONS ---
Date/Time of Note Date/Time of Note DATE: 10/25/16 TIME: 14:37 Assessment/Plan Assessment/Plan Chief Complaint/Hosp Course SUBJECTIVE: No events overnight, no fevers. INDWELLINGS: Right femoral Johnathan catheter placed on 10/20/2016. ANTIMICROBIALS: Fluconazole. PHYSICAL EXAMINATION: GENERAL: Chronically ill-appearing middle-aged man who is in no distress. HEENT: Head atraumatic, normocephalic. Sclerae anicteric. Buccal mucosa dry. NECK: Supple. Trachea midline. CHEST: Rise symmetrical. Breath sounds diminished to bases. HEART: S1, S2. ABDOMEN: Soft. Bowel tones present. EXTREMITIES: No cyanosis. SKIN: Positive anasarca. ASSESSMENT: 1. Acute on chronic kidney disease ==> s/p hemodialysis yesterday. 2. Urinary tract infection. 3. History of vancomycin-resistant enterococcus conjunctivitis. 4. Diabetes. 5. History of spinal abscess and osteomyelitis, completed antibiotics. 6. History of left otomastoiditis. PLAN: Remains stable. Continue present care. Brian Dennis in am. Follow recommendations of consultants. [facility] staff Problems: Consultation Date/Type/Reason Admit Date/Time October 15, 2016 at 02:37 Type of Consultation: ID Exam/Review of Systems Vital Signs Vitals Vital Signs Date Time Temp Pulse Resp B/P Pulse Ox O2 Delivery O2 Flow Rate FiO2 10/25/16 07:43 98.8 71 18 122/71 97 10/25/16 05:57 Room Air 10/25/16 01:23 2.0 10/22/16 18:28 28 Intake and Output 10/24/16 10/24/16 10/25/16 15:00 23:00 07:00 Intake Total 600 ml 450 ml Output Total 300 ml 800 ml Balance 300 ml -350 ml Results Result Diagram: 10/24/16 0507 10/25/16 0515 Results 24 hrs Laboratory Tests Test 10/24/16 17:15 10/24/16 20:54 10/25/16 05:15 10/25/16 08:08 Bedside Glucose 145 166 113 Sodium Level 140 Potassium Level 3.8 Chloride Level 106 Carbon Dioxide Level 25 Anion Gap 13 Blood Urea Nitrogen 30 H Creatinine 2.30 H Glucose Level 108 Calcium Level 7.7 L Phosphorus Level 5.1 H Magnesium Level 1.8 Test 10/25/16 11:57 Bedside Glucose 145 Medications Medications Current Medications Hydralazine HCl (Apresoline) 50 mg TID PO Last administered on 10/25/16 12:49; Admin Dose 50 MG; Start 10/15/16 at 09:00 Levothyroxine Sodium (Synthroid) 75 mcg DAILY@06 PO Last administered on 05:57; Admin Dose 75 MCG; Start 10/15/16 at 06:00 Acetaminophen/ Hydrocodone Bitart ([place] (10325)) 1 tab Q4H PRN PO PAIN Last administered on 10/22/16 12:51; Admin Dose 1 TAB; Start 10/15/16 at 03:30 Diagnostic Test (Pha) (Accu-Chek) 1 ea 02 XX Last administered on 10/22/16 02: 38; Admin Dose 1 EA; Start 10/16/16 at 02:00 Nifedipine (Procardia Xl) 60 mg BID PO Last administered on 10/25/16 09:10; Admin Dose 60 MG; Start 10/15/16 at 09:00 Miscellaneous Information 1 ea NOTE XX ; Start 10/15/16 at 03:45 Glucose (Glutose) 15 gm Q15M PRN PO DECREASED GLUCOSE; Start 10/15/16 at 03:45 Glucose (Glutose) 22.5 gm Q15M PRN PO DECREASED GLUCOSE Last administered on 12:16; Admin Dose 22.5 GM; Start 10/15/16 at 03:45 Dextrose (D50w Syringe) 25 ml Q15M PRN IV DECREASED GLUCOSE; Start 10/15/16 at 03:45 Dextrose (D50w Syringe) 50 ml Q15M PRN IV DECREASED GLUCOSE Last administered on 10/15/16 22:16; Admin Dose 50 ML; Start 10/15/16 at 03:45 Glucagon (Glucagen) 1 mg Q15M PRN IM DECREASED GLUCOSE; Start 10/15/16 at 03:45 Glucose (Glutose) 15 gm Q15M PRN BUCCAL DECREASED GLUCOSE Last administered on 10/15/16 19:46; Admin Dose 15 GM; Start 10/15/16 at 03:45 Hydralazine HCl (Apresoline) 10 mg Q4H PRN IV SBP ABOVE 160mmHg Last administered on 10/15/16 17:41; Admin Dose 10 MG; Start 10/15/16 at 05:00 Trimethobenzamide HCl 200 mg 200 mg Q6H PRN IM NAUSEA AND/OR VOMITING; Start at 15:30 Ondansetron HCl/ Dextrose (Zofran Inj/D5W) 54 ml @ 108 mls/hr Q6H PRN IV NAUSEA AND/OR VOMITING Last administered on 10/21/16 16:39; Admin Dose 108 MLS/ HR; Start 10/15/16 at 15:30 Morphine Sulfate (morphine) 2 mg Q4H PRN IV PAIN Last administered on 10/25/16 13:58; Admin Dose 2 MG; Start 10/16/16 at 11:30 Pantoprazole (Protonix Tab) 40 mg DAILY@06 PO Last administered on 10/25/16 05: 57; Admin Dose 40 MG; Start 10/17/16 at 06:00 Docusate Sodium (Colace) 100 mg BID PO Last administered on 10/25/16 09:09; Admin Dose 100 MG; Start 10/16/16 at 21:00 Senna (Senokot) 1 tab BID PO Last administered on 10/25/16 09:10; Admin Dose 1 TAB; Start 10/16/16 at 21:00 Fluconazole (Diflucan) 100 mg DAILY PO Last administered on 10/25/16 09:09; Admin Dose 100 MG; Start 10/18/16 at 09:00 Acetaminophen (Tylenol Tab) 650 mg Q6H PRN PO PAIN AND OR ELEVATED TEMP; Start 10/21/16 at 16:00 Linagliptin (Tradjenta) 5 mg DAILY PO Last administered on 10/25/16 09:10; Admin Dose 5 MG; Start 10/22/16 at 09:00 Lorazepam (Ativan) 1 mg Q4H PRN PO ANXIETY Last administered on 10/24/16 08:52 ; Admin Dose 1 MG; Start 10/22/16 at 10:30 DORENE GARCIA NP Oct 25, 2016 14:37
[2016-10-25 20:02] VITALS: BP 118/76; RESP 20
[2016-10-25] MEDS: HYDROCODONE/APAP (10/325) TAB PO PRN (20:23)
[2016-10-26] MEDS: ACCU-CHEK XX SCH (01:48)
[2016-10-26] MEDS: morphine 4 MG/ML VIAL IV PRN ×4 (02:37→19:22)
[2016-10-26] MEDS: FUROSEMIDE 40 MG INJ IV SCH ×2 (05:25→17:50)
[2016-10-26] MEDS: LEVOTHYROXINE 75 MCG TAB PO SCH (05:25)
[2016-10-26] MEDS: PANTOPRAZOLE (EC) 40 MG TAB PO SCH (05:25)
[2016-10-26 06:03] LABS: ADD SCAN DIFF NO
[2016-10-26 06:08] LABS: BASOPHILS % 0.2 % (0.0-2.0); EOSINOPHILS # 0.2 10^3/ul (0.0-0.5); EOSINOPHILS % 4.2 % (0.0-7.0); HEMATOCRIT 27.6 % (42.0-52.0); HEMOGLOBIN 9.5 g/dl (14.0-18.0); LYMPHOCYTES # 0.9 10^3/ul (0.8-2.9); LYMPHOCYTES % 15.8 % (15.0-51.0); MEAN CORPUSCULAR HEMOGLOBIN 29.9 pg (29.0-33.0); MEAN CORPUSCULAR HGB CONC 34.4 g/dl (32.0-37.0); MEAN CORPUSCULAR VOLUME 86.8 fl (82.0-101.0); MEAN PLATELET VOLUME 9.5 fl (7.4-10.4); MONOCYTE # 0.5 10^3/ul (0.3-0.9); MONOCYTES % 8.9 % (0.0-11.0); NEUTROPHIL # 4.1 10^3/ul (1.6-7.5); NEUTROPHILS % 70.7 % (39.0-77.0); PLATELET COUNT 106 10^3/UL (140-415); RED BLOOD COUNT 3.18 10^6/ul (4.70-6.10); RED CELL DISTRIBUTION WIDTH 14.6 % (11.5-14.5); WHITE BLOOD COUNT 5.8 10^3/ul (4.8-10.8)
[2016-10-26 06:29] LABS: MAGNESIUM 1.9 mg/dl (1.7-2.5); PHOSPHORUS 4.6 mg/dl (2.5-4.9)
[2016-10-26 06:36] LABS: CALCIUM 7.6 mg/dl (8.4-10.2); CREATININE 2.39 mg/dl (0.61-1.24); POTASSIUM 3.7 mmol/L (3.5-5.1)
--- NOTE | 2016-10-26 07:14 | PN ---
Date/Time of Note Date/Time of Note DATE: 10/26/16 TIME: 07:13 Assessment/Plan VTE Prophylaxis VTE Prophylaxis Intervention: heparin Lines/Catheters IV [facility] Urinary Cath still in place: No Assessment/Plan Chief Complaint/Hosp Course 1. Nonoliguric acute kidney injury on top of chronic kidney disease stage IV. The patient was on hemodialysis. Status post emergent Johnathan catheter placement. Currently HD on hold because of improving renal function. 2. Urinary tract infection. On antimicrobials. No evidence of any septic shock. 3. Recent spinal abscess with MRSA. Status post surgery on 07/12/2016. 4. Benign prostatic hypertrophy. Continue medications. 5. Recent left mastoid opacification without associated effusions compatible with osteomyelitis. Status post antibiotic therapy. 6. Normocytic normochromic anemia, most probably anemia of end-stage renal disease. Continue to monitor H and H closely. Transfuse as needed. 7. Hypothyroidism. Continue Synthroid. 8. Essential hypertension. Continue antihypertensives. 9. Diabetes mellitus. Latest hemoglobin A1c 6.0. Blood sugars well controlled on insulin. 10. Hyperkalemia. Resolved. Monitor. 11. Fluid, electrolytes and nutrition. Low cholesterol, carbohydrate controlled diet. 12. Deep venous thrombosis prophylaxis. Bilateral SCDs. Subcutaneous heparin. 13. Gastrointestinal prophylaxis. Proton pump inhibitors. PLAN: Hemodialysis on hold as per nephrology. Await clearance from nephrology before discharge. Case discussed with Dr. Hernandez. Problems: Subjective 24 Hr Interval Summary Free Text/Dictation Remains afebrile. Complains of back pain. Exam/Review of Systems Vital Signs Vitals Vital Signs Date Time Temp Pulse Resp B/P Pulse Ox O2 Delivery O2 Flow Rate FiO2 10/25/16 20:02 98.1 68 20 118/76 98 10/25/16 16:43 2.0 10/25/16 05:57 Room Air 10/22/16 18:28 28 Intake and Output 10/25/16 10/25/16 10/26/16 15:00 23:00 07:00 Intake Total 1020 ml 360 ml Output Total 160 ml Balance 860 ml 360 ml Exam GENERAL: This is a frail-looking male lying in bed in no apparent distress. HEENT: Head normocephalic and atraumatic. Eyes: Anicteric sclerae. Conjunctivae clear. ENT: Nasal septum is midline. Oral mucosa is dry. NECK: Supple. No JVD noticed. RESPIRATORY: Bilaterally clear to auscultation. No adventitious breath sounds heard. No use of accessory muscles of respiration. CARDIAC: Regular rate and rhythm. No murmurs heard. ABDOMEN: Soft, nontender and nondistended. Bowel sounds positive in all 4 quadrants. GENITOURINARY: The patient has a Cox catheter in place. EXTREMITIES: No cyanosis, no clubbing. Bilateral lower extremity 1+ pitting edema. Peripheral pulses on the lower extremities are diminished. NEUROLOGIC: The patient is awake, alert and oriented. Cranial nerves are grossly intact. Results Result Diagram: 10/26/16 0530 10/26/16 0530 Results 24 hrs Laboratory Tests Test 10/25/16 08:08 10/25/16 11:57 10/25/16 17:23 10/25/16 20:21 Bedside Glucose 113 145 227 H 128 Test 10/26/16 05:30 White Blood Count 5.8 Red Blood Count 3.18 L Hemoglobin 9.5 L Hematocrit 27.6 L Mean Corpuscular Volume 86.8 Mean Corpuscular Hemoglobin 29.9 Mean Corpuscular Hemoglobin Concent 34.4 Red Cell Distribution Width 14.6 H Platelet Count 106 L Mean Platelet Volume 9.5 Neutrophils % 70.7 Lymphocytes % 15.8 Monocytes % 8.9 Eosinophils % 4.2 Basophils % 0.2 Nucleated Red Blood Cells % 0.0 Neutrophils # 4.1 Lymphocytes # 0.9 Monocytes # 0.5 Eosinophils # 0.2 Basophils # 0.0 Nucleated Red Blood Cells # 0.0 Sodium Level 140 Potassium Level 3.7 Chloride Level 106 Carbon Dioxide Level 25 Anion Gap 13 Blood Urea Nitrogen 34 H Creatinine 2.39 H Glucose Level 90 Calcium Level 7.6 L Phosphorus Level 4.6 Magnesium Level 1.9 Medications Medications Current Medications Hydralazine HCl (Apresoline) 50 mg TID PO Last administered on 10/25/16 20:23; Admin Dose 50 MG; Start 10/15/16 at 09:00 Levothyroxine Sodium (Synthroid) 75 mcg DAILY@06 PO Last administered on 05:25; Admin Dose 75 MCG; Start 10/15/16 at 06:00 Acetaminophen/ Hydrocodone Bitart ([place] (10/325)) 1 tab Q4H PRN PO PAIN Last administered on 10/25/16 20:23; Admin Dose 1 TAB; Start 10/15/16 at 03:30 Diagnostic Test (Pha) (Accu-Chek) 1 ea 02 XX Last administered on 10/22/16 02: 38; Admin Dose 1 EA; Start 10/16/16 at 02:00 Nifedipine (Procardia Xl) 60 mg BID PO Last administered on 10/25/16 20:22; Admin Dose 60 MG; Start 10/15/16 at 09:00 Miscellaneous Information 1 ea NOTE XX ; Start 10/15/16 at 03:45 Glucose (Glutose) 15 gm Q15M PRN PO DECREASED GLUCOSE; Start 10/15/16 at 03:45 Glucose (Glutose) 22.5 gm Q15M PRN PO DECREASED GLUCOSE Last administered on 12:16; Admin Dose 22.5 GM; Start 10/15/16 at 03:45 Dextrose (D50w Syringe) 25 ml Q15M PRN IV DECREASED GLUCOSE; Start 10/15/16 at 03:45 Dextrose (D50w Syringe) 50 ml Q15M PRN IV DECREASED GLUCOSE Last administered on 10/15/16 22:16; Admin Dose 50 ML; Start 10/15/16 at 03:45 Glucagon (Glucagen) 1 mg Q15M PRN IM DECREASED GLUCOSE; Start 10/15/16 at 03:45 Glucose (Glutose) 15 gm Q15M PRN BUCCAL DECREASED GLUCOSE Last administered on 10/15/16 19:46; Admin Dose 15 GM; Start 10/15/16 at 03:45 Hydralazine HCl (Apresoline) 10 mg Q4H PRN IV SBP ABOVE 160mmHg Last administered on 10/15/16 17:41; Admin Dose 10 MG; Start 10/15/16 at 05:00 Trimethobenzamide HCl 200 mg 200 mg Q6H PRN IM NAUSEA AND/OR VOMITING; Start at 15:30 Ondansetron HCl/ Dextrose (Zofran Inj/D5W) 54 ml @ 108 mls/hr Q6H PRN IV NAUSEA AND/OR VOMITING Last administered on 10/21/16 16:39; Admin Dose 108 MLS/ HR; Start 10/15/16 at 15:30 Morphine Sulfate (morphine) 2 mg Q4H PRN IV PAIN Last administered on 10/26/16 02:37; Admin Dose 2 MG; Start 10/16/16 at 11:30 Pantoprazole (Protonix Tab) 40 mg DAILY@06 PO Last administered on 10/26/16 05: 25; Admin Dose 40 MG; Start 10/17/16 at 06:00 Docusate Sodium (Colace) 100 mg BID PO Last administered on 10/25/16 09:09; Admin Dose 100 MG; Start 10/16/16 at 21:00 Senna (Senokot) 1 tab BID PO Last administered on 10/25/16 09:10; Admin Dose 1 TAB; Start 10/16/16 at 21:00 Fluconazole (Diflucan) 100 mg DAILY PO Last administered on 10/25/16 09:09; Admin Dose 100 MG; Start 10/18/16 at 09:00; Stop 10/26/16 at 14:37 Acetaminophen (Tylenol Tab) 650 mg Q6H PRN PO PAIN AND OR ELEVATED TEMP; Start 10/21/16 at 16:00 Linagliptin (Tradjenta) 5 mg DAILY PO Last administered on 10/25/16 09:10; Admin Dose 5 MG; Start 10/22/16 at 09:00 Lorazepam (Ativan) 1 mg Q4H PRN PO ANXIETY Last administered on 10/24/16 08:52 ; Admin Dose 1 MG; Start 10/22/16 at 10:30 YONIS PATEL NP Oct 26, 2016 07:14
[2016-10-26] MEDS: INSULIN ASPART [NOVOLOG] 3 ML PEN SC SCH ×4 (08:15→21:00)
--- NOTE | 2016-10-26 08:46 | CONS ---
Date/Time of Note Date/Time of Note DATE: 10/26/16 TIME: 08:42 Consult Date/Type/Reason Admit Date/Time October 15, 2016 at 02:37 Type of Consultation: neph Subjective This patient is stable. No events overnight. No fevers, chills, nausea, vomiting. continues good uo. OBJECTIVE: HEENT: Head is normocephalic. NECK: Supple. HEART: Regular rate. LUNGS: Show diminished breath sounds at the bases. ABDOMEN: Soft, nontender to palpation. No rebound or guarding. EXTREMITIES: Negative for clubbing, cyanosis. Positive edema. DERMATOLOGIC: No rashes. MUSCULOSKELETAL: No joint effusions. NEUROLOGIC: No change in exam. Objective Vital Signs Date Time Temp Pulse Resp B/P Pulse Ox O2 Delivery O2 Flow Rate FiO2 10/25/16 20:02 98.1 68 20 118/76 98 10/25/16 16:43 2.0 10/25/16 05:57 Room Air 10/22/16 18:28 28 Intake and Output 10/25/16 10/25/16 10/26/16 15:00 23:00 07:00 Intake Total 1020 ml 360 ml Output Total 160 ml Balance 860 ml 360 ml Results/Medications Result Diagram: 10/26/16 0530 10/26/16 0530 Results 24 hrs Laboratory Tests Test 10/25/16 11:57 10/25/16 17:23 10/25/16 20:21 10/26/16 05:30 Bedside Glucose 145 227 H 128 White Blood Count 5.8 Red Blood Count 3.18 L Hemoglobin 9.5 L Hematocrit 27.6 L Mean Corpuscular Volume 86.8 Mean Corpuscular Hemoglobin 29.9 Mean Corpuscular Hemoglobin Concent 34.4 Red Cell Distribution Width 14.6 H Platelet Count 106 L Mean Platelet Volume 9.5 Neutrophils % 70.7 Lymphocytes % 15.8 Monocytes % 8.9 Eosinophils % 4.2 Basophils % 0.2 Nucleated Red Blood Cells % 0.0 Neutrophils # 4.1 Lymphocytes # 0.9 Monocytes # 0.5 Eosinophils # 0.2 Basophils # 0.0 Nucleated Red Blood Cells # 0.0 Sodium Level 140 Potassium Level 3.7 Chloride Level 106 Carbon Dioxide Level 25 Anion Gap 13 Blood Urea Nitrogen 34 H Creatinine 2.39 H Glucose Level 90 Calcium Level 7.6 L Phosphorus Level 4.6 Magnesium Level 1.9 Medications Current Medications Hydralazine HCl (Apresoline) 50 mg TID PO Last administered on 10/25/16 20:23; Admin Dose 50 MG; Start 10/15/16 at 09:00 Levothyroxine Sodium (Synthroid) 75 mcg DAILY@06 PO Last administered on 05:25; Admin Dose 75 MCG; Start 10/15/16 at 06:00 Acetaminophen/ Hydrocodone Bitart ([place] (10/325)) 1 tab Q4H PRN PO PAIN Last administered on 10/25/16 20:23; Admin Dose 1 TAB; Start 10/15/16 at 03:30 Diagnostic Test (Pha) (Accu-Chek) 1 ea 02 XX Last administered on 10/22/16 02: 38; Admin Dose 1 EA; Start 10/16/16 at 02:00 Nifedipine (Procardia Xl) 60 mg BID PO Last administered on 10/25/16 20:22; Admin Dose 60 MG; Start 10/15/16 at 09:00 Miscellaneous Information 1 ea NOTE XX ; Start 10/15/16 at 03:45 Glucose (Glutose) 15 gm Q15M PRN PO DECREASED GLUCOSE; Start 10/15/16 at 03:45 Glucose (Glutose) 22.5 gm Q15M PRN PO DECREASED GLUCOSE Last administered on 12:16; Admin Dose 22.5 GM; Start 10/15/16 at 03:45 Dextrose (D50w Syringe) 25 ml Q15M PRN IV DECREASED GLUCOSE; Start 10/15/16 at 03:45 Dextrose (D50w Syringe) 50 ml Q15M PRN IV DECREASED GLUCOSE Last administered on 10/15/16 22:16; Admin Dose 50 ML; Start 10/15/16 at 03:45 Glucagon (Glucagen) 1 mg Q15M PRN IM DECREASED GLUCOSE; Start 10/15/16 at 03:45 Glucose (Glutose) 15 gm Q15M PRN BUCCAL DECREASED GLUCOSE Last administered on 10/15/16 19:46; Admin Dose 15 GM; Start 10/15/16 at 03:45 Hydralazine HCl (Apresoline) 10 mg Q4H PRN IV SBP ABOVE 160mmHg Last administered on 10/15/16 17:41; Admin Dose 10 MG; Start 10/15/16 at 05:00 Trimethobenzamide HCl 200 mg 200 mg Q6H PRN IM NAUSEA AND/OR VOMITING; Start at 15:30 Ondansetron HCl/ Dextrose (Zofran Inj/D5W) 54 ml @ 108 mls/hr Q6H PRN IV NAUSEA AND/OR VOMITING Last administered on 10/21/16 16:39; Admin Dose 108 MLS/ HR; Start 10/15/16 at 15:30 Morphine Sulfate (morphine) 2 mg Q4H PRN IV PAIN Last administered on 10/26/16 02:37; Admin Dose 2 MG; Start 10/16/16 at 11:30 Pantoprazole (Protonix Tab) 40 mg DAILY@06 PO Last administered on 10/26/16 05: 25; Admin Dose 40 MG; Start 10/17/16 at 06:00 Docusate Sodium (Colace) 100 mg BID PO Last administered on 10/25/16 09:09; Admin Dose 100 MG; Start 10/16/16 at 21:00 Senna (Senokot) 1 tab BID PO Last administered on 10/25/16 09:10; Admin Dose 1 TAB; Start 10/16/16 at 21:00 Fluconazole (Diflucan) 100 mg DAILY PO Last administered on 10/25/16 09:09; Admin Dose 100 MG; Start 10/18/16 at 09:00; Stop 10/26/16 at 14:37 Acetaminophen (Tylenol Tab) 650 mg Q6H PRN PO PAIN AND OR ELEVATED TEMP; Start 10/21/16 at 16:00 Linagliptin (Tradjenta) 5 mg DAILY PO Last administered on 10/25/16 09:10; Admin Dose 5 MG; Start 10/22/16 at 09:00 Lorazepam (Ativan) 1 mg Q4H PRN PO ANXIETY Last administered on 10/24/16 08:52 ; Admin Dose 1 MG; Start 10/22/16 at 10:30 Assessment/Plan Chief Complaint/Hosp Course 1. Nonoliguric acute kidney injury with unknown baseline creatinine. Etiology is secondary to hemodynamics, possible cardiorenal syndrome. The patient's renal function has been slowly improving on diuretic therapy. Creatinine appeared to be stabilizing around 1.6 to 1.7 mg/dL but has slowly creeped back up to 2.4. The patient was being evaluated for possible primary glomerulopathy given nephrotic range proteinuria; however, serological data is negative to date. This does not definitively rule out the possibility of a FSGS primary, membranous nephropathy, or minimal change disease; however, less likely given the fact that the patient is diabetic, poorly controlled. At this point, continue current treatment plan, supportive care, renally dose all meds, and monitor renal function closely on diuretic therapy. 2. Chronic kidney disease with nephrotic range proteinuria. Etiology is likely secondary to diabetic nephropathy. As stated above, serological workup was negative. We will continue to treat acute kidney injury as stated above. May consider biopsy in outpatient setting once the patient is clinically compensated to definitively rule out any other pathology. 3. Acute systolic, diastolic heart failure. Continue current medical management. Diuretic therapy was adjusted by cardiology. Continue to monitor. 4. Hypernatremia secondary to congestive heart failure, improving. Continue diuretic therapy. 5. Mineral bone disorder. Continue to monitor calcium and phosphorus levels. 6. Anemia. Continue to monitor hemoglobin and hematocrit levels. 7. Acute respiratory failure secondary to congestive heart failure. Continue current treatment plan. 8. Intractable nausea and vomiting. The patient is status post EGD with erosive esophagitis. Continue to monitor. 9. Diabetes. Continue Accu-Cheks and sliding scale. 10. Bilateral pleural effusions secondary to CHF. The patient is status post thoracentesis. Continue to monitor. Problems: SUSHIL ELENA MD Oct 26, 2016 08:46
[2016-10-26] MEDS: SENNA TAB PO SCH ×2 (09:00→21:00)
[2016-10-26] MEDS: DOCUSATE SODIUM 100 MG CAP PO SCH ×2 (09:00→21:00)
[2016-10-26] MEDS: NIFEdipine (XL) 60 MG TAB PO SCH ×2 (09:00→21:17)
[2016-10-26] MEDS: FLUCONAZOLE 100 MG TAB PO SCH (09:11)
[2016-10-26] MEDS: LINAGLIPTIN 5 MG TABLET PO SCH (09:11)
[2016-10-26] MEDS: SEVELAMER 800 MG TAB PO SCH ×3 (09:11→17:48)
[2016-10-26 09:20] VITALS: BP 105/66; PULSE 74; RESP 18
[2016-10-26] MEDS: LORAZEPAM 1 MG TAB PO PRN (17:51)
[2016-10-26 19:55] VITALS: BP 132/74; RESP 20
[2016-10-26 21:12] LABS: POTASSIUM,URINE RANDOM 24.9 mmol/L (25-125)
[2016-10-27] MEDS: ACCU-CHEK XX SCH (02:00)
[2016-10-27] MEDS: morphine 4 MG/ML VIAL IV PRN ×4 (03:21→22:14)
[2016-10-27 05:34] LABS: ADD SCAN DIFF NO; BASOPHILS % 0.2 % (0.0-2.0); EOSINOPHILS # 0.2 10^3/ul (0.0-0.5); EOSINOPHILS % 2.5 % (0.0-7.0); HEMATOCRIT 28.3 % (42.0-52.0); HEMOGLOBIN 9.6 g/dl (14.0-18.0); LYMPHOCYTES # 0.9 10^3/ul (0.8-2.9); LYMPHOCYTES % 13.1 % (15.0-51.0); MEAN CORPUSCULAR HEMOGLOBIN 29.6 pg (29.0-33.0); MEAN CORPUSCULAR HGB CONC 33.9 g/dl (32.0-37.0); MEAN CORPUSCULAR VOLUME 87.3 fl (82.0-101.0); MEAN PLATELET VOLUME 9.4 fl (7.4-10.4); MONOCYTE # 0.5 10^3/ul (0.3-0.9); MONOCYTES % 7.9 % (0.0-11.0); NEUTROPHIL # 4.9 10^3/ul (1.6-7.5); PLATELET COUNT 104 10^3/UL (140-415); RED BLOOD COUNT 3.24 10^6/ul (4.70-6.10); RED CELL DISTRIBUTION WIDTH 14.8 % (11.5-14.5); WHITE BLOOD COUNT 6.5 10^3/ul (4.8-10.8)
[2016-10-27] MEDS: LEVOTHYROXINE 75 MCG TAB PO SCH (05:56)
[2016-10-27] MEDS: PANTOPRAZOLE (EC) 40 MG TAB PO SCH (05:56)
[2016-10-27 05:57] VITALS: BP 151/83; PULSE 74; RESP 18
[2016-10-27] MEDS: FUROSEMIDE 40 MG INJ IV SCH (05:57)
[2016-10-27 06:10] LABS: MAGNESIUM 1.9 mg/dl (1.7-2.5); PHOSPHORUS 4.9 mg/dl (2.5-4.9)
[2016-10-27 06:23] LABS: CALCIUM 7.7 mg/dl (8.4-10.2); CREATININE 2.4 mg/dl (0.61-1.24); POTASSIUM 3.9 mmol/L (3.5-5.1)
[2016-10-27] MEDS: SEVELAMER 800 MG TAB PO SCH ×3 (08:00→18:01)
[2016-10-27] MEDS: INSULIN ASPART [NOVOLOG] 3 ML PEN SC SCH ×4 (08:01→20:50)
[2016-10-27 08:11] VITALS: BP 121/69; RESP 18
[2016-10-27] MEDS: SENNA TAB PO SCH ×2 (09:00→20:50)
[2016-10-27] MEDS: DOCUSATE SODIUM 100 MG CAP PO SCH ×2 (09:00→20:50)
[2016-10-27] MEDS: NIFEdipine (XL) 60 MG TAB PO SCH ×2 (09:21→20:47)
[2016-10-27] MEDS: LINAGLIPTIN 5 MG TABLET PO SCH (09:22)
[2016-10-27] MEDS: CIPROFLOXACIN 0.3% 3.5 GM OPH OINT BOTH EYES SCH ×3 (11:00→20:50)
--- NOTE | 2016-10-27 12:07 | PN ---
DATE: 10/27/2016 SUBJECTIVE: The patient is stable. No acute events overnight. No fevers, chills, nausea, vomiting . OBJECTIVE: VITAL SIGNS: Blood pressure is 121/69. Respiration is 18, pulse 73, temperature 98.3. HEENT: Head is normocephalic. NECK: Supple. HEART: Regular rate. LUNGS: Show diminished breath sounds at base. ABDOMEN: Soft, nontender to palpation. EXTREMITIES: Positive edema. DERMATOLOGICAL: No rashes. MUSCULOSKELETAL: No joint effusions. NEUROLOGICAL: No change in exam. MEDICATIONS: The patient's medications have been reviewed. LABORATORY DATA: Shows sodium 138, potassium 2.9, chloride 106, BUN 36, creatinine 2.41. White cou nt 6.5, hemoglobin 9.6, hematocrit 28.3. Platelet count is 104. ASSESSMENT AND PLAN: 1. Nonoliguric acute kidney injury on top of chronic kidney disease stage IV with a baseline creati nine of 2 to 2.5 mg/dL. Etiology of acute kidney injury is secondary to acute tubular necrosis. Gian jensen is currently off hemodialysis for 1 week and renal function has been stable. At this point, sabina hansen will reintroduce the patient on diuretic therapy as the patient is becoming edematous. Anticipate removing dialysis catheter in the next 24 hours. We will continue to monitor closely. 2. 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 The patient is getting cur rently in acute kidney injury as stated above. We will continue current treatment and plan. Please note that the patient's creatinine is remarkably overestimating his EGFR as the this patient is cac hectic. We will otherwise continue disease factor modification. 3. Volume overload. The patient will be started on diuretic therapy and Lasix. Continue to monito r renal function and electrolytes closely. 4. Hyperkalemia, resolved. 5. Hyponatremia, resolved. 6. Mineral bone disorder. Continue to monitor calcium and phosphorus levels. Continue phos binder s. 7. Anemia of chronic disease. Continue to monitor H and H levels. Continue Epogen. 8. Pyelonephritis. The patient is completing the antibiotic course. 9. Diabetes. Continue Accu-Cheks and sliding scale. 10. Hypothyroidism. Continue Synthroid. 11. Benign prostatic hypertrophy. Continue medical management. 12. Gastrointestinal and deep venous thrombosis prophylaxis. Continue proton pump inhibitor and se quential leg squeezers. Dictated By: NAE SINHA/ERICKA Conf#: [id number] DID#: [id number]
--- NOTE | 2016-10-27 15:23 | PN ---
Date/Time of Note Date/Time of Note DATE: 10/27/16 TIME: 15:18 Assessment/Plan VTE Prophylaxis VTE Prophylaxis Intervention: SCD's Lines/Catheters [facility] renetta catheter Urinary Cath still in place: No Assessment/Plan Chief Complaint/Hosp Course Assessment and plan 1. Acute kidney injury with CKD stage IV. Continue on dialysis per nephrology recommendations. Currently on hold. Will follow up. Monitor renal panel. 2. UTI. Continue on antibiotics. Adjust as needed 3. Recent spinal abscess with MRSA. Patient is status post surgical intervention on September 09, 2016. No active issue at this time pressure monitor. 4. BPH. Continue on home medication 5. Recent left mastoid opacification with associated effusion compatible with osteomyelitis. Patient is status post ABX therapy. Monitor for now. 6. Anemia of chronic disease. H&H remained stable. Monitor for now. 7. Hypothyroidism. Continue on Synthroid 8. Essential hypertension. Continue antihypertensives and adjust as needed 9. Diabetes. Patient noted with A1c of 6. Continue insulin regimen. Will adjust as needed 10. Hyperkalemia. In the setting of ESRD. Stable at present. Will monitor and provide with Kayexalate as needed. DVT prophylaxis: Heparin Prophylaxis: PPI Disposition and plan: Monitor renal function. With improvement. Discharge when medically stable and cleared by consultants Discussed plan of care with Dr. Gilbert Problems: Subjective 24 Hr Interval Summary Free Text/Dictation Comfortable at present. No apparent distress. Exam/Review of Systems Vital Signs Vitals Vital Signs Date Time Temp Pulse Resp B/P Pulse Ox O2 Delivery O2 Flow Rate FiO2 10/27/16 08:11 98.3 73 18 121/69 97 10/26/16 09:20 Room Air 10/25/16 16:43 2.0 Intake and Output 10/26/16 10/26/16 10/27/16 15:00 23:00 07:00 Intake Total 600 ml 200 ml Balance 600 ml 200 ml Exam Constitutional: alert Psych: nl mood/affect Head: normocephalic Neck: supple, No jvd Respiratory: clear to auscultation, normal air movement Cardiovascular: regular rate and rhythm Gastrointestinal: non-tender, soft Musculoskeletal: nl extremities to inspection Extremities: edema (Minimal bilateral lower extremities) Skin: nl turgor Results Result Diagram: 10/27/16 0505 10/27/16 0505 Results 24 hrs Laboratory Tests Test 10/26/16 15:30 10/26/16 17:45 10/26/16 21:19 10/27/16 05:05 Urine Eosinophils % 0.0 Urine Random Creatinine 58.02 Urine Random Sodium 57 Urine Random Potassium 24.9 L Urine Total Protein 300.0 H Bedside Glucose 124 142 White Blood Count 6.5 Red Blood Count 3.24 L Hemoglobin 9.6 L Hematocrit 28.3 L Mean Corpuscular Volume 87.3 Mean Corpuscular Hemoglobin 29.6 Mean Corpuscular Hemoglobin Concent 33.9 Red Cell Distribution Width 14.8 H Platelet Count 104 L Mean Platelet Volume 9.4 Neutrophils % 76.0 Lymphocytes % 13.1 L Monocytes % 7.9 Eosinophils % 2.5 Basophils % 0.2 Nucleated Red Blood Cells % 0.0 Neutrophils # 4.9 Lymphocytes # 0.9 Monocytes # 0.5 Eosinophils # 0.2 Basophils # 0.0 Nucleated Red Blood Cells # 0.0 Sodium Level 138 Potassium Level 3.9 Chloride Level 106 Carbon Dioxide Level 24 Anion Gap 12 Blood Urea Nitrogen 36 H Creatinine 2.40 H Glucose Level 81 Calcium Level 7.7 L Phosphorus Level 4.9 Magnesium Level 1.9 Test 10/27/16 08:00 10/27/16 12:03 Bedside Glucose 78 128 Medications Medications Current Medications Hydralazine HCl (Apresoline) 50 mg TID PO Last administered on 10/27/16 12:57; Admin Dose 50 MG; Start 10/15/16 at 09:00 Levothyroxine Sodium (Synthroid) 75 mcg DAILY@06 PO Last administered on 05:56; Admin Dose 75 MCG; Start 10/15/16 at 06:00 Acetaminophen/ Hydrocodone Bitart ([place] (10/325)) 1 tab Q4H PRN PO PAIN Last administered on 10/25/16 20:23; Admin Dose 1 TAB; Start 10/15/16 at 03:30 Diagnostic Test (Pha) (Accu-Chek) 1 ea 02 XX Last administered on 10/22/16 02: 38; Admin Dose 1 EA; Start 10/16/16 at 02:00 Nifedipine (Procardia Xl) 60 mg BID PO Last administered on 10/27/16 09:21; Admin Dose 60 MG; Start 10/15/16 at 09:00 Miscellaneous Information 1 ea NOTE XX ; Start 10/15/16 at 03:45 Glucose (Glutose) 15 gm Q15M PRN PO DECREASED GLUCOSE; Start 10/15/16 at 03:45 Glucose (Glutose) 22.5 gm Q15M PRN PO DECREASED GLUCOSE Last administered on 12:16; Admin Dose 22.5 GM; Start 10/15/16 at 03:45 Dextrose (D50w Syringe) 25 ml Q15M PRN IV DECREASED GLUCOSE; Start 10/15/16 at 03:45 Dextrose (D50w Syringe) 50 ml Q15M PRN IV DECREASED GLUCOSE Last administered on 10/15/16 22:16; Admin Dose 50 ML; Start 10/15/16 at 03:45 Glucagon (Glucagen) 1 mg Q15M PRN IM DECREASED GLUCOSE; Start 10/15/16 at 03:45 Glucose (Glutose) 15 gm Q15M PRN BUCCAL DECREASED GLUCOSE Last administered on 10/15/16 19:46; Admin Dose 15 GM; Start 10/15/16 at 03:45 Hydralazine HCl (Apresoline) 10 mg Q4H PRN IV SBP ABOVE 160mmHg Last administered on 10/15/16 17:41; Admin Dose 10 MG; Start 10/15/16 at 05:00 Trimethobenzamide HCl 200 mg 200 mg Q6H PRN IM NAUSEA AND/OR VOMITING; Start at 15:30 Ondansetron HCl/ Dextrose (Zofran Inj/D5W) 54 ml @ 108 mls/hr Q6H PRN IV NAUSEA AND/OR VOMITING Last administered on 10/21/16 16:39; Admin Dose 108 MLS/ HR; Start 10/15/16 at 15:30 Pantoprazole (Protonix Tab) 40 mg DAILY@06 PO Last administered on 10/27/16 05: 56; Admin Dose 40 MG; Start 10/17/16 at 06:00 Docusate Sodium (Colace) 100 mg BID PO Last administered on 10/25/16 09:09; Admin Dose 100 MG; Start 10/16/16 at 21:00 Senna (Senokot) 1 tab BID PO Last administered on 10/25/16 09:10; Admin Dose 1 TAB; Start 10/16/16 at 21:00 Acetaminophen (Tylenol Tab) 650 mg Q6H PRN PO PAIN AND OR ELEVATED TEMP; Start 10/21/16 at 16:00 Linagliptin (Tradjenta) 5 mg DAILY PO Last administered on 10/27/16 09:22; Admin Dose 5 MG; Start 10/22/16 at 09:00 Lorazepam (Ativan) 1 mg Q4H PRN PO ANXIETY Last administered on 10/26/16 17:51 ; Admin Dose 1 MG; Start 10/22/16 at 10:30 Morphine Sulfate (morphine) 3 mg Q4H PRN IV PAIN Last administered on 10/27/16 11:09; Admin Dose 3 MG; Start 10/26/16 at 14:30 Ciprofloxacin HCl (Ciloxan 0.3% Oph Oint) 1 applic BID BOTH EYES Last administered on 10/27/16 13:00; Admin Dose 1 APPLIC; Start 10/27/16 at 11:00 RANDY SCHNEIDER Oct 27, 2016 15:23
[2016-10-27] MEDS: FUROSEMIDE 40 MG TAB PO SCH (18:02)
[2016-10-27 20:12] VITALS: BP 126/79; RESP 18
[2016-10-28] MEDS: ACCU-CHEK XX SCH (02:00)
[2016-10-28] MEDS: morphine 4 MG/ML VIAL IV PRN ×4 (04:03→18:53)
[2016-10-28] MEDS: PANTOPRAZOLE (EC) 40 MG TAB PO SCH (06:03)
[2016-10-28] MEDS: FUROSEMIDE 40 MG TAB PO SCH ×2 (06:03→17:56)
[2016-10-28] MEDS: LEVOTHYROXINE 75 MCG TAB PO SCH (06:04)
[2016-10-28 06:26] LABS: CALCIUM 7.6 mg/dl (8.4-10.2); CREATININE 2.39 mg/dl (0.61-1.24); PHOSPHORUS 5.1 mg/dl (2.5-4.9); POTASSIUM 3.9 mmol/L (3.5-5.1)
[2016-10-28 07:58] VITALS: BP 133/66; RESP 20
[2016-10-28] MEDS: INSULIN ASPART [NOVOLOG] 3 ML PEN SC SCH ×4 (08:15→21:00)
[2016-10-28] MEDS: SENNA TAB PO SCH ×2 (09:00→20:59)
[2016-10-28] MEDS: DOCUSATE SODIUM 100 MG CAP PO SCH ×2 (09:00→20:58)
[2016-10-28] MEDS: SEVELAMER 800 MG TAB PO SCH ×3 (09:05→17:54)
[2016-10-28] MEDS: LINAGLIPTIN 5 MG TABLET PO SCH (10:20)
[2016-10-28] MEDS: NIFEdipine (XL) 60 MG TAB PO SCH ×2 (10:22→20:58)
--- NOTE | 2016-10-28 10:23 | PN ---
DATE: 10/28/2016 SUBJECTIVE: The patient is stable, no acute events overnight. The patient continues to have diarrh ea. No other events noted. OBJECTIVE: VITAL SIGNS: Blood pressure 133/66, respirations 20, pulse 71, temperature 97.5. HEENT: Head is normocephalic. NECK: Supple. HEART: Regular rate. LUNGS: Show diminished breath sounds at the bases. ABDOMEN: Soft, nontender to palpation. No rebound or guarding. EXTREMITIES: Negative for clubbing, cyanosis. Positive edema. DERMATOLOGIC: No rashes. MUSCULOSKELETAL: No joint effusions. NEUROLOGIC: No change in exam. MEDICATIONS: The patient's medications have been reviewed. LABORATORY DATA: Shows sodium 139, potassium 3.9, BUN 37, creatinine 2.39, phosphorus 5.1, calcium is 7.6. White count 6.5, hemoglobin 9.6, hematocrit 28.3, platelet count 104. ASSESSMENT AND PLAN: 1. Nonoliguric acute kidney injury on top of chronic kidney disease stage IV with a baseline creati nine between 2 to 2.5 mg/dL. The patient is status post hemodialysis. He has been off dialysis for 1 week. The patient's renal function has returned to baseline. At this point, we will remove the dialysis catheter and monitor renal function closely. 2. 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 We will continue disease f actor modification, monitor. Otherwise, continue supportive care. 3. Volume overload. Continue diuretic therapy, monitor renal function and electrolytes. 4. Mineral bone disorder. The patient is hyperphosphatemia. Continue phosphate binders. 5. Anemia of chronic disease. Continue to monitor hemoglobin and hematocrit levels. Continue Epog en. 6. Pyelonephritis. The patient has completed antibiotic course. 7. Clostridium difficile. Continue current antibiotic regimen. 8. Diabetes. Continue Accu-Cheks and insulin sliding scale. 9. Hypothyroidism. We will continue Synthroid. 10. Benign prostatic hypertrophy. Continue medical management. 11. Gastrointestinal and deep venous thrombosis prophylaxis. Continue proton pump inhibitor and se quential leg squeezers. Dictated By: NAE SINHA/NTS Conf#: [id number] DID#: [id number]
[2016-10-28] MEDS: CIPROFLOXACIN 0.3% 3.5 GM OPH OINT BOTH EYES SCH ×2 (10:25→21:54)
[2016-10-28] MEDS: metroNIDAZOLE 500 MG TAB PO SCH ×2 (13:13→21:56)
--- NOTE | 2016-10-28 13:23 | PN ---
Date/Time of Note Date/Time of Note DATE: 10/28/16 TIME: 13:20 Assessment/Plan VTE Prophylaxis VTE Prophylaxis Intervention: SCD's Lines/Catheters IV C[facility]ter Type (from [facility] renetta cath Urinary Cath still in place: No Assessment/Plan Chief Complaint/Hosp Course Assessment and plan 1. Acute kidney injury with CKD stage IV. Off dialysis at this time. Renal function appears stable at present. Continue with claims assistant recommendations. All. 2. UTI. Continue on antibiotics. 3. Recent spinal abscess with MRSA. Patient is status post surgical intervention on September 09, 2016. No active issue at this time pressure monitor. 4. BPH. Continue on home medication 5. Recent left mastoid opacification with associated effusion compatible with osteomyelitis. Patient is status post ABX therapy. Monitor for now. 6. Anemia of chronic disease. H&H remained stable. Monitor for now. 7. Hypothyroidism. Continue on Synthroid 8. Essential hypertension. Continue antihypertensives and adjust as needed 9. Diabetes. Patient noted with A1c of 6. Continue insulin regimen. Will adjust as needed. Stable at present 10. Hyperkalemia. In the setting of ESRD. Stable at present. Will monitor and provide with Kayexalate as needed. 11. C. difficile infection. Patient started on Flagyl DVT prophylaxis: Heparin Prophylaxis: PPI Disposition and plan: Plan for DC of dialysis catheter today. Started on Flagyl for C. difficile infection. Monitor renal panel. Discharged when medically stable Discussed plan of care with Dr. Gilbert Problems: Subjective 24 Hr Interval Summary Free Text/Dictation reports having some anxiety and diarrhea Exam/Review of Systems Vital Signs Vitals Vital Signs Date Time Temp Pulse Resp B/P Pulse Ox O2 Delivery O2 Flow Rate FiO2 10/28/16 07:58 97.5 81 20 133/66 100 10/26/16 09:20 Room Air 10/25/16 16:43 2.0 Intake and Output 10/27/16 10/27/16 10/28/16 15:00 23:00 07:00 Intake Total 860 ml Output Total 1100 ml Balance -240 ml Exam Constitutional: alert, oriented Head: normocephalic Neck: supple, No jvd Respiratory: clear to auscultation, normal air movement Cardiovascular: regular rate and rhythm Gastrointestinal: non-tender, soft Musculoskeletal: nl extremities to inspection Extremities: normal pulses Neurological: PEANUT SEPARATOR II-XII intact, nl mental status, nl speech Results Result Diagram: 10/27/16 0505 10/28/16 0501 Results 24 hrs Laboratory Tests Test 10/27/16 17:05 10/27/16 20:42 10/28/16 05:01 10/28/16 07:54 Bedside Glucose 115 100 90 Sodium Level 139 Potassium Level 3.9 Chloride Level 107 Carbon Dioxide Level 23 Anion Gap 13 Blood Urea Nitrogen 37 H Creatinine 2.39 H Glucose Level 83 Calcium Level 7.6 L Phosphorus Level 5.1 H Magnesium Level 2.0 Test 10/28/16 12:58 Bedside Glucose 131 Medications Medications Current Medications Hydralazine HCl (Apresoline) 50 mg TID PO Last administered on 10/28/16 10:21; Admin Dose 50 MG; Start 10/15/16 at 09:00 Levothyroxine Sodium (Synthroid) 75 mcg DAILY@06 PO Last administered on 06:04; Admin Dose 75 MCG; Start 10/15/16 at 06:00 Acetaminophen/ Hydrocodone Bitart ([place] (10/325)) 1 tab Q4H PRN PO PAIN Last administered on 10/25/16 20:23; Admin Dose 1 TAB; Start 10/15/16 at 03:30 Diagnostic Test (Pha) (Accu-Chek) 1 ea 02 XX Last administered on 10/22/16 02: 38; Admin Dose 1 EA; Start 10/16/16 at 02:00 Nifedipine (Procardia Xl) 60 mg BID PO Last administered on 10/28/16 10:22; Admin Dose 60 MG; Start 10/15/16 at 09:00 Miscellaneous Information 1 ea NOTE XX ; Start 10/15/16 at 03:45 Glucose (Glutose) 15 gm Q15M PRN PO DECREASED GLUCOSE; Start 10/15/16 at 03:45 Glucose (Glutose) 22.5 gm Q15M PRN PO DECREASED GLUCOSE Last administered on 12:16; Admin Dose 22.5 GM; Start 10/15/16 at 03:45 Dextrose (D50w Syringe) 25 ml Q15M PRN IV DECREASED GLUCOSE; Start 10/15/16 at 03:45 Dextrose (D50w Syringe) 50 ml Q15M PRN IV DECREASED GLUCOSE Last administered on 10/15/16 22:16; Admin Dose 50 ML; Start 10/15/16 at 03:45 Glucagon (Glucagen) 1 mg Q15M PRN IM DECREASED GLUCOSE; Start 10/15/16 at 03:45 Glucose (Glutose) 15 gm Q15M PRN BUCCAL DECREASED GLUCOSE Last administered on 10/15/16 19:46; Admin Dose 15 GM; Start 10/15/16 at 03:45 Hydralazine HCl (Apresoline) 10 mg Q4H PRN IV SBP ABOVE 160mmHg Last administered on 10/15/16 17:41; Admin Dose 10 MG; Start 10/15/16 at 05:00 Trimethobenzamide HCl 200 mg 200 mg Q6H PRN IM NAUSEA AND/OR VOMITING; Start at 15:30 Ondansetron HCl/ Dextrose (Zofran Inj/D5W) 54 ml @ 108 mls/hr Q6H PRN IV NAUSEA AND/OR VOMITING Last administered on 10/21/16 16:39; Admin Dose 108 MLS/ HR; Start 10/15/16 at 15:30 Pantoprazole (Protonix Tab) 40 mg DAILY@06 PO Last administered on 10/28/16 06: 03; Admin Dose 40 MG; Start 10/17/16 at 06:00 Docusate Sodium (Colace) 100 mg BID PO Last administered on 10/25/16 09:09; Admin Dose 100 MG; Start 10/16/16 at 21:00 Senna (Senokot) 1 tab BID PO Last administered on 10/25/16 09:10; Admin Dose 1 TAB; Start 10/16/16 at 21:00 Acetaminophen (Tylenol Tab) 650 mg Q6H PRN PO PAIN AND OR ELEVATED TEMP; Start 10/21/16 at 16:00 Linagliptin (Tradjenta) 5 mg DAILY PO Last administered on 10/28/16 10:20; Admin Dose 5 MG; Start 10/22/16 at 09:00 Lorazepam (Ativan) 1 mg Q4H PRN PO ANXIETY Last administered on 10/26/16 17:51 ; Admin Dose 1 MG; Start 10/22/16 at 10:30 Morphine Sulfate (morphine) 3 mg Q4H PRN IV PAIN Last administered on 10/28/16 13:13; Admin Dose 3 MG; Start 10/26/16 at 14:30 Ciprofloxacin HCl (Ciloxan 0.3% Oph Oint) 1 applic BID BOTH EYES Last administered on 10/28/16 10:25; Admin Dose 1 APPLIC; Start 10/27/16 at 11:00 Simethicone (Mylicon) 160 mg Q6H PRN PO DISTENSION/GAS/BLOATING Last administered on 10/28/16 09:02; Admin Dose 160 MG; Start 10/27/16 at 20:30 Metronidazole (Flagyl) 500 mg Q8 PO Last administered on 10/28/16 13:13; Admin Dose 500 MG; Start 10/28/16 at 14:00 RANDY SCHNEIDER Oct 28, 2016 13:23
[2016-10-28] MEDS ORDERED: ALPRAZOLAM 0.25 MG TAB PO PRN (13:30)
[2016-10-28 19:34] VITALS: BP 104/66; RESP 20
[2016-10-29] MEDS: ACCU-CHEK XX SCH (01:17)
[2016-10-29] MEDS: LEVOTHYROXINE 75 MCG TAB PO SCH (06:01)
[2016-10-29] MEDS: PANTOPRAZOLE (EC) 40 MG TAB PO SCH (06:01)
[2016-10-29] MEDS: FUROSEMIDE 40 MG TAB PO SCH ×2 (06:01→18:15)
[2016-10-29] MEDS: metroNIDAZOLE 500 MG TAB PO SCH ×2 (06:01→14:49)
[2016-10-29 06:46] LABS: CALCIUM 7.5 mg/dl (8.4-10.2); CREATININE 2.53 mg/dl (0.61-1.24); MAGNESIUM 2.1 mg/dl (1.7-2.5); PHOSPHORUS 5.1 mg/dl (2.5-4.9); POTASSIUM 4.2 mmol/L (3.5-5.1)
[2016-10-29] MEDS: ONDANSETRON INJ 8 MG in DEXTROSE 5% 50 ML IV PRN (06:59)
[2016-10-29 07:56] VITALS: BP 120/68; RESP 18
[2016-10-29] MEDS: INSULIN ASPART [NOVOLOG] 3 ML PEN SC SCH ×3 (08:15→17:53)
[2016-10-29] MEDS: DOCUSATE SODIUM 100 MG CAP PO SCH (09:00)
[2016-10-29] MEDS: SENNA TAB PO SCH (09:00)
[2016-10-29] MEDS: SEVELAMER 800 MG TAB PO SCH ×3 (09:04→18:11)
[2016-10-29] MEDS: LINAGLIPTIN 5 MG TABLET PO SCH (09:04)
[2016-10-29] MEDS: NIFEdipine (XL) 60 MG TAB PO SCH (09:06)
[2016-10-29] MEDS: CIPROFLOXACIN 0.3% 3.5 GM OPH OINT BOTH EYES SCH (09:08)
--- NOTE | 2016-10-29 10:22 | PN ---
DATE: 10/29/2016 SUBJECTIVE: The patient is stable. No acute events overnight. No fevers, chills, nausea, vomiting . No shortness of breath. OBJECTIVE: VITAL SIGNS: Blood pressure is 120/68, respiration 18, pulse 82, temperature 98.2. HEENT: Head is normocephalic. NECK: Supple. HEART: Regular rate. LUNGS: Show diminished breath sounds at base. ABDOMEN: Soft, nontender to palpation without rebound or guarding. EXTREMITIES: Negative for clubbing, cyanosis. Positive edema. DERMATOLOGIC: No rashes. MUSCULOSKELETAL: No joint effusions. NEUROLOGIC: No change in exam. MEDICATIONS: The patient's medications have been reviewed. LABORATORY DATA: Shows white count 6.5, hemoglobin 9.6, hematocrit 28.3, platelet count is 104. So dium 136, potassium 4.2, chloride 105, BUN 14, creatinine 2.53, calcium 7.5, phosphorus 5.1. ASSESSMENT AND PLAN: 1. Nonoliguric acute kidney injury on top of chronic kidney disease stage IV with a baseline creati nine about 2 to 2.5 mg/dL. The patient is status post hemodialysis. The patient is currently off d ialysis. Dialysis catheter was removed. At this point, continue current treatment plan, supportive care, renally dose all medications. 2. Chronic kidney disease, stage IV/V. 3. Diabetic nephropathy. At this point, continue disease, factor modification. Continue supportiv e care. 4. Volume overload secondary to congestive heart failure, acute kidney injury. Continue current di uretic regimen and monitor electrolytes closely. 5. Mineral bone disorder. Monitor calcium and phosphorus levels. Continue phosphorus binders. 6. Anemia of chronic disease. Continue to monitor hemoglobin and hematocrit levels. Continue Epog en. 7. Pyelonephritis. Patient has completed antibiotic course. 8. Clostridium difficile. Continue current antibiotic regimen. 9. Diabetes. Continue Accu-Cheks and sliding scale. 10. Hypothyroidism. Continue Synthroid. 11. BPH. Continue medical management. 12. Gastrointestinal and deep venous thrombosis prophylaxis. Continue proton pump inhibitor and se quential leg squeezers. Dictated By: NAE SINHA/NTS Conf#: [id number] DID#: [id number]
[2016-10-29] MEDS ORDERED: SYN75 PO (11:05)
[2016-10-29] MEDS ORDERED: METR500T PO (11:05)
[2016-10-29] MEDS ORDERED: HYDR-3672 PO (11:05)
[2016-10-29] MEDS ORDERED: SENN-53 PO (11:05)
[2016-10-29] MEDS ORDERED: SEVE800T10 PO (11:05)
[2016-10-29] MEDS ORDERED: FURO40TA4 PO (11:05)
[2016-10-29] MEDS ORDERED: NIFE60TA7 PO (11:05)
[2016-10-29] MEDS ORDERED: LINA5TAB PO (11:05)
[2016-10-29] MEDS ORDERED: PANT40TA4 PO (11:05)
--- NOTE | 2016-10-29 11:11 | PDOCDIS ---
Discharge Instructions DIAGNOSIS Discharge Diagnosis: 1. Acute kidney injury with CKD stage IV-II. C. difficile 3. Hypertensio CONDITION Patient Condition: Stable HOME CARE INSTRUCTIONS: Special Diet: CARB CONTROLLED FOLLOW UP/APPOINTMENTS Appointments 1. Follow up with Dr. Emir Brown in one week RANDY SCHNEIEDR Oct 29, 2016 11:11
--- NOTE | 2016-10-29 11:49 | DS ---
Date/Time of Note Date/Time of Note DATE: 10/29/16 TIME: 11:41 Discharge Summary Admission/Discharge Info Admit Date/Time October 15, 2016 at 02:37 Discharge Date/Time Final Diagnosis 1. Acute kidney injury with CKD stage IV. 2. UTI. 3. Recent spinal abscess with MRSA. 4. BPH. 5. Recent left mastoid opacification with associated effusion compatible with osteomyelitis. 6. Anemia of chronic disease. 7. Hypothyroidism. 8. Essential hypertension. 9. Diabetes. 10. C. difficile infection. Patient Condition: Stable Consults 1. Dr. Emir Brown 2. Dr. Armando Rodríguez Hospital Course This Is a 56-year-old male with history of hypothyroidism, diabetic retinopathy , psoas abscess, laminectomy, spinal osteomyelitis, hepatitis C, BPH, VRE conjunctivitis, chronic kidney disease, who came to [facility] from reported rehab due to reports of abdominal pain and back pain. 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 He was provided antibiotics and he did tolerate well with good response. Patient is also seen with acute renal insufficiency and was seen by belt loop cutter. He did necessitate temporary dialysis and he did have renal stabilization. After review by belt loop cutter dialysis catheter was removed and did have his medications renally dosed. During his course of stay he did improve. He was otherwise optimized medically. He was resumed on his home medication for his BPH. He did have a history of spinal abscess as well as method ostium myelitis but there were no active issues noted at this time for those issues. He was resumed on Synthroid for hypothyroidism and hypertensive antihypertensive for his hypertension. He was continued on insulin for diabetes. Patient was also seen with C. difficile infection and was provided with appropriate antibiotic. As previously mentioned during his course of stay he did improve. He did report good pain control and was provided with analgesics while in the hospital. Patient was also provided physical therapy. The plan of care was discussed with the patient and patient did verbalizes understanding. On the day of discharge patient was in stable condition Discussed plan of care with Dr. Gilbert Discharge process time: 40 minutes Home Meds Active Scripts Sevelamer Hcl* (Renagel*) 800 Mg Tablet, 800 MG PO WITH MEALS for 30 Days, TAB Prov:RANDY SCHNEIDER 10/29/16 Sennosides* (Senna Lax*) 8.6 Mg Tablet, 1 TAB PO BID for 30 Days, TAB Prov:REGYNESRANDY 10/29/16 Pantoprazole* (Pantoprazole*) 40 Mg Tablet.dr, 40 MG PO DAILY@06 for 30 Days Prov:LATONIAYNESRANDY 10/29/16 Nifedipine (Afeditab CR) 60 Mg Tablet.sa, 60 MG PO BID for 30 Days Prov:RANDY SCHNEIDER 10/29/16 Metronidazole* (Flagyl*) 500 Mg Tablet, 500 MG PO Q8 for 13 Days, TAB Prov:REGIDORANDY Borges 10/29/16 Linagliptin (TRADJENTA) 5 Mg Tablet, 5 MG PO DAILY for 30 Days, TAB Prov:REGYNESRANDY 10/29/16 Levothyroxine Sodium* (Synthroid*) 75 Mcg Tablet, 75 MCG PO DAILY@06 for 30 Days , TAB Prov:REGIDORANDY Borges 10/29/16 Hydralazine Hcl* (Apresoline*) 50 Mg Tab, 50 MG PO TID for 30 Days, TAB Prov:REGIDORANDY Borges 10/29/16 Furosemide* (Furosemide*) 40 Mg Tablet, 40 MG PO BID DIURETICS for 30 Days, TAB Prov:REGYNESRANDY 10/29/16 Lactobacillus Acidoph/Bulgaricus* (Floranex*) 1 Each Tablet, 1 TAB PO TID for 30 Days, TAB 4 Refills Prov:PHANI REYES S. 07/22/16 Ferrous Sulfate* (Ferrous Sulfate*) 325 Mg Tabec, 325 MG PO BID, #60 TAB 2 Refills Prov:PHANI REYES S. 07/22/16 Reported Medications Oxycodone HCl/Acetaminophen (Percocet 5-325 mg Tablet) 1 Each Tablet, 1 EACH PO Q4 Y for PAIN, TAB 09/01/16 Simethicone* (Anti-Gas/80*) 80 Mg Tab.chew, 80 MG PO Q6H Y for DISTENSION/GAS/ BLOATING, TAB.CHEW 09/01/16 Insulin Aspart* (Novolog Insulin Pen*) 100 Unit/Ml Soln, 0 SC .SLIDING SCALE AC , EA 09/01/16 Zolpidem Tartrate* (Zolpidem Tartrate*) 10 Mg Tablet, 10 MG PO QHS Y for INSOMNIA, #30 TAB 09/01/16 Ergocalciferol (Vitamin D2) (VITAMIN D2) 50,000 Unit Capsule, 01912 UNIT PO ONCE , CAP every thursday07/10/16 Finasteride* (Finasteride*) 5 Mg Tablet, 5 MG PO DAILY, TAB 07/10/16 Tamsulosin Hcl* (Tamsulosin Hcl*) 0.4 Mg Cap.er.24h, 0.4 MG PO DAILY, CAP 07/10/16 Discontinued Reported Medications Bumetanide* (Bumetanide*) 1 Mg Tablet, 1 MG PO DAILY, TAB 07/10/16 Discontinued Scripts Isosorbide Dinitrate* (Isosorbide Dinitrate*) 20 Mg Tablet, 20 MG PO TID for 30 Days, TAB Prov:SOPHY PUENTESBRINDA M. 08/13/16 Levothyroxine Sodium* (Synthroid*) 50 Mcg Tablet, 50 MCG PO DAILY@06 for 30 Days , TAB Prov:DHAVALRAMON M. 08/13/16 Minoxidil* (Lonitin*) 2.5 Mg Tab, 5 MG PO BID for 30 Days, TAB Prov:SOPHY PUENTESBRINDA M. 08/13/16 Carvedilol* (Carvedilol*) 6.25 Mg Tablet, 6.25 MG PO BID, #60 TAB 2 Refills Prov:PHANI REYES. 07/22/16 Follow-up Plan CONDITION Patient Condition: Stable HOME CARE INSTRUCTIONS: Special Diet: CARB CONTROLLED FOLLOW UP/APPOINTMENTS Appointments 1. Follow up with Dr. Emir Brown in one week Primary Care Provider Not On Staff Doctor Pending Labs Laboratory Tests Test 10/28/16 12:58 10/28/16 17:33 10/28/16 21:52 10/29/16 05:16 Bedside Glucose 131mg/dL (70-220) 169mg/dL (70-220) 147mg/dL (70-220) Sodium Level 136mmol/L (135-144) Potassium Level 4.2mmol/L (3.5-5.1) Chloride Level 105mmol/L (97-110) Carbon Dioxide Level 22mmol/L (21-31) Anion Gap 13 (8-16) Blood Urea Nitrogen 42mg/dl (7-20) Creatinine 2.53mg/dl (0.61-1.24) Glucose Level 116mg/dl (70-220) Calcium Level 7.5mg/dl (8.4-10.2) Phosphorus Level 5.1mg/dl (2.5-4.9) Magnesium Level 2.1mg/dl (1.7-2.5) Test 10/29/16 08:23 Bedside Glucose 117mg/dL (70-220) RANDY SCHNEIDER Oct 29, 2016 11:49
[2016-10-29 19:39] VITALS: BP 98/61; RESP 20
== END 2016-10-29 19:55 | disposition home health service (06) | DRG 291 ==
LOC: MS2 02:37
PROVIDERS: ADMIT Internal Medicine; ATTEND Internal Medicine
PROC: 06HM33Z Insertion of Infusion Device into Right Femoral Vein, Percutaneous Approach (ICD-10-PCS; principal; 2016-10-20)
PROC: 5A1D60Z (ICD-10-PCS; 2016-10-20)
DX: I13.0 Hypertensive heart and chronic kidney disease with heart failure and stage 1 through stage 4 chronic kidney disease, or unspecified chronic kidney disease (principal); N17.0 Acute kidney failure with tubular necrosis; R64 Cachexia; D61.818 Other pancytopenia; N18.4 Chronic kidney disease, stage 4 (severe); A04.7 Enterocolitis due to Clostridium difficile; N10 Acute pyelonephritis; N12 Tubulo-interstitial nephritis, not specified as acute or chronic; I50.41 Acute combined systolic (congestive) and diastolic (congestive) heart failure; M86.8X8 Other osteomyelitis, other site; B37.49 Other urogenital candidiasis; E87.5 Hyperkalemia; N15.9 Renal tubulo-interstitial disease, unspecified; E11.319 Type 2 diabetes mellitus with unspecified diabetic retinopathy without macular edema; N40.0 Benign prostatic hyperplasia without lower urinary tract symptoms; H70.12 Chronic mastoiditis, left ear; F32.9 Major depressive disorder, single episode, unspecified; E03.9 Hypothyroidism, unspecified; H10.31 Unspecified acute conjunctivitis, right eye; Z68.25 Body mass index [BMI] 25.0-25.9, adult; Z99.2 Dependence on renal dialysis; R11.2 Nausea with vomiting, unspecified
CPT/HCPCS: 36430; 70450; 80048; 80053; 80076; 81001; 81003; 82043; 82436; 82947; 82962; 83735; 84100; 84132; 84133; 84155; 84300; 85025; 85610; 85730; 86644; 86850; 86900; 86901; 86920; 87075; 87081; 87086; 89190; 90935; 93923; 93970; 97116; 97162; 97530; J1120; J1940; A4310; J0360; J0692; J1644; J1815; J2060; J2270; J2405; J3250; J3370; J7042; J7050; P9016; Q4081

== ENCOUNTER 2016-11-01 09:33 | Inpatient (IN) | payer OTHER ==
[~2016-11-01] VITALS: Ht 165.1 cm; Wt 65.2 kg
[~2016-11-01 09:33] MED LIST changes: -BUME1TAB18 PO; -CARV6.2579 PO; +FURO40TA4 PO; +HYDR-3672 PO; -ISOS20TA19 PO; -LEVO50TA83 PO; +LINA5TAB PO; +METR500T PO; -MINO2.5T16 PO; +NIFE60TA7 PO; +PANT40TA4 PO; +SENN-53 PO; +SEVE800T10 PO; +SYN75 PO
[2016-11-01 15:00] VITALS: BP 160/96; PULSE 61; RESP 18; Ht 165.1 cm; Wt 65.2 kg
[2016-11-01] MEDS ORDERED: HYDROCODONE/APAP (5/325) TAB PO PRN (17:30)
[2016-11-01] MEDS ORDERED: DOCUSATE SODIUM 100 MG CAP PO PRN (17:30)
[2016-11-01] MEDS ORDERED: NACL 0.9% 3 ML SYG IV SCH (17:30)
[2016-11-01] MEDS ORDERED: ZOLPIDEM 5 MG TAB PO PRN ×2 (17:30→18:00)
[2016-11-01] MEDS ORDERED: ONDANSETRON 4 MG INJ IV PRN (17:30)
[2016-11-01] MEDS ORDERED: ACETAMINOPHEN 325 MG TAB PO PRN (17:30)
[2016-11-01] MEDS ORDERED: GLUCAGON 1 MG INJ IM PRN (18:00)
[2016-11-01] MEDS ORDERED: ERGOCALCIFEROL 50,000 UNIT CAP PO SCH (18:00)
[2016-11-01] MEDS ORDERED: GLUCOSE GEL 15 GRAM TUBE BUCCAL PRN (18:00)
[2016-11-01] MEDS: INSULIN ASPART [NOVOLOG] 3 ML PEN SC SCH ×2 (18:00→20:41)
[2016-11-01] MEDS ORDERED: DEXTROSE 50% 50 ML SYRINGE IV PRN ×2 (18:00)
[2016-11-01] MEDS ORDERED: GLUCOSE GEL 15 GRAM TUBE PO PRN ×2 (18:00)
[2016-11-01] MEDS: D5W-0.45 NACL + KCL 20 MEQ 1,000 ML IV SCH (18:37)
[2016-11-01] MEDS: SEVELAMER 800 MG TAB PO SCH (18:37)
[2016-11-01] MEDS: FUROSEMIDE 40 MG TAB PO SCH (18:38)
[2016-11-01] MEDS: morphine 2 MG INJ IV PRN ×2 (18:48→23:03)
[2016-11-01 20:17] VITALS: BP 178/100; RESP 20
[2016-11-01] MEDS: CEFEPIME 2GM/50 ML (PMX) 50 ML IVPB SCH (20:26)
[2016-11-01] MEDS: NIFEdipine (XL) 60 MG TAB PO SCH (20:28)
[2016-11-01] MEDS: FERROUS SULFATE (EC) 325 MG TAB PO SCH (20:29)
[2016-11-01] MEDS: SENNA TAB PO SCH (20:31)
[2016-11-01] MEDS: L ACIDOPHIL/B LACTIS/B LONGUM CAPSULE PO SCH (20:41)
[2016-11-01 20:45] VITALS: BP 164/99; PULSE 63
[2016-11-02] VITALS (7 sets, daily range): BP systolic 114–196; BP diastolic 68–106; PULSE 58–63; RESP 18–20
[2016-11-02] MEDS: ACCU-CHEK XX SCH (02:00)
[2016-11-02] MEDS: D5W-0.45 NACL + KCL 20 MEQ 1,000 ML IV SCH (05:58)
[2016-11-02 05:59] LABS: ADD SCAN DIFF NO
[2016-11-02] MEDS: LEVOTHYROXINE 75 MCG TAB PO SCH (06:07)
[2016-11-02] MEDS: PANTOPRAZOLE (EC) 40 MG TAB PO SCH (06:07)
[2016-11-02] MEDS: FUROSEMIDE 40 MG TAB PO SCH ×2 (06:08→17:50)
[2016-11-02 06:13] LABS: HEMOGLOBIN 10.7 g/dl (14.0-18.0); LYMPHOCYTES # 0.7 10^3/ul (0.8-2.9); MEAN CORPUSCULAR HEMOGLOBIN 30.1 pg (29.0-33.0); MEAN CORPUSCULAR HGB CONC 33.4 g/dl (32.0-37.0); MEAN CORPUSCULAR VOLUME 89.9 fl (82.0-101.0); MEAN PLATELET VOLUME 9.1 fl (7.4-10.4); MONOCYTE # 0.4 10^3/ul (0.3-0.9); MONOCYTES % 4.3 % (0.0-11.0); NEUTROPHIL # 8.6 10^3/ul (1.6-7.5); NEUTROPHILS % 88.3 % (39.0-77.0); PLATELET COUNT 175 10^3/UL (140-415); RED BLOOD COUNT 3.56 10^6/ul (4.70-6.10); RED CELL DISTRIBUTION WIDTH 15.8 % (11.5-14.5); WHITE BLOOD COUNT 9.7 10^3/ul (4.8-10.8)
[2016-11-02 06:34] LABS: ALBUMIN 3.1 g/dl (3.3-4.9); ALBUMIN/GLOBULIN RATIO 0.96; CALCIUM 8.1 mg/dl (8.4-10.2); CHOL/HDL RATIO 2.4 RATIO; CREATININE 2.63 mg/dl (0.61-1.24); MAGNESIUM 2.3 mg/dl (1.7-2.5); PHOSPHORUS 7.1 mg/dl (2.5-4.9); TOTAL PROTEIN 6.3 g/dl (6.1-8.1)
[2016-11-02] MEDS: LINAGLIPTIN 5 MG TABLET PO SCH (08:18)
[2016-11-02] MEDS: FINASTERIDE 5 MG TAB PO SCH (08:19)
[2016-11-02] MEDS: TAMSULOSIN (SR) 0.4 MG CAP PO SCH (08:19)
[2016-11-02] MEDS: SENNA TAB PO SCH ×2 (08:19→20:49)
[2016-11-02] MEDS: SEVELAMER 800 MG TAB PO SCH ×3 (08:19→17:50)
[2016-11-02] MEDS: NIFEdipine (XL) 60 MG TAB PO SCH ×2 (08:19→20:48)
[2016-11-02] MEDS: L ACIDOPHIL/B LACTIS/B LONGUM CAPSULE PO SCH ×2 (08:19→20:31)
[2016-11-02] MEDS: FERROUS SULFATE (EC) 325 MG TAB PO SCH ×2 (08:19→20:31)
[2016-11-02] MEDS: INSULIN ASPART [NOVOLOG] 3 ML PEN SC SCH ×4 (08:21→20:28)
[2016-11-02] MEDS ORDERED: NA POLYST SULFON 15 GM/60 ML BTL PO ONE (08:30)
[2016-11-02] MEDS: morphine 2 MG INJ IV PRN ×3 (09:00→20:39)
[2016-11-02] MEDS: CEFEPIME 2GM/50 ML (PMX) 50 ML IVPB SCH (09:05)
--- NOTE | 2016-11-02 10:24 | CONS ---
DATE OF ADMISSION: 11/01/2016 DATE OF CONSULTATION: TYPE OF CONSULTATION: Nephrology. REASON FOR CONSULTATION: Acute kidney injury, hyperkalemia. REQUESTING PHYSICIAN: ____. HISTORY OF PRESENT ILLNESS: This is a 56-year-old male with a past medical history of chronic kidne y disease, stage V, with a baseline creatinine around 2.5 mg/dL, history of hypothyroidism, history of diabetes, diabetic retinopathy, history of spinal osteomyelitis, status post laminectomy, history of hepatitis C, BPH, and conjunctivitis who has had multiple admissions to [facility] for UTI and acute kidney injury. The patient was recently admitted 10/15/2016 with a UTI. The patient, at that point, had acute kidney injury requiring hemodialysis. The patient was able to be taken off dialysis and was discharged home. The patient now returns back to [facility] with weakness and fatigue. The patient was transferred from an outside hospital with pyelone phritis. The patient was placed on IV antibiotics. In terms of the patient's renal history, the patient has a baseline creatinine of 2.5 mg/dL as state d above. The patient is near baseline. The patient, however, is hyperkalemic with potassium 6.0 an d is volume overloaded. The patient denies any change in urinary output and denies any hemoptysis, hemetemesis, or hematochezia. The patient was given Kayexalate for his hyperkalemia. He patient de nies any chest pain. PAST MEDICAL HISTORY: As stated above, history of CKD, stage IV, diabetes, diabetic retinopathy, hy pothyroidism, history of spinal osteomyelitis. PAST SURGICAL HISTORY: Status post laminectomy, status post Johnathan catheter placement. ALLERGIES: NO KNOWN DRUG ALLERGIES. FAMILY HISTORY: Noncontributory. SOCIAL HISTORY: Does not drink, smoke, or do drugs. MEDICATIONS: Have been reviewed. REVIEW OF SYSTEMS: A 14-point review of systems was conducted. Pertinent positives in HPI, otherwi se negative. PHYSICAL EXAMINATION: VITAL SIGNS: Blood pressure is 140/82, respiration 18, pulse 60, temperature 98.7. HEENT: Head is normocephalic. Pupils are reactive to light. NECK: Supple. HEART: Regular rate. LUNGS: Show diminished breath sounds at base. ABDOMEN: Soft, nontender to palpation without rebound or guarding. EXTREMITIES: Negative for clubbing, cyanosis, edema. DERMATOLOGIC: No rashes. MUSCULOSKELETAL: No joint effusions. NEUROLOGIC: No focal deficits. The patient's medications have been reviewed. LABORATORY DATA: Shows white count 9.7, hemoglobin 10.7, hematocrit 32.0, platelet count is 175. S odium 139, potassium 6.0, chloride 112, BUN 66, creatinine 2.63, phosphorus 7.1, calcium 8.1. The patient's chest x-ray is pending. ASSESSMENT AND PLAN: This is a 56-year-old male who presents with 1. Nonoliguric acute kidney injury on top of chronic kidney disease, stage IV, with a baseline crea tinine of 2.5 mg/dL. Etiology of acute kidney injury is likely secondary to hemodynamics with possi ble progression of underlying CKD. Plan at this point is to check a UA with microanalysis. We will check urine electrolytes. We will continue the patient on diuretic therapy as the patient is volum e overloaded. We will monitor renal function closely. If the patient's renal function does not imp rove and if the patient's hyperkalemia does not respond to medical therapy, would then consider star ting the patient on renal replacement therapy. 2. Hyperkalemia. Etiology is secondary to acute kidney injury, CKD, in conjunction with non renal diet. Plan is to medical management. We will give Kayexalate. We will give diuretic therapy. We will place the patient on low potassium diet. We will follow up BMP and potassium levels. If the p atient's hyperkalemic does not respond to medical management, we will consider starting renal replac ement therapy. 3. Metabolic acidosis secondary to acute kidney injury, CKD. We will check an ABG to see if the pa tient is appropriately compensated. We will continue to monitor. 4. Mineral bone disorder. Monitor calcium and phosphorus levels. We will resume the patient on ph osphate binders. 5. Volume overload secondary to acute kidney injury on chronic heart failure. Continue current diu retic management. Continue to monitor closely. Continue low sodium diet and monitor strict I's and O's closely. 6. Anemia of chronic disease. Monitor hemoglobin and hematocrit levels. We will give Epogen as ne eded. 7. Urinary tract infection. Continue current IV antibiotics. Follow up cultures. 8. Benign prostatic hypertrophy. Continue Flomax. 9. Hypertension. Continue current blood pressure regimen. 10. History of hepatitis C. Thank you, ____, for this interesting consult. It will be a pleasure to follow the patient with you throughout the hospital course. Dictated By: NAE SINHA/ERICKA Conf#: [id number] DID#: [id number]
[2016-11-02 10:32] LABS: AADO2 Arterial 6.3 mmHg (7.0-24.0); Allen Test ACCEPTAB; Arterial Base Excess -8.4 mmol/L (-3.0-3); Arterial COHb 0.2 % (0.0-3.0); Arterial Fraction of Oxyhgb 97.5 % (93.0-99.0); Arterial HCO3 16.2 mmol/L (22.0-26.0); Arterial MetHb 0.4 % (0.0-1.5); Arterial Total Hemglobin 10.2 g/dl (12.0-18.0); MODE NASAL CANNULA
[2016-11-02] MEDS: ALPRAZOLAM 0.25 MG TAB PO PRN ×2 (10:59→22:11)
[2016-11-02] MEDS: metroNIDAZOLE 500 MG TAB PO SCH ×2 (10:59→14:02)
[2016-11-02 11:19] LABS: ADD UMIC YES; UR BILIRUBIN (Dip) NEGATIVE (NEGATIVE); UR BLOOD (Dip) 2+ (NEGATIVE); UR CLARITY CLEAR (CLEAR); UR COLOR LT. YELLOW (YELLOW); UR GLUCOSE (Dip) NEGATIVE (NEGATIVE); UR KETONES (Dip) NEGATIVE (NEGATIVE); UR LEUKOCYTE ESTERASE (Dip) 1+ (NEGATIVE); UR NITRITE (Dip) NEGATIVE (NEGATIVE); UR TOTAL PROTEIN (Dip) 1+ (NEGATIVE); UR UROBILINOGEN (Dip) 0.2 E.U./dL (0.1-1.0)
[2016-11-02 11:32] LABS: BACTERIA,URINE MODERATE; URINE RBCS 25-50 /HPF (0)
[2016-11-02] MEDS ORDERED: hydrALAzine 20 MG INJ IV PRN (14:30)
[2016-11-02] MEDS: AMLODIPINE 5 MG TAB PO SCH ×2 (14:57→20:48)
[2016-11-02 15:15] LABS: CREATININE 2.58 mg/dl (0.61-1.24); POTASSIUM 5.6 mmol/L (3.5-5.1)
[2016-11-02] MEDS ORDERED: NACL 0.9% 3 ML SYG IV PRN (17:00)
[2016-11-02] MEDS ORDERED: CEFEPIME 2GM/50 ML (PMX) 50 ML IVPB SCH (21:00)
--- NOTE | 2016-11-02 22:16 | PN ---
DATE: 11/02/2016 SUBJECTIVE: No acute changes. The patient is awake, looks comfortable, denies pain, still has loos e stools. He was started on cefepime. He is also on Flagyl. PHYSICAL EXAMINATION: GENERAL: This is a wasted, cachectic, middle-aged man who is awake, in no distress. HEENT: Head atraumatic, normocephalic. Sclerae anicteric. Buccal mucosa pink. NECK: Supple. CHEST: Rise symmetrical. Breath sounds clear, diminished to bases. HEART: S1, S2. ABDOMEN: Soft. Bowel tones present. EXTREMITIES: Without cyanosis. ASSESSMENT: 1. Clostridium difficile colitis. 2. Positive urinalysis. 3. Acute on chronic kidney disease with a history of hemodialysis. 4. History of urinary tract infection. 5. Diabetes. 6. History of spinal osteomyelitis, completed 6 weeks of antibiotics. 7. 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 PLAN: The patient remains stable. Awaiting for urine cultures. Continue current antibiotics. Helen Jones to p.o. vancomycin. Dictated By: DORENE GARCIA TELEPHONE OPERATOR CHIEF for PARDEEP VAZQUEZ MD NI/NTS Conf#: [id number] DID#: [id number]
--- NOTE | 2016-11-02 23:59 | HP ---
Date/Time of Note Date/Time of Note DATE: 11/02/16 TIME: 23:59 Assessment/Plan VTE Prophylaxis VTE Prophylaxis Intervention: SCD's Lines/Catheters IV [facility]from [facility] Saline Lock Urinary Cath still in place: No Assessment/Plan Assessment/Plan 1. C-diff diarrhea 2. CKD 3. Hx of Psoas and spinal abscess with MRSA. and Osteomyelitis s/p laminectomy 4. BPH. 5. Recent left mastoid opacification with associated effusion compatible with osteomyelitis. 6. Anemia of chronic disease. 7. Hypothyroidism. 8. Essential hypertension. 9. Diabetes. PLAN cipro and flagyl for C-diff f/u stool tests ID consult Nephrology consult Cont home meds with adjustment as needed CT scan finding of spinal mass vs infectious process is likely 2/2 post surgical change HPI/ROS Admit Date/Time Admit Date/Time Nov 01, 2016 at 14:34 Hx of Present Illness This Is a 56-year-old male with history of hypothyroidism, diabetic retinopathy , psoas abscess, laminectomy, spinal osteomyelitis, hepatitis C, BPH, VRE conjunctivitis, chronic kidney disease, who initially went to outside hospital c /o N/V and diarrhea. He was diagnosed with c-diff. CT scan that was done showed Lumbar mass vs infectious process. He was transferred to [facility] since he is capitated to this hospital. He did have a history of spinal abscess and osteomyelitis and is s/p laminectomy. he has been transferred here to different hospitals in the past because of the transferring hospital insistence that he be evaluated by neurosurgery or ortho. Currently he denies back pain, but reports generalized weakness. . PMH/Family/Social Past Surgical History Past Surgical Hx: other Social History Smoking Status: Never smoker Exam/Review of Systems Vital Signs Vitals Vital Signs Date Time Temp Pulse Resp B/P Pulse Ox O2 Delivery O2 Flow Rate FiO2 11/02/16 19:32 97.8 61 20 114/68 98 11/01/16 15:00 Room Air Intake and Output 11/01/16 11/01/16 11/02/16 15:00 23:00 07:00 Intake Total 530 ml 1040 ml Output Total 600 ml 700 ml Balance -70 ml 340 ml Exam Constitutional: other (sleepy, but arousable. no acute distress) Head: atraumatic, normocephalic Respiratory: clear to auscultation, normal air movement Cardiovascular: nl pulses, regular rate and rhythm Gastrointestinal: non-tender, soft Musculoskeletal: other (well healed lower back surgical scar. no tenderness) Extremities: normal pulses Labs Result Diagram: 11/02/16 0546 11/02/16 1415 Medications Medications Current Medications Ondansetron HCl (Zofran Inj) 4 mg Q6H PRN IV NAUSEA AND/OR VOMITING; Start 03/10 at 17:30 Acetaminophen (Tylenol Tab) 650 mg Q6H PRN PO PAIN LEVEL 1-3 OR FEVER; Start at 17:30 Acetaminophen/ Hydrocodone Bitart ([place] (5/325)) 1 tab Q6H PRN PO MODERATE PAIN LEVEL 4-6; Start 11/01/16 at 17:30 Morphine Sulfate (morphine) 4 mg Q3H PRN IV SEVERE PAIN LEVEL 7-10 Last administered on 11/02/16 20:39; Admin Dose 4 MG; Start 11/01/16 at 17:30 Docusate Sodium (Colace) 100 mg Q12H PRN PO CONSTIPATION; Start 11/01/16 at 17: 30 Zolpidem Tartrate (Ambien) 5 mg QHS PRN PO SLEEP; Start 11/01/16 at 17:30 Ferrous Sulfate (Ferrous Sulfate (Ec)) 325 mg BID PO Last administered on 20:31; Admin Dose 325 MG; Start 11/01/16 at 21:00 Finasteride (Proscar) 5 mg DAILY PO Last administered on 11/02/16 08:19; Admin Dose 5 MG; Start 11/02/16 at 09:00 Hydralazine HCl (Apresoline) 50 mg TID PO Last administered on 11/02/16 12:14 ; Admin Dose 50 MG; Start 11/01/16 at 21:00 Levothyroxine Sodium (Synthroid) 75 mcg DAILY@06 PO Last administered on 06:07; Admin Dose 75 MCG; Start 11/02/16 at 06:00 Linagliptin (Tradjenta) 5 mg DAILY PO Last administered on 11/02/16 08:18; Admin Dose 5 MG; Start 11/02/16 at 09:00 Nifedipine (Procardia Xl) 60 mg BID PO Last administered on 11/02/16 08:19; Admin Dose 60 MG; Start 11/01/16 at 21:00 Pantoprazole (Protonix Tab) 40 mg DAILY@06 PO Last administered on 11/02/16 06 :07; Admin Dose 40 MG; Start 11/02/16 at 06:00 Senna (Senokot) 1 tab BID PO Last administered on 11/02/16 08:19; Admin Dose 1 TAB; Start 11/01/16 at 21:00 Simethicone (Mylicon) 80 mg Q6H PRN PO DISTENSION/GAS/BLOATING; Start 11/01/16 at 18:00 Tamsulosin HCl (Flomax) 0.4 mg DAILY PO Last administered on 11/02/16 08:19; Admin Dose 0.4 MG; Start 11/02/16 at 09:00 Lactobacillus Acidophilus (Florajen3 Capsule) 1 each BID PO Last administered on 11/02/16 20:31; Admin Dose 1 EACH; Start 11/01/16 at 21:00 Diagnostic Test (Pha) (Accu-Chek) 1 ea 02 XX ; Start 11/02/16 at 02:00 Miscellaneous Information 1 ea NOTE XX ; Start 11/01/16 at 18:00 Glucose (Glutose) 15 gm Q15M PRN PO DECREASED GLUCOSE; Start 11/01/16 at 18:00 Glucose (Glutose) 22.5 gm Q15M PRN PO DECREASED GLUCOSE; Start 11/01/16 at 18: 00 Dextrose (D50w Syringe) 25 ml Q15M PRN IV DECREASED GLUCOSE; Start 11/01/16 at 18:00 Dextrose (D50w Syringe) 50 ml Q15M PRN IV DECREASED GLUCOSE; Start 11/01/16 at 18:00 Glucagon (Glucagen) 1 mg Q15M PRN IM DECREASED GLUCOSE; Start 11/01/16 at 18:00 Glucose (Glutose) 15 gm Q15M PRN BUCCAL DECREASED GLUCOSE; Start 11/01/16 at 18 :00 Alprazolam (Xanax) 0.25 mg Q8H PRN PO ANXIETY Last administered on 11/02/16 22 :11; Admin Dose 0.25 MG; Start 11/02/16 at 10:30 Amlodipine Besylate (Norvasc) 5 mg BID PO Last administered on 6/11/17at 14:57 ; Admin Dose 5 MG; Start 11/02/16 at 14:30 Hydralazine HCl (Apresoline) 10 mg Q4H PRN IV sbp>160 Last administered on 11/02t 14:58; Admin Dose 10 MG; Start 11/02/16 at 14:30 IV Flush 3 ml 3 ml PRN PRN IV FLUSH LINE; Start 11/02/16 at 17:00 Cefepime HCl (Maxipime 2gm/50 ml (Pmx)) 50 ml @ 100 mls/hr 09 IVPB ; Start 05/10 at 09:00 Vancomycin HCl (Vancomycin Oral Syringe) 125 mg Q6 PO ; Start 11/03/16 at 00:00 GIOVANNI ODELL MD Nov 02, 2016 23:59
[2016-11-03] MEDS: ACCU-CHEK XX SCH (02:00)
[2016-11-03 05:48] LABS: ADD SCAN DIFF NO
[2016-11-03 06:00] VITALS: BP 100/57; PULSE 62
[2016-11-03] MEDS: PANTOPRAZOLE (EC) 40 MG TAB PO SCH (06:01)
[2016-11-03] MEDS: LEVOTHYROXINE 75 MCG TAB PO SCH (06:01)
[2016-11-03] MEDS: VANCOMYCIN HCL 250 MG/5ML POSYG PO SCH ×5 (06:02→23:09)
[2016-11-03] MEDS: FUROSEMIDE 40 MG TAB PO SCH ×2 (06:02→08:52)
[2016-11-03 06:05] LABS: BASOPHILS % 0.3 % (0.0-2.0); EOSINOPHILS # 0.1 10^3/ul (0.0-0.5); EOSINOPHILS % 1.1 % (0.0-7.0); HEMATOCRIT 28.4 % (42.0-52.0); HEMOGLOBIN 9.4 g/dl (14.0-18.0); LYMPHOCYTES # 1.2 10^3/ul (0.8-2.9); LYMPHOCYTES % 15.7 % (15.0-51.0); MEAN CORPUSCULAR HEMOGLOBIN 30.3 pg (29.0-33.0); MEAN CORPUSCULAR HGB CONC 33.1 g/dl (32.0-37.0); MEAN CORPUSCULAR VOLUME 91.6 fl (82.0-101.0); MEAN PLATELET VOLUME 9.6 fl (7.4-10.4); MONOCYTE # 0.7 10^3/ul (0.3-0.9); MONOCYTES % 9.4 % (0.0-11.0); NEUTROPHIL # 5.4 10^3/ul (1.6-7.5); NEUTROPHILS % 73.4 % (39.0-77.0); PLATELET COUNT 194 10^3/UL (140-415); RED CELL DISTRIBUTION WIDTH 16.2 % (11.5-14.5); WHITE BLOOD COUNT 7.4 10^3/ul (4.8-10.8)
[2016-11-03] MEDS: morphine 2 MG INJ IV PRN ×4 (06:06→23:42)
[2016-11-03 06:20] LABS: CALCIUM 7.8 mg/dl (8.4-10.2); CREATININE 2.81 mg/dl (0.61-1.24); MAGNESIUM 2.3 mg/dl (1.7-2.5); PHOSPHORUS 7.3 mg/dl (2.5-4.9); POTASSIUM 5.6 mmol/L (3.5-5.1)
[2016-11-03 07:39] VITALS: BP 103/64; RESP 16
[2016-11-03] MEDS: INSULIN ASPART [NOVOLOG] 3 ML PEN SC SCH ×4 (07:51→20:14)
[2016-11-03] MEDS ORDERED: NA POLYST SULFON 15 GM/60 ML BTL PO ONE (08:30)
[2016-11-03] MEDS: TAMSULOSIN (SR) 0.4 MG CAP PO SCH (08:45)
[2016-11-03] MEDS: SENNA TAB PO SCH ×2 (08:46→20:19)
[2016-11-03] MEDS: LINAGLIPTIN 5 MG TABLET PO SCH (08:46)
[2016-11-03] MEDS: FINASTERIDE 5 MG TAB PO SCH (08:46)
[2016-11-03] MEDS: NIFEdipine (XL) 60 MG TAB PO SCH ×2 (08:47→20:11)
[2016-11-03] MEDS: FERROUS SULFATE (EC) 325 MG TAB PO SCH ×2 (08:47→20:12)
[2016-11-03] MEDS: AMLODIPINE 5 MG TAB PO SCH ×2 (08:47→20:10)
--- NOTE | 2016-11-03 08:57 | PN ---
DATE: 11/03/2016 SUBJECTIVE: The patient is stable, no acute events overnight. No fever, chills, nausea, vomiting. OBJECTIVE: VITAL SIGNS: Blood pressure 103/64, respiration 16, pulse 66, temperature 97.7. HEENT: Head is normocephalic. NECK: Supple. HEART: Regular rate. LUNGS: Show diminished breath sounds at base. ABDOMEN: Soft, nontender to palpation, without rebound or guarding. EXTREMITIES: Negative for clubbing, cyanosis. Positive edema. DERMATOLOGIC: No rashes. MUSCULOSKELETAL: No joint effusions. NEUROLOGIC: No change in exam. MEDICATIONS: The patient's medications have been reviewed. LABORATORY DATA: Shows sodium 139, potassium 5.6, chloride 112, BUN 66, creatinine 2.81, calcium 7. 8, phosphorus 7.3. ABG shows pH 7.34 with a pCO2 of 30. Urinalysis was reviewed. ASSESSMENT AND PLAN: 1. Nonoliguric acute kidney injury on top of chronic kidney disease stage IV, with a baseline creat inine around 2.5 mg/dL. Etiology of acute kidney injury is secondary to hemodynamics with possible progression of chronic kidney disease. The patient's renal function continues to fluctuate. At thi s point, we will continue current treatment plan, supportive care, renally dose all meds. Please no te that patient's creatinine is over estimated EGFR, as patient is markedly cachectic. We will obse rve closely. 2. Hyperkalemia secondary to acute kidney injury and chronic kidney disease. The patient's potassi um levels remain mildly elevated. We will continue low-potassium diet. We will give another dose o f Kayexalate, continue diuretic therapy, monitor closely. If the hyperkalemia does not improve, we will consider restarting renal replacement therapy. 3. Metabolic acidosis secondary to acute kidney injury and chronic kidney disease. Patient is appr opriately compensated. Continue to monitor bicarbonate levels. 4. Mineral bone disorder. Continue to monitor calcium and phosphorus levels. We will increase Chely gel to 1600 mg t.i.d. with meals. 5. Volume overload secondary to acute kidney injury and congestive heart failure. Continue diureti c regimen. We will deescalate Lasix to 40 mg daily as renal function has declined in the last 24 ho urs. 6. Anemia of chronic disease. Monitor hemoglobin and hematocrit levels. Continue Epogen. 7. Urinary tract infection. Continue antibiotic therapy. 8. Benign prostatic hypertrophy. Continue Flomax. 9. Hypertension. 10. History of hepatitis C. Dictated By: NAE SINHA/ERICKA Conf#: [id number] DID#: [id number]
[2016-11-03] MEDS ORDERED: CEFEPIME 2GM/50 ML (PMX) 50 ML IVPB SCH (09:00)
[2016-11-03] MEDS: ALPRAZOLAM 0.25 MG TAB PO PRN ×2 (10:21→20:17)
[2016-11-03] MEDS: L ACIDOPHIL/B LACTIS/B LONGUM CAPSULE PO SCH ×2 (10:21→20:11)
[2016-11-03] MEDS: SEVELAMER 800 MG TAB PO SCH ×2 (12:27→17:46)
--- NOTE | 2016-11-03 13:43 | CONS ---
Date/Time of Note Date/Time of Note DATE: 11/03/16 TIME: 13:40 Assessment/Plan Assessment/Plan Chief Complaint/Hosp Course SUBJECTIVE: No acute changes. The patient is awake, looks comfortable, denies pain, still has loose stools. No dysuria Abx: PO Vanco, Cefepime. PHYSICAL EXAMINATION: GENERAL: This is a wasted, cachectic, middle-aged man who is awake, in no distress. HEENT: Head atraumatic, normocephalic. Sclerae anicteric. Buccal mucosa pink. NECK: Supple. CHEST: Rise symmetrical. Breath sounds clear, diminished to bases. HEART: S1, S2. ABDOMEN: Soft. Bowel tones present. EXTREMITIES: Without cyanosis. ASSESSMENT: 1. Clostridium difficile colitis. 2. Positive urinalysis. 3. Acute on chronic kidney disease with a history of hemodialysis. 4. History of urinary tract infection. 5. Diabetes. 6. History of spinal osteomyelitis, completed 6 weeks of antibiotics. 7. 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 PLAN: The patient remains stable. Will dc Cefepime, continue PO Vanco Awaiting for urine cultures. DW staff Problems: Consultation Date/Type/Reason Admit Date/Time Nov 01, 2016 at 14:34 Initial Consult Date Type of Consultation: ID Exam/Review of Systems Vital Signs Vitals Vital Signs Date Time Temp Pulse Resp B/P Pulse Ox O2 Delivery O2 Flow Rate FiO2 11/03/16 07:39 97.7 66 16 103/64 96 11/01/16 15:00 Room Air Intake and Output 11/02/16 11/02/16 11/03/16 15:00 23:00 07:00 Intake Total 250 ml 1380 ml 680 ml Output Total 1100 ml 300 ml Balance 250 ml 280 ml 380 ml Results Result Diagram: 11/03/16 0440 11/03/16 0440 Results 24 hrs Laboratory Tests Test 11/02/16 14:15 11/02/16 17:49 11/02/16 20:27 11/03/16 04:40 Sodium Level 137 139 Potassium Level 5.6 H 5.6 H Chloride Level 111 H 112 H Carbon Dioxide Level 18 L 17 L Anion Gap 14 16 Blood Urea Nitrogen 66 H 66 H Creatinine 2.58 H 2.81 H Glucose Level 159 107 # Calcium Level 8.0 L 7.8 L Bedside Glucose 146 111 White Blood Count 7.4 # Red Blood Count 3.10 L Hemoglobin 9.4 L Hematocrit 28.4 L Mean Corpuscular Volume 91.6 Mean Corpuscular Hemoglobin 30.3 Mean Corpuscular Hemoglobin Concent 33.1 Red Cell Distribution Width 16.2 H Platelet Count 194 Mean Platelet Volume 9.6 Neutrophils % 73.4 Lymphocytes % 15.7 Monocytes % 9.4 Eosinophils % 1.1 Basophils % 0.3 Nucleated Red Blood Cells % 0.0 Neutrophils # 5.4 Lymphocytes # 1.2 Monocytes # 0.7 Eosinophils # 0.1 Basophils # 0.0 Nucleated Red Blood Cells # 0.0 Phosphorus Level 7.3 H Magnesium Level 2.3 Test 11/03/16 07:47 11/03/16 11:32 Bedside Glucose 149 148 Medications Medications Current Medications Ondansetron HCl (Zofran Inj) 4 mg Q6H PRN IV NAUSEA AND/OR VOMITING; Start 03/10 at 17:30 Acetaminophen (Tylenol Tab) 650 mg Q6H PRN PO PAIN LEVEL 1-3 OR FEVER; Start at 17:30 Acetaminophen/ Hydrocodone Bitart ([place] (5/325)) 1 tab Q6H PRN PO MODERATE PAIN LEVEL 4-6; Start 11/01/16 at 17:30 Morphine Sulfate (morphine) 4 mg Q3H PRN IV SEVERE PAIN LEVEL 7-10 Last administered on 11/03/16 12:31; Admin Dose 4 MG; Start 11/01/16 at 17:30 Docusate Sodium (Colace) 100 mg Q12H PRN PO CONSTIPATION; Start 11/01/16 at 17: 30 Zolpidem Tartrate (Ambien) 5 mg QHS PRN PO SLEEP; Start 11/01/16 at 17:30 Ferrous Sulfate (Ferrous Sulfate (Ec)) 325 mg BID PO Last administered on 08:47; Admin Dose 325 MG; Start 11/01/16 at 21:00 Finasteride (Proscar) 5 mg DAILY PO Last administered on 11/03/16 08:46; Admin Dose 5 MG; Start 11/02/16 at 09:00 Hydralazine HCl (Apresoline) 50 mg TID PO Last administered on 11/03/16 12:27 ; Admin Dose 50 MG; Start 11/01/16 at 21:00 Levothyroxine Sodium (Synthroid) 75 mcg DAILY@06 PO Last administered on 06:01; Admin Dose 75 MCG; Start 11/02/16 at 06:00 Linagliptin (Tradjenta) 5 mg DAILY PO Last administered on 11/03/16 08:46; Admin Dose 5 MG; Start 11/02/16 at 09:00 Nifedipine (Procardia Xl) 60 mg BID PO Last administered on 11/03/16 08:47; Admin Dose 60 MG; Start 11/01/16 at 21:00 Pantoprazole (Protonix Tab) 40 mg DAILY@06 PO Last administered on 11/03/16 06 :01; Admin Dose 40 MG; Start 11/02/16 at 06:00 Senna (Senokot) 1 tab BID PO Last administered on 11/03/16 08:46; Admin Dose 1 TAB; Start 11/01/16 at 21:00 Simethicone (Mylicon) 80 mg Q6H PRN PO DISTENSION/GAS/BLOATING; Start 11/01/16 at 18:00 Tamsulosin HCl (Flomax) 0.4 mg DAILY PO Last administered on 11/03/16 08:45; Admin Dose 0.4 MG; Start 11/02/16 at 09:00 Lactobacillus Acidophilus (Florajen3 Capsule) 1 each BID PO Last administered on 11/03/16 10:21; Admin Dose 1 EACH; Start 11/01/16 at 21:00 Diagnostic Test (Pha) (Accu-Chek) 1 ea 02 XX ; Start 11/02/16 at 02:00 Miscellaneous Information 1 ea NOTE XX ; Start 11/01/16 at 18:00 Glucose (Glutose) 15 gm Q15M PRN PO DECREASED GLUCOSE; Start 11/01/16 at 18:00 Glucose (Glutose) 22.5 gm Q15M PRN PO DECREASED GLUCOSE; Start 11/01/16 at 18: 00 Dextrose (D50w Syringe) 25 ml Q15M PRN IV DECREASED GLUCOSE; Start 11/01/16 at 18:00 Dextrose (D50w Syringe) 50 ml Q15M PRN IV DECREASED GLUCOSE; Start 11/01/16 at 18:00 Glucagon (Glucagen) 1 mg Q15M PRN IM DECREASED GLUCOSE; Start 11/01/16 at 18:00 Glucose (Glutose) 15 gm Q15M PRN BUCCAL DECREASED GLUCOSE; Start 11/01/16 at 18 :00 Alprazolam (Xanax) 0.25 mg Q8H PRN PO ANXIETY Last administered on 11/03/16 10 :21; Admin Dose 0.25 MG; Start 11/02/16 at 10:30 Amlodipine Besylate (Norvasc) 5 mg BID PO Last administered on 11/03/16 08:47 ; Admin Dose 5 MG; Start 11/02/16 at 14:30 Hydralazine HCl (Apresoline) 10 mg Q4H PRN IV sbp>160 Last administered on 11/02 14:58; Admin Dose 10 MG; Start 11/02/16 at 14:30 IV Flush 3 ml 3 ml PRN PRN IV FLUSH LINE; Start 11/02/16 at 17:00 Cefepime HCl (Maxipime 2gm/50 ml (Pmx)) 50 ml @ 100 mls/hr 09 IVPB Last administered on 11/03/16 08:52; Admin Dose 100 MLS/HR; Start 11/03/16 at 09:00 Vancomycin HCl (Vancomycin Oral Syringe) 125 mg Q6 PO Last administered on 11/03 12:28; Admin Dose 125 MG; Start 11/03/16 at 00:00 Furosemide (Lasix) 40 mg DAILY PO Last administered on 11/03/16 08:52; Admin Dose 40 MG; Start 11/03/16 at 09:00 DORENE GARCIA NP Nov 03, 2016 13:43
[2016-11-03 15:28] LABS: MICROALBUMIN 35.1 mg/dL
--- NOTE | 2016-11-03 17:22 | PN ---
Date/Time of Note Date/Time of Note DATE: 11/03/16 TIME: 17:17 Assessment/Plan VTE Prophylaxis VTE Prophylaxis Intervention: SCD's Lines/Catheters IV [facility]ter Type [facility]from [facility] Urinary Cath still in place: No Assessment/Plan Assessment/Plan 1. Clostridium difficile colitis. 2. UTI with dirty Urine analysis 3. Acute on chronic kidney disease with a history of hemodialysis. 4. History of urinary tract infection. 5. Diabetes. 6. History of spinal osteomyelitis, completed 6 weeks of antibiotics. 7. 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 Plan: IV abx cefepime, PO vancomycin for Cl difficle,, ID following, stool studies sent Nephrolgoy has been following for ALEXEI on CKD Cr stable, lasix changed to PO no IVF fluids ambulate pt SCD for DVT prophylaxis Subjective 24 Hr Interval Summary Free Text/Dictation c/o abdominal/flank pain, Bp stable Exam/Review of Systems Vital Signs Vitals Vital Signs Date Time Temp Pulse Resp B/P Pulse Ox O2 Delivery O2 Flow Rate FiO2 11/03/16 07:39 97.7 66 16 103/64 96 11/01/16 15:00 Room Air Intake and Output 11/02/16 11/02/16 11/03/16 14:59 22:59 06:59 Intake Total 250 ml 1380 ml 680 ml Output Total 1100 ml 300 ml Balance 250 ml 280 ml 380 ml Exam GENERAL: This is a wasted, cachectic, middle-aged man who is awake, in no distress. HEENT: Head atraumatic, normocephalic. Sclerae anicteric. Buccal mucosa pink. NECK: Supple. CHEST: Rise symmetrical. Breath sounds clear, diminished to bases. HEART: S1, S2. ABDOMEN: Soft. Bowel tones present. EXTREMITIES: Without cyanosis. Results Result Diagram: 11/03/16 0440 11/03/16 0440 Results 24 hrs Laboratory Tests Test 11/02/16 17:49 11/02/16 20:27 11/03/16 04:40 11/03/16 07:47 Bedside Glucose 146 111 149 White Blood Count 7.4 # Red Blood Count 3.10 L Hemoglobin 9.4 L Hematocrit 28.4 L Mean Corpuscular Volume 91.6 Mean Corpuscular Hemoglobin 30.3 Mean Corpuscular Hemoglobin Concent 33.1 Red Cell Distribution Width 16.2 H Platelet Count 194 Mean Platelet Volume 9.6 Neutrophils % 73.4 Lymphocytes % 15.7 Monocytes % 9.4 Eosinophils % 1.1 Basophils % 0.3 Nucleated Red Blood Cells % 0.0 Neutrophils # 5.4 Lymphocytes # 1.2 Monocytes # 0.7 Eosinophils # 0.1 Basophils # 0.0 Nucleated Red Blood Cells # 0.0 Sodium Level 139 Potassium Level 5.6 H Chloride Level 112 H Carbon Dioxide Level 17 L Anion Gap 16 Blood Urea Nitrogen 66 H Creatinine 2.81 H Glucose Level 107 # Calcium Level 7.8 L Phosphorus Level 7.3 H Magnesium Level 2.3 Test 11/03/16 11:32 11/03/16 17:08 Bedside Glucose 148 197 Medications Medications Current Medications Ondansetron HCl (Zofran Inj) 4 mg Q6H PRN IV NAUSEA AND/OR VOMITING; Start 03/10 at 17:30 Acetaminophen (Tylenol Tab) 650 mg Q6H PRN PO PAIN LEVEL 1-3 OR FEVER; Start at 17:30 Acetaminophen/ Hydrocodone Bitart ([place] (5/325)) 1 tab Q6H PRN PO MODERATE PAIN LEVEL 4-6; Start 11/01/16 at 17:30 Morphine Sulfate (morphine) 4 mg Q3H PRN IV SEVERE PAIN LEVEL 7-10 Last administered on 11/03/16 15:22; Admin Dose 4 MG; Start 11/01/16 at 17:30 Docusate Sodium (Colace) 100 mg Q12H PRN PO CONSTIPATION; Start 11/01/16 at 17: 30 Zolpidem Tartrate (Ambien) 5 mg QHS PRN PO SLEEP; Start 11/01/16 at 17:30 Ferrous Sulfate (Ferrous Sulfate (Ec)) 325 mg BID PO Last administered on 08:47; Admin Dose 325 MG; Start 11/01/16 at 21:00 Finasteride (Proscar) 5 mg DAILY PO Last administered on 11/03/16 08:46; Admin Dose 5 MG; Start 11/02/16 at 09:00 Hydralazine HCl (Apresoline) 50 mg TID PO Last administered on 11/03/16 12:27 ; Admin Dose 50 MG; Start 11/01/16 at 21:00 Levothyroxine Sodium (Synthroid) 75 mcg DAILY@06 PO Last administered on 06:01; Admin Dose 75 MCG; Start 11/02/16 at 06:00 Linagliptin (Tradjenta) 5 mg DAILY PO Last administered on 11/03/16 08:46; Admin Dose 5 MG; Start 11/02/16 at 09:00 Nifedipine (Procardia Xl) 60 mg BID PO Last administered on 11/03/16 08:47; Admin Dose 60 MG; Start 11/01/16 at 21:00 Pantoprazole (Protonix Tab) 40 mg DAILY@06 PO Last administered on 11/03/16 06 :01; Admin Dose 40 MG; Start 11/02/16 at 06:00 Senna (Senokot) 1 tab BID PO Last administered on 11/03/16 08:46; Admin Dose 1 TAB; Start 11/01/16 at 21:00 Simethicone (Mylicon) 80 mg Q6H PRN PO DISTENSION/GAS/BLOATING; Start 11/01/16 at 18:00 Tamsulosin HCl (Flomax) 0.4 mg DAILY PO Last administered on 11/03/16 08:45; Admin Dose 0.4 MG; Start 11/02/16 at 09:00 Lactobacillus Acidophilus (Florajen3 Capsule) 1 each BID PO Last administered on 11/03/16 10:21; Admin Dose 1 EACH; Start 11/01/16 at 21:00 Diagnostic Test (Pha) (Accu-Chek) 1 ea 02 XX ; Start 11/02/16 at 02:00 Miscellaneous Information 1 ea NOTE XX ; Start 11/01/16 at 18:00 Glucose (Glutose) 15 gm Q15M PRN PO DECREASED GLUCOSE; Start 11/01/16 at 18:00 Glucose (Glutose) 22.5 gm Q15M PRN PO DECREASED GLUCOSE; Start 11/01/16 at 18: 00 Dextrose (D50w Syringe) 25 ml Q15M PRN IV DECREASED GLUCOSE; Start 11/01/16 at 18:00 Dextrose (D50w Syringe) 50 ml Q15M PRN IV DECREASED GLUCOSE; Start 11/01/16 at 18:00 Glucagon (Glucagen) 1 mg Q15M PRN IM DECREASED GLUCOSE; Start 11/01/16 at 18:00 Glucose (Glutose) 15 gm Q15M PRN BUCCAL DECREASED GLUCOSE; Start 11/01/16 at 18 :00 Alprazolam (Xanax) 0.25 mg Q8H PRN PO ANXIETY Last administered on 11/03/16 10 :21; Admin Dose 0.25 MG; Start 11/02/16 at 10:30 Amlodipine Besylate (Norvasc) 5 mg BID PO Last administered on 11/03/16 08:47 ; Admin Dose 5 MG; Start 11/02/16 at 14:30 Hydralazine HCl (Apresoline) 10 mg Q4H PRN IV sbp>160 Last administered on 11/02 14:58; Admin Dose 10 MG; Start 11/02/16 at 14:30 IV Flush (NS 3 ml) 3 ml PRN PRN IV FLUSH LINE; Start 11/02/16 at 17:00 Vancomycin HCl (Vancomycin Oral Syringe) 125 mg Q6 PO Last administered on 11/03 12:28; Admin Dose 125 MG; Start 11/03/16 at 00:00 Furosemide (Lasix) 40 mg DAILY PO Last administered on 11/03/16 08:52; Admin Dose 40 MG; Start 11/03/16 at 09:00 BHUMI CONRAD MD Nov 03, 2016 17:21
[2016-11-03] MEDS: morphine (ER) 15 MG TAB PO SCH (20:12)
[2016-11-03 20:45] VITALS: BP 98/55; RESP 18
[2016-11-04] MEDS: ACCU-CHEK XX SCH (01:51)
[2016-11-04] MEDS: LEVOTHYROXINE 75 MCG TAB PO SCH (05:52)
[2016-11-04] MEDS: PANTOPRAZOLE (EC) 40 MG TAB PO SCH (05:52)
[2016-11-04] MEDS: VANCOMYCIN HCL 250 MG/5ML POSYG PO SCH ×4 (05:52→23:48)
[2016-11-04] MEDS: morphine 2 MG INJ IV PRN ×2 (05:52→13:45)
[2016-11-04 06:00] LABS: CALCIUM 7.2 mg/dl (8.4-10.2); CREATININE 3.21 mg/dl (0.61-1.24); MAGNESIUM 2.3 mg/dl (1.7-2.5); POTASSIUM 5.1 mmol/L (3.5-5.1)
[2016-11-04 08:06] VITALS: BP 111/66; RESP 20
[2016-11-04] MEDS: SEVELAMER 800 MG TAB PO SCH ×3 (08:27→18:08)
[2016-11-04] MEDS: INSULIN ASPART [NOVOLOG] 3 ML PEN SC SCH ×4 (08:35→21:01)
[2016-11-04] MEDS: L ACIDOPHIL/B LACTIS/B LONGUM CAPSULE PO SCH ×2 (10:06→20:50)
[2016-11-04] MEDS: FINASTERIDE 5 MG TAB PO SCH (10:07)
[2016-11-04] MEDS: FUROSEMIDE 40 MG TAB PO SCH (10:07)
[2016-11-04] MEDS: LINAGLIPTIN 5 MG TABLET PO SCH (10:07)
[2016-11-04] MEDS: AMLODIPINE 5 MG TAB PO SCH ×2 (10:07→20:57)
[2016-11-04] MEDS: TAMSULOSIN (SR) 0.4 MG CAP PO SCH (10:07)
[2016-11-04] MEDS: NIFEdipine (XL) 60 MG TAB PO SCH ×2 (10:08→20:57)
[2016-11-04] MEDS: SENNA TAB PO SCH ×2 (10:08→20:57)
[2016-11-04] MEDS: morphine (ER) 15 MG TAB PO SCH ×2 (10:09→20:55)
[2016-11-04] MEDS: FERROUS SULFATE (EC) 325 MG TAB PO SCH ×2 (10:09→20:52)
--- NOTE | 2016-11-04 11:57 | PN ---
DATE: 11/04/2016 PHYSICAL EXAMINATION VITAL SIGNS: blood pressure 101/66, respirations 20, pulse 97.6. HEENT: Head is normocephalic. NECK: Supple. HEART: Regular rate. LUNGS: Show diminished breath sounds at the base. ABDOMEN: Soft, nontender to palpation without rebound or guarding. EXTREMITIES: Negative without clubbing, cyanosis. No edema. DERMATOLOGIC: No rashes. MUSCULOSKELETAL: No joint effusion. NEUROLOGIC: No change in exam. MEDICATIONS: The patient's medications have been reviewed. LABORATORY DATA: Showed ____ 138, potassium ____ 7.4, hemoglobin 9.4, hematocrit ____ . Platelet c ount 194. ____ cultures have been reviewed. ASSESSMENT AND PLAN: 1. Nonoliguric acute kidney injury on top of chronic kidney disease stage IV. ____ acute kidney injury secondary to hemodynamics, possible diuretic therapy. ____ The patient at this point ____ plan is to hold diuretic therapy. Continue supportive care. Renally dose all meds. chronic kidney disease. The patient's ____ improved. Continue to monitor closely. Continue ____ . 2. ____ chronic kidney disease. Continue to monitor. 3. Mineral bone disorder. Continue to monitor calcium and phosphorus levels. Continue Renagel. 4. Volume overload. ____ congestive heart failure. The patient ____. Therapy and ____ . 5. Anemia. Continue to monitor H and H levels. Continue Epogen. 6. Urinary tract infection. Continue current antibiotic regimen. 7. ____ . 8. Hypertension. Continue to monitor. 9. ____ . Dictated By: NAE SINHA/ERICKA Conf#: [id number] DID#: [id number]
--- NOTE | 2016-11-04 13:09 | CONS ---
Date/Time of Note Date/Time of Note DATE: 11/04/16 TIME: 13:08 Assessment/Plan Assessment/Plan Chief Complaint/Hosp Course SUBJECTIVE: No acute changes. The patient is awake, looks comfortable, no fevers Abx: PO Vanco PHYSICAL EXAMINATION: GENERAL: This is a wasted, cachectic, middle-aged man who is awake, in no distress. HEENT: Head atraumatic, normocephalic. Sclerae anicteric. Buccal mucosa pink. NECK: Supple. CHEST: Rise symmetrical. Breath sounds clear, diminished to bases. HEART: S1, S2. ABDOMEN: Soft. Bowel tones present. EXTREMITIES: Without cyanosis. ASSESSMENT: 1. Clostridium difficile colitis. 2. Positive urinalysis. 3. Acute on chronic kidney disease with a history of hemodialysis. 4. History of urinary tract infection. 5. Diabetes. 6. History of spinal osteomyelitis, completed 6 weeks of antibiotics. 7. 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 PLAN: The patient remains stable. Continue PO Roberto [facility] staff Problems: Consultation Date/Type/Reason Admit Date/Time Nov 01, 2016 at 14:34 Type of Consultation: ID Exam/Review of Systems Vital Signs Vitals Vital Signs Date Time Temp Pulse Resp B/P Pulse Ox O2 Delivery O2 Flow Rate FiO2 11/04/16 08:06 97.6 20 111/66 98 11/03/16 20:45 81 11/01/16 15:00 Room Air Intake and Output 11/03/16 11/03/16 11/04/16 15:00 23:00 07:00 Intake Total 1130 ml 240 ml Balance 1130 ml 240 ml Results Result Diagram: 11/03/16 0440 11/04/16 0456 Results 24 hrs Laboratory Tests Test 11/03/16 17:08 11/03/16 20:13 11/04/16 01:47 11/04/16 04:56 Bedside Glucose 197 214 225 H Sodium Level 138 Potassium Level 5.1 Chloride Level 111 H Carbon Dioxide Level 17 L Anion Gap 15 Blood Urea Nitrogen 65 H Creatinine 3.21 H Glucose Level 207 # Calcium Level 7.2 L Magnesium Level 2.3 Test 11/04/16 08:25 11/04/16 12:25 Bedside Glucose 236 H 206 Medications Medications Current Medications Ondansetron HCl (Zofran Inj) 4 mg Q6H PRN IV NAUSEA AND/OR VOMITING; Start 03/10 at 17:30 Acetaminophen (Tylenol Tab) 650 mg Q6H PRN PO PAIN LEVEL 1-3 OR FEVER; Start at 17:30 Acetaminophen/ Hydrocodone Bitart ([place] (5/325)) 1 tab Q6H PRN PO MODERATE PAIN LEVEL 4-6; Start 11/01/16 at 17:30 Docusate Sodium (Colace) 100 mg Q12H PRN PO CONSTIPATION; Start 11/01/16 at 17: 30 Zolpidem Tartrate (Ambien) 5 mg QHS PRN PO SLEEP; Start 11/01/16 at 17:30 Ferrous Sulfate (Ferrous Sulfate (Ec)) 325 mg BID PO Last administered on 10:09; Admin Dose 325 MG; Start 11/01/16 at 21:00 Finasteride (Proscar) 5 mg DAILY PO Last administered on 11/04/16 10:07; Admin Dose 5 MG; Start 11/02/16 at 09:00 Hydralazine HCl (Apresoline) 50 mg TID PO Last administered on 11/04/16 10:08 ; Admin Dose 50 MG; Start 11/01/16 at 21:00 Levothyroxine Sodium (Synthroid) 75 mcg DAILY@06 PO Last administered on 05:52; Admin Dose 75 MCG; Start 11/02/16 at 06:00 Linagliptin (Tradjenta) 5 mg DAILY PO Last administered on 11/04/16 10:07; Admin Dose 5 MG; Start 11/02/16 at 09:00 Nifedipine (Procardia Xl) 60 mg BID PO Last administered on 11/04/16 10:08; Admin Dose 60 MG; Start 11/01/16 at 21:00 Pantoprazole (Protonix Tab) 40 mg DAILY@06 PO Last administered on 11/04/16 05 :52; Admin Dose 40 MG; Start 11/02/16 at 06:00 Senna (Senokot) 1 tab BID PO Last administered on 11/04/16 10:08; Admin Dose 1 TAB; Start 11/01/16 at 21:00 Simethicone (Mylicon) 80 mg Q6H PRN PO DISTENSION/GAS/BLOATING; Start 11/01/16 at 18:00 Tamsulosin HCl (Flomax) 0.4 mg DAILY PO Last administered on 11/04/16 10:07; Admin Dose 0.4 MG; Start 11/02/16 at 09:00 Lactobacillus Acidophilus (Florajen3 Capsule) 1 each BID PO Last administered on 11/04/16 10:06; Admin Dose 1 EACH; Start 11/01/16 at 21:00 Diagnostic Test (Pha) (Accu-Chek) 1 ea 02 XX ; Start 11/02/16 at 02:00 Miscellaneous Information 1 ea NOTE XX ; Start 11/01/16 at 18:00 Glucose (Glutose) 15 gm Q15M PRN PO DECREASED GLUCOSE; Start 11/01/16 at 18:00 Glucose (Glutose) 22.5 gm Q15M PRN PO DECREASED GLUCOSE; Start 11/01/16 at 18: 00 Dextrose (D50w Syringe) 25 ml Q15M PRN IV DECREASED GLUCOSE; Start 11/01/16 at 18:00 Dextrose (D50w Syringe) 50 ml Q15M PRN IV DECREASED GLUCOSE; Start 11/01/16 at 18:00 Glucagon (Glucagen) 1 mg Q15M PRN IM DECREASED GLUCOSE; Start 11/01/16 at 18:00 Glucose (Glutose) 15 gm Q15M PRN BUCCAL DECREASED GLUCOSE; Start 11/01/16 at 18 :00 Alprazolam (Xanax) 0.25 mg Q8H PRN PO ANXIETY Last administered on 11/03/16 20 :17; Admin Dose 0.25 MG; Start 11/02/16 at 10:30 Amlodipine Besylate (Norvasc) 5 mg BID PO Last administered on 11/04/16 10:07 ; Admin Dose 5 MG; Start 11/02/16 at 14:30 Hydralazine HCl (Apresoline) 10 mg Q4H PRN IV sbp>160 Last administered on 11/02 14:58; Admin Dose 10 MG; Start 11/02/16 at 14:30 IV Flush (NS 3 ml) 3 ml PRN PRN IV FLUSH LINE; Start 11/02/16 at 17:00 Vancomycin HCl (Vancomycin Oral Syringe) 125 mg Q6 PO Last administered on 11/04 12:26; Admin Dose 125 MG; Start 11/03/16 at 00:00 Furosemide (Lasix) 40 mg DAILY PO Last administered on 11/04/16 10:07; Admin Dose 40 MG; Start 11/03/16 at 09:00; Status Future Hold Morphine Sulfate (morphine) 2 mg Q4H PRN IV SEVERE PAIN LEVEL 7-10 Last administered on 11/04/16 05:52; Admin Dose 2 MG; Start 11/03/16 at 18:30 Morphine Sulfate (Ms Contin (Er)) 15 mg BID PO Last administered on 11/04/16 10:09; Admin Dose 15 MG; Start 11/03/16 at 21:00 DORENE GARCIA NP Nov 04, 2016 13:09
[2016-11-04 20:00] VITALS: BP 92/53; RESP 18
--- NOTE | 2016-11-04 20:51 | PN ---
Date/Time of Note Date/Time of Note DATE: 11/04/16 TIME: 20:50 Assessment/Plan VTE Prophylaxis VTE Prophylaxis Intervention: SCD's Lines/Catheters IV C[facility]ter Type (from [facility] Saline Lock Urinary Cath still in place: No Assessment/Plan Assessment/Plan 1. Clostridium difficile colitis. 2. UTI with dirty Urine analysis 3. Acute on chronic kidney disease with a history of hemodialysis. 4. History of urinary tract infection. 5. Diabetes. 6. History of spinal osteomyelitis, completed 6 weeks of antibiotics. 7. 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 Plan: IV abx cefepime, PO vancomycin for Cl difficle,, ID following, stool studies sent Nephrolgoy has been following for ALEXEI on CKD Cr stable, lasix changed to PO no IVF fluids ambulate pt SCD for DVT prophylaxis Exam/Review of Systems Vital Signs Vitals Vital Signs Date Time Temp Pulse Resp B/P Pulse Ox O2 Delivery O2 Flow Rate FiO2 11/04/16 08:06 97.6 20 111/66 98 11/03/16 20:45 81 11/01/16 15:00 Room Air Intake and Output 11/03/16 11/03/16 11/04/16 15:00 23:00 07:00 Intake Total 1130 ml 240 ml Balance 1130 ml 240 ml Exam GENERAL: This is a wasted, cachectic, middle-aged man who is awake, in no distress. HEENT: Head atraumatic, normocephalic. Sclerae anicteric. Buccal mucosa pink. NECK: Supple. CHEST: Rise symmetrical. Breath sounds clear, diminished to bases. HEART: S1, S2. ABDOMEN: Soft. Bowel tones present. EXTREMITIES: Without cyanosis. Results Result Diagram: 11/03/16 0440 11/04/16 0456 Results 24 hrs Laboratory Tests Test 11/04/16 01:47 11/04/16 04:56 11/04/16 08:25 11/04/16 12:25 Bedside Glucose 225 H 236 H 206 Sodium Level 138 Potassium Level 5.1 Chloride Level 111 H Carbon Dioxide Level 17 L Anion Gap 15 Blood Urea Nitrogen 65 H Creatinine 3.21 H Glucose Level 207 # Calcium Level 7.2 L Magnesium Level 2.3 Test 11/04/16 17:36 Bedside Glucose 169 Medications Medications Current Medications Ondansetron HCl (Zofran Inj) 4 mg Q6H PRN IV NAUSEA AND/OR VOMITING; Start 03/10 at 17:30 Acetaminophen (Tylenol Tab) 650 mg Q6H PRN PO PAIN LEVEL 1-3 OR FEVER; Start at 17:30 Acetaminophen/ Hydrocodone Bitart ([place] (5/325)) 1 tab Q6H PRN PO MODERATE PAIN LEVEL 4-6; Start 11/01/16 at 17:30 Docusate Sodium (Colace) 100 mg Q12H PRN PO CONSTIPATION; Start 11/01/16 at 17: 30 Zolpidem Tartrate (Ambien) 5 mg QHS PRN PO SLEEP; Start 11/01/16 at 17:30 Ferrous Sulfate (Ferrous Sulfate (Ec)) 325 mg BID PO Last administered on 10:09; Admin Dose 325 MG; Start 11/01/16 at 21:00 Finasteride (Proscar) 5 mg DAILY PO Last administered on 11/04/16 10:07; Admin Dose 5 MG; Start 11/02/16 at 09:00 Hydralazine HCl (Apresoline) 50 mg TID PO Last administered on 11/04/16 13:45 ; Admin Dose 50 MG; Start 11/01/16 at 21:00 Levothyroxine Sodium (Synthroid) 75 mcg DAILY@06 PO Last administered on 05:52; Admin Dose 75 MCG; Start 11/02/16 at 06:00 Linagliptin (Tradjenta) 5 mg DAILY PO Last administered on 11/04/16 10:07; Admin Dose 5 MG; Start 11/02/16 at 09:00 Nifedipine (Procardia Xl) 60 mg BID PO Last administered on 11/04/16 10:08; Admin Dose 60 MG; Start 11/01/16 at 21:00 Pantoprazole (Protonix Tab) 40 mg DAILY@06 PO Last administered on 11/04/16 05 :52; Admin Dose 40 MG; Start 11/02/16 at 06:00 Senna (Senokot) 1 tab BID PO Last administered on 11/04/16 10:08; Admin Dose 1 TAB; Start 11/01/16 at 21:00 Simethicone (Mylicon) 80 mg Q6H PRN PO DISTENSION/GAS/BLOATING; Start 11/01/16 at 18:00 Tamsulosin HCl (Flomax) 0.4 mg DAILY PO Last administered on 11/04/16 10:07; Admin Dose 0.4 MG; Start 11/02/16 at 09:00 Lactobacillus Acidophilus (Florajen3 Capsule) 1 each BID PO Last administered on 11/04/16 10:06; Admin Dose 1 EACH; Start 11/01/16 at 21:00 Diagnostic Test (Pha) (Accu-Chek) 1 ea 02 XX ; Start 11/02/16 at 02:00 Miscellaneous Information 1 ea NOTE XX ; Start 11/01/16 at 18:00 Glucose (Glutose) 15 gm Q15M PRN PO DECREASED GLUCOSE; Start 11/01/16 at 18:00 Glucose (Glutose) 22.5 gm Q15M PRN PO DECREASED GLUCOSE; Start 11/01/16 at 18: 00 Dextrose (D50w Syringe) 25 ml Q15M PRN IV DECREASED GLUCOSE; Start 11/01/16 at 18:00 Dextrose (D50w Syringe) 50 ml Q15M PRN IV DECREASED GLUCOSE; Start 11/01/16 at 18:00 Glucagon (Glucagen) 1 mg Q15M PRN IM DECREASED GLUCOSE; Start 11/01/16 at 18:00 Glucose (Glutose) 15 gm Q15M PRN BUCCAL DECREASED GLUCOSE; Start 11/01/16 at 18 :00 Alprazolam (Xanax) 0.25 mg Q8H PRN PO ANXIETY Last administered on 11/03/16 20 :17; Admin Dose 0.25 MG; Start 11/02/16 at 10:30 Amlodipine Besylate (Norvasc) 5 mg BID PO Last administered on 11/04/16 10:07 ; Admin Dose 5 MG; Start 11/02/16 at 14:30 Hydralazine HCl (Apresoline) 10 mg Q4H PRN IV sbp>160 Last administered on 11/02 14:58; Admin Dose 10 MG; Start 11/02/16 at 14:30 IV Flush (NS 3 ml) 3 ml PRN PRN IV FLUSH LINE; Start 11/02/16 at 17:00 Vancomycin HCl (Vancomycin Oral Syringe) 125 mg Q6 PO Last administered on 11/04 18:08; Admin Dose 125 MG; Start 11/03/16 at 00:00 Furosemide (Lasix) 40 mg DAILY PO Last administered on 11/04/16 10:07; Admin Dose 40 MG; Start 11/03/16 at 09:00; Status Future Hold Morphine Sulfate (morphine) 2 mg Q4H PRN IV SEVERE PAIN LEVEL 7-10 Last administered on 11/04/16 13:45; Admin Dose 2 MG; Start 11/03/16 at 18:30 Morphine Sulfate (Ms Contin (Er)) 15 mg BID PO Last administered on 11/04/16 10:09; Admin Dose 15 MG; Start 11/03/16 at 21:00 BHUMI CONRAD MD Nov 04, 2016 20:51
[2016-11-05] MEDS: ACCU-CHEK XX SCH (02:00)
[2016-11-05] MEDS: LEVOTHYROXINE 75 MCG TAB PO SCH (06:16)
[2016-11-05] MEDS: PANTOPRAZOLE (EC) 40 MG TAB PO SCH (06:16)
[2016-11-05] MEDS: VANCOMYCIN HCL 250 MG/5ML POSYG PO SCH ×4 (06:16→23:51)
[2016-11-05] MEDS: morphine 2 MG INJ IV PRN (06:17)
[2016-11-05 07:15] VITALS: BP 118/70; RESP 18
[2016-11-05 07:33] LABS: CREATININE 3.16 mg/dl (0.61-1.24); MAGNESIUM 2.2 mg/dl (1.7-2.5); PHOSPHORUS 6.2 mg/dl (2.5-4.9)
[2016-11-05 07:39] LABS: POTASSIUM 5.5 mmol/L (3.5-5.1)
[2016-11-05] MEDS: ALPRAZOLAM 0.25 MG TAB PO PRN ×2 (07:52→17:18)
[2016-11-05] MEDS: INSULIN ASPART [NOVOLOG] 3 ML PEN SC SCH ×4 (08:04→21:07)
[2016-11-05] MEDS: TAMSULOSIN (SR) 0.4 MG CAP PO SCH (08:35)
[2016-11-05] MEDS: morphine (ER) 15 MG TAB PO SCH ×2 (08:35→21:01)
[2016-11-05] MEDS: FINASTERIDE 5 MG TAB PO SCH (08:35)
[2016-11-05] MEDS: LINAGLIPTIN 5 MG TABLET PO SCH (08:35)
[2016-11-05] MEDS: NIFEdipine (XL) 60 MG TAB PO SCH ×2 (08:35→21:00)
[2016-11-05] MEDS: FERROUS SULFATE (EC) 325 MG TAB PO SCH ×2 (08:35→20:59)
[2016-11-05] MEDS: SENNA TAB PO SCH ×2 (08:35→21:00)
[2016-11-05] MEDS: SEVELAMER 800 MG TAB PO SCH ×3 (08:35→17:17)
[2016-11-05] MEDS: AMLODIPINE 5 MG TAB PO SCH ×2 (08:36→21:00)
[2016-11-05] MEDS: L ACIDOPHIL/B LACTIS/B LONGUM CAPSULE PO SCH ×3 (08:36→20:59)
[2016-11-05] MEDS ORDERED: NA POLYST SULFON 15 GM/60 ML BTL PO ONE (13:00)
--- NOTE | 2016-11-05 14:44 | CONS ---
Date/Time of Note Date/Time of Note DATE: 11/05/16 TIME: 14:43 Assessment/Plan Assessment/Plan Chief Complaint/Hosp Course SUBJECTIVE: No acute changes. The patient is awake, looks comfortable, no fevers Abx: PO Vanco PHYSICAL EXAMINATION: GENERAL: This is a wasted, cachectic, middle-aged man who is awake, in no distress. HEENT: Head atraumatic, normocephalic. Sclerae anicteric. Buccal mucosa pink. NECK: Supple. CHEST: Rise symmetrical. Breath sounds clear, diminished to bases. HEART: S1, S2. ABDOMEN: Soft. Bowel tones present. EXTREMITIES: Without cyanosis. ASSESSMENT: 1. Clostridium difficile colitis. 2. Positive urinalysis. 3. Acute on chronic kidney disease with a history of hemodialysis. 4. History of urinary tract infection. 5. Diabetes. 6. History of spinal osteomyelitis, completed 6 weeks of antibiotics. 7. 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 PLAN: The patient remains stable. Continue on PO Vanco DW staff Problems: Consultation Date/Type/Reason Admit Date/Time Nov 01, 2016 at 14:34 Type of Consultation: ID Exam/Review of Systems Vital Signs Vitals Vital Signs Date Time Temp Pulse Resp B/P Pulse Ox O2 Delivery O2 Flow Rate FiO2 11/05/16 07:15 97.6 73 18 118/70 96 11/01/16 15:00 Room Air Intake and Output 11/04/16 11/04/16 11/05/16 15:00 23:00 07:00 Intake Total 960 ml 620 ml Output Total 900 ml 400 ml Balance 60 ml 220 ml Results Result Diagram: 11/03/16 0440 11/05/16 0457 Results 24 hrs Laboratory Tests Test 11/04/16 17:36 11/04/16 20:47 11/05/16 02:17 11/05/16 04:57 Bedside Glucose 169 229 H 212 Sodium Level 136 Potassium Level 5.5 H Chloride Level 111 H Carbon Dioxide Level 17 L Anion Gap 14 Blood Urea Nitrogen 62 H Creatinine 3.16 H Glucose Level 160 Calcium Level 7.0 L Phosphorus Level 6.2 H Magnesium Level 2.2 Test 11/05/16 07:54 11/05/16 12:13 Bedside Glucose 170 125 Medications Medications Current Medications Ondansetron HCl (Zofran Inj) 4 mg Q6H PRN IV NAUSEA AND/OR VOMITING; Start 03/10 at 17:30 Acetaminophen (Tylenol Tab) 650 mg Q6H PRN PO PAIN LEVEL 1-3 OR FEVER; Start at 17:30 Acetaminophen/ Hydrocodone Bitart ([place] (5/325)) 1 tab Q6H PRN PO MODERATE PAIN LEVEL 4-6; Start 11/01/16 at 17:30 Docusate Sodium (Colace) 100 mg Q12H PRN PO CONSTIPATION; Start 11/01/16 at 17: 30 Zolpidem Tartrate (Ambien) 5 mg QHS PRN PO SLEEP; Start 11/01/16 at 17:30 Ferrous Sulfate (Ferrous Sulfate (Ec)) 325 mg BID PO Last administered on 08:35; Admin Dose 325 MG; Start 11/01/16 at 21:00 Finasteride (Proscar) 5 mg DAILY PO Last administered on 11/05/16 08:35; Admin Dose 5 MG; Start 11/02/16 at 09:00 Hydralazine HCl (Apresoline) 50 mg TID PO Last administered on 11/05/16 12:21 ; Admin Dose 50 MG; Start 11/01/16 at 21:00 Levothyroxine Sodium (Synthroid) 75 mcg DAILY@06 PO Last administered on 06:16; Admin Dose 75 MCG; Start 11/02/16 at 06:00 Linagliptin (Tradjenta) 5 mg DAILY PO Last administered on 11/05/16 08:35; Admin Dose 5 MG; Start 11/02/16 at 09:00 Nifedipine (Procardia Xl) 60 mg BID PO Last administered on 11/05/16 08:35; Admin Dose 60 MG; Start 11/01/16 at 21:00 Pantoprazole (Protonix Tab) 40 mg DAILY@06 PO Last administered on 11/05/16 06 :16; Admin Dose 40 MG; Start 11/02/16 at 06:00 Senna (Senokot) 1 tab BID PO Last administered on 11/05/16 08:35; Admin Dose 1 TAB; Start 11/01/16 at 21:00 Simethicone (Mylicon) 80 mg Q6H PRN PO DISTENSION/GAS/BLOATING; Start 11/01/16 at 18:00 Tamsulosin HCl (Flomax) 0.4 mg DAILY PO Last administered on 11/05/16 08:35; Admin Dose 0.4 MG; Start 11/02/16 at 09:00 Lactobacillus Acidophilus (Florajen3 Capsule) 1 each BID PO Last administered on 11/05/16 13:04; Admin Dose 1 EACH; Start 11/01/16 at 21:00 Diagnostic Test (Pha) (Accu-Chek) 1 ea 02 XX ; Start 11/02/16 at 02:00 Miscellaneous Information 1 ea NOTE XX ; Start 11/01/16 at 18:00 Glucose (Glutose) 15 gm Q15M PRN PO DECREASED GLUCOSE; Start 11/01/16 at 18:00 Glucose (Glutose) 22.5 gm Q15M PRN PO DECREASED GLUCOSE; Start 11/01/16 at 18: 00 Dextrose (D50w Syringe) 25 ml Q15M PRN IV DECREASED GLUCOSE; Start 11/01/16 at 18:00 Dextrose (D50w Syringe) 50 ml Q15M PRN IV DECREASED GLUCOSE; Start 11/01/16 at 18:00 Glucagon (Glucagen) 1 mg Q15M PRN IM DECREASED GLUCOSE; Start 11/01/16 at 18:00 Glucose (Glutose) 15 gm Q15M PRN BUCCAL DECREASED GLUCOSE; Start 11/01/16 at 18 :00 Alprazolam (Xanax) 0.25 mg Q8H PRN PO ANXIETY Last administered on 11/05/16 07 :52; Admin Dose 0.25 MG; Start 11/02/16 at 10:30 Amlodipine Besylate (Norvasc) 5 mg BID PO Last administered on 11/05/16 08:36 ; Admin Dose 5 MG; Start 11/02/16 at 14:30 Hydralazine HCl (Apresoline) 10 mg Q4H PRN IV sbp>160 Last administered on 11/02 14:58; Admin Dose 10 MG; Start 11/02/16 at 14:30 IV Flush (NS 3 ml) 3 ml PRN PRN IV FLUSH LINE; Start 11/02/16 at 17:00 Vancomycin HCl (Vancomycin Oral Syringe) 125 mg Q6 PO Last administered on 11/05 12:14; Admin Dose 125 MG; Start 11/03/16 at 00:00 Furosemide (Lasix) 40 mg DAILY PO Last administered on 11/04/16 10:07; Admin Dose 40 MG; Start 11/03/16 at 09:00; Status Future Hold Morphine Sulfate (morphine) 2 mg Q4H PRN IV SEVERE PAIN LEVEL 7-10 Last administered on 11/05/16 06:17; Admin Dose 2 MG; Start 11/03/16 at 18:30 Morphine Sulfate (Ms Contin (Er)) 15 mg BID PO Last administered on 11/05/16 08:35; Admin Dose 15 MG; Start 11/03/16 at 21:00 DORENE GARCIA NP Nov 05, 2016 14:44
--- NOTE | 2016-11-05 17:46 | PN ---
Date/Time of Note Date/Time of Note DATE: 11/05/16 TIME: 17:45 Assessment/Plan VTE Prophylaxis VTE Prophylaxis Intervention: SCD's Lines/Catheters [facility] Saline Lock Urinary Cath still in place: No Assessment/Plan Assessment/Plan 1. Clostridium difficile colitis. 2. UTI with dirty Urine analysis 3. Acute on chronic kidney disease with a history of hemodialysis., Hyperkalemia with K 5.5 today 4. History of urinary tract infection. 5. Diabetes. 6. History of spinal osteomyelitis, completed 6 weeks of antibiotics. 7. 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 Plan: IV abx cefepime, PO vancomycin for Cl difficle,, ID following, stool studies sent kayexalate for hyperkalemia given today Nephrolgoy has been following for ALEXEI on CKD Cr stable, lasix changed to PO ambulate pt SCD for DVT prophylaxis D/c to SNF tomorrow( [facility]) Subjective 24 Hr Interval Summary Free Text/Dictation still c/o painl on IV pain meds, also no MS contin Exam/Review of Systems Vital Signs Vitals Vital Signs Date Time Temp Pulse Resp B/P Pulse Ox O2 Delivery O2 Flow Rate FiO2 11/05/16 07:15 97.6 73 18 118/70 96 11/01/16 15:00 Room Air Intake and Output 11/04/16 11/04/16 11/05/16 15:00 23:00 07:00 Intake Total 960 ml 620 ml Output Total 900 ml 400 ml Balance 60 ml 220 ml Exam GENERAL: This is a wasted, cachectic, middle-aged man who is awake, in no distress. HEENT: Head atraumatic, normocephalic. Sclerae anicteric. Buccal mucosa pink. NECK: Supple. CHEST: Rise symmetrical. Breath sounds clear, diminished to bases. HEART: S1, S2. ABDOMEN: Soft. Bowel tones present. EXTREMITIES: Without cyanosis. Results Result Diagram: 11/03/16 0440 11/05/16 0457 Results 24 hrs Laboratory Tests Test 11/04/16 20:47 11/05/16 02:17 11/05/16 04:57 11/05/16 07:54 Bedside Glucose 229 H 212 170 Sodium Level 136 Potassium Level 5.5 H Chloride Level 111 H Carbon Dioxide Level 17 L Anion Gap 14 Blood Urea Nitrogen 62 H Creatinine 3.16 H Glucose Level 160 Calcium Level 7.0 L Phosphorus Level 6.2 H Magnesium Level 2.2 Test 11/05/16 12:13 11/05/16 17:22 Bedside Glucose 125 129 Medications Medications Current Medications Ondansetron HCl (Zofran Inj) 4 mg Q6H PRN IV NAUSEA AND/OR VOMITING; Start 03/10 at 17:30 Acetaminophen (Tylenol Tab) 650 mg Q6H PRN PO PAIN LEVEL 1-3 OR FEVER; Start at 17:30 Acetaminophen/ Hydrocodone Bitart ([place] (5/325)) 1 tab Q6H PRN PO MODERATE PAIN LEVEL 4-6; Start 11/01/16 at 17:30 Docusate Sodium (Colace) 100 mg Q12H PRN PO CONSTIPATION; Start 11/01/16 at 17: 30 Zolpidem Tartrate (Ambien) 5 mg QHS PRN PO SLEEP; Start 11/01/16 at 17:30 Ferrous Sulfate (Ferrous Sulfate (Ec)) 325 mg BID PO Last administered on 08:35; Admin Dose 325 MG; Start 11/01/16 at 21:00 Finasteride (Proscar) 5 mg DAILY PO Last administered on 11/05/16 08:35; Admin Dose 5 MG; Start 11/02/16 at 09:00 Hydralazine HCl (Apresoline) 50 mg TID PO Last administered on 11/05/16 12:21 ; Admin Dose 50 MG; Start 11/01/16 at 21:00 Levothyroxine Sodium (Synthroid) 75 mcg DAILY@06 PO Last administered on 06:16; Admin Dose 75 MCG; Start 11/02/16 at 06:00 Linagliptin (Tradjenta) 5 mg DAILY PO Last administered on 11/05/16 08:35; Admin Dose 5 MG; Start 11/02/16 at 09:00 Nifedipine (Procardia Xl) 60 mg BID PO Last administered on 11/05/16 08:35; Admin Dose 60 MG; Start 11/01/16 at 21:00 Pantoprazole (Protonix Tab) 40 mg DAILY@06 PO Last administered on 11/05/16 06 :16; Admin Dose 40 MG; Start 11/02/16 at 06:00 Senna (Senokot) 1 tab BID PO Last administered on 11/05/16 08:35; Admin Dose 1 TAB; Start 11/01/16 at 21:00 Simethicone (Mylicon) 80 mg Q6H PRN PO DISTENSION/GAS/BLOATING; Start 11/01/16 at 18:00 Tamsulosin HCl (Flomax) 0.4 mg DAILY PO Last administered on 11/05/16 08:35; Admin Dose 0.4 MG; Start 11/02/16 at 09:00 Lactobacillus Acidophilus (Florajen3 Capsule) 1 each BID PO Last administered on 11/05/16 13:04; Admin Dose 1 EACH; Start 11/01/16 at 21:00 Diagnostic Test (Pha) (Accu-Chek) 1 ea 02 XX ; Start 11/02/16 at 02:00 Miscellaneous Information 1 ea NOTE XX ; Start 11/01/16 at 18:00 Glucose (Glutose) 15 gm Q15M PRN PO DECREASED GLUCOSE; Start 11/01/16 at 18:00 Glucose (Glutose) 22.5 gm Q15M PRN PO DECREASED GLUCOSE; Start 11/01/16 at 18: 00 Dextrose (D50w Syringe) 25 ml Q15M PRN IV DECREASED GLUCOSE; Start 11/01/16 at 18:00 Dextrose (D50w Syringe) 50 ml Q15M PRN IV DECREASED GLUCOSE; Start 11/01/16 at 18:00 Glucagon (Glucagen) 1 mg Q15M PRN IM DECREASED GLUCOSE; Start 11/01/16 at 18:00 Glucose (Glutose) 15 gm Q15M PRN BUCCAL DECREASED GLUCOSE; Start 11/01/16 at 18 :00 Alprazolam (Xanax) 0.25 mg Q8H PRN PO ANXIETY Last administered on 11/05/16 17 :18; Admin Dose 0.25 MG; Start 11/02/16 at 10:30 Amlodipine Besylate (Norvasc) 5 mg BID PO Last administered on 11/05/16 08:36 ; Admin Dose 5 MG; Start 11/02/16 at 14:30 Hydralazine HCl (Apresoline) 10 mg Q4H PRN IV sbp>160 Last administered on 11/02 14:58; Admin Dose 10 MG; Start 11/02/16 at 14:30 IV Flush (NS 3 ml) 3 ml PRN PRN IV FLUSH LINE; Start 11/02/16 at 17:00 Vancomycin HCl (Vancomycin Oral Syringe) 125 mg Q6 PO Last administered on 11/05 17:17; Admin Dose 125 MG; Start 11/03/16 at 00:00 Furosemide (Lasix) 40 mg DAILY PO Last administered on 11/04/16 10:07; Admin Dose 40 MG; Start 11/03/16 at 09:00; Status Future Hold Morphine Sulfate (morphine) 2 mg Q4H PRN IV SEVERE PAIN LEVEL 7-10 Last administered on 11/05/16 06:17; Admin Dose 2 MG; Start 11/03/16 at 18:30 Morphine Sulfate (Ms Contin (Er)) 15 mg BID PO Last administered on 11/05/16 08:35; Admin Dose 15 MG; Start 11/03/16 at 21:00 BHUMI CONRAD MD Nov 05, 2016 17:46
--- NOTE | 2016-11-05 18:54 | PN ---
DATE: 11/05/2016 SUBJECTIVE: The patient is stable, no acute events overnight. No fevers, chills, nausea, vomiting. OBJECTIVE: VITAL SIGNS: Blood pressure is 118/70, respiration 18, pulse 93, temperature 97.6. HEENT: Head is normocephalic. Pupils are reactive to light. NECK: Supple. HEART: Regular rate. LUNGS: Show diminished breath sounds at base. ABDOMEN: Soft, nontender to palpation. No rebound or guarding. EXTREMITIES: Negative for clubbing, cyanosis, or edema. DERMATOLOGIC: No rashes. MUSCULOSKELETAL: No joint effusions. NEUROLOGIC: No change in exam. MEDICATIONS: The patient's medications have been reviewed. LABORATORY DATA: Shows sodium 136, potassium 5.5, chloride 111, BUN 62, creatinine 3.16, phosphorus 6.2, calcium 7.0. ASSESSMENT AND PLAN: 1. Nonoliguric acute kidney injury on top of chronic kidney disease stage IV with a baseline creati nine around 2.5 to 3 mg/dL. Etiology of current acute kidney injury is secondary to hemodynamics, p ossible progression of underlying chronic kidney disease. The patient's renal function has been flu ctuating as creatinine has moved between 3 to 3.2 mg/dL. The patient has also been mildly hyperkale ananth. At this point, we will continue current medical management. If unable to control the patient' s hyperkalemia due medical management and/or the patient's renal function should further decline, wo uld consider placing the patient back on dialysis. 2. Chronic kidney disease stage IV with a baseline creatinine of around 2.5 to 3 mg/dL. The patien t is currently in acute kidney injury, stage IV. Continue current medical management. 3. Anemia of chronic disease. Monitor hemoglobin and hematocrit levels. 4. Hyperkalemia. Etiology secondary to underlying chronic kidney disease, acute kidney injury. Wi ll give patient 1 dose of Kayexalate and monitor potassium levels continue low-potassium diet. 5. Mineral bone disorder. Continue to monitor calcium and phosphorus levels. 6. Volume overload secondary to acute kidney injury and diastolic heart failure. The patient appea rs euvolemic. Will discontinue Lasix. 7. Urinary tract infection. Continue current antibiotic regimen. 8. Hypertension. Blood pressure controlled. Continue current blood pressure regimen. Dictated By: NAE SINHA/ERICKA Conf#: [id number] DID#: [id number]
[2016-11-05 20:00] VITALS: BP 119/69; RESP 16
[2016-11-06] MEDS: ACCU-CHEK XX SCH (02:00)
[2016-11-06] MEDS: PANTOPRAZOLE (EC) 40 MG TAB PO SCH (05:34)
[2016-11-06] MEDS: LEVOTHYROXINE 75 MCG TAB PO SCH (05:34)
[2016-11-06] MEDS: VANCOMYCIN HCL 250 MG/5ML POSYG PO SCH ×3 (05:34→17:31)
[2016-11-06] MEDS: ALPRAZOLAM 0.25 MG TAB PO PRN (05:51)
[2016-11-06 06:30] LABS: CALCIUM 7.6 mg/dl (8.4-10.2); CREATININE 3.07 mg/dl (0.61-1.24); MAGNESIUM 2.3 mg/dl (1.7-2.5); PHOSPHORUS 5.4 mg/dl (2.5-4.9); POTASSIUM 5.7 mmol/L (3.5-5.1)
[2016-11-06 07:06] VITALS: BP 108/62; PULSE 75; RESP 18
[2016-11-06] MEDS: INSULIN ASPART [NOVOLOG] 3 ML PEN SC SCH ×3 (08:15→17:36)
[2016-11-06] MEDS: SEVELAMER 800 MG TAB PO SCH ×3 (08:22→17:31)
[2016-11-06] MEDS: FERROUS SULFATE (EC) 325 MG TAB PO SCH (08:23)
[2016-11-06] MEDS: LINAGLIPTIN 5 MG TABLET PO SCH (08:23)
[2016-11-06] MEDS: morphine (ER) 15 MG TAB PO SCH (08:24)
[2016-11-06] MEDS: FINASTERIDE 5 MG TAB PO SCH (08:24)
[2016-11-06] MEDS: SENNA TAB PO SCH (08:24)
[2016-11-06] MEDS: TAMSULOSIN (SR) 0.4 MG CAP PO SCH (08:25)
[2016-11-06] MEDS: AMLODIPINE 5 MG TAB PO SCH (08:40)
[2016-11-06] MEDS: NIFEdipine (XL) 60 MG TAB PO SCH (08:40)
[2016-11-06] MEDS ORDERED: NA POLYST SULFON 15 GM/60 ML BTL PO ONE (09:30)
[2016-11-06] MEDS: L ACIDOPHIL/B LACTIS/B LONGUM CAPSULE PO SCH (10:01)
--- NOTE | 2016-11-06 10:18 | PN ---
DATE: 11/06/2016 SUBJECTIVE: The patient is stable, no acute events overnight. I spoke with the patient informing h im that he remains hyperkalemic and that he is near dialysis. The patient is aware. I told him nolberto t if medical management cannot control hyperkalemia, that the patient would likely need to be placed on permanent dialysis. No other events noted. OBJECTIVE: VITAL SIGNS: Blood pressure 108/62, respirations 18, pulse 95, temperature 98.4. HEENT: Head is normocephalic. NECK: Supple. HEART: Regular rate. LUNGS: Show diminished breath sounds at the bases, otherwise clear. ABDOMEN: Soft, nontender to palpation. No rebound or guarding. EXTREMITIES: Negative for clubbing, cyanosis. Trace edema. DERMATOLOGIC: No rashes. MUSCULOSKELETAL: No joint effusions. NEUROLOGIC: No change in exam. MEDICATIONS: The patient's medications have been reviewed. LABORATORY DATA: Sodium 136, potassium 5.7, BUN 64, creatinine 3.07, calcium 7.6, phosphorus 5.4. ASSESSMENT AND PLAN: 1. Nonoliguric acute kidney injury on top of chronic kidney disease stage IV with a baseline creati nine between 2.5 to 3 mg/dL. Etiology of acute kidney injury is secondary to hemodialysis, possible progression of underlying chronic kidney disease. The patient's renal function continues to fluctu ate. However, the patient remains mildly hyperkalemic. I informed the patient, as stated above, th at if hyperkalemia cannot be controlled with medical management, that patient will likely need to be resumed on dialysis and would likely need to be permanently placed on dialysis. The patient is abe re. We will continue current medical management and monitor renal function closely. 2. Hyperkalemia secondary to chronic kidney disease, acute kidney injury. We will give another dos e of Kayexalate. Continue renal diet and monitor. 3. Chronic kidney disease stage IV with a baseline creatinine of 2.5 to 3 mg/dL. We will continue treating acute kidney injury as stated above. Continue disease factor modification. 4. Anemia. Continue to monitor hemoglobin and hematocrit levels. 5. Mineral bone disorder. Continue to monitor calcium and phosphorus levels. 6. Volume overload. The patient is near euvolemic status. Continue to monitor. 7. Urinary tract infection. Continue current antibiotic regimen. 8. Hypertension. Continue current blood pressure regimen. Dictated By: NAE SINHA/ERICKA Conf#: [id number] DID#: [id number]
--- NOTE | 2016-11-06 12:48 | PN ---
Date/Time of Note Date/Time of Note DATE: 11/06/16 TIME: 12:47 Assessment/Plan VTE Prophylaxis VTE Prophylaxis Intervention: SCD's Lines/Catheters IV Catheter Type (from [facility], [place]): Saline Lock Urinary Cath still in place: No Assessment/Plan Assessment/Plan 1. Clostridium difficile colitis. 2. UTI with dirty Urine analysis 3. Acute on chronic kidney disease with a history of hemodialysis., Hyperkalemia with K 5.5 today 4. History of urinary tract infection. 5. Diabetes. 6. History of spinal osteomyelitis, completed 6 weeks of antibiotics. 7. 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 Plan: IV abx cefepime, PO vancomycin for Cl difficle,, ID following, stool studies sent kayexalate for hyperkalemia given today Nephrolgoy has been following for ALEXEI on CKD Cr stable, lasix changed to PO ambulate pt SCD for DVT prophylaxis D/c to SNF today( [facility]) Subjective 24 Hr Interval Summary Free Text/Dictation doing ok, Pain controlled Exam/Review of Systems Vital Signs Vitals Vital Signs Date Time Temp Pulse Resp B/P Pulse Ox O2 Delivery O2 Flow Rate FiO2 11/06/16 07:06 98.4 75 18 108/62 99 Nasal Cannula 2.0 Intake and Output 11/05/16 11/05/16 11/06/16 15:00 23:00 07:00 Intake Total 940 ml 640 ml Output Total 820 ml 450 ml Balance 120 ml 190 ml Exam GENERAL: This is a wasted, cachectic, middle-aged man who is awake, in no distress. HEENT: Head atraumatic, normocephalic. Sclerae anicteric. Buccal mucosa pink. NECK: Supple. CHEST: Rise symmetrical. Breath sounds clear, diminished to bases. HEART: S1, S2. ABDOMEN: Soft. Bowel tones present. EXTREMITIES: Without cyanosis. Results Result Diagram: 11/03/16 0440 11/06/16 0540 Results 24 hrs Laboratory Tests Test 11/05/16 17:22 11/05/16 20:54 11/06/16 02:21 11/06/16 05:40 Bedside Glucose 129 185 101 Sodium Level 136 Potassium Level 5.7 H Chloride Level 113 H Carbon Dioxide Level 17 L Anion Gap 12 Blood Urea Nitrogen 64 H Creatinine 3.07 H Glucose Level 83 # Calcium Level 7.6 L Phosphorus Level 5.4 H Magnesium Level 2.3 Test 11/06/16 08:20 11/06/16 12:17 Bedside Glucose 94 116 Medications Medications Current Medications Ondansetron HCl (Zofran Inj) 4 mg Q6H PRN IV NAUSEA AND/OR VOMITING; Start 03/10 at 17:30 Acetaminophen (Tylenol Tab) 650 mg Q6H PRN PO PAIN LEVEL 1-3 OR FEVER; Start at 17:30 Acetaminophen/ Hydrocodone Bitart ([place] (5/325)) 1 tab Q6H PRN PO MODERATE PAIN LEVEL 4-6; Start 11/01/16 at 17:30 Docusate Sodium (Colace) 100 mg Q12H PRN PO CONSTIPATION; Start 11/01/16 at 17: 30 Zolpidem Tartrate (Ambien) 5 mg QHS PRN PO SLEEP; Start 11/01/16 at 17:30 Ferrous Sulfate (Ferrous Sulfate (Ec)) 325 mg BID PO Last administered on 08:23; Admin Dose 325 MG; Start 11/01/16 at 21:00 Finasteride (Proscar) 5 mg DAILY PO Last administered on 11/06/16 08:24; Admin Dose 5 MG; Start 11/02/16 at 09:00 Hydralazine HCl (Apresoline) 50 mg TID PO Last administered on 11/05/16 20:59 ; Admin Dose 50 MG; Start 11/01/16 at 21:00 Levothyroxine Sodium (Synthroid) 75 mcg DAILY@06 PO Last administered on 05:34; Admin Dose 75 MCG; Start 11/02/16 at 06:00 Linagliptin (Tradjenta) 5 mg DAILY PO Last administered on 11/06/16 08:23; Admin Dose 5 MG; Start 11/02/16 at 09:00 Nifedipine (Procardia Xl) 60 mg BID PO Last administered on 11/05/16 21:00; Admin Dose 60 MG; Start 11/01/16 at 21:00 Pantoprazole (Protonix Tab) 40 mg DAILY@06 PO Last administered on 11/06/16 05 :34; Admin Dose 40 MG; Start 11/02/16 at 06:00 Senna (Senokot) 1 tab BID PO Last administered on 11/06/16 08:24; Admin Dose 1 TAB; Start 11/01/16 at 21:00 Simethicone (Mylicon) 80 mg Q6H PRN PO DISTENSION/GAS/BLOATING; Start 11/01/16 at 18:00 Tamsulosin HCl (Flomax) 0.4 mg DAILY PO Last administered on 11/06/16 08:25; Admin Dose 0.4 MG; Start 11/02/16 at 09:00 Lactobacillus Acidophilus (Florajen3 Capsule) 1 each BID PO Last administered on 11/06/16 10:01; Admin Dose 1 EACH; Start 11/01/16 at 21:00 Diagnostic Test (Pha) (Accu-Chek) 1 ea 02 XX ; Start 11/02/16 at 02:00 Miscellaneous Information 1 ea NOTE XX ; Start 11/01/16 at 18:00 Glucose (Glutose) 15 gm Q15M PRN PO DECREASED GLUCOSE; Start 11/01/16 at 18:00 Glucose (Glutose) 22.5 gm Q15M PRN PO DECREASED GLUCOSE; Start 11/01/16 at 18: 00 Dextrose (D50w Syringe) 25 ml Q15M PRN IV DECREASED GLUCOSE; Start 11/01/16 at 18:00 Dextrose (D50w Syringe) 50 ml Q15M PRN IV DECREASED GLUCOSE; Start 11/01/16 at 18:00 Glucagon (Glucagen) 1 mg Q15M PRN IM DECREASED GLUCOSE; Start 11/01/16 at 18:00 Glucose (Glutose) 15 gm Q15M PRN BUCCAL DECREASED GLUCOSE; Start 11/01/16 at 18 :00 Alprazolam (Xanax) 0.25 mg Q8H PRN PO ANXIETY Last administered on 11/06/16 05 :51; Admin Dose 0.25 MG; Start 11/02/16 at 10:30 Amlodipine Besylate (Norvasc) 5 mg BID PO Last administered on 11/05/16 21:00 ; Admin Dose 5 MG; Start 11/02/16 at 14:30 Hydralazine HCl (Apresoline) 10 mg Q4H PRN IV sbp>160 Last administered on 11/02 14:58; Admin Dose 10 MG; Start 6/11/17 at 14:30 IV Flush (NS 3 ml) 3 ml PRN PRN IV FLUSH LINE; Start 11/02/16 at 17:00 Vancomycin HCl (Vancomycin Oral Syringe) 125 mg Q6 PO Last administered on 11/06 12:20; Admin Dose 125 MG; Start 11/03/16 at 00:00 Furosemide (Lasix) 40 mg DAILY PO Last administered on 11/04/16 10:07; Admin Dose 40 MG; Start 11/03/16 at 09:00; Status Future Hold Morphine Sulfate (morphine) 2 mg Q4H PRN IV SEVERE PAIN LEVEL 7-10 Last administered on 11/05/16 06:17; Admin Dose 2 MG; Start 11/03/16 at 18:30 Morphine Sulfate (Ms Contin (Er)) 15 mg BID PO Last administered on 11/05/16 21:01; Admin Dose 15 MG; Start 11/03/16 at 21:00 BHUMI CONRAD MD Nov 06, 2016 12:48
--- NOTE | 2016-11-06 12:49 | PDOCDIS ---
Discharge Instructions CONDITION Patient Condition: Good HOME CARE INSTRUCTIONS: Special Diet: Carb controlled, Renal ACTIVITY: Activity Restrictions: Slowly Increase Activity Rest between Activity Avoid heavy lifting Avoid Heavy Housework FOLLOW UP/APPOINTMENTS Appointments follow up with physician at [facility] facility. Follow up with his own PMD through HMO insurance in 2 weeks after discharge BHUMI CONRAD MD Nov 06, 2016 12:49
[2016-11-06] MEDS: morphine 2 MG INJ IV PRN (13:51)
[2016-11-06 19:26] VITALS: BP 107/57; RESP 18
--- NOTE | 2016-11-06 20:28 | CONS ---
Date/Time of Note Date/Time of Note DATE: 11/06/16 TIME: 20:28 Assessment/Plan Assessment/Plan Chief Complaint/Hosp Course SUBJECTIVE: No acute changes, no fevers Abx: PO Vanco PHYSICAL EXAMINATION: GENERAL: This is a wasted, cachectic, middle-aged man who is awake, in no distress. HEENT: Head atraumatic, normocephalic. Sclerae anicteric. Buccal mucosa pink. NECK: Supple. CHEST: Rise symmetrical. Breath sounds clear, diminished to bases. HEART: S1, S2. ABDOMEN: Soft. Bowel tones present. EXTREMITIES: Without cyanosis. ASSESSMENT: 1. Clostridium difficile colitis. 2. Positive urinalysis. 3. Acute on chronic kidney disease with a history of hemodialysis. 4. History of urinary tract infection. 5. Diabetes. 6. History of spinal osteomyelitis, completed 6 weeks of antibiotics. 7. 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 PLAN: The patient remains stable. Ok dc on PO Vanco DW staff Problems: Consultation Date/Type/Reason Admit Date/Time Nov 01, 2016 at 14:34 Type of Consultation: ID Exam/Review of Systems Vital Signs Vitals Vital Signs Date Time Temp Pulse Resp B/P Pulse Ox O2 Delivery O2 Flow Rate FiO2 11/06/16 19:26 98.0 68 18 107/57 98 11/06/16 07:06 Nasal Cannula 2.0 Intake and Output 11/05/16 11/05/16 11/06/16 15:00 23:00 07:00 Intake Total 940 ml 640 ml Output Total 820 ml 450 ml Balance 120 ml 190 ml Results Result Diagram: 11/03/16 0440 11/06/16 0540 Results 24 hrs Laboratory Tests Test 11/05/16 20:54 11/06/16 02:21 11/06/16 05:40 11/06/16 08:20 Bedside Glucose 185 101 94 Sodium Level 136 Potassium Level 5.7 H Chloride Level 113 H Carbon Dioxide Level 17 L Anion Gap 12 Blood Urea Nitrogen 64 H Creatinine 3.07 H Glucose Level 83 # Calcium Level 7.6 L Phosphorus Level 5.4 H Magnesium Level 2.3 Test 11/06/16 12:17 11/06/16 17:28 Bedside Glucose 116 157 DORENE GARCIA NP Nov 06, 2016 20:28
== END 2016-11-06 19:40 | DRG 372 ==
LOC: MS2 14:34
PROVIDERS: ADMIT Hospitalist; ATTEND Hospitalist
PROC: 4A033R1 Measurement of Arterial Saturation, Peripheral, Percutaneous Approach (ICD-10-PCS; principal; 2016-11-02)
DX: A04.7 Enterocolitis due to Clostridium difficile (principal); N39.0 Urinary tract infection, site not specified; E87.2 Acidosis; N17.9 Acute kidney failure, unspecified; I13.0 Hypertensive heart and chronic kidney disease with heart failure and stage 1 through stage 4 chronic kidney disease, or unspecified chronic kidney disease; N18.4 Chronic kidney disease, stage 4 (severe); I50.30 Unspecified diastolic (congestive) heart failure; E11.22 Type 2 diabetes mellitus with diabetic chronic kidney disease; N40.0 Benign prostatic hyperplasia without lower urinary tract symptoms; D63.8 Anemia in other chronic diseases classified elsewhere; E03.9 Hypothyroidism, unspecified; E11.319 Type 2 diabetes mellitus with unspecified diabetic retinopathy without macular edema; E87.5 Hyperkalemia; B18.2 Chronic viral hepatitis C; Z87.440 Personal history of urinary (tract) infections
CPT/HCPCS: 36600; 80048; 80053; 80061; 81001; 81003; 82043; 82803; 82962; 83036; 83735; 84100; 84155; 84300; 85025; 87081; 87086; J0360; J0692; J1815; J2270; J3480

== ENCOUNTER 2016-11-13 20:44 | Inpatient (IN) | payer OTHER ==
[~2016-11-13] VITALS: Ht 165.1 cm; Wt 54.5 kg
[2016-11-13 20:47] VITALS: Ht 165.1 cm; Wt 54.5 kg
--- NOTE | 2016-11-13 21:23 | ERA ---
ER Documentation Chief Complaint Date/Time DATE: 11/13/16 TIME: 21:22 Chief Complaint High potassium HPI The patient is a 56-year-old male, presenting to the ER because of abnormal today's lab, high potassium 7, high creatinine 2.9. He complains of shortness of breath for the last 3 days, diarrhea and dysuria today. He denies fever, chills, neck pain, chest pain, abdominal pain, vomiting. He denies hematemesis , hematochezia. He does not smoke nor drink nor ambulate Past medical history: Hypothyroidism, chronic kidney disease, anemia, hepatitis C, atrial fibrillation, diabetes mellitus, hypertension, GERD, anxiety, BPH, diabetic neuropathy, right eye blindness, history of spinal osteomyelitis, history of C. difficile colitis ROS All systems reviewed and are negative except as per history of present illness. Medications Home Meds Active Scripts Pantoprazole* (Pantoprazole*) 40 Mg Tablet.dr, 40 MG PO DAILY@06 for 30 Days Prov:RANDY SCHNEIDER 10/29/16 Linagliptin (TRADJENTA) 5 Mg Tablet, 5 MG PO DAILY for 30 Days, TAB Prov:RANDY SCHNEIDER 10/29/16 Levothyroxine Sodium* (Synthroid*) 75 Mcg Tablet, 75 MCG PO DAILY@06 for 30 Days , TAB Prov:RANDY SCHNEIDER 10/29/16 Ferrous Sulfate* (Ferrous Sulfate*) 325 Mg Tabec, 325 MG PO BID, #60 TAB 2 Refills Prov:PHANI REYES 07/22/16 Reported Medications Dextrose (Glucose Gel) Unknown Strength Gel..gram., 22.5 GM PO Q15M Y for NEEDED FOR DECREASED GLUCOSE 11/13/16 Dextrose (Glucose) Unknown Strength Liquid, 15 GM PO Q15 MIN Y for NEEDED, TUB 11/13/16 Ondansetron Hcl* (Zofran*) 4 Mg Tablet, 4 MG PO Q6H Y for NAUSEA AND OR VOMITING , TAB 11/13/16 Acetaminophen* (Tylenol*) 500 Mg Tab, 1000 MG PO Q4H Y for FOR MODERATE PAIN 4-10, TAB 11/13/16 Acetaminophen* (Tylenol*) 325 Mg Tablet, 650 MG PO Q4H Y for MILD PAIN LEVEL 1-3 , TAB FOR FEVER 100 AND ABOVE 11/13/16 Hydrocodone/Acetaminophen ([place] 5-325 Tablet) 1 Each Tablet, 1 EACH PO Q6H, TAB 11/13/16 Zolpidem Tartrate* (Ambien*) 5 Mg Tablet, 5 MG PO QHS Y for INSOMNIA, #30 TAB 11/13/16 Alprazolam* (Xanax*) 0.25 Mg Tablet, 0.25 MG PO Q8H Y for ANXIETY, TAB 11/13/16 Cranberry Fruit (CRANBERRY) 450 Mg Tablet, 450 MG PO BID, TAB 11/13/16 Sod Phosphate/Sod Biphosphate* (Fleet* Enema Pediatric) 66.6 Ml Soln, 66.6 ML MA Q2 DAYS Y for CONSTIPATION, ENEMA 11/13/16 Bisacodyl* (Dulcolax*) 5 Mg Tablet.dr, 10 MG PO DAILY Y for CONSTIPATION, TAB 11/13/16 Magnesium Hydroxide* (Milk Of Magnesia*) 400 Mg/5 Ml Oral.susp, 30 ML PO DAILY, ML 11/13/16 Docusate Sodium* (Colace*) 100 Mg Capsule, 200 MG PO DAILY, #30 CAP 11/13/16 Vancomycin Hcl (Vancocin Hcl Oral) 125 Mg Cap, 125 MG PO Q6, CAP FOR 10 DAYS; START DAY 11/06/16 11/13/16 Tamsulosin Hcl* (Tamsulosin Hcl*) 0.4 Mg Cap.er.24h, 0.4 MG PO HS, CAP 11/13/16 Sevelamer Hcl* (Renagel*) 800 Mg Tablet, 1600 MG PO WITH MEALS, TAB 11/13/16 Nifedipine (Procardia Xl) 60 Mg Tab.er.24, 60 MG PO BID, TAB HOLD IF SBP<110 OR HR<60 11/13/16 Morphine Sulfate* (Ms Contin*) 15 Mg Tablet.sa, 15 MG PO Q12, TAB 11/13/16 Lactobacillus Acidoph/Bulgaricus* (Floranex*) 1 Each Tablet, 1 TAB.CHEW PO BID, TAB.CHEW 11/13/16 Hydralazine Hcl* (Apresoline*) 50 Mg Tab, 50 MG PO TID, #90 TAB HOLD IF SBP<110 OR HR<60 11/13/16 Furosemide* (Furosemide*) 40 Mg Tablet, 40 MG PO DAILY, TAB HOLD IF SBP<110 OR HR<60 11/13/16 Simethicone* (Anti-Gas/80*) 80 Mg Tab.chew, 80 MG PO Q6H Y for DISTENSION/GAS/ BLOATING, TAB.CHEW 09/01/16 Insulin Aspart* (Novolog Insulin Pen*) 100 Unit/Ml Soln, 0 SC .SLIDING SCALE AC , EA 0-150=0, 151-200=1 UNIT, 201-250=2 UNIT, 251-300=3 UNIT, 301-350=4 UNIT, 351-400=5 UNIT, .400=6 UNIT NOTIFY MD IF BS IS ABOVE 500 OR BELOW 70 09/01/16 Ergocalciferol (Vitamin D2) (VITAMIN D2) 50,000 Unit Capsule, 29659 UNIT PO ONCE , CAP every thursday07/10/16 Finasteride* (Finasteride*) 5 Mg Tablet, 5 MG PO DAILY, TAB 07/10/16 Discontinued Reported Medications Oxycodone HCl/Acetaminophen (Percocet 5-325 mg Tablet) 1 Each Tablet, 1 EACH PO Q4 Y for PAIN, TAB 09/01/16 Zolpidem Tartrate* (Zolpidem Tartrate*) 10 Mg Tablet, 10 MG PO QHS Y for INSOMNIA, #30 TAB 09/01/16 Tamsulosin Hcl* (Tamsulosin Hcl*) 0.4 Mg Cap.er.24h, 0.4 MG PO DAILY, CAP 07/10/16 Discontinued Scripts Sevelamer Hcl* (Renagel*) 800 Mg Tablet, 800 MG PO WITH MEALS for 30 Days, TAB Prov:RANDY SCHNEIDER 10/29/16 Sennosides* (Senna Lax*) 8.6 Mg Tablet, 1 TAB PO BID for 30 Days, TAB Prov:REGRANDY QUICK 10/29/16 Nifedipine (Afeditab CR) 60 Mg Tablet.sa, 60 MG PO BID for 30 Days Prov:RANDY SCHNEIDER 10/29/16 Metronidazole* (Flagyl*) 500 Mg Tablet, 500 MG PO Q8 for 13 Days, TAB Prov:REGRANDY QUICK 10/29/16 Hydralazine Hcl* (Apresoline*) 50 Mg Tab, 50 MG PO TID for 30 Days, TAB Prov:REGRANDY QUICK 10/29/16 Furosemide* (Furosemide*) 40 Mg Tablet, 40 MG PO BID DIURETICS for 30 Days, TAB Prov:RANDY SCHNEIDER 10/29/16 Lactobacillus Acidoph/Bulgaricus* (Floranex*) 1 Each Tablet, 1 TAB PO TID for 30 Days, TAB 4 Refills Prov:PHANI REYES S. 07/22/16 Allergies Allergies: Coded Allergies: No Known Allergies (Verified Allergy, Unknown, 11/13/16) PMhx/Soc History of Surgery: Yes (spinal) Anesthesia Reaction: No Hx Neurological Disorder: Yes (diabetic neuropaty) Hx Respiratory Disorders: No Hx Cardiac Disorders: Yes (HTN,) Hx Psychiatric Problems: No Hx Alcohol Use: No Hx Substance Use: No Hx Tobacco Use: No Smoking Status: Never smoker Physical Exam Vitals Vital Signs Date Time Temp Pulse Resp B/P Pulse Ox O2 Delivery O2 Flow Rate FiO2 11/13/16 21:34 64 17 117/77 99 Room Air 11/13/16 20:47 97.7 65 18 144/68 97 Physical Exam Const: No acute distress. Head: Atraumatic. Eyes: Right conjunctivae is erythematous, no discharge ENT: Normal External Ears, Nose and Mouth. Neck: Full range of motion. No meningismus. Resp: Clear to auscultation bilaterally. Cardio: Regular rate and rhythm. Abd: Soft, non distended, normal bowel sounds, non tender. Skin: No petechiae or rashes. Back: No midline or flank tenderness. Ext: No cyanosis, or edema. Neur: Awake and alert. No focal deficit Psych: Depressed Result Diagram: 11/13/16212911/13/162129 Results 24 hrs Laboratory Tests Test 11/13/16 21:30 11/13/16 22:34 White Blood Count 4.410^3/ul Red Blood Count 2.9510^6/ul Hemoglobin 8.9g/dl Hematocrit 27.5% Mean Corpuscular Volume 93.2fl Mean Corpuscular Hemoglobin 30.2pg Mean Corpuscular Hemoglobin Concent 32.4g/dl Red Cell Distribution Width 16.4% Platelet Count 98405^3/UL Mean Platelet Volume 9.9fl Neutrophils % 62.5% Lymphocytes % 22.6% Monocytes % 7.2% Eosinophils % 3.6% Basophils % 0.9% Nucleated Red Blood Cells % 0.0/100WBC Neutrophils # 2.810^3/ul Lymphocytes # 1.010^3/ul Monocytes # 0.310^3/ul Eosinophils # 0.210^3/ul Basophils # 0.010^3/ul Nucleated Red Blood Cells # 0.010^3/ul Prothrombin Time 14.9Sec Prothrombin Time Ratio 1.2 INR International Normalized Ratio 1.16 Activated Partial Thromboplast Time 32.0Sec Sodium Level 139mmol/L Potassium Level 7.4mmol/L Chloride Level 119mmol/L Carbon Dioxide Level 13mmol/L Anion Gap 14 Blood Urea Nitrogen 43mg/dl Creatinine 3.09mg/dl Glucose Level 74mg/dl Calcium Level 8.3mg/dl Phosphorus Level 6.4mg/dl Magnesium Level 2.4mg/dl Blood Gas Specimen Source Blood arterial Arterial Blood Date Drawn 11/13/2016 10:30:15 PM Arterial Blood pH (Temp corrected) 7.198 Arterial Blood pCO2 (Temp correct) 31.1mmhg Arterial Blood pO2 (Temp corrected) 119.8mmHG Arterial Blood HCO3 11.8mmol/L Arterial Blood Base Excess -15.0mmol/L Arterial Blood Oxygen Saturation 97.5mmHG Mauri Test ACCEPTAB Arterial Blood Gas Puncture Site Right Radial Arterial Blood Carboxyhemoglobin 0.3% Arterial Blood Methemoglobin 0.3% Oxyhemoglobin Percent 96.9% Total Hemoglobin 10.2g/dl Blood Gas Temperature 37.0C Blood Gas Modality ROOM AIR FiO2 21.0% Blood Gas Critical Value Read Back Shell MATIAS MD Blood Gas Notified Whom [place] Blood Gas Notified Time 11/13/2016 10:47:18 PM Current Medications Medications (Trade) Dose Ordered Sig/Ines Route PRN Reason Start Time Stop Time Status Last Admin Dose Admin Sodium Polystyrene Sulfonate (Kayexalate) 30 gm ONCE STAT PO 11/13/16 22:19 11/13/16 22:24 DC 11/13/16 22:41 Albuterol (Proventil 0.5% (Neb)) 15 mg ONCE STAT INH 11/13/16 22:19 11/13/16 22:24 DC 11/13/16 22:56 Insulin Human Regular (Humulin R) 10 unit ONCE STAT IV 11/13/16 22:19 11/13/16 22:24 DC 11/13/16 22:41 Dextrose 100 ml 100 ml ONCE ONCE IV 11/13/16 22:30 11/13/16 22:31 DC 11/13/16 22:37 Calcium Gluconate/ Sodium Chloride (Ca Gluc/NS) 120 ml @ 60 mls/hr ONCE ONCE IVPB 11/13/16 22:30 11/14/16 00:29 11/13/16 22:42 Procedures/MDM [place] [address] Radiology Main Line: [phone] DIAGNOSTIC IMAGING REPORT Patient: VAHE ALAS : 1960 Age: 56 Sex: M MR #: [id number] DOS: 11/13/162134 Ordering MD: BOOKER MATIAS MD Location: E/R Room/Bed: PROCEDURE: CHEST - 1 VIEW CLINICAL INDICATION: 56-year-old male with chest pain. TECHNIQUE: A single frontal AP supine portable view of the chest was performed. The images were reviewed on a PACS workstation. COMPARISON: Chest x-ray September 29, 2016; chest x-ray September 17, 2016. FINDINGS: The cardiomediastinal silhouette is enlarged. There is pulmonary vascular congestion. There is a shallow inspiration. There is small left pleural effusion. There is no definite focal consolidation. There is no evidence for pneumothorax. The osseous structures are intact. IMPRESSION: 1. Cardiomegaly. 2. Pulmonary vascular congestion. 3. Shallow inspiration. 4. Small left pleural effusion. .Saeed Castro MD, MD Date Time Electronically viewed and signed by .Saeed Castro MD, on 11/13/2016 22:28 .M/ CC: BOOKER MATIAS MD EKG: Read by emergency physician Rate/Rhythm: Normal Sinus Rhythm 63 beats/min QRS, ST, T-waves: No ST elevation, no T inversion, low voltage Impression: Abnormal EKG MEDICAL MAKING DECISION: The patient is a 56-year-old male, presenting with acute hypokalemia, acute metabolic acidosis. He was treated for acute hyperkalemia with 2 ampules of D50 IV, 10 units of regular insulin IV, albuterol 15 mg nebulizer, Kayexalate 30 g p.o., calcium gluconate 2 g IV with good response. Sodium bicarb was not given because he has pulmonary vascular congestion on the chest x-ray Critical Care: Time: 35 minutes excluding all billable procedures. Treatments/Evaluations: Close monitoring and treatment of unstable vital signs, cardiorespiratory, and neurologic status, while maintaining tight balance of fluid, respiratory, and cardiac interventions. Departure Diagnosis: Primary Impression: Hyperkalemia Additional Impressions: Metabolic acidosis Anemia Leukopenia Condition: Critical Comments I discussed the findings with the patient. I discussed the patient with the on- call hospitalist Dr. Gilbert who was made aware of the lab, the treatment, the patient condition. The patient is admitted to ICU at 10:30 PM BOOKER MATIAS MD Nov 13, 2016 21:23
[2016-11-13 21:46] LABS: ADD SCAN DIFF NO
[2016-11-13 21:49] LABS: BASOPHILS % 0.9 % (0.0-2.0); EOSINOPHILS # 0.2 10^3/ul (0.0-0.5); EOSINOPHILS % 3.6 % (0.0-7.0); HEMATOCRIT 27.5 % (42.0-52.0); HEMOGLOBIN 8.9 g/dl (14.0-18.0); LYMPHOCYTES % 22.6 % (15.0-51.0); MEAN CORPUSCULAR HEMOGLOBIN 30.2 pg (29.0-33.0); MEAN CORPUSCULAR HGB CONC 32.4 g/dl (32.0-37.0); MEAN CORPUSCULAR VOLUME 93.2 fl (82.0-101.0); MEAN PLATELET VOLUME 9.9 fl (7.4-10.4); MONOCYTE # 0.3 10^3/ul (0.3-0.9); MONOCYTES % 7.2 % (0.0-11.0); NEUTROPHIL # 2.8 10^3/ul (1.6-7.5); NEUTROPHILS % 62.5 % (39.0-77.0); PLATELET COUNT 146 10^3/UL (140-415); RED BLOOD COUNT 2.95 10^6/ul (4.70-6.10); RED CELL DISTRIBUTION WIDTH 16.4 % (11.5-14.5); WHITE BLOOD COUNT 4.4 10^3/ul (4.8-10.8)
[2016-11-13 22:05] LABS: INR 1.16; PROTIME 14.9 Sec (12.2-14.2); PT RATIO 1.2
[2016-11-13 22:07] LABS: CALCIUM 8.3 mg/dl (8.4-10.2); CREATININE 3.09 mg/dl (0.61-1.24); MAGNESIUM 2.4 mg/dl (1.7-2.5); PHOSPHORUS 6.4 mg/dl (2.5-4.9)
[2016-11-13 22:17] LABS: POTASSIUM 7.4 mmol/L (3.5-5.1)
[2016-11-13] MEDS ORDERED: INSULIN REGULAR, HUMAN 100 UNIT/1 ML 3ML VIAL IV STA (22:19)
[2016-11-13] MEDS ORDERED: NA POLYST SULFON 15 GM/60 ML BTL PO STA (22:19)
[2016-11-13] MEDS ORDERED: ALBUTEROL 0.5% (NEB) 2.5 MG/0.5 ML AMP INH STA (22:19)
[2016-11-13] MEDS ORDERED: FURO40TA4 PO (22:23)
[2016-11-13] MEDS ORDERED: HYDR-3672 PO (22:24)
[2016-11-13] MEDS ORDERED: ACID1TAB14 PO (22:26)
[2016-11-13] MEDS ORDERED: MORP15TA92 PO (22:27)
--- NOTE | 2016-11-13 22:28 | RADRPT ---
PROCEDURE: CHEST - 1 VIEW CLINICAL INDICATION: 56-year-old male with chest pain. TECHNIQUE: A single frontal AP supine portable view of the chest was performed. The images were r eviewed on a PACS workstation. COMPARISON: Chest x-ray September 29, 2016; chest x-ray September 17, 2016. FINDINGS: The cardiomediastinal silhouette is enlarged. There is pulmonary vascular congestion. There is a s hallow inspiration. There is small left pleural effusion. There is no definite focal consolidation . There is no evidence for pneumothorax. The osseous structures are intact. IMPRESSION: 1. Cardiomegaly. 2. Pulmonary vascular congestion. 3. Shallow inspiration. 4. Small left pleural effusion. .Saeed Castro MD, Date Time Electronically viewed and signed by .Saeed Castro MD, on 11/13/2016 22:28 .M/
[2016-11-13] MEDS ORDERED: NIFE60TA2 PO (22:29)
[2016-11-13] MEDS ORDERED: DEXTROSE 50% 50 ML SYRINGE IV ONE (22:30)
[2016-11-13] MEDS ORDERED: TAMS0.4C2 PO (22:30)
[2016-11-13] MEDS ORDERED: CALCIUM GLUCONATE 10% 2 GM in SOD CHLORIDE 0.9% 100 ML IVPB ONE (22:30)
[2016-11-13] MEDS ORDERED: SEVE800T10 PO (22:30)
[2016-11-13] MEDS ORDERED: VANC125C10 PO (22:33)
[2016-11-13] MEDS ORDERED: DOCU-144 PO (22:34)
[2016-11-13] MEDS ORDERED: MAGN400O4 PO (22:34)
[2016-11-13] MEDS ORDERED: BISA-57 PO (22:35)
[2016-11-13] MEDS ORDERED: FLEETPED PR (22:36)
[2016-11-13] MEDS ORDERED: CRAN450T7 PO (22:38)
[2016-11-13] MEDS ORDERED: ALPR0.25 PO (22:39)
[2016-11-13] MEDS ORDERED: HYDR-906 PO (22:40)
[2016-11-13] MEDS ORDERED: ZOLP5TAB PO (22:40)
[2016-11-13] MEDS ORDERED: ACET325T33 PO (22:43)
[2016-11-13] MEDS ORDERED: TYL500 PO (22:43)
[2016-11-13] MEDS ORDERED: ONDA4TAB8 PO (22:44)
[2016-11-13 22:47] LABS: Allen Test ACCEPTAB; Arterial COHb 0.3 % (0.0-3.0); Arterial Fraction of Oxyhgb 96.9 % (93.0-99.0); Arterial HCO3 11.8 mmol/L (22.0-26.0); Arterial MetHb 0.3 % (0.0-1.5); Arterial Total Hemglobin 10.2 g/dl (12.0-18.0); MODE ROOM AIR
[2016-11-13] MEDS ORDERED: DEXT15LI10 PO (22:50)
[2016-11-13] MEDS ORDERED: DEXT38GE15 PO (22:53)
[2016-11-14] MEDS ORDERED: HYDROCODONE/APAP (5/325) TAB PO ONE
[2016-11-14] MEDS ORDERED: DOCUSATE SODIUM 100 MG CAP PO PRN (00:30)
[2016-11-14] MEDS ORDERED: BISACODYL (EC) 5 MG TAB PO PRN (00:30)
[2016-11-14] MEDS ORDERED: NACL 0.9% 3 ML SYG IV SCH (00:30)
[2016-11-14] MEDS ORDERED: LORAZEPAM 0.5 MG TAB PO ONE (00:30)
[2016-11-14] MEDS ORDERED: DEXTROSE 50% 50 ML SYRINGE IV PRN (01:00)
[2016-11-14] MEDS ORDERED: GLUCOSE GEL 15 GRAM TUBE PO PRN ×2 (01:00)
[2016-11-14] MEDS ORDERED: GLUCAGON 1 MG INJ IM PRN (01:00)
[2016-11-14] MEDS ORDERED: GLUCOSE GEL 15 GRAM TUBE BUCCAL PRN (01:00)
[2016-11-14] MEDS ORDERED: INSULIN ASPART [NOVOLOG] 3 ML PEN SC SCH (01:00)
[2016-11-14 01:16] LABS: URINE BLOOD (Dip) POC Trace-lysed (NEGATIVE)
--- NOTE | 2016-11-14 01:43 | HP ---
DATE OF ADMISSION: 11/13/2016 TIME: 10:00 p.m. CHIEF COMPLAINT: High potassium. HISTORY OF PRESENT ILLNESS: The patient is a 56-year-old male with a history of hypothyroidism, CKD , anemia, hepatitis C, atrial fibrillation, diabetes, hypertension, GERD, anxiety, right eye blindne ss, history of spinal osteomyelitis, and C. diff colitis. The patient presents after being sent for high potassium of 7, as well as elevated creatinine of 2.9. He also reports shortness of breath fo r the past 3 days, diarrhea, and dysuria. The patient has diffuse muscular pain throughout his body . In the ED, the patient's potassium was noted to be 7.4. His creatinine was elevated, but creatin ine is elevated at baseline based on prior hospitalizations. The patient was given treatment for hy perkalemia in the ED. The patient has no other complaints at this time. PAST MEDICAL HISTORY: As per HPI. HOME MEDICATIONS: 1. Protonix. 2. Tradjenta. 3. Synthroid. 4. Ferrous sulfate. 5. Zofran. 6. Acetaminophen. 7. [place]. 8. Xanax. 9. Ambien. 10. Renagel. 11. Nifedipine 12. Furosemide. 13. Finasteride. ALLERGIES: KNOWN DRUG ALLERGIES. FAMILY HISTORY: Noncontributory. SOCIAL HISTORY: Denies any alcohol, tobacco, or drugs. REVIEW OF SYSTEMS: A 12-point review of systems is negative except that discussed above in HPI. PHYSICAL EXAMINATION: VITAL SIGNS: Temperature is 97.7, pulse 68, respiratory rate 14, BP is 106/68, saturation is 100% o n room air. GENERAL: In mild distress, alert and oriented. HEENT: Normocephalic, atraumatic. LUNGS: Clear to auscultation. CARDIOVASCULAR: Regular rate and rhythm. ABDOMEN: Nondistended, nontender, soft. EXTREMITIES: No clubbing, cyanosis, or edema. LABORATORIES: White count is 12.4, hemoglobin is 8.9, platelets are 146. Chemistry: Sodium is 139 , potassium 7.4, chloride is 119, carbon dioxide is 13, BUN is 43, creatinine is 3.09. DIAGNOSTICS: Chest x-ray shows cardiomegaly, pulmonary vascular congestion, small left pleural effu izabela. ASSESSMENT AND PLAN: 1. Severe hyperkalemia secondary to chronic kidney disease. The patient was on dialysis in the pas t. It appears the patient is being monitored off dialysis, but it appears that his renal function c ontinues be poor and will need dialysis. We will consult Dr. Brown of Nephrology, who saw the kelley foster during last hospitalization. The patient does appear to have end-stage renal disease at this t gladis. 2. Metabolic acidosis. This is also secondary to end-stage renal disease. Once again, patient andrews l benefit from dialysis. 3. Hypothyroidism. Continue home medication. 4. History of hepatitis C. No acute issues. 5. Diabetes. Continue home regimen. 6. Benign prostatic hypertrophy. Continue home medications. 7. History of Clostridium difficile. No acute issues. 8. History of spinal osteomyelitis. No acute issues. 9. Prophylaxis: Sequential compression devices. Dictated By: JUDSON TREVINO MD BS/ERICKA Conf#: [id number] DID#: [id number]
[2016-11-14 05:39] LABS: ADD SCAN DIFF NO
[2016-11-14 06:03] LABS: CALCIUM 8.7 mg/dl (8.4-10.2); CREATININE 3.22 mg/dl (0.61-1.24); POTASSIUM 5.9 mmol/L (3.5-5.1)
[2016-11-14 06:08] LABS: BASOPHILS % 0.3 % (0.0-2.0); EOSINOPHILS % 0.5 % (0.0-7.0); HEMOGLOBIN 8.3 g/dl (14.0-18.0); LYMPHOCYTES # 0.7 10^3/ul (0.8-2.9); LYMPHOCYTES % 12.2 % (15.0-51.0); MEAN CORPUSCULAR HEMOGLOBIN 30.1 pg (29.0-33.0); MEAN CORPUSCULAR HGB CONC 31.9 g/dl (32.0-37.0); MEAN CORPUSCULAR VOLUME 94.2 fl (82.0-101.0); MEAN PLATELET VOLUME 10.3 fl (7.4-10.4); MONOCYTE # 0.4 10^3/ul (0.3-0.9); MONOCYTES % 6.7 % (0.0-11.0); NEUTROPHIL # 4.7 10^3/ul (1.6-7.5); NEUTROPHILS % 79.1 % (39.0-77.0); PLATELET COUNT 122 10^3/UL (140-415); RED BLOOD COUNT 2.76 10^6/ul (4.70-6.10); RED CELL DISTRIBUTION WIDTH 16.7 % (11.5-14.5)
[2016-11-14] MEDS: PANTOPRAZOLE (EC) 40 MG TAB PO SCH (06:20)
[2016-11-14] MEDS: NIFEdipine (XL) 60 MG TAB PO SCH ×2 (09:00→21:35)
[2016-11-14] MEDS: DOCUSATE SODIUM 100 MG CAP PO SCH (10:58)
[2016-11-14] MEDS: MAGNESIUM HYDROXIDE 30ML CUP PO SCH (10:58)
[2016-11-14] MEDS: morphine (ER) 15 MG TAB PO SCH ×2 (10:58→21:36)
[2016-11-14] MEDS: FINASTERIDE 5 MG TAB PO SCH (10:59)
[2016-11-14] MEDS: LEVOTHYROXINE 75 MCG TAB PO SCH (10:59)
[2016-11-14] MEDS: SEVELAMER 800 MG TAB PO SCH ×4 (10:59→21:35)
--- NOTE | 2016-11-14 11:24 | CONS ---
DATE OF ADMISSION: 11/13/2016 DATE OF CONSULTATION: 11/14/2016 TYPE OF CONSULTATION: Nephrology. REASON FOR CONSULTATION: Acute kidney injury, hyperkalemia. PHYSICIAN REQUESTING CONSULT: Dr. Gilbert. HISTORY OF PRESENT ILLNESS: This is a 56-year-old male with a past medical history of CKD stage IV/ V with a baseline creatinine around 2.5 mg/dL, history of hypothyroidism, diabetes, diabetic retinop athy, spinal osteomyelitis, status post laminectomy, history of hepatitis C, benign prostatic hypert rophy, conjunctivitis, who has had multiple admissions to [facility] for UTI and a cute kidney injury. The patient was recently admitted earlier this month for hyperkalemia, acute ki dney injury was treated medically and discharged. The patient had prior admissions where he was adm itted for renal failure requiring hemodialysis. The patient has had hemodialysis on 2 separate occa sions. Each time, the patient had sufficient recovery and was taken off dialysis. The patient now presents to [facility] with abnormal labs from the [facility] facility. The patient upon arrival had a sodium 139, potassium 7.4, BUN 43, creatinine 3.09. In the emergency maria luisa m, the patient was given calcium gluconate, Kayexalate, insulin, and albuterol with improvement in p otassium to 5.9 mEq per liter. There have been no reports of hemoptysis, hematemesis or hematochezi a. PAST MEDICAL HISTORY: As stated above, history of CKD stage V, history of hypertension, diabetes, d iabetic retinopathy, history of hepatitis C, history of atrial fibrillation. PAST SURGICAL HISTORY: Status post Johnathan catheter placement and removal. FAMILY HISTORY: Noncontributory. SOCIAL HISTORY: Denies alcohol or drug use. MEDICATIONS: Have been reviewed. REVIEW OF SYSTEMS: A 14-point review of systems was conducted. Pertinent positives in HPI, otherwi se negative. PHYSICAL EXAMINATION: VITAL SIGNS: Blood pressure is 110/76, respirations 18, pulse 72, temperature 98.6. HEENT: Head is normocephalic. Pupils are reactive to light. NECK: Supple. HEART: Regular rate. LUNGS: Show diminished breath sounds at the base. ABDOMEN: Soft, nontender to palpation. No rebound or guarding. EXTREMITIES: Negative for clubbing, cyanosis. Positive edema. DERMATOLOGIC: No rashes. MUSCULOSKELETAL: No joint effusions. NEUROLOGIC: No change in exam. MEDICATIONS: The patient's medications have been reviewed. LABORATORY DATA: Shows a white count 6.0, hemoglobin 8.3, hematocrit 26.0, platelet count is 122. Sodium 143, potassium 5.9, chloride 121, BUN 46, creatinine 3.22. ASSESSMENT AND PLAN: 1. Nonoliguric acute kidney injury on top of chronic kidney disease stage V with a baseline creatin ine 2.5 mg/dL. Etiology is likely from hemodynamics with underlying progression of chronic kidney d isease. The patient has been on dialysis on 2 separate occasions, and was taken off. However, he remains persistently hyperkalemic and volume overloaded. At this point, I spoke with the patient and told him that he will be placed back on dialysis permanently. Plan is to have a Johnathan catheter placed today. Once the catheter is placed, the patient will be dialyzed solute clearance and volume removal. Will then anticipate Perm-A-Cath placement in the next severa l days. Will continue to monitor closely. 2. Hyperkalemia secondary to chronic kidney disease and acute kidney injury. Plan is for hemodialy sis today. The patient will be dialyzed on a 2K bath. We will place the patient on a renal diet. 3. Metabolic acidosis secondary to acute kidney injury, chronic kidney disease. Plan for anticipat ed hemodialysis today. The patient will be dialyzed on a bicarbonate bath of 40. 4. Mineral bone disorder. Continue to monitor calcium and phosphorus levels. Continue phosphate b inders. 5. Volume overload secondary to acute kidney injury, congestive heart failure. The patient will un dergo ultrafiltration with hemodialysis. 5. Acute respiratory failure secondary to pulmonary congestion, congestive heart failure. Plan is for hemodialysis for volume removal. 6. History of benign prostatic hypertrophy. Continue medical management. 7. Clostridium difficile. Thank you, Dr. Gilbert, for this interesting consult. It will be a pleasure to follow the patient w alfie villalta throughout the hospital course. Dictated By: NAE SINHA/NTS Conf#: [id number] DID#: [id number] CC: JUDSON GILBERT MD;*EndCC*
[2016-11-14 16:25] VITALS: TEMP 98.3
[2016-11-14 17:04] VITALS: BP 116/78; RESP 18
[2016-11-14 18:06] LABS: CALCIUM 8.5 mg/dl (8.4-10.2); CREATININE 3.21 mg/dl (0.61-1.24); POTASSIUM 5.9 mmol/L (3.5-5.1)
[2016-11-14] MEDS: morphine 2 MG INJ IV PRN (18:42)
[2016-11-14] MEDS: DEXTROSE 50% 50 ML SYRINGE IV PRN (18:51)
[2016-11-14 20:00] VITALS: BP 111/56; RESP 15
[2016-11-14 20:44] VITALS: PULSE 66
[2016-11-14] MEDS: INSULIN ASPART [NOVOLOG] 3 ML PEN SC SCH (21:00)
[2016-11-14] MEDS: TAMSULOSIN (SR) 0.4 MG CAP PO SCH (21:35)
--- NOTE | 2016-11-14 23:59 | PN ---
Date/Time of Note Date/Time of Note DATE: 11/14/16 TIME: 23:59 Assessment/Plan VTE Prophylaxis VTE Prophylaxis Intervention: SCD's Lines/Catheters IV C[facility] Type (from [facility] Saline Lock Urinary Cath still in place: No Assessment/Plan Assessment/Plan IMPRESSION: 1. Acute on CKD 2. Hyperkalemia 3. History of Lumbar spine osteomyelitis and Epidural abscess s/p Decompressive laminectomy and abscess evacuation 06/2016 4. History of Pyelonephritis 5. Hx of Diabetes, but pt has been hypoglycemic 6. Hypothyroidism. 7. 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 8. Benign prostatic hypertrophy. PLAN correct electrolytes appreciate Dr. Brown. Will f/u his recommendation cont current medical mgmt pt is Diabetic, but has been hypoglycemic, likely contributed by worsening kidney function. will monitor closely Subjective 24 Hr Interval Summary Free Text/Dictation no acute overnight event Exam/Review of Systems Vital Signs Vitals Vital Signs Date Time Temp Pulse Resp B/P Pulse Ox O2 Delivery O2 Flow Rate FiO2 11/14/16 20:44 66 11/14/16 20:00 97.8 15 111/56 98 11/14/16 16:25 Room Air 11/14/16 13:18 11/13/16 23:00 21 Intake and Output 11/13/16 11/13/16 11/14/16 15:00 23:00 07:00 Intake Total 120 ml Balance 120 ml Exam GENERAL: The patient lying in bed in no acute distress. He is sleepy, but arousable. HEENT: No obvious head deformity. He is legally blind on the right eye. CARDIOVASCULAR: Regular rate and rhythm. No extra sounds. LUNGS: Clear anteriorly. ABDOMEN: Soft. There is some tenderness in the lower abdominal region bilaterally with no guarding, no rebound tenderness, no rigidity. BACK: Scar from from laminectomy . LOWER EXTREMITIES: Trace pitting edema. Results Result Diagram: 11/14/16 0522 11/14/16 1730 Results 24 hrs Laboratory Tests Test 11/14/16 01:18 11/14/16 05:17 11/14/16 05:22 11/14/16 17:30 Bedside Urine pH (LAB) 5.5 Bedside Urine Protein (LAB) 2+ H Bedside Urine Glucose (UA) Negative Bedside Urine Ketones (LAB) Negative Bedside Urine Blood Trace-lysed H Bedside Urine Nitrite (LAB) Negative Bedside Urine Leukocyte Esterase (L Trace H Bedside Glucose 78 White Blood Count 6.0 # Red Blood Count 2.76 L Hemoglobin 8.3 L Hematocrit 26.0 L Mean Corpuscular Volume 94.2 Mean Corpuscular Hemoglobin 30.1 Mean Corpuscular Hemoglobin Concent 31.9 L Red Cell Distribution Width 16.7 H Platelet Count 122 L Mean Platelet Volume 10.3 Neutrophils % 79.1 H Lymphocytes % 12.2 L Monocytes % 6.7 Eosinophils % 0.5 Basophils % 0.3 Nucleated Red Blood Cells % 0.0 Neutrophils # 4.7 Lymphocytes # 0.7 L Monocytes # 0.4 Eosinophils # 0.0 Basophils # 0.0 Nucleated Red Blood Cells # 0.0 Sodium Level 143 140 Potassium Level 5.9 H 5.9 H Chloride Level 121 H 116 H Carbon Dioxide Level 12 L 13 L Anion Gap 16 17 H Blood Urea Nitrogen 46 H 44 H Creatinine 3.22 H 3.21 H Glucose Level 71 67 L Calcium Level 8.7 8.5 Test 11/14/16 18:44 11/14/16 19:04 11/14/16 20:12 11/14/16 21:24 Bedside Glucose 69 L 135 102 85 Medications Medications Current Medications Ondansetron HCl (Zofran Inj) 4 mg Q6H PRN IV NAUSEA AND/OR VOMITING; Start at 00:30 Acetaminophen (Tylenol Tab) 650 mg Q6H PRN PO PAIN LEVEL 1-3 OR FEVER; Start at 00:30 Acetaminophen/ Hydrocodone Bitart ([place] (5/325)) 1 tab Q6H PRN PO MODERATE PAIN LEVEL 4-6; Start 11/14/16 at 00:30 Morphine Sulfate (morphine) 2 mg Q4H PRN IV SEVERE PAIN LEVEL 7-10 Last administered on 11/14/16t 18:42; Admin Dose 2 MG; Start 11/14/16 at 00:30 Docusate Sodium (Colace) 100 mg Q12H PRN PO CONSTIPATION; Start 11/14/16 at 00: 30 Alprazolam (Xanax) 0.25 mg Q8H PRN PO ANXIETY; Start 11/14/16 at 00:30 Bisacodyl (Dulcolax) 10 mg DAILY PRN PO CONSTIPATION; Start 11/14/16 at 00:30 Docusate Sodium (Colace) 200 mg DAILY PO Last administered on 11/14/16 10:58; Admin Dose 200 MG; Start 11/14/16 at 09:00 Finasteride (Proscar) 5 mg DAILY PO Last administered on 11/14/16 10:59; Admin Dose 5 MG; Start 11/14/16 at 09:00 Hydralazine HCl (Apresoline) 50 mg TID PO Last administered on 11/14/16 21:35 ; Admin Dose 50 MG; Start 11/14/16 at 09:00 Levothyroxine Sodium (Synthroid) 75 mcg DAILY@06 PO Last administered on 10:59; Admin Dose 75 MCG; Start 11/14/16 at 06:00 Magnesium Hydroxide (Milk Of Mag) 30 ml DAILY PO Last administered on 10:58; Admin Dose 30 ML; Start 11/14/16 at 09:00 Morphine Sulfate (Ms Contin (Er)) 15 mg Q12 PO Last administered on 11/14/16 21:36; Admin Dose 15 MG; Start 11/14/16 at 09:00 Pantoprazole (Protonix Tab) 40 mg DAILY@06 PO Last administered on 11/14/16 06 :20; Admin Dose 40 MG; Start 11/14/16 at 06:00 Simethicone (Mylicon) 80 mg Q6H PRN PO DISTENSION/GAS/BLOATING; Start 11/14/16 at 00:30 Tamsulosin HCl (Flomax) 0.4 mg HS PO Last administered on 11/14/16 21:35; Admin Dose 0.4 MG; Start 11/14/16 at 21:00 Nifedipine (Procardia Xl) 60 mg BID PO Last administered on 11/14/16 21:35; Admin Dose 60 MG; Start 11/14/16 at 09:00 Miscellaneous Information 1 ea NOTE XX ; Start 11/14/16 at 01:00 Glucose (Glutose) 15 gm Q15M PRN PO DECREASED GLUCOSE; Start 11/14/16 at 01:00 Glucose (Glutose) 22.5 gm Q15M PRN PO DECREASED GLUCOSE; Start 11/14/16 at 01: 00 Dextrose (D50w Syringe) 25 ml Q15M PRN IV DECREASED GLUCOSE Last administered on 11/14/16 18:51; Admin Dose 25 ML; Start 11/14/16 at 01:00 Dextrose (D50w Syringe) 50 ml Q15M PRN IV DECREASED GLUCOSE; Start 11/14/16 at 01:00 Glucagon (Glucagen) 1 mg Q15M PRN IM DECREASED GLUCOSE; Start 11/14/16 at 01:00 Glucose (Glutose) 15 gm Q15M PRN BUCCAL DECREASED GLUCOSE; Start 11/14/16 at 01 :00 Diagnostic Test (Pha) (Accu-Chek) 1 ea 02 XX ; Start 11/15/16 at 02:00 GIOVANNI ODELL MD Nov 14, 2016 23:59
[2016-11-15] VITALS (18 sets, daily range): BP systolic 80–134; BP diastolic 48–73; PULSE 50–66; RESP 15–18
[2016-11-15] MEDS: ALPRAZOLAM 0.25 MG TAB PO PRN ×3 (01:44→21:06)
[2016-11-15] MEDS ORDERED: ACCU-CHEK XX SCH (02:00)
[2016-11-15] MEDS: ACCU-CHEK XX SCH (02:00)
[2016-11-15] MEDS: PANTOPRAZOLE (EC) 40 MG TAB PO SCH ×2 (05:44→05:47)
[2016-11-15] MEDS: LEVOTHYROXINE 75 MCG TAB PO SCH ×2 (05:44→05:47)
[2016-11-15] MEDS: INSULIN ASPART [NOVOLOG] 3 ML PEN SC SCH ×4 (08:00→21:00)
[2016-11-15 08:17] LABS: ADD SCAN DIFF NO
[2016-11-15 08:27] LABS: EOSINOPHILS # 0.1 10^3/ul (0.0-0.5); EOSINOPHILS % 3.8 % (0.0-7.0); HEMATOCRIT 24.4 % (42.0-52.0); HEMOGLOBIN 7.8 g/dl (14.0-18.0); LYMPHOCYTES # 0.7 10^3/ul (0.8-2.9); LYMPHOCYTES % 23.3 % (15.0-51.0); MEAN CORPUSCULAR VOLUME 93.8 fl (82.0-101.0); MEAN PLATELET VOLUME 10.4 fl (7.4-10.4); MONOCYTE # 0.3 10^3/ul (0.3-0.9); NEUTROPHILS % 62.6 % (39.0-77.0); PLATELET COUNT 108 10^3/UL (140-415); RED CELL DISTRIBUTION WIDTH 16.8 % (11.5-14.5); WHITE BLOOD COUNT 3.1 10^3/ul (4.8-10.8)
[2016-11-15 08:36] LABS: ALBUMIN 3.1 g/dl (3.3-4.9); ALBUMIN/GLOBULIN RATIO 1.03; CALCIUM 7.9 mg/dl (8.4-10.2); CREATININE 3.15 mg/dl (0.61-1.24); TOTAL PROTEIN 6.1 g/dl (6.1-8.1)
[2016-11-15] MEDS: FINASTERIDE 5 MG TAB PO SCH (09:00)
[2016-11-15] MEDS: NIFEdipine (XL) 60 MG TAB PO SCH ×2 (09:00→21:00)
[2016-11-15] MEDS: DOCUSATE SODIUM 100 MG CAP PO SCH (09:00)
[2016-11-15] MEDS: SEVELAMER 800 MG TAB PO SCH ×3 (09:00→18:55)
[2016-11-15] MEDS: MAGNESIUM HYDROXIDE 30ML CUP PO SCH (09:00)
[2016-11-15] MEDS: morphine (ER) 15 MG TAB PO SCH ×3 (09:00→21:06)
[2016-11-15 09:08] LABS: POTASSIUM 6.4 mmol/L (3.5-5.1)
[2016-11-15] MEDS ORDERED: SOD CHLORIDE 0.9% 1,000 ML IV SCH (09:30)
[2016-11-15] MEDS ORDERED: NA POLYST SULFON 15 GM/60 ML BTL PO ONE (09:30)
[2016-11-15] MEDS ORDERED: SOD CHLORIDE 0.9% 1,000 ML IV ONE (09:30)
[2016-11-15] MEDS ORDERED: CALCIUM GLUCONATE 10% 1 GM in SOD CHLORIDE 0.9% 100 ML IVPB ONE (10:00)
[2016-11-15] MEDS ORDERED: SODIUM BICARBONATE (IV ADD) 150 MEQ in DEXTROSE 5% 850 ML IV SCH (10:00)
[2016-11-15] MEDS ORDERED: SODIUM BICARBONATE (IV ADD) 150 MEQ in DEXTROSE 5% 1,000 ML IV SCH (10:00)
[2016-11-15] MEDS: ALBUMIN HUMAN 25% 100 ML IV SCH ×4 (10:10→19:00)
--- NOTE | 2016-11-15 13:34 | PN ---
Date/Time of Note Date/Time of Note DATE: 11/15/16 TIME: 13:32 Assessment/Plan VTE Prophylaxis VTE Prophylaxis Intervention: SCD's Lines/Catheters IV [facility]from [facility] Saline Lock Urinary Cath still in place: No Assessment/Plan Assessment/Plan 1. Acute on CKD- worsening with persistent hyperkalemia 2. Hyperkalemia 3. History of Lumbar spine osteomyelitis and Epidural abscess s/p Decompressive laminectomy and abscess evacuation 06/2016 4. History of Pyelonephritis 5. Hx of Diabetes, but pt has been hypoglycemic 6. Hypothyroidism. 7. 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 8. Benign prostatic hypertrophy. PLAN Plan for HD catheter today and plan for starting HD today D51/2 NS at 50 cc/hr Nephrolgoy has been following Subjective 24 Hr Interval Summary Free Text/Dictation K persistently high, renal function has been gettign worse, plan for HD initiation Exam/Review of Systems Vital Signs Vitals Vital Signs Date Time Temp Pulse Resp B/P Pulse Ox O2 Delivery O2 Flow Rate FiO2 11/15/16 12:11 50 11/15/16 11:46 97.5 16 83/48 100 11/14/16 16:25 Room Air 11/14/16 13:18 11/13/16 23:00 21 Intake and Output 11/14/16 11/14/16 11/15/16 14:59 22:59 06:59 Intake Total 240 ml Output Total 200 ml Balance 40 ml Exam GENERAL: The patient lying in bed in no acute distress. He is sleepy, but arousable. HEENT: No obvious head deformity. He is legally blind on the right eye. CARDIOVASCULAR: Regular rate and rhythm. No extra sounds. LUNGS: Clear anteriorly. ABDOMEN: Soft. There is some tenderness in the lower abdominal region bilaterally with no guarding, no rebound tenderness, no rigidity. BACK: Scar from from laminectomy . LOWER EXTREMITIES: Trace pitting edema. Results Result Diagram: 11/15/16 0810 11/15/16 0810 Results 24 hrs Laboratory Tests Test 11/14/16 17:30 11/14/16 18:44 11/14/16 19:04 11/14/16 20:12 Sodium Level 140 Potassium Level 5.9 H Chloride Level 116 H Carbon Dioxide Level 13 L Anion Gap 17 H Blood Urea Nitrogen 44 H Creatinine 3.21 H Glucose Level 67 L Calcium Level 8.5 Bedside Glucose 69 L 135 102 Test 11/14/16 21:24 11/15/16 08:10 11/15/16 08:50 11/15/16 09:50 Bedside Glucose 85 68 L 71 White Blood Count 3.1 #L Red Blood Count 2.60 L Hemoglobin 7.8 L Hematocrit 24.4 L Mean Corpuscular Volume 93.8 Mean Corpuscular Hemoglobin 30.0 Mean Corpuscular Hemoglobin Concent 32.0 Red Cell Distribution Width 16.8 H Platelet Count 108 L Mean Platelet Volume 10.4 Neutrophils % 62.6 Lymphocytes % 23.3 Monocytes % 8.0 Eosinophils % 3.8 Basophils % 1.0 Nucleated Red Blood Cells % 0.0 Neutrophils # 2.0 Lymphocytes # 0.7 L Monocytes # 0.3 Eosinophils # 0.1 Basophils # 0.0 Nucleated Red Blood Cells # 0.0 Sodium Level 139 Potassium Level 6.4 *H Chloride Level 119 H Carbon Dioxide Level 14 L Anion Gap 12 Blood Urea Nitrogen 44 H Creatinine 3.15 H Glucose Level 63 L Calcium Level 7.9 L Total Bilirubin 0.0 L Direct Bilirubin 0.00 Indirect Bilirubin 0.0 Aspartate Amino Transf (AST/SGOT) 11 L Alanine Aminotransferase (ALT/SGPT) 28 Alkaline Phosphatase 62 Total Protein 6.1 Albumin 3.1 L Globulin 3.00 Albumin/Globulin Ratio 1.03 Test 11/15/16 11:38 Bedside Glucose 62 L Medications Medications Current Medications Ondansetron HCl (Zofran Inj) 4 mg Q6H PRN IV NAUSEA AND/OR VOMITING; Start at 00:30 Acetaminophen (Tylenol Tab) 650 mg Q6H PRN PO PAIN LEVEL 1-3 OR FEVER; Start at 00:30 Acetaminophen/ Hydrocodone Bitart ([place] (5/325)) 1 tab Q6H PRN PO MODERATE PAIN LEVEL 4-6; Start 11/14/16 at 00:30 Morphine Sulfate (morphine) 2 mg Q4H PRN IV SEVERE PAIN LEVEL 7-10 Last administered on 11/14/16t 18:42; Admin Dose 2 MG; Start 11/14/16 at 00:30 Docusate Sodium (Colace) 100 mg Q12H PRN PO CONSTIPATION; Start 11/14/16 at 00: 30 Alprazolam (Xanax) 0.25 mg Q8H PRN PO ANXIETY Last administered on 11/15/16 09 :38; Admin Dose 0.25 MG; Start 11/14/16 at 00:30 Bisacodyl (Dulcolax) 10 mg DAILY PRN PO CONSTIPATION; Start 11/14/16 at 00:30 Docusate Sodium (Colace) 200 mg DAILY PO Last administered on 11/15/16 09:00; Admin Dose 200 MG; Start 11/14/16 at 09:00 Finasteride (Proscar) 5 mg DAILY PO Last administered on 11/15/16 09:00; Admin Dose 5 MG; Start 11/14/16 at 09:00 Hydralazine HCl (Apresoline) 50 mg TID PO Last administered on 11/14/16 21:35 ; Admin Dose 50 MG; Start 11/14/16 at 09:00; Status Future Hold Levothyroxine Sodium (Synthroid) 75 mcg DAILY@06 PO Last administered on 10:59; Admin Dose 75 MCG; Start 11/14/16 at 06:00 Magnesium Hydroxide (Milk Of Mag) 30 ml DAILY PO Last administered on 09:00; Admin Dose 30 ML; Start 11/14/16 at 09:00 Morphine Sulfate (Ms Contin (Er)) 15 mg Q12 PO Last administered on 11/15/16 12:44; Admin Dose 15 MG; Start 11/14/16 at 09:00 Pantoprazole (Protonix Tab) 40 mg DAILY@06 PO Last administered on 11/14/16 06 :20; Admin Dose 40 MG; Start 11/14/16 at 06:00 Simethicone (Mylicon) 80 mg Q6H PRN PO DISTENSION/GAS/BLOATING; Start 11/14/16 at 00:30 Tamsulosin HCl (Flomax) 0.4 mg HS PO Last administered on 11/14/16 21:35; Admin Dose 0.4 MG; Start 11/14/16 at 21:00 Nifedipine (Procardia Xl) 60 mg BID PO Last administered on 11/14/16 21:35; Admin Dose 60 MG; Start 11/14/16 at 09:00 Miscellaneous Information 1 ea NOTE XX ; Start 11/14/16 at 01:00 Glucose (Glutose) 15 gm Q15M PRN PO DECREASED GLUCOSE; Start 11/14/16 at 01:00 Glucose (Glutose) 22.5 gm Q15M PRN PO DECREASED GLUCOSE; Start 11/14/16 at 01: 00 Dextrose (D50w Syringe) 25 ml Q15M PRN IV DECREASED GLUCOSE Last administered on 11/14/16 18:51; Admin Dose 25 ML; Start 11/14/16 at 01:00 Dextrose (D50w Syringe) 50 ml Q15M PRN IV DECREASED GLUCOSE; Start 11/14/16 at 01:00 Glucagon (Glucagen) 1 mg Q15M PRN IM DECREASED GLUCOSE; Start 11/14/16 at 01:00 Glucose (Glutose) 15 gm Q15M PRN BUCCAL DECREASED GLUCOSE; Start 11/14/16 at 01 :00 Diagnostic Test (Pha) 1 ea 1 ea 02 XX ; Start 11/15/16 at 02:00 Sodium Bicarbonate/ Dextrose (Na Bicarb/D5W) 1,000 ml @ 50 mls/hr Q20H IV Last administered on 11/15/16 12:48; Admin Dose 50 MLS/HR; Start 11/15/16 at 10 :00 BHUMI CONRAD MD Nov 15, 2016 13:34
--- NOTE | 2016-11-15 15:08 | PRO ---
Date/Time of Note Date/Time of Note DATE: 11/15/16 TIME: 15:03 Femoral CV Placement PROCEDURE NOTE PROCEDURE: Left femoral vein dialysis catheter DATE: 11/15/16 INDICATION: Need for temporary dialysis access due to renal failure PROCEDURE EMT I/85: Jarvis Bolton MD CONSENT: Informed consent was obtained at bedside and signature documented in the paper chart. Risks, benefits and alternatives reviewed with patient who appeared to understand and wished to proceed. PROCEDURE SUMMARY: The patient's left groin was prepped and draped in the usual sterile manner. 1% lidocaine was used to numb the region. The finder needle was used to locate the left femoral vein. A triple-lumen 12 Estonian hemodialysis catheter was inserted using the Seldinger technique. All ports aspirate and flushed without difficulty. The patient tolerated the procedure well without any immediate complications. The line was sutured into place and the area was cleaned and Tegaderm applied. No obvious complications post procedure. Confirmatory abdominal x-ray ordered. ESTIMATED BLOOD LOSS: 10 ml JARVIS BOLTON M.D. Nov 15, 2016 15:08
[2016-11-15] MEDS ORDERED: DEXTROSE 5%-0.45% NACL 1,000 ML IV SCH ×2 (15:30→16:00)
[2016-11-15 16:35] LABS: CREATININE 3.27 mg/dl (0.61-1.24)
[2016-11-15 16:39] LABS: POTASSIUM 6.5 mmol/L (3.5-5.1)
--- NOTE | 2016-11-15 17:03 | RADRPT ---
PROCEDURE: XR Abdomen. CLINICAL INDICATION: Confirmation of Johnathan catheter placement TECHNIQUE: Portable supine AP abdomen x-ray. COMPARISON: 09/03/2016 FINDINGS: Copious material within a distended stomach is noted. The distal tip of a left femoral approach [place] n[place] catheter projects to the left of the mid sacroiliac joint in the region of the iliac vessels. T here is no evidence of bowel obstruction. No visceromegaly, soft tissue mass or pathologic calcifica tion is demonstrated. The osseous structures are unremarkable. Extensive arteriosclerotic calcification is present. RPTAT:HJJR IMPRESSION: 1. Distal tip of a left femoral approach Johnathan catheter projects to the left of the mid sacroilia c joint in the region of the iliac vessels. 2. Gastric distension with fluid/debris in the stomach lumen. 3. Extensive arteriosclerotic calcification. Physician Radha Date Time Electronically viewed and signed by Physician Radha on 11/15/2016 17:02 /
[2016-11-15] MEDS: TAMSULOSIN (SR) 0.4 MG CAP PO SCH (21:06)
[2016-11-16] VITALS (19 sets, daily range): BP systolic 116–175; BP diastolic 60–90; PULSE 62–76; RESP 16–22
[2016-11-16] MEDS: ACCU-CHEK XX SCH (02:00)
[2016-11-16] MEDS: PANTOPRAZOLE (EC) 40 MG TAB PO SCH (06:07)
[2016-11-16] MEDS: ALPRAZOLAM 0.25 MG TAB PO PRN (06:07)
[2016-11-16] MEDS: LEVOTHYROXINE 75 MCG TAB PO SCH (06:07)
[2016-11-16 07:31] LABS: ADD SCAN DIFF NO
[2016-11-16 07:53] LABS: ABNORMAL IP MESSAGE 1; BASOPHILS % 0.8 % (0.0-2.0); EOSINOPHILS # 0.1 10^3/ul (0.0-0.5); HEMATOCRIT 24.4 % (42.0-52.0); HEMOGLOBIN 8.2 g/dl (14.0-18.0); LYMPHOCYTES # 0.4 10^3/ul (0.8-2.9); LYMPHOCYTES % 11.7 % (15.0-51.0); MEAN CORPUSCULAR HEMOGLOBIN 30.3 pg (29.0-33.0); MEAN CORPUSCULAR HGB CONC 33.6 g/dl (32.0-37.0); MEAN PLATELET VOLUME 10.2 fl (7.4-10.4); MONOCYTE # 0.1 10^3/ul (0.3-0.9); MONOCYTES % 3.6 % (0.0-11.0); NEUTROPHIL # 2.9 10^3/ul (1.6-7.5); NEUTROPHILS % 80.1 % (39.0-77.0); PLATELET COUNT 107 10^3/UL (140-415); RED BLOOD COUNT 2.71 10^6/ul (4.70-6.10); RED CELL DISTRIBUTION WIDTH 16.2 % (11.5-14.5); WHITE BLOOD COUNT 3.7 10^3/ul (4.8-10.8)
[2016-11-16] MEDS: INSULIN ASPART [NOVOLOG] 3 ML PEN SC SCH ×4 (08:00→21:00)
[2016-11-16 08:18] LABS: CREATININE 1.13 mg/dl (0.61-1.24); PHOSPHORUS 2.5 mg/dl (2.5-4.9)
[2016-11-16 08:23] LABS: POTASSIUM 2.2 mmol/L (3.5-5.1)
[2016-11-16] MEDS: MAGNESIUM HYDROXIDE 30ML CUP PO SCH (09:23)
[2016-11-16] MEDS: SEVELAMER 800 MG TAB PO SCH ×3 (09:23→17:23)
[2016-11-16] MEDS: morphine (ER) 15 MG TAB PO SCH ×2 (09:24→22:21)
[2016-11-16] MEDS: DOCUSATE SODIUM 100 MG CAP PO SCH (09:24)
[2016-11-16] MEDS: NIFEdipine (XL) 60 MG TAB PO SCH ×2 (09:24→22:22)
[2016-11-16] MEDS: FINASTERIDE 5 MG TAB PO SCH (09:25)
[2016-11-16 13:35] LABS: CALCIUM 8.1 mg/dl (8.4-10.2); CREATININE 1.77 mg/dl (0.61-1.24); POTASSIUM 4.4 mmol/L (3.5-5.1)
--- NOTE | 2016-11-16 16:46 | HP ---
DATE OF ADMISSION: 11/14/2016 TYPE OF CONSULTATION: VASCULAR SURGERY CONSULTATION Dear Doctors: Mr. Rios is a 56-year-old gentleman with history of chronic kidney disease stage IV to V impending end-stage renal, who presented with elevated creatinine and hyperkalemia requiring u rgent hemodialysis. The patient subsequently has undergone a Johnathan catheter placement, has underg one dialysis thus far. At the moment, the patient denies shortness of breath, chest pain, nausea, v omiting, fever or chills. REVIEW OF SYSTEMS: A 14-point review performed and negative except what is mentioned in the HPI. PAST MEDICAL HISTORY: Entails chronic kidney disease stage IV to V, impending end-stage renal, hypo thyroidism, diabetic retinopathy, diabetic neuropathy, spinal osteomyelitis, hepatitis C, benign pro static hypertrophy, conjunctivitis, multiple admissions for renal failure. PAST SURGICAL HISTORY: Status post laminectomy, history of atrial fibrillation, multiple Johnathan ca theter placement. FAMILY HISTORY: Positive for hypertension, diabetes. SOCIAL HISTORY: Denies current alcohol, tobacco or illicit drug use. PHYSICAL EXAMINATION: GENERAL: Alert and oriented x3, no apparent distress. HEENT: Normocephalic, atraumatic. Poor dentition, EOMI. Mucosa moist. NECK: Supple. No carotid bruit. PULMONARY: Clear to auscultation bilaterally. No crackles. CARDIOVASCULAR: S1, S2 present. No murmurs. ABDOMEN: Soft, nontender, nondistended. Bowel sounds positive. EXTREMITIES: Lower extremity palpable femoral pulse, nonpalpable pedal pulse. Motor and sensory in tact. Cap refill 3 seconds. No ulcers identified. ASSESSMENT AND PLAN: 1. Chronic kidney disease stage IV to V impending end-stage renal disease: It seems the patient's renal failure has progressed to end-stage renal and requiring hemodialysis. At the moment, the jeana ent has a Johnathan catheter. We will plan to change to eventual PermCath prior to discharge. 2. We will plan to obtain bilateral upper extremity vein mapping in order to create a new fistula f or the patient. 3. Optimize vascular status (BP meds, diet, nutrition, exercise, sugar control, antiplatelets). Discussed findings, plan and management with the patient and he understands. Thank you for allowing us to partake in the care of your patient. Please call with any questions. Dictated By: SIMBA LAWRENCE/ERICKA Conf#: [id number] DID#: [id number]
--- NOTE | 2016-11-16 17:13 | CONS ---
DATE OF ADMISSION: 11/14/2016 DATE OF CONSULTATION: 11/16/2016 TYPE OF CONSULTATION: Cardiac. REASON FOR CONSULTATION: Preoperative evaluation. I was asked by Dr. Warner to evaluate the patient prior to planned AV fistula placement to be per formed on this hospitalization under local block. HISTORY OF PRESENT ILLNESS: Mr. Rios is a 56-year-old gentleman with severe end-stage chronic kid mara disease and extensive medical history including hypothyroidism, diabetes retinopathy, ____ osteo myelitis, hepatitis C, BPH, transferred for hyperkalemia of 5.9. PAST MEDICAL HISTORY: As stated above. PAST SURGICAL HISTORY: Status post Johnathan catheter placement and removal in the past. REVIEW OF SYSTEMS: The patient is a poor historian. Denies chest pain, shortness of breath and oth er complaints. PHYSICAL EXAMINATION: GENERAL: He is in no distress. He is thin. VITAL SIGNS: Temperature 97.7, pulse 72, blood pressure 156/81, oxygen saturation 96%. NECK: No jugular venous distention. LUNGS: Clear. CARDIAC: Regular rate and rhythm. ABDOMEN: Soft, nontender, nondistended. EXTREMITIES: No clubbing, cyanosis, or edema. LABORATORY RESULTS: Reviewed. White count 3.7, hematocrit 24.4, platelet count 107. Sodium 138, p otassium 4.4, BUN 25, creatinine 1.7. ASSESSMENT: Patient for planned AV fistula. He did undergo a cardiac evaluation in July of this y ear and underwent stress testing at that time which showed no ischemia. I do not see any cardiac contraindication to proceeding with planned procedure. Patient is at low r isk for complications given that it will be performed under local block and a recent stress testing was negative. Thank you very much for this consultation. We will follow as necessary. Dictated By: MAIA CASIANO/ERICKA Conf#: [id number] DID#: [id number]
--- NOTE | 2016-11-16 19:47 | RADRPT ---
PROCEDURE: US Bilateral Upper Extremity Veins. CLINICAL INDICATION: Bilateral upper extremity swelling. Venous diameter for dialysis fistula plan kimberly. TECHNIQUE: Multiple longitudinal and transverse images of the bilateral upper extremity venous minh e was obtained with herrera scale and color Doppler imaging. COMPARISON: None available FINDINGS: The subclavian veins, axillary, brachial, basilic, and cephalic veins are patent bilaterally. There is normal flow with augmentation and compressibility throughout. There is no thrombus or occlusion. Diameters are as follows: Right arm cephalic upper: 0.37 cm. Right arm cephalic mid: 0.36 cm. Right arm cephalic lower: 0.39 cm. Right forearm cephalic upper: 0.17 cm. Right forearm cephalic mid: 0.15 cm. Right forearm cephalic lower: 0.13 cm. Right arm basilic upper: 0.48 cm. Right arm basilic mid: 0.53 cm. Right arm basilic lower: 0.04 cm. Right forearm basilic upper: 0.08 cm. Right forearm basilic mid: Not visualized cm. Left arm cephalic upper: 0.29 cm. Left arm cephalic mid: 0.32 cm. Left arm cephalic lower: 0.33 cm. Left forearm cephalic upper: 0.32 cm. Left forearm cephalic mid: 0.30 cm. Left forearm cephalic lower: 0.20 cm. Left arm basilic upper: 0.32 cm. Left arm basilic mid: 0.38 cm. Left arm basilic lower: 0.37 cm. Left forearm basilic upper: 0.11 cm. Left forearm basilic mid: 0.08 cm. IMPRESSION: 1. Right forearm basilic vein not visualized in the midportion. 2. Otherwise unremarkable venous system of the upper extremities. No evidence of thrombus or occlu izabela. 2. The diameter of the vessels as indicated above. RPTAT: QQ .Umang Dale MD, Date Time Electronically viewed and signed by .Umang Dale MD, on 11/16/2016 19:47 .R/
--- NOTE | 2016-11-16 19:54 | RADRPT ---
PROCEDURE: US bilateral upper extremity arterial system. CLINICAL INDICATION: Bilateral upper extremity pain and swelling. Preoperative for AV fistula plan kimberly. TECHNIQUE: Multiple longitudinal and transverse images of the bilateral upper extremity arterial t ree was obtained with herrera scale pulsed Doppler, and color Doppler imaging. COMPARISON: None available FINDINGS: The bilateral subclavian artery, axillary artery, brachial artery, radial artery, and ulnar artery a re all normal. There is no thrombus or occlusion. There is no significant stenosis. There is normal triphasic flow throughout the subclavian, axillary, and brachial arteries bilaterall y. Monophasic flow is present in the radial and ulnar arteries bilaterally. Peak systolic velocities are as follows: Right: Proximal Subclavian: 97 cm/sec Mid Subclavian: 85 cm/sec Distal Subclavian: 98 cm/sec Axillary: 87 cm/sec Proximal Brachial: 99 cm/sec Mid Brachial: 101 cm/sec Distal Brachial: 85 cm/sec Proximal Radial: 68 cm/sec Mid Radial: 88 cm/sec Distal Radial: 79 cm/sec Proximal Ulnar: 42 cm/sec Mid Ulnar: 54 cm/sec Distal Ulnar: 47 cm/sec Left: Proximal Subclavian: 138 cm/sec Mid Subclavian: 112 cm/sec Distal Subclavian: 102 cm/sec Axillary: 96 cm/sec Proximal Brachial: 108 cm/sec Mid Brachial: 89 cm/sec Distal Brachial: 110 cm/sec Proximal Radial: 81 cm/sec Mid Radial: 91 cm/sec Distal Radial: 69 cm/sec Proximal Ulnar: 85 cm/sec Mid Ulnar: 73 cm/sec Distal Ulnar: 63 cm/sec IMPRESSION: 1. Monophasic flow bilaterally in the radial and ulnar arteries. 2. Otherwise unremarkable bilateral upper extremity arterial Doppler. RPTAT: QQ .Umang Dale MD, MD Date Time Electronically viewed and signed by .Umang Dale MD, MD on 11/16/2016 19:54 .R/
--- NOTE | 2016-11-16 19:58 | PN ---
Date/Time of Note Date/Time of Note DATE: 11/16/16 TIME: 19:57 Assessment/Plan VTE Prophylaxis VTE Prophylaxis Intervention: SCD's Lines/Catheters IV [facility]ter Type (from [facility] Peripheral IV Urinary Cath still in place: No Assessment/Plan Assessment/Plan IMPRESSION: 1. Acute on CKD, now ESRD 2. Hyperkalemia 3. History of Lumbar spine osteomyelitis and Epidural abscess s/p Decompressive laminectomy and abscess evacuation 06/2016 4. History of Pyelonephritis 5. Hx of Diabetes, but pt has been hypoglycemic 6. Hypothyroidism. 7. 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 8. Benign prostatic hypertrophy. PLAN correct electrolytes appreciate Dr. Brown. Will f/u his recommendation. dialysis catheter has been placed cont current medical mgmt pt is Diabetic, but has been hypoglycemic, likely contributed by worsening kidney function. will monitor closely Subjective 24 Hr Interval Summary Free Text/Dictation dialysis catheter has been placed Exam/Review of Systems Vital Signs Vitals Vital Signs Date Time Temp Pulse Resp B/P Pulse Ox O2 Delivery O2 Flow Rate FiO2 11/16/16 16:13 70 11/16/16 15:13 98.3 22 160/80 98 11/14/16 16:25 Room Air 11/14/16 13:18 11/13/16 23:00 21 Intake and Output 11/15/16 11/15/16 11/16/16 15:00 23:00 07:00 Intake Total 410 ml 1000 ml 150 ml Output Total 2400 ml 400 ml Balance 410 ml -1400 ml -250 ml Exam GENERAL: The patient lying in bed in no acute distress. He is sleepy, but arousable. HEENT: No obvious head deformity. He is legally blind on the right eye. CARDIOVASCULAR: Regular rate and rhythm. No extra sounds. LUNGS: Clear anteriorly. ABDOMEN: Soft. There is some tenderness in the lower abdominal region bilaterally with no guarding, no rebound tenderness, no rigidity. BACK: Scar from from laminectomy . LOWER EXTREMITIES: Trace pitting edema. Results Result Diagram: 11/16/16 0700 11/16/16 1230 Results 24 hrs Laboratory Tests Test 11/15/16 21:03 11/16/16 07:00 11/16/16 07:54 11/16/16 12:30 Bedside Glucose 108 128 White Blood Count 3.7 L Red Blood Count 2.71 L Hemoglobin 8.2 L Hematocrit 24.4 L Mean Corpuscular Volume 90.0 Mean Corpuscular Hemoglobin 30.3 Mean Corpuscular Hemoglobin Concent 33.6 Red Cell Distribution Width 16.2 H Platelet Count 107 L Mean Platelet Volume 10.2 Neutrophils % 80.1 H Lymphocytes % 11.7 L Monocytes % 3.6 Eosinophils % 3.0 Basophils % 0.8 Nucleated Red Blood Cells % 0.0 Neutrophils # 2.9 Lymphocytes # 0.4 L Monocytes # 0.1 L Eosinophils # 0.1 Basophils # 0.0 Nucleated Red Blood Cells # 0.0 Sodium Level 145 H 138 Potassium Level 2.2 #*L 4.4 # Chloride Level 106 # 107 Carbon Dioxide Level 31 # 24 Anion Gap 10 # 11 Blood Urea Nitrogen 15 # 25 H Creatinine 1.13 # 1.77 H Glucose Level 124 81 # Calcium Level 8.0 L 8.1 L Phosphorus Level 2.5 Magnesium Level 2.0 Test 11/16/16 12:46 11/16/16 17:08 Bedside Glucose 82 89 Medications Medications Current Medications Ondansetron HCl (Zofran Inj) 4 mg Q6H PRN IV NAUSEA AND/OR VOMITING; Start at 00:30 Acetaminophen (Tylenol Tab) 650 mg Q6H PRN PO PAIN LEVEL 1-3 OR FEVER; Start at 00:30 Acetaminophen/ Hydrocodone Bitart ([place] (5/325)) 1 tab Q6H PRN PO MODERATE PAIN LEVEL 4-6; Start 11/14/16 at 00:30 Morphine Sulfate (morphine) 2 mg Q4H PRN IV SEVERE PAIN LEVEL 7-10 Last administered on 11/14/16 18:42; Admin Dose 2 MG; Start 11/14/16 at 00:30 Docusate Sodium (Colace) 100 mg Q12H PRN PO CONSTIPATION; Start 11/14/16 at 00: 30 Alprazolam (Xanax) 0.25 mg Q8H PRN PO ANXIETY Last administered on 11/16/16 06 :07; Admin Dose 0.25 MG; Start 11/14/16 at 00:30 Bisacodyl (Dulcolax) 10 mg DAILY PRN PO CONSTIPATION; Start 11/14/16 at 00:30 Docusate Sodium (Colace) 200 mg DAILY PO Last administered on 11/16/16 09:24; Admin Dose 200 MG; Start 11/14/16 at 09:00 Finasteride (Proscar) 5 mg DAILY PO Last administered on 11/16/16 09:25; Admin Dose 5 MG; Start 11/14/16 at 09:00 Hydralazine HCl (Apresoline) 50 mg TID PO Last administered on 11/14/16 21:35 ; Admin Dose 50 MG; Start 11/14/16 at 09:00; Status Future Hold Levothyroxine Sodium (Synthroid) 75 mcg DAILY@06 PO Last administered on 06:07; Admin Dose 75 MCG; Start 11/14/16 at 06:00 Magnesium Hydroxide (Milk Of Mag) 30 ml DAILY PO Last administered on 09:23; Admin Dose 30 ML; Start 11/14/16 at 09:00 Morphine Sulfate (Ms Contin (Er)) 15 mg Q12 PO Last administered on 11/16/16 09:24; Admin Dose 15 MG; Start 11/14/16 at 09:00 Pantoprazole (Protonix Tab) 40 mg DAILY@06 PO Last administered on 11/16/16 06 :07; Admin Dose 40 MG; Start 11/14/16 at 06:00 Simethicone (Mylicon) 80 mg Q6H PRN PO DISTENSION/GAS/BLOATING; Start 11/14/16 at 00:30 Tamsulosin HCl (Flomax) 0.4 mg HS PO Last administered on 11/15/16 21:06; Admin Dose 0.4 MG; Start 11/14/16 at 21:00 Nifedipine (Procardia Xl) 60 mg BID PO Last administered on 11/16/16 09:24; Admin Dose 60 MG; Start 11/14/16 at 09:00 Miscellaneous Information 1 ea NOTE XX ; Start 11/14/16 at 01:00 Glucose (Glutose) 15 gm Q15M PRN PO DECREASED GLUCOSE; Start 11/14/16 at 01:00 Glucose (Glutose) 22.5 gm Q15M PRN PO DECREASED GLUCOSE; Start 11/14/16 at 01: 00 Dextrose (D50w Syringe) 25 ml Q15M PRN IV DECREASED GLUCOSE Last administered on 11/14/16 18:51; Admin Dose 25 ML; Start 11/14/16 at 01:00 Dextrose (D50w Syringe) 50 ml Q15M PRN IV DECREASED GLUCOSE; Start 11/14/16 at 01:00 Glucagon (Glucagen) 1 mg Q15M PRN IM DECREASED GLUCOSE; Start 11/14/16 at 01:00 Glucose (Glutose) 15 gm Q15M PRN BUCCAL DECREASED GLUCOSE; Start 11/14/16 at 01 :00 Diagnostic Test (Pha) (Accu-Chek) 1 ea 02 XX ; Start 11/15/16 at 02:00 Hydralazine HCl (Apresoline) 50 mg TID PO Last administered on 11/16/16 12:51 ; Admin Dose 50 MG; Start 11/16/16 at 09:00 GIOVANNI ODELL MD Nov 16, 2016 19:58
[2016-11-16] MEDS: TAMSULOSIN (SR) 0.4 MG CAP PO SCH (22:22)
[2016-11-17] VITALS (20 sets, daily range): BP systolic 114–189; BP diastolic 51–105; PULSE 52–63; RESP 17–19
[2016-11-17] MEDS: ACCU-CHEK XX SCH (02:00)
[2016-11-17] MEDS: LEVOTHYROXINE 75 MCG TAB PO SCH (06:06)
[2016-11-17] MEDS: PANTOPRAZOLE (EC) 40 MG TAB PO SCH (06:06)
--- NOTE | 2016-11-17 07:55 | PN ---
DATE: 11/16/2016 SUBJECTIVE: The patient had an urgent dialysis catheter placed by Dr. Irizarry. Greatly appreciate h is help with placing the catheter. The patient was dialyzed yesterday, tolerated it well, was dialy zed again this morning. No other acute events noted. No hemoptysis, hematemesis, or hematochezia. OBJECTIVE: VITAL SIGNS: Blood pressure 130/76, respirations 18, pulse 64, temperature 98.1. HEENT: Head is normocephalic. Pupils are reactive to light. NECK: Supple. HEART: Regular rate. LUNGS: Show diminished breath sounds at the base. ABDOMEN: Soft, nontender to palpation. No rebound or guarding. EXTREMITIES: Negative for clubbing, cyanosis. No edema. DERMATOLOGIC: No rashes. MUSCULOSKELETAL: No joint effusions. NEUROLOGIC: No change in exam. MEDICATIONS: The patient's medications have been reviewed. LABORATORY DATA: Currently pending. White count this morning was 3.7, hemoglobin 8.2, hematocrit 2 4.4, platelet count 107. BMP is pending. ASSESSMENT AND PLAN: 1. Nonoliguric acute kidney injury on top of chronic kidney disease stage V, now end-stage renal di sease. The patient had urgent hemodialysis yesterday and this morning. Will continue dialysis, ant icipate intermittently 3 to 4 times weekly. The patient currently has a Johnathan catheter. We will place the Perm-A-Cath in the next 1 to 2 days. We will also have vascular surgery evaluation for AV fistula placement. 2. Hyperkalemia secondary to chronic kidney disease and end-stage renal disease. The patient was d ialyzed on a 2K bath. We will follow up renal panel. Continue renal diet. 3. ____ acute kidney injury, improved. Continue hemodialysis. 4. Mineral bone disorder. Monitor calcium and phosphorus levels. 5. Volume overload secondary to acute kidney injury and congestive heart failure. The patient is i mproving. Will continue ultrafiltration dialysis. 6. Acute respiratory failure secondary to congestive heart failure. Continue ultrafiltration with dialysis. 7. History of BPH. Continue medical management. DICTATION ENDS HERE, INCOMPLETE Dictated By: NAE SINHA/ERICKA Conf#: [id number] DID#: [id number]
[2016-11-17] MEDS: INSULIN ASPART [NOVOLOG] 3 ML PEN SC SCH ×4 (08:00→20:03)
[2016-11-17] MEDS: SEVELAMER 800 MG TAB PO SCH ×3 (08:00→17:45)
--- NOTE | 2016-11-17 08:15 | PN ---
DATE: 11/15/2016 SUBJECTIVE: The patient is currently noted to be hypotensive. The patient is pending Johnathan yordy ter placement by either vascular surgery or interventional radiology. The patient is complaining of general anxiety. Denies any chest pain, fevers, chills, nausea or vomiting. OBJECTIVE: VITAL SIGNS: Blood pressure 88/53, respirations 16, pulse 53, temperature 97.6. HEENT: Head is normocephalic. NECK: Supple. HEART: Regular rate. LUNGS: Showed diminished breath sounds at the base. ABDOMEN: Soft, nontender to palpation. No rebound or guarding. EXTREMITIES: Negative for clubbing or cyanosis. Trace edema. DERMATOLOGIC: No rashes. MUSCULOSKELETAL: Have no joint effusion. NEUROLOGIC: No change. MEDICATIONS: The patient's medications have been reviewed. LABORATORY DATA: Shows sodium 139, potassium 3.4, chloride 119, bicarbonate 14, BUN 44, creatinine 3.15, glucose 63. White count 3.1, hemoglobin 7.8, hematocrit 24.4, platelet count is 108. ASSESSMENT AND PLAN: Nonoliguric acute kidney injury on top of chronic kidney disease, with a previ ous baseline creatinine around 2.5 to 3 mg/dL. Etiology of current acute kidney injury is likely se condary to ATN and progression of underlying CKD. The patient is currently Dictated By: NAE SINHA/ERICKA Conf#: [id number] DID#: [id number]
[2016-11-17] MEDS: DEXTROSE 50% 50 ML SYRINGE IV PRN ×2 (08:24→17:41)
[2016-11-17] MEDS: MAGNESIUM HYDROXIDE 30ML CUP PO SCH ×2 (08:45→17:46)
[2016-11-17] MEDS: DOCUSATE SODIUM 100 MG CAP PO SCH ×2 (08:45→17:46)
[2016-11-17] MEDS: morphine (ER) 15 MG TAB PO SCH ×2 (08:46→20:01)
[2016-11-17] MEDS: FINASTERIDE 5 MG TAB PO SCH ×2 (08:47→17:47)
[2016-11-17] MEDS: NIFEdipine (XL) 60 MG TAB PO SCH ×2 (08:47→20:02)
[2016-11-17] MEDS ORDERED: DEXTROSE 5%-0.45% NACL 1,000 ML IV SCH (09:30)
[2016-11-17 10:19] LABS: ADD SCAN DIFF NO
[2016-11-17 10:23] LABS: HEMATOCRIT 24.8 % (42.0-52.0); HEMOGLOBIN 8.4 g/dl (14.0-18.0); MEAN CORPUSCULAR HEMOGLOBIN 30.2 pg (29.0-33.0); MEAN CORPUSCULAR HGB CONC 33.9 g/dl (32.0-37.0); MEAN CORPUSCULAR VOLUME 89.2 fl (82.0-101.0); RED BLOOD COUNT 2.78 10^6/ul (4.70-6.10); WHITE BLOOD COUNT 2.8 10^3/ul (4.8-10.8)
[2016-11-17 10:24] LABS: BASOPHILS % 1.1 % (0.0-2.0); EOSINOPHILS # 0.1 10^3/ul (0.0-0.5); EOSINOPHILS % 2.1 % (0.0-7.0); LYMPHOCYTES # 0.8 10^3/ul (0.8-2.9); MEAN PLATELET VOLUME 9.8 fl (7.4-10.4); MONOCYTE # 0.3 10^3/ul (0.3-0.9); MONOCYTES % 9.5 % (0.0-11.0); NEUTROPHIL # 1.6 10^3/ul (1.6-7.5); NEUTROPHILS % 57.6 % (39.0-77.0); PLATELET COUNT 107 10^3/UL (140-415); RED CELL DISTRIBUTION WIDTH 15.8 % (11.5-14.5)
[2016-11-17 10:56] LABS: CREATININE 1.9 mg/dl (0.61-1.24); MAGNESIUM 2.5 mg/dl (1.7-2.5); POTASSIUM 4.9 mmol/L (3.5-5.1)
[2016-11-17] MEDS ORDERED: MIDAZOLAM 1 MG/ML 2 ML INJ ONE (15:14)
[2016-11-17] MEDS ORDERED: LIDOCAINE 1% (MDV) 20 ML INJ ONE (15:14)
[2016-11-17] MEDS ORDERED: HEPARIN 1000 UNITS/ML 10 ML INJ ONE (15:14)
[2016-11-17] MEDS ORDERED: SOD CHLORIDE 0.9% 500 ML ONE (15:15)
[2016-11-17] MEDS ORDERED: FENTAnyl 50 MCG/ML VIAL ONE (15:15)
--- NOTE | 2016-11-17 17:09 | RADRPT ---
PROCEDURE: PLACEMENT OF RIGHT INTERNAL JUGULAR VENOUS TUNNELED DIALYSIS CATHETER. CLINICAL INDICATION: Renal failure. TECHNIQUE: Prior to the procedure, informed consent was obtained. Risks including bleeding, infection, and pneu mothorax were explained to the patient and/or the patient's family. The patient and/or the patient's family understood and was willing to proceed. A procedural pause was performed. The patient's name, date of , and procedure to be performed were verified. The central line was inserted with all elements of maximal sterile barrier technique. All of the following were used: head covering, facial mask, sterile gown, sterile gloves, a large sterile sheet, hand hygiene, and 2% chlorhexidine for cutaneous antisepsis. The right neck and anterior/superior chest wall was prepped and draped in usu al sterile fashion. Limited sonography of the right neck was then performed. Noted is a patent right internal jugular ve in. Ultrasound images were recorded and stored in the patient's medical record. Following the local injection of Xylocaine, the right internal jugular vein was punctured under sono graphic guidance with a 20-gauge needle through which a 0.018 inch floppy tip guidewire was advanced into the superior vena cava. The tract was dilated to 5 Estonian and the wire was then replaced with a 0.035 in Amplatz guidewire. A tunnel was then created from the anterior lateral aspect of the sup erior right chest wall to the puncture site in the neck and the catheter was pulled through the trac t. Serial dilatation was then performed and a 16 Estonian peel away sheath was introduced. The 14.5 Estonian 23cm tip to cuff Angiodynamics BioFlo DuraMax dialysis catheter was advanced through the 16 F rench peel-away sheath. The tip of the catheter was confirmed in position within the right atrium. T he peel-away sheath was removed. The 2 ports were each flushed with 2.3 ml of 1:1000 heparin. The c atheter was secured to the skin with 2-0 silk. The wound in the neck was closed with 4-0 Vicryl suture using subcuticular running technique. The site was dressed. The patient tolerated the proce dure well. COMPARISON: None. FINDINGS: Final radiographic images demonstrate the tip of the catheter in the upper right atrium. A total of 0.2 minutes of fluoroscopy time was used. The ultrasound images demonstrate the needle entering th e jugular vein. Ultrasound images were recorded and stored in the patient's medical record. 5 image s of the chest were obtained with image intensifier. IMPRESSION: 1. Percutaneous insertion of right internal jugular dialysis tunneled dialysis catheter under fluoro scopic and sonographic guidance. RPTAT: QQ .Umang Dale MD, MD Date Time Electronically viewed and signed by .Umang Dale MD, MD on 11/17/2016 17:08 .R/
--- NOTE | 2016-11-17 17:14 | RADRPT ---
PROCEDURE: Ultrasound guidance for placement of needle in right internal jugular vein. CLINICAL INDICATION: Venous access. TECHNIQUE: Prior to the procedure, informed consent was obtained. Risks including bleeding, infection, and pneu mothorax were explained to the patient. The patient understood and was willing to proceed. A procedu ral pause was performed. The patient's name, date of , and procedure to be performed were verif ied. The central line was inserted with all elements of maximal sterile barrier technique. All of th e following were used: head covering, facial mask, sterile gown, sterile gloves, a large sterile she et, hand hygiene, and 2% chlorhexidine for cutaneous antisepsis. The right neck and anterior/super ior chest wall was prepped and draped in usual sterile fashion. Limited sonography of the right neck was then performed. Noted is a patent right internal jugular ve in. Ultrasound images were recorded and stored in the patient's medical record. Following the local injection of Xylocaine, the right internal jugular vein was punctured under sono graphic guidance with a 20-gauge needle through which a 0.018 inch floppy tip guidewire was advanced into the superior vena cava. The patient tolerated the procedure well. The remainder of the proce dure was performed and dictated under separate cover. COMPARISON: None. FINDINGS: The ultrasound images demonstrate a patent right internal jugular vein. The subsequent images demon strate the needle entering the right internal jugular vein. IMPRESSION: 1. Ultrasound guidance for a needle placement in right internal jugular vein. RPTAT: QQ .Umang Dale MD, Date Time Electronically viewed and signed by .Umang Dale MD, on 11/17/2016 17:14 .R/
[2016-11-17] MEDS: morphine 2 MG INJ IV PRN (17:50)
--- NOTE | 2016-11-17 18:11 | PN ---
Date/Time of Note Date/Time of Note DATE: 11/17/16 TIME: 18:09 Assessment/Plan VTE Prophylaxis VTE Prophylaxis Intervention: SCD's Lines/Catheters IV Catheter Type (from Nrs): [place] Urinary Cath still in place: No Assessment/Plan Assessment/Plan 1. Acute on CKD, now ESRD 2. Hyperkalemia 3. History of Lumbar spine osteomyelitis and Epidural abscess s/p Decompressive laminectomy and abscess evacuation 06/2016 4. History of Pyelonephritis 5. Hx of Diabetes, but pt has been hypoglycemic 6. Hypothyroidism. 7. 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 8. Benign prostatic hypertrophy. PLAN Permacath placement today BP stable afebrile, Conitnue current care HD tomorrow Outpatient HD placement as per Nephrology d.c planning tomorr vs thursday Subjective 24 Hr Interval Summary Free Text/Dictation plan for permacath today, HD ordered for tomorrow, BP stable,afebrile Exam/Review of Systems Vital Signs Vitals Vital Signs Date Time Temp Pulse Resp B/P Pulse Ox O2 Delivery O2 Flow Rate FiO2 11/17/16 16:53 Nasal Cannula 2 11/17/16 16:15 98.0 58 19 189/105 100 11/13/16 23:00 21 Intake and Output 11/16/16 11/16/16 11/17/16 15:00 23:00 07:00 Intake Total 400 ml 660 ml 200 ml Output Total 1400 ml 530 ml 400 ml Balance -1000 ml 130 ml -200 ml Results Result Diagram: 11/17/16 0930 11/17/16 0930 Results 24 hrs Laboratory Tests Test 11/16/16 22:26 11/17/16 02:35 11/17/16 08:09 11/17/16 08:42 Bedside Glucose 81 81 63 L 114 Test 11/17/16 09:03 11/17/16 09:30 11/17/16 11:46 11/17/16 17:36 Bedside Glucose 100 73 63 L White Blood Count 2.8 #L Red Blood Count 2.78 L Hemoglobin 8.4 L Hematocrit 24.8 L Mean Corpuscular Volume 89.2 Mean Corpuscular Hemoglobin 30.2 Mean Corpuscular Hemoglobin Concent 33.9 Red Cell Distribution Width 15.8 H Platelet Count 107 L Mean Platelet Volume 9.8 Neutrophils % 57.6 Lymphocytes % 29.0 Monocytes % 9.5 Eosinophils % 2.1 Basophils % 1.1 Nucleated Red Blood Cells % 0.0 Neutrophils # 1.6 Lymphocytes # 0.8 Monocytes # 0.3 Eosinophils # 0.1 Basophils # 0.0 Nucleated Red Blood Cells # 0.0 Sodium Level 145 H Potassium Level 4.9 Chloride Level 113 H Carbon Dioxide Level 24 Anion Gap 13 Blood Urea Nitrogen 30 H Creatinine 1.90 H Glucose Level 86 Calcium Level 8.0 L Phosphorus Level 4.0 Magnesium Level 2.5 Test 11/17/16 18:01 Bedside Glucose 128 Medications Medications Current Medications Ondansetron HCl (Zofran Inj) 4 mg Q6H PRN IV NAUSEA AND/OR VOMITING; Start at 00:30 Acetaminophen (Tylenol Tab) 650 mg Q6H PRN PO PAIN LEVEL 1-3 OR FEVER; Start at 00:30 Acetaminophen/ Hydrocodone Bitart ([place] (5/325)) 1 tab Q6H PRN PO MODERATE PAIN LEVEL 4-6; Start 11/14/16 at 00:30 Morphine Sulfate (morphine) 2 mg Q4H PRN IV SEVERE PAIN LEVEL 7-10 Last administered on 11/17/16 17:50; Admin Dose 2 MG; Start 11/14/16 at 00:30 Docusate Sodium (Colace) 100 mg Q12H PRN PO CONSTIPATION; Start 11/14/16 at 00: 30 Alprazolam (Xanax) 0.25 mg Q8H PRN PO ANXIETY Last administered on 11/16/16 06 :07; Admin Dose 0.25 MG; Start 11/14/16 at 00:30 Bisacodyl (Dulcolax) 10 mg DAILY PRN PO CONSTIPATION; Start 11/14/16 at 00:30 Docusate Sodium (Colace) 200 mg DAILY PO Last administered on 11/17/16 17:46; Admin Dose 200 MG; Start 11/14/16 at 09:00 Finasteride (Proscar) 5 mg DAILY PO Last administered on 11/17/16 17:47; Admin Dose 5 MG; Start 11/14/16 at 09:00 Hydralazine HCl (Apresoline) 50 mg TID PO Last administered on 11/14/16 21:35 ; Admin Dose 50 MG; Start 11/14/16 at 09:00; Status Future Hold Levothyroxine Sodium (Synthroid) 75 mcg DAILY@06 PO Last administered on 06:06; Admin Dose 75 MCG; Start 11/14/16 at 06:00 Magnesium Hydroxide (Milk Of Mag) 30 ml DAILY PO Last administered on 17:46; Admin Dose 30 ML; Start 11/14/16 at 09:00 Morphine Sulfate (Ms Contin (Er)) 15 mg Q12 PO Last administered on 11/16/16 22:21; Admin Dose 15 MG; Start 11/14/16 at 09:00 Pantoprazole (Protonix Tab) 40 mg DAILY@06 PO Last administered on 11/17/16 06 :06; Admin Dose 40 MG; Start 11/14/16 at 06:00 Simethicone (Mylicon) 80 mg Q6H PRN PO DISTENSION/GAS/BLOATING; Start 11/14/16 at 00:30 Tamsulosin HCl (Flomax) 0.4 mg HS PO Last administered on 11/16/16 22:22; Admin Dose 0.4 MG; Start 11/14/16 at 21:00 Nifedipine (Procardia Xl) 60 mg BID PO Last administered on 11/16/16 22:22; Admin Dose 60 MG; Start 11/14/16 at 09:00 Miscellaneous Information 1 ea NOTE XX ; Start 11/14/16 at 01:00 Glucose (Glutose) 15 gm Q15M PRN PO DECREASED GLUCOSE; Start 11/14/16 at 01:00 Glucose (Glutose) 22.5 gm Q15M PRN PO DECREASED GLUCOSE; Start 11/14/16 at 01: 00 Dextrose (D50w Syringe) 25 ml Q15M PRN IV DECREASED GLUCOSE Last administered on 11/17/16 17:41; Admin Dose 25 ML; Start 11/14/16 at 01:00 Dextrose (D50w Syringe) 50 ml Q15M PRN IV DECREASED GLUCOSE; Start 11/14/16 at 01:00 Glucagon (Glucagen) 1 mg Q15M PRN IM DECREASED GLUCOSE; Start 11/14/16 at 01:00 Glucose (Glutose) 15 gm Q15M PRN BUCCAL DECREASED GLUCOSE; Start 11/14/16 at 01 :00 Diagnostic Test (Pha) (Accu-Chek) 1 ea 02 XX Last administered on 11/17/16 02: 00; Admin Dose 1 EA; Start 11/15/16 at 02:00 Hydralazine HCl 50 mg 50 mg TID PO Last administered on 11/16/16 22:22; Admin Dose 50 MG; Start 11/16/16 at 09:00 Dextrose/Sodium Chloride (D5-1/2ns) 1,000 ml @ 50 mls/hr Q20H IV Last administered on 11/17/16 09:34; Admin Dose 50 MLS/HR; Start 11/17/16 at 09:30 BHUMI CONRAD MD Nov 17, 2016 18:10
[2016-11-17] MEDS: ALPRAZOLAM 0.25 MG TAB PO PRN (18:29)
[2016-11-17] MEDS: HYDROCODONE/APAP (5/325) TAB PO PRN (20:02)
[2016-11-17] MEDS: DEXTROSE 5%-0.45% NACL 1,000 ML IV SCH (20:08)
[2016-11-17] MEDS: TAMSULOSIN (SR) 0.4 MG CAP PO SCH (20:08)
[2016-11-18] VITALS (36 sets, daily range): BP systolic 115–190; BP diastolic 43–93; PULSE 55–71; RESP 17–20
[2016-11-18] MEDS: ACCU-CHEK XX SCH (02:00)
[2016-11-18] MEDS: PANTOPRAZOLE (EC) 40 MG TAB PO SCH (06:16)
[2016-11-18] MEDS: LEVOTHYROXINE 75 MCG TAB PO SCH (06:16)
[2016-11-18] MEDS ORDERED: LIDOCAINE 2% (SDV) 5 ML INJ ONE (06:34)
[2016-11-18] MEDS ORDERED: PROPOFOL 20 ML ONE (06:34)
[2016-11-18] MEDS ORDERED: DEXAMETHASONE 4 MG/ML 1 ML INJ ONE (06:34)
[2016-11-18] MEDS ORDERED: GLYCOPYRROLATE 0.4 MG INJ ONE (06:34)
[2016-11-18] MEDS ORDERED: FENTAnyl 50 MCG/ML VIAL ONE ×2 (06:34→09:43)
[2016-11-18] MEDS ORDERED: ROCURONIUM 50 MG INJ ONE (06:34)
[2016-11-18] MEDS ORDERED: MIDAZOLAM 1 MG/ML 2 ML INJ ONE (06:34)
[2016-11-18] MEDS ORDERED: NEOSTIGMINE 3 MG/3 ML SYRINGE ONE (06:34)
[2016-11-18] MEDS ORDERED: ONDANSETRON 4 MG INJ ONE (06:35)
[2016-11-18] MEDS ORDERED: CEFAZOLIN 1 GM INJ ONE (06:36)
[2016-11-18] MEDS ORDERED: SUCCINYLCHOLINE CHLORIDE 100 MG/5 ML SYG IV ONE (06:37)
[2016-11-18] MEDS ORDERED: LIDOCAINE 1% (STERILE-PAK) 30 ML INJ ONE (06:52)
[2016-11-18] MEDS ORDERED: THROMBIN 5000 UNIT VIAL ONE (06:52)
[2016-11-18] MEDS ORDERED: GELATIN SIZE 100 SPONGE ONE (06:52)
[2016-11-18] MEDS ORDERED: HEPARIN 1000 UNITS/ML 10 ML INJ ONE ×2 (06:52→09:08)
[2016-11-18] MEDS ORDERED: OXYCODONE/ACETAMINOPHEN (5/325) TAB PO PRN ×2 (07:00)
[2016-11-18] MEDS ORDERED: FENTAnyl 50 MCG/ML VIAL IV PRN ×2 (07:00)
[2016-11-18] MEDS ORDERED: ONDANSETRON 4 MG INJ IV PRN (07:00)
[2016-11-18] MEDS ORDERED: HYDROmorphONE (0.2 MG/ML) 10ML SYG IV PRN ×3 (07:00)
[2016-11-18] MEDS ORDERED: LABETALOL HCL 20MG INJ IV PRN (07:00)
[2016-11-18] MEDS ORDERED: hydrALAzine 20 MG INJ IV PRN (07:00)
[2016-11-18] MEDS ORDERED: ATROPINE 1 MG/10 ML SYRINGE IV PRN (07:00)
[2016-11-18] MEDS ORDERED: MEPERIDINE 25 MG INJ IV PRN (07:00)
[2016-11-18] MEDS ORDERED: LIDOCAINE 2% JELLY 5 ML ONE (07:00)
[2016-11-18] MEDS ORDERED: EPHEDrine SULFATE 50 MG/5 ML SYG IV PRN (07:00)
[2016-11-18] MEDS ORDERED: MIDAZOLAM 1 MG/ML 2 ML INJ IV PRN (07:00)
[2016-11-18] MEDS ORDERED: morphine (1 MG/ML) 10ML SYRINGE IV PRN ×3 (07:00)
[2016-11-18] MEDS ORDERED: DIPHENHYDRAMINE 50 MG INJ IV PRN (07:00)
[2016-11-18] MEDS ORDERED: LIDOCAINE 2%/EPI 30 ML INJ ONE (07:39)
[2016-11-18] MEDS ORDERED: ROPIVACAINE 0.5 % 30 ML VIAL ONE (07:39)
--- NOTE | 2016-11-18 07:52 | HPN ---
Date/Time of Note Date/Time of Note DATE: 11/18/16 TIME: 07:51 Interval H&P Admission Note Pt. seen H&P reviewed: No system changes SIMBA CATHERINE MD Nov 18, 2016 07:51
[2016-11-18] MEDS: INSULIN ASPART [NOVOLOG] 3 ML PEN SC SCH ×4 (08:00→20:42)
[2016-11-18] MEDS: SEVELAMER 800 MG TAB PO SCH ×3 (08:00→17:46)
[2016-11-18] MEDS: FINASTERIDE 5 MG TAB PO SCH (09:00)
[2016-11-18] MEDS: NIFEdipine (XL) 60 MG TAB PO SCH ×2 (09:00→20:42)
[2016-11-18] MEDS: morphine (ER) 15 MG TAB PO SCH ×2 (09:00→20:41)
[2016-11-18] MEDS: MAGNESIUM HYDROXIDE 30ML CUP PO SCH (09:00)
[2016-11-18] MEDS: DOCUSATE SODIUM 100 MG CAP PO SCH (09:00)
[2016-11-18] MEDS ORDERED: EPOETIN 4000 UNITS/1 ML INJ (ESRD) SC SCH (09:30)
[2016-11-18] MEDS ORDERED: HYDROmorphONE 1 MG/ML SYG IM STA (10:53)
--- NOTE | 2016-11-18 10:55 | OPR ---
Date/Time of Note Date/Time of Note DATE: 11/18/16 TIME: 10:53 Operative Report Free Text/Dictation DATE OF OPERATION: 11/18/2016 SURGEON: Dex Catherine MD PREOPERATIVE DIAGNOSIS: ESRD POSTOPERATIVE DIAGNOSIS: ESRD PROCEDURE: Creation of a left arm brachiocephalic arteriovenous fistula. ANESTHESIA: Regional Block and Local COMPLICATIONS: None. ESTIMATED BLOOD LOSS: Minimal. TRANSFUSIONS: None SPECIMEN: None. INDICATIONS: This is a 56-year- male with a history of impending end-stage renal artery disease that progressed. The risks and benefits of the procedure were discussed with the patient and not limited to , VA, pneumonia, stroke , infection, thrombosis of graft and arteriovenous fistula, nerve injury, limb loss, revisions of AVF, steal and she elected to undergo surgical intervention. DESCRIPTION: The patient was placed in supine position on the operating room table. The arms were placed at 80 degrees. The normal bony prominences were padded. The anesthesia team had placed the appropriate lines and anesthesia was induced. Time out performed and the appropriate site was marked and confirmed. The patient's upper extremity prepped and draped in the usual standard sterile fashion. Preoperative antibiotics were administered prior to the skin incision since the patient already had been on antibiotics. A 6 cm transverse skin incision was then performed below the antecubital fossa. The cephalic vein was identified and dissected for a segment of nearly 5 cm. Dissection was then carried as distally as possible through that incision. Attention was then directed to the brachial artery. The tendinous aponeurosis of the biceps muscle was then incised. Location of the brachial artery was then identified by palpation. The soft tissue over the brachial artery was then incised, and the brachial artery was then confirmed. The patient was given 2500 units of heparin intravenously. The cephalic vein was then ligated at its most distal end. Yasargil clamps were then applied on the brachial artery, and a 6 mm incision in the anterior wall of the brachial artery was then performed. The cephalic vein was then gently curved and allowed to lay over the arteriotomy. The end of the vein was spatulated to match the side of the arteriotomy. The anastomosis was then performed using a running 6-0 Prolene suture. At the completion of the suture line the brachial artery was forward-flushed and then allowed to backbleed. The cephalic vein was also allowed to backbleed. The anastomosis was irrigated with heparinized saline solution. The suture was then tied and the suture line evaluated for hemostasis, which was adequate. There was evidence of excellent thrill in the cephalic vein. There was a strong pulse palpable in the brachial, radial, and ulnar arteries at the wrist. There was no evidence of any kinks. The subcutaneous tissue was then closed with a 3-0 Vicryl running suture and the skin closed with kelly. There was evidence of excellent thrill in the cephalic vein after the wound closure. The patient tolerated the procedure well, was taken to the postanesthesia care unit in stable condition. All instruments, catheters, sponge, and needles were corrected x2. DEX CATHERINE MD Nov 18, 2016 10:55
[2016-11-18] MEDS ORDERED: DESMOPRESSIN 12 MCG in SOD CHLORIDE 0.9% 50 ML IV ONE (11:00)
[2016-11-18] MEDS ORDERED: HYDROmorphONE 1 MG/ML SYG IV STA (11:06)
[2016-11-18] MEDS ORDERED: hydrALAzine 20 MG INJ ONE (11:08)
[2016-11-18] MEDS ORDERED: hydrALAzine 20 MG INJ IV ONE (11:30)
--- NOTE | 2016-11-18 12:12 | PN ---
Date/Time of Note Date/Time of Note DATE: 11/18/16 TIME: 12:10 Assessment/Plan VTE Prophylaxis VTE Prophylaxis Intervention: SCD's Lines/Catheters IV Catheter Type (from Nrs): Saline Lock Urinary Cath still in place: No Assessment/Plan Assessment/Plan 1. Acute on CKD, now ESRD 2. Hyperkalemia 3. History of Lumbar spine osteomyelitis and Epidural abscess s/p Decompressive laminectomy and abscess evacuation 06/2016 4. History of Pyelonephritis 5. Hx of Diabetes, but pt has been hypoglycemic 6. Hypothyroidism. 7. 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 8. Benign prostatic hypertrophy. PLAN s/p permacath, Plan for HD through permcath AVF planned for today Outpatient HD placement as per Nephrology d.c planning tomorrow once HD placement is confirmed appreciate nephrology and Vascular surgery help Subjective 24 Hr Interval Summary Free Text/Dictation plan for HD today through Permacath, Plan for AVF today, BP stable Exam/Review of Systems Vital Signs Vitals Vital Signs Date Time Temp Pulse Resp B/P Pulse Ox O2 Delivery O2 Flow Rate FiO2 11/18/16 10:44 98.2 60 18 148/81 Room Air 11/18/16 07:50 98 11/17/16 22:54 2 Intake and Output 11/17/16 11/17/16 11/18/16 15:00 23:00 07:00 Intake Total 650 ml 850 ml Output Total 200 ml 850 ml Balance 450 ml 0 ml Exam HEENT: Head is normocephalic. Pupils are reactive to light. NECK: Supple.no JVD, no LAD HEART: S1 S2 RRR no murmur LUNGS: Show diminished breath sounds at the base. ABDOMEN: Soft, nontender to palpation. No rebound or guarding. EXTREMITIES: Negative for clubbing, cyanosis. No edema. DERMATOLOGIC: No rashes. MUSCULOSKELETAL: No joint effusions. NEUROLOGIC: No change in exam. Results Result Diagram: 11/17/16 0930 11/18/16 0700 Results 24 hrs Laboratory Tests Test 11/17/16 17:36 11/17/16 18:01 11/17/16 18:20 11/17/16 19:55 Bedside Glucose 63 L 128 122 111 Test 11/18/16 06:14 11/18/16 07:00 11/18/16 07:47 Bedside Glucose 78 72 Potassium Level 5.1 Medications Medications Current Medications Ondansetron HCl (Zofran Inj) 4 mg Q6H PRN IV NAUSEA AND/OR VOMITING; Start at 00:30 Acetaminophen (Tylenol Tab) 650 mg Q6H PRN PO PAIN LEVEL 1-3 OR FEVER; Start at 00:30 Acetaminophen/ Hydrocodone Bitart ([place] (5/325)) 1 tab Q6H PRN PO MODERATE PAIN LEVEL 4-6 Last administered on 11/17/16 20:02; Admin Dose 1 TAB; Start at 00:30 Morphine Sulfate (morphine) 2 mg Q4H PRN IV SEVERE PAIN LEVEL 7-10 Last administered on 11/17/16 17:50; Admin Dose 2 MG; Start 11/14/16 at 00:30 Docusate Sodium (Colace) 100 mg Q12H PRN PO CONSTIPATION; Start 11/14/16 at 00: 30 Alprazolam (Xanax) 0.25 mg Q8H PRN PO ANXIETY Last administered on 11/17/16 18 :29; Admin Dose 0.25 MG; Start 11/14/16 at 00:30 Bisacodyl (Dulcolax) 10 mg DAILY PRN PO CONSTIPATION; Start 11/14/16 at 00:30 Docusate Sodium (Colace) 200 mg DAILY PO Last administered on 11/17/16 17:46; Admin Dose 200 MG; Start 11/14/16 at 09:00 Finasteride (Proscar) 5 mg DAILY PO Last administered on 11/17/16 17:47; Admin Dose 5 MG; Start 11/14/16 at 09:00 Hydralazine HCl (Apresoline) 50 mg TID PO Last administered on 11/14/16 21:35 ; Admin Dose 50 MG; Start 11/14/16 at 09:00; Status Future Hold Levothyroxine Sodium (Synthroid) 75 mcg DAILY@06 PO Last administered on 06:16; Admin Dose 75 MCG; Start 11/14/16 at 06:00 Magnesium Hydroxide (Milk Of Mag) 30 ml DAILY PO Last administered on 17:46; Admin Dose 30 ML; Start 11/14/16 at 09:00 Morphine Sulfate (Ms Contin (Er)) 15 mg Q12 PO Last administered on 11/17/16 20:01; Admin Dose 15 MG; Start 11/14/16 at 09:00 Pantoprazole (Protonix Tab) 40 mg DAILY@06 PO Last administered on 11/18/16 06 :16; Admin Dose 40 MG; Start 11/14/16 at 06:00 Simethicone (Mylicon) 80 mg Q6H PRN PO DISTENSION/GAS/BLOATING; Start 11/14/16 at 00:30 Tamsulosin HCl (Flomax) 0.4 mg HS PO Last administered on 11/17/16 20:08; Admin Dose 0.4 MG; Start 11/14/16 at 21:00 Nifedipine (Procardia Xl) 60 mg BID PO Last administered on 11/17/16 20:02; Admin Dose 60 MG; Start 11/14/16 at 09:00 Miscellaneous Information 1 ea NOTE XX ; Start 11/14/16 at 01:00 Glucose (Glutose) 15 gm Q15M PRN PO DECREASED GLUCOSE; Start 11/14/16 at 01:00 Glucose (Glutose) 22.5 gm Q15M PRN PO DECREASED GLUCOSE; Start 11/14/16 at 01: 00 Dextrose (D50w Syringe) 25 ml Q15M PRN IV DECREASED GLUCOSE Last administered on 11/17/16 17:41; Admin Dose 25 ML; Start 11/14/16 at 01:00 Dextrose (D50w Syringe) 50 ml Q15M PRN IV DECREASED GLUCOSE; Start 11/14/16 at 01:00 Glucagon (Glucagen) 1 mg Q15M PRN IM DECREASED GLUCOSE; Start 11/14/16 at 01:00 Glucose (Glutose) 15 gm Q15M PRN BUCCAL DECREASED GLUCOSE; Start 11/14/16 at 01 :00 Diagnostic Test (Pha) (Accu-Chek) 1 ea 02 XX Last administered on 11/17/16 02: 00; Admin Dose 1 EA; Start 11/15/16 at 02:00 Hydralazine HCl 50 mg 50 mg TID PO Last administered on 11/17/16 20:02; Admin Dose 50 MG; Start 11/16/16 at 09:00 Dextrose/Sodium Chloride (D5-1/2ns) 1,000 ml @ 50 mls/hr Q20H IV Last administered on 11/17/16t 20:08; Admin Dose 50 MLS/HR; Start 11/17/16 at 19:00; Stop 11/18/16 at 18:59 BHUMI CONRAD MD Nov 18, 2016 12:12
[2016-11-18] MEDS: ALPRAZOLAM 0.25 MG TAB PO PRN (12:36)
[2016-11-18] MEDS: morphine 2 MG INJ IV PRN (14:47)
[2016-11-18] MEDS: DEXTROSE 5%-0.45% NACL 1,000 ML IV SCH (16:00)
--- NOTE | 2016-11-18 16:01 | PN ---
Date/Time of Note Date/Time of Note DATE: 11/18/16 TIME: 15:59 Assessment/Plan Lines/Catheters IV Catheter Type (from [facility]): Saline Lock Urinary Cath still in place: No Assessment/Plan Assessment/Plan 1. Nonoliguric acute kidney injury on top of chronic kidney disease stage V, now end-stage renal disease. The patient had urgent hemodialysis yesterday and this morning. Will continue dialysis, anticipate intermittently 3 to 4 times weekly. The patient currently has a Johnathan catheter. We will place the Perm-A -Cath in the next 1 to 2 days. We will also have vascular surgery evaluation for AV fistula placement. 2. Hyperkalemia secondary to chronic kidney disease and end-stage renal disease. The patient was dialyzed on a 2K bath. We will follow up renal panel. Continue renal diet. 3. ____ acute kidney injury, improved. Continue hemodialysis. 4. Mineral bone disorder. Monitor calcium and phosphorus levels. 5. Volume overload secondary to acute kidney injury and congestive heart failure. The patient is improving. Will continue ultrafiltration dialysis. 6. Acute respiratory failure secondary to congestive heart failure. Continue ultrafiltration with dialysis. 7. History of BPH. Continue medical management. Subjective 24 Hr Interval Summary Free Text/Dictation The patient had an urgent dialysis catheter placed by Dr. Irizarry. Greatly appreciate his help with placing the catheter. The patient was dialyzed yesterday, tolerated it well, was dialyzed again this morning. No other acute events noted. No hemoptysis, hematemesis, or hematochezia. Exam/Review of Systems Vital Signs Vitals Vital Signs Date Time Temp Pulse Resp B/P Pulse Ox O2 Delivery O2 Flow Rate FiO2 11/18/16 14:40 70 11/18/16 14:40 12 11/18/16 12:25 98.2 174/86 98 11/18/16 12:00 Room Air 11/17/16 22:54 2 Intake and Output 11/17/16 11/17/16 11/18/16 15:00 23:00 07:00 Intake Total 650 ml 850 ml Output Total 200 ml 850 ml Balance 450 ml 0 ml Results Result Diagram: 11/17/16 0930 11/18/16 0700 Results 24 hrs Laboratory Tests Test 11/17/16 17:36 11/17/16 18:01 11/17/16 18:20 11/17/16 19:55 Bedside Glucose 63 L 128 122 111 Test 11/18/16 06:14 11/18/16 07:00 11/18/16 07:47 11/18/16 13:00 Bedside Glucose 78 72 108 Potassium Level 5.1 Medications Medications Current Medications Ondansetron HCl (Zofran Inj) 4 mg Q6H PRN IV NAUSEA AND/OR VOMITING; Start at 00:30 Acetaminophen (Tylenol Tab) 650 mg Q6H PRN PO PAIN LEVEL 1-3 OR FEVER; Start at 00:30 Acetaminophen/ Hydrocodone Bitart ([place] (5/325)) 1 tab Q6H PRN PO MODERATE PAIN LEVEL 4-6 Last administered on 11/17/16 20:02; Admin Dose 1 TAB; Start at 00:30 Morphine Sulfate (morphine) 2 mg Q4H PRN IV SEVERE PAIN LEVEL 7-10 Last administered on 11/18/16 14:47; Admin Dose 2 MG; Start 11/14/16 at 00:30 Docusate Sodium (Colace) 100 mg Q12H PRN PO CONSTIPATION; Start 11/14/16 at 00: 30 Alprazolam (Xanax) 0.25 mg Q8H PRN PO ANXIETY Last administered on 11/18/16 12 :36; Admin Dose 0.25 MG; Start 11/14/16 at 00:30 Bisacodyl (Dulcolax) 10 mg DAILY PRN PO CONSTIPATION; Start 11/14/16 at 00:30 Docusate Sodium (Colace) 200 mg DAILY PO Last administered on 11/17/16 17:46; Admin Dose 200 MG; Start 11/14/16 at 09:00 Finasteride (Proscar) 5 mg DAILY PO Last administered on 11/17/16 17:47; Admin Dose 5 MG; Start 11/14/16 at 09:00 Hydralazine HCl (Apresoline) 50 mg TID PO Last administered on 11/14/16 21:35 ; Admin Dose 50 MG; Start 11/14/16 at 09:00; Status Future Hold Levothyroxine Sodium (Synthroid) 75 mcg DAILY@06 PO Last administered on 06:16; Admin Dose 75 MCG; Start 11/14/16 at 06:00 Magnesium Hydroxide (Milk Of Mag) 30 ml DAILY PO Last administered on 17:46; Admin Dose 30 ML; Start 11/14/16 at 09:00 Morphine Sulfate (Ms Contin (Er)) 15 mg Q12 PO Last administered on 11/17/16 20:01; Admin Dose 15 MG; Start 11/14/16 at 09:00 Pantoprazole (Protonix Tab) 40 mg DAILY@06 PO Last administered on 11/18/16 06 :16; Admin Dose 40 MG; Start 11/14/16 at 06:00 Simethicone (Mylicon) 80 mg Q6H PRN PO DISTENSION/GAS/BLOATING; Start 11/14/16 at 00:30 Tamsulosin HCl (Flomax) 0.4 mg HS PO Last administered on 11/17/16 20:08; Admin Dose 0.4 MG; Start 11/14/16 at 21:00 Nifedipine (Procardia Xl) 60 mg BID PO Last administered on 11/17/16 20:02; Admin Dose 60 MG; Start 11/14/16 at 09:00 Miscellaneous Information 1 ea NOTE XX ; Start 11/14/16 at 01:00 Glucose (Glutose) 15 gm Q15M PRN PO DECREASED GLUCOSE; Start 11/14/16 at 01:00 Glucose (Glutose) 22.5 gm Q15M PRN PO DECREASED GLUCOSE; Start 11/14/16 at 01: 00 Dextrose (D50w Syringe) 25 ml Q15M PRN IV DECREASED GLUCOSE Last administered on 11/17/16 17:41; Admin Dose 25 ML; Start 11/14/16 at 01:00 Dextrose (D50w Syringe) 50 ml Q15M PRN IV DECREASED GLUCOSE; Start 11/14/16 at 01:00 Glucagon (Glucagen) 1 mg Q15M PRN IM DECREASED GLUCOSE; Start 11/14/16 at 01:00 Glucose (Glutose) 15 gm Q15M PRN BUCCAL DECREASED GLUCOSE; Start 11/14/16 at 01 :00 Diagnostic Test (Pha) (Accu-Chek) 1 ea 02 XX Last administered on 11/17/16 02: 00; Admin Dose 1 EA; Start 11/15/16 at 02:00 Hydralazine HCl 50 mg 50 mg TID PO Last administered on 11/17/16 20:02; Admin Dose 50 MG; Start 11/16/16 at 09:00 Dextrose/Sodium Chloride (D5-1/2ns) 1,000 ml @ 50 mls/hr Q20H IV Last administered on 11/17/16 20:08; Admin Dose 50 MLS/HR; Start 11/17/16 at 19:00; Stop 11/18/16 at 18:59 NAE MENDOZA DO Nov 18, 2016 16:01
[2016-11-18] MEDS: ONDANSETRON 4 MG INJ IV PRN (17:47)
[2016-11-18] MEDS: TAMSULOSIN (SR) 0.4 MG CAP PO SCH (20:41)
[2016-11-19] VITALS (11 sets, daily range): BP systolic 128–147; BP diastolic 57–83; PULSE 56–69; RESP 18–20
[2016-11-19] MEDS: ACCU-CHEK XX SCH (02:00)
[2016-11-19] MEDS: LEVOTHYROXINE 75 MCG TAB PO SCH (05:58)
[2016-11-19] MEDS: PANTOPRAZOLE (EC) 40 MG TAB PO SCH (05:58)
[2016-11-19 07:53] LABS: ADD SCAN DIFF NO
[2016-11-19 08:00] LABS: BASOPHILS % 0.6 % (0.0-2.0); EOSINOPHILS % 0.3 % (0.0-7.0); HEMATOCRIT 21.1 % (42.0-52.0); HEMOGLOBIN 7.3 g/dl (14.0-18.0); LYMPHOCYTES % 28.8 % (15.0-51.0); MEAN CORPUSCULAR HEMOGLOBIN 29.8 pg (29.0-33.0); MEAN CORPUSCULAR HGB CONC 34.6 g/dl (32.0-37.0); MEAN CORPUSCULAR VOLUME 86.1 fl (82.0-101.0); MEAN PLATELET VOLUME 9.6 fl (7.4-10.4); MONOCYTE # 0.4 10^3/ul (0.3-0.9); MONOCYTES % 10.6 % (0.0-11.0); NEUTROPHILS % 59.4 % (39.0-77.0); NUCLEATED RED BLOOD CELLS% 0.6 /100WBC (0.0-0.0); PLATELET COUNT 101 10^3/UL (140-415); RED BLOOD COUNT 2.45 10^6/ul (4.70-6.10); RED CELL DISTRIBUTION WIDTH 15.1 % (11.5-14.5); WHITE BLOOD COUNT 3.3 10^3/ul (4.8-10.8)
[2016-11-19] MEDS: INSULIN ASPART [NOVOLOG] 3 ML PEN SC SCH ×4 (08:00→20:51)
[2016-11-19 08:16] LABS: CREATININE 1.45 mg/dl (0.61-1.24); MAGNESIUM 2.2 mg/dl (1.7-2.5); PHOSPHORUS 3.5 mg/dl (2.5-4.9); POTASSIUM 4.5 mmol/L (3.5-5.1)
[2016-11-19] MEDS: DOCUSATE SODIUM 100 MG CAP PO SCH (08:27)
[2016-11-19] MEDS: SEVELAMER 800 MG TAB PO SCH ×3 (08:27→18:38)
[2016-11-19] MEDS: FINASTERIDE 5 MG TAB PO SCH (08:28)
[2016-11-19] MEDS: NIFEdipine (XL) 60 MG TAB PO SCH ×2 (08:28→20:52)
[2016-11-19] MEDS: MAGNESIUM HYDROXIDE 30ML CUP PO SCH (08:28)
[2016-11-19] MEDS: morphine (ER) 15 MG TAB PO SCH ×2 (08:28→20:52)
--- NOTE | 2016-11-19 10:54 | PN ---
Date/Time of Note Date/Time of Note DATE: 11/19/16 TIME: 10:50 Assessment/Plan VTE Prophylaxis VTE Prophylaxis Intervention: anti-embolic stocking Lines/Catheters IV [facility] ([facility] Saline Lock Urinary Cath still in place: No Assessment/Plan Chief Complaint/Hosp Course 1. end-stage renal disease. -cont intermittent hd -arrange for outpt hd at [facility] 2. access -s/p avf, and permacath 3. Hyperkalemia secondary to chronic kidney disease and end-stage renal disease. -resolved . 4. Mineral bone disorder. Monitor calcium and phosphorus levels. 5. Volume overload secondary to acute kidney injury and congestive heart failure. The patient is improving. Will continue ultrafiltration dialysis. 6. Acute respiratory failure secondary to congestive heart failure. Continue ultrafiltration with dialysis. 7. History of BPH. Continue medical management. Problems: Subjective 24 Hr Interval Summary Free Text/Dictation pt stable no acute events overnight Exam/Review of Systems Vital Signs Vitals Vital Signs Date Time Temp Pulse Resp B/P Pulse Ox O2 Delivery O2 Flow Rate FiO2 11/19/16 08:00 56 11/19/16 07:52 98.0 19 130/66 100 11/18/16 19:45 Nasal Cannula 2 Intake and Output 11/18/16 11/18/16 11/19/16 15:00 23:00 07:00 Intake Total 750 ml 400 ml 800 ml Output Total 2710 ml 800 ml 950 ml Balance -1960 ml -400 ml -150 ml Exam VITAL SIGNS: Blood pressure 130/76, respirations 18, pulse 64, temperature 98.1. HEENT: Head is normocephalic. Pupils are reactive to light. NECK: Supple. HEART: Regular rate. LUNGS: Show diminished breath sounds at the base. ABDOMEN: Soft, nontender to palpation. No rebound or guarding. EXTREMITIES: Negative for clubbing, cyanosis. No edema. DERMATOLOGIC: No rashes. MUSCULOSKELETAL: No joint effusions. NEUROLOGIC: No change in exam. Results Result Diagram: 11/19/16 0658 11/19/16 0658 Results 24 hrs Laboratory Tests Test 11/18/16 13:00 11/18/16 17:12 11/18/16 20:40 11/19/16 05:57 Bedside Glucose 108 137 162 89 Test 11/19/16 06:58 11/19/16 08:25 White Blood Count 3.3 L Red Blood Count 2.45 L Hemoglobin 7.3 L Hematocrit 21.1 L Mean Corpuscular Volume 86.1 Mean Corpuscular Hemoglobin 29.8 Mean Corpuscular Hemoglobin Concent 34.6 Red Cell Distribution Width 15.1 H Platelet Count 101 L Mean Platelet Volume 9.6 Neutrophils % 59.4 Lymphocytes % 28.8 Monocytes % 10.6 Eosinophils % 0.3 Basophils % 0.6 Nucleated Red Blood Cells % 0.6 H Neutrophils # 2.0 Lymphocytes # 1.0 Monocytes # 0.4 Eosinophils # 0.0 Basophils # 0.0 Nucleated Red Blood Cells # 0.0 Sodium Level 139 Potassium Level 4.5 Chloride Level 104 Carbon Dioxide Level 27 Anion Gap 13 Blood Urea Nitrogen 27 H Creatinine 1.45 H Glucose Level 92 Calcium Level 8.0 L Phosphorus Level 3.5 Magnesium Level 2.2 Bedside Glucose 111 Medications Medications Current Medications Ondansetron HCl (Zofran Inj) 4 mg Q6H PRN IV NAUSEA AND/OR VOMITING Last administered on 11/18/16 17:47; Admin Dose 4 MG; Start 11/14/16 at 00:30 Acetaminophen (Tylenol Tab) 650 mg Q6H PRN PO PAIN LEVEL 1-3 OR FEVER; Start at 00:30 Acetaminophen/ Hydrocodone Bitart ([place] (5/325)) 1 tab Q6H PRN PO MODERATE PAIN LEVEL 4-6 Last administered on 11/17/16 20:02; Admin Dose 1 TAB; Start at 00:30 Morphine Sulfate (morphine) 2 mg Q4H PRN IV SEVERE PAIN LEVEL 7-10 Last administered on 11/18/16 14:47; Admin Dose 2 MG; Start 11/14/16 at 00:30 Docusate Sodium (Colace) 100 mg Q12H PRN PO CONSTIPATION; Start 11/14/16 at 00: 30 Alprazolam (Xanax) 0.25 mg Q8H PRN PO ANXIETY Last administered on 11/18/16 12 :36; Admin Dose 0.25 MG; Start 11/14/16 at 00:30 Bisacodyl (Dulcolax) 10 mg DAILY PRN PO CONSTIPATION; Start 11/14/16 at 00:30 Docusate Sodium (Colace) 200 mg DAILY PO Last administered on 11/19/16 08:27; Admin Dose 200 MG; Start 11/14/16 at 09:00 Finasteride (Proscar) 5 mg DAILY PO Last administered on 11/19/16 08:28; Admin Dose 5 MG; Start 11/14/16 at 09:00 Hydralazine HCl (Apresoline) 50 mg TID PO Last administered on 11/14/16 21:35 ; Admin Dose 50 MG; Start 11/14/16 at 09:00; Status Future Hold Levothyroxine Sodium (Synthroid) 75 mcg DAILY@06 PO Last administered on 05:58; Admin Dose 75 MCG; Start 11/14/16 at 06:00 Magnesium Hydroxide (Milk Of Mag) 30 ml DAILY PO Last administered on 08:28; Admin Dose 30 ML; Start 11/14/16 at 09:00 Morphine Sulfate (Ms Contin (Er)) 15 mg Q12 PO Last administered on 11/19/16 08:28; Admin Dose 15 MG; Start 11/14/16 at 09:00 Pantoprazole (Protonix Tab) 40 mg DAILY@06 PO Last administered on 11/19/16 05 :58; Admin Dose 40 MG; Start 11/14/16 at 06:00 Simethicone (Mylicon) 80 mg Q6H PRN PO DISTENSION/GAS/BLOATING; Start 11/14/16 at 00:30 Tamsulosin HCl (Flomax) 0.4 mg HS PO Last administered on 11/18/16 20:41; Admin Dose 0.4 MG; Start 11/14/16 at 21:00 Nifedipine (Procardia Xl) 60 mg BID PO Last administered on 11/19/16 08:28; Admin Dose 60 MG; Start 11/14/16 at 09:00 Miscellaneous Information 1 ea NOTE XX ; Start 11/14/16 at 01:00 Glucose (Glutose) 15 gm Q15M PRN PO DECREASED GLUCOSE; Start 11/14/16 at 01:00 Glucose (Glutose) 22.5 gm Q15M PRN PO DECREASED GLUCOSE; Start 11/14/16 at 01: 00 Dextrose (D50w Syringe) 25 ml Q15M PRN IV DECREASED GLUCOSE Last administered on 6/26/17at 17:41; Admin Dose 25 ML; Start 11/14/16 at 01:00 Dextrose (D50w Syringe) 50 ml Q15M PRN IV DECREASED GLUCOSE; Start 11/14/16 at 01:00 Glucagon (Glucagen) 1 mg Q15M PRN IM DECREASED GLUCOSE; Start 11/14/16 at 01:00 Glucose (Glutose) 15 gm Q15M PRN BUCCAL DECREASED GLUCOSE; Start 11/14/16 at 01 :00 Diagnostic Test (Pha) (Accu-Chek) 1 ea 02 XX Last administered on 11/17/16 02: 00; Admin Dose 1 EA; Start 11/15/16 at 02:00 Hydralazine HCl (Apresoline) 50 mg TID PO Last administered on 11/19/16 08:28 ; Admin Dose 50 MG; Start 11/16/16 at 09:00 Epoetin Mauricio (Epogen (Esrd)) 10,000 units ONCE ONCE SC ; Start 11/19/16 at 11: 00; Stop 11/19/16 at 11:01; Status NAE MERCHANT DO Nov 19, 2016 10:54
[2016-11-19] MEDS ORDERED: EPOETIN 10000 UNITS/1 ML INJ (ESRD) SC SCH (12:00)
--- NOTE | 2016-11-19 14:29 | PN ---
Date/Time of Note Date/Time of Note DATE: 11/19/16 TIME: 14:28 Assessment/Plan VTE Prophylaxis VTE Prophylaxis Intervention: SCD's Lines/Catheters IV Catheter Type (from Nrs): Saline Lock Urinary Cath still in place: No Assessment/Plan Assessment/Plan 1. Acute on CKD, now ESRD 2. Hyperkalemia 3. History of Lumbar spine osteomyelitis and Epidural abscess s/p Decompressive laminectomy and abscess evacuation 06/2016 4. History of Pyelonephritis 5. Hx of Diabetes, but pt has been hypoglycemic 6. Hypothyroidism. 7. 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 8. Benign prostatic hypertrophy. PLAN s/p permacath, s/p AVF Outpatient HD placement as per Nephrology d.c planning tomorrow once HD placement is confirmed appreciate nephrology and Vascular surgery help downgrade to med/surge floor Subjective 24 Hr Interval Summary Free Text/Dictation no acute events, BP stable Exam/Review of Systems Vital Signs Vitals Vital Signs Date Time Temp Pulse Resp B/P Pulse Ox O2 Delivery O2 Flow Rate FiO2 11/19/16 12:00 57 11/19/16 11:44 98.3 19 128/74 97 11/18/16 19:45 Nasal Cannula 2 Intake and Output 11/18/16 11/18/16 11/19/16 14:59 22:59 06:59 Intake Total 750 ml 400 ml 800 ml Output Total 2710 ml 800 ml 950 ml Balance -1960 ml -400 ml -150 ml Exam HEENT: Head is normocephalic. Pupils are reactive to light. NECK: Supple.no JVD, no LAD HEART: S1 S2 RRR no murmur LUNGS: Show diminished breath sounds at the base. ABDOMEN: Soft, nontender to palpation. No rebound or guarding. EXTREMITIES: Negative for clubbing, cyanosis. No edema. DERMATOLOGIC: No rashes. MUSCULOSKELETAL: No joint effusions. NEUROLOGIC: No change in exam. Results Result Diagram: 11/19/16 0658 11/19/16 0658 Results 24 hrs Laboratory Tests Test 11/18/16 17:12 11/18/16 20:40 11/19/16 05:57 11/19/16 06:58 Bedside Glucose 137 162 89 White Blood Count 3.3 L Red Blood Count 2.45 L Hemoglobin 7.3 L Hematocrit 21.1 L Mean Corpuscular Volume 86.1 Mean Corpuscular Hemoglobin 29.8 Mean Corpuscular Hemoglobin Concent 34.6 Red Cell Distribution Width 15.1 H Platelet Count 101 L Mean Platelet Volume 9.6 Neutrophils % 59.4 Lymphocytes % 28.8 Monocytes % 10.6 Eosinophils % 0.3 Basophils % 0.6 Nucleated Red Blood Cells % 0.6 H Neutrophils # 2.0 Lymphocytes # 1.0 Monocytes # 0.4 Eosinophils # 0.0 Basophils # 0.0 Nucleated Red Blood Cells # 0.0 Sodium Level 139 Potassium Level 4.5 Chloride Level 104 Carbon Dioxide Level 27 Anion Gap 13 Blood Urea Nitrogen 27 H Creatinine 1.45 H Glucose Level 92 Calcium Level 8.0 L Phosphorus Level 3.5 Magnesium Level 2.2 Test 11/19/16 08:25 11/19/16 12:11 Bedside Glucose 111 103 Medications Medications Current Medications Ondansetron HCl (Zofran Inj) 4 mg Q6H PRN IV NAUSEA AND/OR VOMITING Last administered on 11/18/16 17:47; Admin Dose 4 MG; Start 11/14/16 at 00:30 Acetaminophen (Tylenol Tab) 650 mg Q6H PRN PO PAIN LEVEL 1-3 OR FEVER; Start at 00:30 Acetaminophen/ Hydrocodone Bitart ([place] (5/325)) 1 tab Q6H PRN PO MODERATE PAIN LEVEL 4-6 Last administered on 11/17/16 20:02; Admin Dose 1 TAB; Start at 00:30 Morphine Sulfate (morphine) 2 mg Q4H PRN IV SEVERE PAIN LEVEL 7-10 Last administered on 11/18/16 14:47; Admin Dose 2 MG; Start 11/14/16 at 00:30 Docusate Sodium (Colace) 100 mg Q12H PRN PO CONSTIPATION; Start 11/14/16 at 00: 30 Alprazolam (Xanax) 0.25 mg Q8H PRN PO ANXIETY Last administered on 11/18/16 12 :36; Admin Dose 0.25 MG; Start 11/14/16 at 00:30 Bisacodyl (Dulcolax) 10 mg DAILY PRN PO CONSTIPATION; Start 11/14/16 at 00:30 Docusate Sodium (Colace) 200 mg DAILY PO Last administered on 11/19/16 08:27; Admin Dose 200 MG; Start 11/14/16 at 09:00 Finasteride (Proscar) 5 mg DAILY PO Last administered on 11/19/16 08:28; Admin Dose 5 MG; Start 11/14/16 at 09:00 Hydralazine HCl (Apresoline) 50 mg TID PO Last administered on 11/14/16 21:35 ; Admin Dose 50 MG; Start 11/14/16 at 09:00; Status Future Hold Levothyroxine Sodium (Synthroid) 75 mcg DAILY@06 PO Last administered on 05:58; Admin Dose 75 MCG; Start 11/14/16 at 06:00 Magnesium Hydroxide (Milk Of Mag) 30 ml DAILY PO Last administered on 08:28; Admin Dose 30 ML; Start 11/14/16 at 09:00 Morphine Sulfate (Ms Contin (Er)) 15 mg Q12 PO Last administered on 11/19/16 08:28; Admin Dose 15 MG; Start 11/14/16 at 09:00 Pantoprazole (Protonix Tab) 40 mg DAILY@06 PO Last administered on 11/19/16 05 :58; Admin Dose 40 MG; Start 11/14/16 at 06:00 Simethicone (Mylicon) 80 mg Q6H PRN PO DISTENSION/GAS/BLOATING; Start 11/14/16 at 00:30 Tamsulosin HCl (Flomax) 0.4 mg HS PO Last administered on 11/18/16 20:41; Admin Dose 0.4 MG; Start 11/14/16 at 21:00 Nifedipine (Procardia Xl) 60 mg BID PO Last administered on 11/19/16 08:28; Admin Dose 60 MG; Start 11/14/16 at 09:00 Miscellaneous Information 1 ea NOTE XX ; Start 11/14/16 at 01:00 Glucose (Glutose) 15 gm Q15M PRN PO DECREASED GLUCOSE; Start 11/14/16 at 01:00 Glucose (Glutose) 22.5 gm Q15M PRN PO DECREASED GLUCOSE; Start 11/14/16 at 01: 00 Dextrose (D50w Syringe) 25 ml Q15M PRN IV DECREASED GLUCOSE Last administered on 11/17/16 17:41; Admin Dose 25 ML; Start 11/14/16 at 01:00 Dextrose (D50w Syringe) 50 ml Q15M PRN IV DECREASED GLUCOSE; Start 11/14/16 at 01:00 Glucagon (Glucagen) 1 mg Q15M PRN IM DECREASED GLUCOSE; Start 11/14/16 at 01:00 Glucose (Glutose) 15 gm Q15M PRN BUCCAL DECREASED GLUCOSE; Start 11/14/16 at 01 :00 Diagnostic Test (Pha) (Accu-Chek) 1 ea 02 XX Last administered on 11/17/16 02: 00; Admin Dose 1 EA; Start 11/15/16 at 02:00 Hydralazine HCl (Apresoline) 50 mg TID PO Last administered on 11/19/16 12:12 ; Admin Dose 50 MG; Start 11/16/16 at 09:00 Epoetin Mauricio (Epogen (Esrd)) 10,000 units ONCE SC Last administered on 12:13; Admin Dose 10,000 UNITS; Start 11/19/16 at 12:00; Stop 11/19/16 at 23:00 BHUMI CONRAD MD Nov 19, 2016 14:29
[2016-11-19] MEDS: ONDANSETRON 4 MG INJ IV PRN (18:38)
[2016-11-19] MEDS: ACETAMINOPHEN 325 MG TAB PO PRN (18:38)
[2016-11-19] MEDS: TAMSULOSIN (SR) 0.4 MG CAP PO SCH (20:52)
[2016-11-20] VITALS (15 sets, daily range): BP systolic 99–195; BP diastolic 1–94; PULSE 52–89; RESP 18–20
[2016-11-20] MEDS: ACCU-CHEK XX SCH (02:00)
[2016-11-20] MEDS: LEVOTHYROXINE 75 MCG TAB PO SCH (06:00)
[2016-11-20] MEDS: PANTOPRAZOLE (EC) 40 MG TAB PO SCH (06:00)
[2016-11-20] MEDS: INSULIN ASPART [NOVOLOG] 3 ML PEN SC SCH ×4 (08:00→21:00)
[2016-11-20] MEDS: FINASTERIDE 5 MG TAB PO SCH ×2 (09:00→11:45)
[2016-11-20] MEDS: MAGNESIUM HYDROXIDE 30ML CUP PO SCH (09:00)
[2016-11-20] MEDS: DOCUSATE SODIUM 100 MG CAP PO SCH (09:00)
[2016-11-20] MEDS: NIFEdipine (XL) 60 MG TAB PO SCH ×2 (09:00→11:46)
[2016-11-20] MEDS: morphine (ER) 15 MG TAB PO SCH ×3 (09:00→20:19)
[2016-11-20] MEDS: SEVELAMER 800 MG TAB PO SCH ×3 (09:52→17:12)
--- NOTE | 2016-11-20 10:35 | PN ---
Date/Time of Note Date/Time of Note DATE: 11/20/16 TIME: 10:33 Assessment/Plan Lines/Catheters IV Catheter Type (from Nrs): Saline Lock Urinary Cath still in place: No Assessment/Plan Chief Complaint/Hosp Course 1. end-stage renal disease. -cont intermittent hd -arrange for outpt hd at [facility] 2. access -s/p avf, and permacath 3. Hyperkalemia secondary to chronic kidney disease and end-stage renal disease. -resolved . 4. Mineral bone disorder. Monitor calcium and phosphorus levels. 5. Volume overload secondary to acute kidney injury and congestive heart failure. The patient is improving. Will continue ultrafiltration dialysis. 6. Acute respiratory failure secondary to congestive heart failure. Continue ultrafiltration with dialysis. 7. History of BPH. Continue medical management. Problems: Subjective 24 Hr Interval Summary Free Text/Dictation -stable no acute events overnight Exam/Review of Systems Vital Signs Vitals Vital Signs Date Time Temp Pulse Resp B/P Pulse Ox O2 Delivery O2 Flow Rate FiO2 11/20/16 09:26 62 11/20/16 08:18 98.2 20 177/91 98 11/18/16 19:45 Nasal Cannula 2 Intake and Output 11/19/16 11/19/16 11/20/16 15:00 23:00 07:00 Intake Total 300 ml Balance 300 ml Exam EENT: Head is normocephalic. Pupils are reactive to light. NECK: Supple. HEART: Regular rate. LUNGS: Show diminished breath sounds at the base. ABDOMEN: Soft, nontender to palpation. No rebound or guarding. EXTREMITIES: Negative for clubbing, cyanosis. No edema. DERMATOLOGIC: No rashes. MUSCULOSKELETAL: No joint effusions. NEUROLOGIC: No change in exam. Results Result Diagram: 11/19/16 0658 11/19/16 0658 Results 24 hrs Laboratory Tests Test 11/19/16 12:11 11/19/16 17:22 11/19/16 20:09 11/20/16 08:01 Bedside Glucose 103 82 102 71 Medications Medications Current Medications Ondansetron HCl (Zofran Inj) 4 mg Q6H PRN IV NAUSEA AND/OR VOMITING Last administered on 11/19/16t 18:38; Admin Dose 4 MG; Start 11/14/16 at 00:30 Acetaminophen (Tylenol Tab) 650 mg Q6H PRN PO PAIN LEVEL 1-3 OR FEVER Last administered on 11/19/16 18:38; Admin Dose 650 MG; Start 11/14/16 at 00:30 Acetaminophen/ Hydrocodone Bitart ([place] (5/325)) 1 tab Q6H PRN PO MODERATE PAIN LEVEL 4-6 Last administered on 11/17/16 20:02; Admin Dose 1 TAB; Start at 00:30 Morphine Sulfate (morphine) 2 mg Q4H PRN IV SEVERE PAIN LEVEL 7-10 Last administered on 11/18/16 14:47; Admin Dose 2 MG; Start 11/14/16 at 00:30 Docusate Sodium (Colace) 100 mg Q12H PRN PO CONSTIPATION; Start 11/14/16 at 00: 30 Alprazolam (Xanax) 0.25 mg Q8H PRN PO ANXIETY Last administered on 11/18/16 12 :36; Admin Dose 0.25 MG; Start 11/14/16 at 00:30 Bisacodyl (Dulcolax) 10 mg DAILY PRN PO CONSTIPATION; Start 11/14/16 at 00:30 Docusate Sodium (Colace) 200 mg DAILY PO Last administered on 11/19/16 08:27; Admin Dose 200 MG; Start 11/14/16 at 09:00 Finasteride (Proscar) 5 mg DAILY PO Last administered on 11/19/16 08:28; Admin Dose 5 MG; Start 11/14/16 at 09:00 Levothyroxine Sodium (Synthroid) 75 mcg DAILY@06 PO Last administered on 06:00; Admin Dose 75 MCG; Start 11/14/16 at 06:00 Magnesium Hydroxide (Milk Of Mag) 30 ml DAILY PO Last administered on 08:28; Admin Dose 30 ML; Start 11/14/16 at 09:00 Morphine Sulfate (Ms Contin (Er)) 15 mg Q12 PO Last administered on 11/19/16 08:28; Admin Dose 15 MG; Start 11/14/16 at 09:00 Pantoprazole (Protonix Tab) 40 mg DAILY@06 PO Last administered on 11/20/16 06 :00; Admin Dose 40 MG; Start 11/14/16 at 06:00 Simethicone (Mylicon) 80 mg Q6H PRN PO DISTENSION/GAS/BLOATING; Start 11/14/16 at 00:30 Tamsulosin HCl (Flomax) 0.4 mg HS PO Last administered on 11/18/16 20:41; Admin Dose 0.4 MG; Start 11/14/16 at 21:00 Nifedipine (Procardia Xl) 60 mg BID PO Last administered on 11/19/16 08:28; Admin Dose 60 MG; Start 11/14/16 at 09:00 Miscellaneous Information 1 ea NOTE XX ; Start 11/14/16 at 01:00 Glucose (Glutose) 15 gm Q15M PRN PO DECREASED GLUCOSE; Start 11/14/16 at 01:00 Glucose (Glutose) 22.5 gm Q15M PRN PO DECREASED GLUCOSE; Start 11/14/16 at 01: 00 Dextrose (D50w Syringe) 25 ml Q15M PRN IV DECREASED GLUCOSE Last administered on 11/17/16 17:41; Admin Dose 25 ML; Start 11/14/16 at 01:00 Dextrose (D50w Syringe) 50 ml Q15M PRN IV DECREASED GLUCOSE; Start 11/14/16 at 01:00 Glucagon (Glucagen) 1 mg Q15M PRN IM DECREASED GLUCOSE; Start 11/14/16 at 01:00 Glucose (Glutose) 15 gm Q15M PRN BUCCAL DECREASED GLUCOSE; Start 11/14/16 at 01 :00 Diagnostic Test (Pha) (Accu-Chek) 1 ea 02 XX Last administered on 11/17/16 02: 00; Admin Dose 1 EA; Start 11/15/16 at 02:00 Hydralazine HCl (Apresoline) 50 mg TID PO Last administered on 11/19/16 12:12 ; Admin Dose 50 MG; Start 11/16/16 at 09:00 NAE MENDOZA DO Nov 20, 2016 10:34
[2016-11-20] MEDS ORDERED: EPOETIN 10000 UNITS/1 ML INJ (ESRD) SC SCH (11:00)
--- NOTE | 2016-11-20 11:20 | PN ---
Date/Time of Note Date/Time of Note DATE: 11/20/16 TIME: 11:19 Assessment/Plan VTE Prophylaxis VTE Prophylaxis Intervention: SCD's Lines/Catheters IV Catheter Type (from Nrsg): Saline Lock Urinary Cath still in place: No Assessment/Plan Assessment/Plan 1. Acute on CKD, now ESRD 2. Hyperkalemia 3. History of Lumbar spine osteomyelitis and Epidural abscess s/p Decompressive laminectomy and abscess evacuation 06/2016 4. History of Pyelonephritis 5. Hx of Diabetes, but pt has been hypoglycemic 6. Hypothyroidism. 7. 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 8. Benign prostatic hypertrophy. PLAN s/p permacath, s/p AVF Outpatient HD placement as per Nephrology HD today appreciate nephrology and Vascular surgery help downgraded to med/surge floor Subjective 24 Hr Interval Summary Free Text/Dictation plan for HD today Exam/Review of Systems Vital Signs Vitals Vital Signs Date Time Temp Pulse Resp B/P Pulse Ox O2 Delivery O2 Flow Rate FiO2 11/20/16 10:15 52 11/20/16 08:18 98.2 20 177/91 98 11/18/16 19:45 Nasal Cannula 2 Intake and Output 11/19/16 11/19/16 11/20/16 15:00 23:00 07:00 Intake Total 300 ml Balance 300 ml Exam HEENT: Head is normocephalic. Pupils are reactive to light. NECK: Supple.no JVD, no LAD HEART: S1 S2 RRR no murmur LUNGS: Show diminished breath sounds at the base. ABDOMEN: Soft, nontender to palpation. No rebound or guarding. EXTREMITIES: Negative for clubbing, cyanosis. No edema. DERMATOLOGIC: No rashes. MUSCULOSKELETAL: No joint effusions. NEUROLOGIC: No change in exam. Results Result Diagram: 11/19/16 0658 11/19/16 0658 Results 24 hrs Laboratory Tests Test 11/19/16 12:11 11/19/16 17:22 11/19/16 20:09 11/20/16 08:01 Bedside Glucose 103 82 102 71 Medications Medications Current Medications Ondansetron HCl (Zofran Inj) 4 mg Q6H PRN IV NAUSEA AND/OR VOMITING Last administered on 11/19/16t 18:38; Admin Dose 4 MG; Start 11/14/16 at 00:30 Acetaminophen (Tylenol Tab) 650 mg Q6H PRN PO PAIN LEVEL 1-3 OR FEVER Last administered on 11/19/16 18:38; Admin Dose 650 MG; Start 11/14/16 at 00:30 Acetaminophen/ Hydrocodone Bitart ([place] (5/325)) 1 tab Q6H PRN PO MODERATE PAIN LEVEL 4-6 Last administered on 11/17/16 20:02; Admin Dose 1 TAB; Start at 00:30 Morphine Sulfate (morphine) 2 mg Q4H PRN IV SEVERE PAIN LEVEL 7-10 Last administered on 11/18/16 14:47; Admin Dose 2 MG; Start 11/14/16 at 00:30 Docusate Sodium (Colace) 100 mg Q12H PRN PO CONSTIPATION; Start 11/14/16 at 00: 30 Alprazolam (Xanax) 0.25 mg Q8H PRN PO ANXIETY Last administered on 11/18/16 12 :36; Admin Dose 0.25 MG; Start 11/14/16 at 00:30 Bisacodyl (Dulcolax) 10 mg DAILY PRN PO CONSTIPATION; Start 11/14/16 at 00:30 Docusate Sodium (Colace) 200 mg DAILY PO Last administered on 11/19/16 08:27; Admin Dose 200 MG; Start 11/14/16 at 09:00 Finasteride (Proscar) 5 mg DAILY PO Last administered on 11/19/16 08:28; Admin Dose 5 MG; Start 11/14/16 at 09:00 Levothyroxine Sodium (Synthroid) 75 mcg DAILY@06 PO Last administered on 06:00; Admin Dose 75 MCG; Start 11/14/16 at 06:00 Magnesium Hydroxide (Milk Of Mag) 30 ml DAILY PO Last administered on 08:28; Admin Dose 30 ML; Start 11/14/16 at 09:00 Morphine Sulfate (Ms Contin (Er)) 15 mg Q12 PO Last administered on 11/19/16 08:28; Admin Dose 15 MG; Start 11/14/16 at 09:00 Pantoprazole (Protonix Tab) 40 mg DAILY@06 PO Last administered on 11/20/16 06 :00; Admin Dose 40 MG; Start 11/14/16 at 06:00 Simethicone (Mylicon) 80 mg Q6H PRN PO DISTENSION/GAS/BLOATING; Start 11/14/16 at 00:30 Tamsulosin HCl (Flomax) 0.4 mg HS PO Last administered on 11/18/16 20:41; Admin Dose 0.4 MG; Start 11/14/16 at 21:00 Nifedipine (Procardia Xl) 60 mg BID PO Last administered on 11/19/16 08:28; Admin Dose 60 MG; Start 11/14/16 at 09:00 Miscellaneous Information 1 ea NOTE XX ; Start 11/14/16 at 01:00 Glucose (Glutose) 15 gm Q15M PRN PO DECREASED GLUCOSE; Start 11/14/16 at 01:00 Glucose (Glutose) 22.5 gm Q15M PRN PO DECREASED GLUCOSE; Start 11/14/16 at 01: 00 Dextrose (D50w Syringe) 25 ml Q15M PRN IV DECREASED GLUCOSE Last administered on 11/17/16 17:41; Admin Dose 25 ML; Start 11/14/16 at 01:00 Dextrose (D50w Syringe) 50 ml Q15M PRN IV DECREASED GLUCOSE; Start 11/14/16 at 01:00 Glucagon (Glucagen) 1 mg Q15M PRN IM DECREASED GLUCOSE; Start 11/14/16 at 01:00 Glucose (Glutose) 15 gm Q15M PRN BUCCAL DECREASED GLUCOSE; Start 11/14/16 at 01 :00 Diagnostic Test (Pha) (Accu-Chek) 1 ea 02 XX Last administered on 11/17/16 02: 00; Admin Dose 1 EA; Start 11/15/16 at 02:00 Hydralazine HCl (Apresoline) 50 mg TID PO Last administered on 11/19/16 12:12 ; Admin Dose 50 MG; Start 11/16/16 at 09:00 BHUMI CONRAD MD Nov 20, 2016 11:20
[2016-11-20] MEDS: morphine 2 MG INJ IV PRN ×2 (13:06→21:33)
[2016-11-20] MEDS: EPOETIN 10000 UNITS/1 ML INJ (ESRD) SC SCH (13:07)
[2016-11-20] MEDS ORDERED: NIFEdipine (XL) 60 MG TAB PO ONE (17:00)
[2016-11-20] MEDS: TAMSULOSIN (SR) 0.4 MG CAP PO SCH (20:19)
[2016-11-21 00:40] VITALS: BP 146/63; RESP 20
[2016-11-21] MEDS: ACCU-CHEK XX SCH (02:00)
[2016-11-21] MEDS: ALPRAZOLAM 0.25 MG TAB PO PRN ×2 (02:53→14:21)
[2016-11-21 04:16] VITALS: BP 136/66; RESP 16
[2016-11-21] MEDS: LEVOTHYROXINE 75 MCG TAB PO SCH (05:46)
[2016-11-21] MEDS: PANTOPRAZOLE (EC) 40 MG TAB PO SCH (05:46)
[2016-11-21] MEDS: INSULIN ASPART [NOVOLOG] 3 ML PEN SC SCH ×4 (08:00→21:13)
[2016-11-21 08:10] LABS: ABNORMAL IP MESSAGE 1; BASOPHILS % 0.2 % (0.0-2.0); EOSINOPHILS # 0.1 10^3/ul (0.0-0.5); EOSINOPHILS % 0.9 % (0.0-7.0); HEMOGLOBIN 8.1 g/dl (14.0-18.0); LYMPHOCYTES # 1.1 10^3/ul (0.8-2.9); LYMPHOCYTES % 16.7 % (15.0-51.0); MEAN CORPUSCULAR HEMOGLOBIN 30.3 pg (29.0-33.0); MEAN CORPUSCULAR HGB CONC 35.2 g/dl (32.0-37.0); MEAN CORPUSCULAR VOLUME 86.1 fl (82.0-101.0); MEAN PLATELET VOLUME 9.3 fl (7.4-10.4); MONOCYTE # 0.4 10^3/ul (0.3-0.9); MONOCYTES % 5.4 % (0.0-11.0); NEUTROPHIL # 5.1 10^3/ul (1.6-7.5); NEUTROPHILS % 76.5 % (39.0-77.0); PLATELET COUNT 88 10^3/UL (140-415); RED BLOOD COUNT 2.67 10^6/ul (4.70-6.10); RED CELL DISTRIBUTION WIDTH 14.6 % (11.5-14.5); WHITE BLOOD COUNT 6.7 10^3/ul (4.8-10.8)
[2016-11-21 08:11] LABS: ADD SCAN DIFF NO
[2016-11-21 08:13] VITALS: BP 144/65; RESP 18
[2016-11-21 08:41] LABS: CALCIUM 7.8 mg/dl (8.4-10.2); CREATININE 1.62 mg/dl (0.61-1.24); MAGNESIUM 2.5 mg/dl (1.7-2.5); PHOSPHORUS 2.4 mg/dl (2.5-4.9)
[2016-11-21] MEDS: FINASTERIDE 5 MG TAB PO SCH (08:52)
[2016-11-21] MEDS: SEVELAMER 800 MG TAB PO SCH ×3 (08:52→17:29)
[2016-11-21] MEDS: DOCUSATE SODIUM 100 MG CAP PO SCH ×2 (08:52→08:56)
[2016-11-21] MEDS: morphine (ER) 15 MG TAB PO SCH ×2 (08:52→21:07)
[2016-11-21] MEDS: MAGNESIUM HYDROXIDE 30ML CUP PO SCH ×2 (08:52→08:57)
[2016-11-21] MEDS: NIFEdipine (XL) 90 MG TAB PO SCH ×2 (08:53→21:07)
--- NOTE | 2016-11-21 10:38 | PN ---
Date/Time of Note Date/Time of Note DATE: 11/21/16 TIME: 10:36 Assessment/Plan Lines/Catheters IV Catheter Type (from [facility]): Saline Lock Urinary Cath still in place: No Assessment/Plan Chief Complaint/Hosp Course 1. end-stage renal disease. -cont intermittent hd -arrange for outpt hd at [facility] 2. access -s/p avf, and permacath 3. Hyperkalemia secondary to chronic kidney disease and end-stage renal disease. -resolved . 4. Mineral bone disorder. Monitor calcium and phosphorus levels. 5. Volume overload secondary to acute kidney injury and congestive heart failure. The patient is improving. Will continue ultrafiltration dialysis. 6. Acute respiratory failure secondary to congestive heart failure. Continue ultrafiltration with dialysis. 7. History of BPH. Continue medical management. Problems: Subjective 24 Hr Interval Summary Free Text/Dictation Patient stable no acute events overnight Exam/Review of Systems Vital Signs Vitals Vital Signs Date Time Temp Pulse Resp B/P Pulse Ox O2 Delivery O2 Flow Rate FiO2 11/21/16 08:13 98.1 57 18 144/65 98 11/18/16 19:45 Nasal Cannula 2 Intake and Output 11/20/16 11/20/16 11/21/16 15:00 23:00 07:00 Intake Total 500 ml 1000 ml Output Total 2500 ml 300 ml Balance -2000 ml 700 ml Exam HEENT: Head is normocephalic. Pupils are reactive to light. NECK: Supple. HEART: Regular rate. LUNGS: Show diminished breath sounds at the base. ABDOMEN: Soft, nontender to palpation. No rebound or guarding. EXTREMITIES: Negative for clubbing, cyanosis. No edema. DERMATOLOGIC: No rashes. MUSCULOSKELETAL: No joint effusions. NEUROLOGIC: No change in exam. Results Result Diagram: 11/21/16 0710 11/21/16 0710 Results 24 hrs Laboratory Tests Test 11/20/16 11:42 11/20/16 17:07 11/20/16 21:22 11/21/16 02:15 Bedside Glucose 125 174 177 117 Test 11/21/16 07:10 11/21/16 08:31 White Blood Count 6.7 # Red Blood Count 2.67 L Hemoglobin 8.1 L Hematocrit 23.0 L Mean Corpuscular Volume 86.1 Mean Corpuscular Hemoglobin 30.3 Mean Corpuscular Hemoglobin Concent 35.2 Red Cell Distribution Width 14.6 H Platelet Count 88 L Mean Platelet Volume 9.3 Neutrophils % 76.5 Lymphocytes % 16.7 Monocytes % 5.4 Eosinophils % 0.9 Basophils % 0.2 Nucleated Red Blood Cells % 0.0 Neutrophils # 5.1 Lymphocytes # 1.1 Monocytes # 0.4 Eosinophils # 0.1 Basophils # 0.0 Nucleated Red Blood Cells # 0.0 Sodium Level 133 L Potassium Level 4.0 Chloride Level 96 L Carbon Dioxide Level 27 Anion Gap 14 Blood Urea Nitrogen 25 H Creatinine 1.62 H Glucose Level 80 Calcium Level 7.8 L Phosphorus Level 2.4 L Magnesium Level 2.5 Bedside Glucose 82 Medications Medications Current Medications Ondansetron HCl (Zofran Inj) 4 mg Q6H PRN IV NAUSEA AND/OR VOMITING Last administered on 11/19/16 18:38; Admin Dose 4 MG; Start 11/14/16 at 00:30 Acetaminophen (Tylenol Tab) 650 mg Q6H PRN PO PAIN LEVEL 1-3 OR FEVER Last administered on 11/19/16 18:38; Admin Dose 650 MG; Start 11/14/16 at 00:30 Acetaminophen/ Hydrocodone Bitart ([place] (5/325)) 1 tab Q6H PRN PO MODERATE PAIN LEVEL 4-6 Last administered on 11/17/16 20:02; Admin Dose 1 TAB; Start at 00:30 Morphine Sulfate (morphine) 2 mg Q4H PRN IV SEVERE PAIN LEVEL 7-10 Last administered on 11/20/16 21:33; Admin Dose 2 MG; Start 11/14/16 at 00:30 Docusate Sodium (Colace) 100 mg Q12H PRN PO CONSTIPATION; Start 11/14/16 at 00: 30 Alprazolam (Xanax) 0.25 mg Q8H PRN PO ANXIETY Last administered on 11/21/16 02 :53; Admin Dose 0.25 MG; Start 11/14/16 at 00:30 Bisacodyl (Dulcolax) 10 mg DAILY PRN PO CONSTIPATION; Start 11/14/16 at 00:30 Docusate Sodium (Colace) 200 mg DAILY PO Last administered on 11/19/16 08:27; Admin Dose 200 MG; Start 11/14/16 at 09:00 Finasteride (Proscar) 5 mg DAILY PO Last administered on 11/21/16 08:52; Admin Dose 5 MG; Start 11/14/16 at 09:00 Levothyroxine Sodium (Synthroid) 75 mcg DAILY@06 PO Last administered on 05:46; Admin Dose 75 MCG; Start 11/14/16 at 06:00 Magnesium Hydroxide (Milk Of Mag) 30 ml DAILY PO Last administered on 08:28; Admin Dose 30 ML; Start 11/14/16 at 09:00 Morphine Sulfate (Ms Contin (Er)) 15 mg Q12 PO Last administered on 11/21/16 08:52; Admin Dose 15 MG; Start 11/14/16 at 09:00 Pantoprazole (Protonix Tab) 40 mg DAILY@06 PO Last administered on 11/21/16 05 :46; Admin Dose 40 MG; Start 11/14/16 at 06:00 Simethicone (Mylicon) 80 mg Q6H PRN PO DISTENSION/GAS/BLOATING; Start 11/14/16 at 00:30 Tamsulosin HCl (Flomax) 0.4 mg HS PO Last administered on 11/20/16 20:19; Admin Dose 0.4 MG; Start 11/14/16 at 21:00 Miscellaneous Information 1 ea NOTE XX ; Start 11/14/16 at 01:00 Glucose (Glutose) 15 gm Q15M PRN PO DECREASED GLUCOSE; Start 11/14/16 at 01:00 Glucose (Glutose) 22.5 gm Q15M PRN PO DECREASED GLUCOSE; Start 11/14/16 at 01: 00 Dextrose (D50w Syringe) 25 ml Q15M PRN IV DECREASED GLUCOSE Last administered on 11/17/16 17:41; Admin Dose 25 ML; Start 11/14/16 at 01:00 Dextrose (D50w Syringe) 50 ml Q15M PRN IV DECREASED GLUCOSE; Start 11/14/16 at 01:00 Glucagon (Glucagen) 1 mg Q15M PRN IM DECREASED GLUCOSE; Start 11/14/16 at 01:00 Glucose (Glutose) 15 gm Q15M PRN BUCCAL DECREASED GLUCOSE; Start 11/14/16 at 01 :00 Diagnostic Test (Pha) (Accu-Chek) 1 ea 02 XX Last administered on 11/17/16 02: 00; Admin Dose 1 EA; Start 11/15/16 at 02:00 Hydralazine HCl (Apresoline) 50 mg TID PO Last administered on 11/21/16 08:53 ; Admin Dose 50 MG; Start 11/16/16 at 09:00 Nifedipine (Procardia Xl) 90 mg BID PO Last administered on 11/21/16 08:53; Admin Dose 90 MG; Start 11/21/16 at 09:00 NAE MENDOZA DO Nov 21, 2016 10:37
--- NOTE | 2016-11-21 10:45 | PN ---
Date/Time of Note Date/Time of Note DATE: 11/21/16 TIME: 10:44 Assessment/Plan VTE Prophylaxis VTE Prophylaxis Intervention: SCD's Lines/Catheters IV [facility]from [facility] Saline Lock Urinary Cath still in place: No Assessment/Plan Assessment/Plan 1. Acute on CKD, now ESRD 2. Hyperkalemia 3. History of Lumbar spine osteomyelitis and Epidural abscess s/p Decompressive laminectomy and abscess evacuation 06/2016 4. History of Pyelonephritis 5. Hx of Diabetes, but pt has been hypoglycemic 6. Hypothyroidism. 7. 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 8. Benign prostatic hypertrophy. PLAN s/p permacath, s/p AVF Outpatient HD placement as per Nephrology-set up at [facility] nephrology and Vascular surgery help d/c to SNF today Subjective 24 Hr Interval Summary Free Text/Dictation stable, plan for HD today Exam/Review of Systems Vital Signs Vitals Vital Signs Date Time Temp Pulse Resp B/P Pulse Ox O2 Delivery O2 Flow Rate FiO2 11/21/16 08:13 98.1 57 18 144/65 98 11/18/16 19:45 Nasal Cannula 2 Intake and Output 11/20/16 11/20/16 11/21/16 15:00 23:00 07:00 Intake Total 500 ml 1000 ml Output Total 2500 ml 300 ml Balance -2000 ml 700 ml Exam HEENT: Head is normocephalic. Pupils are reactive to light. NECK: Supple.no JVD, no LAD HEART: S1 S2 RRR no murmur LUNGS: Show diminished breath sounds at the base. ABDOMEN: Soft, nontender to palpation. No rebound or guarding. EXTREMITIES: Negative for clubbing, cyanosis. No edema. DERMATOLOGIC: No rashes. MUSCULOSKELETAL: No joint effusions. NEUROLOGIC: No change in exam. Results Result Diagram: 11/21/16 0710 11/21/16 0710 Results 24 hrs Laboratory Tests Test 11/20/16 11:42 11/20/16 17:07 11/20/16 21:22 11/21/16 02:15 Bedside Glucose 125 174 177 117 Test 11/21/16 07:10 11/21/16 08:31 White Blood Count 6.7 # Red Blood Count 2.67 L Hemoglobin 8.1 L Hematocrit 23.0 L Mean Corpuscular Volume 86.1 Mean Corpuscular Hemoglobin 30.3 Mean Corpuscular Hemoglobin Concent 35.2 Red Cell Distribution Width 14.6 H Platelet Count 88 L Mean Platelet Volume 9.3 Neutrophils % 76.5 Lymphocytes % 16.7 Monocytes % 5.4 Eosinophils % 0.9 Basophils % 0.2 Nucleated Red Blood Cells % 0.0 Neutrophils # 5.1 Lymphocytes # 1.1 Monocytes # 0.4 Eosinophils # 0.1 Basophils # 0.0 Nucleated Red Blood Cells # 0.0 Sodium Level 133 L Potassium Level 4.0 Chloride Level 96 L Carbon Dioxide Level 27 Anion Gap 14 Blood Urea Nitrogen 25 H Creatinine 1.62 H Glucose Level 80 Calcium Level 7.8 L Phosphorus Level 2.4 L Magnesium Level 2.5 Bedside Glucose 82 Medications Medications Current Medications Ondansetron HCl (Zofran Inj) 4 mg Q6H PRN IV NAUSEA AND/OR VOMITING Last administered on 11/19/16 18:38; Admin Dose 4 MG; Start 11/14/16 at 00:30 Acetaminophen (Tylenol Tab) 650 mg Q6H PRN PO PAIN LEVEL 1-3 OR FEVER Last administered on 11/19/16 18:38; Admin Dose 650 MG; Start 11/14/16 at 00:30 Acetaminophen/ Hydrocodone Bitart ([place] (5/325)) 1 tab Q6H PRN PO MODERATE PAIN LEVEL 4-6 Last administered on 11/17/16 20:02; Admin Dose 1 TAB; Start at 00:30 Morphine Sulfate (morphine) 2 mg Q4H PRN IV SEVERE PAIN LEVEL 7-10 Last administered on 11/20/16 21:33; Admin Dose 2 MG; Start 11/14/16 at 00:30 Docusate Sodium (Colace) 100 mg Q12H PRN PO CONSTIPATION; Start 11/14/16 at 00: 30 Alprazolam (Xanax) 0.25 mg Q8H PRN PO ANXIETY Last administered on 11/21/16 02 :53; Admin Dose 0.25 MG; Start 11/14/16 at 00:30 Bisacodyl (Dulcolax) 10 mg DAILY PRN PO CONSTIPATION; Start 11/14/16 at 00:30 Docusate Sodium (Colace) 200 mg DAILY PO Last administered on 11/19/16 08:27; Admin Dose 200 MG; Start 11/14/16 at 09:00 Finasteride (Proscar) 5 mg DAILY PO Last administered on 11/21/16 08:52; Admin Dose 5 MG; Start 11/14/16 at 09:00 Levothyroxine Sodium (Synthroid) 75 mcg DAILY@06 PO Last administered on 05:46; Admin Dose 75 MCG; Start 11/14/16 at 06:00 Magnesium Hydroxide (Milk Of Mag) 30 ml DAILY PO Last administered on 08:28; Admin Dose 30 ML; Start 11/14/16 at 09:00 Morphine Sulfate (Ms Contin (Er)) 15 mg Q12 PO Last administered on 11/21/16 08:52; Admin Dose 15 MG; Start 11/14/16 at 09:00 Pantoprazole (Protonix Tab) 40 mg DAILY@06 PO Last administered on 11/21/16 05 :46; Admin Dose 40 MG; Start 11/14/16 at 06:00 Simethicone (Mylicon) 80 mg Q6H PRN PO DISTENSION/GAS/BLOATING; Start 11/14/16 at 00:30 Tamsulosin HCl (Flomax) 0.4 mg HS PO Last administered on 11/20/16 20:19; Admin Dose 0.4 MG; Start 11/14/16 at 21:00 Miscellaneous Information 1 ea NOTE XX ; Start 11/14/16 at 01:00 Glucose (Glutose) 15 gm Q15M PRN PO DECREASED GLUCOSE; Start 11/14/16 at 01:00 Glucose (Glutose) 22.5 gm Q15M PRN PO DECREASED GLUCOSE; Start 11/14/16 at 01: 00 Dextrose (D50w Syringe) 25 ml Q15M PRN IV DECREASED GLUCOSE Last administered on 11/17/16 17:41; Admin Dose 25 ML; Start 11/14/16 at 01:00 Dextrose (D50w Syringe) 50 ml Q15M PRN IV DECREASED GLUCOSE; Start 11/14/16 at 01:00 Glucagon (Glucagen) 1 mg Q15M PRN IM DECREASED GLUCOSE; Start 11/14/16 at 01:00 Glucose (Glutose) 15 gm Q15M PRN BUCCAL DECREASED GLUCOSE; Start 11/14/16 at 01 :00 Diagnostic Test (Pha) (Accu-Chek) 1 ea 02 XX Last administered on 11/17/16 02: 00; Admin Dose 1 EA; Start 11/15/16 at 02:00 Hydralazine HCl (Apresoline) 50 mg TID PO Last administered on 11/21/16 08:53 ; Admin Dose 50 MG; Start 11/16/16 at 09:00 Nifedipine (Procardia Xl) 90 mg BID PO Last administered on 11/21/16 08:53; Admin Dose 90 MG; Start 11/21/16 at 09:00 BHUMI CONRAD MD Nov 21, 2016 10:45
--- NOTE | 2016-11-21 10:46 | PDOCDIS ---
Discharge Instructions CONDITION Patient Condition: Good HOME CARE INSTRUCTIONS: Special Diet: Renal diet ACTIVITY: Activity Restrictions: Slowly Increase Activity Rest between Activity Avoid heavy lifting Avoid Heavy Housework FOLLOW UP/APPOINTMENTS Follow-up Plan Follow up with his own dialysis unit for scheduled HD, follow up with physician at [facility] BHUMI CONRAD MD Nov 21, 2016 10:46
[2016-11-21 11:42] VITALS: BP 141/64; RESP 20
[2016-11-21 16:32] VITALS: BP 156/64; RESP 18
[2016-11-21 20:19] VITALS: BP 130/61; RESP 16
[2016-11-21] MEDS: TAMSULOSIN (SR) 0.4 MG CAP PO SCH (21:06)
[2016-11-22] VITALS (15 sets, daily range): BP systolic 104–134; BP diastolic 57–77; PULSE 61–88; RESP 17–20
[2016-11-22] MEDS: ALPRAZOLAM 0.25 MG TAB PO PRN ×2 (00:50→17:41)
[2016-11-22] MEDS: ACCU-CHEK XX SCH (02:00)
[2016-11-22] MEDS ORDERED: INSULIN ASPART [NOVOLOG] 3 ML PEN SC ONE (02:30)
[2016-11-22] MEDS: PANTOPRAZOLE (EC) 40 MG TAB PO SCH (05:29)
[2016-11-22] MEDS: LEVOTHYROXINE 75 MCG TAB PO SCH (05:30)
[2016-11-22] MEDS: INSULIN ASPART [NOVOLOG] 3 ML PEN SC SCH ×4 (08:00→22:15)
[2016-11-22] MEDS: MAGNESIUM HYDROXIDE 30ML CUP PO SCH ×2 (08:38→08:43)
[2016-11-22] MEDS: morphine (ER) 15 MG TAB PO SCH ×2 (08:38→22:16)
[2016-11-22] MEDS: SEVELAMER 800 MG TAB PO SCH ×3 (08:38→17:41)
[2016-11-22] MEDS: DOCUSATE SODIUM 100 MG CAP PO SCH (08:39)
[2016-11-22] MEDS: FINASTERIDE 5 MG TAB PO SCH (08:39)
[2016-11-22] MEDS: NIFEdipine (XL) 90 MG TAB PO SCH ×2 (09:00→21:00)
--- NOTE | 2016-11-22 09:27 | PN ---
Date/Time of Note Date/Time of Note DATE: 11/22/16 TIME: 09:26 Assessment/Plan Lines/Catheters IV Catheter Type (from [facility]): Saline Lock Urinary Cath still in place: No Assessment/Plan Chief Complaint/Hosp Course 1. end-stage renal disease. -cont intermittent hd, HD today -arrange for outpt hd at [facility] 2. access -s/p avf, and permacath 3. Hyperkalemia secondary to chronic kidney disease and end-stage renal disease. -resolved . 4. Mineral bone disorder. Monitor calcium and phosphorus levels. 5. Volume overload secondary to acute kidney injury and congestive heart failure. The patient is improving. Will continue ultrafiltration dialysis. 6. Acute respiratory failure secondary to congestive heart failure. Continue ultrafiltration with dialysis. 7. History of BPH. Continue medical management. Problems: Subjective 24 Hr Interval Summary Free Text/Dictation No acute events overnight Exam/Review of Systems Vital Signs Vitals Vital Signs Date Time Temp Pulse Resp B/P Pulse Ox O2 Delivery O2 Flow Rate FiO2 11/22/16 07:41 98.5 74 17 119/57 99 11/18/16 19:45 Nasal Cannula 2 Intake and Output 11/21/16 11/21/16 11/22/16 15:00 23:00 07:00 Intake Total 300 ml 600 ml 500 ml Output Total 400 ml 500 ml 250 ml Balance -100 ml 100 ml 250 ml Exam HEENT: Head is normocephalic. Pupils are reactive to light. NECK: Supple. HEART: Regular rate. LUNGS: Show diminished breath sounds at the base. ABDOMEN: Soft, nontender to palpation. No rebound or guarding. EXTREMITIES: Negative for clubbing, cyanosis. No edema. DERMATOLOGIC: No rashes. MUSCULOSKELETAL: No joint effusions. NEUROLOGIC: No change in exam. Results Result Diagram: 11/21/16 0710 11/21/16 0710 Results 24 hrs Laboratory Tests Test 11/21/16 11:54 11/21/16 17:27 11/21/16 21:04 11/22/16 02:02 Bedside Glucose 125 88 228 H 231 H Test 11/22/16 08:35 Bedside Glucose 118 Medications Medications Current Medications Ondansetron HCl (Zofran Inj) 4 mg Q6H PRN IV NAUSEA AND/OR VOMITING Last administered on 11/19/16t 18:38; Admin Dose 4 MG; Start 6/23/17 at 00:30 Acetaminophen (Tylenol Tab) 650 mg Q6H PRN PO PAIN LEVEL 1-3 OR FEVER Last administered on 11/19/16 18:38; Admin Dose 650 MG; Start 11/14/16 at 00:30 Acetaminophen/ Hydrocodone Bitart ([place] (5/325)) 1 tab Q6H PRN PO MODERATE PAIN LEVEL 4-6 Last administered on 11/17/16 20:02; Admin Dose 1 TAB; Start at 00:30 Morphine Sulfate (morphine) 2 mg Q4H PRN IV SEVERE PAIN LEVEL 7-10 Last administered on 11/20/16 21:33; Admin Dose 2 MG; Start 11/14/16 at 00:30 Docusate Sodium (Colace) 100 mg Q12H PRN PO CONSTIPATION; Start 11/14/16 at 00: 30 Alprazolam (Xanax) 0.25 mg Q8H PRN PO ANXIETY Last administered on 11/22/16 00: 50; Admin Dose 0.25 MG; Start 11/14/16 at 00:30 Bisacodyl (Dulcolax) 10 mg DAILY PRN PO CONSTIPATION; Start 11/14/16 at 00:30 Docusate Sodium (Colace) 200 mg DAILY PO Last administered on 11/22/16 08:39; Admin Dose 200 MG; Start 11/14/16 at 09:00 Finasteride (Proscar) 5 mg DAILY PO Last administered on 11/22/16 08:39; Admin Dose 5 MG; Start 11/14/16 at 09:00 Levothyroxine Sodium (Synthroid) 75 mcg DAILY@06 PO Last administered on 05:30; Admin Dose 75 MCG; Start 11/14/16 at 06:00 Magnesium Hydroxide (Milk Of Mag) 30 ml DAILY PO Last administered on 08:28; Admin Dose 30 ML; Start 11/14/16 at 09:00 Morphine Sulfate (Ms Contin (Er)) 15 mg Q12 PO Last administered on 11/22/16 08 :38; Admin Dose 15 MG; Start 11/14/16 at 09:00 Pantoprazole (Protonix Tab) 40 mg DAILY@06 PO Last administered on 11/22/16 05: 29; Admin Dose 40 MG; Start 11/14/16 at 06:00 Simethicone (Mylicon) 80 mg Q6H PRN PO DISTENSION/GAS/BLOATING; Start 11/14/16 at 00:30 Tamsulosin HCl (Flomax) 0.4 mg HS PO Last administered on 11/21/16 21:06; Admin Dose 0.4 MG; Start 11/14/16 at 21:00 Miscellaneous Information 1 ea NOTE XX ; Start 11/14/16 at 01:00 Glucose (Glutose) 15 gm Q15M PRN PO DECREASED GLUCOSE; Start 11/14/16 at 01:00 Glucose (Glutose) 22.5 gm Q15M PRN PO DECREASED GLUCOSE; Start 11/14/16 at 01: 00 Dextrose (D50w Syringe) 25 ml Q15M PRN IV DECREASED GLUCOSE Last administered on 11/17/16 17:41; Admin Dose 25 ML; Start 11/14/16 at 01:00 Dextrose (D50w Syringe) 50 ml Q15M PRN IV DECREASED GLUCOSE; Start 11/14/16 at 01:00 Glucagon (Glucagen) 1 mg Q15M PRN IM DECREASED GLUCOSE; Start 11/14/16 at 01:00 Glucose (Glutose) 15 gm Q15M PRN BUCCAL DECREASED GLUCOSE; Start 11/14/16 at 01 :00 Diagnostic Test (Pha) (Accu-Chek) 1 ea 02 XX Last administered on 11/17/16 02: 00; Admin Dose 1 EA; Start 11/15/16 at 02:00 Hydralazine HCl (Apresoline) 50 mg TID PO Last administered on 11/21/16 21:06 ; Admin Dose 50 MG; Start 11/16/16 at 09:00 Nifedipine (Procardia Xl) 90 mg BID PO Last administered on 11/21/16 21:07; Admin Dose 90 MG; Start 11/21/16 at 09:00 NAE MENDOZA DO Nov 22, 2016 09:27
[2016-11-22] MEDS: morphine 2 MG INJ IV PRN (15:33)
[2016-11-22] MEDS ORDERED: MAGNESIUM HYDROXIDE 30ML CUP PO PRN (16:30)
[2016-11-22] MEDS ORDERED: DOCUSATE SODIUM 100 MG CAP PO PRN (16:30)
[2016-11-22] MEDS: LOPERAMIDE 2 MG CAP PO PRN (17:41)
[2016-11-22] MEDS: TAMSULOSIN (SR) 0.4 MG CAP PO SCH (22:16)
--- NOTE | 2016-11-22 22:28 | PN ---
Date/Time of Note Date/Time of Note DATE: 11/22/16 TIME: 22:26 Assessment/Plan VTE Prophylaxis VTE Prophylaxis Intervention: SCD's Lines/Catheters IV Catheter Type (from [facility]rs[facility]): Saline Lock Urinary Cath still in place: No Assessment/Plan Assessment/Plan 1. Acute on CKD, now ESRD 2. Hyperkalemia 3. History of Lumbar spine osteomyelitis and Epidural abscess s/p Decompressive laminectomy and abscess evacuation 06/2016 4. History of Pyelonephritis 5. Hx of Diabetes, but pt has been hypoglycemic 6. Hypothyroidism. 7. 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 8. Benign prostatic hypertrophy. PLAN s/p permacath, s/p AVF S/p HD today Outpatient HD placement as per Nephrology-set up at [facility] nephrology and Vascular surgery help d/c to SNF when bed available Subjective 24 Hr Interval Summary Free Text/Dictation remained stable, afebrile, BP stable, S/p HD today Exam/Review of Systems Vital Signs Vitals Vital Signs Date Time Temp Pulse Resp B/P Pulse Ox O2 Delivery O2 Flow Rate FiO2 11/22/16 21:43 97.8 65 19 104/60 97 11/18/16 19:45 Nasal Cannula 2 Intake and Output 11/21/16 11/21/16 11/22/16 15:00 23:00 07:00 Intake Total 300 ml 600 ml 500 ml Output Total 400 ml 500 ml 250 ml Balance -100 ml 100 ml 250 ml Results Result Diagram: 11/21/16 0710 11/21/16 0710 Results 24 hrs Laboratory Tests Test 11/22/16 02:02 11/22/16 08:35 11/22/16 12:23 11/22/16 17:40 Bedside Glucose 231 H 118 125 131 Medications Medications Current Medications Ondansetron HCl (Zofran Inj) 4 mg Q6H PRN IV NAUSEA AND/OR VOMITING Last administered on 11/19/16 18:38; Admin Dose 4 MG; Start 11/14/16 at 00:30 Acetaminophen (Tylenol Tab) 650 mg Q6H PRN PO PAIN LEVEL 1-3 OR FEVER Last administered on 11/19/16 18:38; Admin Dose 650 MG; Start 11/14/16 at 00:30 Acetaminophen/ Hydrocodone Bitart ([place] (5/325)) 1 tab Q6H PRN PO MODERATE PAIN LEVEL 4-6 Last administered on 11/17/16 20:02; Admin Dose 1 TAB; Start at 00:30 Morphine Sulfate (morphine) 2 mg Q4H PRN IV SEVERE PAIN LEVEL 7-10 Last administered on 11/22/16 15:33; Admin Dose 2 MG; Start 11/14/16 at 00:30 Alprazolam (Xanax) 0.25 mg Q8H PRN PO ANXIETY Last administered on 11/22/16 17: 41; Admin Dose 0.25 MG; Start 11/14/16 at 00:30 Bisacodyl (Dulcolax) 10 mg DAILY PRN PO CONSTIPATION; Start 11/14/16 at 00:30 Finasteride (Proscar) 5 mg DAILY PO Last administered on 11/22/16 08:39; Admin Dose 5 MG; Start 11/14/16 at 09:00 Levothyroxine Sodium (Synthroid) 75 mcg DAILY@06 PO Last administered on 05:30; Admin Dose 75 MCG; Start 11/14/16 at 06:00 Morphine Sulfate (Ms Contin (Er)) 15 mg Q12 PO Last administered on 11/22/16 22 :16; Admin Dose 15 MG; Start 11/14/16 at 09:00 Pantoprazole (Protonix Tab) 40 mg DAILY@06 PO Last administered on 11/22/16 05: 29; Admin Dose 40 MG; Start 11/14/16 at 06:00 Simethicone (Mylicon) 80 mg Q6H PRN PO DISTENSION/GAS/BLOATING; Start 11/14/16 at 00:30 Tamsulosin HCl (Flomax) 0.4 mg HS PO Last administered on 11/22/16 22:16; Admin Dose 0.4 MG; Start 11/14/16 at 21:00 Miscellaneous Information 1 ea NOTE XX ; Start 11/14/16 at 01:00 Glucose (Glutose) 15 gm Q15M PRN PO DECREASED GLUCOSE; Start 11/14/16 at 01:00 Glucose (Glutose) 22.5 gm Q15M PRN PO DECREASED GLUCOSE; Start 11/14/16 at 01: 00 Dextrose (D50w Syringe) 25 ml Q15M PRN IV DECREASED GLUCOSE Last administered on 11/17/16 17:41; Admin Dose 25 ML; Start 11/14/16 at 01:00 Dextrose (D50w Syringe) 50 ml Q15M PRN IV DECREASED GLUCOSE; Start 11/14/16 at 01:00 Glucagon (Glucagen) 1 mg Q15M PRN IM DECREASED GLUCOSE; Start 11/14/16 at 01:00 Glucose (Glutose) 15 gm Q15M PRN BUCCAL DECREASED GLUCOSE; Start 11/14/16 at 01 :00 Diagnostic Test (Pha) (Accu-Chek) 1 ea 02 XX Last administered on 11/17/16 02: 00; Admin Dose 1 EA; Start 11/15/16 at 02:00 Hydralazine HCl (Apresoline) 50 mg TID PO Last administered on 11/21/16 21:06 ; Admin Dose 50 MG; Start 11/16/16 at 09:00 Nifedipine (Procardia Xl) 90 mg BID PO Last administered on 11/22/16 21:00; Admin Dose 90 MG; Start 11/21/16 at 09:00 Loperamide HCl (Imodium Cap) 2 mg Q4H PRN PO DIARRHEA Last administered on 17:41; Admin Dose 2 MG; Start 11/22/16 at 16:00 Docusate Sodium (Colace) 200 mg DAILY PRN PO CONSTIPATION; Start 11/22/16 at 16: 30 Magnesium Hydroxide (Milk Of Mag) 30 ml DAILY PRN PO CONSTIPATION; Start at 16:30 BHUMI CONRAD MD Nov 22, 2016 22:28
[2016-11-23] VITALS (7 sets, daily range): BP systolic 138–193; BP diastolic 71–87; PULSE 58–66; RESP 16–21
[2016-11-23] MEDS: ACCU-CHEK XX SCH (02:00)
[2016-11-23] MEDS: LEVOTHYROXINE 75 MCG TAB PO SCH (04:42)
[2016-11-23] MEDS: PANTOPRAZOLE (EC) 40 MG TAB PO SCH (04:42)
[2016-11-23] MEDS: morphine 2 MG INJ IV PRN (05:37)
[2016-11-23] MEDS: INSULIN ASPART [NOVOLOG] 3 ML PEN SC SCH ×4 (08:00→20:17)
[2016-11-23] MEDS: SEVELAMER 800 MG TAB PO SCH ×3 (08:36→17:51)
[2016-11-23] MEDS: ALPRAZOLAM 0.25 MG TAB PO PRN ×2 (08:37→18:53)
[2016-11-23] MEDS: FINASTERIDE 5 MG TAB PO SCH (08:37)
[2016-11-23] MEDS: morphine (ER) 15 MG TAB PO SCH ×2 (08:38→20:18)
[2016-11-23] MEDS: NIFEdipine (XL) 90 MG TAB PO SCH ×2 (08:52→20:19)
[2016-11-23] MEDS ORDERED: MAGNESIUM HYDROXIDE 30ML CUP PO SCH (09:00)
[2016-11-23] MEDS ORDERED: DOCUSATE SODIUM 100 MG CAP PO SCH (09:00)
--- NOTE | 2016-11-23 12:06 | PN ---
Date/Time of Note Date/Time of Note DATE: 11/23/16 TIME: 12:04 Assessment/Plan Lines/Catheters IV Catheter Type (from [facility]): Saline Lock Urinary Cath still in place: No Assessment/Plan Chief Complaint/Hosp Course 1. end-stage renal disease. -cont intermittent hd, HD tomorrow -[facility] 2. access -s/p avf, and permacath 3. Hyperkalemia secondary to chronic kidney disease and end-stage renal disease. -resolved . 4. Mineral bone disorder. Monitor calcium and phosphorus levels. 5. Volume overload secondary to acute kidney injury and congestive heart failure. The patient is improving. Will continue ultrafiltration dialysis. 6. Acute respiratory failure secondary to congestive heart failure. Continue ultrafiltration with dialysis. 7. History of BPH. Continue medical management. Problems: Subjective 24 Hr Interval Summary Free Text/Dictation pt stable no events overnight Exam/Review of Systems Vital Signs Vitals Vital Signs Date Time Temp Pulse Resp B/P Pulse Ox O2 Delivery O2 Flow Rate FiO2 11/22/16 21:43 97.8 65 19 104/60 97 Intake and Output 11/22/16 11/22/16 11/23/16 14:59 22:59 06:59 Intake Total 1150 ml 250 ml Output Total 2200 ml 300 ml Balance -1050 ml -50 ml Exam HEENT: Head is normocephalic. Pupils are reactive to light. NECK: Supple. HEART: Regular rate. LUNGS: Show diminished breath sounds at the base. ABDOMEN: Soft, nontender to palpation. No rebound or guarding. EXTREMITIES: Negative for clubbing, cyanosis. No edema. DERMATOLOGIC: No rashes. MUSCULOSKELETAL: No joint effusions. NEUROLOGIC: No change in exam. Results Result Diagram: 11/21/16 0710 11/21/16 0710 Results 24 hrs Laboratory Tests Test 11/22/16 12:23 11/22/16 17:40 11/22/16 22:14 11/23/16 05:31 Bedside Glucose 125 131 148 Lab Scanned Report BLOOD TRANSFUSION Test 11/23/16 08:29 Bedside Glucose 116 Medications Medications Current Medications Ondansetron HCl (Zofran Inj) 4 mg Q6H PRN IV NAUSEA AND/OR VOMITING Last administered on 11/19/16t 18:38; Admin Dose 4 MG; Start 11/14/16 at 00:30 Acetaminophen (Tylenol Tab) 650 mg Q6H PRN PO PAIN LEVEL 1-3 OR FEVER Last administered on 11/19/16 18:38; Admin Dose 650 MG; Start 11/14/16 at 00:30 Acetaminophen/ Hydrocodone Bitart ([place] (5/325)) 1 tab Q6H PRN PO MODERATE PAIN LEVEL 4-6 Last administered on 11/17/16 20:02; Admin Dose 1 TAB; Start at 00:30 Morphine Sulfate (morphine) 2 mg Q4H PRN IV SEVERE PAIN LEVEL 7-10 Last administered on 11/23/16 05:37; Admin Dose 2 MG; Start 11/14/16 at 00:30 Alprazolam (Xanax) 0.25 mg Q8H PRN PO ANXIETY Last administered on 11/23/16 08: 37; Admin Dose 0.25 MG; Start 11/14/16 at 00:30 Bisacodyl (Dulcolax) 10 mg DAILY PRN PO CONSTIPATION; Start 11/14/16 at 00:30 Finasteride (Proscar) 5 mg DAILY PO Last administered on 11/23/16 08:37; Admin Dose 5 MG; Start 11/14/16 at 09:00 Levothyroxine Sodium (Synthroid) 75 mcg DAILY@06 PO Last administered on 04:42; Admin Dose 75 MCG; Start 11/14/16 at 06:00 Morphine Sulfate (Ms Contin (Er)) 15 mg Q12 PO Last administered on 11/22/16 22 :16; Admin Dose 15 MG; Start 11/14/16 at 09:00 Pantoprazole (Protonix Tab) 40 mg DAILY@06 PO Last administered on 11/23/16 04: 42; Admin Dose 40 MG; Start 11/14/16 at 06:00 Simethicone (Mylicon) 80 mg Q6H PRN PO DISTENSION/GAS/BLOATING; Start 11/14/16 at 00:30 Tamsulosin HCl (Flomax) 0.4 mg HS PO Last administered on 11/22/16 22:16; Admin Dose 0.4 MG; Start 11/14/16 at 21:00 Miscellaneous Information 1 ea NOTE XX ; Start 11/14/16 at 01:00 Glucose (Glutose) 15 gm Q15M PRN PO DECREASED GLUCOSE; Start 11/14/16 at 01:00 Glucose (Glutose) 22.5 gm Q15M PRN PO DECREASED GLUCOSE; Start 11/14/16 at 01: 00 Dextrose (D50w Syringe) 25 ml Q15M PRN IV DECREASED GLUCOSE Last administered on 11/17/16 17:41; Admin Dose 25 ML; Start 11/14/16 at 01:00 Dextrose (D50w Syringe) 50 ml Q15M PRN IV DECREASED GLUCOSE; Start 11/14/16 at 01:00 Glucagon (Glucagen) 1 mg Q15M PRN IM DECREASED GLUCOSE; Start 11/14/16 at 01:00 Glucose (Glutose) 15 gm Q15M PRN BUCCAL DECREASED GLUCOSE; Start 11/14/16 at 01 :00 Diagnostic Test (Pha) (Accu-Chek) 1 ea 02 XX Last administered on 11/17/16 02: 00; Admin Dose 1 EA; Start 11/15/16 at 02:00 Hydralazine HCl (Apresoline) 50 mg TID PO Last administered on 11/23/16 08:37; Admin Dose 50 MG; Start 11/16/16 at 09:00 Nifedipine (Procardia Xl) 90 mg BID PO Last administered on 11/23/16 08:52; Admin Dose 90 MG; Start 11/21/16 at 09:00 Loperamide HCl (Imodium Cap) 2 mg Q4H PRN PO DIARRHEA Last administered on 17:41; Admin Dose 2 MG; Start 11/22/16 at 16:00 Docusate Sodium (Colace) 200 mg DAILY PRN PO CONSTIPATION; Start 11/22/16 at 16: 30 Magnesium Hydroxide (Milk Of Mag) 30 ml DAILY PRN PO CONSTIPATION; Start at 16:30 NAE MENDOZA DO Nov 23, 2016 12:05
--- NOTE | 2016-11-23 15:27 | PN ---
Date/Time of Note Date/Time of Note DATE: 11/23/16 TIME: 15:24 Assessment/Plan VTE Prophylaxis VTE Prophylaxis Intervention: SCD's Lines/Catheters IV Catheter Type (from Nrs): Saline Lock Urinary Cath still in place: No Assessment/Plan Assessment/Plan 1. Acute on CKD, now ESRD 2. Hyperkalemia 3. History of Lumbar spine osteomyelitis and Epidural abscess s/p Decompressive laminectomy and abscess evacuation 06/2016 4. History of Pyelonephritis 5. Hx of Diabetes, but pt has been hypoglycemic 6. Hypothyroidism. 7. 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 8. Benign prostatic hypertrophy. PLAN BP has been high, c/o dizziness, high, pt is already on Nifedipine 90mg PO BID - will start Po hydralazine if continue to remain High BP s/p permacath, s/p AVF Outpatient HD placement as per Nephrology-set up at [facility] nephrology and Vascular surgery help will wait for stable BP before sending to SNF Subjective 24 Hr Interval Summary Free Text/Dictation c/o dizziness, heache, BP high, dose not want to get discharged Exam/Review of Systems Vital Signs Vitals Vital Signs Date Time Temp Pulse Resp B/P Pulse Ox O2 Delivery O2 Flow Rate FiO2 11/23/16 12:35 66 16 176/86 11/23/16 07:25 98.3 97 Intake and Output 11/22/16 11/22/16 11/23/16 15:00 23:00 07:00 Intake Total 1150 ml 250 ml Output Total 2200 ml 300 ml Balance -1050 ml -50 ml Exam HEENT: Head is normocephalic. Pupils are reactive to light. NECK: Supple.no JVD, no LAD HEART: S1 S2 RRR no murmur LUNGS: Show diminished breath sounds at the base. ABDOMEN: Soft, nontender to palpation. No rebound or guarding. EXTREMITIES: Negative for clubbing, cyanosis. No edema. DERMATOLOGIC: No rashes. MUSCULOSKELETAL: No joint effusions. NEUROLOGIC: No change in exam. Results Result Diagram: 11/21/16 0710 11/21/16 0710 Results 24 hrs Laboratory Tests Test 11/22/16 17:40 11/22/16 22:14 11/23/16 05:31 11/23/16 08:29 Bedside Glucose 131 148 116 Lab Scanned Report BLOOD TRANSFUSION Test 11/23/16 12:20 Bedside Glucose 106 Medications Medications Current Medications Ondansetron HCl (Zofran Inj) 4 mg Q6H PRN IV NAUSEA AND/OR VOMITING Last administered on 11/19/16 18:38; Admin Dose 4 MG; Start 11/14/16 at 00:30 Acetaminophen (Tylenol Tab) 650 mg Q6H PRN PO PAIN LEVEL 1-3 OR FEVER Last administered on 11/19/16 18:38; Admin Dose 650 MG; Start 11/14/16 at 00:30 Acetaminophen/ Hydrocodone Bitart ([place] (5/325)) 1 tab Q6H PRN PO MODERATE PAIN LEVEL 4-6 Last administered on 11/17/16 20:02; Admin Dose 1 TAB; Start at 00:30 Morphine Sulfate (morphine) 2 mg Q4H PRN IV SEVERE PAIN LEVEL 7-10 Last administered on 11/23/16 05:37; Admin Dose 2 MG; Start 11/14/16 at 00:30 Alprazolam (Xanax) 0.25 mg Q8H PRN PO ANXIETY Last administered on 11/23/16 08: 37; Admin Dose 0.25 MG; Start 11/14/16 at 00:30 Bisacodyl (Dulcolax) 10 mg DAILY PRN PO CONSTIPATION; Start 11/14/16 at 00:30 Finasteride (Proscar) 5 mg DAILY PO Last administered on 11/23/16 08:37; Admin Dose 5 MG; Start 11/14/16 at 09:00 Levothyroxine Sodium (Synthroid) 75 mcg DAILY@06 PO Last administered on 04:42; Admin Dose 75 MCG; Start 11/14/16 at 06:00 Morphine Sulfate (Ms Contin (Er)) 15 mg Q12 PO Last administered on 11/22/16 22 :16; Admin Dose 15 MG; Start 11/14/16 at 09:00 Pantoprazole (Protonix Tab) 40 mg DAILY@06 PO Last administered on 11/23/16 04: 42; Admin Dose 40 MG; Start 11/14/16 at 06:00 Simethicone (Mylicon) 80 mg Q6H PRN PO DISTENSION/GAS/BLOATING; Start 11/14/16 at 00:30 Tamsulosin HCl (Flomax) 0.4 mg HS PO Last administered on 11/22/16 22:16; Admin Dose 0.4 MG; Start 11/14/16 at 21:00 Miscellaneous Information 1 ea NOTE XX ; Start 11/14/16 at 01:00 Glucose (Glutose) 15 gm Q15M PRN PO DECREASED GLUCOSE; Start 11/14/16 at 01:00 Glucose (Glutose) 22.5 gm Q15M PRN PO DECREASED GLUCOSE; Start 11/14/16 at 01: 00 Dextrose (D50w Syringe) 25 ml Q15M PRN IV DECREASED GLUCOSE Last administered on 11/17/16 17:41; Admin Dose 25 ML; Start 11/14/16 at 01:00 Dextrose (D50w Syringe) 50 ml Q15M PRN IV DECREASED GLUCOSE; Start 11/14/16 at 01:00 Glucagon (Glucagen) 1 mg Q15M PRN IM DECREASED GLUCOSE; Start 11/14/16 at 01:00 Glucose (Glutose) 15 gm Q15M PRN BUCCAL DECREASED GLUCOSE; Start 11/14/16 at 01 :00 Diagnostic Test (Pha) (Accu-Chek) 1 ea 02 XX Last administered on 11/17/16 02: 00; Admin Dose 1 EA; Start 11/15/16 at 02:00 Hydralazine HCl (Apresoline) 50 mg TID PO Last administered on 11/23/16 12:37; Admin Dose 50 MG; Start 11/16/16 at 09:00 Nifedipine (Procardia Xl) 90 mg BID PO Last administered on 11/23/16 08:52; Admin Dose 90 MG; Start 11/21/16 at 09:00 Loperamide HCl (Imodium Cap) 2 mg Q4H PRN PO DIARRHEA Last administered on 17:41; Admin Dose 2 MG; Start 11/22/16 at 16:00 Docusate Sodium (Colace) 200 mg DAILY PRN PO CONSTIPATION; Start 11/22/16 at 16: 30 Magnesium Hydroxide (Milk Of Mag) 30 ml DAILY PRN PO CONSTIPATION; Start at 16:30 BHUMI CONRAD MD Nov 23, 2016 15:26
[2016-11-23] MEDS: LOPERAMIDE 2 MG CAP PO PRN (15:34)
[2016-11-23] MEDS ORDERED: hydrALAzine 20 MG INJ IV PRN (16:00)
[2016-11-23] MEDS: TAMSULOSIN (SR) 0.4 MG CAP PO SCH (20:19)
[2016-11-24] VITALS (11 sets, daily range): BP systolic 71–132; BP diastolic 50–71; PULSE 54–60; RESP 16–18
[2016-11-24] MEDS: ACCU-CHEK XX SCH (01:14)
[2016-11-24] MEDS: PANTOPRAZOLE (EC) 40 MG TAB PO SCH (05:04)
[2016-11-24] MEDS: LEVOTHYROXINE 75 MCG TAB PO SCH (05:04)
[2016-11-24 06:16] LABS: BASOPHILS % 0.6 % (0.0-2.0); EOSINOPHILS # 0.1 10^3/ul (0.0-0.5); EOSINOPHILS % 1.7 % (0.0-7.0); HEMOGLOBIN 8.2 g/dl (14.0-18.0); LYMPHOCYTES % 19.1 % (15.0-51.0); MEAN CORPUSCULAR HEMOGLOBIN 30.1 pg (29.0-33.0); MEAN CORPUSCULAR HGB CONC 34.2 g/dl (32.0-37.0); MEAN CORPUSCULAR VOLUME 88.2 fl (82.0-101.0); MEAN PLATELET VOLUME 9.9 fl (7.4-10.4); MONOCYTE # 0.5 10^3/ul (0.3-0.9); MONOCYTES % 9.8 % (0.0-11.0); NEUTROPHIL # 3.6 10^3/ul (1.6-7.5); NEUTROPHILS % 68.6 % (39.0-77.0); PLATELET COUNT 128 10^3/UL (140-415); RED BLOOD COUNT 2.72 10^6/ul (4.70-6.10); RED CELL DISTRIBUTION WIDTH 14.9 % (11.5-14.5); WHITE BLOOD COUNT 5.3 10^3/ul (4.8-10.8)
[2016-11-24 06:42] LABS: CALCIUM 7.3 mg/dl (8.4-10.2); CREATININE 1.83 mg/dl (0.61-1.24); MAGNESIUM 2.5 mg/dl (1.7-2.5); PHOSPHORUS 2.9 mg/dl (2.5-4.9); POTASSIUM 4.3 mmol/L (3.5-5.1)
[2016-11-24] MEDS: ALPRAZOLAM 0.25 MG TAB PO PRN (07:35)
[2016-11-24] MEDS: SEVELAMER 800 MG TAB PO SCH ×3 (07:35→17:36)
[2016-11-24] MEDS: INSULIN ASPART [NOVOLOG] 3 ML PEN SC SCH ×4 (07:39→20:21)
[2016-11-24] MEDS: FINASTERIDE 5 MG TAB PO SCH (09:00)
[2016-11-24] MEDS: morphine (ER) 15 MG TAB PO SCH ×2 (09:00→20:15)
[2016-11-24] MEDS: NIFEdipine (XL) 90 MG TAB PO SCH ×2 (09:00→20:18)
[2016-11-24] MEDS: ACETAMINOPHEN 325 MG TAB PO PRN (12:03)
[2016-11-24] MEDS: EPOETIN 10000 UNITS/1 ML INJ (ESRD) SC SCH (12:06)
--- NOTE | 2016-11-24 12:22 | PN ---
Date/Time of Note Date/Time of Note DATE: 11/24/16 TIME: 12:22 Assessment/Plan Lines/Catheters IV Catheter Type (from [facility]): Saline Lock Urinary Cath still in place: No Assessment/Plan Chief Complaint/Hosp Course 1. end-stage renal disease. -cont intermittent hd, HD to today -arrange for outpt hd at [facility] 2. access -s/p avf, and permacath 3. Hyperkalemia secondary to chronic kidney disease and end-stage renal disease. -resolved . 4. Mineral bone disorder. Monitor calcium and phosphorus levels. 5. Volume overload secondary to acute kidney injury and congestive heart failure. The patient is improving. Will continue ultrafiltration dialysis. 6. Acute respiratory failure secondary to congestive heart failure. Continue ultrafiltration with dialysis. 7. History of BPH. Continue medical management. Problems: Subjective 24 Hr Interval Summary Free Text/Dictation Patient stable no events overnight Exam/Review of Systems Vital Signs Vitals Vital Signs Date Time Temp Pulse Resp B/P Pulse Ox O2 Delivery O2 Flow Rate FiO2 11/24/16 12:17 58 16 99/55 11/24/16 08:22 97.4 98 11/23/16 15:29 Room Air Intake and Output 11/23/16 11/23/16 11/24/16 15:00 23:00 07:00 Intake Total 770 ml 700 ml Output Total 700 ml Balance 770 ml 0 ml Exam HEENT: Head is normocephalic. Pupils are reactive to light. NECK: Supple. HEART: Regular rate. LUNGS: Show diminished breath sounds at the base. ABDOMEN: Soft, nontender to palpation. No rebound or guarding. EXTREMITIES: Negative for clubbing, cyanosis. No edema. DERMATOLOGIC: No rashes. MUSCULOSKELETAL: No joint effusions. NEUROLOGIC: No change in exam. Results Result Diagram: 11/24/16 0436 11/24/16 0430 Results 24 hrs Laboratory Tests Test 11/23/16 17:50 11/23/16 20:13 11/24/16 04:30 11/24/16 04:36 Bedside Glucose 100 100 Sodium Level 131 L Potassium Level 4.3 Chloride Level 99 Carbon Dioxide Level 28 Anion Gap 8 Blood Urea Nitrogen 29 H Creatinine 1.83 H Glucose Level 77 Calcium Level 7.3 L Phosphorus Level 2.9 Magnesium Level 2.5 White Blood Count 5.3 # Red Blood Count 2.72 L Hemoglobin 8.2 L Hematocrit 24.0 L Mean Corpuscular Volume 88.2 Mean Corpuscular Hemoglobin 30.1 Mean Corpuscular Hemoglobin Concent 34.2 Red Cell Distribution Width 14.9 H Platelet Count 128 #L Mean Platelet Volume 9.9 Neutrophils % 68.6 Lymphocytes % 19.1 Monocytes % 9.8 Eosinophils % 1.7 Basophils % 0.6 Nucleated Red Blood Cells % 0.0 Neutrophils # 3.6 Lymphocytes # 1.0 Monocytes # 0.5 Eosinophils # 0.1 Basophils # 0.0 Nucleated Red Blood Cells # 0.0 Test 11/24/16 07:38 11/24/16 11:59 Bedside Glucose 106 156 Medications Medications Current Medications Ondansetron HCl (Zofran Inj) 4 mg Q6H PRN IV NAUSEA AND/OR VOMITING Last administered on 11/19/16 18:38; Admin Dose 4 MG; Start 11/14/16 at 00:30 Acetaminophen (Tylenol Tab) 650 mg Q6H PRN PO PAIN LEVEL 1-3 OR FEVER Last administered on 11/24/16 12:03; Admin Dose 650 MG; Start 11/14/16 at 00:30 Acetaminophen/ Hydrocodone Bitart ([place] (5/325)) 1 tab Q6H PRN PO MODERATE PAIN LEVEL 4-6 Last administered on 11/17/16 20:02; Admin Dose 1 TAB; Start at 00:30 Morphine Sulfate (morphine) 2 mg Q4H PRN IV SEVERE PAIN LEVEL 7-10 Last administered on 11/23/16 05:37; Admin Dose 2 MG; Start 11/14/16 at 00:30 Alprazolam (Xanax) 0.25 mg Q8H PRN PO ANXIETY Last administered on 11/24/16 07: 35; Admin Dose 0.25 MG; Start 11/14/16 at 00:30 Bisacodyl (Dulcolax) 10 mg DAILY PRN PO CONSTIPATION; Start 11/14/16 at 00:30 Finasteride (Proscar) 5 mg DAILY PO Last administered on 11/23/16 08:37; Admin Dose 5 MG; Start 11/14/16 at 09:00 Levothyroxine Sodium (Synthroid) 75 mcg DAILY@06 PO Last administered on 05:04; Admin Dose 75 MCG; Start 11/14/16 at 06:00 Morphine Sulfate (Ms Contin (Er)) 15 mg Q12 PO Last administered on 11/22/16 22 :16; Admin Dose 15 MG; Start 11/14/16 at 09:00 Pantoprazole (Protonix Tab) 40 mg DAILY@06 PO Last administered on 11/24/16 05: 04; Admin Dose 40 MG; Start 11/14/16 at 06:00 Simethicone (Mylicon) 80 mg Q6H PRN PO DISTENSION/GAS/BLOATING; Start 11/14/16 at 00:30 Tamsulosin HCl (Flomax) 0.4 mg HS PO Last administered on 11/23/16 20:19; Admin Dose 0.4 MG; Start 11/14/16 at 21:00 Miscellaneous Information 1 ea NOTE XX ; Start 11/14/16 at 01:00 Glucose (Glutose) 15 gm Q15M PRN PO DECREASED GLUCOSE; Start 11/14/16 at 01:00 Glucose (Glutose) 22.5 gm Q15M PRN PO DECREASED GLUCOSE; Start 11/14/16 at 01: 00 Dextrose (D50w Syringe) 25 ml Q15M PRN IV DECREASED GLUCOSE Last administered on 11/17/16 17:41; Admin Dose 25 ML; Start 11/14/16 at 01:00 Dextrose (D50w Syringe) 50 ml Q15M PRN IV DECREASED GLUCOSE; Start 11/14/16 at 01:00 Glucagon (Glucagen) 1 mg Q15M PRN IM DECREASED GLUCOSE; Start 11/14/16 at 01:00 Glucose (Glutose) 15 gm Q15M PRN BUCCAL DECREASED GLUCOSE; Start 11/14/16 at 01 :00 Diagnostic Test (Pha) (Accu-Chek) 1 ea 02 XX Last administered on 11/17/16 02: 00; Admin Dose 1 EA; Start 11/15/16 at 02:00 Hydralazine HCl (Apresoline) 50 mg TID PO Last administered on 11/23/16 20:19; Admin Dose 50 MG; Start 11/16/16 at 09:00 Nifedipine (Procardia Xl) 90 mg BID PO Last administered on 11/23/16 20:19; Admin Dose 90 MG; Start 11/21/16 at 09:00 Loperamide HCl (Imodium Cap) 2 mg Q4H PRN PO DIARRHEA Last administered on 15:34; Admin Dose 2 MG; Start 11/22/16 at 16:00 Docusate Sodium (Colace) 200 mg DAILY PRN PO CONSTIPATION; Start 11/22/16 at 16: 30 Magnesium Hydroxide (Milk Of Mag) 30 ml DAILY PRN PO CONSTIPATION; Start at 16:30 Hydralazine HCl (Apresoline) 20 mg Q6H PRN IV SBP>160 mmHg Last administered on 11/23/16 16:14; Admin Dose 20 MG; Start 11/23/16 at 16:00 NAE MENDOZA DO Nov 24, 2016 12:22
--- NOTE | 2016-11-24 13:47 | PN ---
Date/Time of Note Date/Time of Note DATE: 11/24/16 TIME: 13:43 Assessment/Plan VTE Prophylaxis VTE Prophylaxis Intervention: LMWH Lines/Catheters IV [facility]from [facility] Saline Lock Urinary Cath still in place: No Assessment/Plan Chief Complaint/Hosp Course S- no events; ++ diarrhea; but no vomiting/fever/or abd pain. no gib O- vss PE no pallor/jvd reg s12s2 no m r g ctab bs + nt nd; no r r g no edema A/P 1. Acute Renal Failure; stable, cont HD at [facility]; sp avf. DC back to snf. 2. Ftt 3. Dm/ htn/ met syn 4. Anemia 5. Depression? 6. Hypothyroidism 7. Benign diarrhea 8. HCV 9. Bph 10. Ho C diff 11. Ho spinal OM Problems: Exam/Review of Systems Vital Signs Vitals Vital Signs Date Time Temp Pulse Resp B/P Pulse Ox O2 Delivery O2 Flow Rate FiO2 11/24/16 12:17 58 16 99/55 11/24/16 08:22 97.4 98 11/23/16 15:29 Room Air Intake and Output 11/23/16 11/23/16 11/24/16 15:00 23:00 07:00 Intake Total 770 ml 700 ml Output Total 700 ml Balance 770 ml 0 ml Results Result Diagram: 11/24/16 0436 11/24/16 0430 Results 24 hrs Laboratory Tests Test 11/23/16 17:50 11/23/16 20:13 11/24/16 04:30 11/24/16 04:36 Bedside Glucose 100 100 Sodium Level 131 L Potassium Level 4.3 Chloride Level 99 Carbon Dioxide Level 28 Anion Gap 8 Blood Urea Nitrogen 29 H Creatinine 1.83 H Glucose Level 77 Calcium Level 7.3 L Phosphorus Level 2.9 Magnesium Level 2.5 White Blood Count 5.3 # Red Blood Count 2.72 L Hemoglobin 8.2 L Hematocrit 24.0 L Mean Corpuscular Volume 88.2 Mean Corpuscular Hemoglobin 30.1 Mean Corpuscular Hemoglobin Concent 34.2 Red Cell Distribution Width 14.9 H Platelet Count 128 #L Mean Platelet Volume 9.9 Neutrophils % 68.6 Lymphocytes % 19.1 Monocytes % 9.8 Eosinophils % 1.7 Basophils % 0.6 Nucleated Red Blood Cells % 0.0 Neutrophils # 3.6 Lymphocytes # 1.0 Monocytes # 0.5 Eosinophils # 0.1 Basophils # 0.0 Nucleated Red Blood Cells # 0.0 Test 11/24/16 07:38 11/24/16 11:59 Bedside Glucose 106 156 Medications Medications Current Medications Ondansetron HCl (Zofran Inj) 4 mg Q6H PRN IV NAUSEA AND/OR VOMITING Last administered on 11/19/16 18:38; Admin Dose 4 MG; Start 11/14/16 at 00:30 Acetaminophen (Tylenol Tab) 650 mg Q6H PRN PO PAIN LEVEL 1-3 OR FEVER Last administered on 11/24/16 12:03; Admin Dose 650 MG; Start 11/14/16 at 00:30 Acetaminophen/ Hydrocodone Bitart ([place] (5/325)) 1 tab Q6H PRN PO MODERATE PAIN LEVEL 4-6 Last administered on 11/17/16 20:02; Admin Dose 1 TAB; Start at 00:30 Morphine Sulfate (morphine) 2 mg Q4H PRN IV SEVERE PAIN LEVEL 7-10 Last administered on 11/23/16 05:37; Admin Dose 2 MG; Start 11/14/16 at 00:30 Alprazolam (Xanax) 0.25 mg Q8H PRN PO ANXIETY Last administered on 11/24/16 07: 35; Admin Dose 0.25 MG; Start 11/14/16 at 00:30 Bisacodyl (Dulcolax) 10 mg DAILY PRN PO CONSTIPATION; Start 11/14/16 at 00:30 Finasteride (Proscar) 5 mg DAILY PO Last administered on 11/23/16 08:37; Admin Dose 5 MG; Start 11/14/16 at 09:00 Levothyroxine Sodium (Synthroid) 75 mcg DAILY@06 PO Last administered on 05:04; Admin Dose 75 MCG; Start 11/14/16 at 06:00 Morphine Sulfate (Ms Contin (Er)) 15 mg Q12 PO Last administered on 11/22/16 22 :16; Admin Dose 15 MG; Start 11/14/16 at 09:00 Pantoprazole (Protonix Tab) 40 mg DAILY@06 PO Last administered on 11/24/16 05: 04; Admin Dose 40 MG; Start 11/14/16 at 06:00 Simethicone (Mylicon) 80 mg Q6H PRN PO DISTENSION/GAS/BLOATING; Start 11/14/16 at 00:30 Tamsulosin HCl (Flomax) 0.4 mg HS PO Last administered on 11/23/16 20:19; Admin Dose 0.4 MG; Start 11/14/16 at 21:00 Miscellaneous Information 1 ea NOTE XX ; Start 11/14/16 at 01:00 Glucose (Glutose) 15 gm Q15M PRN PO DECREASED GLUCOSE; Start 11/14/16 at 01:00 Glucose (Glutose) 22.5 gm Q15M PRN PO DECREASED GLUCOSE; Start 11/14/16 at 01: 00 Dextrose (D50w Syringe) 25 ml Q15M PRN IV DECREASED GLUCOSE Last administered on 11/17/16 17:41; Admin Dose 25 ML; Start 11/14/16 at 01:00 Dextrose (D50w Syringe) 50 ml Q15M PRN IV DECREASED GLUCOSE; Start 11/14/16 at 01:00 Glucagon (Glucagen) 1 mg Q15M PRN IM DECREASED GLUCOSE; Start 11/14/16 at 01:00 Glucose (Glutose) 15 gm Q15M PRN BUCCAL DECREASED GLUCOSE; Start 11/14/16 at 01 :00 Diagnostic Test (Pha) (Accu-Chek) 1 ea 02 XX Last administered on 11/17/16 02: 00; Admin Dose 1 EA; Start 11/15/16 at 02:00 Hydralazine HCl (Apresoline) 50 mg TID PO Last administered on 11/23/16 20:19; Admin Dose 50 MG; Start 11/16/16 at 09:00 Nifedipine (Procardia Xl) 90 mg BID PO Last administered on 11/23/16 20:19; Admin Dose 90 MG; Start 11/21/16 at 09:00 Loperamide HCl (Imodium Cap) 2 mg Q4H PRN PO DIARRHEA Last administered on 15:34; Admin Dose 2 MG; Start 11/22/16 at 16:00 Docusate Sodium (Colace) 200 mg DAILY PRN PO CONSTIPATION; Start 11/22/16 at 16: 30 Magnesium Hydroxide (Milk Of Mag) 30 ml DAILY PRN PO CONSTIPATION; Start at 16:30 Hydralazine HCl (Apresoline) 20 mg Q6H PRN IV SBP>160 mmHg Last administered on 11/23/16t 16:14; Admin Dose 20 MG; Start 11/23/16 at 16:00 JAN HEMPHILL MD Nov 24, 2016 13:47
--- NOTE | 2016-11-24 13:48 | PDOCDIS ---
Discharge Instructions DIAGNOSIS Discharge Diagnosis renal failure CONDITION Patient Condition: Stable HOME CARE INSTRUCTIONS: Special Diet: Renal Diet/ 1800 ada; lactose free ACTIVITY: Activity Restrictions: Slowly Increase Activity Rest between Activity Avoid heavy lifting Do not Drive Avoid Heavy Housework FOLLOW UP/APPOINTMENTS Follow-up Plan Dialysis at [facility] as scheduled Appt Dr Brown -1wk PCP 1wk AJN HEMPHILL MD Nov 24, 2016 13:48
--- NOTE | 2016-11-24 17:06 | DES ---
Date/Time of Note Date/Time of Note DATE: 11/24/16 TIME: 17:01 Discharge/ Summary Admission/Discharge Info Admit Date/Time Nov 14, 2016 at 00:35 Discharge Date/Time 11/24/16 Final Diagnosis Acute renal failure. Preliminary Cause of None Hx of Present Illness 56-year-old gentleman admitted with hyperkalemia. Hospital Course Evaluated and managed for renal failure hyperkalemia. Underwent dialysis. Presently also has an AV fistula. Stable and fit for discharge with outpatient dialysis-HD at [facility]. Deconditioning will go back to snf. Has lots of diarrhea probably multifactorial due to Renagel and antibiotics. No evidence of toxicity colitis. On as needed Imodium. A/P 1. Acute Renal Failure 2. Ftt 3. Dm/ htn/ met syn 4. Anemia 5. Depression? 6. Hypothyroidism 7. Benign diarrhea 8. HCV 9. Bph 10. Ho C diff 11. Ho spinal OM Diet: 1800 ADA Activity as tolerated Allergies none CODE STATUS full Condition stable Barriers to discharge placement Pending tests none Functional status. Awake alert agrees to plan of care DME pending Reason for admission renal failure Pending Labs/Cultures Laboratory Tests Test 11/23/16 17:50 11/23/16 20:13 11/24/16 04:30 11/24/16 04:36 Bedside Glucose 100mg/dL (70-220) 100mg/dL (70-220) Sodium Level 131mmol/L (135-144) Potassium Level 4.3mmol/L (3.5-5.1) Chloride Level 99mmol/L (97-110) Carbon Dioxide Level 28mmol/L (21-31) Anion Gap 8 (8-16) Blood Urea Nitrogen 29mg/dl (7-20) Creatinine 1.83mg/dl (0.61-1.24) Glucose Level 77mg/dl (70-220) Calcium Level 7.3mg/dl (8.4-10.2) Phosphorus Level 2.9mg/dl (2.5-4.9) Magnesium Level 2.5mg/dl (1.7-2.5) White Blood Count 5.310^3/ul (4.8-10.8) Red Blood Count 2.7210^6/ul (4.70-6.10) Hemoglobin 8.2g/dl (14.0-18.0) Hematocrit 24.0% (42.0-52.0) Mean Corpuscular Volume 88.2fl (82.0-101.0) Mean Corpuscular Hemoglobin 30.1pg (29.0-33.0) Mean Corpuscular Hemoglobin Concent 34.2g/dl (32.0-37.0) Red Cell Distribution Width 14.9% (11.5-14.5) Platelet Count 05152^3/UL (140-415) Mean Platelet Volume 9.9fl (7.4-10.4) Neutrophils % 68.6% (39.0-77.0) Lymphocytes % 19.1% (15.0-51.0) Monocytes % 9.8% (0.0-11.0) Eosinophils % 1.7% (0.0-7.0) Basophils % 0.6% (0.0-2.0) Nucleated Red Blood Cells % 0.0/100WBC (0.0-0.0) Neutrophils # 3.610^3/ul (1.6-7.5) Lymphocytes # 1.010^3/ul (0.8-2.9) Monocytes # 0.510^3/ul (0.3-0.9) Eosinophils # 0.110^3/ul (0.0-0.5) Basophils # 0.010^3/ul (0.0-0.1) Nucleated Red Blood Cells # 0.010^3/ul (0.0-0.0) Test 11/24/16 07:38 11/24/16 11:59 Bedside Glucose 106mg/dL (70-220) 156mg/dL (70-220) JAN HEMPHILL MD Nov 24, 2016 17:06
[2016-11-24] MEDS: TAMSULOSIN (SR) 0.4 MG CAP PO SCH (20:18)
[2016-11-25] MEDS: ACCU-CHEK XX SCH ×2 (02:00→20:18)
[2016-11-25] MEDS: PANTOPRAZOLE (EC) 40 MG TAB PO SCH (05:18)
[2016-11-25] MEDS: LEVOTHYROXINE 75 MCG TAB PO SCH (05:18)
[2016-11-25] MEDS: INSULIN ASPART [NOVOLOG] 3 ML PEN SC SCH ×4 (07:57→20:18)
[2016-11-25 08:00] VITALS: BP 105/59; RESP 16
[2016-11-25] MEDS: NIFEdipine (XL) 90 MG TAB PO SCH ×2 (08:45→20:19)
[2016-11-25] MEDS: FINASTERIDE 5 MG TAB PO SCH (08:48)
[2016-11-25] MEDS: morphine (ER) 15 MG TAB PO SCH ×4 (08:48→20:19)
[2016-11-25] MEDS: SEVELAMER 800 MG TAB PO SCH ×3 (08:48→17:25)
[2016-11-25] MEDS: ONDANSETRON 4 MG INJ IV PRN ×2 (08:58→17:25)
--- NOTE | 2016-11-25 10:19 | PN ---
Date/Time of Note Date/Time of Note DATE: 11/25/16 TIME: 10:18 Assessment/Plan Lines/Catheters IV Catheter Type (from [facility]): Saline Lock Urinary Cath still in place: No Assessment/Plan Chief Complaint/Hosp Course 1. end-stage renal disease. -cont intermittent hd, HD tomorrow -arr[facility] 2. access -s/p avf, and permacath 3. Hyperkalemia secondary to chronic kidney disease and end-stage renal disease. -resolved . 4. Mineral bone disorder. Monitor calcium and phosphorus levels. 5. Volume overload secondary to acute kidney injury and congestive heart failure. The patient is improving. Will continue ultrafiltration dialysis. 6. Acute respiratory failure secondary to congestive heart failure. Continue ultrafiltration with dialysis. 7. History of BPH. Continue medical management. Problems: Subjective 24 Hr Interval Summary Free Text/Dictation Patient stable no events overnight had dialysis yesterday Exam/Review of Systems Vital Signs Vitals Vital Signs Date Time Temp Pulse Resp B/P Pulse Ox O2 Delivery O2 Flow Rate FiO2 11/25/16 08:00 97.3 56 16 105/59 97 11/23/16 15:29 Room Air Intake and Output 11/24/16 11/24/16 11/25/16 15:00 23:00 07:00 Intake Total 500 ml 1120 ml 640 ml Output Total 1000 ml Balance -500 ml 1120 ml 640 ml Exam General: in no apparent distress. HEENT: Normocephalic, atraumatic. Eyes: Anicteric sclerae, conjunctivae clear. ENT: Nasal septum midline, oral mucosa moist. Neck supple, no JVD noticed. Respiratory: Bilaterally diminished breath sounds. No use of accessory muscles of respiration. Scattered rhonchi. Cardiovascular: S1, S2 heard. Regular rate and rhythm Abdomen: Soft, nontender, and nondistended. Bowel sounds positive in all 4 quadrants. Genitourinary: Deferred. Extremities: No cyanosis, no clubbing, no edema. Peripheral pulses palpable. Right knee joint pain on palpation. Neurologic: Cranial nerves II through XII grossly intact. The patient is awake, alert, and oriented. Skin: Normal skin turgor. No skin rashes Results Result Diagram: 11/24/16 0436 11/24/16 0430 Results 24 hrs Laboratory Tests Test 11/24/16 11:59 11/24/16:32 11/24/16 20:11 11/25/16 02:02 Bedside Glucose 156 199 195 187 Test 11/25/16 07:56 Bedside Glucose 126 Medications Medications Current Medications Ondansetron HCl (Zofran Inj) 4 mg Q6H PRN IV NAUSEA AND/OR VOMITING Last administered on 11/25/16 08:58; Admin Dose 4 MG; Start 11/14/16 at 00:30 Acetaminophen (Tylenol Tab) 650 mg Q6H PRN PO PAIN LEVEL 1-3 OR FEVER Last administered on 11/24/16 12:03; Admin Dose 650 MG; Start 11/14/16 at 00:30 Acetaminophen/ Hydrocodone Bitart ([place] (5/325)) 1 tab Q6H PRN PO MODERATE PAIN LEVEL 4-6 Last administered on 11/17/16 20:02; Admin Dose 1 TAB; Start at 00:30 Morphine Sulfate (morphine) 2 mg Q4H PRN IV SEVERE PAIN LEVEL 7-10 Last administered on 11/23/16 05:37; Admin Dose 2 MG; Start 11/14/16 at 00:30 Alprazolam (Xanax) 0.25 mg Q8H PRN PO ANXIETY Last administered on 11/24/16 07: 35; Admin Dose 0.25 MG; Start 11/14/16 at 00:30 Bisacodyl (Dulcolax) 10 mg DAILY PRN PO CONSTIPATION; Start 11/14/16 at 00:30 Finasteride (Proscar) 5 mg DAILY PO Last administered on 11/25/16 08:48; Admin Dose 5 MG; Start 11/14/16 at 09:00 Levothyroxine Sodium (Synthroid) 75 mcg DAILY@06 PO Last administered on 05:18; Admin Dose 75 MCG; Start 11/14/16 at 06:00 Morphine Sulfate (Ms Contin (Er)) 15 mg Q12 PO Last administered on 11/22/16 22 :16; Admin Dose 15 MG; Start 11/14/16 at 09:00 Pantoprazole (Protonix Tab) 40 mg DAILY@06 PO Last administered on 11/25/16 05: 18; Admin Dose 40 MG; Start 11/14/16 at 06:00 Simethicone (Mylicon) 80 mg Q6H PRN PO DISTENSION/GAS/BLOATING; Start 11/14/16 at 00:30 Tamsulosin HCl (Flomax) 0.4 mg HS PO Last administered on 11/24/16 20:18; Admin Dose 0.4 MG; Start 11/14/16 at 21:00 Miscellaneous Information 1 ea NOTE XX ; Start 11/14/16 at 01:00 Glucose (Glutose) 15 gm Q15M PRN PO DECREASED GLUCOSE; Start 11/14/16 at 01:00 Glucose (Glutose) 22.5 gm Q15M PRN PO DECREASED GLUCOSE; Start 11/14/16 at 01: 00 Dextrose (D50w Syringe) 25 ml Q15M PRN IV DECREASED GLUCOSE Last administered on 11/17/16 17:41; Admin Dose 25 ML; Start 11/14/16 at 01:00 Dextrose (D50w Syringe) 50 ml Q15M PRN IV DECREASED GLUCOSE; Start 11/14/16 at 01:00 Glucagon (Glucagen) 1 mg Q15M PRN IM DECREASED GLUCOSE; Start 11/14/16 at 01:00 Glucose (Glutose) 15 gm Q15M PRN BUCCAL DECREASED GLUCOSE; Start 11/14/16 at 01 :00 Diagnostic Test (Pha) (Accu-Chek) 1 ea 02 XX Last administered on 11/17/16 02: 00; Admin Dose 1 EA; Start 11/15/16 at 02:00 Hydralazine HCl (Apresoline) 50 mg TID PO Last administered on 11/23/16 20:19; Admin Dose 50 MG; Start 11/16/16 at 09:00 Nifedipine (Procardia Xl) 90 mg BID PO Last administered on 11/24/16 20:18; Admin Dose 90 MG; Start 11/21/16 at 09:00 Loperamide HCl (Imodium Cap) 2 mg Q4H PRN PO DIARRHEA Last administered on 15:34; Admin Dose 2 MG; Start 11/22/16 at 16:00 Docusate Sodium (Colace) 200 mg DAILY PRN PO CONSTIPATION; Start 11/22/16 at 16: 30 Magnesium Hydroxide (Milk Of Mag) 30 ml DAILY PRN PO CONSTIPATION; Start at 16:30 Hydralazine HCl (Apresoline) 20 mg Q6H PRN IV SBP>160 mmHg Last administered on 11/23/16t 16:14; Admin Dose 20 MG; Start 11/23/16 at 16:00 NAE MENDOZA DO Nov 25, 2016 10:19
--- NOTE | 2016-11-25 10:20 | DS ---
Date/Time of Note Date/Time of Note DATE: 11/25/16 TIME: 10:18 Discharge Summary Admission/Discharge Info Admit Date/Time Nov 14, 2016 at 00:35 Discharge Date/Time 11/25/16 Discharge Diagnosis renal failure Patient Condition: Stable Consults Dr. Stephanie Hanks of Present Illness 56-year-old gentleman admitted with hyperkalemia. Hospital Course Evaluated and managed for renal failure hyperkalemia. Underwent dialysis. Presently also has an AV fistula. Stable and fit for discharge with outpatient dialysis-HD at [facility]. Deconditioning will go back to snf. Has lots of diarrhea probably multifactorial due to Renagel and antibiotics. No evidence of toxicity/ colitis. On as needed Imodium. A/P 1. Acute Renal Failure 2. Ftt 3. Dm/ htn/ met syn 4. Anemia 5. Depression? 6. Hypothyroidism 7. Benign diarrhea 8. HCV 9. Bph 10. Ho C diff 11. Ho spinal OM Diet: 1800 ADA Activity as tolerated Allergies none CODE STATUS full Condition stable Barriers to discharge placement Pending tests none Functional status. Awake alert agrees to plan of care DME pending Reason for admission renal failure Home Meds Active Scripts Pantoprazole* (Pantoprazole*) 40 Mg Tablet., 40 MG PO DAILY@06 for 30 Days Prov:RANDY SCHNEIDER 10/29/16 Linagliptin (TRADJENTA) 5 Mg Tablet, 5 MG PO DAILY for 30 Days, TAB Prov:RANDY SCHNEIDER 10/29/16 Levothyroxine Sodium* (Synthroid*) 75 Mcg Tablet, 75 MCG PO DAILY@06 for 30 Days , TAB Prov:RANDY SCHNEIDER 10/29/16 Ferrous Sulfate* (Ferrous Sulfate*) 325 Mg Tabec, 325 MG PO BID, #60 TAB 2 Refills Prov:PHANI REYES 07/22/16 Reported Medications Dextrose (Glucose Gel) Unknown Strength Gel..gram., 22.5 GM PO Q15M Y for NEEDED FOR DECREASED GLUCOSE 11/13/16 Dextrose (Glucose) Unknown Strength Liquid, 15 GM PO Q15 MIN Y for NEEDED, TUB 11/13/16 Ondansetron Hcl* (Zofran*) 4 Mg Tablet, 4 MG PO Q6H Y for NAUSEA AND OR VOMITING , TAB 11/13/16 Acetaminophen* (Tylenol*) 500 Mg Tab, 1000 MG PO Q4H Y for FOR MODERATE PAIN 4-10, TAB 11/13/16 Acetaminophen* (Tylenol*) 325 Mg Tablet, 650 MG PO Q4H Y for MILD PAIN LEVEL 1-3 , TAB FOR FEVER 100 AND ABOVE 11/13/16 Hydrocodone/Acetaminophen ([place] 5-325 Tablet) 1 Each Tablet, 1 EACH PO Q6H, TAB 11/13/16 Zolpidem Tartrate* (Ambien*) 5 Mg Tablet, 5 MG PO QHS Y for INSOMNIA, #30 TAB 11/13/16 Alprazolam* (Xanax*) 0.25 Mg Tablet, 0.25 MG PO Q8H Y for ANXIETY, TAB 11/13/16 Cranberry Fruit (CRANBERRY) 450 Mg Tablet, 450 MG PO BID, TAB 11/13/16 Sod Phosphate/Sod Biphosphate* (Fleet* Enema Pediatric) 66.6 Ml Soln, 66.6 ML NC Q2 DAYS Y for CONSTIPATION, ENEMA 11/13/16 Bisacodyl* (Dulcolax*) 5 Mg Tablet.dr, 10 MG PO DAILY Y for CONSTIPATION, TAB 11/13/16 Magnesium Hydroxide* (Milk Of Magnesia*) 400 Mg/5 Ml Oral.susp, 30 ML PO DAILY, ML 11/13/16 Docusate Sodium* (Colace*) 100 Mg Capsule, 200 MG PO DAILY, #30 CAP 11/13/16 Tamsulosin Hcl* (Tamsulosin Hcl*) 0.4 Mg Cap.er.24h, 0.4 MG PO HS, CAP 11/13/16 Sevelamer Hcl* (Renagel*) 800 Mg Tablet, 1600 MG PO WITH MEALS, TAB 11/13/16 Nifedipine (Procardia Xl) 60 Mg Tab.er.24, 60 MG PO BID, TAB HOLD IF SBP<110 OR HR<60 11/13/16 Morphine Sulfate* (Ms Contin*) 15 Mg Tablet.sa, 15 MG PO Q12, TAB 11/13/16 Lactobacillus Acidoph/Bulgaricus* (Floranex*) 1 Each Tablet, 1 TAB.CHEW PO BID, TAB.CHEW 11/13/16 Hydralazine Hcl* (Apresoline*) 50 Mg Tab, 50 MG PO TID, #90 TAB HOLD IF SBP<110 OR HR<60 11/13/16 Furosemide* (Furosemide*) 40 Mg Tablet, 40 MG PO DAILY, TAB HOLD IF SBP<110 OR HR<60 11/13/16 Simethicone* (Anti-Gas/80*) 80 Mg Tab.chew, 80 MG PO Q6H Y for DISTENSION/GAS/ BLOATING, TAB.CHEW 09/01/16 Insulin Aspart* (Novolog Insulin Pen*) 100 Unit/Ml Soln, 0 SC .SLIDING SCALE AC , EA 0-150=0, 151-200=1 UNIT, 201-250=2 UNIT, 251-300=3 UNIT, 301-350=4 UNIT, 351-400=5 UNIT, .400=6 UNIT NOTIFY MD IF BS IS ABOVE 500 OR BELOW 70 09/01/16 Ergocalciferol (Vitamin D2) (VITAMIN D2) 50,000 Unit Capsule, 59473 UNIT PO ONCE , CAP every thursday07/10/16 Finasteride* (Finasteride*) 5 Mg Tablet, 5 MG PO DAILY, TAB 07/10/16 Discontinued Reported Medications Vancomycin Hcl (Vancocin Hcl Oral) 125 Mg Cap, 125 MG PO Q6, CAP FOR 10 DAYS; START DAY 11/06/16 11/13/16 Follow-up Plan Dr. Brown 2 weeks Dialysis as directed with [facility] dialysis Appointment primary 1 week PT/ OT social service eval and treat Primary Care Provider Not On Staff Doctor Pending Labs Laboratory Tests Test 11/24/16 11:59 11/24/16 17:32 11/24/16 20:11 11/25/16 02:02 Bedside Glucose 156mg/dL (70-220) 199mg/dL (70-220) 195mg/dL (70-220) 187mg/dL (70-220) Test 11/25/16 07:56 Bedside Glucose 126mg/dL (70-220) JAN HEMPHILL MD Nov 25, 2016 10:20
[2016-11-25] MEDS: ALPRAZOLAM 0.25 MG TAB PO PRN (14:26)
[2016-11-25] MEDS: LOPERAMIDE 2 MG CAP PO PRN (14:26)
[2016-11-25 20:15] VITALS: BP 148/76; RESP 18
[2016-11-25] MEDS: TAMSULOSIN (SR) 0.4 MG CAP PO SCH (20:19)
[2016-11-26] VITALS (11 sets, daily range): BP systolic 84–113; BP diastolic 48–62; PULSE 52–72; RESP 18–19
[2016-11-26] MEDS: HYDROCODONE/APAP (5/325) TAB PO PRN ×2 (01:29→17:23)
[2016-11-26] MEDS: PANTOPRAZOLE (EC) 40 MG TAB PO SCH (05:08)
[2016-11-26] MEDS: LEVOTHYROXINE 75 MCG TAB PO SCH (05:08)
[2016-11-26] MEDS: ALPRAZOLAM 0.25 MG TAB PO PRN ×2 (05:32→13:47)
[2016-11-26] MEDS: morphine (ER) 15 MG TAB PO SCH (09:18)
[2016-11-26] MEDS: INSULIN ASPART [NOVOLOG] 3 ML PEN SC SCH ×3 (09:20→17:20)
[2016-11-26] MEDS: FINASTERIDE 5 MG TAB PO SCH (09:22)
[2016-11-26] MEDS: SEVELAMER 800 MG TAB PO SCH ×3 (09:24→17:19)
[2016-11-26] MEDS: morphine 2 MG INJ IV PRN (10:12)
--- NOTE | 2016-11-26 10:25 | PN ---
Date/Time of Note Date/Time of Note DATE: 11/26/16 TIME: 10:24 Assessment/Plan Lines/Catheters IV Catheter Type (from [facility]): Johnathan catheter Urinary Cath still in place: No Assessment/Plan Chief Complaint/Hosp Course 1. end-stage renal disease. -cont intermittent hd, HD today -arrange for outpt hd at [facility] 2. access -s/p avf, and permacath 3. Hyperkalemia secondary to chronic kidney disease and end-stage renal disease. -resolved . 4. Mineral bone disorder. Monitor calcium and phosphorus levels. 5. Volume overload secondary to acute kidney injury and congestive heart failure. The patient is improving. Will continue ultrafiltration dialysis. 6. Acute respiratory failure secondary to congestive heart failure. Continue ultrafiltration with dialysis. 7. History of BPH. Continue medical management. Problems: Subjective 24 Hr Interval Summary Free Text/Dictation Patient seen and examined no events overnight Exam/Review of Systems Vital Signs Vitals Vital Signs Date Time Temp Pulse Resp B/P Pulse Ox O2 Delivery O2 Flow Rate FiO2 11/26/16 09:55 72 11/26/16 08:05 98.1 18 100/56 96 11/23/16 15:29 Room Air Intake and Output 11/25/16 11/25/16 11/26/16 15:00 23:00 07:00 Intake Total 1220 ml 1200 ml Output Total 400 ml 600 ml Balance 820 ml 600 ml Exam General: in no apparent distress. HEENT: Normocephalic, atraumatic. Eyes: Anicteric sclerae, conjunctivae clear. ENT: Nasal septum midline, oral mucosa moist. Neck supple, no JVD noticed. Respiratory: Bilaterally diminished breath sounds. No use of accessory muscles of respiration. Scattered rhonchi. Cardiovascular: S1, S2 heard. Regular rate and rhythm Abdomen: Soft, nontender, and nondistended. Bowel sounds positive in all 4 quadrants. Genitourinary: Deferred. Extremities: No cyanosis, no clubbing, no edema. Peripheral pulses palpable. Right knee joint pain on palpation. Neurologic: Cranial nerves II through XII grossly intact. The patient is awake, alert, and oriented. Skin: Normal skin turgor. No skin rashes Results Result Diagram: 11/24/16 0436 11/24/16 0430 Results 24 hrs Laboratory Tests Test 11/25/16 11:49 11/25/16 17:22 11/25/16 20:17 11/26/16 01:31 Bedside Glucose 171 228 H 150 123 Test 11/26/16 08:06 Bedside Glucose 164 Medications Medications Current Medications Ondansetron HCl (Zofran Inj) 4 mg Q6H PRN IV NAUSEA AND/OR VOMITING Last administered on 11/25/16 17:25; Admin Dose 4 MG; Start 11/14/16 at 00:30 Acetaminophen (Tylenol Tab) 650 mg Q6H PRN PO PAIN LEVEL 1-3 OR FEVER Last administered on 11/24/16 12:03; Admin Dose 650 MG; Start 11/14/16 at 00:30 Acetaminophen/ Hydrocodone Bitart ([place] (5/325)) 1 tab Q6H PRN PO MODERATE PAIN LEVEL 4-6 Last administered on 11/26/16 01:29; Admin Dose 1 TAB; Start at 00:30 Morphine Sulfate (morphine) 2 mg Q4H PRN IV SEVERE PAIN LEVEL 7-10 Last administered on 11/26/16 10:12; Admin Dose 2 MG; Start 11/14/16 at 00:30 Alprazolam (Xanax) 0.25 mg Q8H PRN PO ANXIETY Last administered on 11/26/16 05: 32; Admin Dose 0.25 MG; Start 11/14/16 at 00:30 Bisacodyl (Dulcolax) 10 mg DAILY PRN PO CONSTIPATION; Start 11/14/16 at 00:30 Finasteride (Proscar) 5 mg DAILY PO Last administered on 11/26/16 09:22; Admin Dose 5 MG; Start 11/14/16 at 09:00 Levothyroxine Sodium (Synthroid) 75 mcg DAILY@06 PO Last administered on 05:08; Admin Dose 75 MCG; Start 11/14/16 at 06:00 Morphine Sulfate (Ms Contin (Er)) 15 mg Q12 PO Last administered on 11/26/16 09 :18; Admin Dose 15 MG; Start 11/14/16 at 09:00 Pantoprazole (Protonix Tab) 40 mg DAILY@06 PO Last administered on 11/26/16 05: 08; Admin Dose 40 MG; Start 11/14/16 at 06:00 Simethicone (Mylicon) 80 mg Q6H PRN PO DISTENSION/GAS/BLOATING; Start 11/14/16 at 00:30 Tamsulosin HCl (Flomax) 0.4 mg HS PO Last administered on 11/25/16 20:19; Admin Dose 0.4 MG; Start 11/14/16 at 21:00 Miscellaneous Information 1 ea NOTE XX ; Start 11/14/16 at 01:00 Glucose (Glutose) 15 gm Q15M PRN PO DECREASED GLUCOSE; Start 11/14/16 at 01:00 Glucose (Glutose) 22.5 gm Q15M PRN PO DECREASED GLUCOSE; Start 11/14/16 at 01: 00 Dextrose (D50w Syringe) 25 ml Q15M PRN IV DECREASED GLUCOSE Last administered on 11/17/16 17:41; Admin Dose 25 ML; Start 11/14/16 at 01:00 Dextrose (D50w Syringe) 50 ml Q15M PRN IV DECREASED GLUCOSE; Start 11/14/16 at 01:00 Glucagon (Glucagen) 1 mg Q15M PRN IM DECREASED GLUCOSE; Start 11/14/16 at 01:00 Glucose (Glutose) 15 gm Q15M PRN BUCCAL DECREASED GLUCOSE; Start 11/14/16 at 01 :00 Diagnostic Test (Pha) (Accu-Chek) 1 ea 02 XX Last administered on 11/17/16 02: 00; Admin Dose 1 EA; Start 11/15/16 at 02:00 Hydralazine HCl (Apresoline) 50 mg TID PO Last administered on 11/25/16 20:18; Admin Dose 50 MG; Start 11/16/16 at 09:00 Nifedipine (Procardia Xl) 90 mg BID PO Last administered on 11/25/16 20:19; Admin Dose 90 MG; Start 11/21/16 at 09:00 Loperamide HCl (Imodium Cap) 2 mg Q4H PRN PO DIARRHEA Last administered on 14:26; Admin Dose 2 MG; Start 11/22/16 at 16:00 Docusate Sodium (Colace) 200 mg DAILY PRN PO CONSTIPATION; Start 11/22/16 at 16: 30 Magnesium Hydroxide (Milk Of Mag) 30 ml DAILY PRN PO CONSTIPATION; Start at 16:30 Hydralazine HCl (Apresoline) 20 mg Q6H PRN IV SBP>160 mmHg Last administered on 11/23/16t 16:14; Admin Dose 20 MG; Start 11/23/16 at 16:00 NAE MENDOZA DO Nov 26, 2016 10:25
[2016-11-26] MEDS: NIFEdipine (XL) 90 MG TAB PO SCH (12:07)
--- NOTE | 2016-11-26 15:53 | PN ---
Date/Time of Note Date/Time of Note DATE: 11/26/16 TIME: 15:52 Assessment/Plan VTE Prophylaxis VTE Prophylaxis Intervention: LMWH Lines/Catheters IV Catheter Type (from Nrsg): Johnathan catheter Urinary Cath still in place: No Assessment/Plan Chief Complaint/Hosp Course Evaluated and managed for renal failure hyperkalemia. Underwent dialysis. Presently also has an AV fistula. Stable and fit for discharge with outpatient dialysis-HD at [facility]. Deconditioning will go back to snf. Has lots of diarrhea probably multifactorial due to Renagel and antibiotics. No evidence of toxicity/ colitis. On as needed Imodium. Addendum: 11/26: Still here, accepted at [facility]. Dialysis referral/ transportation being arranged. A/P 1. Acute Renal Failure 2. Ftt 3. Dm/ htn/ met syn 4. Anemia 5. Depression? 6. Hypothyroidism 7. Benign diarrhea 8. HCV 9. Bph 10. Ho C diff 11. Ho spinal OM Diet: 1800 ADA Activity as tolerated Allergies none CODE STATUS full Condition stable Barriers to discharge placement Pending tests none Functional status. Awake alert agrees to plan of care DME pending Reason for admission renal failure Problems: Exam/Review of Systems Vital Signs Vitals Vital Signs Date Time Temp Pulse Resp B/P Pulse Ox O2 Delivery O2 Flow Rate FiO2 11/26/16 12:06 52 19 90/58 97 Room Air 11/26/16 08:05 98.1 Intake and Output 11/25/16 11/25/16 11/26/16 15:00 23:00 07:00 Intake Total 1220 ml 1200 ml Output Total 400 ml 600 ml Balance 820 ml 600 ml Results Result Diagram: 11/24/16 0436 11/24/16 0430 Results 24 hrs Laboratory Tests Test 11/25/16 17:22 11/25/16 20:17 11/26/16 01:31 11/26/16 08:06 Bedside Glucose 228 H 150 123 164 Test 11/26/16 11:48 Bedside Glucose 173 Medications Medications Current Medications Ondansetron HCl (Zofran Inj) 4 mg Q6H PRN IV NAUSEA AND/OR VOMITING Last administered on 11/25/16t 17:25; Admin Dose 4 MG; Start 11/14/16 at 00:30 Acetaminophen (Tylenol Tab) 650 mg Q6H PRN PO PAIN LEVEL 1-3 OR FEVER Last administered on 11/24/16 12:03; Admin Dose 650 MG; Start 11/14/16 at 00:30 Acetaminophen/ Hydrocodone Bitart ([place] (5/325)) 1 tab Q6H PRN PO MODERATE PAIN LEVEL 4-6 Last administered on 11/26/16 01:29; Admin Dose 1 TAB; Start at 00:30 Morphine Sulfate (morphine) 2 mg Q4H PRN IV SEVERE PAIN LEVEL 7-10 Last administered on 11/26/16 10:12; Admin Dose 2 MG; Start 11/14/16 at 00:30 Alprazolam (Xanax) 0.25 mg Q8H PRN PO ANXIETY Last administered on 11/26/16 13: 47; Admin Dose 0.25 MG; Start 11/14/16 at 00:30 Bisacodyl (Dulcolax) 10 mg DAILY PRN PO CONSTIPATION; Start 11/14/16 at 00:30 Finasteride (Proscar) 5 mg DAILY PO Last administered on 11/26/16 09:22; Admin Dose 5 MG; Start 11/14/16 at 09:00 Levothyroxine Sodium (Synthroid) 75 mcg DAILY@06 PO Last administered on 05:08; Admin Dose 75 MCG; Start 11/14/16 at 06:00 Morphine Sulfate (Ms Contin (Er)) 15 mg Q12 PO Last administered on 11/26/16 09 :18; Admin Dose 15 MG; Start 11/14/16 at 09:00 Pantoprazole (Protonix Tab) 40 mg DAILY@06 PO Last administered on 11/26/16 05: 08; Admin Dose 40 MG; Start 11/14/16 at 06:00 Simethicone (Mylicon) 80 mg Q6H PRN PO DISTENSION/GAS/BLOATING; Start 11/14/16 at 00:30 Tamsulosin HCl (Flomax) 0.4 mg HS PO Last administered on 11/25/16 20:19; Admin Dose 0.4 MG; Start 11/14/16 at 21:00 Miscellaneous Information 1 ea NOTE XX ; Start 11/14/16 at 01:00 Glucose (Glutose) 15 gm Q15M PRN PO DECREASED GLUCOSE; Start 11/14/16 at 01:00 Glucose (Glutose) 22.5 gm Q15M PRN PO DECREASED GLUCOSE; Start 11/14/16 at 01: 00 Dextrose (D50w Syringe) 25 ml Q15M PRN IV DECREASED GLUCOSE Last administered on 11/17/16 17:41; Admin Dose 25 ML; Start 11/14/16 at 01:00 Dextrose (D50w Syringe) 50 ml Q15M PRN IV DECREASED GLUCOSE; Start 11/14/16 at 01:00 Glucagon (Glucagen) 1 mg Q15M PRN IM DECREASED GLUCOSE; Start 11/14/16 at 01:00 Glucose (Glutose) 15 gm Q15M PRN BUCCAL DECREASED GLUCOSE; Start 11/14/16 at 01 :00 Diagnostic Test (Pha) (Accu-Chek) 1 ea 02 XX Last administered on 11/17/16 02: 00; Admin Dose 1 EA; Start 11/15/16 at 02:00 Hydralazine HCl (Apresoline) 50 mg TID PO Last administered on 11/25/16 20:18; Admin Dose 50 MG; Start 11/16/16 at 09:00 Nifedipine (Procardia Xl) 90 mg BID PO Last administered on 11/25/16 20:19; Admin Dose 90 MG; Start 11/21/16 at 09:00 Loperamide HCl (Imodium Cap) 2 mg Q4H PRN PO DIARRHEA Last administered on 14:26; Admin Dose 2 MG; Start 11/22/16 at 16:00 Docusate Sodium (Colace) 200 mg DAILY PRN PO CONSTIPATION; Start 11/22/16 at 16: 30 Magnesium Hydroxide (Milk Of Mag) 30 ml DAILY PRN PO CONSTIPATION; Start at 16:30 Hydralazine HCl (Apresoline) 20 mg Q6H PRN IV SBP>160 mmHg Last administered on 11/23/16 16:14; Admin Dose 20 MG; Start 11/23/16 at 16:00 JAN HEMPHILL MD Nov 26, 2016 15:53
[2016-11-26] MEDS: EPOETIN 10000 UNITS/1 ML INJ (ESRD) SC SCH (17:24)
== END 2016-11-26 19:53 | DRG 673 ==
LOC: E/R 20:44 → MS4 11-14 00:35 → PP2 11-22 18:11
PROVIDERS: ADMIT Internal Medicine; ATTEND Internal Medicine
PROC: 0JH63XZ Insertion of Tunneled Vascular Access Device into Chest Subcutaneous Tissue and Fascia, Percutaneous Approach (ICD-10-PCS; 2016-11-14)
PROC: 05HM33Z Insertion of Infusion Device into Right Internal Jugular Vein, Percutaneous Approach (ICD-10-PCS; 2016-11-14)
PROC: 06HY33Z Insertion of Infusion Device into Lower Vein, Percutaneous Approach (ICD-10-PCS; 2016-11-15)
PROC: 5A1D60Z (ICD-10-PCS; 2016-11-15)
PROC: 03180ZD Bypass Left Brachial Artery to Upper Arm Vein, Open Approach (ICD-10-PCS; principal; 2016-11-18 07:30)
PROC: 30233N1 Transfusion of Nonautologous Red Blood Cells into Peripheral Vein, Percutaneous Approach (ICD-10-PCS; 2016-11-19)
DX: N17.9 Acute kidney failure, unspecified (principal); J96.00 Acute respiratory failure, unspecified whether with hypoxia or hypercapnia; K52.1 Toxic gastroenteritis and colitis; E87.2 Acidosis; I12.0 Hypertensive chronic kidney disease with stage 5 chronic kidney disease or end stage renal disease; E11.649 Type 2 diabetes mellitus with hypoglycemia without coma; E87.5 Hyperkalemia; N18.6 End stage renal disease; E11.22 Type 2 diabetes mellitus with diabetic chronic kidney disease; E03.9 Hypothyroidism, unspecified; K21.9 Gastro-esophageal reflux disease without esophagitis; N40.0 Benign prostatic hyperplasia without lower urinary tract symptoms; E11.319 Type 2 diabetes mellitus with unspecified diabetic retinopathy without macular edema; H54.8 Legal blindness, as defined in USA; I50.9 Heart failure, unspecified; F32.9 Major depressive disorder, single episode, unspecified; E83.9 Disorder of mineral metabolism, unspecified; D64.9 Anemia, unspecified; R62.7 Adult failure to thrive; T36.8X5A Adverse effect of other systemic antibiotics, initial encounter; T50.3X5A Adverse effect of electrolytic, caloric and water-balance agents, initial encounter; Y92.230 Patient room in hospital as the place of occurrence of the external cause
CPT/HCPCS: 36415; 36430; 36558; 36600; 71010; 74000; 76942; 80048; 80053; 81003; 82803; 82962; 83735; 84100; 84132; 85025; 85610; 85730; 86850; 86900; 86901; 86920; 90935; 93005; 93923; 93970; 94644; 94664; 96365; 96375; J0360; J0610; J0690; J1100; J1170; J1644; J1815; J2250; J2270; J2405; J2710; J2795; J3010; J7030; J7040; J7042; J7070; J7999; P9016; P9047; Q4081

== ENCOUNTER 2017-01-09 13:53 | Emergency (ER) | payer OTHER ==
[~2017-01-09] VITALS: Ht 167.6 cm; Wt 61.4 kg
[~2017-01-09 13:53] MED LIST changes: +ACET325T33 PO; +ALPR0.25 PO; +BISA-57 PO; +CRAN450T7 PO; +DEXT15LI10 PO; +DEXT38GE15 PO; +DOCU-144 PO; +FLEETPED PR; +HYDR-906 PO; +MAGN400O4 PO; -METR500T PO; +MORP15TA92 PO; +NIFE60TA2 PO; -NIFE60TA7 PO; +ONDA4TAB8 PO; -OXYC-279 PO; -SENN-53 PO; +TYL500 PO; -ZOLP10TA5 PO; +ZOLP5TAB PO
[2017-01-09] MEDS ORDERED: SOD CHLORIDE 0.9% 1,000 ML IV STA (13:55)
[2017-01-09] MEDS ORDERED: ONDANSETRON 4 MG INJ IV STA (13:55)
[2017-01-09] MEDS ORDERED: morphine 2 MG INJ IV STA (13:55)
[2017-01-09 14:12] VITALS: Ht 167.6 cm; Wt 61.4 kg
[2017-01-09 14:31] LABS: BASOPHILS % 0.6 % (0.0-2.0); EOSINOPHILS % 0.8 % (0.0-7.0); HEMATOCRIT 28.7 % (42.0-52.0); HEMOGLOBIN 10.2 g/dl (14.0-18.0); LYMPHOCYTES # 0.9 10^3/ul (0.8-2.9); LYMPHOCYTES % 25.6 % (15.0-51.0); MEAN CORPUSCULAR HEMOGLOBIN 32.3 pg (29.0-33.0); MEAN CORPUSCULAR HGB CONC 35.5 g/dl (32.0-37.0); MEAN CORPUSCULAR VOLUME 90.8 fl (82.0-101.0); MEAN PLATELET VOLUME 8.5 fl (7.4-10.4); MONOCYTE # 0.3 10^3/ul (0.3-0.9); MONOCYTES % 7.2 % (0.0-11.0); NEUTROPHILS % 65.5 % (39.0-77.0); PLATELET COUNT 155 10^3/UL (140-415); RED BLOOD COUNT 3.16 10^6/ul (4.70-6.10); RED CELL DISTRIBUTION WIDTH 15.6 % (11.5-14.5); WHITE BLOOD COUNT 3.6 10^3/ul (4.8-10.8)
[2017-01-09 14:50] LABS: ALANINE AMINOTRANSFERASE 26 IU/L (13-69); ALBUMIN 3.2 g/dl (3.3-4.9); ALBUMIN/GLOBULIN RATIO 0.86; ALKALINE PHOSPHATASE 119 IU/L (42-121); ANION GAP 17 (8-16); ASPARTATE AMINO TRANSFERASE 17 IU/L (15-46); BILIRUBIN,INDIRECT 0.3 mg/dl (0-1.1); BILIRUBIN,TOTAL 0.3 mg/dl (0.2-1.3); BLOOD UREA NITROGEN 17 mg/dl (7-20); CALCIUM 8.8 mg/dl (8.4-10.2); CARBON DIOXIDE 28 mmol/L (21-31); CHLORIDE 98 mmol/L (97-110); CREATININE 1.85 mg/dl (0.61-1.24); GLUCOSE 140 mg/dl (70-220); POTASSIUM 3.9 mmol/L (3.5-5.1); SODIUM 139 mmol/L (135-144); TOTAL PROTEIN 6.9 g/dl (6.1-8.1)
--- NOTE | 2017-01-09 16:02 | RADRPT ---
PROCEDURE: XR Abdomen. CLINICAL INDICATION: Abdominal pain TECHNIQUE: AP supine abdomen x-rays. COMPARISON: 11/15/2016 FINDINGS: Gastric distension is demonstrated unable to exclude gastroparesis. There is no evidence of small stephy wel obstruction. Punctate calcification in the right upper quadrant unable to exclude cholelithiasis . No evidence of visceromegaly. Additional calcifications to the right of the L2 transverse proces s suggest prior pancreatitis. The osseous structures are unremarkable. Previously demonstrated left inguinal approach catheter has been removed RPTAT:HJJR IMPRESSION: 1. Gastric distension unable to exclude gastroparesis in the proper clinical setting. No evidence of small bowel obstruction. 2. Calcifications in the right upper quadrant possibly reflective of cholelithiasis and chronic gage creatitis. Physician Radha Date Time Electronically viewed and signed by Physician Radha on 01/09/2017 16:02 JR/
[2017-01-09 17:49] VITALS: BP 169/81; PULSE 74; RESP 18; TEMP 98.4
[2017-01-09] MEDS ORDERED: ONDA4TAB11 PO (17:57)
[2017-01-09] MEDS ORDERED: NAPR-685 PO (18:02)
[2017-01-09] MEDS ORDERED: HYDR-906 PO (18:02)
--- NOTE | 2017-01-09 18:18 | ERD ---
ER Documentation Chief Complaint Date/Time DATE: 01/09/17 TIME: 18:04 Chief Complaint bib ems from [facility] for ap n/v/d r/o obstruction from kub HPI This 53-year-old male comes in the emergency room for nausea vomiting and diarrhea since last night. He has generalized crampy abdominal pain nausea and nonbloody nonbilious vomiting. Diarrhea is copious and watery without blood. Denies any chest pain shortness of breath fevers or chills. ROS All systems reviewed and are negative except as per history of present illness. Medications Home Meds Active Scripts Hydrocodone/Acetaminophen ([place] 5-325 Tablet) 1 Each Tablet, 1 EACH PO Q6 for PAIN, #14 TAB Prov:BELEN MINAYA DO 01/09/17 Naproxen* (Naproxen*) 375 Mg Tablet, 375 MG PO BID Y for PAIN, #14 TAB Prov:REIBELEN DO 01/09/17 Ondansetron (Zofran Odt) 4 Mg Tab.rapdis, 4 MG PO Q6, #10 Prov:REIBELEN DO 01/09/17 Pantoprazole* (Pantoprazole*) 40 Mg Tablet.dr, 40 MG PO DAILY@06 for 30 Days Prov:RANDY SCHNEIDER 10/29/16 Linagliptin (TRADJENTA) 5 Mg Tablet, 5 MG PO DAILY for 30 Days, TAB Prov:RANDY SCHNEIDER 10/29/16 Levothyroxine Sodium* (Synthroid*) 75 Mcg Tablet, 75 MCG PO DAILY@06 for 30 Days , TAB Prov:RANDY SCHNEIDER 10/29/16 Ferrous Sulfate* (Ferrous Sulfate*) 325 Mg Tabec, 325 MG PO BID, #60 TAB 2 Refills Prov:PHANI REYES 07/22/16 Reported Medications Dextrose (Glucose Gel) Unknown Strength Gel..gram., 22.5 GM PO Q15M Y for NEEDED FOR DECREASED GLUCOSE 11/13/16 Dextrose (Glucose) Unknown Strength Liquid, 15 GM PO Q15 MIN Y for NEEDED, TUB 11/13/16 Ondansetron Hcl* (Zofran*) 4 Mg Tablet, 4 MG PO Q6H Y for NAUSEA AND OR VOMITING , TAB 11/13/16 Acetaminophen* (Tylenol*) 500 Mg Tab, 1000 MG PO Q4H Y for FOR MODERATE PAIN 4-, TAB 11/13/16 Acetaminophen* (Tylenol*) 325 Mg Tablet, 650 MG PO Q4H Y for MILD PAIN LEVEL 1-3 , TAB FOR FEVER 100 AND ABOVE 11/13/16 Hydrocodone/Acetaminophen ([place] 5-325 Tablet) 1 Each Tablet, 1 EACH PO Q6H, TAB 11/13/16 Zolpidem Tartrate* (Ambien*) 5 Mg Tablet, 5 MG PO QHS Y for INSOMNIA, #30 TAB 11/13/16 Alprazolam* (Xanax*) 0.25 Mg Tablet, 0.25 MG PO Q8H Y for ANXIETY, TAB 11/13/16 Cranberry Fruit (CRANBERRY) 450 Mg Tablet, 450 MG PO BID, TAB 11/13/16 Sod Phosphate/Sod Biphosphate* (Fleet* Enema Pediatric) 66.6 Ml Soln, 66.6 ML DE Q2 DAYS Y for CONSTIPATION, ENEMA 11/13/16 Bisacodyl* (Dulcolax*) 5 Mg Tablet.dr, 10 MG PO DAILY Y for CONSTIPATION, TAB 11/13/16 Magnesium Hydroxide* (Milk Of Magnesia*) 400 Mg/5 Ml Oral.susp, 30 ML PO DAILY, ML 11/13/16 Docusate Sodium* (Colace*) 100 Mg Capsule, 200 MG PO DAILY, #30 CAP 11/13/16 Tamsulosin Hcl* (Tamsulosin Hcl*) 0.4 Mg Cap.er.24h, 0.4 MG PO HS, CAP 11/13/16 Sevelamer Hcl* (Renagel*) 800 Mg Tablet, 1600 MG PO WITH MEALS, TAB 11/13/16 Nifedipine (Procardia Xl) 60 Mg Tab.er.24, 60 MG PO BID, TAB HOLD IF SBP<110 OR HR<60 11/13/16 Morphine Sulfate* (Ms Contin*) 15 Mg Tablet.sa, 15 MG PO Q12, TAB 11/13/16 Lactobacillus Acidoph/Bulgaricus* (Floranex*) 1 Each Tablet, 1 TAB.CHEW PO BID, TAB.CHEW 11/13/16 Hydralazine Hcl* (Apresoline*) 50 Mg Tab, 50 MG PO TID, #90 TAB HOLD IF SBP<110 OR HR<60 11/13/16 Furosemide* (Furosemide*) 40 Mg Tablet, 40 MG PO DAILY, TAB HOLD IF SBP<110 OR HR<60 11/13/16 Simethicone* (Anti-Gas/80*) 80 Mg Tab.chew, 80 MG PO Q6H Y for DISTENSION/GAS/ BLOATING, TAB.CHEW 09/01/16 Insulin Aspart* (Novolog Insulin Pen*) 100 Unit/Ml Soln, 0 SC .SLIDING SCALE AC , EA 0-150=0, 151-200=1 UNIT, 201-250=2 UNIT, 251-300=3 UNIT, 301-350=4 UNIT, 351-400=5 UNIT, .400=6 UNIT NOTIFY MD IF BS IS ABOVE 500 OR BELOW 70 09/01/16 Ergocalciferol (Vitamin D2) (VITAMIN D2) 50,000 Unit Capsule, 37936 UNIT PO ONCE , CAP every thursday07/10/16 Finasteride* (Finasteride*) 5 Mg Tablet, 5 MG PO DAILY, TAB 07/10/16 Allergies Allergies: Coded Allergies: No Known Allergies (Verified Allergy, Unknown, 01/09/17) PMhx/Soc History of Surgery: No Anesthesia Reaction: No Hx Neurological Disorder: No Hx Respiratory Disorders: No Hx Cardiac Disorders: Yes (HTN) Hx Psychiatric Problems: Yes (ANXIETY) Hx Miscellaneous Medical Probl: Yes (ESRD, DM) Hx Alcohol Use: No Hx Substance Use: No Hx Tobacco Use: No Smoking Status: Never smoker Physical Exam Vitals Vital Signs Date Time Temp Pulse Resp B/P Pulse Ox O2 Delivery O2 Flow Rate FiO2 01/09/17 17:49 98.4 74 18 169/81 100 Room Air 01/09/17 16:04 74 23 162/85 100 Room Air 01/09/17 14:13 76 8 177/97 99 Room Air 01/09/17 14:12 98.5 79 20 177/97 100 Physical Exam Const: [] Mild distress, appears uncomfortable Head: Atraumatic Eyes: Normal Conjunctiva ENT: Normal External Ears, Nose and Mouth. Neck: Full range of motion..~ No meningismus. Resp: Clear to auscultation bilaterally Cardio: Regular rate and rhythm, no murmurs Abd: Soft, mild epigastric tenderness without guarding or rebound, non distended. Normal bowel sounds Skin: No petechiae or rashes Back: No midline or flank tenderness Ext: No cyanosis, or edema, atrophy of lower extremities. Distal pulses intact all 4 Neur: Awake and alert and oriented 3, no focal deficits Psych: Normal Mood and Affect Result Diagram: 01/09/17 1414 01/09/17 1414 Results 24 hrs Laboratory Tests Test 01/09/17 14:14 White Blood Count 3.610^3/ul Red Blood Count 3.1610^6/ul Hemoglobin 10.2g/dl Hematocrit 28.7% Mean Corpuscular Volume 90.8fl Mean Corpuscular Hemoglobin 32.3pg Mean Corpuscular Hemoglobin Concent 35.5g/dl Red Cell Distribution Width 15.6% Platelet Count 08877^3/UL Mean Platelet Volume 8.5fl Neutrophils % 65.5% Lymphocytes % 25.6% Monocytes % 7.2% Eosinophils % 0.8% Basophils % 0.6% Nucleated Red Blood Cells % 0.0/100WBC Neutrophils # (Manual) 210^3/ul Lymphocytes # 0.910^3/ul Monocytes # 0.310^3/ul Eosinophils # 0.010^3/ul Basophils # 0.010^3/ul Nucleated Red Blood Cells # 0.010^3/ul Sodium Level 139mmol/L Potassium Level 3.9mmol/L Chloride Level 98mmol/L Carbon Dioxide Level 28mmol/L Anion Gap 17 Blood Urea Nitrogen 17mg/dl Creatinine 1.85mg/dl Glucose Level 140mg/dl Calcium Level 8.8mg/dl Total Bilirubin 0.3mg/dl Direct Bilirubin 0.00mg/dl Indirect Bilirubin 0.3mg/dl Aspartate Amino Transf (AST/SGOT) 17IU/L Alanine Aminotransferase (ALT/SGPT) 26IU/L Alkaline Phosphatase 119IU/L Total Protein 6.9g/dl Albumin 3.2g/dl Globulin 3.70g/dl Albumin/Globulin Ratio 0.86 Lipase < 10U/L Current Medications Medications (Trade) Dose Ordered Sig/Ines Route PRN Reason Start Time Stop Time Status Last Admin Dose Admin Sodium Chloride (NS) 1,000 ml @ 1,000 mls/hr Q1H STAT IV 01/09/17 13:55 01/09/17 14:54 DC 01/09/17 14:26 Morphine Sulfate (morphine) 2 mg ONCE STAT IV 01/09/17 13:55 8/18/17 13:58 DC 01/09/17 14:26 Ondansetron HCl (Zofran Inj) 4 mg ONCE STAT IV 01/09/17 13:55 01/09/17 13:58 DC 01/09/17 14:26 Procedures/MDM Likely viral gastroenteritis. Patient was feeling much better after 2 mg of morphine a liter of normal saline and Zofran. No further nausea. He had no diarrhea in the emergency room. His renal insufficiency which his creatinine is about baseline with the lowest creatinine at his previous visit being 1.63. I have very low suspicion for any acute bacterial infection. Patient has stable vital signs is feeling better. I am going to discharge with primary care follow-up and return precautions. Abdominal x-ray interpretation: Intraluminal bowel gas noted, otherwise nonspecific bowel gas pattern, no signs of obstruction, no fractures. Privacy Director mentions possible gastroparesis however given the clinical setting of copious watery diarrhea this is less likely per Departure Diagnosis: Primary Impression: Abdominal pain Additional Impression: Vomiting and diarrhea Condition: Stable Patient Instructions: Abdominal Pain, Gastroenteritis, Viral (6Y-Adult) Additional Instructions: Llame al doctor MAANA y louise regan KORINA PARA DENTRO DE 1-2 GODOY.Dgale a la secretaria que nosotros le instruimos hacer esta korina.Avise o llame si ford condicin se empeora antes de la korina. Regresa aqui si peor o no mejor. BELEN MINAYA DO Jan 09, 2017 18:14
== END 2017-01-09 18:00 | disposition home or self-care (01) ==
LOC: E/R 13:53
DX: R10.13 Epigastric pain (principal); R11.10 Vomiting, unspecified; R19.7 Diarrhea, unspecified; I12.0 Hypertensive chronic kidney disease with stage 5 chronic kidney disease or end stage renal disease; N18.6 End stage renal disease; E11.22 Type 2 diabetes mellitus with diabetic chronic kidney disease; Z79.84 Long term (current) use of oral hypoglycemic drugs; Z79.4 Long term (current) use of insulin
CPT/HCPCS: 36415; 74000; 80053; 83690; 85025; 96374; 96375; J2270; J2405; J7030; Z7502; Z7610

== ENCOUNTER 2017-02-03 06:08 | Day surgery (SDC) | payer OTHER ==
[~2017-02-03] VITALS: Ht 165.1 cm; Wt 57.0 kg
[~2017-02-03 06:08] MED LIST changes: +NAPR-685 PO; +ONDA4TAB11 PO
[2017-02-03 07:15] VITALS: BP 111/70; PULSE 56; RESP 18
[2017-02-03] MEDS ORDERED: LIDOCAINE 1% (MDV) 20 ML INJ ONE (07:31)
[2017-02-03] MEDS ORDERED: HEPARIN 1000 UNITS/NS (A-LINE) 1,000 ML ONE (07:31)
[2017-02-03] MEDS ORDERED: FENTAnyl 50 MCG/ML VIAL ONE (07:32)
[2017-02-03] MEDS ORDERED: MIDAZOLAM 1 MG/ML 2 ML INJ ONE (07:32)
[2017-02-03] MEDS ORDERED: ATRO2DRO3 RIGHT EYE (07:38)
[2017-02-03] MEDS ORDERED: CALC1TAB79 PO (07:39)
[2017-02-03] MEDS ORDERED: CRAN3875 PO (07:40)
[2017-02-03] MEDS ORDERED: NIFE90TA PO (07:40)
[2017-02-03 07:51] VITALS: Ht 165.1 cm; Wt 57.0 kg
--- NOTE | 2017-02-03 07:54 | HPN ---
Date/Time of Note Date/Time of Note DATE: 02/03/17 TIME: 07:54 Interval H&P Admission Note Pt. seen H&P reviewed: No system changes SIMBA CATHERINE MD Feb 03, 2017 07:54
--- NOTE | 2017-02-03 07:56 | CONS ---
Date/Time of Note Date/Time of Note DATE: 02/03/17 TIME: 07:55 Consultation Date/Type/Reason Admit Date/Time Hx of Present Illness Dear Doctors: Mr. Rios is a 56-year-old gentleman with history of impending end-stage renal disease that had been progressing. The patient had underwent a creation of a left arm brachiocephalic fistula on November 18, 2016. Unfortunately, postoperatively the patient was not able to see us from his alf facility for about 4 weeks and upon evaluation it was identified that the patient has decreased bruit and thrill present. At the moment, he denies shortness of breath, chest pain, nausea, vomiting, fever, or chills. He denies claudication or rest pain-like symptoms. He did have some swelling of the left upper extremity. OBJECTIVE DATA: GENERAL: Alert, oriented x3. CHEST: Clear to auscultation bilaterally. CARDIAC: S1, S2 present. ABDOMEN: Soft, nontender and nondistended. Bowel sounds positive. EXTREMITIES: Left upper extremity: Palpable brachial pulse. Motor and sensory intact. Capillary refill 2-3 seconds. Surgical scar well healed. Ventura intact, which will be removed and the bruit and thrill not strong. ASSESSMENT AND PLAN: 1. Chronic kidney disease. Impending end-stage renal disease. Patient is status post left upper extremity brachiocephalic fistula creation. At the moment patient has a bruit and thrill that is not strong postoperatively and some concern for possible stenosis. Plan for a fistulogram for further evaluation. Upon ultrasound, there are areas that the patient seems to have high velocities across the cephalic vein, which may have been chronic. However, we will plan to identify and delineate these findings and intervene with possible dilatation in order to accommodate the vein from its maturation. We will plan to schedule this urgently. 2. Optimize vascular status (blood pressure meds, nutrition, exercise, sugar control, antiplatelets). Discussed findings, plan and management with the patient and family at the bedside and they 3. understand. Thank you for allowing us to partake in the care of your patient. Please call with any questions. Past Surgical History Past Surgical Hx: other Exam/Review of Systems Vital Signs Vitals Vital Signs Date Time Temp Pulse Resp B/P Pulse Ox O2 Delivery O2 Flow Rate FiO2 02/03/17 07:15 97.6 56 18 111/70 99 Room Air Results Results 24 hrs Laboratory Tests Test 02/03/17 07:34 Bedside Glucose 100 SIMBA CATHERINE MD Feb 03, 2017 07:56
--- NOTE | 2017-02-03 07:57 | PDOCDIS ---
Discharge Instructions DIAGNOSIS Discharge Diagnosis ESRD CONDITION Patient Condition: Good HOME CARE INSTRUCTIONS: Special Diet: RENAL ACTIVITY: Activity Restrictions: Rest between Activity Avoid heavy lifting Do not Drive Do not operate Machinery Do not operate Power Tool Avoid Heavy Housework Keep Limb Elevated Bathing Restrictions: Sponge Bath FOLLOW UP/APPOINTMENTS Follow-up Plan FOLLOWUP IN TWO WEEKS AT [facility] SIMBA CATHERINE MD Feb 03, 2017 07:57
--- NOTE | 2017-02-03 08:04 | RADRPT ---
PROCEDURE: XR Chest. CLINICAL INDICATION: Preoperative, renal failure TECHNIQUE: Single frontal view of the chest was obtained COMPARISON: 07/15/2016 FINDINGS: The heart and mediastinum are within normal limits. There is a right-sided Perma-Cath in place. The lungs are clear. There is no pleural effusion or pneumothorax. RPTAT: AA IMPRESSION: No acute disease. .Dennis Ponce MD, MD Date Time Electronically viewed and signed by .Dennis Ponce MD, on 02/03/2017 08:03 .S/
--- NOTE | 2017-02-03 08:28 | OPR ---
Date/Time of Note Date/Time of Note DATE: 02/03/17 TIME: 08:23 Operative Report Free Text/Dictation DATE OF OPERATION: 02/03/2017 SURGEON: Dex Catherine MD PREOPERATIVE DIAGNOSIS: Left AVF non-maturing POSTOPERATIVE DIAGNOSIS: Thrombosed Left AVF ANESTHESIA: Local BLOOD LOSS: minimal COMPLICATIONS: None. HEPARIN: None CONTRAST: As recorded ACCESS: 3Fr sheath LUE Fistula CLOSURE: Manual compression INDICATIONS: This is a 56-year-old male whom had presented with non-maturing LUE fistula. Patient has been informed of the alternatives, risks, and benefits of angiogram, balloon angioplasty and stenting. Risks including but not limited to bleeding, thrombosis, embolization, myocardial infarction, , device malfunction, infection, and nephrotoxicity and patient has agreed to proceed. This is the first diagnostic angiogram in this clinical setting PROCEDURE: 1. Ultrasound guided access of left Upper extremity fistula FINDINGS: Thrombosed LUE AVF DESCRIPTION OF THE PROCEDURE: The patient was brought to the angio suite and positioned in the supine position on the fluoroscopic table. Sedation was administered without complication. Left upper extremity was shaved, prepped and draped in the standard sterile fashion. A time-out and the appropriate site was marked and confirmed. Local anesthesia was infiltrated in the region of the left upper extremity fistula. The fistula was cannulated with a micro access needle under ultrasound guidance and a guide wire advanced into the cephalic vein under fluoroscopic guidance. The needle was removed and no blood return identified. It seems the fistula has thrombosed. No further intervention performed. Patient was taken to the recovery unit in fair condition. PLAN: We'll schedule the patient for creation of a new fistula Estimated Blood Loss: minimal Transfusion Required: no Specimen: none Grafts/Implants: none Complications: no Pt Condition Post Procedure: stable Disposition: PACU DEX CATHERINE MD Feb 03, 2017 08:28
[2017-02-03 09:50] VITALS: BP 121/78; PULSE 55; RESP 18
--- NOTE | 2017-02-03 10:03 | RADRPT ---
PROCEDURE: US bilateral upper extremity Venous. CLINICAL INDICATION: Renal failure, vein mapping TECHNIQUE: Multiple sonographic images of the bilateral upper extremity deep an superficial venous system was obtained utilizing grayscale, color-flow, compressive sonography and doppler imaging wit h augmentation. Measurements were performed. The images were reviewed on a PACS workstation. COMPARISON: None. FINDINGS: Bilateral subclavian, axillary, and brachial veins are patent and compressible. RIGHT Right basilic vein size: Proximal: 4.7 mm Mid aspect: 4.1 mm Distal: 2.0 mm Right basilic vein size in the forearm: Proximal: 2.2 mm Mid aspect: 1.8 mm Distal: 2.1 mm Right cephalic vein size: Proximal: 3.7 mm Mid aspect: 2.5 mm Distal: 2.5 mm Right cephalic vein size in the forearm: Proximal: 2.5 mm Mid aspect: 3.0 mm Distal: 2.5 mm LEFT Left basilic vein size: Proximal: 5.7 mm Mid aspect: 3.6 mm Distal: 2.4 mm Left basilic vein size in the forearm: Proximal: 2.6 mm Mid aspect: 2.5 mm Distal: 2.8 mm Left cephalic vein size: Proximal: 2.8 mm Mid aspect: 1.9 mm Distal: No flow Left cephalic vein size in the forearm: Proximal: 3.2 mm Mid aspect: 2.5 mm Distal: 2.0 mm IMPRESSION: Vein mapping as described. The distal left cephalic vein at the level of the antecubital fossa is occluded. RPTAT: [facility] Physician Lise Date Time Electronically viewed and signed by Meliton Calhoun Physician on 02/03/2017 10:02 /
[2017-02-03] MEDS ORDERED: IODIXANOL LOCM 100 ML BTL ONE (11:45)
--- NOTE | 2017-02-05 11:11 | RADRPT ---
Vent Rate: 55 bpm RR Interval: 0 msec MD Interval: 174 msec QRS Duration: 92 msec QT Interval: 502 msec QTC Interval: 480 msec P-R-T [place]: 57 - 44 - 68 degrees Sinus bradycardia Prolonged QT Abnormal ECG Electronically Signed By: Morris Ferrer [id number]
== END 2017-02-03 10:30 | disposition home or self-care (01) ==
LOC: SDS 06:08
PROVIDERS: ATTEND Student in an Organized Health Care Education/Training Program
DX: T82.898A Other specified complication of vascular prosthetic devices, implants and grafts, initial encounter (principal); Y84.1 Kidney dialysis as the cause of abnormal reaction of the patient, or of later complication, without mention of misadventure at the time of the procedure; Y92.89 Other specified places as the place of occurrence of the external cause; I12.0 Hypertensive chronic kidney disease with stage 5 chronic kidney disease or end stage renal disease; N18.6 End stage renal disease; E11.9 Type 2 diabetes mellitus without complications; I50.9 Heart failure, unspecified; N40.0 Benign prostatic hyperplasia without lower urinary tract symptoms
CPT/HCPCS: 36901; 71010; 75710; 82962; 84132; 93005; 93970; J1644; Q9967; Z7610; J2250; J3010

== ENCOUNTER 2017-03-31 07:23 | Day surgery (SDC) | END 2017-03-31 15:20 | DX: N18.6 End stage renal disease (principal); E11.22 Type 2 diabetes mellitus with diabetic chronic kidney disease; I12.0 Hypertensive chronic kidney disease with stage 5 chronic kidney disease or end stage renal disease | CPT/HCPCS: 36821; 82962; 84132; 85610; 85730; J0360; J1100; J1644; J2250; J2405; J2795; J3010; Z7512; Z7610 ==

== ENCOUNTER 2017-08-09 13:15 | Emergency (ER) | END 2017-08-09 20:57 | disposition home or self-care (01) ==

== ENCOUNTER 2017-09-08 07:50 | Day surgery (SDC) | END 2017-09-08 14:15 | disposition home or self-care (01) ==

== ENCOUNTER 2017-09-13 12:00 | Emergency (ER) | END 2017-09-13 14:43 | disposition home or self-care (01) ==

== ENCOUNTER 2017-11-23 05:57 | Day surgery (SDC) | END 2017-11-23 09:23 | disposition home or self-care (01) ==

== ENCOUNTER 2018-02-16 15:53 | Emergency (ER) | END 2018-02-16 20:37 | disposition home or self-care (01) ==

== ENCOUNTER 2018-04-16 08:47 | Inpatient (IN) | END 2018-04-17 16:58 | DRG 313 ==

== ENCOUNTER 2018-06-08 13:10 | Inpatient (IN) | payer OTHER ==
[2018-06-08] VITALS (22 sets, daily range): BP systolic 107–125; BP diastolic 51–59; PULSE 82–86; RESP 10–28
[~2018-06-08] VITALS: Ht 154.9 cm; Wt 52.3 kg
[~2018-06-08 13:10] MED LIST changes: -ACET325T33 PO; -ACID1TAB14 PO; -ALPR0.25 PO; +ATRO10DR RIGHT EYE; +BEN50 PO; -BISA-57 PO; +BISA10SU55 RC; +CALC600T24 PO; +CLON-379 PO; +CRAN425C6 PO; -CRAN450T7 PO; -DEXT15LI10 PO; -DEXT38GE15 PO; -ERGO500037 PO; -FER325 PO; +FINA5TAB PO; -FINA5TAB4 PO; -FLEETPED PR; -FURO40TA4 PO; +GLYC1SUP92 PR; +GUAI5SYR2 PO; +HYDR-4011 PO; -HYDR-906 PO; +LEVA15HF6 INH; +LEVO75TA65 PO; -LINA5TAB PO; +LOPE-123 PO; +MAGN296S40 PO; -MAGN400O4 PO; -NAPR-685 PO; -NIFE60TA2 PO; +NIFE90TA21 PO; +NITR0.4T39 SL; -NOVO3I SC; -ONDA4TAB11 PO; +PANT40TA3 PO; -PANT40TA4 PO; -SEVE800T10 PO; -SIME80TA PO; +SVL800C PO; -SYN75 PO; -TYL500 PO; -ZOLP5TAB PO
--- NOTE | 2018-06-08 13:20 | ERD ---
ER Documentation Chief Complaint Chief Complaint The patient is a 58-year-old male, presenting to the ER because of acute chest pain, acute dyspnea from dialysis. He is due for dialysis today however he did not have it because of acute chest pain and acute dyspnea. The chest pain is substernal, nonradiating, had similar symptom previously. He denies chest pain with exertion/vomiting/radiation/diaphoresis. He denies abdominal pain, vomiting, dysuria, diarrhea. He does not smoke nor drink Medical history: Hypertension, BPH, chronic kidney disease, hypothyroidism, diabetes mellitus Past surgical history: Left arm AV fistula ROS All systems reviewed and are negative except as per history of present illness. Medications Home Meds Reported Medications Multivit/Ca Carb/B Cmplx/Fa* (Chely-Maribel*) 1 Tab Tab, 1 TAB PO DAILY, TAB 06/08/18 Mirtazapine* (Mirtazapine*) 7.5 Mg Tablet, 7.5 MG PO HS, TAB 06/08/18 Ranitidine Hcl* (Ranitidine Hcl*) 150 Mg Tablet, 150 MG PO Q12, #60 TAB 06/08/18 Calcium Carbonate* (Calcium Carbonate*) 600 MG Ca Tab, 600 MG PO DAILY, TAB 06/08/18 Cranberry Extract (Cranberry) 425 Mg Capsule, 425 MG PO BID, CAP 06/08/18 Diphenhydramine Hcl* (Benadryl*) 50 Mg Cap, 50 MG PO Q6 PRN for ITCHING, CAP 04/15/18 Nitroglycerin* (Nitrostat*) 0.4 Mg Tab.subl, 0.4 MG SL Q5MIN PRN for CHEST PAIN, BOTTLE 04/15/18 Ondansetron Hcl* (Zofran*) 4 Mg Tablet, 4 MG PO Q6H PRN for NAUSEA AND OR VOMITING, TAB 04/15/18 Docusate Sodium* (Colace*) 100 Mg Capsule, 200 MG PO QHS, #60 CAP 04/15/18 Nifedipine* (Nifedipine ER*) 90 Mg Tablet.sa, 90 MG PO BID, TAB.SA 04/15/18 Pantoprazole* (Protonix*) 40 Mg Tablet.dr, 40 MG PO DAILY, TAB 04/15/18 Glycerin* (Glycerin (Adult)*) 1 Each Supp.rect, 1 EACH WI DAILY PRN for CONSTIPATION, SUPP.RECT 04/15/18 Sevelamer Hcl* (Renagel*) 800 Mg Tablet, 1600 MG PO WITH MEALS, TAB 04/15/18 Hydralazine Hcl* (Hydralazine Hcl*) 50 Mg Tab, 50 MG PO BID PRN for ELEVATED BL OOD PRESSURE, #60 TAB HOLD FOR SBP<110 OR HR <60 04/15/18 Levothyroxine Sodium* (Levoxyl*) 75 Mcg Tablet, 75 MCG PO BEFORE BREAKFAST, #30 TAB 04/15/18 Tamsulosin Hcl* (Tamsulosin Hcl*) 0.4 Mg Cap.er.24h, 0.4 MG PO HS, CAP 04/15/18 Hydrocodone/Acetaminophen (Jal 5-325 Tablet) 1 Each Tablet, 2 EACH PO Q6 PRN for SEVERE PAIN LEVEL 7-10, TAB 04/15/18 Morphine Sulfate* (Ms Contin*) 15 Mg Tablet.sa, 15 MG PO Q12, TAB 04/15/18 Atropine Sulfate/0.9 %Sod Chlr (Atropine 0.01%-Ns Eye Drops) 10 Ml Drops, 1 DRP RIGHT EYE BID, BOTTLE 04/15/18 Magnesium Citrate* (Magnesium Citrate*) 296 Ml Solution, 296 ML PO ONCE PRN for CONSTIPATION, #1 BOTTLE 04/15/18 Levalbuterol* (Xopenex* HFA) 15 Gm Inha, 2 PUFFS INH Q4H PRN for WHEEZING AND SOB, INHALER 04/15/18 Discontinued Reported Medications Loperamide Hcl* (Loperamide Hcl*) 2 Mg Cap, 2 MG PO prn PRN for DIARRHEA, CAP 04/15/18 Clonidine Hcl* (Clonidine Hcl*) 0.1 Mg Tab, 0.1 MG PO prn PRN for ELEVATED BLOOD PRESSURE, TAB systolic 180 or higher and/or diastolic 100 or higher and/or symtomatic 04/15/18 Calcium Carbonate* (Calcium Carbonate*) 600 MG Ca Tab, 600 MG PO DAILY, TAB 04/15/18 Cranberry Extract (Cranberry) 425 Mg Capsule, 425 MG PO DAILY, CAP 04/15/18 Finasteride* (Proscar*) 5 Mg Tablet, 5 MG PO DAILY, TAB 04/15/18 Bisacodyl (Dulcolax) 10 Mg Supp.rect, 10 MG RC DAILY PRN for CONSTIPATION, SUPP.RECT 04/15/18 Guaifenesin-Dextromethorphan* (Robitussin* DM) 100MG/10MG/5ML Syrup, 10 ML PO Q6H PRN for COUGH, ML 04/15/18 Diphenhydramine Hcl* (Benadryl*) 50 Mg Cap, 50 MG PO QHS PRN for INSOMNIA, CAP 04/15/18 Allergies Allergies: Coded Allergies: No Known Allergies (Verified Allergy, Unknown, 04/15/18) PMhx/Soc History of Surgery: Yes (RENAL SX/AV SHUNT PLACEMENT) Anesthesia Reaction: No Hx Neurological Disorder: No Hx Respiratory Disorders: No Hx Cardiac Disorders: Yes (HTN) Hx Psychiatric Problems: No Hx Miscellaneous Medical Probl: No Hx Alcohol Use: Yes (UNABLE TO PROVIDE INFO) Hx Substance Use: No Hx Tobacco Use: No Physical Exam Vitals Vital Signs Date Temp Pulse Resp B/P (MAP) Pulse Ox O2 O2 Flow FiO2 Time Delivery Rate 06/08/18 54 14 92/60 (71) 98 Nasal 3.0 16:00 Cannula 06/08/18 52 14 92/52 (65) 98 Nasal 3.0 15:00 Cannula 06/08/18 54 15 91/51 (64) 98 Nasal 3.0 14:00 Cannula 06/08/18 Nasal 3 13:38 Cannula 06/08/18 97.8 57 14 85/46 (59) 93 13:21 Physical Exam Const: No acute distress. Head: Atraumatic. Eyes: Normal Conjunctiva. ENT: Normal External Ears, Nose and Mouth. Neck: Full range of motion. No meningismus. Resp: Bilateral expiratory wheezes Cardio: Regular bradycardic Abd: Soft, non distended, normal bowel sounds, non tender. Skin: No petechiae or rashes. Back: No midline or flank tenderness. Ext: No cyanosis, or edema. Neur: Awake and alert. No focal deficit Psych: Normal Mood and Affect. Result Diagram: 06/08/18 1348 06/08/18 1348 Results 24 hrs Laboratory Tests Test 06/08/18 13:29 06/08/18 13:44 06/08/18 13:48 Bedside Glucose 112 mg/dL POC Venous Lactate 0.9 mmol/L White Blood Count 8.8 10^3/ul Red Blood Count 2.48 10^6/ul Hemoglobin 7.7 g/dl Hematocrit 23.4 % Mean Corpuscular Volume 94.4 fl Mean Corpuscular Hemoglobin 31.0 pg Mean Corpuscular 32.9 g/dl Hemoglobin Concent Red Cell Distribution Width 14.0 % Platelet Count 208 10^3/UL Mean Platelet Volume 9.8 fl Immature Granulocytes % 0.300 % Neutrophils % 85.2 % Lymphocytes % 7.2 % Monocytes % 6.7 % Eosinophils % 0.5 % Basophils % 0.1 % Nucleated Red Blood Cells % 0.0 /100WBC Immature Granulocytes # 0.030 10^3/ul Neutrophils # 7.5 10^3/ul Lymphocytes # 0.6 10^3/ul Monocytes # 0.6 10^3/ul Eosinophils # 0.0 10^3/ul Basophils # 0.0 10^3/ul Nucleated Red Blood Cells # 0.0 10^3/ul Absolute Reticulocyte Count 0.025 X10^6 Percent Reticulocyte Count 1.0 % Prothrombin Time 21.2 Sec Prothrombin Time Ratio 1.7 INR International Normalized Ratio 1.82 Activated Partial Thromboplast 44.9 Sec Time Sodium Level 131 mmol/L Potassium Level 3.5 mmol/L Chloride Level 96 mmol/L Carbon Dioxide Level 24 mmol/L Anion Gap 11 Blood Urea Nitrogen 51 mg/dl Creatinine 5.21 mg/dl Est Glomerular Filtrat Rate mL/min 12 mL/min Glucose Level 105 mg/dl Calcium Level 7.3 mg/dl Iron Level 28 ug/dl Total Iron Binding Capacity 128 ug/dl Percent Iron Saturation 22 % SAT Ferritin 909.0 ng/ml Total Bilirubin 0.0 mg/dl Direct Bilirubin 0.00 mg/dl Indirect Bilirubin 0.0 mg/dl Aspartate Amino Transf (AST/SGOT) 12 IU/L Alanine 9 IU/L Aminotransferase (ALT/SGPT) Alkaline Phosphatase 69 IU/L Troponin I < 0.012 ng/ml Total Protein 6.2 g/dl Albumin 2.7 g/dl Globulin 3.50 g/dl Albumin/Globulin Ratio 0.77 Current Medications Medications Dose Sig/Ines Start Time Status Last (Trade) Ordered Route PRN Stop Time Admin Dose Reason Admin Sodium 1,570 ml BOLUS OVER 2 06/08/18 DC 06/08/18 Chloride HOURS STAT 13:30 13:46 (NS) IV* 06/08/18 13:32 Albumin 100 ml @ ONCE ONCE 06/08/18 DC 06/08/18 Human 100 mls/hr IV 13:30 14:42 06/08/18 14:29 Vancomycin 250 ml @ ONCE ONCE 06/08/18 DC 06/08/18 HCl 125 mls/hr IVPB 16:00 16:14 06/08/18 17:59 Piperacillin 50 ml @ ONCE ONCE 06/08/18 DC 06/08/18 Sod/ 100 mls/hr IVPB 16:00 15:55 Tazobactam 06/08/18 16:29 Sod IV Flush 3 ml PER 06/08/18 (NS 3 ml) PROTOCOL IV 16:30 Ondansetron 4 mg Q6H PRN 06/08/18 HCl (Zofran IV NAUSEA 16:30 Inj) AND/OR VOMITING 650 mg Q6H PRN 06/08/18 Acetaminophen PO PAIN 16:30 (Tylenol LEVEL 1-3 OR Tab) FEVER 1 tab Q6H PRN 06/08/18 Acetaminophen PO PAIN 16:30 / LEVEL 4-6 Hydrocodone Bitart (Jal (5/325)) Morphine 2 mg Q4H PRN 06/08/18 Sulfate IV PAIN 16:30 (morphine) LEVEL 7-10 Vancomycin VANCOMYCIN PER 06/08/18 HCl (Vanco PER PHARMACY PROTOCOL XX 16:30 Iv Per Pharmacy) Albuterol/ 3 ml Q2H RESP 06/08/18 Ipratropium THERAPY PRN 16:30 (Duoneb) HHN shortness of breath Hydralazine 10 mg Q4H PRN 06/08/18 HCl IV sbp >160 16:30 (Apresoline) Discontinue ONCE ONCE 06/08/18 DC Miscellaneous current oral XX 16:30 sulfonylur... 06/08/18 17:49 Information (* Miscellaneous Pharmacy Order) ONCE ONCE 06/08/18 DC Miscellaneous HYPOGLYCEMIA XX 16:30 PROTOCOL 06/08/18 17:49 Information w... (* Miscellaneous Pharmacy Order) Discontinue ONCE ONCE 06/08/18 DC Miscellaneous all previ... XX 16:30 06/08/18 17:49 Information (* Miscellaneous Pharmacy Order) Sodium 1,000 ml @ Q24H IV 06/08/18 DC Chloride 40 mls/hr 16:30 06/08/18 16:44 5 ml Q4H PRN 06/08/18 Guaifenesin/ PO cough 16:30 Codeine Phosphate (Robitussin Ac Liquid Cup) Sodium 500 ml @ Q1H ONCE 06/08/18 DC 06/08/18 Chloride 500 mls/hr IV 16:30 18:37 06/08/18 17:45 Procedures/MDM [place] [id number] Radiology Main Line: [phone] DIAGNOSTIC IMAGING REPORT Patient: VAHE SEPULVEDA : 1960 Age: 58 Sex: M MR #: [id number] DOS: 06/08/18 1330 Ordering MD: BOOKER MATIAS MD Location: E/R Room/Bed: PROCEDURE: XR Chest. CLINICAL INDICATION: Sepsis . Dyspnea TECHNIQUE: Single frontal chest x-ray. COMPARISON: SD CR CHEST 05/20/2018; SD CR CHEST 05/19/2018; TEQUILA DX CHEST 05/18/2018; DR CHEST 04/15/2018; CHEST 02/16/2018 FINDINGS: There is cardiomegaly with hilar vascular congestion improved since prior exam. Right upper lobe and left lower lobe infiltrates or edema are seen. Small left pleural effusion is present. .. No evidence of pneumothorax.. The osseous structures are intact. IMPRESSION: Cardiomegaly with hilar vascular congestion. Right upper lobe and left lower lobe infiltrates or consolidations. Small left pleural effusion.. RPTAT: [facility] .Nikolas Fletcher MD, MD Date Time Electronically viewed and signed by .Nikolas Fletcher MD, MD on 06/08/2018 13:48 .L/ CC: BOOKER MATIAS MD [id number] EKG: Read by emergency physician Rate/Rhythm: Sinus bradycardia 55 beats/min QRS, ST, T-waves: No ST elevation, no T inversion Impression: Abnormal EKG MEDICAL MAKING DECISION: The patient is a 58-year-old male, presenting with acute septic shock, acute bilateral pneumonia. He was treated with 100 ml albumin 25% x3 upon arrival due to hypotension, vancomycin IV, Zosyn IV for acute septic shock The differential diagnoses considered include but are not limited to asthma, COPD, pneumonia, pulmonary embolus, pleural effusion, congestive heart failure, UTI, pyelonephritis. MDM: Patient's infectious symptoms have not stabilized and the patient is at risk of rapid decompensation. The patient will be admitted for careful hydration, antibiotic therapy, and infectious source control. SEVERE SEPSIS CRITERIA: Infectious source:pna End organ damage indicated by: Hypotension (SBP < 90 or >40 mmHG drop or MAP < 65) SEPSIS MANAGEMENT Time of recognition of septic shock: 1700 3 HOUR BUNDLE Blood cultures x 2 before broad-spectrum antibiotics: Yes 30 ml/kg NS bolus completed Initial lactate0.9 Repeat lactate Pending SEPTIC SHOCK ASSESSMENT: No lactic acid > 4.0 Yes persistent hypotension (SBP < 90 or 40 mmHg drop, MAP < 65) despite 30 mL/kg IV fluid bolus VOLUME REASSESSMENT FOR SEPTIC SHOCK: Reevaluation Time:5pm Temp97.8, BP85/51, HR51, RR19, Pox98% Heart regular bradycardic Lungs no crackles Skin warm & dry Cap Refill less than 2 seconds Peripheral pulses radially present PERSISTENT HYPOTENSION TREATMENT: Comfort care no Central line : R femoral vein Vasopressor: Levophed drip I considered further perfusion assessment with CVP measurement, SCVO2, bedside ultrasound volume assessment, passive leg raise, trial of further fluid bolus. And proceeded with 30 ml/kg fluid bolus of NSS, broad spectrum antibiotics, and admission. CRITICAL CARE Critical care time 35 minutes Emergent fluid management while maintaining close respiratory support. Provis ion of immediate and broad-spectrum antibiotic therapy. Simultaneous assessment for possible sources in order to direct targeted therapy. Consideration for invasive and chemical support to prevent cardiopulmonary collapse. Critical care time is independent of procedures performed. Central Line Placement by me: After the patient was consented and a time out was performed, appropriate hand hygiene was performed, the skin site was fully prepped and maximal sterile barrier technique was employed where the patient was sterilely draped, and the provider wore a mask and sterile gown and gloves. Anesthesia: 1% lidocaine locally Location: []R femoral vein Device: Multiple lumen Technique: Seldinger technique. Secured with suture. Results: Venous return from all ports with easy saline flush. No complications. []Guide wire retrieved and disposed of. ED Ultrasound: Central line placed by me using concurrent ultrasound guidance done using sterile technique. Real time image archived in the medical record confirms vascular anatomy. Departure Diagnosis: Primary Impression: Septic shock Additional Impressions: PNA (pneumonia) Anemia Condition: Critical Comments I discussed the findings with the patient. I discussed the patient with the hospitalist Dr Cruz at 3:50 PM. who was made aware of the lab, the treatment, the patient condition. The patient is admitted to ICU Disclaimer: Inadvertent spelling and grammatical errors are likely due to EHR/dictation software use and do not reflect on the overall quality of patient care. Also, please note that the electronic time recorded on this note does not necessarily reflect the actual time of the patient encounter. BOOKER MATIAS MD Jun 08, 2018 13:20
[2018-06-08] MEDS ORDERED: SODIUM CHLORIDE 0.9% 1L BAG IV* STA (13:30)
[2018-06-08] MEDS ORDERED: ALBUMIN HUMAN 25% 100 ML IV ONE ×2 (13:30→17:00)
[2018-06-08] MEDS ORDERED: CRAN425C6 PO (14:01)
[2018-06-08] MEDS ORDERED: CALC600T24 PO (14:02)
[2018-06-08] MEDS ORDERED: RANI150T5 PO (14:04)
[2018-06-08] MEDS ORDERED: MIRT7.5T8 PO (14:04)
[2018-06-08] MEDS ORDERED: NEPH PO (14:07)
[2018-06-08] MEDS ORDERED: PIPER-TAZO 2.25 GM (PMX) 50 ML IVPB ONE (16:00)
[2018-06-08] MEDS ORDERED: VANCOMYCIN 1 GM (PMX) 250 ML IVPB ONE (16:00)
[2018-06-08] MEDS ORDERED: morphine 2 MG INJ IV PRN (16:30)
[2018-06-08] MEDS ORDERED: NACL 0.9% 3 ML SYG IV SCH (16:30)
[2018-06-08] MEDS ORDERED: ACETAMINOPHEN 325 MG TAB PO PRN (16:30)
[2018-06-08] MEDS ORDERED: VANCOMYCIN IV PER PHARMACY XX SCH (16:30)
[2018-06-08] MEDS ORDERED: ALBUTEROL/IPRATROPIUM (NEB) 3 ML AMP HHN PRN (16:30)
[2018-06-08] MEDS ORDERED: SOD CHLORIDE 0.9% 1,000 ML IV SCH ×2 (16:30→17:00)
[2018-06-08] MEDS ORDERED: SOD CHLORIDE 0.9% 500 ML IV ONE (16:30)
--- NOTE | 2018-06-08 16:40 | HP ---
Date/Time of Note Date/Time of Note DATE: 06/08/18 TIME: 16:39 Assessment/Plan VTE Prophylaxis Pharmacological prophylaxis: other Lines/Catheters IV Catheter Type (from Nrsg): Saline Lock Assessment/Plan Result Diagram: 06/08/18 1348 06/08/18 1348 Results 24hrs Laboratory Tests Test 06/08/18 13:29 06/08/18 13:44 06/08/18 13:48 Bedside Glucose 112 POC Venous Lactate 0.9 White Blood Count 8.8 # Red Blood Count 2.48 #L Hemoglobin 7.7 #L Hematocrit 23.4 #L Mean Corpuscular Volume 94.4 Mean Corpuscular Hemoglobin 31.0 Mean Corpuscular Hemoglobin Concent 32.9 Red Cell Distribution Width 14.0 Platelet Count 208 # Mean Platelet Volume 9.8 Immature Granulocytes % 0.300 Neutrophils % 85.2 H Lymphocytes % 7.2 L Monocytes % 6.7 Eosinophils % 0.5 Basophils % 0.1 Nucleated Red Blood Cells % 0.0 Immature Granulocytes # 0.030 Neutrophils # 7.5 Lymphocytes # 0.6 L Monocytes # 0.6 Eosinophils # 0.0 Basophils # 0.0 Nucleated Red Blood Cells # 0.0 Absolute Reticulocyte Count 0.025 Percent Reticulocyte Count 1.0 Prothrombin Time 21.2 H Prothrombin Time Ratio 1.7 INR International Normalized Ratio 1.82 Activated Partial Thromboplast Time 44.9 H Sodium Level 131 L Potassium Level 3.5 Chloride Level 96 L Carbon Dioxide Level 24 Anion Gap 11 Blood Urea Nitrogen 51 H Creatinine 5.21 H Est Glomerular Filtrat Rate mL/min 12 L Glucose Level 105 Calcium Level 7.3 L Total Bilirubin 0.0 L Direct Bilirubin 0.00 Indirect Bilirubin 0.0 Aspartate Amino Transf (AST/SGOT) 12 L Alanine Aminotransferase (ALT/SGPT) 9 L Alkaline Phosphatase 69 Troponin I < 0.012 Total Protein 6.2 Albumin 2.7 L Globulin 3.50 H Albumin/Globulin Ratio 0.77 HPI/ROS Admit Date/Time Admit Date/Time Hx of Present Illness Patient is a male with past medical history significant for end-stage renal disease on hemodialysis, hypertension, BPH, hypothyroidism, diabetes rosai chelsea who presents to [facility] for chest pain and shortness of breath. According to patient he has had progressively worsening shortness of breath and cough with associated chest pain for approximately 15 days. Patient states that the symptoms have been getting worse and worse. Patient states that he feels terrible and that he does not have any associated limb pain at this leticia e patient denies nausea, vomiting, headache, abdominal pain, leg pain. Objective Physical exam General: Patient is laying in bed and answers questions appropriately Mentation: Patient is alert and oriented 4, Head: Normocephalic atraumatic Eyes: EOMI, pupils reactive to light Neck: Supple, nontender, midline Respiratory: Coarse to auscultation bilaterally Cardiovascular: regular rate, no obvious murmurs Gastrointestinal: non-tender to palpation, bowel sounds heard. Neurological: Moves all extremities spontaneously Skin: No new skin lesions Assessment and plan Acute hypoxic respiratory distress -Secondary to multilobular pneumonia Multilobular pneumonia -IV antibiotic, broad-spectrum -ID on board -DuoNeb nebulizer, budesonide nebulizer -Cultures pending Chest pain -Likely secondary to above pneumonia and cough -Trend troponins, currently negative Hypotension/septic shock 2/2 PNA -Responding to fluids slightly -Even though patient has not had dialysis today will gently hydrate to increase blood pressure -Appears to be working with fluids however still borderline, will continue fluid and will give another small bolus and send to the ICU to for close monitoring. -Standing order to get central line and start norepinephrine if mean arterial pressure is persistently less than 65 Anemia -Baseline hemoglobin is around 10 on previous admission, iron panel pending as well as other anemia studies -No reported GI bleed but will get occult stool -Monitor hemoglobin, transfuse as needed End-stage renal disease on hemodialysis -Nephrology consulted -Dialysis as needed Hypertension -Hold home medications for now due to hypotension Hypothyroidism -Continue home meds Diabetes mellitus -Insulin sliding scale, will get A1c BPH -Continue Flomax Disposition -Continue IV antibiotics, dialysis per nephrology, infectious disease consultation pending, watch blood pressure PMH/Family/Social Past Medical History Medications Current Medications Vancomycin HCl 250 ml @ 125 mls/hr ONCE ONCE IVPB ; Start 06/08/18 at 16:00; Stop 06/08/18 at 17:59 Piperacillin Sod/ Tazobactam Sod 50 ml @ 100 mls/hr ONCE ONCE IVPB Last administered on 06/08/18at 15:55; Admin Dose 100 MLS/HR; Start 06/08/18 at 16:00; Stop 06/08/18 at 16:29 Coded Allergies: No Known Allergies (Verified Allergy, Unknown, 04/15/18) Past Surgical History Past Surgical Hx: other Family History Significant Family History: no pertinent family hx Social History Smoking Status: Never smoker Exam/Review of Systems Vital Signs Vitals Vital Signs Date Temp Pulse Resp B/P (MAP) Pulse Ox O2 O2 Flow FiO2 Time Delivery Rate 06/08/18 Nasal 3 13:38 Cannula 06/08/18 97.8 57 14 85/46 (96) 93 13:21 ZAHEER MONTES DE OCA Jun 08, 2018 16:40
--- NOTE | 2018-06-08 16:50 | CONS ---
DATE OF ADMISSION: 06/08/2018 DATE OF CONSULTATION: 06/08/2018 REASON FOR CONSULTATION: Antibiotic management. HISTORY OF PRESENT ILLNESS: Larry Klein is a 58-year-old male who comes into [facility] emergency room with acute dyspnea following dialysis as well as acute chest pain. Acutely, the patient presents with chest pain and shortness of breath. The chest pain is substernal, nonradiating, and he had similar symptoms previously. He denies chest pain on exertion. He has no nausea or vomiting. He has no radiation of pain. He has no diaphoresis. His past problems include: 1. Hypertension. 2. Benign prostatic hypertrophy. 3. End-stage renal disease on hemodialysis. 4. Hypothyroidism. 5. Diabetes mellitus. 6. Left arm AV fistula. PAST MEDICAL HISTORY: As outlined. FAMILY HISTORY: Noncontributory. SOCIAL HISTORY: Does not smoke, drink or abuse drugs. ALLERGIES: NONE TO PENICILLIN, SULFA OR FOODS. MEDICATIONS: Per chart. REVIEW OF SYSTEMS: As per HPI. PHYSICAL EXAMINATION: GENERAL: The patient is a well-developed, well-nourished male who is awake, responsive, in no acute distress. VITAL SIGNS: Stable. He is afebrile. SKIN: Without generalized rash. HEENT: Within normal limits. NECK: Supple. LYMPH NODES: None palpable. CHEST: Decreased breath sounds at the bases. HEART: Without murmur or gallop. ABDOMEN: Soft, nontender, without organosplenomegaly or masses. EXTREMITIES: Without cyanosis, clubbing, or edema. RECTAL AND GENITAL: Deferred. NEUROLOGICAL: No focal neurological abnormality. The patient has an AV shunt. HOSPITAL COURSE: A chest x-ray shows cardiomegaly with hilar vascular congestion, right upper lobe a nd left lower lobe infiltrates or consolidations, small left pleural effusion. The patient was begun on vancomycin and Zosyn to which I concur. His white count was 8.8, H and H 7.7 and 23.4, platelet count 208,000. BUN and creatinine is 51/5.21. There is no urine at the present time. IMPRESSION AND PLAN: 1. Continue on vancomycin and Zosyn. Blood cultures have been ordered. Urine cultures and stool cu ltures have also been ordered. I will dictate my findings to the hospitalist. Dictated By: PARDEEP VAZQUEZ MD, JD/ERICKA Conf#: [id number] [facility]#: [id number]
[2018-06-08] MEDS ORDERED: LIDOCAINE 1% (MPF) 5 ML VIAL SC ONE (17:00)
[2018-06-08] MEDS ORDERED: ALBUMIN HUMAN 25% 100 ML IV STA (17:39)
[2018-06-08] MEDS ORDERED: GLUCOSE GEL 15 GRAM TUBE BUCCAL PRN (18:00)
[2018-06-08] MEDS ORDERED: GLUCAGON 1 MG INJ IM PRN (18:00)
[2018-06-08] MEDS ORDERED: GLUCOSE GEL 15 GRAM TUBE PO PRN ×2 (18:00)
[2018-06-08] MEDS: INSULIN ASPART [NOVOLOG] 3 ML PEN SC SCH ×2 (18:00→21:00)
[2018-06-08] MEDS ORDERED: DEXTROSE 50% 50 ML SYRINGE IV PRN ×2 (18:00)
--- NOTE | 2018-06-08 18:30 | CONS ---
DATE OF ADMISSION: 06/08/2018 DATE OF CONSULTATION: TYPE OF CONSULTATION: Nephrology. REASON FOR CONSULTATION: End-stage renal disease. HISTORY OF PRESENT ILLNESS: This is a 58-year-old male with a past medical history of end-stage ivette l disease on dialysis Thursday, , Thursday with access of AV fistula, history of hypertension, BPH, hypothyroidism, diabetes, who presents to [facility] for chest pain, shortnes s of breath. The patient states that he has been having progressive shortness of breath constant for the last several days. The patient's symptoms did not improve. As a result, he came to the emergen cy room. Upon arrival, the patient had a chest x-ray which showed findings of cardiomegaly with colby r vascular congestion and right upper and left lower lobe infiltrates and small left pleural effusion . In the emergency room, the patient was started on IV antibiotics and given a bolus of IV fluids. In terms of patient's renal history, the patient is on dialysis Thursday, , Thursday. Last he modialysis was Thursday. The patient denies any hemoptysis, hematemesis or hematochezia. 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 PAST MEDICAL HISTORY: As stated above, history of end-stage renal disease, hypertension, BPH, hypoth yroidism, diabetes. PAST SURGICAL HISTORY: Status post left AV arm fistula. MEDICATIONS: Have been reviewed. ALLERGIES: NO KNOWN DRUG ALLERGIES. FAMILY HISTORY: No family history of kidney disease. REVIEW OF SYSTEMS: A 14-point review of systems conducted. Pertinent positives stated in HPI, other whalen negative. PHYSICAL EXAMINATION: VITAL SIGNS: Blood pressure is 85/51, respiration 19, pulse 51. HEENT: Head is normocephalic. NECK: Supple. HEART: Regular rate. LUNGS: Show diminished breath sounds at base. ABDOMEN: Soft, nontender to palpation without rebound or guarding. EXTREMITIES: Negative for clubbing, cyanosis. No edema. DERMATOLOGIC: No rashes. MUSCULOSKELETAL: No joint effusion. NEUROLOGIC: No focal deficits. LABORATORY DATA: Show a white count of 8.8, hemoglobin 7.7, platelet count is 208. Sodium 131, pota ssium 3.5, chloride 96, BUN 51, creatinine 5.21. DIAGNOSTIC DATA: The patient's chest x-ray was reviewed. ASSESSMENT AND PLAN: This is a 58-year-old male with presents with: 1. End-stage renal disease. The patient is on dialysis Thursday, , Thursday. Last hemodialy sis was Thursday. Access is AV fistula. Plan is to be for hemodialysis today for 3 hours on a 3K ba th, calcium 2.5. No ultrafiltration as the patient is hypotensive. Monitor closely. 2. Anemia. Continue to monitor hemoglobin and hematocrit levels. We will check an iron panel, stoo l for occult blood. We will give Epogen as needed. 3. Mineral bone disorder. Monitor calcium and phosphorus levels. 4. Sepsis secondary to bilateral pneumonia. Continue broad spectrum antibiotics. Continue gentle I V hydration. Consider pressor support. 5. Hypoxemic respiratory failure secondary to pneumonia. Continue current medical management. Cont inue nebulizer and supplemental oxygen. 6. Chest pain, likely secondary to pneumonia. Continue to monitor. Rule out acute coronary syndrom e. Check serial troponins. 7. History of hypertension. The patient is currently hypotensive. Continue to monitor. 8. Hypothyroidism. Continue Synthroid. 9. Diabetes. Continue current insulin regimen. 10. Benign prostatic hypertrophy. Continue Flomax. Thank you, Dr. Cruz, for this interesting consult. It will be a pleasure to follow the patient with torsten brito throughout the hospital course. Dictated By: NAE MENDOZA DO NR/NTS Conf#: [id number] DID#: [id number] CC: ZAHEER CRUZ MD;*EndCC*
[2018-06-08] MEDS ORDERED: NORepinephrine 8MG/250 ML (PMX 250 ML IV SCH (19:00)
[2018-06-08] MEDS: DOCUSATE SODIUM 100 MG CAP PO SCH (20:01)
[2018-06-08] MEDS ORDERED: NIFEdipine (XL) 90 MG TAB PO SCH (21:00)
[2018-06-08] MEDS ORDERED: MIRTAZAPINE 15 MG TAB PO SCH (21:00)
[2018-06-08] MEDS: TAMSULOSIN (SR) 0.4 MG CAP PO SCH (21:24)
[2018-06-08] MEDS: ALBUTEROL/IPRATROPIUM (NEB) 3 ML AMP HHN SCH (21:34)
[2018-06-08] MEDS: BUDESONIDE (NEB) 0.5MG/2ML AMP HHN SCH (21:34)
[2018-06-08] MEDS: PIPER-TAZO 3.375 GM IV (PMX) 100 ML IVPB SCH (21:38)
[2018-06-09] VITALS (44 sets, daily range): BP systolic 106–169; BP diastolic 41–124; PULSE 65–94; RESP 11–18; Ht 154.9 cm; Wt 52.3 kg
[2018-06-09] MEDS: ACCU-CHEK XX SCH (02:00)
[2018-06-09] MEDS: morphine SULFATE/PF (2 MG/2 ML) SYG IV PRN ×2 (03:07→13:54)
[2018-06-09] MEDS ORDERED: POTASSIUM CHLORIDE (SR) 20 MEQ TAB PO STA (07:29)
[2018-06-09] MEDS ORDERED: EPOETIN 10000 UNITS/1 ML INJ (ESRD) SC SCH ×2 (07:30→10:00)
[2018-06-09] MEDS: INSULIN ASPART [NOVOLOG] 3 ML PEN SC SCH ×4 (07:35→20:56)
--- NOTE | 2018-06-09 08:02 | PN ---
DATE: 06/09/2018 SUBJECTIVE: The patient is in serious condition. The patient was on pressors overnight being weaned off. The patient had hemodialysis yesterday, tolerated well. No other acute events noted. No hemo ptysis, hematemesis, hematochezia. OBJECTIVE: VITAL SIGNS: Blood pressure is 130/66, respiration 14, pulse 69, temperature 98.2. HEENT: Head is normocephalic. NECK: Supple. HEART: Regular rate. LUNGS: Show diminished breath sounds at base. ABDOMEN: Soft, nontender to palpation without rebound or guarding. EXTREMITIES: Negative for clubbing, cyanosis, no edema. DERMATOLOGIC: No rashes. MUSCULOSKELETAL: No joint effusion. NEUROLOGIC: No change in exam. MEDICATIONS: Have been reviewed. LABORATORY DATA: White count 6.1, hemoglobin 6.6, platelet count 181, sodium 140, potassium 3.4, mariano cium 7.7, magnesium 1.9. Iron saturation 22%. The patient's cultures are pending. ASSESSMENT AND PLAN: 1. End-stage renal disease. The patient is on dialysis Thursday, and Thursday. The patient had hemodialysis yesterday, tolerated well. No ultrafiltration was performed. Plan for hemodialysi s again tomorrow. 2. Anemia. The patient has a component of iron deficiency. Hemoglobin level has dropped to 6.5 g/d L. Plan is to start the patient on Epogen, will consider IV iron once sepsis has resolved. Repeat h emoglobin and hematocrit levels. If hemoglobin levels remain low, will transfuse 1 unit PRBC. 3. Mineral bone disorder, monitor calcium and phosphorus levels. Will start the patient vitamin D a nalogs. 4. Septic shock secondary to bilateral pneumonia. The patient is being weaned off pressor support. Continue broad spectrum antibiotics, will deescalate IV fluids once off pressors. 6. Hypoxemic respiratory failure secondary to pneumonia. Continue current medical management. Cont inue nebulizers, supplemental oxygen. 7. Chest pain. Continue to monitor. Check serial troponins. 8. History of hypertension. The patient is currently hypotensive. 9. Hypothyroidism. Continue Synthroid. 10. Diabetes. Continue insulin regimen. 11. Benign prostatic hypertrophy. Continue Flomax. Please note I spent over 30 minutes of critical care time with this patient. Dictated By: NAE SINHA/ERICKA Conf#: [id number] DID#: [id number] CC: ZAHEER MONTES DE OCA MD;*EndCC*
[2018-06-09] MEDS: LEVOTHYROXINE 75 MCG TAB PO SCH (08:12)
[2018-06-09] MEDS: PIPER-TAZO 3.375 GM IV (PMX) 100 ML IVPB SCH ×2 (08:13→20:56)
[2018-06-09] MEDS: ALBUTEROL/IPRATROPIUM (NEB) 3 ML AMP HHN SCH ×3 (08:27→19:46)
[2018-06-09] MEDS: BUDESONIDE (NEB) 0.5MG/2ML AMP HHN SCH ×2 (08:27→19:46)
[2018-06-09] MEDS ORDERED: PANTOPRAZOLE (EC) 40 MG TAB PO SCH (09:00)
[2018-06-09] MEDS ORDERED: CALCITRIOL 1 MCG INJ IV SCH (10:00)
--- NOTE | 2018-06-09 14:19 | CONS ---
Date/Time of Note Date/Time of Note DATE: 06/09/18 TIME: 14:19 Assessment/Plan Assessment/Plan Hospital Course Patient is alert off pressors since 3 AM today, complaining of cough. He is in no distress and afebrile. WBC 6.1 H&H 6.6 and 20.1 platelets 191 neutrophils 79 Indwelling: Left arm AV fistula, femoral triple-lumen catheter Microbiology: Blood cultures negative Chest x-ray on admission revealed a right upper lobe and left lower lobe infiltrates Antimicrobials: Zosyn, vancomycin Physical examination: This is a chronically ill-appearing middle-aged man who is awake in no distress. Head atraumatic normocephalic. Neck is supple. Chest rise symmetrical breath sounds with scattered crackles heart S1- S2. Abdomen soft bowel sounds present. Extremities without cyanosis. Assessment: 1. Severe sepsis status post shock 2. Pneumonia 3. End-stage renal disease, hemodialysis dependent 4. Diabetes 5. Hypertension Plan: Patient is hemodynamically stable, on appropriate antibiotics, pending nares swab. We will will try to send sputum for culture and at [facility]. We will also send influenza swab Result Diagram: 06/09/18 0751 06/09/18 0440 Results 24hrs Laboratory Tests Test 06/08/18 16:45 06/08/18 18:45 06/08/18 21:32 06/08/18 22:26 Lactic Acid Level 0.7 Troponin I < 0.012 Bedside Glucose 127 161 Hepatitis B Surface NEGATIVE Antigen Test 06/09/18 00:24 06/09/18 02:06 06/09/18 04:40 06/09/18 05:00 Troponin I < 0.012 Bedside Glucose 180 White Blood Count 6.1 # Red Blood Count 2.13 L Hemoglobin 6.6 *L Hematocrit 20.1 L Mean Corpuscular 94.4 Volume Mean Corpuscular 31.0 Hemoglobin Mean Corpuscular 32.8 Hemoglobin Concent Red Cell 14.0 Distribution Width Platelet Count 181 Mean Platelet Volume 9.3 Immature 0.300 Granulocytes % Neutrophils % 79.0 H Segmented 70 Neutrophils % (Manual) Band Neutrophils % 9 H (Manual) Lymphocytes % 10.8 L Lymphocytes % 15 (Manual) Monocytes % 9.0 Monocytes % (Manual) 6 Eosinophils % 0.7 Basophils % 0.2 Nucleated Red Blood 0.0 Cells % Immature 0.020 Granulocytes # Neutrophils # 4.9 Neutrophils # 4.3 (Manual) Band Neutrophils # 0.5 Lymphocytes (Manual) 0.9 Lymphocytes # 0.7 L Monocytes # 0.6 Monocytes # (Manual) 0.3 Eosinophils # 0.0 Basophils # 0.0 Nucleated Red Blood 0.0 Cells # Pathologist YES Review (Hematology) Platelet Estimate NORMAL Giant Platelets 2 H Anisocytosis 1+ Microcytosis 1+ Macrocytosis 1+ Sodium Level 140 Potassium Level 3.4 L Chloride Level 100 Carbon Dioxide Level 27 Anion Gap 13 Blood Urea Nitrogen 20 # Creatinine 2.57 #H Est Glomerular 26 L Filtrat Rate mL/min Glucose Level 167 Hemoglobin A1c 4.9 Calcium Level 7.7 L Magnesium Level 1.9 Total Bilirubin 0.0 L Direct Bilirubin 0.00 Indirect Bilirubin 0.0 Aspartate Amino 9 L Transf (AST/SGOT) Alanine 14 Aminotransferase (AL T/SGPT) Alkaline Phosphatase 70 Total Protein 6.0 L Albumin 2.8 L Globulin 3.20 Albumin/Globulin 0.87 Ratio Triglycerides Level 100 Cholesterol Level 57 L LDL Cholesterol, 19 Calculated HDL Cholesterol 18 L Cholesterol/HDL 3.1 Ratio Thyroid Stimulating 1.130 Hormone (TSH) Stool Occult Blood POSITIVE Test 06/09/18 05:03 06/09/18 07:51 06/09/18 08:15 Prothrombin Time 26.3 #H Prothrombin Time 2.1 Ratio INR International 2.41 Normalized Ratio Activated 46.8 H Partial Thromboplast Time Hemoglobin 6.8 *L Hematocrit 20.7 L Bedside Glucose 134 Consultation Date/Type/Reason Admit Date/Time Jun 08, 2018 at 16:30 Initial Consult Date Type of Consult id Exam/Review of Systems Vital Signs Vitals Vital Signs Date Temp Pulse Resp B/P (MAP) Pulse Ox O2 O2 Flow FiO2 Time Delivery Rate 06/09/18 76 15 159/73 100 Nasal 3.0 11:00 (101) Cannula 06/09/18 99.3 08:00 Intake and Output 06/08/18 06/08/18 06/09/18 1515:00 23:00 07:00 IntakeIntake Total 3170 ml 698.75 ml OutputOutput Total 0 ml 600 ml BalanceBalance 3170 ml 98.75 ml Medications Medications Current Medications IV Flush (NS 3 ml) 3 ml PER PROTOCOL IV ; Start 06/08/18 at 16:30 Ondansetron HCl (Zofran Inj) 4 mg Q6H PRN IV NAUSEA AND/OR VOMITING; Start 06/08/18 at 16:30 Acetaminophen (Tylenol Tab) 650 mg Q6H PRN PO PAIN LEVEL 1-3 OR FEVER; Start 06/08/18 at 16:30 Acetaminophen/ Hydrocodone Bitart ([place] (5/325)) 1 tab Q6H PRN PO PAIN LEVEL 4-6; Start 06/08/18 at 16:30 Vancomycin HCl (Vanco Iv Per Pharmacy) VANCOMYCIN PER PHARMACY PER PROTOCOL XX ; Start 06/08/18 at 16:30 Piperacillin Sod/ Tazobactam Sod 100 ml @ 25 mls/hr Q12 IVPB Last administered on 06/09/18at 08:13; Admin Dose 25 MLS/HR; Start 06/08/18 at 22:00 Albuterol/ Ipratropium (Duoneb) 3 ml Q6HWA RESP THERAPY HHN Last administered on 06/09/18at 08:27; Admin Dose 3 ML; Start 06/08/18 at 20:00 Albuterol/ Ipratropium (Duoneb) 3 ml Q2H RESP THERAPY PRN HHN shortness of breath; Start 06/08/18 at 16:30 Budesonide (Pulmicort (Neb)) 0.5 mg BID RESP THERAPY HHN Last administered on 06/09/18at 08:27; Admin Dose 0.5 MG; Start 06/08/18 at 20:00 Docusate Sodium (Colace) 200 mg QHS PO ; Start 06/08/18 at 21:00 Levothyroxine Sodium (Synthroid) 75 mcg BEFORE BREAKFAST PO Last administered on 06/09/18at 08:12; Admin Dose 75 MCG; Start 06/09/18 at 07:00 Tamsulosin HCl (Flomax) 0.4 mg HS PO Last administered on 06/08/18at 21:24; Admin Dose 0.4 MG; Start 06/08/18 at 21:00 Hydralazine HCl (Apresoline) 10 mg Q4H PRN IV sbp >160; Start 06/08/18 at 16:30 Diagnostic Test (Pha) (Accu-Chek) 1 ea 02 XX ; Start 06/09/18 at 02:00 Insulin Aspart (Novolog Insulin Pen) NOVOLOG *MILD* ALGORITHM WITH MEALS BEDTIME SC ; Start 06/08/18 at 18:00 Guaifenesin/ Codeine Phosphate (Robitussin Ac Liquid Cup) 5 ml Q4H PRN PO cough; Start 06/08/18 at 16:30 Norepinephrine 16 mg/Dextrose 500 ml @ 1.88 mls/hr TITRATE IV Last administered on 06/08/18at 18:36; Admin Dose 5.63 MLS/HR; Start 06/08/18 at 17:00 Miscellaneous Information 1 ea NOTE XX ; Start 06/08/18 at 18:00 Glucose (Glutose) 15 gm Q15M PRN PO DECREASED GLUCOSE; Start 06/08/18 at 18:00 Glucose (Glutose) 22.5 gm Q15M PRN PO DECREASED GLUCOSE; Start 06/08/18 at 18:00 Dextrose (D50w Syringe) 25 ml Q15M PRN IV DECREASED GLUCOSE; Start 06/08/18 at 18:00 Dextrose (D50w Syringe) 50 ml Q15M PRN IV DECREASED GLUCOSE; Start 06/08/18 at 18:00 Glucagon (Glucagen) 1 mg Q15M PRN IM DECREASED GLUCOSE; Start 06/08/18 at 18:00 Glucose (Glutose) 15 gm Q15M PRN BUCCAL DECREASED GLUCOSE; Start 06/08/18 at 18 :00 Norepinephrine 250 ml @ 1.875 mls/ hr TITRATE IV ; Start 06/08/18 at 19:00 Morphine Sulfate (morphine SULFATE (PF)) 2 mg Q4H PRN IV PAIN LEVEL 7-10 Last administered on 06/09/18at 13:54; Admin Dose 2 MG; Start 06/09/18 at 03:04 Epoetin Mauricio (Epogen (Esrd)) 10,000 units AFTER DIALYSIS SC ; Start 06/09/18 at 07:30 Phytonadione (Vitamin K) 10 mg ONCE ONCE IM ; Start 06/09/18 at 14:30; Stop at 14:31; Status UNV Sodium Chloride 250 ml @ 0 mls/hr Q0M ONCE IV* ; Start 06/09/18 at 14:10; Stop 06/09/18 at 14:11; Status UNV Pantoprazole 80 mg/Sodium Chloride 100 ml @ 10 mls/hr Q10H IV ; Start 06/09/18 at 14:30; Status DORENE HYMAN NP Jun 09, 2018 14:19
--- NOTE | 2018-06-09 15:09 | CONS ---
Date/Time of Note Date/Time of Note DATE: 06/09/18 TIME: 14:42 Assessment/Plan Assessment/Plan Hospital Course Summary Assessment and Plan: Assessment: Hematochezia Severe normocytic anemia with acute drop in HGB PNA- being followed by ID ESRD with HD Pt in isolation- r/o MRSA HTN DM BPH Plan: EGD/colonoscopy tomorrow- after coagulopathy has been corrected FFP today with Vitamin K- will recheck INR in am Abd us today Endoscopy - risks/benefits/alternatives/indications of procedure and sedation/anesthesia discussed with patient who states understanding and gives informed consent to proceed. Monitor h/h transfuse as needed Patient seen in collaboration with Dr. Alvarado Result Diagram: 06/09/18 0751 06/09/18 0440 Results 24hrs Laboratory Tests Test 06/08/18 16:45 06/08/18 18:45 06/08/18 21:32 06/08/18 22:26 Lactic Acid Level 0.7 Troponin I < 0.012 Bedside Glucose 127 161 Hepatitis B Surface NEGATIVE Antigen Test 06/09/18 00:24 06/09/18 02:06 06/09/18 04:40 06/09/18 05:00 Troponin I < 0.012 Bedside Glucose 180 White Blood Count 6.1 # Red Blood Count 2.13 L Hemoglobin 6.6 *L Hematocrit 20.1 L Mean Corpuscular 94.4 Volume Mean Corpuscular 31.0 Hemoglobin Mean Corpuscular 32.8 Hemoglobin Concent Red Cell 14.0 Distribution Width Platelet Count 181 Mean Platelet Volume 9.3 Immature 0.300 Granulocytes % Neutrophils % 79.0 H Segmented 70 Neutrophils % (Manual) Band Neutrophils % 9 H (Manual) Lymphocytes % 10.8 L Lymphocytes % 15 (Manual) Monocytes % 9.0 Monocytes % (Manual) 6 Eosinophils % 0.7 Basophils % 0.2 Nucleated Red Blood 0.0 Cells % Immature 0.020 Granulocytes # Neutrophils # 4.9 Neutrophils # 4.3 (Manual) Band Neutrophils # 0.5 Lymphocytes (Manual) 0.9 Lymphocytes # 0.7 L Monocytes # 0.6 Monocytes # (Manual) 0.3 Eosinophils # 0.0 Basophils # 0.0 Nucleated Red Blood 0.0 Cells # Pathologist YES Review (Hematology) Platelet Estimate NORMAL Giant Platelets 2 H Anisocytosis 1+ Microcytosis 1+ Macrocytosis 1+ Sodium Level 140 Potassium Level 3.4 L Chloride Level 100 Carbon Dioxide Level 27 Anion Gap 13 Blood Urea Nitrogen 20 # Creatinine 2.57 #H Est Glomerular 26 L Filtrat Rate mL/min Glucose Level 167 Hemoglobin A1c 4.9 Calcium Level 7.7 L Magnesium Level 1.9 Total Bilirubin 0.0 L Direct Bilirubin 0.00 Indirect Bilirubin 0.0 Aspartate Amino 9 L Transf (AST/SGOT) Alanine 14 Aminotransferase (AL T/SGPT) Alkaline Phosphatase 70 Total Protein 6.0 L Albumin 2.8 L Globulin 3.20 Albumin/Globulin 0.87 Ratio Triglycerides Level 100 Cholesterol Level 57 L LDL Cholesterol, 19 Calculated HDL Cholesterol 18 L Cholesterol/HDL 3.1 Ratio Thyroid Stimulating 1.130 Hormone (TSH) Stool Occult Blood POSITIVE Test 06/09/18 05:03 06/09/18 07:51 06/09/18 08:15 Prothrombin Time 26.3 #H Prothrombin Time 2.1 Ratio INR International 2.41 Normalized Ratio Activated 46.8 H Partial Thromboplast Time Hemoglobin 6.8 *L Hematocrit 20.7 L Bedside Glucose 134 CC: DAYANARA ALVARADO MD ; Consultation Date/Type/Reason Admit Date/Time Jun 08, 2018 at 16:30 Date of Consultation: Jun 09, 2018 Type of Consult GI Reason for Consultation Hematochezia Hx of Present Illness This is a 58-year-old [place]-speaking male with past medical history of ESRD with HD, HTN, BPH, DM, who presented to the hospital with SOB and CP. He was diagnosed with sepsis secondary to pneumonia during hospitalization patient with notable drop in hemoglobin stool for OB was checked deemed to be positive this morning. Today patient noted to have large amounts of hematochezia GI has been consulted for further evaluation. At time evaluation patient denies nausea/vomiting complains of mild abdominal tenderness with deep palpation but continues to have rectal bleeding. Today INR is 2.41 he is pending transfusion FFP x2 as well as vitamin K. Hemoglobin today 6.8 status post 1 unit packed RBCs. Carlos plan with patient for EGD colonoscopy tomorrow patient verbalized understanding is agreeable to procedure however this will be based on coagulation we will recheck INR in a.m. Review of Systems: A 12 system, review was conducted and is negative except as noted in the HPI or here. Past Medical History Medications Current Medications IV Flush (NS 3 ml) 3 ml PER PROTOCOL IV ; Start 06/08/18 at 16:30 Ondansetron HCl (Zofran Inj) 4 mg Q6H PRN IV NAUSEA AND/OR VOMITING; Start 06/08/18 at 16:30 Acetaminophen (Tylenol Tab) 650 mg Q6H PRN PO PAIN LEVEL 1-3 OR FEVER; Start 06/08/18 at 16:30 Acetaminophen/ Hydrocodone Bitart ([place] (5/325)) 1 tab Q6H PRN PO PAIN LEVEL 4-6; Start 06/08/18 at 16:30 Vancomycin HCl (Vanco Iv Per Pharmacy) VANCOMYCIN PER PHARMACY PER PROTOCOL XX ; Start 06/08/18 at 16:30 Piperacillin Sod/ Tazobactam Sod 100 ml @ 25 mls/hr Q12 IVPB Last administered on 06/09/18at 08:13; Admin Dose 25 MLS/HR; Start 06/08/18 at 22:00 Albuterol/ Ipratropium (Duoneb) 3 ml Q6HWA RESP THERAPY HHN Last administered on 06/09/18at 14:37; Admin Dose 3 ML; Start 06/08/18 at 20:00 Albuterol/ Ipratropium (Duoneb) 3 ml Q2H RESP THERAPY PRN HHN shortness of breath; Start 06/08/18 at 16:30 Budesonide (Pulmicort (Neb)) 0.5 mg BID RESP THERAPY HHN Last administered on 06/09/18at 08:27; Admin Dose 0.5 MG; Start 06/08/18 at 20:00 Docusate Sodium (Colace) 200 mg QHS PO ; Start 06/08/18 at 21:00 Levothyroxine Sodium (Synthroid) 75 mcg BEFORE BREAKFAST PO Last administered on 06/09/18at 08:12; Admin Dose 75 MCG; Start 06/09/18 at 07:00 Tamsulosin HCl (Flomax) 0.4 mg HS PO Last administered on 06/08/18at 21:24; Admin Dose 0.4 MG; Start 06/08/18 at 21:00 Hydralazine HCl (Apresoline) 10 mg Q4H PRN IV sbp >160; Start 06/08/18 at 16:30 Diagnostic Test (Pha) (Accu-Chek) 1 XX ; Start 06/09/18 at 02:00 Insulin Aspart (Novolog Insulin Pen) NOVOLOG *MILD* ALGORITHM WITH MEALS BEDTIME SC ; Start 06/08/18 at 18:00 Guaifenesin/ Codeine Phosphate (Robitussin Ac Liquid Cup) 5 ml Q4H PRN PO cough; Start 06/08/18 at 16:30 Norepinephrine 16 mg/Dextrose 500 ml @ 1.88 mls/hr TITRATE IV Last administere d on 06/08/18at 18:36; Admin Dose 5.63 MLS/HR; Start 06/08/18 at 17:00 Miscellaneous Information 1 ea NOTE XX ; Start 06/08/18 at 18:00 Glucose (Glutose) 15 gm Q15M PRN PO DECREASED GLUCOSE; Start 06/08/18 at 18:00 Glucose (Glutose) 22.5 gm Q15M PRN PO DECREASED GLUCOSE; Start 06/08/18 at 18:00 Dextrose (D50w Syringe) 25 ml Q15M PRN IV DECREASED GLUCOSE; Start 06/08/18 at 18:00 Dextrose (D50w Syringe) 50 ml Q15M PRN IV DECREASED GLUCOSE; Start 06/08/18 at 18:00 Glucagon (Glucagen) 1 mg Q15M PRN IM DECREASED GLUCOSE; Start 06/08/18 at 18:00 Glucose (Glutose) 15 gm Q15M PRN BUCCAL DECREASED GLUCOSE; Start 06/08/18 at 18:00 Norepinephrine 250 ml @ 1.875 mls/ hr TITRATE IV ; Start 06/08/18 at 19:00 Morphine Sulfate (morphine SULFATE (PF)) 2 mg Q4H PRN IV PAIN LEVEL 7-10 Last administered on 06/09/18at 13:54; Admin Dose 2 MG; Start 06/09/18 at 03:04 Epoetin Mauricio (Epogen (Esrd)) 10,000 units AFTER DIALYSIS SC ; Start 06/09/18 at 07:30 Phytonadione (Vitamin K) 10 mg ONCE ONCE IM ; Start 06/09/18 at 14:30; Stop 06/09/18 at 14:31; Status UNV Sodium Chloride 250 ml @ 0 mls/hr Q0M ONCE IV* ; Start 06/09/18 at 14:10; Stop 06/09/18 at 14:11; Status UNV Pantoprazole 80 mg/Sodium Chloride 100 ml @ 10 mls/hr Q10H IV ; Start 06/09/18 at 14:30; Status UNV Azithromycin (Zithromax) 250 mg DAILY PO ; Start 06/09/18 at 14:30; Status UNV Allergies: Coded Allergies: No Known Allergies (Verified Allergy, Unknown, 04/15/18) Past Surgical History Past Surgical Hx: other Social History Smoking Status: Never smoker Exam/Review of Systems Vital Signs Vitals Vital Signs Date Temp Pulse Resp B/P (MAP) Pulse Ox O2 O2 Flow FiO2 Time Delivery Rate 06/09/18 2.0 14:37 06/09/18 76 15 159/73 100 Nasal 11:00 (101) Cannula 06/09/18 99.3 08:00 Intake and Output 06/08/18 06/08/18 06/09/18 1515:00 23:00 07:00 IntakeIntake Total 3170 ml 698.75 ml OutputOutput Total 0 ml 600 ml BalanceBalance 3170 ml 98.75 ml Exam PHYSICAL EXAMINATION: GENERAL: Alert & oriented x 3 SKIN: No lesions. HEAD: Normocephalic, atraumatic, no tenderness. EYES: Pupils equal reactive to light and accommodation, no discharge. EARS/NOSE AND THROAT: Ears normal, nose normal. NECK: Supple, no masses, thyroid normal. CHEST: Inspection within normal limits. CARDIOVASCULAR: Heart: Regular rate and rhythm RESPIRATORY: Lungs clear to auscultation GASTROINTESTINAL AND LIVER: Abdomen: Soft, abdominal tenderness, non-distended, no hernias, no masses, no organomegaly, no ascites, no guarding, no rebound tenderness, normoactive bowel sounds. Rectal: Deferred. Medications Medications Current Medications IV Flush (NS 3 ml) 3 ml PER PROTOCOL IV ; Start 06/08/18 at 16:30 Ondansetron HCl (Zofran Inj) 4 mg Q6H PRN IV NAUSEA AND/OR VOMITING; Start 06/08/18 at 16:30 Acetaminophen (Tylenol Tab) 650 mg Q6H PRN PO PAIN LEVEL 1-3 OR FEVER; Start 06/08/18 at 16:30 Acetaminophen/ Hydrocodone Bitart ([place] (5/325)) 1 tab Q6H PRN PO PAIN LEVEL 4-6; Start 06/08/18 at 16:30 Vancomycin HCl (Vanco Iv Per Pharmacy) VANCOMYCIN PER PHARMACY PER PROTOCOL XX ; Start 06/08/18 at 16:30 Piperacillin Sod/ Tazobactam Sod 100 ml @ 25 mls/hr Q12 IVPB Last administered on 06/09/18at 08:13; Admin Dose 25 MLS/HR; Start 06/08/18 at 22:00 Albuterol/ Ipratropium (Duoneb) 3 ml Q6HWA RESP THERAPY HHN Last administered on 06/09/18at 14:37; Admin Dose 3 ML; Start 06/08/18 at 20:00 Albuterol/ Ipratropium (Duoneb) 3 ml Q2H RESP THERAPY PRN HHN shortness of breath; Start 06/08/18 at 16:30 Budesonide (Pulmicort (Neb)) 0.5 mg BID RESP THERAPY HHN Last administered on 06/09/18at 08:27; Admin Dose 0.5 MG; Start 06/08/18 at 20:00 Docusate Sodium (Colace) 200 mg QHS PO ; Start 06/08/18 at 21:00 Levothyroxine Sodium (Synthroid) 75 mcg BEFORE BREAKFAST PO Last administered on 06/09/18at 08:12; Admin Dose 75 MCG; Start 06/09/18 at 07:00 Tamsulosin HCl (Flomax) 0.4 mg HS PO Last administered on 06/08/18at 21:24; Admin Dose 0.4 MG; Start 06/08/18 at 21:00 Hydralazine HCl (Apresoline) 10 mg Q4H PRN IV sbp >160; Start 06/08/18 at 16:30 Diagnostic Test (Pha) (Accu-Chek) 1 ea 02 XX ; Start 06/09/18 at 02:00 Insulin Aspart (Novolog Insulin Pen) NOVOLOG *MILD* ALGORITHM WITH MEALS BEDTIME SC ; Start 06/08/18 at 18:00 Guaifenesin/ Codeine Phosphate (Robitussin Ac Liquid Cup) 5 ml Q4H PRN PO cough; Start 06/08/18 at 16:30 Norepinephrine 16 mg/Dextrose 500 ml @ 1.88 mls/hr TITRATE IV Last administered on 06/08/18at 18:36; Admin Dose 5.63 MLS/HR; Start 06/08/18 at 17:00 Miscellaneous Information 1 ea NOTE XX ; Start 06/08/18 at 18:00 Glucose (Glutose) 15 gm Q15M PRN PO DECREASED GLUCOSE; Start 06/08/18 at 18:00 Glucose (Glutose) 22.5 gm Q15M PRN PO DECREASED GLUCOSE; Start 06/08/18 at 18:00 Dextrose (D50w Syringe) 25 ml Q15M PRN IV DECREASED GLUCOSE; Start 06/08/18 at 18:00 Dextrose (D50w Syringe) 50 ml Q15M PRN IV DECREASED GLUCOSE; Start 06/08/18 at 18:00 Glucagon (Glucagen) 1 mg Q15M PRN IM DECREASED GLUCOSE; Start 06/08/18 at 18:00 Glucose (Glutose) 15 gm Q15M PRN BUCCAL DECREASED GLUCOSE; Start 06/08/18 at 18:00 Norepinephrine 250 ml @ 1.875 mls/ hr TITRATE IV ; Start 06/08/18 at 19:00 Morphine Sulfate (morphine SULFATE (PF)) 2 mg Q4H PRN IV PAIN LEVEL 7-10 Last administered on 06/09/18at 13:54; Admin Dose 2 MG; Start 06/09/18 at 03:04 Epoetin Mauricio (Epogen (Esrd)) 10,000 units AFTER DIALYSIS SC ; Start 06/09/18 at 07:30 Phytonadione (Vitamin K) 10 mg ONCE ONCE IM ; Start 06/09/18 at 14:30; Stop 06/09/18 at 14:31; Status UNV Sodium Chloride 250 ml @ 0 mls/hr Q0M ONCE IV* ; Start 06/09/18 at 14:10; Stop 06/09/18 at 14:11; Status UNV Pantoprazole 80 mg/Sodium Chloride 100 ml @ 10 mls/hr Q10H IV ; Start 06/09/18 at 14:30; Status UNV Azithromycin (Zithromax) 250 mg DAILY PO ; Start 06/09/18 at 14:30; Status UNV DARCI OSHEA Jun 09, 2018 14:52
--- NOTE | 2018-06-09 16:08 | PN ---
Date/Time of Note Date/Time of Note DATE: 06/09/18 TIME: 16:04 Objective Vitals Vital Signs Date Temp Pulse Resp B/P (MAP) Pulse Ox O2 O2 Flow FiO2 Time Delivery Rate 06/09/18 2.0 14:37 06/09/18 76 12:00 06/09/18 159/73 100 Nasal 11:00 (101) Cannula 06/09/18 99.3 08:00 Intake and Output 06/08/18 06/08/18 06/09/18 1515:00 23:00 07:00 IntakeIntake Total 3170 ml 698.75 ml OutputOutput Total 0 ml 600 ml BalanceBalance 3170 ml 98.75 ml Results Result Diagram: 06/09/18 0751 06/09/18 0440 Medications Medications Current Medications IV Flush (NS 3 ml) 3 ml PER PROTOCOL IV ; Start 06/08/18 at 16:30 Ondansetron HCl (Zofran Inj) 4 mg Q6H PRN IV NAUSEA AND/OR VOMITING; Start 05/25 10/10 at 16:30 Acetaminophen (Tylenol Tab) 650 mg Q6H PRN PO PAIN LEVEL 1-3 OR FEVER; Start 06/08/18 at 16:30 Acetaminophen/ Hydrocodone Bitart ([place] (5/325)) 1 tab Q6H PRN PO PAIN LEVEL 4-6; Start 06/08/18 at 16:30 Vancomycin HCl (Vanco Iv Per Pharmacy) VANCOMYCIN PER PHARMACY PER PROTOCOL XX ; Start 06/08/18 at 16:30 Piperacillin Sod/ Tazobactam Sod 100 ml @ 25 mls/hr Q12 IVPB Last administered on 06/09/18at 08:13; Admin Dose 25 MLS/HR; Start 06/08/18 at 22:00 Albuterol/ Ipratropium (Duoneb) 3 ml Q6HWA RESP THERAPY HHN Last administered on 06/09/18at 14:37; Admin Dose 3 ML; Start 06/08/18 at 20:00 Albuterol/ Ipratropium (Duoneb) 3 ml Q2H RESP THERAPY PRN HHN shortness of breath; Start 06/08/18 at 16:30 Budesonide (Pulmicort (Neb)) 0.5 mg BID RESP THERAPY HHN Last administered on 06/09/18at 08:27; Admin Dose 0.5 MG; Start 06/08/18 at 20:00 Docusate Sodium (Colace) 200 mg QHS PO ; Start 06/08/18 at 21:00 Levothyroxine Sodium (Synthroid) 75 mcg BEFORE BREAKFAST PO Last administered on 06/09/18at 08:12; Admin Dose 75 MCG; Start 06/09/18 at 07:00 Tamsulosin HCl (Flomax) 0.4 mg HS PO Last administered on 06/08/18at 21:24; Admin Dose 0.4 MG; Start 06/08/18 at 21:00 Hydralazine HCl (Apresoline) 10 mg Q4H PRN IV sbp >160; Start 06/08/18 at 16:30 Diagnostic Test (Pha) (Accu-Chek) 1 ea 02 XX ; Start 06/09/18 at 02:00 Insulin Aspart (Novolog Insulin Pen) NOVOLOG *MILD* ALGORITHM WITH MEALS BEDTIME SC ; Start 06/08/18 at 18:00 Guaifenesin/ Codeine Phosphate (Robitussin Ac Liquid Cup) 5 ml Q4H PRN PO cough; Start 06/08/18 at 16:30 Norepinephrine 16 mg/Dextrose 500 ml @ 1.88 mls/hr TITRATE IV Last administered on 06/08/18at 18:36; Admin Dose 5.63 MLS/HR; Start 06/08/18 at 17:00 Miscellaneous Information 1 ea NOTE XX ; Start 06/08/18 at 18:00 Glucose (Glutose) 15 gm Q15M PRN PO DECREASED GLUCOSE; Start 06/08/18 at 18:00 Glucose (Glutose) 22.5 gm Q15M PRN PO DECREASED GLUCOSE; Start 06/08/18 at 18:00 Dextrose (D50w Syringe) 25 ml Q15M PRN IV DECREASED GLUCOSE; Start 06/08/18 at 18:00 Dextrose (D50w Syringe) 50 ml Q15M PRN IV DECREASED GLUCOSE; Start 06/08/18 at 18:00 Glucagon (Glucagen) 1 mg Q15M PRN IM DECREASED GLUCOSE; Start 06/08/18 at 18:00 Glucose (Glutose) 15 gm Q15M PRN BUCCAL DECREASED GLUCOSE; Start 06/08/18 at 18:00 Norepinephrine 250 ml @ 1.875 mls/ hr TITRATE IV ; Start 06/08/18 at 19:00 Morphine Sulfate (morphine SULFATE (PF)) 2 mg Q4H PRN IV PAIN LEVEL 7-10 Last administered on 06/09/18at 13:54; Admin Dose 2 MG; Start 06/09/18 at 03:04 Epoetin Mauricio (Epogen (Esrd)) 10,000 units AFTER DIALYSIS SC ; Start 06/09/18 at 07:30 Phytonadione (Vitamin K) 10 mg ONCE ONCE IM ; Start 06/09/18 at 14:30; Stop 06/09/18 at 14:31; Status UNV Sodium Chloride 250 ml @ 0 mls/hr Q0M ONCE IV* ; Start 06/09/18 at 14:10; Stop 06/09/18 at 14:11; Status UNV Pantoprazole 80 mg/Sodium Chloride 100 ml @ 10 mls/hr Q10H IV ; Start 06/09/18 at 14:30; Status UNV Azithromycin (Zithromax) 250 mg DAILY PO ; Start 06/09/18 at 14:30; Status UNV Bisacodyl (Dulcolax) 10 mg ONCE ONCE PO ; Start 06/09/18 at 15:00; Stop 06/09/18 at 15:01; Status UNV Polyethylene Glycol/ Electrolytes (Golytely) 2,000 ml ONCE ONCE PO ; Start 06/09/18 at 15:00; Stop 06/09/18 at 15:01; Status UNV Polyethylene Glycol/ Electrolytes (Golytely) 2,000 ml 2nd Dose (GI Prep) ONCE PO ; Start 06/09/18 at 23:00; Stop 06/09/18 at 23:01; Status UNV Bisacodyl (Dulcolax) 10 mg 2nd Dose (GI Prep) ONCE PO ; Start 06/09/18 at 23:00; Stop 06/09/18 at 23:01; Status UNV VTE Prophylaxis Risk score (from Nsg)>0 risk: 9 SCD applied (from Nsg): Yes Lines/Catheters IV Catheter Type: Cox in Place: No Assessment/Plan Hospital Course subjective Patient feeling much better, however also had a bloody bowel movement, bright red blood Objective Physical exam General: Patient is laying in bed and answers questions appropriately Mentation: Patient is alert and oriented 4, Head: Normocephalic atraumatic Eyes: EOMI, pupils reactive to light Neck: Supple, nontender, midline Respiratory: Coarse to auscultation bilaterally Cardiovascular: regular rate, no obvious murmurs Gastrointestinal: non-tender to palpation, bowel sounds heard. Neurological: Moves all extremities spontaneously Skin: No new skin lesions Assessment and plan Acute hypoxic respiratory distress -Secondary to multilobular pneumonia -Improving significantly Multilobular pneumonia -IV antibiotic, broad-spectrum -ID on board -DuoNeb nebulizer, budesonide nebulizer -Cultures pending Chest pain -Likely secondary to above pneumonia and cough -Trend troponins, negative x3 Hypotension/septic shock 2/2 PNA-resolved -Off of pressors -Monitor closely Anemia with bright red blood per rectum -No reported GI bleed on admission however patient did have a bloody bowel movement today -GI consulted -Clear liquid diet -Patient's INR elevated with unknown cause, ultrasound and CT did not show any particular issues with the liver, hepatitis panel pending, -Ordered FFP and vitamin K -Monitor hemoglobin levels -Transfuse as needed -Possible EGD and colonoscopy tomorrow End-stage renal disease on hemodialysis -Nephrology consulted -Dialysis as needed Hypertension -Hold home medications for now due to hypotension Hypothyroidism -Continue home meds Diabetes mellitus -Insulin sliding scale, -A1c is 4.9, questionable if patient has diabetes BPH -Continue Flomax Disposition -Patient's septic shock is resolving however patient now has GI bleed, GI consulted, EGD and colonoscopy pending tomorrow ZAHEER MONTES DE OCA Jun 09, 2018 16:08
[2018-06-09] MEDS ORDERED: SOD CHLORIDE 0.9% 250 ML IV* ONE (16:26)
[2018-06-09] MEDS ORDERED: PHYTONADIONE 10 MG/ML INJ IM SCH (16:26)
[2018-06-09] MEDS ORDERED: BISACODYL (EC) 5 MG TAB PO SCH (16:27)
[2018-06-09] MEDS ORDERED: PEG/ELECTROLYTES 4L BTL PO SCH (17:00)
[2018-06-09] MEDS: PANTOPRAZOLE IV 80 MG in SOD CHLORIDE 0.9% 100 ML IV SCH (18:06)
[2018-06-09] MEDS: hydrALAzine 20 MG INJ IV PRN ×2 (18:07→21:09)
[2018-06-09] MEDS: AZITHROMYCIN 250 MG TAB PO SCH (18:33)
[2018-06-09] MEDS: DOCUSATE SODIUM 100 MG CAP PO SCH (19:44)
[2018-06-09] MEDS: TAMSULOSIN (SR) 0.4 MG CAP PO SCH (20:56)
[2018-06-09] MEDS ORDERED: PEG/ELECTROLYTES 4L BTL PO ONE (23:00)
[2018-06-09] MEDS ORDERED: BISACODYL (EC) 5 MG TAB PO ONE (23:00)
[2018-06-10] VITALS (21 sets, daily range): BP systolic 123–192; BP diastolic 66–91; PULSE 64–95; RESP 18–22
[2018-06-10] MEDS: ACCU-CHEK XX SCH (02:00)
[2018-06-10] MEDS: PANTOPRAZOLE IV 80 MG in SOD CHLORIDE 0.9% 100 ML IV SCH ×2 (04:32→13:44)
[2018-06-10] MEDS: LEVOTHYROXINE 75 MCG TAB PO SCH (06:14)
[2018-06-10] MEDS ORDERED: POTASSIUM CHLORIDE (SR) 20 MEQ TAB PO STA (07:33)
[2018-06-10] MEDS: INSULIN ASPART [NOVOLOG] 3 ML PEN SC SCH ×4 (07:55→21:00)
[2018-06-10] MEDS: AZITHROMYCIN 250 MG TAB PO SCH (08:07)
[2018-06-10] MEDS: PIPER-TAZO 3.375 GM IV (PMX) 100 ML IVPB SCH ×2 (08:09→22:01)
[2018-06-10] MEDS: ALBUTEROL/IPRATROPIUM (NEB) 3 ML AMP HHN SCH ×3 (08:30→20:45)
[2018-06-10] MEDS: BUDESONIDE (NEB) 0.5MG/2ML AMP HHN SCH ×2 (08:30→20:45)
[2018-06-10] MEDS ORDERED: SOD CHLORIDE 0.9% IVPB ONE (09:00)
[2018-06-10] MEDS ORDERED: DESMOPRESSIN IVPB ONE (09:00)
--- NOTE | 2018-06-10 09:47 | PN ---
DATE: 06/10/2018 SUBJECTIVE: The patient was transferred from intensive care unit to telemetry. No other acute event s noted. No hemoptysis, hematemesis, hematochezia. The patient is noted to have some bleeding aroun d the femoral catheter site. OBJECTIVE: VITAL SIGNS: Blood pressure is 152/72, respiration 18, pulse 78, temperature 97.6. HEENT: Head is normocephalic. NECK: Supple. HEART: Regular rate. LUNGS: Show diminished breath sounds at the base. ABDOMEN: Soft, nontender to palpation without rebound or guarding. EXTREMITIES: Negative for clubbing, cyanosis, no edema. DERMATOLOGIC: No rashes. MUSCULOSKELETAL: No joint effusion. NEUROLOGIC: No change in exam. MEDICATIONS: Have been reviewed. LABORATORY data: Show sodium 138, potassium 3.2, chloride 101, BUN 33, creatinine 3.49, calcium 8.1. White count 4.7, hemoglobin 10.0, platelet count is 176. ASSESSMENT AND PLAN: 1. End-stage renal disease. The patient is scheduled for dialysis today. We will dialyze for 3 riya rs 4k bath, calcium 2.5, ultrafiltrate as tolerated. 2. Anemia. The patient is status post blood transfusion. We will continue Epogen. Continue to mon itor hemoglobin and hematocrit levels, transfuse if hemoglobin levels are less than 7 g/dL. Will als o give a course of DDAVP as the patient is having oozing from his catheter site. 3. Mineral bone disorder. Monitor calcium and phosphorus levels. Continue vitamin D analogs. 4. Sepsis status post shock secondary to bilateral pneumonia. The patient is currently on pressor s upport. Continue broad-spectrum antibiotics. The patient's IV fluids were discontinued. 5. Hypoxic respiratory secondary to pneumonia. Patient clinically improving. Continue nebulizer, s upplemental oxygen. 6. Hypertension. Will continue blood pressure regimen. Ultrafiltrate with hemodialysis. 7. Hypothyroidism. Continue Synthroid. 8. Diabetes. Continue current insulin regimen. 9. Benign prostatic hypertrophy. Continue Flomax. Dictated By: NAE MENDOZA DO NR/NTS Conf#: [id number] DID#: [id number] CC: ZAHEER MONTES DE OCA MD;*EndCC*
[2018-06-10] MEDS ORDERED: PHYTONADIONE 10 MG/ML INJ SC ONE ×2 (10:00)
[2018-06-10] MEDS: CIPROFLOXACIN 0.3% 2.5 ML OPH BOTH EYES SCH ×7 (13:00→23:14)
--- NOTE | 2018-06-10 13:24 | CONS ---
Date/Time of Note Date/Time of Note DATE: 06/10/18 TIME: 13:22 Assessment/Plan Assessment/Plan Hospital Course Patient is in HD, looks comfortable, no fevers Indwelling: Left arm AV fistula, femoral triple-lumen catheter Microbiology: Blood cultures negative Chest x-ray on admission revealed a right upper lobe and left lower lobe infiltrates Antimicrobials: Zosyn, vancomycin, Zithromax Physical examination: This is a chronically ill-appearing middle-aged man who is awake in no distress. Head atraumatic normocephalic. Neck is supple. Chest rise symmetrical breath sounds with scattered crackles heart S1- S2. Abdomen soft bowel sounds present. Extremities without cyanosis. Assessment: 1. Severe sepsis status post shock 2. Pneumonia 3. End-stage renal disease, hemodialysis dependent 4. Diabetes 5. Hypertension Plan: Stable on appropriate antibiotics, will repeat cxr in am Result Diagram: 06/10/18 0524 06/10/1824 Results 24hrs Laboratory Tests Test 06/09/18 18:05 06/09/18 20:55 06/10/18 00:26 06/10/18 05:24 Hemoglobin 7.2 L 7.2 L 7.0 L Hematocrit 21.8 L 22.0 L 21.6 L Bedside Glucose 92 White Blood Count 4.7 #L Red Blood Count 2.27 L Mean Corpuscular 95.2 Volume Mean Corpuscular 30.4 Hemoglobin Mean Corpuscular 31.9 L Hemoglobin Concen t Red Cell 14.7 H Distribution Width Platelet Count 176 Mean Platelet 9.7 Volume Immature 0.600 H Granulocytes % Neutrophils % 72.0 Lymphocytes % 17.3 Monocytes % 8.8 Eosinophils % 1.1 Basophils % 0.2 Nucleated Red 0.0 Blood Cells % Immature 0.030 Granulocytes # Neutrophils # 3.4 Lymphocytes # 0.8 Monocytes # 0.4 Eosinophils # 0.1 Basophils # 0.0 Nucleated Red 0.0 Blood Cells # Prothrombin Time 20.4 #H Prothrombin Time 1.6 Ratio INR International 1.74 Normalized Ratio Activated 45.4 H Partial Thrombopl ast Time Thrombin Time 39.9 H Sodium Level 138 Potassium Level 3.2 L Chloride Level 101 Carbon Dioxide 26 Level Anion Gap 11 Blood Urea 23 H Nitrogen Creatinine 3.49 H Est Glomerular 18 L Filtrat Rate mL/min Glucose Level 70 # Calcium Level 8.1 L Phosphorus Level 3.4 Magnesium Level 2.0 Random Vancomycin 8.6 Level Test 06/10/18 07:46 06/10/18 08:01 06/10/18 09:17 06/10/18 11:34 Lab Scanned BLOOD TRANSFUSIO Report N Bedside Glucose 67 L 92 88 Consultation Date/Type/Reason Admit Date/Time Jun 08, 2018 at 16:30 Initial Consult Date Type of Consult id Exam/Review of Systems Vital Signs Vitals Vital Signs Date Temp Pulse Resp B/P (MAP) Pulse Ox O2 O2 Flow FiO2 Time Delivery Rate 06/10/18 68 12:41 06/10/18 97.4 19 127/67 99 11:35 (87) 06/10/18 Nasal 2.0 10:41 Cannula Intake and Output 06/09/18 06/09/18 06/10/18 1515:00 23:00 07:00 IntakeIntake Total 450 ml 450 ml 200 ml OutputOutput Total 0 ml BalanceBalance 450 ml 450 ml 200 ml Medications Medications Current Medications IV Flush (NS 3 ml) 3 ml PER PROTOCOL IV ; Start 06/08/18 at 16:30 Ondansetron HCl (Zofran Inj) 4 mg Q6H PRN IV NAUSEA AND/OR VOMITING; Start 06/08/18 at 16:30 Acetaminophen (Tylenol Tab) 650 mg Q6H PRN PO PAIN LEVEL 1-3 OR FEVER; Start 06/08/18 at 16:30 Acetaminophen/ Hydrocodone Bitart ([place] (5/325)) 1 tab Q6H PRN PO PAIN LEVEL 4-6; Start 06/08/18 at 16:30 Vancomycin HCl (Vanco Iv Per Pharmacy) VANCOMYCIN PER PHARMACY PER PROTOCOL XX ; Start 06/08/18 at 16:30 Piperacillin Sod/ Tazobactam Sod 100 ml @ 25 mls/hr Q12 IVPB Last administered on 06/10/18at 08:09; Admin Dose 25 MLS/HR; Start 06/08/18 at 22:00 Albuterol/ Ipratropium (Duoneb) 3 ml Q6HWA RESP THERAPY HHN Last administered on 06/10/18at 08:30; Admin Dose 3 ML; Start 06/08/18 at 20:00 Albuterol/ Ipratropium (Duoneb) 3 ml Q2H RESP THERAPY PRN HHN shortness of breath; Start 06/08/18 at 16:30 Budesonide (Pulmicort (Neb)) 0.5 mg BID RESP THERAPY HHN Last administered on 06/10/18at 08:30; Admin Dose 0.5 MG; Start 06/08/18 at 20:00 Docusate Sodium (Colace) 200 mg QHS PO ; Start 06/08/18 at 21:00 Levothyroxine Sodium (Synthroid) 75 mcg BEFORE BREAKFAST PO Last administered on 06/10/18at 06:14; Admin Dose 75 MCG; Start 06/09/18 at 07:00 Tamsulosin HCl (Flomax) 0.4 mg HS PO Last administered on 06/09/18at 20:56; Admin Dose 0.4 MG; Start 06/08/18 at 21:00 Hydralazine HCl (Apresoline) 10 mg Q4H PRN IV sbp >160 Last administered on 06/09/18at 21:09; Admin Dose 10 MG; Start 06/08/18 at 16:30 Diagnostic Test (Pha) (Accu-Chek) 1 ea 02 XX ; Start 06/09/18 at 02:00 Insulin Aspart (Novolog Insulin Pen) NOVOLOG *MILD* ALGORITHM WITH MEALS BEDTIME SC ; Start 06/08/18 at 18:00 Guaifenesin/ Codeine Phosphate (Robitussin Ac Liquid Cup) 5 ml Q4H PRN PO cough; Start 06/08/18 at 16:30 Miscellaneous Information 1 ea NOTE XX ; Start 06/08/18 at 18:00 Glucose (Glutose) 15 gm Q15M PRN PO DECREASED GLUCOSE; Start 06/08/18 at 18:00 Glucose (Glutose) 22.5 gm Q15M PRN PO DECREASED GLUCOSE; Start 06/08/18 at 18:00 Dextrose (D50w Syringe) 25 ml Q15M PRN IV DECREASED GLUCOSE; Start 06/08/18 at 18:00 Dextrose (D50w Syringe) 50 ml Q15M PRN IV DECREASED GLUCOSE; Start 06/08/18 at 18:00 Glucagon (Glucagen) 1 mg Q15M PRN IM DECREASED GLUCOSE; Start 06/08/18 at 18:00 Glucose (Glutose) 15 gm Q15M PRN BUCCAL DECREASED GLUCOSE; Start 06/08/18 at 18:00 Morphine Sulfate (morphine SULFATE (PF)) 2 mg Q4H PRN IV PAIN LEVEL 7-10 Last administered on 06/09/18at 13:54; Admin Dose 2 MG; Start 06/09/18 at 03:04 Epoetin Mauricio (Epogen (Esrd)) 10,000 units AFTER DIALYSIS SC ; Start 06/09/18 at 07:30 Pantoprazole 80 mg/Sodium Chloride 100 ml @ 10 mls/hr Q10H IV Last administered on 06/10/18at 04:32; Admin Dose 10 MLS/HR; Start 06/09/18 at 18:00 Azithromycin (Zithromax) 250 mg DAILY PO Last administered on 06/10/18at 08:07; Admin Dose 250 MG; Start 06/09/18 at 18:00 Ciprofloxacin HCl (Ciloxan 0.3% Oph) 1 drop Q2HWA BOTH EYES ; Start 06/10/18 at 11:00; Stop 06/12/18 at 10:59 Ciprofloxacin HCl (Ciloxan 0.3% Oph) 1 drop Q4H WHILE AWAKE BOTH EYES ; Start 06/12/18 at 13:00; Stop 06/17/18 at 12:59 Vancomycin HCl 250 ml @ 125 mls/hr ONCE IVPB ; Start 06/10/18 at 18:00; Stop 06/10/18 at 18:01 DROENE GARCIA NP Jun 10, 2018 13:24
--- NOTE | 2018-06-10 14:52 | PN ---
Date/Time of Note Date/Time of Note DATE: 06/10/18 TIME: 14:29 Objective Vitals Vital Signs Date Temp Pulse Resp B/P (MAP) Pulse Ox O2 O2 Flow FiO2 Time Delivery Rate 06/10/18 64 13:11 06/10/18 97.4 19 127/67 99 11:35 (87) 06/10/18 Nasal 2.0 10:41 Cannula Intake and Output 06/09/18 06/09/18 06/10/18 1515:00 23:00 07:00 IntakeIntake Total 450 ml 450 ml 200 ml OutputOutput Total 0 ml BalanceBalance 450 ml 450 ml 200 ml Results Result Diagram: 06/10/1852306/10/18523 Medications Medications Current Medications IV Flush (NS 3 ml) 3 ml PER PROTOCOL IV ; Start 06/08/18 at 16:30 Ondansetron HCl (Zofran Inj) 4 mg Q6H PRN IV NAUSEA AND/OR VOMITING; Start 06/08/18 at 16:30 Acetaminophen (Tylenol Tab) 650 mg Q6H PRN PO PAIN LEVEL 1-3 OR FEVER; Start 06/08/18 at 16:30 Acetaminophen/ Hydrocodone Bitart ([place] (5/325)) 1 tab Q6H PRN PO PAIN LEVEL 4-6; Start 06/08/18 at 16:30 Vancomycin HCl (Vanco Iv Per Pharmacy) VANCOMYCIN PER PHARMACY PER PROTOCOL XX ; Start 06/08/18 at 16:30 Piperacillin Sod/ Tazobactam Sod 100 ml @ 25 mls/hr Q12 IVPB Last administered on 06/10/18at 08:09; Admin Dose 25 MLS/HR; Start 06/08/18 at 22:00 Albuterol/ Ipratropium (Duoneb) 3 ml Q6HWA RESP THERAPY HHN Last administered on 06/10/18at 08:30; Admin Dose 3 ML; Start 06/08/18 at 20:00 Albuterol/ Ipratropium (Duoneb) 3 ml Q2H RESP THERAPY PRN HHN shortness of breath; Start 06/08/18 at 16:30 Budesonide (Pulmicort (Neb)) 0.5 mg BID RESP THERAPY HHN Last administered on 06/10/18at 08:30; Admin Dose 0.5 MG; Start 06/08/18 at 20:00 Docusate Sodium (Colace) 200 mg QHS PO ; Start 06/08/18 at 21:00 Levothyroxine Sodium (Synthroid) 75 mcg BEFORE BREAKFAST PO Last administered on 06/10/18at 06:14; Admin Dose 75 MCG; Start 06/09/18 at 07:00 Tamsulosin HCl (Flomax) 0.4 mg HS PO Last administered on 06/09/18at 20:56; Admin Dose 0.4 MG; Start 06/08/18 at 21:00 Hydralazine HCl (Apresoline) 10 mg Q4H PRN IV sbp >160 Last administered on 06/09/18at 21:09; Admin Dose 10 MG; Start 06/08/18 at 16:30 Diagnostic Test (Pha) (Accu-Chek) 1 ea 02 XX ; Start 06/09/18 at 02:00 Insulin Aspart (Novolog Insulin Pen) NOVOLOG *MILD* ALGORITHM WITH MEALS BEDTIME SC ; Start 06/08/18 at 18:00 Guaifenesin/ Codeine Phosphate (Robitussin Ac Liquid Cup) 5 ml Q4H PRN PO cough; Start 06/08/18 at 16:30 Miscellaneous Information 1 ea NOTE XX ; Start 06/08/18 at 18:00 Glucose (Glutose) 15 gm Q15M PRN PO DECREASED GLUCOSE; Start 06/08/18 at 18:00 Glucose (Glutose) 22.5 gm Q15M PRN PO DECREASED GLUCOSE; Start 06/08/18 at 18:00 Dextrose (D50w Syringe) 25 ml Q15M PRN IV DECREASED GLUCOSE; Start 06/08/18 at 18:00 Dextrose (D50w Syringe) 50 ml Q15M PRN IV DECREASED GLUCOSE; Start 06/08/18 at 18:00 Glucagon (Glucagen) 1 mg Q15M PRN IM DECREASED GLUCOSE; Start 06/08/18 at 18:00 Glucose (Glutose) 15 gm Q15M PRN BUCCAL DECREASED GLUCOSE; Start 06/08/18 at 18:00 Morphine Sulfate (morphine SULFATE (PF)) 2 mg Q4H PRN IV PAIN LEVEL 7-10 Last administered on 06/09/18at 13:54; Admin Dose 2 MG; Start 06/09/18 at 03:04 Epoetin Mauricio (Epogen (Esrd)) 10,000 units AFTER DIALYSIS SC ; Start 06/09/18 at 07:30 Pantoprazole 80 mg/Sodium Chloride 100 ml @ 10 mls/hr Q10H IV Last administered on 06/10/18at 13:44; Admin Dose 10 MLS/HR; Start 06/09/18 at 18:00 Azithromycin (Zithromax) 250 mg DAILY PO Last administered on 06/10/18at 08:07; Admin Dose 250 MG; Start 06/09/18 at 18:00 Ciprofloxacin HCl (Ciloxan 0.3% Oph) 1 drop Q2HWA BOTH EYES Last administered on 06/10/18at 13:44; Admin Dose 1 DROP; Start 06/10/18 at 11:00; Stop 06/12/18 at 10:59 Ciprofloxacin HCl (Ciloxan 0.3% Oph) 1 drop Q4H WHILE AWAKE BOTH EYES ; Start 06/12/18 at 13:00; Stop 06/17/18 at 12:59 Vancomycin HCl 250 ml @ 125 mls/hr ONCE IVPB ; Start 06/10/18 at 18:00; Stop 06/10/18 at 18:01 VTE Prophylaxis Risk score (from Ns)>0 risk: 8 SCD applied (from [facility]): Yes Lines/Catheters IV Catheter Type: Cox in Place: No Assessment/Plan Hospital Course subjective Patient still feeling weak Objective Physical exam General: Patient is laying in bed and answers questions appropriately Mentation: Patient is alert and oriented 4, Head: Normocephalic atraumatic Eyes: EOMI, pupils reactive to light Neck: Supple, nontender, midline Respiratory: Coarse to auscultation bilaterally Cardiovascular: regular rate, no obvious murmurs Gastrointestinal: non-tender to palpation, bowel sounds heard. Neurological: Moves all extremities spontaneously Skin: No new skin lesions Assessment and plan Acute hypoxic respiratory distress -Secondary to multilobular pneumonia -Improving significantly Multilobular pneumonia -IV antibiotic, broad-spectrum -ID on board -DuoNeb nebulizer, budesonide nebulizer -blood cultures pending Chest pain -Likely secondary to above pneumonia and cough -Trended troponins, negative x3 Hypotension/septic shock 2/2 PNA-resolved -Off of pressors -Monitor closely Anemia with bright red blood per rectum with elevated INR -No reported GI bleed on admission however patient did have multiple bloody stephy wel movements during admission, now stable -GI on board -Clear liquid diet -Patient's INR elevated with unknown cause, ultrasound and CT did not show any particular issues with the liver, hepatitis panel neg -Ordered FFP and vitamin K -Monitor hemoglobin levels -Transfuse as needed -egd/colonoscopy pending today End-stage renal disease on hemodialysis -Nephrology consulted -Dialysis as needed Hypertension -Hold home medications for now due to hypotension Hypothyroidism -Continue home meds Diabetes mellitus -Insulin sliding scale, -A1c is 4.9, questionable if patient has diabetes BPH -Continue Flomax Disposition -pending egd/colonoscopy ZAHEER MONTES DE OCA Jun 10, 2018 14:39
--- NOTE | 2018-06-10 16:30 | HPN ---
Date/Time of Note Date/Time of Note DATE: 06/10/18 TIME: 16:30 Interval H&P Admission Note Pt. seen H&P reviewed: No system changes KONRAD EMERSON Jun 10, 2018 16:30
--- NOTE | 2018-06-10 16:44 | PREAC ---
Date/Time of Note Date/Time of Note DATE: 06/10/18 TIME: 16:42 Anesthesia Eval and Record Evaluation Time Pre-Procedure Interview DATE: 06/10/18 TIME: 16:42 Age 58 Sex male NPO: 8 hrs Preoperative diagnosis severe anemia Planned procedure EGD colonoscopy Past Medical History Past Medical History: Includes Cardio: HTN Endo: Diabetes, Hypothyroid Renal: ESRD on dialysis Surgery & Anesthesia Issues No known issue Meds Anticoagulation: No Beta Delon within 24 hr: No Reason Beta Delon not given: Pt. not on B-Delon Reported Medications Multivit/Ca Carb/B Cmplx/Fa* (Chely-Maribel*) 1 Tab Tab, 1 TAB PO DAILY, TAB 06/08/18 Mirtazapine* (Mirtazapine*) 7.5 Mg Tablet, 7.5 MG PO HS, TAB 06/08/18 Ranitidine Hcl* (Ranitidine Hcl*) 150 Mg Tablet, 150 MG PO Q12, #60 TAB 06/08/18 Calcium Carbonate* (Calcium Carbonate*) 600 MG Ca Tab, 600 MG PO DAILY, TAB 06/08/18 Cranberry Extract (Cranberry) 425 Mg Capsule, 425 MG PO BID, CAP 06/08/18 Diphenhydramine Hcl* (Benadryl*) 50 Mg Cap, 50 MG PO Q6 PRN for ITCHING, CAP 04/15/18 Nitroglycerin* (Nitrostat*) 0.4 Mg Tab.subl, 0.4 MG SL Q5MIN PRN for CHEST PAIN, BOTTLE 04/15/18 Ondansetron Hcl* (Zofran*) 4 Mg Tablet, 4 MG PO Q6H PRN for NAUSEA AND OR VOMITING, TAB 04/15/18 Docusate Sodium* (Colace*) 100 Mg Capsule, 200 MG PO QHS, #60 CAP 04/15/18 Nifedipine* (Nifedipine ER*) 90 Mg Tablet.sa, 90 MG PO BID, TAB.SA 04/15/18 Pantoprazole* (Protonix*) 40 Mg Tablet.dr, 40 MG PO DAILY, TAB 04/15/18 Glycerin* (Glycerin (Adult)*) 1 Each Supp.rect, 1 EACH W[place] DAILY PRN for CONSTIPATION, SUPP.RECT 04/15/18 Sevelamer Hcl* (Renagel*) 800 Mg Tablet, 1600 MG PO WITH MEALS, TAB 04/15/18 Hydralazine Hcl* (Hydralazine Hcl*) 50 Mg Tab, 50 MG PO BID PRN for ELEVATED BLOOD PRESSURE, #60 TAB HOLD FOR SBP<110 OR HR <60 04/15/18 Levothyroxine Sodium* (Levoxyl*) 75 Mcg Tablet, 75 MCG PO BEFORE BREAKFAST, #30 TAB 04/15/18 Tamsulosin Hcl* (Tamsulosin Hcl*) 0.4 Mg Cap.er.24h, 0.4 MG PO HS, CAP 04/15/18 Hydrocodone/Acetaminophen ([place] 5-325 Tablet) 1 Each Tablet, 2 EACH PO Q6 PRN for SEVERE PAIN LEVEL 7-10, TAB 04/15/18 Morphine Sulfate* (Ms Contin*) 15 Mg Tablet.sa, 15 MG PO Q12, TAB 04/15/18 Atropine Sulfate/0.9 %Sod Chlr (Atropine 0.01%-Ns Eye Drops) 10 Ml Drops, 1 DRP RIGHT EYE BID, BOTTLE 04/15/18 Magnesium Citrate* (Magnesium Citrate*) 296 Ml Solution, 296 ML PO ONCE PRN for CONSTIPATION, #1 BOTTLE 04/15/18 Levalbuterol* (Xopenex* HFA) 15 Gm Inha, 2 PUFFS INH Q4H PRN for WHEEZING AND SOB, INHALER 04/15/18 Discontinued Reported Medications Loperamide Hcl* (Loperamide Hcl*) 2 Mg Cap, 2 MG PO prn PRN for DIARRHEA, CAP 04/15/18 Clonidine Hcl* (Clonidine Hcl*) 0.1 Mg Tab, 0.1 MG PO prn PRN for ELEVATED BLOOD PRESSURE, TAB systolic 180 or higher and/or diastolic 100 or higher and/or symtomatic 04/15/18 Calcium Carbonate* (Calcium Carbonate*) 600 MG Ca Tab, 600 MG PO DAILY, TAB 04/15/18 Cranberry Extract (Cranberry) 425 Mg Capsule, 425 MG PO DAILY, CAP 04/15/18 Finasteride* (Proscar*) 5 Mg Tablet, 5 MG PO DAILY, TAB 04/15/18 Bisacodyl (Dulcolax) 10 Mg Supp.rect, 10 MG RC DAILY PRN for CONSTIPATION, SUPP.RECT 04/15/18 Guaifenesin-Dextromethorphan* (Robitussin* DM) 100MG/10MG/5ML Syrup, 10 ML PO Q6H PRN for COUGH, ML 04/15/18 Diphenhydramine Hcl* (Benadryl*) 50 Mg Cap, 50 MG PO QHS PRN for INSOMNIA, CAP 04/15/18 Current Medications IV Flush (NS 3 ml) 3 ml PER PROTOCOL IV ; Start 06/08/18 at 16:30 Ondansetron HCl (Zofran Inj) 4 mg Q6H PRN IV NAUSEA AND/OR VOMITING; Start 06/08/18 at 16:30 Acetaminophen (Tylenol Tab) 650 mg Q6H PRN PO PAIN LEVEL 1-3 OR FEVER; Start 06/08/18 at 16:30 Acetaminophen/ Hydrocodone Bitart ([place] (5/325)) 1 tab Q6H PRN PO PAIN LEVEL 4-6; Start 06/08/18 at 16:30 Vancomycin HCl (Vanco Iv Per Pharmacy) VANCOMYCIN PER PHARMACY PER PROTOCOL XX ; Start 06/08/18 at 16:30 Piperacillin Sod/ Tazobactam Sod 100 ml @ 25 mls/hr Q12 IVPB Last administered on 06/10/18at 08:09; Admin Dose 25 MLS/HR; Start 06/08/18 at 22:00 Albuterol/ Ipratropium (Duoneb) 3 ml Q6HWA RESP THERAPY HHN Last administered on 06/10/18at 14:37; Admin Dose 3 ML; Start 06/08/18 at 20:00 Albuterol/ Ipratropium (Duoneb) 3 ml Q2H RESP THERAPY PRN HHN shortness of breath; Start 06/08/18 at 16:30 Budesonide (Pulmicort (Neb)) 0.5 mg BID RESP THERAPY HHN Last administered on 06/10/18at 08:30; Admin Dose 0.5 MG; Start 06/08/18 at 20:00 Docusate Sodium (Colace) 200 mg QHS PO ; Start 06/08/18 at 21:00 Levothyroxine Sodium (Synthroid) 75 mcg BEFORE BREAKFAST PO Last administered on 06/10/18at 06:14; Admin Dose 75 MCG; Start 06/09/18 at 07:00 Tamsulosin HCl (Flomax) 0.4 mg HS PO Last administered on 06/09/18at 20:56; Admin Dose 0.4 MG; Start 06/08/18 at 21:00 Hydralazine HCl (Apresoline) 10 mg Q4H PRN IV sbp >160 Last administered on 06/09/18at 21:09; Admin Dose 10 MG; Start 06/08/18 at 16:30 Diagnostic Test (Pha) (Accu-Chek) 1 ea 02 XX ; Start 06/09/18 at 02:00 Insulin Aspart (Novolog Insulin Pen) NOVOLOG *MILD* ALGORITHM WITH MEALS BEDTIME SC ; Start 06/08/18 at 18:00 Guaifenesin/ Codeine Phosphate (Robitussin Ac Liquid Cup) 5 ml Q4H PRN PO cough; Start 06/08/18 at 16:30 Miscellaneous Information 1 ea NOTE XX ; Start 06/08/18 at 18:00 Glucose (Glutose) 15 gm Q15M PRN PO DECREASED GLUCOSE; Start 06/08/18 at 18:00 Glucose (Glutose) 22.5 gm Q15M PRN PO DECREASED GLUCOSE; Start 06/08/18 at 18:00 Dextrose (D50w Syringe) 25 ml Q15M PRN IV DECREASED GLUCOSE; Start 06/08/18 at 18:00 Dextrose (D50w Syringe) 50 ml Q15M PRN IV DECREASED GLUCOSE; Start 06/08/18 at 18:00 Glucagon (Glucagen) 1 mg Q15M PRN IM DECREASED GLUCOSE; Start 06/08/18 at 18:00 Glucose (Glutose) 15 gm Q15M PRN BUCCAL DECREASED GLUCOSE; Start 06/08/18 at 18:00 Morphine Sulfate (morphine SULFATE (PF)) 2 mg Q4H PRN IV PAIN LEVEL 7-10 Last administered on 06/09/18at 13:54; Admin Dose 2 MG; Start 06/09/18 at 03:04 Epoetin Mauricio (Epogen (Esrd)) 10,000 units AFTER DIALYSIS SC ; Start 06/09/18 at 07:30 Pantoprazole 80 mg/Sodium Chloride 100 ml @ 10 mls/hr Q10H IV Last administered on 06/10/18at 13:44; Admin Dose 10 MLS/HR; Start 06/09/18 at 18:00 Azithromycin (Zithromax) 250 mg DAILY PO Last administered on 06/10/18at 08:07; Admin Dose 250 MG; Start 06/09/18 at 18:00 Ciprofloxacin HCl (Ciloxan 0.3% Oph) 1 drop Q2HWA BOTH EYES Last administered on 06/10/18at 15:08; Admin Dose 1 DROP; Start 06/10/18 at 11:00; Stop 06/12/18 at 10:59 Ciprofloxacin HCl (Ciloxan 0.3% Oph) 1 drop Q4H WHILE AWAKE BOTH EYES ; Start 06/12/18 at 13:00; Stop 06/17/18 at 12:59 Vancomycin HCl 250 ml @ 125 mls/hr ONCE IVPB ; Start 06/10/18 at 18:00; Stop 06/10/18 at 18:01 Meds reviewed: Yes Allergies Coded Allergies: No Known Allergies (Verified Allergy, Unknown, 04/15/18) Allergies Reviewed: Yes Labs/Studies Labs Reviewed: Reviewed by anesthesiologist Result Diagram: 06/10/1852306/10/18 0524 Laboratory Tests 06/10/18 05:24 test: N/A Studies: ECG (sr), CXR (cardiomegally. infiltration ) Pre-procedure Exam Last vitals Vital Signs Date Temp Pulse Resp B/P (MAP) Pulse Ox O2 O2 Flow FiO2 Time Delivery Rate 06/10/18 97.7 87 19 152/70 95 15:49 (97) 06/10/18 Nasal 3.0 14:37 Cannula Airway: Adequate mouth opening Mallampati: Mallampati I Teeth: Abnormal (no teeth uppert) Lung: Normal Heart: Normal ASA Physical Status ASA physical status: 3 Emergency: None Planned Anesthetic General/MAC: MAC Pre-operative Attestations Prior to commencing anesthesia and surgery, the patient was re-evaluated, there was verification of: *The patient's identity *The results of appropriate recent lab work and preoperative vital signs *The above evaluation not changing prior to induction *Anesthetic plan, risk benefits, alternative and complications discussed with patient/family; questions answered; patient/family understands, accepts and wishes to proceed. LUZ MARIA [place] MD Jun 10, 2018 16:44
[2018-06-10] MEDS ORDERED: PROPOFOL 20 ML ONE (16:45)
[2018-06-10] MEDS ORDERED: FENTAnyl 50 MCG/ML VIAL IV PRN ×3 (17:30)
[2018-06-10] MEDS ORDERED: HYDROmorphONE 1 MG/5 ML IV SYRINGE IV PRN (17:30)
[2018-06-10] MEDS ORDERED: ONDANSETRON 4 MG INJ IV PRN (17:30)
--- NOTE | 2018-06-10 17:46 | PAC ---
Date/Time of Note Date/Time of Note DATE: 06/10/18 TIME: 17:46 Post-Anesthesia Notes Post-Anesthesia Note Last documented vital signs Vital Signs Date Temp Pulse Resp B/P (MAP) Pulse Ox O2 O2 Flow FiO2 Time Delivery Rate 06/10/18 97.7 87 19 152/70 95 15:49 (97) 06/10/18 Nasal 3.0 14:37 Cannula Activity: WNL Respiratory function: WNL Cardiovascular function: WNL Mental status: Baseline Pain reasonably controlled: Yes Hydration appropriate: Yes Nausea/Vomiting absent: No LUZ MARIA YN MD Jun 10, 2018 17:46
[2018-06-10] MEDS ORDERED: VANCOMYCIN 1 GM 250 ML IVPB SCH (18:00)
[2018-06-10] MEDS: morphine SULFATE/PF (2 MG/2 ML) SYG IV PRN ×2 (19:01→23:48)
[2018-06-10] MEDS: ONDANSETRON 4 MG INJ IV PRN (19:01)
[2018-06-10] MEDS: hydrALAzine 20 MG INJ IV PRN (19:59)
[2018-06-10] MEDS: DOCUSATE SODIUM 100 MG CAP PO SCH (21:00)
[2018-06-10] MEDS: TAMSULOSIN (SR) 0.4 MG CAP PO SCH (21:08)
[2018-06-10] MEDS: NIFEdipine (XL) 60 MG TAB PO SCH (21:22)
[2018-06-11] MEDS: CIPROFLOXACIN 0.3% 2.5 ML OPH BOTH EYES SCH ×12 (01:44→22:44)
[2018-06-11 02:00] VITALS: BP 154/77; PULSE 85; RESP 18
[2018-06-11] MEDS: ACCU-CHEK XX SCH (02:00)
[2018-06-11] MEDS: PANTOPRAZOLE IV 80 MG in SOD CHLORIDE 0.9% 100 ML IV SCH ×2 (03:53→09:31)
[2018-06-11] MEDS: LEVOTHYROXINE 75 MCG TAB PO SCH (06:49)
[2018-06-11] MEDS: INSULIN ASPART [NOVOLOG] 3 ML PEN SC SCH ×4 (08:00→20:56)
[2018-06-11 08:11] VITALS: BP 107/65; PULSE 72; RESP 18
[2018-06-11] MEDS: ALBUTEROL/IPRATROPIUM (NEB) 3 ML AMP HHN SCH ×3 (08:13→19:45)
[2018-06-11] MEDS: BUDESONIDE (NEB) 0.5MG/2ML AMP HHN SCH ×2 (08:20→19:45)
--- NOTE | 2018-06-11 08:30 | PN ---
DATE: 06/11/2018 SUBJECTIVE: The patient is stable, no events overnight. The patient is status post blood transfusion . OBJECTIVE: VITAL SIGNS: Blood pressure is 154/77, respiration 18, pulse 85, temperature 98.8. HEENT: Head is normocephalic. NECK: Supple. HEART: Regular rate. LUNGS: Show diminished breath sounds at the base. ABDOMEN: Soft, nontender to palpation without rebound or guarding. EXTREMITIES: Negative for clubbing, cyanosis, no edema. DERMATOLOGIC: No rashes. MUSCULOSKELETAL: No joint effusions. NEUROLOGIC: No change in exam. MEDICATIONS: The patient's medications have been reviewed. LABORATORY DATA: Has been reviewed. ASSESSMENT AND PLAN: 1. End-stage renal disease. The patient had hemodialysis yesterday, tolerated well. Plan for dialy sis tomorrow. 2. Anemia. Patient is status post blood transfusion, was seen by gastroenterology, status post EGD, colonoscopy. Plan is to continue to monitor hemoglobin and hematocrit levels. Continue proton pump inhibitor. Continue Epogen. 3. Mineral bone disorder. Monitor calcium and phosphorus levels. 4. Sepsis, status post shock secondary to pneumonia. The patient will continue broad spectrum antib iotics. 5. Hypoxemic respiratory failure secondary to pneumonia. Continue medical management, nebulizers, s upplemental oxygen. 6. Hypertension. Continue blood pressure regimen. Continue ultrafiltration dialysis. 7. Hypothyroidism. Continue Synthroid. 8. Diabetes. Continue current insulin regimen. 9. Benign prostatic hypertrophy. Continue Flomax. Dictated By: NAE SINHA/ERICKA Conf#: [id number] DID#: [id number]
[2018-06-11] MEDS: NIFEdipine (XL) 60 MG TAB PO SCH (08:44)
[2018-06-11] MEDS: AZITHROMYCIN 250 MG TAB PO SCH (08:44)
[2018-06-11] MEDS: PIPER-TAZO 3.375 GM IV (PMX) 100 ML IVPB SCH ×2 (08:45→20:55)
[2018-06-11] MEDS: HYDROCODONE/APAP (5/325) TAB PO PRN (09:37)
[2018-06-11] MEDS: morphine SULFATE/PF (2 MG/2 ML) SYG IV PRN ×3 (09:41→20:56)
[2018-06-11] MEDS ORDERED: PANTOPRAZOLE (EC) 40 MG TAB PO ONE (10:00)
[2018-06-11] MEDS ORDERED: PHYTONADIONE 10 MG/ML INJ SC ONE (11:00)
--- NOTE | 2018-06-11 13:59 | PN ---
Date/Time of Note Date/Time of Note DATE: 06/11/18 TIME: 13:57 Objective Vitals Vital Signs Date Temp Pulse Resp B/P (MAP) Pulse Ox O2 O2 Flow FiO2 Time Delivery Rate 06/11/18 96 2.0 08:14 06/11/18 62 16 Nasal 08:14 Cannula 06/11/18 98.1 107/65 08:11 (79) Intake and Output 06/10/18 06/10/18 06/11/18 1515:00 23:00 07:00 IntakeIntake Total 240 ml 400 ml 670 ml OutputOutput Total 2500 ml 2 ml BalanceBalance -2260 ml 400 ml 668 ml Results Result Diagram: 06/11/18 0915 06/11/18 0806 Medications Medications Current Medications IV Flush (NS 3 ml) 3 ml PER PROTOCOL IV ; Start 06/08/18 at 16:30 Ondansetron HCl (Zofran Inj) 4 mg Q6H PRN IV NAUSEA AND/OR VOMITING Last administered on 06/10/18at 19:01; Admin Dose 4 MG; Start 06/08/18 at 16:30 Acetaminophen (Tylenol Tab) 650 mg Q6H PRN PO PAIN LEVEL 1-3 OR FEVER; Start 06/08/18 at 16:30 Acetaminophen/ Hydrocodone Bitart ([place] (5/325)) 1 tab Q6H PRN PO PAIN LEVEL 4-6; Start 06/08/18 at 16:30 Vancomycin HCl (Vanco Iv Per Pharmacy) VANCOMYCIN PER PHARMACY PER PROTOCOL XX ; Start 06/08/18 at 16:30 Piperacillin Sod/ Tazobactam Sod 100 ml @ 25 mls/hr Q12 IVPB Last administered on 06/11/18at 08:45; Admin Dose 25 MLS/HR; Start 06/08/18 at 22:00 Albuterol/ Ipratropium (Duoneb) 3 ml Q6HWA RESP THERAPY HHN Last administered on 06/11/18at 08:13; Admin Dose 3 ML; Start 06/08/18 at 20:00 Albuterol/ Ipratropium (Duoneb) 3 ml Q2H RESP THERAPY PRN HHN shortness of breath; Start 06/08/18 at 16:30 Budesonide (Pulmicort (Neb)) 0.5 mg BID RESP THERAPY HHN Last administered on 06/10/18at 20:45; Admin Dose 0.5 MG; Start 06/08/18 at 20:00 Docusate Sodium (Colace) 200 mg QHS PO ; Start 06/08/18 at 21:00 Levothyroxine Sodium (Synthroid) 75 mcg BEFORE BREAKFAST PO Last administered on 06/11/18at 06:49; Admin Dose 75 MCG; Start 06/09/18 at 07:00 Tamsulosin HCl (Flomax) 0.4 mg HS PO Last administered on 06/10/18at 21:08; Admin Dose 0.4 MG; Start 06/08/18 at 21:00 Hydralazine HCl (Apresoline) 10 mg Q4H PRN IV sbp >160 Last administered on at 19:59; Admin Dose 10 MG; Start 06/08/18 at 16:30 Diagnostic Test (Pha) (Accu-Chek) 1 ea 02 XX ; Start 06/09/18 at 02:00 Insulin Aspart (Novolog Insulin Pen) NOVOLOG *MILD* ALGORITHM WITH MEALS BEDTIME SC ; Start 06/08/18 at 18:00 Guaifenesin/ Codeine Phosphate (Robitussin Ac Liquid Cup) 5 ml Q4H PRN PO cough; Start 06/08/18 at 16:30 Miscellaneous Information 1 ea NOTE XX ; Start 06/08/18 at 18:00 Glucose (Glutose) 15 gm Q15M PRN PO DECREASED GLUCOSE; Start 06/08/18 at 18:00 Glucose (Glutose) 22.5 gm Q15M PRN PO DECREASED GLUCOSE; Start 06/08/18 at 18:00 Dextrose (D50w Syringe) 25 ml Q15M PRN IV DECREASED GLUCOSE; Start 06/08/18 at 18:00 Dextrose (D50w Syringe) 50 ml Q15M PRN IV DECREASED GLUCOSE; Start 06/08/18 at 18:00 Glucagon (Glucagen) 1 mg Q15M PRN IM DECREASED GLUCOSE; Start 06/08/18 at 18:00 Glucose (Glutose) 15 gm Q15M PRN BUCCAL DECREASED GLUCOSE; Start 06/08/18 at 18:00 Morphine Sulfate (morphine SULFATE (PF)) 2 mg Q4H PRN IV PAIN LEVEL 7-10 Last administered on 06/11/18at 09:41; Admin Dose 2 MG; Start 06/09/18 at 03:04 Epoetin Mauricio (Epogen (Esrd)) 10,000 units AFTER DIALYSIS SC ; Start 06/09/18 at 07:30 Azithromycin (Zithromax) 250 mg DAILY PO Last administered on 06/11/18at 08:44; Admin Dose 250 MG; Start 06/09/18 at 18:00 Ciprofloxacin HCl (Ciloxan 0.3% Oph) 1 drop Q2HWA BOTH EYES Last administered on 06/11/18at 12:05; Admin Dose 1 DROP; Start 06/10/18 at 11:00; Stop 06/12/18 at 10:59 Ciprofloxacin HCl (Ciloxan 0.3% Oph) 1 drop Q4H WHILE AWAKE BOTH EYES ; Start 06/12/18 at 13:00; Stop 06/17/18 at 12:59 Nifedipine (Procardia Xl) 30 mg BID PO ; Start 06/11/18 at 21:00 Pantoprazole (Protonix Tab) 40 mg BID@06,18 PO ; Start 06/11/18 at 18:00 VTE Prophylaxis Risk score (from Ns)>0 risk: 7 SCD applied (from [facility] [place]): Yes Lines/Catheters IV Catheter Type: Cox in Place: No Assessment/Plan Hospital Course subjective Patient still feeling weak Objective Physical exam General: Patient is laying in bed and answers questions appropriately Mentation: Patient is alert and oriented 4, Head: Normocephalic atraumatic Eyes: EOMI, pupils reactive to light Neck: Supple, nontender, midline Respiratory: Coarse to auscultation bilaterally Cardiovascular: regular rate, no obvious murmurs Gastrointestinal: non-tender to palpation, bowel sounds heard. Neurological: Moves all extremities spontaneously Skin: No new skin lesions Assessment and plan Acute hypoxic respiratory distress -Secondary to multilobular pneumonia -Improved significantly Multilobular pneumonia -IV antibiotic, broad-spectrum -ID on board -DuoNeb nebulizer, budesonide nebulizer -blood cultures pending Chest pain -Likely secondary to above pneumonia and cough -Trended troponins, negative x3 Hypotension/septic shock 2/2 PNA-resolved -Off of pressors -Monitor closely Anemia with bright red blood per rectum with elevated INR -No reported GI bleed on admission however patient did have multiple bloody bowel movements during admission, now stable -GI on board -Clear liquid diet -Patient's INR elevated with unknown cause, ultrasound and CT did not show any particular issues with the liver, hepatitis panel neg -Ordered FFP and vitamin K -Monitor hemoglobin levels -Transfuse as needed -egd/colonoscopy not showing clear reason for GI bleed, found only gastritis on EGD, nothing else compelling on colonoscopy End-stage renal disease on hemodialysis -Nephrology consulted -Dialysis as needed Hypertension -reintroducing home medications, although the dose may be too high, adjusting as needing Hypothyroidism -Continue home meds Diabetes mellitus -Insulin sliding scale, -A1c is 4.9, questionable if patient has diabetes BPH -Continue Flomax Disposition -continue abx, cont to monitor INR as it is lowering, GI recs appreciated ZAHEER MONTES DE OCA Jun 11, 2018 13:59
[2018-06-11 14:54] VITALS: BP 101/58; PULSE 60; RESP 18
--- NOTE | 2018-06-11 15:23 | CONS ---
Date/Time of Note Date/Time of Note DATE: 06/11/18 TIME: 15:22 Assessment/Plan Assessment/Plan Hospital Course Sleeping, looks comfortable, no fevers Indwelling: Left arm AV fistula, femoral triple-lumen catheter Microbiology: Blood cultures negative Chest x-ray on admission revealed a right upper lobe and left lower lobe infiltrates Antimicrobials: Zosyn, vancomycin, Zithromax Physical examination: This is a chronically ill-appearing middle-aged man who is awake in no distress. Head atraumatic normocephalic. Neck is supple. Chest rise symmetrical breath sounds with scattered crackles heart S1-S2. Abdomen soft bowel sounds present. Extremities without cyanosis. Assessment: 1. Severe sepsis status post shock 2. Pneumonia 3. End-stage renal disease, hemodialysis dependent 4. Diabetes 5. Hypertension Plan: Stable, CXR noted, continue antibiotics Result Diagram: 06/11/18 0915 06/11/18 0806 Results 24hrs Laboratory Tests Test 06/10/18 18:51 06/10/18 21:11 06/10/18 22:28 06/11/18 05:01 Bedside Glucose 86 74 108 Fibrinogen 374.0 Test 06/11/18 06:12 06/11/18 08:02 06/11/18 08:06 06/11/18 09:15 Lab Scanned BLOOD TRANSFUSIO Report N Bedside Glucose 92 White Blood Count 4.5 L 4.5 L Red Blood Count 2.95 #L 2.91 L Hemoglobin 9.1 #L 9.0 L Hematocrit 27.3 #L 27.1 L Mean Corpuscular 92.5 93.1 Volume Mean Corpuscular 30.8 30.9 Hemoglobin Mean Corpuscular 33.3 33.2 Hemoglobin Concen t Red Cell 15.0 H 14.9 H Distribution Width Platelet Count 165 145 Mean Platelet 9.2 9.1 Volume Immature 0.400 0.400 Granulocytes % Neutrophils % 71.1 70.1 Lymphocytes % 17.7 17.2 Monocytes % 7.5 8.5 Eosinophils % 3.1 3.4 Basophils % 0.2 0.4 Nucleated Red 0.0 0.0 Blood Cells % Immature 0.020 0.020 Granulocytes # Neutrophils # 3.2 3.1 Lymphocytes # 0.8 0.8 Monocytes # 0.3 0.4 Eosinophils # 0.1 0.2 Basophils # 0.0 0.0 Nucleated Red 0.0 0.0 Blood Cells # Prothrombin Time 17.8 H Prothrombin Time 1.4 Ratio INR International 1.46 Normalized Ratio Activated 36.6 H Partial Thrombopl ast Time Thrombin Time 17.2 Sodium Level 139 Potassium Level 3.8 Chloride Level 101 Carbon Dioxide 28 Level Anion Gap 10 Blood Urea 11 # Nitrogen Creatinine 2.51 H Est Glomerular 27 L Filtrat Rate mL/min Glucose Level 99 Calcium Level 8.1 L Phosphorus Level 2.3 #L Magnesium Level 1.9 Segmented 72 Neutrophils % (Manual) Band Neutrophils 6 H % (Manual) Lymphocytes % 12 L (Manual) Monocytes % 9 (Manual) Eosinophils % 1 (Manual) Neutrophils # 3.2 (Manual) Band Neutrophils 0.2 # Lymphocytes 0.5 L (Manual) Monocytes # 0.4 (Manual) Platelet Estimate NORMAL Polychromasia 2+ Anisocytosis 1+ Test 06/11/18 12:03 Bedside Glucose 119 Consultation Date/Type/Reason Admit Date/Time Jun 08, 2018 at 16:30 Initial Consult Date Type of Consult id Exam/Review of Systems Vital Signs Vitals Vital Signs Date Temp Pulse Resp B/P (MAP) Pulse Ox O2 O2 Flow FiO2 Time Delivery Rate 06/11/18 97.9 60 18 101/58 97 Nasal 2.0 14:54 (72) Cannula Intake and Output 06/10/18 06/10/18 06/11/18 1515:00 23:00 07:00 IntakeIntake Total 240 ml 400 ml 670 ml OutputOutput Total 2500 ml 2 ml BalanceBalance -2260 ml 400 ml 668 ml Medications Medications Current Medications IV Flush (NS 3 ml) 3 ml PER PROTOCOL IV ; Start 06/08/18 at 16:30 Ondansetron HCl (Zofran Inj) 4 mg Q6H PRN IV NAUSEA AND/OR VOMITING Last administered on 06/10/18at 19:01; Admin Dose 4 MG; Start 06/08/18 at 16:30 Acetaminophen (Tylenol Tab) 650 mg Q6H PRN PO PAIN LEVEL 1-3 OR FEVER; Start 06/08/18 at 16:30 Acetaminophen/ Hydrocodone Bitart ([place] (5/325)) 1 tab Q6H PRN PO PAIN LEVEL 4-6; Start 06/08/18 at 16:30 Vancomycin HCl (Vanco Iv Per Pharmacy) VANCOMYCIN PER PHARMACY PER PROTOCOL XX ; Start 06/08/18 at 16:30 Piperacillin Sod/ Tazobactam Sod 100 ml @ 25 mls/hr Q12 IVPB Last administered on 06/11/18at 08:45; Admin Dose 25 MLS/HR; Start 06/08/18 at 22:00 Albuterol/ Ipratropium (Duoneb) 3 ml Q6HWA RESP THERAPY HHN Last administered on 06/11/18at 14:30; Admin Dose 3 ML; Start 06/08/18 at 20:00 Albuterol/ Ipratropium (Duoneb) 3 ml Q2H RESP THERAPY PRN HHN shortness of breath; Start 06/08/18 at 16:30 Budesonide (Pulmicort (Neb)) 0.5 mg BID RESP THERAPY HHN Last administered on 06/10/18at 20:45; Admin Dose 0.5 MG; Start 06/08/18 at 20:00 Docusate Sodium (Colace) 200 mg QHS PO ; Start 06/08/18 at 21:00 Levothyroxine Sodium (Synthroid) 75 mcg BEFORE BREAKFAST PO Last administered on 06/11/18at 06:49; Admin Dose 75 MCG; Start 06/09/18 at 07:00 Tamsulosin HCl (Flomax) 0.4 mg HS PO Last administered on 06/10/18at 21:08; Admin Dose 0.4 MG; Start 06/08/18 at 21:00 Hydralazine HCl (Apresoline) 10 mg Q4H PRN IV sbp >160 Last administered on at 19:59; Admin Dose 10 MG; Start 06/08/18 at 16:30 Diagnostic Test (Pha) (Accu-Chek) 1 ea 02 XX ; Start 06/09/18 at 02:00 Insulin Aspart (Novolog Insulin Pen) NOVOLOG *MILD* ALGORITHM WITH MEALS BEDTIME SC ; Start 06/08/18 at 18:00 Guaifenesin/ Codeine Phosphate (Robitussin Ac Liquid Cup) 5 ml Q4H PRN PO cough; Start 06/08/18 at 16:30 Miscellaneous Information 1 ea NOTE XX ; Start 06/08/18 at 18:00 Glucose (Glutose) 15 gm Q15M PRN PO DECREASED GLUCOSE; Start 06/08/18 at 18:00 Glucose (Glutose) 22.5 gm Q15M PRN PO DECREASED GLUCOSE; Start 06/08/18 at 18:00 Dextrose (D50w Syringe) 25 ml Q15M PRN IV DECREASED GLUCOSE; Start 06/08/18 at 18:00 Dextrose (D50w Syringe) 50 ml Q15M PRN IV DECREASED GLUCOSE; Start 06/08/18 at 18:00 Glucagon (Glucagen) 1 mg Q15M PRN IM DECREASED GLUCOSE; Start 06/08/18 at 18:00 Glucose (Glutose) 15 gm Q15M PRN BUCCAL DECREASED GLUCOSE; Start 06/08/18 at 18:00 Morphine Sulfate (morphine SULFATE (PF)) 2 mg Q4H PRN IV PAIN LEVEL 7-10 Last administered on 06/11/18at 14:17; Admin Dose 2 MG; Start 06/09/18 at 03:04 Epoetin Mauricio (Epogen (Esrd)) 10,000 units AFTER DIALYSIS SC ; Start 06/09/18 at 07:30 Azithromycin (Zithromax) 250 mg DAILY PO Last administered on 06/11/18at 08:44; Admin Dose 250 MG; Start 06/09/18 at 18:00 Ciprofloxacin HCl (Ciloxan 0.3% Oph) 1 drop Q2HWA BOTH EYES Last administered on 06/11/18at 12:05; Admin Dose 1 DROP; Start 06/10/18 at 11:00; Stop 06/12/18 at 10:59 Ciprofloxacin HCl (Ciloxan 0.3% Oph) 1 drop Q4H WHILE AWAKE BOTH EYES ; Start 06/12/18 at 13:00; Stop 06/17/18 at 12:59 Nifedipine (Procardia Xl) 30 mg BID PO ; Start 06/11/18 at 21:00 Pantoprazole (Protonix Tab) 40 mg BID@06,18 PO ; Start 06/11/18 at 18:00 DORENE GARCIA NP Jun 11, 2018 15:23
--- NOTE | 2018-06-11 16:25 | PN ---
Date/Time of Note Date/Time of Note DATE: 06/11/18 TIME: 16:14 Assessment/Plan VTE Prophylaxis Risk score (from Nsg)>0 risk: 7 SCD applied (from Nsg): Yes Pharmacological prophylaxis: NA/contraindicated Pharm contraindication: bleeding Lines/Catheters IV Catheter Type (from Nrsg): Urinary Cath still in place: No Assessment/Plan Assessment/Plan Assessment: Hematochezia Severe normocytic anemia S/p EGD/Colonoscopy 06/10/18 -Gastritis -Normal colonoscopy PNA- being followed by ID ESRD with HD Pt in isolation- r/o MRSA HTN DM BPH Plan: Stool for H. pylori Advance diet to diabetic Continue Protonix Monitor h/h transfuse as needed Patient seen in collaboration with Dr. Alvarado Subjective: Patient is stable. There is no evidence of overt GI bleeding. Hemoglobin remains 9.0. Patient is having watery brown bowel movements. Patient denies abdominal pain, nausea or vomiting. No signs of hematochezia. Results of EGD/colonoscopy discussed with the patient. We will check the stool for H. pylori and advance the diet to regular diabetic. PHYSICAL EXAMINATION: GENERAL: Well developed, well nourished, alert & oriented x 3, in no acute distress SKIN: No lesions, no stigmata chronic liver disease, no evidence of bleeding diathesis LYMPHATIC: No palpable lymphadenopathy. HEAD: Normocephalic, atraumatic, no tenderness. EYES: Pupils equal reactive to light and accommodation, full extraocular movements, sclera clear, non-icteric, no discharge. EARS/NOSE AND THROAT: Ears normal, nose normal, oropharynx normal, oral membranes well hydrated without lesions. NECK: Supple, no masses, thyroid normal, JVP within normal limits, carotids normal without bruits. CHEST: Inspection within normal limits. CARDIOVASCULAR: Heart: Regular rate and rhythm, no murmurs, gallops or rubs. Peripheral pulses present within normal limits, no cyanosis, clubbing or edemas. No pulsatile abdominal mass RESPIRATORY: Lungs clear to auscultation and percussion, no wheezing, no rubs GASTROINTESTINAL AND LIVER: Abdomen: Soft, non tenderness, non-distended, no hernias, no masses, no organomegaly, no ascites, no guarding, no rebound tenderness, normoactive bowel sounds. Rectal: Deferred. GENITOURINARY: Male genitalia within normal limits. Cox catheter in place EXTREMITIES: No cyanosis, clubbing or edema. Result Diagram: 06/11/18 0915 06/11/18 0806 Results 24hrs Laboratory Tests Test 06/10/18 18:51 06/10/18 21:11 06/10/18 22:28 06/11/18 05:01 Bedside Glucose 86 74 108 Fibrinogen 374.0 Test 06/11/18 06:12 06/11/18 08:02 06/11/18 08:06 06/11/18 09:15 Lab Scanned BLOOD TRANSFUSIO Report N Bedside Glucose 92 White Blood Count 4.5 L 4.5 L Red Blood Count 2.95 #L 2.91 L Hemoglobin 9.1 #L 9.0 L Hematocrit 27.3 #L 27.1 L Mean Corpuscular 92.5 93.1 Volume Mean Corpuscular 30.8 30.9 Hemoglobin Mean Corpuscular 33.3 33.2 Hemoglobin Concen t Red Cell 15.0 H 14.9 H Distribution Width Platelet Count 165 145 Mean Platelet 9.2 9.1 Volume Immature 0.400 0.400 Granulocytes % Neutrophils % 71.1 70.1 Lymphocytes % 17.7 17.2 Monocytes % 7.5 8.5 Eosinophils % 3.1 3.4 Basophils % 0.2 0.4 Nucleated Red 0.0 0.0 Blood Cells % Immature 0.020 0.020 Granulocytes # Neutrophils # 3.2 3.1 Lymphocytes # 0.8 0.8 Monocytes # 0.3 0.4 Eosinophils # 0.1 0.2 Basophils # 0.0 0.0 Nucleated Red 0.0 0.0 Blood Cells # Prothrombin Time 17.8 H Prothrombin Time 1.4 Ratio INR International 1.46 Normalized Ratio Activated 36.6 H Partial Thrombopl ast Time Thrombin Time 17.2 Sodium Level 139 Potassium Level 3.8 Chloride Level 101 Carbon Dioxide 28 Level Anion Gap 10 Blood Urea 11 # Nitrogen Creatinine 2.51 H Est Glomerular 27 L Filtrat Rate mL/min Glucose Level 99 Calcium Level 8.1 L Phosphorus Level 2.3 #L Magnesium Level 1.9 Segmented 72 Neutrophils % (Manual) Band Neutrophils 6 H % (Manual) Lymphocytes % 12 L (Manual) Monocytes % 9 (Manual) Eosinophils % 1 (Manual) Neutrophils # 3.2 (Manual) Band Neutrophils 0.2 # Lymphocytes 0.5 L (Manual) Monocytes # 0.4 (Manual) Platelet Estimate NORMAL Polychromasia 2+ Anisocytosis 1+ Test 06/11/18 12:03 Bedside Glucose 119 CC: ; Exam/Review of Systems Vital Signs Vitals Vital Signs Date Temp Pulse Resp B/P (MAP) Pulse Ox O2 O2 Flow FiO2 Time Delivery Rate 06/11/18 97.9 60 18 101/58 97 Nasal 2.0 14:54 (72) Cannula Intake and Output 06/10/18 06/10/18 06/11/18 1515:00 23:00 07:00 IntakeIntake Total 240 ml 400 ml 670 ml OutputOutput Total 2500 ml 2 ml BalanceBalance -2260 ml 400 ml 668 ml Medications Medications Current Medications IV Flush (NS 3 ml) 3 ml PER PROTOCOL IV ; Start 06/08/18 at 16:30 Ondansetron HCl (Zofran Inj) 4 mg Q6H PRN IV NAUSEA AND/OR VOMITING Last administered on 06/10/18at 19:01; Admin Dose 4 MG; Start 06/08/18 at 16:30 Acetaminophen (Tylenol Tab) 650 mg Q6H PRN PO PAIN LEVEL 1-3 OR FEVER; Start 06/08/18 at 16:30 Acetaminophen/ Hydrocodone Bitart ([place] (5/325)) 1 tab Q6H PRN PO PAIN LEVEL 4-6; Start 06/08/18 at 16:30 Vancomycin HCl (Vanco Iv Per Pharmacy) VANCOMYCIN PER PHARMACY PER PROTOCOL XX ; Start 06/08/18 at 16:30 Piperacillin Sod/ Tazobactam Sod 100 ml @ 25 mls/hr Q12 IVPB Last administered on 06/11/18at 08:45; Admin Dose 25 MLS/HR; Start 06/08/18 at 22:00 Albuterol/ Ipratropium (Duoneb) 3 ml Q6HWA RESP THERAPY HHN Last administered on 06/11/18at 14:30; Admin Dose 3 ML; Start 06/08/18 at 20:00 Albuterol/ Ipratropium (Duoneb) 3 ml Q2H RESP THERAPY PRN HHN shortness of breath; Start 06/08/18 at 16:30 Budesonide (Pulmicort (Neb)) 0.5 mg BID RESP THERAPY HHN Last administered on 06/10/18at 20:45; Admin Dose 0.5 MG; Start 06/08/18 at 20:00 Docusate Sodium (Colace) 200 mg QHS PO ; Start 06/08/18 at 21:00 Levothyroxine Sodium (Synthroid) 75 mcg BEFORE BREAKFAST PO Last administered on 06/11/18at 06:49; Admin Dose 75 MCG; Start 06/09/18 at 07:00 Tamsulosin HCl (Flomax) 0.4 mg HS PO Last administered on 06/10/18at 21:08; Admin Dose 0.4 MG; Start 06/08/18 at 21:00 Hydralazine HCl (Apresoline) 10 mg Q4H PRN IV sbp >160 Last administered on at 19:59; Admin Dose 10 MG; Start 06/08/18 at 16:30 Diagnostic Test (Pha) (Accu-Chek) 1 ea 02 XX ; Start 06/09/18 at 02:00 Insulin Aspart (Novolog Insulin Pen) NOVOLOG *MILD* ALGORITHM WITH MEALS BEDTIME SC ; Start 06/08/18 at 18:00 Guaifenesin/ Codeine Phosphate (Robitussin Ac Liquid Cup) 5 ml Q4H PRN PO cough; Start 06/08/18 at 16:30 Miscellaneous Information 1 ea NOTE XX ; Start 06/08/18 at 18:00 Glucose (Glutose) 15 gm Q15M PRN PO DECREASED GLUCOSE; Start 06/08/18 at 18:00 Glucose (Glutose) 22.5 gm Q15M PRN PO DECREASED GLUCOSE; Start 06/08/18 at 18:00 Dextrose (D50w Syringe) 25 ml Q15M PRN IV DECREASED GLUCOSE; Start 06/08/18 at 18:00 Dextrose (D50w Syringe) 50 ml Q15M PRN IV DECREASED GLUCOSE; Start 06/08/18 at 18:00 Glucagon (Glucagen) 1 mg Q15M PRN IM DECREASED GLUCOSE; Start 06/08/18 at 18:00 Glucose (Glutose) 15 gm Q15M PRN BUCCAL DECREASED GLUCOSE; Start 06/08/18 at 18:00 Morphine Sulfate (morphine SULFATE (PF)) 2 mg Q4H PRN IV PAIN LEVEL 7-10 Last administered on 06/11/18at 14:17; Admin Dose 2 MG; Start 06/09/18 at 03:04 Epoetin Mauricio (Epogen (Esrd)) 10,000 units AFTER DIALYSIS SC ; Start 06/09/18 at 07:30 Azithromycin (Zithromax) 250 mg DAILY PO Last administered on 06/11/18at 08:44; Admin Dose 250 MG; Start 06/09/18 at 18:00 Ciprofloxacin HCl (Ciloxan 0.3% Oph) 1 drop Q2HWA BOTH EYES Last administered on 06/11/18at 12:05; Admin Dose 1 DROP; Start 06/10/18 at 11:00; Stop 06/12/18 at 10:59 Ciprofloxacin HCl (Ciloxan 0.3% Oph) 1 drop Q4H WHILE AWAKE BOTH EYES ; Start 06/12/18 at 13:00; Stop 06/17/18 at 12:59 Nifedipine (Procardia Xl) 30 mg BID PO ; Start 06/11/18 at 21:00 Pantoprazole (Protonix Tab) 40 mg BID@06,18 PO ; Start 06/11/18 at 18:00 Miscellaneous Information (*Rx Drug Level Order Reminder*) RANDOM VANCO LEVEL... ONCE ONCE XX ; Start 06/12/18 at 05:00; Stop 06/12/18 at 05:01 UZMA RUIZ NP Jun 11, 2018 16:24
[2018-06-11] MEDS: PANTOPRAZOLE (EC) 40 MG TAB PO SCH (17:12)
[2018-06-11 20:23] VITALS: BP 159/74; PULSE 70; RESP 16
[2018-06-11] MEDS: DOCUSATE SODIUM 100 MG CAP PO SCH (20:54)
[2018-06-11] MEDS: TAMSULOSIN (SR) 0.4 MG CAP PO SCH (20:54)
[2018-06-11] MEDS: NIFEdipine (XL) 30 MG TAB PO SCH (20:55)
[2018-06-12] VITALS (18 sets, daily range): BP systolic 105–165; BP diastolic 43–76; PULSE 70–82; RESP 16–18
[2018-06-12] MEDS: CIPROFLOXACIN 0.3% 2.5 ML OPH BOTH EYES SCH ×8 (00:53→20:24)
[2018-06-12] MEDS: ACCU-CHEK XX SCH (01:15)
[2018-06-12] MEDS: PANTOPRAZOLE (EC) 40 MG TAB PO SCH ×2 (04:30→17:15)
[2018-06-12] MEDS: morphine SULFATE/PF (2 MG/2 ML) SYG IV PRN ×2 (04:31→20:32)
[2018-06-12] MEDS: LEVOTHYROXINE 75 MCG TAB PO SCH (04:31)
[2018-06-12] MEDS: BUDESONIDE (NEB) 0.5MG/2ML AMP HHN SCH ×2 (07:54→19:48)
[2018-06-12] MEDS: ALBUTEROL/IPRATROPIUM (NEB) 3 ML AMP HHN SCH ×3 (07:54→19:48)
[2018-06-12] MEDS: INSULIN ASPART [NOVOLOG] 3 ML PEN SC SCH ×4 (08:00→21:00)
[2018-06-12] MEDS: PIPER-TAZO 3.375 GM IV (PMX) 100 ML IVPB SCH ×2 (08:05→20:34)
[2018-06-12] MEDS: NIFEdipine (XL) 30 MG TAB PO SCH ×2 (08:06→20:29)
[2018-06-12] MEDS: AZITHROMYCIN 250 MG TAB PO SCH (08:06)
--- NOTE | 2018-06-12 09:08 | PN ---
Date/Time of Note Date/Time of Note DATE: 06/12/18 TIME: 09:08 Assessment/Plan VTE Prophylaxis Risk score (from Nsg)>0 risk: 1 SCD applied (from Nsg): Yes Pharmacological prophylaxis: other Lines/Catheters IV Catheter Type (from Nrsg): Central Line Central line still needed: Yes Urinary Cath still in place: No Assessment/Plan Hospital Course renal follow up SUBJECTIVE: The patient is stable, no events overnight. The patient is status post blood transfusion. OBJECTIVE: HEENT: Head is normocephalic. NECK: Supple. HEART: Regular rate. LUNGS: Show diminished breath sounds at the base. ABDOMEN: Soft, nontender to palpation without rebound or guarding. EXTREMITIES: Negative for clubbing, cyanosis, no edema. DERMATOLOGIC: No rashes. MUSCULOSKELETAL: No joint effusions. NEUROLOGIC: No change in exam. MEDICATIONS: The patient's medications have been reviewed. LABORATORY DATA: Has been reviewed. ASSESSMENT AND PLAN: 1. End-stage renal disease. continue hd today 2. Anemia. Patient is status post blood transfusion, was seen by [facility], status post EGD, colonoscopy. Plan is to continue to monitor hemoglobin and hematocrit levels. Continue proton pump inhibitor. Continue Epogen. 3. Mineral bone disorder. Monitor calcium and phosphorus levels. 4. Sepsis, status post shock secondary to pneumonia. The patient will continue broad spectrum antibiotics. 5. Hypoxemic respiratory failure secondary to pneumonia. Continue medical management, nebulizers, supplemental oxygen. 6. Hypertension. Continue blood pressure regimen. Continue ultrafiltration dialysis. 7. Hypothyroidism. Continue Synthroid. 8. Diabetes. Continue current insulin regimen. 9. Benign prostatic hypertrophy. Continue Flomax. Result Diagram: 06/12/18 0427 06/12/18 0426 Results 24hrs Laboratory Tests Test 06/11/18 09:15 06/11/18 12:03 06/11/18 17:10 06/11/18 20:44 White Blood Count 4.5 L Red Blood Count 2.91 L Hemoglobin 9.0 L Hematocrit 27.1 L Mean Corpuscular 93.1 Volume Mean Corpuscular 30.9 Hemoglobin Mean Corpuscular 33.2 Hemoglobin Concent Red Cell 14.9 H Distribution Width Platelet Count 145 Mean Platelet Volume 9.1 Immature 0.400 Granulocytes % Neutrophils % 70.1 Segmented 72 Neutrophils % (Manual) Band Neutrophils % 6 H (Manual) Lymphocytes % 17.2 Lymphocytes % 12 L (Manual) Monocytes % 8.5 Monocytes % (Manual) 9 Eosinophils % 3.4 Eosinophils % 1 (Manual) Basophils % 0.4 Nucleated Red Blood 0.0 Cells % Immature 0.020 Granulocytes # Neutrophils # 3.1 Neutrophils # 3.2 (Manual) Band Neutrophils # 0.2 Lymphocytes (Manual) 0.5 L Lymphocytes # 0.8 Monocytes # 0.4 Monocytes # (Manual) 0.4 Eosinophils # 0.2 Basophils # 0.0 Nucleated Red Blood 0.0 Cells # Platelet Estimate NORMAL Polychromasia 2+ Anisocytosis 1+ Bedside Glucose 119 100 88 Test 06/12/18 04:26 06/12/18 04:27 06/12/18 08:03 White Blood Count 3.7 L Red Blood Count 2.88 L Hemoglobin 8.9 L Hematocrit 26.9 L Mean Corpuscular 93.4 Volume Mean Corpuscular 30.9 Hemoglobin Mean Corpuscular 33.1 Hemoglobin Concent Red Cell 14.9 H Distribution Width Platelet Count 161 161 Mean Platelet Volume 9.3 Immature 0.800 H Granulocytes % Neutrophils % 61.6 Lymphocytes % 20.3 Monocytes % 5.7 Eosinophils % 10.8 H Basophils % 0.8 Nucleated Red Blood 0.0 Cells % Immature 0.030 Granulocytes # Neutrophils # 2.3 Lymphocytes # 0.8 Monocytes # 0.2 L Eosinophils # 0.4 Basophils # 0.0 Nucleated Red Blood 0.0 Cells # Sodium Level 139 Potassium Level 4.0 Chloride Level 103 Carbon Dioxide Level 28 Anion Gap 8 Blood Urea Nitrogen 15 Creatinine 3.03 H Est Glomerular 22 L Filtrat Rate mL/min Glucose Level 74 Calcium Level 8.0 L Phosphorus Level 2.7 Magnesium Level 2.0 Random Vancomycin 17.9 Level Prothrombin Time 17.1 H Prothrombin Time 1.3 Ratio INR International 1.38 Normalized Ratio Activated 36.2 H Partial Thromboplast Time Thrombin Time 17.7 Bedside Glucose 73 Exam/Review of Systems Vital Signs Vitals Vital Signs Date Temp Pulse Resp B/P (MAP) Pulse Ox O2 O2 Flow FiO2 Time Delivery Rate 06/12/18 96 2.0 07:54 06/12/18 68 16 Nasal 28 07:54 Cannula 06/12/18 98.4 120/64 07:20 (82) Intake and Output 06/11/18 06/11/18 06/12/18 1515:00 23:00 07:00 IntakeIntake Total 680 ml 350 ml 250 ml BalanceBalance 680 ml 350 ml 250 ml Medications Medications Current Medications IV Flush (NS 3 ml) 3 ml PER PROTOCOL IV ; Start 06/08/18 at 16:30 Ondansetron HCl (Zofran Inj) 4 mg Q6H PRN IV NAUSEA AND/OR VOMITING Last administered on 06/10/18 19:01; Admin Dose 4 MG; Start 06/08/18 at 16:30 Acetaminophen (Tylenol Tab) 650 mg Q6H PRN PO PAIN LEVEL 1-3 OR FEVER; Start 06/08/18 at 16:30 Acetaminophen/ Hydrocodone Bitart ([place] (5/325)) 1 tab Q6H PRN PO PAIN LEVEL 4-6; Start 06/08/18 at 16:30 Vancomycin HCl (Vanco Iv Per Pharmacy) VANCOMYCIN PER PHARMACY PER PROTOCOL XX ; Start 06/08/18 at 16:30 Piperacillin Sod/ Tazobactam Sod 100 ml @ 25 mls/hr Q12 IVPB Last administered on 06/12/18at 08:05; Admin Dose 25 MLS/HR; Start 06/08/18 at 22:00 Albuterol/ Ipratropium (Duoneb) 3 ml Q6HWA RESP THERAPY HHN Last administered on 06/12/18 07:54; Admin Dose 3 ML; Start 06/08/18 at 20:00 Albuterol/ Ipratropium (Duoneb) 3 ml Q2H RESP THERAPY PRN HHN shortness of breath; Start 06/08/18 at 16:30 Budesonide (Pulmicort (Neb)) 0.5 mg BID RESP THERAPY HHN Last administered on 06/12/18 07:54; Admin Dose 0.5 MG; Start 06/08/18 at 20:00 Docusate Sodium (Colace) 200 mg QHS PO Last administered on 06/11/18at 20:54; Admin Dose 200 MG; Start 06/08/18 at 21:00 Levothyroxine Sodium (Synthroid) 75 mcg BEFORE BREAKFAST PO Last administered on 06/12/18 04:31; Admin Dose 75 MCG; Start 06/09/18 at 07:00 Tamsulosin HCl (Flomax) 0.4 mg HS PO Last administered on 06/11/18at 20:54; Admin Dose 0.4 MG; Start 06/08/18 at 21:00 Hydralazine HCl (Apresoline) 10 mg Q4H PRN IV sbp >160 Last administered on 06/10/18at 19:59; Admin Dose 10 MG; Start 06/08/18 at 16:30 Diagnostic Test (Pha) (Accu-Chek) 1 ea 02 XX ; Start 06/09/18 at 02:00 Insulin Aspart (Novolog Insulin Pen) NOVOLOG *MILD* ALGORITHM WITH MEALS BEDTIME SC ; Start 06/08/18 at 18:00 Guaifenesin/ Codeine Phosphate (Robitussin Ac Liquid Cup) 5 ml Q4H PRN PO cough; Start 06/08/18 at 16:30 Miscellaneous Information 1 ea NOTE XX ; Start 06/08/18 at 18:00 Glucose (Glutose) 15 gm Q15M PRN PO DECREASED GLUCOSE; Start 06/08/18 at 18:00 Glucose (Glutose) 22.5 gm Q15M PRN PO DECREASED GLUCOSE; Start 06/08/18 at 18:00 Dextrose (D50w Syringe) 25 ml Q15M PRN IV DECREASED GLUCOSE; Start 06/08/18 at 18:00 Dextrose (D50w Syringe) 50 ml Q15M PRN IV DECREASED GLUCOSE; Start 06/08/18 at 18:00 Glucagon (Glucagen) 1 mg Q15M PRN IM DECREASED GLUCOSE; Start 06/08/18 at 18:00 Glucose (Glutose) 15 gm Q15M PRN BUCCAL DECREASED GLUCOSE; Start 06/08/18 at 18:00 Morphine Sulfate (morphine SULFATE (PF)) 2 mg Q4H PRN IV PAIN LEVEL 7-10 Last a dministered on 06/12/18at 04:31; Admin Dose 2 MG; Start 06/09/18 at 03:04 Epoetin Mauricio (Epogen (Esrd)) 10,000 units AFTER DIALYSIS SC ; Start 06/09/18 at 07:30 Azithromycin (Zithromax) 250 mg DAILY PO Last administered on 06/12/18at 08:06; Admin Dose 250 MG; Start 06/09/18 at 18:00 Ciprofloxacin HCl (Ciloxan 0.3% Oph) 1 drop Q2HWA BOTH EYES Last administered on 06/12/18at 08:07; Admin Dose 1 DROP; Start 06/10/18 at 11:00; Stop 06/12/18 at 10:59 Ciprofloxacin HCl (Ciloxan 0.3% Oph) 1 drop Q4H WHILE AWAKE BOTH EYES ; Start 06/12/18 at 13:00; Stop 06/17/18 at 12:59 Nifedipine (Procardia Xl) 30 mg BID PO Last administered on 06/11/18at 20:55; Admin Dose 30 MG; Start 06/11/18 at 21:00 Pantoprazole (Protonix Tab) 40 mg BID@06,18 PO Last administered on 06/12/18at 04:30; Admin Dose 40 MG; Start 06/11/18 at 18:00 ALEJANDRO PEREZ DO Jun 12, 2018 09:08
--- NOTE | 2018-06-12 11:56 | PN ---
Date/Time of Note Date/Time of Note DATE: 06/12/18 TIME: 11:55 Objective Vitals Vital Signs Date Temp Pulse Resp B/P (MAP) Pulse Ox O2 O2 Flow FiO2 Time Delivery Rate 06/12/18 Nasal 3.0 08:00 Cannula 06/12/18 96 07:54 06/12/18 68 16 28 07:54 06/12/18 98.4 120/64 07:20 (82) Intake and Output 06/11/18 06/11/18 06/12/18 1515:00 23:00 07:00 IntakeIntake Total 680 ml 350 ml 250 ml BalanceBalance 680 ml 350 ml 250 ml Results Result Diagram: 06/12/18 0427 06/12/18 0426 Medications Medications Current Medications IV Flush (NS 3 ml) 3 ml PER PROTOCOL IV ; Start 06/08/18 at 16:30 Ondansetron HCl (Zofran Inj) 4 mg Q6H PRN IV NAUSEA AND/OR VOMITING Last administered on 06/10/18at 19:01; Admin Dose 4 MG; Start 06/08/18 at 16:30 Acetaminophen (Tylenol Tab) 650 mg Q6H PRN PO PAIN LEVEL 1-3 OR FEVER; Start 06/08/18 at 16:30 Acetaminophen/ Hydrocodone Bitart ([place] (5/325)) 1 tab Q6H PRN PO PAIN LEVEL 4-6; Start 06/08/18 at 16:30 Vancomycin HCl (Vanco Iv Per Pharmacy) VANCOMYCIN PER PHARMACY PER PROTOCOL XX ; Start 06/08/18 at 16:30 Piperacillin Sod/ Tazobactam Sod 100 ml @ 25 mls/hr Q12 IVPB Last administered on 06/12/18at 08:05; Admin Dose 25 MLS/HR; Start 06/08/18 at 22:00 Albuterol/ Ipratropium (Duoneb) 3 ml Q6HWA RESP THERAPY HHN Last administered on 06/12/18at 07:54; Admin Dose 3 ML; Start 06/08/18 at 20:00 Albuterol/ Ipratropium (Duoneb) 3 ml Q2H RESP THERAPY PRN HHN shortness of breath; Start 06/08/18 at 16:30 Budesonide (Pulmicort (Neb)) 0.5 mg BID RESP THERAPY HHN Last administered on 06/12/18at 07:54; Admin Dose 0.5 MG; Start 06/08/18 at 20:00 Docusate Sodium (Colace) 200 mg QHS PO Last administered on 06/11/18at 20:54; Admin Dose 200 MG; Start 06/08/18 at 21:00 Levothyroxine Sodium (Synthroid) 75 mcg BEFORE BREAKFAST PO Last administered on 06/12/18at 04:31; Admin Dose 75 MCG; Start 06/09/18 at 07:00 Tamsulosin HCl (Flomax) 0.4 mg HS PO Last administered on 06/11/18at 20:54; Admin Dose 0.4 MG; Start 06/08/18 at 21:00 Hydralazine HCl (Apresoline) 10 mg Q4H PRN IV sbp >160 Last administered on 06/10/18at 19:59; Admin Dose 10 MG; Start 06/08/18 at 16:30 Diagnostic Test (Pha) (Accu-Chek) 1 ea 02 XX ; Start 06/09/18 at 02:00 Insulin Aspart (Novolog Insulin Pen) NOVOLOG *MILD* ALGORITHM WITH MEALS BEDTIME SC ; Start 06/08/18 at 18:00 Guaifenesin/ Codeine Phosphate (Robitussin Ac Liquid Cup) 5 ml Q4H PRN PO cough; Start 06/08/18 at 16:30 Miscellaneous Information 1 ea NOTE XX ; Start 06/08/18 at 18:00 Glucose (Glutose) 15 gm Q15M PRN PO DECREASED GLUCOSE; Start 06/08/18 at 18:00 Glucose (Glutose) 22.5 gm Q15M PRN PO DECREASED GLUCOSE; Start 06/08/18 at 18:00 Dextrose (D50w Syringe) 25 ml Q15M PRN IV DECREASED GLUCOSE; Start 06/08/18 at 18:00 Dextrose (D50w Syringe) 50 ml Q15M PRN IV DECREASED GLUCOSE; Start 06/08/18 at 18:00 Glucagon (Glucagen) 1 mg Q15M PRN IM DECREASED GLUCOSE; Start 06/08/18 at 18:00 Glucose (Glutose) 15 gm Q15M PRN BUCCAL DECREASED GLUCOSE; Start 06/08/18 at 18:00 Morphine Sulfate (morphine SULFATE (PF)) 2 mg Q4H PRN IV PAIN LEVEL 7-10 Last administered on 06/12/18at 04:31; Admin Dose 2 MG; Start 06/09/18 at 03:04 Epoetin Mauricio (Epogen (Esrd)) 10,000 units AFTER DIALYSIS SC ; Start 06/09/18 at 07:30 Azithromycin (Zithromax) 250 mg DAILY PO Last administered on 06/12/18at 08:06; Admin Dose 250 MG; Start 06/09/18 at 18:00 Ciprofloxacin HCl (Ciloxan 0.3% Oph) 1 drop Q4H WHILE AWAKE BOTH EYES ; Start 06/12/18 at 13:00; Stop 06/17/18 at 12:59 Nifedipine (Procardia Xl) 30 mg BID PO Last administered on 06/11/18at 20:55; Admin Dose 30 MG; Start 06/11/18 at 21:00 Pantoprazole (Protonix Tab) 40 mg BID@06,18 PO Last administered on 06/12/18at 04:30; Admin Dose 40 MG; Start 06/11/18 at 18:00 Vancomycin HCl 250 ml @ 125 mls/hr Q96H IVPB ; Start 06/13/18 at 08:00 VTE Prophylaxis Risk score (from Ns)>0 risk: 1 SCD applied (from [facility] [place]): Yes Lines/Catheters IV Catheter Type: Cox in Place: No Assessment/Plan Hospital Course subjective Patient still feeling weak, but improved Objective Physical exam General: Patient is laying in bed and answers questions appropriately Mentation: Patient is alert and oriented 4, Head: Normocephalic atraumatic Eyes: EOMI, pupils reactive to light Neck: Supple, nontender, midline Respiratory: Coarse to auscultation bilaterally Cardiovascular: regular rate, no obvious murmurs Gastrointestinal: non-tender to palpation, bowel sounds heard. Neurological: Moves all extremities spontaneously Skin: No new skin lesions Assessment and plan Acute hypoxic respiratory distress -Secondary to multilobular pneumonia -Improved significantly Multilobular pneumonia -IV antibiotic, transition to po soon -ID on board -DuoNeb nebulizer, budesonide nebulizer -blood cultures noted Chest pain -Likely secondary to above pneumonia and cough -Trended troponins, negative x3 Hypotension/septic shock 2/2 PNA-resolved -Off of pressors -Monitor closely Anemia with bright red blood per rectum with elevated INR -No reported GI bleed on admission however patient did have multiple bloody bowel movements during admission, now stable -GI on board -renal diet -Patient's INR elevated with unknown cause, ultrasound and CT did not show any particular issues with the liver, hepatitis panel neg -Ordered FFP and vitamin K, keep an eye on INR, returning to normal but still unknown cause. -Monitor hemoglobin levels -Transfuse as needed -egd/colonoscopy not showing clear reason for GI bleed, found only gastritis on EGD, nothing else compelling on colonoscopy End-stage renal disease on hemodialysis -Nephrology consulted -Dialysis as needed Hypertension -reintroducing home medications, although the dose may be too high, adjusting as needed Hypothyroidism -Continue home meds Diabetes mellitus -Insulin sliding scale, -A1c is 4.9, questionable if patient has diabetes BPH -Continue Flomax Disposition -Physical therapy ordered for patient, infectious disease input appreciated, hopefully able to transition to p.o. antibiotics soon and discharge in a few days. ZAHEER MONTES DE OCA Jun 12, 2018 11:56
--- NOTE | 2018-06-12 12:27 | PN ---
Date/Time of Note Date/Time of Note DATE: 06/12/18 TIME: 12:18 Assessment/Plan VTE Prophylaxis Risk score (from Nsg)>0 risk: 1 SCD applied (from Nsg): Yes SCD contraindicated: other (scds) Pharmacological prophylaxis: other (scds) Lines/Catheters IV Catheter Type (from [facility]): Urinary Cath still in place: No Assessment/Plan Hospital Course Assessment: Hematochezia Severe normocytic anemia S/p EGD/Colonoscopy 06/10/18 -Gastritis -Normal colonoscopy PNA- being followed by ID ESRD with HD Pt in isolation- r/o MRSA HTN DM BPH Plan: Stool for H. pylori Advance diet to diabetic Continue Protonix Monitor h/h transfuse as needed Patient seen in collaboration with Dr. Alvarado/Stefano Subjective: No over night events, GI stable, Monitor for overt signs of GI bleed. Pt currently receiving HD, states he feels a little better, continue close observation PHYSICAL EXAMINATION: GENERAL: Alert & oriented x 3, in no acute distress CHEST: Inspection within normal limits. CARDIOVASCULAR: Heart: Regular rate and rhythm, RESPIRATORY: Lungs clear to auscultation GASTROINTESTINAL AND LIVER: Abdomen: Soft, non tenderness, no organomegaly, no ascites, no guarding, no rebound tenderness, normoactive bowel sounds. Rectal: Deferred. GENITOURINARY: Male genitalia within normal limits. Cox catheter in place EXTREMITIES: No cyanosis, clubbing or edema. Result Diagram: 06/12/187 06/12/186 Results 24hrs Laboratory Tests Test 06/11/18 17:10 06/11/18 20:44 06/12/18 04:26 06/12/18 04:27 Bedside Glucose 100 88 White Blood Count 3.7 L Red Blood Count 2.88 L Hemoglobin 8.9 L Hematocrit 26.9 L Mean Corpuscular 93.4 Volume Mean Corpuscular 30.9 Hemoglobin Mean Corpuscular 33.1 Hemoglobin Concent Red Cell 14.9 H Distribution Width Platelet Count 161 161 Mean Platelet Volume 9.3 Immature 0.800 H Granulocytes % Neutrophils % 61.6 Lymphocytes % 20.3 Monocytes % 5.7 Eosinophils % 10.8 H Basophils % 0.8 Nucleated Red Blood 0.0 Cells % Immature 0.030 Granulocytes # Neutrophils # 2.3 Lymphocytes # 0.8 Monocytes # 0.2 L Eosinophils # 0.4 Basophils # 0.0 Nucleated Red Blood 0.0 Cells # Sodium Level 139 Potassium Level 4.0 Chloride Level 103 Carbon Dioxide Level 28 Anion Gap 8 Blood Urea Nitrogen 15 Creatinine 3.03 H Est Glomerular 22 L Filtrat Rate mL/min Glucose Level 74 Calcium Level 8.0 L Phosphorus Level 2.7 Magnesium Level 2.0 Random Vancomycin 17.9 Level Prothrombin Time 17.1 H Prothrombin Time 1.3 Ratio INR International 1.38 Normalized Ratio Activated 36.2 H Partial Thromboplast Time Thrombin Time 17.7 Test 06/12/18 08:03 Bedside Glucose 73 Exam/Review of Systems Vital Signs Vitals Vital Signs Date Temp Pulse Resp B/P (MAP) Pulse Ox O2 O2 Flow FiO2 Time Delivery Rate 06/12/18 Nasal 3.0 08:00 Cannula 06/12/18 96 07:54 06/12/18 68 16 28 07:54 06/12/18 98.4 120/64 07:20 (82) Intake and Output 06/11/18 06/11/18 06/12/18 1515:00 23:00 07:00 IntakeIntake Total 680 ml 350 ml 250 ml BalanceBalance 680 ml 350 ml 250 ml Medications Medications Current Medications IV Flush (NS 3 ml) 3 ml PER PROTOCOL IV ; Start 06/08/18 at 16:30 Ondansetron HCl (Zofran Inj) 4 mg Q6H PRN IV NAUSEA AND/OR VOMITING Last administered on 06/10/18at 19:01; Admin Dose 4 MG; Start 06/08/18 at 16:30 Acetaminophen (Tylenol Tab) 650 mg Q6H PRN PO PAIN LEVEL 1-3 OR FEVER; Start 06/08/18 at 16:30 Acetaminophen/ Hydrocodone Bitart ([place] (5/325)) 1 tab Q6H PRN PO PAIN LEVEL 4-6; Start 06/08/18 at 16:30 Vancomycin HCl (Vanco Iv Per Pharmacy) VANCOMYCIN PER PHARMACY PER PROTOCOL XX ; Start 06/08/18 at 16:30 Piperacillin Sod/ Tazobactam Sod 100 ml @ 25 mls/hr Q12 IVPB Last administered on 06/12/18at 08:05; Admin Dose 25 MLS/HR; Start 06/08/18 at 22:00 Albuterol/ Ipratropium (Duoneb) 3 ml Q6HWA RESP THERAPY HHN Last administered on 06/12/18 07:54; Admin Dose 3 ML; Start 06/08/18 at 20:00 Albuterol/ Ipratropium (Duoneb) 3 ml Q2H RESP THERAPY PRN HHN shortness of breath; Start 06/08/18 at 16:30 Budesonide (Pulmicort (Neb)) 0.5 mg BID RESP THERAPY HHN Last administered on 06/12/18 07:54; Admin Dose 0.5 MG; Start 06/08/18 at 20:00 Docusate Sodium (Colace) 200 mg QHS PO Last administered on 06/11/18 20:54; Admin Dose 200 MG; Start 06/08/18 at 21:00 Levothyroxine Sodium (Synthroid) 75 mcg BEFORE BREAKFAST PO Last administered on 06/12/18 04:31; Admin Dose 75 MCG; Start 06/09/18 at 07:00 Tamsulosin HCl (Flomax) 0.4 mg HS PO Last administered on 06/11/18 20:54; Admin Dose 0.4 MG; Start 06/08/18 at 21:00 Hydralazine HCl (Apresoline) 10 mg Q4H PRN IV sbp >160 Last administered on 06/10/18 19:59; Admin Dose 10 MG; Start 06/08/18 at 16:30 Diagnostic Test (Pha) (Accu-Chek) 1 ea 02 XX ; Start 06/09/18 at 02:00 Insulin Aspart (Novolog Insulin Pen) NOVOLOG *MILD* ALGORITHM WITH MEALS BEDTIME SC ; Start 06/08/18 at 18:00 Guaifenesin/ Codeine Phosphate (Robitussin Ac Liquid Cup) 5 ml Q4H PRN PO cough; Start 06/08/18 at 16:30 Miscellaneous Information 1 ea NOTE XX ; Start 06/08/18 at 18:00 Glucose (Glutose) 15 gm Q15M PRN PO DECREASED GLUCOSE; Start 06/08/18 at 18:00 Glucose (Glutose) 22.5 gm Q15M PRN PO DECREASED GLUCOSE; Start 06/08/18 at 18:00 Dextrose (D50w Syringe) 25 ml Q15M PRN IV DECREASED GLUCOSE; Start 06/08/18 at 18:00 Dextrose (D50w Syringe) 50 ml Q15M PRN IV DECREASED GLUCOSE; Start 06/08/18 at 18:00 Glucagon (Glucagen) 1 mg Q15M PRN IM DECREASED GLUCOSE; Start 06/08/18 at 18:00 Glucose (Glutose) 15 gm Q15M PRN BUCCAL DECREASED GLUCOSE; Start 06/08/18 at 18:00 Morphine Sulfate (morphine SULFATE (PF)) 2 mg Q4H PRN IV PAIN LEVEL 7-10 Last administered on 06/12/18at 04:31; Admin Dose 2 MG; Start 06/09/18 at 03:04 Epoetin Mauricio (Epogen (Esrd)) 10,000 units AFTER DIALYSIS SC ; Start 06/09/18 at 07:30 Azithromycin (Zithromax) 250 mg DAILY PO Last administered on 06/12/18at 08:06; Admin Dose 250 MG; Start 06/09/18 at 18:00 Ciprofloxacin HCl (Ciloxan 0.3% Oph) 1 drop Q4H WHILE AWAKE BOTH EYES ; Start 06/12/18 at 13:00; Stop 06/17/18 at 12:59 Nifedipine (Procardia Xl) 30 mg BID PO Last administered on 06/11/18at 20:55; Admin Dose 30 MG; Start 06/11/18 at 21:00 Pantoprazole (Protonix Tab) 40 mg BID@06,18 PO Last administered on 06/12/18at 04:30; Admin Dose 40 MG; Start 06/11/18 at 18:00 Vancomycin HCl 250 ml @ 125 mls/hr Q96H IVPB ; Start 06/13/18 at 08:00 DARCI OSHEA Jun 12, 2018 12:27
--- NOTE | 2018-06-12 12:36 | CONS ---
Date/Time of Note Date/Time of Note DATE: 06/12/18 TIME: 12:32 Assessment/Plan Assessment/Plan Result Diagram: 06/12/18 0427 06/12/18 0426 Results 24hrs Laboratory Tests Test 06/11/18 17:10 06/11/18 20:44 06/12/18 04:26 06/12/18 04:27 Bedside Glucose 100 88 White Blood Count 3.7 L Red Blood Count 2.88 L Hemoglobin 8.9 L Hematocrit 26.9 L Mean Corpuscular 93.4 Volume Mean Corpuscular 30.9 Hemoglobin Mean Corpuscular 33.1 Hemoglobin Concent Red Cell 14.9 H Distribution Width Platelet Count 161 161 Mean Platelet Volume 9.3 Immature 0.800 H Granulocytes % Neutrophils % 61.6 Lymphocytes % 20.3 Monocytes % 5.7 Eosinophils % 10.8 H Basophils % 0.8 Nucleated Red Blood 0.0 Cells % Immature 0.030 Granulocytes # Neutrophils # 2.3 Lymphocytes # 0.8 Monocytes # 0.2 L Eosinophils # 0.4 Basophils # 0.0 Nucleated Red Blood 0.0 Cells # Sodium Level 139 Potassium Level 4.0 Chloride Level 103 Carbon Dioxide Level 28 Anion Gap 8 Blood Urea Nitrogen 15 Creatinine 3.03 H Est Glomerular 22 L Filtrat Rate mL/min Glucose Level 74 Calcium Level 8.0 L Phosphorus Level 2.7 Magnesium Level 2.0 Random Vancomycin 17.9 Level Prothrombin Time 17.1 H Prothrombin Time 1.3 Ratio INR International 1.38 Normalized Ratio Activated 36.2 H Partial Thromboplast Time Thrombin Time 17.7 Test 06/12/18 08:03 06/12/18 12:17 Bedside Glucose 73 66 L Consultation Date/Type/Reason Admit Date/Time Jun 08, 2018 at 16:30 Initial Consult Date SUBJECTIVE: Pt is awake, alert, afebrile VS: stable. T: 98.4 LABS: Reviewed. WBC-3.7 Indwelling: Left arm AV fistula, femoral triple-lumen catheter Microbiology: Blood cultures negative Chest x-ray on admission revealed a right upper lobe and left lower lobe infiltrates CXR 06/11/18: IMPRESSION: Increased multifocal air space infiltrates concerning for pneumonia. Small layering pleural effusions bilaterally are increasing. Antimicrobials: Zosyn, vancomycin, Zithromax Physical examination: GEN: This is a chronically ill-appearing middle-aged man who is awake in no distress. HENT: Head atraumatic normocephalic. Neck is supple. PULM: Chest rise symmetrical, breath sounds with scattered crackles Heart S1-S2. Abdomen soft bowel sounds present. Extremities without cyanosis. Assessment: 1. Severe sepsis status post shock 2. Pneumonia 3. End-stage renal disease, hemodialysis dependent 4. Diabetes 5. Hypertension Plan: Pt is stable. Continue current antibiotics. CXR from yesterday noted. Pulm recommendations. HD at bedside. Exam/Review of Systems Vital Signs Vitals Vital Signs Date Temp Pulse Resp B/P (MAP) Pulse Ox O2 O2 Flow FiO2 Time Delivery Rate 06/12/18 Nasal 3.0 08:00 Cannula 06/12/18 96 07:54 06/12/18 68 16 28 07:54 06/12/18 98.4 120/64 07:20 (82) Intake and Output 06/11/18 06/11/18 06/12/18 1515:00 23:00 07:00 IntakeIntake Total 680 ml 350 ml 250 ml BalanceBalance 680 ml 350 ml 250 ml Medications Medications Current Medications IV Flush (NS 3 ml) 3 ml PER PROTOCOL IV ; Start 06/08/18 at 16:30 Ondansetron HCl (Zofran Inj) 4 mg Q6H PRN IV NAUSEA AND/OR VOMITING Last administered on 06/10/18at 19:01; Admin Dose 4 MG; Start 06/08/18 at 16:30 Acetaminophen (Tylenol Tab) 650 mg Q6H PRN PO PAIN LEVEL 1-3 OR FEVER; Start 06/08/18 at 16:30 Acetaminophen/ Hydrocodone Bitart ([place] (5/325)) 1 tab Q6H PRN PO PAIN LEVEL 4-6; Start 06/08/18 at 16:30 Vancomycin HCl (Vanco Iv Per Pharmacy) VANCOMYCIN PER PHARMACY PER PROTOCOL XX ; Start 06/08/18 at 16:30 Piperacillin Sod/ Tazobactam Sod 100 ml @ 25 mls/hr Q12 IVPB Last administered on 06/12/18at 08:05; Admin Dose 25 MLS/HR; Start 06/08/18 at 22:00 Albuterol/ Ipratropium (Duoneb) 3 ml Q6HWA RESP THERAPY HHN Last administered on 06/12/18at 07:54; Admin Dose 3 ML; Start 06/08/18 at 20:00 Albuterol/ Ipratropium (Duoneb) 3 ml Q2H RESP THERAPY PRN HHN shortness of breath; Start 06/08/18 at 16:30 Budesonide (Pulmicort (Neb)) 0.5 mg BID RESP THERAPY HHN Last administered on 06/12/18at 07:54; Admin Dose 0.5 MG; Start 06/08/18 at 20:00 Docusate Sodium (Colace) 200 mg QHS PO Last administered on 06/11/18at 20:54; Admin Dose 200 MG; Start 06/08/18 at 21:00 Levothyroxine Sodium (Synthroid) 75 mcg BEFORE BREAKFAST PO Last administered on 06/12/18at 04:31; Admin Dose 75 MCG; Start 06/09/18 at 07:00 Tamsulosin HCl (Flomax) 0.4 mg HS PO Last administered on 06/11/18at 20:54; Admin Dose 0.4 MG; Start 06/08/18 at 21:00 Hydralazine HCl (Apresoline) 10 mg Q4H PRN IV sbp >160 Last administered on at 19:59; Admin Dose 10 MG; Start 06/08/18 at 16:30 Diagnostic Test (Pha) (Accu-Chek) 1 ea 02 XX ; Start 06/09/18 at 02:00 Insulin Aspart (Novolog Insulin Pen) NOVOLOG *MILD* ALGORITHM WITH MEALS BEDTIME SC ; Start 06/08/18 at 18:00 Guaifenesin/ Codeine Phosphate (Robitussin Ac Liquid Cup) 5 ml Q4H PRN PO cough; Start 06/08/18 at 16:30 Miscellaneous Information 1 ea NOTE XX ; Start 06/08/18 at 18:00 Glucose (Glutose) 15 gm Q15M PRN PO DECREASED GLUCOSE; Start 06/08/18 at 18:00 Glucose (Glutose) 22.5 gm Q15M PRN PO DECREASED GLUCOSE; Start 06/08/18 at 18:00 Dextrose (D50w Syringe) 25 ml Q15M PRN IV DECREASED GLUCOSE; Start 06/08/18 at 18:00 Dextrose (D50w Syringe) 50 ml Q15M PRN IV DECREASED GLUCOSE; Start 06/08/18 at 18:00 Glucagon (Glucagen) 1 mg Q15M PRN IM DECREASED GLUCOSE; Start 06/08/18 at 18:00 Glucose (Glutose) 15 gm Q15M PRN BUCCAL DECREASED GLUCOSE; Start 06/08/18 at 18:00 Morphine Sulfate (morphine SULFATE (PF)) 2 mg Q4H PRN IV PAIN LEVEL 7-10 Last administered on 06/12/18at 04:31; Admin Dose 2 MG; Start 06/09/18 at 03:04 Epoetin Mauricio (Epogen (Esrd)) 10,000 units AFTER DIALYSIS SC ; Start 06/09/18 at 07:30 Azithromycin (Zithromax) 250 mg DAILY PO Last administered on 06/12/18at 08:06; Admin Dose 250 MG; Start 06/09/18 at 18:00 Ciprofloxacin HCl (Ciloxan 0.3% Oph) 1 drop Q4H WHILE AWAKE BOTH EYES ; Start 06/12/18 at 13:00; Stop 06/17/18 at 12:59 Nifedipine (Procardia Xl) 30 mg BID PO Last administered on 06/11/18at 20:55; Admin Dose 30 MG; Start 06/11/18 at 21:00 Pantoprazole (Protonix Tab) 40 mg BID@06,18 PO Last administered on 06/12/18at 04:30; Admin Dose 40 MG; Start 06/11/18 at 18:00 Vancomycin HCl 250 ml @ 125 mls/hr Q96H IVPB ; Start 06/13/18 at 08:00 RAISSA COLLINS Jun 12, 2018 12:36
[2018-06-12] MEDS ORDERED: EPOETIN 10000 UNITS/1 ML INJ (ESRD) SC SCH (19:00)
[2018-06-12] MEDS: TAMSULOSIN (SR) 0.4 MG CAP PO SCH (20:25)
[2018-06-12] MEDS: DOCUSATE SODIUM 100 MG CAP PO SCH (20:25)
[2018-06-12] MEDS: ONDANSETRON 4 MG INJ IV PRN (20:32)
[2018-06-13] MEDS: morphine SULFATE/PF (2 MG/2 ML) SYG IV PRN ×2 (00:25→04:24)
[2018-06-13] MEDS: CIPROFLOXACIN 0.3% 2.5 ML OPH BOTH EYES SCH ×6 (00:25→20:47)
[2018-06-13 02:00] VITALS: BP 180/94; PULSE 82
[2018-06-13] MEDS: ACCU-CHEK XX SCH (02:00)
[2018-06-13] MEDS: hydrALAzine 20 MG INJ IV PRN (02:25)
[2018-06-13 03:23] VITALS: BP 165/85; PULSE 75
[2018-06-13] MEDS: ONDANSETRON 4 MG INJ IV PRN ×2 (04:24→20:49)
[2018-06-13] MEDS: PANTOPRAZOLE (EC) 40 MG TAB PO SCH ×2 (05:25→17:11)
[2018-06-13] MEDS: LEVOTHYROXINE 75 MCG TAB PO SCH (06:08)
[2018-06-13] MEDS: ALBUTEROL/IPRATROPIUM (NEB) 3 ML AMP HHN SCH ×3 (07:38→19:37)
[2018-06-13] MEDS: BUDESONIDE (NEB) 0.5MG/2ML AMP HHN SCH ×2 (07:39→19:37)
[2018-06-13] MEDS: GUAIFENESIN/CODEINE 5ML CUP PO PRN ×4 (07:53→22:27)
[2018-06-13] MEDS: INSULIN ASPART [NOVOLOG] 3 ML PEN SC SCH ×4 (08:00→21:00)
[2018-06-13] MEDS ORDERED: VANCOMYCIN 1 GM 250 ML IVPB SCH (08:00)
[2018-06-13 08:07] VITALS: BP 158/75; PULSE 75; RESP 16
[2018-06-13] MEDS: AZITHROMYCIN 250 MG TAB PO SCH (08:15)
[2018-06-13] MEDS: PIPER-TAZO 3.375 GM IV (PMX) 100 ML IVPB SCH ×2 (08:15→20:47)
[2018-06-13] MEDS: morphine 4 MG/ML VIAL IV PRN ×2 (08:15→12:17)
[2018-06-13] MEDS: NIFEdipine (XL) 30 MG TAB PO SCH ×2 (08:16→20:50)
--- NOTE | 2018-06-13 09:50 | PN ---
Date/Time of Note Date/Time of Note DATE: 06/13/18 TIME: 09:49 Assessment/Plan VTE Prophylaxis Risk score (from Nsg)>0 risk: 2 SCD applied (from Nsg): Yes Pharmacological prophylaxis: other Lines/Catheters IV Catheter Type (from Nrsg): Central Line Central line still needed: Yes Urinary Cath still in place: No Assessment/Plan Hospital Course renal follow up SUBJECTIVE: The patient is stable, no events overnight. The patient is status post blood transfusion. OBJECTIVE: HEENT: Head is normocephalic. NECK: Supple. HEART: Regular rate. LUNGS: Show diminished breath sounds at the base. ABDOMEN: Soft, nontender to palpation without rebound or guarding. EXTREMITIES: Negative for clubbing, cyanosis, no edema. DERMATOLOGIC: No rashes. MUSCULOSKELETAL: No joint effusions. NEUROLOGIC: No change in exam. MEDICATIONS: The patient's medications have been reviewed. LABORATORY DATA: Has been reviewed. ASSESSMENT AND PLAN: 1. End-stage renal disease. continue hd on Thursday (his regular schedule) 2. Anemia. Patient is status post blood transfusion, was seen by gastroenterology, status post EGD, colonoscopy. Plan is to continue to monitor hemoglobin and hematocrit levels. Continue proton pump inhibitor. Continue Epogen. 3. Mineral bone disorder. Monitor calcium and phosphorus levels. 4. Sepsis, status post shock secondary to pneumonia. The patient will continue broad spectrum antibiotics. 5. Hypoxemic respiratory failure secondary to pneumonia. Continue medical management, nebulizers, supplemental oxygen. 6. Hypertension. Continue blood pressure regimen. Continue ultrafiltration dialysis. 7. Hypothyroidism. Continue Synthroid. 8. Diabetes. Continue current insulin regimen. 9. Benign prostatic hypertrophy. Continue Flomax. Result Diagram: 06/13/1843006/13/181 Results 24hrs Laboratory Tests Test 06/12/18 12:17 06/12/18 12:36 06/12/18 12:57 06/12/18 17:12 Bedside Glucose 66 L 73 85 90 Test 06/12/18 20:46 06/13/18 04:31 06/13/18 07:49 Bedside Glucose 85 88 White Blood Count 4.2 L Red Blood Count 2.98 L Hemoglobin 9.2 L Hematocrit 27.9 L Mean Corpuscular 93.6 Volume Mean Corpuscular 30.9 Hemoglobin Mean Corpuscular 33.0 Hemoglobin Concent Red Cell 14.7 H Distribution Width Platelet Count 165 Mean Platelet Volume 9.5 Immature 0.500 H Granulocytes % Neutrophils % 65.6 Lymphocytes % 19.3 Monocytes % 5.5 Eosinophils % 8.4 H Basophils % 0.7 Nucleated Red Blood 0.0 Cells % Immature 0.020 Granulocytes # Neutrophils # 2.7 Lymphocytes # 0.8 Monocytes # 0.2 L Eosinophils # 0.4 Basophils # 0.0 Nucleated Red Blood 0.0 Cells # Prothrombin Time 16.8 H Prothrombin Time 1.3 Ratio INR International 1.35 Normalized Ratio Activated 38.0 H Partial Thromboplast Time Thrombin Time 17.9 Sodium Level 137 Potassium Level 4.8 Chloride Level 101 Carbon Dioxide Level 29 Anion Gap 7 Blood Urea Nitrogen 8 Creatinine 2.31 H Est Glomerular 29 L Filtrat Rate mL/min Glucose Level 74 Calcium Level 8.0 L Phosphorus Level 2.0 L Magnesium Level 1.9 Exam/Review of Systems Vital Signs Vitals Vital Signs Date Temp Pulse Resp B/P (MAP) Pulse Ox O2 O2 Flow FiO2 Time Delivery Rate 06/13/18 97.4 75 16 158/75 97 08:07 (102) 06/13/18 2.0 07:39 06/13/18 Nasal 07:39 Cannula 06/12/18 28 07:54 Intake and Output 06/12/18 06/12/18 06/13/18 1515:00 23:00 07:00 IntakeIntake Total 300 ml 100 ml 200 ml OutputOutput Total 0 ml 2400 ml BalanceBalance 300 ml -2300 ml 200 ml Medications Medications Current Medications IV Flush (NS 3 ml) 3 ml PER PROTOCOL IV ; Start 06/08/18 at 16:30 Ondansetron HCl (Zofran Inj) 4 mg Q6H PRN IV NAUSEA AND/OR VOMITING Last administered on 06/13/18at 04:24; Admin Dose 4 MG; Start 06/08/18 at 16:30 Acetaminophen (Tylenol Tab) 650 mg Q6H PRN PO PAIN LEVEL 1-3 OR FEVER; Start 06/08/18 at 16:30 Acetaminophen/ Hydrocodone Bitart ([place] (5/325)) 1 tab Q6H PRN PO PAIN LEVEL 4-6; Start 06/08/18 at 16:30 Vancomycin HCl (Vanco Iv Per Pharmacy) VANCOMYCIN PER PHARMACY PER PROTOCOL XX ; Start 06/08/18 at 16:30 Piperacillin Sod/ Tazobactam Sod 100 ml @ 25 mls/hr Q12 IVPB Last administered on 06/12/18 20:34; Admin Dose 25 MLS/HR; Start 06/08/18 at 22:00 Albuterol/ Ipratropium (Duoneb) 3 ml Q6HWA RESP THERAPY HHN Last administered on 06/13/18at 07:38; Admin Dose 3 ML; Start 06/08/18 at 20:00 Albuterol/ Ipratropium (Duoneb) 3 ml Q2H RESP THERAPY PRN HHN shortness of breath; Start 06/08/18 at 16:30 Budesonide (Pulmicort (Neb)) 0.5 mg BID RESP THERAPY HHN Last administered on 06/13/18 07:39; Admin Dose 0.5 MG; Start 06/08/18 at 20:00 Docusate Sodium (Colace) 200 mg QHS PO Last administered on 06/12/18 20:25; Admin Dose 200 MG; Start 06/08/18 at 21:00 Levothyroxine Sodium (Synthroid) 75 mcg BEFORE BREAKFAST PO Last administered on 06/13/18 06:08; Admin Dose 75 MCG; Start 06/09/18 at 07:00 Tamsulosin HCl (Flomax) 0.4 mg HS PO Last administered on 06/12/18 20:25; Admin Dose 0.4 MG; Start 06/08/18 at 21:00 Hydralazine HCl (Apresoline) 10 mg Q4H PRN IV sbp >160 Last administered on 06/13/18at 02:25; Admin Dose 10 MG; Start 06/08/18 at 16:30 Diagnostic Test (Pha) (Accu-Chek) 1 ea 02 XX ; Start 06/09/18 at 02:00 Insulin Aspart (Novolog Insulin Pen) NOVOLOG *MILD* ALGORITHM WITH MEALS BEDTIME SC ; Start 06/08/18 at 18:00 Guaifenesin/ Codeine Phosphate (Robitussin Ac Liquid Cup) 5 ml Q4H PRN PO cough Last administered on 06/13/18 07:53; Admin Dose 5 ML; Start 06/08/18 at 16:30 Miscellaneous Information 1 ea NOTE XX ; Start 06/08/18 at 18:00 Glucose (Glutose) 15 gm Q15M PRN PO DECREASED GLUCOSE; Start 06/08/18 at 18:00 Glucose (Glutose) 22.5 gm Q15M PRN PO DECREASED GLUCOSE; Start 06/08/18 at 18:00 Dextrose (D50w Syringe) 25 ml Q15M PRN IV DECREASED GLUCOSE; Start 06/08/18 at 18:00 Dextrose (D50w Syringe) 50 ml Q15M PRN IV DECREASED GLUCOSE; Start 06/08/18 at 18:00 Glucagon (Glucagen) 1 mg Q15M PRN IM DECREASED GLUCOSE; Start 06/08/18 at 18:00 Glucose (Glutose) 15 gm Q15M PRN BUCCAL DECREASED GLUCOSE; Start 06/08/18 at 1 8:00 Epoetin Mauricio (Epogen (Esrd)) 10,000 units AFTER DIALYSIS SC ; Start 06/09/18 at 07:30 Azithromycin (Zithromax) 250 mg DAILY PO Last administered on 06/13/18 08:15; Admin Dose 250 MG; Start 06/09/18 at 18:00 Ciprofloxacin HCl (Ciloxan 0.3% Oph) 1 drop Q4H WHILE AWAKE BOTH EYES Last administered on 06/13/18 04:33; Admin Dose 1 DROP; Start 06/12/18 at 13:00; Stop 06/17/18 at 12:59 Nifedipine (Procardia Xl) 30 mg BID PO Last administered on 06/13/18 08:16; Admin Dose 30 MG; Start 06/11/18 at 21:00 Pantoprazole (Protonix Tab) 40 mg BID@06,18 PO Last administered on 06/13/18at 05:25; Admin Dose 40 MG; Start 06/11/18 at 18:00 Vancomycin HCl 250 ml @ 125 mls/hr Q96H IVPB Last administered on 06/13/18 07:53; Admin Dose 125 MLS/HR; Start 06/13/18 at 08:00 Morphine Sulfate (morphine) 2 mg Q4H PRN IV PAIN LEVEL 7-10 Last administered on 06/13/18 08:15; Admin Dose 2 MG; Start 06/13/18 at 08:00 ALEJANDRO PEREZ DO Jun 13, 2018 09:50
[2018-06-13 14:30] VITALS: BP 123/64; PULSE 61; RESP 16
--- NOTE | 2018-06-13 15:26 | PN ---
Date/Time of Note Date/Time of Note DATE: 06/13/18 TIME: 15:23 Assessment/Plan VTE Prophylaxis Risk score (from Ns)>0 risk: 6 SCD applied (from Ns): Yes Pharmacological prophylaxis: other (scds) Lines/Catheters IV [facility] Type [facility]from [facility] [place] Urinary Cath still in place: No Assessment/Plan Hospital Course Assessment: Hematochezia Severe normocytic anemia S/p EGD/Colonoscopy 06/10/18 -Gastritis -Normal colonoscopy PNA- being followed by ID ESRD with HD Pt in isolation- r/o MRSA HTN DM BPH Plan: Stool for H. pylori- neg Continue current regimen Monitor h/h transfuse as needed Patient seen in collaboration with Dr. Alvarado/Stefano Subjective: Pt without overt signs of GI bleed, HGB stable Coagulopathy has improved No new GI recommendations, we will continue to monitor for now. PHYSICAL EXAMINATION: GENERAL: Alert & oriented x 3, in no acute distress CHEST: Inspection within normal limits. CARDIOVASCULAR: Heart: Regular rate and rhythm, RESPIRATORY: Lungs clear to auscultation GASTROINTESTINAL AND LIVER: Abdomen: Soft, non tenderness, no organomegaly, no ascites, no guarding, no rebound tenderness, normoactive bowel sounds. Rectal: Deferred. GENITOURINARY: Male genitalia within normal limits. Cox catheter in place EXTREMITIES: No cyanosis, clubbing or edema. Result Diagram: 06/13/18 0431 06/13/18 0431 Results 24hrs Laboratory Tests Test 06/12/18 17:12 06/12/18 20:46 06/13/18 04:31 06/13/18 07:49 Bedside Glucose 90 85 88 White Blood Count 4.2 L Red Blood Count 2.98 L Hemoglobin 9.2 L Hematocrit 27.9 L Mean Corpuscular 93.6 Volume Mean Corpuscular 30.9 Hemoglobin Mean Corpuscular 33.0 Hemoglobin Concent Red Cell 14.7 H Distribution Width Platelet Count 165 Mean Platelet Volume 9.5 Immature 0.500 H Granulocytes % Neutrophils % 65.6 Lymphocytes % 19.3 Monocytes % 5.5 Eosinophils % 8.4 H Basophils % 0.7 Nucleated Red Blood 0.0 Cells % Immature 0.020 Granulocytes # Neutrophils # 2.7 Lymphocytes # 0.8 Monocytes # 0.2 L Eosinophils # 0.4 Basophils # 0.0 Nucleated Red Blood 0.0 Cells # Prothrombin Time 16.8 H Prothrombin Time 1.3 Ratio INR International 1.35 Normalized Ratio Activated 38.0 H Partial Thromboplast Time Thrombin Time 17.9 Sodium Level 137 Potassium Level 4.8 Chloride Level 101 Carbon Dioxide Level 29 Anion Gap 7 Blood Urea Nitrogen 8 Creatinine 2.31 H Est Glomerular 29 L Filtrat Rate mL/min Glucose Level 74 Calcium Level 8.0 L Phosphorus Level 2.0 L Magnesium Level 1.9 Test 06/13/18 11:59 Bedside Glucose 85 Exam/Review of Systems Vital Signs Vitals Vital Signs Date Temp Pulse Resp B/P (MAP) Pulse Ox O2 O2 Flow FiO2 Time Delivery Rate 06/13/18 62 16 97 Nasal 2.0 15:03 Cannula 06/13/18 97.8 123/64 14:30 (83) 06/12/18 28 07:54 Intake and Output 06/12/18 06/12/18 06/13/18 1515:00 23:00 07:00 IntakeIntake Total 300 ml 100 ml 200 ml OutputOutput Total 0 ml 2400 ml BalanceBalance 300 ml -2300 ml 200 ml Medications Medications Current Medications IV Flush (NS 3 ml) 3 ml PER PROTOCOL IV ; Start 06/08/18 at 16:30 Ondansetron HCl (Zofran Inj) 4 mg Q6H PRN IV NAUSEA AND/OR VOMITING Last admi nistered on 06/13/18at 04:24; Admin Dose 4 MG; Start 06/08/18 at 16:30 Acetaminophen (Tylenol Tab) 650 mg Q6H PRN PO PAIN LEVEL 1-3 OR FEVER; Start 06/08/18 at 16:30 Acetaminophen/ Hydrocodone Bitart ([place] (5/325)) 1 tab Q6H PRN PO PAIN LEVEL 4-6; Start 06/08/18 at 16:30 Vancomycin HCl (Vanco Iv Per Pharmacy) VANCOMYCIN PER PHARMACY PER PROTOCOL XX ; Start 06/08/18 at 16:30 Piperacillin Sod/ Tazobactam Sod 100 ml @ 25 mls/hr Q12 IVPB Last administered on 06/13/18at 08:15; Admin Dose 25 MLS/HR; Start 06/08/18 at 22:00 Albuterol/ Ipratropium (Duoneb) 3 ml Q6HWA RESP THERAPY HHN Last administered on 06/13/18at 15:03; Admin Dose 3 ML; Start 06/08/18 at 20:00 Albuterol/ Ipratropium (Duoneb) 3 ml Q2H RESP THERAPY PRN HHN shortness of breath; Start 06/08/18 at 16:30 Budesonide (Pulmicort (Neb)) 0.5 mg BID RESP THERAPY HHN Last administered on 06/13/18at 07:39; Admin Dose 0.5 MG; Start 06/08/18 at 20:00 Docusate Sodium (Colace) 200 mg QHS PO Last administered on 06/12/18 20:25; Admin Dose 200 MG; Start 06/08/18 at 21:00 Levothyroxine Sodium (Synthroid) 75 mcg BEFORE BREAKFAST PO Last administered on 06/13/18at 06:08; Admin Dose 75 MCG; Start 06/09/18 at 07:00 Tamsulosin HCl (Flomax) 0.4 mg HS PO Last administered on 06/12/18 20:25; Admin Dose 0.4 MG; Start 06/08/18 at 21:00 Hydralazine HCl (Apresoline) 10 mg Q4H PRN IV sbp >160 Last administered on 06/13/18at 02:25; Admin Dose 10 MG; Start 06/08/18 at 16:30 Diagnostic Test (Pha) (Accu-Chek) 1 ea 02 XX ; Start 06/09/18 at 02:00 Insulin Aspart (Novolog Insulin Pen) NOVOLOG *MILD* ALGORITHM WITH MEALS BEDTIME SC ; Start 06/08/18 at 18:00 Guaifenesin/ Codeine Phosphate (Robitussin Ac Liquid Cup) 5 ml Q4H PRN PO cough Last administered on 06/13/18at 12:16; Admin Dose 5 ML; Start 06/08/18 at 16:30 Miscellaneous Information 1 ea NOTE XX ; Start 06/08/18 at 18:00 Glucose (Glutose) 15 gm Q15M PRN PO DECREASED GLUCOSE; Start 06/08/18 at 18:00 Glucose (Glutose) 22.5 gm Q15M PRN PO DECREASED GLUCOSE; Start 06/08/18 at 18: 00 Dextrose (D50w Syringe) 25 ml Q15M PRN IV DECREASED GLUCOSE; Start 06/08/18 at 18:00 Dextrose (D50w Syringe) 50 ml Q15M PRN IV DECREASED GLUCOSE; Start 06/08/18 at 18:00 Glucagon (Glucagen) 1 mg Q15M PRN IM DECREASED GLUCOSE; Start 06/08/18 at 18:00 Glucose (Glutose) 15 gm Q15M PRN BUCCAL DECREASED GLUCOSE; Start 06/08/18 at 18:00 Epoetin Mauricio (Epogen (Esrd)) 10,000 units AFTER DIALYSIS SC ; Start 06/09/18 at 07:30 Azithromycin (Zithromax) 250 mg DAILY PO Last administered on 06/13/18at 08:15; Admin Dose 250 MG; Start 06/09/18 at 18:00 Ciprofloxacin HCl (Ciloxan 0.3% Oph) 1 drop Q4H WHILE AWAKE BOTH EYES Last administered on 06/13/18at 13:28; Admin Dose 1 DROP; Start 06/12/18 at 13:00; Stop 06/17/18 at 12:59 Nifedipine (Procardia Xl) 30 mg BID PO Last administered on 06/13/18at 08:16; Admin Dose 30 MG; Start 06/11/18 at 21:00 Pantoprazole (Protonix Tab) 40 mg BID@06,18 PO Last administered on 06/13/18at 05:25; Admin Dose 40 MG; Start 06/11/18 at 18:00 Vancomycin HCl 250 ml @ 125 mls/hr Q96H IVPB Last administered on 06/13/18at 07:53; Admin Dose 125 MLS/HR; Start 06/13/18 at 08:00 Morphine Sulfate (morphine) 2 mg Q4H PRN IV PAIN LEVEL 7-10 Last administered on 06/13/18at 12:17; Admin Dose 2 MG; Start 06/13/18 at 08:00 DARCI OSHEA Jun 13, 2018 15:26
--- NOTE | 2018-06-13 16:39 | PN ---
Date/Time of Note Date/Time of Note DATE: 06/13/18 TIME: 16:38 Assessment/Plan VTE Prophylaxis Risk score (from Nsg)>0 risk: 6 SCD applied (from Nsg): Yes Pharmacological prophylaxis: heparin Lines/Catheters IV Catheter Type (from Nrsg): Saline Lock Urinary Cath still in place: No Assessment/Plan Hospital Course Physical exam General: Patient is laying in bed and answers questions appropriately Mentation: Patient is alert and oriented 4, Head: Normocephalic atraumatic Eyes: EOMI, pupils reactive to light Neck: Supple, nontender, midline Respiratory: Coarse to auscultation bilaterally Cardiovascular: regular rate, no obvious murmurs Gastrointestinal: non-tender to palpation, bowel sounds heard. Neurological: Moves all extremities spontaneously Skin: No new skin lesions Assessment and plan Acute hypoxic respiratory distress -Secondary to multilobular pneumonia -Improved significantly Multilobular pneumonia -IV antibiotic, transition to po soon -ID on board -DuoNeb nebulizer, budesonide nebulizer -blood cultures noted Chest pain -Likely secondary to above pneumonia and cough -Trended troponins, negative x3 Hypotension/septic shock 2/2 PNA-resolved -Off of pressors -Monitor closely Anemia with bright red blood per rectum with elevated INR -No reported GI bleed on admission however patient did have multiple bloody bowel movements during admission, now stable -GI on board -renal diet -Patient's INR elevated with unknown cause, ultrasound and CT did not show any particular issues with the liver, hepatitis panel neg -Ordered FFP and vitamin K, keep an eye on INR, returning to normal but still unknown cause. -Monitor hemoglobin levels -Transfuse as needed -egd/colonoscopy not showing clear reason for GI bleed, found only gastritis on EGD, nothing else compelling on colonoscopy End-stage renal disease on hemodialysis -Nephrology consulted -Dialysis as needed Hypertension -reintroducing home medications, although the dose may be too high, adjusting as needed Hypothyroidism -Continue home meds Diabetes mellitus -Insulin sliding scale, -A1c is 4.9, questionable if patient has diabetes BPH -Continue Flomax Disposition -Physical therapy ordered for patient, infectious disease input appreciated, hopefully able to transition to p.o. antibiotics soon and discharge in a few days. Result Diagram: 06/13/18 0431 06/13/18 0431 Results 24hrs Laboratory Tests Test 06/12/18 17:12 06/12/18 20:46 06/13/18 04:31 06/13/18 07:49 Bedside Glucose 90 85 88 White Blood Count 4.2 L Red Blood Count 2.98 L Hemoglobin 9.2 L Hematocrit 27.9 L Mean Corpuscular 93.6 Volume Mean Corpuscular 30.9 Hemoglobin Mean Corpuscular 33.0 Hemoglobin Concent Red Cell 14.7 H Distribution Width Platelet Count 165 Mean Platelet Volume 9.5 Immature 0.500 H Granulocytes % Neutrophils % 65.6 Lymphocytes % 19.3 Monocytes % 5.5 Eosinophils % 8.4 H Basophils % 0.7 Nucleated Red Blood 0.0 Cells % Immature 0.020 Granulocytes # Neutrophils # 2.7 Lymphocytes # 0.8 Monocytes # 0.2 L Eosinophils # 0.4 Basophils # 0.0 Nucleated Red Blood 0.0 Cells # Prothrombin Time 16.8 H Prothrombin Time 1.3 Ratio INR International 1.35 Normalized Ratio Activated 38.0 H Partial Thromboplast Time Thrombin Time 17.9 Sodium Level 137 Potassium Level 4.8 Chloride Level 101 Carbon Dioxide Level 29 Anion Gap 7 Blood Urea Nitrogen 8 Creatinine 2.31 H Est Glomerular 29 L Filtrat Rate mL/min Glucose Level 74 Calcium Level 8.0 L Phosphorus Level 2.0 L Magnesium Level 1.9 Test 06/13/18 11:59 Bedside Glucose 85 Subjective 24 Hr Interval Summary Free Text/Dictation No change to clinical status Exam/Review of Systems Vital Signs Vitals Vital Signs Date Temp Pulse Resp B/P (MAP) Pulse Ox O2 O2 Flow FiO2 Time Delivery Rate 06/13/18 62 16 97 Nasal 2.0 15:03 Cannula 06/13/18 97.8 123/64 14:30 (83) 06/12/18 28 07:54 Intake and Output 06/12/18 06/12/18 06/13/18 1515:00 23:00 07:00 IntakeIntake Total 300 ml 100 ml 200 ml OutputOutput Total 0 ml 2400 ml BalanceBalance 300 ml -2300 ml 200 ml Medications Medications Current Medications IV Flush (NS 3 ml) 3 ml PER PROTOCOL IV ; Start 06/08/18 at 16:30 Ondansetron HCl (Zofran Inj) 4 mg Q6H PRN IV NAUSEA AND/OR VOMITING Last administered on 06/13/18at 04:24; Admin Dose 4 MG; Start 06/08/18 at 16:30 Acetaminophen (Tylenol Tab) 650 mg Q6H PRN PO PAIN LEVEL 1-3 OR FEVER; Start 06/08/18 at 16:30 Acetaminophen/ Hydrocodone Bitart ([place] (5/325)) 1 tab Q6H PRN PO PAIN LEVEL 4-6; Start 06/08/18 at 16:30 Vancomycin HCl (Vanco Iv Per Pharmacy) VANCOMYCIN PER PHARMACY PER PROTOCOL XX ; Start 06/08/18 at 16:30 Piperacillin Sod/ Tazobactam Sod 100 ml @ 25 mls/hr Q12 IVPB Last administered on 06/13/18at 08:15; Admin Dose 25 MLS/HR; Start 06/08/18 at 22:00 Albuterol/ Ipratropium (Duoneb) 3 ml Q6HWA RESP THERAPY HHN Last administered on 06/13/18at 15:03; Admin Dose 3 ML; Start 06/08/18 at 20:00 Albuterol/ Ipratropium (Duoneb) 3 ml Q2H RESP THERAPY PRN HHN shortness of breath; Start 06/08/18 at 16:30 Budesonide (Pulmicort (Neb)) 0.5 mg BID RESP THERAPY HHN Last administered on 06/13/18at 07:39; Admin Dose 0.5 MG; Start 06/08/18 at 20:00 Docusate Sodium (Colace) 200 mg QHS PO Last administered on 06/12/18at 20:25; Admin Dose 200 MG; Start 06/08/18 at 21:00 Levothyroxine Sodium (Synthroid) 75 mcg BEFORE BREAKFAST PO Last administered on 06/13/18at 06:08; Admin Dose 75 MCG; Start 06/09/18 at 07:00 Tamsulosin HCl (Flomax) 0.4 mg HS PO Last administered on 06/12/18at 20:25; Admin Dose 0.4 MG; Start 06/08/18 at 21:00 Hydralazine HCl (Apresoline) 10 mg Q4H PRN IV sbp >160 Last administered on 06/13/18at 02:25; Admin Dose 10 MG; Start 06/08/18 at 16:30 Diagnostic Test (Pha) (Accu-Chek) XX ; Start 06/09/18 at 02:00 Insulin Aspart (Novolog Insulin Pen) NOVOLOG *MILD* ALGORITHM WITH MEALS BEDTIME SC ; Start 06/08/18 at 18:00 Guaifenesin/ Codeine Phosphate (Robitussin Ac Liquid Cup) 5 ml Q4H PRN PO cough Last administered on 06/13/18at 12:16; Admin Dose 5 ML; Start 06/08/18 at 16:30 Miscellaneous Information 1 ea NOTE XX ; Start 06/08/18 at 18:00 Glucose (Glutose) 15 gm Q15M PRN PO DECREASED GLUCOSE; Start 06/08/18 at 18:00 Glucose (Glutose) 22.5 gm Q15M PRN PO DECREASED GLUCOSE; Start 06/08/18 at 18:00 Dextrose (D50w Syringe) 25 ml Q15M PRN IV DECREASED GLUCOSE; Start 06/08/18 at 18:00 Dextrose (D50w Syringe) 50 ml Q15M PRN IV DECREASED GLUCOSE; Start 06/08/18 at 18:00 Glucagon (Glucagen) 1 mg Q15M PRN IM DECREASED GLUCOSE; Start 06/08/18 at 18:00 Glucose (Glutose) 15 gm Q15M PRN BUCCAL DECREASED GLUCOSE; Start 06/08/18 at 18:00 Epoetin Mauricio (Epogen (Esrd)) 10,000 units AFTER DIALYSIS SC ; Start 06/09/18 at 07:30 Azithromycin (Zithromax) 250 mg DAILY PO Last administered on 06/13/18at 08:15; Admin Dose 250 MG; Start 06/09/18 at 18:00 Ciprofloxacin HCl (Ciloxan 0.3% Oph) 1 drop Q4H WHILE AWAKE BOTH EYES Last administered on 06/13/18at 13:28; Admin Dose 1 DROP; Start 06/12/18 at 13:00; Stop 06/17/18 at 12:59 Nifedipine (Procardia Xl) 30 mg BID PO Last administered on 06/13/18at 08:16; Admin Dose 30 MG; Start 06/11/18 at 21:00 Pantoprazole (Protonix Tab) 40 mg BID@06,18 PO Last administered on 06/13/18at 05:25; Admin Dose 40 MG; Start 06/11/18 at 18:00 Vancomycin HCl 250 ml @ 125 mls/hr Q96H IVPB Last administered on 06/13/18at 07:53; Admin Dose 125 MLS/HR; Start 06/13/18 at 08:00 Morphine Sulfate (morphine) 2 mg Q4H PRN IV PAIN LEVEL 7-10 Last administered on 06/13/18at 12:17; Admin Dose 2 MG; Start 06/13/18 at 08:00 JOHN FARRAR MD Jun 13, 2018 16:39
--- NOTE | 2018-06-13 18:33 | CONS ---
Date/Time of Note Date/Time of Note DATE: 06/13/18 TIME: 18:21 Assessment/Plan Assessment/Plan Hospital Course ID PROGRESS NOTE CURRENT ABX: DAY #=> Vanco IV + Zosyn + Azith + Cipro OPTH GTT 06/13/1843006/13/18430 24H INTERVAL SUMMARY * A/A/O -- VSS, NAD, no fevers, patient is new to [place] on ABX for multifocal PNA w/increased infiltrates on last CXR as below. * Indwelling: Left arm AV fistula, femoral triple-lumen catheter * Chest x-ray on admission revealed a right upper lobe and left lower lobe infiltrates * CXR 06/11/18:IMPRESSION: Increased multifocal air space infiltrates concerning for pneumonia.Small layering pleural effusions bilaterally are increasing MICRO * Microbiology: Blood cultures negative PHYSICAL EXAMINATION: GENERAL: Afebrile, VSS, HEENT: AT, NC, anicteric NECK: Supple, trach CHEST: Equal chest rise bilaterally, without dyspnea on observation HEART: Pulse RRR ABDOMEN: Soft / NT EXTREMITIES: Warm, dry SKIN: No rash, no diaphoresis ID ASSESSMENT 58 yo M admit with: 1. Severe sepsis status post shock 2. Pneumonia 3. End-stage renal disease, hemodialysis dependent 4. Diabetes 5. Hypertension 7. Bilateral conjunctivitis (-)MRSA Nares ABX ALLERGIES: KNDA INVASIVES: PIV CURRENT ABX: DAY #=> Vanco IV + Zosyn + Azith + Cipro OPTH GTT ID RECOMMENDATIONS/PLAN: Continue current ABX -- DC PLANNING: * When cleared for DC may DC on the following ABX * 1. Vanco IV 1GM Q96H to be given @HD unti by RN w/continued dose per pharmacy = LAST DAY 06/19/18 * 2. Levaquin 250mg po QOD = LAST DAY 06/19/18 . Result Diagram: 06/13/1843006/13/18430 Results 24hrs Laboratory Tests Test 06/12/18 20:46 06/13/18 04:31 06/13/18 07:49 06/13/18 11:59 Bedside Glucose 85 88 85 White Blood Count 4.2 L Red Blood Count 2.98 L Hemoglobin 9.2 L Hematocrit 27.9 L Mean Corpuscular 93.6 Volume Mean Corpuscular 30.9 Hemoglobin Mean Corpuscular 33.0 Hemoglobin Concent Red Cell 14.7 H Distribution Width Platelet Count 165 Mean Platelet Volume 9.5 Immature 0.500 H Granulocytes % Neutrophils % 65.6 Lymphocytes % 19.3 Monocytes % 5.5 Eosinophils % 8.4 H Basophils % 0.7 Nucleated Red Blood 0.0 Cells % Immature 0.020 Granulocytes # Neutrophils # 2.7 Lymphocytes # 0.8 Monocytes # 0.2 L Eosinophils # 0.4 Basophils # 0.0 Nucleated Red Blood 0.0 Cells # Prothrombin Time 16.8 H Prothrombin Time 1.3 Ratio INR International 1.35 Normalized Ratio Activated 38.0 H Partial Thromboplast Time Thrombin Time 17.9 Sodium Level 137 Potassium Level 4.8 Chloride Level 101 Carbon Dioxide Level 29 Anion Gap 7 Blood Urea Nitrogen 8 Creatinine 2.31 H Est Glomerular 29 L Filtrat Rate mL/min Glucose Level 74 Calcium Level 8.0 L Phosphorus Level 2.0 L Magnesium Level 1.9 Test 06/13/18 17:07 Bedside Glucose 92 Consultation Date/Type/Reason Admit Date/Time Jun 08, 2018 at 16:30 Initial Consult Date 06/09/18 Exam/Review of Systems Vital Signs Vitals Vital Signs Date Temp Pulse Resp B/P (MAP) Pulse Ox O2 O2 Flow FiO2 Time Delivery Rate 06/13/18 62 16 97 Nasal 2.0 15:03 Cannula 06/13/18 97.8 123/64 14:30 (83) 06/12/18 28 07:54 Intake and Output 06/12/18 06/12/18 06/13/18 1515:00 23:00 07:00 IntakeIntake Total 300 ml 100 ml 200 ml OutputOutput Total 0 ml 2400 ml BalanceBalance 300 ml -2300 ml 200 ml Medications Medications Current Medications IV Flush (NS 3 ml) 3 ml PER PROTOCOL IV ; Start 06/08/18 at 16:30 Ondansetron HCl (Zofran Inj) 4 mg Q6H PRN IV NAUSEA AND/OR VOMITING Last administered on 06/13/18at 04:24; Admin Dose 4 MG; Start 06/08/18 at 16:30 Acetaminophen (Tylenol Tab) 650 mg Q6H PRN PO PAIN LEVEL 1-3 OR FEVER; Start 06/08/18 at 16:30 Acetaminophen/ Hydrocodone Bitart ([place] (5/325)) 1 tab Q6H PRN PO PAIN LEVEL 4-6; Start 06/08/18 at 16:30 Vancomycin HCl (Vanco Iv Per Pharmacy) VANCOMYCIN PER PHARMACY PER PROTOCOL XX ; Start 06/08/18 at 16:30 Piperacillin Sod/ Tazobactam Sod 100 ml @ 25 mls/hr Q12 IVPB Last administered on 06/13/18at 08:15; Admin Dose 25 MLS/HR; Start 06/08/18 at 22:00 Albuterol/ Ipratropium (Duoneb) 3 ml Q6HWA RESP THERAPY HHN Last administered on 06/13/18at 15:03; Admin Dose 3 ML; Start 06/08/18 at 20:00 Albuterol/ Ipratropium (Duoneb) 3 ml Q2H RESP THERAPY PRN HHN shortness of breath; Start 06/08/18 at 16:30 Budesonide (Pulmicort (Neb)) 0.5 mg BID RESP THERAPY HHN Last administered on 06/13/18at 07:39; Admin Dose 0.5 MG; Start 06/08/18 at 20:00 Docusate Sodium (Colace) 200 mg QHS PO Last administered on 06/12/18at 20:25; Admin Dose 200 MG; Start 06/08/18 at 21:00 Levothyroxine Sodium (Synthroid) 75 mcg BEFORE BREAKFAST PO Last administered on 06/13/18at 06:08; Admin Dose 75 MCG; Start 06/09/18 at 07:00 Tamsulosin HCl (Flomax) 0.4 mg HS PO Last administered on 06/12/18at 20:25; Admin Dose 0.4 MG; Start 06/08/18 at 21:00 Diagnostic Test (Pha) (Accu-Chek) 1 ea 02 XX ; Start 06/09/18 at 02:00 Insulin Aspart (Novolog Insulin Pen) NOVOLOG *MILD* ALGORITHM WITH MEALS BEDTIME SC ; Start 06/08/18 at 18:00 Guaifenesin/ Codeine Phosphate (Robitussin Ac Liquid Cup) 5 ml Q4H PRN PO cough Last administered on 06/13/18at 17:10; Admin Dose 5 ML; Start 06/08/18 at 16:30 Miscellaneous Information 1 ea NOTE XX ; Start 06/08/18 at 18:00 Glucose (Glutose) 15 gm Q15M PRN PO DECREASED GLUCOSE; Start 06/08/18 at 18:00 Glucose (Glutose) 22.5 gm Q15M PRN PO DECREASED GLUCOSE; Start 06/08/18 at 18:00 Dextrose (D50w Syringe) 25 ml Q15M PRN IV DECREASED GLUCOSE; Start 06/08/18 at 18:00 Dextrose (D50w Syringe) 50 ml Q15M PRN IV DECREASED GLUCOSE; Start 06/08/18 at 18:00 Glucagon (Glucagen) 1 mg Q15M PRN IM DECREASED GLUCOSE; Start 06/08/18 at 18:00 Glucose (Glutose) 15 gm Q15M PRN BUCCAL DECREASED GLUCOSE; Start 06/08/18 at 18:00 Epoetin Mauricio (Epogen (Esrd)) 10,000 units AFTER DIALYSIS SC ; Start 06/09/18 at 07:30 Azithromycin (Zithromax) 250 mg DAILY PO Last administered on 06/13/18at 08:15; Admin Dose 250 MG; Start 06/09/18 at 18:00 Ciprofloxacin HCl (Ciloxan 0.3% Oph) 1 drop Q4H WHILE AWAKE BOTH EYES Last administered on 06/13/18at 17:10; Admin Dose 1 DROP; Start 06/12/18 at 13:00; Stop 06/17/18 at 12:59 Nifedipine (Procardia Xl) 30 mg BID PO Last administered on 06/13/18at 08:16; Admin Dose 30 MG; Start 06/11/18 at 21:00 Pantoprazole (Protonix Tab) 40 mg BID@06,18 PO Last administered on 06/13/18at 17:11; Admin Dose 40 MG; Start 06/11/18 at 18:00 Vancomycin HCl 250 ml @ 125 mls/hr Q96H IVPB Last administered on 06/13/18at 07:53; Admin Dose 125 MLS/HR; Start 06/13/18 at 08:00 JAMIR SERNA NP Jun 13, 2018 18:32
[2018-06-13 20:00] VITALS: BP 118/63; PULSE 86; RESP 18
[2018-06-13] MEDS: DOCUSATE SODIUM 100 MG CAP PO SCH (20:49)
[2018-06-13] MEDS: HYDROCODONE/APAP (5/325) TAB PO PRN (20:49)
[2018-06-13] MEDS: TAMSULOSIN (SR) 0.4 MG CAP PO SCH (20:59)
[2018-06-14] MEDS: CIPROFLOXACIN 0.3% 2.5 ML OPH BOTH EYES SCH ×5 (00:48→17:54)
[2018-06-14] MEDS ORDERED: ZOLPIDEM 5 MG TAB PO PRN (01:00)
[2018-06-14] MEDS: ACCU-CHEK XX SCH (01:56)
[2018-06-14 02:00] VITALS: BP 159/76; PULSE 67; RESP 16
[2018-06-14] MEDS: PANTOPRAZOLE (EC) 40 MG TAB PO SCH ×2 (05:55→17:54)
[2018-06-14] MEDS: LEVOTHYROXINE 75 MCG TAB PO SCH (05:56)
[2018-06-14] MEDS: INSULIN ASPART [NOVOLOG] 3 ML PEN SC SCH ×3 (08:00→17:55)
[2018-06-14 08:06] VITALS: BP 118/56; PULSE 62; RESP 17
[2018-06-14] MEDS: ALBUTEROL/IPRATROPIUM (NEB) 3 ML AMP HHN SCH ×2 (08:40→13:44)
[2018-06-14] MEDS: BUDESONIDE (NEB) 0.5MG/2ML AMP HHN SCH (08:41)
--- NOTE | 2018-06-14 09:01 | PN ---
DATE: 06/14/2018 SUBJECTIVE: The patient is stable, had hemodialysis yesterday, tolerated well. OBJECTIVE: VITAL SIGNS: Blood pressure is 159/76, respirations 16, pulse 67, temperature 97.8. HEENT: Head is normocephalic. NECK: Supple. HEART: Regular rate. LUNGS: Show diminished breath sounds at the base. ABDOMEN: Soft, nontender to palpation without rebound or guarding. EXTREMITIES: Negative for clubbing, cyanosis, no edema. DERMATOLOGIC: No rashes. MUSCULOSKELETAL: No joint effusion. NEUROLOGIC: No change in exam. MEDICATIONS: Reviewed. LABORATORY DATA: From 06/13/2018 was reviewed. ASSESSMENT AND PLAN: 1. End-stage renal disease. The patient's last hemodialysis was on Thursday. I anticipate hemodial ysis again tomorrow. 2. Anemia. The patient is status post blood transfusion. Continue to monitor hemoglobin and hemato crit levels. Continue proton pump inhibitor. 3. Mineral bone disorder. Monitor calcium and phosphorus levels. 4. Sepsis, status post shock secondary to pneumonia. Continue broad-spectrum antibiotics. 5. Hypoxemic respiratory failure secondary to pneumonia. The patient is clinically improving. Cont inue medical management. Continue nebulizer, supplemental oxygen. 6. Hypertension. Continue current blood pressure regimen. 7. Hypothyroidism. Continue Synthroid. 8. Diabetes. Continue current insulin regimen. 9. Benign prostatic hypertrophy. Continue Flomax. Dictated By: NAE MENDOZA DO NR/NTS Conf#: [id number] DID#: [id number] CC: ZAHEER MONTES DE OCA MD; JOHN FARRAR MD;*EndCC*
[2018-06-14] MEDS: NIFEdipine (XL) 30 MG TAB PO SCH (09:17)
[2018-06-14] MEDS: AZITHROMYCIN 250 MG TAB PO SCH (09:17)
[2018-06-14] MEDS: PIPER-TAZO 3.375 GM IV (PMX) 100 ML IVPB SCH (09:17)
--- NOTE | 2018-06-14 10:48 | PN ---
Date/Time of Note Date/Time of Note DATE: 06/14/18 TIME: 10:35 Assessment/Plan VTE Prophylaxis Risk score (from Nsg)>0 risk: 6 SCD applied (from Nsg): Yes Pharmacological prophylaxis: other (scds) Lines/Catheters IV Catheter Type (from Nrsg): Saline Lock Urinary Cath still in place: No Assessment/Plan Hospital Course Assessment: Hematochezia Severe normocytic anemia S/p EGD/Colonoscopy 06/10/18 -Gastritis -Normal colonoscopy PNA- being followed by ID ESRD with HD Pt in isolation- r/o MRSA HTN DM BPH Plan: Continue current regimen Monitor labs- HGB stable without overt signs of GI bleed GI will sign off but will be available upon reconsult Patient seen in collaboration with Dr. Alvarado/Stefano Subjective: No over night events HGB up today. Pt appears comfortable No c/o abd pain or n/v. PHYSICAL EXAMINATION: GENERAL: Alert & oriented x 3, in no acute distress CHEST: Inspection within normal limits. CARDIOVASCULAR: Heart: Regular rate and rhythm, RESPIRATORY: Lungs clear to auscultation GASTROINTESTINAL AND LIVER: Abdomen: Soft, non tenderness, no organomegaly, no ascites, no guarding, no rebound tenderness, normoactive bowel sounds. Rectal: Deferred. GENITOURINARY: Male genitalia within normal limits. Cox catheter in place EXTREMITIES: No cyanosis, clubbing or edema. Result Diagram: 06/13/18 0431 06/13/18 0431 Results 24hrs Laboratory Tests Test 06/13/18 11:59 06/13/18 17:07 06/13/18 21:01 06/14/18 09:16 Bedside Glucose 85 92 99 99 Exam/Review of Systems Vital Signs Vitals Vital Signs Date Temp Pulse Resp B/P (MAP) Pulse Ox O2 O2 Flow FiO2 Time Delivery Rate 06/14/18 Nasal 2.0 09:57 Cannula 06/14/18 64 15 98 08:31 06/14/18 98.4 118/56 08:06 (76) 06/12/18 28 07:54 Intake and Output 06/13/18 06/13/18 06/14/18 1515:00 23:00 07:00 IntakeIntake Total 950 ml 100 ml BalanceBalance 950 ml 100 ml Medications Medications Current Medications IV Flush (NS 3 ml) 3 ml PER PROTOCOL IV ; Start 06/08/18 at 16:30 Ondansetron HCl (Zofran Inj) 4 mg Q6H PRN IV NAUSEA AND/OR VOMITING Last administered on 06/13/18 20:49; Admin Dose 4 MG; Start 06/08/18 at 16:30 Acetaminophen (Tylenol Tab) 650 mg Q6H PRN PO PAIN LEVEL 1-3 OR FEVER; Start 06/08/18 at 16:30 Acetaminophen/ Hydrocodone Bitart ([place] (5/325)) 1 tab Q6H PRN PO PAIN LEVEL 4-6 Last administered on 06/13/18 20:49; Admin Dose 1 TAB; Start 06/08/18 at 16:30 Vancomycin HCl (Vanco Iv Per Pharmacy) VANCOMYCIN PER PHARMACY PER PROTOCOL XX ; Start 06/08/18 at 16:30 Piperacillin Sod/ Tazobactam Sod 100 ml @ 25 mls/hr Q12 IVPB Last administered on 06/14/18 09:17; Admin Dose 25 MLS/HR; Start 06/08/18 at 22:00 Albuterol/ Ipratropium (Duoneb) 3 ml Q6HWA RESP THERAPY HHN Last administered on 06/14/18 08:40; Admin Dose 3 ML; Start 06/08/18 at 20:00 Albuterol/ Ipratropium (Duoneb) 3 ml Q2H RESP THERAPY PRN HHN shortness of breath; Start 06/08/18 at 16:30 Budesonide (Pulmicort (Neb)) 0.5 mg BID RESP THERAPY HHN Last administered on 06/14/18 08:41; Admin Dose 0.5 MG; Start 06/08/18 at 20:00 Docusate Sodium (Colace) 200 mg QHS PO Last administered on 06/12/18 20:25; Admin Dose 200 MG; Start 06/08/18 at 21:00 Levothyroxine Sodium (Synthroid) 75 mcg BEFORE BREAKFAST PO Last administered on 06/14/18 05:56; Admin Dose 75 MCG; Start 06/09/18 at 07:00 Tamsulosin HCl (Flomax) 0.4 mg HS PO Last administered on 06/13/18 20:59; Admin Dose 0.4 MG; Start 06/08/18 at 21:00 Diagnostic Test (Pha) (Accu-Chek) 1 ea 02 XX ; Start 06/09/18 at 02:00 Insulin Aspart (Novolog Insulin Pen) NOVOLOG *MILD* ALGORITHM WITH MEALS BEDTIME SC ; Start 06/08/18 at 18:00 Guaifenesin/ Codeine Phosphate (Robitussin Ac Liquid Cup) 5 ml Q4H PRN PO cough Last administered on 06/13/18at 22:27; Admin Dose 5 ML; Start 06/08/18 at 16:30 Miscellaneous Information 1 ea NOTE XX ; Start 06/08/18 at 18:00 Glucose (Glutose) 15 gm Q15M PRN PO DECREASED GLUCOSE; Start 06/08/18 at 18:00 Glucose (Glutose) 22.5 gm Q15M PRN PO DECREASED GLUCOSE; Start 06/08/18 at 18:00 Dextrose (D50w Syringe) 25 ml Q15M PRN IV DECREASED GLUCOSE; Start 06/08/18 at 18:00 Dextrose (D50w Syringe) 50 ml Q15M PRN IV DECREASED GLUCOSE; Start 06/08/18 at 18:00 Glucagon (Glucagen) 1 mg Q15M PRN IM DECREASED GLUCOSE; Start 06/08/18 at 18:00 Glucose (Glutose) 15 gm Q15M PRN BUCCAL DECREASED GLUCOSE; Start 06/08/18 at 18:00 Epoetin Mauricio (Epogen (Esrd)) 10,000 units AFTER DIALYSIS SC ; Start 06/09/18 at 07:30 Azithromycin (Zithromax) 250 mg DAILY PO Last administered on 06/14/18at 09:17; Admin Dose 250 MG; Start 06/09/18 at 18:00 Ciprofloxacin HCl (Ciloxan 0.3% Oph) 1 drop Q4H WHILE AWAKE BOTH EYES Last administered on 06/14/18at 09:29; Admin Dose 1 DROP; Start 06/12/18 at 13:00; Stop 06/17/18 at 12:59 Nifedipine (Procardia Xl) 30 mg BID PO Last administered on 06/14/18at 09:17; Admin Dose 30 MG; Start 06/11/18 at 21:00 Pantoprazole (Protonix Tab) 40 mg BID@06,18 PO Last administered on 06/14/18at 05:55; Admin Dose 40 MG; Start 06/11/18 at 18:00 Vancomycin HCl 250 ml @ 125 mls/hr Q96H IVPB Last administered on 06/13/18at 07:53; Admin Dose 125 MLS/HR; Start 06/13/18 at 08:00 Zolpidem Tartrate (Ambien) 5 mg HS MAY REPEAT X 1 PRN PO INSOMNIA Last administered on 06/14/18at 01:06; Admin Dose 5 MG; Start 06/14/18 at 01:00 DARCI OSHEA Jun 14, 2018 10:45
[2018-06-14 15:00] VITALS: BP 121/63; PULSE 68
--- NOTE | 2018-06-14 15:24 | CONS ---
Date/Time of Note Date/Time of Note DATE: 06/14/18 TIME: 15:23 Assessment/Plan Assessment/Plan Hospital Course ID PROGRESS NOTE CURRENT ABX: DAY #=> Vanco IV + Zosyn + Azith + Cipro OPTH GTT 24H INTERVAL SUMMARY * Clinicallly stable, DC planning in process -- working w/PTx, no fevers, A/A/O -- VSS, NAD, no fevers == completing ABX for multifocal PNA * Indwelling: Left arm AV fistula, femoral triple-lumen catheter * Chest x-ray on admission revealed a right upper lobe and left lower lobe infiltrates * CXR 06/11/18:IMPRESSION: Increased multifocal air space infiltrates concerning for pneumonia.Small layering pleural effusions bilaterally are increasing MICRO * Microbiology: Blood cultures negative PHYSICAL EXAMINATION: GENERAL: Afebrile, VSS, HEENT: AT, NC, anicteric NECK: Supple, trach CHEST: Equal chest rise bilaterally, without dyspnea on observation HEART: Pulse RRR ABDOMEN: Soft / NT EXTREMITIES: Warm, dry SKIN: No rash, no diaphoresis ID ASSESSMENT 58 yo M admit with: 1. Severe sepsis status post shock 2. Pneumonia 3. End-stage renal disease, hemodialysis dependent 4. Diabetes 5. Hypertension 7. Bilateral conjunctivitis (-)MRSA Nares ABX ALLERGIES: KNDA INVASIVES: PIV CURRENT ABX: DAY #=> Vanco IV + Zosyn + Azith + Cipro OPTH GTT ID RECOMMENDATIONS/PLAN: Continue current ABX -- DC PLANNING: * When cleared for DC may DC on the following ABX * 1. Vanco IV 1GM Q96H to be given @HD unti by RN w/continued dose per pharmacy = LAST DAY 06/19/18 * 2. Levaquin 250mg po QOD = LAST DAY 06/19/18 . Result Diagram: 06/13/18 0431 06/13/18 0431 Results 24hrs Laboratory Tests Test 06/13/18 17:07 06/13/18 21:01 06/14/18 09:16 Bedside Glucose 92 99 99 Consultation Date/Type/Reason Admit Date/Time Jun 08, 2018 at 16:30 Initial Consult Date 06/09/18 Exam/Review of Systems Vital Signs Vitals Vital Signs Date Temp Pulse Resp B/P (MAP) Pulse Ox O2 O2 Flow FiO2 Time Delivery Rate 06/14/18 98.2 68 121/63 95 Nasal 2.0 15:00 (82) Cannula 06/14/18 16 13:45 06/12/18 28 07:54 Intake and Output 06/13/18 06/13/18 06/14/18 1515:00 23:00 07:00 IntakeIntake Total 950 ml 100 ml BalanceBalance 950 ml 100 ml Medications Medications Current Medications IV Flush (NS 3 ml) 3 ml PER PROTOCOL IV ; Start 06/08/18 at 16:30 Ondansetron HCl (Zofran Inj) 4 mg Q6H PRN IV NAUSEA AND/OR VOMITING Last administered on 06/13/18 20:49; Admin Dose 4 MG; Start 06/08/18 at 16:30 Acetaminophen (Tylenol Tab) 650 mg Q6H PRN PO PAIN LEVEL 1-3 OR FEVER; Start 06/08/18 at 16:30 Acetaminophen/ Hydrocodone Bitart ([place] (5/325)) 1 tab Q6H PRN PO PAIN LEVEL 4-6 Last administered on 06/13/18at 20:49; Admin Dose 1 TAB; Start 06/08/18 at 16:30 Vancomycin HCl (Vanco Iv Per Pharmacy) VANCOMYCIN PER PHARMACY PER PROTOCOL XX ; Start 06/08/18 at 16:30 Piperacillin Sod/ Tazobactam Sod 100 ml @ 25 mls/hr Q12 IVPB Last administered on 06/14/18at 09:17; Admin Dose 25 MLS/HR; Start 06/08/18 at 22:00 Albuterol/ Ipratropium (Duoneb) 3 ml Q6HWA RESP THERAPY HHN Last administered on 06/14/18at 13:44; Admin Dose 3 ML; Start 06/08/18 at 20:00 Albuterol/ Ipratropium (Duoneb) 3 ml Q2H RESP THERAPY PRN HHN shortness of breath; Start 06/08/18 at 16:30 Budesonide (Pulmicort (Neb)) 0.5 mg BID RESP THERAPY HHN Last administered on 06/14/18at 08:41; Admin Dose 0.5 MG; Start 06/08/18 at 20:00 Docusate Sodium (Colace) 200 mg QHS PO Last administered on 06/12/18 20:25; Admin Dose 200 MG; Start 06/08/18 at 21:00 Levothyroxine Sodium (Synthroid) 75 mcg BEFORE BREAKFAST PO Last administered on 06/14/18at 05:56; Admin Dose 75 MCG; Start 06/09/18 at 07:00 Tamsulosin HCl (Flomax) 0.4 mg HS PO Last administered on 06/13/18at 20:59; Admin Dose 0.4 MG; Start 06/08/18 at 21:00 Diagnostic Test (Pha) (Accu-Chek) 1 ea 02 XX ; Start 06/09/18 at 02:00 Insulin Aspart (Novolog Insulin Pen) NOVOLOG *MILD* ALGORITHM WITH MEALS BEDTIME SC ; Start 06/08/18 at 18:00 Guaifenesin/ Codeine Phosphate (Robitussin Ac Liquid Cup) 5 ml Q4H PRN PO cough Last administered on 06/13/18at 22:27; Admin Dose 5 ML; Start 06/08/18 at 16:30 Miscellaneous Information 1 ea NOTE XX ; Start 06/08/18 at 18:00 Glucose (Glutose) 15 gm Q15M PRN PO DECREASED GLUCOSE; Start 06/08/18 at 18:00 Glucose (Glutose) 22.5 gm Q15M PRN PO DECREASED GLUCOSE; Start 06/08/18 at 18:00 Dextrose (D50w Syringe) 25 ml Q15M PRN IV DECREASED GLUCOSE; Start 06/08/18 at 18:00 Dextrose (D50w Syringe) 50 ml Q15M PRN IV DECREASED GLUCOSE; Start 06/08/18 at 18:00 Glucagon (Glucagen) 1 mg Q15M PRN IM DECREASED GLUCOSE; Start 06/08/18 at 18:00 Glucose (Glutose) 15 gm Q15M PRN BUCCAL DECREASED GLUCOSE; Start 06/08/18 at 18:00 Epoetin Mauricio (Epogen (Esrd)) 10,000 units AFTER DIALYSIS SC ; Start 06/09/18 at 07:30 Azithromycin (Zithromax) 250 mg DAILY PO Last administered on 06/14/18at 09:17; Admin Dose 250 MG; Start 06/09/18 at 18:00 Ciprofloxacin HCl (Ciloxan 0.3% Oph) 1 drop Q4H WHILE AWAKE BOTH EYES Last administered on 06/14/18at 09:29; Admin Dose 1 DROP; Start 06/12/18 at 13:00; Stop 1/24/19 at 12:59 Nifedipine (Procardia Xl) 30 mg BID PO Last administered on 06/14/18at 09:17; Admin Dose 30 MG; Start 06/11/18 at 21:00 Pantoprazole (Protonix Tab) 40 mg BID@06,18 PO Last administered on 06/14/18at 05:55; Admin Dose 40 MG; Start 06/11/18 at 18:00 Vancomycin HCl 250 ml @ 125 mls/hr Q96H IVPB Last administered on 06/13/18at 07:53; Admin Dose 125 MLS/HR; Start 06/13/18 at 08:00 Zolpidem Tartrate (Ambien) 5 mg HS MAY REPEAT X 1 PRN PO INSOMNIA Last administered on 06/14/18at 01:06; Admin Dose 5 MG; Start 06/14/18 at 01:00 JAMIR SERNA NP Jun 14, 2018 15:24
--- NOTE | 2018-06-14 15:47 | DS ---
Date/Time of Note Date/Time of Note DATE: 06/14/18 TIME: 15:45 Discharge Summary Admission/Discharge Info Admit Date/Time Jun 08, 2018 at 16:30 Discharge Date/Time Discharge Diagnosis Septic shock, pneumonia Patient Condition: Stable Hospital Course Isa admitted with respiratory symptosm and hypoxia. He was hypotensive with septic shock requiring pressors. Fluids bolused and BP resolved. Found to have multilobular pneumonia. This was treated by infectious diseases with IV antibiotics. He improved nicely. Cultures were negative. He complained of chest pain, troponins were negative. Also found to be anemic with BRBPR. Egd/colonoscopy not showing clear reason for GI bleed, found only gastritis on EGD, nothing else compelling on colonoscopy. INR was elevated and vitamin K was given. For his End-stage renal disease he was continued on hemodialysis He will complete 5 more days of levaquin as an outpatient Home Meds Reported Medications Multivit/Ca Carb/B Cmplx/Fa* (Chely-Maribel*) 1 Tab Tab, 1 TAB PO DAILY, TAB 06/08/18 Mirtazapine* (Mirtazapine*) 7.5 Mg Tablet, 7.5 MG PO HS, TAB 06/08/18 Ranitidine Hcl* (Ranitidine Hcl*) 150 Mg Tablet, 150 MG PO Q12, #60 TAB 06/08/18 Calcium Carbonate* (Calcium Carbonate*) 600 MG Ca Tab, 600 MG PO DAILY, TAB 06/08/18 Cranberry Extract (Cranberry) 425 Mg Capsule, 425 MG PO BID, CAP 06/08/18 Diphenhydramine Hcl* (Benadryl*) 50 Mg Cap, 50 MG PO Q6 PRN for ITCHING, CAP 04/15/18 Nitroglycerin* (Nitrostat*) 0.4 Mg Tab.subl, 0.4 MG SL Q5MIN PRN for CHEST PAIN, BOTTLE 04/15/18 Ondansetron Hcl* (Zofran*) 4 Mg Tablet, 4 MG PO Q6H PRN for NAUSEA AND OR VOMITING, TAB 04/15/18 Docusate Sodium* (Colace*) 100 Mg Capsule, 200 MG PO QHS, #60 CAP 04/15/18 Nifedipine* (Nifedipine ER*) 90 Mg Tablet.sa, 90 MG PO BID, TAB.SA 04/15/18 Pantoprazole* (Protonix*) 40 Mg Tablet.dr, 40 MG PO DAILY, TAB 04/15/18 Glycerin* (Glycerin (Adult)*) 1 Each Supp.rect, 1 EACH [place] DAILY PRN for CONSTIPATION, SUPP.RECT 04/15/18 Sevelamer Hcl* (Renagel*) 800 Mg Tablet, 1600 MG PO WITH MEALS, TAB 04/15/18 Hydralazine Hcl* (Hydralazine Hcl*) 50 Mg Tab, 50 MG PO BID PRN for ELEVATED BLOOD PRESSURE, #60 TAB HOLD FOR SBP<110 OR HR <60 04/15/18 Levothyroxine Sodium* (Levoxyl*) 75 Mcg Tablet, 75 MCG PO BEFORE BREAKFAST, #30 TAB 04/15/18 Tamsulosin Hcl* (Tamsulosin Hcl*) 0.4 Mg Cap.er.24h, 0.4 MG PO HS, CAP 04/15/18 Hydrocodone/Acetaminophen ([place] 5-325 Tablet) 1 Each Tablet, 2 EACH PO Q6 PRN for SEVERE PAIN LEVEL 7-10, TAB 04/15/18 Morphine Sulfate* (Ms Contin*) 15 Mg Tablet.sa, 15 MG PO Q12, TAB 04/15/18 Atropine Sulfate/0.9 %Sod Chlr (Atropine 0.01%-Ns Eye Drops) 10 Ml Drops, 1 DRP RIGHT EYE BID, BOTTLE 04/15/18 Magnesium Citrate* (Magnesium Citrate*) 296 Ml Solution, 296 ML PO ONCE PRN for CONSTIPATION, #1 BOTTLE 04/15/18 Levalbuterol* (Xopenex* HFA) 15 Gm Inha, 2 PUFFS INH Q4H PRN for WHEEZING AND SOB, INHALER 04/15/18 Discontinued Reported Medications Loperamide Hcl* (Loperamide Hcl*) 2 Mg Cap, 2 MG PO prn PRN for DIARRHEA, CAP 04/15/18 Clonidine Hcl* (Clonidine Hcl*) 0.1 Mg Tab, 0.1 MG PO prn PRN for ELEVATED BLOOD PRESSURE, TAB systolic 180 or higher and/or diastolic 100 or higher and/or symtomatic 04/15/18 Calcium Carbonate* (Calcium Carbonate*) 600 MG Ca Tab, 600 MG PO DAILY, TAB 04/15/18 Cranberry Extract (Cranberry) 425 Mg Capsule, 425 MG PO DAILY, CAP 04/15/18 Finasteride* (Proscar*) 5 Mg Tablet, 5 MG PO DAILY, TAB 04/15/18 Bisacodyl (Dulcolax) 10 Mg Supp.rect, 10 MG RC DAILY PRN for CONSTIPATION, SUPP.RECT 04/15/18 Guaifenesin-Dextromethorphan* (Robitussin* DM) 100MG/10MG/5ML Syrup, 10 ML PO Q6H PRN for COUGH, ML 04/15/18 Diphenhydramine Hcl* (Benadryl*) 50 Mg Cap, 50 MG PO QHS PRN for INSOMNIA, CAP 04/15/18 Primary Care Provider Barbara Julio MD Pending Labs Laboratory Tests Test 06/13/18 17:07 06/13/18 21:01 06/14/18 09:16 Bedside Glucose 92 mg/dL (70-220) 99 mg/dL (70-220) 99 mg/dL (70-220) JOHN FARRAR MD Jun 14, 2018 15:47
== END 2018-06-14 18:40 | DRG 871 ==
LOC: E/R 13:10 → ICU 16:30 → TEL 06-09 23:37 → PP2 06-10 18:44
PROVIDERS: ADMIT Internal Medicine; ATTEND Internal Medicine
PROC: 5A1D70Z Performance of Urinary Filtration, Intermittent, Less than 6 Hours Per Day (ICD-10-PCS; 2018-06-08)
PROC: 30233N1 Transfusion of Nonautologous Red Blood Cells into Peripheral Vein, Percutaneous Approach (ICD-10-PCS; 2018-06-09)
PROC: 30233N1 Transfusion of Nonautologous Red Blood Cells into Peripheral Vein, Percutaneous Approach (ICD-10-PCS; 2018-06-10)
PROC: 30233K1 Transfusion of Nonautologous Frozen Plasma into Peripheral Vein, Percutaneous Approach (ICD-10-PCS; 2018-06-10)
PROC: 30233K1 Transfusion of Nonautologous Frozen Plasma into Peripheral Vein, Percutaneous Approach (ICD-10-PCS; 2018-06-10)
PROC: 5A1D70Z Performance of Urinary Filtration, Intermittent, Less than 6 Hours Per Day (ICD-10-PCS; 2018-06-10)
PROC: 0DJ08ZZ Inspection of Upper Intestinal Tract, Via Natural or Artificial Opening Endoscopic (ICD-10-PCS; principal; 2018-06-10 16:30)
PROC: 0DJD8ZZ Inspection of Lower Intestinal Tract, Via Natural or Artificial Opening Endoscopic (ICD-10-PCS; 2018-06-10 16:30)
PROC: 30233N1 Transfusion of Nonautologous Red Blood Cells into Peripheral Vein, Percutaneous Approach (ICD-10-PCS; 2018-06-11)
PROC: 5A1D70Z Performance of Urinary Filtration, Intermittent, Less than 6 Hours Per Day (ICD-10-PCS; 2018-06-11)
PROC: 5A1D70Z Performance of Urinary Filtration, Intermittent, Less than 6 Hours Per Day (ICD-10-PCS; 2018-06-14)
DX: A41.9 Sepsis, unspecified organism (principal); R65.21 Severe sepsis with septic shock; J96.01 Acute respiratory failure with hypoxia; N18.6 End stage renal disease; J18.9 Pneumonia, unspecified organism; I12.0 Hypertensive chronic kidney disease with stage 5 chronic kidney disease or end stage renal disease; D68.9 Coagulation defect, unspecified; D62 Acute posthemorrhagic anemia; E11.22 Type 2 diabetes mellitus with diabetic chronic kidney disease; E03.9 Hypothyroidism, unspecified; N40.0 Benign prostatic hyperplasia without lower urinary tract symptoms; Z99.2 Dependence on renal dialysis; Z79.4 Long term (current) use of insulin
CPT/HCPCS: 36415; 36430; 71045; 76705; 80048; 80053; 80061; 80202; 82270; 82728; 82962; 83036; 83540; 83605; 83735; 84100; 84443; 84484; 85014; 85018; 85025; 85045; 85049; 85384; 85610; 85670; 85730; 86704; 86709; 86803; 86850; 86900; 86901; 86920; 87040; 87045; 87081; 87338; 87340; 90935; 93005; 94640; 94664; 96374; 96375; 97162; 97167; C9113; J0360; J1815; J2270; J2274; J2405; J2543; J2597; J3370; J7030; J7040; J7060; P9016; P9047; P9059; Q4081

== ENCOUNTER 2018-06-17 13:00 | Inpatient (IN) | payer OTHER ==
[~2018-06-17] VITALS: Ht 154.9 cm; Wt 59.0 kg
[2018-06-17] VITALS (9 sets, daily range): BP systolic 131–183; BP diastolic 72–82; PULSE 55–59; RESP 16–19; Ht 154.9 cm; Wt 59.0 kg
[~2018-06-17 13:00] MED LIST changes: -BISA10SU55 RC; -CLON-379 PO; -CRAN425C6 PO; -FINA5TAB PO; -GUAI5SYR2 PO; -LOPE-123 PO; +MIRT7.5T8 PO; -MORP15TA92 PO; +NEPH PO; +RANI150T5 PO
[2018-06-17] MEDS ORDERED: ONDANSETRON 4 MG INJ IV STA (13:06)
[2018-06-17] MEDS ORDERED: morphine 4 MG/ML VIAL IV STA ×2 (13:06→20:34)
[2018-06-17] MEDS ORDERED: FUROSEMIDE 40 MG INJ IV STA (14:58)
[2018-06-17] MEDS ORDERED: ONDANSETRON 4 MG INJ IV PRN (15:00)
[2018-06-17] MEDS ORDERED: ACETAMINOPHEN 325 MG TAB PO PRN (15:00)
--- NOTE | 2018-06-17 15:01 | HP ---
Date/Time of Note Date/Time of Note DATE: 06/17/18 TIME: 14:55 Assessment/Plan VTE Prophylaxis SCD applied (from Nsg): Yes Pharmacological prophylaxis: heparin Lines/Catheters IV Catheter Type (from Nrsg): Saline Lock Assessment/Plan Hospital Course 58 yo male wiht ESRD on HD who presents shortly after recent discharge for viki light CP and shortness of breath. Has pleural effusions on XR. Suspect cardiorenal volume overload causing his symptoms - Requires HD/volume removal to alleviate pleural effusions - Unlikely ACS given pain for days, reproducible pain to palpation ESRD: - HD per Dr Brown Hypertnesion; - Continue home meds Anemia of CKD is stable Dc when euvolemic Result Diagram: 06/17/18 1321 06/17/18 1321 Results 24hrs Laboratory Tests Test 06/17/18 13:21 White Blood Count 4.6 L Red Blood Count 3.22 L Hemoglobin 9.9 L Hematocrit 29.9 L Mean Corpuscular Volume 92.9 Mean Corpuscular Hemoglobin 30.7 Mean Corpuscular Hemoglobin Concent 33.1 Red Cell Distribution Width 14.3 Platelet Count 149 Mean Platelet Volume 8.7 Immature Granulocytes % 0.200 Neutrophils % 68.6 Lymphocytes % 20.2 Monocytes % 5.7 Eosinophils % 4.6 Basophils % 0.7 Nucleated Red Blood Cells % 0.0 Immature Granulocytes # 0.010 Neutrophils # 3.1 Lymphocytes # 0.9 Monocytes # 0.3 Eosinophils # 0.2 Basophils # 0.0 Nucleated Red Blood Cells # 0.0 Sodium Level 133 L Potassium Level 5.3 H Chloride Level 101 Carbon Dioxide Level 25 Anion Gap 7 Blood Urea Nitrogen 13 Creatinine 3.73 H Est Glomerular Filtrat Rate mL/min 17 L Glucose Level 88 Calcium Level 8.3 L Troponin I < 0.012 HPI/ROS Admit Date/Time Admit Date/Time Hx of Present Illness 58 yo male with ESRD on HD, recently discharged after hospitalization for pneumonia returns with chest pressure and shortness of breath Patient discharged 3 days ago after being hosptialized for pneumonia. Has not had HD since leaving. Was due for HD today but given SOB referred to ED. SOB has been present since leaving her. Associated with constant CP. CP present for days without relief. Worse with palpation and worse with deep breathing and movement of thorax. PMH/Family/Social Past Medical History ESRD Medications Current Medications Ondansetron HCl (Zofran Inj) 4 mg ER BRIDGE PRN IV nausea; Start 06/17/18 at 15:00; Stop 06/18/18 at 14:59 Acetaminophen (Tylenol Tab) 650 mg ER BRIDGE PRN PO pain; Start 06/17/18 at 15:00; Stop 06/18/18 at 14:59 Coded Allergies: No Known Allergies (Verified Allergy, Unknown, 04/15/18) Past Surgical History Past Surgical Hx: other Family History Significant Family History: no pertinent family hx Social History Alcohol Use: none Smoking Status: Never smoker Drug Use: none Exam/Review of Systems Vital Signs Vitals Vital Signs Date Temp Pulse Resp B/P (MAP) Pulse Ox O2 O2 Flow FiO2 Time Delivery Rate 06/17/18 60 16 169/80 98 Nasal 2.0 14:26 (109) Cannula 06/17/18 98.8 13:14 Exam Exam Alert oriented Resting comfotably Swollen R eye + JVD + Pain to palpation of thorax Lungs diminished sounds at bases RRR No peripheral edema Constitutional: alert, oriented, well developed Psych: no complaints, nl mood/affect Head: normocephalic, atraumatic Eyes: nl conjunctiva, EOMI, nl lids, nl sclera, PERRL ENMT: nl external ears & nose, nl lips & teeth, nl nasal mucosa & septum Neck: supple, non-tender Respiratory: clear to auscultation, normal air movement Cardiovascular: regular rate and rhythm, nl pulses Gastrointestinal: soft, nl liver, spleen, non-tender Musculoskeletal: nl extremities to inspection Extremities: normal pulses Neurological: 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
--- NOTE | 2018-06-17 15:49 | ERD ---
ER Documentation Chief Complaint Chief Complaint R39 chest pain, non radiating @ [facility], no dialysis done HPI 58-year-old gentleman who presents to the emergency room with chest wall pain. The patient has a history of end-stage renal disease on dialysis Thursday, , Thursday. Just prior to dialysis the patient was complaining of chest pain for at least 8 days. The chest pain is very reproducible without fevers chills cough or significant shortness of breath. During the patient's encounter translation services were utilized Language: Bel[place]ian Source: In person ROS All systems reviewed and are negative except as per history of present illness. Medications Home Meds Reported Medications Multivit/Ca Carb/B Cmplx/Fa* (Chely-Maribel*) 1 Tab Tab, 1 TAB PO DAILY, TAB 06/08/18 Mirtazapine* (Mirtazapine*) 7.5 Mg Tablet, 7.5 MG PO HS, TAB 06/08/18 Ranitidine Hcl* (Ranitidine Hcl*) 150 Mg Tablet, 150 MG PO Q12, #60 TAB 06/08/18 Calcium Carbonate* (Calcium Carbonate*) 600 MG Ca Tab, 600 MG PO DAILY, TAB 06/08/18 Diphenhydramine Hcl* (Benadryl*) 50 Mg Cap, 50 MG PO Q6 PRN for ITCHING, CAP 04/15/18 Nitroglycerin* (Nitrostat*) 0.4 Mg Tab.subl, 0.4 MG SL Q5MIN PRN for CHEST PAIN, BOTTLE 04/15/18 Ondansetron Hcl* (Zofran*) 4 Mg Tablet, 4 MG PO Q6H PRN for NAUSEA AND OR VOMITING, TAB 04/15/18 Docusate Sodium* (Colace*) 100 Mg Capsule, 200 MG PO QHS, #60 CAP 04/15/18 Nifedipine* (Nifedipine ER*) 90 Mg Tablet.sa, 90 MG PO BID, TAB.SA 04/15/18 Pantoprazole* (Protonix*) 40 Mg Tablet.dr, 40 MG PO DAILY, TAB 04/15/18 Glycerin* (Glycerin (Adult)*) 1 Each Supp.rect, 1 EACH [place] DAILY PRN for CONSTIPATION, SUPP.RECT 04/15/18 Sevelamer Hcl* (Renagel*) 800 Mg Tablet, 1600 MG PO WITH MEALS, TAB 04/15/18 Hydralazine Hcl* (Hydralazine Hcl*) 50 Mg Tab, 50 MG PO BID PRN for ELEVATED BLOOD PRESSURE, #60 TAB HOLD FOR SBP<110 OR HR <60 04/15/18 Levothyroxine Sodium* (Levoxyl*) 75 Mcg Tablet, 75 MCG PO BEFORE BREAKFAST, #30 TAB 04/15/18 Tamsulosin Hcl* (Tamsulosin Hcl*) 0.4 Mg Cap.er.24h, 0.4 MG PO HS, CAP 04/15/18 Hydrocodone/Acetaminophen ([place] 5-325 Tablet) 1 Each Tablet, 2 EACH PO Q6 PRN for SEVERE PAIN LEVEL 7-10, TAB 04/15/18 Atropine Sulfate/0.9 %Sod Chlr (Atropine 0.01%-Ns Eye Drops) 10 Ml Drops, 1 DRP RIGHT EYE BID, BOTTLE 04/15/18 Magnesium Citrate* (Magnesium Citrate*) 296 Ml Solution, 296 ML PO ONCE PRN for CONSTIPATION, #1 BOTTLE 04/15/18 Levalbuterol* (Xopenex* HFA) 15 Gm Inha, 2 PUFFS INH Q4H PRN for WHEEZING AND SOB, INHALER 04/15/18 Discontinued Reported Medications Cranberry Extract (Cranberry) 425 Mg Capsule, 425 MG PO BID, CAP 06/08/18 Morphine Sulfate* (Ms Contin*) 15 Mg Tablet.sa, 15 MG PO Q12, TAB 04/15/18 Allergies Allergies: Coded Allergies: No Known Allergies (Verified Allergy, Unknown, 04/15/18) PMhx/Soc History of Surgery: Yes (AVF LEFT ARM ) Anesthesia Reaction: No Hx Neurological Disorder: No Hx Respiratory Disorders: Yes Hx Cardiac Disorders: Yes Hx Psychiatric Problems: No Hx Miscellaneous Medical Probl: Yes (HTN,ESRD on HD (T, TH, SAT),DM,hypothyroidism) Hx Alcohol Use: No Hx Substance Use: No Hx Tobacco Use: No Smoking Status: Never smoker FmHx Family History: No diabetes Physical Exam Vitals Vital Signs Date Temp Pulse Resp B/P (MAP) Pulse Ox O2 O2 Flow FiO2 Time Delivery Rate 06/17/18 58 16 148/79 100 Nasal 2.0 15:30 (102) Cannula 06/17/18 60 16 169/80 98 Nasal 2.0 14:26 (109) Cannula 06/17/18 60 16 162/87 100 Room Air 13:22 (112) 06/17/18 98.8 58 12 148/75 96 13:14 (99) Physical Exam General: Cachectic, emaciated Head: Normocephalic, atraumatic. Eyes: Pupils equally reactive, EOM intact ENT: Dry mucous membranes, reproducible anterior chest wall tenderness Neck: Supple, no lymphadenopathy Respiratory: Lungs clear bilaterally, no distress Cardiovascular: RRR, no murmurs, rubs, or gallops Abdominal: Soft, non-tender, non-distended, no peritoneal signs : Deferred MSK: No edema, no unilateral swelling, 5/5 strength Neurologic: Alert and oriented, moving all extremities, normal speech, no focal weakness, no cerebellar signs Skin: No rash Psych: Normal mood Result Diagram: 06/17/18 1321 06/17/18 1321 Results 24 hrs Laboratory Tests Test 06/17/18 13:21 White Blood Count 4.6 10^3/ul Red Blood Count 3.22 10^6/ul Hemoglobin 9.9 g/dl Hematocrit 29.9 % Mean Corpuscular Volume 92.9 fl Mean Corpuscular Hemoglobin 30.7 pg Mean Corpuscular Hemoglobin Concent 33.1 g/dl Red Cell Distribution Width 14.3 % Platelet Count 149 10^3/UL Mean Platelet Volume 8.7 fl Immature Granulocytes % 0.200 % Neutrophils % 68.6 % Lymphocytes % 20.2 % Monocytes % 5.7 % Eosinophils % 4.6 % Basophils % 0.7 % Nucleated Red Blood Cells % 0.0 /100WBC Immature Granulocytes # 0.010 10^3/ul Neutrophils # 3.1 10^3/ul Lymphocytes # 0.9 10^3/ul Monocytes # 0.3 10^3/ul Eosinophils # 0.2 10^3/ul Basophils # 0.0 10^3/ul Nucleated Red Blood Cells # 0.0 10^3/ul Sodium Level 133 mmol/L Potassium Level 5.3 mmol/L Chloride Level 101 mmol/L Carbon Dioxide Level 25 mmol/L Anion Gap 7 Blood Urea Nitrogen 13 mg/dl Creatinine 3.73 mg/dl Est Glomerular Filtrat Rate mL/min 17 mL/min Glucose Level 88 mg/dl Calcium Level 8.3 mg/dl Troponin I < 0.012 ng/ml Current Medications Medications Dose Sig/Ines Start Time Status Last (Trade) Ordered Route PRN Stop Time Admin Dose Reason Admin Morphine 4 mg ONCE STAT 06/17/18 DC 06/17/18 Sulfate IV 13:06 13:25 (morphine) 06/17/18 13:08 Ondansetron 4 mg ONCE STAT 06/17/18 DC 06/17/18 HCl (Zofran IV 13:06 13:25 Inj) 06/17/18 13:08 Ondansetron 4 mg ER BRIDGE 06/17/18 HCl (Zofran PRN IV 15:00 Inj) nausea 06/18/18 14:59 650 mg ER BRIDGE 06/17/18 Acetaminophen PRN PO pain 15:00 (Tylenol 06/18/18 14:59 Tab) Hydralazine 50 mg BID PRN 06/17/18 HCl PO ELEVATED 15:00 (Apresoline) BLOOD PRESSURE 75 mcg BEFORE 06/18/18 Levothyroxine BREAKFAST 07:00 Sodium PO (Synthroid) Mirtazapine 7.5 mg HS PO 06/17/18 (Remeron) 21:00 Multivit/Ca 1 tab DAILY PO 06/18/18 Carb/ B 09:00 Cmplx/FA/Pren at (Chely-Maribel) Nifedipine 90 mg BID PO 06/17/18 (Procardia 21:00 Xl) 40 mg DAILY@0600 06/18/18 Pantoprazole PO 06:00 (Protonix Tab) Ranitidine 150 mg Q12 PO 06/17/18 HCl 21:00 (Zantac) Sevelamer 1,600 mg WITH MEALS 06/17/18 Carbonate PO 18:00 (Renvela) Tamsulosin 0.4 mg HS PO 06/17/18 HCl 21:00 (Flomax) Furosemide 120 mg ONCE STAT 06/17/18 DC 06/17/18 (Lasix) IV 14:58 15:37 06/17/18 15:03 Epoetin 8,000 units TuThSa@17 06/17/18 UNV Mauricio SC 17:00 (Epogen (Esrd)) Procedures/MDM EKG, MONITORS, & DIAGNOSTIC IMAGING: EKG: I reviewed and interpreted a 12-lead EKG. Rhythm: Normal sinus rhythm ST Changes: No contiguous ST segment elevations T waves: No contiguous T wave inversions Impression: Chest x-ray: I reviewed and interpreted a 1 view of the chest Mediastinum: No enlargement Cardiac silhouette: No cardiomegaly Airspace bilateral pleural effusions Bones: No evidence of fracture LAB INTERPRETATION: * Negative troponin, no significant hyperkalemia MEDICAL DECISION MAKING: The patient presents with chest pain that is very reproducible and likely musculoskeletal. However the patient is at increased risk for cardiopulmonary process such as acute coronary syndrome. No evidence of pulmonary embolism or pneumonia. Consider chest pain related to pleural effusions. Patient will be admitted for further management, dialysis and ACS rule out. ER COURSE: * Aspirin and nitro given prior to arrival. * Pain medication provided CONSULTATION: [None] DISPOSITION PLAN: Telemetry admission for management of chest pain to rule out acute coronary syndrome, serial enzymes, risk stratification and consideration of provocative testing CONSULTATION: Accepting care team and consultations: I discussed the current laboratory data, diagnostic imaging and emergency care provided. Admitting team: Dr. Teixeira Admitting team indication: Insurance directed Departure Diagnosis: Primary Impression: Chest pain Chest pain type: unspecified Qualified Codes: R07.9 - Chest pain, unspecified Additional Impressions: End stage renal disease on dialysis Bilateral pleural effusion Condition: Stable JACOB HUNTER MD Jun 17, 2018 15:49
--- NOTE | 2018-06-17 16:51 | CONS ---
DATE OF ADMISSION: 06/17/2018 DATE OF CONSULTATION: 06/17/2018 TYPE OF CONSULTATION: Nephrology. REASON FOR CONSULTATION: End-stage renal disease. PHYSICIAN REQUESTING CONSULT: Piter Teixeira MD HISTORY OF PRESENT ILLNESS: This is a 58-year-old male with a past medical history of end-stage ivette l disease on dialysis Thursday, , Thursday with access of AV fistula, history of hypertension, BPH, hypothyroidism and diabetes, who presents to [facility] with shortness of lanre ath. The patient was recently admitted to [facility] for pneumonia and shortness o f breath where he was treated with IV antibiotics. The patient was discharged approximately 3 days a go. Since discharge, the patient has not had hemodialysis. The patient came to emergency room with worsening shortness of breath. Upon arrival, the patient had a chest x-ray which showed findings of pleural effusion. In the emergency room, the patient was given IV Lasix and nebulizers as well as ford pplemental oxygen. The patient was also given pain medications. There is no report of any hemoptysi s, hematemesis, hematochezia. PAST MEDICAL HISTORY: As stated above, history of end-stage renal disease, history of hypertension, history of anemia, history of hypothyroidism, diabetes, BPH. PAST SURGICAL HISTORY: Status post left AV fistula. FAMILY HISTORY: No family history of kidney disease. SOCIAL HISTORY: Does not drink, smoke or do drugs. MEDICATIONS: Have been reviewed. REVIEW OF SYSTEMS: A 14-point review of systems was conducted. Pertinent positives stated in HPI, o therwise negative. PHYSICAL EXAMINATION: VITAL SIGNS: Blood pressure is 145/79, pulse 58, respirations 16, temperature 98.8. HEENT: Head is normocephalic. NECK: Supple. HEART: Regular rate. LUNGS: Show diminished breath sounds at base bilaterally. ABDOMEN: Soft, nontender to palpation. No rebound or guarding. EXTREMITIES: Negative for cyanosis or clubbing. Positive edema. DERMATOLOGIC: No rashes. MUSCULOSKELETAL: No joint effusion. NEUROLOGIC: No change in exam. LABORATORY DATA: Show white count 4.6, hemoglobin 9.9, platelet count 149. Sodium 133, potassium 5. 3, BUN 13, creatinine 3.73 and calcium 8.3. IMAGING STUDIES: As stated in HPI. ASSESSMENT AND PLAN: This is a 58-year-old male who presents with: 1. End-stage renal disease. The patient is on dialysis Thursday, and Thursday with access o f the left AV fistula. Plan is for hemodialysis today. We will dialyze for 3 hours of 2k bath, calc ium 2.5. We will ultrafiltrate as tolerated. 2. Hyperkalemia. The patient will be dialyzed on a 2-potassium bath. 3. Hyponatremia. We will dialyze the patient 140-sodium bath. 4. Anemia. Monitor hemoglobin and hematocrit levels. We will give Epogen. 5. Mineral bone disorder. We will monitor calcium and phosphorus levels. The patient will be place d on phosphate binders, vitamin D analogs. Continue Ivette-Maribel. 6. Hypertension in part due to increased intravascular volume. Continue ultrafiltration with hemodi alysis. 7. Volume overload secondary to end-stage renal disease. The patient has noted pleural effusion, lo wer extremity edema. Continue ultrafiltration with hemodialysis until euvolemic. 8. Acute hypoxemic respiratory failure. Etiology is secondary to shortness of breath, possible ____ _ pneumonia. Continue current medical management as stated above. Continue nebulizer, supplemental oxygen. Continue dialysis. Thank you, Dr. Teixeira, for this interesting consult. It will be a pleasure to follow the patient wi th you throughout the hospital course. Dictated By: NAE SINHA/NTS Conf#: [id number] DID#: [id number] CC: JACOB HUNTER MD;*EndCC*
[2018-06-17] MEDS ORDERED: EPOETIN 4000 UNITS/1 ML INJ (ESRD) SC SCH (17:00)
--- NOTE | 2018-06-17 20:01 | NUR ---
dialysis called and confirmed number [id number],
[2018-06-17] MEDS: MIRTAZAPINE 15 MG TAB PO SCH (20:14)
[2018-06-17] MEDS: TAMSULOSIN (SR) 0.4 MG CAP PO SCH (20:14)
[2018-06-17] MEDS: RANITIDINE 150 MG TAB PO SCH (20:14)
[2018-06-17] MEDS: SEVELAMER CARBONATE 800 MG TABLET PO SCH (20:15)
[2018-06-17] MEDS: NIFEdipine (XL) 90 MG TAB PO SCH (20:15)
[2018-06-18] VITALS (14 sets, daily range): BP systolic 110–188; BP diastolic 54–90; PULSE 53–65; RESP 16–19
[2018-06-18] MEDS: LEVOTHYROXINE 75 MCG TAB PO SCH (06:08)
[2018-06-18] MEDS: PANTOPRAZOLE (EC) 40 MG TAB PO SCH (06:08)
--- NOTE | 2018-06-18 06:37 | NUR ---
end of shift note: received pt from ER around 1944, came in for CP, missed dialysis, pt still c/o of mild chest pain, dr. Dangelo notified, morphine 1mg ordered and given, pain is controlled, pt post dialysis last night with 2L out, BP is more stable after dialysis in 140s, pt alert oriented x3, unable to ambulate, pt owned wheelchair at bedside, continue to monitor pt
[2018-06-18] MEDS: SEVELAMER CARBONATE 800 MG TABLET PO SCH ×3 (08:09→17:54)
[2018-06-18] MEDS: RANITIDINE 150 MG TAB PO SCH (08:10)
[2018-06-18] MEDS: NIFEdipine (XL) 90 MG TAB PO SCH ×2 (08:10→21:20)
[2018-06-18] MEDS: MULTIVIT/CA CARB/B CMPLX/FA TAB PO SCH (08:10)
--- NOTE | 2018-06-18 08:53 | PN ---
DATE: 06/18/2018 SUBJECTIVE: The patient had hemodialysis yesterday, tolerated well. OBJECTIVE: VITAL SIGNS: Blood pressure is 180/90, respirations 18, pulse 65, temperature 98.0. HEENT: Head is normocephalic. NECK: Supple. HEART: Regular rate. LUNGS: Show diminished breath sounds at the base. ABDOMEN: Soft, nontender to palpation without rebound or guarding. EXTREMITIES: Negative for clubbing, cyanosis, no edema. DERMATOLOGIC: No rashes. MUSCULOSKELETAL: No joint effusions. NEUROLOGIC: No change in exam. MEDICATIONS: Reviewed. LABORATORY DATA: Reviewed. ASSESSMENT AND PLAN: 1. End-stage renal disease. The patient had hemodialysis yesterday, tolerated well. Plan is for di alysis tomorrow. 2. Hyperkalemia, improved. Continue dialysis on low potassium bath. 3. Hypernatremia. Continue dialysis on 140 sodium bath. 4. Anemia. Monitor hemoglobin and hematocrit levels. Continue Epogen as needed. 5. Mineral bone disorder. Continue to monitor calcium and phosphorus levels. Continue phosphate bi nders and vitamin D analogs. 6. Hypertension. Blood pressure remains elevated. Continue ultrafiltration dialysis. Continue cur rent blood pressure regimen, adjust as needed. 7. Volume overload secondary to end-stage renal disease, improving. Continue ultrafiltration dialys is. 8. Acute hypoxemic respiratory failure secondary to recent pneumonia, volume overload. Continue med ical management as stated above. Dictated By: NAE MENDOZA DO NR/NTS Conf#: [id number] DID#: [id number] CC: JOHN FARRAR MD;*EndCC*
--- NOTE | 2018-06-18 11:25 | PN ---
Date/Time of Note Date/Time of Note DATE: 06/18/18 TIME: 11:21 Assessment/Plan VTE Prophylaxis Risk score (from Nsg)>0 risk: 6 SCD applied (from Nsg): Yes Pharmacological prophylaxis: heparin Lines/Catheters IV Catheter Type (from Nrs): Saline Lock Assessment/Plan Hospital Course SUBJECTIVE: Lying in bed, no acute discomfort. OBJECTIVE: Vital signs-see below PHYSICAL EXAM: Constitutional: Well-developed, adequately built, lying in bed comfortably. Psych: nl mood/affect, no complaints Head: atraumatic, normocephalic Eyes: +[place] eye,crusts. ENMT: mucosa pink and moist, nl external ears & nose Neck: non-tender, supple Respiratory: clear to auscultation, normal air movement Cardiovascular: nl pulses, regular rate and rhythm Gastrointestinal: non-tender, soft, bowel sounds active in all 4 quadrants. Musculoskeletal/extremities: nl extremities to inspection, motor strength equal bilaterally, no focal deficit. Normal pulses,no cyanosis, no edema. Neurological: Alert oriented 3,nl speech, nl strength Skin: nl turgor ASSESSMENT/PLAN:58 yo male wiht ESRD on HD who presents shortly after recent discharge for pneuomina wiht CP and shortness of breath. 1. Hypoxemic respiratory failure secondary to volume overload/pleural effusions with ESRD -Symptoms improved. -Continue ultrafiltration. -PRN bronchodilators. 2.ESRD: - HD per Dr Brown 3.Hypertnesion; - Continue home meds 4.Anemia of CKD - stable 5. Conjunctivitis -Start moxifloxacin ophthalmic drops times 5 days. 6. Hypothyroidism -On Synthroid 7. BPH -On Flomax DVT prophylaxis: Heparin PUD prophylaxis: Not indicated Dispo: Continue dialysis. Dc when euvolemic Patient was seen in collaboration with . Result Diagram: 06/18/18 0625 06/18/18 0625 Results 24hrs Laboratory Tests Test 06/17/18 13:21 06/17/18 20:28 06/17/18 20:30 06/18/18 01:15 White Blood Count 4.6 L Red Blood Count 3.22 L Hemoglobin 9.9 L Hematocrit 29.9 L Mean Corpuscular 92.9 Volume Mean Corpuscular 30.7 Hemoglobin Mean Corpuscular 33.1 Hemoglobin Concent Red Cell 14.3 Distribution Width Platelet Count 149 Mean Platelet Volume 8.7 Immature 0.200 Granulocytes % Neutrophils % 68.6 Lymphocytes % 20.2 Monocytes % 5.7 Eosinophils % 4.6 Basophils % 0.7 Nucleated Red Blood 0.0 Cells % Immature 0.010 Granulocytes # Neutrophils # 3.1 Lymphocytes # 0.9 Monocytes # 0.3 Eosinophils # 0.2 Basophils # 0.0 Nucleated Red Blood 0.0 Cells # Sodium Level 133 L Potassium Level 5.3 H Chloride Level 101 Carbon Dioxide Level 25 Anion Gap 7 Blood Urea Nitrogen 13 Creatinine 3.73 H Est Glomerular 17 L Filtrat Rate mL/min Glucose Level 88 Calcium Level 8.3 L Troponin I < 0.012 < 0.012 < 0.012 Hepatitis B Surface NEGATIVE Antigen Bedside Glucose 74 Creatine Kinase 24 23 Creatine Kinase 4.1 5.8 Index Creatinine Kinase MB 0.99 1.34 (Mass) Test 06/18/18 06:25 White Blood Count 3.6 #L Red Blood Count 3.63 L Hemoglobin 11.1 L Hematocrit 33.4 L Mean Corpuscular 92.0 Volume Mean Corpuscular 30.6 Hemoglobin Mean Corpuscular 33.2 Hemoglobin Concent Red Cell 14.6 H Distribution Width Platelet Count 124 L Mean Platelet Volume 9.6 Immature 0.300 Granulocytes % Neutrophils % 63.6 Lymphocytes % 22.9 Monocytes % 7.4 Eosinophils % 5.0 Basophils % 0.8 Nucleated Red Blood 0.0 Cells % Immature 0.010 Granulocytes # Neutrophils # 2.3 Lymphocytes # 0.8 Monocytes # 0.3 Eosinophils # 0.2 Basophils # 0.0 Nucleated Red Blood 0.0 Cells # Sodium Level 139 Potassium Level 4.5 Chloride Level 100 Carbon Dioxide Level 30 Anion Gap 9 Blood Urea Nitrogen 8 Creatinine 2.59 #H Est Glomerular 26 L Filtrat Rate mL/min Glucose Level 77 Calcium Level 8.2 L Phosphorus Level 2.8 Magnesium Level 2.1 Exam/Review of Systems Exam Vitals Vital Signs Date Temp Pulse Resp B/P (MAP) Pulse Ox O2 O2 Flow FiO2 Time Delivery Rate 06/18/18 57 08:39 06/18/18 Nasal 2.0 08:12 Cannula 06/18/18 98.0 18 188/90 100 07:30 (122) Intake and Output 06/17/18 06/17/18 06/18/18 1515:00 23:00 07:00 IntakeIntake Total 300 ml OutputOutput Total 2400 ml BalanceBalance -2100 ml Results Results 24hrs Laboratory Tests Test 06/17/18 13:21 06/17/18 20:28 06/17/18 20:30 06/18/18 01:15 White Blood Count 4.6 L Red Blood Count 3.22 L Hemoglobin 9.9 L Hematocrit 29.9 L Mean Corpuscular 92.9 Volume Mean Corpuscular 30.7 Hemoglobin Mean Corpuscular 33.1 Hemoglobin Concent Red Cell 14.3 Distribution Width Platelet Count 149 Mean Platelet Volume 8.7 Immature 0.200 Granulocytes % Neutrophils % 68.6 Lymphocytes % 20.2 Monocytes % 5.7 Eosinophils % 4.6 Basophils % 0.7 Nucleated Red Blood 0.0 Cells % Immature 0.010 Granulocytes # Neutrophils # 3.1 Lymphocytes # 0.9 Monocytes # 0.3 Eosinophils # 0.2 Basophils # 0.0 Nucleated Red Blood 0.0 Cells # Sodium Level 133 L Potassium Level 5.3 H Chloride Level 101 Carbon Dioxide Level 25 Anion Gap 7 Blood Urea Nitrogen 13 Creatinine 3.73 H Est Glomerular 17 L Filtrat Rate mL/min Glucose Level 88 Calcium Level 8.3 L Troponin I < 0.012 < 0.012 < 0.012 Hepatitis B Surface NEGATIVE Antigen Bedside Glucose 74 Creatine Kinase 24 23 Creatine Kinase 4.1 5.8 Index Creatinine Kinase MB 0.99 1.34 (Mass) Test 06/18/18 06:25 White Blood Count 3.6 #L Red Blood Count 3.63 L Hemoglobin 11.1 L Hematocrit 33.4 L Mean Corpuscular 92.0 Volume Mean Corpuscular 30.6 Hemoglobin Mean Corpuscular 33.2 Hemoglobin Concent Red Cell 14.6 H Distribution Width Platelet Count 124 L Mean Platelet Volume 9.6 Immature 0.300 Granulocytes % Neutrophils % 63.6 Lymphocytes % 22.9 Monocytes % 7.4 Eosinophils % 5.0 Basophils % 0.8 Nucleated Red Blood 0.0 Cells % Immature 0.010 Granulocytes # Neutrophils # 2.3 Lymphocytes # 0.8 Monocytes # 0.3 Eosinophils # 0.2 Basophils # 0.0 Nucleated Red Blood 0.0 Cells # Sodium Level 139 Potassium Level 4.5 Chloride Level 100 Carbon Dioxide Level 30 Anion Gap 9 Blood Urea Nitrogen 8 Creatinine 2.59 #H Est Glomerular 26 L Filtrat Rate mL/min Glucose Level 77 Calcium Level 8.2 L Phosphorus Level 2.8 Magnesium Level 2.1 IGNACIO WONG NP Jun 18, 2018 11:25
[2018-06-18] MEDS: MOXIFLOXACIN 0.5% 3 ML OPH BOTH EYES SCH ×2 (12:20→21:20)
--- NOTE | 2018-06-18 13:48 | NUR ---
patient was noted with loose stool 2x complaining of headache, chest pain and nausea, notified Salome STEWART. Addendum: 06/18/18 at 1349 by CAMERON ALANIS RN patient refusing to take tylenol, notified Salome.
--- NOTE | 2018-06-18 14:36 | NUR ---
for HD 06/19/18, spoke to Sheryl mccloud [facility] with confirmation #[id number].
[2018-06-18] MEDS ORDERED: morphine 4 MG/ML VIAL IV STA (20:38)
[2018-06-18] MEDS: MIRTAZAPINE 15 MG TAB PO SCH (21:20)
[2018-06-18] MEDS: TAMSULOSIN (SR) 0.4 MG CAP PO SCH (21:20)
[2018-06-18] MEDS: HEPARIN 5,000 UNIT/1 ML VIAL SC SCH (21:38)
[2018-06-19] VITALS (25 sets, daily range): BP systolic 96–136; BP diastolic 54–70; PULSE 51–68; RESP 16–22
[2018-06-19] MEDS: PANTOPRAZOLE (EC) 40 MG TAB PO SCH (06:00)
[2018-06-19] MEDS: LEVOTHYROXINE 75 MCG TAB PO SCH (06:00)
--- NOTE | 2018-06-19 06:20 | NUR ---
end of shift note: pt stable overnight, vital signs maintain WNL, c/o one time of generalized pain, MD notified, IV morphine PRN one time ordered, pt pain controlled, pt no longer having diarrhea, no bowel movement last night, unable to collect specimen for c-diff, pt alert oriented x4, able to move and stand on feet, unable to ambulate, wheelchair at bedside, scheduled for dialysis today.
--- NOTE | 2018-06-19 08:34 | PN ---
DATE: 06/19/2018 SUBJECTIVE: The patient is stable, no events overnight. No shortness of breath. OBJECTIVE: VITAL SIGNS: Blood pressure is 123/58, pulse 54, respirations 22, temperature 97.0. HEENT: Head is normocephalic. NECK: Supple. HEART: Regular rate. LUNGS: Show diminished breath sounds at the base. ABDOMEN: Soft, nontender to palpation without rebound or guarding. EXTREMITIES: Negative for clubbing, cyanosis, no edema. DERMATOLOGIC: No rashes. MUSCULOSKELETAL: No joint effusion. NEUROLOGIC: No change in exam. MEDICATIONS: Reviewed. LABORATORY DATA: Shows sodium 136, potassium 5.3, BUN 12, creatinine 3.52. White count 3.6, hemoglo bin 9.8, platelet count is 142. ASSESSMENT AND PLAN: 1. End-stage renal disease. The patient had hemodialysis yesterday, tolerated well. Plan is for di alysis today. 2. Hyperkalemia. Continue dialysis on low potassium bath. 3. Hypernatremia. Continue dialysis on 140 sodium bath. 4. Anemia. Continue to monitor hemoglobin and hematocrit levels. Continue Epogen. 5. Mineral bone disorder. Monitor calcium and phosphorus levels. Continue phosphate binders and vi tamin D analogs. 6. Hypertension. The patient's blood pressures are improving. Continue medical management. Contin ue ultrafiltration dialysis. 7. Volume overload secondary to end-stage renal disease. Continue ultrafiltration hemodialysis. 8. Acute hypoxemic respiratory failure, improving. Continue medical management. Dictated By: NAE MENDOZA DO NR/NTS Conf#: [id number] DID#: [id number] CC: JOHN FARRAR MD;*EndCC*
[2018-06-19] MEDS: MULTIVIT/CA CARB/B CMPLX/FA TAB PO SCH (08:39)
[2018-06-19] MEDS: SEVELAMER CARBONATE 800 MG TABLET PO SCH ×4 (08:39→20:39)
[2018-06-19] MEDS: MOXIFLOXACIN 0.5% 3 ML OPH BOTH EYES SCH ×4 (08:40→20:38)
[2018-06-19] MEDS: NIFEdipine (XL) 90 MG TAB PO SCH ×2 (08:40→20:40)
[2018-06-19] MEDS: HEPARIN 5,000 UNIT/1 ML VIAL SC SCH ×2 (08:57→20:47)
[2018-06-19] MEDS ORDERED: HYDROCODONE/APAP (5/325) TAB PO PRN (10:00)
[2018-06-19] MEDS ORDERED: ALBUMIN HUMAN 25% 100 ML IV PRN (10:30)
[2018-06-19] MEDS: IBUPROFEN 400 MG TAB PO SCH ×4 (10:30→22:30)
[2018-06-19] MEDS ORDERED: IBUPROFEN 400 MG TAB PO PRN (10:30)
--- NOTE | 2018-06-19 10:30 | PN ---
Date/Time of Note Date/Time of Note DATE: 06/19/18 TIME: 10:28 Assessment/Plan VTE Prophylaxis Risk score (from Nsg)>0 risk: 4 SCD applied (from Nsg): Yes Pharmacological prophylaxis: heparin Lines/Catheters IV Catheter Type (from Nrs): Saline Lock Assessment/Plan Hospital Course SUBJECTIVE: No acute discomfort. OBJECTIVE: Vital signs-see below PHYSICAL EXAM: Constitutional: Well-developed, adequately built, lying in bed comfortably. Psych: nl mood/affect, no complaints Head: atraumatic, normocephalic Eyes: +[place] eye,crusts. ENMT: mucosa pink and moist, nl external ears & nose Neck: non-tender, supple Respiratory: clear to auscultation, normal air movement Cardiovascular: nl pulses, regular rate and rhythm Gastrointestinal: non-tender, soft, bowel sounds active in all 4 quadrants. Musculoskeletal/extremities: nl extremities to inspection, motor strength equal bilaterally, no focal deficit. Normal pulses,no cyanosis, no edema. Neurological: Alert oriented 3,nl speech, nl strength Skin: nl turgor ASSESSMENT/PLAN:58 yo male wiht ESRD on HD who presents shortly after recent discharge for pneuomina wiht CP and shortness of breath. 1. Hypoxemic respiratory failure secondary to volume overload/pleural effusions with ESRD -Resolved -Continue ultrafiltration. -PRN bronchodilators. 2.ESRD: - HD per Dr Brown 3. Chest pain,reproducible with costochondritis -PRN NSAIDs -Ruled out for ACS 4.Hypertension; - Continue home meds 5.Anemia of CKD - stable 6. Conjunctivitis -Start moxifloxacin ophthalmic drops times 5 days. 7. Hypothyroidism -On Synthroid 8. BPH -On Flomax DVT prophylaxis: Heparin PUD prophylaxis: Not indicated Dispo: Continue dialysis. DC planning likely in a.m. Patient was seen in collaboration with Result Diagram: 06/19/18 0549 06/19/18 0548 Results 24hrs Laboratory Tests Test 06/19/18 05:48 06/19/18 05:49 Sodium Level 137 Potassium Level 5.3 H Chloride Level 100 Carbon Dioxide Level 30 Anion Gap 7 Blood Urea Nitrogen 12 Creatinine 3.52 H Est Glomerular Filtrat Rate mL/min 18 L Glucose Level 90 Calcium Level 8.3 L White Blood Count 3.6 L Red Blood Count 3.27 L Hemoglobin 9.8 L Hematocrit 30.5 L Mean Corpuscular Volume 93.3 Mean Corpuscular Hemoglobin 30.0 Mean Corpuscular Hemoglobin Concent 32.1 Red Cell Distribution Width 15.1 H Platelet Count 142 Mean Platelet Volume 9.6 Immature Granulocytes % 0.300 Neutrophils % 58.9 Lymphocytes % 28.7 Monocytes % 6.9 Eosinophils % 4.4 Basophils % 0.8 Nucleated Red Blood Cells % 0.0 Immature Granulocytes # 0.010 Neutrophils # 2.1 Lymphocytes # 1.0 Monocytes # 0.3 Eosinophils # 0.2 Basophils # 0.0 Nucleated Red Blood Cells # 0.0 Exam/Review of Systems Exam Vitals Vital Signs Date Temp Pulse Resp B/P (MAP) Pulse Ox O2 O2 Flow FiO2 Time Delivery Rate 06/19/18 51 08:05 06/19/18 97.0 22 123/58 97 Nasal 2.0 07:38 (79) Cannula Intake and Output 06/18/18 06/18/18 06/19/18 1515:00 23:00 07:00 IntakeIntake Total 900 ml 240 ml BalanceBalance 900 ml 240 ml Results Results 24hrs Laboratory Tests Test 06/19/18 05:48 06/19/18 05:49 Sodium Level 137 Potassium Level 5.3 H Chloride Level 100 Carbon Dioxide Level 30 Anion Gap 7 Blood Urea Nitrogen 12 Creatinine 3.52 H Est Glomerular Filtrat Rate mL/min 18 L Glucose Level 90 Calcium Level 8.3 L White Blood Count 3.6 L Red Blood Count 3.27 L Hemoglobin 9.8 L Hematocrit 30.5 L Mean Corpuscular Volume 93.3 Mean Corpuscular Hemoglobin 30.0 Mean Corpuscular Hemoglobin Concent 32.1 Red Cell Distribution Width 15.1 H Platelet Count 142 Mean Platelet Volume 9.6 Immature Granulocytes % 0.300 Neutrophils % 58.9 Lymphocytes % 28.7 Monocytes % 6.9 Eosinophils % 4.4 Basophils % 0.8 Nucleated Red Blood Cells % 0.0 Immature Granulocytes # 0.010 Neutrophils # 2.1 Lymphocytes # 1.0 Monocytes # 0.3 Eosinophils # 0.2 Basophils # 0.0 Nucleated Red Blood Cells # 0.0 Medications Medication Current Medications Hydralazine HCl (Apresoline) 50 mg BID PRN PO ELEVATED BLOOD PRESSURE; Start 06/17/18 at 15:00 Levothyroxine Sodium (Synthroid) 75 mcg BEFORE BREAKFAST PO Last administered on 06/19/18 06:00; Admin Dose 75 MCG; Start 06/18/18 at 07:00 Mirtazapine (Remeron) 7.5 mg HS PO Last administered on 06/18/18 21:20; Admin Dose 7.5 MG; Start 06/17/18 at 21:00 Multivit/Ca Carb/ B Cmplx/FA/Prenat (Chely-Maribel) 1 tab DAILY PO Last admin istered on 06/19/18 08:39; Admin Dose 1 TAB; Start 06/18/18 at 09:00 Nifedipine (Procardia Xl) 90 mg BID PO Last administered on 06/19/18 08:40; Admin Dose 90 MG; Start 06/17/18 at 21:00 Pantoprazole (Protonix Tab) 40 mg DAILY@0600 PO Last administered on 06/19/18 06:00; Admin Dose 40 MG; Start 06/18/18 at 06:00 Sevelamer Carbonate (Renvela) 1,600 mg WITH MEALS PO Last administered on 06/19/18 08:39; Admin Dose 1,600 MG; Start 06/17/18 at 18:00 Tamsulosin HCl (Flomax) 0.4 mg HS PO Last administered on 06/18/18 21:20; Admin Dose 0.4 MG; Start 06/17/18 at 21:00 Epoetin Mauricio (Epogen (Esrd)) 8,000 units TuThSa@17 SC Last administered on 06/18/18 01:39; Admin Dose 8,000 UNITS; Start 06/17/18 at 17:00; Status Hold Moxifloxacin HCl (Vigamox) 1 drop TID BOTH EYES Last administered on 06/19/18 08:40; Admin Dose 1 DROP; Start 06/18/18 at 13:00; Stop 06/23/18 at 12:59 Heparin Sodium (Porcine) (Heparin (5000 Units/1ml)) 5,000 unit BID SC Last administered on 06/19/18 08:57; Admin Dose 5,000 UNIT; Start 06/18/18 at 21:00 Acetaminophen/ Hydrocodone Bitart (Brent (5/325)) 1 tab Q6H PRN PO MODERATE PAIN LEVEL 4-6; Start 06/19/18 at 10:00 Albumin Human 100 ml @ 100 mls/hr DURING DIALYSIS PRN IV BLOOD PRESSURE SUPPORT; Start 06/19/18 at 10:30 IGNACIO WONG NP Jun 19, 2018 10:30
--- NOTE | 2018-06-19 12:10 | NUR ---
Patient still on HD-will give meds late.
--- NOTE | 2018-06-19 18:55 | NUR ---
EOSS: Patient with HD today, took out 1 Liter. Patient A/A/O make needs known, SR on monitor. Encourage patient to reposition while in bed. Medicated for pain as needed. All needs attended. Will continue to monitor.
[2018-06-19] MEDS: TAMSULOSIN (SR) 0.4 MG CAP PO SCH (20:39)
[2018-06-19] MEDS: MIRTAZAPINE 15 MG TAB PO SCH (20:39)
[2018-06-20] VITALS (12 sets, daily range): BP systolic 110–170; BP diastolic 62–84; PULSE 52–67; RESP 17–18
[2018-06-20] MEDS: IBUPROFEN 400 MG TAB PO SCH ×3 (04:30→16:30)
[2018-06-20] MEDS: PANTOPRAZOLE (EC) 40 MG TAB PO SCH (06:38)
[2018-06-20] MEDS: LEVOTHYROXINE 75 MCG TAB PO SCH (06:39)
[2018-06-20] MEDS: MULTIVIT/CA CARB/B CMPLX/FA TAB PO SCH (08:46)
[2018-06-20] MEDS: MOXIFLOXACIN 0.5% 3 ML OPH BOTH EYES SCH ×3 (08:46→20:15)
[2018-06-20] MEDS: NIFEdipine (XL) 90 MG TAB PO SCH ×2 (08:46→20:16)
[2018-06-20] MEDS: SEVELAMER CARBONATE 800 MG TABLET PO SCH ×3 (08:48→17:55)
[2018-06-20] MEDS: HEPARIN 5,000 UNIT/1 ML VIAL SC SCH ×2 (09:14→20:18)
--- NOTE | 2018-06-20 09:55 | DS ---
Date/Time of Note Date/Time of Note DATE: 06/20/18 TIME: 09:53 Discharge Summary Admission/Discharge Info Admit Date/Time Jun 19, 2018 at 15:13 Discharge Date/Time Discharge Diagnosis 1. Hypoxemic respiratory failure secondary to volume overload/pleural effusions with ESRD-Resolved 2.ESRD: 3. Chest pain,reproducible,likely costochondritis-resolved 4.Hypertension; 5.Anemia of CKD 6. s/pConjunctivitis 7. Hypothyroidism 8. BPH Patient Condition: Stable Consults Dr. Brown, nephrology Procedures 06/17/2018. Chest x-ray. IMPRESSION: 1. Larger bilateral pleural effusions. 2. No other change from the 06/11/2018 chest radiograph. Hospital Course 58 yo longterm resident male with ESRD on HD who presents shortly after recent discharge for pneuomina with CP and shortness of breath, found to have hypoxemic respiratory failure secondary to volume overload/pleural effusion with ESRD. Patient is continue ultrafiltration for volume overload secondary to ESRD Respiratory status remained stable with no need for supplemental oxygen. Patient was being followed by yard hostler. He was ruled out for acute coronary syndrome with serial troponin and EKG. Patient states pain is reproducible and most likely costochondritis responded to Motrin. He was continued on home medication for underlying comorbidities. Patient was also treated for gingivitis in the hospital. At this time, he is feeling back to his baseline. Labs and vital signs stable. Patient is medically stable for discharge back to the longterm with outpatient follow-up and hemodialysis center. Approximately 60 m spent on coordinating the discharge on this patient. Patient was [facility] in [facility] with . . Home Meds Reported Medications Multivit/Ca Carb/B Cmplx/Fa* (Chely-Maribel*) 1 Tab Tab, 1 TAB PO DAILY, TAB 06/08/18 Mirtazapine* (Mirtazapine*) 7.5 Mg Tablet, 7.5 MG PO HS, TAB 06/08/18 Ranitidine Hcl* (Ranitidine Hcl*) 150 Mg Tablet, 150 MG PO Q12, #60 TAB 06/08/18 Calcium Carbonate* (Calcium Carbonate*) 600 MG Ca Tab, 600 MG PO DAILY, TAB 06/08/18 Diphenhydramine Hcl* (Benadryl*) 50 Mg Cap, 50 MG PO Q6 PRN for ITCHING, CAP 04/15/18 Nitroglycerin* (Nitrostat*) 0.4 Mg Tab.subl, 0.4 MG SL Q5MIN PRN for CHEST PAIN, BOTTLE 04/15/18 Ondansetron Hcl* (Zofran*) 4 Mg Tablet, 4 MG PO Q6H PRN for NAUSEA AND OR VOMITING, TAB 04/15/18 Docusate Sodium* (Colace*) 100 Mg Capsule, 200 MG PO QHS, #60 CAP 04/15/18 Nifedipine* (Nifedipine ER*) 90 Mg Tablet.sa, 90 MG PO BID, TAB.SA 04/15/18 Pantoprazole* (Protonix*) 40 Mg Tablet.dr, 40 MG PO DAILY, TAB 04/15/18 Glycerin* (Glycerin (Adult)*) 1 Each Supp.rect, 1 EACH KS DAILY PRN for CONSTIPATION, SUPP.RECT 04/15/18 Sevelamer Hcl* (Renagel*) 800 Mg Tablet, 1600 MG PO WITH MEALS, TAB 04/15/18 Hydralazine Hcl* (Hydralazine Hcl*) 50 Mg Tab, 50 MG PO BID PRN for ELEVATED BLOOD PRESSURE, #60 TAB HOLD FOR SBP<110 OR HR <60 04/15/18 Levothyroxine Sodium* (Levoxyl*) 75 Mcg Tablet, 75 MCG PO BEFORE BREAKFAST, #30 TAB 04/15/18 Tamsulosin Hcl* (Tamsulosin Hcl*) 0.4 Mg Cap.er.24h, 0.4 MG PO HS, CAP 04/15/18 Hydrocodone/Acetaminophen (Norris 5-325 Tablet) 1 Each Tablet, 2 EACH PO Q6 PRN for SEVERE PAIN LEVEL 7-10, TAB 04/15/18 Atropine Sulfate/0.9 %Sod Chlr (Atropine 0.01%-Ns Eye Drops) 10 Ml Drops, 1 DRP RIGHT EYE BID, BOTTLE 04/15/18 Magnesium Citrate* (Magnesium Citrate*) 296 Ml Solution, 296 ML PO ONCE PRN for CONSTIPATION, #1 BOTTLE 04/15/18 Levalbuterol* (Xopenex* HFA) 15 Gm Inha, 2 PUFFS INH Q4H PRN for WHEEZING AND SOB, INHALER 04/15/18 Discontinued Reported Medications Cranberry Extract (Cranberry) 425 Mg Capsule, 425 MG PO BID, CAP 06/08/18 Morphine Sulfate* (Ms Contin*) 15 Mg Tablet.sa, 15 MG PO Q12, TAB 04/15/18 Follow-up Plan Discharge to halfway facility. Patient/snf to follow-up with hemodialysis service providers. Primary Care Provider Barbara Julio MD Pending Labs Laboratory Tests Test 06/20/18 00:30 06/20/18 06:34 Bedside Glucose 126 mg/dL (70-220) Sodium Level 138 mmol/L (135-144) Potassium Level 4.4 mmol/L (3.5-5.1) Chloride Level 97 mmol/L (97-110) Carbon Dioxide Level 31 mmol/L (21-31) Anion Gap 10 (5-13) Blood Urea Nitrogen 6 mg/dl (7-20) Creatinine 2.58 mg/dl (0.61-1.24) Est Glomerular Filtrat Rate mL/min 26 mL/min (>60) Glucose Level 80 mg/dl (70-220) Calcium Level 8.2 mg/dl (8.4-10.2) IGNACIO WONG V. CHIEF OF FIELD OPERATIONS Jun 20, 2018 09:55
--- NOTE | 2018-06-20 10:24 | PDOCDIS ---
Discharge Instructions DIAGNOSIS Discharge Diagnosis 1. Hypoxemic respiratory failure secondary to volume overload/pleural effusions with ESRD-Resolved 2.ESRD: 3. Chest pain,reproducible,likely costochondritis-resolved 4.Hypertension; 5.Anemia of CKD 6. s/pConjunctivitis 7. Hypothyroidism 8. BPH CONDITION [id number] Patient Condition: [id number] Stable HOME CARE INSTRUCTIONS: [id number] Your diet recommendation is: [id number] Renal diet FOLLOW UP/APPOINTMENTS Follow-up Plan [facility]charge back to detention facility. Follow-up with primary care physician, hemodialysis clinic and group fitness manager after discharge. IGNACIO WONG NP Jun 20, 2018 10:24
--- NOTE | 2018-06-20 11:58 | PN ---
DATE: 06/20/2018 SUBJECTIVE: The patient is stable. No events overnight. OBJECTIVE: VITAL SIGNS: Blood pressure is 115/62, pulse 57, respirations 18, temperature 97.9. HEENT: Head is normocephalic. NECK: Supple. HEART: Regular rate. LUNGS: Show diminished breath sounds at the base. ABDOMEN: Soft, nontender to palpation without rebound or guarding. EXTREMITIES: Negative for clubbing, cyanosis, no edema. DERMATOLOGIC: No rashes. MUSCULOSKELETAL: No joint effusion. NEUROLOGIC: No change in exam. MEDICATIONS: Reviewed. LABORATORY DATA: From 06/20/2018 was reviewed. ASSESSMENT AND PLAN: 1. End-stage renal disease. The patient had hemodialysis yesterday, tolerated well. Plan for dialy sis again tomorrow. 2. Hypokalemia. Continue dialysis on a low potassium bath. 3. Hypernatremia, improved. Continue dialysis on a 140 sodium bath. 4. Anemia. Monitor H and H levels. Continue Epogen. 5. Mineral bone disorder. Monitor calcium and phosphorus levels. Continue phos binders, vitamin D analogs. 6. Hypertension. Continue blood pressure regimen. Continue ultrafiltration dialysis. 7. Volume overload, improving. Continue dialysis. 8. Acute hypoxic respiratory failure, improving. Continue medical management. Dictated By: NAE SINHA/NTS Conf#: [id number] DID#: [id number] CC: JOHN FARRAR MD;*EndCC*
[2018-06-20] MEDS ORDERED: ONDANSETRON 4 MG INJ IV PRN (12:30)
--- NOTE | 2018-06-20 13:56 | NUR ---
Pt to return to SNF today [facility]. Pt has a bed there and he is on Dialysis T TH Sat and will return to same schedule upon return to SNF. Ambulunz to cotton picking machine operator at 15:30 Trip # [id number] RN informed.
--- NOTE | 2018-06-20 14:00 | NUR ---
Per Dr. Brown, may go back to SNF, can continue hemodialysis days on Thu, , Thu. CM made aware.
--- NOTE | 2018-06-20 15:50 | NUR ---
Report given to RICARDO Pritchett from [facility] to continue care for patient.
[2018-06-20] MEDS ORDERED: LORAZEPAM 2 MG INJ IV ONE (17:00)
[2018-06-20] MEDS ORDERED: HYDROmorphONE 0.5 MG/0.5 ML SYG IV STA (18:01)
--- NOTE | 2018-06-20 19:30 | NUR ---
EOSS: Endorsed to night nurse, re: patient D/C to SNF tonight. Patient with elevated BP prior to D/C SNF 165 and above, medications for Blood pressure given as ordered as well as pain medication. Charge Nurse made aware that BP is still elevated, still 150's after all meds given. Per Dr. Andrews if SBP is greater than 170, hold D/C tonight. Report given to Yarely at the facility, Patient with with own wheelchair in the room. All D/C papers in the chart. Ambulanz called patient to moss picker at 2030.
[2018-06-20] MEDS: TAMSULOSIN (SR) 0.4 MG CAP PO SCH (20:15)
[2018-06-20] MEDS: MIRTAZAPINE 15 MG TAB PO SCH (20:16)
--- NOTE | 2018-06-20 22:22 | NUR ---
2128 Pt was reassessed post pain medication administration and blood pressure medication, pt stated pain relief and blood pressure was 158/73 with heart rate of 61 and O2 saturation 99% on 2 l O2 per NC, pt was discharged at this time to [facility], report was given to the medics.
== END 2018-06-20 21:23 | DRG 640 ==
LOC: E/R 13:00 → TEL 14:43 → OBSVTOIN 06-19 15:13
PROVIDERS: ADMIT Internal Medicine; ATTEND Internal Medicine
PROC: 5A1D70Z Performance of Urinary Filtration, Intermittent, Less than 6 Hours Per Day (ICD-10-PCS; 2018-06-17)
PROC: 5A1D70Z Performance of Urinary Filtration, Intermittent, Less than 6 Hours Per Day (ICD-10-PCS; 2018-06-19)
PROC: 5A1D70Z Performance of Urinary Filtration, Intermittent, Less than 6 Hours Per Day (ICD-10-PCS; principal; 2018-06-20)
DX: E87.70 Fluid overload, unspecified (principal); J96.01 Acute respiratory failure with hypoxia; N18.6 End stage renal disease; J90 Pleural effusion, not elsewhere classified; I12.0 Hypertensive chronic kidney disease with stage 5 chronic kidney disease or end stage renal disease; E87.0 Hyperosmolality and hypernatremia; E87.5 Hyperkalemia; D63.1 Anemia in chronic kidney disease; E03.9 Hypothyroidism, unspecified; N40.0 Benign prostatic hyperplasia without lower urinary tract symptoms; M94.0 Chondrocostal junction syndrome [Tietze]; H10.9 Unspecified conjunctivitis; E87.6 Hypokalemia; Z99.2 Dependence on renal dialysis
CPT/HCPCS: 36415; 71045; 80048; 82550; 82553; 82962; 83735; 84100; 84484; 85025; 87075; 87081; 87340; 90935; 93005; 96374; 96375; G0378; J1170; J1644; J1940; J2060; J2270; J2405; P9047; Q4081

== ENCOUNTER 2018-06-24 00:20 | Inpatient (IN) | payer OTHER ==
[~2018-06-24] VITALS: Ht 165.1 cm; Wt 51.2 kg
[2018-06-24] VITALS (27 sets, daily range): BP systolic 71–156; BP diastolic 36–88; PULSE 67–99; RESP 14–20; Ht 165.1 cm; Wt 51.2 kg
[~2018-06-24 00:20] MED LIST changes: -GLYC1SUP92 PR; -MAGN296S40 PO
--- NOTE | 2018-06-24 00:26 | ERD ---
ER Documentation Chief Complaint Chief Complaint CP HPI The patient is a 58-year-old male, presenting to the ER because of acute chest pain intermittently for the last 2 days, he has similar symptoms previously, 01/01, nonradiating, non-provoked, worse with coughing. He denies chest pain with exertion/vomiting/diaphoresis/radiation, dyspnea. He complains of epigastric abdominal pain intermittently for the last couple days, complains of diarrhea for the last 4 days, denies hematemesis/hematochezia/dysuria. He does not smoke nor drink He was treated by EMS with aspirin 160 mg p.o. and 1 spray of nitroglycerin without any response. Past medical history: Chronic kidney disease on hemodialysis Thursday and Thursday, hypertension, hypothyroidism, BPH, GERD, anxiety, depression, peripheral vascular disease, history of atrial fibrillation Past surgical history: Left upper extremity AV fistula, renal surgery ROS All systems reviewed and are negative except as per history of present illness. Medications Home Meds Reported Medications Multivit/Ca Carb/B Cmplx/Fa* (Chely-Maribel*) 1 Tab Tab, 1 TAB PO DAILY, TAB 06/08/18 Mirtazapine* (Mirtazapine*) 7.5 Mg Tablet, 7.5 MG PO HS, TAB 06/08/18 Ranitidine Hcl* (Ranitidine Hcl*) 150 Mg Tablet, 150 MG PO Q12, #60 TAB 06/08/18 Calcium Carbonate* (Calcium Carbonate*) 600 MG Ca Tab, 600 MG PO DAILY, TAB 06/08/18 Diphenhydramine Hcl* (Benadryl*) 50 Mg Cap, 50 MG PO Q6 PRN for ITCHING, CAP 04/15/18 Nitroglycerin* (Nitrostat*) 0.4 Mg Tab.subl, 0.4 MG SL Q5MIN PRN for CHEST PAIN, BOTTLE 04/15/18 Ondansetron Hcl* (Zofran*) 4 Mg Tablet, 4 MG PO Q6H PRN for NAUSEA AND OR VOMITING, TAB 04/15/18 Docusate Sodium* (Colace*) 100 Mg Capsule, 200 MG PO QHS, #60 CAP 04/15/18 Nifedipine* (Nifedipine ER*) 90 Mg Tablet.sa, 90 MG PO BID, TAB.SA 04/15/18 Pantoprazole* (Protonix*) 40 Mg Tablet.dr, 40 MG PO DAILY, TAB 04/15/18 Sevelamer Hcl* (Renagel*) 800 Mg Tablet, 1600 MG PO WITH MEALS, TAB 04/15/18 Hydralazine Hcl* (Hydralazine Hcl*) 50 Mg Tab, 50 MG PO BID PRN for ELEVATED BLOOD PRESSURE, #60 TAB HOLD FOR SBP<110 OR HR <60 04/15/18 Levothyroxine Sodium* (Levoxyl*) 75 Mcg Tablet, 75 MCG PO BEFORE BREAKFAST, #30 TAB 04/15/18 Tamsulosin Hcl* (Tamsulosin Hcl*) 0.4 Mg Cap.er.24h, 0.4 MG PO HS, CAP 04/15/18 Hydrocodone/Acetaminophen (Laurens 5-325 Tablet) 1 Each Tablet, 2 EACH PO Q6 PRN for SEVERE PAIN LEVEL 7-10, TAB 04/15/18 Atropine Sulfate/0.9 %Sod Chlr (Atropine 0.01%-Ns Eye Drops) 10 Ml Drops, 1 DRP RIGHT EYE BID, BOTTLE 04/15/18 Levalbuterol* (Xopenex* HFA) 15 Gm Inha, 2 PUFFS INH Q4H PRN for WHEEZING AND SOB, INHALER 04/15/18 Discontinued Reported Medications Glycerin* (Glycerin (Adult)*) 1 Each Supp.rect, 1 EACH [place] DAILY PRN for CONSTIPATION, SUPP.RECT 04/15/18 Magnesium Citrate* (Magnesium Citrate*) 296 Ml Solution, 296 ML PO ONCE PRN for CONSTIPATION, #1 BOTTLE 04/15/18 Allergies Allergies: Coded Allergies: No Known Allergies (Unverified Allergy, Unknown, 06/24/18) PMhx/Soc History of Surgery: Yes (left arm fistula) Anesthesia Reaction: No Hx Neurological Disorder: No Hx Respiratory Disorders: Yes Hx Cardiac Disorders: Yes (HTN,) Hx Psychiatric Problems: No Hx Miscellaneous Medical Probl: Yes (anemia, penumonia, hypothyroidism,BPH) Hx Alcohol Use: No Hx Substance Use: No Hx Tobacco Use: No Physical Exam Vitals Vital Signs Date Temp Pulse Resp B/P (MAP) Pulse Ox O2 O2 Flow FiO2 Time Delivery Rate 06/24/18 66 20 143/79 100 Room Air 01:26 (100) 06/24/18 Nasal 2 00:59 Cannula 06/24/18 98.6 61 18 111/67 98 00:24 (82) Physical Exam Const: No acute distress. Head: Atraumatic. Eyes: Normal Conjunctiva. ENT: Normal External Ears, Nose and Mouth. Neck: Full range of motion. No meningismus. Resp: Clear to auscultation bilaterally. Cardio: Regular rate and rhythm. Abd: Soft, non distended, normal bowel sounds, diffuse and vague abdominal tenderness, no rigidity/rebound/CVA tenderness Skin: No petechiae or rashes. Back: No midline or flank tenderness. Ext: No cyanosis, or edema. Neur: Awake and alert. No focal deficit Psych: Normal Mood and Affect. Result Diagram: 06/24/18 0617 06/24/18 0055 Results 24 hrs Laboratory Tests Test 06/24/18 00:55 White Blood Count 3.4 10^3/ul Red Blood Count 3.48 10^6/ul Hemoglobin 10.7 g/dl Hematocrit 32.1 % Mean Corpuscular Volume 92.2 fl Mean Corpuscular Hemoglobin 30.7 pg Mean Corpuscular Hemoglobin Concent 33.3 g/dl Red Cell Distribution Width 16.2 % Platelet Count 136 10^3/UL Mean Platelet Volume 10.0 fl Immature Granulocytes % 0.000 % Neutrophils % 55.0 % Lymphocytes % 35.0 % Monocytes % 7.9 % Eosinophils % 0.9 % Basophils % 1.2 % Nucleated Red Blood Cells % 0.0 /100WBC Immature Granulocytes # 0.000 10^3/ul Neutrophils # 1.9 10^3/ul Lymphocytes # 1.2 10^3/ul Monocytes # 0.3 10^3/ul Eosinophils # 0.0 10^3/ul Basophils # 0.0 10^3/ul Nucleated Red Blood Cells # 0.0 10^3/ul Sodium Level 135 mmol/L Potassium Level 5.6 mmol/L Chloride Level 103 mmol/L Carbon Dioxide Level 24 mmol/L Anion Gap 8 Blood Urea Nitrogen 19 mg/dl Creatinine 3.38 mg/dl Est Glomerular Filtrat Rate mL/min 19 mL/min Glucose Level 88 mg/dl Calcium Level 7.9 mg/dl Total Bilirubin 0.1 mg/dl Direct Bilirubin 0.00 mg/dl Indirect Bilirubin 0.1 mg/dl Aspartate Amino Transf (AST/SGOT) 23 IU/L Alanine Aminotransferase (ALT/SGPT) 18 IU/L Alkaline Phosphatase 72 IU/L Troponin I < 0.012 ng/ml Total Protein 6.9 g/dl Albumin 3.0 g/dl Current Medications Medications Dose Sig/Ines Start Time Status Last (Trade) Ordered Route PRN Stop Time Admin Dose Reason Admin 650 mg ONCE ONCE 06/24/18 DC Acetaminophen PO 01:30 (Tylenol 06/24/18 01:31 Tab) Albuterol 15 mg ONCE ONCE 06/24/18 DC 06/24/18 (Proventil INH 03:46 04:05 0.5% (Neb)) 06/24/18 03:47 Insulin 5 unit ONCE ONCE 06/24/18 DC Human IVP 03:47 Regular 06/24/18 03:48 (Humulin R) Procedures/[place] [address] Radiology Main Line: [phone] DIAGNOSTIC IMAGING REPORT Patient: VAHE SEPULVEDA : 1960 Age: 58 Sex: M MR #: [id number] DOS: 06/24/18 0108 Ordering MD: BOOKER MATIAS MD Location: E/R Room/Bed: PROCEDURE: CT Abdo and Pelvis w/o IV Cont CLINICAL INDICATION: Abdominal pain. TECHNIQUE: Contiguous axial imaging was performed through the abdomen and pelvis without contrast. Coronal and sagittal reformatting was utilized. DICOM images are available. Lack of intravenous contrast causes limitation in evaluation of the solid organs and vasculature. Lack of oral contrast causes limitation of the gastrointestinal tract. CTDIvol: 4.74 mGy mGy. Total Exam DLP: 276.83 mGy.cm mGy-cm. This CT exam was performed using one or more of the following dose reduction techniques: Automated exposure control, adjustment of the mA and/or kV according to patient size, use of iterative reconstruction technique. COMPARISON: August 09, 2017. FINDINGS: VISUALIZED LUNG BASES: Small to moderate-sized bilateral pleural effusions are present with adjacent lower lobe atelectasis, more on the left. A few calcifications are noted within the atelectatic left lower lobe. Scattered ground-glass changes are noted within both lung bases. Linear atelectasis or scarring is present in both lung bases. The heart appears normal in size. Focal coronary calcifications are noted. Small to moderate pericardial effusion is increased. LIVER: Unremarkable. SPLEEN: Unremarkable. PANCREAS: Moderately atrophic with scattered calcifications that may be related to prior inflammation. GALLBLADDER: Unremarkable. ADRENAL GLANDS: Unremarkable. RIGHT KIDNEY: 0.7 cm nonobstructing upper and lower pole calculi are again seen. Extensive vascular calcifications are noted. LEFT KIDNEY: Extensive vascular calcifications are noted. ADENOPATHY: No adenopathy is appreciated. Ascites/anasarca and lack of intravenous contrast causes some limitation. VASCULATURE: Severe atherosclerotic calcifications are present. FREE FLUID: Small amount of ascites is present and there is generalized mesenteric edema/anasarca type change. GI TRACT: There is no bowel dilatation to suggest obstruction. No inflammatory changes of the bowel are appreciated. APPENDIX: Unremarkable. PELVIC STRUCTURES: Otherwise unremarkable. OTHER SOFT TISSUES: Diffuse anasarca type changes are noted. OSSEOUS STRUCTURES: Degenerative changes of the spine are present with stable chronic erosive endplate changes at L2-L3. Grade 1 anterolisthesis is present at L5-S1 chronic bilateral L5 pars defects. IMPRESSION: 1. Small to moderate bilateral pleural effusions are present with adjacent atelectasis, more on the left. 2. Scattered ground-glass changes within both lung bases may be related to inflammatory or infectious process or mild congestion in the appropriate setting. 3. Small to moderate pericardial effusion is mildly increased in size. 4. Small amount of ascites and diffuse anasarca type changes are again seen. 5. Severe atherosclerosis. 6. Other changes are relatively stable. RPTAT:HGST Sy Mcbride Physician Date Time Electronically viewed and signed by Sy Mcbride Physician on 06/24/2018 03:35 GT/ CC: BOOKER MATIAS MD [id number] [place] [id number] Radiology Main Line: [phone] DIAGNOSTIC IMAGING REPORT Patient: VAHE SEPULVEDA : 1960 Age: 58 Sex: M [id number] DOS: 06/24/18 0033 Ordering MD: BOOKER MATIAS MD Location: E/R Room/Bed: PROCEDURE: XR Chest. CLINICAL INDICATION: Chest pain. TECHNIQUE: Single portable AP frontal radiographic view of the chest obtained COMPARISON: 06/17/2018. FINDINGS: No focal consolidative airspace process identified.Mild bibasilar pulmonary subsegmental atelectasis. No identifiable effusion or pneumothorax. Stable mild cardiomegaly with mild pulmonary vascular congestion and interstitial coarsening which is improved since 06/17/2018. Trachea is midline. Osseous structures are grossly stable with diffuse bony demineralization and spondylotic changes. No free air below the diaphragms. IMPRESSION: Stable mild cardiomegaly with improved trace residual or recurrent pulmonary interstitial edema. Bilateral pleural effusions have resolved. RPTAT: HSAN Physician Jenn Date Time Electronically viewed and signed by Cris Basurto Physician on 06/24/2018 02:08 xN/ CC: BOOKER MATIAS MD [id number] EKG: Read by emergency physician Rate/Rhythm: Normal Sinus Rhythm 61 beats/min QRS, ST, T-waves: No ST elevation, no T inversion Impression: Normal EKG Stool studies/UA are pending MEDICAL MAKING DECISION: The patient is a 58-year-old male, presenting with acute chest pain, acute abdominal pain, acute diarrhea, acute hyperkalemia. He was treated with 1 amp of D50 IV, 5 units of regular insulin IV, albuterol 50 mg nebulizer for acute hyperkalemia with good response. The differential diagnoses for acute abdominal pain considered include but are not limited to cholelithiasis, cholecystitis, choledocholithiasis, cholangitis, pancreatitis, hepatitis, gastritis, peptic ulcer disease, gastric ulcer, appendicitis, cystitis, diverticulitis, partial small bowel obstruction. The differential diagnoses for acute chest pain considered include but are not limited to acute coronary syndrome, acute myocardial infarction, pericarditis, pulmonary embolism, aortic dissection, pneumonia, pleural effusion, pneumo thorax, GERD, chest wall pain. Departure Diagnosis: Primary Impression: Chest pain Additional Impressions: Abdominal pain Diarrhea Hyperkalemia Pancytopenia Bilateral pleural effusion Pericardial effusion Condition: Stable Comments I discussed the findings with the patient. I discussed the patient with the hospitalist Dr Ulloa at 3:45 AM. who was made aware of the lab, the treatment, the patient condition. The patient is admitted to Tel Disclaimer: Inadvertent spelling and grammatical errors are likely due to EHR/dictation software use and do not reflect on the overall quality of patient care. Also, please note that the electronic time recorded on this note does not necessarily reflect the actual time of the patient encounter. BOOKER MATIAS MD Jun 24, 2018 00:26
[2018-06-24] MEDS ORDERED: ACETAMINOPHEN 325 MG TAB PO ONE (01:30)
[2018-06-24] MEDS ORDERED: ALBUTEROL 0.5% (NEB) 2.5 MG/0.5 ML AMP INH ONE (03:46)
[2018-06-24] MEDS ORDERED: INSULIN REGULAR, HUMAN 100 UNIT/1 ML 3ML VIAL IVP ONE (03:47)
[2018-06-24] MEDS ORDERED: DEXTROSE 50% 50 ML SYRINGE IV ONE (04:00)
[2018-06-24] MEDS ORDERED: DEXTROSE 50% 50 ML SYRINGE IV PRN (04:00)
[2018-06-24] MEDS ORDERED: NITROGLYCERIN (SL) 0.4 MG TAB SL PRN (06:00)
[2018-06-24] MEDS ORDERED: NACL 0.9% 3 ML SYG IV SCH (06:00)
[2018-06-24] MEDS ORDERED: ACETAMINOPHEN 325 MG TAB PO PRN (06:00)
[2018-06-24] MEDS ORDERED: HYDROCODONE/APAP (5/325) TAB PO PRN (06:00)
[2018-06-24] MEDS ORDERED: LEVALBUTEROL (HFA) 15 GM INHALER INH PRN (06:00)
[2018-06-24] MEDS: LEVOTHYROXINE 75 MCG TAB PO SCH (06:17)
[2018-06-24] MEDS: PANTOPRAZOLE (EC) 40 MG TAB PO SCH (06:17)
--- NOTE | 2018-06-24 06:58 | HP ---
Date/Time of Note Date/Time of Note DATE: 06/24/18 TIME: 06:51 Assessment/Plan VTE Prophylaxis Pharmacological prophylaxis: heparin Lines/Catheters IV Catheter Type (from Nrsg): Saline Lock Assessment/Plan Assessment/Plan 1. Recurrent chest pain: Patient was just discharged 2 days ago after he was ruled out for ACS. At that time chest pain was felt to be musculoskeletal in origin -On my exam, pain was reproducible on palpation -So far, his the first troponin is negative and EKG without ST elevation or depression. -Trend troponin and place a cardiology consult -2D-Echo 2. Abdominal pain with diarrhea -Patient has a history of C. difficile colitis -CT abdomen/pelvis nondiagnostic -Stool studies including C. difficile -No empiric antibiotic at this time 4. ESRD on HD: Nephrology for dialysis (Stephanie Garza) 5. Hypertension: Adjust antihypertensive as needed 6. BPH: Continue home med 7. Hypothyroidism: Continue Synthroid 8. Pleural effusion: In a patient with ESRD -Nephrology for dialysis -f/u 2d-echo Result Diagram: 06/24/18 0617 06/24/18 0055 Results 24hrs Laboratory Tests Test 06/24/18 00:55 06/24/18 06:17 White Blood Count 3.4 L 3.7 L Red Blood Count 3.48 L 3.65 L Hemoglobin 10.7 L 11.1 L Hematocrit 32.1 L 33.4 L Mean Corpuscular Volume 92.2 91.5 Mean Corpuscular Hemoglobin 30.7 30.4 Mean Corpuscular Hemoglobin Concent 33.3 33.2 Red Cell Distribution Width 16.2 H 16.4 H Platelet Count 136 L 146 Mean Platelet Volume 10.0 10.4 Immature Granulocytes % 0.000 L 0.300 Neutrophils % 55.0 68.9 Lymphocytes % 35.0 23.9 Monocytes % 7.9 5.9 Eosinophils % 0.9 0.5 Basophils % 1.2 0.5 Nucleated Red Blood Cells % 0.0 0.0 Immature Granulocytes # 0.000 0.010 Neutrophils # 1.9 2.6 Lymphocytes # 1.2 0.9 Monocytes # 0.3 0.2 L Eosinophils # 0.0 0.0 Basophils # 0.0 0.0 Nucleated Red Blood Cells # 0.0 0.0 Sodium Level 135 Potassium Level 5.6 H Chloride Level 103 Carbon Dioxide Level 24 Anion Gap 8 Blood Urea Nitrogen 19 Creatinine 3.38 H Est Glomerular Filtrat Rate mL/min 19 L Glucose Level 88 Calcium Level 7.9 L Total Bilirubin 0.1 L Direct Bilirubin 0.00 Indirect Bilirubin 0.1 Aspartate Amino Transf (AST/SGOT) 23 Alanine Aminotransferase (ALT/SGPT) 18 Alkaline Phosphatase 72 Troponin I < 0.012 Total Protein 6.9 Albumin 3.0 L HPI/ROS Admit Date/Time Admit Date/Time Jun 24, 2018 at 03:48 Hx of Present Illness 56-year-old male with history of ESRD on HD, hypothyroidism, diabetic retinopathy, psoas abscess, spinal osteomyelitis s/p laminectomy, hepatitis C, BPH, VRE conjunctivitis, C. difficile colitis. Patient presents the ER complaining of chest pain, abdominal pain and diarrhea. He was actually admitted recently and was just discharged 2 days ago after he initially pre sented with chest pain. At that time he was ruled out for ACS and his chest pain was thought to be musculoskeletal in origin. He said he has been having chest pain for the past 2 days. He also reported epigastric abdominal pain associated with diarrhea. He has been somehow sleepy during history taking, but was easily arousable. CT abdomen/pelvis shows the followin. Small to moderate bilateral pleural effusions are present with adjacent atelectasis, more on the left. 2. Scattered ground-glass changes within both lung bases may be related to inflammatory or infectious process or mild congestion in the appropriate setting. 3. Small to moderate pericardial effusion is mildly increased in size. 4. Small amount of ascites and diffuse anasarca type changes are again seen. 5. Severe atherosclerosis. 6. Other changes are relatively stable. . PMH/Family/Social Past Medical History Medical History: other (See HPI) Medications Current Medications Dextrose (D50w Syringe) ONCE PRN IV DECREASED GLUCOSE; Start 06/24/18 at 04:00 IV Flush (NS 3 ml) 3 ml PER PROTOCOL IV ; Start 06/24/18 at 06:00 Ondansetron HCl (Zofran Inj) 4 mg Q6H PRN IV NAUSEA/VOMITING; Start 06/24/18 at 06:00 Acetaminophen (Tylenol Tab) 650 mg Q6H PRN PO .PAIN 1-3 OR TEMP; Start 06/24/18 at 06:00 Acetaminophen/ Hydrocodone Bitart ([place] (5/325)) 1 tab Q6H PRN PO .PAIN 4-6; Start 06/24/18 at 06:00 Heparin Sodium (Porcine) (Heparin (5000 Units/1ml)) 5,000 unit Q12 SC ; Start 06/24/18 at 09:00 Diphenhydramine HCl (Benadryl) 50 mg Q6 PRN PO ITCHING; Start 06/24/18 at 06:00 Docusate Sodium (Colace) 200 mg QHS PO ; Start 06/24/18 at 21:00 Hydralazine HCl (Apresoline) 50 mg BID PRN PO ELEVATED BLOOD PRESSURE; Start 06/24/18 at 06:00 Acetaminophen/ Hydrocodone Bitart ([place] (5/325)) 2 tab Q6 PRN PO SEVERE PAIN LEVEL 7-10; Start 06/24/18 at 06:00 Levalbuterol (Xopenex Hfa) 2 puff Q4H RESP THERAPY PRN INH WHEEZING AND SOB; Start 06/24/18 at 06:00 Levothyroxine Sodium (Synthroid) 75 mcg BEFORE BREAKFAST PO Last administered on 06/24/18at 06:17; Admin Dose 75 MCG; Start 06/24/18 at 07:00 Mirtazapine (Remeron) 7.5 mg HS PO ; Start 06/24/18 at 21:00 Multivit/Ca Carb/ B Cmplx/FA/Prenat (Chely-Maribel) 1 tab DAILY PO ; Start 06/24/18 at 09:00 Nifedipine (Procardia Xl) 90 mg BID PO ; Start 06/24/18 at 09:00 Nitroglycerin (Nitroglycerin (Sl Tab) 0.4 Mg) 1 tab Q5M PRN SL CHEST PAIN; Start 06/24/18 at 06:00 Pantoprazole (Protonix Tab) 40 mg DAILY@0600 PO Last administered on 06/24/18at 06:17; Admin Dose 40 MG; Start 06/24/18 at 06:00 Ranitidine HCl (Zantac) 150 mg DAILY PO ; Start 06/24/18 at 09:00 Sevelamer Carbonate (Renvela) 1,600 mg WITH MEALS PO ; Start 06/24/18 at 07:55 Tamsulosin HCl (Flomax) 0.4 mg HS PO ; Start 06/24/18 at 21:00 Miscellaneous Information 1 drp BID RIGHT EYE ; Start 06/24/18 at 09:00; Status UNV Calcium Carbonate (Caltrate-600) 600 mg DAILY PO ; Start 06/24/18 at 09:00 Coded Allergies: No Known Allergies (Unverified Allergy, Unknown, 06/24/18) Past Surgical History Past Surgical Hx: other (AV fistula) Family History Significant Family History: no pertinent family hx Social History Alcohol Use: none Smoking Status: Never smoker Drug Use: none Exam/Review of Systems Vital Signs Vitals Vital Signs Date Temp Pulse Resp B/P (MAP) Pulse Ox O2 O2 Flow FiO2 Time Delivery Rate 06/24/18 93 05:39 06/24/18 97.2 20 111/59 98 Room Air 05:10 (76) 06/24/18 21 04:05 06/24/18 2 00:59 Exam Constitutional: other (sleepy, but arousable) Head: normocephalic, atraumatic Eyes: EOMI, PERRL Respiratory: other (Decreased breath sounds at the bases) Cardiovascular: regular rate and rhythm Gastrointestinal: soft Musculoskeletal: other (chest pain on palpation of chest) Extremities: normal pulses GIOVANNI ODELL MD Jun 24, 2018 06:58
[2018-06-24] MEDS: SEVELAMER CARBONATE 800 MG TABLET PO SCH ×3 (07:55→18:06)
--- NOTE | 2018-06-24 08:53 | CONS ---
DATE OF ADMISSION: 06/24/2018 DATE OF CONSULTATION: 06/24/2018 TYPE OF CONSULTATION: Nephrology. REASON FOR CONSULTATION: End-stage renal disease. HISTORY OF PRESENT ILLNESS: This is a 58-year-old male with a past medical history of end-stage ivette l disease on dialysis Thursday, , Thursday, access AV fistula, history of hypertension, BPH, h ypothyroidism, diabetes, history of hepatitis, who presents to the office and hospital with complaint s of chest pain. The patient had multiple admissions to doctors and hospitals with similar complaint s. Most recently the patient was admitted approximately a week ago and discharged 4 days ago. The p atient now presents with chest pain x2 days in duration. Described the pain as substernal. The pain has been associated also with diarrhea. Upon arrival to the Emergency Room, the patient had a CT sc an of the abdomen and pelvis performed which showed small to moderate bilateral effusions, scattered ground glass changes in the lung bases, pericardial effusion, ascites, and diffuse anasarca. The pat ient was subsequently admitted to telemetry for further evaluation. Upon my evaluation, the patient at this time is currently stable and denies any hemoptysis, hematemes is, hematochezia. PAST MEDICAL HISTORY: As stated above, history of end-stage renal disease, history of hypertension, history of diabetes, hypothyroidism, BPH. PAST SURGICAL HISTORY: Status post left AV fistula. FAMILY HISTORY: No family history of kidney disease. SOCIAL HISTORY: Does not drink, smoke or do drugs. MEDICATIONS: The patient's medications have been reviewed. REVIEW OF SYSTEMS: A 14-point review of systems negative. Pertinent positives stated in HPI, otherw ise negative. PHYSICAL EXAMINATION: VITAL SIGNS: Blood pressure is 144/69, pulse 62, respirations 17, temperature 98.6. HEENT: Head is normocephalic. NECK: Supple. HEART: Regular rate. LUNGS: Show diminished breath sounds at the base. ABDOMEN: Soft, nontender to palpation. No rebound or guarding. EXTREMITIES: Negative for clubbing, cyanosis. Positive edema. DERMATOLOGIC: No rashes. MUSCULOSKELETAL: No joint effusion. NEUROLOGIC: No focal deficits. MEDICATIONS: Have been reviewed. LABORATORY DATA: Shows white count 3.7, hemoglobin 11.1, platelet 146. Sodium 135, potassium , BUN 23, creatinine 3.65. IMAGING STUDIES: Reviewed. ASSESSMENT AND PLAN: This is a 58-year-old male who presents with: 1. End-stage renal disease. The patient is on dialysis Thursday, and Thursday, with access AV fistula. Plan is for hemodialysis today. We will dialyze for 3 hours 2k bath, calcium 2.5, ultra filtrate as tolerated. 2. Anemia. Continue to monitor hemoglobin and hematocrit levels. Will give Epogen and hemodialysis . 3. Mineral bone disorder. Continue to monitor calcium and phosphatase levels. Continue phosphate b inders, vitamin D analogs. 4. Hypertension. Continue current blood pressure regimen. Continue ultrafiltration dialysis. 5. Volume overload. Continue ultrafiltration dialysis. 6. Chest pain. Etiology is likely musculoskeletal. The patient is currently being ruled out for ac tim coronary syndrome. Continue to check serial troponins. Follow up with cardiology. 7. Abdominal pain with diarrhea. The patient's CT scan was reviewed. Clostridium difficile is pend ing. 8. Hypothyroidism. Continue Synthroid. 9. History of benign prostatic hypertrophy. Thank you, Dr. Odell for this interesting consult. It will be a pleasure to follow patient with you t fawnout the hospital course. Dictated By: NAE MENDOZA DO NR/NTS Conf#: [id number] DID#: [id number] CC: GIOVANNI ODELL MD;*EndCC*
[2018-06-24] MEDS ORDERED: NON-FORMULARY/PATIENT OWN MED (Calcium Carbonate* 600 MG) PO SCH (09:00)
[2018-06-24] MEDS ORDERED: ALBUMIN HUMAN 25% 100 ML IV PRN (09:30)
[2018-06-24] MEDS ORDERED: morphine 4 MG/ML VIAL IV STA (09:31)
--- NOTE | 2018-06-24 10:07 | EN ---
Date/Time of Note Date/Time of Note DATE: 06/24/18 TIME: 10:03 Event Note Medicine Medicine Event Note admitted for recurrent chest pain, atypical CT showed arthur pleural effusion, moderate pericardial effusion and possible infectious process -will treat for HCAP: blood cultures and empiric abx -albumin? -Nephro to manage diuresis -Cardio notified -supportive care RAMON PUENTES Jun 24, 2018 10:06
[2018-06-24] MEDS: HYDROCODONE/APAP (5/325) TAB PO PRN (12:15)
[2018-06-24] MEDS: CEFEPIME 1GM/50 ML (PMX) 50 ML IVPB SCH (14:00)
[2018-06-24] MEDS: CALCIUM CARBONATE (600 MG CA) TAB PO SCH (14:03)
[2018-06-24] MEDS: NIFEdipine (XL) 90 MG TAB PO SCH ×2 (14:03→21:00)
[2018-06-24] MEDS: MULTIVIT/CA CARB/B CMPLX/FA TAB PO SCH (14:03)
[2018-06-24] MEDS: RANITIDINE 150 MG TAB PO SCH (14:04)
[2018-06-24] MEDS: HEPARIN 5,000 UNIT/1 ML VIAL SC SCH ×2 (14:15→22:00)
[2018-06-24] MEDS ORDERED: LIDOCAINE 1% (MPF) 5 ML VIAL ONE (15:35)
--- NOTE | 2018-06-24 18:41 | CONS ---
Assessment/Plan Assessment/Plan Hospital Course (Demo Recall) Assessment: Chest pain - ruled out for myocardial infarction, possibly pleuritic Pleural effusions - status post left thoracentesis 06/24/2018 History of pericardial effusion Hypertension Diabetes mellitus Hypothyroidism End-stage renal disease, on hemodialysis History of hepatitis Recommendations: -obtain transthoracic echocardiogram -continue anti-hypertensive medications Consultation Date/Type/Reason Admit Date/Time Jun 24, 2018 at 03:48 Type of Consult Cardiology Reason for Consultation chest pain Date/Time of Note DATE: 06/24/18 TIME: 18:35 Hx of Present Illness The patient is a 58 year-old male who presented with chest pain, abdominal pain, and diarrhea. He is not a good historian and is unable to characterize his symptoms further. Review of medical records show numerous prior hospitalizations for similar symptoms. EKG shows normal sinus rhythm without abnormalities. Troponins have been negative x 3. He was noted to have pleural effusions and underwent left thoracentesis with removal of one liter. 14 point review of systems negative other than per HPI. Past Medical History History of pericardial effusion Hypertension Diabetes mellitus Hypothyroidism End-stage renal disease, on hemodialysis History of hepatitis Home Meds Reported Medications Multivit/Ca Carb/B Cmplx/Fa* (Chely-Maribel*) 1 Tab Tab, 1 TAB PO DAILY, TAB 06/08/18 Mirtazapine* (Mirtazapine*) 7.5 Mg Tablet, 7.5 MG PO HS, TAB 06/08/18 Ranitidine Hcl* (Ranitidine Hcl*) 150 Mg Tablet, 150 MG PO Q12, #60 TAB 06/08/18 Calcium Carbonate* (Calcium Carbonate*) 600 MG Ca Tab, 600 MG PO DAILY, TAB 06/08/18 Diphenhydramine Hcl* (Benadryl*) 50 Mg Cap, 50 MG PO Q6 PRN for ITCHING, CAP 04/15/18 Nitroglycerin* (Nitrostat*) 0.4 Mg Tab.subl, 0.4 MG SL Q5MIN PRN for CHEST PAIN, BOTTLE 04/15/18 Ondansetron Hcl* (Zofran*) 4 Mg Tablet, 4 MG PO Q6H PRN for NAUSEA AND OR VOMITING, TAB 04/15/18 Docusate Sodium* (Colace*) 100 Mg Capsule, 200 MG PO QHS, #60 CAP 04/15/18 Nifedipine* (Nifedipine ER*) 90 Mg Tablet.sa, 90 MG PO BID, TAB.SA 04/15/18 Pantoprazole* (Protonix*) 40 Mg Tablet.dr, 40 MG PO DAILY, TAB 04/15/18 Sevelamer Hcl* (Renagel*) 800 Mg Tablet, 1600 MG PO WITH MEALS, TAB 04/15/18 Hydralazine Hcl* (Hydralazine Hcl*) 50 Mg Tab, 50 MG PO BID PRN for ELEVATED BLOOD PRESSURE, #60 TAB HOLD FOR SBP<110 OR HR <60 04/15/18 Levothyroxine Sodium* (Levoxyl*) 75 Mcg Tablet, 75 MCG PO BEFORE BREAKFAST, #30 TAB 04/15/18 Tamsulosin Hcl* (Tamsulosin Hcl*) 0.4 Mg Cap.er.24h, 0.4 MG PO HS, CAP 04/15/18 Hydrocodone/Acetaminophen ([place] 5-325 Tablet) 1 Each Tablet, 2 EACH PO Q6 PRN for SEVERE PAIN LEVEL 7-10, TAB 04/15/18 Atropine Sulfate/0.9 %Sod Chlr (Atropine 0.01%-Ns Eye Drops) 10 Ml Drops, 1 DRP RIGHT EYE BID, BOTTLE 04/15/18 Levalbuterol* (Xopenex* HFA) 15 Gm Inha, 2 PUFFS INH Q4H PRN for WHEEZING AND SOB, INHALER 04/15/18 Discontinued Reported Medications Glycerin* (Glycerin (Adult)*) 1 Each Supp.rect, 1 EACH WA DAILY PRN for CONSTIPATION, SUPP.RECT 04/15/18 Magnesium Citrate* (Magnesium Citrate*) 296 Ml Solution, 296 ML PO ONCE PRN for CONSTIPATION, #1 BOTTLE 04/15/18 Medications Current Medications IV Flush (NS 3 ml) 3 ml PER PROTOCOL IV ; Start 06/24/18 at 06:00 Ondansetron HCl (Zofran Inj) 4 mg Q6H PRN IV NAUSEA/VOMITING; Start 06/24/18 at 06:00 Acetaminophen (Tylenol Tab) 650 mg Q6H PRN PO .PAIN 1-3 OR TEMP; Start 06/24/18 at 06:00 Acetaminophen/ Hydrocodone Bitart ([place] (5/325)) 1 tab Q6H PRN PO .PAIN 4-6; Start 06/24/18 at 06:00 Heparin Sodium (Porcine) (Heparin (5000 Units/1ml)) 5,000 unit Q12 SC Last administered on 06/24/18at 14:15; Admin Dose 5,000 UNIT; Start 06/24/18 at 09:00 Diphenhydramine HCl (Benadryl) 50 mg Q6 PRN PO ITCHING; Start 06/24/18 at 06:00 Docusate Sodium (Colace) 200 mg QHS PO ; Start 06/24/18 at 21:00 Hydralazine HCl (Apresoline) 50 mg BID PRN PO ELEVATED BLOOD PRESSURE; Start 06/24/18 at 06:00 Acetaminophen/ Hydrocodone Bitart ([place] (5/325)) 2 tab Q6 PRN PO SEVERE PAIN LEVEL 7-10 Last administered on 06/24/18at 12:15; Admin Dose 2 TAB; Start 06/24/18 at 06:00 Levalbuterol (Xopenex Hfa) 2 puff Q4H RESP THERAPY PRN INH WHEEZING AND SOB; Start 06/24/18 at 06:00 Levothyroxine Sodium (Synthroid) 75 mcg BEFORE BREAKFAST PO Last administered on 06/24/18 06:17; Admin Dose 75 MCG; Start 06/24/18 at 07:00 Mirtazapine (Remeron) 7.5 mg HS PO ; Start 06/24/18 at 21:00 Multivit/Ca Carb/ B Cmplx/FA/Prenat (Chely-Maribel) 1 tab DAILY PO Last administered on 06/24/18 14:03; Admin Dose 1 TAB; Start 06/24/18 at 09:00 Nifedipine (Procardia Xl) 90 mg BID PO Last administered on 06/24/18at 14:03; Admin Dose 90 MG; Start 06/24/18 at 09:00 Nitroglycerin (Nitroglycerin (Sl Tab) 0.4 Mg) 1 tab Q5M PRN SL CHEST PAIN; Start 06/24/18 at 06:00 Pantoprazole (Protonix Tab) 40 mg DAILY@0600 PO Last administered on 06/24/18 06:17; Admin Dose 40 MG; Start 06/24/18 at 06:00 Ranitidine HCl (Zantac) 150 mg DAILY PO Last administered on 06/24/18at 14:04; Admin Dose 150 MG; Start 06/24/18 at 09:00 Sevelamer Carbonate (Renvela) 1,600 mg WITH MEALS PO Last administered on 06/24/18at 18:06; Admin Dose 1,600 MG; Start 06/24/18 at 07:55 Tamsulosin HCl (Flomax) 0.4 mg HS PO ; Start 06/24/18 at 21:00 Miscellaneous Information 1 drp BID RIGHT EYE ; Start 06/24/18 at 09:00; Status UNV Calcium Carbonate (Caltrate-600) 600 mg DAILY PO Last administered on 06/24/18at 14:03; Admin Dose 600 MG; Start 06/24/18 at 09:00 Cefepime HCl 50 ml @ 100 mls/hr Q24H IVPB Last administered on 06/24/18at 14:00; Admin Dose 100 MLS/HR; Start 06/24/18 at 11:00 Albumin Human 100 ml @ 100 mls/hr DURING DIALYSIS PRN IV HYPOTENSION DURING HD; Start 06/24/18 at 09:30 Morphine Sulfate (morphine) 2 mg Q4H PRN IV SEVERE PAIN LEVEL 7-10; Start 06/24/18 at 15:30 Allergies: Coded Allergies: No Known Allergies (Unverified Allergy, Unknown, 06/24/18) Past Surgical History Past Surgical Hx: other (AV fistula) Family History Significant Family History: no pertinent family hx Social History Smoking Status: Never smoker Exam/Review of Systems Vital Signs Vitals Vital Signs Date Temp Pulse Resp B/P (MAP) Pulse Ox O2 O2 Flow FiO2 Time Delivery Rate 06/24/18 97.3 70 20 130/74 99 Room Air 16:32 (92) 06/24/18 21 04:05 06/24/18 2 00:59 Intake and Output 06/23/18 06/23/18 06/24/18 1515:00 23:00 07:00 IntakeIntake Total 120 ml BalanceBalance 120 ml Exam Constitutional: alert, well developed Psych: no complaints; No nl mood/affect Head: normocephalic, atraumatic Eyes: nl conjunctiva, nl lids Neck: supple, non-tender Respiratory: diminished breath sounds; No wheezing Cardiovascular: regular rate and rhythm Gastrointestinal: soft, non-tender Musculoskeletal: nl extremities to inspection Extremities: No cyanosis, No clubbing Labs Result Diagram: 1/31/19 0617 06/24/18 0617 Results 24hrs Laboratory Tests Test 06/24/18 00:55 06/24/18 02:05 06/24/18 06:17 06/24/18 11:36 White Blood Count 3.4 L 3.7 L Red Blood Count 3.48 L 3.65 L Hemoglobin 10.7 L 11.1 L Hematocrit 32.1 L 33.4 L Mean Corpuscular 92.2 91.5 Volume Mean Corpuscular 30.7 30.4 Hemoglobin Mean Corpuscular 33.3 33.2 Hemoglobin Concen t Red Cell 16.2 H 16.4 H Distribution Width Platelet Count 136 L 146 Mean Platelet 10.0 10.4 Volume Immature 0.000 L 0.300 Granulocytes % Neutrophils % 55.0 68.9 Lymphocytes % 35.0 23.9 Monocytes % 7.9 5.9 Eosinophils % 0.9 0.5 Basophils % 1.2 0.5 Nucleated Red 0.0 0.0 Blood Cells % Immature 0.000 0.010 Granulocytes # Neutrophils # 1.9 2.6 Lymphocytes # 1.2 0.9 Monocytes # 0.3 0.2 L Eosinophils # 0.0 0.0 Basophils # 0.0 0.0 Nucleated Red 0.0 0.0 Blood Cells # Sodium Level 135 135 Potassium Level 5.6 H 5.1 Chloride Level 103 102 Carbon Dioxide 24 24 Level Anion Gap 8 9 Blood Urea 19 23 H Nitrogen Creatinine 3.38 H 3.69 H Est Glomerular 19 L 17 L Filtrat Rate mL/min Glucose Level 88 111 Calcium Level 7.9 L 8.3 L Total Bilirubin 0.1 L 0.1 L Direct Bilirubin 0.00 0.00 Indirect 0.1 0.1 Bilirubin Aspartate Amino 23 20 Transf (AST/SGOT) Alanine 18 18 Aminotransferase (ALT/SGPT) Alkaline 72 83 Phosphatase Troponin I < 0.012 < 0.012 < 0.012 Total Protein 6.9 7.1 Albumin 3.0 L 3.2 L Stool Occult NEGATIVE Blood Creatine Kinase 25 22 L Creatine Kinase 3.7 4.1 Index Creatinine Kinase 0.93 0.91 MB (Mass) Globulin 3.90 H Albumin/Globulin 0.82 Ratio Prothrombin Time 15.0 H Prothrombin Time 1.2 Ratio INR International 1.17 Normalized Ratio Activated 32.8 Partial Thrombopl ast Time Test 1/31/19 11:58 06/24/18 15:24 Bedside Glucose 106 Body Fluid Type THORACENTESIS FL UID Body Fluid Volume 1025.0 Body Fluid Color RED Body Fluid BLOODY Appearance Body Fluid WBC 372 Body Fluid RBC 072493 (Auto) Body Fluid 30.6 Polynuclear WBCs (%) Body Fluid 69.4 Mononuclear Cells % Auto Body Fluid 229 Lactate Dehydroge nase Medications Medications Current Medications IV Flush (NS 3 ml) 3 ml PER PROTOCOL IV ; Start 06/24/18 at 06:00 Ondansetron HCl (Zofran Inj) 4 mg Q6H PRN IV NAUSEA/VOMITING; Start 06/24/18 at 06:00 Acetaminophen (Tylenol Tab) 650 mg Q6H PRN PO .PAIN 1-3 OR TEMP; Start 06/24/18 at 06:00 Acetaminophen/ Hydrocodone Bitart ([place] (5/325)) 1 tab Q6H PRN PO .PAIN 4-6; Start 06/24/18 at 06:00 Heparin Sodium (Porcine) (Heparin (5000 Units/1ml)) 5,000 unit Q12 SC Last administered on 06/24/18at 14:15; Admin Dose 5,000 UNIT; Start 06/24/18 at 09:00 Diphenhydramine HCl (Benadryl) 50 mg Q6 PRN PO ITCHING; Start 06/24/18 at 06:00 Docusate Sodium (Colace) 200 mg QHS PO ; Start 06/24/18 at 21:00 Hydralazine HCl (Apresoline) 50 mg BID PRN PO ELEVATED BLOOD PRESSURE; Start 06/24/18 at 06:00 Acetaminophen/ Hydrocodone Bitart ([place] (5/325)) 2 tab Q6 PRN PO SEVERE PAIN LEVEL 7-10 Last administered on 06/24/18at 12:15; Admin Dose 2 TAB; Start 05/27 06/12 at 06:00 Levalbuterol (Xopenex Hfa) 2 puff Q4H RESP THERAPY PRN INH WHEEZING AND SOB; Start 06/24/18 at 06:00 Levothyroxine Sodium (Synthroid) 75 mcg BEFORE BREAKFAST PO Last administered on 06/24/18at 06:17; Admin Dose 75 MCG; Start 06/24/18 at 07:00 Mirtazapine (Remeron) 7.5 mg HS PO ; Start 06/24/18 at 21:00 Multivit/Ca Carb/ B Cmplx/FA/Prenat (Chely-Maribel) 1 tab DAILY PO Last administere d on 06/24/18 14:03; Admin Dose 1 TAB; Start 06/24/18 at 09:00 Nifedipine (Procardia Xl) 90 mg BID PO Last administered on 06/24/18 14:03; Admin Dose 90 MG; Start 06/24/18 at 09:00 Nitroglycerin (Nitroglycerin (Sl Tab) 0.4 Mg) 1 tab Q5M PRN SL CHEST PAIN; Start 06/24/18 at 06:00 Pantoprazole (Protonix Tab) 40 mg DAILY@0600 PO Last administered on 06/24/18 06:17; Admin Dose 40 MG; Start 06/24/18 at 06:00 Ranitidine HCl (Zantac) 150 mg DAILY PO Last administered on 06/24/18 14:04; Admin Dose 150 MG; Start 06/24/18 at 09:00 Sevelamer Carbonate (Renvela) 1,600 mg WITH MEALS PO Last administered on 06/24/18 18:06; Admin Dose 1,600 MG; Start 06/24/18 at 07:55 Tamsulosin HCl (Flomax) 0.4 mg HS PO ; Start 06/24/18 at 21:00 Miscellaneous Information 1 drp BID RIGHT EYE ; Start 06/24/18 at 09:00; Status UNV Calcium Carbonate (Caltrate-600) 600 mg DAILY PO Last administered on 06/24/18 14:03; Admin Dose 600 MG; Start 06/24/18 at 09:00 Cefepime HCl 50 ml @ 100 mls/hr Q24H IVPB Last administered on 06/24/18 14:00; Admin Dose 100 MLS/HR; Start 06/24/18 at 11:00 Albumin Human 100 ml @ 100 mls/hr DURING DIALYSIS PRN IV HYPOTENSION DURING HD; Start 06/24/18 at 09:30 Morphine Sulfate (morphine) 2 mg Q4H PRN IV SEVERE PAIN LEVEL 7-10; Start 06/24/18 at 15:30 WILFRID MOREL MD Jun 24, 2018 18:41
[2018-06-24] MEDS ORDERED: TAMSULOSIN (SR) 0.4 MG CAP PO SCH (21:00)
[2018-06-24] MEDS ORDERED: ALBUMIN HUMAN 25% 100 ML IV ONE (21:30)
[2018-06-24] MEDS: MIRTAZAPINE 15 MG TAB PO SCH (21:49)
[2018-06-24] MEDS: DOCUSATE SODIUM 100 MG CAP PO SCH (22:01)
[2018-06-25] VITALS (80 sets, daily range): BP systolic 60–154; BP diastolic 21–105; PULSE 63–139; RESP 8–29
[2018-06-25] MEDS ORDERED: MIDODRINE 5 MG TAB PO ONE
[2018-06-25] MEDS ORDERED: NORepinephrine 8MG/250 ML (PMX 250 ML ONE (02:37)
[2018-06-25] MEDS: NORepinephrine 8MG/250 ML (PMX 250 ML IV SCH ×4 (02:43→18:50)
[2018-06-25] MEDS ORDERED: SOD CHLORIDE 0.9% 250 ML IV ONE ×2 (05:00)
[2018-06-25] MEDS: PANTOPRAZOLE (EC) 40 MG TAB PO SCH (06:00)
[2018-06-25] MEDS ORDERED: PHENYLephrine 20MG IN 250 ML 250 ML IV SCH (06:30)
[2018-06-25] MEDS: LEVOTHYROXINE 75 MCG TAB PO SCH (06:35)
--- NOTE | 2018-06-25 06:59 | EN ---
Date/Time of Note Date/Time of Note DATE: 06/25/18 TIME: 06:59 ER Progress Note Central Line Placement by me: Patient consented, sterilely draped, full prep, gown, glove, mask, time out performed. Anesthesia: 1% lidocaine locally Location: Right femoral Device: Multiple lumen Technique: Seldinger technique. Secured with suture. Results: Venous return from all ports with easy saline flush. No complications. Guide wire retrieved and disposed of. ZAHEER CORTES MD Jun 25, 2018 06:59
[2018-06-25] MEDS ORDERED: SOD CHLORIDE 0.9% 1,000 ML IV ONE (07:00)
--- NOTE | 2018-06-25 07:04 | EN ---
Date/Time of Note Date/Time of Note DATE: 06/25/18 TIME: 07:03 Event Note Medicine Medicine Event Note Patient was transferred to ICU because of hypotension. Initially systolic blood pressure in the low 80s and mid to high 70s. He was given albumin and to 50 cc NS bolus without improvement. Earlier during the day, he had dialysis as well as a thoracentesis. Patient was transferred to ICU. As soon as he arrived, his blood pressure was noted to be as low as 49/39. He has been started on pressor. Just a little while ago, radiology notify the nurse saying that his chest x-ray shows near complete opacification of the left hemothorax, possibly without effusion or hemothorax. Will place a pulmonary consult. Will also contact GIOVANNI GUSTAFSON MD Jun 25, 2018 07:04
[2018-06-25] MEDS: PHENYLephrine 40 MG in DEXTROSE 5% 246 ML IV SCH ×3 (07:24→16:49)
[2018-06-25] MEDS: SEVELAMER CARBONATE 800 MG TABLET PO SCH ×3 (07:35→17:35)
[2018-06-25] MEDS: SOD CHLORIDE 0.9% 1,000 ML IV SCH ×2 (08:00→21:20)
[2018-06-25] MEDS: RANITIDINE 150 MG TAB PO SCH (09:00)
[2018-06-25] MEDS: CALCIUM CARBONATE (600 MG CA) TAB PO SCH (09:00)
[2018-06-25] MEDS: MULTIVIT/CA CARB/B CMPLX/FA TAB PO SCH (09:00)
[2018-06-25] MEDS: NIFEdipine (XL) 90 MG TAB PO SCH (09:00)
--- NOTE | 2018-06-25 09:01 | CONS ---
Assessment/Plan Assessment/Plan Assessment/Plan (Daily) Chest x-ray showing moderate to large left pleural effusion. Patient is currently on Levophed 25 mics per minute, phenylephrine drip at 50 mics per minute. Assessment recommendations; 1. Patient admitted with severe hypotension and severe anemia. Currently awaiting blood transfusion. 2. History of chronic renal failure, on hemodialysis. 3. Hypotension likely due to severe anemia. 4. Difficult to rule out early sepsis. 5. Other comorbidities include history of hypertension and hypothyroidism. 6. Status post left thoracentesis. A liter of fluid was removed. Possibly parapneumonic. Continue supportive care. Transfuse packed RBCs. Hemodialysis per senior lead project manager. Wean off pressor support as tolerated. Consultation Date/Type/Reason Admit Date/Time Jun 24, 2018 at 03:48 Date of Consultation: Jun 25, 2018 Type of Consult Pulmonary/critical care Patient is a 58-year-old male who came into the hospital complains of shortness of breath. Upon evaluation patient was found to be severely anemic. Patient also was hypotensive requiring ICU admission. Patient is currently on 2 pressors Levophed and Bonilla-Synephrine. Patient is however completely awake and alert and denies any chest pain, fever, shortness of breath. Past medical history; 1. History of chronic renal failure, on hemodialysis. 2. History of anemia. 3. History of hypothyroidism. 4. History of hypertension. 5. BPH. Medications; reviewed. Allergies; none. Social history; no history any smoking alcohol or drug abuse. Family history; noncontributory. Occupational history; patient is on disability. Review of systems; denies any headache, visual changes. Any seizures. Patient denies any chest pain. Any coughing, wheezing, sputum production. Shortness of breath has slightly improved after undergoing thoracentesis. Denies any a bdominal pain, nausea vomiting. Any melena or hematochezia. Patient is essentially anuric. Denies any orthopnea. General exam; middle-aged male, awake and alert. Currently no distress. Laying comfortably in bed. Date/Time of Note DATE: 06/25/18 TIME: 08:56 Past Medical History Medical History: other (See HPI) Home Meds Reported Medications Multivit/Ca Carb/B Cmplx/Fa* (Chely-Maribel*) 1 Tab Tab, 1 TAB PO DAILY, TAB 06/08/18 Mirtazapine* (Mirtazapine*) 7.5 Mg Tablet, 7.5 MG PO HS, TAB 06/08/18 Ranitidine Hcl* (Ranitidine Hcl*) 150 Mg Tablet, 150 MG PO Q12, #60 TAB 06/08/18 Calcium Carbonate* (Calcium Carbonate*) 600 MG Ca Tab, 600 MG PO DAILY, TAB 06/08/18 Diphenhydramine Hcl* (Benadryl*) 50 Mg Cap, 50 MG PO Q6 PRN for ITCHING, CAP 04/15/18 Nitroglycerin* (Nitrostat*) 0.4 Mg Tab.subl, 0.4 MG SL Q5MIN PRN for CHEST PAIN, BOTTLE 04/15/18 Ondansetron Hcl* (Zofran*) 4 Mg Tablet, 4 MG PO Q6H PRN for NAUSEA AND OR VOMITING, TAB 04/15/18 Docusate Sodium* (Colace*) 100 Mg Capsule, 200 MG PO QHS, #60 CAP 04/15/18 Nifedipine* (Nifedipine ER*) 90 Mg Tablet.sa, 90 MG PO BID, TAB.SA 04/15/18 Pantoprazole* (Protonix*) 40 Mg Tablet.dr, 40 MG PO DAILY, TAB 04/15/18 Sevelamer Hcl* (Renagel*) 800 Mg Tablet, 1600 MG PO WITH MEALS, TAB 04/15/18 Hydralazine Hcl* (Hydralazine Hcl*) 50 Mg Tab, 50 MG PO BID PRN for ELEVATED BLOOD PRESSURE, #60 TAB HOLD FOR SBP<110 OR HR <60 04/15/18 Levothyroxine Sodium* (Levoxyl*) 75 Mcg Tablet, 75 MCG PO BEFORE BREAKFAST, #30 TAB 04/15/18 Tamsulosin Hcl* (Tamsulosin Hcl*) 0.4 Mg Cap.er.24h, 0.4 MG PO HS, CAP 04/15/18 Hydrocodone/Acetaminophen (Newry 5-325 Tablet) 1 Each Tablet, 2 EACH PO Q6 PRN for SEVERE PAIN LEVEL 7-10, TAB 04/15/18 Atropine Sulfate/0.9 %Sod Chlr (Atropine 0.01%-Ns Eye Drops) 10 Ml Drops, 1 DRP RIGHT EYE BID, BOTTLE 04/15/18 Levalbuterol* (Xopenex* HFA) 15 Gm Inha, 2 PUFFS INH Q4H PRN for WHEEZING AND SOB, INHALER 04/15/18 Discontinued Reported Medications Glycerin* (Glycerin (Adult)*) 1 Each Supp.rect, 1 EACH NM DAILY PRN for CONSTIPATION, SUPP.RECT 04/15/18 Magnesium Citrate* (Magnesium Citrate*) 296 Ml Solution, 296 ML PO ONCE PRN for CONSTIPATION, #1 BOTTLE 04/15/18 Medications Current Medications IV Flush (NS 3 ml) 3 ml PER PROTOCOL IV ; Start 06/24/18 at 06:00 Ondansetron HCl (Zofran Inj) 4 mg Q6H PRN IV NAUSEA/VOMITING; Start 06/24/18 at 06:00 Acetaminophen (Tylenol Tab) 650 mg Q6H PRN PO .PAIN 1-3 OR TEMP; Start 06/24/18 at 06:00 Acetaminophen/ Hydrocodone Bitart (Newry (5/325)) 1 tab Q6H PRN PO .PAIN 4-6; Start 06/24/18 at 06:00 Heparin Sodium (Porcine) (Heparin (5000 Units/1ml)) 5,000 unit Q12 SC Last administered on 06/24/18at 22:00; Admin Dose 5,000 UNIT; Start 06/24/18 at 09:00 Diphenhydramine HCl (Benadryl) 50 mg Q6 PRN PO ITCHING; Start 06/24/18 at 06:00 Docusate Sodium (Colace) 200 mg QHS PO ; Start 06/24/18 at 21:00 Hydralazine HCl (Apresoline) 50 mg BID PRN PO ELEVATED BLOOD PRESSURE; Start 06/24/18 at 06:00 Acetaminophen/ Hydrocodone Bitart (Newry (5/325)) 2 tab Q6 PRN PO SEVERE PAIN LEVEL 7-10 Last administered on 06/24/18at 12:15; Admin Dose 2 TAB; Start 06/24/18 at 06:00 Levalbuterol (Xopenex Hfa) 2 puff Q4H RESP THERAPY PRN INH WHEEZING AND SOB; Start 06/24/18 at 06:00 Levothyroxine Sodium (Synthroid) 75 mcg BEFORE BREAKFAST PO Last administered on 06/24/18at 06:17; Admin Dose 75 MCG; Start 06/24/18 at 07:00 Mirtazapine (Remeron) 7.5 mg HS PO Last administered on 06/24/18at 21:49; Admin Dose 7.5 MG; Start 06/24/18 at 21:00 Multivit/Ca Carb/ B Cmplx/FA/Prenat (Chely-Maribel) 1 tab DAILY PO Last administered on 06/24/18at 14:03; Admin Dose 1 TAB; Start 06/24/18 at 09:00 Nifedipine (Procardia Xl) 90 mg BID PO Last administered on 06/24/18 14:03; Admin Dose 90 MG; Start 06/24/18 at 09:00 Nitroglycerin (Nitroglycerin (Sl Tab) 0.4 Mg) 1 tab Q5M PRN SL CHEST PAIN; Start 06/24/18 at 06:00 Pantoprazole (Protonix Tab) 40 mg DAILY@0600 PO Last administered on 06/24/18at 06:17; Admin Dose 40 MG; Start 06/24/18 at 06:00 Ranitidine HCl (Zantac) 150 mg DAILY PO Last administered on 06/24/18at 14:04; Admin Dose 150 MG; Start 06/24/18 at 09:00 Sevelamer Carbonate (Renvela) 1,600 mg WITH MEALS PO Last administered on 06/24/18at 18:06; Admin Dose 1,600 MG; Start 06/24/18 at 07:55 Tamsulosin HCl (Flomax) 0.4 mg HS PO Last administered on 06/24/18at 21:49; Admin Dose 0.4 MG; Start 06/24/18 at 21:00 Miscellaneous Information 1 drp BID RIGHT EYE ; Start 06/24/18 at 09:00; Status UNV Calcium Carbonate (Caltrate-600) 600 mg DAILY PO Last administered on 06/24/18at 14:03; Admin Dose 600 MG; Start 06/24/18 at 09:00 Cefepime HCl 50 ml @ 100 mls/hr Q24H IVPB Last administered on 06/24/18at 14:00; Admin Dose 100 MLS/HR; Start 06/24/18 at 11:00 Albumin Human 100 ml @ 100 mls/hr DURING DIALYSIS PRN IV HYPOTENSION DURING HD; Start 06/24/18 at 09:30 Morphine Sulfate (morphine) 2 mg Q4H PRN IV SEVERE PAIN LEVEL 7-10; Start 06/24/18 at 15:30 Norepinephrine 250 ml @ 1.875 mls/ hr TITRATE IV Last administered on 06/25/18at 08:22; Admin Dose 56.25 MLS/HR; Start 06/25/18 at 03:00 Phenylephrine HCl 40 mg/Dextrose 250 ml @ 37.5 mls/hr TITRATE IV Last administered on 06/25/18at 07:24; Admin Dose 93.75 MLS/HR; Start 06/25/18 at 05:00 Phenylephrine HCl 250 ml @ 75 mls/hr TITRATE IV Last administered on 06/25/18at 06:34; Admin Dose 187.5 MLS/HR; Start 06/25/18 at 06:30 Sodium Chloride 1,000 ml @ 75 mls/hr [id number] IV ; Start 06/25/18 at 08:00 Allergies: Coded Allergies: No Known Allergies (Unverified Allergy, Unknown, 06/24/18) Past Surgical History Past Surgical Hx: other (AV fistula) Social History Smoking Status: Never smoker Exam/Review of Systems Exam Vitals Vital Signs Date Temp Pulse Resp B/P (MAP) Pulse Ox O2 O2 Flow FiO2 Time Delivery Rate 06/25/18 122 18 80/64 (69) 100 Nasal 06:30 Cannula 06/25/18 3.0 06:11 06/25/18 97.8 04:00 06/24/18 21 04:05 Intake and Output 06/24/18 06/24/18 06/25/18 1515:00 23:00 07:00 IntakeIntake Total 50 ml 580 ml 652.875 ml OutputOutput Total 2600 ml 0 ml BalanceBalance -2550 ml 580 ml 652.875 ml Exam HEENT exam; supple neck, no JVD. No lymphadenopathy. Midline trachea. No thy romegaly. No neck masses. Patient has carious teeth. Chest exam; diminished breath sound left lung. Right lung is clear. S1-S2 audible, no murmurs. Regular rhythm. Abdomen exam; soft, scaphoid. Nontender. No organomegaly. Bowel sounds audible. Extremity exam; no peripheral edema clubbing. DUMPSTER OPERATOR exam;no focal deficit. Results Result Diagram: 06/25/18 0800 06/25/18 0720 Results 24hrs Laboratory Tests Test 06/24/18 11:36 06/24/18 11:58 06/24/18 15:24 06/25/18 05:50 Prothrombin Time 15.0 H Prothrombin Time 1.2 Ratio INR 1.17 International Normalized Ratio Activated 32.8 Partial Thrombop last Time Creatine Kinase 22 L Creatine Kinase 4.1 Index Creatinine 0.91 Kinase MB (Mass) Troponin I < 0.012 Bedside Glucose 106 Body Fluid Type THORACENTESIS F LUID Body Fluid 1025.0 Volume Body Fluid Color RED Body Fluid BLOODY Appearance Body Fluid WBC 372 Body Fluid RBC 070672 (Auto) Body Fluid 30.6 Polynuclear WBCs (%) Body Fluid 69.4 Mononuclear Cells % Auto Body Fluid 229 Lactate Dehydrog enase Blood Gas Blood arterial Specimen Source Arterial Blood 06/25/2018 5:55:0 Date Drawn 2 AM Arterial Blood 7.417 pH (Temp corrected) Arterial Blood 30.7 L pCO2 (Temp correct) Arterial Blood 130.6 H pO2 (Temp corrected) Arterial Blood 19.3 L HCO3 Arterial Blood -4.8 L Base Excess Arterial Blood 98.2 H Oxygen Saturatio n Mauri Test ACCEPTAB Arterial Blood Right Radial Gas Puncture Site Arterial 0.6 Blood Carboxyhem oglobin Arterial Blood 0.1 Methemoglobin Blood Gas A-a O2 47.2 H Differential Oxyhemoglobin 97.5 Percent Blood Gas 37.0 Temperature Blood Gas Actual 18 Respiration Rate Blood Gas NASAL CANNULA Modality FiO2 30.0 Blood Gas [facility] Notified Whom Blood Gas 06/25/2018 6:02:3 Notified Time 0 AM Test 06/25/18 06:08 06/25/18 06:50 06/25/18 07:20 06/25/18 08:00 Bedside Glucose 117 White Blood 8.0 # Count Red Blood Count 1.47 #L Hemoglobin 4.7 #*L 4.3 *L Hematocrit 14.5 #L 13.8 L Mean Corpuscular 98.6 Volume Mean Corpuscular 32.0 Hemoglobin Mean Corpuscular 32.4 Hemoglobin Tosha nt Red Cell 17.8 H Distribution Width Platelet Count 148 Mean Platelet 9.9 Volume Immature 0.600 H Granulocytes % Neutrophils % 74.8 Lymphocytes % 18.5 Monocytes % 6.0 Eosinophils % 0.0 Basophils % 0.1 Nucleated Red 0.0 Blood Cells % Immature 0.050 H Granulocytes # Neutrophils # 6.0 Lymphocytes # 1.5 Monocytes # 0.5 Eosinophils # 0.0 Basophils # 0.0 Nucleated Red 0.0 Blood Cells # Sodium Level 140 Potassium Level 5.2 H Chloride Level 102 Carbon Dioxide 24 Level Anion Gap 14 H Blood Urea 19 Nitrogen Creatinine 3.06 H Est Glomerular 21 L Filtrat Rate mL/min Glucose Level 128 Calcium Level 8.0 L Phosphorus Level 4.1 Magnesium Level 2.2 Medications Medication Current Medications IV Flush (NS 3 ml) 3 ml PER PROTOCOL IV ; Start 06/24/18 at 06:00 Ondansetron HCl (Zofran Inj) 4 mg Q6H PRN IV NAUSEA/VOMITING; Start 06/24/18 at 06:00 Acetaminophen (Tylenol Tab) 650 mg Q6H PRN PO .PAIN 1-3 OR TEMP; Start 06/24/18 at 06:00 Acetaminophen/ Hydrocodone Bitart (Newry (5/325)) 1 tab Q6H PRN PO .PAIN 4-6; Start 06/24/18 at 06:00 Heparin Sodium (Porcine) (Heparin (5000 Units/1ml)) 5,000 unit Q12 SC Last administered on 06/24/18at 22:00; Admin Dose 5,000 UNIT; Start 06/24/18 at 09:00 Diphenhydramine HCl (Benadryl) 50 mg Q6 PRN PO ITCHING; Start 06/24/18 at 06:00 Docusate Sodium (Colace) 200 mg QHS PO ; Start 06/24/18 at 21:00 Hydralazine HCl (Apresoline) 50 mg BID PRN PO ELEVATED BLOOD PRESSURE; Start 06/24/18 at 06:00 Acetaminophen/ Hydrocodone Bitart (Newry (5/325)) 2 tab Q6 PRN PO SEVERE PAIN LEVEL 7-10 Last administered on 06/24/18at 12:15; Admin Dose 2 TAB; Start 06/24/18 at 06:00 Levalbuterol (Xopenex Hfa) 2 puff Q4H RESP THERAPY PRN INH WHEEZING AND SOB; Start 06/24/18 at 06:00 Levothyroxine Sodium (Synthroid) 75 mcg BEFORE BREAKFAST PO Last administered on 06/24/18at 06:17; Admin Dose 75 MCG; Start 06/24/18 at 07:00 Mirtazapine (Remeron) 7.5 mg HS PO Last administered on 06/24/18 21:49; Admin Dose 7.5 MG; Start 06/24/18 at 21:00 Multivit/Ca Carb/ B Cmplx/FA/Prenat (Chely-Maribel) 1 tab DAILY PO Last administere d on 06/24/18 14:03; Admin Dose 1 TAB; Start 06/24/18 at 09:00 Nifedipine (Procardia Xl) 90 mg BID PO Last administered on 06/24/18 14:03; Admin Dose 90 MG; Start 06/24/18 at 09:00 Nitroglycerin (Nitroglycerin (Sl Tab) 0.4 Mg) 1 tab Q5M PRN SL CHEST PAIN; Start 06/24/18 at 06:00 Pantoprazole (Protonix Tab) 40 mg DAILY@0600 PO Last administered on 06/24/18 06:17; Admin Dose 40 MG; Start 06/24/18 at 06:00 Ranitidine HCl (Zantac) 150 mg DAILY PO Last administered on 06/24/18 14:04; Admin Dose 150 MG; Start 06/24/18 at 09:00 Sevelamer Carbonate (Renvela) 1,600 mg WITH MEALS PO Last administered on 06/24/18 18:06; Admin Dose 1,600 MG; Start 06/24/18 at 07:55 Tamsulosin HCl (Flomax) 0.4 mg HS PO Last administered on 06/24/18 21:49; Admin Dose 0.4 MG; Start 06/24/18 at 21:00 Miscellaneous Information 1 drp BID RIGHT EYE ; Start 06/24/18 at 09:00; Status UNV Calcium Carbonate (Caltrate-600) 600 mg DAILY PO Last administered on 06/24/18 14:03; Admin Dose 600 MG; Start 06/24/18 at 09:00 Cefepime HCl 50 ml @ 100 mls/hr Q24H IVPB Last administered on 06/24/18at 14:00; Admin Dose 100 MLS/HR; Start 06/24/18 at 11:00 Albumin Human 100 ml @ 100 mls/hr DURING DIALYSIS PRN IV HYPOTENSION DURING HD; Start 06/24/18 at 09:30 Morphine Sulfate (morphine) 2 mg Q4H PRN IV SEVERE PAIN LEVEL 7-10; Start 06/24/18 at 15:30 Norepinephrine 250 ml @ 1.875 mls/ hr TITRATE IV Last administered on 06/25/18at 08:22; Admin Dose 56.25 MLS/HR; Start 06/25/18 at 03:00 Phenylephrine HCl 40 mg/Dextrose 250 ml @ 37.5 mls/hr TITRATE IV Last administered on 06/25/18at 07:24; Admin Dose 93.75 MLS/HR; Start 06/25/18 at 05:00 Phenylephrine HCl 250 ml @ 75 mls/hr TITRATE IV Last administered on 06/25/18at 06:34; Admin Dose 187.5 MLS/HR; Start 06/25/18 at 06:30 Sodium Chloride 1,000 ml @ 75 mls/hr [id number] IV ; Start 06/25/18 at 08:00 FADY MACEDO Jun 25, 2018 09:01
--- NOTE | 2018-06-25 09:33 | PN ---
DATE: 06/25/2018 SUBJECTIVE: The patient is critically ill. The patient was transferred from telemetry to the intens jan care unit due to hypertension. The patient was placed on pressor support overnight. There have been no reports of any hemoptysis, hematemesis, hematochezia. The patient had hemodialysis yesterday , tolerated well. OBJECTIVE: VITAL SIGNS: Blood pressure is 80/64, respiration 18, pulse 122, temperature 98.6. HEENT: Head is normocephalic. NECK: Supple. HEART: Regular rate. LUNGS: Show diminished breath sounds at the base. ABDOMEN: Soft, nontender to palpation without rebound or guarding. EXTREMITIES: Negative for clubbing, cyanosis, positive edema. DERMATOLOGIC: No rashes. MUSCULOSKELETAL: No joint effusion. NEUROLOGIC: No change in exam. MEDICATIONS: Reviewed. LABORATORY DATA: Shows a sodium 140, potassium 5.2, chloride 102, BUN 19, creatinine 3.06. White co unt 8.0, hemoglobin 4.7, platelet count is 148. IMAGING: Chest x-ray shows left hemothorax opacification, atelectasis. Cultures have been reviewed. ASSESSMENT AND PLAN: 1. End-stage renal disease. The patient had hemodialysis yesterday, tolerated well. Will plan for dialysis again today as the patient is hyperkalemic for solute clearance. Will plan for no ultrafilt ration as the patient is hypotensive in shock. 2. Anemia. The patient had a significant decrease in hemoglobin, dropped from 11 to 4 g/dL. Concer kimberly for possible bleed, possibly from recent thoracentesis. Repeat chest x-ray shows continued opac ification of left lung. Recommendation is to transfuse 2 units of PRBC. Continue Epogen. Monitor c losely. 5. Mineral bone disorder, monitor calcium and phosphorus levels. 6. Left lung opacification, etiology may be a hemorrhagic bleed from recent thoracentesis. Will con instructor bus trolley and taxi CT surgery evaluation for possible chest tube placement. Continue to monitor closely. 7. Shock, etiology is possibly hemodynamics secondary to acute bleed. We will give the patient a stephy naun of IV fluid. Recommend blood transfusion. Continue pressor support. Continue empiric antibioti cs, monitor closely. 8. History of chest pain. Continue to monitor, rule out acute coronary syndrome. 9. Abdominal pain. The patient is being ruled out for C. difficile colitis. 10. Hypothyroidism. Continue Synthroid. 11. History of benign prostatic hypertrophy. 12. History of hypertension. The patient is now hypotensive in shock. Hold blood pressure medicati ons. Please note I spent over 30 minutes of critical care time with this patient. Dictated By: NAE MENDOZA DO NR/NTS Conf#: [id number] DID#: [id number] CC: GIOVANNI ODELL MD;*EndCC*
--- NOTE | 2018-06-25 10:03 | PN ---
Date/Time of Note Date/Time of Note DATE: 06/25/18 TIME: 09:54 Assessment/Plan VTE Prophylaxis Risk score (from Ns)>0 risk: 5 SCD applied (from [facility]): Yes Pharmacological prophylaxis: NA/contraindicated Pharm contraindication: bleeding Lines/Catheters IV Catheter Type (from [facility]): Central Line Central line still needed: Yes Assessment/Plan Assessment/Plan S: Patient was transferred to the intensive care unit overnight after he developed hypotension that did not respond to albumin and fluid bolus. He rapidly began to require pressor support, and at the time of my arrival was on 3 pressors to maintain his systolic blood pressure. He had also had a hemoglobin drop from 11 to about 4.7. This was concerning because the patient showed no sign of external bleeding. He had had a thoracentesis yesterday that was said to have been uneventful. A CAT scan done yesterday as well as showed no concerns in the chest other than the fluids. However after my initial evaluation, a chest x-ray came back showing complete opacification of the left hemithorax. Due to concerns for possibly active hemothorax, urgent pulmonology consultation was obtained. Patient required chest tube placement. However it was recommended that this be done by cardiothoracic surgery in the event that there was an actively bleeding vessel. I immediately called the surgeon who was scrubbed in and surgery at the time and he promised to show up as soon as he was done. For his severe anemia, we ordered transfusion of 3 units of packed red cells stat however to ensure patient received blood emergently, a code Nilesh was called. Rigo dewitt was transfused O+ blood. During this whole time, he remained comfortable and his only complaint was chest pain and he kept asking for IV pain medications. I also communicated events that have happened overnight and give regular updates to his sister and niece who are his primary contact persons. Eventually, after obtaining informed consent, a chest tube was placed on the L sided by CT surgery and almost 3L of blood drained from the L hemithorax, patient remains comfortable on pressors and pain is improved now. He did receive morphine and versed for the procedure O: Constitutional: alert, oriented, frail, Pallor++, anicteric Head: atraumatic, normocephalic Neck: non-tender, supple Respiratory: diminished BS arthur, L chest tube to underwater suction Cardiovascular: regular rate and rhythm Gastrointestinal: S/ NT / ND / +BS Extremities: no edema, good radial pulses assessment and plan: 1. Recurrent chest pain: -pain seems thalia in origin, ?neuropathy, -patient has ruled out for ACS, cardiology following 2. Mild resp distress with arthur pleural effusions -s/p l sided thoracentesis with drainage of 1L -post thoracentesis complication of hemothorax, s.p bedside L chest tube drainage -serial CXRs -continue CT and underwater seal, management per CTS 3. Hypovolemic shock 2/2 acute blood loss -wean off pressors as tolerated -patient got PRBCS, needs a bit of volume, will gently give IVF -if needs further transfusion, use whole blood instead 4. Severe anemia -acute on chronic 2/2 blood loss -s/p transfusion of 3 units PRBC emergently, -f/u post transfusion cbc, serial H/h 5. Abdominal pain with diarrhea: resolved ? -Patient has a history of C. difficile colitis -CT abdomen/pelvis nondiagnostic -Stool studies including C. difficile -No empiric antibiotic at this time 6. ESRD on HD: Nephrology for dialysis (Stephanie Garza) 7. Hypertension: Adjust antihypertensive as needed, currently hypotensive on pressors 6. BPH: Continue home med 7. Hypothyroidism: Continue Synthroid 8. moderate pericardial effusion -f/u echo Dispo: -continue ICU care and support, wean off pressors, serial h/h. total care time today approximately 3 hours Result Diagram: 06/25/18 0916 06/25/18 0720 Results 24hrs Laboratory Tests Test 06/24/18 11:36 06/24/18 11:58 06/24/18 15:24 06/25/18 05:50 Prothrombin Time 15.0 H Prothrombin Time 1.2 Ratio INR 1.17 International Normalized Ratio Activated 32.8 Partial Thrombop last Time Creatine Kinase 22 L Creatine Kinase 4.1 Index Creatinine 0.91 Kinase MB (Mass) Troponin I < 0.012 Bedside Glucose 106 Body Fluid Type THORACENTESIS F LUID Body Fluid 1025.0 Volume Body Fluid Color RED Body Fluid BLOODY Appearance Body Fluid WBC 372 Body Fluid RBC 744234 (Auto) Body Fluid 30.6 Polynuclear WBCs (%) Body Fluid 69.4 Mononuclear Cells % Auto Body Fluid 229 Lactate Dehydrog enase Blood Gas Blood arterial Specimen Source Arterial Blood 06/25/2018 5:55:0 Date Drawn 2 AM Arterial Blood 7.417 pH (Temp corrected) Arterial Blood 30.7 L pCO2 (Temp correct) Arterial Blood 130.6 H pO2 (Temp corrected) Arterial Blood 19.3 L HCO3 Arterial Blood -4.8 L Base Excess Arterial Blood 98.2 H Oxygen Saturatio n Mauri Test ACCEPTAB Arterial Blood Right Radial Gas Puncture Site Arterial 0.6 Blood Carboxyhem oglobin Arterial Blood 0.1 Methemoglobin Blood Gas A-a O2 47.2 H Differential Oxyhemoglobin 97.5 Percent Blood Gas 37.0 Temperature Blood Gas Actual 18 Respiration Rate Blood Gas NASAL CANNULA Modality FiO2 30.0 Blood Gas D OLEKSANDR [employer] Notified Whom Blood Gas 06/25/2018 6:02:3 Notified Time 0 AM Test 06/25/18 06:08 06/25/18 06:50 06/25/18 07:20 06/25/18 08:00 Bedside Glucose 117 White Blood 8.0 # Count Red Blood Count 1.47 #L Hemoglobin 4.7 #*L 4.3 *L Hematocrit 14.5 #L 13.8 L Mean Corpuscular 98.6 Volume Mean Corpuscular 32.0 Hemoglobin Mean Corpuscular 32.4 Hemoglobin Tosha nt Red Cell 17.8 H Distribution Width Platelet Count 148 Mean Platelet 9.9 Volume Immature 0.600 H Granulocytes % Neutrophils % 74.8 Lymphocytes % 18.5 Monocytes % 6.0 Eosinophils % 0.0 Basophils % 0.1 Nucleated Red 0.0 Blood Cells % Immature 0.050 H Granulocytes # Neutrophils # 6.0 Lymphocytes # 1.5 Monocytes # 0.5 Eosinophils # 0.0 Basophils # 0.0 Nucleated Red 0.0 Blood Cells # Sodium Level 140 Potassium Level 5.2 H Chloride Level 102 Carbon Dioxide 24 Level Anion Gap 14 H Blood Urea 19 Nitrogen Creatinine 3.06 H Est Glomerular 21 L Filtrat Rate mL/min Glucose Level 128 Calcium Level 8.0 L Phosphorus Level 4.1 Magnesium Level 2.2 Test 06/25/18 09:16 White Blood 10.6 # Count Red Blood Count 1.38 L Hemoglobin 4.4 *L Hematocrit 13.9 L Mean Corpuscular 100.7 Volume Mean Corpuscular 31.9 Hemoglobin Mean Corpuscular 31.7 L Hemoglobin Tosha nt Red Cell 18.0 H Distribution Width Platelet Count 158 Mean Platelet 10.8 H Volume Immature 0.500 H Granulocytes % Neutrophils % 83.7 H Lymphocytes % 9.2 L Monocytes % 6.5 Eosinophils % 0.0 Basophils % 0.1 Nucleated Red 0.0 Blood Cells % Immature 0.050 H Granulocytes # Neutrophils # 8.9 H Lymphocytes # 1.0 Monocytes # 0.7 Eosinophils # 0.0 Basophils # 0.0 Nucleated Red 0.0 Blood Cells # Exam/Review of Systems Exam Vitals Vital Signs Date Temp Pulse Resp B/P (MAP) Pulse Ox O2 O2 Flow FiO2 Time Delivery Rate 06/25/18 122 18 80/64 (69) 100 Nasal 06:30 Cannula 06/25/18 3.0 06:11 06/25/18 97.8 04:00 06/24/18 21 04:05 Intake and Output 06/24/18 06/24/18 06/25/18 1515:00 23:00 07:00 IntakeIntake Total 50 ml 580 ml 652.875 ml OutputOutput Total 2600 ml 0 ml BalanceBalance -2550 ml 580 ml 652.875 ml Results Results 24hrs Laboratory Tests Test 06/24/18 11:36 06/24/18 11:58 06/24/18 15:24 06/25/18 05:50 Prothrombin Time 15.0 H Prothrombin Time 1.2 Ratio INR 1.17 International Normalized Ratio Activated 32.8 Partial Thrombop last Time Creatine Kinase 22 L Creatine Kinase 4.1 Index Creatinine 0.91 Kinase MB (Mass) Troponin I < 0.012 Bedside Glucose 106 Body Fluid Type THORACENTESIS F LUID Body Fluid 1025.0 Volume Body Fluid Color RED Body Fluid BLOODY Appearance Body Fluid WBC 372 Body Fluid RBC 749714 (Auto) Body Fluid 30.6 Polynuclear WBCs (%) Body Fluid 69.4 Mononuclear Cells % Auto Body Fluid 229 Lactate Dehydrog enase Blood Gas Blood arterial Specimen Source Arterial Blood 06/25/2018 5:55:0 Date Drawn 2 AM Arterial Blood 7.417 pH (Temp corrected) Arterial Blood 30.7 L pCO2 (Temp correct) Arterial Blood 130.6 H pO2 (Temp corrected) Arterial Blood 19.3 L HCO3 Arterial Blood -4.8 L Base Excess Arterial Blood 98.2 H Oxygen Saturatio n Mauri Test ACCEPTAB Arterial Blood Right Radial Gas Puncture Site Arterial 0.6 Blood Carboxyhem oglobin Arterial Blood 0.1 Methemoglobin Blood Gas A-a O2 47.2 H Differential Oxyhemoglobin 97.5 Percent Blood Gas 37.0 Temperature Blood Gas Actual 18 Respiration Rate Blood Gas NASAL CANNULA Modality FiO2 30.0 Blood Gas D [facility]DR [facility] Notified Whom Blood Gas 06/25/2018 6:02:3 Notified Time 0 AM Test 06/25/18 06:08 06/25/18 06:50 06/25/18 07:20 06/25/18 08:00 Bedside Glucose 117 White Blood 8.0 # Count Red Blood Count 1.47 #L Hemoglobin 4.7 #*L 4.3 *L Hematocrit 14.5 #L 13.8 L Mean Corpuscular 98.6 Volume Mean Corpuscular 32.0 Hemoglobin Mean Corpuscular 32.4 Hemoglobin Tosha nt Red Cell 17.8 H Distribution Width Platelet Count 148 Mean Platelet 9.9 Volume Immature 0.600 H Granulocytes % Neutrophils % 74.8 Lymphocytes % 18.5 Monocytes % 6.0 Eosinophils % 0.0 Basophils % 0.1 Nucleated Red 0.0 Blood Cells % Immature 0.050 H Granulocytes # Neutrophils # 6.0 Lymphocytes # 1.5 Monocytes # 0.5 Eosinophils # 0.0 Basophils # 0.0 Nucleated Red 0.0 Blood Cells # Sodium Level 140 Potassium Level 5.2 H Chloride Level 102 Carbon Dioxide 24 Level Anion Gap 14 H Blood Urea 19 Nitrogen Creatinine 3.06 H Est Glomerular 21 L Filtrat Rate mL/min Glucose Level 128 Calcium Level 8.0 L Phosphorus Level 4.1 Magnesium Level 2.2 Test 06/25/18 09:16 White Blood 10.6 # Count Red Blood Count 1.38 L Hemoglobin 4.4 *L Hematocrit 13.9 L Mean Corpuscular 100.7 Volume Mean Corpuscular 31.9 Hemoglobin Mean Corpuscular 31.7 L Hemoglobin Tosha nt Red Cell 18.0 H Distribution Width Platelet Count 158 Mean Platelet 10.8 H Volume Immature 0.500 H Granulocytes % Neutrophils % 83.7 H Lymphocytes % 9.2 L Monocytes % 6.5 Eosinophils % 0.0 Basophils % 0.1 Nucleated Red 0.0 Blood Cells % Immature 0.050 H Granulocytes # Neutrophils # 8.9 H Lymphocytes # 1.0 Monocytes # 0.7 Eosinophils # 0.0 Basophils # 0.0 Nucleated Red 0.0 Blood Cells # Medications Medication Current Medications IV Flush (NS 3 ml) 3 ml PER PROTOCOL IV ; Start 06/24/18 at 06:00 Ondansetron HCl (Zofran Inj) 4 mg Q6H PRN IV NAUSEA/VOMITING; Start 06/24/18 at 06:00 Acetaminophen (Tylenol Tab) 650 mg Q6H PRN PO .PAIN 1-3 OR TEMP; Start 06/24/18 at 06:00 Acetaminophen/ Hydrocodone Bitart (Bonsall (5/325)) 1 tab Q6H PRN PO .PAIN 4-6; Start 06/24/18 at 06:00 Diphenhydramine HCl (Benadryl) 50 mg Q6 PRN PO ITCHING; Start 06/24/18 at 06:00 Docusate Sodium (Colace) 200 mg QHS PO ; Start 06/24/18 at 21:00 Hydralazine HCl (Apresoline) 50 mg BID PRN PO ELEVATED BLOOD PRESSURE; Start 06/24/18 at 06:00 Acetaminophen/ Hydrocodone Bitart (Bonsall (5/325)) 2 tab Q6 PRN PO SEVERE PAIN LEVEL 7-10 Last administered on 06/24/18at 12:15; Admin Dose 2 TAB; Start 06/24/18 at 06:00 Levalbuterol (Xopenex Hfa) 2 puff Q4H RESP THERAPY PRN INH WHEEZING AND SOB; Start 06/24/18 at 06:00 Levothyroxine Sodium (Synthroid) 75 mcg BEFORE BREAKFAST PO Last administered on 06/24/18at 06:17; Admin Dose 75 MCG; Start 06/24/18 at 07:00 Mirtazapine (Remeron) 7.5 mg HS PO Last administered on 06/24/18at 21:49; Admin Dose 7.5 MG; Start 06/24/18 at 21:00 Multivit/Ca Carb/ B Cmplx/FA/Prenat (Chely-Maribel) 1 tab DAILY PO Last ad ministered on 06/24/18at 14:03; Admin Dose 1 TAB; Start 06/24/18 at 09:00 Nifedipine (Procardia Xl) 90 mg BID PO Last administered on 06/24/18at 14:03; Admin Dose 90 MG; Start 06/24/18 at 09:00 Nitroglycerin (Nitroglycerin (Sl Tab) 0.4 Mg) 1 tab Q5M PRN SL CHEST PAIN; Start 06/24/18 at 06:00 Pantoprazole (Protonix Tab) 40 mg DAILY@0600 PO Last administered on 06/24/18 06:17; Admin Dose 40 MG; Start 06/24/18 at 06:00 Ranitidine HCl (Zantac) 150 mg DAILY PO Last administered on 06/24/18 14:04; Admin Dose 150 MG; Start 06/24/18 at 09:00 Sevelamer Carbonate (Renvela) 1,600 mg WITH MEALS PO Last administered on 06/24/18 18:06; Admin Dose 1,600 MG; Start 06/24/18 at 07:55 Tamsulosin HCl (Flomax) 0.4 mg HS PO Last administered on 06/24/18 21:49; Admin Dose 0.4 MG; Start 06/24/18 at 21:00 Miscellaneous Information 1 drp BID RIGHT EYE ; Start 06/24/18 at 09:00; Status UNV Calcium Carbonate (Caltrate-600) 600 mg DAILY PO Last administered on 06/24/18at 14:03; Admin Dose 600 MG; Start 06/24/18 at 09:00 Cefepime HCl 50 ml @ 100 mls/hr Q24H IVPB Last administered on 06/24/18at 14:00; Admin Dose 100 MLS/HR; Start 06/24/18 at 11:00 Albumin Human 100 ml @ 100 mls/hr DURING DIALYSIS PRN IV HYPOTENSION DURING HD; Start 06/24/18 at 09:30 Morphine Sulfate (morphine) 2 mg Q4H PRN IV SEVERE PAIN LEVEL 7-10; Start 06/24/18 at 15:30 Norepinephrine 250 ml @ 1.875 mls/ hr TITRATE IV Last administered on 06/25/18 08:22; Admin Dose 56.25 MLS/HR; Start 06/25/18 at 03:00 Phenylephrine HCl 40 mg/Dextrose 250 ml @ 37.5 mls/hr TITRATE IV Last administered on 06/25/18 07:24; Admin Dose 93.75 MLS/HR; Start 06/25/18 at 05:00 Phenylephrine HCl 250 ml @ 75 mls/hr TITRATE IV Last administered on 2/1/19at 06:34; Admin Dose 187.5 MLS/HR; Start 06/25/18 at 06:30 Sodium Chloride 1,000 ml @ 75 mls/hr [id number] IV ; Start 06/25/18 at 08:00 RAMON PUENTES Jun 25, 2018 10:03
[2018-06-25] MEDS: ONDANSETRON 4 MG INJ IV PRN ×2 (11:44→16:38)
[2018-06-25] MEDS: morphine 4 MG/ML VIAL IV PRN ×3 (11:45→23:23)
[2018-06-25] MEDS ORDERED: MIDAZOLAM 1 MG/ML 2 ML INJ ONE (11:56)
[2018-06-25] MEDS ORDERED: morphine 4 MG/ML VIAL IV STA (12:00)
[2018-06-25] MEDS ORDERED: MIDAZOLAM 1 MG/ML 2 ML INJ IV ONE (12:00)
--- NOTE | 2018-06-25 14:59 | RADRPT ---
Echocardiogram Report Patient Name: VAHE SEPULVEDAPatient ID: [id number] : 1960 (58y 4m)Study Date: 06/25/2018 1:13:48 PM Gender: MAccession #: [id number] Tech: PR Location: Ref.Physician: GIOVANNI ODELL Height(Cm): BSA: Weight(Kg): Quality: AdequateAccount #: Procedures: Echocardiographic Report: Transthoracic echocardiogram with complete 2D, M-Mode, and doppler examination. Indications: Chest Pain. Measurements: 2D/M Mode Doppler Measurement Value Normal Range Measurement Value Normal Range LVIDd 2D 3.2 [ 4.2 - 5.8 ] cm AV Peak Devin 1.3 [ 100.0 - 170.0 ] cm/sec LVIDs 2D 2.3 [ 2.5 - 4.0 ] cm AV Peak PG 7.0 [ 2.0 - 9.0 ] mmHg LVPWd 2D 1.4 [ 0.6 - 1.0 ] cm LVOT Peak Devin 1.1 [ 70.0 - 110.0 ] cm/sec IVSd 2D 1.5 [ 0.6 - 1.0 ] cm LVOT Peak PG 5.0 [ 2.0 - 6.0 ] mmHg IVS/LVPW 2D 1.1 ratio TR Peak Devin 2.7 [ 100.0 - 280.0 ] cm/sec AoR Diam 2D 2.9 [ 2.6 - 3.4 ] cm TR Peak PG 29.0 mmHg LA/Ao 2D 0 ratio RVSP 32.0 [ 10.0 - 36.0 ] mmHg EDV 2D 40.3 [ 62.0 - 150.0 ] ml RA Pressure 3.0 mmHg ESV 2D 18.9 [ 21.0 - 61.0 ] ml EF 2D 53.1 [ 52.0 - 72.0 ] percent LA Dimen 2D 1.2 [ 3.0 - 4.0 ] cm Findings: Left Ventricle: Hyperdynamic left ventricular systolic function. Severe concentric left ventricular hypertrophy. Reduced left ventricular cavity size. Ejection fraction is visually estimated at 70 %. Right Ventricle: Normal right ventricular size. Normal right ventricular systolic function. Left Atrium: The left atrium is normal in size. Right Atrium: The right atrium is normal in size. Mitral Valve: Mild mitral annular calcification. Trace mitral regurgitation. Aortic Valve: Normal appearance of the aortic valve. No significant aortic stenosis or insufficiency. Tricuspid Valve: Normal appearance and function of the tricuspid valve with trace physiologic regurgitation. Normal right ventricular systolic pressure. Estimated peak PA systolic pressure 32 mmHg. Pulmonic Valve: Pulmonic valve not well visualized. Pericardium: Trivial pericardial effusion. Aorta: Normal aortic root. IVC: Normal size and normal respiratory collapse consistent with normal right atrial pressure. Conclusions: Hyperdynamic left ventricular systolic function. Severe concentric left ventricular hypertrophy. Reduced left ventricular cavity size. Ejection fraction is visually estimated at 70 %. Electronically Signed By: Jasbir Bella 2018-06-25 14:58:55 PST
[2018-06-25] MEDS ORDERED: PHENYLephrine 40 MG in DEXTROSE 5% 246 ML IV SCH (16:30)
--- NOTE | 2018-06-25 16:49 | CONS ---
Assessment/Plan Assessment/Plan Hospital Course (Demo Recall) Assessment: Hypovolemic shock - from blood loss Acute on chronic anemia Left hemothorax - likely from thoracentesis, status post chest tube placement 06/25/2018 Pleural effusions - status post left thoracentesis 06/24/2018 Chest pain - ruled out for myocardial infarction, possibly pleuritic History of pericardial effusion - trivial on current echocardiogram Severe concentric left ventricular hypertrophy - ? amyloidosis or other infiltrative cardiomyopathy Hypertension Diabetes mellitus Hypothyroidism End-stage renal disease, on hemodialysis History of hepatitis Recommendations: -pressors to keep MAP>65 -additional pRBC transfusions as needed -echocardiogram showed LVEF 70%, severe LVH Consultation Date/Type/Reason Admit Date/Time Jun 24, 2018 at 03:48 Initial Consult Date 06/25/18 Type of Consult Cardiology Date/Time of Note DATE: 06/25/18 TIME: 16:43 24 HR Interval Summary Free Text/Dictation Developed hypotension, severe anemia (Hgb down to 4.3.), and left hemithorax opacification on chest x-ray. Found to have left hemothorax. Transferred to ICU, started on pressors, transfused pRBCs, and left chest tube placed. Echocardiogram reviewed. Detailed Summary Additional Comments 14 point review of systems without changes. Exam/Review of Systems Vital Signs Vitals Vital Signs Date Temp Pulse Resp B/P (MAP) Pulse Ox O2 O2 Flow FiO2 Time Delivery Rate 06/25/18 125 19 84/63 (70) Nasal 14:00 Cannula 06/25/18 100 13:00 06/25/18 3.0 12:00 06/25/18 97.7 07:00 06/24/18 21 04:05 Intake and Output 06/24/18 06/24/18 06/25/18 1515:00 23:00 07:00 IntakeIntake Total 50 ml 580 ml 652.875 ml OutputOutput Total 2600 ml 0 ml BalanceBalance -2550 ml 580 ml 652.875 ml Exam Exam Constitutional: alert, well developed Psych: no complaints; No nl mood/affect Head: normocephalic, atraumatic Eyes: nl conjunctiva, nl lids Neck: supple, non-tender Respiratory: diminished breath sounds; No wheezing Cardiovascular: regular rate and rhythm Gastrointestinal: soft, non-tender Musculoskeletal: nl extremities to inspection Extremities: No cyanosis, No clubbing Labs Result Diagram: 06/25/18 1317 06/25/18 0720 Results 24hrs Laboratory Tests Test 06/25/18 05:50 06/25/18 06:08 06/25/18 06:50 06/25/18 07:20 Blood Gas Specimen Blood arterial Source Arterial Blood 06/25/2018 5:55:02 Date Drawn AM Arterial Blood pH 7.417 (Temp corrected) Arterial Blood 30.7 L pCO2 (Temp correct) Arterial Blood pO2 130.6 H (Temp corrected) Arterial Blood 19.3 L HCO3 Arterial Blood -4.8 L Base Excess Arterial Blood 98.2 H Oxygen Saturation Mauri Test ACCEPTAB Arterial Blood Gas Right Radial Puncture Site Arterial 0.6 Blood Carboxyhemog lobin Arterial Blood 0.1 Methemoglobin Blood Gas A-a O2 47.2 H Differential Oxyhemoglobin 97.5 Percent Blood Gas 37.0 Temperature Blood Gas Actual 18 Respiration Rate Blood Gas Modality NASAL CANNULA FiO2 30.0 Blood Gas Notified Anurag OLEKSANDR ALEXANDERP Whom Blood Gas Notified 06/25/2018 6:02:30 Time AM Bedside Glucose 117 White Blood Count 8.0 # Red Blood Count 1.47 #L Hemoglobin 4.7 #*L Hematocrit 14.5 #L Mean Corpuscular 98.6 Volume Mean Corpuscular 32.0 Hemoglobin Mean Corpuscular 32.4 Hemoglobin Concent Red Cell 17.8 H Distribution Width Platelet Count 148 Mean Platelet 9.9 Volume Immature 0.600 H Granulocytes % Neutrophils % 74.8 Segmented 77 Neutrophils % (Manual) Band Neutrophils % 1 (Manual) Lymphocytes % 18.5 Lymphocytes % 20 (Manual) Monocytes % 6.0 Monocytes % 2 (Manual) Eosinophils % 0.0 Basophils % 0.1 Nucleated Red 0.0 Blood Cells % Immature 0.050 H Granulocytes # Neutrophils # 6.0 Neutrophils # 6.2 (Manual) Band Neutrophils # 0.0 Lymphocytes 1.6 (Manual) Lymphocytes # 1.5 Monocytes # 0.5 Monocytes # 0.1 L (Manual) Eosinophils # 0.0 Basophils # 0.0 Nucleated Red 0.0 Blood Cells # Platelet Estimate NORMAL Giant Platelets 1 H Polychromasia 1+ Hypochromasia 1+ Anisocytosis 1+ Macrocytosis 1+ Sodium Level 140 Potassium Level 5.2 H Chloride Level 102 Carbon Dioxide 24 Level Anion Gap 14 H Blood Urea 19 Nitrogen Creatinine 3.06 H Est Glomerular 21 L Filtrat Rate mL/min Glucose Level 128 Calcium Level 8.0 L Phosphorus Level 4.1 Magnesium Level 2.2 Test 06/25/18 08:00 06/25/18 09:16 06/25/18 13:17 Hemoglobin 4.3 *L 4.4 *L 8.1 #L Hematocrit 13.8 L 13.9 L 25.1 #L White Blood Count 10.6 # 10.9 H Red Blood Count 1.38 L 2.64 #L Mean Corpuscular 100.7 95.1 Volume Mean Corpuscular 31.9 30.7 Hemoglobin Mean Corpuscular 31.7 L 32.3 Hemoglobin Concent Red Cell 18.0 H 15.1 H Distribution Width Platelet Count 158 124 #L Mean Platelet 10.8 H 10.8 H Volume Immature 0.500 H 0.500 H Granulocytes % Neutrophils % 83.7 H 84.0 H Lymphocytes % 9.2 L 9.0 L Monocytes % 6.5 6.4 Eosinophils % 0.0 0.0 Basophils % 0.1 0.1 Nucleated Red 0.0 0.0 Blood Cells % Immature 0.050 H 0.050 H Granulocytes # Neutrophils # 8.9 H 9.2 H Lymphocytes # 1.0 1.0 Monocytes # 0.7 0.7 Eosinophils # 0.0 0.0 Basophils # 0.0 0.0 Nucleated Red 0.0 0.0 Blood Cells # Medications Medications Current Medications IV Flush (NS 3 ml) 3 ml PER PROTOCOL IV ; Start 06/24/18 at 06:00 Ondansetron HCl (Zofran Inj) 4 mg Q6H PRN IV NAUSEA/VOMITING Last administered on 06/25/18at 16:38; Admin Dose 4 MG; Start 06/24/18 at 06:00 Acetaminophen (Tylenol Tab) 650 mg Q6H PRN PO .PAIN 1-3 OR TEMP; Start 06/24/18 at 06:00 Acetaminophen/ Hydrocodone Bitart (Ophelia (5/325)) 1 tab Q6H PRN PO .PAIN 4-6; Start 06/24/18 at 06:00 Diphenhydramine HCl (Benadryl) 50 mg Q6 PRN PO ITCHING; Start 06/24/18 at 06:00 Docusate Sodium (Colace) 200 mg QHS PO ; Start 06/24/18 at 21:00 Hydralazine HCl (Apresoline) 50 mg BID PRN PO ELEVATED BLOOD PRESSURE; Start 06/24/18 at 06:00 Acetaminophen/ Hydrocodone Bitart (Ophelia (5/325)) 2 tab Q6 PRN PO SEVERE PAIN LEVEL 7-10 Last administered on 06/24/18 12:15; Admin Dose 2 TAB; Start 06/24/18 at 06:00 Levalbuterol (Xopenex Hfa) 2 puff Q4H RESP THERAPY PRN INH WHEEZING AND SOB; Start 06/24/18 at 06:00 Levothyroxine Sodium (Synthroid) 75 mcg BEFORE BREAKFAST PO Last administered on 06/24/18 06:17; Admin Dose 75 MCG; Start 06/24/18 at 07:00 Mirtazapine (Remeron) 7.5 mg HS PO Last administered on 06/24/18 21:49; Admin Dose 7.5 MG; Start 06/24/18 at 21:00 Multivit/Ca Carb/ B Cmplx/FA/Prenat (Chely-Maribel) 1 tab DAILY PO Last administered on 06/24/18 14:03; Admin Dose 1 TAB; Start 06/24/18 at 09:00 Nifedipine (Procardia Xl) 90 mg BID PO Last administered on 06/24/18 14:03; Admin Dose 90 MG; Start 06/24/18 at 09:00; Status Hold Nitroglycerin (Nitroglycerin (Sl Tab) 0.4 Mg) 1 tab Q5M PRN SL CHEST PAIN; Start 06/24/18 at 06:00 Pantoprazole (Protonix Tab) 40 mg DAILY@0600 PO Last administered on 06/24/18 06:17; Admin Dose 40 MG; Start 06/24/18 at 06:00 Ranitidine HCl (Zantac) 150 mg DAILY PO Last administered on 06/24/18 14:04; Admin Dose 150 MG; Start 06/24/18 at 09:00 Sevelamer Carbonate (Renvela) 1,600 mg WITH MEALS PO Last administered on 06/24/18 18:06; Admin Dose 1,600 MG; Start 06/24/18 at 07:55 Tamsulosin HCl (Flomax) 0.4 mg HS PO Last administered on 1/31/19at 21:49; Admin Dose 0.4 MG; Start 06/24/18 at 21:00; Status Hold Miscellaneous Information 1 drp BID RIGHT EYE ; Start 06/24/18 at 09:00; Status UNV Calcium Carbonate (Caltrate-600) 600 mg DAILY PO Last administered on 06/24/18at 14:03; Admin Dose 600 MG; Start 06/24/18 at 09:00 Cefepime HCl 50 ml @ 100 mls/hr Q24H IVPB Last administered on 06/24/18at 14:00; Admin Dose 100 MLS/HR; Start 06/24/18 at 11:00 Albumin Human 100 ml @ 100 mls/hr DURING DIALYSIS PRN IV HYPOTENSION DURING HD; Start 06/24/18 at 09:30 Morphine Sulfate (morphine) 2 mg Q4H PRN IV SEVERE PAIN LEVEL 7-10 Last administered on 06/25/18at 11:45; Admin Dose 2 MG; Start 06/24/18 at 15:30 Norepinephrine 250 ml @ 1.875 mls/ hr TITRATE IV Last administered on 06/25/18at 13:53; Admin Dose 56.25 MLS/HR; Start 06/25/18 at 03:00 Phenylephrine HCl 40 mg/Dextrose 250 ml @ 37.5 mls/hr TITRATE IV Last administered on 06/25/18at 10:36; Admin Dose 90 MLS/HR; Start 06/25/18 at 05:00 Phenylephrine HCl 250 ml @ 75 mls/hr TITRATE IV Last administered on 06/25/18at 06:34; Admin Dose 187.5 MLS/HR; Start 06/25/18 at 06:30; Stop 06/25/18 at 17:30 Sodium Chloride 1,000 ml @ 75 mls/hr [id number] IV Last administered on 06/25/18at 08:00; Admin Dose 75 MLS/HR; Start 06/25/18 at 08:00 Phenylephrine HCl 40 mg/Dextrose 250 ml @ 37.5 mls/hr TITRATE IV ; Start 06/25/18 at 16:30 WILFRID MOREL MD Jun 25, 2018 16:49
[2018-06-25] MEDS ORDERED: traMADol-APAP 37.5-325 1 TAB PO PRN (17:00)
[2018-06-25] MEDS: VASOPRESSIN 60 UNIT in DEXTROSE 5% 57 ML IV SCH (17:50)
[2018-06-25] MEDS ORDERED: ALBUMIN HUMAN 25% 50 ML IV SCH (18:00)
[2018-06-25] MEDS: CEFEPIME 1GM/50 ML (PMX) 50 ML IVPB SCH (18:03)
--- NOTE | 2018-06-25 19:24 | OPR ---
Date/Time of Note Date/Time of Note DATE: 06/25/18 TIME: 19:23 Operative Report Procedure Date: Jun 25, 2018 Preoperative Diagnosis Left hemothorax Postoperative Diagnosis Left pneumothorax Operation/Procedure Performed 32 Tamazight chest tube placement Surgeon see signature line Insurance Verify Rep None Anesthesia Type: MAC Estimated Blood Loss: minimal Transfusion none Specimen None Grafts/Implants none Tubes/Drains Left 32 Tamazight chest Complications none Disposition: PACU, other Procedure Description Patient was placed in the supine position with left side up timeout was called antibiotics was given response comp occasions alternative therapies explained to the patient through a pharmaceutical service representative 1% lidocaine was discharged the operation for local anesthesia I made a 1 cm incision left sixth intercostal space incision was taken down to subcutaneous tissue which was then opened using Metzenbaum scissors access was gained into the pleural cavity 32 Tamazight chest tube was advanced into the pleural cavity secured to skin using 2-0 silk sutures 1 L of bloody fluid was drained patient tolerated procedure well FRANCO CASTELAN MD Jun 25, 2018 19:24
--- NOTE | 2018-06-25 19:42 | CONS ---
DATE OF ADMISSION: 06/24/2018 DATE OF CONSULTATION: REASON FOR CONSULTATION: Evaluation for a left hemothorax. HISTORY OF PRESENT ILLNESS: This is a 58-year-old male admitted because of left-sided chest pain and was found to have a left-sided pleural effusion and underwent thoracentesis, subsequently dropped hi s hemoglobin down to 4 and was found to have a large left hemothorax. PAST MEDICAL HISTORY: Hypertension, benign prostatic hypertrophy, hypothyroidism, end-stage renal di sease. PAST SURGICAL HISTORY: None. ALLERGIES: NONE. SOCIAL HISTORY: No smoking, drinking or drug use. MEDICATION LIST: Reviewed. PHYSICAL EXAMINATION: GENERAL: The patient is awake, alert, responds appropriately. VITAL SIGNS: Blood pressure is 92/69, respirations 18, saturations 100% on 2 liters of oxygen. HEENT: Normocephalic, atraumatic. PERRLA. NECK: Supple. No JVD, no carotid bruits. CARDIOVASCULAR: Regular rate and rhythm. LUNGS: Have diminished breath sounds on the left side. ABDOMEN: Soft, nontender, nondistended. EXTREMITIES: Warm. IMPRESSION: Left pleural effusion. RECOMMENDATIONS: We will proceed with a left chest tube. Risks, benefits, complications, alternativ e therapies were explained to the patient through a top steep tender. All questions were answered. Dictated By: FRANCO CASTELAN MD FM/ERICKA Conf#: [id number] DID#: [id number] CC: GIOVANNI ODELL MD; RAMON PUENTES MD; WILFRID MOREL MD;*EndCC*
[2018-06-25] MEDS ORDERED: PHYTONADIONE 5 MG in DEXTROSE 5% 50 ML IVPB ONE (20:00)
[2018-06-25] MEDS: MEGESTROL (40 MG/ML) 10ML CUP PO SCH (20:32)
[2018-06-25] MEDS: DOCUSATE SODIUM 100 MG CAP PO SCH (20:32)
[2018-06-25] MEDS: MIRTAZAPINE 15 MG TAB PO SCH (20:32)
[2018-06-25] MEDS: PHENYLephrine 160 MG in DEXTROSE 5% 484 ML IV SCH (20:57)
[2018-06-26] VITALS (95 sets, daily range): BP systolic 69–154; BP diastolic 54–95; PULSE 74–95; RESP 8–24
[2018-06-26] MEDS: SOD CHLORIDE 0.9% 1,000 ML IV SCH ×2 (02:02→15:05)
[2018-06-26] MEDS: morphine 4 MG/ML VIAL IV PRN ×4 (04:44→20:47)
[2018-06-26] MEDS: VASOPRESSIN 60 UNIT in DEXTROSE 5% 57 ML IV SCH ×2 (05:30→17:24)
[2018-06-26] MEDS: LEVOTHYROXINE 75 MCG TAB PO SCH (06:20)
[2018-06-26] MEDS: PANTOPRAZOLE (EC) 40 MG TAB PO SCH (06:20)
[2018-06-26] MEDS: MEGESTROL (40 MG/ML) 10ML CUP PO SCH ×2 (08:16→20:36)
[2018-06-26] MEDS: SEVELAMER CARBONATE 800 MG TABLET PO SCH ×3 (08:16→17:25)
[2018-06-26] MEDS: MULTIVIT/CA CARB/B CMPLX/FA TAB PO SCH (08:16)
[2018-06-26] MEDS: CALCIUM CARBONATE (600 MG CA) TAB PO SCH (08:16)
[2018-06-26] MEDS: RANITIDINE 150 MG TAB PO SCH (08:16)
--- NOTE | 2018-06-26 08:17 | CONS ---
Assessment/Plan Assessment/Plan Assessment/Plan (Daily) Patient is currently on phenylephrine drip at 220 mics per minute. Assessment recommendations; 1. Patient admitted with mild shortness of breath, underwent thoracentesis with development of large left hemothorax, requiring chest tube placement. Patient currently getting blood transfusion. 2. End-stage renal disease, on hemodialysis. 3. Persistent hypotension, possibly some element of sepsis. Requiring pressor support. 4. History of BPH and hypertension. Continue current supportive care. Hemodialysis per morning news producer. Patient will be transfused 2 more units of packed RBCs. Monitor H&H. Consultation Date/Type/Reason Admit Date/Time Jun 24, 2018 at 03:48 Initial Consult Date 06/25/18 Type of Consult Pulmonary/critical care Patient is a 58-year-old male who came into the hospital complains of shortness of breath. Upon evaluation patient was found to be severely anemic. Patient also was hypotensive requiring ICU admission. Patient is currently on 2 pressors Levophed and Bonilla-Synephrine. Patient is however completely awake and alert and denies any chest pain, fever, shortness of breath. Past medical history; 1. History of chronic renal failure, on hemodialysis. 2. History of anemia. 3. History of hypothyroidism. 4. History of hypertension. 5. BPH. Medications; reviewed. Allergies; none. Social history; no history any smoking alcohol or drug abuse. Family history; noncontributory. Occupational history; patient is on disability. Review of systems; denies any headache, visual changes. Any seizures. Patient denies any chest pain. Any coughing, wheezing, sputum production. Shortness of breath has slightly improved after undergoing thoracentesis. Denies any abdominal pain, nausea vomiting. Any melena or hematochezia. Patient is essentially anuric. Denies any orthopnea. General exam; middle-aged male, awake and alert. Currently no distress. Laying comfortably in bed. Date/Time of Note DATE: 06/26/18 TIME: 08:14 24 HR Interval Summary Free Text/Dictation Patient's condition remains critical. Patient however has improved hemodynamically. Still requiring pressor support though. Underwent left-sided chest tube placement with continued drainage of hemorrhagic effusion. Patient denies any shortness or, chest pain, fever. General exam; middle-aged male, awake alert, currently in no distress. Exam/Review of Systems Exam Vitals Vital Signs Date Temp Pulse Resp B/P (MAP) Pulse Ox O2 O2 Flow FiO2 Time Delivery Rate 06/26/18 98.4 85 14 104/89 100 Nasal 08:00 (94) Cannula 06/26/18 2.0 07:43 06/24/18 21 04:05 Intake and Output 06/25/18 06/25/18 06/26/18 1414:59 22:59 06:59 IntakeIntake Total 1483.625 ml 2569.725 ml 2380.6 ml OutputOutput Total 0 ml 368 ml 1350 ml BalanceBalance 1483.625 ml 2201.725 ml 1030.6 ml Exam HEENT exam; supple neck, no JVD. No lymphadenopathy. Midline trachea. No thyromegaly. Patient does have carious teeth. Chest exam; right lung is clear to auscultation with diminished breath sounds left lung. Left side chest tube in place. S1-S2 audible, no murmurs. Regular rhythm. Abdomen exam; soft, no organomegaly. Bowel sounds audible. Extremity exam; no peripheral edema or clubbing. SENIOR CARE ASSISTANT exam; no focal deficit. Results Result Diagram: 06/26/18 0545 06/26/18 0545 Results 24hrs Laboratory Tests Test 06/25/18 09:16 06/25/18 13:17 06/25/18 17:12 06/25/18 22:32 White Blood Count 10.6 # 10.9 H Red Blood Count 1.38 L 2.64 #L Hemoglobin 4.4 *L 8.1 #L 6.4 #*L Hematocrit 13.9 L 25.1 #L 19.8 #L Mean Corpuscular 100.7 95.1 Volume Mean Corpuscular 31.9 30.7 Hemoglobin Mean Corpuscular 31.7 L 32.3 Hemoglobin Concent Red Cell 18.0 H 15.1 H Distribution Width Platelet Count 158 124 #L 128 #L Mean Platelet 10.8 H 10.8 H Volume Immature 0.500 H 0.500 H Granulocytes % Neutrophils % 83.7 H 84.0 H Lymphocytes % 9.2 L 9.0 L Monocytes % 6.5 6.4 Eosinophils % 0.0 0.0 Basophils % 0.1 0.1 Nucleated Red Blood 0.0 0.0 Cells % Immature 0.050 H 0.050 H Granulocytes # Neutrophils # 8.9 H 9.2 H Lymphocytes # 1.0 1.0 Monocytes # 0.7 0.7 Eosinophils # 0.0 0.0 Basophils # 0.0 0.0 Nucleated Red Blood 0.0 0.0 Cells # Prothrombin Time 23.4 #H Prothrombin Time 1.8 Ratio INR International 2.07 Normalized Ratio Activated 40.5 H Partial Thromboplas t Time Thrombin Time 18.7 Fibrinogen 136.0 #L D-Dimer 911.09 H D-Dimer Comment Test 06/26/18 00:15 06/26/18 05:03 06/26/18 05:45 Hemoglobin 6.1 *L 6.6 *L Hematocrit 18.2 L 19.6 L Lab Scanned Report BLOOD TRANSFUSION White Blood Count 2.1 #L Red Blood Count 2.24 L Mean Corpuscular 87.5 Volume Mean Corpuscular 29.5 Hemoglobin Mean Corpuscular 33.7 Hemoglobin Concent Red Cell 13.9 Distribution Width Platelet Count 59 #L Mean Platelet 11.3 H Volume Immature 0.500 H Granulocytes % Neutrophils % 72.6 Lymphocytes % 21.5 Monocytes % 4.9 Eosinophils % 0.0 Basophils % 0.5 Nucleated Red Blood 0.0 Cells % Immature 0.010 Granulocytes # Neutrophils # 1.5 L Lymphocytes # 0.4 L Monocytes # 0.1 L Eosinophils # 0.0 Basophils # 0.0 Nucleated Red Blood 0.0 Cells # Prothrombin Time Pending Prothrombin Time 1.4 Ratio INR International 1.48 Normalized Ratio Activated 40.7 H Partial Thromboplas t Time Thrombin Time 18.5 Sodium Level 136 Potassium Level 4.8 Chloride Level 107 Carbon Dioxide 23 Level Anion Gap 6 # Blood Urea Nitrogen 20 Creatinine 2.99 H Est Glomerular 22 L Filtrat Rate mL/min Glucose Level 134 Calcium Level 6.9 L Phosphorus Level 5.0 H Magnesium Level 1.7 Medications Medication Current Medications IV Flush (NS 3 ml) 3 ml PER PROTOCOL IV ; Start 06/24/18 at 06:00 Ondansetron HCl (Zofran Inj) 4 mg Q6H PRN IV NAUSEA/VOMITING Last administered on 06/25/18at 16:38; Admin Dose 4 MG; Start 06/24/18 at 06:00 Acetaminophen (Tylenol Tab) 650 mg Q6H PRN PO .PAIN 1-3 OR TEMP; Start 06/24/18 at 06:00 Acetaminophen/ Hydrocodone Bitart ([place] (5/325)) 1 tab Q6H PRN PO .PAIN 4-6 Last administered on 06/25/18 18:17; Admin Dose 1 TAB; Start 06/24/18 at 06:00 Diphenhydramine HCl (Benadryl) 50 mg Q6 PRN PO ITCHING; Start 06/24/18 at 06:00 Docusate Sodium (Colace) 200 mg QHS PO ; Start 06/24/18 at 21:00 Hydralazine HCl (Apresoline) 50 mg BID PRN PO ELEVATED BLOOD PRESSURE; Start at 06:00 Acetaminophen/ Hydrocodone Bitart ([place] (5/325)) 2 tab Q6 PRN PO SEVERE PAIN LEVEL 7-10 Last administered on 06/24/18 12:15; Admin Dose 2 TAB; Start 06/24/18 at 06:00 Levalbuterol (Xopenex Hfa) 2 puff Q4H RESP THERAPY PRN INH WHEEZING AND SOB; Start 06/24/18 at 06:00 Levothyroxine Sodium (Synthroid) 75 mcg BEFORE BREAKFAST PO Last administered on 06/26/18 06:20; Admin Dose 75 MCG; Start 06/24/18 at 07:00 Mirtazapine (Remeron) 7.5 mg HS PO Last administered on 06/25/18 20:32; Admin Dose 7.5 MG; Start 06/24/18 at 21:00 Multivit/Ca Carb/ B Cmplx/FA/Prenat ([place]-Maribel) 1 tab DAILY PO Last administered on 06/24/18 14:03; Admin Dose 1 TAB; Start 06/24/18 at 09:00 Nifedipine (Procardia Xl) 90 mg BID PO Last administered on 06/24/18 14:03; Admin Dose 90 MG; Start 06/24/18 at 09:00; Status Hold Nitroglycerin (Nitroglycerin (Sl Tab) 0.4 Mg) 1 tab Q5M PRN SL CHEST PAIN; Start 06/24/18 at 06:00 Pantoprazole (Protonix Tab) 40 mg DAILY@0600 PO Last administered on 06/26/18 06:20; Admin Dose 40 MG; Start 06/24/18 at 06:00 Ranitidine HCl (Zantac) 150 mg DAILY PO Last administered on 06/24/18 14:04; Admin Dose 150 MG; Start 06/24/18 at 09:00 Sevelamer Carbonate (Renvela) 1,600 mg WITH MEALS PO Last administered on 06/24/18 18:06; Admin Dose 1,600 MG; Start 06/24/18 at 07:55 Tamsulosin HCl (Flomax) 0.4 mg HS PO Last administered on 06/24/18 21:49; Admin Dose 0.4 MG; Start 06/24/18 at 21:00; Status Hold Miscellaneous Information 1 drp BID RIGHT EYE ; Start 06/24/18 at 09:00; Status UNV Calcium Carbonate (Caltrate-600) 600 mg DAILY PO Last administered on 06/24/18 14:03; Admin Dose 600 MG; Start 06/24/18 at 09:00 Cefepime HCl 50 ml @ 100 mls/hr Q24H IVPB Last administered on 06/25/18 18:03; Admin Dose 100 MLS/HR; Start 06/24/18 at 11:00 Albumin Human 100 ml @ 100 mls/hr DURING DIALYSIS PRN IV HYPOTENSION DURING HD; Start 06/24/18 at 09:30 Morphine Sulfate (morphine) 2 mg Q4H PRN IV SEVERE PAIN LEVEL 7-10 Last administered on 06/26/18 04:44; Admin Dose 2 MG; Start 06/24/18 at 15:30 Norepinephrine 250 ml @ 1.875 mls/ hr TITRATE IV Last administered on 06/25/18 18:50; Admin Dose 28.125 MLS/HR; Start 06/25/18 at 03:00 Sodium Chloride 1,000 ml @ 75 mls/hr [id number] IV Last administered on 06/26/18 02:02; Admin Dose 75 MLS/HR; Start 06/25/18 at 08:00 Tramadol HCl (Ultracet) 2 tab Q6H PRN PO MODERATE PAIN LEVEL 4-6; Start 06/25/18 at 17:00 Megestrol Acetate (Megace Susp) 400 mg BID PO Last administered on 06/25/18 20:32; Admin Dose 400 MG; Start 2/1/19 at 21:00 Vasopressin 60 unit/Dextrose 60 ml @ 1.2 mls/hr Q12H IV Last administered on 06/25/18at 17:50; Admin Dose 2.4 MLS/HR; Start 06/25/18 at 17:30 Phenylephrine HCl 160 mg/Dextrose 500 ml @ 18.75 mls/ hr TITRATE IV Last administered on 06/25/18at 20:57; Admin Dose 46.88 MLS/HR; Start 06/25/18 at 18:00 FADY MACEDO Jun 26, 2018 08:17
[2018-06-26] MEDS ORDERED: CEFEPIME 1GM/50 ML (PMX) 50 ML IVPB SCH ×2 (09:00→11:00)
[2018-06-26] MEDS: NON-FORMULARY/PATIENT OWN MED (Atropine Sulfate/0.9 %Sod Chlr (Atropine 0.01%-Ns Eye Drops RIGHT EYE SCH ×3 (09:00→20:37)
--- NOTE | 2018-06-26 10:38 | PN ---
Date/Time of Note Date/Time of Note DATE: 06/26/18 TIME: 10:33 Assessment/Plan VTE Prophylaxis Risk score (from Ns)>0 risk: 7 SCD applied (from [facility] [place]): Yes Pharmacological prophylaxis: NA/contraindicated Pharm contraindication: bleeding Assessment/Plan Hospital Course 1. Recurrent chest pain -Secondary to effusions and or musculoskeletal -patient has ruled out for ACS, cardiology following 2. Mild resp distress with arthur pleural effusions -s/p l sided thoracentesis with drainage of 1L -post thoracentesis complication of hemothorax, s.p bedside L chest tube drainage -serial CXRs -continue CT and underwater seal, management per CTS 3. Hypovolemic shock 2/2 acute blood loss -wean off pressors as tolerated -patient got PRBCS, needs a bit of volume, will gently give IVF 4. Severe anemia -acute on chronic 2/2 blood loss -s/p transfusion of 3 units PRBC emergently, -Transfusion today 5. Abdominal pain with diarrhea: resolved -Patient has a history of C. difficile colitis -CT abdomen/pelvis nondiagnostic -Stool studies including C. difficile are negative -No empiric antibiotic at this time 6. ESRD on HD: Nephrology for dialysis (Stephanie Garza) 7. Hypertension: Adjust antihypertensive as needed, currently hypotensive on pressors 6. BPH: Continue home med 7. Hypothyroidism: Continue Synthroid 8. moderate pericardial effusion -f/u echo Prophylaxis: SCDs Dispo: -continue ICU care and support, wean off pressors, serial h/h. Result Diagram: 06/26/18 0545 06/26/18 0545 Results 24hrs Laboratory Tests Test 06/25/18 13:17 06/25/18 17:12 06/25/18 22:32 06/26/18 00:15 White Blood Count 10.9 H Red Blood Count 2.64 #L Hemoglobin 8.1 #L 6.4 #*L 6.1 *L Hematocrit 25.1 #L 19.8 #L 18.2 L Mean Corpuscular 95.1 Volume Mean Corpuscular 30.7 Hemoglobin Mean Corpuscular 32.3 Hemoglobin Concent Red Cell 15.1 H Distribution Width Platelet Count 124 #L 128 #L Mean Platelet 10.8 H Volume Immature 0.500 H Granulocytes % Neutrophils % 84.0 H Lymphocytes % 9.0 L Monocytes % 6.4 Eosinophils % 0.0 Basophils % 0.1 Nucleated Red Blood 0.0 Cells % Immature 0.050 H Granulocytes # Neutrophils # 9.2 H Lymphocytes # 1.0 Monocytes # 0.7 Eosinophils # 0.0 Basophils # 0.0 Nucleated Red Blood 0.0 Cells # Prothrombin Time 23.4 #H Prothrombin Time 1.8 Ratio INR International 2.07 Normalized Ratio Activated 40.5 H Partial Thromboplas t Time Thrombin Time 18.7 Fibrinogen 136.0 #L D-Dimer 911.09 H D-Dimer Comment Test 06/26/18 05:03 06/26/18 05:45 Lab Scanned Report BLOOD TRANSFUSION White Blood Count 2.1 #L Red Blood Count 2.24 L Hemoglobin 6.6 *L Hematocrit 19.6 L Mean Corpuscular 87.5 Volume Mean Corpuscular 29.5 Hemoglobin Mean Corpuscular 33.7 Hemoglobin Concent Red Cell 13.9 Distribution Width Platelet Count 59 #L Mean Platelet 11.3 H Volume Immature 0.500 H Granulocytes % Neutrophils % 72.6 Lymphocytes % 21.5 Monocytes % 4.9 Eosinophils % 0.0 Basophils % 0.5 Nucleated Red Blood 0.0 Cells % Immature 0.010 Granulocytes # Neutrophils # 1.5 L Lymphocytes # 0.4 L Monocytes # 0.1 L Eosinophils # 0.0 Basophils # 0.0 Nucleated Red Blood 0.0 Cells # Prothrombin Time 18.0 #H Prothrombin Time 1.4 Ratio INR International 1.48 Normalized Ratio Activated 40.7 H Partial Thromboplas t Time Thrombin Time 18.5 Sodium Level 136 Potassium Level 4.8 Chloride Level 107 Carbon Dioxide 23 Level Anion Gap 6 # Blood Urea Nitrogen 20 Creatinine 2.99 H Est Glomerular 22 L Filtrat Rate mL/min Glucose Level 134 Calcium Level 6.9 L Phosphorus Level 5.0 H Magnesium Level 1.7 Subjective 24 Hr Interval Summary Constitutional: no complaints Exam/Review of Systems Exam Vitals Vital Signs Date Temp Pulse Resp B/P (MAP) Pulse Ox O2 O2 Flow FiO2 Time Delivery Rate 06/26/18 83 18 99/78 (85) 100 Nasal 10:00 Cannula 06/26/18 98.4 08:00 06/26/18 2.0 07:43 06/24/18 21 04:05 Intake and Output 06/25/18 06/25/18 06/26/18 1515:00 23:00 07:00 IntakeIntake Total 1537.375 ml 2476.725 ml 2916.1 ml OutputOutput Total 448 ml 1270 ml BalanceBalance 1537.375 ml 2028.725 ml 1646.1 ml Constitutional: alert, oriented Respiratory: clear to auscultation Cardiovascular: regular rate and rhythm Gastrointestinal: soft; No distended Musculoskeletal: nl extremities to inspection Results Results 24hrs Laboratory Tests Test 06/25/18 13:17 06/25/18 17:12 06/25/18 22:32 06/26/18 00:15 White Blood Count 10.9 H Red Blood Count 2.64 #L Hemoglobin 8.1 #L 6.4 #*L 6.1 *L Hematocrit 25.1 #L 19.8 #L 18.2 L Mean Corpuscular 95.1 Volume Mean Corpuscular 30.7 Hemoglobin Mean Corpuscular 32.3 Hemoglobin Concent Red Cell 15.1 H Distribution Width Platelet Count 124 #L 128 #L Mean Platelet 10.8 H Volume Immature 0.500 H Granulocytes % Neutrophils % 84.0 H Lymphocytes % 9.0 L Monocytes % 6.4 Eosinophils % 0.0 Basophils % 0.1 Nucleated Red Blood 0.0 Cells % Immature 0.050 H Granulocytes # Neutrophils # 9.2 H Lymphocytes # 1.0 Monocytes # 0.7 Eosinophils # 0.0 Basophils # 0.0 Nucleated Red Blood 0.0 Cells # Prothrombin Time 23.4 #H Prothrombin Time 1.8 Ratio INR International 2.07 Normalized Ratio Activated 40.5 H Partial Thromboplas t Time Thrombin Time 18.7 Fibrinogen 136.0 #L D-Dimer 911.09 H D-Dimer Comment Test 06/26/18 05:03 06/26/18 05:45 Lab Scanned Report BLOOD TRANSFUSION White Blood Count 2.1 #L Red Blood Count 2.24 L Hemoglobin 6.6 *L Hematocrit 19.6 L Mean Corpuscular 87.5 Volume Mean Corpuscular 29.5 Hemoglobin Mean Corpuscular 33.7 Hemoglobin Concent Red Cell 13.9 Distribution Width Platelet Count 59 #L Mean Platelet 11.3 H Volume Immature 0.500 H Granulocytes % Neutrophils % 72.6 Lymphocytes % 21.5 Monocytes % 4.9 Eosinophils % 0.0 Basophils % 0.5 Nucleated Red Blood 0.0 Cells % Immature 0.010 Granulocytes # Neutrophils # 1.5 L Lymphocytes # 0.4 L Monocytes # 0.1 L Eosinophils # 0.0 Basophils # 0.0 Nucleated Red Blood 0.0 Cells # Prothrombin Time 18.0 #H Prothrombin Time 1.4 Ratio INR International 1.48 Normalized Ratio Activated 40.7 H Partial Thromboplas t Time Thrombin Time 18.5 Sodium Level 136 Potassium Level 4.8 Chloride Level 107 Carbon Dioxide 23 Level Anion Gap 6 # Blood Urea Nitrogen 20 Creatinine 2.99 H Est Glomerular 22 L Filtrat Rate mL/min Glucose Level 134 Calcium Level 6.9 L Phosphorus Level 5.0 H Magnesium Level 1.7 Medications Medication Current Medications IV Flush (NS 3 ml) 3 ml PER PROTOCOL IV ; Start 06/24/18 at 06:00 Ondansetron HCl (Zofran Inj) 4 mg Q6H PRN IV NAUSEA/VOMITING Last administered on 06/25/18at 16:38; Admin Dose 4 MG; Start 06/24/18 at 06:00 Acetaminophen (Tylenol Tab) 650 mg Q6H PRN PO .PAIN 1-3 OR TEMP; Start 06/24/18 at 06:00 Acetaminophen/ Hydrocodone Bitart ([place] (5/325)) 1 tab Q6H PRN PO .PAIN 4-6 Last administered on 06/25/18at 18:17; Admin Dose 1 TAB; Start 06/24/18 at 06:00 Diphenhydramine HCl (Benadryl) 50 mg Q6 PRN PO ITCHING; Start 06/24/18 at 06:00 Docusate Sodium (Colace) 200 mg QHS PO ; Start 06/24/18 at 21:00 Hydralazine HCl (Apresoline) 50 mg BID PRN PO ELEVATED BLOOD PRESSURE; Start 06/24/18 at 06:00 Acetaminophen/ Hydrocodone Bitart ([place] (5/325)) 2 tab Q6 PRN PO SEVERE PAIN LEVEL 7-10 Last administered on 06/24/18at 12:15; Admin Dose 2 TAB; Start 06/24/18 at 06:00 Levalbuterol (Xopenex Hfa) 2 puff Q4H RESP THERAPY PRN INH WHEEZING AND SOB; Start 06/24/18 at 06:00 Levothyroxine Sodium (Synthroid) 75 mcg BEFORE BREAKFAST PO Last administered on 06/26/18 06:20; Admin Dose 75 MCG; Start 06/24/18 at 07:00 Mirtazapine (Remeron) 7.5 mg HS PO Last administered on 06/25/18 20:32; Admin Dose 7.5 MG; Start 06/24/18 at 21:00 Multivit/Ca Carb/ B Cmplx/FA/Prenat (Chely-Maribel) 1 tab DAILY PO Last administered on 06/26/18 08:16; Admin Dose 1 TAB; Start 06/24/18 at 09:00 Nifedipine (Procardia Xl) 90 mg BID PO Last administered on 06/24/18 14:03; Admin Dose 90 MG; Start 06/24/18 at 09:00; Status Hold Nitroglycerin (Nitroglycerin (Sl Tab) 0.4 Mg) 1 tab Q5M PRN SL CHEST PAIN; Start 06/24/18 at 06:00 Pantoprazole (Protonix Tab) 40 mg DAILY@0600 PO Last administered on 06/26/18 06:20; Admin Dose 40 MG; Start 06/24/18 at 06:00 Ranitidine HCl (Zantac) 150 mg DAILY PO Last administered on 06/26/18 08:16; Admin Dose 150 MG; Start 06/24/18 at 09:00 Sevelamer Carbonate (Renvela) 1,600 mg WITH MEALS PO Last administered on 06/26/18 08:16; Admin Dose 1,600 MG; Start 06/24/18 at 07:55 Tamsulosin HCl (Flomax) 0.4 mg HS PO Last administered on 06/24/18 21:49; Admin Dose 0.4 MG; Start 06/24/18 at 21:00; Status Hold Miscellaneous Information 1 drp BID RIGHT EYE ; Start 06/24/18 at 09:00 Calcium Carbonate (Caltrate-600) 600 mg DAILY PO Last administered on 06/24/18 14:03; Admin Dose 600 MG; Start 06/24/18 at 09:00 Albumin Human 100 ml @ 100 mls/hr DURING DIALYSIS PRN IV HYPOTENSION DURING HD; Start 06/24/18 at 09:30 Morphine Sulfate (morphine) 2 mg Q4H PRN IV SEVERE PAIN LEVEL 7-10 Last administered on 2/2/19at 04:44; Admin Dose 2 MG; Start 06/24/18 at 15:30 Norepinephrine 250 ml @ 1.875 mls/ hr TITRATE IV Last administered on 06/25/18at 18:50; Admin Dose 28.125 MLS/HR; Start 06/25/18 at 03:00 Sodium Chloride 1,000 ml @ 75 mls/hr [id number] IV Last administered on 06/26/18at 02:02; Admin Dose 75 MLS/HR; Start 06/25/18 at 08:00 Tramadol HCl (Ultracet) 2 tab Q6H PRN PO MODERATE PAIN LEVEL 4-6; Start 06/25/18 at 17:00 Megestrol Acetate (Megace Susp) 400 mg BID PO Last administered on 06/26/18at 08:16; Admin Dose 400 MG; Start 06/25/18 at 21:00 Vasopressin 60 unit/Dextrose 60 ml @ 1.2 mls/hr Q12H IV Last administered on 06/25/18at 17:50; Admin Dose 2.4 MLS/HR; Start 06/25/18 at 17:30 Phenylephrine HCl 160 mg/Dextrose 500 ml @ 18.75 mls/ hr TITRATE IV Last administered on 06/25/18at 20:57; Admin Dose 46.88 MLS/HR; Start 06/25/18 at 18:00 Cefepime HCl 50 ml @ 100 mls/hr Q24H IVPB ; Start 06/26/18 at 11:00 JUDSON TREVINO Jun 26, 2018 10:38
[2018-06-26] MEDS: PHENYLephrine 160 MG in DEXTROSE 5% 484 ML IV SCH ×2 (11:28→20:59)
--- NOTE | 2018-06-26 11:51 | PN ---
DATE: 06/26/2018 SUBJECTIVE: The patient remains critically ill. The patient's chest tubes in place. The patient co ntinues to receive PRBC blood transfusions. The patient is scheduled for dialysis today. OBJECTIVE: VITAL SIGNS: Blood pressure 77/64, respiration 12, pulse 84, temperature 98.6. HEENT: Head is normocephalic. NECK: Supple. HEART: Regular rate. LUNGS: Show diminished breath sounds at the base. ABDOMEN: Soft, nontender to palpation without rebound or guarding. EXTREMITIES: Negative for clubbing, cyanosis, no edema. DERMATOLOGIC: No rashes. MUSCULOSKELETAL: No joint effusion. NEUROLOGIC: No change in exam. MEDICATIONS: Reviewed. LABORATORY DATA: Shows sodium 136, potassium 4.8, BUN 20, creatinine 2.99. White count 2.1, hemoglo bin 6.6, platelet count is 61. ASSESSMENT AND PLAN: 1. End-stage renal disease. The patient is scheduled for dialysis today. We will dialyze for 3 riya rs, 3k bath, no ultrafiltration. 2. Anemia. The patient had a significant decline in hemoglobin due to hemothorax. The patient is r eceiving blood transfusions, continue. Continue Epogen. 3. Mineral bone disorder. Monitor calcium and phosphorus levels. 4. Left hemothorax. The patient is status post chest tube. Continues to have ongoing bleeding. Co ntinue to monitor. Follow up with pulmonary. 5. Shock. Etiology is likely hemodynamic secondary to acute blood loss, questionable sepsis. [place] PRBC blood transfusion. Continue IV fluids. Continue pressor support. 6. Abdominal pain. Continue to monitor. 7. Hypothyroidism. Continue Synthroid. 8. History of benign prostatic hypertrophy. 9. History of hypertension. The patient had hypotensive shock as stated above. Please note I spent over 30 minutes of critical care time with this patient. Dictated By: NAE MENDOZA DO NR/NTS Conf#: [id number] DID#: [id number] CC: GIOVANNI ODELL MD;*EndCC*
--- NOTE | 2018-06-26 13:14 | PN ---
Date/Time of Note Date/Time of Note DATE: 06/26/18 TIME: 13:12 Assessment/Plan Assessment/Plan Assessment/Plan Status post chest tube placement Platelet transfusion Monitor hemoglobin levels improving We will continue chest tube suction Subjective 24 Hr Interval Summary Constitutional: improved Pain Control: mild Exam/Review of Systems Vital Signs Vitals Vital Signs Date Temp Pulse Resp B/P (MAP) Pulse Ox O2 O2 Flow FiO2 Time Delivery Rate 06/26/18 89 22 87/71 (76) 100 Nasal 11:30 Cannula 06/26/18 98.4 08:00 06/26/18 2.0 07:43 06/24/18 21 04:05 Intake and Output 06/25/18 06/25/18 06/26/18 1515:00 23:00 07:00 IntakeIntake Total 1537.375 ml 2476.725 ml 2916.1 ml OutputOutput Total 448 ml 1270 ml BalanceBalance 1537.375 ml 2028.725 ml 1646.1 ml Exam ENMT: nl external ears & nose, nl lips & teeth, nl nasal mucosa & septum, mucosa pink and moist Neck: supple, non-tender Respiratory: clear to auscultation, normal air movement Cardiovascular: regular rate and rhythm, nl pulses Gastrointestinal: soft, nl liver, spleen, non-tender Musculoskeletal: nl extremities to inspection, nl gait and stance Results Result Diagram: 06/26/18 1225 06/26/18 0545 FRANCO CASTELAN MD Jun 26, 2018 13:14
--- NOTE | 2018-06-26 16:16 | CONS ---
Assessment/Plan Assessment/Plan Hospital Course (Demo Recall) Assessment: Hypovolemic shock - from blood loss Acute on chronic anemia Left hemothorax - likely from thoracentesis, status post chest tube placement 06/25/2018 Pleural effusions - status post left thoracentesis 06/24/2018 Chest pain - ruled out for myocardial infarction, possibly pleuritic History of pericardial effusion - trivial on current echocardiogram Severe concentric left ventricular hypertrophy - ? amyloidosis or other infiltrative cardiomyopathy Hypertension Diabetes mellitus Hypothyroidism End-stage renal disease, on hemodialysis History of hepatitis Recommendations: -pressors to keep MAP>65, wean as tolerated -additional pRBC transfusions as needed -echocardiogram showed LVEF 70%, severe LVH Consultation Date/Type/Reason Admit Date/Time Jun 24, 2018 at 03:48 Initial Consult Date 06/25/18 Type of Consult Cardiology Date/Time of Note DATE: 06/26/18 TIME: 16:15 24 HR Interval Summary Free Text/Dictation On phenylephrine drip. Chest tube remains in place. Detailed Summary Additional Comments 14 point review of systems without changes. Exam/Review of Systems Vital Signs Vitals Vital Signs Date Temp Pulse Resp B/P (MAP) Pulse Ox O2 O2 Flow FiO2 Time Delivery Rate 06/26/18 91 16 108/75 100 Nasal 2.0 15:45 (86) Cannula 06/26/18 97.9 12:00 06/24/18 21 04:05 Intake and Output 06/25/18 06/25/18 06/26/18 1515:00 23:00 07:00 IntakeIntake Total 1537.375 ml 2476.725 ml 2916.1 ml OutputOutput Total 448 ml 1270 ml BalanceBalance 1537.375 ml 2028.725 ml 1646.1 ml Exam Exam Constitutional: alert, well developed Psych: no complaints; No nl mood/affect Head: normocephalic, atraumatic Eyes: nl conjunctiva, nl lids Neck: supple, non-tender Respiratory: diminished breath sounds; No wheezing Cardiovascular: regular rate and rhythm Gastrointestinal: soft, non-tender Musculoskeletal: nl extremities to inspection Extremities: No cyanosis, No clubbing Labs Result Diagram: 06/26/18 1225 06/26/18 0545 Results 24hrs Laboratory Tests Test 06/25/18 17:12 06/25/18 22:32 06/26/18 00:15 06/26/18 05:03 Hemoglobin 6.4 #*L 6.1 *L Hematocrit 19.8 #L 18.2 L Platelet Count 128 #L Prothrombin Time 23.4 #H Prothrombin Time 1.8 Ratio INR International 2.07 Normalized Ratio Activated 40.5 H Partial Thromboplas t Time Thrombin Time 18.7 Fibrinogen 136.0 #L D-Dimer 911.09 H D-Dimer Comment Lab Scanned Report BLOOD TRANSFUSION Test 06/26/18 05:45 06/26/18 12:25 White Blood Count 2.1 #L Red Blood Count 2.24 L Hemoglobin 6.6 *L 7.5 L Hematocrit 19.6 L 22.2 L Mean Corpuscular 87.5 Volume Mean Corpuscular 29.5 Hemoglobin Mean Corpuscular 33.7 Hemoglobin Concent Red Cell 13.9 Distribution Width Platelet Count 59 #L Mean Platelet 11.3 H Volume Immature 0.500 H Granulocytes % Neutrophils % 72.6 Lymphocytes % 21.5 Monocytes % 4.9 Eosinophils % 0.0 Basophils % 0.5 Nucleated Red Blood 0.0 Cells % Immature 0.010 Granulocytes # Neutrophils # 1.5 L Lymphocytes # 0.4 L Monocytes # 0.1 L Eosinophils # 0.0 Basophils # 0.0 Nucleated Red Blood 0.0 Cells # Prothrombin Time 18.0 #H Prothrombin Time 1.4 Ratio INR International 1.48 Normalized Ratio Activated 40.7 H Partial Thromboplas t Time Thrombin Time 18.5 Sodium Level 136 Potassium Level 4.8 Chloride Level 107 Carbon Dioxide 23 Level Anion Gap 6 # Blood Urea Nitrogen 20 Creatinine 2.99 H Est Glomerular 22 L Filtrat Rate mL/min Glucose Level 134 Calcium Level 6.9 L Phosphorus Level 5.0 H Magnesium Level 1.7 Medications Medications Current Medications IV Flush (NS 3 ml) 3 ml PER PROTOCOL IV ; Start 06/24/18 at 06:00 Ondansetron HCl (Zofran Inj) 4 mg Q6H PRN IV NAUSEA/VOMITING Last administered on 06/25/18at 16:38; Admin Dose 4 MG; Start 06/24/18 at 06:00 Acetaminophen (Tylenol Tab) 650 mg Q6H PRN PO .PAIN 1-3 OR TEMP; Start 06/24/18 at 06:00 Acetaminophen/ Hydrocodone Bitart ([place] (5/325)) 1 tab Q6H PRN PO .PAIN 4-6 Last administered on 06/25/18 18:17; Admin Dose 1 TAB; Start 06/24/18 at 06:00 Diphenhydramine HCl (Benadryl) 50 mg Q6 PRN PO ITCHING; Start 06/24/18 at 06:00 Docusate Sodium (Colace) 200 mg QHS PO ; Start 06/24/18 at 21:00 Hydralazine HCl (Apresoline) 50 mg BID PRN PO ELEVATED BLOOD PRESSURE; Start 06/24/18 at 06:00 Acetaminophen/ Hydrocodone Bitart ([place] (5/325)) 2 tab Q6 PRN PO SEVERE PAIN LEVEL 7-10 Last administered on 06/24/18 12:15; Admin Dose 2 TAB; Start 06/24/18 at 06:00 Levalbuterol (Xopenex Hfa) 2 puff Q4H RESP THERAPY PRN INH WHEEZING AND SOB; Start 06/24/18 at 06:00 Levothyroxine Sodium (Synthroid) 75 mcg BEFORE BREAKFAST PO Last administered on 06/26/18 06:20; Admin Dose 75 MCG; Start 06/24/18 at 07:00 Mirtazapine (Remeron) 7.5 mg HS PO Last administered on 06/25/18 20:32; Admin Dose 7.5 MG; Start 06/24/18 at 21:00 Multivit/Ca Carb/ B Cmplx/FA/Prenat ([place]-Maribel) 1 tab DAILY PO Last administered on 06/26/18 08:16; Admin Dose 1 TAB; Start 06/24/18 at 09:00 Nifedipine (Procardia Xl) 90 mg BID PO Last administered on 06/24/18 14:03; Admin Dose 90 MG; Start 06/24/18 at 09:00; Status Hold Nitroglycerin (Nitroglycerin (Sl Tab) 0.4 Mg) 1 tab Q5M PRN SL CHEST PAIN; Start 06/24/18 at 06:00 Pantoprazole (Protonix Tab) 40 mg DAILY@0600 PO Last administered on 06/26/18 06:20; Admin Dose 40 MG; Start 06/24/18 at 06:00 Ranitidine HCl (Zantac) 150 mg DAILY PO Last administered on 2/2/19at 08:16; Admin Dose 150 MG; Start 06/24/18 at 09:00 Sevelamer Carbonate (Renvela) 1,600 mg WITH MEALS PO Last administered on 06/26/18 08:16; Admin Dose 1,600 MG; Start 06/24/18 at 07:55 Tamsulosin HCl (Flomax) 0.4 mg HS PO Last administered on 06/24/18at 21:49; Admin Dose 0.4 MG; Start 06/24/18 at 21:00; Status Hold Miscellaneous Information 1 drp BID RIGHT EYE ; Start 06/24/18 at 09:00 Calcium Carbonate (Caltrate-600) 600 mg DAILY PO Last administered on 06/24/18at 14:03; Admin Dose 600 MG; Start 06/24/18 at 09:00 Albumin Human 100 ml @ 100 mls/hr DURING DIALYSIS PRN IV HYPOTENSION DURING HD; Start 06/24/18 at 09:30 Morphine Sulfate (morphine) 2 mg Q4H PRN IV SEVERE PAIN LEVEL 7-10 Last administered on 06/26/18 15:58; Admin Dose 2 MG; Start 06/24/18 at 15:30 Norepinephrine 250 ml @ 1.875 mls/ hr TITRATE IV Last administered on 06/25/18 18:50; Admin Dose 28.125 MLS/HR; Start 06/25/18 at 03:00 Sodium Chloride 1,000 ml @ 75 mls/hr [id number] IV Last administered on 06/26/18 15:05; Admin Dose 75 MLS/HR; Start 06/25/18 at 08:00 Tramadol HCl (Ultracet) 2 tab Q6H PRN PO MODERATE PAIN LEVEL 4-6; Start 06/25/18 at 17:00 Megestrol Acetate (Megace Susp) 400 mg BID PO Last administered on 06/26/18 08:16; Admin Dose 400 MG; Start 06/25/18 at 21:00 Vasopressin 60 unit/Dextrose 60 ml @ 1.2 mls/hr Q12H IV Last administered on 06/25/18 17:50; Admin Dose 2.4 MLS/HR; Start 06/25/18 at 17:30 Phenylephrine HCl 160 mg/Dextrose 500 ml @ 18.75 mls/ hr TITRATE IV Last administered on 06/26/18 11:28; Admin Dose 43.13 MLS/HR; Start 06/25/18 at 18:00 Cefepime HCl 50 ml @ 100 mls/hr Q24H IVPB Last administered on 06/26/18at 10:37; Admin Dose 100 MLS/HR; Start 06/26/18 at 11:00 WILFRID MOREL MD Jun 26, 2018 16:16
[2018-06-26] MEDS: DOCUSATE SODIUM 100 MG CAP PO SCH (20:36)
[2018-06-26] MEDS: MIRTAZAPINE 15 MG TAB PO SCH (20:36)
[2018-06-27] VITALS (111 sets, daily range): BP systolic 79–151; BP diastolic 57–93; PULSE 68–83; RESP 8–28
[2018-06-27] MEDS: morphine 4 MG/ML VIAL IV PRN ×4 (01:59→22:49)
[2018-06-27] MEDS: VASOPRESSIN 60 UNIT in DEXTROSE 5% 57 ML IV SCH ×2 (04:54→17:10)
[2018-06-27] MEDS: PANTOPRAZOLE (EC) 40 MG TAB PO SCH (05:30)
[2018-06-27] MEDS: SOD CHLORIDE 0.9% 1,000 ML IV SCH ×2 (05:30)
[2018-06-27] MEDS: LEVOTHYROXINE 75 MCG TAB PO SCH (06:11)
[2018-06-27] MEDS: SEVELAMER CARBONATE 800 MG TABLET PO SCH ×3 (07:50→17:10)
--- NOTE | 2018-06-27 07:56 | CONS ---
Assessment/Plan Assessment/Plan Assessment/Plan (Daily) Patient is currently on phenylephrine drip at 40 mics per minute. Assessment recommendations; 1. Patient admitted with mild shortness of breath underwent thoracentesis with development of significant left hemothorax requiring chest tube placement. Patient still having significant drainage with persistent anemia requiring multiple units of packed RBC confusion. 2. Chronic renal failure, on hemodialysis. 3. History of hypertension. 4. Persistent hypotension likely from severe blood loss. 5. Currently there is no evidence to indicate any ongoing infective process. Monitor H&H every 4 hours. Patient to be transfused blood if hematocrit drops below 8. Meanwhile stop cefepime. Consultation Date/Type/Reason Admit Date/Time Jun 24, 2018 at 03:48 Initial Consult Date 06/25/18 Type of Consult Pulmonary/critical care Patient is a 58-year-old male who came into the hospital complains of shortness of breath. Upon evaluation patient was found to be severely anemic. Patient also was hypotensive requiring ICU admission. Patient is currently on 2 pressors Levophed and Bonilla-Synephrine. Patient is however completely awake and alert and denies any chest pain, fever, shortness of breath. Past medical history; 1. History of chronic renal failure, on hemodialysis. 2. History of anemia. 3. History of hypothyroidism. 4. History of hypertension. 5. BPH. Medications; reviewed. Allergies; none. Social history; no history any smoking alcohol or drug abuse. Family history; noncontributory. Occupational history; patient is on disability. Review of systems; denies any headache, visual changes. Any seizures. Patient denies any chest pain. Any coughing, wheezing, sputum production. Shortness of breath has slightly improved after undergoing thoracentesis. Denies any abdominal pain, nausea vomiting. Any melena or hematochezia. Patient is essentially anuric. Denies any orthopnea. General exam; middle-aged male, awake and alert. Currently no distress. Laying comfortably in bed. Date/Time of Note DATE: 06/27/18 TIME: 07:54 24 HR Interval Summary Free Text/Dictation Patient's condition is critical but stable. Patient still requiring low-dose phenylephrine drip for hypotension. Improving though. Patient denies any chest pain, shortness of breath. General exam; middle-aged male, awake alert, having breakfast in bed. Currently no distress. Exam/Review of Systems Exam Vitals Vital Signs Date Temp Pulse Resp B/P (MAP) Pulse Ox O2 O2 Flow FiO2 Time Delivery Rate 06/27/18 77 15 102/70 100 Nasal 2.0 07:30 (81) Cannula 06/27/18 97.7 04:00 06/24/18 21 04:05 Intake and Output 06/26/18 06/26/18 06/27/18 1515:00 23:00 07:00 IntakeIntake Total 2393.51 ml 1838.73 ml 1163.40 ml OutputOutput Total 1300 ml 1070 ml 560 ml BalanceBalance 1093.51 ml 768.73 ml 603.40 ml Exam H EENT exam; supple neck, no JVD. No lymphadenopathy. Midline trachea. No thyromegaly. Patient has a multiple carious teeth. Chest exam; diminished breath sound left lung. Left side chest tube in place. Right lung is clear to auscultation. S1-S2 audible, no murmurs. Regular rhythm. There is significant continued drainage in the Pleur-evac chamber. Abdomen exam; soft, nontender. Nondistended. No organomegaly. Bowel sounds audible. Extremity exam; no peripheral edema clubbing. 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 Results Result Diagram: 06/27/18 0500 06/27/18 0500 Results 24hrs Laboratory Tests Test 06/26/18 12:25 06/26/18 18:00 06/26/18 20:52 06/27/18 01:45 Hemoglobin 7.5 L 5.2 #*L 8.9 #L Hematocrit 22.2 L 15.2 #L 26.5 #L Bedside Glucose 254 H White Blood Count 3.3 #L Red Blood Count 2.91 #L Mean Corpuscular Volume 91.1 Mean Corpuscular 30.6 Hemoglobin Mean Corpuscular 33.6 Hemoglobin Concent Red Cell Distribution 13.7 Width Platelet Count 74 #L Mean Platelet Volume 11.4 H Immature Granulocytes % 0.300 Neutrophils % 60.0 Lymphocytes % 26.2 Monocytes % 12.0 H Eosinophils % 0.9 Basophils % 0.6 Nucleated Red Blood 0.6 H Cells % Immature Granulocytes # 0.010 Neutrophils # 2.0 Lymphocytes # 0.9 Monocytes # 0.4 Eosinophils # 0.0 Basophils # 0.0 Nucleated Red Blood 0.0 Cells # Test 06/27/18 05:00 White Blood Count 3.5 L Red Blood Count 2.60 L Hemoglobin 7.9 L Hematocrit 23.5 L Mean Corpuscular Volume 90.4 Mean Corpuscular 30.4 Hemoglobin Mean Corpuscular 33.6 Hemoglobin Concent Red Cell Distribution 14.0 Width Platelet Count 70 L Mean Platelet Volume 11.3 H Immature Granulocytes % 0.300 Neutrophils % 59.6 Lymphocytes % 25.4 Monocytes % 12.1 H Eosinophils % 1.7 Basophils % 0.9 Nucleated Red Blood 0.0 Cells % Immature Granulocytes # 0.010 Neutrophils # 2.1 Lymphocytes # 0.9 Monocytes # 0.4 Eosinophils # 0.1 Basophils # 0.0 Nucleated Red Blood 0.0 Cells # Prothrombin Time 17.4 H Prothrombin Time Ratio 1.4 INR International 1.41 Normalized Ratio Activated 34.6 Partial Thromboplast Time Thrombin Time 16.5 Sodium Level 132 L Potassium Level 5.3 H Chloride Level 103 Carbon Dioxide Level 19 L Anion Gap 10 Blood Urea Nitrogen 25 H Creatinine 3.43 H Est Glomerular Filtrat 19 L Rate mL/min Glucose Level 229 H Calcium Level 6.6 L Phosphorus Level 5.2 H Magnesium Level 1.8 Medications Medication Current Medications IV Flush (NS 3 ml) 3 ml PER PROTOCOL IV ; Start 06/24/18 at 06:00 Ondansetron HCl (Zofran Inj) 4 mg Q6H PRN IV NAUSEA/VOMITING Last administered on 06/25/18at 16:38; Admin Dose 4 MG; Start 06/24/18 at 06:00 Acetaminophen (Tylenol Tab) 650 mg Q6H PRN PO .PAIN 1-3 OR TEMP; Start 06/24/18 at 06:00 Acetaminophen/ Hydrocodone Bitart ([place] (5/325)) 1 tab Q6H PRN PO .PAIN 4-6 Last administered on 06/25/18at 18:17; Admin Dose 1 TAB; Start 06/24/18 at 06:00 Diphenhydramine HCl (Benadryl) 50 mg Q6 PRN PO ITCHING; Start 06/24/18 at 06:00 Docusate Sodium (Colace) 200 mg QHS PO Last administered on 06/26/18at 20:36; Admin Dose 200 MG; Start 06/24/18 at 21:00 Hydralazine HCl (Apresoline) 50 mg BID PRN PO ELEVATED BLOOD PRESSURE; Start 06/24/18 at 06:00 Acetaminophen/ Hydrocodone Bitart ([place] (5/325)) 2 tab Q6 PRN PO SEVERE PAIN LEVEL 7-10 Last administered on 06/24/18 12:15; Admin Dose 2 TAB; Start 06/24/18 at 06:00 Levalbuterol (Xopenex Hfa) 2 puff Q4H RESP THERAPY PRN INH WHEEZING AND SOB; Start 06/24/18 at 06:00 Levothyroxine Sodium (Synthroid) 75 mcg BEFORE BREAKFAST PO Last administered on 06/27/18 06:11; Admin Dose 75 MCG; Start 06/24/18 at 07:00 Mirtazapine (Remeron) 7.5 mg HS PO Last administered on 06/26/18 20:36; Admin Dose 7.5 MG; Start 06/24/18 at 21:00 Multivit/Ca Carb/ B Cmplx/FA/Prenat ([place]-Maribel) 1 tab DAILY PO Last administered on 06/26/18 08:16; Admin Dose 1 TAB; Start 06/24/18 at 09:00 Nifedipine (Procardia Xl) 90 mg BID PO Last administered on 06/24/18 14:03; Admin Dose 90 MG; Start 06/24/18 at 09:00; Status Hold Nitroglycerin (Nitroglycerin (Sl Tab) 0.4 Mg) 1 tab Q5M PRN SL CHEST PAIN; Start 06/24/18 at 06:00 Pantoprazole (Protonix Tab) 40 mg DAILY@0600 PO Last administered on 06/27/18 05:30; Admin Dose 40 MG; Start 06/24/18 at 06:00 Ranitidine HCl (Zantac) 150 mg DAILY PO Last administered on 06/26/18 08:16; Admin Dose 150 MG; Start 06/24/18 at 09:00 Sevelamer Carbonate (Renvela) 1,600 mg WITH MEALS PO Last administered on 06/27/18 07:50; Admin Dose 1,600 MG; Start 06/24/18 at 07:55 Tamsulosin HCl (Flomax) 0.4 mg HS PO Last administered on 06/24/18 21:49; Admin Dose 0.4 MG; Start 06/24/18 at 21:00; Status Hold Miscellaneous Information 1 drp BID RIGHT EYE ; Start 06/24/18 at 09:00 Calcium Carbonate (Caltrate-600) 600 mg DAILY PO Last administered on 06/24/18at 14:03; Admin Dose 600 MG; Start 06/24/18 at 09:00 Albumin Human 100 ml @ 100 mls/hr DURING DIALYSIS PRN IV HYPOTENSION DURING HD; Start 06/24/18 at 09:30 Morphine Sulfate (morphine) 2 mg Q4H PRN IV SEVERE PAIN LEVEL 7-10 Last administered on 06/27/18 01:59; Admin Dose 2 MG; Start 06/24/18 at 15:30 Norepinephrine 250 ml @ 1.875 mls/ hr TITRATE IV Last administered on 06/25/18 18:50; Admin Dose 28.125 MLS/HR; Start 06/25/18 at 03:00 Sodium Chloride 1,000 ml @ 75 mls/hr [id number] IV Last administered on 06/27/18 05:30; Admin Dose 75 MLS/HR; Start 06/25/18 at 08:00 Tramadol HCl (Ultracet) 2 tab Q6H PRN PO MODERATE PAIN LEVEL 4-6; Start 06/25/18 at 17:00 Megestrol Acetate (Megace Susp) 400 mg BID PO Last administered on 06/26/18 20:36; Admin Dose 400 MG; Start 06/25/18 at 21:00 Vasopressin 60 unit/Dextrose 60 ml @ 1.2 mls/hr Q12H IV Last administered on 06/27/18 04:54; Admin Dose 1.2 MLS/HR; Start 06/25/18 at 17:30 Phenylephrine HCl 160 mg/Dextrose 500 ml @ 18.75 mls/ hr TITRATE IV Last a dministered on 06/26/18 20:59; Admin Dose 52.5 MLS/HR; Start 06/25/18 at 18:00 Cefepime HCl 50 ml @ 100 mls/hr Q24H IVPB Last administered on 06/26/18 10:37; Admin Dose 100 MLS/HR; Start 06/26/18 at 11:00 FADY MACEDO Jun 27, 2018 07:56
[2018-06-27] MEDS: MEGESTROL (40 MG/ML) 10ML CUP PO SCH ×2 (08:19→20:31)
[2018-06-27] MEDS: MULTIVIT/CA CARB/B CMPLX/FA TAB PO SCH (08:19)
[2018-06-27] MEDS: RANITIDINE 150 MG TAB PO SCH (08:19)
[2018-06-27] MEDS: CALCIUM CARBONATE (600 MG CA) TAB PO SCH (08:19)
[2018-06-27] MEDS: NON-FORMULARY/PATIENT OWN MED (Atropine Sulfate/0.9 %Sod Chlr (Atropine 0.01%-Ns Eye Drops RIGHT EYE SCH ×2 (08:23→20:34)
--- NOTE | 2018-06-27 11:53 | PN ---
Date/Time of Note Date/Time of Note DATE: 06/27/18 TIME: 11:52 Assessment/Plan Lines/Catheters IV Catheter Type (from Nrs): Central Line Assessment/Plan Assessment/Plan End-stage renal disease Status post permacath Plan for AV fistula placement Subjective 24 Hr Interval Summary Constitutional: no complaints, improved, ambulates, BM, flatus, urine output Exam/Review of Systems Vital Signs Vitals Vital Signs Date Temp Pulse Resp B/P (MAP) Pulse Ox O2 O2 Flow FiO2 Time Delivery Rate 06/27/18 76 20 103/71 100 Nasal 2.0 11:00 (82) Cannula 06/27/18 98.6 08:00 06/24/18 21 04:05 Intake and Output 06/26/18 06/26/18 06/27/18 1515:00 23:00 07:00 IntakeIntake Total 2393.51 ml 1838.73 ml 1163.40 ml OutputOutput Total 1300 ml 1070 ml 560 ml BalanceBalance 1093.51 ml 768.73 ml 603.40 ml Exam Eyes: nl conjunctiva, EOMI, nl lids, nl sclera ENMT: nl external ears & nose, nl lips & teeth, nl nasal mucosa & septum, mucosa pink and moist Neck: supple, non-tender Respiratory: clear to auscultation, normal air movement Results Result Diagram: 06/27/18 0500 06/27/18 0500 FRANCO CASTELAN MD Jun 27, 2018 11:53
--- NOTE | 2018-06-27 11:55 | PN ---
Date/Time of Note Date/Time of Note DATE: 06/27/18 TIME: 11:54 Assessment/Plan VTE Prophylaxis Risk score (from Ns)>0 risk: 8 [place]CD applied [place] [facility] Yes Pharmacological prophylaxis: NA/contraindicated Pharm contraindication: bleeding Assessment/Plan Hospital Course 1. Recurrent chest pain -Secondary to effusions and or musculoskeletal -patient has ruled out for ACS, cardiology following 2. Mild resp distress with arthur pleural effusions -s/p l sided thoracentesis with drainage of 1L -post thoracentesis complication of hemothorax, s.p bedside L chest tube drainage -serial CXRs -continue CT and underwater seal, management per CTS 3. Hypovolemic shock 2/2 acute blood loss -wean off pressors as tolerated -Continue transfusions as needed 4. Severe anemia -acute on chronic 2/2 blood loss -Continue transfusions as needed 5. Abdominal pain with diarrhea: resolved -Patient has a history of C. difficile colitis -CT abdomen/pelvis nondiagnostic -Stool studies including C. difficile are negative -No empiric antibiotic at this time 6. ESRD on HD: Nephrology for dialysis (Stephanie Garza) 7. Hypertension: Adjust antihypertensive as needed, currently hypotensive on pressors 6. BPH: Continue home med 7. Hypothyroidism: Continue Synthroid 8. moderate pericardial effusion -f/u echo Prophylaxis: SCDs Dispo: -continue ICU care and support, wean off pressors, serial h/h. Result Diagram: 06/27/18 0500 06/27/18 0500 Results 24hrs Laboratory Tests Test 06/26/18 12:25 06/26/18 18:00 06/26/18 20:52 06/27/18 01:45 Hemoglobin 7.5 L 5.2 #*L 8.9 #L Hematocrit 22.2 L 15.2 #L 26.5 #L Bedside Glucose 254 H White Blood Count 3.3 #L Red Blood Count 2.91 #L Mean Corpuscular Volume 91.1 Mean Corpuscular 30.6 Hemoglobin Mean Corpuscular 33.6 Hemoglobin Concent Red Cell Distribution 13.7 Width Platelet Count 74 #L Mean Platelet Volume 11.4 H Immature Granulocytes % 0.300 Neutrophils % 60.0 Lymphocytes % 26.2 Monocytes % 12.0 H Eosinophils % 0.9 Basophils % 0.6 Nucleated Red Blood 0.6 H Cells % Immature Granulocytes # 0.010 Neutrophils # 2.0 Lymphocytes # 0.9 Monocytes # 0.4 Eosinophils # 0.0 Basophils # 0.0 Nucleated Red Blood 0.0 Cells # Test 06/27/18 05:00 White Blood Count 3.5 L Red Blood Count 2.60 L Hemoglobin 7.9 L Hematocrit 23.5 L Mean Corpuscular Volume 90.4 Mean Corpuscular 30.4 Hemoglobin Mean Corpuscular 33.6 Hemoglobin Concent Red Cell Distribution 14.0 Width Platelet Count 70 L Mean Platelet Volume 11.3 H Immature Granulocytes % 0.300 Neutrophils % 59.6 Lymphocytes % 25.4 Monocytes % 12.1 H Eosinophils % 1.7 Basophils % 0.9 Nucleated Red Blood 0.0 Cells % Immature Granulocytes # 0.010 Neutrophils # 2.1 Lymphocytes # 0.9 Monocytes # 0.4 Eosinophils # 0.1 Basophils # 0.0 Nucleated Red Blood 0.0 Cells # Prothrombin Time 17.4 H Prothrombin Time Ratio 1.4 INR International 1.41 Normalized Ratio Activated 34.6 Partial Thromboplast Time Thrombin Time 16.5 Sodium Level 132 L Potassium Level 5.3 H Chloride Level 103 Carbon Dioxide Level 19 L Anion Gap 10 Blood Urea Nitrogen 25 H Creatinine 3.43 H Est Glomerular Filtrat 19 L Rate mL/min Glucose Level 229 H Calcium Level 6.6 L Phosphorus Level 5.2 H Magnesium Level 1.8 Subjective 24 Hr Interval Summary Constitutional: no complaints Exam/Review of Systems Exam Vitals Vital Signs Date Temp Pulse Resp B/P (MAP) Pulse Ox O2 O2 Flow FiO2 Time Delivery Rate 06/27/18 76 20 103/71 100 Nasal 2.0 11:00 (82) Cannula 06/27/18 98.6 08:00 06/24/18 21 04:05 Intake and Output 06/26/18 06/26/18 06/27/18 1414:59 22:59 06:59 IntakeIntake Total 2896.01 ml 1580.08 ml 1467.05 ml OutputOutput Total 1200 ml 1040 ml 660 ml BalanceBalance 1696.01 ml 540.08 ml 807.05 ml Constitutional: alert Respiratory: clear to auscultation Cardiovascular: regular rate and rhythm Gastrointestinal: soft; No distended Musculoskeletal: nl extremities to inspection Results Results 24hrs Laboratory Tests Test 06/26/18 12:25 06/26/18 18:00 2/2/19 20:52 06/27/18 01:45 Hemoglobin 7.5 L 5.2 #*L 8.9 #L Hematocrit 22.2 L 15.2 #L 26.5 #L Bedside Glucose 254 H White Blood Count 3.3 #L Red Blood Count 2.91 #L Mean Corpuscular Volume 91.1 Mean Corpuscular 30.6 Hemoglobin Mean Corpuscular 33.6 Hemoglobin Concent Red Cell Distribution 13.7 Width Platelet Count 74 #L Mean Platelet Volume 11.4 H Immature Granulocytes % 0.300 Neutrophils % 60.0 Lymphocytes % 26.2 Monocytes % 12.0 H Eosinophils % 0.9 Basophils % 0.6 Nucleated Red Blood 0.6 H Cells % Immature Granulocytes # 0.010 Neutrophils # 2.0 Lymphocytes # 0.9 Monocytes # 0.4 Eosinophils # 0.0 Basophils # 0.0 Nucleated Red Blood 0.0 Cells # Test 06/27/18 05:00 White Blood Count 3.5 L Red Blood Count 2.60 L Hemoglobin 7.9 L Hematocrit 23.5 L Mean Corpuscular Volume 90.4 Mean Corpuscular 30.4 Hemoglobin Mean Corpuscular 33.6 Hemoglobin Concent Red Cell Distribution 14.0 Width Platelet Count 70 L Mean Platelet Volume 11.3 H Immature Granulocytes % 0.300 Neutrophils % 59.6 Lymphocytes % 25.4 Monocytes % 12.1 H Eosinophils % 1.7 Basophils % 0.9 Nucleated Red Blood 0.0 Cells % Immature Granulocytes # 0.010 Neutrophils # 2.1 Lymphocytes # 0.9 Monocytes # 0.4 Eosinophils # 0.1 Basophils # 0.0 Nucleated Red Blood 0.0 Cells # Prothrombin Time 17.4 H Prothrombin Time Ratio 1.4 INR International 1.41 Normalized Ratio Activated 34.6 Partial Thromboplast Time Thrombin Time 16.5 Sodium Level 132 L Potassium Level 5.3 H Chloride Level 103 Carbon Dioxide Level 19 L Anion Gap 10 Blood Urea Nitrogen 25 H Creatinine 3.43 H Est Glomerular Filtrat 19 L Rate mL/min Glucose Level 229 H Calcium Level 6.6 L Phosphorus Level 5.2 H Magnesium Level 1.8 Medications Medication Current Medications IV Flush (NS 3 ml) 3 ml PER PROTOCOL IV ; Start 06/24/18 at 06:00 Ondansetron HCl (Zofran Inj) 4 mg Q6H PRN IV NAUSEA/VOMITING Last administered on 06/25/18 16:38; Admin Dose 4 MG; Start 06/24/18 at 06:00 Acetaminophen (Tylenol Tab) 650 mg Q6H PRN PO .PAIN 1-3 OR TEMP; Start 06/24/18 at 06:00 Acetaminophen/ Hydrocodone Bitart ([place] (5/325)) 1 tab Q6H PRN PO .PAIN 4-6 Last administered on 06/25/18 18:17; Admin Dose 1 TAB; Start 06/24/18 at 06:00 Diphenhydramine HCl (Benadryl) 50 mg Q6 PRN PO ITCHING; Start 06/24/18 at 06:00 Docusate Sodium (Colace) 200 mg QHS PO Last administered on 06/26/18 20:36; Admin Dose 200 MG; Start 06/24/18 at 21:00 Hydralazine HCl (Apresoline) 50 mg BID PRN PO ELEVATED BLOOD PRESSURE; Start 06/24/18 at 06:00 Acetaminophen/ Hydrocodone Bitart ([place] (5/325)) 2 tab Q6 PRN PO SEVERE PAIN LEVEL 7-10 Last administered on 06/24/18 12:15; Admin Dose 2 TAB; Start 06/24/18 at 06:00 Levalbuterol (Xopenex Hfa) 2 puff Q4H RESP THERAPY PRN INH WHEEZING AND SOB; Start 06/24/18 at 06:00 Levothyroxine Sodium (Synthroid) 75 mcg BEFORE BREAKFAST PO Last administered on 06/27/18 06:11; Admin Dose 75 MCG; Start 06/24/18 at 07:00 Mirtazapine (Remeron) 7.5 mg HS PO Last administered on 06/26/18 20:36; Admin Dose 7.5 MG; Start 06/24/18 at 21:00 Multivit/Ca Carb/ B Cmplx/FA/Prenat (Chely-Maribel) 1 tab DAILY PO Last administered on 06/27/18 08:19; Admin Dose 1 TAB; Start 06/24/18 at 09:00 Nifedipine (Procardia Xl) 90 mg BID PO Last administered on 06/24/18 14:03; Admin Dose 90 MG; Start 06/24/18 at 09:00; Status Hold Nitroglycerin (Nitroglycerin (Sl Tab) 0.4 Mg) 1 tab Q5M PRN SL CHEST PAIN; Start 06/24/18 at 06:00 Pantoprazole (Protonix Tab) 40 mg DAILY@0600 PO Last administered on 06/27/18 05:30; Admin Dose 40 MG; Start 06/24/18 at 06:00 Ranitidine HCl (Zantac) 150 mg DAILY PO Last administered on 06/27/18 08:19; Admin Dose 150 MG; Start 06/24/18 at 09:00 Sevelamer Carbonate (Renvela) 1,600 mg WITH MEALS PO Last administered on 06/27/18 11:23; Admin Dose 1,600 MG; Start 06/24/18 at 07:55 Tamsulosin HCl (Flomax) 0.4 mg HS PO Last administered on 06/24/18 21:49; Admin Dose 0.4 MG; Start 06/24/18 at 21:00; Status Hold Miscellaneous Information 1 drp BID RIGHT EYE ; Start 06/24/18 at 09:00 Calcium Carbonate (Caltrate-600) 600 mg DAILY PO Last administered on 06/27/18 08:19; Admin Dose 600 MG; Start 06/24/18 at 09:00 Albumin Human 100 ml @ 100 mls/hr DURING DIALYSIS PRN IV HYPOTENSION DURING HD; Start 06/24/18 at 09:30 Morphine Sulfate (morphine) 2 mg Q4H PRN IV SEVERE PAIN LEVEL 7-10 Last administered on 06/27/18 01:59; Admin Dose 2 MG; Start 06/24/18 at 15:30 Norepinephrine 250 ml @ 1.875 mls/ hr TITRATE IV Last administered on 06/25/18at 18:50; Admin Dose 28.125 MLS/HR; Start 06/25/18 at 03:00 Sodium Chloride 1,000 ml @ 75 mls/hr [id number] IV Last administered on 06/27/18 05:30; Admin Dose 75 MLS/HR; Start 06/25/18 at 08:00 Tramadol HCl (Ultracet) 2 tab Q6H PRN PO MODERATE PAIN LEVEL 4-6; Start 06/25/18 at 17:00 Megestrol Acetate (Megace Susp) 400 mg BID PO Last administered on 2/3/19at 08:19; Admin Dose 400 MG; Start 06/25/18 at 21:00 Vasopressin 60 unit/Dextrose 60 ml @ 1.2 mls/hr Q12H IV Last administered on 06/27/18at 04:54; Admin Dose 1.2 MLS/HR; Start 06/25/18 at 17:30 Phenylephrine HCl 160 mg/Dextrose 500 ml @ 18.75 mls/ hr TITRATE IV Last administered on 06/26/18at 20:59; Admin Dose 52.5 MLS/HR; Start 06/25/18 at 18:00 Desmopressin Acetate 15.4 mcg/ Sodium Chloride 53.85 ml @ 107.7 mls/ hr ONCE ONCE IVPB ; Start 06/27/18 at 12:00; Stop 06/27/18 at 12:29 JUDSON TREVINO Jun 27, 2018 11:55
--- NOTE | 2018-06-27 11:59 | PN ---
Date/Time of Note Date/Time of Note DATE: 06/27/18 TIME: 11:58 Assessment/Plan Assessment/Plan Assessment/Plan Status post left chest tube placed Coagulopathy is getting better We will continue chest tube suction Subjective 24 Hr Interval Summary Constitutional: no complaints, improved, ambulates, BM, flatus, urine output Pain Control: well controlled Exam/Review of Systems Vital Signs Vitals Vital Signs Date Temp Pulse Resp B/P (MAP) Pulse Ox O2 O2 Flow FiO2 Time Delivery Rate 06/27/18 76 20 103/71 100 Nasal 2.0 11:00 (82) Cannula 06/27/18 98.6 08:00 06/24/18 21 04:05 Intake and Output 06/26/18 06/26/18 06/27/18 1515:00 23:00 07:00 IntakeIntake Total 2393.51 ml 1838.73 ml 1163.40 ml OutputOutput Total 1300 ml 1070 ml 560 ml BalanceBalance 1093.51 ml 768.73 ml 603.40 ml Exam Eyes: nl conjunctiva, EOMI, nl lids, nl sclera ENMT: nl external ears & nose, nl lips & teeth, nl nasal mucosa & septum, mucosa pink and moist Neck: supple, non-tender Respiratory: clear to auscultation, normal air movement Cardiovascular: regular rate and rhythm, nl pulses Musculoskeletal: nl extremities to inspection, nl gait and stance Results Result Diagram: 06/27/18 0500 06/27/18 0500 FRANCO CASTELAN MD Jun 27, 2018 11:59
[2018-06-27] MEDS ORDERED: SOD CHLORIDE 0.9% IVPB ONE (12:00)
[2018-06-27] MEDS ORDERED: DESMOPRESSIN IVPB ONE (12:00)
--- NOTE | 2018-06-27 12:54 | PN ---
DATE: 06/27/2018 SUBJECTIVE: The patient remains critically ill on pressor support. The patient was unable to have h emodialysis yesterday due to hypertensive episodes. The patient has been receiving repeated PRBC blo od transfusions. No other events noted. OBJECTIVE: VITAL SIGNS: Blood pressure is 96/66, respirations 12, pulse 80, temperature 98.6. HEENT: Head is normocephalic. NECK: Supple. HEART: Regular rate. LUNGS: Show diminished breath sounds at the base. ABDOMEN: Soft, nontender to palpation. No rebound or guarding. EXTREMITIES: Negative for clubbing, cyanosis. No edema. CHEST: Positive chest tube. DERMATOLOGIC: No rashes. MUSCULOSKELETAL: No joint effusion. NEUROLOGIC: No change in exam. MEDICATIONS: Reviewed. LABORATORY DATA: Shows a white count of 3.5, hemoglobin 7.9. Platelet count is reviewed. Sodium 13 0, potassium 5.3, BUN 25, creatinine 3.43. The patient's cultures have been reviewed. Chest x-ray w as reviewed. Worsening pulmonary vascular congestion noted. ASSESSMENT AND PLAN: 1. End-stage renal disease. Will schedule for hemodialysis today. Will dialyze for 3 hours 2K bath , calcium 2.5, no ultrafiltration. 2. Anemia. The patient continues to have multiple blood transfusions due to ongoing bleeding from h emothorax. Will give the patient a dose of DDAVP for a component of uremic bleeding. Continue hemod ialysis. Continue Epogen. Will monitor closely. 3. Mineral bone disorder. Monitor calcium and phosphorus levels. 4. Left hemothorax. The patient is status post chest tube. Continues to have ongoing bleeding. Wi ll give a course of DDAVP. Continue to monitor. Follow up with CT surgery. 5. Shock, likely hemodynamics from blood loss, caused possible sepsis. Continue medical management. Continue intravenous fluids, pressor support, antibiotic therapy. Continue blood transfusion. 6. Abdominal pain, improved. 7. Hypothyroidism. Continue Synthroid. 8. History of benign prostatic hypertrophy. 9. Encephalopathy. Etiology is toxic-metabolic. Please note, I spent over 30 minutes of critical care time with this patient. Dictated By: NAE SINHA/ERICKA Conf#: [id number] DID#: [id number] CC: GIOVANNI ODELL MD;*[facility]*
--- NOTE | 2018-06-27 14:18 | CONS ---
Assessment/Plan Assessment/Plan Hospital Course (Demo Recall) Assessment: Hypovolemic shock - from blood loss Acute on chronic anemia Left hemothorax - likely from thoracentesis, status post chest tube placement 06/25/2018 Pleural effusions - status post left thoracentesis 06/24/2018 Chest pain - ruled out for myocardial infarction, possibly pleuritic History of pericardial effusion - trivial on current echocardiogram Severe concentric left ventricular hypertrophy - ? amyloidosis or other infiltrative cardiomyopathy Hypertension Diabetes mellitus Hypothyroidism End-stage renal disease, on hemodialysis History of hepatitis Recommendations: -pressors to keep MAP>65, wean as tolerated -additional pRBC transfusions as needed -chest x-ray notes enlargement in cardiac silhouette, repeat echocardiogram to rule out interval increase in pericardial effusion Consultation Date/Type/Reason Admit Date/Time Jun 24, 2018 at 03:48 Initial Consult Date 06/25/18 Type of Consult Cardiology Date/Time of Note DATE: 06/27/18 TIME: 14:16 24 HR Interval Summary Free Text/Dictation Remains on phenylephrine drip. Chest tube remains in place. Chest x-ray notes enlargement in cardiac silhouette. Detailed Summary Additional Comments 14 point review of systems without changes. Exam/Review of Systems Vital Signs Vitals Vital Signs Date Temp Pulse Resp B/P (MAP) Pulse Ox O2 O2 Flow FiO2 Time Delivery Rate 06/27/18 70 18 99/67 (78) 100 Nasal 2.0 14:00 Cannula 06/27/18 98.2 12:00 06/24/18 21 04:05 Intake and Output 06/26/18 06/26/18 06/27/18 1515:00 23:00 07:00 IntakeIntake Total 2393.51 ml 1838.73 ml 1163.40 ml OutputOutput Total 1300 ml 1070 ml 560 ml BalanceBalance 1093.51 ml 768.73 ml 603.40 ml Exam Exam Constitutional: alert, well developed Psych: no complaints; No nl mood/affect Head: normocephalic, atraumatic Eyes: nl conjunctiva, nl lids Neck: supple, non-tender Respiratory: diminished breath sounds; No wheezing Cardiovascular: regular rate and rhythm Gastrointestinal: soft, non-tender Musculoskeletal: nl extremities to inspection Extremities: No cyanosis, No clubbing Labs Result Diagram: 06/27/18 1248 06/27/18 0500 Results 24hrs Laboratory Tests Test 06/26/18:00 06/26/18 20:52 06/27/18 01:45 06/27/18 05:00 Hemoglobin 5.2 #*L 8.9 #L 7.9 L Hematocrit 15.2 #L 26.5 #L 23.5 L Bedside Glucose 254 H White Blood Count 3.3 #L 3.5 L Red Blood Count 2.91 #L 2.60 L Mean Corpuscular Volume 91.1 90.4 Mean Corpuscular 30.6 30.4 Hemoglobin Mean Corpuscular 33.6 33.6 Hemoglobin Concent Red Cell Distribution 13.7 14.0 Width Platelet Count 74 #L 70 L Mean Platelet Volume 11.4 H 11.3 H Immature Granulocytes % 0.300 0.300 Neutrophils % 60.0 59.6 Lymphocytes % 26.2 25.4 Monocytes % 12.0 H 12.1 H Eosinophils % 0.9 1.7 Basophils % 0.6 0.9 Nucleated Red Blood 0.6 H 0.0 Cells % Immature Granulocytes # 0.010 0.010 Neutrophils # 2.0 2.1 Lymphocytes # 0.9 0.9 Monocytes # 0.4 0.4 Eosinophils # 0.0 0.1 Basophils # 0.0 0.0 Nucleated Red Blood 0.0 0.0 Cells # Prothrombin Time 17.4 H Prothrombin Time Ratio 1.4 INR International 1.41 Normalized Ratio Activated 34.6 Partial Thromboplast Time Thrombin Time 16.5 Sodium Level 132 L Potassium Level 5.3 H Chloride Level 103 Carbon Dioxide Level 19 L Anion Gap 10 Blood Urea Nitrogen 25 H Creatinine 3.43 H Est Glomerular Filtrat 19 L Rate mL/min Glucose Level 229 H Calcium Level 6.6 L Phosphorus Level 5.2 H Magnesium Level 1.8 Test 06/27/18 12:48 Hemoglobin 7.0 L Hematocrit 20.7 L Medications Medications Current Medications IV Flush (NS 3 ml) 3 ml PER PROTOCOL IV ; Start 06/24/18 at 06:00 Ondansetron HCl (Zofran Inj) 4 mg Q6H PRN IV NAUSEA/VOMITING Last administered on 06/25/18at 16:38; Admin Dose 4 MG; Start 06/24/18 at 06:00 Acetaminophen (Tylenol Tab) 650 mg Q6H PRN PO .PAIN 1-3 OR TEMP; Start 06/24/18 at 06:00 Acetaminophen/ Hydrocodone Bitart ([place] (5/325)) 1 tab Q6H PRN PO .PAIN 4-6 Last administered on 06/25/18 18:17; Admin Dose 1 TAB; Start 06/24/18 at 06:00 Diphenhydramine HCl (Benadryl) 50 mg Q6 PRN PO ITCHING; Start 06/24/18 at 06:00 Docusate Sodium (Colace) 200 mg QHS PO Last administered on 06/26/18 20:36; Admin Dose 200 MG; Start 06/24/18 at 21:00 Hydralazine HCl (Apresoline) 50 mg BID PRN PO ELEVATED BLOOD PRESSURE; Start 06/24/18 at 06:00 Acetaminophen/ Hydrocodone Bitart ([place] (5/325)) 2 tab Q6 PRN PO SEVERE PAIN LEVEL 7-10 Last administered on 06/24/18 12:15; Admin Dose 2 TAB; Start 06/24/18 at 06:00 Levalbuterol (Xopenex Hfa) 2 puff Q4H RESP THERAPY PRN INH WHEEZING AND SOB; Start 06/24/18 at 06:00 Levothyroxine Sodium (Synthroid) 75 mcg BEFORE BREAKFAST PO Last administered on 06/27/18 06:11; Admin Dose 75 MCG; Start 06/24/18 at 07:00 Mirtazapine (Remeron) 7.5 mg HS PO Last administered on 06/26/18 20:36; Admin Dose 7.5 MG; Start 06/24/18 at 21:00 Multivit/Ca Carb/ B Cmplx/FA/Prenat (Chely-Maribel) 1 tab DAILY PO Last administered on 06/27/18 08:19; Admin Dose 1 TAB; Start 06/24/18 at 09:00 Nifedipine (Procardia Xl) 90 mg BID PO Last administered on 06/24/18 14:03; Admin Dose 90 MG; Start 06/24/18 at 09:00; Status Hold Nitroglycerin (Nitroglycerin (Sl Tab) 0.4 Mg) 1 tab Q5M PRN SL CHEST PAIN; Start 06/24/18 at 06:00 Pantoprazole (Protonix Tab) 40 mg DAILY@0600 PO Last administered on 06/27/18 05:30; Admin Dose 40 MG; Start 06/24/18 at 06:00 Ranitidine HCl (Zantac) 150 mg DAILY PO Last administered on 06/27/18 08:19; Admin Dose 150 MG; Start 06/24/18 at 09:00 Sevelamer Carbonate (Renvela) 1,600 mg WITH MEALS PO Last administered on 06/27/18 11:23; Admin Dose 1,600 MG; Start 06/24/18 at 07:55 Tamsulosin HCl (Flomax) 0.4 mg HS PO Last administered on 06/24/18 21:49; Admin Dose 0.4 MG; Start 06/24/18 at 21:00; Status Hold Miscellaneous Information 1 drp BID RIGHT EYE ; Start 06/24/18 at 09:00 Calcium Carbonate (Caltrate-600) 600 mg DAILY PO Last administered on 06/27/18 08:19; Admin Dose 600 MG; Start 06/24/18 at 09:00 Albumin Human 100 ml @ 100 mls/hr DURING DIALYSIS PRN IV HYPOTENSION DURING HD; Start 06/24/18 at 09:30 Morphine Sulfate (morphine) 2 mg Q4H PRN IV SEVERE PAIN LEVEL 7-10 Last administered on 06/27/18 12:52; Admin Dose 2 MG; Start 06/24/18 at 15:30 Norepinephrine 250 ml @ 1.875 mls/ hr TITRATE IV Last administered on 06/25/18 18:50; Admin Dose 28.125 MLS/HR; Start 06/25/18 at 03:00 Sodium Chloride 1,000 ml @ 75 mls/hr [id number] IV Last administered on 06/27/18 05:30; Admin Dose 75 MLS/HR; Start 06/25/18 at 08:00 Tramadol HCl (Ultracet) 2 tab Q6H PRN PO MODERATE PAIN LEVEL 4-6; Start 06/25/18 at 17:00 Megestrol Acetate (Megace Susp) 400 mg BID PO Last administered on 06/27/18 08:19; Admin Dose 400 MG; Start 06/25/18 at 21:00 Vasopressin 60 unit/Dextrose 60 ml @ 1.2 mls/hr Q12H IV Last administered on 06/27/18 04:54; Admin Dose 1.2 MLS/HR; Start 06/25/18 at 17:30 Phenylephrine HCl 160 mg/Dextrose 500 ml @ 18.75 mls/ hr TITRATE IV Last administered on 06/26/18at 20:59; Admin Dose 52.5 MLS/HR; Start 06/25/18 at 18:00 WILFRID MOREL MD Jun 27, 2018 14:18
[2018-06-27] MEDS: MIRTAZAPINE 15 MG TAB PO SCH (20:31)
[2018-06-27] MEDS: DOCUSATE SODIUM 100 MG CAP PO SCH (20:32)
[2018-06-28] VITALS (45 sets, daily range): BP systolic 90–124; BP diastolic 59–82; PULSE 64–77; RESP 8–24
[2018-06-28] MEDS: SOD CHLORIDE 0.9% 1,000 ML IV SCH ×2 (02:40→04:53)
[2018-06-28] MEDS: morphine 4 MG/ML VIAL IV PRN ×3 (04:53→19:14)
[2018-06-28] MEDS: VASOPRESSIN 60 UNIT in DEXTROSE 5% 57 ML IV SCH ×2 (05:09→17:30)
[2018-06-28] MEDS: PANTOPRAZOLE (EC) 40 MG TAB PO SCH (05:09)
[2018-06-28] MEDS: LEVOTHYROXINE 75 MCG TAB PO SCH (06:00)
--- NOTE | 2018-06-28 08:18 | PN ---
DATE: 06/28/2018 SUBJECTIVE: The patient is in critical but stable condition. The patient has been weaned off presso r support. Tolerating p.o. The patient continues to have bleeding from his chest tube site, althoug h improving. No other events noted. OBJECTIVE: VITAL SIGNS: Blood pressure is 112/78, respiration 12. Pulse 68, temperature 98.6. HEENT: Head is normocephalic. NECK: Supple. HEART: Regular rate. LUNGS: Show diminished breath sounds at base. ABDOMEN: Soft, nontender to palpation without rebound or guarding. EXTREMITIES: Negative for clubbing, cyanosis, no edema. DERMATOLOGIC: No rashes. MUSCULOSKELETAL: No joint effusion. NEUROLOGIC: No change in exam. MEDICATIONS: Reviewed. LABORATORY DATA: Shows sodium 135, potassium is 4.6, BUN 15, creatinine 2.26. White count 3.8, hemo globin 7.4, platelet count is 63. ASSESSMENT AND PLAN: 1. End-stage renal disease. The patient had hemodialysis yesterday and tolerated well. Plan for di alysis again tomorrow. 2. Hyperkalemia, improved. Continue dialysis low potassium bath. 3. Hypernatremia, improved. Continue dialysis 140 sodium bath. 4. Anemia, etiology in part due to hemothorax. The patient is status post multiple blood transfusio ns. Continue to monitor hemoglobin and hematocrit levels. Continue Epogen. The patient is status p ost DDAVP. Will continue to monitor. 5. Mineral bone disorder, monitor calcium and phosphorus levels. 6. Left hemothorax. The patient is status post chest tube. Continue to have ongoing bleeding, alth ough improved. The patient is status post DDAVP follow up with CT, surgery. Continue to monitor. 7. Status post shock, etiology is likely due to hemodynamics from blood loss. Questionable sepsis. The patient's blood pressures have improved, currently off pressor support. 8. Discontinue IV fluids. Continue antibiotic therapy. 9. Hypothyroidism. Continue Synthroid. 10. Benign prostatic hypertrophy. 11. Encephalopathy, etiology toxic metabolic, improving. Please note I spent over 30 minutes of critical care time with this patient. Dictated By: NAE MENDOZA DO NR/NTS Conf#: [id number] DID#: [id number] CC: GIOVANNI ODELL MD;*[facility]*
[2018-06-28] MEDS: MEGESTROL (40 MG/ML) 10ML CUP PO SCH ×2 (08:48→21:03)
[2018-06-28] MEDS: CALCIUM CARBONATE (600 MG CA) TAB PO SCH (08:49)
[2018-06-28] MEDS: RANITIDINE 150 MG TAB PO SCH (08:49)
[2018-06-28] MEDS: MULTIVIT/CA CARB/B CMPLX/FA TAB PO SCH (08:49)
[2018-06-28] MEDS: SEVELAMER CARBONATE 800 MG TABLET PO SCH ×3 (08:49→18:11)
[2018-06-28] MEDS ORDERED: CALCITRIOL 1 MCG INJ IV ONE (09:00)
[2018-06-28] MEDS ORDERED: EPOETIN 10000 UNITS/1 ML INJ (ESRD) SC ONE (09:00)
[2018-06-28] MEDS: NON-FORMULARY/PATIENT OWN MED (Atropine Sulfate/0.9 %Sod Chlr (Atropine 0.01%-Ns Eye Drops RIGHT EYE SCH ×2 (09:00→21:00)
--- NOTE | 2018-06-28 09:14 | CONS ---
Assessment/Plan Assessment/Plan Assessment/Plan (Daily) Chest x-ray is showing markedly decreased left pleural effusion. Assessment recommendations; 1. Patient admitted with shortness of breath underwent left thoracentesis with development of severe left hemothorax, requiring chest tube placement. Patient still draining hemorrhagic fluid. Has received multiple packed RBC transfusion. 2. End-stage renal disease, on hemodialysis. 3. Hypotension due to anemia, patient now off pressor support. 4. Chronic thrombocytopenia. 5. Currently no indication of any ongoing infective process. 6. History of hypothyroidism. 7. History of BPH. Continue current supportive care. Monitor H&H. 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 Maintain chest tube for now. Consultation Date/Type/Reason Admit Date/Time Jun 24, 2018 at 03:48 Initial Consult Date 06/25/18 Type of Consult Pulmonary/critical care Patient is a 58-year-old male who came into the hospital complains of shortness of breath. Upon evaluation patient was found to be severely anemic. Patient also was hypotensive requiring ICU admission. Patient is currently on 2 pressors Levophed and Bonilla-Synephrine. Patient is however completely awake and alert and denies any chest pain, fever, shortness of breath. Past medical history; 1. History of chronic renal failure, on hemodialysis. 2. History of anemia. 3. History of hypothyroidism. 4. History of hypertension. 5. BPH. Medications; reviewed. Allergies; none. Social history; no history any smoking alcohol or drug abuse. Family history; noncontributory. Occupational history; patient is on disability. Review of systems; denies any headache, visual changes. Any seizures. Patient denies any chest pain. Any coughing, wheezing, sputum production. Shortness of breath has slightly improved after undergoing thoracentesis. Denies any abdominal pain, nausea vomiting. Any melena or hematochezia. Patient is essentially anuric. Denies any orthopnea. General exam; middle-aged male, awake and alert. Currently no distress. Laying comfortably in bed. Date/Time of Note DATE: 06/28/18 TIME: 09:11 24 HR Interval Summary Free Text/Dictation Patient's condition is improving. Patient now is off pressor support. Has remained hemodynamically stable. Patient was hemodialyzed yesterday. General exam; middle-aged male, awake alert, currently in no distress. Exam/Review of Systems Exam Vitals Vital Signs Date Temp Pulse Resp B/P (MAP) Pulse Ox O2 O2 Flow FiO2 Time Delivery Rate 06/28/18 67 08:00 06/28/18 Nasal 2.0 08:00 Cannula 06/28/18 8 112/78 100 07:00 (89) 06/28/18 28 04:05 06/28/18 97.7 04:00 Intake and Output 06/27/18 06/27/18 06/28/18 1515:00 23:00 07:00 IntakeIntake Total 1237.51 ml 783.13 ml 644.40 ml OutputOutput Total 190 ml 2190 ml 150 ml BalanceBalance 1047.51 ml -1406.87 ml 494.40 ml Exam HEENT exam; supple neck, no JVD. No lymphadenopathy. Midline trachea. No thyromegaly. Patient has fair dentition. No neck masses. Chest exam; right lung is clear to auscultation, diminished breath sounds left lung. Left side chest tube in place. Has drained 200 mL over the last shift. Fluid is hemorrhagic. Abdomen exam; soft, no organomegaly. Bowel sounds audible. Nontender. Extremity exam; no peripheral edema. DIRECTOR [employer]POR[employer] SECURITY exam; no focal deficit. Results Result Diagram: 06/28/18 0500 06/28/18 0500 Results 24hrs Laboratory Tests Test 06/27/18 12:48 06/27/18 18:26 06/28/18 00:44 06/28/18 05:00 Hemoglobin 7.0 L 9.2 #L 7.6 L 7.4 L Hematocrit 20.7 L 26.0 #L 21.9 L 21.3 L White Blood Count 3.8 L Red Blood Count 2.39 L Mean Corpuscular 89.1 Volume Mean Corpuscular 31.0 Hemoglobin Mean Corpuscular 34.7 Hemoglobin Concent Red Cell 13.5 Distribution Width Platelet Count 63 L Mean Platelet 10.5 H Volume Immature 0.300 Granulocytes % Neutrophils % 68.2 Lymphocytes % 16.7 Monocytes % 11.2 H Eosinophils % 3.1 Basophils % 0.5 Nucleated Red Blood 0.0 Cells % Immature 0.010 Granulocytes # Neutrophils # 2.6 Lymphocytes # 0.6 L Monocytes # 0.4 Eosinophils # 0.1 Basophils # 0.0 Nucleated Red Blood 0.0 Cells # Sodium Level 135 Potassium Level 4.6 Chloride Level 104 Carbon Dioxide 26 Level Anion Gap 5 Blood Urea Nitrogen 15 # Creatinine 2.26 #H Est Glomerular 30 L Filtrat Rate mL/min Glucose Level 137 # Calcium Level 7.1 L Phosphorus Level 3.2 # Magnesium Level 1.7 Test 06/28/18 05:18 Lab Scanned Report BLOOD TRANSFUSION Medications Medication Current Medications IV Flush (NS 3 ml) 3 ml PER PROTOCOL IV ; Start 06/24/18 at 06:00 Ondansetron HCl (Zofran Inj) 4 mg Q6H PRN IV NAUSEA/VOMITING Last administered on 06/25/18 16:38; Admin Dose 4 MG; Start 06/24/18 at 06:00 Acetaminophen (Tylenol Tab) 650 mg Q6H PRN PO .PAIN 1-3 OR TEMP; Start 06/24/18 at 06:00 Acetaminophen/ Hydrocodone Bitart ([place] (5/325)) 1 tab Q6H PRN PO .PAIN 4-6 Last administered on 06/25/18 18:17; Admin Dose 1 TAB; Start 06/24/18 at 06:00 Diphenhydramine HCl (Benadryl) 50 mg Q6 PRN PO ITCHING; Start 06/24/18 at 06:00 Docusate Sodium (Colace) 200 mg QHS PO Last administered on 06/26/18 20:36; Admin Dose 200 MG; Start 06/24/18 at 21:00 Hydralazine HCl (Apresoline) 50 mg BID PRN PO ELEVATED BLOOD PRESSURE; Start 06/24/18 at 06:00 Acetaminophen/ Hydrocodone Bitart ([place] (5/325)) 2 tab Q6 PRN PO SEVERE PAIN LEVEL 7-10 Last administered on 06/24/18at 12:15; Admin Dose 2 TAB; Start 06/24/18 at 06:00 Levalbuterol (Xopenex Hfa) 2 puff Q4H RESP THERAPY PRN INH WHEEZING AND SOB; Start 06/24/18 at 06:00 Levothyroxine Sodium (Synthroid) 75 mcg BEFORE BREAKFAST PO Last administered on 06/28/18 06:00; Admin Dose 75 MCG; Start 06/24/18 at 07:00 Mirtazapine (Remeron) 7.5 mg HS PO Last administered on 06/27/18 20:31; Admin Dose 7.5 MG; Start 06/24/18 at 21:00 Multivit/Ca Carb/ B Cmplx/FA/Prenat ([place]-Maribel) 1 tab DAILY PO Last administered on 06/28/18 08:49; Admin Dose 1 TAB; Start 06/24/18 at 09:00 Nifedipine (Procardia Xl) 90 mg BID PO Last administered on 06/24/18 14:03; Admin Dose 90 MG; Start 06/24/18 at 09:00; Status Hold Nitroglycerin (Nitroglycerin (Sl Tab) 0.4 Mg) 1 tab Q5M PRN SL CHEST PAIN; Start 06/24/18 at 06:00 Pantoprazole (Protonix Tab) 40 mg DAILY@0600 PO Last administered on 06/28/18 05:09; Admin Dose 40 MG; Start 06/24/18 at 06:00 Ranitidine HCl (Zantac) 150 mg DAILY PO Last administered on 06/28/18 08:49; Admin Dose 150 MG; Start 06/24/18 at 09:00 Sevelamer Carbonate (Renvela) 1,600 mg WITH MEALS PO Last administered on 06/28/18 08:49; Admin Dose 1,600 MG; Start 06/24/18 at 07:55 Tamsulosin HCl (Flomax) 0.4 mg HS PO Last administered on 06/24/18 21:49; Admin Dose 0.4 MG; Start 06/24/18 at 21:00; Status Hold Miscellaneous Information 1 drp BID RIGHT EYE ; Start 06/24/18 at 09:00 Calcium Carbonate (Caltrate-600) 600 mg DAILY PO Last administered on 06/28/18 08:49; Admin Dose 600 MG; Start 06/24/18 at 09:00 Albumin Human 100 ml @ 100 mls/hr DURING DIALYSIS PRN IV HYPOTENSION DURING HD; Start 06/24/18 at 09:30 Morphine Sulfate (morphine) 2 mg Q4H PRN IV SEVERE PAIN LEVEL 7-10 Last administered on 06/28/18 04:53; Admin Dose 2 MG; Start 06/24/18 at 15:30 Norepinephrine 250 ml @ 1.875 mls/ hr TITRATE IV Last administered on 06/25/18 18:50; Admin Dose 28.125 MLS/HR; Start 06/25/18 at 03:00 Tramadol HCl (Ultracet) 2 tab Q6H PRN PO MODERATE PAIN LEVEL 4-6; Start 06/25/18 at 17:00 Megestrol Acetate (Megace Susp) 400 mg BID PO Last administered on 06/28/18at 08:48; Admin Dose 400 MG; Start 06/25/18 at 21:00 Vasopressin 60 unit/Dextrose 60 ml @ 1.2 mls/hr Q12H IV Last administered on 06/27/18at 04:54; Admin Dose 1.2 MLS/HR; Start 06/25/18 at 17:30 Phenylephrine HCl 160 mg/Dextrose 500 ml @ 18.75 mls/ hr TITRATE IV Last administered on 06/26/18at 20:59; Admin Dose 52.5 MLS/HR; Start 06/25/18 at 18:00 FADY MACEDO Jun 28, 2018 09:13
--- NOTE | 2018-06-28 12:29 | PN ---
Date/Time of Note Date/Time of Note DATE: 06/28/18 TIME: 12:26 Assessment/Plan Lines/Catheters IV Catheter Type (from Nrsg): Central Line Assessment/Plan Assessment/Plan Status post chest tube placement on the left side Chest tube drainage decreasing Total of 500 cc last 24 hours INR improving to 1.4 Still anemic with a hemoglobin of 7.1 Would monitor hemoglobin levels Correct coagulopathy Continue chest tube suction Subjective 24 Hr Interval Summary Constitutional: improved Pain Control: mild Exam/Review of Systems Vital Signs Vitals Vital Signs Date Temp Pulse Resp B/P (MAP) Pulse Ox O2 O2 Flow FiO2 Time Delivery Rate 06/28/18 65 12:00 06/28/18 18 100/64 99 Nasal 2.0 11:00 (76) Cannula 06/28/18 98.6 08:00 06/28/18 28 04:05 Intake and Output 06/27/18 06/27/18 06/28/18 1515:00 23:00 07:00 IntakeIntake Total 1237.51 ml 783.13 ml 644.40 ml OutputOutput Total 190 ml 2190 ml 150 ml BalanceBalance 1047.51 ml -1406.87 ml 494.40 ml Exam ENMT: nl external ears & nose, nl lips & teeth, nl nasal mucosa & septum, mucosa pink and moist Neck: supple, non-tender Respiratory: clear to auscultation, normal air movement Cardiovascular: regular rate and rhythm, nl pulses Gastrointestinal: soft, nl liver, spleen, non-tender Results Result Diagram: 06/28/18 1208 06/28/18 0500 MALEFRANCO ANDRADE MD Jun 28, 2018 12:29
[2018-06-28] MEDS ORDERED: DESMOPRESSIN 15 MCG in SOD CHLORIDE 0.9% 50 ML IV SCH (13:00)
--- NOTE | 2018-06-28 13:58 | RADRPT ---
Echocardiogram Report Patient Name: VAHE SEPULVEDAPatient ID: [id number] : 1960 (58y 4m)Study Date: 06/28/2018 8:33:07 AM Gender: MAccession #: [id number] Tech: DC Location: Ref.Physician: WILFRID MOREL Height(Cm): BSA: Weight(Kg): Quality: GoodAccount #: Procedures: Echocardiographic Report: Transthoracic echocardiogram examination. Indications: Pericardial Effusion. Findings: Left Ventricle: The left ventricular ejection fraction is visually estimated at 55 %. Pericardium: Normal pericardium with no significant pericardial effusion. IVC: Normal inferior vena cava appearance and respiratory collapse. Conclusions: Normal pericardium with no significant pericardial effusion. Electronically Signed By: Wilfrid Morel 2018-06-28 13:57:48 PST
--- NOTE | 2018-06-28 14:17 | PN ---
Date/Time of Note Date/Time of Note DATE: 06/28/18 TIME: 14:14 Assessment/Plan VTE Prophylaxis Risk score (from Ns)>0 risk: 4 SCD applied (from Ns): Yes Pharmacological prophylaxis: heparin Lines/Catheters IV Catheter Type (from Nrsg): Central Line Central line still needed: Yes Assessment/Plan Hospital Course 1. Recurrent chest pain -Secondary to effusions and or musculoskeletal -patient has ruled out for ACS, cardiology following 2. Mild resp distress with arthur pleural effusions -s/p l sided thoracentesis with drainage of 1L -post thoracentesis complication of hemothorax, s.p bedside L chest tube drainage -serial CXRs -continue CT and underwater seal, management per CTS 3. Hypovolemic shock 2/2 acute blood loss -wean off pressors as tolerated -Continue transfusions as needed 4. Severe anemia -acute on chronic 2/2 blood loss -Continue transfusions as needed 5. Abdominal pain with diarrhea: resolved -Patient has a history of C. difficile colitis -CT abdomen/pelvis nondiagnostic -Stool studies including C. difficile are negative -No empiric antibiotic at this time 6. ESRD on HD: Nephrology for dialysis (Stephanie Garza) 7. Hypertension: Adjust antihypertensive as needed, currently hypotensive on pressors 6. BPH: Continue home med 7. Hypothyroidism: Continue Synthroid 8. moderate pericardial effusion -f/u echo Prophylaxis: SCDs Dispo: -continue ICU care and support, wean off pressors, serial h/h. Result Diagram: 06/28/18 1208 06/28/18 0500 Results 24hrs Laboratory Tests Test 06/27/18 18:26 06/28/18 00:44 06/28/18 05:00 06/28/18 05:18 Hemoglobin 9.2 #L 7.6 L 7.4 L Hematocrit 26.0 #L 21.9 L 21.3 L White Blood Count 3.8 L Red Blood Count 2.39 L Mean Corpuscular 89.1 Volume Mean Corpuscular 31.0 Hemoglobin Mean Corpuscular 34.7 Hemoglobin Concent Red Cell 13.5 Distribution Width Platelet Count 63 L Mean Platelet 10.5 H Volume Immature 0.300 Granulocytes % Neutrophils % 68.2 Lymphocytes % 16.7 Monocytes % 11.2 H Eosinophils % 3.1 Basophils % 0.5 Nucleated Red Blood 0.0 Cells % Immature 0.010 Granulocytes # Neutrophils # 2.6 Lymphocytes # 0.6 L Monocytes # 0.4 Eosinophils # 0.1 Basophils # 0.0 Nucleated Red Blood 0.0 Cells # Sodium Level 135 Potassium Level 4.6 Chloride Level 104 Carbon Dioxide 26 Level Anion Gap 5 Blood Urea Nitrogen 15 # Creatinine 2.26 #H Est Glomerular 30 L Filtrat Rate mL/min Glucose Level 137 # Calcium Level 7.1 L Phosphorus Level 3.2 # Magnesium Level 1.7 Lab Scanned Report BLOOD TRANSFUSION Test 06/28/18 12:08 Hemoglobin 7.1 L Hematocrit 20.3 L Subjective 24 Hr Interval Summary Free Text/Dictation Alert, breathing comfortably Off of presors H/H stable Exam/Review of Systems Exam Vitals Vital Signs Date Temp Pulse Resp B/P (MAP) Pulse Ox O2 O2 Flow FiO2 Time Delivery Rate 06/28/18 65 12:00 06/28/18 18 100/64 99 Nasal 2.0 11:00 (76) Cannula 06/28/18 98.6 08:00 06/28/18 28 04:05 Intake and Output 06/27/18 06/27/18 06/28/18 1515:00 23:00 07:00 IntakeIntake Total 1237.51 ml 783.13 ml 644.40 ml OutputOutput Total 190 ml 2190 ml 150 ml BalanceBalance 1047.51 ml -1406.87 ml 494.40 ml Results Results 24hrs Laboratory Tests Test 06/27/18 18:26 06/28/18 00:44 06/28/18 05:00 06/28/18 05:18 Hemoglobin 9.2 #L 7.6 L 7.4 L Hematocrit 26.0 #L 21.9 L 21.3 L White Blood Count 3.8 L Red Blood Count 2.39 L Mean Corpuscular 89.1 Volume Mean Corpuscular 31.0 Hemoglobin Mean Corpuscular 34.7 Hemoglobin Concent Red Cell 13.5 Distribution Width Platelet Count 63 L Mean Platelet 10.5 H Volume Immature 0.300 Granulocytes % Neutrophils % 68.2 Lymphocytes % 16.7 Monocytes % 11.2 H Eosinophils % 3.1 Basophils % 0.5 Nucleated Red Blood 0.0 Cells % Immature 0.010 Granulocytes # Neutrophils # 2.6 Lymphocytes # 0.6 L Monocytes # 0.4 Eosinophils # 0.1 Basophils # 0.0 Nucleated Red Blood 0.0 Cells # Sodium Level 135 Potassium Level 4.6 Chloride Level 104 Carbon Dioxide 26 Level Anion Gap 5 Blood Urea Nitrogen 15 # Creatinine 2.26 #H Est Glomerular 30 L Filtrat Rate mL/min Glucose Level 137 # Calcium Level 7.1 L Phosphorus Level 3.2 # Magnesium Level 1.7 Lab Scanned Report BLOOD TRANSFUSION Test 06/28/18 12:08 Hemoglobin 7.1 L Hematocrit 20.3 L Medications Medication Current Medications IV Flush (NS 3 ml) 3 ml PER PROTOCOL IV ; Start 06/24/18 at 06:00 Ondansetron HCl (Zofran Inj) 4 mg Q6H PRN IV NAUSEA/VOMITING Last administered on 06/25/18 16:38; Admin Dose 4 MG; Start 06/24/18 at 06:00 Acetaminophen (Tylenol Tab) 650 mg Q6H PRN PO .PAIN 1-3 OR TEMP; Start 06/24/18 at 06:00 Acetaminophen/ Hydrocodone Bitart ([place] (5/325)) 1 tab Q6H PRN PO .PAIN 4-6 Last administered on 06/25/18 18:17; Admin Dose 1 TAB; Start 06/24/18 at 06:00 Diphenhydramine HCl (Benadryl) 50 mg Q6 PRN PO ITCHING; Start 06/24/18 at 06:00 Docusate Sodium (Colace) 200 mg QHS PO Last administered on 06/26/18 20:36; Admin Dose 200 MG; Start 06/24/18 at 21:00 Hydralazine HCl (Apresoline) 50 mg BID PRN PO ELEVATED BLOOD PRESSURE; Start 06/24/18 at 06:00 Acetaminophen/ Hydrocodone Bitart ([place] (5/325)) 2 tab Q6 PRN PO SEVERE PAIN LEVEL 7-10 Last administered on 06/24/18 12:15; Admin Dose 2 TAB; Start 06/24/18 at 06:00 Levalbuterol (Xopenex Hfa) 2 puff Q4H RESP THERAPY PRN INH WHEEZING AND SOB; Start 06/24/18 at 06:00 Levothyroxine Sodium (Synthroid) 75 mcg BEFORE BREAKFAST PO Last administered on 06/28/18 06:00; Admin Dose 75 MCG; Start 06/24/18 at 07:00 Mirtazapine (Remeron) 7.5 mg HS PO Last administered on 06/27/18 20:31; Admin Dose 7.5 MG; Start 06/24/18 at 21:00 Multivit/Ca Carb/ B Cmplx/FA/Prenat (Chely-Maribel) 1 tab DAILY PO Last adminis tered on 06/28/18 08:49; Admin Dose 1 TAB; Start 06/24/18 at 09:00 Nifedipine (Procardia Xl) 90 mg BID PO Last administered on 06/24/18 14:03; Admin Dose 90 MG; Start 06/24/18 at 09:00; Status Hold Nitroglycerin (Nitroglycerin (Sl Tab) 0.4 Mg) 1 tab Q5M PRN SL CHEST PAIN; Start 06/24/18 at 06:00 Ranitidine HCl (Zantac) 150 mg DAILY PO Last administered on 06/28/18 08:49; Admin Dose 150 MG; Start 06/24/18 at 09:00 Sevelamer Carbonate (Renvela) 1,600 mg WITH MEALS PO Last administered on 08:49; Admin Dose 1,600 MG; Start 06/24/18 at 07:55 Tamsulosin HCl (Flomax) 0.4 mg HS PO Last administered on 06/24/18 21:49; Admin Dose 0.4 MG; Start 06/24/18 at 21:00; Status Hold Miscellaneous Information 1 drp BID RIGHT EYE ; Start 06/24/18 at 09:00 Calcium Carbonate (Caltrate-600) 600 mg DAILY PO Last administered on 06/28/18 08:49; Admin Dose 600 MG; Start 06/24/18 at 09:00 Albumin Human 100 ml @ 100 mls/hr DURING DIALYSIS PRN IV HYPOTENSION DURING HD; Start 06/24/18 at 09:30 Morphine Sulfate (morphine) 2 mg Q4H PRN IV SEVERE PAIN LEVEL 7-10 Last administered on 06/28/18 12:22; Admin Dose 2 MG; Start 06/24/18 at 15:30 Norepinephrine 250 ml @ 1.875 mls/ hr TITRATE IV Last administered on 06/25/18 18:50; Admin Dose 28.125 MLS/HR; Start 06/25/18 at 03:00 Tramadol HCl (Ultracet) 2 tab Q6H PRN PO MODERATE PAIN LEVEL 4-6; Start 06/25/18 at 17:00 Megestrol Acetate (Megace Susp) 400 mg BID PO Last administered on 06/28/18at 08:48; Admin Dose 400 MG; Start 06/25/18 at 21:00 Vasopressin 60 unit/Dextrose 60 ml @ 1.2 mls/hr Q12H IV Last administered on 06/27/18at 04:54; Admin Dose 1.2 MLS/HR; Start 06/25/18 at 17:30 Phenylephrine HCl 160 mg/Dextrose 500 ml @ 18.75 mls/ hr TITRATE IV Last administered on 06/26/18at 20:59; Admin Dose 52.5 MLS/HR; Start 06/25/18 at 18:00 JOHN FARRAR MD Jun 28, 2018 14:17
--- NOTE | 2018-06-28 15:09 | CONS ---
Assessment/Plan Assessment/Plan Hospital Course (Demo Recall) Assessment: Hypovolemic shock - from blood loss Acute on chronic anemia Left hemothorax - likely from thoracentesis, status post chest tube placement 06/25/2018 Pleural effusions - status post left thoracentesis 06/24/2018 Chest pain - ruled out for myocardial infarction, possibly pleuritic History of pericardial effusion - trivial on current echocardiogram Severe concentric left ventricular hypertrophy - ? amyloidosis or other infiltrative cardiomyopathy Hypertension Diabetes mellitus Hypothyroidism End-stage renal disease, on hemodialysis History of hepatitis Recommendations: -additional pRBC transfusions as needed Consultation Date/Type/Reason Admit Date/Time Jun 24, 2018 at 03:48 Initial Consult Date 06/25/18 Type of Consult Cardiology Date/Time of Note DATE: 06/28/18 TIME: 15:07 24 HR Interval Summary Free Text/Dictation Weaned off pressors. Chest tube remains in place, but with decreasing output. Repeat echocardiogram reviewed, no significant pericardial effusion. Detailed Summary Additional Comments 14 point review of systems without changes. Exam/Review of Systems Vital Signs Vitals Vital Signs Date Temp Pulse Resp B/P (MAP) Pulse Ox O2 O2 Flow FiO2 Time Delivery Rate 06/28/18 65 12:00 06/28/18 18 100/64 99 Nasal 2.0 11:00 (76) Cannula 06/28/18 98.6 08:00 06/28/18 28 04:05 Intake and Output 06/27/18 06/27/18 06/28/18 1515:00 23:00 07:00 IntakeIntake Total 1237.51 ml 783.13 ml 644.40 ml OutputOutput Total 190 ml 2190 ml 150 ml BalanceBalance 1047.51 ml -1406.87 ml 494.40 ml Exam Exam Constitutional: alert, well developed Psych: no complaints; No nl mood/affect Head: normocephalic, atraumatic Eyes: nl conjunctiva, nl lids Neck: supple, non-tender Respiratory: diminished breath sounds; No wheezing Cardiovascular: regular rate and rhythm Gastrointestinal: soft, non-tender Musculoskeletal: nl extremities to inspection Extremities: No cyanosis, No clubbing Labs Result Diagram: 06/28/18 1208 06/28/18 0500 Results 24hrs Laboratory Tests Test 06/27/18 18:26 06/28/18 00:44 06/28/18 05:00 06/28/18 05:18 Hemoglobin 9.2 #L 7.6 L 7.4 L Hematocrit 26.0 #L 21.9 L 21.3 L White Blood Count 3.8 L Red Blood Count 2.39 L Mean Corpuscular 89.1 Volume Mean Corpuscular 31.0 Hemoglobin Mean Corpuscular 34.7 Hemoglobin Concent Red Cell 13.5 Distribution Width Platelet Count 63 L Mean Platelet 10.5 H Volume Immature 0.300 Granulocytes % Neutrophils % 68.2 Lymphocytes % 16.7 Monocytes % 11.2 H Eosinophils % 3.1 Basophils % 0.5 Nucleated Red Blood 0.0 Cells % Immature 0.010 Granulocytes # Neutrophils # 2.6 Lymphocytes # 0.6 L Monocytes # 0.4 Eosinophils # 0.1 Basophils # 0.0 Nucleated Red Blood 0.0 Cells # Sodium Level 135 Potassium Level 4.6 Chloride Level 104 Carbon Dioxide 26 Level Anion Gap 5 Blood Urea Nitrogen 15 # Creatinine 2.26 #H Est Glomerular 30 L Filtrat Rate mL/min Glucose Level 137 # Calcium Level 7.1 L Phosphorus Level 3.2 # Magnesium Level 1.7 Lab Scanned Report BLOOD TRANSFUSION Test 06/28/18 12:08 Hemoglobin 7.1 L Hematocrit 20.3 L Medications Medications Current Medications IV Flush (NS 3 ml) 3 ml PER PROTOCOL IV ; Start 06/24/18 at 06:00 Ondansetron HCl (Zofran Inj) 4 mg Q6H PRN IV NAUSEA/VOMITING Last administered on 06/25/18at 16:38; Admin Dose 4 MG; Start 06/24/18 at 06:00 Acetaminophen (Tylenol Tab) 650 mg Q6H PRN PO .PAIN 1-3 OR TEMP; Start 06/24/18 at 06:00 Acetaminophen/ Hydrocodone Bitart ([place] (5/325)) 1 tab Q6H PRN PO .PAIN 4-6 Last administered on 06/25/18at 18:17; Admin Dose 1 TAB; Start 06/24/18 at 06:00 Diphenhydramine HCl (Benadryl) 50 mg Q6 PRN PO ITCHING; Start 06/24/18 at 06:00 Docusate Sodium (Colace) 200 mg QHS PO Last administered on 06/26/18at 20:36; Admin Dose 200 MG; Start 06/24/18 at 21:00 Hydralazine HCl (Apresoline) 50 mg BID PRN PO ELEVATED BLOOD PRESSURE; Start 06/24/18 at 06:00 Acetaminophen/ Hydrocodone Bitart ([place] (5/325)) 2 tab Q6 PRN PO SEVERE PAIN LEVEL 7-10 Last administered on 06/24/18 12:15; Admin Dose 2 TAB; Start 06/24/18 at 06:00 Levalbuterol (Xopenex Hfa) 2 puff Q4H RESP THERAPY PRN INH WHEEZING AND SOB; Start 06/24/18 at 06:00 Levothyroxine Sodium (Synthroid) 75 mcg BEFORE BREAKFAST PO Last administered on 06/28/18 06:00; Admin Dose 75 MCG; Start 06/24/18 at 07:00 Mirtazapine (Remeron) 7.5 mg HS PO Last administered on 06/27/18 20:31; Admin Dose 7.5 MG; Start 06/24/18 at 21:00 Multivit/Ca Carb/ B Cmplx/FA/Prenat (Chely-Maribel) 1 tab DAILY PO Last a dministered on 06/28/18 08:49; Admin Dose 1 TAB; Start 06/24/18 at 09:00 Nifedipine (Procardia Xl) 90 mg BID PO Last administered on 06/24/18 14:03; Admin Dose 90 MG; Start 06/24/18 at 09:00; Status Hold Nitroglycerin (Nitroglycerin (Sl Tab) 0.4 Mg) 1 tab Q5M PRN SL CHEST PAIN; Start 06/24/18 at 06:00 Ranitidine HCl (Zantac) 150 mg DAILY PO Last administered on 06/28/18 08:49; Admin Dose 150 MG; Start 06/24/18 at 09:00 Sevelamer Carbonate (Renvela) 1,600 mg WITH MEALS PO Last administered on 06/28/18 08:49; Admin Dose 1,600 MG; Start 06/24/18 at 07:55 Tamsulosin HCl (Flomax) 0.4 mg HS PO Last administered on 06/24/18 21:49; Admin Dose 0.4 MG; Start 06/24/18 at 21:00; Status Hold Miscellaneous Information 1 drp BID RIGHT EYE ; Start 06/24/18 at 09:00 Calcium Carbonate (Caltrate-600) 600 mg DAILY PO Last administered on 06/28/18 08:49; Admin Dose 600 MG; Start 06/24/18 at 09:00 Albumin Human 100 ml @ 100 mls/hr DURING DIALYSIS PRN IV HYPOTENSION DURING HD; Start 06/24/18 at 09:30 Morphine Sulfate (morphine) 2 mg Q4H PRN IV SEVERE PAIN LEVEL 7-10 Last administered on 06/28/18 12:22; Admin Dose 2 MG; Start 06/24/18 at 15:30 Norepinephrine 250 ml @ 1.875 mls/ hr TITRATE IV Last administered on 06/25/18 18:50; Admin Dose 28.125 MLS/HR; Start 06/25/18 at 03:00 Tramadol HCl (Ultracet) 2 tab Q6H PRN PO MODERATE PAIN LEVEL 4-6; Start 06/25/18 at 17:00 Megestrol Acetate (Megace Susp) 400 mg BID PO Last administered on 06/28/18 08:48; Admin Dose 400 MG; Start 06/25/18 at 21:00 Vasopressin 60 unit/Dextrose 60 ml @ 1.2 mls/hr Q12H IV Last administered on 06/27/18 04:54; Admin Dose 1.2 MLS/HR; Start 06/25/18 at 17:30 Phenylephrine HCl 160 mg/Dextrose 500 ml @ 18.75 mls/ hr TITRATE IV Last administered on 06/26/18 20:59; Admin Dose 52.5 MLS/HR; Start 06/25/18 at 18:00 WILFRDI MOREL MD Jun 28, 2018 15:09
[2018-06-28] MEDS: DOCUSATE SODIUM 100 MG CAP PO SCH (21:00)
[2018-06-28] MEDS: MIRTAZAPINE 15 MG TAB PO SCH (21:04)
[2018-06-29] VITALS (37 sets, daily range): BP systolic 88–152; BP diastolic 54–87; PULSE 61–78; RESP 9–20
[2018-06-29] MEDS: morphine 4 MG/ML VIAL IV PRN ×5 (04:45→20:31)
[2018-06-29] MEDS: LEVOTHYROXINE 75 MCG TAB PO SCH (07:21)
[2018-06-29] MEDS: SEVELAMER CARBONATE 800 MG TABLET PO SCH ×3 (07:41→17:30)
[2018-06-29] MEDS: MEGESTROL (40 MG/ML) 10ML CUP PO SCH ×2 (08:04→20:32)
[2018-06-29] MEDS: RANITIDINE 150 MG TAB PO SCH (08:04)
[2018-06-29] MEDS: MULTIVIT/CA CARB/B CMPLX/FA TAB PO SCH (08:04)
[2018-06-29] MEDS: CALCIUM CARBONATE (600 MG CA) TAB PO SCH (08:04)
[2018-06-29] MEDS: NON-FORMULARY/PATIENT OWN MED (Atropine Sulfate/0.9 %Sod Chlr (Atropine 0.01%-Ns Eye Drops RIGHT EYE SCH ×2 (08:05→21:00)
--- NOTE | 2018-06-29 08:13 | PN ---
DATE: 06/29/2018 SUBJECTIVE: The patient is stable, no events overnight. The patient continues to have bleeding from his chest tube site, improving. No other events noted. OBJECTIVE: VITAL SIGNS: Blood pressure is 146/60, respirations 20, pulse 77, temperature 98.1. HEENT: Head is normocephalic. NECK: Supple. HEART: Regular rate. LUNGS: Show diminished breath sounds at the base. ABDOMEN: Soft, nontender to palpation without rebound or guarding. EXTREMITIES: Negative for clubbing, cyanosis, no edema. DERMATOLOGIC: No rashes. MUSCULOSKELETAL: No joint effusion. NEUROLOGIC: No change in exam. MEDICATIONS: Reviewed. LABORATORY DATA: Shows sodium 135, potassium 4.9, BUN 21, creatinine 3.06. White count 4.5, hemoglo bin 7.3, platelet count is 82. IMAGING STUDIES AND MICROBIOLOGY: Reviewed. ASSESSMENT AND PLAN: 1. End-stage renal disease. Plan is for hemodialysis today. We will dialyze 3 hours 3k bath, calci um 2.5. 2. Hyperkalemia, improved. Continue dialysis on a low potassium bath. 3. Hypernatremia, improved. Continue to monitor. 4. Anemia secondary to hemothorax, chronic kidney disease. The patient is status post blood transfu izabela. Continue Epogen. Monitor hemoglobin and hematocrit levels. 5. Mineral bone disorder, monitor calcium and phosphorus levels. 6. Left pneumothorax status post chest tube. Continue to monitor. 7. Status post shock secondary to hemodynamics, blood loss. Blood pressures are improved. Continue to monitor. 8. Hypothyroidism. Continue Synthroid. 9. Benign prostatic hypertrophy. 10. Encephalopathy, improving. Please note, I spent over 30 minutes of critical care time with this patient. Dictated By: NAE MENDOZA DO NR/NTS Conf#: [id number] DID#: [id number] CC: JOHN FARRAR MD; GIOVANNI ODELL MD; WILFRID MOREL MD;*EndCC*
--- NOTE | 2018-06-29 08:32 | CONS ---
Assessment/Plan Assessment/Plan Assessment/Plan (Daily) Chest x-ray was reviewed from today which is showing improving aeration of the left lung. Assessment recommendations; next 1. Patient admitted to ICU with hypotension and massive left humeral thorax status post chest tube placement with clinical stability no. Patient maintaining stable hemodynamics off pressor support. 2. Chronic renal failure, on hemodialysis. 3. History of hypertension. Continue current supportive care. Monitor H&H. Hemodialysis per electronics processor. Consultation Date/Type/Reason Admit Date/Time Jun 24, 2018 at 03:48 Initial Consult Date 06/25/18 Type of Consult Pulmonary/critical care Patient is a 58-year-old male who came into the hospital complains of shortness of breath. Upon evaluation patient was found to be severely anemic. Patient also was hypotensive requiring ICU admission. Patient is currently on 2 pressors Levophed and Bonilla-Synephrine. Patient is however completely awake and a lert and denies any chest pain, fever, shortness of breath. Past medical history; 1. History of chronic renal failure, on hemodialysis. 2. History of anemia. 3. History of hypothyroidism. 4. History of hypertension. 5. BPH. Medications; reviewed. Allergies; none. Social history; no history any smoking alcohol or drug abuse. Family history; noncontributory. Occupational history; patient is on disability. Review of systems; denies any headache, visual changes. Any seizures. Patient denies any chest pain. Any coughing, wheezing, sputum production. Shortness of breath has slightly improved after undergoing thoracentesis. Denies any abdominal pain, nausea vomiting. Any melena or hematochezia. Patient is essentially anuric. Denies any orthopnea. General exam; middle-aged male, awake and alert. Currently no distress. Laying comfortably in bed. Date/Time of Note DATE: 06/29/18 TIME: 08:30 24 HR Interval Summary Free Text/Dictation Patient's condition is stable. Remains awake and alert. Has remained hemodynamically stable. There is decreasing outputs through left chest tube with significant improvement in hemorrhagic pleural effusion. General exam; middle-aged male, awake alert, currently no distress. Having zainab kfast in bed. Exam/Review of Systems Exam Vitals Vital Signs Date Temp Pulse Resp B/P (MAP) Pulse Ox O2 O2 Flow FiO2 Time Delivery Rate 06/29/18 77 20 146/60 98 Room Air 05:00 (88) 06/29/18 98.1 04:00 06/28/18 2.0 20:00 06/28/18 28 04:05 Intake and Output 06/28/18 06/28/18 06/29/18 1414:59 22:59 06:59 IntakeIntake Total 350 ml 253.75 ml OutputOutput Total 60 ml 50 ml 140 ml BalanceBalance 290 ml 203.75 ml -140 ml Exam HEENT exam; supple neck, no JVD. No lymphadenopathy. Midline trachea. No thyromegaly. Patient does have carious teeth. Chest exam; diminished breath sounds left lung. Right lung is clear to auscultation. S1-S2 audible, no murmurs. Regular rhythm. Left-sided chest tube in place. Abdomen exam; soft, nontender. No organomegaly. Bowel sounds audible. Extremity exam; no peripheral edema or clubbing. MRI TECH exam; no focal deficit. Results Result Diagram: 06/29/18 0435 06/29/18 0435 Results 24hrs Laboratory Tests Test 06/28/18 12:08 06/28/18 18:08 06/29/18 04:35 Hemoglobin 7.1 L 7.1 L 7.3 L Hematocrit 20.3 L 21.2 L 21.7 L White Blood Count 4.5 L Red Blood Count 2.35 L Mean Corpuscular Volume 92.3 Mean Corpuscular Hemoglobin 31.1 Mean Corpuscular Hemoglobin Concent 33.6 Red Cell Distribution Width 14.1 Platelet Count 82 #L Mean Platelet Volume 10.8 H Immature Granulocytes % 0.200 Neutrophils % 77.6 H Lymphocytes % 13.0 L Monocytes % 7.0 Eosinophils % 2.0 Basophils % 0.2 Nucleated Red Blood Cells % 0.0 Immature Granulocytes # 0.010 Neutrophils # 3.5 Lymphocytes # 0.6 L Monocytes # 0.3 Eosinophils # 0.1 Basophils # 0.0 Nucleated Red Blood Cells # 0.0 Sodium Level 135 Potassium Level 4.9 Chloride Level 105 Carbon Dioxide Level 24 Anion Gap 6 Blood Urea Nitrogen 21 H Creatinine 3.06 H Est Glomerular Filtrat Rate mL/min 21 L Glucose Level 196 Calcium Level 7.9 L Phosphorus Level 4.0 Magnesium Level 1.9 Medications Medication Current Medications IV Flush (NS 3 ml) 3 ml PER PROTOCOL IV ; Start 06/24/18 at 06:00 Ondansetron HCl (Zofran Inj) 4 mg Q6H PRN IV NAUSEA/VOMITING Last administered on 06/25/18 16:38; Admin Dose 4 MG; Start 06/24/18 at 06:00 Acetaminophen (Tylenol Tab) 650 mg Q6H PRN PO .PAIN 1-3 OR TEMP; Start 06/24/18 at 06:00 Acetaminophen/ Hydrocodone Bitart ([place] (5/325)) 1 tab Q6H PRN PO .PAIN 4-6 Last administered on 06/25/18 18:17; Admin Dose 1 TAB; Start 06/24/18 at 06:00 Diphenhydramine HCl (Benadryl) 50 mg Q6 PRN PO ITCHING; Start 06/24/18 at 06:00 Docusate Sodium (Colace) 200 mg QHS PO Last administered on 06/26/18 20:36; Admin Dose 200 MG; Start 06/24/18 at 21:00 Hydralazine HCl (Apresoline) 50 mg BID PRN PO ELEVATED BLOOD PRESSURE; Start 06/24/18 at 06:00 Acetaminophen/ Hydrocodone Bitart ([place] (5/325)) 2 tab Q6 PRN PO SEVERE PAIN LEVEL 7-10 Last administered on 06/24/18 12:15; Admin Dose 2 TAB; Start 06/24/18 at 06:00 Levalbuterol (Xopenex Hfa) 2 puff Q4H RESP THERAPY PRN INH WHEEZING AND SOB; Start 06/24/18 at 06:00 Levothyroxine Sodium (Synthroid) 75 mcg BEFORE BREAKFAST PO Last administered on 06/29/18 07:21; Admin Dose 75 MCG; Start 06/24/18 at 07:00 Mirtazapine (Remeron) 7.5 mg HS PO Last administered on 06/28/18 21:04; Admin Dose 7.5 MG; Start 06/24/18 at 21:00 Multivit/Ca Carb/ B Cmplx/FA/Prenat (Chely-Maribel) 1 tab DAILY PO Last administe red on 06/29/18 08:04; Admin Dose 1 TAB; Start 06/24/18 at 09:00 Nifedipine (Procardia Xl) 90 mg BID PO Last administered on 06/24/18 14:03; Admin Dose 90 MG; Start 06/24/18 at 09:00; Status Hold Nitroglycerin (Nitroglycerin (Sl Tab) 0.4 Mg) 1 tab Q5M PRN SL CHEST PAIN; Start 06/24/18 at 06:00 Ranitidine HCl (Zantac) 150 mg DAILY PO Last administered on 06/29/18 08:04; Admin Dose 150 MG; Start 06/24/18 at 09:00 Sevelamer Carbonate (Renvela) 1,600 mg WITH MEALS PO Last administered on 07:41; Admin Dose 1,600 MG; Start 06/24/18 at 07:55 Tamsulosin HCl (Flomax) 0.4 mg HS PO Last administered on 06/24/18 21:49; Admin Dose 0.4 MG; Start 06/24/18 at 21:00; Status Hold Miscellaneous Information 1 drp BID RIGHT EYE ; Start 06/24/18 at 09:00 Calcium Carbonate (Caltrate-600) 600 mg DAILY PO Last administered on 06/29/18 08:04; Admin Dose 600 MG; Start 06/24/18 at 09:00 Albumin Human 100 ml @ 100 mls/hr DURING DIALYSIS PRN IV HYPOTENSION DURING HD; Start 06/24/18 at 09:30 Morphine Sulfate (morphine) 2 mg Q4H PRN IV SEVERE PAIN LEVEL 7-10 Last administered on 06/29/18 04:45; Admin Dose 2 MG; Start 06/24/18 at 15:30 Norepinephrine 250 ml @ 1.875 mls/ hr TITRATE IV Last administered on 06/25/18 18:50; Admin Dose 28.125 MLS/HR; Start 06/25/18 at 03:00 Tramadol HCl (Ultracet) 2 tab Q6H PRN PO MODERATE PAIN LEVEL 4-6; Start 06/25/18 at 17:00 Megestrol Acetate (Megace Susp) 400 mg BID PO Last administered on 06/29/18 08:04; Admin Dose 400 MG; Start 06/25/18 at 21:00 Vasopressin 60 unit/Dextrose 60 ml @ 1.2 mls/hr Q12H IV Last administered on 06/27/18 04:54; Admin Dose 1.2 MLS/HR; Start 06/25/18 at 17:30 Phenylephrine HCl 160 mg/Dextrose 500 ml @ 18.75 mls/ hr TITRATE IV Last administered on 06/26/18at 20:59; Admin Dose 52.5 MLS/HR; Start 06/25/18 at 18:00 FADY MACEDO Jun 29, 2018 08:32
[2018-06-29] MEDS: HYDROCODONE/APAP (5/325) TAB PO PRN (08:44)
--- NOTE | 2018-06-29 12:16 | PN ---
Date/Time of Note Date/Time of Note DATE: 06/29/18 TIME: 12:15 Assessment/Plan Lines/Catheters IV Catheter Type (from Nrsg): Central Line Assessment/Plan Assessment/Plan Has post left chest tube placement Tube drainage S2 110 cc past 24-hour Hemoglobin more stable 7.3 Continue chest tube drainage And suction monitor hemoglobin levels Correct coagulopathy Subjective 24 Hr Interval Summary Constitutional: no complaints, improved, ambulates, BM, flatus, urine output Pain Control: well controlled Exam/Review of Systems Vital Signs Vitals Vital Signs Date Temp Pulse Resp B/P (MAP) Pulse Ox O2 O2 Flow FiO2 Time Delivery Rate 06/29/18 72 12:00 06/29/18 13 109/72 100 Room Air 11:00 (84) 06/29/18 2.0 10:10 06/29/18 98.2 08:00 06/28/18 28 04:05 Intake and Output 06/28/18 06/28/18 06/29/18 1515:00 23:00 07:00 IntakeIntake Total 350 ml 253.75 ml OutputOutput Total 70 ml 30 ml 140 ml BalanceBalance 280 ml 223.75 ml -140 ml Exam ENMT: nl external ears & nose, nl lips & teeth, nl nasal mucosa & septum, mucosa pink and moist Neck: supple, non-tender Respiratory: clear to auscultation, normal air movement Cardiovascular: regular rate and rhythm, nl pulses Musculoskeletal: nl extremities to inspection, nl gait and stance Results Result Diagram: 06/29/18 0435 06/29/18 0435 FRANCO CASTELAN MD Jun 29, 2018 12:16
--- NOTE | 2018-06-29 14:21 | PN ---
Date/Time of Note Date/Time of Note DATE: 06/29/18 TIME: 14:18 Assessment/Plan VTE Prophylaxis Risk score (from Ns)>0 risk: 10 SCD applied (from Ns): Yes Pharmacological prophylaxis: heparin Lines/Catheters IV Catheter Type (from Nrsg): Central Line Central line still needed: Yes Assessment/Plan Hospital Course 1. Recurrent chest pain -Secondary to effusions and or musculoskeletal -patient has ruled out for ACS, cardiology following 2. Mild resp distress with arthur pleural effusions -s/p l sided thoracentesis with drainage of 1L -post thoracentesis complication of hemothorax, s.p bedside L chest tube drainage -serial CXRs -continue CT and underwater seal, management per CTS 3. Hypovolemic shock 2/2 acute blood loss -wean off pressors as tolerated -Continue transfusions as needed 4. Severe anemia -acute on chronic 2/2 blood loss -Continue transfusions as needed 5. Abdominal pain with diarrhea: resolved -Patient has a history of C. difficile colitis -CT abdomen/pelvis nondiagnostic -Stool studies including C. difficile are negative -No empiric antibiotic at this time 6. ESRD on HD: Nephrology for dialysis (Stephanie Garza) 7. Hypertension: Adjust antihypertensive as needed, currently hypotensive on pressors 6. BPH: Continue home med 7. Hypothyroidism: Continue Synthroid 8. moderate pericardial effusion -f/u echo Prophylaxis: SCDs Dispo: -continue ICU care and support, wean off pressors, serial h/h. Result Diagram: 06/29/18 0435 06/29/18 0435 Results 24hrs Laboratory Tests Test 06/28/18 18:08 06/29/18 04:35 Hemoglobin 7.1 L 7.3 L Hematocrit 21.2 L 21.7 L White Blood Count 4.5 L Red Blood Count 2.35 L Mean Corpuscular Volume 92.3 Mean Corpuscular Hemoglobin 31.1 Mean Corpuscular Hemoglobin Concent 33.6 Red Cell Distribution Width 14.1 Platelet Count 82 #L Mean Platelet Volume 10.8 H Immature Granulocytes % 0.200 Neutrophils % 77.6 H Lymphocytes % 13.0 L Monocytes % 7.0 Eosinophils % 2.0 Basophils % 0.2 Nucleated Red Blood Cells % 0.0 Immature Granulocytes # 0.010 Neutrophils # 3.5 Lymphocytes # 0.6 L Monocytes # 0.3 Eosinophils # 0.1 Basophils # 0.0 Nucleated Red Blood Cells # 0.0 Sodium Level 135 Potassium Level 4.9 Chloride Level 105 Carbon Dioxide Level 24 Anion Gap 6 Blood Urea Nitrogen 21 H Creatinine 3.06 H Est Glomerular Filtrat Rate mL/min 21 L Glucose Level 196 Calcium Level 7.9 L Phosphorus Level 4.0 Magnesium Level 1.9 Subjective 24 Hr Interval Summary Free Text/Dictation Patient is undergoing HD session today He feels well Breathing comfortably No pain Exam/Review of Systems Exam Vitals Vital Signs Date Temp Pulse Resp B/P (MAP) Pulse Ox O2 O2 Flow FiO2 Time Delivery Rate 06/29/18 65 13:10 06/29/18 18 129/69 98 Nasal 2.0 13:10 (89) Cannula 06/29/18 98.2 08:00 06/28/18 28 04:05 Intake and Output 06/28/18 06/28/18 06/29/18 1515:00 23:00 07:00 IntakeIntake Total 350 ml 253.75 ml OutputOutput Total 70 ml 30 ml 140 ml BalanceBalance 280 ml 223.75 ml -140 ml Constitutional: alert, oriented, well developed Psych: no complaints, nl mood/affect Head: normocephalic, atraumatic Eyes: nl conjunctiva, EOMI, nl lids, nl sclera, PERRL ENMT: nl external ears & nose, nl lips & teeth, nl nasal mucosa & septum Neck: supple, non-tender Respiratory: clear to auscultation, normal air movement Cardiovascular: regular rate and rhythm, nl pulses Gastrointestinal: soft, nl liver, spleen, non-tender Musculoskeletal: nl extremities to inspection, nl gait and stance Extremities: normal pulses Neurological: [employer] II-XII intact, nl mental status, nl speech, nl strength Skin: nl turgor; No rash or lesions Lymph: nl lymph nodes Results Results 24hrs Laboratory Tests Test 06/28/18 18:08 06/29/18 04:35 Hemoglobin 7.1 L 7.3 L Hematocrit 21.2 L 21.7 L White Blood Count 4.5 L Red Blood Count 2.35 L Mean Corpuscular Volume 92.3 Mean Corpuscular Hemoglobin 31.1 Mean Corpuscular Hemoglobin Concent 33.6 Red Cell Distribution Width 14.1 Platelet Count 82 #L Mean Platelet Volume 10.8 H Immature Granulocytes % 0.200 Neutrophils % 77.6 H Lymphocytes % 13.0 L Monocytes % 7.0 Eosinophils % 2.0 Basophils % 0.2 Nucleated Red Blood Cells % 0.0 Immature Granulocytes # 0.010 Neutrophils # 3.5 Lymphocytes # 0.6 L Monocytes # 0.3 Eosinophils # 0.1 Basophils # 0.0 Nucleated Red Blood Cells # 0.0 Sodium Level 135 Potassium Level 4.9 Chloride Level 105 Carbon Dioxide Level 24 Anion Gap 6 Blood Urea Nitrogen 21 H Creatinine 3.06 H Est Glomerular Filtrat Rate mL/min 21 L Glucose Level 196 Calcium Level 7.9 L Phosphorus Level 4.0 Magnesium Level 1.9 Medications Medication Current Medications IV Flush (NS 3 ml) 3 ml PER PROTOCOL IV ; Start 06/24/18 at 06:00 Ondansetron HCl (Zofran Inj) 4 mg Q6H PRN IV NAUSEA/VOMITING Last administered on 06/25/18at 16:38; Admin Dose 4 MG; Start 06/24/18 at 06:00 Acetaminophen (Tylenol Tab) 650 mg Q6H PRN PO .PAIN 1-3 OR TEMP; Start 06/24/18 at 06:00 Acetaminophen/ Hydrocodone Bitart ([place] (5/325)) 1 tab Q6H PRN PO .PAIN 4-6 Last administered on 06/25/18at 18:17; Admin Dose 1 TAB; Start 06/24/18 at 06:00 Diphenhydramine HCl (Benadryl) 50 mg Q6 PRN PO ITCHING; Start 06/24/18 at 06:00 Docusate Sodium (Colace) 200 mg QHS PO Last administered on 06/26/18at 20:36; Admin Dose 200 MG; Start 06/24/18 at 21:00 Hydralazine HCl (Apresoline) 50 mg BID PRN PO ELEVATED BLOOD PRESSURE; Start 06/24/18 at 06:00 Acetaminophen/ Hydrocodone Bitart ([place] (5/325)) 2 tab Q6 PRN PO SEVERE PAIN LEVEL 7-10 Last administered on 06/29/18at 08:44; Admin Dose 2 TAB; Start 06/24/18 at 06:00 Levalbuterol (Xopenex Hfa) 2 puff Q4H RESP THERAPY PRN INH WHEEZING AND SOB; Start 06/24/18 at 06:00 Levothyroxine Sodium (Synthroid) 75 mcg BEFORE BREAKFAST PO Last administered on 06/29/18 07:21; Admin Dose 75 MCG; Start 06/24/18 at 07:00 Mirtazapine (Remeron) 7.5 mg HS PO Last administered on 06/28/18 21:04; Admin Dose 7.5 MG; Start 06/24/18 at 21:00 Multivit/Ca Carb/ B Cmplx/FA/Prenat (Chely-Maribel) 1 tab DAILY PO Last administered on 06/29/18 08:04; Admin Dose 1 TAB; Start 06/24/18 at 09:00 Nifedipine (Procardia Xl) 90 mg BID PO Last administered on 06/24/18 14:03; Admin Dose 90 MG; Start 06/24/18 at 09:00; Status Hold Nitroglycerin (Nitroglycerin (Sl Tab) 0.4 Mg) 1 tab Q5M PRN SL CHEST PAIN; Start 06/24/18 at 06:00 Ranitidine HCl (Zantac) 150 mg DAILY PO Last administered on 06/29/18 08:04; Admin Dose 150 MG; Start 06/24/18 at 09:00 Sevelamer Carbonate (Renvela) 1,600 mg WITH MEALS PO Last administered on 06/29/18 12:30; Admin Dose 1,600 MG; Start 06/24/18 at 07:55 Tamsulosin HCl (Flomax) 0.4 mg HS PO Last administered on 06/24/18 21:49; Admin Dose 0.4 MG; Start 06/24/18 at 21:00; Status Hold Miscellaneous Information 1 drp BID RIGHT EYE ; Start 06/24/18 at 09:00 Calcium Carbonate (Caltrate-600) 600 mg DAILY PO Last administered on 06/29/18 08:04; Admin Dose 600 MG; Start 06/24/18 at 09:00 Albumin Human 100 ml @ 100 mls/hr DURING DIALYSIS PRN IV HYPOTENSION DURING HD; Start 06/24/18 at 09:30 Morphine Sulfate (morphine) 2 mg Q4H PRN IV SEVERE PAIN LEVEL 7-10 Last administered on 06/29/18 09:46; Admin Dose 2 MG; Start 06/24/18 at 15:30 Norepinephrine 250 ml @ 1.875 mls/ hr TITRATE IV Last administered on 06/25/18at 18:50; Admin Dose 28.125 MLS/HR; Start 06/25/18 at 03:00 Tramadol HCl (Ultracet) 2 tab Q6H PRN PO MODERATE PAIN LEVEL 4-6; Start 06/25/18 at 17:00 Megestrol Acetate (Megace Susp) 400 mg BID PO Last administered on 06/29/18at 08:04; Admin Dose 400 MG; Start 06/25/18 at 21:00 Vasopressin 60 unit/Dextrose 60 ml @ 1.2 mls/hr Q12H IV Last administered on 06/27/18at 04:54; Admin Dose 1.2 MLS/HR; Start 06/25/18 at 17:30 Phenylephrine HCl 160 mg/Dextrose 500 ml @ 18.75 mls/ hr TITRATE IV Last administered on 06/26/18at 20:59; Admin Dose 52.5 MLS/HR; Start 06/25/18 at 18:00 JOHN FARRAR MD Jun 29, 2018 14:21
--- NOTE | 2018-06-29 17:16 | CONS ---
Assessment/Plan Assessment/Plan Hospital Course (Demo Recall) Assessment: Hypovolemic shock - from blood loss Acute on chronic anemia Left hemothorax - likely from thoracentesis, status post chest tube placement 06/25/2018 Pleural effusions - status post left thoracentesis 06/24/2018 Chest pain - ruled out for myocardial infarction, possibly pleuritic History of pericardial effusion - trivial on current echocardiogram Severe concentric left ventricular hypertrophy - ? amyloidosis or other infiltrative cardiomyopathy Hypertension Diabetes mellitus Hypothyroidism End-stage renal disease, on hemodialysis History of hepatitis Recommendations: -additional pRBC transfusions as needed Consultation Date/Type/Reason Admit Date/Time Jun 24, 2018 at 03:48 Initial Consult Date 06/25/18 Type of Consult Cardiology Date/Time of Note DATE: 06/29/18 TIME: 17:15 24 HR Interval Summary Free Text/Dictation No acute events. Chest tube remains in place. Hemodynamically stable off pressors. Detailed Summary Additional Comments 14 point review of systems without changes. Exam/Review of Systems Vital Signs Vitals Vital Signs Date Temp Pulse Resp B/P (MAP) Pulse Ox O2 O2 Flow FiO2 Time Delivery Rate 06/29/18 62 16:00 06/29/18 20 99/61 (74) 97 Room Air 15:00 06/29/18 2.0 13:10 06/29/18 98.0 12:00 06/28/18 28 04:05 Intake and Output 06/28/18 06/28/18 06/29/18 1515:00 23:00 07:00 IntakeIntake Total 350 ml 253.75 ml OutputOutput Total 70 ml 30 ml 140 ml BalanceBalance 280 ml 223.75 ml -140 ml Exam Exam Constitutional: alert, well developed Psych: no complaints; No nl mood/affect Head: normocephalic, atraumatic Eyes: nl conjunctiva, nl lids Neck: supple, non-tender Respiratory: diminished breath sounds; No wheezing Cardiovascular: regular rate and rhythm Gastrointestinal: soft, non-tender Musculoskeletal: nl extremities to inspection Extremities: No cyanosis, No clubbing Labs Result Diagram: 06/29/18 0435 06/29/18 0435 Results 24hrs Laboratory Tests Test 06/28/18 18:08 06/29/18 04:35 Hemoglobin 7.1 L 7.3 L Hematocrit 21.2 L 21.7 L White Blood Count 4.5 L Red Blood Count 2.35 L Mean Corpuscular Volume 92.3 Mean Corpuscular Hemoglobin 31.1 Mean Corpuscular Hemoglobin Concent 33.6 Red Cell Distribution Width 14.1 Platelet Count 82 #L Mean Platelet Volume 10.8 H Immature Granulocytes % 0.200 Neutrophils % 77.6 H Lymphocytes % 13.0 L Monocytes % 7.0 Eosinophils % 2.0 Basophils % 0.2 Nucleated Red Blood Cells % 0.0 Immature Granulocytes # 0.010 Neutrophils # 3.5 Lymphocytes # 0.6 L Monocytes # 0.3 Eosinophils # 0.1 Basophils # 0.0 Nucleated Red Blood Cells # 0.0 Sodium Level 135 Potassium Level 4.9 Chloride Level 105 Carbon Dioxide Level 24 Anion Gap 6 Blood Urea Nitrogen 21 H Creatinine 3.06 H Est Glomerular Filtrat Rate mL/min 21 L Glucose Level 196 Calcium Level 7.9 L Phosphorus Level 4.0 Magnesium Level 1.9 Medications Medications Current Medications IV Flush (NS 3 ml) 3 ml PER PROTOCOL IV ; Start 06/24/18 at 06:00 Ondansetron HCl (Zofran Inj) 4 mg Q6H PRN IV NAUSEA/VOMITING Last administered on 06/25/18at 16:38; Admin Dose 4 MG; Start 06/24/18 at 06:00 Acetaminophen (Tylenol Tab) 650 mg Q6H PRN PO .PAIN 1-3 OR TEMP; Start 06/24/18 at 06:00 Acetaminophen/ Hydrocodone Bitart ([place] (5/325)) 1 tab Q6H PRN PO .PAIN 4-6 Last administered on 06/25/18at 18:17; Admin Dose 1 TAB; Start 06/24/18 at 06:00 Diphenhydramine HCl (Benadryl) 50 mg Q6 PRN PO ITCHING; Start 06/24/18 at 06:00 Docusate Sodium (Colace) 200 mg QHS PO Last administered on 06/26/18at 20:36; Admin Dose 200 MG; Start 06/24/18 at 21:00 Hydralazine HCl (Apresoline) 50 mg BID PRN PO ELEVATED BLOOD PRESSURE; Start 06/24/18 at 06:00 Acetaminophen/ Hydrocodone Bitart ([place] (5/325)) 2 tab Q6 PRN PO SEVERE PAIN LEVEL 7-10 Last administered on 06/29/18at 08:44; Admin Dose 2 TAB; Start 06/24/18 at 06:00 Levalbuterol (Xopenex Hfa) 2 puff Q4H RESP THERAPY PRN INH WHEEZING AND SOB; Start 06/24/18 at 06:00 Levothyroxine Sodium (Synthroid) 75 mcg BEFORE BREAKFAST PO Last administered on 06/29/18 07:21; Admin Dose 75 MCG; Start 06/24/18 at 07:00 Mirtazapine (Remeron) 7.5 mg HS PO Last administered on 06/28/18 21:04; Admin Dose 7.5 MG; Start 06/24/18 at 21:00 Multivit/Ca Carb/ B Cmplx/FA/Prenat (Chely-Maribel) 1 tab DAILY PO Last administered on 06/29/18 08:04; Admin Dose 1 TAB; Start 06/24/18 at 09:00 Nifedipine (Procardia Xl) 90 mg BID PO Last administered on 06/24/18 14:03; Admin Dose 90 MG; Start 06/24/18 at 09:00; Status Hold Nitroglycerin (Nitroglycerin (Sl Tab) 0.4 Mg) 1 tab Q5M PRN SL CHEST PAIN; Start 06/24/18 at 06:00 Ranitidine HCl (Zantac) 150 mg DAILY PO Last administered on 06/29/18 08:04; Admin Dose 150 MG; Start 06/24/18 at 09:00 Sevelamer Carbonate (Renvela) 1,600 mg WITH MEALS PO Last administered on 06/29/18 12:30; Admin Dose 1,600 MG; Start 06/24/18 at 07:55 Tamsulosin HCl (Flomax) 0.4 mg HS PO Last administered on 06/24/18 21:49; Admin Dose 0.4 MG; Start 06/24/18 at 21:00; Status Hold Miscellaneous Information 1 drp BID RIGHT EYE ; Start 06/24/18 at 09:00 Calcium Carbonate (Caltrate-600) 600 mg DAILY PO Last administered on 06/29/18 08:04; Admin Dose 600 MG; Start 06/24/18 at 09:00 Albumin Human 100 ml @ 100 mls/hr DURING DIALYSIS PRN IV HYPOTENSION DURING HD; Start 06/24/18 at 09:30 Morphine Sulfate (morphine) 2 mg Q4H PRN IV SEVERE PAIN LEVEL 7-10 Last administered on 06/29/18 14:33; Admin Dose 2 MG; Start 06/24/18 at 15:30 Norepinephrine 250 ml @ 1.875 mls/ hr TITRATE IV Last administered on 06/25/18 18:50; Admin Dose 28.125 MLS/HR; Start 06/25/18 at 03:00 Tramadol HCl (Ultracet) 2 tab Q6H PRN PO MODERATE PAIN LEVEL 4-6; Start 06/25/18 at 17:00 Megestrol Acetate (Megace Susp) 400 mg BID PO Last administered on 06/29/18 08:04; Admin Dose 400 MG; Start 06/25/18 at 21:00 Vasopressin 60 unit/Dextrose 60 ml @ 1.2 mls/hr Q12H IV Last administered on 06/27/18 04:54; Admin Dose 1.2 MLS/HR; Start 06/25/18 at 17:30 Phenylephrine HCl 160 mg/Dextrose 500 ml @ 18.75 mls/ hr TITRATE IV Last administered on 06/26/18 20:59; Admin Dose 52.5 MLS/HR; Start 06/25/18 at 18:00 WILFRID MOREL MD Jun 29, 2018 17:16
[2018-06-29] MEDS: VASOPRESSIN 60 UNIT in DEXTROSE 5% 57 ML IV SCH (17:30)
[2018-06-29] MEDS: DOCUSATE SODIUM 100 MG CAP PO SCH (20:32)
[2018-06-29] MEDS: MIRTAZAPINE 15 MG TAB PO SCH (20:32)
[2018-06-29] MEDS ORDERED: traZODone 50 MG TAB PO ONE (22:30)
[2018-06-29] MEDS ORDERED: LOPERAMIDE HCL 1 MG/5 ML LIQUID (10 ML UD CUP) PO ONE (22:30)
[2018-06-29] MEDS ORDERED: LOPERAMIDE 2 MG CAP PO SCH (22:30)
[2018-06-30] VITALS (21 sets, daily range): BP systolic 79–165; BP diastolic 13–93; PULSE 63–87; RESP 8–26
[2018-06-30] MEDS: morphine 4 MG/ML VIAL IV PRN ×4 (03:35→18:14)
[2018-06-30] MEDS: LEVOTHYROXINE 75 MCG TAB PO SCH (06:18)
[2018-06-30] MEDS: CALCIUM CARBONATE (600 MG CA) TAB PO SCH (08:09)
[2018-06-30] MEDS: MEGESTROL (40 MG/ML) 10ML CUP PO SCH ×2 (08:09→20:56)
[2018-06-30] MEDS: MULTIVIT/CA CARB/B CMPLX/FA TAB PO SCH (08:10)
[2018-06-30] MEDS: SEVELAMER CARBONATE 800 MG TABLET PO SCH ×3 (08:10→17:12)
[2018-06-30] MEDS: RANITIDINE 150 MG TAB PO SCH (08:10)
[2018-06-30] MEDS: NON-FORMULARY/PATIENT OWN MED (Atropine Sulfate/0.9 %Sod Chlr (Atropine 0.01%-Ns Eye Drops RIGHT EYE SCH ×2 (08:13→20:57)
--- NOTE | 2018-06-30 08:27 | PN ---
DATE: 06/30/2018 SUBJECTIVE: The patient is in serious but stable condition. The patient's chest tube continues to h ave bloody drainage. No other events noted. OBJECTIVE: VITAL SIGNS: Blood pressure is 146/81, respirations 14, pulse 67, temperature 98.6. HEENT: Head is normocephalic. NECK: Supple. HEART: Regular rate. LUNGS: Show diminished breath sounds at the base. ABDOMEN: Soft, nontender to palpation. No rebound or guarding. EXTREMITIES: Negative for clubbing, cyanosis. Positive edema. DERMATOLOGIC: No rashes. MUSCULOSKELETAL: No joint effusion. NEUROLOGIC: No change in exam. MEDICATIONS: Reviewed. LABORATORY DATA: Shows sodium 136, potassium 5.0, BUN 14, creatinine 2.42. White count 6.2, hemoglo bin 7.7, platelet count is 90. The patient's imaging studies were reviewed. Cultures have been revi ewed. ASSESSMENT AND PLAN: 1. End-stage renal disease. The patient had hemodialysis yesterday, tolerated well. Plan is for di alysis again tomorrow. 2. Hyperkalemia, improved. Continue dialysis on low potassium bath. 3. Hypernatremia, improved. Continue to monitor. 4. Anemia secondary to hemothorax, chronic kidney disease. The patient is status post blood transfu izabela. Continue Epogen. Monitor hemoglobin and hematocrit levels. 5. Mineral bone disorder. Monitor calcium and phosphorus levels. 6. Left hemothorax status post chest tube. Continue to monitor. 7. Status post shock secondary to hemodynamics. Blood pressures are stable. Continue to monitor. 8. Volume overload. Continue ultrafiltration dialysis. 9. Hypothyroidism. Continue Synthroid. 10. Benign prostatic hypertrophy. 11. Encephalopathy, improving. Dictated By: NAE MENDOZA DO NR/NTS Conf#: [id number] DID#: [id number] CC: WILFRID MOREL MD; GIOVANNI ODELL MD; JOHN FARRAR MD;*EndCC*
[2018-06-30] MEDS ORDERED: LIDOCAINE 1% (MPF) 5 ML VIAL SC ONE (09:00)
--- NOTE | 2018-06-30 09:02 | CONS ---
Consult Date/Type/Reason Admit Date/Time Jun 24, 2018 at 03:48 Initial Consult Date 06/25/18 Type of Consult Pulmonary Date/Time of Note DATE: 06/30/18 TIME: 08:59 Subjective Patient awake alert oriented this morning comfortable decreased chest tube output hemoglobin remained stable. Objective Vital Signs Date Temp Pulse Resp B/P (MAP) Pulse Ox O2 O2 Flow FiO2 Time Delivery Rate 06/30/18 98.6 67 14 146/81 98 Room Air 07:00 (102) 06/29/18 2.0 20:00 06/28/18 28 04:05 Intake and Output 06/29/18 06/29/18 06/30/18 1515:00 23:00 07:00 IntakeIntake Total 900 ml 430 ml 220 ml OutputOutput Total 1500 ml BalanceBalance -600 ml 430 ml 220 ml Exam GENERAL: Elderly appearing gentleman diminished air entry left lung otherwise remains stable awake alert VITAL SIGNS: per chart NECK: Supple. No JVD or lymphadenopathy. CARDIAC EXAM: S1, S2. No added sounds or murmurs. CHEST: Diminished air entry left lung base ABDOMEN: Soft, nontender. No guarding or rebound. EXTREMITIES: No cyanosis, clubbing or edema. NEUROLOGIC: Generalized weakness. No focal deficits. Vent Setting Fraction of Inspired Oxygen pe: 28 Results/Medications Result Diagram: 06/30/18 0405 06/30/18 0405 Results 24 hrs Laboratory Tests Test 06/30/18 04:05 White Blood Count 6.2 # Red Blood Count 2.43 L Hemoglobin 7.7 L Hematocrit 22.7 L Mean Corpuscular Volume 93.4 Mean Corpuscular Hemoglobin 31.7 Mean Corpuscular Hemoglobin Concent 33.9 Red Cell Distribution Width 14.6 H Platelet Count 90 L Mean Platelet Volume 10.8 H Immature Granulocytes % 0.300 Neutrophils % 75.1 Lymphocytes % 12.6 L Monocytes % 8.6 Eosinophils % 3.2 Basophils % 0.2 Nucleated Red Blood Cells % 0.0 Immature Granulocytes # 0.020 Neutrophils # 4.6 Lymphocytes # 0.8 Monocytes # 0.5 Eosinophils # 0.2 Basophils # 0.0 Nucleated Red Blood Cells # 0.0 Sodium Level 136 Potassium Level 5.0 Chloride Level 106 Carbon Dioxide Level 31 Anion Gap -1 L Blood Urea Nitrogen 14 Creatinine 2.42 H Est Glomerular Filtrat Rate mL/min 28 L Glucose Level 149 # Calcium Level 8.1 L Phosphorus Level 3.1 Magnesium Level 1.9 Medications Current Medications IV Flush (NS 3 ml) 3 ml PER PROTOCOL IV ; Start 06/24/18 at 06:00 Ondansetron HCl (Zofran Inj) 4 mg Q6H PRN IV NAUSEA/VOMITING Last administered on 06/25/18 16:38; Admin Dose 4 MG; Start 06/24/18 at 06:00 Acetaminophen (Tylenol Tab) 650 mg Q6H PRN PO .PAIN 1-3 OR TEMP; Start 06/24/18 at 06:00 Acetaminophen/ Hydrocodone Bitart ([place] (5/325)) 1 tab Q6H PRN PO .PAIN 4-6 Last administered on 06/25/18 18:17; Admin Dose 1 TAB; Start 06/24/18 at 06:00 Diphenhydramine HCl (Benadryl) 50 mg Q6 PRN PO ITCHING; Start 06/24/18 at 06:00 Hydralazine HCl (Apresoline) 50 mg BID PRN PO ELEVATED BLOOD PRESSURE; Start at 06:00 Acetaminophen/ Hydrocodone Bitart ([place] (5/325)) 2 tab Q6 PRN PO SEVERE PAIN LEVEL 7-10 Last administered on 06/29/18 08:44; Admin Dose 2 TAB; Start 06/24/18 at 06:00 Levalbuterol (Xopenex Hfa) 2 puff Q4H RESP THERAPY PRN INH WHEEZING AND SOB; Start 06/24/18 at 06:00 Levothyroxine Sodium (Synthroid) 75 mcg BEFORE BREAKFAST PO Last administered on 06/30/18 06:18; Admin Dose 75 MCG; Start 06/24/18 at 07:00 Mirtazapine (Remeron) 7.5 mg HS PO Last administered on 06/29/18 20:32; Admin Dose 7.5 MG; Start 06/24/18 at 21:00 Multivit/Ca Carb/ B Cmplx/FA/Prenat ([place]-Maribel) 1 tab DAILY PO Last administered on 06/30/18 08:10; Admin Dose 1 TAB; Start 06/24/18 at 09:00 Nifedipine (Procardia Xl) 90 mg BID PO Last administered on 06/24/18 14:03; Admin Dose 90 MG; Start 06/24/18 at 09:00; Status Hold Nitroglycerin (Nitroglycerin (Sl Tab) 0.4 Mg) 1 tab Q5M PRN SL CHEST PAIN; S tart 06/24/18 at 06:00 Ranitidine HCl (Zantac) 150 mg DAILY PO Last administered on 06/30/18 08:10; Admin Dose 150 MG; Start 06/24/18 at 09:00 Sevelamer Carbonate (Renvela) 1,600 mg WITH MEALS PO Last administered on 06/30/18 08:10; Admin Dose 1,600 MG; Start 06/24/18 at 07:55 Tamsulosin HCl (Flomax) 0.4 mg HS PO Last administered on 06/24/18 21:49; Admin Dose 0.4 MG; Start 06/24/18 at 21:00; Status Hold Miscellaneous Information 1 drp BID RIGHT EYE ; Start 06/24/18 at 09:00 Calcium Carbonate (Caltrate-600) 600 mg DAILY PO Last administered on 06/30/18 08:09; Admin Dose 600 MG; Start 06/24/18 at 09:00 Albumin Human 100 ml @ 100 mls/hr DURING DIALYSIS PRN IV HYPOTENSION DURING HD; Start 06/24/18 at 09:30 Morphine Sulfate (morphine) 2 mg Q4H PRN IV SEVERE PAIN LEVEL 7-10 Last adminis tered on 06/30/18 08:09; Admin Dose 2 MG; Start 06/24/18 at 15:30 Norepinephrine 250 ml @ 1.875 mls/ hr TITRATE IV Last administered on 06/25/18 18:50; Admin Dose 28.125 MLS/HR; Start 06/25/18 at 03:00 Tramadol HCl (Ultracet) 2 tab Q6H PRN PO MODERATE PAIN LEVEL 4-6; Start 06/25/18 at 17:00 Megestrol Acetate (Megace Susp) 400 mg BID PO Last administered on 06/30/18 08:09; Admin Dose 400 MG; Start 06/25/18 at 21:00 Vasopressin 60 unit/Dextrose 60 ml @ 1.2 mls/hr Q12H IV Last administered on 06/27/18 04:54; Admin Dose 1.2 MLS/HR; Start 06/25/18 at 17:30 Phenylephrine HCl 160 mg/Dextrose 500 ml @ 18.75 mls/ hr TITRATE IV Last administered on 06/26/18at 20:59; Admin Dose 52.5 MLS/HR; Start 06/25/18 at 18:00 Lidocaine (Xylocaine 1% (Mpf)) 5 ml ONCE ONCE SC ; Start 06/30/18 at 09:00; Stop 06/30/18 at 09:01 Assessment/Plan Hospital Course (Demo Recall) Assessment 1. Left pleural effusion status post thoracentesis complicated by hemothorax with massive blood loss requiring blood transfusion of multiple units of packed red blood cells FFP 2. Coagulopathy 3. End-stage renal failure on hemodialysis 4. Thrombocytopenia Plan 1. Transfuse 1 for the unit packed red blood cells 2. Continue chest tube drainage removed when output less than 100 cc may r equire CT of the chest prior to removal 3. Physical therapy encourage out of bed 4. Continue hemodialysis as tolerated 5. dc femoral line, place picc. cc 40mins ok for tele LAVELLE GREGORIO MD, FCCP Jun 30, 2018 09:02
[2018-06-30] MEDS: LOPERAMIDE HCL 1 MG/5 ML LIQUID (10 ML UD CUP) GTB PRN (12:21)
--- NOTE | 2018-06-30 12:27 | PN ---
Date/Time of Note Date/Time of Note DATE: 06/30/18 TIME: 12:26 Assessment/Plan Lines/Catheters IV Catheter Type (from Nrsg): Central Line Assessment/Plan Assessment/Plan Has post left chest tube placement Tube drainage S2 110 cc past 24-hour Hemoglobin more stable 7.3 Continue chest tube drainage And suction monitor hemoglobin levels Correct coagulopathy Subjective 24 Hr Interval Summary Constitutional: no complaints, improved, ambulates, BM, flatus, urine output Pain Control: well controlled Exam/Review of Systems Vital Signs Vitals Vital Signs Date Temp Pulse Resp B/P (MAP) Pulse Ox O2 O2 Flow FiO2 Time Delivery Rate 06/30/18 73 10 148/85 99 Room Air 12:00 (106) 06/30/18 98.6 07:00 06/29/18 2.0 20:00 06/28/18 28 04:05 Intake and Output 06/29/18 06/29/18 06/30/18 1515:00 23:00 07:00 IntakeIntake Total 900 ml 430 ml 220 ml OutputOutput Total 1500 ml BalanceBalance -600 ml 430 ml 220 ml Exam Eyes: nl conjunctiva, EOMI, nl lids, nl sclera ENMT: nl external ears & nose, nl lips & teeth, nl nasal mucosa & septum, mucosa pink and moist Neck: supple, non-tender Respiratory: clear to auscultation, normal air movement Cardiovascular: regular rate and rhythm, nl pulses Gastrointestinal: soft, nl liver, spleen, non-tender Musculoskeletal: nl extremities to inspection, nl gait and stance Results Result Diagram: 06/30/185 06/30/185 FRANCO CASTELAN MD Jun 30, 2018 12:27
[2018-06-30] MEDS: HYDROCODONE/APAP (5/325) TAB PO PRN (12:42)
--- NOTE | 2018-06-30 15:45 | PN ---
Date/Time of Note Date/Time of Note DATE: 06/30/18 TIME: 15:44 Assessment/Plan VTE Prophylaxis Risk score (from Ns)>0 risk: 8 SCD applied (from [facility] [place] Yes Pharmacological prophylaxis: heparin Lines/Catheters IV Catheter Type (from Rust): Mid Line Assessment/Plan Hospital Course Mild resp distress with arthur pleural effusions -s/p l sided thoracentesis with drainage of 1L -post thoracentesis complication of hemothorax, s.p bedside L chest tube drainage -serial CXRs -continue CT and underwater seal, management per CTS Severe anemia -acute on chronic 2/2 blood loss -Continue transfusions as needed ESRD on HD: Nephrology for dialysis (Stephanie Garza) Diarrhea: - Check C DIff - Loperamide PRN 6. BPH: Continue home med 7. Hypothyroidism: Continue Synthroid 8. moderate pericardial effusion -f/u echo Prophylaxis: SCDs Dispo: -continue ICU care and support, wean off pressors, serial h/h. Result Diagram: 06/30/18 0405 06/30/18 0405 Results 24hrs Laboratory Tests Test 06/30/18 04:05 White Blood Count 6.2 # Red Blood Count 2.43 L Hemoglobin 7.7 L Hematocrit 22.7 L Mean Corpuscular Volume 93.4 Mean Corpuscular Hemoglobin 31.7 Mean Corpuscular Hemoglobin Concent 33.9 Red Cell Distribution Width 14.6 H Platelet Count 90 L Mean Platelet Volume 10.8 H Immature Granulocytes % 0.300 Neutrophils % 75.1 Lymphocytes % 12.6 L Monocytes % 8.6 Eosinophils % 3.2 Basophils % 0.2 Nucleated Red Blood Cells % 0.0 Immature Granulocytes # 0.020 Neutrophils # 4.6 Lymphocytes # 0.8 Monocytes # 0.5 Eosinophils # 0.2 Basophils # 0.0 Nucleated Red Blood Cells # 0.0 Sodium Level 136 Potassium Level 5.0 Chloride Level 106 Carbon Dioxide Level 31 Anion Gap -1 L Blood Urea Nitrogen 14 Creatinine 2.42 H Est Glomerular Filtrat Rate mL/min 28 L Glucose Level 149 # Calcium Level 8.1 L Phosphorus Level 3.1 Magnesium Level 1.9 Subjective 24 Hr Interval Summary Free Text/Dictation Transfused 1 unit PRBCs Copious diarrhea has developed, this is his only complaint Minimal chest tube output Exam/Review of Systems Exam Vitals Vital Signs Date Temp Pulse Resp B/P (MAP) Pulse Ox O2 O2 Flow FiO2 Time Delivery Rate 06/30/18 80 22 165/93 97 Room Air 14:00 (117) 06/30/18 98.6 07:00 06/29/18 2.0 20:00 06/28/18 28 04:05 Intake and Output 06/29/18 06/29/18 06/30/18 1515:00 23:00 07:00 IntakeIntake Total 900 ml 430 ml 220 ml OutputOutput Total 1500 ml BalanceBalance -600 ml 430 ml 220 ml Constitutional: alert, oriented, well developed Psych: no complaints, nl mood/affect Head: normocephalic, atraumatic Eyes: nl conjunctiva, EOMI, nl lids, nl sclera, PERRL ENMT: nl external ears & nose, nl lips & teeth, nl nasal mucosa & septum Neck: supple, non-tender Respiratory: clear to auscultation, normal air movement Cardiovascular: regular rate and rhythm, nl pulses Gastrointestinal: soft, nl liver, spleen, non-tender Musculoskeletal: nl extremities to inspection, nl gait and stance Extremities: normal pulses Neurological: 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, nl mental status, nl speech, nl strength Skin: nl turgor; No rash or lesions Lymph: nl lymph nodes Results Results 24hrs Laboratory Tests Test 06/30/18 04:05 White Blood Count 6.2 # Red Blood Count 2.43 L Hemoglobin 7.7 L Hematocrit 22.7 L Mean Corpuscular Volume 93.4 Mean Corpuscular Hemoglobin 31.7 Mean Corpuscular Hemoglobin Concent 33.9 Red Cell Distribution Width 14.6 H Platelet Count 90 L Mean Platelet Volume 10.8 H Immature Granulocytes % 0.300 Neutrophils % 75.1 Lymphocytes % 12.6 L Monocytes % 8.6 Eosinophils % 3.2 Basophils % 0.2 Nucleated Red Blood Cells % 0.0 Immature Granulocytes # 0.020 Neutrophils # 4.6 Lymphocytes # 0.8 Monocytes # 0.5 Eosinophils # 0.2 Basophils # 0.0 Nucleated Red Blood Cells # 0.0 Sodium Level 136 Potassium Level 5.0 Chloride Level 106 Carbon Dioxide Level 31 Anion Gap -1 L Blood Urea Nitrogen 14 Creatinine 2.42 H Est Glomerular Filtrat Rate mL/min 28 L Glucose Level 149 # Calcium Level 8.1 L Phosphorus Level 3.1 Magnesium Level 1.9 Medications Medication Current Medications IV Flush (NS 3 ml) 3 ml PER PROTOCOL IV ; Start 06/24/18 at 06:00 Ondansetron HCl (Zofran Inj) 4 mg Q6H PRN IV NAUSEA/VOMITING Last administered on 06/25/18 16:38; Admin Dose 4 MG; Start 06/24/18 at 06:00 Acetaminophen (Tylenol Tab) 650 mg Q6H PRN PO .PAIN 1-3 OR TEMP; Start 06/24/18 at 06:00 Acetaminophen/ Hydrocodone Bitart ([place] (5/325)) 1 tab Q6H PRN PO .PAIN 4-6 Last administered on 06/25/18 18:17; Admin Dose 1 TAB; Start 06/24/18 at 06:00 Diphenhydramine HCl (Benadryl) 50 mg Q6 PRN PO ITCHING; Start 06/24/18 at 06:00 Hydralazine HCl (Apresoline) 50 mg BID PRN PO ELEVATED BLOOD PRESSURE; Start 06/24/18 at 06:00 Acetaminophen/ Hydrocodone Bitart ([place] (5/325)) 2 tab Q6 PRN PO SEVERE PAIN LEVEL 7-10 Last administered on 06/30/18 12:42; Admin Dose 2 TAB; Start 06/24/18 at 06:00 Levalbuterol (Xopenex Hfa) 2 puff Q4H RESP THERAPY PRN INH WHEEZING AND SOB; Start 06/24/18 at 06:00 Levothyroxine Sodium (Synthroid) 75 mcg BEFORE BREAKFAST PO Last administered on 06/30/18 06:18; Admin Dose 75 MCG; Start 06/24/18 at 07:00 Mirtazapine (Remeron) 7.5 mg HS PO Last administered on 06/29/18 20:32; Admin Dose 7.5 MG; Start 06/24/18 at 21:00 Multivit/Ca Carb/ B Cmplx/FA/Prenat ([place]-Maribel) 1 tab DAILY PO Last administered on 06/30/18 08:10; Admin Dose 1 TAB; Start 06/24/18 at 09:00 Nifedipine (Procardia Xl) 90 mg BID PO Last administered on 06/24/18 14:03; Admin Dose 90 MG; Start 06/24/18 at 09:00; Status Hold Nitroglycerin (Nitroglycerin (Sl Tab) 0.4 Mg) 1 tab Q5M PRN SL CHEST PAIN; Start 06/24/18 at 06:00 Ranitidine HCl (Zantac) 150 mg DAILY PO Last administered on 06/30/18 08:10; Admin Dose 150 MG; Start 06/24/18 at 09:00 Sevelamer Carbonate (Renvela) 1,600 mg WITH MEALS PO Last administered on 06/30/18at 11:41; Admin Dose 1,600 MG; Start 06/24/18 at 07:55 Tamsulosin HCl (Flomax) 0.4 mg HS PO Last administered on 06/24/18at 21:49; Admin Dose 0.4 MG; Start 06/24/18 at 21:00; Status Hold Miscellaneous Information 1 drp BID RIGHT EYE ; Start 06/24/18 at 09:00 Calcium Carbonate (Caltrate-600) 600 mg DAILY PO Last administered on 06/30/18 08:09; Admin Dose 600 MG; Start 06/24/18 at 09:00 Albumin Human 100 ml @ 100 mls/hr DURING DIALYSIS PRN IV HYPOTENSION DURING HD; Start 06/24/18 at 09:30 Morphine Sulfate (morphine) 2 mg Q4H PRN IV SEVERE PAIN LEVEL 7-10 Last administered on 06/30/18at 13:53; Admin Dose 2 MG; Start 06/24/18 at 15:30 Tramadol HCl (Ultracet) 2 tab Q6H PRN PO MODERATE PAIN LEVEL 4-6; Start 06/25/18 at 17:00 Megestrol Acetate (Megace Susp) 400 mg BID PO Last administered on 06/30/18 08:09; Admin Dose 400 MG; Start 06/25/18 at 21:00 Loperamide HCl (Imodium) 2 mg QID PRN GTB DIARRHEA Last administered on 06/30/18 12:21; Admin Dose 2 MG; Start 06/30/18 at 10:30 JOHN FARRAR MD Jun 30, 2018 15:45
[2018-06-30] MEDS: MIRTAZAPINE 15 MG TAB PO SCH (20:56)
[2018-07-01] VITALS (31 sets, daily range): BP systolic 90–186; BP diastolic 37–85; PULSE 63–76; RESP 8–20
[2018-07-01] MEDS: morphine 4 MG/ML VIAL IV PRN ×4 (06:33→22:22)
[2018-07-01] MEDS: LEVOTHYROXINE 75 MCG TAB PO SCH (06:33)
[2018-07-01] MEDS: HYDROCODONE/APAP (5/325) TAB PO PRN (07:20)
--- NOTE | 2018-07-01 08:12 | PN ---
DATE: 07/01/2018 SUBJECTIVE: The patient is stable, no events overnight, was transferred from ICU to telemetry. OBJECTIVE: VITAL SIGNS: Blood pressure is 104/50, pulse 71, respiration 18, temperature 98.3. HEENT: Head is normocephalic. NECK: Supple. HEART: Regular rate. LUNGS: Show diminished breath sounds at the base. ABDOMEN: Soft, nontender to palpation. No rebound or guarding. EXTREMITIES: Negative for clubbing, cyanosis, no edema. DERMATOLOGIC: No rashes. MUSCULOSKELETAL: No joint effusion. NEUROLOGIC: No change in exam. MEDICATIONS: The patient's medications have been reviewed. LABORATORY DATA: Shows sodium 135, potassium 5.8, BUN 20, creatinine 3.11. White count 7.5, hemoglo bin 9.5, platelet count is 106. ASSESSMENT AND PLAN: 1. End-stage renal disease. The patient is scheduled for hemodialysis today. We will dialyze for 3 hours 2k bath, calcium 2.5. 2. Hyperkalemia. The patient will be dialyzed on a low potassium bath. Encourage renal diet. 3. Hyponatremia, improved. Continue to monitor. 4. Anemia secondary to hemothorax, chronic kidney disease. The patient is status post blood transfu izabela. Continue Epogen. Monitor hemoglobin and hematocrit levels. 5. Mineral bone disorder calcium and phosphorus levels. 6. Left hemothorax status post chest tube. Continue to monitor. 7. Status post shock secondary to hemodynamics. Blood pressure has been stable, continue to monitor . 8. Volume overload. Continue ultrafiltration dialysis. 9. Hypothyroidism, continue Synthroid. 10. Benign prostatic hypertrophy. 11. Encephalopathy, improving. Dictated By: NAE MENDOZA DO NR/NTS Conf#: [id number] DID#: [id number] CC: GIOVANNI ODELL MD;*EndCC*
[2018-07-01] MEDS: SEVELAMER CARBONATE 800 MG TABLET PO SCH ×3 (08:50→17:42)
[2018-07-01] MEDS: MULTIVIT/CA CARB/B CMPLX/FA TAB PO SCH (08:51)
[2018-07-01] MEDS: MEGESTROL (40 MG/ML) 10ML CUP PO SCH (09:00)
[2018-07-01] MEDS: RANITIDINE 150 MG TAB PO SCH ×2 (09:00→12:55)
[2018-07-01] MEDS: CALCIUM CARBONATE (600 MG CA) TAB PO SCH ×2 (09:00→12:55)
[2018-07-01] MEDS: NON-FORMULARY/PATIENT OWN MED (Atropine Sulfate/0.9 %Sod Chlr (Atropine 0.01%-Ns Eye Drops RIGHT EYE SCH ×2 (09:00→21:00)
--- NOTE | 2018-07-01 13:05 | PN ---
DATE: 07/01/2018 SUBJECTIVE: The patient is stable this morning. No evidence of ongoing bleeding. Hemoglobin remain ed stable following final transfusion. Chest tube has diminished output. OBJECTIVE: VITAL SIGNS: Temperature 98, pulse 64, blood pressure 148/61, O2 saturation 96% on 2 liters' nasal c annula. NECK: Supple. No JVD or lymphadenopathy. CARDIAC: S1, S2. No added sounds or murmurs. CHEST: Diminished air entry bilaterally, but no rales or wheezes. ABDOMEN: Soft, nontender. No guarding or rebound. EXTREMITIES: No cyanosis, clubbing or edema. NEUROLOGIC: Grossly intact. No focal deficits. IMPRESSION AND PLAN: Status post hemothorax with massive bleed and hypovolemic shock. The patient a ppears to have no further bleeding. Hemoglobin remained stable. I will order CT chest, but likely c hest tube can be removed by thoracic surgery at this point. The patient has end-stage renal failure and will require continued hemodialysis. Dictated By: LAVELLE GREGORIO MD SV/ERICKA Conf#: [id number] DID#: [id number] CC: GIOVANNI ODELL MD; WILFRID MOREL MD; JOHN FARRAR MD;*EndCC*
--- NOTE | 2018-07-01 17:14 | PN ---
Date/Time of Note Date/Time of Note DATE: 07/01/18 TIME: 17:12 Assessment/Plan VTE Prophylaxis Risk score (from Ns)>0 risk: 6 SCD applied (from Nsg): Yes Pharmacological prophylaxis: heparin Lines/Catheters IV Catheter Type (from Nrsg): Mid Line Assessment/Plan Hospital Course 58 yo male with ESRD on HD who presented with SOB from pleural effusions. Thoracentesis was performed which resulted in massive hemothorax requiring chest tube Hemothorax: -s/p l sided thoracentesis with drainage of 1L -post thoracentesis complication of hemothorax, s.p bedside L chest tube drainage -serial CXRs -continue CT and underwater seal, management per CTS Acute blood loss anemia -acute on chronic 2/2 blood loss -Continue transfusions as needed ESRD on HD: Nephrology for dialysis (Stephanie Garza) Diarrhea: - Check C DIff - Loperamide PRN 6. BPH: Continue home med 7. Hypothyroidism: Continue Synthroid 8. moderate pericardial effusion -f/u echo Prophylaxis: SCDs Dispo: to SNF when stable Result Diagram: 07/01/18 0505 07/01/18 0505 Results 24hrs Laboratory Tests Test 07/01/18 02:40 07/01/18 04:55 07/01/18 05:05 Bedside Glucose 97 Lab Scanned Report BLOOD TRANSFUSION White Blood Count 7.5 # Red Blood Count 3.03 #L Hemoglobin 9.5 #L Hematocrit 27.8 #L Mean Corpuscular Volume 91.7 Mean Corpuscular Hemoglobin 31.4 Mean Corpuscular 34.2 Hemoglobin Concent Red Cell Distribution Width 15.2 H Platelet Count 106 L Mean Platelet Volume 10.0 Immature Granulocytes % 0.300 Neutrophils % 72.5 Lymphocytes % 14.2 L Monocytes % 9.2 Eosinophils % 3.7 Basophils % 0.1 Nucleated Red Blood Cells % 0.0 Immature Granulocytes # 0.020 Neutrophils # 5.4 Lymphocytes # 1.1 Monocytes # 0.7 Eosinophils # 0.3 Basophils # 0.0 Nucleated Red Blood Cells # 0.0 Sodium Level 135 Potassium Level 5.8 H Chloride Level 101 Carbon Dioxide Level 29 Anion Gap 5 Blood Urea Nitrogen 20 Creatinine 3.11 H Est Glomerular Filtrat 21 L Rate mL/min Glucose Level 70 # Calcium Level 8.3 L Phosphorus Level 3.6 Magnesium Level 2.0 Subjective 24 Hr Interval Summary Free Text/Dictation Patinet stable, no complaints Receiving HD today Minimal chest tube output Exam/Review of Systems Exam Vitals Vital Signs Date Temp Pulse Resp B/P (MAP) Pulse Ox O2 O2 Flow FiO2 Time Delivery Rate 07/01/18 64 16:13 07/01/18 98.2 19 104/55 94 15:05 (71) 07/01/18 Nasal 2.0 10:31 Cannula 06/30/18 21 23:09 Intake and Output 06/30/18 06/30/18 07/01/18 1414:59 22:59 06:59 IntakeIntake Total 895 ml 250 ml 100 ml OutputOutput Total 50 ml 85 ml BalanceBalance 845 ml 165 ml 100 ml Constitutional: alert, oriented, well developed Psych: no complaints, nl mood/affect Head: normocephalic, atraumatic Eyes: nl conjunctiva, EOMI, nl lids, nl sclera, PERRL ENMT: nl external ears & nose, nl lips & teeth, nl nasal mucosa & septum Neck: supple, non-tender Respiratory: clear to auscultation, normal air movement Cardiovascular: regular rate and rhythm, nl pulses Gastrointestinal: soft, nl liver, spleen, non-tender Musculoskeletal: nl extremities to inspection, nl gait and stance Extremities: normal pulses 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2 Eosinophils % 3.7 Basophils % 0.1 Nucleated Red Blood Cells % 0.0 Immature Granulocytes # 0.020 Neutrophils # 5.4 Lymphocytes # 1.1 Monocytes # 0.7 Eosinophils # 0.3 Basophils # 0.0 Nucleated Red Blood Cells # 0.0 Sodium Level 135 Potassium Level 5.8 H Chloride Level 101 Carbon Dioxide Level 29 Anion Gap 5 Blood Urea Nitrogen 20 Creatinine 3.11 H Est Glomerular Filtrat 21 L Rate mL/min Glucose Level 70 # Calcium Level 8.3 L Phosphorus Level 3.6 Magnesium Level 2.0 Medications Medication Current Medications IV Flush (NS 3 ml) 3 ml PER PROTOCOL IV ; Start 06/24/18 at 06:00 Ondansetron HCl (Zofran Inj) 4 mg Q6H PRN IV NAUSEA/VOMITING Last administered on 06/25/18at 16:38; Admin Dose 4 MG; Start 06/24/18 at 06:00 Acetaminophen (Tylenol Tab) 650 mg Q6H PRN PO .PAIN 1-3 OR TEMP; Start 06/24/18 at 06:00 Acetaminophen/ Hydrocodone Bitart ([place] (5/325)) 1 tab Q6H PRN PO .PAIN 4-6 Last administered on 06/25/18at 18:17; Admin Dose 1 TAB; Start 06/24/18 at 06:00 Diphenhydramine HCl (Benadryl) 50 mg Q6 PRN PO ITCHING; Start 06/24/18 at 06:00 Hydralazine HCl (Apresoline) 50 mg BID PRN PO ELEVATED BLOOD PRESSURE; Start 06/24/18 at 06:00 Acetaminophen/ Hydrocodone Bitart ([place] (5/325)) 2 tab Q6 PRN PO SEVERE PAIN LEVEL 7-10 Last administered on 07/01/18 07:20; Admin Dose 2 TAB; Start 06/24/18 at 06:00 Levalbuterol (Xopenex Hfa) 2 puff Q4H RESP THERAPY PRN INH WHEEZING AND SOB; Start 06/24/18 at 06:00 Levothyroxine Sodium (Synthroid) 75 mcg BEFORE BREAKFAST PO Last administered on 07/01/18 06:33; Admin Dose 75 MCG; Start 06/24/18 at 07:00 Mirtazapine (Remeron) 7.5 mg HS PO Last administered on 06/30/18at 20:56; Admin Dose 7.5 MG; Start 06/24/18 at 21:00 Multivit/Ca Carb/ B Cmplx/FA/Prenat ([place]-Maribel) 1 tab DAILY PO Last administ ered on 07/01/18 08:51; Admin Dose 1 TAB; Start 06/24/18 at 09:00 Nifedipine (Procardia Xl) 90 mg BID PO Last administered on 06/24/18 14:03; Admin Dose 90 MG; Start 06/24/18 at 09:00; Status Hold Nitroglycerin (Nitroglycerin (Sl Tab) 0.4 Mg) 1 tab Q5M PRN SL CHEST PAIN; Start 06/24/18 at 06:00 Ranitidine HCl (Zantac) 150 mg DAILY PO Last administered on 07/01/18 12:55; Admin Dose 150 MG; Start 06/24/18 at 09:00 Sevelamer Carbonate (Renvela) 1,600 mg WITH MEALS PO Last administered on 07/01 12:55; Admin Dose 1,600 MG; Start 06/24/18 at 07:55 Tamsulosin HCl (Flomax) 0.4 mg HS PO Last administered on 06/24/18 21:49; Admin Dose 0.4 MG; Start 06/24/18 at 21:00; Status Hold Miscellaneous Information 1 drp BID RIGHT EYE ; Start 06/24/18 at 09:00 Calcium Carbonate (Caltrate-600) 600 mg DAILY PO Last administered on 07/01/18 12:55; Admin Dose 600 MG; Start 06/24/18 at 09:00 Albumin Human 100 ml @ 100 mls/hr DURING DIALYSIS PRN IV HYPOTENSION DURING HD; Start 06/24/18 at 09:30 Morphine Sulfate (morphine) 2 mg Q4H PRN IV SEVERE PAIN LEVEL 7-10 Last administered on 07/01/18 12:56; Admin Dose 2 MG; Start 06/24/18 at 15:30 Tramadol HCl (Ultracet) 2 tab Q6H PRN PO MODERATE PAIN LEVEL 4-6; Start 06/25/18 at 17:00 Loperamide HCl (Imodium) 2 mg QID PRN GTB DIARRHEA Last administered on 06/30/18 12:21; Admin Dose 2 MG; Start 06/30/18 at 10:30 JOHN FARRAR MD Jul 01, 2018 17:14
[2018-07-01] MEDS: MIRTAZAPINE 15 MG TAB PO SCH (21:00)
[2018-07-02] VITALS (12 sets, daily range): BP systolic 108–135; BP diastolic 46–65; PULSE 59–98; RESP 17–19
[2018-07-02] MEDS: morphine 4 MG/ML VIAL IV PRN ×3 (01:55→09:07)
[2018-07-02] MEDS: HYDROCODONE/APAP (5/325) TAB PO PRN (04:14)
[2018-07-02] MEDS: LEVOTHYROXINE 75 MCG TAB PO SCH (05:33)
[2018-07-02] MEDS: NON-FORMULARY/PATIENT OWN MED (Atropine Sulfate/0.9 %Sod Chlr (Atropine 0.01%-Ns Eye Drops RIGHT EYE SCH ×2 (09:00→20:34)
[2018-07-02] MEDS: MULTIVIT/CA CARB/B CMPLX/FA TAB PO SCH (09:03)
[2018-07-02] MEDS: CALCIUM CARBONATE (600 MG CA) TAB PO SCH (09:03)
[2018-07-02] MEDS: RANITIDINE 150 MG TAB PO SCH (09:03)
[2018-07-02] MEDS: SEVELAMER CARBONATE 800 MG TABLET PO SCH ×3 (09:03→17:09)
--- NOTE | 2018-07-02 12:11 | PN ---
DATE: 07/02/2018 SUBJECTIVE: The patient is stable, no events overnight. OBJECTIVE: VITAL SIGNS: Blood pressure is 115/52, respirations 19, pulse 67, temperature 98.1. HEENT: Head is normocephalic. NECK: Supple. HEART: Regular rate. LUNGS: Show diminished breath sounds at the base. ABDOMEN: Soft, nontender to palpation without rebound or guarding. EXTREMITIES: Negative for clubbing, cyanosis, no edema. DERMATOLOGIC: No rashes. MUSCULOSKELETAL: No joint effusion. NEUROLOGIC: No change in exam. MEDICATIONS: Reviewed. LABORATORY DATA: Reviewed. ASSESSMENT AND PLAN: 1. End-stage renal disease. The patient had hemodialysis yesterday, tolerated well. Plan is for di alysis tomorrow. 2. Hyperkalemia. The patient will be dialyzed on low potassium bath. 3. Hypernatremia, improved. 4. Anemia secondary to hemothorax, chronic kidney disease. The patient is status post blood transfu izabela. Continue Epogen. 5. Mineral bone disorder. Monitor calcium and phosphorus levels. 6. Left hemothorax status post chest tube. Continue to monitor. 7. Status post shock, etiology is likely secondary to hemodynamics, blood pressure has been stable, continue to monitor. 8. Volume overload. Continue ultrafiltration dialysis. 9. Hypothyroidism. Continue Synthroid. 10. Benign prostatic hypertrophy. 11. Encephalopathy, improving. Dictated By: NAE MENDOZA DO NR/NTS Conf#: [id number] DID#: [id number] CC: JOHN FARARR MD; GIOVANNI ODELL MD; WILFRID MOREL MD;*End*
--- NOTE | 2018-07-02 13:59 | PN ---
Date/Time of Note Date/Time of Note DATE: 07/02/18 TIME: 13:55 Assessment/Plan VTE Prophylaxis Risk score (from Nsg)>0 risk: 7 SCD applied (from Nsg): Yes Pharmacological prophylaxis: heparin Lines/Catheters IV Catheter Type (from Nrsg): Mid Line Assessment/Plan Hospital Course 58 yo male with ESRD on HD who presented with SOB from pleural effusions. Thoracentesis was performed which resulted in massive hemothorax requiring chest tube Hemothorax: -s/p l sided thoracentesis with drainage of 1L -post thoracentesis complication of hemothorax, s.p bedside L chest tube drainage -Removal of chest tube per Dr Paiz Acute blood loss anemia -acute on chronic 2/2 blood loss -Continue transfusions as needed ESRD on HD - HD per nephrology Diarrhea: - Resolved Anemia of CKD: - Transfuse PRN Hypothyroidism: Continue Synthroid moderate pericardial effusion -f/u echo Prophylaxis: SCDs Dispo: to SNF when stable Result Diagram: 07/01/18 0505 07/01/18 0505 Subjective 24 Hr Interval Summary Free Text/Dictation Minimal output from chest tube I have contacted Dr Piaz for removal Patient is doiing well. No compalitns Exam/Review of Systems Exam Vitals Vital Signs Date Temp Pulse Resp B/P (MAP) Pulse Ox O2 O2 Flow FiO2 Time Delivery Rate 07/02/18 65 13:11 07/02/18 98.4 18 135/63 96 11:20 (87) 07/01/18 Nasal 2.0 10:31 Cannula 06/30/18 21 23:09 Intake and Output 07/01/18 07/01/18 07/02/18 1515:00 23:00 07:00 IntakeIntake Total 400 ml 400 ml OutputOutput Total 2400 ml 85 ml 120 ml BalanceBalance -2400 ml 315 ml 280 ml Constitutional: alert, oriented, well developed Psych: no complaints, nl mood/affect Head: normocephalic, atraumatic Eyes: nl conjunctiva, EOMI, nl lids, nl sclera, PERRL ENMT: nl external ears & nose, nl lips & teeth, nl nasal mucosa & septum Neck: supple, non-tender Respiratory: clear to auscultation, normal air movement Cardiovascular: regular rate and rhythm, nl pulses Gastrointestinal: soft, nl liver, spleen, non-tender Musculoskeletal: nl extremities to inspection, nl gait and stance Extremities: normal pulses 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, nl mental status, nl speech, nl strength Skin: nl turgor; No rash or lesions Lymph: nl lymph nodes Medications Medication Current Medications IV Flush (NS 3 ml) 3 ml PER PROTOCOL IV ; Start 06/24/18 at 06:00 Ondansetron HCl (Zofran Inj) 4 mg Q6H PRN IV NAUSEA/VOMITING Last administered on 06/25/18 16:38; Admin Dose 4 MG; Start 06/24/18 at 06:00 Acetaminophen (Tylenol Tab) 650 mg Q6H PRN PO .PAIN 1-3 OR TEMP; Start 06/24/18 at 06:00 Acetaminophen/ Hydrocodone Bitart ([place] (5/325)) 1 tab Q6H PRN PO .PAIN 4-6 Last administered on 06/25/18 18:17; Admin Dose 1 TAB; Start 06/24/18 at 06:00 Diphenhydramine HCl (Benadryl) 50 mg Q6 PRN PO ITCHING; Start 06/24/18 at 06:00 Hydralazine HCl (Apresoline) 50 mg BID PRN PO ELEVATED BLOOD PRESSURE; Start 06/24/18 at 06:00 Acetaminophen/ Hydrocodone Bitart ([place] (5/325)) 2 tab Q6 PRN PO SEVERE PAIN LEVEL 7-10 Last administered on 07/01/18 07:20; Admin Dose 2 TAB; Start 06/24/18 at 06:00 Levalbuterol (Xopenex Hfa) 2 puff Q4H RESP THERAPY PRN INH WHEEZING AND SOB; Start 06/24/18 at 06:00 Levothyroxine Sodium (Synthroid) 75 mcg BEFORE BREAKFAST PO Last administered on 07/02/18 05:33; Admin Dose 75 MCG; Start 06/24/18 at 07:00 Mirtazapine (Remeron) 7.5 mg HS PO Last administered on 07/01/18 21:00; Admin Dose 7.5 MG; Start 06/24/18 at 21:00 Multivit/Ca Carb/ B Cmplx/FA/Prenat (Chely-Maribel) 1 tab DAILY PO Last administ ered on 07/02/18 09:03; Admin Dose 1 TAB; Start 06/24/18 at 09:00 Nifedipine (Procardia Xl) 90 mg BID PO Last administered on 06/24/18 14:03; Admin Dose 90 MG; Start 06/24/18 at 09:00; Status Hold Nitroglycerin (Nitroglycerin (Sl Tab) 0.4 Mg) 1 tab Q5M PRN SL CHEST PAIN; Start 06/24/18 at 06:00 Ranitidine HCl (Zantac) 150 mg DAILY PO Last administered on 07/02/18 09:03; Admin Dose 150 MG; Start 06/24/18 at 09:00 Sevelamer Carbonate (Renvela) 1,600 mg WITH MEALS PO Last administered on 07/02 12:04; Admin Dose 1,600 MG; Start 06/24/18 at 07:55 Tamsulosin HCl (Flomax) 0.4 mg HS PO Last administered on 06/24/18 21:49; Admin Dose 0.4 MG; Start 06/24/18 at 21:00; Status Hold Miscellaneous Information 1 drp BID RIGHT EYE ; Start 06/24/18 at 09:00 Calcium Carbonate (Caltrate-600) 600 mg DAILY PO Last administered on 07/02/18 09:03; Admin Dose 600 MG; Start 06/24/18 at 09:00 Albumin Human 100 ml @ 100 mls/hr DURING DIALYSIS PRN IV HYPOTENSION DURING HD; Start 06/24/18 at 09:30 Tramadol HCl (Ultracet) 2 tab Q6H PRN PO MODERATE PAIN LEVEL 4-6; Start 06/25/18 at 17:00 Loperamide HCl (Imodium) 2 mg QID PRN GTB DIARRHEA Last administered on 06/30/18 12:21; Admin Dose 2 MG; Start 06/30/18 at 10:30 Morphine Sulfate (morphine) 2 mg Q4H PRN IV SEVERE PAIN LEVEL 7-10; Start 07/02/18 at 11:00 JOHN FARRAR MD Jul 02, 2018 13:59
--- NOTE | 2018-07-02 15:29 | CONS ---
Consult Date/Type/Reason Admit Date/Time Jun 24, 2018 at 03:48 Initial Consult Date 06/25/18 Type of Consult Pulmonary Date/Time of Note DATE: 07/02/18 TIME: 15:28 Subjective Patient is comfortable this morning with decreased chest tube output. Objective Vital Signs Date Temp Pulse Resp B/P (MAP) Pulse Ox O2 O2 Flow FiO2 Time Delivery Rate 07/02/18 98.1 72 18 110/51 96 15:04 (70) 07/01/18 Nasal 2.0 10:31 Cannula 06/30/18 21 23:09 Intake and Output 07/01/18 07/01/18 07/02/18 1515:00 23:00 07:00 IntakeIntake Total 400 ml 400 ml OutputOutput Total 2400 ml 85 ml 120 ml BalanceBalance -2400 ml 315 ml 280 ml Exam GENERAL: Elderly appearing gentleman appears comfortable at rest no acute distress VITAL SIGNS: per chart NECK: Supple. No JVD or lymphadenopathy. CARDIAC EXAM: S1, S2. No added sounds or murmurs. CHEST: Diminished air entry left lung ABDOMEN: Soft, nontender. No guarding or rebound. EXTREMITIES: No cyanosis, clubbing or edema. NEUROLOGIC: Generalized weakness. No focal deficits. Vent Setting Fraction of Inspired Oxygen pe: 21 Results/Medications Result Diagram: 07/01/18 0505 07/01/18 [address] chest Complex left hemothorax with minimal free fluid. Medications Current Medications IV Flush (NS 3 ml) 3 ml PER PROTOCOL IV ; Start 06/24/18 at 06:00 Ondansetron HCl (Zofran Inj) 4 mg Q6H PRN IV NAUSEA/VOMITING Last administered on 06/25/18at 16:38; Admin Dose 4 MG; Start 06/24/18 at 06:00 Acetaminophen (Tylenol Tab) 650 mg Q6H PRN PO .PAIN 1-3 OR TEMP; Start 06/24/18 at 06:00 Acetaminophen/ Hydrocodone Bitart ([place] (5/325)) 1 tab Q6H PRN PO .PAIN 4-6 Last administered on 06/25/18at 18:17; Admin Dose 1 TAB; Start 06/24/18 at 06:00 Diphenhydramine HCl (Benadryl) 50 mg Q6 PRN PO ITCHING; Start 06/24/18 at 06:00 Hydralazine HCl (Apresoline) 50 mg BID PRN PO ELEVATED BLOOD PRESSURE; Start 06/24/18 at 06:00 Acetaminophen/ Hydrocodone Bitart ([place] (5/325)) 2 tab Q6 PRN PO SEVERE PAIN LEVEL 7-10 Last administered on 07/01/18 07:20; Admin Dose 2 TAB; Start 06/24/18 at 06:00 Levalbuterol (Xopenex Hfa) 2 puff Q4H RESP THERAPY PRN INH WHEEZING AND SOB; Start 06/24/18 at 06:00 Levothyroxine Sodium (Synthroid) 75 mcg BEFORE BREAKFAST PO Last administered on 07/02/18 05:33; Admin Dose 75 MCG; Start 06/24/18 at 07:00 Mirtazapine (Remeron) 7.5 mg HS PO Last administered on 07/01/18 21:00; Admin Dose 7.5 MG; Start 06/24/18 at 21:00 Multivit/Ca Carb/ B Cmplx/FA/Prenat (Chely-Maribel) 1 tab DAILY PO Last administered on 07/02/18 09:03; Admin Dose 1 TAB; Start 06/24/18 at 09:00 Nifedipine (Procardia Xl) 90 mg BID PO Last administered on 06/24/18 14:03; Admin Dose 90 MG; Start 06/24/18 at 09:00; Status Hold Nitroglycerin (Nitroglycerin (Sl Tab) 0.4 Mg) 1 tab Q5M PRN SL CHEST PAIN; Start 06/24/18 at 06:00 Ranitidine HCl (Zantac) 150 mg DAILY PO Last administered on 07/02/18 09:03; Admin Dose 150 MG; Start 06/24/18 at 09:00 Sevelamer Carbonate (Renvela) 1,600 mg WITH MEALS PO Last administered on 07/02/18 12:04; Admin Dose 1,600 MG; Start 06/24/18 at 07:55 Tamsulosin HCl (Flomax) 0.4 mg HS PO Last administered on 06/24/18 21:49; Admin Dose 0.4 MG; Start 06/24/18 at 21:00; Status Hold Miscellaneous Information 1 drp BID RIGHT EYE ; Start 1/31/19 at 09:00 Calcium Carbonate (Caltrate-600) 600 mg DAILY PO Last administered on 07/02/18at 09:03; Admin Dose 600 MG; Start 06/24/18 at 09:00 Albumin Human 100 ml @ 100 mls/hr DURING DIALYSIS PRN IV HYPOTENSION DURING HD; Start 06/24/18 at 09:30 Tramadol HCl (Ultracet) 2 tab Q6H PRN PO MODERATE PAIN LEVEL 4-6; Start 06/25/18 at 17:00 Loperamide HCl (Imodium) 2 mg QID PRN GTB DIARRHEA Last administered on 06/30/18at 12:21; Admin Dose 2 MG; Start 06/30/18 at 10:30 Morphine Sulfate (morphine) 2 mg Q4H PRN IV SEVERE PAIN LEVEL 7-10; Start 07/02/18 at 11:00 Assessment/Plan Hospital Course (Demo Recall) Assessment 1. Left pleural effusion status post thoracentesis complicated by hemothorax with massive blood loss requiring blood transfusion of multiple units of packed red blood cells FFP CT chest confirms complex left hemothorax with minimal free fluid. 2. Coagulopathy 3. End-stage renal failure on hemodialysis 4. Thrombocytopenia Plan 1. We will discuss with thoracic surgery patient likely needs a VATS decortication 2. Continue chest tube in place 3. Physical therapy encourage out of bed 4. Continue hemodialysis as tolerated cc 40mins ok for LAVELLE Rao MD, [facility] Jul 02, 2018 15:29
[2018-07-02] MEDS: morphine 2 MG INJ IV PRN ×2 (16:08→20:30)
--- NOTE | 2018-07-02 18:09 | PN ---
Date/Time of Note Date/Time of Note DATE: 07/02/18 TIME: 18:09 Assessment/Plan Lines/Catheters IV Catheter Type (from Nrsg): Mid Line Assessment/Plan Assessment/Plan Status post chest tube placement Patient with significant loculated pleural effusion on the left side We will keep the chest tube in place Plan for video-assisted thoracic surgery pulmonary decortication next week Subjective 24 Hr Interval Summary Constitutional: improved Pain Control: mild Exam/Review of Systems Vital Signs Vitals Vital Signs Date Temp Pulse Resp B/P (MAP) Pulse Ox O2 O2 Flow FiO2 Time Delivery Rate 07/02/18 74 16:45 07/02/18 98.1 18 110/51 96 15:04 (70) 07/01/18 Nasal 2.0 10:31 Cannula 06/30/18 21 23:09 Intake and Output 07/01/18 07/01/18 07/02/18 1515:00 23:00 07:00 IntakeIntake Total 400 ml 400 ml OutputOutput Total 2400 ml 85 ml 120 ml BalanceBalance -2400 ml 315 ml 280 ml Exam Eyes: nl conjunctiva, EOMI, nl lids, nl sclera ENMT: nl external ears & nose, nl lips & teeth, nl nasal mucosa & septum, mucosa pink and moist Neck: supple, non-tender Respiratory: clear to auscultation, normal air movement Cardiovascular: regular rate and rhythm, nl pulses Gastrointestinal: soft, nl liver, spleen, non-tender Musculoskeletal: nl extremities to inspection, nl gait and stance Results Result Diagram: 07/01/18 0505 07/01/18 0505 FRANCO CASTELAN MD Jul 02, 2018 18:09
[2018-07-02] MEDS: MIRTAZAPINE 15 MG TAB PO SCH (20:30)
[2018-07-03] VITALS (25 sets, daily range): BP systolic 99–168; BP diastolic 40–77; PULSE 60–100; RESP 16–20
[2018-07-03] MEDS: morphine 2 MG INJ IV PRN ×3 (00:41→09:43)
[2018-07-03] MEDS: LEVOTHYROXINE 75 MCG TAB PO SCH (06:15)
--- NOTE | 2018-07-03 08:03 | PN ---
Date/Time of Note Date/Time of Note DATE: 07/03/18 TIME: 08:02 Assessment/Plan VTE Prophylaxis Risk score (from Nsg)>0 risk: 6 SCD applied (from Nsg): Yes Pharmacological prophylaxis: other Lines/Catheters IV Catheter Type (from Nrsg): Mid Line Assessment/Plan Hospital Course renal follow up SUBJECTIVE: The patient is stable, no events overnight. OBJECTIVE: HEENT: Head is normocephalic. NECK: Supple. HEART: Regular rate. LUNGS: Show diminished breath sounds at the base. ABDOMEN: Soft, nontender to palpation without rebound or guarding. EXTREMITIES: Negative for clubbing, cyanosis, no edema. DERMATOLOGIC: No rashes. MUSCULOSKELETAL: No joint effusion. NEUROLOGIC: No change in exam. MEDICATIONS: Reviewed. LABORATORY DATA: Reviewed. ASSESSMENT AND PLAN: 1. End-stage renal disease. continue HD today 2. Hyperkalemia. The patient will be dialyzed on low potassium bath. 3. Hypernatremia, improved. 4. Anemia secondary to hemothorax, chronic kidney disease. The patient is s tatus post blood transfusion. Continue Epogen. 5. Mineral bone disorder. Monitor calcium and phosphorus levels. 6. Left hemothorax status post chest tube. Continue to monitor. 7. Status post shock, etiology is likely secondary to hemodynamics, blood pressure has been stable, continue to monitor. 8. Volume overload. Continue ultrafiltration dialysis. 9. Hypothyroidism. Continue Synthroid. 10. Benign prostatic hypertrophy. 11. Encephalopathy, improving. Result Diagram: 07/01/18 0505 07/01/18 0505 Exam/Review of Systems Exam Vitals Vital Signs Date Temp Pulse Resp B/P (MAP) Pulse Ox O2 O2 Flow FiO2 Time Delivery Rate 07/03/18 98.1 60 19 121/56 93 07:12 (77) 07/01/18 Nasal 2.0 10:31 Cannula 06/30/18 21 23:09 Intake and Output 07/02/18 07/02/18 07/03/18 1515:00 23:00 07:00 IntakeIntake Total 600 ml 300 ml OutputOutput Total 75 ml 90 ml BalanceBalance 525 ml 210 ml Medications Medication Current Medications IV Flush (NS 3 ml) 3 ml PER PROTOCOL IV ; Start 06/24/18 at 06:00 Ondansetron HCl (Zofran Inj) 4 mg Q6H PRN IV NAUSEA/VOMITING Last administered on 06/25/18 16:38; Admin Dose 4 MG; Start 06/24/18 at 06:00 Acetaminophen (Tylenol Tab) 650 mg Q6H PRN PO .PAIN 1-3 OR TEMP; Start 06/24/18 at 06:00 Acetaminophen/ Hydrocodone Bitart ([place] (5/325)) 1 tab Q6H PRN PO .PAIN 4-6 Last administered on 06/25/18 18:17; Admin Dose 1 TAB; Start 06/24/18 at 06:00 Diphenhydramine HCl (Benadryl) 50 mg Q6 PRN PO ITCHING; Start 06/24/18 at 06:00 Hydralazine HCl (Apresoline) 50 mg BID PRN PO ELEVATED BLOOD PRESSURE; Start 06/24/18 at 06:00 Acetaminophen/ Hydrocodone Bitart ([place] (5/325)) 2 tab Q6 PRN PO SEVERE PAIN LEVEL 7-10 Last administered on 07/01/18 07:20; Admin Dose 2 TAB; Start 06/24/18 at 06:00 Levalbuterol (Xopenex Hfa) 2 puff Q4H RESP THERAPY PRN INH WHEEZING AND SOB; Start 06/24/18 at 06:00 Levothyroxine Sodium (Synthroid) 75 mcg BEFORE BREAKFAST PO Last administered on 07/03/18 06:15; Admin Dose 75 MCG; Start 06/24/18 at 07:00 Mirtazapine (Remeron) 7.5 mg HS PO Last administered on 07/02/18 20:30; Admin Dose 7.5 MG; Start 06/24/18 at 21:00 Multivit/Ca Carb/ B Cmplx/FA/Prenat ([place]) 1 tab DAILY PO Last administered on 07/02/18 09:03; Admin Dose 1 TAB; Start 06/24/18 at 09:00 Nifedipine (Procardia Xl) 90 mg BID PO Last administered on 06/24/18 14:03; Admin Dose 90 MG; Start 06/24/18 at 09:00; Status Hold Nitroglycerin (Nitroglycerin (Sl Tab) 0.4 Mg) 1 tab Q5M PRN SL CHEST PAIN; Start 06/24/18 at 06:00 Ranitidine HCl (Zantac) 150 mg DAILY PO Last administered on 07/02/18 09:03; Admin Dose 150 MG; Start 06/24/18 at 09:00 Sevelamer Carbonate (Renvela) 1,600 mg WITH MEALS PO Last administered on 07/02/18 17:09; Admin Dose 1,600 MG; Start 06/24/18 at 07:55 Tamsulosin HCl (Flomax) 0.4 mg HS PO Last administered on 06/24/18 21:49; Admin Dose 0.4 MG; Start 06/24/18 at 21:00; Status Hold Miscellaneous Information 1 drp BID RIGHT EYE ; Start 06/24/18 at 09:00 Calcium Carbonate (Caltrate-600) 600 mg DAILY PO Last administered on 07/02/18 09:03; Admin Dose 600 MG; Start 06/24/18 at 09:00 Albumin Human 100 ml @ 100 mls/hr DURING DIALYSIS PRN IV HYPOTENSION DURING HD; Start 06/24/18 at 09:30 Tramadol HCl (Ultracet) 2 tab Q6H PRN PO MODERATE PAIN LEVEL 4-6; Start 06/25/18 at 17:00 Loperamide HCl (Imodium) 2 mg QID PRN GTB DIARRHEA Last administered on 06/30/18 12:21; Admin Dose 2 MG; Start 06/30/18 at 10:30 Morphine Sulfate (morphine) 2 mg Q4H PRN IV SEVERE PAIN LEVEL 7-10 Last administered on 07/03/18 05:26; Admin Dose 2 MG; Start 07/02/18 at 11:00 ALEJANDRO PEREZ DO Jul 03, 2018 08:03
[2018-07-03] MEDS: CALCIUM CARBONATE (600 MG CA) TAB PO SCH (08:57)
[2018-07-03] MEDS: MULTIVIT/CA CARB/B CMPLX/FA TAB PO SCH (08:57)
[2018-07-03] MEDS: SEVELAMER CARBONATE 800 MG TABLET PO SCH ×3 (08:57→17:55)
[2018-07-03] MEDS: RANITIDINE 150 MG TAB PO SCH (08:57)
[2018-07-03] MEDS: NON-FORMULARY/PATIENT OWN MED (Atropine Sulfate/0.9 %Sod Chlr (Atropine 0.01%-Ns Eye Drops RIGHT EYE SCH ×2 (08:57→21:00)
[2018-07-03] MEDS ORDERED: ARTIFICIAL TEARS 15 ML OPH BOTH EYES PRN (13:00)
--- NOTE | 2018-07-03 13:02 | CONS ---
Consult Date/Type/Reason Admit Date/Time Jun 24, 2018 at 03:48 Initial Consult Date 06/25/18 Type of Consultation: Pulm Date/Time of Note DATE: 07/03/18 TIME: 13:00 Subjective s/p chest tube placement. Output noted. Objective Vitals Vital Signs Date Temp Pulse Resp B/P (MAP) Pulse Ox O2 O2 Flow FiO2 Time Delivery Rate 07/03/18 66 12:13 07/03/18 98.1 18 123/77 96 11:14 (92) 07/03/18 Nasal 2.0 08:20 Cannula 06/30/18 21 23:09 Intake and Output 07/02/18 07/02/18 07/03/18 1515:00 23:00 07:00 IntakeIntake Total 600 ml 300 ml OutputOutput Total 75 ml 90 ml BalanceBalance 525 ml 210 ml Exam HEENT: Neck supple; no JVD; no LAD CVS: RRR, S1 and S2 CHEST: Decreased left-sided breath sounds ABD: Soft, NT, + BS EXT: No c/c/e Results/Medications Result Diagram: 07/01/18 0505 07/01/18 0505 Home Meds Reported Medications Multivit/Ca Carb/B Cmplx/Fa* ([place]-Maribel*) 1 Tab Tab, 1 TAB PO DAILY, TAB 06/08/18 Mirtazapine* (Mirtazapine*) 7.5 Mg Tablet, 7.5 MG PO HS, TAB 06/08/18 Ranitidine Hcl* (Ranitidine Hcl*) 150 Mg Tablet, 150 MG PO Q12, #60 TAB 06/08/18 Calcium Carbonate* (Calcium Carbonate*) 600 MG Ca Tab, 600 MG PO DAILY, TAB 06/08/18 Diphenhydramine Hcl* (Benadryl*) 50 Mg Cap, 50 MG PO Q6 PRN for ITCHING, CAP 04/15/18 Nitroglycerin* (Nitrostat*) 0.4 Mg Tab.subl, 0.4 MG SL Q5MIN PRN for CHEST PAIN, BOTTLE 04/15/18 Ondansetron Hcl* (Zofran*) 4 Mg Tablet, 4 MG PO Q6H PRN for NAUSEA AND OR VO MITING, TAB 04/15/18 Docusate Sodium* (Colace*) 100 Mg Capsule, 200 MG PO QHS, #60 CAP 04/15/18 Nifedipine* (Nifedipine ER*) 90 Mg Tablet.sa, 90 MG PO BID, TAB.SA 04/15/18 Pantoprazole* (Protonix*) 40 Mg Tablet.dr, 40 MG PO DAILY, TAB 04/15/18 Sevelamer Hcl* (Renagel*) 800 Mg Tablet, 1600 MG PO WITH MEALS, TAB 04/15/18 Hydralazine Hcl* (Hydralazine Hcl*) 50 Mg Tab, 50 MG PO BID PRN for ELEVATED BLOOD PRESSURE, #60 TAB HOLD FOR SBP<110 OR HR <60 04/15/18 Levothyroxine Sodium* (Levoxyl*) 75 Mcg Tablet, 75 MCG PO BEFORE BREAKFAST, #30 TAB 04/15/18 Tamsulosin Hcl* (Tamsulosin Hcl*) 0.4 Mg Cap.er.24h, 0.4 MG PO HS, CAP 04/15/18 Hydrocodone/Acetaminophen ([place] 5-325 Tablet) 1 Each Tablet, 2 EACH PO Q6 PRN for SEVERE PAIN LEVEL 7-10, TAB 04/15/18 Atropine Sulfate/0.9 %Sod Chlr (Atropine 0.01%-Ns Eye Drops) 10 Ml Drops, 1 DRP RIGHT EYE BID, BOTTLE 04/15/18 Levalbuterol* (Xopenex* HFA) 15 Gm Inha, 2 PUFFS INH Q4H PRN for WHEEZING AND SOB, INHALER 04/15/18 Medications Current Medications IV Flush (NS 3 ml) 3 ml PER PROTOCOL IV ; Start 06/24/18 at 06:00 Ondansetron HCl (Zofran Inj) 4 mg Q6H PRN IV NAUSEA/VOMITING Last administered on 06/25/18at 16:38; Admin Dose 4 MG; Start 06/24/18 at 06:00 Acetaminophen (Tylenol Tab) 650 mg Q6H PRN PO .PAIN 1-3 OR TEMP; Start 06/24/18 at 06:00 Acetaminophen/ Hydrocodone Bitart ([place] (5/325)) 1 tab Q6H PRN PO .PAIN 4-6 Last administered on 06/25/18at 18:17; Admin Dose 1 TAB; Start 06/24/18 at 06:00 Diphenhydramine HCl (Benadryl) 50 mg Q6 PRN PO ITCHING; Start 06/24/18 at 06:00 Hydralazine HCl (Apresoline) 50 mg BID PRN PO ELEVATED BLOOD PRESSURE; Start 06/24/18 at 06:00 Acetaminophen/ Hydrocodone Bitart ([place] (5/325)) 2 tab Q6 PRN PO SEVERE PAIN LEVEL 7-10 Last administered on 07/01/18 07:20; Admin Dose 2 TAB; Start 06/24/18 at 06:00 Levalbuterol (Xopenex Hfa) 2 puff Q4H RESP THERAPY PRN INH WHEEZING AND SOB; Start 06/24/18 at 06:00 Levothyroxine Sodium (Synthroid) 75 mcg BEFORE BREAKFAST PO Last administered on 07/03/18 06:15; Admin Dose 75 MCG; Start 06/24/18 at 07:00 Mirtazapine (Remeron) 7.5 mg HS PO Last administered on 07/02/18 20:30; Admin Dose 7.5 MG; Start 06/24/18 at 21:00 Multivit/Ca Carb/ B Cmplx/FA/Prenat ([place]-Maribel) 1 tab DAILY PO Last administered on 07/03/18 08:57; Admin Dose 1 TAB; Start 06/24/18 at 09:00 Nifedipine (Procardia Xl) 90 mg BID PO Last administered on 06/24/18 14:03; Admin Dose 90 MG; Start 06/24/18 at 09:00; Status Hold Nitroglycerin (Nitroglycerin (Sl Tab) 0.4 Mg) 1 tab Q5M PRN SL CHEST PAIN; Start 06/24/18 at 06:00 Ranitidine HCl (Zantac) 150 mg DAILY PO Last administered on 07/03/18 08:57; Admin Dose 150 MG; Start 06/24/18 at 09:00 Sevelamer Carbonate (Renvela) 1,600 mg WITH MEALS PO Last administered on 07/03/18 12:14; Admin Dose 1,600 MG; Start 06/24/18 at 07:55 Tamsulosin HCl (Flomax) 0.4 mg HS PO Last administered on 06/24/18 21:49; Admin Dose 0.4 MG; Start 06/24/18 at 21:00; Status Hold Miscellaneous Information 1 drp BID RIGHT EYE ; Start 06/24/18 at 09:00 Calcium Carbonate (Caltrate-600) 600 mg DAILY PO Last administered on 07/03/18at 08:57; Admin Dose 600 MG; Start 06/24/18 at 09:00 Albumin Human 100 ml @ 100 mls/hr DURING DIALYSIS PRN IV HYPOTENSION DURING HD; Start 06/24/18 at 09:30 Tramadol HCl (Ultracet) 2 tab Q6H PRN PO MODERATE PAIN LEVEL 4-6; Start 06/25/18 at 17:00 Loperamide HCl (Imodium) 2 mg QID PRN GTB DIARRHEA Last administered on 06/30/18at 12:21; Admin Dose 2 MG; Start 06/30/18 at 10:30 Eye Lubricant (Artificial Tears Oph) 2 drop Q6H PRN BOTH EYES DRY EYES; Start 07/03/18 at 13:00 Assessment/Plan Assessment/Plan (Daily) IMP: 1. Left Hemothorax--s/p chest tube placement 2. Coagulopathy 3. End-stage renal failure on hemodialysis 4. Thrombocytopenia RECS: 1. Follow CT output on 20 cm H20 suction 2. Will likely need VATS debridement/decortication YARIEL LITTLE MD Jul 03, 2018 13:02
[2018-07-03] MEDS: HYDROCODONE/APAP (5/325) TAB PO PRN ×2 (13:08→20:42)
[2018-07-03] MEDS ORDERED: morphine 4 MG/ML VIAL IV STA (13:50)
--- NOTE | 2018-07-03 14:07 | PN ---
Date/Time of Note Date/Time of Note DATE: 07/03/18 TIME: 14:06 Assessment/Plan Lines/Catheters IV Catheter Type (from Nrsg): Mid Line Assessment/Plan Assessment/Plan Status post chest tube placement She has loculated pleural effusion on the left side Chest tube with minimal drainage Chest tube removed Plan for video-assisted thoracic surgery next week Subjective 24 Hr Interval Summary Constitutional: no complaints, improved, ambulates, BM, flatus, urine output Pain Control: mild Exam/Review of Systems Vital Signs Vitals Vital Signs Date Temp Pulse Resp B/P (MAP) Pulse Ox O2 O2 Flow FiO2 Time Delivery Rate 07/03/18 66 12:13 07/03/18 98.1 18 123/77 96 11:14 (92) 07/03/18 Nasal 2.0 08:20 Cannula 06/30/18 21 23:09 Intake and Output 07/02/18 07/02/18 07/03/18 1515:00 23:00 07:00 IntakeIntake Total 600 ml 300 ml OutputOutput Total 75 ml 90 ml BalanceBalance 525 ml 210 ml Exam Eyes: nl conjunctiva, EOMI, nl lids, nl sclera ENMT: nl external ears & nose, nl lips & teeth, nl nasal mucosa & septum, mucosa pink and moist Neck: supple, non-tender Respiratory: clear to auscultation, normal air movement Cardiovascular: regular rate and rhythm, nl pulses Gastrointestinal: soft, nl liver, spleen, non-tender Musculoskeletal: nl extremities to inspection, nl gait and stance Results Result Diagram: 07/01/18 0505 07/01/18 0505 FRANCO CASTELAN MD Jul 03, 2018 14:07
--- NOTE | 2018-07-03 14:34 | PN ---
Date/Time of Note Date/Time of Note DATE: 07/03/18 TIME: 14:33 Assessment/Plan VTE Prophylaxis Risk score (from Nsg)>0 risk: 6 SCD applied (from Nsg): Yes Pharmacological prophylaxis: heparin Lines/Catheters IV Catheter Type (from Nrsg): Mid Line Assessment/Plan Hospital Course 58 yo male with ESRD on HD who presented with SOB from pleural effusions. Thoracentesis was performed which resulted in massive hemothorax requiring chest tube Hemothorax: -s/p l sided thoracentesis with drainage of 1L -post thoracentesis complication of hemothorax, s.p bedside L chest tube drainage -Removal of chest tube per Dr Paiz - Apparently to undergo VATS next week Acute blood loss anemia -acute on chronic 2/2 blood loss -Continue transfusions as needed ESRD on HD - HD per nephrology Diarrhea: - Resolved Anemia of CKD: - Transfuse PRN Hypothyroidism: Continue Synthroid moderate pericardial effusion -f/u echo Prophylaxis: SCDs Dispo: to SNF when stable Result Diagram: 07/01/18 0505 07/01/18 0505 Subjective 24 Hr Interval Summary Free Text/Dictation No change to clinical status Minimal chest tube output Exam/Review of Systems Exam Vitals Vital Signs Date Temp Pulse Resp B/P (MAP) Pulse Ox O2 O2 Flow FiO2 Time Delivery Rate 07/03/18 66 12:13 07/03/18 98.1 18 123/77 96 11:14 (92) 07/03/18 Nasal 2.0 08:20 Cannula 06/30/18 21 23:09 Intake and Output 07/02/18 07/02/18 07/03/18 1515:00 23:00 07:00 IntakeIntake Total 600 ml 300 ml OutputOutput Total 75 ml 90 ml BalanceBalance 525 ml 210 ml Constitutional: alert, oriented, well developed Psych: no complaints, nl mood/affect Head: normocephalic, atraumatic Eyes: nl conjunctiva, EOMI, nl lids, nl sclera, PERRL ENMT: nl external ears & nose, nl lips & teeth, nl nasal mucosa & septum Neck: supple, non-tender Respiratory: clear to auscultation, normal air movement Cardiovascular: regular rate and rhythm, nl pulses Gastrointestinal: soft, nl liver, spleen, non-tender Musculoskeletal: nl extremities to inspection, nl gait and stance Extremities: normal pulses Neurological: PIECE HAND II-XII intact, nl mental status, nl speech, nl strength Skin: nl turgor; No rash or lesions Lymph: nl lymph nodes Medications Medication Current Medications IV Flush (NS 3 ml) 3 ml PER PROTOCOL IV ; Start 06/24/18 at 06:00 Ondansetron HCl (Zofran Inj) 4 mg Q6H PRN IV NAUSEA/VOMITING Last administered on 06/25/18 16:38; Admin Dose 4 MG; Start 06/24/18 at 06:00 Acetaminophen (Tylenol Tab) 650 mg Q6H PRN PO .PAIN 1-3 OR TEMP; Start 06/24/18 at 06:00 Acetaminophen/ Hydrocodone Bitart ([place] (5/325)) 1 tab Q6H PRN PO .PAIN 4-6 Last administered on 06/25/18 18:17; Admin Dose 1 TAB; Start 06/24/18 at 06:00 Diphenhydramine HCl (Benadryl) 50 mg Q6 PRN PO ITCHING; Start 06/24/18 at 06:00 Hydralazine HCl (Apresoline) 50 mg BID PRN PO ELEVATED BLOOD PRESSURE; Start 06/24/18 at 06:00 Acetaminophen/ Hydrocodone Bitart ([place] (5/325)) 2 tab Q6 PRN PO SEVERE PAIN LEVEL 7-10 Last administered on 07/03/18 13:08; Admin Dose 2 TAB; Start 06/24/18 at 06:00 Levalbuterol (Xopenex Hfa) 2 puff Q4H RESP THERAPY PRN INH WHEEZING AND SOB; Start 06/24/18 at 06:00 Levothyroxine Sodium (Synthroid) 75 mcg BEFORE BREAKFAST PO Last administered on 07/03/18 06:15; Admin Dose 75 MCG; Start 06/24/18 at 07:00 Mirtazapine (Remeron) 7.5 mg HS PO Last administered on 07/02/18 20:30; Admin Dose 7.5 MG; Start 06/24/18 at 21:00 Multivit/Ca Carb/ B Cmplx/FA/Prenat ([place]-Maribel) 1 tab DAILY PO Last administered on 07/03/18 08:57; Admin Dose 1 TAB; Start 06/24/18 at 09:00 Nifedipine (Procardia Xl) 90 mg BID PO Last administered on 06/24/18 14:03; Admin Dose 90 MG; Start 06/24/18 at 09:00; Status Hold Nitroglycerin (Nitroglycerin (Sl Tab) 0.4 Mg) 1 tab Q5M PRN SL CHEST PAIN; Start 06/24/18 at 06:00 Ranitidine HCl (Zantac) 150 mg DAILY PO Last administered on 07/03/18 08:57; Admin Dose 150 MG; Start 06/24/18 at 09:00 Sevelamer Carbonate (Renvela) 1,600 mg WITH MEALS PO Last administered on 07/03/18 12:14; Admin Dose 1,600 MG; Start 06/24/18 at 07:55 Tamsulosin HCl (Flomax) 0.4 mg HS PO Last administered on 06/24/18 21:49; Admin Dose 0.4 MG; Start 06/24/18 at 21:00; Status Hold Miscellaneous Information 1 drp BID RIGHT EYE ; Start 06/24/18 at 09:00 Calcium Carbonate (Caltrate-600) 600 mg DAILY PO Last administered on 07/03/18 08:57; Admin Dose 600 MG; Start 06/24/18 at 09:00 Albumin Human 100 ml @ 100 mls/hr DURING DIALYSIS PRN IV HYPOTENSION DURING HD; Start 06/24/18 at 09:30 Tramadol HCl (Ultracet) 2 tab Q6H PRN PO MODERATE PAIN LEVEL 4-6; Start 06/25/18 at 17:00 Loperamide HCl (Imodium) 2 mg QID PRN GTB DIARRHEA Last administered on 06/30/18 12:21; Admin Dose 2 MG; Start 06/30/18 at 10:30 Eye Lubricant (Artificial Tears Oph) 2 drop Q6H PRN BOTH EYES DRY EYES; Start 07/03/18 at 13:00 JOHN FARRAR MD Jul 03, 2018 14:34
[2018-07-03] MEDS: ONDANSETRON 4 MG INJ IV PRN (17:48)
[2018-07-03] MEDS: MIRTAZAPINE 15 MG TAB PO SCH (20:43)
[2018-07-04] VITALS (10 sets, daily range): BP systolic 84–110; BP diastolic 40–46; PULSE 61–73; RESP 17–18
[2018-07-04] MEDS: LEVOTHYROXINE 75 MCG TAB PO SCH (06:06)
--- NOTE | 2018-07-04 07:33 | PN ---
Date/Time of Note Date/Time of Note DATE: 07/04/18 TIME: 07:32 Assessment/Plan VTE Prophylaxis Risk score (from Nsg)>0 risk: 3 SCD applied (from Nsg): Yes Pharmacological prophylaxis: other Lines/Catheters IV Catheter Type (from Nrsg): Mid Line Assessment/Plan Hospital Course renal follow up SUBJECTIVE: The patient is stable, no events overnight. OBJECTIVE: HEENT: Head is normocephalic. NECK: Supple. HEART: Regular rate. LUNGS: Show diminished breath sounds at the base. ABDOMEN: Soft, nontender to palpation without rebound or guarding. EXTREMITIES: Negative for clubbing, cyanosis, no edema. DERMATOLOGIC: No rashes. MUSCULOSKELETAL: No joint effusion. NEUROLOGIC: No change in exam. MEDICATIONS: Reviewed. LABORATORY DATA: Reviewed. ASSESSMENT AND PLAN: 1. End-stage renal disease. continue HD in 1-2 days 2. Hyperkalemia. The patient will be dialyzed on low potassium bath. 3. Hypernatremia, improved. 4. Anemia secondary to hemothorax, chronic kidney disease. The patient is status post blood transfusion. Continue Epogen. 5. Mineral bone disorder. Monitor calcium and phosphorus levels. 6. Left hemothorax status post chest tube. Continue to monitor. 7. Status post shock, etiology is likely secondary to hemodynamics, blood pressure has been stable, continue to monitor. 8. Volume overload. Continue ultrafiltration dialysis. 9. Hypothyroidism. Continue Synthroid. 10. Benign prostatic hypertrophy. 11. Encephalopathy, improving. Result Diagram: 07/01/18 0505 07/01/18 0505 Exam/Review of Systems Exam Vitals Vital Signs Date Temp Pulse Resp B/P (MAP) Pulse Ox O2 O2 Flow FiO2 Time Delivery Rate 07/04/18 2.0 05:02 07/04/18 63 109/44 04:40 (65) 07/04/18 98.2 17 97 04:00 07/03/18 Nasal 22:17 Cannula 06/30/18 21 23:09 Intake and Output 07/03/18 07/03/18 07/04/18 1515:00 23:00 07:00 IntakeIntake Total 500 ml 450 ml OutputOutput Total 1600 ml BalanceBalance -1100 ml 450 ml Medications Medication Current Medications IV Flush (NS 3 ml) 3 ml PER PROTOCOL IV ; Start 06/24/18 at 06:00 Ondansetron HCl (Zofran Inj) 4 mg Q6H PRN IV NAUSEA/VOMITING Last administered on 07/03/18 17:48; Admin Dose 4 MG; Start 06/24/18 at 06:00 Acetaminophen (Tylenol Tab) 650 mg Q6H PRN PO .PAIN 1-3 OR TEMP; Start 06/24/18 at 06:00 Acetaminophen/ Hydrocodone Bitart ([place] (5/325)) 1 tab Q6H PRN PO .PAIN 4-6 Last administered on 06/25/18 18:17; Admin Dose 1 TAB; Start 06/24/18 at 06:00 Diphenhydramine HCl (Benadryl) 50 mg Q6 PRN PO ITCHING; Start 06/24/18 at 06:00 Hydralazine HCl (Apresoline) 50 mg BID PRN PO ELEVATED BLOOD PRESSURE; Start 06/24/18 at 06:00 Acetaminophen/ Hydrocodone Bitart ([place] (5/325)) 2 tab Q6 PRN PO SEVERE PAIN LEVEL 7-10 Last administered on 07/03/18 20:42; Admin Dose 2 TAB; Start 06/24/18 at 06:00 Levalbuterol (Xopenex Hfa) 2 puff Q4H RESP THERAPY PRN INH WHEEZING AND SOB; Start 06/24/18 at 06:00 Levothyroxine Sodium (Synthroid) 75 mcg BEFORE BREAKFAST PO Last administered on 07/03/18 06:15; Admin Dose 75 MCG; Start 06/24/18 at 07:00 Mirtazapine (Remeron) 7.5 mg HS PO Last administered on 07/03/18 20:43; Admin Dose 7.5 MG; Start 06/24/18 at 21:00 Multivit/Ca Carb/ B Cmplx/FA/Prenat ([place]-Maribel) 1 tab DAILY PO Last administered on 07/03/18 08:57; Admin Dose 1 TAB; Start 06/24/18 at 09:00 Nifedipine (Procardia Xl) 90 mg BID PO Last administered on 06/24/18 14:03; Admin Dose 90 MG; Start 06/24/18 at 09:00; Status Hold Nitroglycerin (Nitroglycerin (Sl Tab) 0.4 Mg) 1 tab Q5M PRN SL CHEST PAIN; Start 06/24/18 at 06:00 Ranitidine HCl (Zantac) 150 mg DAILY PO Last administered on 07/03/18 08:57; Admin Dose 150 MG; Start 06/24/18 at 09:00 Sevelamer Carbonate (Renvela) 1,600 mg WITH MEALS PO Last administered on 07/03/18at 12:14; Admin Dose 1,600 MG; Start 06/24/18 at 07:55 Tamsulosin HCl (Flomax) 0.4 mg HS PO Last administered on 06/24/18at 21:49; Admin Dose 0.4 MG; Start 06/24/18 at 21:00; Status Hold Miscellaneous Information 1 drp BID RIGHT EYE ; Start 06/24/18 at 09:00 Calcium Carbonate (Caltrate-600) 600 mg DAILY PO Last administered on 07/03/18at 08:57; Admin Dose 600 MG; Start 06/24/18 at 09:00 Albumin Human 100 ml @ 100 mls/hr DURING DIALYSIS PRN IV HYPOTENSION DURING HD; Start 06/24/18 at 09:30 Tramadol HCl (Ultracet) 2 tab Q6H PRN PO MODERATE PAIN LEVEL 4-6; Start 06/25/18 at 17:00 Loperamide HCl (Imodium) 2 mg QID PRN GTB DIARRHEA Last administered on 06/30/18at 12:21; Admin Dose 2 MG; Start 06/30/18 at 10:30 Eye Lubricant (Artificial Tears Oph) 2 drop Q6H PRN BOTH EYES DRY EYES; Start 07/03/18 at 13:00 Influenza Virus Vaccine Quadrival (Fluzone) 0.5 ml ONCE ONCE IM* ; Start 07/04/18 at 10:00; Stop 07/04/18 at 10:01 ALEJANDRO PEREZ DO Jul 04, 2018 07:33
[2018-07-04] MEDS: NON-FORMULARY/PATIENT OWN MED (Atropine Sulfate/0.9 %Sod Chlr (Atropine 0.01%-Ns Eye Drops RIGHT EYE SCH ×2 (09:00→21:00)
[2018-07-04] MEDS: MULTIVIT/CA CARB/B CMPLX/FA TAB PO SCH (09:14)
[2018-07-04] MEDS: RANITIDINE 150 MG TAB PO SCH (09:14)
[2018-07-04] MEDS: SEVELAMER CARBONATE 800 MG TABLET PO SCH ×3 (09:14→17:46)
[2018-07-04] MEDS: CALCIUM CARBONATE (600 MG CA) TAB PO SCH (09:14)
[2018-07-04] MEDS: ONDANSETRON 4 MG INJ IV PRN ×3 (09:19→22:59)
[2018-07-04] MEDS: LOPERAMIDE HCL 1 MG/5 ML LIQUID (10 ML UD CUP) GTB PRN ×2 (12:16→19:36)
--- NOTE | 2018-07-04 12:22 | PN ---
Date/Time of Note Date/Time of Note DATE: 07/04/18 TIME: 12:21 Assessment/Plan Lines/Catheters IV Catheter Type (from Nrsg): Mid Line Assessment/Plan Assessment/Plan Status post chest tube placement She has loculated pleural effusion on the left side Chest tube with minimal drainage Chest tube removed Plan for video-assisted thoracic surgery next week Subjective 24 Hr Interval Summary Constitutional: improved Pain Control: mild Exam/Review of Systems Vital Signs Vitals Vital Signs Date Temp Pulse Resp B/P (MAP) Pulse Ox O2 O2 Flow FiO2 Time Delivery Rate 07/04/18 100.1 73 18 106/46 99 11:53 (66) 07/04/18 2.0 10:03 07/04/18 Nasal 08:20 Cannula 06/30/18 21 23:09 Intake and Output 07/03/18 07/03/18 07/04/18 1515:00 23:00 07:00 IntakeIntake Total 500 ml 450 ml OutputOutput Total 1600 ml BalanceBalance -1100 ml 450 ml Exam Eyes: nl conjunctiva, EOMI, nl lids, nl sclera ENMT: nl external ears & nose, nl lips & teeth, nl nasal mucosa & septum, mucosa pink and moist Neck: supple, non-tender Respiratory: clear to auscultation, normal air movement Cardiovascular: regular rate and rhythm, nl pulses Gastrointestinal: soft, nl liver, spleen, non-tender Musculoskeletal: nl extremities to inspection, nl gait and stance Results Result Diagram: 07/01/18 0505 07/01/18 0505 FRANCO CASTELAN MD Jul 04, 2018 12:22
--- NOTE | 2018-07-04 13:22 | PN ---
Date/Time of Note Date/Time of Note DATE: 07/04/18 TIME: 13:21 Assessment/Plan VTE Prophylaxis Risk score (from Ns)>0 risk: 7 SCD applied (from Nsg): Yes Pharmacological prophylaxis: heparin Lines/Catheters IV Catheter Type (from Nrsg): Mid Line Assessment/Plan Hospital Course 58 yo male with ESRD on HD who presented with SOB from pleural effusions. Thoracentesis was performed which resulted in massive hemothorax requiring chest tube Hemothorax: -s/p l sided thoracentesis with drainage of 1L -post thoracentesis complication of hemothorax, s.p bedside L chest tube drainage -Removal of chest tube per Dr Paiz - Apparently to undergo VATS next week Acute blood loss anemia -acute on chronic 2/2 blood loss -Continue transfusions as needed ESRD on HD - HD per nephrology Diarrhea: - Unclear etiology. C Diff is negative. Immodium Anemia of CKD: - Transfuse PRN Hypothyroidism: Continue Synthroid moderate pericardial effusion -f/u echo Prophylaxis: SCDs Dispo: to SNF when stable Result Diagram: 07/01/18 0505 07/01/18 0505 Subjective 24 Hr Interval Summary Free Text/Dictation Chest tube was removed Breathing comfortably However having copious diarrhea Exam/Review of Systems Exam Vitals Vital Signs Date Temp Pulse Resp B/P (MAP) Pulse Ox O2 O2 Flow FiO2 Time Delivery Rate 07/04/18 72 12:30 07/04/18 100.1 18 106/46 99 11:53 (66) 07/04/18 2.0 10:03 07/04/18 Nasal 08:20 Cannula 06/30/18 21 23:09 Intake and Output 07/03/18 07/03/18 07/04/18 1515:00 23:00 07:00 IntakeIntake Total 500 ml 450 ml OutputOutput Total 1600 ml BalanceBalance -1100 ml 450 ml Constitutional: alert, oriented, well developed Psych: no complaints, nl mood/affect Head: normocephalic, atraumatic Eyes: nl conjunctiva, EOMI, nl lids, nl sclera, PERRL ENMT: nl external ears & nose, nl lips & teeth, nl nasal mucosa & septum Neck: supple, non-tender Respiratory: clear to auscultation, normal air movement Cardiovascular: regular rate and rhythm, nl pulses Gastrointestinal: soft, nl liver, spleen, non-tender Musculoskeletal: nl extremities to inspection, nl gait and stance Extremities: normal pulses Neurological: MANAGER MEDIA II-XII intact, nl mental status, nl speech, nl strength Skin: nl turgor; No rash or lesions Lymph: nl lymph nodes Medications Medication Current Medications IV Flush (NS 3 ml) 3 ml PER PROTOCOL IV ; Start 06/24/18 at 06:00 Ondansetron HCl (Zofran Inj) 4 mg Q6H PRN IV NAUSEA/VOMITING Last administered on 07/04/18 09:19; Admin Dose 4 MG; Start 06/24/18 at 06:00 Acetaminophen (Tylenol Tab) 650 mg Q6H PRN PO .PAIN 1-3 OR TEMP; Start 06/24/18 at 06:00 Acetaminophen/ Hydrocodone Bitart ([place] (5/325)) 1 tab Q6H PRN PO .PAIN 4-6 Last administered on 06/25/18 18:17; Admin Dose 1 TAB; Start 06/24/18 at 06:00 Diphenhydramine HCl (Benadryl) 50 mg Q6 PRN PO ITCHING; Start 06/24/18 at 06:00 Hydralazine HCl (Apresoline) 50 mg BID PRN PO ELEVATED BLOOD PRESSURE; Start 06/24/18 at 06:00 Acetaminophen/ Hydrocodone Bitart ([place] (5/325)) 2 tab Q6 PRN PO SEVERE PAIN LEVEL 7-10 Last administered on 07/03/18 20:42; Admin Dose 2 TAB; Start 06/24/18 at 06:00 Levalbuterol (Xopenex Hfa) 2 puff Q4H RESP THERAPY PRN INH WHEEZING AND SOB; Start 06/24/18 at 06:00 Levothyroxine Sodium (Synthroid) 75 mcg BEFORE BREAKFAST PO Last administered on 07/03/18 06:15; Admin Dose 75 MCG; Start 06/24/18 at 07:00 Mirtazapine (Remeron) 7.5 mg HS PO Last administered on 07/03/18 20:43; Admin Dose 7.5 MG; Start 06/24/18 at 21:00 Multivit/Ca Carb/ B Cmplx/FA/Prenat ([place]) 1 tab DAILY PO Last administered on 07/04/18 09:14; Admin Dose 1 TAB; Start 06/24/18 at 09:00 Nifedipine (Procardia Xl) 90 mg BID PO Last administered on 06/24/18 14:03; Admin Dose 90 MG; Start 06/24/18 at 09:00; Status Hold Nitroglycerin (Nitroglycerin (Sl Tab) 0.4 Mg) 1 tab Q5M PRN SL CHEST PAIN; Start 06/24/18 at 06:00 Ranitidine HCl (Zantac) 150 mg DAILY PO Last administered on 07/04/18 09:14; Admin Dose 150 MG; Start 06/24/18 at 09:00 Sevelamer Carbonate (Renvela) 1,600 mg WITH MEALS PO Last administered on 07/04/18 12:16; Admin Dose 1,600 MG; Start 06/24/18 at 07:55 Tamsulosin HCl (Flomax) 0.4 mg HS PO Last administered on 06/24/18 21:49; Admin Dose 0.4 MG; Start 06/24/18 at 21:00; Status Hold Miscellaneous Information 1 drp BID RIGHT EYE ; Start 06/24/18 at 09:00 Calcium Carbonate (Caltrate-600) 600 mg DAILY PO Last administered on 07/04/18 09:14; Admin Dose 600 MG; Start 06/24/18 at 09:00 Albumin Human 100 ml @ 100 mls/hr DURING DIALYSIS PRN IV HYPOTENSION DURING HD; Start 06/24/18 at 09:30 Tramadol HCl (Ultracet) 2 tab Q6H PRN PO MODERATE PAIN LEVEL 4-6; Start 06/25/18 at 17:00 Loperamide HCl (Imodium) 2 mg QID PRN GTB DIARRHEA Last administered on 07/04/18 12:16; Admin Dose 2 MG; Start 06/30/18 at 10:30 Eye Lubricant (Artificial Tears Oph) 2 drop Q6H PRN BOTH EYES DRY EYES; Start 07/03/18 at 13:00 JOHN FARRAR MD Jul 04, 2018 13:22
--- NOTE | 2018-07-04 13:25 | CONS ---
Consult Date/Type/Reason Admit Date/Time Jun 24, 2018 at 03:48 Initial Consult Date 06/25/18 Type of Consultation: Pulm Date/Time of Note DATE: 07/04/18 TIME: 13:23 Subjective No events. s/p CT removal Objective Vitals Vital Signs Date Temp Pulse Resp B/P (MAP) Pulse Ox O2 O2 Flow FiO2 Time Delivery Rate 07/04/18 72 12:30 07/04/18 100.1 18 106/46 99 11:53 (66) 07/04/18 2.0 10:03 07/04/18 Nasal 08:20 Cannula 06/30/18 21 23:09 Intake and Output 07/03/18 07/03/18 07/04/18 1515:00 23:00 07:00 IntakeIntake Total 500 ml 450 ml OutputOutput Total 1600 ml BalanceBalance -1100 ml 450 ml Exam HEENT: Neck supple; no JVD; no LAD CVS: RRR, S1 and S2 CHEST: Decreased left-sided breath sounds ABD: Soft, NT, + BS EXT: No c/c/e Results/Medications Result Diagram: 07/01/18 0505 07/01/18 0505 Home Meds Reported Medications Multivit/Ca Carb/B Cmplx/Fa* ([place]-Maribel*) 1 Tab Tab, 1 TAB PO DAILY, TAB 06/08/18 Mirtazapine* (Mirtazapine*) 7.5 Mg Tablet, 7.5 MG PO HS, TAB 06/08/18 Ranitidine Hcl* (Ranitidine Hcl*) 150 Mg Tablet, 150 MG PO Q12, #60 TAB 06/08/18 Calcium Carbonate* (Calcium Carbonate*) 600 MG Ca Tab, 600 MG PO DAILY, TAB 06/08/18 Diphenhydramine Hcl* (Benadryl*) 50 Mg Cap, 50 MG PO Q6 PRN for ITCHING, CAP 04/15/18 Nitroglycerin* (Nitrostat*) 0.4 Mg Tab.subl, 0.4 MG SL Q5MIN PRN for CHEST PAIN, BOTTLE 04/15/18 Ondansetron Hcl* (Zofran*) 4 Mg Tablet, 4 MG PO Q6H PRN for NAUSEA AND OR VOMITING, TAB 04/15/18 Docusate Sodium* (Colace*) 100 Mg Capsule, 200 MG PO QHS, #60 CAP 04/15/18 Nifedipine* (Nifedipine ER*) 90 Mg Tablet.sa, 90 MG PO BID, TAB.SA 04/15/18 Pantoprazole* (Protonix*) 40 Mg Tablet.dr, 40 MG PO DAILY, TAB 04/15/18 Sevelamer Hcl* (Renagel*) 800 Mg Tablet, 1600 MG PO WITH MEALS, TAB 04/15/18 Hydralazine Hcl* (Hydralazine Hcl*) 50 Mg Tab, 50 MG PO BID PRN for ELEVATED BLOOD PRESSURE, #60 TAB HOLD FOR SBP<110 OR HR <60 04/15/18 Levothyroxine Sodium* (Levoxyl*) 75 Mcg Tablet, 75 MCG PO BEFORE BREAKFAST, #30 TAB 04/15/18 Tamsulosin Hcl* (Tamsulosin Hcl*) 0.4 Mg Cap.er.24h, 0.4 MG PO HS, CAP 04/15/18 Hydrocodone/Acetaminophen ([place] 5-325 Tablet) 1 Each Tablet, 2 EACH PO Q6 PRN for SEVERE PAIN LEVEL 7-10, TAB 04/15/18 Atropine Sulfate/0.9 %Sod Chlr (Atropine 0.01%-Ns Eye Drops) 10 Ml Drops, 1 DRP RIGHT EYE BID, BOTTLE 04/15/18 Levalbuterol* (Xopenex* HFA) 15 Gm Inha, 2 PUFFS INH Q4H PRN for WHEEZING AND SOB, INHALER 04/15/18 Medications Current Medications IV Flush (NS 3 ml) 3 ml PER PROTOCOL IV ; Start 06/24/18 at 06:00 Ondansetron HCl (Zofran Inj) 4 mg Q6H PRN IV NAUSEA/VOMITING Last administered on 07/04/18at 09:19; Admin Dose 4 MG; Start 06/24/18 at 06:00 Acetaminophen (Tylenol Tab) 650 mg Q6H PRN PO .PAIN 1-3 OR TEMP; Start 06/24/18 at 06:00 Acetaminophen/ Hydrocodone Bitart ([place] (5/325)) 1 tab Q6H PRN PO .PAIN 4-6 Last administered on 06/25/18at 18:17; Admin Dose 1 TAB; Start 06/24/18 at 06:00 Diphenhydramine HCl (Benadryl) 50 mg Q6 PRN PO ITCHING; Start 06/24/18 at 06:00 Hydralazine HCl (Apresoline) 50 mg BID PRN PO ELEVATED BLOOD PRESSURE; Start 06/24/18 at 06:00 Acetaminophen/ Hydrocodone Bitart ([place] (5/325)) 2 tab Q6 PRN PO SEVERE PAIN LEVEL 7-10 Last administered on 07/03/18 20:42; Admin Dose 2 TAB; Start 06/24/18 at 06:00 Levalbuterol (Xopenex Hfa) 2 puff Q4H RESP THERAPY PRN INH WHEEZING AND SOB; Start 06/24/18 at 06:00 Levothyroxine Sodium (Synthroid) 75 mcg BEFORE BREAKFAST PO Last administered on 07/03/18 06:15; Admin Dose 75 MCG; Start 06/24/18 at 07:00 Mirtazapine (Remeron) 7.5 mg HS PO Last administered on 07/03/18 20:43; Admin Dose 7.5 MG; Start 06/24/18 at 21:00 Multivit/Ca Carb/ B Cmplx/FA/Prenat ([place]-Maribel) 1 tab DAILY PO Last administered on 07/04/18 09:14; Admin Dose 1 TAB; Start 06/24/18 at 09:00 Nifedipine (Procardia Xl) 90 mg BID PO Last administered on 06/24/18 14:03; Admin Dose 90 MG; Start 06/24/18 at 09:00; Status Hold Nitroglycerin (Nitroglycerin (Sl Tab) 0.4 Mg) 1 tab Q5M PRN SL CHEST PAIN; Start 06/24/18 at 06:00 Ranitidine HCl (Zantac) 150 mg DAILY PO Last administered on 07/04/18 09:14; Admin Dose 150 MG; Start 06/24/18 at 09:00 Sevelamer Carbonate (Renvela) 1,600 mg WITH MEALS PO Last administered on 07/04/18 12:16; Admin Dose 1,600 MG; Start 06/24/18 at 07:55 Tamsulosin HCl (Flomax) 0.4 mg HS PO Last administered on 06/24/18 21:49; Admin Dose 0.4 MG; Start 06/24/18 at 21:00; Status Hold Miscellaneous Information 1 drp BID RIGHT EYE ; Start 06/24/18 at 09:00 Calcium Carbonate (Caltrate-600) 600 mg DAILY PO Last administered on 07/04/18at 09:14; Admin Dose 600 MG; Start 06/24/18 at 09:00 Albumin Human 100 ml @ 100 mls/hr DURING DIALYSIS PRN IV HYPOTENSION DURING HD; Start 06/24/18 at 09:30 Tramadol HCl (Ultracet) 2 tab Q6H PRN PO MODERATE PAIN LEVEL 4-6; Start 06/25/18 at 17:00 Loperamide HCl (Imodium) 2 mg QID PRN GTB DIARRHEA Last administered on 07/04/18at 12:16; Admin Dose 2 MG; Start 06/30/18 at 10:30 Eye Lubricant (Artificial Tears Oph) 2 drop Q6H PRN BOTH EYES DRY EYES; Start 07/03/18 at 13:00 Assessment/Plan Assessment/Plan (Daily) IMP: 1. Left Hemothorax--s/p chest tube placement--now removed 2. Coagulopathy 3. End-stage renal failure on hemodialysis 4. Thrombocytopenia RECS: 1. CXR today 2. Will likely need VATS debridement/decortication YARIEL LITTLE MD Jul 04, 2018 13:25
[2018-07-04] MEDS: MIRTAZAPINE 15 MG TAB PO SCH (21:00)
[2018-07-05] VITALS (11 sets, daily range): BP systolic 86–107; BP diastolic 37–46; PULSE 52–73; RESP 16–20
[2018-07-05] MEDS: LOPERAMIDE HCL 1 MG/5 ML LIQUID (10 ML UD CUP) GTB PRN ×2 (03:08→11:22)
[2018-07-05] MEDS: LEVOTHYROXINE 75 MCG TAB PO SCH (06:02)
[2018-07-05] MEDS: MULTIVIT/CA CARB/B CMPLX/FA TAB PO SCH (08:13)
[2018-07-05] MEDS: RANITIDINE 150 MG TAB PO SCH (08:13)
[2018-07-05] MEDS: SEVELAMER CARBONATE 800 MG TABLET PO SCH ×3 (08:13→18:11)
[2018-07-05] MEDS: CALCIUM CARBONATE (600 MG CA) TAB PO SCH (08:13)
[2018-07-05] MEDS: NON-FORMULARY/PATIENT OWN MED (Atropine Sulfate/0.9 %Sod Chlr (Atropine 0.01%-Ns Eye Drops RIGHT EYE SCH ×2 (09:00→21:00)
--- NOTE | 2018-07-05 09:46 | PN ---
DATE: 07/05/2018 SUBJECTIVE: The patient is stable, had hemodialysis yesterday, tolerated well. No other events note d. No hemoptysis or hematemesis. OBJECTIVE: VITAL SIGNS: Blood pressure is 95/46, respirations 18, pulse 65, temperature 98.6. HEENT: Head is normocephalic. NECK: Supple. HEART: Regular rate. LUNGS: Show diminished breath sounds at the base. ABDOMEN: Soft, nontender to palpation without rebound or guarding. EXTREMITIES: Negative for clubbing, cyanosis. Trace edema. DERMATOLOGIC: No rashes. MUSCULOSKELETAL: No joint effusion. NEUROLOGIC: No change in exam. MEDICATIONS: Reviewed. LABORATORY DATA: Reviewed. ASSESSMENT AND PLAN: 1. End-stage renal disease. The patient had hemodialysis yesterday, tolerated well. Plan is for di alysis again tomorrow. 2. Hyperkalemia. Continue dialysis on low potassium bath. Recheck a BMP. 3. Anemia. Continue to monitor hemoglobin and hematocrit levels. Continue Epogen. 4. Mineral bone disorder, monitor calcium and phosphorus levels. 5. Hemothorax status post chest tube placement. The patient has been seen by CT surgery with pendin g possible VATS or loculated effusion. The patient's chest tube was removed. 6. Status post shock. Continue to monitor. 7. Volume overload. Continue ultrafiltration dialysis. 8. Hypothyroidism. Continue Synthroid. 9. Benign prostatic hypertrophy. 10. Encephalopathy, improving. Dictated By: NAE MENDOZA DO NR/NTS Conf#: [id number] DID#: [id number] CC: GIOVANNI ODELL MD; JOHN FARRAR MD; WILFRID MOREL MD;*EndCC*
[2018-07-05] MEDS: DIPHENHYDRAMINE 50 MG CAP PO PRN ×2 (09:56→18:13)
--- NOTE | 2018-07-05 15:30 | PN ---
Date/Time of Note Date/Time of Note DATE: 07/05/18 TIME: 15:29 Assessment/Plan VTE Prophylaxis Risk score (from Ns)>0 risk: 4 SCD applied (from Ns): Yes Pharmacological prophylaxis: NA/contraindicated Pharm contraindication: bleeding Lines/Catheters IV Catheter Type (from Nrsg): Mid Line Assessment/Plan Hospital Course 58 yo male with ESRD on HD who presented with SOB from pleural effusions. Thoracentesis was performed which resulted in massive hemothorax requiring chest tube Hemothorax: -s/p l sided thoracentesis with drainage of 1L -post thoracentesis complication of hemothorax, s.p bedside L chest tube drainage -Removal of chest tube per Dr Paiz - Apparently to undergo VATS this week Acute blood loss anemia -acute on chronic 2/2 blood loss -Continue transfusions as needed ESRD on HD - HD per nephrology Diarrhea: - Unclear etiology. C Diff is negative. Immodium Anemia of CKD: - Transfuse PRN Hypothyroidism: Continue Synthroid moderate pericardial effusion -f/u echo Prophylaxis: SCDs Result Diagram: 07/01/18 0505 07/01/18 0505 Subjective 24 Hr Interval Summary Cardiovascular: chest pain Exam/Review of Systems Exam Vitals Vital Signs Date Temp Pulse Resp B/P (MAP) Pulse Ox O2 O2 Flow FiO2 Time Delivery Rate 07/05/18 98.3 73 20 107/39 97 15:01 (61) 07/05/18 Nasal 2.0 08:00 Cannula Intake and Output 07/04/18 07/04/18 07/05/18 1515:00 23:00 07:00 IntakeIntake Total 480 ml 250 ml BalanceBalance 480 ml 250 ml Constitutional: alert, oriented Respiratory: clear to auscultation Cardiovascular: regular rate and rhythm Gastrointestinal: soft; No distended Musculoskeletal: nl extremities to inspection Medications Medication Current Medications IV Flush (NS 3 ml) 3 ml PER PROTOCOL IV ; Start 06/24/18 at 06:00 Ondansetron HCl (Zofran Inj) 4 mg Q6H PRN IV NAUSEA/VOMITING Last administered on 07/04/18at 22:59; Admin Dose 4 MG; Start 06/24/18 at 06:00 Acetaminophen (Tylenol Tab) 650 mg Q6H PRN PO .PAIN 1-3 OR TEMP; Start 06/24/18 at 06:00 Acetaminophen/ Hydrocodone Bitart ([place] (5/325)) 1 tab Q6H PRN PO .PAIN 4-6 Last administered on 06/25/18 18:17; Admin Dose 1 TAB; Start 06/24/18 at 06:00 Diphenhydramine HCl (Benadryl) 50 mg Q6 PRN PO ITCHING Last administered on 07/05/18 09:56; Admin Dose 50 MG; Start 06/24/18 at 06:00 Hydralazine HCl (Apresoline) 50 mg BID PRN PO ELEVATED BLOOD PRESSURE; Start 06/24/18 at 06:00 Acetaminophen/ Hydrocodone Bitart ([place] (5/325)) 2 tab Q6 PRN PO SEVERE PAIN LEVEL 7-10 Last administered on 07/03/18 20:42; Admin Dose 2 TAB; Start 06/24/18 at 06:00 Levalbuterol (Xopenex Hfa) 2 puff Q4H RESP THERAPY PRN INH WHEEZING AND SOB; Start 06/24/18 at 06:00 Levothyroxine Sodium (Synthroid) 75 mcg BEFORE BREAKFAST PO Last administered on 07/03/18 06:15; Admin Dose 75 MCG; Start 06/24/18 at 07:00 Mirtazapine (Remeron) 7.5 mg HS PO Last administered on 07/03/18 20:43; Admin Dose 7.5 MG; Start 06/24/18 at 21:00 Multivit/Ca Carb/ B Cmplx/FA/Prenat ([place]-Maribel) 1 tab DAILY PO Last administered on 07/05/18 08:13; Admin Dose 1 TAB; Start 06/24/18 at 09:00 Nifedipine (Procardia Xl) 90 mg BID PO Last administered on 06/24/18 14:03; Admin Dose 90 MG; Start 06/24/18 at 09:00; Status Hold Nitroglycerin (Nitroglycerin (Sl Tab) 0.4 Mg) 1 tab Q5M PRN SL CHEST PAIN; Start 06/24/18 at 06:00 Ranitidine HCl (Zantac) 150 mg DAILY PO Last administered on 07/05/18 08:13; Admin Dose 150 MG; Start 06/24/18 at 09:00 Sevelamer Carbonate (Renvela) 1,600 mg WITH MEALS PO Last administered on 07/05/18at 12:30; Admin Dose 1,600 MG; Start 06/24/18 at 07:55 Tamsulosin HCl (Flomax) 0.4 mg HS PO Last administered on 06/24/18at 21:49; Admin Dose 0.4 MG; Start 06/24/18 at 21:00; Status Hold Miscellaneous Information 1 drp BID RIGHT EYE ; Start 06/24/18 at 09:00 Calcium Carbonate (Caltrate-600) 600 mg DAILY PO Last administered on 07/05/18at 08:13; Admin Dose 600 MG; Start 06/24/18 at 09:00 Albumin Human 100 ml @ 100 mls/hr DURING DIALYSIS PRN IV HYPOTENSION DURING HD; Start 06/24/18 at 09:30 Tramadol HCl (Ultracet) 2 tab Q6H PRN PO MODERATE PAIN LEVEL 4-6; Start 06/25/18 at 17:00 Loperamide HCl (Imodium) 2 mg QID PRN GTB DIARRHEA Last administered on 07/05/18at 11:22; Admin Dose 2 MG; Start 06/30/18 at 10:30 Eye Lubricant (Artificial Tears Oph) 2 drop Q6H PRN BOTH EYES DRY EYES; Start 07/03/18 at 13:00 JUDSON TREVINO Jul 05, 2018 15:30
[2018-07-05] MEDS: HYDROCODONE/APAP (5/325) TAB PO PRN (16:40)
[2018-07-05] MEDS: morphine 2 MG INJ IV PRN (18:11)
[2018-07-05] MEDS: MIRTAZAPINE 15 MG TAB PO SCH (20:06)
[2018-07-06] VITALS (33 sets, daily range): BP systolic 93–265; BP diastolic 29–128; PULSE 56–104; RESP 17–28
[2018-07-06] MEDS: LEVOTHYROXINE 75 MCG TAB PO SCH (06:00)
[2018-07-06] MEDS: SEVELAMER CARBONATE 800 MG TABLET PO SCH ×3 (07:55→22:50)
[2018-07-06] MEDS: MULTIVIT/CA CARB/B CMPLX/FA TAB PO SCH (09:00)
[2018-07-06] MEDS: NON-FORMULARY/PATIENT OWN MED (Atropine Sulfate/0.9 %Sod Chlr (Atropine 0.01%-Ns Eye Drops RIGHT EYE SCH ×2 (09:00→22:51)
[2018-07-06] MEDS: RANITIDINE 150 MG TAB PO SCH (09:00)
[2018-07-06] MEDS: morphine 2 MG INJ IV PRN ×3 (10:13→22:44)
[2018-07-06] MEDS: CALCIUM CARBONATE (600 MG CA) TAB PO SCH (10:15)
[2018-07-06] MEDS ORDERED: DEXTROSE 50% 50 ML SYRINGE ONE ×2 (11:12→11:16)
[2018-07-06] MEDS ORDERED: DEXTROSE 50% 50 ML SYRINGE IV ONE ×2 (11:30→17:00)
--- NOTE | 2018-07-06 12:36 | CONS ---
Consult Date/Type/Reason Admit Date/Time Jun 24, 2018 at 03:48 Initial Consult Date 06/25/18 Type of Consult Pulmonary Date/Time of Note DATE: 07/06/18 TIME: 12:36 Subjective Patient comfortable this morning. No new events Objective Vital Signs Date Temp Pulse Resp B/P (MAP) Pulse Ox O2 O2 Flow FiO2 Time Delivery Rate 07/06/18 65 11:53 07/06/18 98.0 20 138/48 97 11:11 (78) 07/06/18 2.0 10:23 07/06/18 Nasal 09:19 Cannula Intake and Output 07/05/18 07/05/18 07/06/18 1515:00 23:00 07:00 IntakeIntake Total 520 ml 240 ml BalanceBalance 520 ml 240 ml Exam GENERAL: Well-nourished well-developed gentleman comfortable at rest VITAL SIGNS: per chart NECK: Supple. No JVD or lymphadenopathy. CARDIAC EXAM: S1, S2. No added sounds or murmurs. CHEST: Diminished air entry left base ABDOMEN: Soft, nontender. No guarding or rebound. EXTREMITIES: No cyanosis, clubbing or edema. NEUROLOGIC: Generalized weakness. No focal deficits. Vent Setting Fraction of Inspired Oxygen pe: 21 Results/Medications Result Diagram: 07/06/18 0639 07/06/18 0639 Results 24 hrs Laboratory Tests Test 07/06/18 06:39 07/06/18 11:11 07/06/18 11:58 White Blood Count 8.0 Red Blood Count 3.65 #L Hemoglobin 11.1 L Hematocrit 35.2 #L Mean Corpuscular Volume 96.4 Mean Corpuscular Hemoglobin 30.4 Mean Corpuscular Hemoglobin Concent 31.5 L Red Cell Distribution Width 15.2 H Platelet Count 141 # Mean Platelet Volume 10.1 Immature Granulocytes % 0.500 H Neutrophils % 81.9 H Lymphocytes % 9.2 L Monocytes % 8.1 Eosinophils % 0.2 Basophils % 0.1 Nucleated Red Blood Cells % 0.0 Immature Granulocytes # 0.040 H Neutrophils # 6.6 Lymphocytes # 0.7 L Monocytes # 0.7 Eosinophils # 0.0 Basophils # 0.0 Nucleated Red Blood Cells # 0.0 Sodium Level 132 L Potassium Level 6.5 *H Chloride Level 102 Carbon Dioxide Level 28 Anion Gap 2 L Blood Urea Nitrogen 36 H Creatinine 4.16 H Est Glomerular Filtrat Rate mL/min 15 L Glucose Level 62 L Calcium Level 7.4 L Phosphorus Level 4.4 Magnesium Level 2.1 Bedside Glucose 60 L 91 Medications Current Medications IV Flush (NS 3 ml) 3 ml PER PROTOCOL IV ; Start 06/24/18 at 06:00 Ondansetron HCl (Zofran Inj) 4 mg Q6H PRN IV NAUSEA/VOMITING Last administered on 07/04/18 22:59; Admin Dose 4 MG; Start 06/24/18 at 06:00 Acetaminophen (Tylenol Tab) 650 mg Q6H PRN PO .PAIN 1-3 OR TEMP; Start 06/24/18 at 06:00 Acetaminophen/ Hydrocodone Bitart ([place] (5/325)) 1 tab Q6H PRN PO .PAIN 4-6 Last administered on 06/25/18 18:17; Admin Dose 1 TAB; Start 06/24/18 at 06:00 Diphenhydramine HCl (Benadryl) 50 mg Q6 PRN PO ITCHING Last administered on 07/05/18 18:13; Admin Dose 50 MG; Start 06/24/18 at 06:00 Acetaminophen/ Hydrocodone Bitart ([place] (5/325)) 2 tab Q6 PRN PO SEVERE PAIN LEVEL 7-10 Last administered on 07/05/18 16:40; Admin Dose 2 TAB; Start 06/24/18 at 06:00 Levalbuterol (Xopenex Hfa) 2 puff Q4H RESP THERAPY PRN INH WHEEZING AND SOB; Start 06/24/18 at 06:00 Levothyroxine Sodium (Synthroid) 75 mcg BEFORE BREAKFAST PO Last administered on 07/06/18 06:00; Admin Dose 75 MCG; Start 06/24/18 at 07:00 Mirtazapine (Remeron) 7.5 mg HS PO Last administered on 07/05/18 20:06; Admin Dose 7.5 MG; Start 06/24/18 at 21:00 Multivit/Ca Carb/ B Cmplx/FA/Prenat ([place]-Maribel) 1 tab DAILY PO Last administered on 07/05/18 08:13; Admin Dose 1 TAB; Start 06/24/18 at 09:00 Nifedipine (Procardia Xl) 90 mg BID PO Last administered on 1/31/19at 14:03; Admin Dose 90 MG; Start 06/24/18 at 09:00; Status Hold Nitroglycerin (Nitroglycerin (Sl Tab) 0.4 Mg) 1 tab Q5M PRN SL CHEST PAIN; Start 06/24/18 at 06:00 Ranitidine HCl (Zantac) 150 mg DAILY PO Last administered on 07/05/18 08:13; Admin Dose 150 MG; Start 06/24/18 at 09:00 Sevelamer Carbonate (Renvela) 1,600 mg WITH MEALS PO Last administered on 07/05/18 18:11; Admin Dose 1,600 MG; Start 06/24/18 at 07:55 Tamsulosin HCl (Flomax) 0.4 mg HS PO Last administered on 06/24/18 21:49; Admin Dose 0.4 MG; Start 06/24/18 at 21:00; Status Hold Miscellaneous Information 1 drp BID RIGHT EYE ; Start 06/24/18 at 09:00 Calcium Carbonate (Caltrate-600) 600 mg DAILY PO Last administered on 07/05/18at 08:13; Admin Dose 600 MG; Start 06/24/18 at 09:00 Albumin Human 100 ml @ 100 mls/hr DURING DIALYSIS PRN IV HYPOTENSION DURING HD; Start 06/24/18 at 09:30 Tramadol HCl (Ultracet) 2 tab Q6H PRN PO MODERATE PAIN LEVEL 4-6; Start 06/25/18 at 17:00 Loperamide HCl (Imodium) 2 mg QID PRN GTB DIARRHEA Last administered on 07/05/18 11:22; Admin Dose 2 MG; Start 06/30/18 at 10:30 Eye Lubricant (Artificial Tears Oph) 2 drop Q6H PRN BOTH EYES DRY EYES; Start 07/03/18 at 13:00 Morphine Sulfate (morphine) 2 mg Q4H PRN IV SEVERE PAIN LEVEL 7-10 Last administered on 07/06/18at 10:13; Admin Dose 2 MG; Start 07/05/18 at 18:05 Hydralazine HCl (Apresoline) 10 mg Q6H PRN IV Elevated bp; Start 07/06/18 at 10:30 Assessment/Plan Hospital Course (Demo Recall) Assessment 1. Left pleural effusion status post thoracentesis complicated by hemothorax with massive blood loss requiring blood transfusion of multiple units of packed red blood cells FFP CT chest confirms complex left hemothorax with minimal free fluid. 2. Coagulopathy 3. End-stage renal failure on hemodialysis 4. Thrombocytopenia Plan 1. Scheduled for VATS today. Anticipate return to ICU with chest tube. Continue hemodialysis. Monitor H&H closely. LAVELLE GREGORIO MD, [facility] Jul 06, 2018 12:36
--- NOTE | 2018-07-06 15:10 | PN ---
Date/Time of Note Date/Time of Note DATE: 07/06/18 TIME: 15:09 Assessment/Plan VTE Prophylaxis Risk score (from Ns)>0 risk: 6 SCD applied (from Ns): Yes Pharmacological prophylaxis: NA/contraindicated Pharm contraindication: bleeding Lines/Catheters IV Catheter Type (from [facility]): Mid Line Assessment/Plan Hospital Course 58 yo male with ESRD on HD who presented with SOB from pleural effusions. Thoracentesis was performed which resulted in massive hemothorax requiring chest tube Hemothorax: -s/p l sided thoracentesis with drainage of 1L -post thoracentesis complication of hemothorax, s.p bedside L chest tube drainage -Removal of chest tube per Dr Paiz -VATS planned for today Acute blood loss anemia -acute on chronic 2/2 blood loss -Continue transfusions as needed ESRD on HD - HD per nephrology Diarrhea: - Unclear etiology. C Diff is negative. Immodium Anemia of CKD: - Transfuse PRN Hypothyroidism: Continue Synthroid Prophylaxis: SCDs Result Diagram: 07/06/18 0639 07/06/18 0639 Results 24hrs Laboratory Tests Test 07/06/18 06:39 07/06/18 11:11 07/06/18 11:58 White Blood Count 8.0 Red Blood Count 3.65 #L Hemoglobin 11.1 L Hematocrit 35.2 #L Mean Corpuscular Volume 96.4 Mean Corpuscular Hemoglobin 30.4 Mean Corpuscular Hemoglobin Concent 31.5 L Red Cell Distribution Width 15.2 H Platelet Count 141 # Mean Platelet Volume 10.1 Immature Granulocytes % 0.500 H Neutrophils % 81.9 H Lymphocytes % 9.2 L Monocytes % 8.1 Eosinophils % 0.2 Basophils % 0.1 Nucleated Red Blood Cells % 0.0 Immature Granulocytes # 0.040 H Neutrophils # 6.6 Lymphocytes # 0.7 L Monocytes # 0.7 Eosinophils # 0.0 Basophils # 0.0 Nucleated Red Blood Cells # 0.0 Sodium Level 132 L Potassium Level 6.5 *H Chloride Level 102 Carbon Dioxide Level 28 Anion Gap 2 L Blood Urea Nitrogen 36 H Creatinine 4.16 H Est Glomerular Filtrat Rate mL/min 15 L Glucose Level 62 L Calcium Level 7.4 L Phosphorus Level 4.4 Magnesium Level 2.1 Bedside Glucose 60 L 91 Subjective 24 Hr Interval Summary Cardiovascular: chest pain Exam/Review of Systems Exam Vitals Vital Signs Date Temp Pulse Resp B/P (MAP) Pulse Ox O2 O2 Flow FiO2 Time Delivery Rate 07/06/18 62 12:00 07/06/18 98.0 20 138/48 97 11:11 (78) 07/06/18 2.0 10:23 07/06/18 Nasal 09:19 Cannula Intake and Output 07/05/18 07/05/18 07/06/18 1515:00 23:00 07:00 IntakeIntake Total 520 ml 240 ml BalanceBalance 520 ml 240 ml Constitutional: alert Respiratory: clear to auscultation Cardiovascular: regular rate and rhythm Gastrointestinal: soft; No distended Musculoskeletal: nl extremities to inspection Results Results 24hrs Laboratory Tests Test 07/06/18 06:39 07/06/18 11:11 07/06/18 11:58 White Blood Count 8.0 Red Blood Count 3.65 #L Hemoglobin 11.1 L Hematocrit 35.2 #L Mean Corpuscular Volume 96.4 Mean Corpuscular Hemoglobin 30.4 Mean Corpuscular Hemoglobin Concent 31.5 L Red Cell Distribution Width 15.2 H Platelet Count 141 # Mean Platelet Volume 10.1 Immature Granulocytes % 0.500 H Neutrophils % 81.9 H Lymphocytes % 9.2 L Monocytes % 8.1 Eosinophils % 0.2 Basophils % 0.1 Nucleated Red Blood Cells % 0.0 Immature Granulocytes # 0.040 H Neutrophils # 6.6 Lymphocytes # 0.7 L Monocytes # 0.7 Eosinophils # 0.0 Basophils # 0.0 Nucleated Red Blood Cells # 0.0 Sodium Level 132 L Potassium Level 6.5 *H Chloride Level 102 Carbon Dioxide Level 28 Anion Gap 2 L Blood Urea Nitrogen 36 H Creatinine 4.16 H Est Glomerular Filtrat Rate mL/min 15 L Glucose Level 62 L Calcium Level 7.4 L Phosphorus Level 4.4 Magnesium Level 2.1 Bedside Glucose 60 L 91 Medications Medication Current Medications IV Flush (NS 3 ml) 3 ml PER PROTOCOL IV ; Start 06/24/18 at 06:00 Ondansetron HCl (Zofran Inj) 4 mg Q6H PRN IV NAUSEA/VOMITING Last administered on 07/04/18at 22:59; Admin Dose 4 MG; Start 06/24/18 at 06:00 Acetaminophen (Tylenol Tab) 650 mg Q6H PRN PO .PAIN 1-3 OR TEMP; Start 06/24/18 at 06:00 Acetaminophen/ Hydrocodone Bitart ([place] (5/325)) 1 tab Q6H PRN PO .PAIN 4-6 Last administered on 06/25/18 18:17; Admin Dose 1 TAB; Start 06/24/18 at 06:00 Diphenhydramine HCl (Benadryl) 50 mg Q6 PRN PO ITCHING Last administered on 07/05/18 18:13; Admin Dose 50 MG; Start 06/24/18 at 06:00 Acetaminophen/ Hydrocodone Bitart ([place] (5/325)) 2 tab Q6 PRN PO SEVERE PAIN LEVEL 7-10 Last administered on 07/05/18 16:40; Admin Dose 2 TAB; Start 06/24/18 at 06:00 Levalbuterol (Xopenex Hfa) 2 puff Q4H RESP THERAPY PRN INH WHEEZING AND SOB; Start 06/24/18 at 06:00 Levothyroxine Sodium (Synthroid) 75 mcg BEFORE BREAKFAST PO Last administered on 07/06/18 06:00; Admin Dose 75 MCG; Start 06/24/18 at 07:00 Mirtazapine (Remeron) 7.5 mg HS PO Last administered on 07/05/18 20:06; Admin Dose 7.5 MG; Start 06/24/18 at 21:00 Multivit/Ca Carb/ B Cmplx/FA/Prenat ([place]) 1 tab DAILY PO Last administered on 07/05/18 08:13; Admin Dose 1 TAB; Start 06/24/18 at 09:00 Nifedipine (Procardia Xl) 90 mg BID PO Last administered on 06/24/18 14:03; Admin Dose 90 MG; Start 06/24/18 at 09:00; Status Hold Nitroglycerin (Nitroglycerin (Sl Tab) 0.4 Mg) 1 tab Q5M PRN SL CHEST PAIN; S tart 06/24/18 at 06:00 Ranitidine HCl (Zantac) 150 mg DAILY PO Last administered on 07/05/18 08:13; Admin Dose 150 MG; Start 06/24/18 at 09:00 Sevelamer Carbonate (Renvela) 1,600 mg WITH MEALS PO Last administered on 2/11/19at 18:11; Admin Dose 1,600 MG; Start 06/24/18 at 07:55 Tamsulosin HCl (Flomax) 0.4 mg HS PO Last administered on 06/24/18at 21:49; Admin Dose 0.4 MG; Start 06/24/18 at 21:00; Status Hold Miscellaneous Information 1 drp BID RIGHT EYE ; Start 06/24/18 at 09:00 Calcium Carbonate (Caltrate-600) 600 mg DAILY PO Last administered on 07/05/18at 08:13; Admin Dose 600 MG; Start 06/24/18 at 09:00 Albumin Human 100 ml @ 100 mls/hr DURING DIALYSIS PRN IV HYPOTENSION DURING HD; Start 06/24/18 at 09:30 Tramadol HCl (Ultracet) 2 tab Q6H PRN PO MODERATE PAIN LEVEL 4-6; Start 06/25/18 at 17:00 Loperamide HCl (Imodium) 2 mg QID PRN GTB DIARRHEA Last administered on 07/05/18at 11:22; Admin Dose 2 MG; Start 06/30/18 at 10:30 Eye Lubricant (Artificial Tears Oph) 2 drop Q6H PRN BOTH EYES DRY EYES; Start 07/03/18 at 13:00 Morphine Sulfate (morphine) 2 mg Q4H PRN IV SEVERE PAIN LEVEL 7-10 Last administered on 07/06/18at 10:13; Admin Dose 2 MG; Start 07/05/18 at 18:05 Hydralazine HCl (Apresoline) 10 mg Q6H PRN IV Elevated bp; Start 07/06/18 at 10:30 JUDSON TREVINO Jul 06, 2018 15:10
[2018-07-06] MEDS: DEXTROSE 10% 1,000 ML IV SCH ×2 (17:16→23:06)
[2018-07-06] MEDS ORDERED: MIDAZOLAM 1 MG/ML 2 ML INJ ONE (17:24)
[2018-07-06] MEDS ORDERED: PHENYLephrine (100 MCG/ML) 5ML SYG ONE ×2 (17:26→17:27)
--- NOTE | 2018-07-06 18:05 | PREAC ---
Date/Time of Note Date/Time of Note DATE: 07/06/18 TIME: 18:01 Anesthesia Eval and Record Evaluation Time Pre-Procedure Interview DATE: 07/06/18 TIME: 18:01 Age 58 Sex male NPO: 8 hrs Preoperative diagnosis respiratory insufficiency Planned procedure Decortication Past Medical History Past Medical History: Includes Cardio: HTN, Dyslipidemia Endo: Diabetes, Hypothyroid Pulm: COPD Surgery & Anesthesia Issues No known issue Meds Anticoagulation: No Beta Delon within 24 hr: No Reason Beta Delon not given: Pt. not on B-Delon Reported Medications Multivit/Ca Carb/B Cmplx/Fa* (Chely-Maribel*) 1 Tab Tab, 1 TAB PO DAILY, TAB 06/08/18 Mirtazapine* (Mirtazapine*) 7.5 Mg Tablet, 7.5 MG PO HS, TAB 06/08/18 Ranitidine Hcl* (Ranitidine Hcl*) 150 Mg Tablet, 150 MG PO Q12, #60 TAB 06/08/18 Calcium Carbonate* (Calcium Carbonate*) 600 MG Ca Tab, 600 MG PO DAILY, TAB 06/08/18 Diphenhydramine Hcl* (Benadryl*) 50 Mg Cap, 50 MG PO Q6 PRN for ITCHING, CAP 04/15/18 Nitroglycerin* (Nitrostat*) 0.4 Mg Tab.subl, 0.4 MG SL Q5MIN PRN for CHEST PAIN, BOTTLE 04/15/18 Ondansetron Hcl* (Zofran*) 4 Mg Tablet, 4 MG PO Q6H PRN for NAUSEA AND OR VOMITING, TAB 04/15/18 Docusate Sodium* (Colace*) 100 Mg Capsule, 200 MG PO QHS, #60 CAP 04/15/18 Nifedipine* (Nifedipine ER*) 90 Mg Tablet.sa, 90 MG PO BID, TAB.SA 04/15/18 Pantoprazole* (Protonix*) 40 Mg Tablet.dr, 40 MG PO DAILY, TAB 04/15/18 Sevelamer Hcl* (Renagel*) 800 Mg Tablet, 1600 MG PO WITH MEALS, TAB 04/15/18 Hydralazine Hcl* (Hydralazine Hcl*) 50 Mg Tab, 50 MG PO BID PRN for ELEVATED BLOOD PRESSURE, #60 TAB HOLD FOR SBP<110 OR HR <60 04/15/18 Levothyroxine Sodium* (Levoxyl*) 75 Mcg Tablet, 75 MCG PO BEFORE BREAKFAST, #30 TAB 04/15/18 Tamsulosin Hcl* (Tamsulosin Hcl*) 0.4 Mg Cap.er.24h, 0.4 MG PO HS, CAP 04/15/18 Hydrocodone/Acetaminophen ([place] 5-325 Tablet) 1 Each Tablet, 2 EACH PO Q6 PRN for SEVERE PAIN LEVEL 7-10, TAB 04/15/18 Atropine Sulfate/0.9 %Sod Chlr (Atropine 0.01%-Ns Eye Drops) 10 Ml Drops, 1 DRP RIGHT EYE BID, BOTTLE 04/15/18 Levalbuterol* (Xopenex* HFA) 15 Gm Inha, 2 PUFFS INH Q4H PRN for WHEEZING AND SOB, INHALER 04/15/18 Current Medications IV Flush (NS 3 ml) 3 ml PER PROTOCOL IV ; Start 06/24/18 at 06:00 Ondansetron HCl (Zofran Inj) 4 mg Q6H PRN IV NAUSEA/VOMITING Last administered on 07/04/18 22:59; Admin Dose 4 MG; Start 06/24/18 at 06:00 Acetaminophen (Tylenol Tab) 650 mg Q6H PRN PO .PAIN 1-3 OR TEMP; Start 06/24/18 at 06:00 Acetaminophen/ Hydrocodone Bitart ([place] (5/325)) 1 tab Q6H PRN PO .PAIN 4-6 Last administered on 06/25/18 18:17; Admin Dose 1 TAB; Start 06/24/18 at 06:00 Diphenhydramine HCl (Benadryl) 50 mg Q6 PRN PO ITCHING Last administered on 07/05/18 18:13; Admin Dose 50 MG; Start 06/24/18 at 06:00 Acetaminophen/ Hydrocodone Bitart ([place] (5/325)) 2 tab Q6 PRN PO SEVERE PAIN LEVEL 7-10 Last administered on 07/05/18 16:40; Admin Dose 2 TAB; Start 06/24/18 at 06:00 Levalbuterol (Xopenex Hfa) 2 puff Q4H RESP THERAPY PRN INH WHEEZING AND SOB; Start 06/24/18 at 06:00 Levothyroxine Sodium (Synthroid) 75 mcg BEFORE BREAKFAST PO Last administered on 07/06/18 06:00; Admin Dose 75 MCG; Start 06/24/18 at 07:00 Mirtazapine (Remeron) 7.5 mg HS PO Last administered on 07/05/18 20:06; Admin Dose 7.5 MG; Start 06/24/18 at 21:00 Multivit/Ca Carb/ B Cmplx/FA/Prenat ([place]-Maribel) 1 tab DAILY PO Last administered on 07/05/18 08:13; Admin Dose 1 TAB; Start 06/24/18 at 09:00 Nifedipine (Procardia Xl) 90 mg BID PO Last administered on 06/24/18 14:03; Admin Dose 90 MG; Start 06/24/18 at 09:00; Status Hold Nitroglycerin (Nitroglycerin (Sl Tab) 0.4 Mg) 1 tab Q5M PRN SL CHEST PAIN; Start 06/24/18 at 06:00 Ranitidine HCl (Zantac) 150 mg DAILY PO Last administered on 07/05/18 08:13; Admin Dose 150 MG; Start 06/24/18 at 09:00 Sevelamer Carbonate (Renvela) 1,600 mg WITH MEALS PO Last administered on 07/05/18 18:11; Admin Dose 1,600 MG; Start 06/24/18 at 07:55 Tamsulosin HCl (Flomax) 0.4 mg HS PO Last administered on 06/24/18 21:49; Admin Dose 0.4 MG; Start 06/24/18 at 21:00; Status Hold Miscellaneous Information 1 drp BID RIGHT EYE ; Start 06/24/18 at 09:00 Calcium Carbonate (Caltrate-600) 600 mg DAILY PO Last administered on 07/05/18 08:13; Admin Dose 600 MG; Start 06/24/18 at 09:00 Albumin Human 100 ml @ 100 mls/hr DURING DIALYSIS PRN IV HYPOTENSION DURING HD; Start 06/24/18 at 09:30 Tramadol HCl (Ultracet) 2 tab Q6H PRN PO MODERATE PAIN LEVEL 4-6; Start 06/25/18 at 17:00 Loperamide HCl (Imodium) 2 mg QID PRN GTB DIARRHEA Last administered on 07/05/18 11:22; Admin Dose 2 MG; Start 06/30/18 at 10:30 Eye Lubricant (Artificial Tears Oph) 2 drop Q6H PRN BOTH EYES DRY EYES; Start 07/03/18 at 13:00 Morphine Sulfate (morphine) 2 mg Q4H PRN IV SEVERE PAIN LEVEL 7-10 Last administered on 07/06/18at 15:18; Admin Dose 2 MG; Start 07/05/18 at 18:05 Hydralazine HCl (Apresoline) 10 mg Q6H PRN IV Elevated bp; Start 07/06/18 at 10:30 Dextrose 1,000 ml @ 50 mls/hr Q20H IV Last administered on 07/06/18at 17:16; Admin Dose 50 MLS/HR; Start 07/06/18 at 17:00 Meds reviewed: Yes Allergies Coded Allergies: No Known Allergies (Unverified Allergy, Unknown, 06/24/18) Allergies Reviewed: Yes Labs/Studies Labs Reviewed: Reviewed by anesthesiologist Result Diagram: 07/06/18 0639 07/06/18 1710 Laboratory Tests 07/06/18 06:39 07/06/18 17:10 test: N/A Studies: ECG Pre-procedure Exam Last vitals Vital Signs Date Temp Pulse Resp B/P (MAP) Pulse Ox O2 O2 Flow FiO2 Time Delivery Rate 07/06/18 62 16:00 07/06/18 98.0 20 146/57 99 15:11 (86) 07/06/18 2.0 10:23 07/06/18 Nasal 09:19 Cannula Airway: Adequate mouth opening, Adequate thyromental dist Mallampati: Mallampati III Teeth: Normal Lung: Normal Heart: Normal ASA Physical Status ASA physical status: 3 Emergency: None Planned Anesthetic General/MAC: ETT, A Line Neuraxial: Epidural Planned Pain Management Epidural, Parenteral pain med Pre-operative Attestations Prior to commencing anesthesia and surgery, the patient was re-evaluated, there was verification of: *The patient's identity *The results of appropriate recent lab work and preoperative vital signs *The above evaluation not changing prior to induction *Anesthetic plan, risk benefits, alternative and complications discussed with patient/family; questions answered; patient/family understands, accepts and wishes to proceed. LYNNE MARTINEZ MD Jul 06, 2018 18:05
[2018-07-06] MEDS ORDERED: LIDOCAINE 0.5% (MDV) 50 ML INJ ONE (18:06)
[2018-07-06] MEDS ORDERED: BUPIVACAINE 0.5%/EPI (SDV) 30 ML INJ ONE (18:06)
--- NOTE | 2018-07-06 18:09 | HPN ---
Date/Time of Note Date/Time of Note DATE: 07/06/18 TIME: 18:08 Interval H&P Admission Note Pt. seen H&P reviewed: No system changes FRANCO CASTELAN MD Jul 06, 2018 18:09
[2018-07-06] MEDS ORDERED: [UNRECOGNIZED DRUG - SUPPLY] TOP ONE (20:11)
[2018-07-06] MEDS ORDERED: ETOMIDATE 20 MG INJ ONE (21:15)
[2018-07-06] MEDS ORDERED: NEOSTIGMINE 3 MG/3 ML SYRINGE ONE (21:15)
[2018-07-06] MEDS ORDERED: ROCURONIUM 50 MG INJ ONE (21:15)
[2018-07-06] MEDS ORDERED: GLYCOPYRROLATE 0.4 MG INJ ONE (21:15)
[2018-07-06] MEDS ORDERED: CEFAZOLIN 1 GM INJ ONE (21:15)
[2018-07-06] MEDS ORDERED: LIDOCAINE 2% (SDV) 5 ML INJ ONE (21:15)
--- NOTE | 2018-07-06 21:31 | OPR ---
Date/Time of Note Date/Time of Note DATE: 07/06/18 TIME: 21:27 Operative Report Procedure Date: Jul 06, 2018 Preoperative Diagnosis Left hemothorax Postoperative Diagnosis Same Operation/Procedure Performed Left video-assisted thoracic surgery total pulmonary decortication Left chest control of bleeding Bronchoscopy Surgeon see signature line Gis Geographer None Anesthesia Type: general Estimated Blood Loss: 150 - 200 ml's Transfusion none Specimen None Grafts/Implants none Complications none Disposition: PACU Procedure Description Patient was placed supine position prepped and draped in usual sterile fashion timeout was called antibiotics was given bronchoscopy was done no evidence of any endobronchial lesions were noted patient was placed in the right lateral decubitus position axillary roll was placed all pressure points were padded I made a 1 cm incision left seventh intercostal space mid axillary line incision was taken down to subcutaneous tissue which was then opened using Metzenbaum scissors 12 mm trocar was advanced into the pleural cavity A second trocar was placed just inferior and lateral to the left nipple Third trocar was placed at the tip of the scapula Large amount of clot was noted in the pleural cavity about 2 L in size which was completely decorticated removed using suction catheter Metzenbaum scissors and multiple clamps all thoracoscopic Point of bleeding was noted laterally in the chest which was electrocauterized Evidence of any further bleeding was noted This was fully irrigated using antibiotic solution 2 chest tubes 3 6 straight and 36 right ankle replaced through the trocar incisions brought out through a lower stab was secured to skin using silk suture The third incision was closed using 2-0 Vicryl suture for the deep 2-0 Vicryl suture for running subcuticular skin closure Tolerated procedure well FRANCO CASTELAN MD Jul 06, 2018 21:31
[2018-07-06] MEDS ORDERED: PHENYLephrine 10 MG INJ ONE (21:46)
[2018-07-06] MEDS ORDERED: DIPHENHYDRAMINE 50 MG INJ IV PRN (22:00)
[2018-07-06] MEDS ORDERED: ALBUMIN HUMAN 5% 250 ML IV PRN (22:00)
[2018-07-06] MEDS ORDERED: morphine (1 MG/ML) 10ML SYRINGE IV PRN ×2 (22:00)
[2018-07-06] MEDS ORDERED: MEPERIDINE 25 MG INJ IV PRN (22:00)
[2018-07-06] MEDS ORDERED: EPHEDrine SULFATE 50 MG/5 ML SYG IV PRN (22:00)
[2018-07-06] MEDS ORDERED: ONDANSETRON 4 MG INJ IV PRN (22:00)
--- NOTE | 2018-07-06 22:00 | PAC ---
Date/Time of Note Date/Time of Note DATE: 07/06/18 TIME: 21:59 Post-Anesthesia Notes Post-Anesthesia Note Last documented vital signs Vital Signs Date Temp Pulse Resp B/P (MAP) Pulse Ox O2 O2 Flow FiO2 Time Delivery Rate 07/06/18 62 16:00 07/06/18 98.0 20 146/57 99 15:11 (86) 07/06/18 2.0 10:23 07/06/18 Nasal 09:19 Cannula Activity: WNL Respiratory function: WNL Cardiovascular function: WNL Mental status: Baseline Pain reasonably controlled: Yes Hydration appropriate: Yes Nausea/Vomiting absent: Yes Comments BP:112/67, P:98, spo2:100%, T:98,9 LYNNE MARTINEZ MD Jul 06, 2018 22:00
[2018-07-06] MEDS: MIRTAZAPINE 15 MG TAB PO SCH (22:51)
[2018-07-06] MEDS ORDERED: morphine 2 MG INJ IV PRN (23:00)
[2018-07-07] VITALS (44 sets, daily range): BP systolic 46–161; BP diastolic 18–87; PULSE 78–104; RESP 11–23
[2018-07-07] MEDS ORDERED: SOD CHLORIDE 0.9% 500 ML IV STA (00:43)
[2018-07-07] MEDS: ONDANSETRON 4 MG INJ IV PRN ×2 (03:23→17:34)
[2018-07-07] MEDS: morphine 2 MG INJ IV PRN ×2 (03:47→21:59)
[2018-07-07] MEDS: morphine 4 MG/ML VIAL IV PRN ×2 (06:01→17:34)
[2018-07-07] MEDS: LEVOTHYROXINE 75 MCG TAB PO SCH (07:00)
[2018-07-07] MEDS: SEVELAMER CARBONATE 800 MG TABLET PO SCH ×3 (07:35→16:51)
[2018-07-07] MEDS: RANITIDINE 150 MG TAB PO SCH (08:00)
[2018-07-07] MEDS: CALCIUM CARBONATE (600 MG CA) TAB PO SCH (08:00)
[2018-07-07] MEDS: MULTIVIT/CA CARB/B CMPLX/FA TAB PO SCH (08:00)
--- NOTE | 2018-07-07 08:17 | PN ---
DATE: 07/07/2018 SUBJECTIVE: The patient yesterday underwent a video-assisted thoracic surgery procedure by Dr. Isabelle doyle and total pulmonary decortication. The patient is following the procedure, was extubated and tr ansferred to intensive care unit. Currently, he is receiving blood transfusion. No other acute even ts noted overnight. Please note the patient also had hemodialysis yesterday. OBJECTIVE: VITAL SIGNS: Blood pressure is 108/87, respirations 14, pulse 96, temperature 98.6. HEENT: Head is normocephalic. NECK: Supple. HEART: Regular rate. LUNGS: Show diminished breath sounds at the base. ABDOMEN: Soft, nontender to palpation without rebound or guarding. EXTREMITIES: Negative for clubbing, cyanosis. Positive edema. DERMATOLOGIC: No rashes. MUSCULOSKELETAL: No joint effusion. NEUROLOGIC: No change in exam. MEDICATIONS: Reviewed. LABORATORY DATA: Currently pending. ASSESSMENT AND PLAN: 1. End-stage renal disease. The patient had hemodialysis yesterday, tolerated well. We will follow up renal panel. Plan is for dialysis tomorrow. 2. Hypokalemia. Continue dialysis on low potassium bath. 3. Anemia. Continue to monitor hemoglobin and hematocrit levels. The patient is receiving blood transfusion. Continue Epogen. 4. Mineral bone disorder, monitor calcium and phosphorus levels. 5. Status post video-assisted thoracic surgery with pulmonary decortication. The patient's chest tu bes in place. Continue to monitor. Follow up with CT surgery. 6. Volume overload. Continue ultrafiltration dialysis. 7. Hypertension. Etiology may be secondary to blood loss. The patient is receiving blood transfusi on. Continue to monitor. 8. Hypothyroidism. Continue Synthroid. 9. Benign prostatic hypertrophy. 10. Encephalopathy, improving. Dictated By: NAE MENDOZA DO NR/NTS Conf#: [id number] DID#: [id number] CC: JUDSON TREVINO MD; WILFRID MOREL MD; GIOVANNI ODELL MD;*EndCC*
[2018-07-07] MEDS: NON-FORMULARY/PATIENT OWN MED (Atropine Sulfate/0.9 %Sod Chlr (Atropine 0.01%-Ns Eye Drops RIGHT EYE SCH ×2 (09:00→21:00)
--- NOTE | 2018-07-07 10:52 | CONS ---
Consult Date/Type/Reason Admit Date/Time Jun 24, 2018 at 03:48 Initial Consult Date 06/25/18 Type of Consult Pulmonary Date/Time of Note DATE: 07/07/18 TIME: 10:50 Subjective Status post VATS decortication. Chest tube in place awake alert. Objective Vital Signs Date Temp Pulse Resp B/P (MAP) Pulse Ox O2 O2 Flow FiO2 Time Delivery Rate 07/07/18 Nasal 3.0 08:00 Cannula 07/07/18 95 08:00 07/07/18 98.4 14 116/34 100 08:00 (61) Intake and Output 07/06/18 07/06/18 07/07/18 1515:00 23:00 07:00 IntakeIntake Total 600 ml 1800 ml OutputOutput Total 2400 ml 315 ml 529 ml BalanceBalance -2400 ml 285 ml 1271 ml Exam GENERAL: Chronically ill-appearing gentleman comfortable at rest no acute distress chest tube in place VITAL SIGNS: per chart NECK: Supple. No JVD or lymphadenopathy. CARDIAC EXAM: S1, S2. No added sounds or murmurs. CHEST: Diminished air entry left lung ABDOMEN: Soft, nontender. No guarding or rebound. EXTREMITIES: No cyanosis, clubbing or edema. NEUROLOGIC: Generalized weakness. No focal deficits. Vent Setting Fraction of Inspired Oxygen pe: 21 Results/Medications Result Diagram: 07/07/18 0746 07/07/18 0746 Results 24 hrs Laboratory Tests Test 07/06/18 11:11 07/06/18 11:58 07/06/18 16:41 07/06/18 16:43 Bedside Glucose 60 L 91 45 *L 45 *L Test 07/06/18 17:09 07/06/18 17:10 07/07/18 00:15 07/07/18 00:58 Bedside Glucose 137 Potassium Level 4.7 Hemoglobin 7.1 #L Hematocrit 21.8 #L Platelet Count 122 #L Prothrombin Time 21.6 #H Prothrombin Time 1.7 Ratio INR International 1.87 Normalized Ratio Activated 40.1 H Partial Thromboplast Time Thrombin Time 15.3 Test 07/07/18 07:46 White Blood Count 10.7 # Red Blood Count 3.86 L Hemoglobin 11.7 #L Hematocrit 35.2 #L Mean Corpuscular 91.2 Volume Mean Corpuscular 30.3 Hemoglobin Mean Corpuscular 33.2 Hemoglobin Concent Red Cell 14.7 H Distribution Width Platelet Count 145 Mean Platelet Volume 10.2 Immature 0.400 Granulocytes % Neutrophils % 89.3 H Lymphocytes % 5.2 L Monocytes % 5.0 Eosinophils % 0.0 Basophils % 0.1 Nucleated Red Blood 0.0 Cells % Immature 0.040 H Granulocytes # Neutrophils # 9.5 H Lymphocytes # 0.6 L Monocytes # 0.5 Eosinophils # 0.0 Basophils # 0.0 Nucleated Red Blood 0.0 Cells # Sodium Level 133 L Potassium Level 4.6 Chloride Level 100 Carbon Dioxide Level 26 Anion Gap 7 Blood Urea Nitrogen 22 #H Creatinine 3.02 #H Est Glomerular 22 L Filtrat Rate mL/min Glucose Level 122 # Calcium Level 7.0 L Medications Current Medications IV Flush (NS 3 ml) 3 ml PER PROTOCOL IV ; Start 06/24/18 at 06:00 Acetaminophen (Tylenol Tab) 650 mg Q6H PRN PO .PAIN 1-3 OR TEMP; Start 06/24/18 at 06:00 Acetaminophen/ Hydrocodone Bitart ([place] (5/325)) 1 tab Q6H PRN PO .PAIN 4-6 Last administered on 06/25/18 18:17; Admin Dose 1 TAB; Start 06/24/18 at 06:00 Diphenhydramine HCl (Benadryl) 50 mg Q6 PRN PO ITCHING Last administered on 07/05/18 18:13; Admin Dose 50 MG; Start 06/24/18 at 06:00 Acetaminophen/ Hydrocodone Bitart ([place] (5/325)) 2 tab Q6 PRN PO SEVERE PAIN LEVEL 7-10 Last administered on 07/05/18at 16:40; Admin Dose 2 TAB; Start 06/24/18 at 06:00 Levalbuterol (Xopenex Hfa) 2 puff Q4H RESP THERAPY PRN INH WHEEZING AND SOB; Start 06/24/18 at 06:00 Levothyroxine Sodium (Synthroid) 75 mcg BEFORE BREAKFAST PO Last administered on 07/06/18 06:00; Admin Dose 75 MCG; Start 06/24/18 at 07:00 Mirtazapine (Remeron) 7.5 mg HS PO Last administered on 07/05/18at 20:06; Admin Dose 7.5 MG; Start 06/24/18 at 21:00 Multivit/Ca Carb/ B Cmplx/FA/Prenat ([place]-Maribel) 1 tab DAILY PO Last administered on 07/05/18 08:13; Admin Dose 1 TAB; Start 06/24/18 at 09:00 Nifedipine (Procardia Xl) 90 mg BID PO Last administered on 06/24/18 14:03; Admin Dose 90 MG; Start 06/24/18 at 09:00; Status Hold Nitroglycerin (Nitroglycerin (Sl Tab) 0.4 Mg) 1 tab Q5M PRN SL CHEST PAIN; Start 06/24/18 at 06:00 Ranitidine HCl (Zantac) 150 mg DAILY PO Last administered on 07/05/18 08:13; Admin Dose 150 MG; Start 06/24/18 at 09:00 Sevelamer Carbonate (Renvela) 1,600 mg WITH MEALS PO Last administered on 07/05/18 18:11; Admin Dose 1,600 MG; Start 06/24/18 at 07:55 Tamsulosin HCl (Flomax) 0.4 mg HS PO Last administered on 06/24/18 21:49; Admin Dose 0.4 MG; Start 06/24/18 at 21:00; Status Hold Miscellaneous Information 1 drp BID RIGHT EYE ; Start 06/24/18 at 09:00 Calcium Carbonate (Caltrate-600) 600 mg DAILY PO Last administered on 07/05/18 08:13; Admin Dose 600 MG; Start 06/24/18 at 09:00 Albumin Human 100 ml @ 100 mls/hr DURING DIALYSIS PRN IV HYPOTENSION DURING HD; Start 06/24/18 at 09:30 Tramadol HCl (Ultracet) 2 tab Q6H PRN PO MODERATE PAIN LEVEL 4-6; Start 06/25/18 at 17:00 Loperamide HCl (Imodium) 2 mg QID PRN GTB DIARRHEA Last administered on 07/05/18 11:22; Admin Dose 2 MG; Start 06/30/18 at 10:30 Eye Lubricant (Artificial Tears Oph) 2 drop Q6H PRN BOTH EYES DRY EYES; Start 07/03/18 at 13:00 Morphine Sulfate (morphine) 2 mg Q4H PRN IV SEVERE PAIN LEVEL 7-10 Last administered on 07/07/18 03:47; Admin Dose 2 MG; Start 07/05/18 at 18:05 Hydralazine HCl (Apresoline) 10 mg Q6H PRN IV Elevated bp; Start 07/06/18 at 10:30 Dextrose 1,000 ml @ 50 mls/hr Q20H IV Last administered on 07/06/18at 23:06; Admin Dose 50 MLS/HR; Start 07/06/18 at 17:00 Morphine Sulfate (morphine) 4 mg Q4H PRN IV SEVERE PAIN LEVEL 7-10 Last administered on 07/07/18at 06:01; Admin Dose 4 MG; Start 07/06/18 at 22:30 Ondansetron HCl (Zofran Inj) 4 mg Q4H PRN IV NAUSEA/VOMITING; Start 07/07/18 at 10:00 Assessment/Plan Hospital Course (Demo Recall) Assessment 1. Left pleural effusion status post thoracentesis complicated by hemothorax with massive blood loss requiring blood transfusion of multiple units of packed red blood cells FFP CT chest confirms complex left hemothorax with minimal free fluid. Status post VATS decortication 2. Coagulopathy 3. End-stage renal failure on hemodialysis 4. Thrombocytopenia Plan 1. Continue chest tube drainage and incentive spirometry 2. Monitor H&H 3. Hemodialysis per nephrology team 4. Advance diet as tolerated with aspiration precautions 5. PT eval encourage out of bed Transfer to telemetry okay this afternoon if patient remains stable Critical care time 40 minutes LAVELLE GREGORIO [facility] Jul 07, 2018 10:52
--- NOTE | 2018-07-07 16:14 | PN ---
Date/Time of Note Date/Time of Note DATE: 07/07/18 TIME: 16:12 Assessment/Plan VTE Prophylaxis Risk score (from [facility])>0 risk: 7 [place]CD applied [place] [facility] Yes Pharmacological prophylaxis: NA/contraindicated Pharm contraindication: bleeding Lines/Catheters Urinary Cath still in place: No Assessment/Plan Hospital Course 58 yo male with ESRD on HD who presented with SOB from pleural effusions. Thoracentesis was performed which resulted in massive hemothorax requiring chest tube Hemothorax: -s/p l sided thoracentesis with drainage of 1L -post thoracentesis complication of hemothorax, s.p bedside L chest tube drainage -Removal of chest tube per Dr Paiz -Status post VATS with decortication, chest tube left for bleeding Acute blood loss anemia -acute on chronic 2/2 blood loss -Continue transfusions as needed ESRD on HD - HD per nephrology Diarrhea: - Unclear etiology. C Diff is negative. Immodium Anemia of CKD: - Transfuse PRN Hypothyroidism: Continue Synthroid Prophylaxis: SCDs DC planning: [facility] back to [facility] once cleared by CT surgery Result Diagram: 07/07/18 0746 07/07/18 0746 Results 24hrs Laboratory Tests Test 07/06/18 16:41 07/06/18 16:43 07/06/18 17:09 07/06/18 17:10 Bedside Glucose 45 *L 45 *L 137 Potassium Level 4.7 Test 07/07/18 00:15 07/07/18 00:58 07/07/18 07:46 Hemoglobin 7.1 #L 11.7 #L Hematocrit 21.8 #L 35.2 #L Platelet Count 122 #L 145 Prothrombin Time 21.6 #H Prothrombin Time 1.7 Ratio INR International 1.87 Normalized Ratio Activated 40.1 H Partial Thromboplast Time Thrombin Time 15.3 White Blood Count 10.7 # Red Blood Count 3.86 L Mean Corpuscular 91.2 Volume Mean Corpuscular 30.3 Hemoglobin Mean Corpuscular 33.2 Hemoglobin Concent Red Cell 14.7 H Distribution Width Mean Platelet Volume 10.2 Immature 0.400 Granulocytes % Neutrophils % 89.3 H Lymphocytes % 5.2 L Monocytes % 5.0 Eosinophils % 0.0 Basophils % 0.1 Nucleated Red Blood 0.0 Cells % Immature 0.040 H Granulocytes # Neutrophils # 9.5 H Lymphocytes # 0.6 L Monocytes # 0.5 Eosinophils # 0.0 Basophils # 0.0 Nucleated Red Blood 0.0 Cells # Sodium Level 133 L Potassium Level 4.6 Chloride Level 100 Carbon Dioxide Level 26 Anion Gap 7 Blood Urea Nitrogen 22 #H Creatinine 3.02 #H Est Glomerular 22 L Filtrat Rate mL/min Glucose Level 122 # Calcium Level 7.0 L Subjective 24 Hr Interval Summary Constitutional: no complaints Exam/Review of Systems Exam Vitals Vital Signs Date Temp Pulse Resp B/P (MAP) Pulse Ox O2 O2 Flow FiO2 Time Delivery Rate 07/07/18 96 11 133/37 100 14:00 (69) 07/07/18 98.4 Nasal 3.0 12:00 Cannula Intake and Output 07/06/18 07/06/18 07/07/18 1515:00 23:00 07:00 IntakeIntake Total 600 ml 1800 ml OutputOutput Total 2400 ml 315 ml 529 ml BalanceBalance -2400 ml 285 ml 1271 ml Constitutional: alert, oriented Respiratory: clear to auscultation Cardiovascular: regular rate and rhythm Gastrointestinal: soft; No distended Musculoskeletal: nl extremities to inspection Results Results 24hrs Laboratory Tests Test 07/06/18 16:41 07/06/18 16:43 07/06/18 17:09 07/06/18 17:10 Bedside Glucose 45 *L 45 *L 137 Potassium Level 4.7 Test 07/07/18 00:15 07/07/18 00:58 07/07/18 07:46 Hemoglobin 7.1 #L 11.7 #L Hematocrit 21.8 #L 35.2 #L Platelet Count 122 #L 145 Prothrombin Time 21.6 #H Prothrombin Time 1.7 Ratio INR International 1.87 Normalized Ratio Activated 40.1 H Partial Thromboplast Time Thrombin Time 15.3 White Blood Count 10.7 # Red Blood Count 3.86 L Mean Corpuscular 91.2 Volume Mean Corpuscular 30.3 Hemoglobin Mean Corpuscular 33.2 Hemoglobin Concent Red Cell 14.7 H Distribution Width Mean Platelet Volume 10.2 Immature 0.400 Granulocytes % Neutrophils % 89.3 H Lymphocytes % 5.2 L Monocytes % 5.0 Eosinophils % 0.0 Basophils % 0.1 Nucleated Red Blood 0.0 Cells % Immature 0.040 H Granulocytes # Neutrophils # 9.5 H Lymphocytes # 0.6 L Monocytes # 0.5 Eosinophils # 0.0 Basophils # 0.0 Nucleated Red Blood 0.0 Cells # Sodium Level 133 L Potassium Level 4.6 Chloride Level 100 Carbon Dioxide Level 26 Anion Gap 7 Blood Urea Nitrogen 22 #H Creatinine 3.02 #H Est Glomerular 22 L Filtrat Rate mL/min Glucose Level 122 # Calcium Level 7.0 L Medications Medication Current Medications IV Flush (NS 3 ml) 3 ml PER PROTOCOL IV ; Start 06/24/18 at 06:00 Acetaminophen (Tylenol Tab) 650 mg Q6H PRN PO .PAIN 1-3 OR TEMP; Start 06/24/18 at 06:00 Acetaminophen/ Hydrocodone Bitart ([place] (5/325)) 1 tab Q6H PRN PO .PAIN 4-6 Last administered on 06/25/18 18:17; Admin Dose 1 TAB; Start 06/24/18 at 06:00 Diphenhydramine HCl (Benadryl) 50 mg Q6 PRN PO ITCHING Last administered on 07/05/18 18:13; Admin Dose 50 MG; Start 06/24/18 at 06:00 Acetaminophen/ Hydrocodone Bitart ([place] (5/325)) 2 tab Q6 PRN PO SEVERE PAIN LEVEL 7-10 Last administered on 07/05/18 16:40; Admin Dose 2 TAB; Start 06/24/18 at 06:00 Levalbuterol (Xopenex Hfa) 2 puff Q4H RESP THERAPY PRN INH WHEEZING AND SOB; Start 06/24/18 at 06:00 Levothyroxine Sodium (Synthroid) 75 mcg BEFORE BREAKFAST PO Last administered on 07/06/18 06:00; Admin Dose 75 MCG; Start 06/24/18 at 07:00 Mirtazapine (Remeron) 7.5 mg HS PO Last administered on 07/05/18 20:06; Admin Dose 7.5 MG; Start 06/24/18 at 21:00 Multivit/Ca Carb/ B Cmplx/FA/Prenat ([place]) 1 tab DAILY PO Last administer ed on 07/05/18 08:13; Admin Dose 1 TAB; Start 06/24/18 at 09:00 Nifedipine (Procardia Xl) 90 mg BID PO Last administered on 1/31/19at 14:03; Admin Dose 90 MG; Start 06/24/18 at 09:00; Status Hold Nitroglycerin (Nitroglycerin (Sl Tab) 0.4 Mg) 1 tab Q5M PRN SL CHEST PAIN; Start 06/24/18 at 06:00 Ranitidine HCl (Zantac) 150 mg DAILY PO Last administered on 07/05/18 08:13; Admin Dose 150 MG; Start 06/24/18 at 09:00 Sevelamer Carbonate (Renvela) 1,600 mg WITH MEALS PO Last administered on 06/25 18:11; Admin Dose 1,600 MG; Start 06/24/18 at 07:55 Tamsulosin HCl (Flomax) 0.4 mg HS PO Last administered on 06/24/18 21:49; Admin Dose 0.4 MG; Start 06/24/18 at 21:00; Status Hold Miscellaneous Information 1 drp BID RIGHT EYE ; Start 06/24/18 at 09:00 Calcium Carbonate (Caltrate-600) 600 mg DAILY PO Last administered on 07/05/18 08:13; Admin Dose 600 MG; Start 06/24/18 at 09:00 Albumin Human 100 ml @ 100 mls/hr DURING DIALYSIS PRN IV HYPOTENSION DURING HD; Start 06/24/18 at 09:30 Tramadol HCl (Ultracet) 2 tab Q6H PRN PO MODERATE PAIN LEVEL 4-6; Start 06/25/18 at 17:00 Loperamide HCl (Imodium) 2 mg QID PRN GTB DIARRHEA Last administered on 07/05/18 11:22; Admin Dose 2 MG; Start 06/30/18 at 10:30 Eye Lubricant (Artificial Tears Oph) 2 drop Q6H PRN BOTH EYES DRY EYES; Start 07/03/18 at 13:00 Morphine Sulfate (morphine) 2 mg Q4H PRN IV SEVERE PAIN LEVEL 7-10 Last administered on 07/07/18at 03:47; Admin Dose 2 MG; Start 07/05/18 at 18:05 Hydralazine HCl (Apresoline) 10 mg Q6H PRN IV Elevated bp; Start 07/06/18 at 10:30 Dextrose 1,000 ml @ 50 mls/hr Q20H IV Last administered on 07/06/18at 23:06; Admin Dose 50 MLS/HR; Start 07/06/18 at 17:00 Morphine Sulfate (morphine) 4 mg Q4H PRN IV SEVERE PAIN LEVEL 7-10 Last administered on 07/07/18at 06:01; Admin Dose 4 MG; Start 07/06/18 at 22:30 Ondansetron HCl (Zofran Inj) 4 mg Q4H PRN IV NAUSEA/VOMITING; Start 07/07/18 at 10:00 JUDSON TREVINO Jul 07, 2018 16:14
--- NOTE | 2018-07-07 21:35 | PN ---
Date/Time of Note Date/Time of Note DATE: 07/07/18 TIME: 21:31 Assessment/Plan Lines/Catheters Cox in Place (from [facility]rsg): No Assessment/Plan Assessment/Plan SP VATS decortication CT [address] sxn Subjective 24 Hr Interval Summary Constitutional: improved Pain Control: mild Exam/Review of Systems Vital Signs Vitals Vital Signs Date Temp Pulse Resp B/P (MAP) Pulse Ox O2 O2 Flow FiO2 Time Delivery Rate 07/07/18 98.1 88 19 136/56 95 20:00 (82) 07/07/18 Room Air 16:00 07/07/18 3.0 12:00 Intake and Output 07/06/18 07/06/18 07/07/18 1414:59 22:59 06:59 IntakeIntake Total 600 ml 1750 ml OutputOutput Total 2400 ml 100 ml 744 ml BalanceBalance -2400 ml 500 ml 1006 ml Exam Eyes: nl conjunctiva, EOMI, nl lids, nl sclera ENMT: nl external ears & nose, nl lips & teeth, nl nasal mucosa & septum, mucosa pink and moist Neck: supple, non-tender Respiratory: clear to auscultation, normal air movement Cardiovascular: regular rate and rhythm, nl pulses Gastrointestinal: soft, nl liver, spleen, non-tender Musculoskeletal: nl extremities to inspection, nl gait and stance Results Result Diagram: 07/07/18 0746 07/07/18 0746 FRANCO CASTELAN MD Jul 07, 2018 21:35
[2018-07-07] MEDS: MIRTAZAPINE 15 MG TAB PO SCH (21:59)
[2018-07-08] VITALS (26 sets, daily range): BP systolic 119–157; BP diastolic 42–87; PULSE 80–94; RESP 16–18
[2018-07-08] MEDS: morphine 2 MG INJ IV PRN ×4 (05:00→21:12)
[2018-07-08] MEDS: LEVOTHYROXINE 75 MCG TAB PO SCH (05:37)
[2018-07-08] MEDS: SEVELAMER CARBONATE 800 MG TABLET PO SCH ×3 (07:55→17:24)
--- NOTE | 2018-07-08 08:26 | PN ---
DATE: 07/08/2018 SUBJECTIVE: The patient was transferred from intensive care unit to telemetry. No other acute event s overnight. The patient has moderate drainage from chest tube. No other events noted. OBJECTIVE: VITAL SIGNS: Blood pressure is 123/53, respirations 16, pulse 90, temperature 98.7. HEENT: Head is normocephalic. NECK: Supple. HEART: Regular rate. LUNGS: Show diminished breath sounds at the base. Chest tube in place. ABDOMEN: Soft, nontender to palpation, no rebound or guarding. EXTREMITIES: Negative for clubbing, cyanosis. Positive edema. DERMATOLOGIC: No rashes. MUSCULOSKELETAL: No joint effusions. NEUROLOGIC: No change in exam. LABORATORY DATA: Shows white count 6.7, hemoglobin 10.9, hematocrit 33.0, platelet count is 148. So dium 132, potassium 4.7, BUN 26, creatinine 3.42. ASSESSMENT AND PLAN: 1. End-stage renal disease. Plan is for dialysis today. Will dialyze 3 hours 2K bath, calcium 2.5. 2. Hyperkalemia, improved. Continue dialysis on a low potassium bath. 3. Anemia. Continue to monitor hemoglobin and hematocrit levels. Continue Epogen. 4. Mineral bone disorder, monitor calcium and phosphorus levels. 5. Hemothorax status post STATS with pulmonary decortication. The patient's chest tube is in place. Continue to monitor. 6. Volume overload. Continue ultrafiltration dialysis. 7. Hypertension. Continue to monitor. 8. Hypothyroidism. Continue Synthroid. 10. Benign prostatic hypertrophy. 11. Encephalopathy, improving. Dictated By: NAE SINHA/ERICKA Conf#: [id number] DID#: [id number]
[2018-07-08] MEDS: NON-FORMULARY/PATIENT OWN MED (Atropine Sulfate/0.9 %Sod Chlr (Atropine 0.01%-Ns Eye Drops RIGHT EYE SCH ×2 (08:51→21:00)
[2018-07-08] MEDS: MULTIVIT/CA CARB/B CMPLX/FA TAB PO SCH (08:51)
[2018-07-08] MEDS: CALCIUM CARBONATE (600 MG CA) TAB PO SCH (08:51)
[2018-07-08] MEDS: RANITIDINE 150 MG TAB PO SCH (08:51)
[2018-07-08] MEDS: ONDANSETRON 4 MG INJ IV PRN (09:54)
[2018-07-08] MEDS: DEXTROSE 10% 1,000 ML IV SCH (10:43)
--- NOTE | 2018-07-08 11:35 | CONS ---
Consult Date/Type/Reason Admit Date/Time Jun 24, 2018 at 03:48 Initial Consult Date 06/25/18 Type of Consult Pulmonary Date/Time of Note DATE: 07/08/18 TIME: 11:34 Subjective Stable, still with moderate chest tube drainage Objective Vital Signs Date Temp Pulse Resp B/P (MAP) Pulse Ox O2 O2 Flow FiO2 Time Delivery Rate 07/08/18 97.7 88 16 128/46 97 11:30 (73) 07/08/18 Room Air 10:50 07/08/18 3.0 08:51 Intake and Output 07/07/18 07/07/18 07/08/18 1414:59 22:59 06:59 IntakeIntake Total 400 ml 200 ml 60 ml OutputOutput Total 130 ml 80 ml 250 ml BalanceBalance 270 ml 120 ml -190 ml Exam GENERAL: Chronically ill-appearing gentleman comfortable at rest no acute distr ess chest tube in place VITAL SIGNS: per chart NECK: Supple. No JVD or lymphadenopathy. CARDIAC EXAM: S1, S2. No added sounds or murmurs. CHEST: Diminished air entry left lung ABDOMEN: Soft, nontender. No guarding or rebound. EXTREMITIES: No cyanosis, clubbing or edema. NEUROLOGIC: Generalized weakness. No focal deficits. Vent Setting Fraction of Inspired Oxygen pe: 21 Results/Medications Result Diagram: 07/08/18 0542 07/08/18 0542 Results 24 hrs Laboratory Tests Test 07/08/18 05:42 07/08/18 07:29 White Blood Count 6.7 # Red Blood Count 3.60 L Hemoglobin 10.9 L Hematocrit 33.0 L Mean Corpuscular Volume 91.7 Mean Corpuscular Hemoglobin 30.3 Mean Corpuscular Hemoglobin Concent 33.0 Red Cell Distribution Width 14.6 H Platelet Count 148 Mean Platelet Volume 9.8 Immature Granulocytes % 0.300 Neutrophils % 84.5 H Lymphocytes % 9.6 L Monocytes % 5.1 Eosinophils % 0.2 Basophils % 0.3 Nucleated Red Blood Cells % 0.0 Immature Granulocytes # 0.020 Neutrophils # 5.6 Lymphocytes # 0.6 L Monocytes # 0.3 Eosinophils # 0.0 Basophils # 0.0 Nucleated Red Blood Cells # 0.0 Sodium Level 132 L Potassium Level 4.7 Chloride Level 96 L Carbon Dioxide Level 28 Anion Gap 8 Blood Urea Nitrogen 26 H Creatinine 3.42 H Est Glomerular Filtrat Rate mL/min 19 L Glucose Level 139 Calcium Level 7.0 L Phosphorus Level 4.4 Magnesium Level 2.0 Lab Scanned Report BLOOD TRANSFUSION Medications Current Medications IV Flush (NS 3 ml) 3 ml PER PROTOCOL IV ; Start 06/24/18 at 06:00 Acetaminophen (Tylenol Tab) 650 mg Q6H PRN PO .PAIN 1-3 OR TEMP; Start 06/24/18 at 06:00 Acetaminophen/ Hydrocodone Bitart ([place] (5/325)) 1 tab Q6H PRN PO .PAIN 4-6 Last administered on 06/25/18 18:17; Admin Dose 1 TAB; Start 06/24/18 at 06:00 Diphenhydramine HCl (Benadryl) 50 mg Q6 PRN PO ITCHING Last administered on 07/05/18 18:13; Admin Dose 50 MG; Start 06/24/18 at 06:00 Acetaminophen/ Hydrocodone Bitart ([place] (5/325)) 2 tab Q6 PRN PO SEVERE PAIN LEVEL 7-10 Last administered on 07/05/18 16:40; Admin Dose 2 TAB; Start 06/24/18 at 06:00 Levalbuterol (Xopenex Hfa) 2 puff Q4H RESP THERAPY PRN INH WHEEZING AND SOB; Start 06/24/18 at 06:00 Levothyroxine Sodium (Synthroid) 75 mcg BEFORE BREAKFAST PO Last administered on 07/08/18 05:37; Admin Dose 75 MCG; Start 06/24/18 at 07:00 Mirtazapine (Remeron) 7.5 mg HS PO Last administered on 07/07/18 21:59; Admin Dose 7.5 MG; Start 06/24/18 at 21:00 Multivit/Ca Carb/ B Cmplx/FA/Prenat ([place]-Maribel) 1 tab DAILY PO Last administered on 07/05/18 08:13; Admin Dose 1 TAB; Start 06/24/18 at 09:00 Nifedipine (Procardia Xl) 90 mg BID PO Last administered on 06/24/18 14:03; Admin Dose 90 MG; Start 06/24/18 at 09:00; Status Hold Nitroglycerin (Nitroglycerin (Sl Tab) 0.4 Mg) 1 tab Q5M PRN SL CHEST PAIN; Start 06/24/18 at 06:00 Ranitidine HCl (Zantac) 150 mg DAILY PO Last administered on 07/05/18 08:13; Admin Dose 150 MG; Start 06/24/18 at 09:00 Sevelamer Carbonate (Renvela) 1,600 mg WITH MEALS PO Last administered on 07/05/18 18:11; Admin Dose 1,600 MG; Start 06/24/18 at 07:55 Tamsulosin HCl (Flomax) 0.4 mg HS PO Last administered on 06/24/18at 21:49; Admin Dose 0.4 MG; Start 06/24/18 at 21:00; Status Hold Miscellaneous Information 1 drp BID RIGHT EYE ; Start 06/24/18 at 09:00 Calcium Carbonate (Caltrate-600) 600 mg DAILY PO Last administered on 07/05/18 08:13; Admin Dose 600 MG; Start 06/24/18 at 09:00 Albumin Human 100 ml @ 100 mls/hr DURING DIALYSIS PRN IV HYPOTENSION DURING HD; Start 06/24/18 at 09:30 Tramadol HCl (Ultracet) 2 tab Q6H PRN PO MODERATE PAIN LEVEL 4-6; Start 06/25/18 at 17:00 Loperamide HCl (Imodium) 2 mg QID PRN GTB DIARRHEA Last administered on 07/05/18 11:22; Admin Dose 2 MG; Start 06/30/18 at 10:30 Eye Lubricant (Artificial Tears Oph) 2 drop Q6H PRN BOTH EYES DRY EYES; Start 07/03/18 at 13:00 Morphine Sulfate (morphine) 2 mg Q4H PRN IV SEVERE PAIN LEVEL 7-10 Last administered on 07/08/18at 09:54; Admin Dose 2 MG; Start 07/05/18 at 18:05 Hydralazine HCl (Apresoline) 10 mg Q6H PRN IV Elevated bp; Start 07/06/18 at 10:30 Dextrose 1,000 ml @ 20 mls/hr Q24H IV Last administered on 07/06/18at 23:06; Admin Dose 50 MLS/HR; Start 07/06/18 at 17:00 Morphine Sulfate (morphine) 4 mg Q4H PRN IV SEVERE PAIN LEVEL 7-10 Last administered on 07/07/18at 17:34; Admin Dose 4 MG; Start 07/06/18 at 22:30 Ondansetron HCl (Zofran Inj) 4 mg Q4H PRN IV NAUSEA/VOMITING Last administered on 07/08/18at 09:54; Admin Dose 4 MG; Start 07/07/18 at 10:00 Assessment/Plan Hospital Course (Demo Recall) Assessment 1. Left pleural effusion status post thoracentesis complicated by hemothorax with massive blood loss requiring blood transfusion of multiple units of packed red blood cells FFP CT chest confirms complex left hemothorax with minimal free fluid. Status post VATS decortication 2. Coagulopathy 3. End-stage renal failure on hemodialysis 4. Thrombocytopenia Plan 1. Continue chest tube drainage and incentive spirometry 2. Monitor H&H 3. Hemodialysis per nephrology team 4. Advance diet as tolerated with aspiration precautions 5. PT eval encourage out of bed repeat cxr. LAVELLE GREGORIO MD, FCCP Jul 08, 2018 11:35
--- NOTE | 2018-07-08 16:14 | PN ---
Date/Time of Note Date/Time of Note DATE: 07/08/18 TIME: 16:14 Assessment/Plan VTE Prophylaxis Risk score (from [facility])>0 risk: 9 SCD applied (from [facility]): Yes Pharmacological prophylaxis: NA/contraindicated Pharm contraindication: bleeding Lines/Catheters IV [facility] Type (from [facility] Mid Line Urinary Cath still in place: No Assessment/Plan Hospital Course 58 yo male with ESRD on HD who presented with SOB from pleural effusions. Thoracentesis was performed which resulted in massive hemothorax requiring chest tube Hemothorax: -s/p l sided thoracentesis with drainage of 1L -post thoracentesis complication of hemothorax, s.p bedside L chest tube drainage -Removal of chest tube per Dr Paiz -Status post VATS with decortication, chest tube left for bleeding Acute blood loss anemia -acute on chronic 2/2 blood loss -Continue transfusions as needed ESRD on HD - HD per nephrology Diarrhea: - Unclear etiology. C Diff is negative. Immodium Anemia of CKD: - Transfuse PRN Hypothyroidism: Continue Synthroid Prophylaxis: SCDs DC planning: DC back to [facility] once cleared by CT surgery Result Diagram: 07/08/18 0542 07/08/18 0542 Results 24hrs Laboratory Tests Test 07/08/18 05:42 07/08/18 07:29 White Blood Count 6.7 # Red Blood Count 3.60 L Hemoglobin 10.9 L Hematocrit 33.0 L Mean Corpuscular Volume 91.7 Mean Corpuscular Hemoglobin 30.3 Mean Corpuscular Hemoglobin Concent 33.0 Red Cell Distribution Width 14.6 H Platelet Count 148 Mean Platelet Volume 9.8 Immature Granulocytes % 0.300 Neutrophils % 84.5 H Lymphocytes % 9.6 L Monocytes % 5.1 Eosinophils % 0.2 Basophils % 0.3 Nucleated Red Blood Cells % 0.0 Immature Granulocytes # 0.020 Neutrophils # 5.6 Lymphocytes # 0.6 L Monocytes # 0.3 Eosinophils # 0.0 Basophils # 0.0 Nucleated Red Blood Cells # 0.0 Sodium Level 132 L Potassium Level 4.7 Chloride Level 96 L Carbon Dioxide Level 28 Anion Gap 8 Blood Urea Nitrogen 26 H Creatinine 3.42 H Est Glomerular Filtrat Rate mL/min 19 L Glucose Level 139 Calcium Level 7.0 L Phosphorus Level 4.4 Magnesium Level 2.0 Lab Scanned Report BLOOD TRANSFUSION Subjective 24 Hr Interval Summary Constitutional: no complaints Exam/Review of Systems Exam Vitals Vital Signs Date Temp Pulse Resp B/P (MAP) Pulse Ox O2 O2 Flow FiO2 Time Delivery Rate 07/08/18 98.7 90 16 121/87 98 15:45 (98) 07/08/18 Room Air 14:19 07/08/18 3.0 08:51 Intake and Output 07/07/18 07/07/18 07/08/18 1515:00 23:00 07:00 IntakeIntake Total 400 ml 150 ml 60 ml OutputOutput Total 130 ml 80 ml 250 ml BalanceBalance 270 ml 70 ml -190 ml Constitutional: alert, oriented Respiratory: clear to auscultation Cardiovascular: regular rate and rhythm Gastrointestinal: soft; No distended Musculoskeletal: nl extremities to inspection Results Results 24hrs Laboratory Tests Test 07/08/18 05:42 07/08/18 07:29 White Blood Count 6.7 # Red Blood Count 3.60 L Hemoglobin 10.9 L Hematocrit 33.0 L Mean Corpuscular Volume 91.7 Mean Corpuscular Hemoglobin 30.3 Mean Corpuscular Hemoglobin Concent 33.0 Red Cell Distribution Width 14.6 H Platelet Count 148 Mean Platelet Volume 9.8 Immature Granulocytes % 0.300 Neutrophils % 84.5 H Lymphocytes % 9.6 L Monocytes % 5.1 Eosinophils % 0.2 Basophils % 0.3 Nucleated Red Blood Cells % 0.0 Immature Granulocytes # 0.020 Neutrophils # 5.6 Lymphocytes # 0.6 L Monocytes # 0.3 Eosinophils # 0.0 Basophils # 0.0 Nucleated Red Blood Cells # 0.0 Sodium Level 132 L Potassium Level 4.7 Chloride Level 96 L Carbon Dioxide Level 28 Anion Gap 8 Blood Urea Nitrogen 26 H Creatinine 3.42 H Est Glomerular Filtrat Rate mL/min 19 L Glucose Level 139 Calcium Level 7.0 L Phosphorus Level 4.4 Magnesium Level 2.0 Lab Scanned Report BLOOD TRANSFUSION Medications Medication Current Medications IV Flush (NS 3 ml) 3 ml PER PROTOCOL IV ; Start 06/24/18 at 06:00 Acetaminophen (Tylenol Tab) 650 mg Q6H PRN PO .PAIN 1-3 OR TEMP; Start 06/24/18 at 06:00 Acetaminophen/ Hydrocodone Bitart ([place] (5/325)) 1 tab Q6H PRN PO .PAIN 4-6 Last administered on 06/25/18 18:17; Admin Dose 1 TAB; Start 06/24/18 at 06:00 Diphenhydramine HCl (Benadryl) 50 mg Q6 PRN PO ITCHING Last administered on 07/05/18 18:13; Admin Dose 50 MG; Start 06/24/18 at 06:00 Acetaminophen/ Hydrocodone Bitart ([place] (5/325)) 2 tab Q6 PRN PO SEVERE PAIN LEVEL 7-10 Last administered on 07/05/18 16:40; Admin Dose 2 TAB; Start 06/24/18 at 06:00 Levalbuterol (Xopenex Hfa) 2 puff Q4H RESP THERAPY PRN INH WHEEZING AND SOB; Start 06/24/18 at 06:00 Levothyroxine Sodium (Synthroid) 75 mcg BEFORE BREAKFAST PO Last administered on 07/08/18 05:37; Admin Dose 75 MCG; Start 06/24/18 at 07:00 Mirtazapine (Remeron) 7.5 mg HS PO Last administered on 07/07/18 21:59; Admin Dose 7.5 MG; Start 06/24/18 at 21:00 Multivit/Ca Carb/ B Cmplx/FA/Prenat ([place]-Maribel) 1 tab DAILY PO Last administered on 07/05/18 08:13; Admin Dose 1 TAB; Start 06/24/18 at 09:00 Nifedipine (Procardia Xl) 90 mg BID PO Last administered on 06/24/18 14:03; Admin Dose 90 MG; Start 06/24/18 at 09:00; Status Hold Nitroglycerin (Nitroglycerin (Sl Tab) 0.4 Mg) 1 tab Q5M PRN SL CHEST PAIN; Start 06/24/18 at 06:00 Ranitidine HCl (Zantac) 150 mg DAILY PO Last administered on 07/05/18 08:13; Admin Dose 150 MG; Start 06/24/18 at 09:00 Sevelamer Carbonate (Renvela) 1,600 mg WITH MEALS PO Last administered on 07/05/18 18:11; Admin Dose 1,600 MG; Start 06/24/18 at 07:55 Tamsulosin HCl (Flomax) 0.4 mg HS PO Last administered on 06/24/18 21:49; Admin Dose 0.4 MG; Start 06/24/18 at 21:00; Status Hold Miscellaneous Information 1 drp BID RIGHT EYE ; Start 06/24/18 at 09:00 Calcium Carbonate (Caltrate-600) 600 mg DAILY PO Last administered on 07/05/18 08:13; Admin Dose 600 MG; Start 06/24/18 at 09:00 Albumin Human 100 ml @ 100 mls/hr DURING DIALYSIS PRN IV HYPOTENSION DURING HD; Start 06/24/18 at 09:30 Tramadol HCl (Ultracet) 2 tab Q6H PRN PO MODERATE PAIN LEVEL 4-6; Start 06/25/18 at 17:00 Loperamide HCl (Imodium) 2 mg QID PRN GTB DIARRHEA Last administered on 07/05/18at 11:22; Admin Dose 2 MG; Start 06/30/18 at 10:30 Eye Lubricant (Artificial Tears Oph) 2 drop Q6H PRN BOTH EYES DRY EYES; Start 07/03/18 at 13:00 Morphine Sulfate (morphine) 2 mg Q4H PRN IV SEVERE PAIN LEVEL 7-10 Last administered on 07/08/18at 14:36; Admin Dose 2 MG; Start 07/05/18 at 18:05 Hydralazine HCl (Apresoline) 10 mg Q6H PRN IV Elevated bp; Start 07/06/18 at 10:30 Dextrose 1,000 ml @ 20 mls/hr Q24H IV Last administered on 07/08/18at 10:43; Admin Dose 20 MLS/HR; Start 07/06/18 at 17:00 Morphine Sulfate (morphine) 4 mg Q4H PRN IV SEVERE PAIN LEVEL 7-10 Last administered on 07/07/18at 17:34; Admin Dose 4 MG; Start 07/06/18 at 22:30 Ondansetron HCl (Zofran Inj) 4 mg Q4H PRN IV NAUSEA/VOMITING Last administered on 07/08/18 09:54; Admin Dose 4 MG; Start 07/07/18 at 10:00 JUDSON TREVINO Jul 08, 2018 16:14
[2018-07-08] MEDS: MIRTAZAPINE 15 MG TAB PO SCH (21:00)
[2018-07-09] VITALS (12 sets, daily range): BP systolic 119–135; BP diastolic 48–85; PULSE 81–86; RESP 16–20
[2018-07-09] MEDS: morphine 2 MG INJ IV PRN (04:09)
[2018-07-09] MEDS: LEVOTHYROXINE 75 MCG TAB PO SCH (06:14)
[2018-07-09] MEDS: SEVELAMER CARBONATE 800 MG TABLET PO SCH ×3 (07:55→17:37)
[2018-07-09] MEDS: MULTIVIT/CA CARB/B CMPLX/FA TAB PO SCH (08:36)
[2018-07-09] MEDS: CALCIUM CARBONATE (600 MG CA) TAB PO SCH (08:36)
[2018-07-09] MEDS: RANITIDINE 150 MG TAB PO SCH (08:37)
[2018-07-09] MEDS: NON-FORMULARY/PATIENT OWN MED (Atropine Sulfate/0.9 %Sod Chlr (Atropine 0.01%-Ns Eye Drops RIGHT EYE SCH ×2 (08:37→21:00)
[2018-07-09] MEDS: DEXTROSE 10% 1,000 ML IV SCH (10:43)
--- NOTE | 2018-07-09 11:26 | PN ---
DATE: 07/08/2018 SUBJECTIVE: Patient stable, had hemodialysis yesterday, tolerated well. The patient continues to raymond ve blood output from chest tube. No other events noted. OBJECTIVE: VITAL SIGNS: Blood pressure is 122/58, respiration 20, pulse 86, temperature 98.3. HEENT: Head is normocephalic. NECK: Supple. HEART: Regular rate. LUNGS: Show diminished breath sounds at the base. ABDOMEN: Soft, nontender to palpation without rebound or guarding. EXTREMITIES: Negative for clubbing, cyanosis, positive edema. DERMATOLOGIC: No rashes. MUSCULOSKELETAL: No joint effusion. NEUROLOGIC: No change in exam. MEDICATIONS: Reviewed. LABORATORY DATA: From 07/08/2018 was reviewed. ASSESSMENT AND PLAN: 1. End-stage renal disease. The patient had hemodialysis yesterday, tolerated well. Plan for dialy sis tomorrow. 2. Hyperkalemia, improved. Continue dialysis on a low potassium bath. 3. Anemia. Continue to monitor hemoglobin and hematocrit levels. Continue Epogen. 4. Mineral bone disorder, monitor calcium and phosphorus levels. 5. Hemothorax status post video assisted thorascopic surgery with pulmonary decortication. The jeana ent's chest tube is noted. Continue to monitor. Follow up with CT surgery. 6. Volume overload. Continue ultrafiltration dialysis. 7. Hypertension. Continue to monitor. 8. Hypothyroidism. Continue Synthroid. 9. Benign prostatic hypertrophy. 10. Encephalopathy, improving. Dictated By: NAE MENDOZA DO NR/NTS Conf#: [id number] DID#: [id number] CC: GIOVANNI ODELL MD;*EndCC*
--- NOTE | 2018-07-09 11:51 | PN ---
Date/Time of Note Date/Time of Note DATE: 07/09/18 TIME: 11:51 Assessment/Plan VTE Prophylaxis [place] [facility] [place] risk: 9 SCD applied [place] [facility] [place] Yes Pharmacological prophylaxis: NA/contraindicated Pharm contraindication: bleeding Lines/Catheters IV [facility] Type (from [facility] Mid Line Urinary Cath still in place: No Assessment/Plan Hospital Course 58 yo male with ESRD on HD who presented with SOB from pleural effusions. Thoracentesis was performed which resulted in massive hemothorax requiring chest tube Hemothorax: -s/p l sided thoracentesis with drainage of 1L -post thoracentesis complication of hemothorax, s.p bedside L chest tube drainage -Removal of chest tube per Dr Paiz -Status post VATS with decortication, chest tube left for bleeding Acute blood loss anemia -acute on chronic 2/2 blood loss -Continue transfusions as needed ESRD on HD - HD per nephrology Diarrhea: - Unclear etiology. C Diff is negative. Immodium Anemia of CKD: - Transfuse PRN Hypothyroidism: Continue Synthroid Prophylaxis: SCDs DC planning: DC back to group home once cleared by CT surgery Result Diagram: 07/09/18 0741 07/09/18 0741 Results 24hrs Laboratory Tests Test 07/09/18 07:41 White Blood Count 6.3 Red Blood Count 3.57 L Hemoglobin 10.8 L Hematocrit 32.7 L Mean Corpuscular Volume 91.6 Mean Corpuscular Hemoglobin 30.3 Mean Corpuscular Hemoglobin Concent 33.0 Red Cell Distribution Width 14.1 Platelet Count 171 Mean Platelet Volume 10.1 Immature Granulocytes % 0.500 H Neutrophils % 82.6 H Lymphocytes % 11.4 L Monocytes % 4.9 Eosinophils % 0.6 Basophils % 0.0 Nucleated Red Blood Cells % 0.0 Immature Granulocytes # 0.030 Neutrophils # 5.2 Lymphocytes # 0.7 L Monocytes # 0.3 Eosinophils # 0.0 Basophils # 0.0 Nucleated Red Blood Cells # 0.0 Sodium Level 131 L Potassium Level 4.6 Chloride Level 97 Carbon Dioxide Level 30 Anion Gap 4 L Blood Urea Nitrogen 17 # Creatinine 2.57 H Est Glomerular Filtrat Rate mL/min 26 L Glucose Level 77 # Calcium Level 7.5 L Phosphorus Level 3.6 Magnesium Level 1.9 Subjective 24 Hr Interval Summary Constitutional: no complaints Exam/Review of Systems Exam Vitals Vital Signs Date Temp Pulse Resp B/P (MAP) Pulse Ox O2 O2 Flow FiO2 Time Delivery Rate 07/09/18 98.0 84 20 129/60 97 11:34 (83) 07/08/18 Room Air 14:19 07/08/18 3.0 08:51 Intake and Output 07/08/18 07/08/18 07/09/18 1515:00 23:00 07:00 IntakeIntake Total 400 ml 100 ml OutputOutput Total 1400 ml 80 ml BalanceBalance -1400 ml 400 ml 20 ml Constitutional: alert Respiratory: clear to auscultation Cardiovascular: regular rate and rhythm Gastrointestinal: soft; No distended Musculoskeletal: nl extremities to inspection Results Results 24hrs Laboratory Tests Test 07/09/18 07:41 White Blood Count 6.3 Red Blood Count 3.57 L Hemoglobin 10.8 L Hematocrit 32.7 L Mean Corpuscular Volume 91.6 Mean Corpuscular Hemoglobin 30.3 Mean Corpuscular Hemoglobin Concent 33.0 Red Cell Distribution Width 14.1 Platelet Count 171 Mean Platelet Volume 10.1 Immature Granulocytes % 0.500 H Neutrophils % 82.6 H Lymphocytes % 11.4 L Monocytes % 4.9 Eosinophils % 0.6 Basophils % 0.0 Nucleated Red Blood Cells % 0.0 Immature Granulocytes # 0.030 Neutrophils # 5.2 Lymphocytes # 0.7 L Monocytes # 0.3 Eosinophils # 0.0 Basophils # 0.0 Nucleated Red Blood Cells # 0.0 Sodium Level 131 L Potassium Level 4.6 Chloride Level 97 Carbon Dioxide Level 30 Anion Gap 4 L Blood Urea Nitrogen 17 # Creatinine 2.57 H Est Glomerular Filtrat Rate mL/min 26 L Glucose Level 77 # Calcium Level 7.5 L Phosphorus Level 3.6 Magnesium Level 1.9 Medications Medication Current Medications IV Flush (NS 3 ml) 3 ml PER PROTOCOL IV ; Start 06/24/18 at 06:00 Acetaminophen (Tylenol Tab) 650 mg Q6H PRN PO .PAIN 1-3 OR TEMP; Start 06/24/18 at 06:00 Acetaminophen/ Hydrocodone Bitart ([place] (5/325)) 1 tab Q6H PRN PO .PAIN 4-6 Last administered on 06/25/18at 18:17; Admin Dose 1 TAB; Start 06/24/18 at 06:00 Diphenhydramine HCl (Benadryl) 50 mg Q6 PRN PO ITCHING Last administered on 07/05/18 18:13; Admin Dose 50 MG; Start 06/24/18 at 06:00 Acetaminophen/ Hydrocodone Bitart ([place] (5/325)) 2 tab Q6 PRN PO SEVERE PAIN LEVEL 7-10 Last administered on 07/05/18 16:40; Admin Dose 2 TAB; Start 06/24/18 at 06:00 Levalbuterol (Xopenex Hfa) 2 puff Q4H RESP THERAPY PRN INH WHEEZING AND SOB; Start 06/24/18 at 06:00 Levothyroxine Sodium (Synthroid) 75 mcg BEFORE BREAKFAST PO Last administered on 07/08/18 05:37; Admin Dose 75 MCG; Start 06/24/18 at 07:00 Mirtazapine (Remeron) 7.5 mg HS PO Last administered on 07/07/18 21:59; Admin Dose 7.5 MG; Start 06/24/18 at 21:00 Multivit/Ca Carb/ B Cmplx/FA/Prenat ([place]) 1 tab DAILY PO Last administered on 07/05/18 08:13; Admin Dose 1 TAB; Start 06/24/18 at 09:00 Nifedipine (Procardia Xl) 90 mg BID PO Last administered on 06/24/18 14:03; Admin Dose 90 MG; Start 06/24/18 at 09:00; Status Hold Nitroglycerin (Nitroglycerin (Sl Tab) 0.4 Mg) 1 tab Q5M PRN SL CHEST PAIN; Start 06/24/18 at 06:00 Ranitidine HCl (Zantac) 150 mg DAILY PO Last administered on 07/05/18 08:13; Admin Dose 150 MG; Start 06/24/18 at 09:00 Sevelamer Carbonate (Renvela) 1,600 mg WITH MEALS PO Last administered on 07/08/18 17:24; Admin Dose 1,600 MG; Start 06/24/18 at 07:55 Tamsulosin HCl (Flomax) 0.4 mg HS PO Last administered on 06/24/18 21:49; Admin Dose 0.4 MG; Start 06/24/18 at 21:00; Status Hold Miscellaneous Information 1 drp BID RIGHT EYE ; Start 06/24/18 at 09:00 Calcium Carbonate (Caltrate-600) 600 mg DAILY PO Last administered on 07/05/18at 08:13; Admin Dose 600 MG; Start 06/24/18 at 09:00 Albumin Human 100 ml @ 100 mls/hr DURING DIALYSIS PRN IV HYPOTENSION DURING HD; Start 06/24/18 at 09:30 Tramadol HCl (Ultracet) 2 tab Q6H PRN PO MODERATE PAIN LEVEL 4-6; Start 06/25/18 at 17:00 Loperamide HCl (Imodium) 2 mg QID PRN GTB DIARRHEA Last administered on 07/05/18at 11:22; Admin Dose 2 MG; Start 06/30/18 at 10:30 Eye Lubricant (Artificial Tears Oph) 2 drop Q6H PRN BOTH EYES DRY EYES; Start 07/03/18 at 13:00 Morphine Sulfate (morphine) 2 mg Q4H PRN IV SEVERE PAIN LEVEL 7-10 Last administered on 07/09/18at 04:09; Admin Dose 2 MG; Start 07/05/18 at 18:05 Hydralazine HCl (Apresoline) 10 mg Q6H PRN IV Elevated bp; Start 07/06/18 at 10:30 Dextrose 1,000 ml @ 20 mls/hr Q24H IV Last administered on 07/08/18at 10:43; Admin Dose 20 MLS/HR; Start 07/06/18 at 17:00 Morphine Sulfate (morphine) 4 mg Q4H PRN IV SEVERE PAIN LEVEL 7-10 Last administered on 07/07/18at 17:34; Admin Dose 4 MG; Start 07/06/18 at 22:30 Ondansetron HCl (Zofran Inj) 4 mg Q4H PRN IV NAUSEA/VOMITING Last administered on 07/08/18at 09:54; Admin Dose 4 MG; Start 07/07/18 at 10:00 JUDSON TREVINO Jul 09, 2018 11:51
--- NOTE | 2018-07-09 13:14 | CONS ---
Consult Date/Type/Reason Admit Date/Time Jun 24, 2018 at 03:48 Initial Consult Date 06/25/18 Type of Consult Pulmonary Date/Time of Note DATE: 07/09/18 TIME: 13:12 Subjective No events. Objective Vital Signs Date Temp Pulse Resp B/P (MAP) Pulse Ox O2 O2 Flow FiO2 Time Delivery Rate 07/09/18 84 12:04 07/09/18 98.0 20 129/60 97 11:34 (83) 07/08/18 Room Air 14:19 07/08/18 3.0 08:51 Intake and Output 07/08/18 07/08/18 07/09/18 1515:00 23:00 07:00 IntakeIntake Total 400 ml 100 ml OutputOutput Total 1400 ml 80 ml BalanceBalance -1400 ml 400 ml 20 ml Exam GENERAL: Chronically ill-appearing gentleman comfortable at rest no acute distress chest tube in place VITAL SIGNS: per chart NECK: Supple. No JVD or lymphadenopathy. CARDIAC EXAM: S1, S2. No added sounds or murmurs. CHEST: Diminished air entry left lung ABDOMEN: Soft, nontender. No guarding or rebound. EXTREMITIES: No cyanosis, clubbing or edema. NEUROLOGIC: Generalized weakness. No focal deficits. Vent Setting Fraction of Inspired Oxygen pe: 21 Results/Medications Result Diagram: 07/09/18 0741 07/09/18 0741 Results 24 hrs Laboratory Tests Test 07/09/18 07:41 White Blood Count 6.3 Red Blood Count 3.57 L Hemoglobin 10.8 L Hematocrit 32.7 L Mean Corpuscular Volume 91.6 Mean Corpuscular Hemoglobin 30.3 Mean Corpuscular Hemoglobin Concent 33.0 Red Cell Distribution Width 14.1 Platelet Count 171 Mean Platelet Volume 10.1 Immature Granulocytes % 0.500 H Neutrophils % 82.6 H Lymphocytes % 11.4 L Monocytes % 4.9 Eosinophils % 0.6 Basophils % 0.0 Nucleated Red Blood Cells % 0.0 Immature Granulocytes # 0.030 Neutrophils # 5.2 Lymphocytes # 0.7 L Monocytes # 0.3 Eosinophils # 0.0 Basophils # 0.0 Nucleated Red Blood Cells # 0.0 Sodium Level 131 L Potassium Level 4.6 Chloride Level 97 Carbon Dioxide Level 30 Anion Gap 4 L Blood Urea Nitrogen 17 # Creatinine 2.57 H Est Glomerular Filtrat Rate mL/min 26 L Glucose Level 77 # Calcium Level 7.5 L Phosphorus Level 3.6 Magnesium Level 1.9 Medications Current Medications IV Flush (NS 3 ml) 3 ml PER PROTOCOL IV ; Start 06/24/18 at 06:00 Acetaminophen (Tylenol Tab) 650 mg Q6H PRN PO .PAIN 1-3 OR TEMP; Start 06/24/18 at 06:00 Acetaminophen/ Hydrocodone Bitart ([place] (5/325)) 1 tab Q6H PRN PO .PAIN 4-6 Last administered on 06/25/18 18:17; Admin Dose 1 TAB; Start 06/24/18 at 06:00 Diphenhydramine HCl (Benadryl) 50 mg Q6 PRN PO ITCHING Last administered on 07/05/18 18:13; Admin Dose 50 MG; Start 06/24/18 at 06:00 Acetaminophen/ Hydrocodone Bitart ([place] (5/325)) 2 tab Q6 PRN PO SEVERE PAIN LEVEL 7-10 Last administered on 07/05/18 16:40; Admin Dose 2 TAB; Start 06/24/18 at 06:00 Levalbuterol (Xopenex Hfa) 2 puff Q4H RESP THERAPY PRN INH WHEEZING AND SOB; S tart 06/24/18 at 06:00 Levothyroxine Sodium (Synthroid) 75 mcg BEFORE BREAKFAST PO Last administered on 07/08/18 05:37; Admin Dose 75 MCG; Start 06/24/18 at 07:00 Mirtazapine (Remeron) 7.5 mg HS PO Last administered on 07/07/18 21:59; Admin Dose 7.5 MG; Start 06/24/18 at 21:00 Multivit/Ca Carb/ B Cmplx/FA/Prenat ([place]-Maribel) 1 tab DAILY PO Last administered on 07/05/18 08:13; Admin Dose 1 TAB; Start 06/24/18 at 09:00 Nifedipine (Procardia Xl) 90 mg BID PO Last administered on 06/24/18at 14:03; Admin Dose 90 MG; Start 06/24/18 at 09:00; Status Hold Nitroglycerin (Nitroglycerin (Sl Tab) 0.4 Mg) 1 tab Q5M PRN SL CHEST PAIN; Start 06/24/18 at 06:00 Ranitidine HCl (Zantac) 150 mg DAILY PO Last administered on 07/05/18 08:13; Admin Dose 150 MG; Start 06/24/18 at 09:00 Sevelamer Carbonate (Renvela) 1,600 mg WITH MEALS PO Last administered on 07/08/18 17:24; Admin Dose 1,600 MG; Start 06/24/18 at 07:55 Tamsulosin HCl (Flomax) 0.4 mg HS PO Last administered on 06/24/18 21:49; Admi n Dose 0.4 MG; Start 06/24/18 at 21:00; Status Hold Miscellaneous Information 1 drp BID RIGHT EYE ; Start 06/24/18 at 09:00 Calcium Carbonate (Caltrate-600) 600 mg DAILY PO Last administered on 07/05/18 08:13; Admin Dose 600 MG; Start 06/24/18 at 09:00 Albumin Human 100 ml @ 100 mls/hr DURING DIALYSIS PRN IV HYPOTENSION DURING HD; Start 06/24/18 at 09:30 Tramadol HCl (Ultracet) 2 tab Q6H PRN PO MODERATE PAIN LEVEL 4-6; Start 06/25/18 at 17:00 Loperamide HCl (Imodium) 2 mg QID PRN GTB DIARRHEA Last administered on 07/05/18 11:22; Admin Dose 2 MG; Start 06/30/18 at 10:30 Eye Lubricant (Artificial Tears Oph) 2 drop Q6H PRN BOTH EYES DRY EYES; Start 07/03/18 at 13:00 Morphine Sulfate (morphine) 2 mg Q4H PRN IV SEVERE PAIN LEVEL 7-10 Last administered on 07/09/18at 04:09; Admin Dose 2 MG; Start 07/05/18 at 18:05 Hydralazine HCl (Apresoline) 10 mg Q6H PRN IV Elevated bp; Start 07/06/18 at 10:30 Dextrose 1,000 ml @ 20 mls/hr Q24H IV Last administered on 07/08/18at 10:43; Admin Dose 20 MLS/HR; Start 07/06/18 at 17:00 Morphine Sulfate (morphine) 4 mg Q4H PRN IV SEVERE PAIN LEVEL 7-10 Last administered on 07/07/18 17:34; Admin Dose 4 MG; Start 07/06/18 at 22:30 Ondansetron HCl (Zofran Inj) 4 mg Q4H PRN IV NAUSEA/VOMITING Last administered on 07/08/18at 09:54; Admin Dose 4 MG; Start 07/07/18 at 10:00 Assessment/Plan Hospital Course (Demo Recall) Assessment 1. Left pleural effusion status post thoracentesis complicated by hemothorax with massive blood loss requiring blood transfusion of multiple units of packed red blood cells FFP CT chest confirms complex left hemothorax with minimal free fluid. Status post VATS decortication 2. Coagulopathy 3. End-stage renal failure on hemodialysis 4. Thrombocytopenia Plan 1. Continue chest tube drainage and incentive spirometry 2. Monitor H&H 3. Hemodialysis per nephrology team 4. Advance diet as tolerated with aspiration precautions 5. PT eval encourage out of bed repeat cxr in am. CT surgery recs. LAVELLE GREGORIO MD, [facility] Jul 09, 2018 13:14
--- NOTE | 2018-07-09 18:16 | PN ---
Date/Time of Note Date/Time of Note DATE: 07/09/18 TIME: 18:14 Assessment/Plan Lines/Catheters IV Catheter Type (from Nrsg): Mid Line Cox in Place (from Nrsg): No Assessment/Plan Assessment/Plan SP VATS decortication CT [address] sxn Subjective 24 Hr Interval Summary Constitutional: improved Pain Control: mild Exam/Review of Systems Vital Signs Vitals Vital Signs Date Temp Pulse Resp B/P (MAP) Pulse Ox O2 O2 Flow FiO2 Time Delivery Rate 07/09/18 84 16:05 07/09/18 98.0 20 135/74 95 15:28 (94) 07/08/18 Room Air 14:19 07/08/18 3.0 08:51 Intake and Output 07/08/18 07/08/18 07/09/18 1515:00 23:00 07:00 IntakeIntake Total 400 ml 100 ml OutputOutput Total 1400 ml 80 ml BalanceBalance -1400 ml 400 ml 20 ml Exam ENMT: nl external ears & nose, nl lips & teeth, nl nasal mucosa & septum, mucosa pink and moist Neck: supple, non-tender Respiratory: clear to auscultation, normal air movement Cardiovascular: regular rate and rhythm, nl pulses Gastrointestinal: soft, nl liver, spleen, non-tender Musculoskeletal: nl extremities to inspection, nl gait and stance Extremities: normal pulses Results Result Diagram: 07/09/18 0741 07/09/18 0741 FRANCO CASTELAN MD Jul 09, 2018 18:16
[2018-07-09] MEDS: MIRTAZAPINE 15 MG TAB PO SCH (21:00)
[2018-07-10] VITALS (16 sets, daily range): BP systolic 71–178; BP diastolic 31–88; PULSE 61–87; RESP 16–20
[2018-07-10] MEDS: LEVOTHYROXINE 75 MCG TAB PO SCH (05:03)
[2018-07-10] MEDS: NON-FORMULARY/PATIENT OWN MED (Atropine Sulfate/0.9 %Sod Chlr (Atropine 0.01%-Ns Eye Drops RIGHT EYE SCH ×2 (09:00→21:00)
[2018-07-10] MEDS: RANITIDINE 150 MG TAB PO SCH (09:14)
[2018-07-10] MEDS: CALCIUM CARBONATE (600 MG CA) TAB PO SCH (09:15)
[2018-07-10] MEDS: MULTIVIT/CA CARB/B CMPLX/FA TAB PO SCH (09:15)
[2018-07-10] MEDS: SEVELAMER CARBONATE 800 MG TABLET PO SCH ×3 (09:15→17:41)
[2018-07-10] MEDS: morphine 2 MG INJ IV PRN ×2 (09:25→18:48)
[2018-07-10] MEDS: DEXTROSE 10% 1,000 ML IV SCH ×2 (10:43→18:40)
--- NOTE | 2018-07-10 11:09 | PN ---
Date/Time of Note Date/Time of Note DATE: 07/10/18 TIME: 11:08 Assessment/Plan VTE Prophylaxis Risk score (from [facility])>0 risk: 11 SCD applied (from [facility]): Yes Pharmacological prophylaxis: NA/contraindicated Pharm contraindication: bleeding Lines/Catheters Urinary Cath still in place: No Assessment/Plan Hospital Course 58 yo male with ESRD on HD who presented with SOB from pleural effusions. Thoracentesis was performed which resulted in massive hemothorax requiring chest tube Hemothorax: -s/p l sided thoracentesis with drainage of 1L -post thoracentesis complication of hemothorax, s.p bedside L chest tube drainage -Removal of chest tube per Dr Paiz -Status post VATS with decortication, chest tube left for bleeding Acute blood loss anemia -acute on chronic 2/2 blood loss -Continue transfusions as needed ESRD on HD - HD per nephrology Diarrhea: - Unclear etiology. C Diff is negative. Immodium Anemia of CKD: - Transfuse PRN Hypothyroidism: Continue Synthroid Prophylaxis: SCDs DC planning: DC back to retirement once cleared by CT surgery Result Diagram: 07/09/18 0741 07/09/18 0741 Subjective 24 Hr Interval Summary Constitutional: no complaints Exam/Review of Systems Exam Vitals Vital Signs Date Temp Pulse Resp B/P (MAP) Pulse Ox O2 O2 Flow FiO2 Time Delivery Rate 07/10/18 86 08:00 07/10/18 98.7 18 108/46 95 07:38 (66) 07/08/18 Room Air 14:19 07/08/18 3.0 08:51 Intake and Output 07/09/18 07/09/18 07/10/18 1515:00 23:00 07:00 IntakeIntake Total 220 ml 450 ml 50 ml OutputOutput Total 300 ml BalanceBalance 220 ml 450 ml -250 ml Constitutional: alert, oriented Respiratory: clear to auscultation Cardiovascular: regular rate and rhythm Gastrointestinal: soft; No distended Musculoskeletal: nl extremities to inspection Medications Medication Current Medications IV Flush (NS 3 ml) 3 ml PER PROTOCOL IV ; Start 06/24/18 at 06:00 Acetaminophen (Tylenol Tab) 650 mg Q6H PRN PO .PAIN 1-3 OR TEMP; Start 06/24/18 at 06:00 Acetaminophen/ Hydrocodone Bitart ([place] (5/325)) 1 tab Q6H PRN PO .PAIN 4-6 Last administered on 06/25/18 18:17; Admin Dose 1 TAB; Start 06/24/18 at 06:00 Diphenhydramine HCl (Benadryl) 50 mg Q6 PRN PO ITCHING Last administered on 07/05/18 18:13; Admin Dose 50 MG; Start 06/24/18 at 06:00 Acetaminophen/ Hydrocodone Bitart ([place] (5/325)) 2 tab Q6 PRN PO SEVERE PAIN LEVEL 7-10 Last administered on 07/05/18 16:40; Admin Dose 2 TAB; Start 06/24/18 at 06:00 Levalbuterol (Xopenex Hfa) 2 puff Q4H RESP THERAPY PRN INH WHEEZING AND SOB; Start 06/24/18 at 06:00 Levothyroxine Sodium (Synthroid) 75 mcg BEFORE BREAKFAST PO Last administered on 07/10/18 05:03; Admin Dose 75 MCG; Start 06/24/18 at 07:00 Mirtazapine (Remeron) 7.5 mg HS PO Last administered on 07/07/18 21:59; Admin Dose 7.5 MG; Start 06/24/18 at 21:00 Multivit/Ca Carb/ B Cmplx/FA/Prenat ([place]) 1 tab DAILY PO Last administered on 07/10/18 09:15; Admin Dose 1 TAB; Start 06/24/18 at 09:00 Nifedipine (Procardia Xl) 90 mg BID PO Last administered on 06/24/18 14:03; Admin Dose 90 MG; Start 06/24/18 at 09:00; Status Hold Nitroglycerin (Nitroglycerin (Sl Tab) 0.4 Mg) 1 tab Q5M PRN SL CHEST PAIN; Start 06/24/18 at 06:00 Ranitidine HCl (Zantac) 150 mg DAILY PO Last administered on 07/10/18 09:14; Admin Dose 150 MG; Start 06/24/18 at 09:00 Sevelamer Carbonate (Renvela) 1,600 mg WITH MEALS PO Last administered on 07/10/18 09:15; Admin Dose 1,600 MG; Start 06/24/18 at 07:55 Tamsulosin HCl (Flomax) 0.4 mg HS PO Last administered on 06/24/18at 21:49; Admin Dose 0.4 MG; Start 06/24/18 at 21:00; Status Hold Miscellaneous Information 1 drp BID RIGHT EYE ; Start 06/24/18 at 09:00 Calcium Carbonate (Caltrate-600) 600 mg DAILY PO Last administered on 07/10/18 09:15; Admin Dose 600 MG; Start 06/24/18 at 09:00 Albumin Human 100 ml @ 100 mls/hr DURING DIALYSIS PRN IV HYPOTENSION DURING HD; Start 06/24/18 at 09:30 Tramadol HCl (Ultracet) 2 tab Q6H PRN PO MODERATE PAIN LEVEL 4-6; Start 06/25/18 at 17:00 Loperamide HCl (Imodium) 2 mg QID PRN GTB DIARRHEA Last administered on 07/05/18at 11:22; Admin Dose 2 MG; Start 06/30/18 at 10:30 Eye Lubricant (Artificial Tears Oph) 2 drop Q6H PRN BOTH EYES DRY EYES; Start 07/03/18 at 13:00 Morphine Sulfate (morphine) 2 mg Q4H PRN IV SEVERE PAIN LEVEL 7-10 Last administered on 07/10/18 09:25; Admin Dose 2 MG; Start 07/05/18 at 18:05 Hydralazine HCl (Apresoline) 10 mg Q6H PRN IV Elevated bp; Start 07/06/18 at 10:30 Dextrose 1,000 ml @ 20 mls/hr Q24H IV Last administered on 07/08/18 10:43; Admin Dose 20 MLS/HR; Start 07/06/18 at 17:00 Morphine Sulfate (morphine) 4 mg Q4H PRN IV SEVERE PAIN LEVEL 7-10 Last administered on 07/07/18 17:34; Admin Dose 4 MG; Start 07/06/18 at 22:30 Ondansetron HCl (Zofran Inj) 4 mg Q4H PRN IV NAUSEA/VOMITING Last administered on 07/08/18 09:54; Admin Dose 4 MG; Start 07/07/18 at 10:00 JUDSON TREVINO Jul 10, 2018 11:09
--- NOTE | 2018-07-10 12:36 | CONS ---
Consult Date/Type/Reason Admit Date/Time Jun 24, 2018 at 03:48 Initial Consult Date 06/25/18 Type of Consult Pulmonary Date/Time of Note DATE: 07/10/18 TIME: 12:35 Subjective Patient remained stable this morning with decreased chest tube output. Chest x- ray shows significant improvement in left lung atelectasis and infiltrate. Objective Vital Signs Date Temp Pulse Resp B/P (MAP) Pulse Ox O2 O2 Flow FiO2 Time Delivery Rate 07/10/18 98.6 82 18 141/53 96 11:16 (82) 07/08/18 Room Air 14:19 07/08/18 3.0 08:51 Intake and Output 07/09/18 07/09/18 07/10/18 1515:00 23:00 07:00 IntakeIntake Total 220 ml 450 ml 50 ml OutputOutput Total 300 ml BalanceBalance 220 ml 450 ml -250 ml Exam GENERAL: Chronically ill-appearing gentleman comfortable at rest no acute distress chest tube in place VITAL SIGNS: per chart NECK: Supple. No JVD or lymphadenopathy. CARDIAC EXAM: S1, S2. No added sounds or murmurs. CHEST: Diminished air entry left lung ABDOMEN: Soft, nontender. No guarding or rebound. EXTREMITIES: No cyanosis, clubbing or edema. NEUROLOGIC: Generalized weakness. No focal deficits. Vent Setting Fraction of Inspired Oxygen pe: 21 Results/Medications Result Diagram: 07/09/18 0741 07/09/18 0741 Medications Current Medications IV Flush (NS 3 ml) 3 ml PER PROTOCOL IV ; Start 06/24/18 at 06:00 Acetaminophen (Tylenol Tab) 650 mg Q6H PRN PO .PAIN 1-3 OR TEMP; Start 06/24/18 at 06:00 Acetaminophen/ Hydrocodone Bitart ([place] (5/325)) 1 tab Q6H PRN PO .PAIN 4-6 Last administered on 06/25/18at 18:17; Admin Dose 1 TAB; Start 06/24/18 at 06:00 Diphenhydramine HCl (Benadryl) 50 mg Q6 PRN PO ITCHING Last administered on 07/05/18at 18:13; Admin Dose 50 MG; Start 06/24/18 at 06:00 Acetaminophen/ Hydrocodone Bitart ([place] (5/325)) 2 tab Q6 PRN PO SEVERE PAIN LEVEL 7-10 Last administered on 07/05/18 16:40; Admin Dose 2 TAB; Start 06/24/18 at 06:00 Levalbuterol (Xopenex Hfa) 2 puff Q4H RESP THERAPY PRN INH WHEEZING AND SOB; Start 06/24/18 at 06:00 Levothyroxine Sodium (Synthroid) 75 mcg BEFORE BREAKFAST PO Last administered on 07/10/18 05:03; Admin Dose 75 MCG; Start 06/24/18 at 07:00 Mirtazapine (Remeron) 7.5 mg HS PO Last administered on 07/07/18 21:59; Admin Dose 7.5 MG; Start 06/24/18 at 21:00 Multivit/Ca Carb/ B Cmplx/FA/Prenat ([place]-Maribel) 1 tab DAILY PO Last administered on 07/10/18 09:15; Admin Dose 1 TAB; Start 06/24/18 at 09:00 Nifedipine (Procardia Xl) 90 mg BID PO Last administered on 06/24/18 14:03; Admin Dose 90 MG; Start 06/24/18 at 09:00; Status Hold Nitroglycerin (Nitroglycerin (Sl Tab) 0.4 Mg) 1 tab Q5M PRN SL CHEST PAIN; S tart 06/24/18 at 06:00 Ranitidine HCl (Zantac) 150 mg DAILY PO Last administered on 07/10/18 09:14; Admin Dose 150 MG; Start 06/24/18 at 09:00 Sevelamer Carbonate (Renvela) 1,600 mg WITH MEALS PO Last administered on 07/10/18 12:24; Admin Dose 1,600 MG; Start 06/24/18 at 07:55 Tamsulosin HCl (Flomax) 0.4 mg HS PO Last administered on 06/24/18 21:49; Admin Dose 0.4 MG; Start 06/24/18 at 21:00; Status Hold Miscellaneous Information 1 drp BID RIGHT EYE ; Start 06/24/18 at 09:00 Calcium Carbonate (Caltrate-600) 600 mg DAILY PO Last administered on 07/10/18 09:15; Admin Dose 600 MG; Start 06/24/18 at 09:00 Albumin Human 100 ml @ 100 mls/hr DURING DIALYSIS PRN IV HYPOTENSION DURING HD; Start 06/24/18 at 09:30 Tramadol HCl (Ultracet) 2 tab Q6H PRN PO MODERATE PAIN LEVEL 4-6; Start 06/25/18 at 17:00 Loperamide HCl (Imodium) 2 mg QID PRN GTB DIARRHEA Last administered on 07/05/18at 11:22; Admin Dose 2 MG; Start 06/30/18 at 10:30 Eye Lubricant (Artificial Tears Oph) 2 drop Q6H PRN BOTH EYES DRY EYES; Start 07/03/18 at 13:00 Morphine Sulfate (morphine) 2 mg Q4H PRN IV SEVERE PAIN LEVEL 7-10 Last administered on 07/10/18at 09:25; Admin Dose 2 MG; Start 07/05/18 at 18:05 Hydralazine HCl (Apresoline) 10 mg Q6H PRN IV Elevated bp; Start 07/06/18 at 10:30 Dextrose 1,000 ml @ 20 mls/hr Q24H IV Last administered on 07/08/18at 10:43; Admin Dose 20 MLS/HR; Start 07/06/18 at 17:00 Morphine Sulfate (morphine) 4 mg Q4H PRN IV SEVERE PAIN LEVEL 7-10 Last administered on 07/07/18at 17:34; Admin Dose 4 MG; Start 07/06/18 at 22:30 Ondansetron HCl (Zofran Inj) 4 mg Q4H PRN IV NAUSEA/VOMITING Last administered on 07/08/18at 09:54; Admin Dose 4 MG; Start 07/07/18 at 10:00 Assessment/Plan Hospital Course (Demo Recall) Assessment 1. Left pleural effusion status post thoracentesis complicated by hemothorax with massive blood loss requiring blood transfusion of multiple units of packed red blood cells FFP CT chest confirms complex left hemothorax with minimal free fluid. Status post VATS decortication 2. Coagulopathy 3. End-stage renal failure on hemodialysis 4. Thrombocytopenia Plan 1. Chest tube to waterseal with repeat chest x-ray 2. Monitor H&H 3. Hemodialysis per nephrology team 4. Advance diet as tolerated with aspiration precautions 5. PT eval encourage out of bed CT surgery eval to remove chest tube L[facility]EL[facility] GREGORIO MD, [facility] Jul 10, 2018 12:36
--- NOTE | 2018-07-10 13:03 | PN ---
Date/Time of Note Date/Time of Note DATE: 07/10/18 TIME: 13:02 Assessment/Plan Lines/Catheters Cox in Place (from Nrsg): No Assessment/Plan Assessment/Plan That is post video-assisted thoracic surgery and decortication Chest x-ray much improved Chest tube drainage decreased We will remove chest tubes Subjective 24 Hr Interval Summary Constitutional: improved Pain Control: mild Exam/Review of Systems Vital Signs Vitals Vital Signs Date Temp Pulse Resp B/P (MAP) Pulse Ox O2 O2 Flow FiO2 Time Delivery Rate 07/10/18 98.6 82 18 141/53 96 11:16 (82) 07/08/18 Room Air 14:19 07/08/18 3.0 08:51 Intake and Output 07/09/18 07/09/18 07/10/18 1515:00 23:00 07:00 IntakeIntake Total 220 ml 450 ml 50 ml OutputOutput Total 300 ml BalanceBalance 220 ml 450 ml -250 ml Exam Eyes: nl conjunctiva, EOMI, nl lids, nl sclera ENMT: nl external ears & nose, nl lips & teeth, nl nasal mucosa & septum, mucosa pink and moist Neck: supple, non-tender Respiratory: clear to auscultation, normal air movement Cardiovascular: regular rate and rhythm, nl pulses Gastrointestinal: soft, nl liver, spleen, non-tender Musculoskeletal: nl extremities to inspection, nl gait and stance Results Result Diagram: 07/09/18 0741 07/09/18 0741 FRANCO CASTELAN MD Jul 10, 2018 13:02
--- NOTE | 2018-07-10 15:16 | PN ---
DATE: 07/10/2018 SUBJECTIVE: The patient is stable, no events overnight. The patient is pending hemodialysis. OBJECTIVE: VITAL SIGNS: Blood pressure is 133/70, respiration 18, pulse 79, temperature 97.5. HEENT: Head is normocephalic. NECK: Supple. HEART: Regular rate. LUNGS: Show diminished breath sounds at the base. ABDOMEN: Soft, nontender to palpation without rebound or guarding. EXTREMITIES: Negative for clubbing, cyanosis, no edema. DERMATOLOGIC: No rashes. MUSCULOSKELETAL: No joint effusions. NEUROLOGIC: No change in exam. MEDICATIONS: The patient's medications has been reviewed. LABORATORY DATA: Has been reviewed. ASSESSMENT AND PLAN: 1. End-stage renal disease. Plan is for hemodialysis today. We will dialyze for 3 hours, 3K bath, calcium 2.5. 2. Hypokalemia, improved. Continue dialysis on a low potassium bath. 3. Anemia. Monitor H and H levels. Continue Epogen. 4. Mineral bone disorder. Monitor calcium and phosphorus levels. 5. Hemothorax. The patient is status post VAST with decortication. Continue to monitor. Follow up with CT surgery. 6. Volume overload. Continue ultrafiltration dialysis. 7. Hypertension. Continue to monitor. 8. Hypothyroidism. Continue Synthroid. 9. Benign prostatic hypertrophy. 10. Encephalopathy. Continue to monitor. Dictated By: NAE SINHA/ERICKA Conf#: [id number] DID#: [id number]
[2018-07-10] MEDS: MIRTAZAPINE 15 MG TAB PO SCH (21:00)
[2018-07-11] VITALS (14 sets, daily range): BP systolic 98–173; BP diastolic 42–91; PULSE 77–87; RESP 16–18
[2018-07-11] MEDS: morphine 2 MG INJ IV PRN ×2 (05:19→15:39)
[2018-07-11] MEDS: hydrALAzine 20 MG INJ IV PRN (05:24)
[2018-07-11] MEDS: LEVOTHYROXINE 75 MCG TAB PO SCH (06:36)
[2018-07-11] MEDS: SEVELAMER CARBONATE 800 MG TABLET PO SCH ×3 (08:41→17:43)
[2018-07-11] MEDS: MULTIVIT/CA CARB/B CMPLX/FA TAB PO SCH (08:41)
[2018-07-11] MEDS: RANITIDINE 150 MG TAB PO SCH (08:41)
[2018-07-11] MEDS: CALCIUM CARBONATE (600 MG CA) TAB PO SCH (08:41)
[2018-07-11] MEDS: NON-FORMULARY/PATIENT OWN MED (Atropine Sulfate/0.9 %Sod Chlr (Atropine 0.01%-Ns Eye Drops RIGHT EYE SCH (09:00)
--- NOTE | 2018-07-11 11:19 | PN ---
DATE: 07/11/2018 SUBJECTIVE: The patient is stable, no events overnight. OBJECTIVE: VITAL SIGNS: Blood pressure is 138/77, respiration 18, pulse 77, temperature 97.6. HEENT: Head is normocephalic. NECK: Supple. HEART: Regular rate. LUNGS: Show diminished breath sounds at the base. ABDOMEN: Soft, nontender to palpation without rebound or guarding. EXTREMITIES: Negative for clubbing, cyanosis, no edema. DERMATOLOGIC: No rashes. MUSCULOSKELETAL: No joint effusion. NEUROLOGIC: No change in exam. MEDICATIONS: Reviewed. LABORATORY DATA: Shows white count 4.9, hemoglobin 10.9, platelet count is 171. Sodium 135, potassi um 4.5, BUN 13, creatinine 2.23. ASSESSMENT AND PLAN: 1. End-stage renal disease. The patient had hemodialysis yesterday and tolerated it well. Will elpidio n for dialysis again tomorrow. 2. Hyperkalemia, improved. Continue dialysis low potassium bath. 3. Anemia. Monitor hemoglobin and hematocrit levels. Continue Epogen. 4. Mineral bone disorder, monitor calcium and phosphorus levels. 5. Hemothorax status. Status post VATS. The patient's chest tube was removed. Continue to monitor . 6. Volume overload. Continue ultrafiltration dialysis. 7. Hypertension. Continue current blood pressure regimen. 8. Hypothyroidism. Continue Synthroid. 9. Benign prostatic hypertrophy. 10. Encephalopathy. Continue to monitor. Dictated By: NAE MENDOZA DO NR/NTS Conf#: [id number] DID#: [id number] CC: JUDSON TREVINO MD; GIOVANNI ODELL MD; WILFRID MOREL MD;*EndCC*
--- NOTE | 2018-07-11 12:43 | CONS ---
Consult Date/Type/Reason Admit Date/Time Jun 24, 2018 at 03:48 Initial Consult Date 06/25/18 Type of Consult Pulmonary Date/Time of Note DATE: 07/11/18 TIME: 12:41 Subjective Remains stable Chest tubes removed Objective Vital Signs Date Temp Pulse Resp B/P (MAP) Pulse Ox O2 O2 Flow FiO2 Time Delivery Rate 07/11/18 98.0 83 18 160/91 96 08:00 (114) 07/11/18 Room Air 02:00 07/08/18 3.0 08:51 Intake and Output 07/10/18 07/10/18 07/11/18 1414:59 22:59 06:59 IntakeIntake Total 120 ml 200 ml OutputOutput Total 2500 ml BalanceBalance 120 ml -2300 ml Exam GENERAL: Chronically ill-appearing gentleman comfortable VITAL SIGNS: per chart NECK: Supple. No JVD or lymphadenopathy. CARDIAC EXAM: S1, S2. No added sounds or murmurs. CHEST: Diminished air entry left lung ABDOMEN: Soft, nontender. No guarding or rebound. EXTREMITIES: No cyanosis, clubbing or edema. NEUROLOGIC: Generalized weakness. No focal deficits. Vent Setting Fraction of Inspired Oxygen pe: 21 Results/Medications Result Diagram: 07/11/18 0500 07/11/18 0500 Results 24 hrs Laboratory Tests Test 07/11/18 05:00 White Blood Count 4.9 # Red Blood Count 3.59 L Hemoglobin 10.9 L Hematocrit 32.4 L Mean Corpuscular Volume 90.3 Mean Corpuscular Hemoglobin 30.4 Mean Corpuscular Hemoglobin Concent 33.6 Red Cell Distribution Width 13.2 Platelet Count 171 Mean Platelet Volume 10.0 Immature Granulocytes % 0.400 Neutrophils % 81.1 H Lymphocytes % 10.8 L Monocytes % 6.3 Eosinophils % 1.2 Basophils % 0.2 Nucleated Red Blood Cells % 0.0 Immature Granulocytes # 0.020 Neutrophils # 4.0 Lymphocytes # 0.5 L Monocytes # 0.3 Eosinophils # 0.1 Basophils # 0.0 Nucleated Red Blood Cells # 0.0 Sodium Level 135 Potassium Level 4.5 Chloride Level 98 Carbon Dioxide Level 30 Anion Gap 7 Blood Urea Nitrogen 13 Creatinine 2.23 H Est Glomerular Filtrat Rate mL/min 31 L Glucose Level 102 Calcium Level 7.7 L Phosphorus Level 3.1 Magnesium Level 2.0 Medications Current Medications IV Flush (NS 3 ml) 3 ml PER PROTOCOL IV ; Start 06/24/18 at 06:00 Acetaminophen (Tylenol Tab) 650 mg Q6H PRN PO .PAIN 1-3 OR TEMP; Start 06/24/18 at 06:00 Acetaminophen/ Hydrocodone Bitart ([place] (5/325)) 1 tab Q6H PRN PO .PAIN 4-6 Last administered on 06/25/18 18:17; Admin Dose 1 TAB; Start 06/24/18 at 06:00 Diphenhydramine HCl (Benadryl) 50 mg Q6 PRN PO ITCHING Last administered on 07/05/18 18:13; Admin Dose 50 MG; Start 06/24/18 at 06:00 Acetaminophen/ Hydrocodone Bitart ([place] (5/325)) 2 tab Q6 PRN PO SEVERE PAIN LEVEL 7-10 Last administered on 07/05/18 16:40; Admin Dose 2 TAB; Start 06/24/18 at 06:00 Levalbuterol (Xopenex Hfa) 2 puff Q4H RESP THERAPY PRN INH WHEEZING AND SOB; Start 06/24/18 at 06:00 Levothyroxine Sodium (Synthroid) 75 mcg BEFORE BREAKFAST PO Last administered on 07/11/18 06:36; Admin Dose 75 MCG; Start 06/24/18 at 07:00 Mirtazapine (Remeron) 7.5 mg HS PO Last administered on 07/07/18 21:59; Admin Dose 7.5 MG; Start 06/24/18 at 21:00 Multivit/Ca Carb/ B Cmplx/FA/Prenat ([place]-Maribel) 1 tab DAILY PO Last admini stered on 07/11/18 08:41; Admin Dose 1 TAB; Start 06/24/18 at 09:00 Nifedipine (Procardia Xl) 90 mg BID PO Last administered on 06/24/18 14:03; Admin Dose 90 MG; Start 06/24/18 at 09:00; Status Hold Nitroglycerin (Nitroglycerin (Sl Tab) 0.4 Mg) 1 tab Q5M PRN SL CHEST PAIN; Start 06/24/18 at 06:00 Ranitidine HCl (Zantac) 150 mg DAILY PO Last administered on 2/17/19at 08:41; Admin Dose 150 MG; Start 06/24/18 at 09:00 Sevelamer Carbonate (Renvela) 1,600 mg WITH MEALS PO Last administered on 07/11/18at 12:15; Admin Dose 1,600 MG; Start 06/24/18 at 07:55 Tamsulosin HCl (Flomax) 0.4 mg HS PO Last administered on 06/24/18at 21:49; Admin Dose 0.4 MG; Start 06/24/18 at 21:00; Status Hold Calcium Carbonate (Caltrate-600) 600 mg DAILY PO Last administered on 07/11/18at 08:41; Admin Dose 600 MG; Start 06/24/18 at 09:00 Albumin Human 100 ml @ 100 mls/hr DURING DIALYSIS PRN IV HYPOTENSION DURING HD; Start 06/24/18 at 09:30 Tramadol HCl (Ultracet) 2 tab Q6H PRN PO MODERATE PAIN LEVEL 4-6; Start 06/25/18 at 17:00 Loperamide HCl (Imodium) 2 mg QID PRN GTB DIARRHEA Last administered on at 11:22; Admin Dose 2 MG; Start 06/30/18 at 10:30 Eye Lubricant (Artificial Tears Oph) 2 drop Q6H PRN BOTH EYES DRY EYES; Start 07/03/18 at 13:00 Morphine Sulfate (morphine) 2 mg Q4H PRN IV SEVERE PAIN LEVEL 7-10 Last administered on 07/11/18at 05:19; Admin Dose 2 MG; Start 07/05/18 at 18:05 Hydralazine HCl (Apresoline) 10 mg Q6H PRN IV Elevated bp Last administered on 07/11/18at 05:24; Admin Dose 10 MG; Start 07/06/18 at 10:30 Morphine Sulfate (morphine) 4 mg Q4H PRN IV SEVERE PAIN LEVEL 7-10 Last administered on 07/07/18at 17:34; Admin Dose 4 MG; Start 07/06/18 at 22:30 Ondansetron HCl (Zofran Inj) 4 mg Q4H PRN IV NAUSEA/VOMITING Last administered on 07/08/18at 09:54; Admin Dose 4 MG; Start 07/07/18 at 10:00 Assessment/Plan Hospital Course (Demo Recall) Assessment 1. Left pleural effusion status post thoracentesis complicated by hemothorax with massive blood loss requiring blood transfusion of multiple units of packed red blood cells FFP CT chest confirms complex left hemothorax with minimal free fluid. Status post VATS decortication 2. Coagulopathy 3. End-stage renal failure on hemodialysis 4. Thrombocytopenia Plan 1. IS 2. Monitor H&H 3. Hemodialysis per nephrology team 4. Advance diet as tolerated with aspiration precautions 5. PT eval encourage out of bed dc planning. LAVELLE GREGORIO MD, [facility] Jul 11, 2018 12:43
[2018-07-11] MEDS ORDERED: HYDR-3601 PO (15:18)
[2018-07-11] MEDS ORDERED: ACET325T33 PO (15:18)
--- NOTE | 2018-07-11 16:38 | DS ---
Date/Time of Note Date/Time of Note DATE: 07/11/18 TIME: 16:33 Discharge Summary Admission/Discharge Info Admit Date/Time Jun 24, 2018 at 03:48 Discharge Date/Time July 11, 2018 Discharge Diagnosis Pleural effusion secondary to end-stage renal disease status post thoracentesis Hemothorax: -post thoracentesis complication of hemothorax, s.p bedside L chest tube drainage -Removal of chest tube per Dr Paiz -Status post VATS with decortication, chest tube now removed Acute blood loss anemia on chronic anemia -acute on chronic 2/2 blood loss -Status post transfusions ESRD on HD - HD per nephrology Diarrhea: Resolved - C Diff is negative. Immodium Hypothyroidism: Continue Synthroid Debility reportedly secondary to previous back surgery -Patient resides in a assisted facility Patient Condition: Good Hospital Course Patient is a 58 yo male with ESRD on HD, hypothyroidism and debility secondary to previous back surgery who presented with SOB from pleural effusions. Thoracentesis was performed which resulted in massive hemothorax requiring chest tube. Chest tube was ultimately removed the patient required VATS with decortication, chest tube was left in for bleeding and was ultimately removed. Patient was clear for DC per pulmonology as well as CT surgery. On the day of discharge patient's vitals, labs of exam are stable. Patient was discharged back to his [facility]. Home Meds Active Scripts Acetaminophen* (Tylenol*) 325 Mg Tablet, 650 MG PO Q6H PRN for .PAIN 1-3 OR TEMP, #30 TAB Prov:JUDSON TREVINO 07/11/18 Hydrocodone Bit-Acetaminophen (Hydrocodone Bit-APAP) 5-325MG Tablet, 1 TAB PO Q6H PRN for .PAIN 4-6, #30 TAB Prov:JUDSON TREVINO 07/11/18 Reported Medications Multivit/Ca Carb/B Cmplx/Fa* (Chely-Maribel*) 1 Tab Tab, 1 TAB PO DAILY, TAB 06/08/18 Mirtazapine* (Mirtazapine*) 7.5 Mg Tablet, 7.5 MG PO HS, TAB 06/08/18 Ranitidine Hcl* (Ranitidine Hcl*) 150 Mg Tablet, 150 MG PO Q12, #60 TAB 06/08/18 Calcium Carbonate* (Calcium Carbonate*) 600 MG Ca Tab, 600 MG PO DAILY, TAB 06/08/18 Diphenhydramine Hcl* (Benadryl*) 50 Mg Cap, 50 MG PO Q6 PRN for ITCHING, CAP 04/15/18 Nitroglycerin* (Nitrostat*) 0.4 Mg Tab.subl, 0.4 MG SL Q5MIN PRN for CHEST PAIN, BOTTLE 04/15/18 Ondansetron Hcl* (Zofran*) 4 Mg Tablet, 4 MG PO Q6H PRN for NAUSEA AND OR VOMITING, TAB 04/15/18 Docusate Sodium* (Colace*) 100 Mg Capsule, 200 MG PO QHS, #60 CAP 04/15/18 Nifedipine* (Nifedipine ER*) 90 Mg Tablet.sa, 90 MG PO BID, TAB.SA 04/15/18 Pantoprazole* (Protonix*) 40 Mg Tablet.dr, 40 MG PO DAILY, TAB 04/15/18 Sevelamer Hcl* (Renagel*) 800 Mg Tablet, 1600 MG PO WITH MEALS, TAB 04/15/18 Hydralazine Hcl* (Hydralazine Hcl*) 50 Mg Tab, 50 MG PO BID PRN for ELEVATED BLOOD PRESSURE, #60 TAB HOLD FOR SBP<110 OR HR <60 04/15/18 Levothyroxine Sodium* (Levoxyl*) 75 Mcg Tablet, 75 MCG PO BEFORE BREAKFAST, #30 TAB 04/15/18 Tamsulosin Hcl* (Tamsulosin Hcl*) 0.4 Mg Cap.er.24h, 0.4 MG PO HS, CAP 04/15/18 Hydrocodone/Acetaminophen ([place] 5-325 Tablet) 1 Each Tablet, 2 EACH PO Q6 PRN for SEVERE PAIN LEVEL 7-10, TAB 04/15/18 Atropine Sulfate/0.9 %Sod Chlr (Atropine 0.01%-Ns Eye Drops) 10 Ml Drops, 1 DRP RIGHT EYE BID, BOTTLE 04/15/18 Levalbuterol* (Xopenex* HFA) 15 Gm Inha, 2 PUFFS INH Q4H PRN for WHEEZING AND SOB, INHALER 04/15/18 Follow-up Plan Follow-up physicians at the assisted facility Primary Care Provider Barbara Julio MD Time spent on discharge: > 30 minutes JUDSON TREVINO Jul 11, 2018 16:38
[2018-07-11] MEDS: MIRTAZAPINE 15 MG TAB PO SCH (21:13)
[2018-07-12] VITALS (17 sets, daily range): BP systolic 96–193; BP diastolic 43–98; PULSE 69–92; RESP 16–18
[2018-07-12] MEDS: morphine 2 MG INJ IV PRN ×3 (00:45→09:46)
[2018-07-12] MEDS: hydrALAzine 20 MG INJ IV PRN (01:41)
[2018-07-12] MEDS ORDERED: POLYETHYLENE GLYCOL 17 GM PACKET PO ONE (05:30)
[2018-07-12] MEDS: LEVOTHYROXINE 75 MCG TAB PO SCH (05:47)
[2018-07-12] MEDS: RANITIDINE 150 MG TAB PO SCH (08:27)
[2018-07-12] MEDS: SEVELAMER CARBONATE 800 MG TABLET PO SCH ×2 (08:28→11:30)
[2018-07-12] MEDS: CALCIUM CARBONATE (600 MG CA) TAB PO SCH (08:28)
[2018-07-12] MEDS: MULTIVIT/CA CARB/B CMPLX/FA TAB PO SCH (08:28)
--- NOTE | 2018-07-12 09:13 | PN ---
DATE: 07/12/2018 SUBJECTIVE: The patient is stable. No events overnight. OBJECTIVE: VITAL SIGNS: Blood pressure is 110/43, temperature 97.9, pulse ox 76, respiration 18. HEENT: Head is normocephalic. NECK: Supple. HEART: Regular rate. LUNGS: Show diminished breath sounds at the base. ABDOMEN: Soft, nontender to palpation without rebound or guarding. EXTREMITIES: Negative for clubbing, cyanosis, no edema. DERMATOLOGIC: No rashes. MUSCULOSKELETAL: No joint effusion. NEUROLOGIC: No change in exam. MEDICATIONS: The patient's medications have been reviewed. LABORATORY DATA: From 07/11/2018 was reviewed. ASSESSMENT AND PLAN: 1. End-stage renal disease. The patient is scheduled for hemodialysis today. We will dialyze for 3 hours, 3k bath, calcium 2.5. 2. Hypokalemia, improved. Continue dialysis on a low potassium bath. 3. Anemia. Monitor hemoglobin and hematocrit levels. Continue Epogen. 4. Mineral bone disorder. Monitor calcium and phosphorus levels. 5. Hemothorax status post video-assisted thoracic surgery with decortication. The patient is curren tly stable. Continue to monitor. 6. Volume overload. Continue ultrafiltration dialysis. 7. Hypertension. Continue current blood pressure regimen. Continue on dialysis. 8. Hypothyroidism. Continue Synthroid. 9. Benign prostatic hypertrophy. 10. Encephalopathy. Continue to monitor. Dictated By: NAE SINHA/NTS Conf#: [id number] DID#: [id number] CC: GIOVANNI ODELL MD;*EndCC*
--- NOTE | 2018-07-12 12:09 | DS ---
Date/Time of Note Date/Time of Note DATE: 07/12/18 TIME: 12:08 Discharge Summary Admission/Discharge Info Admit Date/Time Jun 24, 2018 at 03:48 Discharge Date/Time July 12, 2018 Discharge Diagnosis Pleural effusion secondary to end-stage renal disease status post thoracentesis Hemothorax: -post thoracentesis complication of hemothorax, s.p bedside L chest tube drainage -Removal of chest tube per Dr Paiz -Status post VATS with decortication, chest tube now removed Acute blood loss anemia on chronic anemia -acute on chronic 2/2 blood loss -Status post transfusions ESRD on HD - HD per nephrology Diarrhea: Resolved - C Diff is negative. Immodium Hypothyroidism: Continue Synthroid Debility reportedly secondary to previous back surgery -Patient resides in a long-term facility Patient Condition: Good Hospital Course Patient is a 58 yo male with ESRD on HD, hypothyroidism and debility secondary to previous back surgery who presented with SOB from pleural effusions. Thoracentesis was performed which resulted in massive hemothorax requiring chest tube. Chest tube was ultimately removed the patient required VATS with decortication, chest tube was left in for bleeding and was ultimately removed. Patient was clear for DC per pulmonology as well as CT surgery. On the day of discharge patient's vitals, labs of exam are stable. Patient was discharged back to his [facility]. Home Meds Active Scripts Acetaminophen* (Tylenol*) 325 Mg Tablet, 650 MG PO Q6H PRN for .PAIN 1-3 OR TEMP, #30 TAB Prov:JUDSON TREVINO 07/11/18 Hydrocodone Bit-Acetaminophen (Hydrocodone Bit-APAP) 5-325MG Tablet, 1 TAB PO Q6H PRN for .PAIN 4-6, #30 TAB Prov:JUDSON TREVINO 07/11/18 Reported Medications Multivit/Ca Carb/B Cmplx/Fa* (Chely-Maribel*) 1 Tab Tab, 1 TAB PO DAILY, TAB 06/08/18 Mirtazapine* (Mirtazapine*) 7.5 Mg Tablet, 7.5 MG PO HS, TAB 06/08/18 Ranitidine Hcl* (Ranitidine Hcl*) 150 Mg Tablet, 150 MG PO Q12, #60 TAB 06/08/18 Calcium Carbonate* (Calcium Carbonate*) 600 MG Ca Tab, 600 MG PO DAILY, TAB 06/08/18 Diphenhydramine Hcl* (Benadryl*) 50 Mg Cap, 50 MG PO Q6 PRN for ITCHING, CAP 04/15/18 Nitroglycerin* (Nitrostat*) 0.4 Mg Tab.subl, 0.4 MG SL Q5MIN PRN for CHEST PAIN, BOTTLE 04/15/18 Ondansetron Hcl* (Zofran*) 4 Mg Tablet, 4 MG PO Q6H PRN for NAUSEA AND OR VOMITING, TAB 04/15/18 Docusate Sodium* (Colace*) 100 Mg Capsule, 200 MG PO QHS, #60 CAP 04/15/18 Nifedipine* (Nifedipine ER*) 90 Mg Tablet.sa, 90 MG PO BID, TAB.SA 04/15/18 Pantoprazole* (Protonix*) 40 Mg Tablet.dr, 40 MG PO DAILY, TAB 04/15/18 Sevelamer Hcl* (Renagel*) 800 Mg Tablet, 1600 MG PO WITH MEALS, TAB 04/15/18 Hydralazine Hcl* (Hydralazine Hcl*) 50 Mg Tab, 50 MG PO BID PRN for ELEVATED BLOOD PRESSURE, #60 TAB HOLD FOR SBP<110 OR HR <60 04/15/18 Levothyroxine Sodium* (Levoxyl*) 75 Mcg Tablet, 75 MCG PO BEFORE BREAKFAST, #30 TAB 04/15/18 Tamsulosin Hcl* (Tamsulosin Hcl*) 0.4 Mg Cap.er.24h, 0.4 MG PO HS, CAP 04/15/18 Hydrocodone/Acetaminophen ([place] 5-325 Tablet) 1 Each Tablet, 2 EACH PO Q6 PRN for SEVERE PAIN LEVEL 7-10, TAB 04/15/18 Atropine Sulfate/0.9 %Sod Chlr (Atropine 0.01%-Ns Eye Drops) 10 Ml Drops, 1 DRP RIGHT EYE BID, BOTTLE 04/15/18 Levalbuterol* (Xopenex* HFA) 15 Gm Inha, 2 PUFFS INH Q4H PRN for WHEEZING AND SOB, INHALER 04/15/18 Follow-up Plan Follow-up physicians at the long-term facility Primary Care Provider Barbara Julio MD Time spent on discharge: > 30 minutes JUDSON TREVINO Jul 12, 2018 12:09
[2018-07-12] MEDS: morphine 4 MG/ML VIAL IV PRN ×2 (13:42→17:27)
--- NOTE | 2018-07-12 15:31 | CONS ---
Consult Date/Type/Reason Admit Date/Time Jun 24, 2018 at 03:48 Initial Consult Date 06/25/18 Type of Consult Pulmonary Date/Time of Note DATE: 07/12/18 TIME: 15:31 Subjective No new events. Patient remains stable no respiratory distress. Objective Vital Signs Date Temp Pulse Resp B/P (MAP) Pulse Ox O2 O2 Flow FiO2 Time Delivery Rate 07/12/18 98.0 76 18 147/73 97 Room Air 14:56 (97) 07/08/18 3.0 08:51 Intake and Output 07/11/18 07/11/18 07/12/18 1515:00 23:00 07:00 IntakeIntake Total 360 ml BalanceBalance 360 ml Exam GENERAL: Chronically ill-appearing gentleman comfortable VITAL SIGNS: per chart NECK: Supple. No JVD or lymphadenopathy. CARDIAC EXAM: S1, S2. No added sounds or murmurs. CHEST: Diminished air entry left lung ABDOMEN: Soft, nontender. No guarding or rebound. EXTREMITIES: No cyanosis, clubbing or edema. NEUROLOGIC: Generalized weakness. No focal deficits. Vent Setting Fraction of Inspired Oxygen pe: 21 Results/Medications Result Diagram: 07/11/18 0500 07/11/18 0500 Medications Current Medications IV Flush (NS 3 ml) 3 ml PER PROTOCOL IV ; Start 06/24/18 at 06:00 Acetaminophen (Tylenol Tab) 650 mg Q6H PRN PO .PAIN 1-3 OR TEMP; Start 06/24/18 at 06:00 Acetaminophen/ Hydrocodone Bitart ([place] (5/325)) 1 tab Q6H PRN PO .PAIN 4-6 Last administered on 06/25/18at 18:17; Admin Dose 1 TAB; Start 06/24/18 at 06:00 Diphenhydramine HCl (Benadryl) 50 mg Q6 PRN PO ITCHING Last administered on 07/05/18 18:13; Admin Dose 50 MG; Start 06/24/18 at 06:00 Acetaminophen/ Hydrocodone Bitart ([place] (5/325)) 2 tab Q6 PRN PO SEVERE PAIN LEVEL 7-10 Last administered on 07/05/18at 16:40; Admin Dose 2 TAB; Start 06/24/18 at 06:00 Levalbuterol (Xopenex Hfa) 2 puff Q4H RESP THERAPY PRN INH WHEEZING AND SOB; Start 06/24/18 at 06:00 Levothyroxine Sodium (Synthroid) 75 mcg BEFORE BREAKFAST PO Last administered on 07/12/18 05:47; Admin Dose 75 MCG; Start 06/24/18 at 07:00 Mirtazapine (Remeron) 7.5 mg HS PO Last administered on 07/11/18 21:13; Admin Dose 7.5 MG; Start 06/24/18 at 21:00 Multivit/Ca Carb/ B Cmplx/FA/Prenat ([place]-Maribel) 1 tab DAILY PO Last administered on 07/12/18 08:28; Admin Dose 1 TAB; Start 06/24/18 at 09:00 Nifedipine (Procardia Xl) 90 mg BID PO Last administered on 06/24/18 14:03; Admin Dose 90 MG; Start 06/24/18 at 09:00; Status Hold Nitroglycerin (Nitroglycerin (Sl Tab) 0.4 Mg) 1 tab Q5M PRN SL CHEST PAIN; Start 06/24/18 at 06:00 Ranitidine HCl (Zantac) 150 mg DAILY PO Last administered on 07/12/18 08:27; Admin Dose 150 MG; Start 06/24/18 at 09:00 Sevelamer Carbonate (Renvela) 1,600 mg WITH MEALS PO Last administered on 07/12/18 08:28; Admin Dose 1,600 MG; Start 06/24/18 at 07:55 Tamsulosin HCl (Flomax) 0.4 mg HS PO Last administered on 06/24/18 21:49; Admin Dose 0.4 MG; Start 06/24/18 at 21:00; Status Hold Calcium Carbonate (Caltrate-600) 600 mg DAILY PO Last administered on 07/12/18 08:28; Admin Dose 600 MG; Start 06/24/18 at 09:00 Albumin Human 100 ml @ 100 mls/hr DURING DIALYSIS PRN IV HYPOTENSION DURING HD; Start 06/24/18 at 09:30 Tramadol HCl (Ultracet) 2 tab Q6H PRN PO MODERATE PAIN LEVEL 4-6; Start 06/25/18 at 17:00 Loperamide HCl (Imodium) 2 mg QID PRN GTB DIARRHEA Last administered on 07/05/18 11:22; Admin Dose 2 MG; Start 06/30/18 at 10:30 Eye Lubricant (Artificial Tears Oph) 2 drop Q6H PRN BOTH EYES DRY EYES; Start 07/03/18 at 13:00 Morphine Sulfate (morphine) 2 mg Q4H PRN IV SEVERE PAIN LEVEL 7-10 Last administered on 07/12/18 09:46; Admin Dose 2 MG; Start 07/05/18 at 18:05 Hydralazine HCl (Apresoline) 10 mg Q6H PRN IV Elevated bp Last administered on 07/12/18 01:41; Admin Dose 10 MG; Start 07/06/18 at 10:30 Morphine Sulfate (morphine) 4 mg Q4H PRN IV SEVERE PAIN LEVEL 7-10 Last administered on 07/12/18 13:42; Admin Dose 4 MG; Start 07/06/18 at 22:30 Ondansetron HCl (Zofran Inj) 4 mg Q4H PRN IV NAUSEA/VOMITING Last administered on 07/08/18 09:54; Admin Dose 4 MG; Start 07/07/18 at 10:00 Assessment/Plan Hospital Course (Demo Recall) Assessment 1. Left pleural effusion status post thoracentesis complicated by hemothorax with massive blood loss requiring blood transfusion of multiple units of packed red blood cells FFP CT chest confirms complex left hemothorax with minimal free fluid. Status post VATS decortication 2. Coagulopathy 3. End-stage renal failure on hemodialysis 4. Thrombocytopenia Plan 1. IS 2. Monitor H&H 3. Hemodialysis per nephrology team 4. Advance diet as tolerated with aspiration precautions 5. PT eval encourage out of bed dc planning. LAVELLE GREGORIO MD, [facility] Jul 12, 2018 15:31
== END 2018-07-12 17:35 | DRG 163 ==
LOC: E/R 00:20 → TEL 03:48 → ICU 06-25 02:22 → TEL 07-01 06:17 → ICU 07-06 21:56 → TEL 07-07 18:48 → PP2 07-10 17:05
PROVIDERS: ADMIT Internal Medicine; ATTEND Internal Medicine
PROC: 0W9B3ZX Drainage of Left Pleural Cavity, Percutaneous Approach, Diagnostic (ICD-10-PCS; 2018-06-24)
PROC: 5A1D70Z Performance of Urinary Filtration, Intermittent, Less than 6 Hours Per Day (ICD-10-PCS; 2018-06-24)
PROC: 06HY33Z Insertion of Infusion Device into Lower Vein, Percutaneous Approach (ICD-10-PCS; 2018-06-25)
PROC: 0W9B30Z Drainage of Left Pleural Cavity with Drainage Device, Percutaneous Approach (ICD-10-PCS; 2018-06-25)
PROC: 30233K1 Transfusion of Nonautologous Frozen Plasma into Peripheral Vein, Percutaneous Approach (ICD-10-PCS; 2018-06-25)
PROC: 30233N1 Transfusion of Nonautologous Red Blood Cells into Peripheral Vein, Percutaneous Approach (ICD-10-PCS; 2018-06-25)
PROC: 30233R1 Transfusion of Nonautologous Platelets into Peripheral Vein, Percutaneous Approach (ICD-10-PCS; 2018-06-26)
PROC: 0W3B4ZZ Control Bleeding in Left Pleural Cavity, Percutaneous Endoscopic Approach (ICD-10-PCS; 2018-07-06)
PROC: 0BJ08ZZ Inspection of Tracheobronchial Tree, Via Natural or Artificial Opening Endoscopic (ICD-10-PCS; 2018-07-06)
PROC: 0BCP4ZZ Extirpation of Matter from Left Pleura, Percutaneous Endoscopic Approach (ICD-10-PCS; principal; 2018-07-06 17:00)
DX: J90 Pleural effusion, not elsewhere classified (principal); N18.6 End stage renal disease; R57.1 Hypovolemic shock; G92 Toxic encephalopathy; I12.0 Hypertensive chronic kidney disease with stage 5 chronic kidney disease or end stage renal disease; D62 Acute posthemorrhagic anemia; I31.3 Pericardial effusion (noninflammatory); J95.830 Postprocedural hemorrhage of a respiratory system organ or structure following a respiratory system procedure; D68.9 Coagulation defect, unspecified; J94.2 Hemothorax; R19.7 Diarrhea, unspecified; E03.9 Hypothyroidism, unspecified; E87.5 Hyperkalemia; D69.6 Thrombocytopenia, unspecified; E87.70 Fluid overload, unspecified; N40.0 Benign prostatic hyperplasia without lower urinary tract symptoms; E11.319 Type 2 diabetes mellitus with unspecified diabetic retinopathy without macular edema; I10 Essential (primary) hypertension; R10.9 Unspecified abdominal pain; Y84.4 Aspiration of fluid as the cause of abnormal reaction of the patient, or of later complication, without mention of misadventure at the time of the procedure; Y92.238 Other place in hospital as the place of occurrence of the external cause; Z99.2 Dependence on renal dialysis
CPT/HCPCS: 32555; 36415; 36430; 36600; 71045; 71250; 74176; 80048; 80053; 80076; 82270; 82550; 82553; 82803; 82962; 83615; 83735; 84100; 84132; 84484; 85014; 85018; 85025; 85049; 85378; 85384; 85610; 85670; 85730; 86644; 86850; 86900; 86901; 86920; 86945; 87040; 87045; 87070; 87075; 87081; 87102; 87116; 89051; 90935; 92610; 93005; 93306; 93308; 94664; 97162; C1751; J0360; J0690; J0692; J1644; J1815; J2250; J2270; J2370; J2405; J2597; J2710; J3010; J7030; J7040; J7060; J7070; P9016; P9035; P9047; P9059; Q4081

== ENCOUNTER 2018-07-17 13:03 | Inpatient (IN) | payer OTHER ==
[~2018-07-17] VITALS: Ht 165.1 cm; Wt 51.7 kg
[~2018-07-17 13:03] MED LIST changes: +ACET325T33 PO; +HYDR-3601 PO
[2018-07-17] MEDS ORDERED: ACET-2047 PO (13:20)
[2018-07-17] MEDS ORDERED: CLON-379 PO (13:22)
[2018-07-17] MEDS ORDERED: CALC500T11 PO (13:30)
[2018-07-17] MEDS ORDERED: NOVO3I SC (13:32)
[2018-07-17] MEDS ORDERED: CRAN425C6 PO (13:38)
[2018-07-17] MEDS ORDERED: FINA5TAB4 PO (13:38)
[2018-07-17] MEDS ORDERED: NEPH PO (13:39)
[2018-07-17] MEDS ORDERED: MIRT15TA PO (13:39)
[2018-07-17] MEDS ORDERED: GUAI5SYR2 PO (13:40)
[2018-07-17] MEDS ORDERED: MORP15TA92 PO (13:40)
[2018-07-17] MEDS ORDERED: MAGN296S40 PO (13:41)
[2018-07-17] MEDS ORDERED: BISA10SU55 RC (13:42)
--- NOTE | 2018-07-17 14:06 | ERD ---
ER Documentation Chief Complaint Chief Complaint BIBA: generalized weakness, cough/CWP [id number] worse x2days HPI 58 old male presents to the emergency department from his dialysis center complaining of weakness. Patient was recently hospitalized requiring a thoracostomy for a left pleural effusion. That hospitalization was apparently accompanied by multiple comorbid issues. By report, was recently discharged went back to his dialysis center today where he was too weak to do dialysis. According the patient he has pain and weakness all over his body. There is no report of fever, vomiting or any other complaints. 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 Pre-hospital vital signs were reviewed. Pre-hospital diagnostic tests were reviewed. Upon arrival, patient is a poor historian providing no further insight. ROS All systems reviewed and are negative except as per history of present illness. Medications Home Meds Reported Medications Bisacodyl (Dulcolax) 10 Mg Supp.rect, 10 MG RC DAILY PRN for CONSTIPATION, SUPP.RECT 07/17/18 Magnesium Citrate* (Magnesium Citrate*) 296 Ml Solution, 296 ML PO ONCE PRN for CONSTIPATION, #1 BOTTLE 07/17/18 Guaifenesin-Dextromethorphan* (Robitussin* DM) 100MG/10MG/5ML Syrup, 10 ML PO Q6H PRN for COUGH, ML 07/17/18 Morphine Sulfate* (Ms Contin*) 15 Mg Tablet.sa, 15 MG PO Q12 PRN for PAIN, TAB 07/17/18 Mirtazapine* (Remeron*) 15 Mg Tablet, 15 MG PO HS, TAB 07/17/18 Finasteride* (Finasteride*) 5 Mg Tablet, 5 MG PO DAILY, TAB 07/17/18 Cranberry Extract (Cranberry) 425 Mg Capsule, 425 MG PO DAILY, CAP 07/17/18 Insulin Aspart* (Novolog Insulin Pen*) 100 Unit/Ml Soln, 0 SC .SLIDING SCALE AC, EA AC MEALS 07/17/18 Calcium Carbonate ([place]-500) 500 Mg Tablet, 500 MG PO DAILY, TAB 07/17/18 Clonidine Hcl* (Clonidine Hcl*) 0.1 Mg Tab, 0.1 MG PO PRN PRN for ELEVATED BLOOD PRESSURE, TAB 07/17/18 Acetaminophen* (Acetaminophen*) 650 Mg Tablet, 650 MG PO Q4 PRN for PAIN AND OR ELEVATED TEMP, #30 TAB 07/17/18 Multivit/Ca Carb/B Cmplx/Fa* ([place]-Maribel*) 1 Tab Tab, 1 TAB PO DAILY, TAB 06/08/18 Ranitidine Hcl* (Ranitidine Hcl*) 150 Mg Tablet, 150 MG PO Q12, #60 TAB 06/08/18 Diphenhydramine Hcl* (Benadryl*) 50 Mg Cap, 50 MG PO Q6 PRN for ITCHING, CAP 04/15/18 Nitroglycerin* (Nitrostat*) 0.4 Mg Tab.subl, 0.4 MG SL Q5MIN PRN for CHEST PAIN, BOTTLE 04/15/18 Ondansetron Hcl* (Zofran*) 4 Mg Tablet, 4 MG PO Q6H PRN for NAUSEA AND OR VOMITING, TAB 04/15/18 Docusate Sodium* (Colace*) 100 Mg Capsule, 200 MG PO QHS, #60 CAP 04/15/18 Nifedipine* (Nifedipine ER*) 90 Mg Tablet.sa, 90 MG PO BID, TAB.SA 04/15/18 Pantoprazole* (Protonix*) 40 Mg Tablet.dr, 40 MG PO DAILY, TAB 04/15/18 Sevelamer Hcl* (Renagel*) 800 Mg Tablet, 1600 MG PO WITH MEALS, TAB 04/15/18 Hydralazine Hcl* (Hydralazine Hcl*) 50 Mg Tab, 50 MG PO BID PRN for ELEVATED BLOOD PRESSURE, #60 TAB HOLD FOR SBP<110 OR HR <60 04/15/18 Levothyroxine Sodium* (Levoxyl*) 75 Mcg Tablet, 75 MCG PO BEFORE BREAKFAST, #30 TAB 04/15/18 Tamsulosin Hcl* (Tamsulosin Hcl*) 0.4 Mg Cap.er.24h, 0.4 MG PO HS, CAP 04/15/18 Hydrocodone/Acetaminophen ([place] 5-325 Tablet) 1 Each Tablet, 2 EACH PO Q6 PRN for SEVERE PAIN LEVEL 7-10, TAB 04/15/18 Atropine Sulfate/0.9 %Sod Chlr (Atropine 0.01%-Ns Eye Drops) 10 Ml Drops, 1 DRP RIGHT EYE BID, BOTTLE 04/15/18 Levalbuterol* (Xopenex* HFA) 15 Gm Inha, 2 PUFFS INH Q4H PRN for WHEEZING AND SOB, INHALER 04/15/18 Discontinued Reported Medications Multivit/Ca Carb/B Cmplx/Fa* ([place]-Maribel*) 1 Tab Tab, 1 TAB PO DAILY, TAB 07/17/18 Mirtazapine* (Mirtazapine*) 7.5 Mg Tablet, 7.5 MG PO HS, TAB 06/08/18 Calcium Carbonate* (Calcium Carbonate*) 600 MG Ca Tab, 600 MG PO DAILY, TAB 06/08/18 Discontinued Scripts Acetaminophen* (Tylenol*) 325 Mg Tablet, 650 MG PO Q6H PRN for .PAIN 1-3 OR TEMP, #30 TAB Prov:JUDSON TREVINO 07/11/18 Hydrocodone Bit-Acetaminophen (Hydrocodone Bit-APAP) 5-325MG Tablet, 1 TAB PO Q6H PRN for .PAIN 4-6, #30 TAB Prov:BELINDAJUSDON 07/11/18 Allergies Allergies: Coded Allergies: No Known Allergies (Unverified Allergy, Unknown, 06/24/18) PMhx/Soc History of Surgery: Yes (MAXIM AV Fistula) Anesthesia Reaction: No Hx Neurological Disorder: No Hx Respiratory Disorders: No Hx Cardiac Disorders: Yes Hx Psychiatric Problems: No (HX: DM) Hx Miscellaneous Medical Probl: Yes (ESRD, hypothyroid, diabetic retinopathy, psoas abscess, spinal osteomyeliti) Hx Alcohol Use: No Hx Substance Use: No Hx Tobacco Use: No Smoking Status: Never smoker Physical Exam Vitals Vital Signs Date Temp Pulse Resp B/P (MAP) Pulse Ox O2 O2 Flow FiO2 Time Delivery Rate 07/17/18 97.8 70 16 113/82 98 13:18 (92) Physical Exam GENERAL: Thin, cachectic male in no acute distress HEENT: Pupils equal, round, and reactive to light. EOMI. There is no scleral icterus. Temporal muscle wasting NECK: C-spine is soft and supple, there is no meningismus. There is no cervical lymphadenopathy. LUNGS: Clear to auscultation bilaterally. There are no rales, wheezes or rhonchi. HEART: Regular rate and rhythm, no murmurs, clicks, rubs or gallops. ABDOMEN: Soft, non-tender, non-distended. There are bowel sounds in all four quadrants. No rebound or guarding. EXTREMITIES: There is no peripheral cyanosis or edema. No focal swelling or erythema. Left upper extremity dialysis graft noted NEURO: The patient moves all four extremities with 5/5 strength. Cranial nerves II - XII are intact. Normal gait. Alert and oriented SKIN: There is no apparent rash or petechiae. HEME/LYMPHATIC: There is no evidence of excessive bruising or lymphedema. PSYCHIATRIC: The patient does not appear anxious or depressed. Result Diagram: 07/17/18 1322 07/17/18 1322 Results 24 hrs Laboratory Tests Test 07/17/18 13:22 07/17/18 13:23 White Blood Count 5.6 10^3/ul Red Blood Count 3.18 10^6/ul Hemoglobin 9.4 g/dl Hematocrit 29.1 % Mean Corpuscular Volume 91.5 fl Mean Corpuscular Hemoglobin 29.6 pg Mean Corpuscular Hemoglobin Concent 32.3 g/dl Red Cell Distribution Width 14.3 % Platelet Count 167 10^3/UL Mean Platelet Volume 9.5 fl Immature Granulocytes % 0.200 % Neutrophils % 79.0 % Lymphocytes % 12.9 % Monocytes % 6.6 % Eosinophils % 0.9 % Basophils % 0.4 % Nucleated Red Blood Cells % 0.0 /100WBC Immature Granulocytes # 0.010 10^3/ul Neutrophils # 4.4 10^3/ul Lymphocytes # 0.7 10^3/ul Monocytes # 0.4 10^3/ul Eosinophils # 0.1 10^3/ul Basophils # 0.0 10^3/ul Nucleated Red Blood Cells # 0.0 10^3/ul Prothrombin Time Pending Prothrombin Time Ratio 1.3 INR International Normalized Ratio 1.39 Activated Partial Thromboplast Time 39.2 Sec Sodium Level 133 mmol/L Potassium Level 3.8 mmol/L Chloride Level 99 mmol/L Carbon Dioxide Level 29 mmol/L Anion Gap 5 Blood Urea Nitrogen 39 mg/dl Creatinine 3.49 mg/dl Est Glomerular Filtrat Rate mL/min 18 mL/min Glucose Level 61 mg/dl Calcium Level 7.5 mg/dl Total Bilirubin 0.1 mg/dl Direct Bilirubin 0.00 mg/dl Indirect Bilirubin 0.1 mg/dl Aspartate Amino Transf (AST/SGOT) 17 IU/L Alanine Aminotransferase (ALT/SGPT) 12 IU/L Alkaline Phosphatase 100 IU/L Troponin I < 0.012 ng/ml Total Protein 6.2 g/dl Albumin 2.3 g/dl Globulin 3.90 g/dl Albumin/Globulin Ratio 0.58 POC Venous Lactate 1.0 mmol/L Procedures/MDM Patient was taken to a room, seen and evaluated. Comfort measures were initiated. Diagnostic tests were ordered and reviewed. 3 LEAD RHYTHM STRIP: [Normal sinus rhythm without ectopy] EK lead EKG reviewed by myself: [Normal Sinus Rhythm] [Normal [place] and intervals], low voltages Nonspecific ST and T wave changes without ST elevation Impression: Nondiagnostic EKG RADIOLOGY: [reviewed with the radiologist] CONSULTATION: [hospitalist] was notified for admission. Renal consult was requested REEVALUATION: 1400: Diagnostic tests were appreciated. Patient remained comfortable. Arrangements made for admission. MEDICAL DECISION MAKIN-year-old male with significant comorbid conditions including underlying renal failure presents the emergency department once again with a significant pleural effusion. His generalized weakness does not seem to be indicative of infection. Having missed his dialysis, he will need to be admitted for reinitiation of dialysis, monitoring of the pleural effusion and further diagnostic observation. Departure Diagnosis: Primary Impression: Acute kidney injury Condition: DESHAWN Barragan Jul 17, 2018 14:06
[2018-07-17] MEDS ORDERED: DIPHENHYDRAMINE 50 MG CAP PO PRN (15:00)
[2018-07-17] MEDS ORDERED: ONDANSETRON 4 MG INJ IV PRN (15:00)
[2018-07-17] MEDS ORDERED: ACETAMINOPHEN 325 MG TAB PO PRN ×2 (15:00)
[2018-07-17] MEDS ORDERED: NACL 0.9% 3 ML SYG IV SCH (15:00)
[2018-07-17] MEDS ORDERED: hydrALAzine 20 MG INJ IV PRN (15:00)
[2018-07-17] MEDS ORDERED: morphine (ER) 15 MG TAB PO PRN (15:00)
[2018-07-17] MEDS ORDERED: GUAIFENESIN/DM 5ML CUP PO PRN (15:00)
[2018-07-17] MEDS ORDERED: HYDROCODONE/APAP (5/325) TAB PO PRN (15:00)
[2018-07-17] MEDS ORDERED: LEVALBUTEROL (NEB) 0.63 MG/3 ML AMP HHN PRN (15:00)
--- NOTE | 2018-07-17 15:00 | HP ---
Date/Time of Note Date/Time of Note DATE: 07/17/18 TIME: 15:00 Assessment/Plan VTE Prophylaxis SCD applied (from Nsg): Yes Pharmacological prophylaxis: heparin Lines/Catheters IV Catheter Type (from Nrsg): Saline Lock Assessment/Plan Assessment/Plan 1. Healthcare acquired pneumonia - CXR suspicious for bilateral infiltrates in setting of cough with productive sputum. Given patient was recently hospitalized and HD patient will cover for Pseudomonas - Neb PRN and IV antibiotics on board 2. Hypoglycemia - found with glucose 61, hypoglycemia protocol 3. ESRD on HD - TTSa schedule and patient unable to tolerate HD today. Last sessions - nephrology consulted for HD management 4. Anemia of chronic disease - stable 5. hypothyroidism - TSH from last admission noted - continue levothyroxine 6. HTN - stable - continue home medications 7. BPH - continue flomax 8. Pleural effusions - HD for fluid removal. not significant enough to warrant thora 9. Diet - Renal 10. Disposition - Admit to telemetry from treatment of HCAP and HD Result Diagram: 07/17/18 1322 07/17/18 1322 Results 24hrs Laboratory Tests Test 07/17/18 13:22 07/17/18 13:23 White Blood Count 5.6 Red Blood Count 3.18 L Hemoglobin 9.4 L Hematocrit 29.1 L Mean Corpuscular Volume 91.5 Mean Corpuscular Hemoglobin 29.6 Mean Corpuscular Hemoglobin Concent 32.3 Red Cell Distribution Width 14.3 Platelet Count 167 Mean Platelet Volume 9.5 Immature Granulocytes % 0.200 Neutrophils % 79.0 H Lymphocytes % 12.9 L Monocytes % 6.6 Eosinophils % 0.9 Basophils % 0.4 Nucleated Red Blood Cells % 0.0 Immature Granulocytes # 0.010 Neutrophils # 4.4 Lymphocytes # 0.7 L Monocytes # 0.4 Eosinophils # 0.1 Basophils # 0.0 Nucleated Red Blood Cells # 0.0 Prothrombin Time 17.2 #H Prothrombin Time Ratio 1.3 INR International Normalized Ratio 1.39 Activated Partial Thromboplast Time 39.2 H Sodium Level 133 L Potassium Level 3.8 Chloride Level 99 Carbon Dioxide Level 29 Anion Gap 5 Blood Urea Nitrogen 39 H Creatinine 3.49 H Est Glomerular Filtrat Rate mL/min 18 L Glucose Level 61 L Calcium Level 7.5 L Total Bilirubin 0.1 L Direct Bilirubin 0.00 Indirect Bilirubin 0.1 Aspartate Amino Transf (AST/SGOT) 17 Alanine Aminotransferase (ALT/SGPT) 12 L Alkaline Phosphatase 100 Troponin I < 0.012 Total Protein 6.2 Albumin 2.3 L Globulin 3.90 H Albumin/Globulin Ratio 0.58 POC Venous Lactate 1.0 HPI/ROS Admit Date/Time Admit Date/Time 07/17/18 1500 Hx of Present Illness 58 yo M with PMH ESRD on HD, HTN, hypothyroid, BPH, pleural effusion s/p VATS presented to ED from dialysis center due to generalized weakness and fatigue. Patient admits to cough with productive sputum for the past 2 days. Patient is unsure color of sputum since does not look. Patients is only providing limited history due to fatigue. he also complains of chest discomfort and asking for IV pain control. He does admit it is the same pain he experiencing during last admission. patient was recently admitted to [facility] for pleural effusion requiring thoracostomy. Patient denies any dizziness, shortness of breath, nausea, vomiting, constipation, diarrhea, or urinary issues. ROS All 12 systems reviewed and pertinent positives as per HPI. All others negative. Patient not the most forthcoming with information given fatigue. Constitutional: disoriented, fatigue; No nausea Eyes: No discharge ENT: No discharge Respiratory: cough, sputum; No shortness of breath, No wheezing Cardiovascular: chest pain, edema; No lightheadedness, No palpitations Gastrointestinal: No pain, No constipation, No diarrhea, No nausea, No vomiting Genitourinary: no complaints Musculoskeletal: no complaints Skin: No laceration, No rash Neurologic: No confusion, No focal-weakness, No syncope Endocrine: no complaints Lymphatic: no complaints Psychological: nl mood/affect Immunologic: no complaints PMH/Family/Social Past Medical History Medical History: hypertension, hypothyroid, renal disease, other (BPH, ) Medications Current Medications Acetaminophen (Tylenol Tab) 650 mg Q4 PRN PO MILD PAIN(1-3)OR ELEVATED TEMP; Start 07/17/18 at 15:00; Status UNV Calcium Carbonate ([place] Calcium) 0.5 gm DAILY PO ; Start 07/18/18 at 09:00; Status UNV Clonidine ([place]ap[place]) 0.1 mg PRN PRN PO ELEVATED BLOOD PRESSURE; Start 07/17/18 at 15:00; Status UNV Diphenhydramine HCl (Benadryl) 50 mg Q6 PRN PO ITCHING; Start 07/17/18 at 15:00; Status UNV Docusate Sodium (Colace) 200 mg QHS PO ; Start 07/17/18 at 21:00; Status UNV Finasteride (Proscar) 5 mg DAILY PO ; Start 07/18/18 at 09:00; Status UNV Guaifenesin/ Dextromethorphan (Robitussin Dm Liquid Cup) 10 ml Q6H PRN PO COUGH; Start 07/17/18 at 15:00; Status UNV Acetaminophen/ Hydrocodone Bitart ([place] (5/325)) 1 tab Q6 PRN PO SEVERE PAIN LEVEL 7-10; Start 07/17/18 at 15:00; Status UNV Levothyroxine Sodium (Synthroid) 75 mcg BEFORE BREAKFAST PO ; Start 07/18/18 at 07:00; Status UNV Mirtazapine (Remeron) 15 mg HS PO ; Start 07/17/18 at 21:00; Status UNV Morphine Sulfate (Ms Contin (Er)) 15 mg Q12 PRN PO PAIN; Start 07/17/18 at 15:00; Status UNV Multivit/Ca Carb/ B Cmplx/FA/Prenat ([place]-Maribel) 1 tab DAILY PO ; Start 07/18/18 at 09:00; Status UNV Nifedipine (Procardia Xl) 90 mg BID PO ; Start 07/17/18 at 21:00; Status UNV Pantoprazole (Protonix Tab) 40 mg DAILY PO ; Start 07/18/18 at 09:00; Status UNV Sevelamer HCl (Renagel) 1,600 mg WITH MEALS PO ; Start 07/17/18 at 18:00; Status UNV Tamsulosin HCl (Flomax) 0.4 mg HS PO ; Start 07/17/18 at 21:00; Status UNV Hydralazine HCl (Apresoline) 10 mg Q4H PRN IV SBp >170; Start 07/17/18 at 15:00; Status UNV Levalbuterol (Xopenex Neb) 0.63 mg Q4H RESP THERAPY PRN HHN SHORTNESS OF BREATH; Start 07/17/18 at 15:00; Status UNV Coded Allergies: No Known Allergies (Unverified Allergy, Unknown, 06/24/18) Past Surgical History Past Surgical Hx: other (VATS, laminectomy) Family History Significant Family History: no pertinent family hx Social History Alcohol Use: none Smoking Status: Never smoker Drug Use: none Exam/Review of Systems Vital Signs Vitals Vital Signs Date Temp Pulse Resp B/P (MAP) Pulse Ox O2 O2 Flow FiO2 Time Delivery Rate 07/17/18 97.8 70 16 113/82 98 13:18 (92) Exam Exam General: Patient is in no acute distress, fatigued, pulling covers over head. temporal muscle wasting HEENT: Atraumatic, normocephalic. The pupils are equal, round and reactive. Extraocular motor are intact, mucous membranes dry Neck: Supple with full range of motion. No rigidity or meningismus Chest: Nontender Lungs: Clear to auscultation bilaterally no crackles rales or wheezing Heart: Normal S1-S2, Regular rhythm and rate. no murmurs Abdomen: Soft, nontender, nondistended , bowel sounds are present. No guarding no rebound tenderness , No masses or organomegaly. No costovertebral temporal angle mass Extremities: Normal to inspection, no edema no cyanosis. L AVF appreciated Neurologic: Normal mental status, speech normal, cranial nerves II through XII are intact, motor and sensory are intact, no focal weakness Additional Comments Home medications reviewed PROCEDURE: XR Chest. CLINICAL INDICATION: Sepsis TECHNIQUE: Frontal chest x-ray was obtained. COMPARISON: Frontal chest x-ray May 20, 2018 and July 11, 2018. FINDINGS: The heart is not enlarged. Mediastinum is not widened. No hilar masses seen. There is persistent patchy consolidation at the lung bases, left greater than right with small left pleural effusion. No pneumothorax is seen. IMPRESSION: Bibasilar infiltrates, left greater than right with small left pleural effusion. No change . .Lev Salazar MD, MD Date Time Electronically viewed and signed by .Lev Salazar MD, MD on 07/17/2018 14:14 AIDE CAMPBELL MD Jul 17, 2018 15:00
[2018-07-17] MEDS ORDERED: DEXTROSE 50% 50 ML SYRINGE IV PRN ×2 (16:00)
[2018-07-17] MEDS ORDERED: GLUCOSE GEL 15 GRAM TUBE PO PRN ×2 (16:00)
[2018-07-17] MEDS ORDERED: GLUCOSE GEL 15 GRAM TUBE BUCCAL PRN (16:00)
[2018-07-17] MEDS ORDERED: GLUCAGON 1 MG INJ IM PRN (16:00)
[2018-07-17] MEDS ORDERED: CEFEPIME 2GM/50 ML (PMX) 50 ML IV SCH ×3 (16:30→22:00)
[2018-07-17] MEDS: morphine 2 MG INJ IV PRN (16:30)
[2018-07-17 16:45] VITALS: BP 99/60; PULSE 69; RESP 18; Ht 165.1 cm; Wt 51.7 kg
[2018-07-17 17:46] VITALS: PULSE 65
[2018-07-17] MEDS: SEVELAMER CARBONATE 800 MG TABLET PO SCH (17:55)
[2018-07-17 20:00] VITALS: BP 106/68; PULSE 63; PULSE 64; RESP 18
[2018-07-17] MEDS ORDERED: TAMSULOSIN (SR) 0.4 MG CAP PO SCH (21:00)
[2018-07-17] MEDS: DOCUSATE SODIUM 100 MG CAP PO SCH (21:00)
[2018-07-17] MEDS: NIFEdipine (XL) 90 MG TAB PO SCH (21:12)
[2018-07-17] MEDS: MIRTAZAPINE 15 MG TAB PO SCH (21:13)
[2018-07-17] MEDS: HEPARIN 5,000 UNIT/1 ML VIAL SC SCH (21:27)
[2018-07-18] VITALS (24 sets, daily range): BP systolic 84–139; BP diastolic 48–73; PULSE 59–98; RESP 16–19
[2018-07-18] MEDS: PANTOPRAZOLE (EC) 40 MG TAB PO SCH (06:16)
[2018-07-18] MEDS: LEVOTHYROXINE 75 MCG TAB PO SCH (06:16)
[2018-07-18] MEDS: MULTIVIT/CA CARB/B CMPLX/FA TAB PO SCH (08:46)
[2018-07-18] MEDS: CALCIUM CARBONATE 1.25 GM TAB PO SCH (08:46)
[2018-07-18] MEDS: SEVELAMER CARBONATE 800 MG TABLET PO SCH ×3 (08:46→17:27)
[2018-07-18] MEDS: NIFEdipine (XL) 90 MG TAB PO SCH ×2 (08:46→21:00)
[2018-07-18] MEDS: HEPARIN 5,000 UNIT/1 ML VIAL SC SCH ×2 (08:52→23:14)
[2018-07-18] MEDS ORDERED: FINASTERIDE 5 MG TAB PO SCH (09:00)
[2018-07-18] MEDS: morphine 2 MG INJ IV PRN ×2 (09:27→15:30)
--- NOTE | 2018-07-18 10:01 | CONS ---
Consultation Date/Type/Reason Admit Date/Time 07/17/18 1500 Date/Time of Note DATE: 07/18/18 TIME: 10:00 Hx of Present Illness Thanks Dr. Andrews Full note dictated 1. esrd- scheduled for hd on ttsa schedule. missed hd yesterday. on hd today. Past Medical History Medical History: hypertension, hypothyroid, renal disease, other (BPH, ) Home Meds Reported Medications Bisacodyl (Dulcolax) 10 Mg Supp.rect, 10 MG RC DAILY PRN for CONSTIPATION, SUPP.RECT 07/17/18 Magnesium Citrate* (Magnesium Citrate*) 296 Ml Solution, 296 ML PO ONCE PRN for CONSTIPATION, #1 BOTTLE 07/17/18 Guaifenesin-Dextromethorphan* (Robitussin* DM) 100MG/10MG/5ML Syrup, 10 ML PO Q6H PRN for COUGH, ML 07/17/18 Morphine Sulfate* (Ms Contin*) 15 Mg Tablet.sa, 15 MG PO Q12 PRN for PAIN, TAB 07/17/18 Mirtazapine* (Remeron*) 15 Mg Tablet, 15 MG PO HS, TAB 07/17/18 Finasteride* (Finasteride*) 5 Mg Tablet, 5 MG PO DAILY, TAB 07/17/18 Cranberry Extract (Cranberry) 425 Mg Capsule, 425 MG PO DAILY, CAP 07/17/18 Insulin Aspart* (Novolog Insulin Pen*) 100 Unit/Ml Soln, 0 SC .SLIDING SCALE AC, EA AC MEALS 07/17/18 Calcium Carbonate ([place]-500) 500 Mg Tablet, 500 MG PO DAILY, TAB 07/17/18 Clonidine Hcl* (Clonidine Hcl*) 0.1 Mg Tab, 0.1 MG PO PRN PRN for ELEVATED BLOOD PRESSURE, TAB 07/17/18 Acetaminophen* (Acetaminophen*) 650 Mg Tablet, 650 MG PO Q4 PRN for PAIN AND OR ELEVATED TEMP, #30 TAB 07/17/18 Multivit/Ca Carb/B Cmplx/Fa* (Chely-Maribel*) 1 Tab Tab, 1 TAB PO DAILY, TAB 06/08/18 Ranitidine Hcl* (Ranitidine Hcl*) 150 Mg Tablet, 150 MG PO Q12, #60 TAB 06/08/18 Diphenhydramine Hcl* (Benadryl*) 50 Mg Cap, 50 MG PO Q6 PRN for ITCHING, CAP 04/15/18 Nitroglycerin* (Nitrostat*) 0.4 Mg Tab.subl, 0.4 MG SL Q5MIN PRN for CHEST PAIN, BOTTLE 04/15/18 Ondansetron Hcl* (Zofran*) 4 Mg Tablet, 4 MG PO Q6H PRN for NAUSEA AND OR VOMITING, TAB 04/15/18 Docusate Sodium* (Colace*) 100 Mg Capsule, 200 MG PO QHS, #60 CAP 04/15/18 Nifedipine* (Nifedipine ER*) 90 Mg Tablet.sa, 90 MG PO BID, TAB.SA 04/15/18 Pantoprazole* (Protonix*) 40 Mg Tablet.dr, 40 MG PO DAILY, TAB 04/15/18 Sevelamer Hcl* (Renagel*) 800 Mg Tablet, 1600 MG PO WITH MEALS, TAB 04/15/18 Hydralazine Hcl* (Hydralazine Hcl*) 50 Mg Tab, 50 MG PO BID PRN for ELEVATED BLOOD PRESSURE, #60 TAB HOLD FOR SBP<110 OR HR <60 04/15/18 Levothyroxine Sodium* (Levoxyl*) 75 Mcg Tablet, 75 MCG PO BEFORE BREAKFAST, #30 TAB 04/15/18 Tamsulosin Hcl* (Tamsulosin Hcl*) 0.4 Mg Cap.er.24h, 0.4 MG PO HS, CAP 04/15/18 Hydrocodone/Acetaminophen ([place] 5-325 Tablet) 1 Each Tablet, 2 EACH PO Q6 PRN for SEVERE PAIN LEVEL 7-10, TAB 04/15/18 Atropine Sulfate/0.9 %Sod Chlr (Atropine 0.01%-Ns Eye Drops) 10 Ml Drops, 1 DRP RIGHT EYE BID, BOTTLE 04/15/18 Levalbuterol* (Xopenex* HFA) 15 Gm Inha, 2 PUFFS INH Q4H PRN for WHEEZING AND SOB, INHALER 04/15/18 Discontinued Reported Medications Multivit/Ca Carb/B Cmplx/Fa* (Chely-Maribel*) 1 Tab Tab, 1 TAB PO DAILY, TAB 07/17/18 Mirtazapine* (Mirtazapine*) 7.5 Mg Tablet, 7.5 MG PO HS, TAB 06/08/18 Calcium Carbonate* (Calcium Carbonate*) 600 MG Ca Tab, 600 MG PO DAILY, TAB 06/08/18 Discontinued Scripts Acetaminophen* (Tylenol*) 325 Mg Tablet, 650 MG PO Q6H PRN for .PAIN 1-3 OR TEMP, #30 TAB Prov:JUDSON TREVINO 07/11/18 Hydrocodone Bit-Acetaminophen (Hydrocodone Bit-APAP) 5-325MG Tablet, 1 TAB PO Q6H PRN for .PAIN 4-6, #30 TAB Prov:JUDSON TREVINO 07/11/18 Medications Current Medications Acetaminophen (Tylenol Tab) 650 mg Q4H PRN PO MILD PAIN(1-3)OR ELEVATED TEMP; Start 07/17/18 at 15:00 Calcium Carbonate (Oyster Shell Calcium) 1.25 gm DAILY PO Last administered on 07/18/18at 08:46; Admin Dose 1.25 GM; Start 07/18/18 at 09:00 Clonidine (Catapres) 0.1 mg Q6H PRN PO SBP > 170; Start 07/17/18 at 15:00 Diphenhydramine HCl (Benadryl) 50 mg Q6H PRN PO ITCHING; Start 07/17/18 at 15:00 Docusate Sodium (Colace) 200 mg QHS PO ; Start 07/17/18 at 21:00 Finasteride (Proscar) 5 mg DAILY PO Last administered on 07/18/18at 08:46; Admin Dose 5 MG; Start 07/18/18 at 09:00 Guaifenesin/ Dextromethorphan (Robitussin Dm Liquid Cup) 10 ml Q6H PRN PO COUGH; Start 07/17/18 at 15:00 Acetaminophen/ Hydrocodone Bitart ([place] (5/325)) 1 tab Q6H PRN PO PAIN LEVEL 4-6; Start 07/17/18 at 15:00 Levothyroxine Sodium (Synthroid) 75 mcg BEFORE BREAKFAST PO Last administered on 07/18/18at 06:16; Admin Dose 75 MCG; Start 07/18/18 at 07:00 Mirtazapine (Remeron) 15 mg HS PO Last administered on 07/17/18at 21:13; Admin Dose 15 MG; Start 07/17/18 at 21:00 Morphine Sulfate (Ms Contin (Er)) 15 mg Q12H PRN PO PAIN LEVEL 7-10; Start 07/17/18 at 15:00 Multivit/Ca Carb/ B Cmplx/FA/Prenat (Che[place]-Maribel) 1 tab DAILY PO Last administered on 07/18/18 08:46; Admin Dose 1 TAB; Start 07/18/18 at 09:00 Nifedipine (Procardia Xl) 90 mg BID PO Last administered on 07/17/18at 21:12; Admin Dose 90 MG; Start 07/17/18 at 21:00 Pantoprazole (Protonix Tab) 40 mg DAILY@0600 PO Last administered on 07/18/18 06:16; Admin Dose 40 MG; Start 07/18/18 at 06:00 Sevelamer Carbonate (Renvela) 1,600 mg WITH MEALS PO Last administered on 07/18/18 08:46; Admin Dose 1,600 MG; Start 07/17/18 at 17:55 Tamsulosin HCl (Flomax) 0.4 mg HS PO Last administered on 07/17/18at 21:12; Admin Dose 0.4 MG; Start 07/17/18 at 21:00 Hydralazine HCl (Apresoline) 10 mg Q4H PRN IV SBp >170; Start 07/17/18 at 15:00 Levalbuterol (Xopenex Neb) 0.63 mg Q4H RESP THERAPY PRN HHN SHORTNESS OF BREATH; Start 07/17/18 at 15:00 IV Flush (NS 3 ml) 3 ml PER PROTOCOL IV ; Start 07/17/18 at 15:00 Ondansetron HCl (Zofran Inj) 4 mg Q6H PRN IV NAUSEA/VOMITING; Start 07/17/18 at 15:00 Acetaminophen (Tylenol Tab) 650 mg Q6H PRN PO .PAIN 1-3 OR TEMP; Start 07/17/18 at 15:00 Heparin Sodium (Porcine) (Heparin (5000 Units/1ml)) 5,000 unit Q12 SC Last administered on 07/18/18at 08:52; Admin Dose 5,000 UNIT; Start 07/17/18 at 21:00 Miscellaneous Information (* Miscellaneous Pharmacy Order) HYPOGLYCEMIA PROTOCOL w... ONCE XX ; Start 07/17/18 at 15:00 Morphine Sulfate (morphine) 1 mg Q6H PRN IV SEVERE PAIN LEVEL 7-10 Last administered on 07/18/18at 09:27; Admin Dose 1 MG; Start 07/17/18 at 16:00 Miscellaneous Information 1 ea NOTE XX ; Start 07/17/18 at 16:00 Glucose (Glutose) 15 gm Q15M PRN PO DECREASED GLUCOSE; Start 07/17/18 at 16:00 Glucose (Glutose) 22.5 gm Q15M PRN PO DECREASED GLUCOSE; Start 07/17/18 at 16:00 Dextrose (D50w Syringe) 25 ml Q15M PRN IV DECREASED GLUCOSE; Start 07/17/18 at 16:00 Dextrose (D50w Syringe) 50 ml Q15M PRN IV DECREASED GLUCOSE Last administered on 07/17/18at 23:43; Admin Dose 50 ML; Start 07/17/18 at 16:00 Glucagon (Glucagen) 1 mg Q15M PRN IM DECREASED GLUCOSE; Start 07/17/18 at 16:00 Glucose (Glutose) 15 gm Q15M PRN BUCCAL DECREASED GLUCOSE; Start 07/17/18 at 16:00 Cefepime HCl 50 ml @ 100 mls/hr Q24H IV Last administered on 07/17/18at 18:24; Admin Dose 100 MLS/HR; Start 07/17/18 at 16:30 Allergies: Coded Allergies: No Known Allergies (Unverified Allergy, Unknown, 06/24/18) Past Surgical History Past Surgical Hx: other (VATS, laminectomy) Social History Alcohol Use: none Smoking Status: Never smoker Drug Use: none Exam/Review of Systems Exam Vitals Vital Signs Date Temp Pulse Resp B/P (MAP) Pulse Ox O2 O2 Flow FiO2 Time Delivery Rate 07/18/18 60 08:16 07/18/18 97.5 16 114/64 98 Room Air 07:16 (81) Intake and Output 07/17/18 07/17/18 07/18/18 1515:00 23:00 07:00 IntakeIntake Total 50 ml 300 ml BalanceBalance 50 ml 300 ml Results Result Diagram: 07/18/18 0545 07/18/18 0546 Results 24hrs Laboratory Tests Test 07/17/18 13:22 07/17/18 13:23 07/17/18 17:08 07/17/18 23:37 White Blood Count 5.6 Red Blood Count 3.18 L Hemoglobin 9.4 L Hematocrit 29.1 L Mean Corpuscular 91.5 Volume Mean Corpuscular 29.6 Hemoglobin Mean Corpuscular 32.3 Hemoglobin Concent Red Cell 14.3 Distribution Width Platelet Count 167 Mean Platelet Volume 9.5 Immature 0.200 Granulocytes % Neutrophils % 79.0 H Lymphocytes % 12.9 L Monocytes % 6.6 Eosinophils % 0.9 Basophils % 0.4 Nucleated Red Blood 0.0 Cells % Immature 0.010 Granulocytes # Neutrophils # 4.4 Lymphocytes # 0.7 L Monocytes # 0.4 Eosinophils # 0.1 Basophils # 0.0 Nucleated Red Blood 0.0 Cells # Prothrombin Time 17.2 #H Prothrombin Time 1.3 Ratio INR International 1.39 Normalized Ratio Activated 39.2 H Partial Thromboplast Time Sodium Level 133 L Potassium Level 3.8 Chloride Level 99 Carbon Dioxide Level 29 Anion Gap 5 Blood Urea Nitrogen 39 H Creatinine 3.49 H Est Glomerular 18 L Filtrat Rate mL/min Glucose Level 61 L Calcium Level 7.5 L Total Bilirubin 0.1 L Direct Bilirubin 0.00 Indirect Bilirubin 0.1 Aspartate Amino 17 Transf (AST/SGOT) Alanine 12 L Aminotransferase (AL T/SGPT) Alkaline Phosphatase 100 Troponin I < 0.012 Total Protein 6.2 Albumin 2.3 L Globulin 3.90 H Albumin/Globulin 0.58 Ratio POC Venous Lactate 1.0 Lactic Acid Level 0.6 Bedside Glucose 42 *L Test 07/17/18 23:38 07/18/18 00:06 07/18/18 00:39 07/18/18 05:45 Bedside Glucose 41 *L 131 126 White Blood Count 4.8 Red Blood Count 3.01 L Hemoglobin 9.0 L Hematocrit 26.7 L Mean Corpuscular 88.7 Volume Mean Corpuscular 29.9 Hemoglobin Mean Corpuscular 33.7 Hemoglobin Concent Red Cell 14.0 Distribution Width Platelet Count 144 Mean Platelet Volume 9.5 Immature 0.400 Granulocytes % Neutrophils % 80.1 H Lymphocytes % 12.8 L Monocytes % 5.9 Eosinophils % 0.6 Basophils % 0.2 Nucleated Red Blood 0.0 Cells % Immature 0.020 Granulocytes # Neutrophils # 3.8 Lymphocytes # 0.6 L Monocytes # 0.3 Eosinophils # 0.0 Basophils # 0.0 Nucleated Red Blood 0.0 Cells # Test 07/18/18 05:46 Sodium Level 135 Potassium Level 3.9 Chloride Level 102 Carbon Dioxide Level 27 Anion Gap 6 Blood Urea Nitrogen 44 H Creatinine 3.83 H Est Glomerular 16 L Filtrat Rate mL/min Glucose Level 68 L Calcium Level 7.4 L Magnesium Level 2.3 Medications Medication Current Medications Acetaminophen (Tylenol Tab) 650 mg Q4H PRN PO MILD PAIN(1-3)OR ELEVATED TEMP; Start 07/17/18 at 15:00 Calcium Carbonate (Oyster Shell Calcium) 1.25 gm DAILY PO Last administered on 07/18/18 08:46; Admin Dose 1.25 GM; Start 07/18/18 at 09:00 Clonidine (Catapres) 0.1 mg Q6H PRN PO SBP > 170; Start 07/17/18 at 15:00 Diphenhydramine HCl (Benadryl) 50 mg Q6H PRN PO ITCHING; Start 07/17/18 at 15:00 Docusate Sodium (Colace) 200 mg QHS PO ; Start 07/17/18 at 21:00 Finasteride (Proscar) 5 mg DAILY PO Last administered on 07/18/18 08:46; Admin Dose 5 MG; Start 07/18/18 at 09:00 Guaifenesin/ Dextromethorphan (Robitussin Dm Liquid Cup) 10 ml Q6H PRN PO COUGH; Start 07/17/18 at 15:00 Acetaminophen/ Hydrocodone Bitart ([place] (5/325)) 1 tab Q6H PRN PO PAIN LEVEL 4-6; Start 07/17/18 at 15:00 Levothyroxine Sodium (Synthroid) 75 mcg BEFORE BREAKFAST PO Last administered on 07/18/18at 06:16; Admin Dose 75 MCG; Start 07/18/18 at 07:00 Mirtazapine (Remeron) 15 mg HS PO Last administered on 07/17/18at 21:13; Admin Dose 15 MG; Start 07/17/18 at 21:00 Morphine Sulfate (Ms Contin (Er)) 15 mg Q12H PRN PO PAIN LEVEL 7-10; Start 07/17/18 at 15:00 Multivit/Ca Carb/ B Cmplx/FA/Prenat (Chely-Maribel) 1 tab DAILY PO Last administered on 07/18/18 08:46; Admin Dose 1 TAB; Start 07/18/18 at 09:00 Nifedipine (Procardia Xl) 90 mg BID PO Last administered on 07/17/18at 21:12; Admin Dose 90 MG; Start 07/17/18 at 21:00 Pantoprazole (Protonix Tab) 40 mg DAILY@0600 PO Last administered on 07/18/18 06:16; Admin Dose 40 MG; Start 07/18/18 at 06:00 Sevelamer Carbonate (Renvela) 1,600 mg WITH MEALS PO Last administered on 07/18/18at 08:46; Admin Dose 1,600 MG; Start 07/17/18 at 17:55 Tamsulosin HCl (Flomax) 0.4 mg HS PO Last administered on 07/17/18at 21:12; Admin Dose 0.4 MG; Start 07/17/18 at 21:00 Hydralazine HCl (Apresoline) 10 mg Q4H PRN IV SBp >170; Start 07/17/18 at 15:00 Levalbuterol (Xopenex Neb) 0.63 mg Q4H RESP THERAPY PRN HHN SHORTNESS OF BREATH; Start 07/17/18 at 15:00 IV Flush (NS 3 ml) 3 ml PER PROTOCOL IV ; Start 07/17/18 at 15:00 Ondansetron HCl (Zofran Inj) 4 mg Q6H PRN IV NAUSEA/VOMITING; Start 07/17/18 at 15:00 Acetaminophen (Tylenol Tab) 650 mg Q6H PRN PO .PAIN 1-3 OR TEMP; Start 07/17/18 at 15:00 Heparin Sodium (Porcine) (Heparin (5000 Units/1ml)) 5,000 unit Q12 SC Last administered on 07/18/18at 08:52; Admin Dose 5,000 UNIT; Start 07/17/18 at 21:00 Miscellaneous Information (* Miscellaneous Pharmacy Order) HYPOGLYCEMIA PROTOCOL w... ONCE XX ; Start 07/17/18 at 15:00 Morphine Sulfate (morphine) 1 mg Q6H PRN IV SEVERE PAIN LEVEL 7-10 Last administered on 07/18/18at 09:27; Admin Dose 1 MG; Start 07/17/18 at 16:00 Miscellaneous Information 1 ea NOTE XX ; Start 07/17/18 at 16:00 Glucose (Glutose) 15 gm Q15M PRN PO DECREASED GLUCOSE; Start 07/17/18 at 16:00 Glucose (Glutose) 22.5 gm Q15M PRN PO DECREASED GLUCOSE; Start 07/17/18 at 16:00 Dextrose (D50w Syringe) 25 ml Q15M PRN IV DECREASED GLUCOSE; Start 07/17/18 at 16:00 Dextrose (D50w Syringe) 50 ml Q15M PRN IV DECREASED GLUCOSE Last administered on 07/17/18at 23:43; Admin Dose 50 ML; Start 07/17/18 at 16:00 Glucagon (Glucagen) 1 mg Q15M PRN IM DECREASED GLUCOSE; Start 07/17/18 at 16:00 Glucose (Glutose) 15 gm Q15M PRN BUCCAL DECREASED GLUCOSE; Start 07/17/18 at 16:00 Cefepime HCl 50 ml @ 100 mls/hr Q24H IV Last administered on 07/17/18at 18:24; Admin Dose 100 MLS/HR; Start 07/17/18 at 16:30 SUSHIL ELENA MD Jul 18, 2018 10:01
--- NOTE | 2018-07-18 15:54 | PN ---
Date/Time of Note Date/Time of Note DATE: 07/18/18 TIME: 15:48 Assessment/Plan VTE Prophylaxis Risk score (from Ns)>0 risk: 3 SCD applied (from Nsg): Yes Pharmacological prophylaxis: heparin Lines/Catheters IV Catheter Type (from Nrsg): [place] Lock Urinary Cath still in place: No Assessment/Plan Hospital Course 58 yo male with ESRD who was recently admitted for fluid overload and pneumonia. Underwent thoracentesis causing hemothorax and required VATS. Now returned with SOB and CP - I do no think he has a pneumonia as no fever, WBC, sputum, etc. Will dc antibiotics and observe - slightly fluid overloaded ESRD: - HD per renal - Alkali and phosphate binders Hypertension: - Continue nifedipine DC plan: Seems ready for discharge. PT/OT. SNF placement Result Diagram: 07/18/18 0545 07/18/18 0546 Results 24hrs Laboratory Tests Test 07/17/18 17:08 07/17/18 23:37 07/17/18 23:38 07/18/18 00:06 Lactic Acid Level 0.6 Bedside Glucose 42 *L 41 *L 131 Test 07/18/18 00:39 07/18/18 05:45 07/18/18 05:46 Bedside Glucose 126 White Blood Count 4.8 Red Blood Count 3.01 L Hemoglobin 9.0 L Hematocrit 26.7 L Mean Corpuscular 88.7 Volume Mean Corpuscular 29.9 Hemoglobin Mean Corpuscular 33.7 Hemoglobin Concent Red Cell 14.0 Distribution Width Platelet Count 144 Mean Platelet Volume 9.5 Immature 0.400 Granulocytes % Neutrophils % 80.1 H Lymphocytes % 12.8 L Monocytes % 5.9 Eosinophils % 0.6 Basophils % 0.2 Nucleated Red Blood 0.0 Cells % Immature 0.020 Granulocytes # Neutrophils # 3.8 Lymphocytes # 0.6 L Monocytes # 0.3 Eosinophils # 0.0 Basophils # 0.0 Nucleated Red Blood 0.0 Cells # Sodium Level 135 Potassium Level 3.9 Chloride Level 102 Carbon Dioxide Level 27 Anion Gap 6 Blood Urea Nitrogen 44 H Creatinine 3.83 H Est Glomerular 16 L Filtrat Rate mL/min Glucose Level 68 L Calcium Level 7.4 L Magnesium Level 2.3 Subjective 24 Hr Interval Summary Free Text/Dictation resting comfortably Has a cough Chest pain with cough Denies sputum No fevers or systemic symptoms Exam/Review of Systems Exam Vitals Vital Signs Date Temp Pulse Resp B/P (MAP) Pulse Ox O2 O2 Flow FiO2 Time Delivery Rate 07/18/18 98.7 63 18 139/73 98 Room Air 15:25 (95) Intake and Output 07/17/18 07/17/18 07/18/18 1515:00 23:00 07:00 IntakeIntake Total 50 ml 300 ml BalanceBalance 50 ml 300 ml Constitutional: alert, oriented, well developed Psych: no complaints, nl mood/affect Head: normocephalic, atraumatic Eyes: nl conjunctiva, EOMI, nl lids, nl sclera, PERRL ENMT: nl external ears & nose, nl lips & teeth, nl nasal mucosa & septum Neck: supple, non-tender Respiratory: clear to auscultation, normal air movement Cardiovascular: regular rate and rhythm, nl pulses Gastrointestinal: soft, nl liver, spleen, non-tender Musculoskeletal: nl extremities to inspection, nl gait and stance Extremities: normal pulses Neurological: THERAPEUTIC RECREATION LEADER II-XII intact, nl mental status, nl speech, nl strength Skin: nl turgor; No rash or lesions Lymph: nl lymph nodes Results Results 24hrs Laboratory Tests Test 07/17/18 17:08 07/17/18 23:37 07/17/18 23:38 07/18/18 00:06 Lactic Acid Level 0.6 Bedside Glucose 42 *L 41 *L 131 Test 07/18/18 00:39 07/18/18 05:45 07/18/18 05:46 Bedside Glucose 126 White Blood Count 4.8 Red Blood Count 3.01 L Hemoglobin 9.0 L Hematocrit 26.7 L Mean Corpuscular 88.7 Volume Mean Corpuscular 29.9 Hemoglobin Mean Corpuscular 33.7 Hemoglobin Concent Red Cell 14.0 Distribution Width Platelet Count 144 Mean Platelet Volume 9.5 Immature 0.400 Granulocytes % Neutrophils % 80.1 H Lymphocytes % 12.8 L Monocytes % 5.9 Eosinophils % 0.6 Basophils % 0.2 Nucleated Red Blood 0.0 Cells % Immature 0.020 Granulocytes # Neutrophils # 3.8 Lymphocytes # 0.6 L Monocytes # 0.3 Eosinophils # 0.0 Basophils # 0.0 Nucleated Red Blood 0.0 Cells # Sodium Level 135 Potassium Level 3.9 Chloride Level 102 Carbon Dioxide Level 27 Anion Gap 6 Blood Urea Nitrogen 44 H Creatinine 3.83 H Est Glomerular 16 L Filtrat Rate mL/min Glucose Level 68 L Calcium Level 7.4 L Magnesium Level 2.3 Medications Medication Current Medications Acetaminophen (Tylenol Tab) 650 mg Q4H PRN PO MILD PAIN(1-3)OR ELEVATED TEMP; Start 07/17/18 at 15:00 Calcium Carbonate (Oyster Shell Calcium) 1.25 gm DAILY PO Last administered on 07/18/18at 08:46; Admin Dose 1.25 GM; Start 07/18/18 at 09:00 Clonidine (Catapres) 0.1 mg Q6H PRN PO SBP > 170; Start 07/17/18 at 15:00 Diphenhydramine HCl (Benadryl) 50 mg Q6H PRN PO ITCHING; Start 07/17/18 at 15:00 Docusate Sodium (Colace) 200 mg QHS PO ; Start 07/17/18 at 21:00 Finasteride (Proscar) 5 mg DAILY PO Last administered on 07/18/18at 08:46; Admin Dose 5 MG; Start 07/18/18 at 09:00 Guaifenesin/ Dextromethorphan (Robitussin Dm Liquid Cup) 10 ml Q6H PRN PO COUGH; Start 07/17/18 at 15:00 Acetaminophen/ Hydrocodone Bitart ([place] (5/325)) 1 tab Q6H PRN PO PAIN LEVEL 4-6; Start 07/17/18 at 15:00 Levothyroxine Sodium (Synthroid) 75 mcg BEFORE BREAKFAST PO Last administered on 07/18/18at 06:16; Admin Dose 75 MCG; Start 07/18/18 at 07:00 Mirtazapine (Remeron) 15 mg HS PO Last administered on 07/17/18at 21:13; Admin Dose 15 MG; Start 07/17/18 at 21:00 Morphine Sulfate (Ms Contin (Er)) 15 mg Q12H PRN PO PAIN LEVEL 7-10; Start 07/17/18 at 15:00 Multivit/Ca Carb/ B Cmplx/FA/Prenat (Chely-Maribel) 1 tab DAILY PO Last administered on 07/18/18at 08:46; Admin Dose 1 TAB; Start 07/18/18 at 09:00 Nifedipine (Procardia Xl) 90 mg BID PO Last administered on 07/17/18at 21:12; Admin Dose 90 MG; Start 07/17/18 at 21:00 Pantoprazole (Protonix Tab) 40 mg DAILY@0600 PO Last administered on 07/18/18at 06:16; Admin Dose 40 MG; Start 07/18/18 at 06:00 Sevelamer Carbonate (Renvela) 1,600 mg WITH MEALS PO Last administered on 07/18/18at 13:06; Admin Dose 1,600 MG; Start 07/17/18 at 17:55 Tamsulosin HCl (Flomax) 0.4 mg HS PO Last administered on 07/17/18at 21:12; Admin Dose 0.4 MG; Start 07/17/18 at 21:00 Hydralazine HCl (Apresoline) 10 mg Q4H PRN IV SBp >170; Start 07/17/18 at 15:00 Levalbuterol (Xopenex Neb) 0.63 mg Q4H RESP THERAPY PRN HHN SHORTNESS OF BREATH; Start 07/17/18 at 15:00 IV Flush (NS 3 ml) 3 ml PER PROTOCOL IV ; Start 07/17/18 at 15:00 Ondansetron HCl (Zofran Inj) 4 mg Q6H PRN IV NAUSEA/VOMITING; Start 07/17/18 at 15:00 Acetaminophen (Tylenol Tab) 650 mg Q6H PRN PO .PAIN 1-3 OR TEMP; Start 07/17/18 at 15:00 Heparin Sodium (Porcine) (Heparin (5000 Units/1ml)) 5,000 unit Q12 SC Last administered on 07/18/18at 08:52; Admin Dose 5,000 UNIT; Start 07/17/18 at 21:00 Miscellaneous Information (* Miscellaneous Pharmacy Order) HYPOGLYCEMIA PROTOCOL w... ONCE XX ; Start 07/17/18 at 15:00 Morphine Sulfate (morphine) 1 mg Q6H PRN IV SEVERE PAIN LEVEL 7-10 Last administered on 07/18/18at 15:30; Admin Dose 1 MG; Start 07/17/18 at 16:00 Miscellaneous Information 1 ea NOTE XX ; Start 07/17/18 at 16:00 Glucose (Glutose) 15 gm Q15M PRN PO DECREASED GLUCOSE; Start 07/17/18 at 16:00 Glucose (Glutose) 22.5 gm Q15M PRN PO DECREASED GLUCOSE; Start 07/17/18 at 16:00 Dextrose (D50w Syringe) 25 ml Q15M PRN IV DECREASED GLUCOSE; Start 07/17/18 at 16:00 Dextrose (D50w Syringe) 50 ml Q15M PRN IV DECREASED GLUCOSE Last administered on 07/17/18at 23:43; Admin Dose 50 ML; Start 07/17/18 at 16:00 Glucagon (Glucagen) 1 mg Q15M PRN IM DECREASED GLUCOSE; Start 07/17/18 at 16:00 Glucose (Glutose) 15 gm Q15M PRN BUCCAL DECREASED GLUCOSE; Start 07/17/18 at 16:00 Cefepime HCl 50 ml @ 100 mls/hr Q24H IV Last administered on 07/17/18at 18:24; Admin Dose 100 MLS/HR; Start 07/17/18 at 16:30 JOHN FARRAR MD Jul 18, 2018 15:54
[2018-07-18] MEDS ORDERED: LOPERAMIDE 2 MG CAP PO PRN (18:00)
[2018-07-18] MEDS: DOCUSATE SODIUM 100 MG CAP PO SCH (21:00)
[2018-07-18] MEDS: MIRTAZAPINE 15 MG TAB PO SCH (21:00)
[2018-07-18] MEDS ORDERED: morphine 2 MG INJ IV STA (22:41)
[2018-07-19] VITALS (10 sets, daily range): BP systolic 117–156; BP diastolic 70–87; PULSE 21–76; RESP 18
[2018-07-19] MEDS: PANTOPRAZOLE (EC) 40 MG TAB PO SCH (05:53)
[2018-07-19] MEDS: LEVOTHYROXINE 75 MCG TAB PO SCH (05:53)
[2018-07-19] MEDS: MULTIVIT/CA CARB/B CMPLX/FA TAB PO SCH (09:03)
[2018-07-19] MEDS: SEVELAMER CARBONATE 800 MG TABLET PO SCH ×4 (09:03→17:53)
[2018-07-19] MEDS: CALCIUM CARBONATE 1.25 GM TAB PO SCH (09:04)
[2018-07-19] MEDS: NIFEdipine (XL) 90 MG TAB PO SCH (09:04)
[2018-07-19] MEDS: HEPARIN 5,000 UNIT/1 ML VIAL SC SCH (09:05)
--- NOTE | 2018-07-19 15:13 | CONS ---
DATE OF ADMISSION: 07/17/2018 DATE OF CONSULTATION: HISTORY OF PRESENT ILLNESS: The patient is a 58-year-old with a past medical history of end-stage re nal disease on hemodialysis, hypertension, hypothyroidism, BPH, pleural effusion, status post VATS pr esented from dialysis after noticing generalized weakness and fatigue associated with productive sput um for the past 2 days. The patient is also complaining of chest pain which he describes as pleuriti c. Course of the workup noted to have pneumonia, started on antibiotics. The patient is on Thursday, , Thursday dialysis schedule, missed his last dialysis as he was feeling too sick. There raymond s been no recent fevers, chills, nausea, vomiting, chest pain, shortness of breath. PAST MEDICAL HISTORY: Significant for the above. MEDICATIONS: From home include: 1. Tylenol. 2. Oyster shell calcium. 3. Clonidine. 4. Colace. 5. Proscar. 6. Robitussin DM. 7. [place]. 8. Synthroid. 9. Mirtazapine. 10. Morphine sulfate ER. 11. Multivitamin. 12. Nifedipine. 13. Protonix. 14. Renvela. 15. Flomax. 16. Hydralazine. 17. Xopenex. ALLERGIES: PATIENT HAS NO KNOWN ALLERGIES. SOCIAL HISTORY: Does not smoke, drink or use drugs. FAMILY HISTORY: No history of kidney disease. REVIEW OF SYSTEMS: A 14-point review of systems attempted and negative unless stated on exam. PHYSICAL EXAMINATION: VITAL SIGNS: We see temperature 97.5, blood pressure 110/65. HEENT: Normocephalic, atraumatic. Pupils are equal and reactive to light. Pharynx has moist mucous membranes. NECK: Supple. HEART: Regular rate and rhythm. LUNGS: Clear to auscultation. ABDOMEN: Soft, nontender, nondistended. Bowel sounds present. LABORATORY EVALUATION: White count 4.8, hemoglobin 9, hematocrit 27. Sodium is 135, potassium 3.9, BUN 44, creatinine 3.8. UA is reviewed on microscopy. Chest x-ray is reviewed with the radiologist. IMPRESSION: 1. End-stage renal disease, on dialysis. Dialysis was arranged in advance. Currently on dialysis. Assess daily for dialysis needs. 2 . Healthcare-associated pneumonia. Started on broad-spectrum antibiotics. Continue binders. 3. Hypertension. Continue regular medications. Monitor serially. 4. Anemia, anemia of chronic disease. Epogen with dialysis. 5. Hypothyroidism. Continue Synthroid. Same dose. 6. Benign prostatic hypertrophy. Continue Flomax. Dictated By: SUSHIL ELENA MD DF/NTS Conf#: [id number] DID#: [id number] CC: JOHN FARRAR MD;*EndCC*
--- NOTE | 2018-07-19 17:57 | DS ---
Date/Time of Note Date/Time of Note DATE: 07/19/18 TIME: 17:47 Discharge Summary Admission/Discharge Info Admit Date/Time Jul 17, 2018 at 14:03 Discharge Date/Time July 19, 2018 Discharge Diagnosis Chest pain secondary to recent chest tube and VATS -Pain control -Patient does appear to be exhibiting some pain seeking behavior ESRD: - HD per renal - Alkali and phosphate binders Hypertension: - Continue nifedipine Debility reportedly secondary to history of back surgery -[facility] Patient Condition: Good Hospital Course Patient is a 58 yo male with debility secondary to back surgery, ESRD who was recently hospitalized for fluid overload underwent thoracentesis with subsequent hemothorax status post chest tube and VATS. [facility] in a [facility] facility reportedly was admitted for chest pain shortness of breath. Patient had no clinical evidence of pneumonia did not require supplemental O2, patient was mostly complaining of chest pain which was likely secondary to recent chest tube and recent VATS. Patient was exhibiting pain seeking behavior and understood that he would not be receiving IV pain meds at the nursing facility. Patient was stable for DC, on the day of discharge patient's vitals, labs and physical exam are stable. Home Meds Reported Medications Bisacodyl (Dulcolax) 10 Mg Supp.rect, 10 MG RC DAILY PRN for CONSTIPATION, SUPP.RECT 07/17/18 Magnesium Citrate* (Magnesium Citrate*) 296 Ml Solution, 296 ML PO ONCE PRN for CONSTIPATION, #1 BOTTLE 07/17/18 Guaifenesin-Dextromethorphan* (Robitussin* DM) 100MG/10MG/5ML Syrup, 10 ML PO Q6H PRN for COUGH, ML 07/17/18 Morphine Sulfate* (Ms Contin*) 15 Mg Tablet.sa, 15 MG PO Q12 PRN for PAIN, TAB 07/17/18 Mirtazapine* (Remeron*) 15 Mg Tablet, 15 MG PO HS, TAB 07/17/18 Finasteride* (Finasteride*) 5 Mg Tablet, 5 MG PO DAILY, TAB 07/17/18 Cranberry Extract (Cranberry) 425 Mg Capsule, 425 MG PO DAILY, CAP 07/17/18 Insulin Aspart* (Novolog Insulin Pen*) 100 Unit/Ml Soln, 0 SC .SLIDING SCALE AC, EA AC MEALS 07/17/18 Calcium Carbonate ([place]-500) 500 Mg Tablet, 500 MG PO DAILY, TAB 07/17/18 Clonidine Hcl* (Clonidine Hcl*) 0.1 Mg Tab, 0.1 MG PO PRN PRN for ELEVATED BLOOD PRESSURE, TAB 07/17/18 Acetaminophen* (Acetaminophen*) 650 Mg Tablet, 650 MG PO Q4 PRN for PAIN AND OR ELEVATED TEMP, #30 TAB 07/17/18 Multivit/Ca Carb/B Cmplx/Fa* (Chely-Maribel*) 1 Tab Tab, 1 TAB PO DAILY, TAB 06/08/18 Ranitidine Hcl* (Ranitidine Hcl*) 150 Mg Tablet, 150 MG PO Q12, #60 TAB 06/08/18 Diphenhydramine Hcl* (Benadryl*) 50 Mg Cap, 50 MG PO Q6 PRN for ITCHING, CAP 04/15/18 Nitroglycerin* (Nitrostat*) 0.4 Mg Tab.subl, 0.4 MG SL Q5MIN PRN for CHEST PAIN, BOTTLE 04/15/18 Ondansetron Hcl* (Zofran*) 4 Mg Tablet, 4 MG PO Q6H PRN for NAUSEA AND OR VOMITING, TAB 04/15/18 Docusate Sodium* (Colace*) 100 Mg Capsule, 200 MG PO QHS, #60 CAP 04/15/18 Nifedipine* (Nifedipine ER*) 90 Mg Tablet.sa, 90 MG PO BID, TAB.SA 04/15/18 Pantoprazole* (Protonix*) 40 Mg Tablet.dr, 40 MG PO DAILY, TAB 04/15/18 Sevelamer Hcl* (Renagel*) 800 Mg Tablet, 1600 MG PO WITH MEALS, TAB 04/15/18 Hydralazine Hcl* (Hydralazine Hcl*) 50 Mg Tab, 50 MG PO BID PRN for ELEVATED BLOOD PRESSURE, #60 TAB HOLD FOR SBP<110 OR HR <60 04/15/18 Levothyroxine Sodium* (Levoxyl*) 75 Mcg Tablet, 75 MCG PO BEFORE BREAKFAST, #30 TAB 04/15/18 Tamsulosin Hcl* (Tamsulosin Hcl*) 0.4 Mg Cap.er.24h, 0.4 MG PO HS, CAP 04/15/18 Hydrocodone/Acetaminophen ([place] 5-325 Tablet) 1 Each Tablet, 2 EACH PO Q6 PRN for SEVERE PAIN LEVEL 7-10, TAB 04/15/18 Atropine Sulfate/0.9 %Sod Chlr (Atropine 0.01%-Ns Eye Drops) 10 Ml Drops, 1 DRP RIGHT EYE BID, BOTTLE 04/15/18 Levalbuterol* (Xopenex* HFA) 15 Gm Inha, 2 PUFFS INH Q4H PRN for WHEEZING AND SOB, INHALER 04/15/18 Discontinued Reported Medications Multivit/Ca Carb/B Cmplx/Fa* (Chely-Maribel*) 1 Tab Tab, 1 TAB PO DAILY, TAB 07/17/18 Mirtazapine* (Mirtazapine*) 7.5 Mg Tablet, 7.5 MG PO HS, TAB 06/08/18 Calcium Carbonate* (Calcium Carbonate*) 600 MG Ca Tab, 600 MG PO DAILY, TAB 06/08/18 Discontinued Scripts Acetaminophen* (Tylenol*) 325 Mg Tablet, 650 MG PO Q6H PRN for .PAIN 1-3 OR TEMP, #30 TAB Prov:JUDSON TREVINO 07/11/18 Hydrocodone Bit-Acetaminophen (Hydrocodone Bit-APAP) 5-325MG Tablet, 1 TAB PO Q6H PRN for .PAIN 4-6, #30 TAB Prov:JUDSON TREVINO 07/11/18 Follow-up Plan Follow-up with physicians at the jail facility Primary Care Provider Barbara Julio MD Time spent on discharge: > 30 minutes JUDSON TREVINO Jul 19, 2018 17:57
--- NOTE | 2018-07-20 07:19 | PN ---
DATE: 07/19/2018 SUBJECTIVE: Patient stable, no events overnight. OBJECTIVE: VITAL SIGNS: Blood pressure is 138/79, respiration 18, pulse 72, temperature 97.7. HEENT: Head is normocephalic. NECK: Supple. HEART: Regular rate. LUNGS: Show diminished breath sounds at base. ABDOMEN: Soft, nontender to palpation without rebound or guarding. EXTREMITIES: Negative for clubbing, cyanosis, no edema. DERMATOLOGIC: No rashes. MUSCULOSKELETAL: No joint effusion. NEUROLOGIC: No change in exam. MEDICATIONS: Reviewed. LABORATORY DATA: Has been reviewed. ASSESSMENT AND PLAN: 1. End-stage renal disease. The patient had hemodialysis yesterday, tolerated well. Plan for dialy sis again tomorrow. 2. Anemia. Continue to monitor hemoglobin and hematocrit levels. Will give Epogen with hemodialysi s. 3. Mineral bone disorder, monitor calcium and phosphorus levels. 4. Hypertension. Continue current blood pressure regimen. 5. Volume overload. Continue ultrafiltration dialysis. 6. Hypothyroidism. Continue Synthroid. 7. Benign prostatic hypertrophy. 8. Encephalopathy. 9. Status post video-assisted thoracic surgery and decortication. Dictated By: NAE MENDOZA DO NR/NTS Conf#: [id number] DID#: [id number] CC: JOHN FARRAR MD;*EndCC*
--- NOTE | 2018-07-20 07:20 | PN ---
DATE: 07/19/2018 SUBJECTIVE: The patient is stable, no events overnight. OBJECTIVE: VITAL SIGNS: Blood pressure is 130/79, respiration 18, pulse 72, temperature 97.7. HEENT: Head is normocephalic. NECK: Supple. HEART: Regular rate. LUNGS: Show diminished breath sounds at base. ABDOMEN: Soft, nontender to palpation without rebound or guarding. EXTREMITIES: Negative for clubbing, cyanosis, DICTATION ENDS HERE Dictated By: NAE MENDOZA DO NR/NTS Conf#: [id number] DID#: [id number] CC: JOHN FARRAR MD;*EndCC*
== END 2018-07-19 20:04 | DRG 313 ==
LOC: E/R 13:03 → TEL 14:03
PROVIDERS: ADMIT Internal Medicine; ATTEND Internal Medicine
PROC: 5A1D70Z Performance of Urinary Filtration, Intermittent, Less than 6 Hours Per Day (ICD-10-PCS; principal; 2018-07-18)
DX: R07.9 Chest pain, unspecified (principal); N18.6 End stage renal disease; J90 Pleural effusion, not elsewhere classified; I12.0 Hypertensive chronic kidney disease with stage 5 chronic kidney disease or end stage renal disease; E16.2 Hypoglycemia, unspecified; Z99.2 Dependence on renal dialysis; D63.8 Anemia in other chronic diseases classified elsewhere; E03.9 Hypothyroidism, unspecified; N40.0 Benign prostatic hyperplasia without lower urinary tract symptoms; Z76.5 Malingerer [conscious simulation]; E87.70 Fluid overload, unspecified
CPT/HCPCS: 36415; 71045; 80048; 80053; 82962; 83605; 83735; 84484; 85025; 85610; 85730; 87040; 87075; 87081; 87340; 90935; 93005; 97162; 99285; J0692; J1644; J2270